=== PATIENT | female | born 1935 | race Caucasian/White ===

== ENCOUNTER 2016-06-29 21:27 | Inpatient (IN) | payer OTHER ==
[2016-06-29 22:00] VITALS: BMI 24.0
[2016-06-29 23:18] LABS: BASOPHIL 0.2 % (0-2.0); EOSINOPHIL 0.1 % (0-4.5); MCH 30.5 pg (25.7-33.7); MCHC 31.8 g/dl (32.0-36.0); MEAN CELL VOLUME 95.8 fl (80-96); MEAN PLT VOLUME 8.1 fl (7.5-11.1); NEUTROPHILS 76.8 % (42.8-82.8); PLATELET COUNT 431 K/MM3 (134-434); RDW 16.5 % (11.6-15.6); WHITE BLOOD COUNT 16.3 K/mm3 (4.0-10.0)
[2016-06-29 23:50] LABS: BILIRUBIN,TOTAL 0.3 mg/dL (0.2-1.0); CALCIUM 8.6 mg/dL (8.5-10.1); CREATININE 2.2 mg/dL (0.55-1.02); TOT PROT 7.7 g/dl (6.4-8.2)
[2016-06-29 23:56] LABS: C-REACTIVE PROTEIN 22.4 MG/DL (0.00-0.3)
[2016-06-30 00:54] LABS: ARTERIAL BLD GAS O2 SATURATION 97.9 % (90-98.9); ARTERIAL BLOOD GAS BASE EXCESS 2.4 meq/l (-2-2); ARTERIAL BLOOD GAS HCO3 26.3 meq/L (22-26); ARTERIAL BLOOD GAS PO2 93.3 mmHg (70-100); ARTERIAL BLOOD GAS pH 7.43 (7.35-7.45)
[2016-06-30 00:55] LABS: METHEMOGLOBIN 0.2 % (0.4-1.5)
[2016-06-30 00:56] LABS: ALLENS TEST POSITIVE; ART PUNCT SITE LEFT RADIAL; LPM/O2% 100%; PT. ON O2? YES; TYPE OF O2 NONREBREATHER
[2016-06-30 01:00] LABS: URINE APPEARANCE TURBID; URINE BILIRUBIN NEGATIVE (NEGATIVE); URINE BLOOD NEGATIVE (NEGATIVE); URINE COLOR YELLOW; URINE GLUCOSE (UA) 3+ (NEGATIVE); URINE KETONE NEGATIVE (NEGATIVE); URINE NITRITE NEGATIVE (NEGATIVE); URINE UROBILINOGEN NEGATIVE E.U./dl (0.2-1.0)
[2016-06-30 01:22] LABS: URINE LEUK ESTERASE 3+ (NEGATIVE); URINE PROTEIN 2+ (NEGATIVE)
[2016-06-30] MEDS ORDERED: LEVOFLOXACIN 750 MG IVPB 150 ML IVPB ONE ×2 (01:27→02:51)
[2016-06-30 02:07] LABS: URINE BACTERIA MANY /hpf (NONE SEEN); URINE RBC 61 /hpf (0-3); URINE WBC 2656 /hpf (3-5); YEAST FEW
--- NOTE | 2016-06-30 02:31 | PDOC ---
History of Present Illness - General Chief Complaint: SIRS, Suspected/Possible Stated Complaint: FEVER Time Seen by Provider: 06/29/16 21:56 History Source: EMS Exam Limitations: Clinical Condition - History of Present Illness Initial Comments: 06/30/16 02:27 80yo Female patient with extensive medical history which includes HTN, DM, HLD, GERD presents to ED via EMS from [facility]. Staff c/o fever 102.0 and hypoxia. Patient allegedly desaturated at nursing facility from high 90's to low 80s. Patient was put on O2 at 8Lpm, given Tylenol 650mg po and sent to ED for evaluation. Past History - Travel Traveled outside of the country in the last 30 days: No Close contact w/someone who was outside of country & ill: No - Past Medical History Allergies/Adverse Reactions: Allergies Allergy/AdvReac Type Severity Reaction Status Date / Time No Known Drug Allergies Allergy Verified 06/29/16 21:53 Home Medications: Ambulatory Orders Ascorbate Calcium [Vitamin C] 500 mg PO TID 03/24/16 Escitalopram Oxalate [Lexapro -] 10 mg PO DAILY 03/24/16 Metoprolol Succinate [Toprol XL -] 25 mg PO DAILY 03/24/16 Mirtazapine [Remeron -] 30 mg PO DAILY 03/24/16 Olanzapine [Zyprexa] 5 mg PO BID 03/24/16 Omeprazole 20 mg PO DAILY 03/24/16 Sennosides [Senna] 17.2 mg PO HS 03/24/16 Simvastatin 20 mg PO DAILY 03/24/16 Tamsulosin HCl [Flomax -] 0.4 mg PO DAILY 03/24/16 Vit B Cmplx 3/FA/Vit C/Biotin [Nephro-Rafael Rx Tablet] 1 each PO DAILY 03/24/16 Albuterol 2.5/Ipratropium 0.5 [Duoneb -] 1 amp NEB Q6H PRN #0 amp 04/20/16 Amino Acids/Protein Hydrolys [Prostat Sugar-Free Packet -] 30 ml PO BID@0800, 1730 packet 04/20/16 FENTANYL 12mcg PATCH [DURAGESIC 12mcg PATCH -] 1 patch TD Q72H patch.td72 MDD 1 04/20/16 Heparin - 5,000 unit SQ BID vial 04/20/16 Insulin Sliding Scale [Novolog Vial Sliding Scale -] 1 vial SQ ACHS units 04/20 Levofloxacin [Levaquin -] 250 mg PO DAILY tablet 04/20/16 Naph,Mb-Db/K pH,Mbdb [PHOS-NaK PACKET -] 1 packet PO BID pow 04/20/16 Oxycodone HCl [Roxicodone -] 5 mg PO BID PRN #0 tablet MDD 2 04/20/16 Sodium Bicarbonate - 650 mg PO BID tablet 04/20/16 Zinc Sulfate [Orazinc -] 220 mg PO DAILY capsule 04/20/16 Anemia: Yes Asthma: No Cancer: No Cardiac Disorders: No CVA: Yes COPD: No CHF: Yes Dementia: Yes Diabetes: Yes (iddm) GI Disorders: Yes HTN: Yes Hypercholesterolemia: Yes Kidney Stones: No (acute kidney failure) Psychiatric Problems: Yes (anxeity,agitation,depression) Seizures: No Thyroid Disease: Yes - Reproductive History Ectopic : No Polycystic Ovaries: No - Psycho/Social/Smoking Cessation Hx Anxiety: No Suicidal Ideation: No Smoking Status: No Smoking History: Never smoked Have you smoked in the past 12 months: No Number of Cigarettes Smoked Daily: 0 Information on smoking cessation initiated: No Hx Alcohol Use: No Drug/Substance Use Hx: No Substance Use Type: None Hx Substance Use Treatment: No Respiratory Specific PMHX - Complaint Specific PMHX Angina: No Bronchitis: No Pneumonia: Yes Pulmonary Embolus: No TB (Tuberculosis): No Review of Systems - Review of Systems Able to Perform ROS?: Yes Is the patient limited Albanian proficient: No Constitutional: Yes: Chills, Fever Respiratory: Yes: Cough. No: Shortness of Breath, Wheezing, Productive cough Cardiac (ROS): No: Chest Pain, Edema, Lightheadedness, Palpitations, Syncope, Chest Tightness ABD/GI: No: Diarrhea, Nausea, Vomiting : No: Dysuria Integumentary: No: Bruising, Erythema Neurological: No: Headache, Seizure, Dizziness All Other Systems: Reviewed and Negative *Physical Exam - Vital Signs Last Vital Signs Temp Pulse Resp BP Pulse Ox 99.2 F 101 H 16 127/61 97 06/29/16 21:53 06/29/16 21:53 06/29/16 21:53 06/29/16 21:53 06/29/16 21:53 - Physical Exam General Appearance: Yes: Moderate Distress. No: Apparent Distress, Mild Distress, Severe Distress Respiratory/Chest: positive: Rhonchi. negative: Respiratory Distress, Accessory Muscle Use, Labored Respiration, Rapid RR Cardiovascular: positive: Regular Rhythm, Regular Rate. negative: Edema, JVD, Murmur Gastrointestinal/Abdominal: positive: Normal Bowel Sounds, Soft. negative: Distended, Guarding, Rebound, Tenderness Musculoskeletal: positive: Normal Inspection. negative: CVA Tenderness Extremity: positive: Other (Bilateral BKA) Integumentary: positive: Dry, Warm, Pale Neurologic: positive: Alert ED Treatment Course - LABORATORY CBC & Chemistry Diagram: 06/29/16 22:40 06/29/16 22:40 - ADDITIONAL ORDERS Additional order review: Laboratory Results 06/30/16 06/30/16 06/29/16 00:49 00:43 22:40 Puncture Site Left radial ABG pH 7.43 ABG pCO2 at Pt Temp 40.2 ABG pO2 at Pt Temp 93.3 ABG HCO3 26.3 H ABG O2 Sat (Measured) 97.9 ABG O2 Content 12.4 L ABG Base Excess 2.4 H Alessandro Test Positive Carboxyhemoglobin 1.7 Methemoglobin 0.2 L O2 Delivery Device Nonrebreather Oxygen Flow Rate 100% PEEP 0.0 Sodium 145 Potassium 5.5 H D Chloride 107 Carbon Dioxide 28 D Anion Gap 10 BUN 58 H D Creatinine 2.2 H D Creat Clearance w eGFR 21.53 Random Glucose 480 H* D Lactic Acid Calcium 8.6 Total Bilirubin 0.3 D AST 18 D ALT 17 D Alkaline Phosphatase 125 H D C-Reactive Protein 22.4 H D Total Protein 7.7 D Albumin 2.0 L D Urine Color Yellow Urine Appearance Turbid Urine pH 6.0 Ur Specific [place] 1.013 Urine Protein 2+ H Urine Glucose (UA) 3+ H Urine Ketones Negative Urine Blood Negative Urine Nitrite Negative Urine Bilirubin Negative Urine Urobilinogen Negative Ur Leukocyte Esterase 3+ H 06/29/16 22:31 Puncture Site ABG pH ABG pCO2 at Pt Temp ABG pO2 at Pt Temp ABG HCO3 ABG O2 Sat (Measured) ABG O2 Content ABG Base Excess Alessandro Test Carboxyhemoglobin Methemoglobin O2 Delivery Device Oxygen Flow Rate PEEP Sodium Potassium Chloride Carbon Dioxide Anion Gap BUN Creatinine Creat Clearance w eGFR Random Glucose Lactic Acid 1.126 Calcium Total Bilirubin AST ALT Alkaline Phosphatase C-Reactive Protein Total Protein Albumin Urine Color Urine Appearance Urine pH Ur Specific [place] Urine Protein Urine Glucose (UA) Urine Ketones Urine Blood Urine Nitrite Urine Bilirubin Urine Urobilinogen Ur Leukocyte Esterase 06/29/16 22:40 RBC 2.74 L MCV 95.8 MCHC 31.8 L RDW 16.5 H D MPV 8.1 Neutrophils % 76.8 Lymphocytes % 18.7 Monocytes % 4.2 Eosinophils % 0.1 D Basophils % 0.2 D - RADIOLOGY Radiology Studies Ordered: Category Date Time Status CHEST X-RAY PORTABLE* [RAD] Stat Radiology 06/29/16 22:14 Taken *DC/Admit/Observation/Transfer Diagnosis at time of Disposition: Pneumonia Qualifiers: Pneumonia type: due to unspecified organism Laterality: left Lung location: lower lobe of lung Qualified Code(s): J18.1 - Lobar pneumonia, unspecified organism UTI (urinary tract infection) Qualifiers: Urinary tract infection type: acute cystitis Hematuria presence: without hematuria Qualified Code(s): N30.00 - Acute cystitis without hematuria - Discharge Dispostion Condition at time of disposition: Fair Admit: Yes
--- NOTE | 2016-06-30 02:49 | PDOC ---
*Physical Exam - Vital Signs Last Vital Signs Temp Pulse Resp BP Pulse Ox 99.2 F 101 H 16 127/61 97 06/29/16 21:53 06/29/16 21:53 06/29/16 21:53 06/29/16 21:53 06/29/16 21:53 ED Treatment Course - LABORATORY CBC & Chemistry Diagram: 06/29/16 22:40 06/29/16 22:40 - ADDITIONAL ORDERS Additional order review: Laboratory Results 06/30/16 06/30/16 06/29/16 00:49 00:43 22:40 Puncture Site Left radial ABG pH 7.43 ABG pCO2 at Pt Temp 40.2 ABG pO2 at Pt Temp 93.3 ABG HCO3 26.3 H ABG O2 Sat (Measured) 97.9 ABG O2 Content 12.4 L ABG Base Excess 2.4 H Alessandro Test Positive Carboxyhemoglobin 1.7 Methemoglobin 0.2 L O2 Delivery Device Nonrebreather Oxygen Flow Rate 100% PEEP 0.0 Sodium 145 Potassium 5.5 H D Chloride 107 Carbon Dioxide 28 D Anion Gap 10 BUN 58 H D Creatinine 2.2 H D Creat Clearance w eGFR 21.53 Random Glucose 480 H* D Lactic Acid Calcium 8.6 Total Bilirubin 0.3 D AST 18 D ALT 17 D Alkaline Phosphatase 125 H D C-Reactive Protein 22.4 H D Total Protein 7.7 D Albumin 2.0 L D Urine Color Yellow Urine Appearance Turbid Urine pH 6.0 Ur Specific [place] 1.013 Urine Protein 2+ H Urine Glucose (UA) 3+ H Urine Ketones Negative Urine Blood Negative Urine Nitrite Negative Urine Bilirubin Negative Urine Urobilinogen Negative Ur Leukocyte Esterase 3+ H 06/29/16 22:31 Puncture Site ABG pH ABG pCO2 at Pt Temp ABG pO2 at Pt Temp ABG HCO3 ABG O2 Sat (Measured) ABG O2 Content ABG Base Excess Alessandro Test Carboxyhemoglobin Methemoglobin O2 Delivery Device Oxygen Flow Rate PEEP Sodium Potassium Chloride Carbon Dioxide Anion Gap BUN Creatinine Creat Clearance w eGFR Random Glucose Lactic Acid 1.126 Calcium Total Bilirubin AST ALT Alkaline Phosphatase C-Reactive Protein Total Protein Albumin Urine Color Urine Appearance Urine pH Ur Specific [place] Urine Protein Urine Glucose (UA) Urine Ketones Urine Blood Urine Nitrite Urine Bilirubin Urine Urobilinogen Ur Leukocyte Esterase 06/29/16 22:40 RBC 2.74 L MCV 95.8 MCHC 31.8 L RDW 16.5 H D MPV 8.1 Neutrophils % 76.8 Lymphocytes % 18.7 Monocytes % 4.2 Eosinophils % 0.1 D Basophils % 0.2 D Medical Decision Making - Medical Decision Making 06/30/16 02:49 agree with care from [facility] *DC/Admit/Observation/Transfer Diagnosis at time of Disposition: Pneumonia, UTI (urinary tract infection) - Discharge Dispostion Condition at time of disposition: Fair
[2016-06-30] MEDS ORDERED: CEFTRIAXONE 2 GM in DEXTROSE 5%-WATER - 100 ML IVPB ONE (02:53)
[2016-06-30] MEDS ORDERED: ACETAMINOPHEN 650 MG SUPP.RECT PR ONE (02:53)
[2016-06-30] MEDS ORDERED: CEFTRIAXONE 100 ML IVPB ONE (04:01)
[2016-06-30] MEDS ORDERED: ACETAMINOPHEN 650 MG SUPP.RECT ONE ×2 (04:02→14:46)
[2016-06-30] MEDS ORDERED: oxyCODONE HCL 5 MG TABLET PO PRN (08:22)
[2016-06-30] MEDS ORDERED: ALBUTEROL SO4 2.5/IPRATROPIUM 0.5 INH SOL 3 ML VIAL.NEB. NEB PRN (08:22)
[2016-06-30] MEDS ORDERED: ACETAMINOPHEN 325 MG TABLET (FP) PO PRN (08:25)
--- NOTE | 2016-06-30 08:39 | HP ---
Admitting History and Physical - Admission History of Present Illness: 80yo Female patient with extensive medical history which includes HTN, DM, HLD, GERD presents to ED via EMS from [facility]. Staff c/o fever 102.0 and hypoxia. Patient allegedly desaturated at nursing facility from high 90's to low 80s. Patient was put on O2 at 8Lpm, given Tylenol 650mg po and sent to ED for evaluation. 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 Cardiovascular: Yes: CHF, HTN, Hyperlipdemia Pulmonary: Yes: COPD Gastrointestinal: Yes: GERD Renal/: Yes: Renal Inusuff Heme/Onc: Yes: Anemia Endocrine: Yes: Diabetes Mellitus - Smoking History Smoking history: Never smoked Have you smoked in the past 12 months: No Aproximately how many cigarettes per day: 0 - Alcohol/Substance Use Hx Alcohol Use: No - Social History History of Recent Travel: No Home Medications - Allergies Allergies/Adverse Reactions: Allergies Allergy/AdvReac Type Severity Reaction Status Date / Time No Known Drug Allergies Allergy Verified 06/29/16 21:53 - Home Medications Home Medications: Ambulatory Orders Ascorbate Calcium [Vitamin C] 500 mg PO TID 03/24/16 Mirtazapine [Remeron -] 30 mg PO DAILY 03/24/16 Omeprazole 20 mg PO DAILY 03/24/16 Sennosides [Senna] 17.2 mg PO HS 03/24/16 Simvastatin 20 mg PO DAILY 03/24/16 Tamsulosin HCl [Flomax -] 0.8 mg PO DAILY 03/24/16 Amino Acids/Protein Hydrolys [Prostat Sugar-Free Packet -] 30 ml PO BID@0800, 1730 packet 04/20/16 Sodium Bicarbonate - 650 mg PO BID tablet 04/20/16 Zinc Sulfate [Orazinc -] 220 mg PO DAILY capsule 04/20/16 Acetaminophen [Tylenol] 650 mg PO Q4H PRN 06/30/16 Collagenase Clostridium Hist. [Santyl -] 1 applic TP DAILY 06/30/16 Darbepoetin Joseph in Polysorbat [Aranesp] 25 mcg SQ TH 06/30/16 Ferrous Sulfate [Feosol] 325 mg PO TID 06/30/16 Insulin Glargine,Hum.rec.anlog [Lantus Solostar PEN -] 12 units SQ 0900 Albuterol 0.083% Nebulizer Elena [Ventolin 0.083% Nebulizer Soln -] 1 amp NEB QIDR amp 07/19/16 Bacitracin - [Bacitracin Topical Ointment -] 1 applic TP DAILY tube 07/19/16 Enoxaparin [Lovenox -] 50 mg SQ BID #60 mg 07/19/16 Insulin (Levemir) [Levemir Vial] 8 units SQ HS ml 07/19/16 Insulin Sliding Scale [Novolog Vial Sliding Scale -] 1 vial SQ ACHS units 07/19 Ipratropium 0.02% Nebulizer [Atrovent 0.02% Nebulizer -] 1 amp NEB Q6HPO amp Metoclopramide Oral Soln [Reglan Oral Solution -] 5 mg GT TIDAC #0 tab 07/19/16 Metoprolol Tartrate [Lopressor -] 50 mg GT BID #0 tablet 07/19/16 Metronidazole [Flagyl -] 500 mg PEG TID #0 tablet 07/19/16 Olanzapine [Zyprexa -] 5 mg GT BID #60 tablet 07/19/16 Physical Examination Vital Signs: Vital Signs Temperature 98.9 F 06/30/16 07:30 Pulse Rate 104 H 06/30/16 07:30 Respiratory Rate 19 06/30/16 07:30 Blood Pressure 134/102 06/30/16 07:30 O2 Sat by Pulse Oximetry (%) 100 06/30/16 07:30 Cardiovascular: Yes: Tachycardia, S1, S2 Respiratory: Yes: Diminished, Rhonchi Gastrointestinal: Yes: Normal Bowel Sounds, Soft Extremities: Yes: Amputation Neurological: Yes: Alert, Confusion Imaging - Results Chest X-ray: Report Reviewed Problem List - Problems (1) Pneumonia Assessment/Plan: F/U CXR ABX Code(s): J18.9 - PNEUMONIA, UNSPECIFIED ORGANISM Qualifiers: Qualified Code(s): J18.1 - Lobar pneumonia, unspecified organism (2) Fever Assessment/Plan: CULTURES ABX Code(s): R50.9 - FEVER, UNSPECIFIED (3) UTI (urinary tract infection) Assessment/Plan: ABX CULTURES Code(s): N39.0 - URINARY TRACT INFECTION, SITE NOT SPECIFIED Qualifiers: Qualified Code(s): N30.00 - Acute cystitis without hematuria (4) CKD (chronic kidney disease) Assessment/Plan: MONITOR Code(s): N18.9 - CHRONIC KIDNEY DISEASE, UNSPECIFIED (5) S/P bilateral below knee amputation Assessment/Plan: MONITOR Code(s): Z89.512 - ACQUIRED ABSENCE OF LEFT LEG BELOW KNEE Z89.511 - ACQUIRED ABSENCE OF RIGHT LEG BELOW KNEE (6) Decubitus ulcer Assessment/Plan: SACRAL--STAGE IV wound care on abx Code(s): L89.90 - PRESSURE ULCER OF UNSPECIFIED SITE, UNSPECIFIED STAGE
[2016-06-30] MEDS ORDERED: SODIUM CHLORIDE 0.45% 1,000 ML IV SCH (08:45)
[2016-06-30] MEDS: fentaNYL 12mcg/hr PATCH.TD72 TD SCH (08:55)
[2016-06-30] MEDS ORDERED: VANCOMYCIN 1,000 MG in DEXTROSE 5%-WATER - 250 ML IVPB ONE (09:08)
[2016-06-30] MEDS: ACETAMINOPHEN 650 MG SUPP.RECT PR PRN ×2 (09:10→15:05)
[2016-06-30] MEDS ORDERED: MEROPENEM 500 MG VIAL (RESTRICTED TO ID) IVPB SCH (09:15)
[2016-06-30] MEDS ORDERED: FENTANYL PATCH WASTE TD PRN (09:29)
--- NOTE | 2016-06-30 09:29 | PN ---
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 (short form) - Note 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: ID consult dictated fever sepsis GIANNI secondary to UTI infected sacral ulcer based on prior cultures vancomycin doripenem cultures blood and urine surgical consult for infected sacral ulcer renal sonogram Problem List - Problems (1) Sepsis Code(s): A41.9 - SEPSIS, UNSPECIFIED ORGANISM Qualifiers: Sepsis type: Escherichia coli Qualified Code(s): A41.51 - Sepsis due to Escherichia coli [E. coli] (2) UTI (urinary tract infection) Code(s): N39.0 - URINARY TRACT INFECTION, SITE NOT SPECIFIED Qualifiers: Urinary tract infection type: acute cystitis Hematuria presence: without hematuria Qualified Code(s): N30.00 - Acute cystitis without hematuria (3) Infected decubitus ulcer Code(s): L89.90 - PRESSURE ULCER OF UNSPECIFIED SITE, UNSPECIFIED STAGE
[2016-06-30] MEDS: MEROPENEM 500 MG in DEXTROSE 5%-WATER - 100 ML IVPB SCH ×2 (09:40→22:34)
[2016-06-30] MEDS ORDERED: PIPERACILLIN/TAZOB 3.375 GM/50 ML PRE-DOCKED IVPB SCH (10:00)
[2016-06-30] MEDS: TAMSULOSIN HCL 0.4 MG CAP.ER.24H (FP) PO SCH (10:34)
[2016-06-30] MEDS: PANTOPRAZOLE 20 MG TABLET (FP) PO SCH (10:35)
[2016-06-30] MEDS: SODIUM BICARBONATE 650 MG TABLET PO SCH ×2 (10:35→22:35)
[2016-06-30] MEDS: ZINC SULFATE 220 MG CAPSULE (FP) PO SCH (10:35)
[2016-06-30] MEDS: METOPROLOL SUCCINATE 25 MG TAB.SR.24H (FP) PO SCH (10:35)
[2016-06-30] MEDS: OLANZapine 5 MG TABLET PO SCH ×2 (10:36→22:35)
[2016-06-30] MEDS: HEPARIN NA (PORCINE) 5,000 UNITS/ML 1ML VIAL SQ SCH ×2 (10:40→22:34)
[2016-06-30] MEDS: IPRATROPIUM BR 0.02% 0.5 MG/2.5 ML VIAL.NEB. NEB SCH ×2 (12:05→18:41)
[2016-06-30] MEDS: ALBUTEROL SO4 0.083% IH SOL 2.5 MG/3 ML VIAL.NEB. NEB SCH ×2 (12:05→18:41)
[2016-06-30] MEDS ORDERED: ALBUTEROL SO4 2.5/IPRATROPIUM 0.5 INH SOL 3 ML VIAL.NEB. NEB ONE (12:06)
[2016-06-30] MEDS: ASCORBIC ACID 500 MG TABLET (FP) PO SCH ×2 (14:17→22:35)
--- NOTE | 2016-06-30 16:30 | CON.PULM ---
Consult Consult Specialty:: PULMONARY Referred by:: SADE Reason for Consultation:: FEVER/HYPOXEMIA - History of Present Illness History of Present Illness: 80yo Female patient with extensive medical history which includes HTN, DM, HLD, GERD presents to ED via EMS from [facility]. Staff c/o fever 102.0 and hypoxia. Patient allegedly desaturated at nursing facility from high 90's to low 80s. Patient was put on O2 at 8Lpm, given Tylenol 650mg po and sent to ED for evaluation. 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 Cardio/Vascular: Yes: CHF, HTN, Hyperlipdemia Pulmonary: Yes: COPD Gastrointestinal: Yes: GERD Renal/: Yes: Renal Inusuff Heme/Onc: Yes: Anemia Endocrine: Yes: Diabetes Mellitus - Alcohol/Substance Use Hx Alcohol Use: No - Smoking History Smoking history: Never smoked Have you smoked in the past 12 months: No Aproximately how many cigarettes per day: 0 - Social History Usual Living Arrangement: Correction History of Recent Travel: No Home Medications - Allergies Allergies/Adverse Reactions: Allergies Allergy/AdvReac Type Severity Reaction Status Date / Time No Known Drug Allergies Allergy Verified 06/29/16 21:53 - Home Medications Home Medications: Ambulatory Orders Ascorbate Calcium [Vitamin C] 500 mg PO TID 03/24/16 Escitalopram Oxalate [Lexapro -] 10 mg PO DAILY 03/24/16 Metoprolol Succinate [Toprol XL -] 25 mg PO DAILY 03/24/16 Mirtazapine [Remeron -] 30 mg PO DAILY 03/24/16 Olanzapine [Zyprexa] 5 mg PO BID 03/24/16 Omeprazole 20 mg PO DAILY 03/24/16 Sennosides [Senna] 17.2 mg PO HS 03/24/16 Simvastatin 20 mg PO DAILY 03/24/16 Tamsulosin HCl [Flomax -] 0.4 mg PO DAILY 03/24/16 Vit B Cmplx 3/FA/Vit C/Biotin [Nephro-Rafael Rx Tablet] 1 each PO DAILY 03/24/16 Albuterol 2.5/Ipratropium 0.5 [Duoneb -] 1 amp NEB Q6H PRN #0 amp 01/24/17 Amino Acids/Protein Hydrolys [Prostat Sugar-Free Packet -] 30 ml PO BID@0800, 1730 packet 04/20/16 FENTANYL 12mcg PATCH [DURAGESIC 12mcg PATCH -] 1 patch TD Q72H patch.td72 MDD 1 04/20/16 Insulin Sliding Scale [Novolog Vial Sliding Scale -] 1 vial SQ ACHS units 04/20 Levofloxacin [Levaquin -] 250 mg PO DAILY tablet 04/20/16 Naph,Mb-Db/K pH,Mbdb [PHOS-NaK PACKET -] 1 packet PO BID pow 04/20/16 Oxycodone HCl [Roxicodone -] 5 mg PO BID PRN #0 tablet MDD 2 04/20/16 Sodium Bicarbonate - 650 mg PO BID tablet 04/20/16 Zinc Sulfate [Orazinc -] 220 mg PO DAILY capsule 04/20/16 Family Disease History - Family Disease History Family History: Unable to Obtain Review of Systems Unable to obtain ROS, reason: UNABLE Physical Exam Vital Sings: Vital Signs Temperature 102.7 F H 06/30/16 15:02 Pulse Rate 114 H 06/30/16 15:02 Respiratory Rate 23 06/30/16 15:02 Blood Pressure 122/55 06/30/16 15:02 O2 Sat by Pulse Oximetry (%) 99 06/30/16 15:02 Constitutional: Yes: Cachectic, Moderate Distress, Thin Eyes: Yes: EOM Intact HENT: Yes: Normocephalic Neck: Yes: Trachea Midline Cardiovascular: Yes: Tachycardia, Murmur (holosystolic murmur), S1, S2 Respiratory: Yes: Rhonchi (scattered bilaterally) Gastrointestinal: Yes: Soft Extremities: Yes: Amputation (bilateral bka with granulation tissue noted on left stump) Neurological: Yes: Other (poorly responsive) Labs: ABG Results ABG pH 7.43 (7.35-7.45) 06/30/16 00:43 ABG pCO2 at Pt Temp 40.2 mmHg (35-45) 06/30/16 00:43 ABG pO2 at Pt Temp 93.3 mmHg (70-100) 06/30/16 00:43 ABG HCO3 26.3 meq/L (22-26) H 06/30/16 00:43 ABG O2 Sat (Measured) 97.9 % (90-98.9) 06/30/16 00:43 ABG O2 Content 12.4 % vol (15-22) L 06/30/16 00:43 ABG Base Excess 2.4 meq/l (-2-2) H 06/30/16 00:43 rest reviewed Imaging - Results Chest X-ray: Image Reviewed EKG: Report Reviewed Problem List - Problems (1) Infected decubitus ulcer Code(s): L89.90 - PRESSURE ULCER OF UNSPECIFIED SITE, UNSPECIFIED STAGE (2) Pneumonia Code(s): J18.9 - PNEUMONIA, UNSPECIFIED ORGANISM Qualifiers: Pneumonia type: due to unspecified organism Laterality: left Lung location: lower lobe of lung Qualified Code(s): J18.1 - Lobar pneumonia, unspecified organism (3) UTI (urinary tract infection) Code(s): N39.0 - URINARY TRACT INFECTION, SITE NOT SPECIFIED Qualifiers: Urinary tract infection type: acute cystitis Hematuria presence: without hematuria Qualified Code(s): N30.00 - Acute cystitis without hematuria (4) ARF (acute renal failure) Code(s): N17.9 - ACUTE KIDNEY FAILURE, UNSPECIFIED Qualifiers: Acute renal failure type: unspecified Qualified Code(s): N17.9 - Acute kidney failure, unspecified (5) Altered mental status Code(s): R41.82 - ALTERED MENTAL STATUS, UNSPECIFIED (6) Anemia Code(s): D64.9 - ANEMIA, UNSPECIFIED Qualifiers: Anemia type: iron deficiency Assessment/Plan LIKELY DECUBITI/ SOURCE FOR SEPSIS LESS LIKELY FACILITY ACQUIRED PNEUMONIA MULTIPLE MEDICAL PROBLEMS OUTLINED AGREE WITH PANCULTURE ANTIBIOTICS O2 SUPPLEMENTATION/KEEP SAT GREATER THAN 90% WOUND CARE/BRONCHODILATORS REQUIRED WILL FOLLOW THANK YOU Racheal ULND MD
[2016-06-30] MEDS: AMINO ACIDS/PROTEIN HYDROLYS 30 ML LIQUID.PKT PO SCH (18:38)
[2016-06-30] MEDS: IBUPROFEN 800 MG/8 ML IJ IVPB PRN (18:43)
--- NOTE | 2016-06-30 19:09 | CONS ---
DATE OF CONSULTATION: DATE OF DICTATION: 06/30/2016 INFECTIOUS DISEASE CONSULTATION REQUESTING PHYSICIAN: Rashawn Garcia M.D. CONSULTING PHYSICIAN: Kaylee Peters M.D. HISTORY: The patient was seen in the emergency room. History was from the emergency room chart and from the senior care transfer records. 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 She was discharged to the senior care April 20. She has been there since that time per the senior care records that were sent. She was recently started on Levaquin on the at the senior care for possible pneumonia. She is now transferred with fever and hypoxia. Chest x-ray was done in the emergency room which was unremarkable. There was no left-sided atelectasis. Right lung was unchanged from March. She had a Gonzales catheter placed and was noted to have pyuria. This was all early this morning. She was given Rocephin and Levaquin in the emergency room. I am asked to see her for a fever. She is quite hot when I saw her. I asked them to repeat her temperature which was 103. She is hemodynamically stable. She is unable to give any history at this time. ALLERGIES: She has no known drug allergies. MEDICATION: Her medications from the senior care includes oral Levaquin as well as Orazinc, vitamin B complex, Nephro-Rafael, Flomax, sodium bicarbonate, simvastatin , senna, oxycodone, omeprazole, Zyprexa, Remeron, Toprol XL, insulin, fentanyl patch, lexapro, and albuterol nebulizer. PAST MEDICAL HISTORY: Notable for history of diabetes, dementia, congestive heart failure, hypertension, stroke, GERD, chronic renal insufficiency. She underwent debridement of necrotic ulcers March 30, 2016. On April 07, 2016, she had a left BKA done, and then April 14 she underwent washout of the left BKA and a right BKA. FAMILY HISTORY: Noncontributory. SOCIAL HISTORY: She is residing at the senior care. PHYSICAL EXAMINATION: Vital signs: Temperature 103.3 rectally, pulse is 90, blood pressure 135/72, respiratory rate 22. She is saturating 96% on a nonrebreather mask. HEENT: Normocephalic. Eyes are anicteric. She has dry mucosa. Neck: Supple. Lungs: Diminished breath sounds at the bases. Heart: Regular rate and rhythm. Abdomen: Soft. Gonzales is draining purulent material in the bag, there is tremendous sediment. The Gonzales was placed in the emergency room. Her extremities, both BKA sites, one of them on the right side is slightly open, but there is no drainage, there is no associated erythema. LABORATORY: White count 16, hemoglobin 8.3, platelets 431. Her BUN and creatinine are 58 and 2.2; they were 13 and 0.7 when she left. Lactic acid is 1.1 with a glucose of 480. Her urinalysis has 2656 white cells. Her last urine culture prior to being discharged grew an E. coli that was resistant to Levaquin and piperacillin tazobactam. As well the wound culture grew a Morganella. Chest x-ray reveals weak inspiration and bibasilar changes. IMPRESSION: In summary, this is a 80-year-old woman admitted with sepsis on the basis of urinary tract infection when Gonzales was placed she had purulent urine, which I suspect is a source. As well, addendum to the physical exam, she has a stage 3 to stage 4 sacral ulcer that has purulent discharge and appears infected. Blood cultures have been ordered. She received ceftriaxone and Levaquin. I would switch her at this time to doripenem and vancomycin. With the piperacillin tazobactam resistant E. coli, I do have concerns for antibiotic resistance. Would suggest we have surgery, evaluate her for her infected sacral ulcer as well. She also has acute kidney injury and is receiving intravenous fluid hydration. Further recommendations to follow based on her clinical course. KAYLEE PETERS M.D. [id number] DEJA
[2016-06-30] MEDS ORDERED: MIRTAZAPINE 15 MG TABLET (FP) ONE (21:15)
[2016-06-30] MEDS ORDERED: SODIUM CHLORIDE 1,000 ML IV SCH (22:00)
[2016-06-30] MEDS: ATORVASTATIN CA 10 MG TABLET (FP) PO SCH (22:34)
[2016-06-30] MEDS: SENNOSIDES 8.6MG TABLET (FP) PO SCH (22:35)
[2016-06-30] MEDS: MIRTAZAPINE 30 MG TABLET (FP) PO SCH (22:35)
[2016-06-30] MEDS: INSULIN DETEMIR 100 UNITS/ML MDV SQ SCH (23:05)
[2016-06-30] MEDS: INSULIN SLIDING SCALE (NOVOLOG) 1 VIAL SQ SCH (23:09)
--- NOTE | 2016-06-30 23:37 | CONSULT ---
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 EMS: Yes: CVA, Dementia Cardio/Vascular: Yes: CHF, HTN, Hyperlipdemia Pulmonary: Yes: COPD Gastrointestinal: Yes: GERD Renal/: Yes: Renal Inusuff Endocrine: Yes: Diabetes Mellitus - Alcohol/Substance Use Hx Alcohol Use: No - Smoking History Smoking history: Never smoked Have you smoked in the past 12 months: No Aproximately how many cigarettes per day: 0 - Social History Usual Living Arrangement: Senior Care History of Recent Travel: No Home Medications - Allergies Allergies/Adverse Reactions: Allergies Allergy/AdvReac Type Severity Reaction Status Date / Time No Known Drug Allergies Allergy Verified 06/29/16 21:53 - Home Medications Home Medications: Ambulatory Orders Ascorbate Calcium [Vitamin C] 500 mg PO TID 03/24/16 Escitalopram Oxalate [Lexapro -] 10 mg PO DAILY 03/24/16 Metoprolol Succinate [Toprol XL -] 25 mg PO DAILY 03/24/16 Mirtazapine [Remeron -] 30 mg PO DAILY 03/24/16 Olanzapine [Zyprexa] 7.5 mg PO DAILY 03/24/16 Omeprazole 20 mg PO DAILY 03/24/16 Sennosides [Senna] 17.2 mg PO HS 03/24/16 Simvastatin 20 mg PO DAILY 03/24/16 Tamsulosin HCl [Flomax -] 0.8 mg PO DAILY 03/24/16 Vit B Cmplx 3/FA/Vit C/Biotin [Nephro-Rafael Rx Tablet] 1 each PO DAILY 03/24/16 Albuterol 2.5/Ipratropium 0.5 [Duoneb -] 1 amp NEB Q6H PRN #0 amp 04/20/16 Amino Acids/Protein Hydrolys [Prostat Sugar-Free Packet -] 30 ml PO BID@0800, 1730 packet 04/20/16 FENTANYL 12mcg PATCH [DURAGESIC 12mcg PATCH -] 1 patch TD Q72H patch.td72 MDD 1 04/20/16 Insulin Sliding Scale [Novolog Vial Sliding Scale -] 1 vial SQ ACHS units 04/20 Levofloxacin [Levaquin -] 250 mg PO DAILY tablet 04/20/16 Oxycodone HCl [Roxicodone -] 5 mg PO BID PRN #0 tablet MDD 2 04/20/16 Sodium Bicarbonate - 650 mg PO BID tablet 04/20/16 Zinc Sulfate [Orazinc -] 220 mg PO DAILY capsule 04/20/16 Acetaminophen [Tylenol] 650 mg PO Q4H PRN 06/30/16 Collagenase Clostridium Hist. [Santyl -] 1 applic TP DAILY 06/30/16 Darbepoetin Joseph in Polysorbat [Aranesp] 25 mcg SQ TH 06/30/16 Ferrous Sulfate [Feosol] 325 mg PO TID 06/30/16 Insulin Glargine,Hum.rec.anlog [Lantus Solostar PEN (NF)] 7 units SQ HS Insulin Glargine,Hum.rec.anlog [Lantus Solostar PEN (NF)] 12 units SQ 0900 06/30 Menthol/Zinc Oxide [Calmoseptine Ointment] 0 gm TP QID 06/30/16 Potassium Phosphate,Monobasic [K-Phos Original] 500 mg PO DAILY 06/30/16 Prochlorperazine Maleate [Compazine] 5 mg PO BID 06/30/16 Physical Exam Vital Signs: Vital Signs Temperature 102.2 F H 06/30/16 21:44 Pulse Rate 100 H 06/30/16 22:13 Respiratory Rate 22 06/30/16 22:13 Blood Pressure 102/50 06/30/16 22:13 O2 Sat by Pulse Oximetry (%) 99 06/30/16 18:35 Constitutional: Yes: Calm Eyes: Yes: EOM Intact HENT: Yes: Normocephalic Neck: Yes: Trachea Midline Cardiovascular: Yes: Regular Rate and Rhythm Respiratory: Yes: CTA Bilaterally Gastrointestinal: Yes: Normal Bowel Sounds ...Rectal Exam: Yes: Deferred Renal/: Yes: WNL Breast(s): Yes: WNL Musculoskeletal: Yes: WNL, Muscle Weakness Extremities: Yes: WNL Edema: No Peripheral Pulses WNL: Yes Neurological: Yes: Alert, Confusion, Weakness Labs: CBC, BMP 06/30/16 21:49 Assessment/Plan Current Active Problems Infected decubitus ulcer (Acute) Pneumonia (Acute) UTI (urinary tract infection) (Acute) iddm ckd,dehydration hypovolemia insulin ressistant Abnormal Lab Results 06/29/16 06/29/16 06/30/16 22:40 22:40 00:43 WBC 16.3 H D RBC 2.74 L Hgb 8.3 L Hct 26.2 L MCHC 31.8 L RDW 16.5 H D ABG HCO3 26.3 H ABG O2 Content 12.4 L ABG Base Excess 2.4 H Methemoglobin 0.2 L Potassium 5.5 H D BUN 58 H D Creatinine 2.2 H D Random Glucose 480 H* D Alkaline Phosphatase 125 H D C-Reactive Protein 22.4 H D Albumin 2.0 L D Urine Protein Urine Glucose (UA) Ur Leukocyte Esterase 06/30/16 06/30/16 00:49 21:49 WBC RBC Hgb Hct MCHC RDW ABG HCO3 ABG O2 Content ABG Base Excess Methemoglobin Potassium BUN Creatinine Random Glucose 724 H* D Alkaline Phosphatase C-Reactive Protein Albumin Urine Protein 2+ H Urine Glucose (UA) 3+ H Ur Leukocyte Esterase 3+ H plan: bgm qid novolog coverage levemir 15 units bid id wound with iv antibiotics
[2016-07-01] MEDS: ALBUTEROL SO4 0.083% IH SOL 2.5 MG/3 ML VIAL.NEB. NEB SCH ×4 (00:27→18:27)
[2016-07-01] MEDS: IPRATROPIUM BR 0.02% 0.5 MG/2.5 ML VIAL.NEB. NEB SCH ×4 (00:27→18:27)
[2016-07-01] MEDS: ACETAMINOPHEN 1000 MG/100 ML VIAL (NON FORMULARY) IVPB PRN (00:42)
--- NOTE | 2016-07-01 01:32 | CONSULT ---
Consult Consult Specialty:: Pulm/CC - History of Present Illness History of Present Illness: Pt is a 80yr old woman with PMHx including HTN, HLD, DM dementia, GERD, recurrent MDR UTIs, wounds and bilateral BKA. She presents to the ER from [facility] with CC of fever to 102 and hypoxia to 80s/90s. Initial labs notable for WBC 16.3, BUN/Cr 58/2.2 (Cr was 0.7 on 04/20/16) serum glucose 480. Pt initially on the floor for management of urosepsis/sepsis from sacral wound. Request made ~0100 for transfer for hyperglycemia to [facility]. Upon assessment pt is nonverbal, manual BP 72/40, HR 90s (sinus on tele), temp 101.7 rectal s/p 1g IV Tylenol. 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 Cardio/Vascular: Yes: CHF, HTN, Hyperlipdemia Pulmonary: Yes: COPD Gastrointestinal: Yes: GERD Renal/: Yes: Renal Inusuff Endocrine: Yes: Diabetes Mellitus - Alcohol/Substance Use Hx Alcohol Use: No - Smoking History Smoking history: Never smoked Have you smoked in the past 12 months: No Aproximately how many cigarettes per day: 0 - Social History Usual Living Arrangement: Skilled Nursing History of Recent Travel: No Home Medications - Allergies Allergies/Adverse Reactions: Allergies Allergy/AdvReac Type Severity Reaction Status Date / Time No Known Drug Allergies Allergy Verified 06/29/16 21:53 - Home Medications Home Medications: Ambulatory Orders Ascorbate Calcium [Vitamin C] 500 mg PO TID 03/24/16 Escitalopram Oxalate [Lexapro -] 10 mg PO DAILY 03/24/16 Metoprolol Succinate [Toprol XL -] 25 mg PO DAILY 03/24/16 Mirtazapine [Remeron -] 30 mg PO DAILY 03/24/16 Olanzapine [Zyprexa] 7.5 mg PO DAILY 03/24/16 Omeprazole 20 mg PO DAILY 03/24/16 Sennosides [Senna] 17.2 mg PO HS 03/24/16 Simvastatin 20 mg PO DAILY 03/24/16 Tamsulosin HCl [Flomax -] 0.8 mg PO DAILY 03/24/16 Vit B Cmplx 3/FA/Vit C/Biotin [Nephro-Rafael Rx Tablet] 1 each PO DAILY 03/24/16 Albuterol 2.5/Ipratropium 0.5 [Duoneb -] 1 amp NEB Q6H PRN #0 amp 04/20/16 Amino Acids/Protein Hydrolys [Prostat Sugar-Free Packet -] 30 ml PO BID@0800, 1730 packet 04/20/16 FENTANYL 12mcg PATCH [DURAGESIC 12mcg PATCH -] 1 patch TD Q72H patch.td72 MDD 1 04/20/16 Insulin Sliding Scale [Novolog Vial Sliding Scale -] 1 vial SQ ACHS units 04/20 Levofloxacin [Levaquin -] 250 mg PO DAILY tablet 04/20/16 Oxycodone HCl [Roxicodone -] 5 mg PO BID PRN #0 tablet MDD 2 04/20/16 Sodium Bicarbonate - 650 mg PO BID tablet 04/20/16 Zinc Sulfate [Orazinc -] 220 mg PO DAILY capsule 04/20/16 Acetaminophen [Tylenol] 650 mg PO Q4H PRN 06/30/16 Collagenase Clostridium Hist. [Santyl -] 1 applic TP DAILY 06/30/16 Darbepoetin Joseph in Polysorbat [Aranesp] 25 mcg SQ TH 06/30/16 Ferrous Sulfate [Feosol] 325 mg PO TID 06/30/16 Insulin Glargine,Hum.rec.anlog [Lantus Solostar PEN (NF)] 7 units SQ HS Insulin Glargine,Hum.rec.anlog [Lantus Solostar PEN (NF)] 12 units SQ 0900 06/30 Menthol/Zinc Oxide [Calmoseptine Ointment] 0 gm TP QID 06/30/16 Potassium Phosphate,Monobasic [K-Phos Original] 500 mg PO DAILY 06/30/16 Prochlorperazine Maleate [Compazine] 5 mg PO BID 06/30/16 Family Disease History - Family Disease History Family History: Unable to Obtain Review of Systems Unable to obtain ROS, reason: ANGI Physical Exam Vital Signs: Vital Signs Period Temp Pulse Resp BP Sys/Chávez Pulse Ox Last 24 Hr 98.9 F-103.3 F 90-119 19-34 72-149/40-102 96-100 Intake & Output 06/28/16 06/29/16 06/30/16 07/01/16 23:59 23:59 23:59 23:59 Intake Total 800 Output Total 1050 Balance -250 Weight 140 lb 140 lb 0.002 oz Constitutional: Yes: Moderate Distress, Other (diffuse tremors) Eyes: Yes: Other (resistant to exam) HENT: Yes: Atraumatic Cardiovascular: Yes: Murmur (2/6 systolic), S1, S2, Other (pt with rt upper anterior chest firm and palpable mass, possibly metal?) Respiratory: Yes: On Nasal O2, Tachypnea. 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 Now in the ICU for management of septic shock secondary to UTI/sacral wound, GIANNI and hyperglycemia. Pulm: -o2 support for sat >94 -f/u stat abg -f/u repeat chest xray -nebulizers ID: -f/u cultures -ID following -Antibiotics per ID -Isolation precautions -f/u lactic acid -f/u vanc trough Renal: GIANNI, Cr was 0.7 on 04/20 now >2 -IVF as tolerated -Replete electrolytes prn -I/Os -f/u repeat UA Endo: -f/u repeat chemistry pt s/p levemir and novolog -BGM -Glycemic control, possible insulin drip -f/u A1c Cardiac -Pt might need pressors if not responsive to IVF -Hold antihypertensives for now in setting of hypotension -f/u enzymes -Monitor h/h, transfuse prn Neuro -Pain management, pt on 12mcg Fentanyl patch, consider 25mcg as pt appears in significant distress with multiple sources of chronic pain Int: -Wound care Prophylactic -DVT -PPI -Bowel regiment in setting of opioid use
[2016-07-01] MEDS ORDERED: SODIUM CHLORIDE 1,000 ML IV STA (01:46)
[2016-07-01 01:57] LABS: BASOPHIL 0.1 % (0-2.0); MCH 30.5 pg (25.7-33.7); MCHC 30.6 g/dl (32.0-36.0); MEAN CELL VOLUME 99.7 fl (80-96); MEAN PLT VOLUME 8.4 fl (7.5-11.1); NEUTROPHILS 85.4 % (42.8-82.8); PLATELET COUNT 378 K/MM3 (134-434); RDW 17.3 % (11.6-15.6); WHITE BLOOD COUNT 17.4 K/mm3 (4.0-10.0)
[2016-07-01 01:58] LABS: URINE APPEARANCE TURBID; URINE BILIRUBIN NEGATIVE (NEGATIVE); URINE COLOR YELLOW; URINE GLUCOSE (UA) 3+ (NEGATIVE); URINE KETONE TRACE (NEGATIVE); URINE NITRITE NEGATIVE (NEGATIVE); URINE UROBILINOGEN NEGATIVE E.U./dl (0.2-1.0)
[2016-07-01 02:12] LABS: URINE BLOOD 1+ (NEGATIVE); URINE LEUK ESTERASE 3+ (NEGATIVE); URINE PROTEIN 2+ (NEGATIVE)
[2016-07-01 02:14] LABS: URINE BACTERIA MODERATE /hpf (NONE SEEN); URINE RBC 110 /hpf (0-3); URINE WBC 2064 /hpf (3-5)
[2016-07-01 02:15] LABS: INR 1.08 (0.82-1.09); PROTHROMBIN TIME (PATIENT) 11.9 SEC (9.98-11.88)
[2016-07-01 02:23] LABS: ALBUMIN 1.8 g/dl (3.4-5.0); BILIRUBIN,TOTAL 0.2 mg/dL (0.2-1.0); CALCIUM 8.6 mg/dL (8.5-10.1); CREATININE 2.2 mg/dL (0.55-1.02); TOT PROT 7.4 g/dl (6.4-8.2)
[2016-07-01 02:27] LABS: MAGNESIUM 2.5 mg/dL (1.8-2.4); PHOSPHOROUS 3.6 mg/dL (2.5-4.9)
[2016-07-01 02:29] LABS: TROPONIN I 0.06 ng/ml (0.00-0.05)
[2016-07-01] MEDS ORDERED: INSULIN REGULAR 100 UNITS in SODIUM CHLORIDE 99 ML IVPB SCH (02:30)
[2016-07-01] MEDS ORDERED: SODIUM CHLORIDE 0.45% 1,000 ML IV SCH (02:45)
[2016-07-01] MEDS ORDERED: SODIUM CHLORIDE 0.45% 1,000 ML with POTASSIUM CHLORIDE 20 MEQ IVPB SCH (02:45)
[2016-07-01 02:49] LABS: ARTERIAL BLD GAS O2 SATURATION 96.1 % (90-98.9); ARTERIAL BLOOD GAS BASE EXCESS 0.8 meq/l (-2-2); ARTERIAL BLOOD GAS HCO3 25.6 meq/L (22-26); ARTERIAL BLOOD GAS PO2 83.4 mmHg (70-100); ARTERIAL BLOOD GAS pH 7.38 (7.35-7.45)
[2016-07-01 02:50] LABS: ALLENS TEST POSITIVE; ART PUNCT SITE RIGHT BRACHIAL; LPM/O2% 4L; PT. ON O2? YES; TYPE OF O2 NASAL
[2016-07-01] MEDS ORDERED: HEMOQUE TEST 1 EACH EACH ONE (02:58)
[2016-07-01] MEDS ORDERED: SODIUM CHLORIDE 500 ML IV STA (03:15)
--- NOTE | 2016-07-01 04:36 | PN ---
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 (short form) - Note 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: Pt continues to be hypotensive (89/45)despite ~2L IVF since 2199, febrile to 101.4 with lactic acid 1.126 -->4.289. Attempted to reach daughter (next of kin on file Sulma Tong [phone]) x3, no answer for consent for central line placement for pressors. Case discussed with Dr. Garcia who states that the last time he spoke with the pt's family they wanted all interventions and agrees with central line placement.
--- NOTE | 2016-07-01 05:48 | PROC ---
Central Line Insertion Indication: Sepsis, Vasopressor Risks and Benefits Explained: (Placed emergently) Consent on Chart: No Central Line: Triple Lumen Catheter Anesthesia: 1% Lidocaine Sterile Technique: Yes Ultrasound Guided Assistance: Yes Position: Right Internal Jugular Post Insertion: Yes: Bilateral Breath Sounds, Bilateral Chest Expansion, Chest X-Ray Ordered Sterile Dressing Applied: Yes Remarks: + blood flow and flush x3. Unable to reach pt's next of kin on file bowen Tong [phone] (call placed x3, no answer). Case discussed with pt' s admitting provider, Dr. Garcia who agreed with emergent placement.
[2016-07-01] MEDS ORDERED: NOREPINEPHRINE BITARTRATE 4 MG/4 ML ML IV ONE (05:59)
[2016-07-01] MEDS ORDERED: NOREPINEPHRINE BITARTRATE 8,000 MCG in SODIUM CHLORIDE 0.45% 992 ML IV SCH (06:00)
[2016-07-01 06:47] LABS: ALBUMIN 1.7 g/dl (3.4-5.0); CALCIUM 8.3 mg/dL (8.5-10.1)
[2016-07-01 06:52] LABS: BILIRUBIN,TOTAL 0.2 mg/dL (0.2-1.0); CREATININE 1.8 mg/dL (0.55-1.02); TOT PROT 6.6 g/dl (6.4-8.2)
[2016-07-01 06:57] LABS: BASOPHIL 0.2 % (0-2.0); MCH 30.2 pg (25.7-33.7); MCHC 31.6 g/dl (32.0-36.0); MEAN CELL VOLUME 95.6 fl (80-96); NEUTROPHILS 78.2 % (42.8-82.8); PLATELET COUNT 328 K/MM3 (134-434)
[2016-07-01 06:58] LABS: TROPONIN I 0.07 ng/ml (0.00-0.05)
[2016-07-01] MEDS: INSULIN SLIDING SCALE (NOVOLOG) 1 VIAL SQ SCH ×4 (07:00→22:45)
[2016-07-01] MEDS: ASCORBIC ACID 500 MG TABLET (FP) PO SCH ×3 (07:06→22:53)
--- NOTE | 2016-07-01 07:49 | PN ---
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, Physician History of Present Illness: PT REMAINED FEBRILE AND BECAME HYPOTENSIVE AND WITH HYPERGLYCEMIA - Current Medication List Current Medications: Active Medications Acetaminophen (Tylenol Suppository -) 650 mg GA Q6H PRN PRN Reason: FEVER OR PAIN Last Admin: 06/30/16 15:05 Dose: 650 mg Acetaminophen (Ofirmev Injection -) 1,000 mg IVPB Q6H PRN Last Admin: 07/01/16 00:42 Dose: 1,000 mg Albuterol Sulfate (Ventolin 0.083% Nebulizer Soln -) 1 amp NEB Q6HPO LARRY Last Admin: 07/01/16 06:00 Dose: 1 amp Albuterol/Ipratropium (Duoneb -) 1 amp NEB Q6H PRN PRN Reason: SHORTNESS OF BREATH Amino Acids (Prosource No Carb Liquid Pkt) 30 ml PO BID@0800,1730 [facility] Last Admin: 06/30/16 18:38 Dose: Not Given Ascorbic Acid (Vitamin C -) 500 mg PO TID [facility] Last Admin: 07/01/16 07:06 Dose: Not Given Atorvastatin Calcium (Lipitor -) 10 mg PO HS [facility] Last Admin: 06/30/16 22:34 Dose: Not Given Fentanyl (Duragesic 12mcg Patch -) 1 patch TD Q72H [facility] Last Admin: 06/30/16 08:55 Dose: Not Given Heparin Sodium (Porcine) (Heparin -) 5,000 unit SQ BID [facility] Last Admin: 06/30/16 22:34 Dose: 5,000 unit Meropenem 500 mg/ Dextrose 100 mls @ 200 mls/hr IVPB BID [facility] Last Admin: 06/30/16 22:34 Dose: 200 mls/hr Insulin Human Regular 100 (units/ Sodium Chloride) 100 mls @ 6.35 mls/hr IVPB TITR LARRY; 0.1 UNITS/KG/HR PRN Reason: Protocol Last Admin: 07/01/16 02:44 Dose: 7 mls/hr Potassium Chloride 20 meq/ (Sodium Chloride) 1,010 mls @ 150 mls/hr IVPB ASDIR [facility] Last Admin: 07/01/16 03:01 Dose: 150 mls/hr Norepinephrine Bitartrate 8, (000 mcg/ Sodium Chloride) 1,000 mls @ 37.5 mls/ hr IV TITR LARRY; 5 MCG/MIN PRN Reason: Protocol Last Admin: 07/01/16 05:55 Dose: 22.5 mls/hr Ibuprofen (Caldolor Injection -) 400 mg IVPB Q6H PRN PRN Reason: FEVER Last Admin: 06/30/16 18:43 Dose: 400 mg Insulin Aspart (Novolog Vial Sliding Scale -) 1 vial SQ ACHS LARRY PRN Reason: Protocol Last Admin: 06/30/16 23:09 Dose: 14 units Insulin Detemir (Levemir Vial) 15 units SQ BID [facility] Last Admin: 06/30/16 23:05 Dose: 15 units Ipratropium [place] (Atrovent 0.02% Nebulizer -) 1 amp NEB Q6HPO [facility] Last Admin: 07/01/16 06:00 Dose: 1 amp Metoprolol Succinate (Toprol Xl -) 25 mg PO DAILY [facility] Last Admin: 06/30/16 10:35 Dose: Not Given Mirtazapine (Remeron -) 30 mg PO HS [facility] Last Admin: 06/30/16 22:35 Dose: Not Given Miscellaneous (Duragesic Patch Waste) 1 each TD PRN PRN Olanzapine (Zyprexa -) 5 mg PO BID [facility] Last Admin: 06/30/16 22:35 Dose: Not Given Oxycodone HCl (Roxicodone -) 5 mg PO BID PRN PRN Reason: PAIN Pantoprazole Sodium (Protonix -) 20 mg PO DAILY [facility] Last Admin: 06/30/16 10:35 Dose: Not Given Potassium Phos/Sodium Phos (Phos-Nak Packet -) 1 packet PO BID [facility] Senna (Senna -) 1 tab PO HS [facility] Last Admin: 06/30/16 22:35 Dose: Not Given Sodium Bicarbonate (Sodium Bicarbonate -) 650 mg PO BID [facility] Last Admin: 06/30/16 22:35 Dose: Not Given Tamsulosin HCl (Flomax -) 0.4 mg PO DAILY@0830 [facility] Last Admin: 06/30/16 10:34 Dose: Not Given Zinc Sulfate (Orazinc -) 220 mg PO DAILY [facility] Last Admin: 06/30/16 10:35 Dose: Not Given - Objective Vital Signs: Vital Signs Temperature 100.9 F H 07/01/16 06:00 Pulse Rate 101 H 07/01/16 06:00 Respiratory Rate 24 07/01/16 06:00 Blood Pressure 132/53 07/01/16 06:00 O2 Sat by Pulse Oximetry (%) 98 07/01/16 02:03 Cardiovascular: Yes: S1, S2 Respiratory: Yes: Diminished. No: Rales, Wheezes Gastrointestinal: Yes: Normal Bowel Sounds, Soft Extremities: Yes: Amputation Edema: No Wound/Incision: Yes: Other (SACRAL) Labs: CBC, BMP 07/01/16 05:45 07/01/16 05:45 INR, PTT INR 1.08 (0.82-1.09) 07/01/16 01:45 Problem List - Problems (1) Septic shock Assessment/Plan: PROBABLY URINARY SOURCE IVF IV ABX PRESSERS ID ON BOARD Code(s): A41.9 - SEPSIS, UNSPECIFIED ORGANISM R65.21 - SEVERE SEPSIS WITH SEPTIC SHOCK (2) UTI (urinary tract infection) Assessment/Plan: ABX CULTURES ID ON BOARD Code(s): N39.0 - URINARY TRACT INFECTION, SITE NOT SPECIFIED Qualifiers: Urinary tract infection type: acute cystitis Hematuria presence: without hematuria Qualified Code(s): N30.00 - Acute cystitis without hematuria (3) Fever Code(s): R50.9 - FEVER, UNSPECIFIED (4) Pneumonia Assessment/Plan: F/U CXR NOTED--??? PNA ABX Code(s): J18.9 - PNEUMONIA, UNSPECIFIED ORGANISM Qualifiers: Pneumonia type: due to unspecified organism Laterality: left Lung location: lower lobe of lung Qualified Code(s): J18.1 - Lobar pneumonia, unspecified organism (5) CKD (chronic kidney disease) Assessment/Plan: MONITOR Code(s): N18.9 - CHRONIC KIDNEY DISEASE, UNSPECIFIED (6) S/P bilateral below knee amputation Assessment/Plan: MONITOR Code(s): Z89.512 - ACQUIRED ABSENCE OF LEFT LEG BELOW KNEE Z89.511 - ACQUIRED ABSENCE OF RIGHT LEG BELOW KNEE (7) Decubitus ulcer Assessment/Plan: wound care on abx Code(s): L89.90 - PRESSURE ULCER OF UNSPECIFIED SITE, UNSPECIFIED STAGE (8) Anemia Assessment/Plan: REPEAT TRANSFUSE Code(s): D64.9 - ANEMIA, UNSPECIFIED Qualifiers: Anemia type: iron deficiency (9) Diabetes Assessment/Plan: MONITOR B/S ENDO CONSULT Code(s): E11.9 - TYPE 2 DIABETES MELLITUS WITHOUT COMPLICATIONS Qualifiers: Diabetes mellitus type: type 2
--- NOTE | 2016-07-01 07:49 | PN ---
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, Physician Chief Complaint: ID Meropenem day 1 Levophed - Current Medication List Current Medications: Active Medications Acetaminophen (Tylenol Suppository -) 650 mg [place] Q6H PRN PRN Reason: FEVER OR PAIN Last Admin: 06/30/16 15:05 Dose: 650 mg Acetaminophen (Ofirmev Injection -) 1,000 mg IVPB Q6H PRN Last Admin: 07/01/16 00:42 Dose: 1,000 mg Albuterol Sulfate (Ventolin 0.083% Nebulizer Soln -) 1 amp NEB Q6HPO LARRY Last Admin: 07/01/16 06:00 Dose: 1 amp Albuterol/Ipratropium (Duoneb -) 1 amp NEB Q6H PRN PRN Reason: SHORTNESS OF BREATH Amino Acids (Prosource No Carb Liquid Pkt) 30 ml PO BID@0800,1730 [facility] Last Admin: 06/30/16 18:38 Dose: Not Given Ascorbic Acid (Vitamin C -) 500 mg PO TID [facility] Last Admin: 07/01/16 07:06 Dose: Not Given Atorvastatin Calcium (Lipitor -) 10 mg PO HS [facility] Last Admin: 06/30/16 22:34 Dose: Not Given Fentanyl (Duragesic 12mcg Patch -) 1 patch TD Q72H [facility] Last Admin: 06/30/16 08:55 Dose: Not Given Heparin Sodium (Porcine) (Heparin -) 5,000 unit SQ BID [facility] Last Admin: 06/30/16 22:34 Dose: 5,000 unit Meropenem 500 mg/ Dextrose 100 mls @ 200 mls/hr IVPB BID [facility] Last Admin: 06/30/16 22:34 Dose: 200 mls/hr Insulin Human Regular 100 (units/ Sodium Chloride) 100 mls @ 6.35 mls/hr IVPB TITR LARRY; 0.1 UNITS/KG/HR PRN Reason: Protocol Last Admin: 07/01/16 02:44 Dose: 7 mls/hr Potassium Chloride 20 meq/ (Sodium Chloride) 1,010 mls @ 150 mls/hr IVPB ASDIR [facility] Last Admin: 07/01/16 03:01 Dose: 150 mls/hr Norepinephrine Bitartrate 8, (000 mcg/ Sodium Chloride) 1,000 mls @ 37.5 mls/ hr IV TITR LARRY; 5 MCG/MIN PRN Reason: Protocol Last Admin: 07/01/16 05:55 Dose: 22.5 mls/hr Ibuprofen (Caldolor Injection -) 400 mg IVPB Q6H PRN PRN Reason: FEVER Last Admin: 06/30/16 18:43 Dose: 400 mg Insulin Aspart (Novolog Vial Sliding Scale -) 1 vial SQ ACHS LARRY PRN Reason: Protocol Last Admin: 06/30/16 23:09 Dose: 14 units Insulin Detemir (Levemir Vial) 15 units SQ BID [facility] Last Admin: 06/30/16 23:05 Dose: 15 units Ipratropium [place] (Atrovent 0.02% Nebulizer -) 1 amp NEB Q6HPO [facility] Last Admin: 07/01/16 06:00 Dose: 1 amp Metoprolol Succinate (Toprol Xl -) 25 mg PO DAILY [facility] Last Admin: 06/30/16 10:35 Dose: Not Given Mirtazapine (Remeron -) 30 mg PO HS [facility] Last Admin: 06/30/16 22:35 Dose: Not Given Miscellaneous (Duragesic Patch Waste) 1 each TD PRN PRN Olanzapine (Zyprexa -) 5 mg PO BID [facility] Last Admin: 06/30/16 22:35 Dose: Not Given Oxycodone HCl (Roxicodone -) 5 mg PO BID PRN PRN Reason: PAIN Pantoprazole Sodium (Protonix -) 20 mg PO DAILY [facility] Last Admin: 06/30/16 10:35 Dose: Not Given Potassium Phos/Sodium Phos (Phos-Nak Packet -) 1 packet PO BID [facility] Senna (Senna -) 1 tab PO [facility] Last Admin: 06/30/16 22:35 Dose: Not Given Sodium Bicarbonate (Sodium Bicarbonate -) 650 mg PO BID [facility] Last Admin: 06/30/16 22:35 Dose: Not Given Tamsulosin HCl (Flomax -) 0.4 mg PO DAILY@0830 [facility] Last Admin: 06/30/16 10:34 Dose: Not Given Zinc Sulfate (Orazinc -) 220 mg PO DAILY [facility] Last Admin: 06/30/16 10:35 Dose: Not Given - Objective Vital Signs: Vital Signs Temperature 100.9 F H 07/01/16 06:00 Pulse Rate 101 H 07/01/16 06:00 Respiratory Rate 24 07/01/16 06:00 Blood Pressure 132/53 07/01/16 06:00 O2 Sat by Pulse Oximetry (%) 98 07/01/16 02:03 Constitutional: Yes: Moderate Distress Cardiovascular: Yes: S1, S2 Respiratory: Yes: WNL, Regular, CTA Bilaterally Gastrointestinal: Yes: Soft. No: Tenderness Extremities: Yes: Other (BKA) Integumentary: Yes: Other (Decubitus) Labs: CBC, BMP 07/01/16 05:45 07/01/16 05:45 INR, PTT INR 1.08 (0.82-1.09) 07/01/16 01:45 Assessment/Plan Microbiology Laboratory Tests 07/01/16 07/01/16 07/01/16 01:45 01:45 01:45 WBC Hct Plt Count INR 1.08 Oxygen Flow Rate Creatinine Lactic Acid 4.289 H* Ur Leukocyte Esterase 3+ H Urine RBC 110 Urine WBC 2064 07/01/16 07/01/16 07/01/16 02:38 05:45 05:45 WBC 19.0 H Hct 22.2 L Plt Count 328 INR Oxygen Flow Rate 4l Creatinine 1.8 H Lactic Acid Ur Leukocyte Esterase Urine RBC Urine WBC 07/01/16 05:45 WBC Hct Plt Count INR Oxygen Flow Rate Creatinine Lactic Acid 2.527 H* Ur Leukocyte Esterase Urine RBC Urine WBC Assessment Sepsis syndrome urinary source Plan Continue antibiotic pending c/s Pressor support Discussed with Dr Radha Galaviz MD
[2016-07-01 07:59] LABS: ARTERIAL BLD GAS O2 SATURATION 99.7 % (90-98.9); ARTERIAL BLOOD GAS BASE EXCESS 1.9 meq/l (-2-2); ARTERIAL BLOOD GAS HCO3 26.4 meq/L (22-26)
[2016-07-01] MEDS: AMINO ACIDS/PROTEIN HYDROLYS 30 ML LIQUID.PKT PO SCH ×2 (08:00→22:17)
[2016-07-01 08:07] LABS: ALLENS TEST POSITIVE; ART PUNCT SITE RIGHT RADIAL; LPM/O2% 100%; PT. ON O2? YES; TYPE OF O2 NON-REBREATHER MASK
[2016-07-01 08:28] LABS: MCH 30.1 pg (25.7-33.7); MCHC 31.6 g/dl (32.0-36.0); MEAN CELL VOLUME 95.3 fl (80-96); MEAN PLT VOLUME 7.7 fl (7.5-11.1); PLATELET COUNT 341 K/MM3 (134-434); RDW 16.1 % (11.6-15.6)
[2016-07-01] MEDS ORDERED: POTASSIUM CHLORIDE 20 MEQ in DEXTROSE 5%-WATER - 1,000 ML IVPB SCH (08:30)
[2016-07-01] MEDS: TAMSULOSIN HCL 0.4 MG CAP.ER.24H (FP) PO SCH (09:00)
[2016-07-01] MEDS: OLANZapine 5 MG TABLET PO SCH ×2 (10:00→22:18)
[2016-07-01] MEDS: HEPARIN NA (PORCINE) 5,000 UNITS/ML 1ML VIAL SQ SCH (10:00)
[2016-07-01] MEDS: METOPROLOL SUCCINATE 25 MG TAB.SR.24H (FP) PO SCH (10:00)
[2016-07-01] MEDS: PANTOPRAZOLE 20 MG TABLET (FP) PO SCH (10:00)
[2016-07-01] MEDS: INSULIN DETEMIR 100 UNITS/ML MDV SQ SCH ×2 (10:00→22:45)
[2016-07-01] MEDS: SODIUM BICARBONATE 650 MG TABLET PO SCH ×2 (10:00→22:18)
[2016-07-01] MEDS: MEROPENEM 500 MG in DEXTROSE 5%-WATER - 100 ML IVPB SCH ×2 (10:30→22:26)
[2016-07-01] MEDS: ZINC SULFATE 220 MG CAPSULE (FP) PO SCH (11:08)
--- NOTE | 2016-07-01 12:14 | PN ---
Addendum entered and electronically signed by Alton Simpson PA 07/01/16 17:58: Vascular duplex: RLE DVT in the prox SFX --> popliteal vein LLE DVT in the common femoral vein Started on heparin drip Original Note: 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 (short form) - Note 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: WOUND CARE CONSULT - Felipe Rivers DO Seen and examined. Admitted with urosepsis and sacral ulcer. Currently on Levophed 3mcg for pressure support. Patient well know to surgery service. recently had b/l LE bka. Last Vital Signs Temp Pulse Resp BP Pulse Ox 99.8 F H 109 H 24 125/85 98 07/01/16 10:00 07/01/16 12:00 07/01/16 12:00 07/01/16 12:00 07/01/16 12:02 CBC, BMP 07/01/16 08:00 07/01/16 05:45 Microbiology 06/30/16 09:25 Blood - Peripheral Venous Blood Culture - Preliminary NO GROWTH OBTAINED AFTER 24 HOURS, INCUBATION TO CONTINUE FOR 4 DAYS. 06/30/16 09:25 Blood - Peripheral Venous Blood Culture - Preliminary NO GROWTH OBTAINED AFTER 24 HOURS, INCUBATION TO CONTINUE FOR 4 DAYS. 06/30/16 00:49 Urine - Urine Gonzales Urine Culture - Preliminary Non Lactose Fermenting Gnb PE General: nad Sacrum: Stage 4 ulcer with fibrous base. Circumfrential undermining most noteable laterally about 7.5 cm. Soft tissue maceration around sacral region. No foul odor ementaing from wound. LE: Rt bka unremarkable Lt bka with opening to incision along medial aspect. ~1.5 x 1.5 cm. clean. Problem List - Problems (1) Decubitus ulcer Assessment/Plan: Stage 4 sacral ulcer [place] application of santyl to base of wound. Phyoplex to tissue around sacral ulcer. Cover with 4x4 dressing daily. Offload all pressure sensitive areas Frequent repositioning Could benefit from VAC. MRI to r/o osteo Monitor WBC Above discussed with Dr. Rivers and agrees Code(s): L89.90 - PRESSURE ULCER OF UNSPECIFIED SITE, UNSPECIFIED STAGE (2) S/P bilateral below knee amputation Code(s): Z89.512 - ACQUIRED ABSENCE OF LEFT LEG BELOW KNEE Z89.511 - ACQUIRED ABSENCE OF RIGHT LEG BELOW KNEE (3) Sepsis Code(s): A41.9 - SEPSIS, UNSPECIFIED ORGANISM Qualifiers: Sepsis type: Escherichia coli Qualified Code(s): A41.51 - Sepsis due to Escherichia coli [E. coli]
[2016-07-01] MEDS ORDERED: D5-1/2NS+20 MEQ KCL - 1,000 ML IV SCH (12:30)
[2016-07-01] MEDS ORDERED: SODIUM CHLORIDE 0.45%/POT 1,000 ML IV SCH (12:30)
--- NOTE | 2016-07-01 12:34 | EKG ---
Test Reason : Blood Pressure : / mmHG Vent. Rate : 095 BPM Atrial Rate : 095 BPM P-R Int : 106 ms QRS Dur : 084 ms QT Int : 364 ms P-R-T Axes : 009 -13 137 degrees QTc Int : 457 ms SINUS RHYTHM WITH SHORT [place] WITH PREMATURE SUPRAVENTRICULAR COMPLEXES AND WITH OCCASIONAL PREMATURE VENTRICULAR COMPLEXES ABNORMAL ECG WHEN COMPARED WITH ECG OF 24-MAR-2016 19:08, PREMATURE SUPRAVENTRICULAR COMPLEXES ARE NOW PRESENT T WAVE INVERSION NOW EVIDENT IN ANTEROLATERAL LEADS Confirmed by NICOLA MAS MD ([id number]) on 07/01/2016 12:33:56 PM Referred By: DEVORA CORDON Confirmed By:NICOLA MAS MD
[2016-07-01 12:49] LABS: HYPOCHROMIA 1+
--- NOTE | 2016-07-01 12:49 | PN ---
Teaching Attending Note Name of Resident: Lorenzo Vang ATTENDING PHYSICIAN STATEMENT I saw and evaluated the patient. I reviewed the resident's note and discussed the case with the resident. I agree with the resident's findings and plan as documented. SUBJECTIVE: Pt seen and examined in the ICU. Remains on levophed gtt, now on BiPAP for worsening respiratory distress. Febrile overnight. OBJECTIVE: Last Vital Signs Temp Pulse Resp BP Pulse Ox 99.8 F H 109 H 24 125/85 98 07/01/16 10:00 07/01/16 12:00 07/01/16 12:00 07/01/16 12:00 07/01/16 12:02 Intake & Output 06/28/16 06/29/16 06/30/16 07/01/16 23:59 23:59 23:59 23:59 Intake Total 1310 2746 Output Total 1050 800 Balance 260 1946 Weight 140 lb 140 lb 0.002 oz 104 lb 11.513 oz Gen: tachypneic on BiPAP Heart: tachycardic, regular Lung: distant breath sounds Abd: soft, nontender Ext: bilateral BKA CBC, BMP 07/01/16 08:00 07/01/16 05:45 Active Medications Acetaminophen (Tylenol Suppository -) 650 mg CA Q6H PRN PRN Reason: FEVER OR PAIN Last Admin: 06/30/16 15:05 Dose: 650 mg Acetaminophen (Ofirmev Injection -) 1,000 mg IVPB Q6H PRN Last Admin: 07/01/16 00:42 Dose: 1,000 mg Albuterol Sulfate (Ventolin 0.083% Nebulizer Soln -) 1 amp NEB Q6HPO [facility] Last Admin: 07/01/16 11:15 Dose: 1 amp Albuterol/Ipratropium (Duoneb -) 1 amp NEB Q6H PRN PRN Reason: SHORTNESS OF BREATH Amino Acids (Prosource No Carb Liquid Pkt) 30 ml PO BID@0800,1730 [facility] Last Admin: 07/01/16 08:00 Dose: Not Given Ascorbic Acid (Vitamin C -) 500 mg PO TID [facility] Last Admin: 07/01/16 07:06 Dose: Not Given Atorvastatin Calcium (Lipitor -) 10 mg PO HS [facility] Last Admin: 06/30/16 22:34 Dose: Not Given Fentanyl (Duragesic 12mcg Patch -) 1 patch TD Q72H [facility] Last Admin: 06/30/16 08:55 Dose: Not Given Heparin Sodium (Porcine) (Heparin -) 5,000 unit SQ BID [facility] Last Admin: 07/01/16 10:00 Dose: 5,000 unit Meropenem 500 mg/ Dextrose 100 mls @ 200 mls/hr IVPB BID [facility] Last Admin: 07/01/16 10:30 Dose: 200 mls/hr Norepinephrine Bitartrate 8, (000 mcg/ Sodium Chloride) 1,000 mls @ 37.5 mls/ hr IV TITR LARRY; 5 MCG/MIN PRN Reason: Protocol Last Admin: 07/01/16 05:55 Dose: 22.5 mls/hr Potassium Chloride/Sodium Chloride (1/2ns+20meq Kcl) 1,000 mls @ 75 mls/hr IV ASDIR LARRY Potassium Chloride/Dextrose/Sod Cl (D5-1/2ns+20 Meq Kcl -) 1,000 mls @ 75 mls/ hr IV ASDIR LARRY Ibuprofen (Caldolor Injection -) 400 mg IVPB Q6H PRN PRN Reason: FEVER Last Admin: 06/30/16 18:43 Dose: 400 mg Insulin Aspart (Novolog Vial Sliding Scale -) 1 vial SQ ACHS [facility] PRN Reason: Protocol Last Admin: 07/01/16 07:00 Dose: Not Given Insulin Detemir (Levemir Vial) 15 units SQ BID [facility] Last Admin: 07/01/16 10:00 Dose: Not Given Ipratropium [place] (Atrovent 0.02% Nebulizer -) 1 amp NEB Q6HPO [facility] Last Admin: 07/01/16 11:15 Dose: 1 amp Metoprolol Succinate (Toprol Xl -) 25 mg PO DAILY [facility] Last Admin: 06/30/16 10:35 Dose: Not Given Mirtazapine (Remeron -) 30 mg PO HS [facility] Last Admin: 06/30/16 22:35 Dose: Not Given Miscellaneous (Duragesic Patch Waste) 1 each TD PRN PRN Olanzapine (Zyprexa -) 5 mg PO BID [facility] Last Admin: 07/01/16 10:00 Dose: Not Given Oxycodone HCl (Roxicodone -) 5 mg PO BID PRN PRN Reason: PAIN Pantoprazole Sodium (Protonix -) 20 mg PO DAILY [facility] Last Admin: 07/01/16 10:00 Dose: Not Given Senna (Senna -) 1 tab PO HS [facility] Last Admin: 06/30/16 22:35 Dose: Not Given Sodium Bicarbonate (Sodium Bicarbonate -) 650 mg PO BID [facility] Last Admin: 07/01/16 10:00 Dose: Not Given Tamsulosin HCl (Flomax -) 0.4 mg PO DAILY@0830 [facility] Last Admin: 07/01/16 09:00 Dose: Not Given Zinc Sulfate (Orazinc -) 220 mg PO DAILY [facility] Last Admin: 07/01/16 11:08 Dose: Not Given ASSESSMENT AND PLAN: Acute Hypoxic Respiratory Failure UTI Sacral Decubitus Ulcer Infection Septic Shock Lactic Acidosis Acute Kidney Injury HTN DM Dementia - continue antibiotics - f/u cultures - IVF - titrate levophed gtt to maintain MAP >65 - monitor urine output, creatinine - trend lactate - glucose control - BiPAP to assist in work of breathing - titrate FiO2 to keep SpO2 >90% - may need intubation if no improvement with BiPAP - discuss with family goals of care, advanced directives - NPO - DVT/GI prophylaxis - ICU monitoring critical care time spent in reviewing chart, evaluating patient and formulating plan 45 min
[2016-07-01 13:19] LABS: MCH 29.6 pg (25.7-33.7); MCHC 31.3 g/dl (32.0-36.0); MEAN CELL VOLUME 94.6 fl (80-96); MEAN PLT VOLUME 7.9 fl (7.5-11.1); PLATELET COUNT 335 K/MM3 (134-434); RDW 16.2 % (11.6-15.6); WHITE BLOOD COUNT 18.6 K/mm3 (4.0-10.0)
[2016-07-01 13:48] LABS: CALCIUM 8.4 mg/dL (8.5-10.1); COCKROFT - GAULT 19.55; CREATININE 1.7 mg/dL (0.55-1.02)
[2016-07-01] MEDS ORDERED: HEPARIN NA (PORCINE) 5,000 UNITS/ML 1ML VIAL IVPUSH PRN (14:36)
--- NOTE | 2016-07-01 14:40 | PN ---
Physical Exam: SUBJECTIVE: Patient seen and examined at bed side in ICU. patient in acute reparatory distress. per PCP patient is in normal base line mental status. in Rigors, fever, leukocytosis, hypotensive, Levophed 3mcg Bilateral DVT started on heparin drip. OBJECTIVE: Vital Signs Period Temp Pulse Resp BP Sys/Chávez Pulse Ox Last 24 Hr 99.8 F-103.1 F 88-119 20-34 72-160/40-95 92-100 GENERAL: The patient is awake, alert, and not oriented, in respratory distress acute distress, on bipap. rigors HEAD: Normal with no signs of trauma. EYES: PERRL, extraocular movements intact, sclera anicteric, conjunctiva clear. No ptosis. ENT: Ears normal, nares patent, oropharynx clear without exudates, moist mucous membranes. NECK: Trachea midline, full range of motion, supple. LUNGS: distent heart sounds, decreases air intake at bases, no wheezes, no crackles, no accessory muscle use. HEART: tachy rate and regular rhythm, S1, S2 without murmur, rub or gallop. ABDOMEN: Soft, nontender, nondistended, hypoactive bowel sounds, no guarding, no rebound, no hepatosplenomegaly, no masses. Gonzales intact white/yellow urine EXTREMITIES: Bilateral BKA, NEUROLOGICAL: no facial asymmetry, nonverbal, alert, responds to stimuli, gait not observed. PSYCH: Normal mood, normal affect. 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, Laboratory Results - last 24 hr 06/30/16 06/30/16 06/30/16 21:49 21:52 23:44 WBC RBC Hgb Hct MCV MCHC RDW Plt Count MPV Neutrophils % Lymphocytes % Monocytes % Eosinophils % Basophils % Band Neutrophils Differential Comment Reactive Lymphocytes Hypochromic-Microcytic Basophilic Stippling Morphology Comment INR PTT (Actin FS) Puncture Site ABG pH ABG pCO2 at Pt Temp ABG pO2 at Pt Temp ABG HCO3 ABG O2 Sat (Measured) ABG O2 Content ABG Base Excess Alessandro Test O2 Delivery Device Oxygen Flow Rate PEEP Sodium Potassium Chloride Carbon Dioxide Anion Gap BUN Creatinine Creat Clearance w eGFR POC Glucometer > 600 Random Glucose 724 H* D Hemoglobin A1c % 9.5 H D Lactic Acid Calcium Phosphorus Magnesium Total Bilirubin AST ALT Alkaline Phosphatase Creatine Kinase Troponin I B-Natriuretic Peptide Total Protein Albumin Urine Color Urine Appearance Urine pH Ur Specific [place] Urine Protein Urine Glucose (UA) Urine Ketones Urine Blood Urine Nitrite Urine Bilirubin Urine Urobilinogen Ur Leukocyte Esterase Urine RBC Urine WBC Urine Bacteria Random Vancomycin Blood Type Antibody Screen Antibody Identification Crossmatch 07/01/16 07/01/16 07/01/16 00:29 01:45 01:45 WBC 17.4 H RBC 2.48 L Hgb 7.6 L Hct 24.7 L MCV 99.7 H MCHC 30.6 L RDW 17.3 H Plt Count 378 MPV 8.4 Neutrophils % 85.4 H Lymphocytes % 11.0 D Monocytes % 3.5 L Eosinophils % 0.0 D Basophils % 0.1 Band Neutrophils Differential Comment Reactive Lymphocytes Hypochromic-Microcytic Basophilic Stippling Morphology Comment INR 1.08 PTT (Actin FS) 31.0 D Puncture Site ABG pH ABG pCO2 at Pt Temp ABG pO2 at Pt Temp ABG HCO3 ABG O2 Sat (Measured) ABG O2 Content ABG Base Excess Alessandro Test O2 Delivery Device Oxygen Flow Rate PEEP Sodium Potassium Chloride Carbon Dioxide Anion Gap BUN Creatinine Creat Clearance w eGFR POC Glucometer > 600 Random Glucose Hemoglobin A1c % Lactic Acid Calcium Phosphorus Magnesium Total Bilirubin AST ALT Alkaline Phosphatase Creatine Kinase Troponin I B-Natriuretic Peptide Total Protein Albumin Urine Color Urine Appearance Urine pH Ur Specific [place] Urine Protein Urine Glucose (UA) Urine Ketones Urine Blood Urine Nitrite Urine Bilirubin Urine Urobilinogen Ur Leukocyte Esterase Urine RBC Urine WBC Urine Bacteria Random Vancomycin Blood Type Antibody Screen Antibody Identification Crossmatch 07/01/16 07/01/16 07/01/16 01:45 01:45 01:45 WBC RBC Hgb Hct MCV MCHC RDW Plt Count MPV Neutrophils % Lymphocytes % Monocytes % Eosinophils % Basophils % Band Neutrophils Differential Comment Reactive Lymphocytes Hypochromic-Microcytic Basophilic Stippling Morphology Comment INR PTT (Actin FS) Puncture Site ABG pH ABG pCO2 at Pt Temp ABG pO2 at Pt Temp ABG HCO3 ABG O2 Sat (Measured) ABG O2 Content ABG Base Excess Alessandro Test O2 Delivery Device Oxygen Flow Rate PEEP Sodium 151 H Potassium 3.8 D Chloride 111 H Carbon Dioxide 28 Anion Gap 12 BUN 65 H Creatinine 2.2 H Creat Clearance w eGFR 21.53 POC Glucometer Random Glucose 572 H* D Hemoglobin A1c % Lactic Acid 4.289 H* Calcium 8.6 Phosphorus 3.6 D Magnesium 2.5 H D Total Bilirubin 0.2 D AST 13 L D ALT 14 Alkaline Phosphatase 91 D Creatine Kinase 95 Troponin I 0.06 H B-Natriuretic Peptide Total Protein 7.4 Albumin 1.8 L Urine Color Urine Appearance Urine pH Ur Specific [place] Urine Protein Urine Glucose (UA) Urine Ketones Urine Blood Urine Nitrite Urine Bilirubin Urine Urobilinogen Ur Leukocyte Esterase Urine RBC Urine WBC Urine Bacteria Random Vancomycin Blood Type Antibody Screen Antibody Identification Crossmatch 07/01/16 07/01/16 07/01/16 01:45 01:45 01:45 WBC RBC Hgb Hct MCV MCHC RDW Plt Count MPV Neutrophils % Lymphocytes % Monocytes % Eosinophils % Basophils % Band Neutrophils Differential Comment Reactive Lymphocytes Hypochromic-Microcytic Basophilic Stippling Morphology Comment INR PTT (Actin FS) Puncture Site ABG pH ABG pCO2 at Pt Temp ABG pO2 at Pt Temp ABG HCO3 ABG O2 Sat (Measured) ABG O2 Content ABG Base Excess Alessandro Test O2 Delivery Device Oxygen Flow Rate PEEP Sodium Potassium Chloride Carbon Dioxide Anion Gap BUN Creatinine Creat Clearance w eGFR POC Glucometer Random Glucose Hemoglobin A1c % Lactic Acid Calcium Phosphorus Magnesium Total Bilirubin AST ALT Alkaline Phosphatase Creatine Kinase Troponin I B-Natriuretic Peptide 6743.82 H Total Protein Albumin Urine Color Yellow Urine Appearance Turbid Urine pH 5.0 Ur Specific [place] 1.022 Urine Protein 2+ H Urine Glucose (UA) 3+ H Urine Ketones Trace H Urine Blood 1+ H Urine Nitrite Negative Urine Bilirubin Negative Urine Urobilinogen Negative Ur Leukocyte Esterase 3+ H Urine RBC 110 Urine WBC 2064 Urine Bacteria Moderate Random Vancomycin Blood Type O POSITIVE Antibody Screen Positive H Antibody Identification WARM [employer]IMM[employer] HEMO ANEMIA Crossmatch See Detail 07/01/16 07/01/16 07/01/16 02:38 03:26 04:45 WBC RBC Hgb Hct MCV MCHC RDW Plt Count MPV Neutrophils % Lymphocytes % Monocytes % Eosinophils % Basophils % Band Neutrophils Differential Comment Reactive Lymphocytes Hypochromic-Microcytic Basophilic Stippling Morphology Comment INR PTT (Actin FS) Puncture Site Right brachial ABG pH 7.38 ABG pCO2 at Pt Temp 44.8 ABG pO2 at Pt Temp 83.4 ABG HCO3 25.6 ABG O2 Sat (Measured) 96.1 ABG O2 Content 11.4 L ABG Base Excess 0.8 Alessandro Test Positive O2 Delivery Device Nasal Oxygen Flow Rate 4l PEEP 0.0 Sodium Potassium Chloride Carbon Dioxide Anion Gap BUN Creatinine Creat Clearance w eGFR POC Glucometer > [phone] Random Glucose Hemoglobin A1c % Lactic Acid Calcium Phosphorus Magnesium Total Bilirubin AST ALT Alkaline Phosphatase Creatine Kinase Troponin I B-Natriuretic Peptide Total Protein Albumin Urine Color Urine Appearance Urine pH Ur Specific [place] Urine Protein Urine Glucose (UA) Urine Ketones Urine Blood Urine Nitrite Urine Bilirubin Urine Urobilinogen Ur Leukocyte Esterase Urine RBC Urine WBC Urine Bacteria Random Vancomycin Blood Type Antibody Screen Antibody Identification Crossmatch 07/01/16 07/01/16 07/01/16 05:45 05:45 05:45 WBC 19.0 H RBC 2.33 L Hgb 7.0 L Hct 22.2 L MCV 95.6 MCHC 31.6 L RDW 16.0 H Plt Count 328 MPV 8.0 Neutrophils % 78.2 Lymphocytes % 19.3 D Monocytes % 2.3 L Eosinophils % 0.0 Basophils % 0.2 Band Neutrophils Differential Comment Reactive Lymphocytes Hypochromic-Microcytic Basophilic Stippling Morphology Comment INR PTT (Actin FS) Puncture Site ABG pH ABG pCO2 at Pt Temp ABG pO2 at Pt Temp ABG HCO3 ABG O2 Sat (Measured) ABG O2 Content ABG Base Excess Alessandro Test O2 Delivery Device Oxygen Flow Rate PEEP Sodium 155 H Potassium 3.3 L Chloride 117 H Carbon Dioxide 28 Anion Gap 10 BUN 63 H Creatinine 1.8 H Creat Clearance w eGFR 27.14 POC Glucometer Random Glucose 151 H D Hemoglobin A1c % Lactic Acid 2.527 H* Calcium 8.3 L Phosphorus Magnesium Total Bilirubin 0.2 AST 15 ALT 13 Alkaline Phosphatase 83 Creatine Kinase Troponin I B-Natriuretic Peptide Total Protein 6.6 Albumin 1.7 L Urine Color Urine Appearance Urine pH Ur Specific [place] Urine Protein Urine Glucose (UA) Urine Ketones Urine Blood Urine Nitrite Urine Bilirubin Urine Urobilinogen Ur Leukocyte Esterase Urine RBC Urine WBC Urine Bacteria Random Vancomycin Blood Type Antibody Screen Antibody Identification Crossmatch 07/01/16 07/01/16 07/01/16 05:45 05:54 06:00 WBC RBC Hgb Hct MCV MCHC RDW Plt Count MPV Neutrophils % Lymphocytes % Monocytes % Eosinophils % Basophils % Band Neutrophils Differential Comment Reactive Lymphocytes Hypochromic-Microcytic Basophilic Stippling Morphology Comment INR PTT (Actin FS) Puncture Site ABG pH ABG pCO2 at Pt Temp ABG pO2 at Pt Temp ABG HCO3 ABG O2 Sat (Measured) ABG O2 Content ABG Base Excess Alessandro Test O2 Delivery Device Oxygen Flow Rate PEEP Sodium Potassium Chloride Carbon Dioxide Anion Gap BUN Creatinine Creat Clearance w eGFR POC Glucometer [phone] Random Glucose Hemoglobin A1c % Lactic Acid Calcium Phosphorus Magnesium Total Bilirubin AST ALT Alkaline Phosphatase Creatine Kinase 88 Troponin I 0.07 H B-Natriuretic Peptide Total Protein Albumin Urine Color Urine Appearance Urine pH Ur Specific [place] Urine Protein Urine Glucose (UA) Urine Ketones Urine Blood Urine Nitrite Urine Bilirubin Urine Urobilinogen Ur Leukocyte Esterase Urine RBC Urine WBC Urine Bacteria Random Vancomycin 14.927 Blood Type Antibody Screen Antibody Identification Crossmatch 07/01/16 07/01/16 07/01/16 07:05 07:25 07:53 WBC RBC Hgb Hct MCV MCHC RDW Plt Count MPV Neutrophils % Lymphocytes % Monocytes % Eosinophils % Basophils % Band Neutrophils Differential Comment Reactive Lymphocytes Hypochromic-Microcytic Basophilic Stippling Morphology Comment INR PTT (Actin FS) Puncture Site Right radial ABG pH 7.40 ABG pCO2 at Pt Temp 43.5 ABG pO2 at Pt Temp 173.0 H* D ABG HCO3 26.4 H ABG O2 Sat (Measured) 99.7 H* ABG O2 Content 10.9 L ABG Base Excess 1.9 Alessandro Test Positive O2 Delivery Device Non-rebreather mask Oxygen Flow Rate 100% PEEP 0.0 Sodium Potassium Chloride Carbon Dioxide Anion Gap BUN Creatinine Creat Clearance w eGFR POC Glucometer 122.55395 128.99615 Random Glucose Hemoglobin A1c % Lactic Acid Calcium Phosphorus Magnesium Total Bilirubin AST ALT Alkaline Phosphatase Creatine Kinase Troponin I B-Natriuretic Peptide Total Protein Albumin Urine Color Urine Appearance Urine pH Ur Specific [place] Urine Protein Urine Glucose (UA) Urine Ketones Urine Blood Urine Nitrite Urine Bilirubin Urine Urobilinogen Ur Leukocyte Esterase Urine RBC Urine WBC Urine Bacteria Random Vancomycin Blood Type Antibody Screen Antibody Identification Crossmatch 07/01/16 07/01/16 07/01/16 08:00 08:00 13:00 WBC 21.0 H 18.6 H RBC 2.62 L 2.61 L Hgb 7.9 L D 7.7 L Hct 24.9 L 24.7 L MCV 95.3 94.6 MCHC 31.6 L 31.3 L RDW 16.1 H 16.2 H Plt Count 341 335 MPV 7.7 7.9 Neutrophils % 83.0 H Lymphocytes % 12.0 D Monocytes % 2.0 L Eosinophils % Basophils % Band Neutrophils 2.0 D Differential Comment Manual diff done Reactive Lymphocytes 1 D Hypochromic-Microcytic 1+ Basophilic Stippling 1+ Morphology Comment Slide scanned INR PTT (Actin FS) Puncture Site ABG pH ABG pCO2 at Pt Temp ABG pO2 at Pt Temp ABG HCO3 ABG O2 Sat (Measured) ABG O2 Content ABG Base Excess Alessandro Test O2 Delivery Device Oxygen Flow Rate PEEP Sodium Potassium Chloride Carbon Dioxide Anion Gap BUN Creatinine Creat Clearance w eGFR POC Glucometer Random Glucose Hemoglobin A1c % Lactic Acid 1.312 Calcium Phosphorus Magnesium Total Bilirubin AST ALT Alkaline Phosphatase Creatine Kinase Troponin I B-Natriuretic Peptide Total Protein Albumin Urine Color Urine Appearance Urine pH Ur Specific [place] Urine Protein Urine Glucose (UA) Urine Ketones Urine Blood Urine Nitrite Urine Bilirubin Urine Urobilinogen Ur Leukocyte Esterase Urine RBC Urine WBC Urine Bacteria Random Vancomycin Blood Type Antibody Screen Antibody Identification Crossmatch 07/01/16 13:00 WBC RBC Hgb Hct MCV MCHC RDW Plt Count MPV Neutrophils % Lymphocytes % Monocytes % Eosinophils % Basophils % Band Neutrophils Differential Comment Reactive Lymphocytes Hypochromic-Microcytic Basophilic Stippling Morphology Comment INR PTT (Actin FS) Puncture Site ABG pH ABG pCO2 at Pt Temp ABG pO2 at Pt Temp ABG HCO3 ABG O2 Sat (Measured) ABG O2 Content ABG Base Excess Alessandro Test O2 Delivery Device Oxygen Flow Rate PEEP Sodium 151 H Potassium 3.8 Chloride 114 H Carbon Dioxide 28 Anion Gap 9 BUN 62 H Creatinine 1.7 H Creat Clearance w eGFR POC Glucometer Random Glucose 234 H D Hemoglobin A1c % Lactic Acid Calcium 8.4 L Phosphorus Magnesium Total Bilirubin AST ALT Alkaline Phosphatase Creatine Kinase Troponin I B-Natriuretic Peptide Total Protein Albumin Urine Color Urine Appearance Urine pH Ur Specific [place] Urine Protein Urine Glucose (UA) Urine Ketones Urine Blood Urine Nitrite Urine Bilirubin Urine Urobilinogen Ur Leukocyte Esterase Urine RBC Urine WBC Urine Bacteria Random Vancomycin Blood Type Antibody Screen Antibody Identification Crossmatch Active Medications Generic Name Dose Route Start Last Admin Trade Name Freq PRN Reason Stop Dose Admin Acetaminophen 650 mg 06/30/16 09:05 06/30/16 15:05 Tylenol Suppository - [place] 650 mg Q6H PRN Administration FEVER OR PAIN Acetaminophen 1,000 mg 06/30/16 23:28 07/01/16 00:42 Ofirmev Injection - IVPB 1,000 mg Q6H PRN Administration Albuterol Sulfate 1 amp 06/30/16 12:00 07/01/16 11:15 Ventolin 0.083% Nebulizer Soln - NEB 1 amp Q6HPO LARRY Administration Albuterol/Ipratropium 1 amp 06/30/16 08:22 Duoneb - NEB Q6H PRN SHORTNESS OF BREATH Amino Acids 30 ml 06/30/16 17:30 07/01/16 08:00 Prosource No Carb Liquid Pkt PO Not Given BID@0800,1730 LARRY Ascorbic Acid 500 mg 06/30/16 14:00 07/01/16 07:06 Vitamin C - PO Not Given TID LARRY Atorvastatin Calcium 10 mg 06/30/16 22:00 06/30/16 22:34 Lipitor - PO Not Given HS LARRY Fentanyl 1 patch 06/30/16 08:30 06/30/16 08:55 Duragesic 12mcg Patch - TD Not Given Q72H LARRY Heparin Sodium (Porcine) 1,000 unit 07/01/16 14:36 Heparin - IVPUSH PRN PRN Heparin Heparin Sodium (Porcine) 5,000 unit 07/01/16 14:36 Heparin - IVPUSH PRN PRN Heparin Meropenem 500 mg/ Dextrose 100 mls @ 200 mls/hr 06/30/16 10:00 07/01/16 10:30 IVPB 200 mls/hr BID LARRY Administration Norepinephrine Bitartrate 8, 1,000 mls @ 37.5 mls/hr 07/01/16 06:00 07/01/16 05 :55 000 mcg/ Sodium Chloride IV 22.5 mls/hr TITR LARRY Administration Protocol 5 MCG/MIN Potassium Chloride/Sodium Chloride 1,000 mls @ 75 mls/hr 07/01/16 12:30 1/2ns+20meq Kcl IV ASDIR LARRY Potassium Chloride/Dextrose/Sod Cl 1,000 mls @ 75 mls/hr 07/01/16 12:30 D5-1/2ns+20 Meq Kcl - IV ASDIR LARRY Heparin Sodium (Porcine) 25, 500 mls @ 16 mls/hr 07/01/16 14:45 000 unit/ Sodium Chloride IV TITR LARRY Protocol 800 UNIT/HR Ibuprofen 400 mg 06/30/16 18:18 06/30/16 18:43 Caldolor Injection - IVPB 400 mg Q6H PRN Administration FEVER Insulin Aspart 1 vial 07/01/16 07:00 07/01/16 11:30 Novolog Vial Sliding Scale - SQ Not Given ACHS [facility] Protocol Insulin Detemir 15 units 06/30/16 23:45 07/01/16 10:00 Levemir Vial SQ Not Given BID LARRY Ipratropium [place] 1 amp 06/30/16 12:00 07/01/16 11:15 Atrovent 0.02% Nebulizer - NEB 1 amp Q6HPO LARRY Administration Metoprolol Succinate 25 mg 06/30/16 10:00 07/01/16 10:00 Toprol Xl - PO Not Given DAILY [facility] Mirtazapine 30 mg 06/30/16 22:00 06/30/16 22:35 Remeron - PO Not Given HS [facility] Miscellaneous 1 each 06/30/16 09:29 Duragesic Patch Waste TD PRN PRN Olanzapine 5 mg 06/30/16 10:00 07/01/16 10:00 Zyprexa - PO Not Given BID LARRY Oxycodone HCl 5 mg 06/30/16 08:22 Roxicodone - PO BID PRN PAIN Pantoprazole Sodium 20 mg 06/30/16 10:00 07/01/16 10:00 Protonix - PO Not Given DAILY [facility]ARR[facility] Senna 1 tab 06/30/16 22:00 06/30/16 22:35 Senna - PO Not Given HS [facility] Sodium Bicarbonate 650 mg 06/30/16 10:00 07/01/16 10:00 Sodium Bicarbonate - PO Not Given BID LARRY Tamsulosin HCl 0.4 mg 06/30/16 10:00 07/01/16 09:00 Flomax - PO Not Given DAILY@0830 [facility] Zinc Sulfate 220 mg 06/30/16 10:00 07/01/16 11:08 Orazinc - PO Not Given DAILY [facility] ASSESSMENT/PLAN: Pt is a 80yr old woman with PMHx including HTN, HLD, DM dementia, GERD, recurrent MDR UTIs, wounds and bilateral BKA. Now in the ICU for management of septic shock secondary to UTI/sacral wound, GIANNI and hyperglycemia. Pulm:LE dopplers performed due to high A-a gradient, showing bilateral DVTs, likely has pulmonary emboli as well. -start heparin gtt -f/u echocardiogram -o2 support for sat >90 -f/u stat abg -f/u repeat chest xray -nebulizers -BiPAP to assist in work of breathing -may need intubation if no improvement with BiPAP ID: Septic Shock possibly possible UTI v osteo (Sacral Decubitus Ulcer Infectionon sacr or LLE ulcer and bone exposed)) , shock could be multifactorial in setting of probable DVT. -f/u cultures -ID following -Meropenem 500 mg/ Dextrose per ID -Isolation precautions -f/u lactic acid -f/u vanco level AM, consider redosing in am. Renal: GIANNI, Cr was 0.7 on 04/20 now >2 -IVF as tolerated -Replete electrolytes prn -I/Os -f/u repeat UA -monitor urine output, creatinine Endo:DM - glucose control keep glucose >160 -f/u repeat chemistry pt s/p -d/c isnsulin gtt -levemir and ISS -BGM -f/u A1c Cardiac: hypotension BP 90/50 on levophed -titrate levophed gtt to maintain MAP >65 -Hold antihypertensives for now in setting of hypotension -f/u enzymes -Monitor h/h, transfuse prn Neuro Dementia- at base line per PCP -Pain management, pt on 12mcg Fentanyl patch, consider 25mcg as pt appears in significant distress with multiple sources of chronic pain Int: -Wound care FEN replet elctrolytes as needed Prophylactic D51/2 NS 75cc/hr NPO -DVT-heparin dripp -PPI- protonix -Bowel regiment in setting of opioid use Dispo: continue ICU monitoring. Visit type - Emergency Visit Emergency Visit: Yes ED Registration Date: 06/30/16 Care time: The patient presented to the Emergency Department on the above date and was hospitalized for further evaluation of their emergent condition. - New Patient This patient is new to me today: Yes Date on this admission: 06/30/16 - Critical Care Critical Care patient: Yes Total Critical Care Time (in minutes): 56 Critical Care Statement: The care of this patient involved high complexity decision making to prevent further life threatening deterioration of the patient 's condition and/or to evalute & treat vital organ system(s) failure or risk of failure.
[2016-07-01] MEDS ORDERED: HEPARIN INFUSION - 500 ML IVPB ONE (14:53)
--- NOTE | 2016-07-01 18:45 | PN ---
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, Physician Chief Complaint: on bipap icu,restless,moaning family at bedside family aware serious illness History of Present Illness: iddm,sepsis,hypotension,wound infection,hypoxia,dementia - Current Medication List Current Medications: Active Medications Acetaminophen (Tylenol Suppository -) 650 mg AR Q6H PRN PRN Reason: FEVER OR PAIN Last Admin: 06/30/16 15:05 Dose: 650 mg Acetaminophen (Ofirmev Injection -) 1,000 mg IVPB Q6H PRN Last Admin: 07/01/16 00:42 Dose: 1,000 mg Albuterol Sulfate (Ventolin 0.083% Nebulizer Soln -) 1 amp NEB Q6HPO LARRY Last Admin: 07/01/16 18:27 Dose: 1 amp Albuterol/Ipratropium (Duoneb -) 1 amp NEB Q6H PRN PRN Reason: SHORTNESS OF BREATH Amino Acids (Prosource No Carb Liquid Pkt) 30 ml PO BID@0800,1730 [facility] Last Admin: 07/01/16 08:00 Dose: Not Given Ascorbic Acid (Vitamin C -) 500 mg PO TID [facility] Last Admin: 07/01/16 07:06 Dose: Not Given Atorvastatin Calcium (Lipitor -) 10 mg PO HS [facility] Last Admin: 06/30/16 22:34 Dose: Not Given Fentanyl (Duragesic 12mcg Patch -) 1 patch TD Q72H [facility] Last Admin: 06/30/16 08:55 Dose: Not Given Heparin Sodium (Porcine) (Heparin -) 1,000 unit IVPUSH PRN PRN PRN Reason: Heparin Heparin Sodium (Porcine) (Heparin -) 5,000 unit IVPUSH PRN PRN PRN Reason: Heparin Meropenem 500 mg/ Dextrose 100 mls @ 200 mls/hr IVPB BID [facility] Last Admin: 07/01/16 10:30 Dose: 200 mls/hr Norepinephrine Bitartrate 8, (000 mcg/ Sodium Chloride) 1,000 mls @ 37.5 mls/ hr IV TITR LARRY; 5 MCG/MIN PRN Reason: Protocol Last Admin: 07/01/16 05:55 Dose: 22.5 mls/hr Potassium Chloride/Sodium Chloride (1/2ns+20meq Kcl) 1,000 mls @ 75 mls/hr IV ASDIR LARRY Potassium Chloride/Dextrose/Sod Cl (D5-1/2ns+20 Meq Kcl -) 1,000 mls @ 75 mls/ hr IV ASDIR LARRY Heparin Sodium (Porcine) 25, (000 unit/ Sodium Chloride) 500 mls @ 16 mls/hr IV TITR LARRY; 800 UNIT/HR PRN Reason: Protocol Ibuprofen (Caldolor Injection -) 400 mg IVPB Q6H PRN PRN Reason: FEVER Last Admin: 06/30/16 18:43 Dose: 400 mg Insulin Aspart (Novolog Vial Sliding Scale -) 1 vial SQ ACHS [facility] PRN Reason: Protocol Insulin Detemir (Levemir Vial) 15 units SQ BID LARRY Ipratropium [place] (Atrovent 0.02% Nebulizer -) 1 amp NEB Q6HPO [facility] Last Admin: 07/01/16 18:27 Dose: 1 amp Metoprolol Succinate (Toprol Xl -) 25 mg PO DAILY [facility] Last Admin: 07/01/16 10:00 Dose: Not Given Mirtazapine (Remeron -) 30 mg PO [facility] Last Admin: 06/30/16 22:35 Dose: Not Given Miscellaneous (Duragesic Patch Waste) 1 each TD PRN PRN Olanzapine (Zyprexa -) 5 mg PO BID [facility] Last Admin: 07/01/16 10:00 Dose: Not Given Oxycodone HCl (Roxicodone -) 5 mg PO BID PRN PRN Reason: PAIN Pantoprazole Sodium (Protonix -) 20 mg PO DAILY [facility] Last Admin: 07/01/16 10:00 Dose: Not Given Senna (Senna -) 1 tab PO [facility] Last Admin: 06/30/16 22:35 Dose: Not Given Sodium Bicarbonate (Sodium Bicarbonate -) 650 mg PO BID [facility] Last Admin: 07/01/16 10:00 Dose: Not Given Tamsulosin HCl (Flomax -) 0.4 mg PO DAILY@0830 [facility] Last Admin: 07/01/16 09:00 Dose: Not Given Zinc Sulfate (Orazinc -) 220 mg PO DAILY [facility] Last Admin: 07/01/16 11:08 Dose: Not Given - Objective Vital Signs: Vital Signs Temperature 102.6 F H 07/01/16 13:20 Pulse Rate 114 H 07/01/16 13:20 Respiratory Rate 24 07/01/16 13:20 Blood Pressure 122/95 04/06/17 13:20 O2 Sat by Pulse Oximetry (%) 99 07/01/16 16:21 Constitutional: Yes: Anxious Eyes: Yes: EOM Intact HENT: Yes: Normocephalic Neck: Yes: Trachea Midline Cardiovascular: Yes: Regular Rate and Rhythm Respiratory: Yes: On BiPap Gastrointestinal: Yes: Normal Bowel Sounds ...Rectal Exam: Yes: Deferred Genitourinary: Yes: WNL Musculoskeletal: Yes: Joint Swelling, Muscle Pain, Muscle Weakness Extremities: Yes: Amputation Edema: No Neurological: Yes: Alert, Confusion Labs: CBC, BMP 07/01/16 13:00 07/01/16 13:00 INR, PTT INR 1.08 (0.82-1.09) 07/01/16 01:45 Problem List - Problems (1) Decubitus ulcer Code(s): L89.90 - PRESSURE ULCER OF UNSPECIFIED SITE, UNSPECIFIED STAGE (2) Infected decubitus ulcer Code(s): L89.90 - PRESSURE ULCER OF UNSPECIFIED SITE, UNSPECIFIED STAGE (3) Pneumonia Code(s): J18.9 - PNEUMONIA, UNSPECIFIED ORGANISM Qualifiers: Pneumonia type: due to unspecified organism Laterality: left Lung location: lower lobe of lung Qualified Code(s): J18.1 - Lobar pneumonia, unspecified organism (4) Septic shock Code(s): A41.9 - SEPSIS, UNSPECIFIED ORGANISM R65.21 - SEVERE SEPSIS WITH SEPTIC SHOCK (5) Type 2 diabetes mellitus with hyperosmolarity without nonketotic hyperglycemic-hyperosmolar coma ([facility]) Code(s): E11.00 - TYPE 2 DIAB W HYPROSM W/O NONKET HYPRGLY-HYPROS COMA ([facility]) Assessment/Plan Current Active Problems Decubitus ulcer (Acute) Infected decubitus ulcer (Acute) Pneumonia (Acute) Septic shock (Acute) UTI (urinary tract infection) (Acute) iddm uncontrolled hyperglycemia Abnormal Lab Results 06/30/16 06/30/16 07/01/16 21:49 23:44 01:45 WBC 17.4 H RBC 2.48 L Hgb 7.6 L Hct 24.7 L MCV 99.7 H MCHC 30.6 L RDW 17.3 H Neutrophils % 85.4 H Monocytes % 3.5 L ABG pO2 at Pt Temp ABG HCO3 ABG O2 Sat (Measured) ABG O2 Content Sodium Potassium Chloride BUN Creatinine Random Glucose 724 H* D Hemoglobin A1c % 9.5 H D Lactic Acid Calcium Magnesium AST Troponin I B-Natriuretic Peptide Albumin Urine Protein Urine Glucose (UA) Urine Ketones Urine Blood Ur Leukocyte Esterase Antibody Screen Crossmatch 07/01/16 07/01/16 07/01/16 01:45 01:45 01:45 WBC RBC Hgb Hct MCV MCHC RDW Neutrophils % Monocytes % ABG pO2 at Pt Temp ABG HCO3 ABG O2 Sat (Measured) ABG O2 Content Sodium 151 H Potassium Chloride 111 H BUN 65 H Creatinine 2.2 H Random Glucose 572 H* D Hemoglobin A1c % Lactic Acid 4.289 H* Calcium Magnesium 2.5 H D AST 13 L D Troponin I 0.06 H B-Natriuretic Peptide Albumin 1.8 L Urine Protein Urine Glucose (UA) Urine Ketones Urine Blood Ur Leukocyte Esterase Antibody Screen Crossmatch 07/01/16 07/01/16 07/01/16 01:45 01:45 01:45 WBC RBC Hgb Hct MCV MCHC RDW Neutrophils % Monocytes % ABG pO2 at Pt Temp ABG HCO3 ABG O2 Sat (Measured) ABG O2 Content Sodium Potassium Chloride BUN Creatinine Random Glucose Hemoglobin A1c % Lactic Acid Calcium Magnesium AST Troponin I B-Natriuretic Peptide 6743.82 H Albumin Urine Protein 2+ H Urine Glucose (UA) 3+ H Urine Ketones Trace H Urine Blood 1+ H Ur Leukocyte Esterase 3+ H Antibody Screen Positive H Crossmatch See Detail 07/01/16 07/01/16 07/01/16 02:38 05:45 05:45 WBC 19.0 H RBC 2.33 L Hgb 7.0 L Hct 22.2 L MCV MCHC 31.6 L RDW 16.0 H Neutrophils % Monocytes % 2.3 L ABG pO2 at Pt Temp ABG HCO3 ABG O2 Sat (Measured) ABG O2 Content 11.4 L Sodium 155 H Potassium 3.3 L Chloride 117 H BUN 63 H Creatinine 1.8 H Random Glucose 151 H D Hemoglobin A1c % Lactic Acid Calcium 8.3 L Magnesium AST Troponin I B-Natriuretic Peptide Albumin 1.7 L Urine Protein Urine Glucose (UA) Urine Ketones Urine Blood Ur Leukocyte Esterase Antibody Screen Crossmatch 07/01/16 07/01/1617 05:45 05:45 07:25 WBC RBC Hgb Hct MCV MCHC RDW Neutrophils % Monocytes % ABG pO2 at Pt Temp 173.0 H* D ABG HCO3 26.4 H ABG O2 Sat (Measured) 99.7 H* ABG O2 Content 10.9 L Sodium Potassium Chloride BUN Creatinine Random Glucose Hemoglobin A1c % Lactic Acid 2.527 H* Calcium Magnesium AST Troponin I 0.07 H B-Natriuretic Peptide Albumin Urine Protein Urine Glucose (UA) Urine Ketones Urine Blood Ur Leukocyte Esterase Antibody Screen Crossmatch 07/01/16 07/01/16 07/01/16 08:00 13:00 13:00 WBC 21.0 H 18.6 H RBC 2.62 L 2.61 L Hgb 7.9 L D 7.7 L Hct 24.9 L 24.7 L MCV MCHC 31.6 L 31.3 L RDW 16.1 H 16.2 H Neutrophils % 83.0 H Monocytes % 2.0 L ABG pO2 at Pt Temp ABG HCO3 ABG O2 Sat (Measured) ABG O2 Content Sodium 151 H Potassium Chloride 114 H BUN 62 H Creatinine 1.7 H Random Glucose 234 H D Hemoglobin A1c % Lactic Acid Calcium 8.4 L Magnesium AST Troponin I B-Natriuretic Peptide Albumin Urine Protein Urine Glucose (UA) Urine Ketones Urine Blood Ur Leukocyte Esterase Antibody Screen Crossmatch plan: levemir 15 units bid novolog bgm achs coverage scale wound debridement and iv antibiotics o2 bipap
[2016-07-01] MEDS ORDERED: DEXTROSE 5%-0.45% SALINE 1,000 ML with POTASSIUM CHLORIDE 20 MEQ IV SCH (20:15)
[2016-07-01] MEDS ORDERED: SODIUM CHLORIDE 0.45% 1,000 ML with POTASSIUM CHLORIDE 20 MEQ IV SCH (20:30)
[2016-07-01] MEDS: ATORVASTATIN CA 10 MG TABLET (FP) PO SCH (22:17)
[2016-07-01] MEDS: SENNOSIDES 8.6MG TABLET (FP) PO SCH (22:17)
[2016-07-01] MEDS: MIRTAZAPINE 30 MG TABLET (FP) PO SCH (22:17)
[2016-07-01] MEDS: HEPARIN - 25,000 UNIT in SODIUM CHLORIDE 495 ML IV SCH (22:18)
[2016-07-01] MEDS ORDERED: PT OWN MED DRAWER 7, Y5N ONE (22:25)
[2016-07-01] MEDS: HEPARIN NA (PORCINE) 5,000 UNITS/ML 1ML VIAL IVPUSH PRN (22:26)
[2016-07-02] MEDS: ALBUTEROL SO4 0.083% IH SOL 2.5 MG/3 ML VIAL.NEB. NEB SCH ×4 (00:04→17:25)
[2016-07-02] MEDS: IPRATROPIUM BR 0.02% 0.5 MG/2.5 ML VIAL.NEB. NEB SCH ×4 (00:04→17:25)
[2016-07-02] MEDS: IBUPROFEN 800 MG/8 ML IJ IVPB PRN (00:05)
[2016-07-02] MEDS: NOREPINEPHRINE BITARTRATE 8,000 MCG in DEXTROSE 5%-WATER - 492 ML IV SCH (02:55)
--- NOTE | 2016-07-02 05:53 | PN ---
Physical Exam: SUBJECTIVE: Patient seen and examined OBJECTIVE: Vital Signs Period Temp Pulse Resp BP Sys/Chávez Pulse Ox Last 24 Hr 99.8 F-102.6 F 89-114 24-36 96-160/47-95 94-100 GENERAL: The patient is awake, alert, and fully oriented, in no acute distress. HEAD: Normal with no signs of trauma. EYES: PERRL, extraocular movements intact, sclera anicteric, conjunctiva clear. No ptosis. ENT: Ears normal, nares patent, oropharynx clear without exudates, moist mucous membranes. NECK: Trachea midline, full range of motion, supple. LUNGS: Breath sounds equal, clear to auscultation bilaterally, no wheezes, no crackles, no accessory muscle use. HEART: Regular rate and rhythm, S1, S2 without murmur, rub or gallop. ABDOMEN: Soft, nontender, nondistended, normoactive bowel sounds, no guarding, no rebound, no hepatosplenomegaly, no masses. EXTREMITIES: 2+ pulses, warm, well-perfused, no edema. NEUROLOGICAL: Cranial nerves II through XII grossly intact. Normal speech, gait not observed. PSYCH: Normal mood, normal affect. SKIN: Warm, dry, normal turgor, no rashes or lesions noted Laboratory Results - last 24 hr 06/30/16 06/30/16 07/01/16 21:52 23:44 00:29 WBC RBC Hgb Hct MCV MCHC RDW Plt Count MPV Neutrophils % Lymphocytes % Monocytes % Eosinophils % Basophils % Band Neutrophils Differential Comment Reactive Lymphocytes Hypochromic-Microcytic Basophilic Stippling Morphology Comment PTT (Actin FS) Puncture Site ABG pH ABG pCO2 at Pt Temp ABG pO2 at Pt Temp ABG HCO3 ABG O2 Sat (Measured) ABG O2 Content ABG Base Excess Alessandro Test O2 Delivery Device Oxygen Flow Rate PEEP Sodium Potassium Chloride Carbon Dioxide Anion Gap BUN Creatinine Creat Clearance w eGFR POC Glucometer > 600 > 600 Random Glucose Hemoglobin A1c % 9.5 H D Lactic Acid Calcium Total Bilirubin AST ALT Alkaline Phosphatase Creatine Kinase Troponin I Total Protein Albumin Random Vancomycin Blood Type Antibody Screen Antibody Identification Crossmatch 07/01/16 07/01/16 07/01/16 01:45 03:26 04:45 WBC RBC Hgb Hct MCV MCHC RDW Plt Count MPV Neutrophils % Lymphocytes % Monocytes % Eosinophils % Basophils % Band Neutrophils Differential Comment Reactive Lymphocytes Hypochromic-Microcytic Basophilic Stippling Morphology Comment PTT (Actin FS) Puncture Site ABG pH ABG pCO2 at Pt Temp ABG pO2 at Pt Temp ABG HCO3 ABG O2 Sat (Measured) ABG O2 Content ABG Base Excess Alessandro Test O2 Delivery Device Oxygen Flow Rate PEEP Sodium Potassium Chloride Carbon Dioxide Anion Gap BUN Creatinine Creat Clearance w eGFR POC Glucometer > [phone] Random Glucose Hemoglobin A1c % Lactic Acid Calcium Total Bilirubin AST ALT Alkaline Phosphatase Creatine Kinase Troponin I Total Protein Albumin Random Vancomycin Blood Type O POSITIVE Antibody Screen Positive H Antibody Identification WARM AUTOIMMUNE HEMO ANEMIA Crossmatch See Detail 07/01/16 07/01/16 07/01/16 05:45 05:45 05:45 WBC 19.0 H RBC 2.33 L Hgb 7.0 L Hct 22.2 L MCV 95.6 MCHC 31.6 L RDW 16.0 H Plt Count 328 MPV 8.0 Neutrophils % 78.2 Lymphocytes % 19.3 D Monocytes % 2.3 L Eosinophils % 0.0 Basophils % 0.2 Band Neutrophils Differential Comment Reactive Lymphocytes Hypochromic-Microcytic Basophilic Stippling Morphology Comment PTT (Actin FS) Puncture Site ABG pH ABG pCO2 at Pt Temp ABG pO2 at Pt Temp ABG HCO3 ABG O2 Sat (Measured) ABG O2 Content ABG Base Excess Alessandro Test O2 Delivery Device Oxygen Flow Rate PEEP Sodium 155 H Potassium 3.3 L Chloride 117 H Carbon Dioxide 28 Anion Gap 10 BUN 63 H Creatinine 1.8 H Creat Clearance w eGFR 27.14 POC Glucometer Random Glucose 151 H D Hemoglobin A1c % Lactic Acid 2.527 H* Calcium 8.3 L Total Bilirubin 0.2 AST 15 ALT 13 Alkaline Phosphatase 83 Creatine Kinase Troponin I Total Protein 6.6 Albumin 1.7 L Random Vancomycin Blood Type Antibody Screen Antibody Identification Crossmatch 07/01/16 07/01/16 07/01/16 05:45 05:54 06:00 WBC RBC Hgb Hct MCV MCHC RDW Plt Count MPV Neutrophils % Lymphocytes % Monocytes % Eosinophils % Basophils % Band Neutrophils Differential Comment Reactive Lymphocytes Hypochromic-Microcytic Basophilic Stippling Morphology Comment PTT (Actin FS) Puncture Site ABG pH ABG pCO2 at Pt Temp ABG pO2 at Pt Temp ABG HCO3 ABG O2 Sat (Measured) ABG O2 Content ABG Base Excess Alessandro Test O2 Delivery Device Oxygen Flow Rate PEEP Sodium Potassium Chloride Carbon Dioxide Anion Gap BUN Creatinine Creat Clearance w eGFR POC Glucometer [phone] Random Glucose Hemoglobin A1c % Lactic Acid Calcium Total Bilirubin AST ALT Alkaline Phosphatase Creatine Kinase 88 Troponin I 0.07 H Total Protein Albumin Random Vancomycin 14.927 Blood Type Antibody Screen Antibody Identification Crossmatch 07/01/16 07/01/16 07/01/16 07:05 07:25 07:53 WBC RBC Hgb Hct MCV MCHC RDW Plt Count MPV Neutrophils % Lymphocytes % Monocytes % Eosinophils % Basophils % Band Neutrophils Differential Comment Reactive Lymphocytes Hypochromic-Microcytic Basophilic Stippling Morphology Comment PTT (Actin FS) Puncture Site Right radial ABG pH 7.40 ABG pCO2 at Pt Temp 43.5 ABG pO2 at Pt Temp 173.0 H* D ABG HCO3 26.4 H ABG O2 Sat (Measured) 99.7 H* ABG O2 Content 10.9 L ABG Base Excess 1.9 Alessandro Test Positive O2 Delivery Device Non-rebreather mask Oxygen Flow Rate 100% PEEP 0.0 Sodium Potassium Chloride Carbon Dioxide Anion Gap BUN Creatinine Creat Clearance w eGFR POC Glucometer [phone] Random Glucose Hemoglobin A1c % Lactic Acid Calcium Total Bilirubin AST ALT Alkaline Phosphatase Creatine Kinase Troponin I Total Protein Albumin Random Vancomycin Blood Type Antibody Screen Antibody Identification Crossmatch 07/01/16 07/01/16 07/01/16 08:00 08:00 12:13 WBC 21.0 H RBC 2.62 L Hgb 7.9 L D Hct 24.9 L MCV 95.3 MCHC 31.6 L RDW 16.1 H Plt Count 341 MPV 7.7 Neutrophils % 83.0 H Lymphocytes % 12.0 D Monocytes % 2.0 L Eosinophils % Basophils % Band Neutrophils 2.0 D Differential Comment Manual diff done Reactive Lymphocytes 1 D Hypochromic-Microcytic 1+ Basophilic Stippling 1+ Morphology Comment Slide scanned PTT (Actin FS) Puncture Site ABG pH ABG pCO2 at Pt Temp ABG pO2 at Pt Temp ABG HCO3 ABG O2 Sat (Measured) ABG O2 Content ABG Base Excess Alessandro Test O2 Delivery Device Oxygen Flow Rate PEEP Sodium Potassium Chloride Carbon Dioxide Anion Gap BUN Creatinine Creat Clearance w eGFR POC Glucometer [phone] Random Glucose Hemoglobin A1c % Lactic Acid 1.312 Calcium Total Bilirubin AST ALT Alkaline Phosphatase Creatine Kinase Troponin I Total Protein Albumin Random Vancomycin Blood Type Antibody Screen Antibody Identification Crossmatch 07/01/16 07/01/16 07/01/16 13:00 13:00 17:45 WBC 18.6 H RBC 2.61 L Hgb 7.7 L Hct 24.7 L MCV 94.6 MCHC 31.3 L RDW 16.2 H Plt Count 335 MPV 7.9 Neutrophils % Lymphocytes % Monocytes % Eosinophils % Basophils % Band Neutrophils Differential Comment Reactive Lymphocytes Hypochromic-Microcytic Basophilic Stippling Morphology Comment PTT (Actin FS) Puncture Site ABG pH ABG pCO2 at Pt Temp ABG pO2 at Pt Temp ABG HCO3 ABG O2 Sat (Measured) ABG O2 Content ABG Base Excess Alessandro Test O2 Delivery Device Oxygen Flow Rate PEEP Sodium 151 H Potassium 3.8 Chloride 114 H Carbon Dioxide 28 Anion Gap 9 BUN 62 H Creatinine 1.7 H Creat Clearance w eGFR POC Glucometer [phone] Random Glucose 234 H D Hemoglobin A1c % Lactic Acid Calcium 8.4 L Total Bilirubin AST ALT Alkaline Phosphatase Creatine Kinase Troponin I Total Protein Albumin Random Vancomycin Blood Type Antibody Screen Antibody Identification Crossmatch 07/01/16 07/02/16 21:30 03:00 WBC RBC Hgb Hct MCV MCHC RDW Plt Count MPV Neutrophils % Lymphocytes % Monocytes % Eosinophils % Basophils % Band Neutrophils Differential Comment Reactive Lymphocytes Hypochromic-Microcytic Basophilic Stippling Morphology Comment PTT (Actin FS) 37.5 H 65.5 H D Puncture Site ABG pH ABG pCO2 at Pt Temp ABG pO2 at Pt Temp ABG HCO3 ABG O2 Sat (Measured) ABG O2 Content ABG Base Excess Alessandro Test O2 Delivery Device Oxygen Flow Rate PEEP Sodium Potassium Chloride Carbon Dioxide Anion Gap BUN Creatinine Creat Clearance w eGFR POC Glucometer Random Glucose Hemoglobin A1c % Lactic Acid Calcium Total Bilirubin AST ALT Alkaline Phosphatase Creatine Kinase Troponin I Total Protein Albumin Random Vancomycin Blood Type Antibody Screen Antibody Identification Crossmatch Active Medications Generic Name Dose Route Start Last Admin Trade Name Freq PRN Reason Stop Dose Admin Acetaminophen 650 mg 06/30/16 09:05 06/30/16 15:05 Tylenol Suppository - [place] 650 mg Q6H PRN Administration FEVER OR PAIN Acetaminophen 1,000 mg 06/30/16 23:28 07/01/16 00:42 Ofirmev Injection - IVPB 1,000 mg Q6H PRN Administration Albuterol Sulfate 1 amp 06/30/16 12:00 07/01/16 18:27 Ventolin 0.083% Nebulizer Soln - NEB 1 amp Q6HPO LARRY Administration Albuterol/Ipratropium 1 amp 06/30/16 08:22 Duoneb - NEB Q6H PRN SHORTNESS OF BREATH Amino Acids 30 ml 06/30/16 17:30 07/01/16 22:17 Prosource No Carb Liquid Pkt PO Not Given BID@0800,1730 LARRY Ascorbic Acid 500 mg 06/30/16 14:00 07/01/16 22:53 Vitamin C - PO Not Given TID LARRY Atorvastatin Calcium 10 mg 06/30/16 22:00 07/01/16 22:17 Lipitor - PO Not Given HS LARRY Fentanyl 1 patch 06/30/16 08:30 06/30/16 08:55 Duragesic 12mcg Patch - TD Not Given Q72H LARRY Heparin Sodium (Porcine) 1,000 unit 07/01/16 14:36 Heparin - IVPUSH PRN PRN Heparin Heparin Sodium (Porcine) 5,000 unit 07/01/16 14:36 07/01/16 22:26 Heparin - IVPUSH 5,000 unit PRN PRN Administration Heparin Meropenem 500 mg/ Dextrose 100 mls @ 200 mls/hr 06/30/16 10:00 07/01/16 22:26 IVPB 200 mls/hr BID LARRY Administration Heparin Sodium (Porcine) 25, 500 mls @ 16 mls/hr 07/01/16 14:45 07/01/16 22:36 000 unit/ Sodium Chloride IV 950 unit/hr TITR LARRY Titration Protocol 800 UNIT/HR Potassium Chloride 20 meq/ 1,010 mls @ 75 mls/hr 07/01/16 20:30 07/01/16 22:20 Sodium Chloride IV 75 mls/hr Q13H LARRY Administration Norepinephrine Bitartrate 8, 500 mls @ 11.25 mls/hr 07/02/16 00:15 07/02/16 02: 55 000 mcg/ Dextrose IV 7.5 mls/hr TITR LARRY Administration Protocol 3 MCG/MIN Ibuprofen 400 mg 06/30/16 18:18 07/02/16 00:05 Caldolor Injection - IVPB 400 mg Q6H PRN Administration FEVER Insulin Aspart 1 vial 07/01/16 14:53 07/01/16 22:45 Novolog Vial Sliding Scale - SQ 2 units ACHS LARRY Administration Protocol Insulin Detemir 15 units 07/01/16 22:00 07/01/16 22:45 Levemir Vial SQ 15 units BID LARRY Administration Ipratropium [place] 1 amp 06/30/16 12:00 07/01/16 18:27 Atrovent 0.02% Nebulizer - NEB 1 amp Q6HPO LARRY Administration Metoprolol Succinate 25 mg 06/30/16 10:00 07/01/16 10:00 Toprol Xl - PO Not Given DAILY LARRY Mirtazapine 30 mg 06/30/16 22:00 07/01/16 22:17 Remeron - PO Not Given HS [facility] Miscellaneous 1 each 06/30/16 09:29 Duragesic Patch Waste TD PRN PRN Olanzapine 5 mg 06/30/16 10:00 07/01/16 22:18 Zyprexa - PO Not Given BID LARRY Oxycodone HCl 5 mg 06/30/16 08:22 Roxicodone - PO BID PRN PAIN Pantoprazole Sodium 20 mg 06/30/16 10:00 07/01/16 10:00 Protonix - PO Not Given DAILY LARRY Senna 1 tab 06/30/16 22:00 07/01/16 22:17 Senna - PO Not Given HS [facility] Sodium Bicarbonate 650 mg 06/30/16 10:00 07/01/16 22:18 Sodium Bicarbonate - PO Not Given BID LARRY Tamsulosin HCl 0.4 mg 06/30/16 10:00 07/01/16 09:00 Flomax - PO Not Given DAILY@0830 LARRY Zinc Sulfate 220 mg 06/30/16 10:00 07/01/16 11:08 Orazinc - PO Not Given DAILY LARRY ASSESSMENT/PLAN: Current Medications
[2016-07-02] MEDS: ASCORBIC ACID 500 MG TABLET (FP) PO SCH ×3 (06:30→21:48)
[2016-07-02] MEDS: INSULIN SLIDING SCALE (NOVOLOG) 1 VIAL SQ SCH ×4 (06:33→22:43)
--- NOTE | 2016-07-02 07:45 | PN ---
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, Physician History of Present Illness: IN ICU ON BIPAP - Current Medication List Current Medications: Active Medications Acetaminophen (Tylenol Suppository -) 650 mg ND Q6H PRN PRN Reason: FEVER OR PAIN Last Admin: 06/30/16 15:05 Dose: 650 mg Acetaminophen (Ofirmev Injection -) 1,000 mg IVPB Q6H PRN Last Admin: 07/01/16 00:42 Dose: 1,000 mg Albuterol Sulfate (Ventolin 0.083% Nebulizer Soln -) 1 amp NEB Q6HPO LARRY Last Admin: 07/02/16 07:05 Dose: 1 amp Albuterol/Ipratropium (Duoneb -) 1 amp NEB Q6H PRN PRN Reason: SHORTNESS OF BREATH Amino Acids (Prosource No Carb Liquid Pkt) 30 ml PO BID@0800,1730 [facility] Last Admin: 07/01/16 22:17 Dose: Not Given Ascorbic Acid (Vitamin C -) 500 mg PO TID [facility] Last Admin: 07/02/16 06:30 Dose: Not Given Atorvastatin Calcium (Lipitor -) 10 mg PO HS [facility] Last Admin: 07/01/16 22:17 Dose: Not Given Fentanyl (Duragesic 12mcg Patch -) 1 patch TD Q72H [facility] Last Admin: 06/30/16 08:55 Dose: Not Given Heparin Sodium (Porcine) (Heparin -) 1,000 unit IVPUSH PRN PRN PRN Reason: Heparin Heparin Sodium (Porcine) (Heparin -) 5,000 unit IVPUSH PRN PRN PRN Reason: Heparin Last Admin: 07/01/16 22:26 Dose: 5,000 unit Meropenem 500 mg/ Dextrose 100 mls @ 200 mls/hr IVPB BID [facility] Last Admin: 07/01/16 22:26 Dose: 200 mls/hr Heparin Sodium (Porcine) 25, (000 unit/ Sodium Chloride) 500 mls @ 16 mls/hr IV TITR LARRY; 800 UNIT/HR PRN Reason: Protocol Last Titration: 07/01/16 22:36 Dose: 950 unit/hr Potassium Chloride 20 meq/ (Sodium Chloride) 1,010 mls @ 75 mls/hr IV Q13H [facility] Last Admin: 07/01/16 22:20 Dose: 75 mls/hr Norepinephrine Bitartrate 8, (000 mcg/ Dextrose) 500 mls @ 11.25 mls/hr IV TITR LARRY; 3 MCG/MIN PRN Reason: Protocol Last Admin: 07/02/16 02:55 Dose: 7.5 mls/hr Ibuprofen (Caldolor Injection -) 400 mg IVPB Q6H PRN PRN Reason: FEVER Last Admin: 07/02/16 00:05 Dose: 400 mg Insulin Aspart (Novolog Vial Sliding Scale -) 1 vial SQ ACHS LARRY PRN Reason: Protocol Last Admin: 07/02/16 06:33 Dose: Not Given Insulin Detemir (Levemir Vial) 15 units SQ BID [facility] Last Admin: 07/01/16 22:45 Dose: 15 units Ipratropium [place] (Atrovent 0.02% Nebulizer -) 1 amp NEB Q6HPO [facility] Last Admin: 07/02/16 07:04 Dose: 1 amp Metoprolol Succinate (Toprol Xl -) 25 mg PO DAILY [facility] Last Admin: 07/01/16 10:00 Dose: Not Given Mirtazapine (Remeron -) 30 mg PO HS [facility] Last Admin: 07/01/16 22:17 Dose: Not Given Miscellaneous (Duragesic Patch Waste) 1 each TD PRN PRN Olanzapine (Zyprexa -) 5 mg PO BID [facility] Last Admin: 07/01/16 22:18 Dose: Not Given Oxycodone HCl (Roxicodone -) 5 mg PO BID PRN PRN Reason: PAIN Pantoprazole Sodium (Protonix -) 20 mg PO DAILY [facility] Last Admin: 07/01/16 10:00 Dose: Not Given Senna (Senna -) 1 tab PO [facility] Last Admin: 07/01/16 22:17 Dose: Not Given Sodium Bicarbonate (Sodium Bicarbonate -) 650 mg PO BID [facility] Last Admin: 07/01/16 22:18 Dose: Not Given Tamsulosin HCl (Flomax -) 0.4 mg PO DAILY@0830 [facility] Last Admin: 07/01/16 09:00 Dose: Not Given Zinc Sulfate (Orazinc -) 220 mg PO DAILY [facility] Last Admin: 07/01/16 11:08 Dose: Not Given - Objective Vital Signs: Vital Signs Temperature 99.7 F H 07/02/16 06:00 Pulse Rate 92 H 07/02/16 06:00 Respiratory Rate 20 07/02/16 06:00 Blood Pressure 107/49 07/02/16 06:00 O2 Sat by Pulse Oximetry (%) 97 07/02/16 02:11 Cardiovascular: Yes: S1, S2 Respiratory: Yes: Diminished, On BiPap Gastrointestinal: Yes: Normal Bowel Sounds, Soft Neurological: Yes: Alert, Confusion Labs: CBC, BMP 07/01/16 13:00 07/01/16 13:00 INR, PTT INR 1.08 (0.82-1.09) 07/01/16 01:45 Problem List - Problems (1) Septic shock Assessment/Plan: PROBABLY URINARY SOURCE IVF IV ABX PRESSERS ID ON BOARD Microbiology 06/30/16 09:25 Blood Culture - Preliminary Blood - Peripheral Venous NO GROWTH OBTAINED AFTER 24 HOURS, INCUBATION TO CONTINUE FOR 4 DAYS. 06/30/16 09:25 Blood Culture - Preliminary Blood - Peripheral Venous NO GROWTH OBTAINED AFTER 24 HOURS, INCUBATION TO CONTINUE FOR 4 DAYS. 06/30/16 00:49 Urine Culture - Preliminary Urine - Urine [place] Non Lactose Fermenting Gnb Code(s): A41.9 - SEPSIS, UNSPECIFIED ORGANISM R65.21 - SEVERE SEPSIS WITH SEPTIC SHOCK (2) UTI (urinary tract infection) Assessment/Plan: ABX CULTURES ID ON BOARD Microbiology 06/30/16 09:25 Blood Culture - Preliminary Blood - Peripheral Venous NO GROWTH OBTAINED AFTER 24 HOURS, INCUBATION TO CONTINUE FOR 4 DAYS. 06/30/16 09:25 Blood Culture - Preliminary Blood - Peripheral Venous NO GROWTH OBTAINED AFTER 24 HOURS, INCUBATION TO CONTINUE FOR 4 DAYS. 06/30/16 00:49 Urine Culture - Preliminary Urine - Urine [place] Non Lactose Fermenting Gnb Code(s): N39.0 - URINARY TRACT INFECTION, SITE NOT SPECIFIED Qualifiers: Urinary tract infection type: acute cystitis Hematuria presence: without hematuria Qualified Code(s): N30.00 - Acute cystitis without hematuria (3) Fever Code(s): R50.9 - FEVER, UNSPECIFIED (4) Pneumonia Assessment/Plan: F/U CXR NOTED--??? PNA ABX BIPAP Code(s): J18.9 - PNEUMONIA, UNSPECIFIED ORGANISM Qualifiers: Pneumonia type: due to unspecified organism Laterality: left Lung location: lower lobe of lung Qualified Code(s): J18.1 - Lobar pneumonia, unspecified organism (5) CKD (chronic kidney disease) Code(s): N18.9 - CHRONIC KIDNEY DISEASE, UNSPECIFIED (6) S/P bilateral below knee amputation Assessment/Plan: MONITOR Code(s): Z89.512 - ACQUIRED ABSENCE OF LEFT LEG BELOW KNEE Z89.511 - ACQUIRED ABSENCE OF RIGHT LEG BELOW KNEE (7) Decubitus ulcer Assessment/Plan: wound care on abx Code(s): L89.90 - PRESSURE ULCER OF UNSPECIFIED SITE, UNSPECIFIED STAGE (8) Anemia Assessment/Plan: REPEAT TRANSFUSE Code(s): D64.9 - ANEMIA, UNSPECIFIED Qualifiers: Anemia type: iron deficiency (9) Diabetes Assessment/Plan: MONITOR B/S ENDO CONSULT SS/LEVEMIR Code(s): E11.9 - TYPE 2 DIABETES MELLITUS WITHOUT COMPLICATIONS Qualifiers: Diabetes mellitus type: type 2 (10) DVT, bilateral lower limbs Assessment/Plan: ON HEPARIN DRIP Code(s): I82.403 - ACUTE EMBOLISM AND THOMBOS UNSP DEEP VEINS OF LOW EXTRM, BI
[2016-07-02] MEDS: AMINO ACIDS/PROTEIN HYDROLYS 30 ML LIQUID.PKT PO SCH ×2 (08:00→17:45)
[2016-07-02] MEDS: TAMSULOSIN HCL 0.4 MG CAP.ER.24H (FP) PO SCH (08:30)
[2016-07-02] MEDS: DEXTROSE 5%-0.45% SALINE 1,000 ML IV SCH (09:00)
[2016-07-02] MEDS: INSULIN DETEMIR 100 UNITS/ML MDV SQ SCH ×2 (10:00→22:05)
[2016-07-02 10:08] LABS: MCH 29.3 pg (25.7-33.7); MCHC 30.7 g/dl (32.0-36.0); MEAN CELL VOLUME 95.4 fl (80-96); MEAN PLT VOLUME 8.2 fl (7.5-11.1); PLATELET COUNT 312 K/MM3 (134-434); RDW 16.2 % (11.6-15.6); WHITE BLOOD COUNT 21.5 K/mm3 (4.0-10.0)
[2016-07-02 10:13] LABS: ARTERIAL BLD GAS O2 SATURATION 98.3 % (90-98.9); ARTERIAL BLOOD GAS BASE EXCESS 0.7 meq/l (-2-2); ARTERIAL BLOOD GAS HCO3 24.8 meq/L (22-26); ARTERIAL BLOOD GAS pH 7.41 (7.35-7.45)
[2016-07-02 10:15] LABS: ALLENS TEST POSITIVE; ART PUNCT SITE RIGHT RADIAL; LPM/O2% 60; PT. ON O2? YES
[2016-07-02 10:16] LABS: TYPE OF O2 BIPAP; VENT RATE 14; VT/PRESS EPAP 6
[2016-07-02 10:28] LABS: CALCIUM 8.6 mg/dL (8.5-10.1)
[2016-07-02] MEDS: MEROPENEM 500 MG in DEXTROSE 5%-WATER - 100 ML IVPB SCH (10:30)
[2016-07-02] MEDS: SODIUM BICARBONATE 650 MG TABLET PO SCH ×2 (10:30→21:48)
[2016-07-02] MEDS: ZINC SULFATE 220 MG CAPSULE (FP) PO SCH (10:30)
[2016-07-02] MEDS: PANTOPRAZOLE 20 MG TABLET (FP) PO SCH (10:30)
[2016-07-02 10:32] LABS: COCKROFT - GAULT 32.1895; CREATININE 1.1 mg/dL (0.55-1.02); PHOSPHOROUS 2.3 mg/dL (2.5-4.9)
[2016-07-02] MEDS: COLLAGENASE CLOSTRIDIUM HIST. 30 GRAMS TUBE TP SCH (11:00)
[2016-07-02] MEDS: METOPROLOL SUCCINATE 25 MG TAB.SR.24H (FP) PO SCH (11:00)
[2016-07-02] MEDS: OLANZapine 5 MG TABLET PO SCH ×2 (11:00→21:48)
[2016-07-02] MEDS ORDERED: HEMOQUE TEST 1 EACH EACH ONE (11:28)
[2016-07-02 11:38] LABS: PLATELET ESTIMATE ADEQUATE (NORMAL)
[2016-07-02] MEDS: ACETAMINOPHEN 1000 MG/100 ML VIAL (NON FORMULARY) IVPB PRN (12:30)
--- NOTE | 2016-07-02 12:38 | PN ---
Teaching Attending Note Name of Resident: Lorenzo Vang ATTENDING PHYSICIAN STATEMENT I saw and evaluated the patient. I reviewed the resident's note and discussed the case with the resident. I agree with the resident's findings and plan as documented. SUBJECTIVE: Pt seen and examined in the ICU. Remains on low dose levophed drip. Remains on NIPPV. Intake & Output 06/29/16 06/30/16 07/01/16 07/02/16 23:59 23:59 23:59 23:59 Intake Total 1310 2846 1319.2 Output Total 1050 1500 150 Balance 260 1346 1169.2 Weight 140 lb 140 lb 0.002 oz 104 lb 11.513 oz 108 lb 6.4 oz Last Vital Signs Temp Pulse Resp BP Pulse Ox 99.7 F H 94 H 20 107/49 97 07/02/16 06:00 07/02/16 11:29 07/02/16 06:00 07/02/16 06:00 07/02/16 12:03 Active Medications Acetaminophen (Tylenol Suppository -) 650 mg MA Q6H PRN PRN Reason: FEVER OR PAIN Last Admin: 06/30/16 15:05 Dose: 650 mg Acetaminophen (Ofirmev Injection -) 1,000 mg IVPB Q6H PRN Last Admin: 07/01/16 00:42 Dose: 1,000 mg Albuterol Sulfate (Ventolin 0.083% Nebulizer Soln -) 1 amp NEB Q6HPO [facility] Last Admin: 07/02/16 11:13 Dose: 1 amp Albuterol/Ipratropium (Duoneb -) 1 amp NEB Q6H PRN PRN Reason: SHORTNESS OF BREATH Amino Acids (Prosource No Carb Liquid Pkt) 30 ml PO BID@0800,1730 [facility] Last Admin: 07/01/16 22:17 Dose: Not Given Ascorbic Acid (Vitamin C -) 500 mg PO TID [facility] Last Admin: 07/02/16 06:30 Dose: Not Given Atorvastatin Calcium (Lipitor -) 10 mg PO HS [facility] Last Admin: 07/01/16 22:17 Dose: Not Given Collagenase (Santyl -) 1 applic TP DAILY [facility] Fentanyl (Duragesic 12mcg Patch -) 1 patch TD Q72H [facility] Last Admin: 06/30/16 08:55 Dose: Not Given Heparin Sodium (Porcine) (Heparin -) 1,000 unit IVPUSH PRN PRN PRN Reason: Heparin Heparin Sodium (Porcine) (Heparin -) 5,000 unit IVPUSH PRN PRN PRN Reason: Heparin Last Admin: 07/01/16 22:26 Dose: 5,000 unit Meropenem 500 mg/ Dextrose 100 mls @ 200 mls/hr IVPB BID [facility]ARR[facility] Last Admin: 07/01/16 22:26 Dose: 200 mls/hr Heparin Sodium (Porcine) 25, (000 unit/ Sodium Chloride) 500 mls @ 16 mls/hr IV TITR LARRY; 800 UNIT/HR PRN Reason: Protocol Last Titration: 07/01/16 22:36 Dose: 950 unit/hr Norepinephrine Bitartrate 8, (000 mcg/ Dextrose) 500 mls @ 11.25 mls/hr IV TITR LARRY; 3 MCG/MIN PRN Reason: Protocol Last Admin: 07/02/16 02:55 Dose: 7.5 mls/hr Dextrose/Sodium Chloride (D5-1/2ns -) 1,000 mls @ 75 mls/hr IV ASDIR [facility] Ibuprofen (Caldolor Injection -) 400 mg IVPB Q6H PRN PRN Reason: FEVER Last Admin: 07/02/16 00:05 Dose: 400 mg Insulin Aspart (Novolog Vial Sliding Scale -) 1 vial SQ ACHS LARRY PRN Reason: Protocol Last Admin: 07/02/16 06:33 Dose: Not Given Insulin Detemir (Levemir Vial) 15 units SQ BID [facility] Last Admin: 07/01/16 22:45 Dose: 15 units Ipratropium [place] (Atrovent 0.02% Nebulizer -) 1 amp NEB Q6HPO [facility] Last Admin: 07/02/16 11:13 Dose: 1 amp Metoprolol Succinate (Toprol Xl -) 25 mg PO DAILY [facility] Last Admin: 07/01/16 10:00 Dose: Not Given Mirtazapine (Remeron -) 30 mg PO HS [facility] Last Admin: 07/01/16 22:17 Dose: Not Given Miscellaneous (Duragesic Patch Waste) 1 each TD PRN PRN Olanzapine (Zyprexa -) 5 mg PO BID [facility] Last Admin: 07/01/16 22:18 Dose: Not Given Oxycodone HCl (Roxicodone -) 5 mg PO BID PRN PRN Reason: PAIN Pantoprazole Sodium (Protonix -) 20 mg PO DAILY [facility] Last Admin: 07/01/16 10:00 Dose: Not Given Senna (Senna -) 1 tab PO HS [facility] Last Admin: 07/01/16 22:17 Dose: Not Given Sodium Bicarbonate (Sodium Bicarbonate -) 650 mg PO BID [facility] Last Admin: 07/01/16 22:18 Dose: Not Given Tamsulosin HCl (Flomax -) 0.4 mg PO DAILY@0830 [facility] Last Admin: 07/01/16 09:00 Dose: Not Given Zinc Sulfate (Orazinc -) 220 mg PO DAILY [facility] Last Admin: 07/01/16 11:08 Dose: Not Given Gen: tachypneic on BiPAP Heart: tachycardic, regular Lung: distant breath sounds Abd: soft, nontender Ext: bilateral BKA Laboratory Results - last 24 hr 06/30/16 07/01/16 07/01/16 23:44 01:45 08:00 WBC RBC Hgb Hct MCV MCHC RDW Plt Count MPV Neutrophils % 83.0 H Lymphocytes % 12.0 D Monocytes % 2.0 L Band Neutrophils 2.0 D Differential Comment Manual diff done Reactive Lymphocytes 1 D Platelet Estimate Hypochromic-Microcytic 1+ Basophilic Stippling 1+ Morphology Comment Slide scanned PTT (Actin FS) Puncture Site ABG pH ABG pCO2 at Pt Temp ABG pO2 at Pt Temp ABG HCO3 ABG O2 Sat (Measured) ABG O2 Content ABG Base Excess Alessandro Test O2 Delivery Device Oxygen Flow Rate Vent Mode Vent Rate Pressure Support Vent Sodium Potassium Chloride Carbon Dioxide Anion Gap BUN Creatinine POC Glucometer Random Glucose Hemoglobin A1c % 9.5 H D Calcium Phosphorus Random Vancomycin Crossmatch See Detail 07/01/16 07/01/16 07/01/16 12:13 13:00 13:00 WBC 18.6 H RBC 2.61 L Hgb 7.7 L Hct 24.7 L MCV 94.6 MCHC 31.3 L RDW 16.2 H Plt Count 335 MPV 7.9 Neutrophils % Lymphocytes % Monocytes % Band Neutrophils Differential Comment Reactive Lymphocytes Platelet Estimate Hypochromic-Microcytic Basophilic Stippling Morphology Comment PTT (Actin FS) Puncture Site ABG pH ABG pCO2 at Pt Temp ABG pO2 at Pt Temp ABG HCO3 ABG O2 Sat (Measured) ABG O2 Content ABG Base Excess Alessandro Test O2 Delivery Device Oxygen Flow Rate Vent Mode Vent Rate Pressure Support Vent Sodium 151 H Potassium 3.8 Chloride 114 H Carbon Dioxide 28 Anion Gap 9 BUN 62 H Creatinine 1.7 H POC Glucometer 261.75204 Random Glucose 234 H D Hemoglobin A1c % Calcium 8.4 L Phosphorus Random Vancomycin Crossmatch 07/01/16 07/01/16 07/02/16 17:45 21:30 03:00 WBC RBC Hgb Hct MCV MCHC RDW Plt Count MPV Neutrophils % Lymphocytes % Monocytes % Band Neutrophils Differential Comment Reactive Lymphocytes Platelet Estimate Hypochromic-Microcytic Basophilic Stippling Morphology Comment PTT (Actin FS) 37.5 H 65.5 H D Puncture Site ABG pH ABG pCO2 at Pt Temp ABG pO2 at Pt Temp ABG HCO3 ABG O2 Sat (Measured) ABG O2 Content ABG Base Excess Alessandro Test O2 Delivery Device Oxygen Flow Rate Vent Mode Vent Rate Pressure Support Vent Sodium Potassium Chloride Carbon Dioxide Anion Gap BUN Creatinine POC Glucometer 365.10537 Random Glucose Hemoglobin A1c % Calcium Phosphorus Random Vancomycin Crossmatch 07/02/16 07/02/16 07/02/16 05:30 09:53 09:53 WBC 21.5 H RBC 2.79 L Hgb 8.2 L Hct 26.6 L MCV 95.4 MCHC 30.7 L RDW 16.2 H Plt Count 312 MPV 8.2 Neutrophils % 91.0 H Lymphocytes % 9.0 D Monocytes % Band Neutrophils Differential Comment Manual diff done Reactive Lymphocytes Platelet Estimate Adequate Hypochromic-Microcytic Basophilic Stippling Morphology Comment PTT (Actin FS) Puncture Site ABG pH ABG pCO2 at Pt Temp ABG pO2 at Pt Temp ABG HCO3 ABG O2 Sat (Measured) ABG O2 Content ABG Base Excess Alessandro Test O2 Delivery Device Oxygen Flow Rate Vent Mode Vent Rate Pressure Support Vent Sodium 155 H Potassium 4.1 Chloride 121 H Carbon Dioxide 24 Anion Gap 10 BUN 47 H D Creatinine 1.1 H D POC Glucometer Random Glucose 51 L D Hemoglobin A1c % Calcium 8.6 Phosphorus 2.3 L D Random Vancomycin 9.268 Crossmatch 07/02/16 10:00 WBC RBC Hgb Hct MCV MCHC RDW Plt Count MPV Neutrophils % Lymphocytes % Monocytes % Band Neutrophils Differential Comment Reactive Lymphocytes Platelet Estimate Hypochromic-Microcytic Basophilic Stippling Morphology Comment PTT (Actin FS) Puncture Site Right radial ABG pH 7.41 ABG pCO2 at Pt Temp 40.1 ABG pO2 at Pt Temp 100.0 D ABG HCO3 24.8 ABG O2 Sat (Measured) 98.3 ABG O2 Content 10.5 L ABG Base Excess 0.7 Alessandro Test Positive O2 Delivery Device Bipap Oxygen Flow Rate 60 Vent Mode Ipap 12 Vent Rate 14 Pressure Support Vent Epap 6 Sodium Potassium Chloride Carbon Dioxide Anion Gap BUN Creatinine POC Glucometer Random Glucose Hemoglobin A1c % Calcium Phosphorus Random Vancomycin Crossmatch ASSESSMENT AND PLAN: Acute Hypoxic Respiratory Failure UTI Sacral Decubitus Ulcer Infection Septic Shock Lactic Acidosis Acute Kidney Injury HTN DM Dementia - continue antibiotics - IVF - titrate levophed gtt to maintain MAP >65 - monitor urine output, creatinine - trend lactate - NIPPV to assist in work of breathing - titrate FiO2 to keep SpO2 >90% - discuss with family goals of care, advanced directives - NPO - DVT/GI prophylaxis - ICU monitoring critical care time spent in reviewing chart, evaluating patient and formulating plan [address] Galeana
--- NOTE | 2016-07-02 12:58 | PN ---
Physical Exam: SUBJECTIVE: Patient seen and examined bipap to 40 % on venti saturating 100%. nurse alerts me patient, AMS not responded to verbal and vocal stimuli, pinpoint pupils reactive to light, vitals stable, patient put back on BIpap, 1/ 2 hour after patient awake and alert, understands and speak Nauruan and Serbian, spoke polish that she is not feeling good. patient looks lethargic started vanco and 2 blood cultures sent. EKG no changes, troponins negative, abg no significant change. OBJECTIVE: Vital Signs Period Temp Pulse Resp BP Sys/Chávez Pulse Ox Last 24 Hr 99.6 F-102.6 F 80-114 19-36 96-133/47-95 96-100 HEAD: Normal with no signs of trauma. EYES: PERRL, extraocular movements intact, sclera anicteric, conjunctiva clear. No ptosis. ENT: Ears normal, nares patent, oropharynx clear without exudates, moist mucous membranes. NECK: Trachea midline, full range of motion, supple. LUNGS: decreases air intake at bases, scattered rhonchi, no wheezes, no accessory muscle use. HEART: distant heart sounds, tachy rate and regular rhythm, S1, S2 without murmur, rub or gallop. ABDOMEN: Soft, nontender, nondistended, hypoactive bowel sounds, no guarding, no rebound, no hepatosplenomegaly, no masses. Gonzales intact white/yellow urine EXTREMITIES: Bilateral BKA, NEUROLOGICAL: no facial asymmetry, nonverbal, alert, responds to stimuli, gait not observed. PSYCH: Normal mood, normal affect. 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, Laboratory Results - last 24 hr 06/30/16 07/01/16 07/01/16 23:44 01:45 12:13 WBC RBC Hgb Hct MCV MCHC RDW Plt Count MPV Neutrophils % Lymphocytes % Differential Comment Platelet Estimate PTT (Actin FS) Puncture Site ABG pH ABG pCO2 at Pt Temp ABG pO2 at Pt Temp ABG HCO3 ABG O2 Sat (Measured) ABG O2 Content ABG Base Excess Alessandro Test O2 Delivery Device Oxygen Flow Rate Vent Mode Vent Rate Pressure Support Vent Sodium Potassium Chloride Carbon Dioxide Anion Gap BUN Creatinine POC Glucometer [phone] Random Glucose Hemoglobin A1c % 9.5 H D Calcium Phosphorus Random Vancomycin Crossmatch See Detail 07/01/16 07/01/16 07/01/16 13:00 13:00 17:45 WBC 18.6 H RBC 2.61 L Hgb 7.7 L Hct 24.7 L MCV 94.6 MCHC 31.3 L RDW 16.2 H Plt Count 335 MPV 7.9 Neutrophils % Lymphocytes % Differential Comment Platelet Estimate PTT (Actin FS) Puncture Site ABG pH ABG pCO2 at Pt Temp ABG pO2 at Pt Temp ABG HCO3 ABG O2 Sat (Measured) ABG O2 Content ABG Base Excess Alessandro Test O2 Delivery Device Oxygen Flow Rate Vent Mode Vent Rate Pressure Support Vent Sodium 151 H Potassium 3.8 Chloride 114 H Carbon Dioxide 28 Anion Gap 9 BUN 62 H Creatinine 1.7 H POC Glucometer [phone] Random Glucose 234 H D Hemoglobin A1c % Calcium 8.4 L Phosphorus Random Vancomycin Crossmatch 07/01/16 07/02/16 07/02/16 21:30 03:00 05:30 WBC RBC Hgb Hct MCV MCHC RDW Plt Count MPV Neutrophils % Lymphocytes % Differential Comment Platelet Estimate PTT (Actin FS) 37.5 H 65.5 H D Puncture Site ABG pH ABG pCO2 at Pt Temp ABG pO2 at Pt Temp ABG HCO3 ABG O2 Sat (Measured) ABG O2 Content ABG Base Excess Alessandro Test O2 Delivery Device Oxygen Flow Rate Vent Mode Vent Rate Pressure Support Vent Sodium Potassium Chloride Carbon Dioxide Anion Gap BUN Creatinine POC Glucometer Random Glucose Hemoglobin A1c % Calcium Phosphorus Random Vancomycin 9.268 Crossmatch 07/02/16 07/02/16 07/02/16 09:53 09:53 10:00 WBC 21.5 H RBC 2.79 L Hgb 8.2 L Hct 26.6 L MCV 95.4 MCHC 30.7 L RDW 16.2 H Plt Count 312 MPV 8.2 Neutrophils % 91.0 H Lymphocytes % 9.0 D Differential Comment Manual diff done Platelet Estimate Adequate PTT (Actin FS) Puncture Site Right radial ABG pH 7.41 ABG pCO2 at Pt Temp 40.1 ABG pO2 at Pt Temp 100.0 D ABG HCO3 24.8 ABG O2 Sat (Measured) 98.3 ABG O2 Content 10.5 L ABG Base Excess 0.7 Alessandro Test Positive O2 Delivery Device Bipap Oxygen Flow Rate 60 Vent Mode Ipap 12 Vent Rate 14 Pressure Support Vent Epap 6 Sodium 155 H Potassium 4.1 Chloride 121 H Carbon Dioxide 24 Anion Gap 10 BUN 47 H D Creatinine 1.1 H D POC Glucometer Random Glucose 51 L D Hemoglobin A1c % Calcium 8.6 Phosphorus 2.3 L D Random Vancomycin Crossmatch Active Medications Generic Name Dose Route Start Last Admin Trade Name Freq PRN Reason Stop Dose Admin Acetaminophen 650 mg 06/30/16 09:05 06/30/16 15:05 Tylenol Suppository - [place] 650 mg Q6H PRN Administration FEVER OR PAIN Acetaminophen 1,000 mg 06/30/16 23:28 07/01/16 00:42 Ofirmev Injection - IVPB 1,000 mg Q6H PRN Administration Albuterol Sulfate 1 amp 06/30/16 12:00 07/02/16 11:13 Ventolin 0.083% Nebulizer Soln - NEB 1 amp Q6HPO LARRY Administration Albuterol/Ipratropium 1 amp 06/30/16 08:22 Duoneb - NEB Q6H PRN SHORTNESS OF BREATH Amino Acids 30 ml 06/30/16 17:30 07/01/16 22:17 Prosource No Carb Liquid Pkt PO Not Given BID@0800,1730 [facility] Ascorbic Acid 500 mg 06/30/16 14:00 07/02/16 06:30 Vitamin C - PO Not Given TID [facility] Atorvastatin Calcium 10 mg 06/30/16 22:00 07/01/16 22:17 Lipitor - PO Not Given HS [facility] Collagenase 1 applic 07/02/16 10:00 Santyl - TP DAILY [facility] Fentanyl 1 patch 06/30/16 08:30 06/30/16 08:55 Duragesic 12mcg Patch - TD Not Given Q72H [facility] Heparin Sodium (Porcine) 1,000 unit 07/01/16 14:36 Heparin - IVPUSH PRN PRN Heparin Heparin Sodium (Porcine) 5,000 unit 07/01/16 14:36 07/01/16 22:26 Heparin - IVPUSH 5,000 unit PRN PRN Administration Heparin Meropenem 500 mg/ Dextrose 100 mls @ 200 mls/hr 06/30/16 10:00 07/01/16 22:26 IVPB 200 mls/hr BID LARRY Administration Heparin Sodium (Porcine) 25, 500 mls @ 16 mls/hr 07/01/16 14:45 07/01/16 22:36 000 unit/ Sodium Chloride IV 950 unit/hr TITR LARRY Titration Protocol 800 UNIT/HR Norepinephrine Bitartrate 8, 500 mls @ 11.25 mls/hr 07/02/16 00:15 07/02/16 02: 55 000 mcg/ Dextrose IV 7.5 mls/hr TITR LARRY Administration Protocol 3 MCG/MIN Dextrose/Sodium Chloride 1,000 mls @ 75 mls/hr 07/02/16 08:00 D5-1/2ns - IV ASDIR LARRY Ibuprofen 400 mg 06/30/16 18:18 07/02/16 00:05 Caldolor Injection - IVPB 400 mg Q6H PRN Administration FEVER Insulin Aspart 1 vial 07/01/16 14:53 07/02/16 06:33 Novolog Vial Sliding Scale - SQ Not Given ACHS [facility] Protocol Insulin Detemir 15 units 07/01/16 22:00 07/01/16 22:45 Levemir Vial SQ 15 units BID LARRY Administration Ipratropium [place] 1 amp 06/30/16 12:00 07/02/16 11:13 Atrovent 0.02% Nebulizer - NEB 1 amp Q6HPO [facility] Administration Metoprolol Succinate 25 mg 06/30/16 10:00 07/01/16 10:00 Toprol Xl - PO Not Given DAILY LARRY Mirtazapine 30 mg 06/30/16 22:00 07/01/16 22:17 Remeron - PO Not Given HS [facility] Miscellaneous 1 each 06/30/16 09:29 Duragesic Patch Waste TD PRN PRN Olanzapine 5 mg 06/30/16 10:00 07/01/16 22:18 Zyprexa - PO Not Given BID LARRY Oxycodone HCl 5 mg 06/30/16 08:22 Roxicodone - PO BID PRN PAIN Pantoprazole Sodium 20 mg 06/30/16 10:00 07/01/16 10:00 Protonix - PO Not Given DAILY [facility] Senna 1 tab 06/30/16 22:00 07/01/16 22:17 Senna - PO Not Given HS LARRY Sodium Bicarbonate 650 mg 06/30/16 10:00 07/01/16 22:18 Sodium Bicarbonate - PO Not Given BID LARRY Tamsulosin HCl 0.4 mg 06/30/16 10:00 07/01/16 09:00 Flomax - PO Not Given DAILY@0830 [facility] Zinc Sulfate 220 mg 06/30/16 10:00 07/01/16 11:08 Orazinc - PO Not Given DAILY [facility] ASSESSMENT/PLAN: Pt is a 80yr old woman with PMHx including HTN, HLD, DM dementia, GERD, recurrent MDR UTIs, wounds and bilateral BKA. Now in the ICU for management of septic shock secondary to UTI/sacral wound, GIANNI and hyperglycemia. Pulm:LE dopplers performed due to high A-a gradient, showing bilateral DVTs, likely has pulmonary emboli as well. -start heparin gtt -f/u echocardiogram -o2 support for sat >90 -f/u stat abg -f/u repeat chest xray -nebulizers -BiPAP to assist in work of breathing -may need intubation if no improvement with BiPAP ID: Septic Shock possibly possible UTI v osteo (Sacral Decubitus Ulcer Infectionon sacr or LLE ulcer and bone exposed)) , shock could be multifactorial in setting of probable DVT. -f/u cultures -ID following ertapenem/vancomycin per ID -Isolation precautions -f/u lactic acid -f/u vanco level AM, consider redosing in am. -vascular surgery _ will need debridement once stable Renal: GIANNI, Cr was 0.7 on 04/20 now >2 -IVF as tolerated -Replete electrolytes prn -I/Os -f/u repeat UA -monitor urine output, creatinine Endo:DM - glucose control keep glucose >160 -f/u repeat chemistry pt s/p -d/c isnsulin gtt -levemir and ISS -BGM -f/u A1c Cardiac: hypotension BP on levophed low dose -titrate levophed gtt to maintain MAP >65 -Hold antihypertensives for now in setting of hypotension -f/u enzymes -Monitor h/h, transfuse prn Neuro Dementia- at base line per PCP -Pain management, pt on 12mcg Fentanyl patch, consider 25mcg as pt appears in significant distress with multiple sources of chronic pain Int: -Wound care FEN replet elctrolytes as needed Prophylactic D51/2 NS 75cc/hr NPO -DVT-heparin dripp -PPI- protonix -Bowel regiment in setting of opioid use Dispo: continue ICU monitoring. Visit type - Emergency Visit Emergency Visit: Yes ED Registration Date: 06/30/16 Care time: The patient presented to the Emergency Department on the above date and was hospitalized for further evaluation of their emergent condition. - New Patient This patient is new to me today: No - Critical Care Critical Care patient: Yes Total Critical Care Time (in minutes): 48 Critical Care Statement: The care of this patient involved high complexity decision making to prevent further life threatening deterioration of the patient 's condition and/or to evalute & treat vital organ system(s) failure or risk of failure.
[2016-07-02 13:54] LABS: ALLENS TEST POSITIVE; ART PUNCT SITE LEFT RADIAL; ARTERIAL BLD GAS O2 SATURATION 98.2 % (90-98.9); ARTERIAL BLOOD GAS BASE EXCESS -0.2 meq/l (-2-2); ARTERIAL BLOOD GAS HCO3 24.2 meq/L (22-26); ARTERIAL BLOOD GAS pH 7.39 (7.35-7.45); LPM/O2% 40; PT. ON O2? YES
[2016-07-02 13:55] LABS: TYPE OF O2 BIPAP; VENT RATE 14; VT/PRESS EPAP 6
[2016-07-02 14:12] LABS: MCH 29.7 pg (25.7-33.7); MCHC 31.3 g/dl (32.0-36.0); MEAN PLT VOLUME 8.1 fl (7.5-11.1); PLATELET COUNT 292 K/MM3 (134-434); RDW 16.2 % (11.6-15.6); WHITE BLOOD COUNT 21.3 K/mm3 (4.0-10.0)
[2016-07-02 14:40] LABS: CALCIUM 8.2 mg/dL (8.5-10.1); MAGNESIUM 2.3 mg/dL (1.8-2.4); PHOSPHOROUS 2.5 mg/dL (2.5-4.9)
[2016-07-02 14:46] LABS: COCKROFT - GAULT 32.1895; CREATININE 1.1 mg/dL (0.55-1.02); TROPONIN I 0.03 ng/ml (0.00-0.05)
[2016-07-02] MEDS ORDERED: VANCOMYCIN 1 GRAM (PRE-DOCKED) 250 ML IVPB STA (15:07)
[2016-07-02] MEDS: HEPARIN - 25,000 UNIT in SODIUM CHLORIDE 495 ML IV SCH (15:48)
--- NOTE | 2016-07-02 16:14 | PN ---
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 (short form) - Note 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: remains on pressors and bipap Vital Signs Period Temp Pulse Resp BP Sys/Chávez Pulse Ox Last 24 Hr 98.5 F-101.9 F 80-113 19-36 96-137/47-94 96-100 cor-rrr lungs decreased bs at bases abd soft,nt conley with purulent drainage ext bilateral BKA CBC, BMP 07/02/16 13:50 07/02/16 13:50 Microbiology 07/01/16 01:45 Back Gram Stain - Final 07/01/16 01:45 Back Wound Culture - Preliminary Yeast Like Organism Group D Strep Or Entero Coccus Staphylococcus Species Streptococcus Species 06/30/16 00:49 Urine - Urine Conley Urine Culture - Final Escherichia Coli Esbl Marketing Content Specialist 06/30/16 09:25 Blood - Peripheral Venous Blood Culture - Preliminary NO GROWTH OBTAINED AFTER 48 HOURS, INCUBATION TO CONTINUE FOR 3 DAYS. 06/30/16 09:25 Blood - Peripheral Venous Blood Culture - Preliminary NO GROWTH OBTAINED AFTER 48 HOURS, INCUBATION TO CONTINUE FOR 3 DAYS. a/p sepsis ecoli esbl UTI infected sacral ulcer GIANNI improved ertapenem/vancomycin Problem List - Problems (1) Sepsis Code(s): A41.9 - SEPSIS, UNSPECIFIED ORGANISM Qualifiers: Sepsis type: Escherichia coli Qualified Code(s): A41.51 - Sepsis due to Escherichia coli [E. coli] (2) UTI (urinary tract infection) Code(s): N39.0 - URINARY TRACT INFECTION, SITE NOT SPECIFIED Qualifiers: Urinary tract infection type: acute cystitis Hematuria presence: without hematuria Qualified Code(s): N30.00 - Acute cystitis without hematuria (3) Infected decubitus ulcer Code(s): L89.90 - PRESSURE ULCER OF UNSPECIFIED SITE, UNSPECIFIED STAGE
--- NOTE | 2016-07-02 17:34 | PN ---
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 (short form) - Note 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: Vascular Surgery Pt seen and examined. Sacral ulcer infected. Needs debridement when stable from medical standpoint. For left BKA -- please place vac dressing to stump. Once stable, will do debridement. Spoke to daughter at bedside. Felipe Rivers DO
[2016-07-02] MEDS: ERTAPENEM SODIUM 1 GM in SODIUM CHLORIDE 50 ML IVPB SCH (18:18)
[2016-07-02] MEDS: NAPH,MB-DB/K PH,MBDB POWDER PACKET PO SCH (21:37)
[2016-07-02] MEDS: MIRTAZAPINE 30 MG TABLET (FP) PO SCH (21:48)
[2016-07-02] MEDS: ATORVASTATIN CA 10 MG TABLET (FP) PO SCH (21:48)
[2016-07-02] MEDS: SENNOSIDES 8.6MG TABLET (FP) PO SCH (21:48)
[2016-07-03] MEDS: IPRATROPIUM BR 0.02% 0.5 MG/2.5 ML VIAL.NEB. NEB SCH ×4 (00:24→17:42)
[2016-07-03] MEDS ORDERED: PT OWN MED DRAWER 7, Y5N ONE ×2 (00:25→09:20)
[2016-07-03] MEDS: ALBUTEROL SO4 0.083% IH SOL 2.5 MG/3 ML VIAL.NEB. NEB SCH ×4 (00:25→17:42)
[2016-07-03] MEDS: NOREPINEPHRINE BITARTRATE 8,000 MCG in DEXTROSE 5%-WATER - 492 ML IV SCH (00:43)
[2016-07-03] MEDS: HEPARIN - 25,000 UNIT in SODIUM CHLORIDE 495 ML IV SCH ×2 (01:46→15:04)
[2016-07-03] MEDS: DEXTROSE 5%-0.45% SALINE 1,000 ML IV SCH ×2 (05:05→08:47)
[2016-07-03] MEDS: IBUPROFEN 800 MG/8 ML IJ IVPB PRN (05:15)
[2016-07-03 06:33] LABS: MCH 29.6 pg (25.7-33.7); MCHC 31.2 g/dl (32.0-36.0); MEAN CELL VOLUME 94.9 fl (80-96); MEAN PLT VOLUME 8.8 fl (7.5-11.1); PLATELET COUNT 281 K/MM3 (134-434); RDW 16.4 % (11.6-15.6); WHITE BLOOD COUNT 18.4 K/mm3 (4.0-10.0)
[2016-07-03] MEDS: ASCORBIC ACID 500 MG TABLET (FP) PO SCH ×3 (06:46→21:22)
[2016-07-03] MEDS: INSULIN SLIDING SCALE (NOVOLOG) 1 VIAL SQ SCH ×4 (06:55→21:27)
[2016-07-03 07:00] LABS: CALCIUM 7.7 mg/dL (8.5-10.1); COCKROFT - GAULT 44.2595; CREATININE 0.8 mg/dL (0.55-1.02); PHOSPHOROUS 1.7 mg/dL (2.5-4.9)
[2016-07-03] MEDS: HEPARIN NA (PORCINE) 5,000 UNITS/ML 1ML VIAL IVPUSH PRN (07:38)
--- NOTE | 2016-07-03 08:18 | PN ---
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 (short form) - Note 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: PULM / CRITICAL CARE MEDICINE PROGRESS NOTE: Pt seen and examined in the ICU 24 HOUR EVENTS: Off pressors. Hgb 6.9, CVP 2 - getting 1 PRBC Current Medications Acetaminophen (Tylenol Suppository -) 650 mg GA Q6H PRN PRN Reason: FEVER OR PAIN Last Admin: 06/30/16 15:05 Dose: 650 mg Acetaminophen (Ofirmev Injection -) 1,000 mg IVPB Q6H PRN Last Admin: 07/02/16 12:30 Dose: 1,000 mg Albuterol Sulfate (Ventolin 0.083% Nebulizer Soln -) 1 amp NEB Q6HPO LARRY Last Admin: 07/03/16 06:29 Dose: 1 amp Albuterol/Ipratropium (Duoneb -) 1 amp NEB Q6H PRN PRN Reason: SHORTNESS OF BREATH Amino Acids (Prosource No Carb Liquid Pkt) 30 ml PO BID@0800,1730 LARRY Last Admin: 07/02/16 17:45 Dose: Not Given Ascorbic Acid (Vitamin C -) 500 mg PO TID LARRY Last Admin: 07/03/16 06:46 Dose: Not Given Atorvastatin Calcium (Lipitor -) 10 mg PO HS LARRY Last Admin: 07/02/16 21:48 Dose: Not Given Collagenase (Santyl -) 1 applic TP DAILY LARRY Last Admin: 07/02/16 11:00 Dose: 1 applic Fentanyl (Duragesic 12mcg Patch -) 1 patch TD Q72H LARRY Last Admin: 06/30/16 08:55 Dose: Not Given Heparin Sodium (Porcine) (Heparin -) 1,000 unit IVPUSH PRN PRN PRN Reason: Heparin Heparin Sodium (Porcine) (Heparin -) 5,000 unit IVPUSH PRN PRN PRN Reason: Heparin Last Admin: 07/03/16 07:38 Dose: 5,000 unit Heparin Sodium (Porcine) 25, (000 unit/ Sodium Chloride) 500 mls @ 16 mls/hr IV TITR LARRY; 800 UNIT/HR PRN Reason: Protocol Last Titration: 07/03/16 07:37 Dose: 1,100 unit/hr Dextrose/Sodium Chloride (D5-1/2ns -) 1,000 mls @ 75 mls/hr IV ASDIR LARRY Last Admin: 07/03/16 05:05 Dose: 75 mls/hr Ertapenem 1 gm/ Sodium (Chloride) 50 mls @ 50 mls/hr IVPB DAILY [facility] PRN Reason: Protocol Last Admin: 07/02/16 18:18 Dose: 50 mls/hr Ibuprofen (Caldolor Injection -) 400 mg IVPB Q6H PRN PRN Reason: FEVER Last Admin: 07/03/16 05:15 Dose: 400 mg Insulin Aspart (Novolog Vial Sliding Scale -) 1 vial SQ ACHS LARRY PRN Reason: Protocol Last Admin: 07/03/16 06:55 Dose: Not Given Insulin Detemir (Levemir Vial) 15 units SQ BID [facility] Last Admin: 07/02/16 22:05 Dose: 15 units Ipratropium [place] (Atrovent 0.02% Nebulizer -) 1 amp NEB Q6HPO [facility] Last Admin: 07/03/16 06:28 Dose: 1 amp Metoprolol Succinate (Toprol Xl -) 25 mg PO DAILY [facility] Last Admin: 07/02/16 11:00 Dose: Not Given Mirtazapine (Remeron -) 30 mg PO HS [facility] Last Admin: 07/02/16 21:48 Dose: Not Given Miscellaneous (Duragesic Patch Waste) 1 each TD PRN PRN Olanzapine (Zyprexa -) 5 mg PO BID [facility] Last Admin: 07/02/16 21:48 Dose: Not Given Oxycodone HCl (Roxicodone -) 5 mg PO BID PRN PRN Reason: PAIN Pantoprazole Sodium (Protonix -) 20 mg PO DAILY [facility] Last Admin: 07/02/16 10:30 Dose: Not Given Senna (Senna -) 1 tab PO [facility] Last Admin: 07/02/16 21:48 Dose: Not Given Sodium Bicarbonate (Sodium Bicarbonate -) 650 mg PO BID [facility] Last Admin: 07/02/16 21:48 Dose: Not Given Tamsulosin HCl (Flomax -) 0.4 mg PO DAILY@0830 [facility] Last Admin: 07/02/16 08:30 Dose: Not Given Vancomycin HCl (Vancomycin (Pre-Docked)) 1,000 mg IVPB DAILY [facility] PRN Reason: Protocol Zinc Sulfate (Orazinc -) 220 mg PO DAILY [facility] Last Admin: 07/02/16 10:30 Dose: Not Given Vital Signs Temp 98.7 F 07/03/16 06:00 Pulse 80 07/03/16 06:00 Resp 20 07/03/16 06:00 BP 94/47 07/03/16 06:00 Pulse Ox 99 07/03/16 03:05 Intake & Output 07/02/16 07/03/16 07/03/16 18:59 06:59 18:59 Intake Total 1621.2 1800 Output Total 1150 Balance 471.2 1800 Weight 51.71 kg Intake: IV 1171.2 1800 D5-1/2Ns+20 Meq KCl - 1, 900 900 000 ml @ 75 mls/hr IV ASDIR LARRY Rx#:[id number] Heparin - 25,000 Unit In 228 Normal Saline - 495 ml @ 800 UNIT/HR 16 mls/hr IV TITR LARRY Rx#:[id number] Levophed - 8,000 Mcg In 43.2 D5w - 492 ml @ 3 MCG/MIN 11.25 mls/hr IV TITR LARRY Rx#:[id number] D5-1/2Ns - 1,000 ml @ 75 900 mls/hr IV ASDIR LARRY Rx#: [id number] IVPB 450 Output: Urine 1150 Gonzales 1150 Other: Voiding Method Indwelling Catheter Indwelling Catheter Weight Measurement Method Built in [facility] Gen: awakens slowly, follows commands Heart: regular Lung: clear lungs Abd: soft, nontender Ext: bilateral BKA CBC, BMP 07/03/16 05:00 07/03/16 05:00 CXR: R side infiltrate ASSESSMENT AND PLAN: Acute Hypoxic Respiratory Failure UTI Sacral Decubitus Ulcer Infection Septic Shock Lactic Acidosis Acute Kidney Injury HTN DM Dementia - continue antibiotics - PRBC today - monitor urine output, creatinine - trend lactate - NIPPV to assist in work of breathing - trial on venti mask today - titrate FiO2 to keep SpO2 >90% - discuss with family goals of care, advanced directives - NPO - DVT/GI prophylaxis - ICU monitoring Transfer to floor tomorrow if remains off pressors and BiPAP 35 min Florentin Moreno Pulm/Critical Care TIMERS INSPECTOR
[2016-07-03] MEDS: AMINO ACIDS/PROTEIN HYDROLYS 30 ML LIQUID.PKT PO SCH ×2 (08:37→16:55)
[2016-07-03] MEDS: TAMSULOSIN HCL 0.4 MG CAP.ER.24H (FP) PO SCH (08:38)
[2016-07-03] MEDS: fentaNYL 12mcg/hr PATCH.TD72 TD SCH (08:41)
[2016-07-03] MEDS: ZINC SULFATE 220 MG CAPSULE (FP) PO SCH (09:10)
[2016-07-03] MEDS: PANTOPRAZOLE 20 MG TABLET (FP) PO SCH (09:10)
[2016-07-03] MEDS: METOPROLOL SUCCINATE 25 MG TAB.SR.24H (FP) PO SCH (09:11)
[2016-07-03] MEDS: SODIUM BICARBONATE 650 MG TABLET PO SCH ×2 (09:11→21:22)
[2016-07-03] MEDS: OLANZapine 5 MG TABLET PO SCH ×2 (09:11→21:22)
[2016-07-03] MEDS: VANCOMYCIN 1 GRAM (PRE-DOCKED) 1,000 MG/250 ML BAG IVPB SCH (09:42)
[2016-07-03] MEDS: ERTAPENEM SODIUM 1 GM in SODIUM CHLORIDE 50 ML IVPB SCH (09:42)
[2016-07-03] MEDS: COLLAGENASE CLOSTRIDIUM HIST. 30 GRAMS TUBE TP SCH (09:43)
[2016-07-03] MEDS: INSULIN DETEMIR 100 UNITS/ML MDV SQ SCH ×2 (10:19→21:27)
[2016-07-03 14:29] LABS: MCH 29.8 pg (25.7-33.7); MCHC 31.7 g/dl (32.0-36.0); MEAN CELL VOLUME 94.3 fl (80-96); MEAN PLT VOLUME 8.6 fl (7.5-11.1); PLATELET COUNT 254 K/MM3 (134-434); RDW 15.9 % (11.6-15.6); WHITE BLOOD COUNT 16.8 K/mm3 (4.0-10.0)
--- NOTE | 2016-07-03 14:36 | PN ---
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, Physician - Current Medication List Current Medications: Active Medications Acetaminophen (Tylenol Suppository -) 650 mg MD Q6H PRN PRN Reason: FEVER OR PAIN Last Admin: 06/30/16 15:05 Dose: 650 mg Acetaminophen (Ofirmev Injection -) 1,000 mg IVPB Q6H PRN Last Admin: 07/02/16 12:30 Dose: 1,000 mg Albuterol Sulfate (Ventolin 0.083% Nebulizer Soln -) 1 amp NEB Q6HPO LARRY Last Admin: 07/03/16 12:38 Dose: 1 amp Albuterol/Ipratropium (Duoneb -) 1 amp NEB Q6H PRN PRN Reason: SHORTNESS OF BREATH Amino Acids (Prosource No Carb Liquid Pkt) 30 ml PO BID@0800,1730 [facility] Last Admin: 07/03/16 08:37 Dose: Not Given Ascorbic Acid (Vitamin C -) 500 mg PO TID LARRY Last Admin: 07/03/16 14:25 Dose: Not Given Atorvastatin Calcium (Lipitor -) 10 mg PO HS LARRY Last Admin: 07/02/16 21:48 Dose: Not Given Collagenase (Santyl -) 1 applic TP DAILY [facility] Last Admin: 07/03/16 09:43 Dose: 1 applic Fentanyl (Duragesic 12mcg Patch -) 1 patch TD Q72H [facility] Last Admin: 07/03/16 08:41 Dose: Not Given Heparin Sodium (Porcine) (Heparin -) 1,000 unit IVPUSH PRN PRN PRN Reason: Heparin Heparin Sodium (Porcine) (Heparin -) 5,000 unit IVPUSH PRN PRN PRN Reason: Heparin Last Admin: 07/03/16 07:38 Dose: 5,000 unit Heparin Sodium (Porcine) 25, (000 unit/ Sodium Chloride) 500 mls @ 16 mls/hr IV TITR LARRY; 800 UNIT/HR PRN Reason: Protocol Last Titration: 07/03/16 07:37 Dose: 1,100 unit/hr Dextrose/Sodium Chloride (D5-1/2ns -) 1,000 mls @ 75 mls/hr IV ASDIR LARRY Last Admin: 07/03/16 08:47 Dose: 75 mls/hr Ertapenem 1 gm/ Sodium (Chloride) 50 mls @ 50 mls/hr IVPB DAILY [facility]ARRY PRN Reason: Protocol Last Admin: 07/03/16 09:42 Dose: 50 mls/hr Ibuprofen (Caldolor Injection -) 400 mg IVPB Q6H PRN PRN Reason: FEVER Last Admin: 07/03/16 05:15 Dose: 400 mg Insulin Aspart (Novolog Vial Sliding Scale -) 1 vial SQ ACHS LARRY PRN Reason: Protocol Last Admin: 07/03/16 10:19 Dose: Not Given Insulin Detemir (Levemir Vial) 15 units SQ BID [facility] Last Admin: 07/03/16 10:19 Dose: Not Given Ipratropium [place] (Atrovent 0.02% Nebulizer -) 1 amp NEB Q6HPO [facility] Last Admin: 07/03/16 12:38 Dose: 1 amp Metoprolol Succinate (Toprol Xl -) 25 mg PO DAILY [facility] Last Admin: 07/03/16 09:11 Dose: Not Given Mirtazapine (Remeron -) 30 mg PO HS [facility] Last Admin: 07/02/16 21:48 Dose: Not Given Miscellaneous (Duragesic Patch Waste) 1 each TD PRN PRN Olanzapine (Zyprexa -) 5 mg PO BID [facility] Last Admin: 07/03/16 09:11 Dose: Not Given Pantoprazole Sodium (Protonix -) 20 mg PO DAILY [facility] Last Admin: 07/03/16 09:10 Dose: Not Given Senna (Senna -) 1 tab PO HS [facility] Last Admin: 07/02/16 21:48 Dose: Not Given Sodium Bicarbonate (Sodium Bicarbonate -) 650 mg PO BID [facility] Last Admin: 07/03/16 09:11 Dose: Not Given Tamsulosin HCl (Flomax -) 0.4 mg PO DAILY@0830 [facility] Last Admin: 07/03/16 08:38 Dose: Not Given Vancomycin HCl (Vancomycin (Pre-Docked)) 1,000 mg IVPB DAILY [facility] PRN Reason: Protocol Last Admin: 07/03/16 09:42 Dose: 1,000 mg Zinc Sulfate (Orazinc -) 220 mg PO DAILY [facility] Last Admin: 07/03/16 09:10 Dose: Not Given - Objective Vital Signs: Vital Signs Temperature 97.9 F 07/03/16 14:24 Pulse Rate 75 07/03/16 14:24 Respiratory Rate 19 07/03/16 14:24 Blood Pressure 131/62 07/03/16 14:24 O2 Sat by Pulse Oximetry (%) 99 07/03/16 12:37 Constitutional: Yes: Calm HENT: Yes: Other (INTUBATED) Neck: Yes: WNL Cardiovascular: Yes: WNL Respiratory: Yes: WNL Gastrointestinal: Yes: WNL Edema: No (B/L BKA) Labs: CBC, BMP 07/03/16 14:22 07/03/16 05:00 INR, PTT INR 1.08 (0.82-1.09) 07/01/16 01:45 Problem List - Problems (1) Pneumonia Code(s): J18.9 - PNEUMONIA, UNSPECIFIED ORGANISM Qualifiers: Pneumonia type: due to unspecified organism Laterality: left Lung location: lower lobe of lung Qualified Code(s): J18.1 - Lobar pneumonia, unspecified organism (2) Type 2 diabetes mellitus with hyperosmolarity without nonketotic hyperglycemic-hyperosmolar coma ([facility]) Code(s): E11.00 - TYPE 2 DIAB W HYPROSM W/O NONKET HYPRGLY-HYPROS COMA ([facility]) (3) UTI (urinary tract infection) Code(s): N39.0 - URINARY TRACT INFECTION, SITE NOT SPECIFIED Qualifiers: Urinary tract infection type: acute cystitis Hematuria presence: without hematuria Qualified Code(s): N30.00 - Acute cystitis without hematuria (4) Anemia Code(s): D64.9 - ANEMIA, UNSPECIFIED Qualifiers: Anemia type: iron deficiency (5) CHF (congestive heart failure) Code(s): I50.9 - HEART FAILURE, UNSPECIFIED Qualifiers: Congestive heart failure type: diastolic Congestive heart failure chronicity: chronic Qualified Code(s): I50.32 - Chronic diastolic ( congestive) heart failure (6) CKD (chronic kidney disease) Code(s): N18.9 - CHRONIC KIDNEY DISEASE, UNSPECIFIED (7) HTN (hypertension) Code(s): I10 - ESSENTIAL (PRIMARY) HYPERTENSION Qualifiers: Hypertension type: essential hypertension Qualified Code(s): I10 - Essential (primary) hypertension Assessment/Plan (1) Septic shock Assessment/Plan: IV ABX PRESSERS ID ON BOARD Code(s): A41.9 - SEPSIS, UNSPECIFIED ORGANISM R65.21 - SEVERE SEPSIS WITH SEPTIC SHOCK (2) UTI (urinary tract infection) Assessment/Plan: IV ABX ESBL ID ON BOARD Code(s): N39.0 - URINARY TRACT INFECTION, SITE NOT SPECIFIED Qualifiers: Urinary tract infection type: acute cystitis Hematuria presence: without hematuria Qualified Code(s): N30.00 - Acute cystitis without hematuria (3) Fever Code(s): R50.9 - FEVER, UNSPECIFIED (4) Pneumonia Assessment/Plan: F/U CXR NOTED ABX BIPAP Code(s): J18.9 - PNEUMONIA, UNSPECIFIED ORGANISM Qualifiers: Pneumonia type: due to unspecified organism Laterality: left Lung location: lower lobe of lung Qualified Code(s): J18.1 - Lobar pneumonia, unspecified organism (5) CKD (chronic kidney disease) Code(s): N18.9 - CHRONIC KIDNEY DISEASE, UNSPECIFIED (6) S/P bilateral below knee amputation Assessment/Plan: MONITOR Code(s): Z89.512 - ACQUIRED ABSENCE OF LEFT LEG BELOW KNEE Z89.511 - ACQUIRED ABSENCE OF RIGHT LEG BELOW KNEE (7) Decubitus ulcer Assessment/Plan: wound care on abx Code(s): L89.90 - PRESSURE ULCER OF UNSPECIFIED SITE, UNSPECIFIED STAGE (8) Anemia Assessment/Plan: REPEAT TRANSFUSE Code(s): D64.9 - ANEMIA, UNSPECIFIED Qualifiers: Anemia type: iron deficiency (9) Diabetes Assessment/Plan: MONITOR B/S ENDO CONSULT SS/LEVEMIR Code(s): E11.9 - TYPE 2 DIABETES MELLITUS WITHOUT COMPLICATIONS Qualifiers: Diabetes mellitus type: type 2 (10) DVT, bilateral lower limbs Assessment/Plan: ON HEPARIN DRIP Code(s): I82.403 - ACUTE EMBOLISM AND THOMBOS UNSP DEEP VEINS OF LOW EXTRM, 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
--- NOTE | 2016-07-03 16:27 | EKG ---
Test Reason : Blood Pressure : / mmHG Vent. Rate : 091 BPM Atrial Rate : 091 BPM P-R Int : 104 ms QRS Dur : 084 ms QT Int : 362 ms P-R-T Axes : 013 -23 095 degrees QTc Int : 445 ms SINUS RHYTHM WITH SHORT SD WITH PREMATURE ATRIAL COMPLEXES NONSPECIFIC ST AND T WAVE ABNORMALITY ABNORMAL ECG WHEN COMPARED WITH ECG OF 02-JUL-2016 08:44, PREMATURE VENTRICULAR COMPLEXES ARE NO LONGER PRESENT PREMATURE ATRIAL COMPLEXES ARE NOW PRESENT NONSPECIFIC T WAVE ABNORMALITY, IMPROVED IN LATERAL LEADS Confirmed by XI YOUSSEF MD ([id number]) on 07/03/2016 4:26:52 PM Referred By: BREANNA SANFORD Confirmed By:XI YOUSSEF MD
--- NOTE | 2016-07-03 16:29 | EKG ---
Test Reason : Blood Pressure : / mmHG Vent. Rate : 116 BPM Atrial Rate : 116 BPM P-R Int : 124 ms QRS Dur : 084 ms QT Int : 324 ms P-R-T Axes : 030 -07 121 degrees QTc Int : 450 ms SINUS TACHYCARDIA WITH OCCASIONAL PREMATURE VENTRICULAR COMPLEXES NONSPECIFIC ST AND T WAVE ABNORMALITY ABNORMAL ECG WHEN COMPARED WITH ECG OF 01-JUL-2016 09:11, PREMATURE SUPRAVENTRICULAR COMPLEXES ARE NO LONGER PRESENT Confirmed by DOMONIQUE VERMA, XI ([id number]) on 07/03/2016 4:28:32 PM Referred By: ANDREA SANFORD Confirmed By:XI YOUSSEF MD
[2016-07-03] MEDS: ATORVASTATIN CA 10 MG TABLET (FP) PO SCH (21:21)
[2016-07-03] MEDS: SENNOSIDES 8.6MG TABLET (FP) PO SCH (21:22)
[2016-07-03] MEDS: MIRTAZAPINE 30 MG TABLET (FP) PO SCH (21:22)
[2016-07-03] MEDS: DEXTROSE 5%-WATER - 1,000 ML IV SCH (21:23)
[2016-07-04] MEDS: ALBUTEROL SO4 0.083% IH SOL 2.5 MG/3 ML VIAL.NEB. NEB SCH ×4 (00:17→18:41)
[2016-07-04] MEDS: IPRATROPIUM BR 0.02% 0.5 MG/2.5 ML VIAL.NEB. NEB SCH ×4 (00:17→18:41)
[2016-07-04] MEDS: ASCORBIC ACID 500 MG TABLET (FP) PO SCH ×3 (05:50→22:57)
[2016-07-04 06:13] LABS: MCH 30.4 pg (25.7-33.7); MCHC 32.5 g/dl (32.0-36.0); MEAN CELL VOLUME 93.4 fl (80-96); MEAN PLT VOLUME 8.7 fl (7.5-11.1); PLATELET COUNT 292 K/MM3 (134-434); RDW 16.1 % (11.6-15.6); WHITE BLOOD COUNT 11.4 K/mm3 (4.0-10.0)
[2016-07-04 06:37] LABS: CALCIUM 7.7 mg/dL (8.5-10.1); COCKROFT - GAULT 53.125; CREATININE 0.7 mg/dL (0.55-1.02); MAGNESIUM 1.9 mg/dL (1.8-2.4); PHOSPHOROUS 2.4 mg/dL (2.5-4.9)
[2016-07-04] MEDS: INSULIN SLIDING SCALE (NOVOLOG) 1 VIAL SQ SCH ×4 (06:40→22:56)
[2016-07-04] MEDS: AMINO ACIDS/PROTEIN HYDROLYS 30 ML LIQUID.PKT PO SCH ×2 (08:53→19:04)
[2016-07-04] MEDS: TAMSULOSIN HCL 0.4 MG CAP.ER.24H (FP) PO SCH (08:54)
[2016-07-04] MEDS: VANCOMYCIN 1 GRAM (PRE-DOCKED) 1,000 MG/250 ML BAG IVPB SCH (09:00)
[2016-07-04] MEDS: SODIUM BICARBONATE 650 MG TABLET PO SCH ×2 (09:01→22:57)
[2016-07-04] MEDS: PANTOPRAZOLE 20 MG TABLET (FP) PO SCH (09:01)
[2016-07-04] MEDS: OLANZapine 5 MG TABLET PO SCH ×2 (09:01→22:57)
[2016-07-04] MEDS: ZINC SULFATE 220 MG CAPSULE (FP) PO SCH (09:01)
[2016-07-04] MEDS: METOPROLOL SUCCINATE 25 MG TAB.SR.24H (FP) PO SCH (09:01)
[2016-07-04] MEDS: INSULIN DETEMIR 100 UNITS/ML MDV SQ SCH ×2 (09:06→22:55)
--- NOTE | 2016-07-04 10:05 | CONSULT ---
Consult - text type - Consultation Consultation Note: Renal consult for Hypernatremia This is a 80 year old woman with PMhx of Multiple GIANNI's, Hypernatremia, Hypertension, DM, HLD, GERD who presented from OR with hypoxia and found to have Septic shock from UTI/Infected Sacral Decubitis Ulcers with GIANNI with Cr of 2.2 and worsening hypernatremia. Pt currently in the ICU on BIPAP. Required pressers, but currently is off. Conley in place. On D5W. Pt is groggy and does not respond to verbal commands. PMhx: as above allergies: NKDA Family Hx: NC Social Hx: No T/A/D ROS: unable to obtain because of clincial status Home Medications Medication Instructions Recorded Ascorbate Calcium [Vitamin C] 500 mg PO TID 03/24/16 Escitalopram Oxalate [Lexapro -] 10 mg PO DAILY 03/24/16 Metoprolol Succinate [Toprol XL -] 25 mg PO DAILY 03/24/16 Mirtazapine [Remeron -] 30 mg PO DAILY 03/24/16 Olanzapine [Zyprexa] 7.5 mg PO DAILY 03/24/16 Omeprazole 20 mg PO DAILY 03/24/16 Sennosides [Senna] 17.2 mg PO HS 03/24/16 Simvastatin 20 mg PO DAILY 03/24/16 Tamsulosin HCl [Flomax -] 0.8 mg PO DAILY 03/24/16 Vit B Cmplx 3/FA/Vit C/Biotin 1 each PO DAILY 03/24/16 [Nephro-Rafael Rx Tablet] Albuterol 2.5/Ipratropium 0.5 1 amp NEB Q6H PRN #0 amp 04/20/16 [Duoneb -] Amino Acids/Protein Hydrolys 30 ml PO BID@0800,1730 packet 04/20/16 [Prostat Sugar-Free Packet -] FENTANYL 12mcg PATCH [DURAGESIC 1 patch TD Q72H patch.td72 MDD 1 04/20/16 12mcg PATCH -] Insulin Sliding Scale [Novolog 1 vial SQ ACHS units 04/20/16 Vial Sliding Scale -] Levofloxacin [Levaquin -] 250 mg PO DAILY tablet 04/20/16 Oxycodone HCl [Roxicodone -] 5 mg PO BID PRN #0 tablet MDD 2 04/20/16 Sodium Bicarbonate - 650 mg PO BID tablet 04/20/16 Zinc Sulfate [Orazinc -] 220 mg PO DAILY capsule 04/20/16 Acetaminophen [Tylenol] 650 mg PO Q4H PRN 06/30/16 Collagenase Clostridium Hist. 1 applic TP DAILY 06/30/16 [Santyl -] Darbepoetin Joseph in Polysorbat 25 mcg SQ TH 06/30/16 [Aranesp] Ferrous Sulfate [Feosol] 325 mg PO TID 06/30/16 Insulin Glargine,Hum.rec.anlog 7 units SQ HS 06/30/16 [Lantus Solostar PEN (NF)] Insulin Glargine,Hum.rec.anlog 12 units SQ 0900 06/30/16 [Lantus Solostar PEN (NF)] Menthol/Zinc Oxide [Calmoseptine 0 gm TP QID 06/30/16 Ointment] Potassium Phosphate,Monobasic 500 mg PO DAILY 06/30/16 [K-Phos Original] Prochlorperazine Maleate 5 mg PO BID 06/30/16 [Compazine] Vital Signs Temperature 99.4 F 07/04/16 06:00 Pulse Rate 75 07/04/16 08:00 Respiratory Rate 24 07/04/16 08:00 Blood Pressure 107/51 07/04/16 08:00 O2 Sat by Pulse Oximetry (%) 100 07/04/16 08:00 Intake & Output 07/01/16 07/02/16 07/03/16 07/04/16 23:59 23:59 23:59 23:59 Intake Total 2846 2940.4 3300 1144 Output Total 4907 540 8247 Balance 1346 2790.4 1900 1144 Weight 104 lb 11.513 oz 108 lb 6.4 oz 114 lb 114 lb 4 oz Gen: Lethagic on BIPAP HEENT: NC/AT, BIPAP, No JVD CVS: RRR, No M/R Lungs: Dec BS, no rales Abd: soft NT/ND Ext: s/p B/L BKA, trace sacral edema : conley in place with yellow urine CBC, BMP 07/04/16 05:20 07/04/16 05:20 Laboratory Tests 04/16/16 04/17/16 07/04/16 06:25 07:30 05:20 Hct 25.3 L Calcium 7.1 L 6.9 L* Phosphorus 1.6 L D 3.0 D Magnesium 1.7 L 1.8 07/04/16 05:20 Hct Calcium 7.7 L Phosphorus 2.4 L D Magnesium 1.9 Current Medications Acetaminophen (Tylenol Suppository -) 650 mg [place] Q6H PRN PRN Reason: FEVER OR PAIN Last Admin: 06/30/16 15:05 Dose: 650 mg Acetaminophen (Ofirmev Injection -) 1,000 mg IVPB Q6H PRN Last Admin: 07/02/16 12:30 Dose: 1,000 mg Albuterol Sulfate (Ventolin 0.083% Nebulizer Soln -) 1 amp NEB Q6HPO [facility] Last Admin: 07/04/16 06:50 Dose: 1 amp Albuterol/Ipratropium (Duoneb -) 1 amp NEB Q6H PRN PRN Reason: SHORTNESS OF BREATH Amino Acids (Prosource No Carb Liquid Pkt) 30 ml PO BID@0800,1730 [facility] Last Admin: 07/04/16 08:53 Dose: Not Given Ascorbic Acid (Vitamin C -) 500 mg PO TID [facility] Last Admin: 07/04/16 05:50 Dose: Not Given Atorvastatin Calcium (Lipitor -) 10 mg PO HS [facility] Last Admin: 07/03/16 21:21 Dose: Not Given Collagenase (Santyl -) 1 applic TP DAILY [facility] Last Admin: 07/03/16 09:43 Dose: 1 applic Fentanyl (Duragesic 12mcg Patch -) 1 patch TD Q72H [facility] Last Admin: 07/03/16 08:41 Dose: Not Given Heparin Sodium (Porcine) (Heparin -) 1,000 unit IVPUSH PRN PRN PRN Reason: Heparin Heparin Sodium (Porcine) (Heparin -) 5,000 unit IVPUSH PRN PRN PRN Reason: Heparin Last Admin: 07/03/16 07:38 Dose: 5,000 unit Heparin Sodium (Porcine) 25, (000 unit/ Sodium Chloride) 500 mls @ 16 mls/hr IV TITR LARRY; 800 UNIT/HR PRN Reason: Protocol Last Admin: 07/03/16 15:04 Dose: 24 mls/hr Ertapenem 1 gm/ Sodium (Chloride) 50 mls @ 50 mls/hr IVPB DAILY [facility] PRN Reason: Protocol Last Admin: 07/03/16 09:42 Dose: 50 mls/hr Dextrose (D5w -) 1,000 mls @ 75 mls/hr IV ASDIR [facility] Last Admin: 07/03/16 21:23 Dose: 75 mls/hr Ibuprofen (Caldolor Injection -) 400 mg IVPB Q6H PRN PRN Reason: FEVER Last Admin: 07/03/16 05:15 Dose: 400 mg Insulin Aspart (Novolog Vial Sliding Scale -) 1 vial SQ ACHS [facility] PRN Reason: Protocol Last Admin: 07/04/16 06:40 Dose: 7 units Insulin Detemir (Levemir Vial) 15 units SQ BID [facility] Last Admin: 07/04/16 09:06 Dose: 15 units Ipratropium [place] (Atrovent 0.02% Nebulizer -) 1 amp NEB Q6HPO [facility] Last Admin: 07/04/16 06:50 Dose: 1 amp Metoprolol Succinate (Toprol Xl -) 25 mg PO DAILY [facility] Last Admin: 07/04/16 09:01 Dose: Not Given Mirtazapine (Remeron -) 30 mg PO HS [facility] Last Admin: 07/03/16 21:22 Dose: Not Given Miscellaneous (Duragesic Patch Waste) 1 each TD PRN PRN Olanzapine (Zyprexa -) 5 mg PO BID [facility] Last Admin: 07/04/16 09:01 Dose: Not Given Pantoprazole Sodium (Protonix -) 20 mg PO DAILY [facility] Last Admin: 07/04/16 09:01 Dose: Not Given Senna (Senna -) 1 tab PO [facility] Last Admin: 07/03/16 21:22 Dose: Not Given Sodium Bicarbonate (Sodium Bicarbonate -) 650 mg PO BID [facility] Last Admin: 07/04/16 09:01 Dose: Not Given Tamsulosin HCl (Flomax -) 0.4 mg PO DAILY@0830 [facility] Last Admin: 07/04/16 08:54 Dose: Not Given Vancomycin HCl (Vancomycin (Pre-Docked)) 1,000 mg IVPB DAILY [facility] PRN Reason: Protocol Last Admin: 07/04/16 09:00 Dose: 1,000 mg Zinc Sulfate (Orazinc -) 220 mg PO DAILY [facility] Last Admin: 07/04/16 09:01 Dose: Not Given A/P 80 year old woman with PMhx of Multiple GIANNI's, Hypernatremia, Hypertension, DM, HLD, GERD who presented from OR with hypoxia and found to have Septic shock from UTI/Infected Sacral Decubitis Ulcers with GIANNI with Cr of 2.2 and worsening hypernatremia. #Hypernatremia Free water deficit is 1.85 L continue D5W at 75 cc per hour Trend Na Daily unlikey that hypernatremia is main contrbuter to AMS #Septic Shock/UTI/Infected Sacral Decubitis Ulcers Continue Abx as per ID Check Vanco levels Supportive Care Keep MAP> 65 CVP goal of 8-10 (currently 5), PRN isotonic saline bolous as needed #Hypoxic Respiratory Failure Continue BIPAP as per pulmonary #Anemia Requring Transfusion Trend CBC Transfuse as per ICU protocol #Hypophosphatemia Give K-Phos IV 30 mmol x 1 Trend Phos Thank you Vahid Manzano DO
[2016-07-04] MEDS ORDERED: POTASSIUM PHOSPHATE 30 MM in DEXTROSE 5%-WATER - 250 ML IVPB ONE (10:16)
--- NOTE | 2016-07-04 10:19 | PN ---
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, Physician History of Present Illness: Transferred back to ICU after labored breathing Low grade fever Very lethargic on bipap CXR shows possible new RLL infiltrate - Current Medication List Current Medications: Active Medications Acetaminophen (Tylenol Suppository -) 650 mg [place] Q6H PRN PRN Reason: FEVER OR PAIN Last Admin: 06/30/16 15:05 Dose: 650 mg Acetaminophen (Ofirmev Injection -) 1,000 mg IVPB Q6H PRN Last Admin: 07/02/16 12:30 Dose: 1,000 mg Albuterol Sulfate (Ventolin 0.083% Nebulizer Soln -) 1 amp NEB Q6HPO [facility] Last Admin: 07/04/16 06:50 Dose: 1 amp Albuterol/Ipratropium (Duoneb -) 1 amp NEB Q6H PRN PRN Reason: SHORTNESS OF BREATH Amino Acids (Prosource No Carb Liquid Pkt) 30 ml PO BID@0800,1730 [facility] Last Admin: 07/04/16 08:53 Dose: Not Given Ascorbic Acid (Vitamin C -) 500 mg PO TID [facility] Last Admin: 07/04/16 05:50 Dose: Not Given Atorvastatin Calcium (Lipitor -) 10 mg PO HS [facility] Last Admin: 07/03/16 21:21 Dose: Not Given Collagenase (Santyl -) 1 applic TP DAILY [facility] Last Admin: 07/03/16 09:43 Dose: 1 applic Fentanyl (Duragesic 12mcg Patch -) 1 patch TD Q72H [facility] Last Admin: 07/03/16 08:41 Dose: Not Given Heparin Sodium (Porcine) (Heparin -) 1,000 unit IVPUSH PRN PRN PRN Reason: Heparin Heparin Sodium (Porcine) (Heparin -) 5,000 unit IVPUSH PRN PRN PRN Reason: Heparin Last Admin: 07/03/16 07:38 Dose: 5,000 unit Heparin Sodium (Porcine) 25, (000 unit/ Sodium Chloride) 500 mls @ 16 mls/hr IV TITR LARRY; 800 UNIT/HR PRN Reason: Protocol Last Admin: 07/03/16 15:04 Dose: 24 mls/hr Ertapenem 1 gm/ Sodium (Chloride) 50 mls @ 50 mls/hr IVPB DAILY [facility] PRN Reason: Protocol Last Admin: 07/03/16 09:42 Dose: 50 mls/hr Dextrose (D5w -) 1,000 mls @ 75 mls/hr IV ASDIR [facility] Last Admin: 07/03/16 21:23 Dose: 75 mls/hr Potassium Phosphate 30 mm/ (Dextrose) 260 mls @ 62.5 mls/hr IVPB ONCE ONE Stop: 07/04/16 14:25 Ibuprofen (Caldolor Injection -) 400 mg IVPB Q6H PRN PRN Reason: FEVER Last Admin: 07/03/16 05:15 Dose: 400 mg Insulin Aspart (Novolog Vial Sliding Scale -) 1 vial SQ ACHS [facility] PRN Reason: Protocol Last Admin: 07/04/16 06:40 Dose: 7 units Insulin Detemir (Levemir Vial) 15 units SQ BID [facility] Last Admin: 07/04/16 09:06 Dose: 15 units Ipratropium [place] (Atrovent 0.02% Nebulizer -) 1 amp NEB Q6HPO [facility] Last Admin: 07/04/16 06:50 Dose: 1 amp Metoprolol Succinate (Toprol Xl -) 25 mg PO DAILY [facility] Last Admin: 07/04/16 09:01 Dose: Not Given Mirtazapine (Remeron -) 30 mg PO HS [facility] Last Admin: 07/03/16 21:22 Dose: Not Given Miscellaneous (Duragesic Patch Waste) 1 each TD PRN PRN Olanzapine (Zyprexa -) 5 mg PO BID [facility] Last Admin: 07/04/16 09:01 Dose: Not Given Pantoprazole Sodium (Protonix -) 20 mg PO DAILY [facility] Last Admin: 07/04/16 09:01 Dose: Not Given Senna (Senna -) 1 tab PO HS [facility] Last Admin: 07/03/16 21:22 Dose: Not Given Sodium Bicarbonate (Sodium Bicarbonate -) 650 mg PO BID [facility] Last Admin: 07/04/16 09:01 Dose: Not Given Tamsulosin HCl (Flomax -) 0.4 mg PO DAILY@0830 [facility] Last Admin: 07/04/16 08:54 Dose: Not Given Vancomycin HCl (Vancomycin (Pre-Docked)) 1,000 mg IVPB DAILY [facility] PRN Reason: Protocol Last Admin: 07/04/16 09:00 Dose: 1,000 mg Zinc Sulfate (Orazinc -) 220 mg PO DAILY [facility] Last Admin: 07/04/16 09:01 Dose: Not Given - Objective Vital Signs: Vital Signs Temperature 99.4 F 07/04/16 06:00 Pulse Rate 73 07/04/16 10:07 Respiratory Rate 24 07/04/16 08:00 Blood Pressure 107/51 07/04/16 08:00 O2 Sat by Pulse Oximetry (%) 99 07/04/16 10:07 Constitutional: Yes: No Distress Cardiovascular: Yes: Regular Rate and Rhythm, S1, S2 Respiratory: Yes: Diminished Gastrointestinal: Yes: Normal Bowel Sounds, Soft. No: Tenderness Extremities: Yes: Other (s/p bilat BKA) Labs: CBC, BMP 07/04/16 05:20 07/04/16 05:20 INR, PTT INR 1.08 (0.82-1.09) 07/01/16 01:45 Assessment/Plan UTI/ Sepsis secomdary to UTI Possible new RLL pneumonia Decubitus ulcer LE DVT Azotemia- improved Continue ertapenem/ vancomycin Repeat c/s
--- NOTE | 2016-07-04 10:46 | PN ---
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 (short form) - Note 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: Seen and examined in the ICU Cont on NIPPV Remains altered, not responsive to verbal BP stable cont on heparin Na improving w/ free water Current Medications Acetaminophen (Tylenol Suppository -) 650 mg [place] Q6H PRN PRN Reason: FEVER OR PAIN Last Admin: 06/30/16 15:05 Dose: 650 mg Acetaminophen (Ofirmev Injection -) 1,000 mg IVPB Q6H PRN Last Admin: 07/02/16 12:30 Dose: 1,000 mg Albuterol Sulfate (Ventolin 0.083% Nebulizer Soln -) 1 amp NEB Q6HPO [facility] Last Admin: 07/04/16 06:50 Dose: 1 amp Albuterol/Ipratropium (Duoneb -) 1 amp NEB Q6H PRN PRN Reason: SHORTNESS OF BREATH Amino Acids (Prosource No Carb Liquid Pkt) 30 ml PO BID@0800,1730 [facility] Last Admin: 07/04/16 08:53 Dose: Not Given Ascorbic Acid (Vitamin C -) 500 mg PO TID [facility] Last Admin: 07/04/16 05:50 Dose: Not Given Atorvastatin Calcium (Lipitor -) 10 mg PO HS [facility] Last Admin: 07/03/16 21:21 Dose: Not Given Collagenase (Santyl -) 1 applic TP DAILY [facility] Last Admin: 07/03/16 09:43 Dose: 1 applic Fentanyl (Duragesic 12mcg Patch -) 1 patch TD Q72H [facility] Last Admin: 07/03/16 08:41 Dose: Not Given Heparin Sodium (Porcine) (Heparin -) 1,000 unit IVPUSH PRN PRN PRN Reason: Heparin Heparin Sodium (Porcine) (Heparin -) 5,000 unit IVPUSH PRN PRN PRN Reason: Heparin Last Admin: 07/03/16 07:38 Dose: 5,000 unit Heparin Sodium (Porcine) 25, (000 unit/ Sodium Chloride) 500 mls @ 16 mls/hr IV TITR LARRY; 800 UNIT/HR PRN Reason: Protocol Last Admin: 07/03/16 15:04 Dose: 24 mls/hr Ertapenem 1 gm/ Sodium (Chloride) 50 mls @ 50 mls/hr IVPB DAILY [facility] PRN Reason: Protocol Last Admin: 07/03/16 09:42 Dose: 50 mls/hr Dextrose (D5w -) 1,000 mls @ 75 mls/hr IV ASDIR [facility] Last Admin: 07/03/16 21:23 Dose: 75 mls/hr Potassium Phosphate 30 mm/ (Dextrose) 260 mls @ 62.5 mls/hr IVPB ONCE ONE Stop: 07/04/16 14:25 Ibuprofen (Caldolor Injection -) 400 mg IVPB Q6H PRN PRN Reason: FEVER Last Admin: 07/03/16 05:15 Dose: 400 mg Insulin Aspart (Novolog Vial Sliding Scale -) 1 vial SQ ACHS [facility] PRN Reason: Protocol Last Admin: 07/04/16 06:40 Dose: 7 units Insulin Detemir (Levemir Vial) 15 units SQ BID [facility] Last Admin: 07/04/16 09:06 Dose: 15 units Ipratropium [place] (Atrovent 0.02% Nebulizer -) 1 amp NEB Q6HPO [facility] Last Admin: 07/04/16 06:50 Dose: 1 amp Metoprolol Succinate (Toprol Xl -) 25 mg PO DAILY [facility] Last Admin: 07/04/16 09:01 Dose: Not Given Mirtazapine (Remeron -) 30 mg PO HS [facility] Last Admin: 07/03/16 21:22 Dose: Not Given Miscellaneous (Duragesic Patch Waste) 1 each TD PRN PRN Olanzapine (Zyprexa -) 5 mg PO BID [facility] Last Admin: 07/04/16 09:01 Dose: Not Given Pantoprazole Sodium (Protonix -) 20 mg PO DAILY [facility] Last Admin: 07/04/16 09:01 Dose: Not Given Senna (Senna -) 1 tab PO HS [facility] Last Admin: 07/03/16 21:22 Dose: Not Given Sodium Bicarbonate (Sodium Bicarbonate -) 650 mg PO BID [facility] Last Admin: 07/04/16 09:01 Dose: Not Given Tamsulosin HCl (Flomax -) 0.4 mg PO DAILY@0830 [facility] Last Admin: 07/04/16 08:54 Dose: Not Given Vancomycin HCl (Vancomycin (Pre-Docked)) 1,000 mg IVPB DAILY [facility] PRN Reason: Protocol Last Admin: 07/04/16 09:00 Dose: 1,000 mg Zinc Sulfate (Orazinc -) 220 mg PO DAILY [facility] Last Admin: 07/04/16 09:01 Dose: Not Given Vital Signs Period Temp Pulse Resp BP Sys/Chávez Pulse Ox Last 24 Hr 97.9 F-100.4 F 72-88 16-28 107-148/51-68 99-100 Intake & Output 07/01/16 07/02/16 07/03/16 07/04/16 23:59 23:59 23:59 23:59 Intake Total 2846 2940.4 3300 1144 Output Total 7740 531 2997 Balance 1346 2790.4 1900 1144 Weight 47.5 kg 49.169 kg 51.71 kg 51.823 kg Exam: Neuro: localized to noxiuos stim, non verbal Pulm: RLL crackles CV: RRR Abd: SNTND Ext: stumps c/d/i CBCD WBC 11.4 K/mm3 (4.0-10.0) H D 07/04/16 05:20 RBC 2.71 M/mm3 (3.60-5.2) L 07/04/16 05:20 Hgb 8.2 GM/dL (10.7-15.3) L 07/04/16 05:20 Hct 25.3 % (32.4-45.2) L 07/04/16 05:20 MCV 93.4 fl (80-96) 07/04/16 05:20 MCHC 32.5 g/dl (32.0-36.0) 07/04/16 05:20 RDW 16.1 % (11.6-15.6) H 07/04/16 05:20 Plt Count 292 K/MM3 (134-434) 07/04/16 05:20 MPV 8.7 fl (7.5-11.1) 07/04/16 05:20 CMP Sodium 150 mmol/L (136-145) H 07/04/16 05:20 Potassium 3.8 mmol/L (3.5-5.1) 07/04/16 05:20 Chloride 117 mmol/L (98-107) H 07/04/16 05:20 Carbon Dioxide 24 mmol/L (21-32) 07/04/16 05:20 Anion Gap 9 (8-16) 07/04/16 05:20 BUN 24 mg/dL (7-18) H D 07/04/16 05:20 Creatinine 0.7 mg/dL (0.55-1.02) 07/04/16 05:20 Creat Clearance w eGFR 27.14 (>60) 07/01/16 05:45 Random Glucose 272 mg/dL (74-106) H D 07/04/16 05:20 Calcium 7.7 mg/dL (8.5-10.1) L 07/04/16 05:20 Total Bilirubin 0.2 mg/dL (0.2-1.0) 07/01/16 05:45 AST 15 U/L (15-37) 07/01/16 05:45 ALT 13 U/L (12-78) 07/01/16 05:45 Alkaline Phosphatase 83 U/L (45-117) 07/01/16 05:45 Total Protein 6.6 g/dl (6.4-8.2) 07/01/16 05:45 Albumin 1.7 g/dl (3.4-5.0) L 07/01/16 05:45 CARDIAC ENZYMES Creatine Kinase 36 IU/L (26-192) 07/02/16 13:50 Troponin I 0.03 ng/ml (0.00-0.05) 07/02/16 13:50 CXR: progressive RML/RLL infiltrate Microbiology 06/30/16 09:25 Blood - Peripheral Venous Blood Culture - Preliminary NO GROWTH OBTAINED AFTER 96 HOURS, INCUBATION TO CONTINUE FOR 1 DAYS. 06/30/16 09:25 Blood - Peripheral Venous Blood Culture - Preliminary NO GROWTH OBTAINED AFTER 96 HOURS, INCUBATION TO CONTINUE FOR 1 DAYS. 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 07/02/16 16:00 Blood - Peripheral Venous Blood Culture - Preliminary NO GROWTH OBTAINED AFTER 24 HOURS, INCUBATION TO CONTINUE FOR 4 DAYS. 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
[2016-07-04] MEDS: ERTAPENEM SODIUM 1 GM in SODIUM CHLORIDE 50 ML IVPB SCH (10:49)
[2016-07-04] MEDS: COLLAGENASE CLOSTRIDIUM HIST. 30 GRAMS TUBE TP SCH (10:49)
[2016-07-04] MEDS: DEXTROSE 5%-WATER - 1,000 ML IV SCH (12:44)
[2016-07-04] MEDS ORDERED: PT OWN MED DRAWER 7, Y5N ONE (18:12)
[2016-07-04] MEDS: HEPARIN - 25,000 UNIT in SODIUM CHLORIDE 495 ML IV SCH (19:06)
[2016-07-04] MEDS: MIRTAZAPINE 30 MG TABLET (FP) PO SCH (22:56)
[2016-07-04] MEDS: ATORVASTATIN CA 10 MG TABLET (FP) PO SCH (22:56)
[2016-07-04] MEDS: SENNOSIDES 8.6MG TABLET (FP) PO SCH (22:57)
[2016-07-05] MEDS: DEXTROSE 5%-WATER - 1,000 ML IV SCH ×2 (01:42→01:52)
[2016-07-05] MEDS: IPRATROPIUM BR 0.02% 0.5 MG/2.5 ML VIAL.NEB. NEB SCH ×4 (06:15→18:12)
[2016-07-05] MEDS: ALBUTEROL SO4 0.083% IH SOL 2.5 MG/3 ML VIAL.NEB. NEB SCH ×4 (06:15→18:12)
[2016-07-05 06:24] LABS: MCH 30.2 pg (25.7-33.7); MCHC 32.7 g/dl (32.0-36.0); MEAN CELL VOLUME 92.2 fl (80-96); MEAN PLT VOLUME 8.4 fl (7.5-11.1); PLATELET COUNT 287 K/MM3 (134-434); RDW 15.9 % (11.6-15.6); WHITE BLOOD COUNT 9.8 K/mm3 (4.0-10.0)
[2016-07-05] MEDS: ASCORBIC ACID 500 MG TABLET (FP) PO SCH (06:47)
[2016-07-05] MEDS: INSULIN SLIDING SCALE (NOVOLOG) 1 VIAL SQ SCH ×4 (06:47→22:49)
[2016-07-05 06:59] LABS: ALBUMIN 1.3 g/dl (3.4-5.0); ALK PHOS 95 U/L (45-117); ANION GAP 10 (8-16); BILIRUBIN,TOTAL 0.3 mg/dL (0.2-1.0); CALCIUM 7.6 mg/dL (8.5-10.1); CO2 23 mmol/L (21-32); COCKROFT - GAULT 74.1455; CREATININE 0.5 mg/dL (0.55-1.02); GLUCOSE,RANDOM 128 mg/dL (74-106); SGOT/AST 20 U/L (15-37); SGPT/ALT 14 U/L (12-78); TOT PROT 5.6 g/dl (6.4-8.2)
--- NOTE | 2016-07-05 08:15 | PN ---
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
--- NOTE | 2016-07-05 08:34 | PN ---
Physical Exam: SUBJECTIVE: Patient seen and examined at bed side in , in no acute distress. afebrile overnight, on 6L 40% Venti mask, saturating 100%. no meds by mouth, will consider NG tube and for feeds. produced 450cc urine/8hrs patient NPO, decreased lavamir to 13units bid. inserted NG tube for nutrition as patient has poor mentation. OBJECTIVE: Vital Signs Period Temp Pulse Resp BP Sys/Chávez Pulse Ox Last 24 Hr 98.2 F-99.5 F 67-96 18-28 96-152/45-98 91-100 GENERAL: The patient is lethargic, arousable, and not oriented, NAD, in no respiratory distress, on venti mask, HEAD: Normal with no signs of trauma. EYES: PERRL, extraocular movements intact, sclera anicteric, conjunctiva clear. No ptosis. ENT: Ears normal, nares patent, oropharynx clear without exudates, moist mucous membranes. NECK: Trachea midline, full range of motion, supple. LUNGS: decreases air intake at bases, scattered rhonchi, no wheezes, no accessory muscle use. HEART: distant heart sounds, tachy rate and regular rhythm, S1, S2 without murmur, rub or gallop. ABDOMEN: Soft, nontender, nondistended, hypoactive bowel sounds, no guarding, no rebound, no hepatosplenomegaly, no masses. Gonzales intact white/yellow urine EXTREMITIES: Bilateral BKA, NEUROLOGICAL: no facial asymmetry, nonverbal, alert, responds to stimuli, gait not observed. PSYCH: Normal mood, normal affect. 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, Laboratory Results - last 24 hr 07/01/16 07/05/16 07/05/16 01:45 05:25 05:25 WBC 9.8 RBC 3.02 L Hgb 9.1 L D Hct 27.8 L MCV 92.2 MCHC 32.7 RDW 15.9 H Plt Count 287 MPV 8.4 PTT (Actin FS) 60.3 H Sodium Potassium Chloride Carbon Dioxide Anion Gap BUN Creatinine Creat Clearance w eGFR Random Glucose Calcium Total Bilirubin AST ALT Alkaline Phosphatase Total Protein Albumin Crossmatch See Detail 07/05/16 05:25 WBC RBC Hgb Hct MCV MCHC RDW Plt Count MPV PTT (Actin FS) Sodium 148 H Potassium 3.7 Chloride 115 H Carbon Dioxide 23 Anion Gap 10 BUN 15 D Creatinine 0.5 L D Creat Clearance w eGFR > 60 Random Glucose 128 H D Calcium 7.6 L Total Bilirubin 0.3 D AST 20 D ALT 14 Alkaline Phosphatase 95 Total Protein 5.6 L Albumin 1.3 L D Crossmatch Active Medications Generic Name Dose Route Start Last Admin Trade Name Freq PRN Reason Stop Dose Admin Acetaminophen 650 mg 06/30/16 09:05 06/30/16 15:05 Tylenol Suppository - AR 650 mg Q6H PRN Administration FEVER OR PAIN Acetaminophen 1,000 mg 06/30/16 23:28 07/02/16 12:30 Ofirmev Injection - IVPB 1,000 mg Q6H PRN Administration Albuterol Sulfate 1 amp 06/30/16 12:00 07/05/16 06:15 Ventolin 0.083% Nebulizer Soln - NEB 1 amp Q6HPO LARRY Administration Amino Acids 30 ml 06/30/16 17:30 07/04/16 19:04 Prosource No Carb Liquid Pkt PO Not Given BID@0800,1730 [facility] Ascorbic Acid 500 mg 06/30/16 14:00 07/05/16 06:47 Vitamin C - PO Not Given TID [facility] Atorvastatin Calcium 10 mg 06/30/16 22:00 07/04/16 22:56 Lipitor - PO Not Given HS LARRY Collagenase 1 applic 07/02/16 10:00 07/04/16 10:49 Santyl - TP 1 applic DAILY LARRY Administration Fentanyl 1 patch 06/30/16 08:30 07/03/16 08:41 Duragesic 12mcg Patch - TD Not Given Q72H [facility] Heparin Sodium (Porcine) 1,000 unit 07/01/16 14:36 Heparin - IVPUSH PRN PRN Heparin Heparin Sodium (Porcine) 5,000 unit 07/01/16 14:36 07/03/16 07:38 Heparin - IVPUSH 5,000 unit PRN PRN Administration Heparin Heparin Sodium (Porcine) 25, 500 mls @ 16 mls/hr 07/01/16 14:45 07/04/16 19:06 000 unit/ Sodium Chloride IV 26 mls/hr TITR LARRY Administration Protocol 800 UNIT/HR Ertapenem 1 gm/ Sodium 50 mls @ 50 mls/hr 07/02/16 17:30 07/04/16 10:49 Chloride IVPB 07/06/16 10:30 50 mls/hr DAILY LARRY Administration Protocol Dextrose 1,000 mls @ 75 mls/hr 07/03/16 21:00 07/05/16 01:52 D5w - IV 75 mls/hr ASDIR LARRY Administration Ibuprofen 400 mg 06/30/16 18:18 07/03/16 05:15 Caldolor Injection - IVPB 400 mg Q6H PRN Administration FEVER Insulin Aspart 1 vial 07/01/16 14:53 07/05/16 06:47 Novolog Vial Sliding Scale - SQ Not Given ACHS [facility] Protocol Insulin Detemir 12 units 07/05/16 07:24 Levemir Vial SQ BIDAC LARRY Ipratropium [place] 1 amp 06/30/16 12:00 07/05/16 06:15 Atrovent 0.02% Nebulizer - NEB 1 amp Q6HPO LARRY Administration Metoprolol Succinate 25 mg 06/30/16 10:00 07/04/16 09:01 Toprol Xl - PO Not Given DAILY [facility] Mirtazapine 30 mg 06/30/16 22:00 07/04/16 22:56 Remeron - PO Not Given HS [facility] Miscellaneous 1 each 06/30/16 09:29 Duragesic Patch Waste TD PRN PRN Olanzapine 5 mg 06/30/16 10:00 07/04/16 22:57 Zyprexa - PO Not Given BID LARRY Pantoprazole Sodium 20 mg 06/30/16 10:00 07/04/16 09:01 Protonix - PO Not Given DAILY [facility] Senna 1 tab 06/30/16 22:00 07/04/16 22:57 Senna - PO Not Given HS [facility] Sodium Bicarbonate 650 mg 06/30/16 10:00 07/04/16 22:57 Sodium Bicarbonate - PO Not Given BID [facility] Tamsulosin HCl 0.4 mg 06/30/16 10:00 07/04/16 08:54 Flomax - PO Not Given DAILY@0830 [facility] Zinc Sulfate 220 mg 06/30/16 10:00 07/04/16 09:01 Orazinc - PO Not Given DAILY LARRY Microbiology 07/02/16 16:00 Blood - Peripheral Venous Blood Culture - Preliminary NO GROWTH OBTAINED AFTER 72 HOURS, INCUBATION TO CONTINUE FOR 2 DAYS. 07/02/16 16:00 Blood - Peripheral Venous Blood Culture - Preliminary NO GROWTH OBTAINED AFTER 72 HOURS, INCUBATION TO CONTINUE FOR 2 DAYS. 07/04/16 10:45 Blood - Peripheral Venous Blood Culture - Preliminary NO GROWTH OBTAINED AFTER 24 HOURS, INCUBATION TO CONTINUE FOR 4 DAYS. 07/04/16 10:45 Blood - Peripheral Venous Blood Culture - Preliminary NO GROWTH OBTAINED AFTER 24 HOURS, INCUBATION TO CONTINUE FOR 4 DAYS. 06/30/16 09:25 Blood - Peripheral Venous Blood Culture - Final NO GROWTH AFTER 5 DAYS INCUBATION 06/30/16 09:25 Blood - Peripheral Venous Blood Culture - Final NO GROWTH AFTER 5 DAYS INCUBATION 07/04/16 16:00 Urine For Antigen Detection Legionella Antigen - Final 07/04/16 16:00 Urine For Antigen Detection Streptococcus pneumoniae Antigen (M - Final 07/01/16 01:45 Back Gram Stain - Final 07/01/16 01:45 Back Wound Culture - Final Yeast Like Organism Enterococcus Faecalis Staphylococcus Aureus Vr Ec Faecium Escherichia Coli Esbl Grizzlyman 07/02/16 19:00 Stool Clostridium difficile Antigen (JAKY) - Final 07/02/16 19:00 Stool Clostridium difficile Toxin Assay - Final 06/30/16 00:49 Urine - Urine Gonzales Urine Culture - Final Escherichia Coli Esbl Grizzlyman ASSESSMENT/PLAN: Pt is a 80yr old woman with PMHx including HTN, HLD, DM dementia, GERD, recurrent MDR UTIs, wounds and bilateral BKA. Now in the ICU for management of septic shock secondary to UTI/sacral wound, GIANNI and hyperglycemia. Pulm:LE dopplers performed due to high A-a gradient, showing bilateral DVTs, likely has pulmonary emboli as well. -start heparin gtt -o2 support for sat >90 -f/u stat abg -f/u repeat chest xray -nebulizers -BiPAP to assist in work of breathing -may need intubation if no improvement with BiPAP ID: Septic Shock possibly possible UTI v osteo (Sacral Decubitus Ulcer Infectionon sacr or LLE ulcer and bone exposed)) , shock could be multifactorial in setting of probable DVT. -f/u cultures back: Yeast Like Organism Enterococcus Faecalis Staphylococcus Aureus vr Ec Faecium Escherichia Coli Esbl Grizzlyman Urine: Escherichia Coli Esbl Grizzlyman -ID following -Meropenem 500 mg/ Dextrose per ID -Stop Vancomycin -Ertepenem for 2 more doses -Isolation precautions -f/u lactic acid -f/u vanco level AM, consider redosing in am. Renal: GIANNI, Cr was 0.7 on 04/20 now >2 Hypernatremia-Serum Na improving slowly continue D5W IV Trend Na Q24hr -Replete electrolytes prn -I/Os -f/u repeat UA -monitor urine output, creatinine Endo:DM - glucose control keep glucose >160 -f/u repeat chemistry pt s/p -d/c isnsulin gtt -levemir and ISS -BGM -f/u A1c Cardiac: hypotension BP resolved-off pressures -f/u enzymes Anemia s/p Transfusion Trend CBC Transfuse as per ICU protocol Neuro Dementia- at base line per PCP -Pain management, pt on 12mcg Fentanyl patch, consider 25mcg as pt appears in significant distress with multiple sources of chronic pain Int: -Wound care Hypophosphatemia: replete IV as needed FEN replet elctrolytes as needed Prophylactic D51/2 NS 75cc/hr NPO -DVT-heparin dripp -PPI- protonix -Bowel regiment in setting of opioid use Dispo: can transfer to tele. Visit type - Emergency Visit Emergency Visit: Yes ED Registration Date: 06/30/16 Care time: The patient presented to the Emergency Department on the above date and was hospitalized for further evaluation of their emergent condition. - New Patient This patient is new to me today: No - Critical Care Critical Care patient: Yes Total Critical Care Time (in minutes): 46 Critical Care Statement: The care of this patient involved high complexity decision making to prevent further life threatening deterioration of the patient 's condition and/or to evalute & treat vital organ system(s) failure or risk of failure.
--- NOTE | 2016-07-05 08:34 | PN ---
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, Physician History of Present Illness: IN ICU OFF PRESSERS - Current Medication List Current Medications: Active Medications Acetaminophen (Tylenol Suppository -) 650 mg GA Q6H PRN PRN Reason: FEVER OR PAIN Last Admin: 06/30/16 15:05 Dose: 650 mg Acetaminophen (Ofirmev Injection -) 1,000 mg IVPB Q6H PRN Last Admin: 07/02/16 12:30 Dose: 1,000 mg Albuterol Sulfate (Ventolin 0.083% Nebulizer Soln -) 1 amp NEB Q6HPO LARRY Last Admin: 07/05/16 06:15 Dose: 1 amp Amino Acids (Prosource No Carb Liquid Pkt) 30 ml PO BID@0800,1730 [facility] Last Admin: 07/04/16 19:04 Dose: Not Given Ascorbic Acid (Vitamin C -) 500 mg PO TID LARRY Last Admin: 07/05/16 06:47 Dose: Not Given Atorvastatin Calcium (Lipitor -) 10 mg PO HS LARRY Last Admin: 07/04/16 22:56 Dose: Not Given Collagenase (Santyl -) 1 applic TP DAILY [facility] Last Admin: 07/04/16 10:49 Dose: 1 applic Fentanyl (Duragesic 12mcg Patch -) 1 patch TD Q72H [facility] Last Admin: 07/03/16 08:41 Dose: Not Given Heparin Sodium (Porcine) (Heparin -) 1,000 unit IVPUSH PRN PRN PRN Reason: Heparin Heparin Sodium (Porcine) (Heparin -) 5,000 unit IVPUSH PRN PRN PRN Reason: Heparin Last Admin: 07/03/16 07:38 Dose: 5,000 unit Heparin Sodium (Porcine) 25, (000 unit/ Sodium Chloride) 500 mls @ 16 mls/hr IV TITR LARRY; 800 UNIT/HR PRN Reason: Protocol Last Admin: 07/04/16 19:06 Dose: 26 mls/hr Ertapenem 1 gm/ Sodium (Chloride) 50 mls @ 50 mls/hr IVPB DAILY LARRY PRN Reason: Protocol Stop: 07/06/16 10:30 Last Admin: 07/04/16 10:49 Dose: 50 mls/hr Dextrose (D5w -) 1,000 mls @ 75 mls/hr IV ASDIR LARRY Last Admin: 07/05/16 01:52 Dose: 75 mls/hr Ibuprofen (Caldolor Injection -) 400 mg IVPB Q6H PRN PRN Reason: FEVER Last Admin: 07/03/16 05:15 Dose: 400 mg Insulin Aspart (Novolog Vial Sliding Scale -) 1 vial SQ ACHS [facility] PRN Reason: Protocol Last Admin: 07/05/16 06:47 Dose: Not Given Insulin Detemir (Levemir Vial) 12 units SQ BIDAC [facility] Ipratropium [place] (Atrovent 0.02% Nebulizer -) 1 amp NEB Q6HPO [facility] Last Admin: 07/05/16 06:15 Dose: 1 amp Metoprolol Succinate (Toprol Xl -) 25 mg PO DAILY [facility] Last Admin: 07/04/16 09:01 Dose: Not Given Mirtazapine (Remeron -) 30 mg PO HS [facility] Last Admin: 07/04/16 22:56 Dose: Not Given Miscellaneous (Duragesic Patch Waste) 1 each TD PRN PRN Olanzapine (Zyprexa -) 5 mg PO BID [facility] Last Admin: 07/04/16 22:57 Dose: Not Given Pantoprazole Sodium (Protonix -) 20 mg PO DAILY [facility] Last Admin: 07/04/16 09:01 Dose: Not Given Senna (Senna -) 1 tab PO HS [facility] Last Admin: 07/04/16 22:57 Dose: Not Given Sodium Bicarbonate (Sodium Bicarbonate -) 650 mg PO BID [facility] Last Admin: 07/04/16 22:57 Dose: Not Given Tamsulosin HCl (Flomax -) 0.4 mg PO DAILY@0830 [facility] Last Admin: 07/04/16 08:54 Dose: Not Given Zinc Sulfate (Orazinc -) 220 mg PO DAILY [facility] Last Admin: 07/04/16 09:01 Dose: Not Given - Objective Vital Signs: Vital Signs Temperature 98.4 F 07/05/16 06:00 Pulse Rate 94 H 07/05/16 06:00 Respiratory Rate 20 07/05/16 06:00 Blood Pressure 112/89 07/05/16 06:00 O2 Sat by Pulse Oximetry (%) 97 07/04/16 22:00 Cardiovascular: Yes: S1, S2 Respiratory: Yes: Diminished, On Venti-Mask Gastrointestinal: Yes: Normal Bowel Sounds, Soft Extremities: Yes: Amputation Neurological: Yes: Other (RESPONDS TO PAIN) Labs: CBC, BMP 07/05/16 05:25 07/05/16 05:25 INR, PTT INR 1.08 (0.82-1.09) 07/01/16 01:45 Problem List - Problems (1) Septic shock Assessment/Plan: PROBABLY URINARY SOURCE IVF IV ABX PER ID Stop Vancomycin Ertepenem for 2 more doses Microbiology 07/02/16 16:00 Blood - Peripheral Venous Blood Culture - Preliminary NO GROWTH OBTAINED AFTER 48 HOURS, INCUBATION TO CONTINUE FOR 3 DAYS. 07/02/16 16:00 Blood - Peripheral Venous Blood Culture - Preliminary NO GROWTH OBTAINED AFTER 48 HOURS, INCUBATION TO CONTINUE FOR 3 DAYS. 07/01/16 01:45 Back Gram Stain - Final 07/01/16 01:45 Back Wound Culture - Final Yeast Like Organism Enterococcus Faecalis Staphylococcus Aureus Vr Ec Faecium Escherichia Coli Esbl [employer] 06/30/16 09:25 Blood - Peripheral Venous Blood Culture - Preliminary NO GROWTH OBTAINED AFTER 96 HOURS, INCUBATION TO CONTINUE FOR 1 DAYS. 06/30/16 09:25 Blood - Peripheral Venous Blood Culture - Preliminary NO GROWTH OBTAINED AFTER 96 HOURS, INCUBATION TO CONTINUE FOR 1 DAYS. 07/02/16 19:00 Stool Clostridium difficile Antigen (JAKY) - Final 07/02/16 19:00 Stool Clostridium difficile Toxin Assay - Final 06/30/16 00:49 Urine - Urine Gonzales Urine Culture - Final Escherichia Coli Esbl [employer] Consult[employer] Code(s): A41.9 - SEPSIS, UNSPECIFIED ORGANISM R65.21 - SEVERE SEPSIS WITH SEPTIC SHOCK (2) UTI (urinary tract infection) Assessment/Plan: ABX CULTURES ID ON BOARD Code(s): N39.0 - URINARY TRACT INFECTION, SITE NOT SPECIFIED Qualifiers: Urinary tract infection type: acute cystitis Hematuria presence: without hematuria Qualified Code(s): N30.00 - Acute cystitis without hematuria (3) Fever Code(s): R50.9 - FEVER, UNSPECIFIED (4) Pneumonia Code(s): J18.9 - PNEUMONIA, UNSPECIFIED ORGANISM Qualifiers: Pneumonia type: due to unspecified organism Laterality: left Lung location: lower lobe of lung Qualified Code(s): J18.1 - Lobar pneumonia, unspecified organism (5) CKD (chronic kidney disease) Assessment/Plan: MONITOR IMPROVING Laboratory Tests 07/01/16 07/05/16 01:45 05:25 Creatinine 2.2 H 0.5 L D Code(s): N18.9 - CHRONIC KIDNEY DISEASE, UNSPECIFIED (6) S/P bilateral below knee amputation Assessment/Plan: MONITOR Code(s): Z89.512 - ACQUIRED ABSENCE OF LEFT LEG BELOW KNEE Z89.511 - ACQUIRED ABSENCE OF RIGHT LEG BELOW KNEE (7) Decubitus ulcer Assessment/Plan: wound care on abx Code(s): L89.90 - PRESSURE ULCER OF UNSPECIFIED SITE, UNSPECIFIED STAGE (8) Anemia Assessment/Plan: REPEAT S/P TRANSFUSION Code(s): D64.9 - ANEMIA, UNSPECIFIED Qualifiers: Anemia type: iron deficiency (9) Diabetes Assessment/Plan: MONITOR B/S ENDO CONSULT SS/LEVEMIR Code(s): E11.9 - TYPE 2 DIABETES MELLITUS WITHOUT COMPLICATIONS Qualifiers: Diabetes mellitus type: type 2 (10) DVT, bilateral lower limbs Assessment/Plan: ON HEPARIN DRIP Code(s): I82.403 - ACUTE EMBOLISM AND THOMBOS UNSP DEEP VEINS OF LOW EXTRM, BI
[2016-07-05] MEDS ORDERED: PT OWN MED DRAWER 7, Y5N ONE ×3 (08:59→22:38)
[2016-07-05] MEDS: TAMSULOSIN HCL 0.4 MG CAP.ER.24H (FP) PO SCH (09:00)
[2016-07-05] MEDS: AMINO ACIDS/PROTEIN HYDROLYS 30 ML LIQUID.PKT PO SCH (09:01)
[2016-07-05] MEDS: ZINC SULFATE 220 MG CAPSULE (FP) PO SCH (09:01)
[2016-07-05] MEDS: PANTOPRAZOLE 20 MG TABLET (FP) PO SCH (09:01)
[2016-07-05] MEDS: SODIUM BICARBONATE 650 MG TABLET PO SCH ×2 (09:02→22:38)
[2016-07-05] MEDS: OLANZapine 5 MG TABLET PO SCH ×2 (09:02→22:39)
[2016-07-05] MEDS: METOPROLOL SUCCINATE 25 MG TAB.SR.24H (FP) PO SCH (09:02)
--- NOTE | 2016-07-05 09:51 | PN ---
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 (short form) - Note 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: Renal Follow up for Hypernatremia Pt seen and examined at the bedside no overnight events on Venti Mask on D5W on Heparin gtt very lethargic, not responsive to questions or commands Vital Signs Temperature 98.6 F 07/05/16 08:00 Pulse Rate 100 H 07/05/16 08:00 Respiratory Rate 18 07/05/16 08:00 Blood Pressure 94/40 07/05/16 08:00 O2 Sat by Pulse Oximetry (%) 97 07/04/16 22:00 Intake & Output 07/02/16 07/03/16 07/04/16 07/05/16 23:59 23:59 23:59 23:59 Intake Total 2940.4 3300 2486 1212 Output Total 150 1400 675 450 Balance 2790.4 1900 1811 762 Weight 108 lb 6.4 oz 114 lb 114 lb 4 oz 113 lb 8 oz Gen: Lethagic on BIPAP HEENT: NC/AT, BIPAP, No JVD CVS: RRR, No M/R Lungs: Dec BS, no rales Abd: soft NT/ND Ext: s/p B/L BKA, trace sacral edema : conley in place with yellow urine CBC, BMP 07/05/16 05:25 07/05/16 05:25 Laboratory Tests 07/05/16 07/05/16 05:25 05:25 MCV 92.2 Calcium 7.6 L Phosphorus Pending Magnesium Pending Albumin 1.3 L D Current Medications Acetaminophen (Tylenol Suppository -) [address] Q6H PRN PRN Reason: FEVER OR PAIN Last Admin: 06/30/16 15:05 Dose: 650 mg Acetaminophen (Ofirmev Injection -) 1,000 mg IVPB Q6H PRN Last Admin: 07/02/16 12:30 Dose: 1,000 mg Albuterol Sulfate (Ventolin 0.083% Nebulizer Soln -) 1 amp NEB Q6HPO [facility] Last Admin: 07/05/16 06:15 Dose: 1 amp Amino Acids (Prosource No Carb Liquid Pkt) 30 ml PO BID@0800,1730 [facility] Last Admin: 07/05/16 09:01 Dose: Not Given Ascorbic Acid (Vitamin C -) 500 mg PO TID [facility] Last Admin: 07/05/16 06:47 Dose: Not Given Atorvastatin Calcium (Lipitor -) 10 mg PO HS LARRY Last Admin: 07/04/16 22:56 Dose: Not Given Collagenase (Santyl -) 1 applic TP DAILY LARRY Last Admin: 07/04/16 10:49 Dose: 1 applic Heparin Sodium (Porcine) (Heparin -) 1,000 unit IVPUSH PRN PRN PRN Reason: Heparin Heparin Sodium (Porcine) (Heparin -) 5,000 unit IVPUSH PRN PRN PRN Reason: Heparin Last Admin: 07/03/16 07:38 Dose: 5,000 unit Heparin Sodium (Porcine) 25, (000 unit/ Sodium Chloride) 500 mls @ 16 mls/hr IV TITR LARRY; 800 UNIT/HR PRN Reason: Protocol Last Admin: 07/04/16 19:06 Dose: 26 mls/hr Ertapenem 1 gm/ Sodium (Chloride) 50 mls @ 50 mls/hr IVPB DAILY LARRY PRN Reason: Protocol Stop: 07/06/16 10:30 Last Admin: 07/04/16 10:49 Dose: 50 mls/hr Dextrose (D5w -) 1,000 mls @ 75 mls/hr IV ASDIR LARRY Last Admin: 07/05/16 01:52 Dose: 75 mls/hr Ibuprofen (Caldolor Injection -) 400 mg IVPB Q6H PRN PRN Reason: FEVER Last Admin: 07/03/16 05:15 Dose: 400 mg Insulin Aspart (Novolog Vial Sliding Scale -) 1 vial SQ ACHS LARRY PRN Reason: Protocol Last Admin: 07/05/16 06:47 Dose: Not Given Insulin Detemir (Levemir Vial) 12 units SQ BIDAC LARRY Ipratropium [place] (Atrovent 0.02% Nebulizer -) 1 amp NEB Q6HPO LARRY Last Admin: 07/05/16 06:15 Dose: 1 amp Metoprolol Succinate (Toprol Xl -) 25 mg PO DAILY [facility] Last Admin: 07/05/16 09:02 Dose: Not Given Mirtazapine (Remeron -) 30 mg PO HS LARRY Last Admin: 07/04/16 22:56 Dose: Not Given Miscellaneous (Duragesic Patch Waste) 1 each TD PRN PRN Olanzapine (Zyprexa -) 5 mg PO BID [facility] Last Admin: 07/05/16 09:02 Dose: Not Given Pantoprazole Sodium (Protonix -) 20 mg PO DAILY [facility] Last Admin: 07/05/16 09:01 Dose: Not Given Senna (Senna -) 1 tab PO HS [facility] Last Admin: 07/04/16 22:57 Dose: Not Given Sodium Bicarbonate (Sodium Bicarbonate -) 650 mg PO BID [facility] Last Admin: 07/05/16 09:02 Dose: Not Given Tamsulosin HCl (Flomax -) 0.4 mg PO DAILY@0830 [facility] Last Admin: 07/05/16 09:00 Dose: Not Given Zinc Sulfate (Orazinc -) 220 mg PO DAILY [facility] Last Admin: 07/05/16 09:01 Dose: Not Given A/P 80 year old woman with PMhx of Multiple GIANNI's, Hypernatremia, Hypertension, DM, HLD, GERD who [place] with hypoxia and found to have Septic shock from UTI/Infected Sacral Decubitis Ulcers with GIANNI with Cr of 2.2 and worsening hypernatremia. #Hypernatremia Serum Na improving slowly continue D5W IV Trend Na Q24hr #Septic Shock/UTI/Infected Sacral Decubitis Ulcers Continue Care as per ICU team Pt off pressers Continue supplemental O2 #Hypoxic Respiratory Failure on Venti mask titrate as per ICU #Anemia Requring Transfusion Trend CBC Transfuse as per ICU protocol #Hypophosphatemia Todays phos levels pending supplement via IV as needed Thank you Vahid Manzano DO
[2016-07-05] MEDS: COLLAGENASE CLOSTRIDIUM HIST. 30 GRAMS TUBE TP SCH (10:00)
--- NOTE | 2016-07-05 10:10 | CONSULT ---
Admitting History and Physical - Primary Care Physician PCP: Rashawn Garcia - Admission History of Present Illness: Per EMR: "80 year old woman with PMhx of Multiple GIANNI's, Hypernatremia, Hypertension, DM , HLD, GERD who presented from [place] with hypoxia and found to have Septic shock from UTI/Infected Sacral Decubitis Ulcers with GIANNI with Cr of 2.2 and worsening hypernatremia. " Was on BIPAP last week. Now on VM. On purre/nectar at [place]. NPO. Per ID 07/04- "UTI/ Sepsis secomdary to UTI Possible new RLL pneumonia Decubitus ulcer LE DVT Azotemia- improved" MBS 03/2016 (-) Sp path note 04/08/16- "Accepted pureed diet fairly well today, but limited PO intake today. Only soup. Pt c/o leg pain. Case reviewed with PMD. Pt is a full code. Determine pt's wishes regarding TF,code status, etc REC: Dys puree, magic cup tid. PEG vs comfort care?" History Source: Medical Record Limitations to Obtaining History: Clinical Condition, Dementia (Opens eyes, non communicative) - Past Medical History [employer]: Yes: CVA, Dementia Cardiovascular: Yes: CHF, HTN, Hyperlipdemia Pulmonary: Yes: COPD Gastrointestinal: Yes: GERD Renal/: Yes: Renal Inusuff Heme/Onc: Yes: Anemia Endocrine: Yes: Diabetes Mellitus - Smoking History Smoking history: Never smoked Have you smoked in the past 12 months: No Aproximately how many cigarettes per day: 0 - Alcohol/Substance Use Hx Alcohol Use: No - Social History History of Recent Travel: No History - Admission Reason For Visit: PNEUMONIA, UTI - Diagnostics X-ray: Report Reviewed - General Mental Status: Confused, Lethargic (opens eyes) Attention: Distractible Ability to Follow Directions: Poor Head/Neck Control: Needs Assist - Hearing Hearing: Normal Speech Evaluation - Communication Primary Language: SENEGALESE Communication: Yes: Non-Communicable Oral Expression Ability: Yes: Non-Verbal (low volume, unintelligible.) - Speech Production Apraxia: Yes Able to Make Needs Known: Yes: Severely Impaired Intelligibility: Yes: Severely Impaired - Speech Characteristics Voice Loudness: Severely Soft/Quiet Speech Pattern: Impaired Speech Clarity: < 25% Nasal Resonance: Normal - Language/Auditory Comprehension Observation: Comprehends Conversational Speech: Yes - Language/Verbal Expression Able to Respond to Simple Queries: Yes: Severely Impaired Able to Communicate Wants and Needs: Yes: Severely Impaired Functional Communication Status: Yes: Severely Impaired - Swallow Evaluation/Bedside Assessment Current Nutritional Intake: NPO Oral Secretions: Yes: WFL Dentition: Yes: Missing Teeth Facial Symmetry at Rest: Symmetrical Bite Reflex: Present (inteermitterntly, chewing on straw) Laryngeal Movement: Able to Palpate Rate of Intake: Slow/Holding (accepts tiny amount from tip of spoon. Hardly opens mouth.) A-P Transit: WFL Timing of Swallow: Delayed (slight) Coughing/Throat Clear: No (But eye opening and increased RR with thin liquids) Change in Voice: No Recommendations - Speech Evaluation, Impression/Plan Impression: Accepts tiny amount from tip of spoon. Hardly opens mouth.Eye opening and increased RR with thin liquids -Silent aspiration/risk of aspiration suspected on thin liquid. Fairly brisk swallow with puree/thick liquid. Non communicative. Pt is a full code. - Dysphagia Impressions/Plan Dysphagia Impressions: Mild Impairment, Risk of Aspiration *Silent aspiration: cannot be R/O at bedside Dysphagia Treatment Plan: Small Bites, Chin Tuck/Down, Elevate HOB during feed, Other (May accept food/liquid better from cup. Mix puree with ensure or soup. Single sips possibly from medicine cup to control bolus size.) Recommendations: Palliative Care (Pt's wishes?) - Recommendations Diet Consistency: Dysphagia Pureed, Other (May accept food/liquid better from cup. Mix puree with ensure or soup. Single sips possibly from medicine cup to control bolus size.) Medication Administration: Crushed with applesauce (mix with liquid to drink.) Liquids: [place] Thick Supplement: Other (Ensure compact)
--- NOTE | 2016-07-05 11:57 | PN ---
Teaching Attending Note Name of Resident: Lorenzo Vang ATTENDING PHYSICIAN STATEMENT I saw and evaluated the patient. I reviewed the resident's note and discussed the case with the resident. I agree with the resident's findings and plan as documented. SUBJECTIVE: Pt seen and examined in the ICU. Remains lethargic but arousable to noxious stimuli. On ventimask 40% FiO2. No fevers recorded. OBJECTIVE: Last Vital Signs Temp Pulse Resp BP Pulse Ox 98.6 F 95 H 18 94/40 100 07/05/16 08:00 07/05/16 09:57 07/05/16 08:00 07/05/16 08:00 07/05/16 09:57 Intake & Output 07/02/16 07/03/16 07/04/16 07/05/16 23:59 23:59 23:59 23:59 Intake Total 2940.4 3300 2486 1212 Output Total 150 1400 675 450 Balance 2790.4 1900 1811 762 Weight 108 lb 6.4 oz 114 lb 114 lb 4 oz 113 lb 8 oz Gen: mildly tachypneic at rest, lethargic but arousable Heart: RRR Lung: scattered rhonchi Abd: soft, nontender Ext: bilateral BKA CBC, BMP 07/05/16 05:25 07/05/16 05:25 Active Medications Acetaminophen (Tylenol Suppository -) 650 mg FL Q6H PRN PRN Reason: FEVER OR PAIN Last Admin: 06/30/16 15:05 Dose: 650 mg Acetaminophen (Ofirmev Injection -) 1,000 mg IVPB Q6H PRN Last Admin: 07/02/16 12:30 Dose: 1,000 mg Albuterol Sulfate (Ventolin 0.083% Nebulizer Soln -) 1 amp NEB Q6HPO LARRY Last Admin: 07/05/16 11:08 Dose: 1 amp Amino Acids (Prosource No Carb Liquid Pkt) 30 ml PO BID@0800,1730 [facility] Last Admin: 07/05/16 09:01 Dose: Not Given Ascorbic Acid (Vitamin C -) 500 mg PO TID [facility] Last Admin: 07/05/16 06:47 Dose: Not Given Atorvastatin Calcium (Lipitor -) 10 mg PO HS [facility] Last Admin: 07/04/16 22:56 Dose: Not Given Collagenase (Santyl -) 1 applic TP DAILY [facility] Last Admin: 07/04/16 10:49 Dose: 1 applic Heparin Sodium (Porcine) (Heparin -) 1,000 unit IVPUSH PRN PRN PRN Reason: Heparin Heparin Sodium (Porcine) (Heparin -) 5,000 unit IVPUSH PRN PRN PRN Reason: Heparin Last Admin: 07/03/16 07:38 Dose: 5,000 unit Heparin Sodium (Porcine) 25, (000 unit/ Sodium Chloride) 500 mls @ 16 mls/hr IV TITR LARRY; 800 UNIT/HR PRN Reason: Protocol Last Admin: 07/04/16 19:06 Dose: 26 mls/hr Ertapenem 1 gm/ Sodium (Chloride) 50 mls @ 50 mls/hr IVPB DAILY LARRY PRN Reason: Protocol Stop: 07/06/16 10:30 Last Admin: 07/04/16 10:49 Dose: 50 mls/hr Dextrose (D5w -) 1,000 mls @ 75 mls/hr IV ASDIR [facility] Last Admin: 07/05/16 01:52 Dose: 75 mls/hr Ibuprofen (Caldolor Injection -) 400 mg IVPB Q6H PRN PRN Reason: FEVER Last Admin: 07/03/16 05:15 Dose: 400 mg Insulin Aspart (Novolog Vial Sliding Scale -) 1 vial SQ ACHS LARRY PRN Reason: Protocol Last Admin: 07/05/16 06:47 Dose: Not Given Insulin Detemir (Levemir Vial) 12 units SQ BIDAC LARRY Ipratropium [place] (Atrovent 0.02% Nebulizer -) 1 amp NEB Q6HPO [facility] Last Admin: 07/05/16 11:07 Dose: 1 amp Metoprolol Succinate (Toprol Xl -) 25 mg PO DAILY [facility] Last Admin: 07/05/16 09:02 Dose: Not Given Mirtazapine (Remeron -) 30 mg PO HS [facility] Last Admin: 07/04/16 22:56 Dose: Not Given Miscellaneous (Duragesic Patch Waste) 1 each TD PRN PRN Olanzapine (Zyprexa -) 5 mg PO BID [facility] Last Admin: 07/05/16 09:02 Dose: Not Given Pantoprazole Sodium (Protonix -) 20 mg PO DAILY [facility] Last Admin: 07/05/16 09:01 Dose: Not Given Senna (Senna -) 1 tab PO HS [facility] Last Admin: 07/04/16 22:57 Dose: Not Given Sodium Bicarbonate (Sodium Bicarbonate -) 650 mg PO BID [facility] Last Admin: 07/05/16 09:02 Dose: Not Given Tamsulosin HCl (Flomax -) 0.4 mg PO DAILY@0830 [facility] Last Admin: 07/05/16 09:00 Dose: Not Given Zinc Sulfate (Orazinc -) 220 mg PO DAILY [facility] Last Admin: 07/05/16 09:01 Dose: Not Given ASSESSMENT AND PLAN: Acute Hypoxic Respiratory Failure UTI Sacral Decubitus Ulcer Infection Septic Shock resolving Lactic Acidosis improved Acute Kidney Injury resolving Bilateral DVTs HTN DM Dementia - continue antibiotics - continue free water replacement - monitor urine output, creatinine - glucose control - BiPAP to assist in work of breathing - titrate FiO2 to keep SpO2 >90% - aspiration precautions - DVT/GI prophylaxis - ICU monitoring critical care time spent in reviewing chart, evaluating patient and formulating plan 36 min
[2016-07-05 12:35] LABS: PHOSPHOROUS 3.5 mg/dL (2.5-4.9)
[2016-07-05] MEDS: INSULIN DETEMIR 100 UNITS/ML MDV SQ SCH ×2 (12:37→18:43)
[2016-07-05] MEDS: ERTAPENEM SODIUM 1 GM in SODIUM CHLORIDE 50 ML IVPB SCH (14:54)
[2016-07-05] MEDS: HEPARIN - 25,000 UNIT in SODIUM CHLORIDE 495 ML IV SCH (14:59)
[2016-07-05] MEDS: AMINO ACIDS/PROTEIN HYDROLYS 30 ML LIQUID.PKT NGT SCH (18:42)
[2016-07-05] MEDS ORDERED: DEXTROSE 5%-WATER - 1,000 ML IV SCH (20:01)
[2016-07-05] MEDS ORDERED: HEPARIN - 25,000 UNIT in SODIUM CHLORIDE 495 ML IV SCH (20:21)
[2016-07-05] MEDS ORDERED: ACETAMINOPHEN 1000 MG/100 ML VIAL (NON FORMULARY) IVPB PRN (20:21)
[2016-07-05] MEDS ORDERED: IBUPROFEN 800 MG/8 ML IJ IVPB PRN (20:21)
[2016-07-05] MEDS ORDERED: HEPARIN NA (PORCINE) 5,000 UNITS/ML 1ML VIAL IVPUSH PRN ×4 (20:21)
[2016-07-05] MEDS: MIRTAZAPINE 30 MG TABLET (FP) PO SCH (22:11)
[2016-07-05] MEDS: SENNOSIDES 8.6MG TABLET (FP) PO SCH (22:38)
[2016-07-05] MEDS: ATORVASTATIN CA 10 MG TABLET (FP) NGT SCH (22:38)
[2016-07-05] MEDS: ASCORBIC ACID 500 MG/5 ML UNIT DOSE CUP NGT SCH (23:10)
[2016-07-06] MEDS: IPRATROPIUM BR 0.02% 0.5 MG/2.5 ML VIAL.NEB. NEB SCH ×4 (00:05→19:49)
[2016-07-06] MEDS: ALBUTEROL SO4 0.083% IH SOL 2.5 MG/3 ML VIAL.NEB. NEB SCH ×4 (00:05→19:49)
[2016-07-06] MEDS: ASCORBIC ACID 500 MG/5 ML UNIT DOSE CUP NGT SCH ×3 (06:39→22:24)
[2016-07-06] MEDS: INSULIN SLIDING SCALE (NOVOLOG) 1 VIAL SQ SCH ×4 (06:39→22:23)
[2016-07-06] MEDS: INSULIN DETEMIR 100 UNITS/ML MDV SQ SCH ×2 (06:41→19:37)
[2016-07-06 06:42] LABS: MCHC 32.4 g/dl (32.0-36.0); MEAN CELL VOLUME 92.5 fl (80-96); MEAN PLT VOLUME 8.4 fl (7.5-11.1); PLATELET COUNT 274 K/MM3 (134-434); RDW 15.4 % (11.6-15.6); WHITE BLOOD COUNT 7.2 K/mm3 (4.0-10.0)
[2016-07-06 07:03] LABS: ALBUMIN 1.4 g/dl (3.4-5.0); ANION GAP 7 (8-16); BILIRUBIN,TOTAL 0.2 mg/dL (0.2-1.0); CALCIUM 7.8 mg/dL (8.5-10.1); CO2 26 mmol/L (21-32); CREATININE 0.4 mg/dL (0.55-1.02); GLUCOSE,RANDOM 142 mg/dL (74-106); MAGNESIUM 1.8 mg/dL (1.8-2.4); SGOT/AST 18 U/L (15-37); SGPT/ALT 15 U/L (12-78)
[2016-07-06 07:04] LABS: ALK PHOS 89 U/L (45-117); TOT PROT 5.7 g/dl (6.4-8.2)
--- NOTE | 2016-07-06 07:50 | PN ---
Physical Exam: SUBJECTIVE:Patient seen and examined at bed side in , in no acute distress. afebrile now, was febrile overnight, on 6L 40% Venti mask, saturating 100%. discussed with surgery and possible debridement of sacral sound. patient is medicably optimized for a low risk procedure. started on tube feeds yesterday but had emesis last night, currenty tube feeds resumed, more alert today, less confusion, less lethargy, back to her base line mental status. will d/c NG tube and try oral feeds. on D5W cxr: right side infiltrate switched to lovenox one dose of Lasix. OBJECTIVE: Vital Signs Period Temp Pulse Resp BP Sys/Chávez Pulse Ox Last 24 Hr 98.6 F-100.5 F 80-114 16-34 94-157/37-79 98-100 GENERAL: The patient is less lethargic, arousable, wake, and not oriented, NAD , in no respiratory distress, on venti mask, HEAD: Normal with no signs of trauma. EYES: PERRL, extraocular movements intact, sclera anicteric, conjunctiva clear. No ptosis. ENT: Ears normal, nares patent, oropharynx clear without exudates, moist mucous membranes. NECK: Trachea midline, full range of motion, supple. LUNGS: decreases air intake at bases, scattered rhonchi, no wheezes, no accessory muscle use. HEART: distant heart sounds, tachy rate and regular rhythm, S1, S2 without murmur, rub or gallop. ABDOMEN: Soft, nontender, nondistended, hypoactive bowel sounds, no guarding, no rebound, no hepatosplenomegaly, no masses. [place] intact white/yellow urine EXTREMITIES: Bilateral BKA, NEUROLOGICAL: no facial asymmetry, nonverbal, alert, responds to stimuli, gait not observed. PSYCH: Normal mood, normal affect. 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, Laboratory Results - last 24 hr 07/02/16 07/02/16 07/03/16 13:28 13:36 06:53 WBC RBC Hgb Hct MCV MCHC RDW Plt Count MPV PTT (Actin FS) Sodium Potassium Chloride Carbon Dioxide Anion Gap BUN Creatinine Creat Clearance w eGFR POC Glucometer 140.09853 140.00742 112.44945 Random Glucose Calcium Phosphorus Magnesium Total Bilirubin AST ALT Alkaline Phosphatase Total Protein Albumin Stool Occult Blood 07/03/16 07/04/16 07/04/16 21:25 05:38 12:42 WBC RBC Hgb Hct MCV MCHC RDW Plt Count MPV PTT (Actin FS) Sodium Potassium Chloride Carbon Dioxide Anion Gap BUN Creatinine Creat Clearance w eGFR POC Glucometer 186.47621 332.91876 185.77334 Random Glucose Calcium Phosphorus Magnesium Total Bilirubin AST ALT Alkaline Phosphatase Total Protein Albumin Stool Occult Blood 07/04/16 07/04/16 07/05/16 17:21 21:18 05:25 WBC RBC Hgb Hct MCV MCHC RDW Plt Count MPV PTT (Actin FS) Sodium Potassium Chloride Carbon Dioxide Anion Gap BUN Creatinine Creat Clearance w eGFR POC Glucometer 121.45384 113.89867 Random Glucose Calcium Phosphorus 3.5 D Magnesium 2.0 Total Bilirubin AST ALT Alkaline Phosphatase Total Protein Albumin Stool Occult Blood 07/05/16 07/05/16 07/05/16 05:25 06:05 11:50 WBC RBC Hgb Hct MCV MCHC RDW Plt Count MPV PTT (Actin FS) Sodium Potassium Chloride Carbon Dioxide Anion Gap BUN Creatinine Creat Clearance w eGFR POC Glucometer 149.48494 [phone] Random Glucose Calcium Phosphorus Cancelled Magnesium Cancelled Total Bilirubin AST ALT Alkaline Phosphatase Total Protein Albumin Stool Occult Blood 07/05/16 07/05/16 07/06/16 18:17 22:47 00:05 WBC RBC Hgb Hct MCV MCHC RDW Plt Count MPV PTT (Actin FS) Sodium Potassium Chloride Carbon Dioxide Anion Gap BUN Creatinine Creat Clearance w eGFR POC Glucometer 112.97062 226.41446 Random Glucose Calcium Phosphorus Magnesium Total Bilirubin AST ALT Alkaline Phosphatase Total Protein Albumin Stool Occult Blood Negative 07/06/16 07/06/16 07/06/16 05:20 05:20 05:20 WBC 7.2 RBC 3.01 L Hgb 9.0 L Hct 27.9 L MCV 92.5 MCHC 32.4 RDW 15.4 Plt Count 274 MPV 8.4 PTT (Actin FS) 60.6 H Sodium 147 H Potassium 3.4 L Chloride 114 H Carbon Dioxide 26 Anion Gap 7 L BUN 10 D Creatinine 0.4 L Creat Clearance w eGFR > 60 POC Glucometer Random Glucose 142 H Calcium 7.8 L Phosphorus Magnesium 1.8 Total Bilirubin 0.2 D AST 18 ALT 15 Alkaline Phosphatase 89 Total Protein 5.7 L Albumin 1.4 L Stool Occult Blood 07/06/16 05:20 WBC RBC Hgb Hct MCV MCHC RDW Plt Count MPV PTT (Actin FS) Sodium Potassium Chloride Carbon Dioxide Anion Gap BUN Creatinine Creat Clearance w eGFR POC Glucometer Random Glucose Calcium Phosphorus 2.2 L D Magnesium Total Bilirubin AST ALT Alkaline Phosphatase Total Protein Albumin Stool Occult Blood Active Medications Generic Name Dose Route Start Last Admin Trade Name Freq PRN Reason Stop Dose Admin Acetaminophen 1,000 mg 07/05/16 20:21 Ofirmev Injection - IVPB Q6H PRN Acetaminophen 650 mg 07/05/16 20:21 Tylenol Suppository - CT Q6H PRN FEVER OR PAIN Albuterol Sulfate 1 amp 07/06/16 00:00 07/06/16 06:23 Ventolin 0.083% Nebulizer Soln - NEB 1 amp QIDR LARRY Administration Amino Acids 30 ml 07/05/16 17:30 07/05/16 18:42 Prosource No Carb Liquid Pkt NGT 30 ml BID@0800,1730 LARRY Administration Ascorbic Acid 500 mg 07/05/16 22:00 07/06/16 06:39 Vitamin C Oral Solution - NGT 500 mg TID LARRY Administration Atorvastatin Calcium 10 mg 07/05/16 22:00 07/05/16 22:38 Lipitor - NGT 10 mg HS LARRY Administration Collagenase 1 applic 07/06/16 10:00 Santyl - TP DAILY LARRY Heparin Sodium (Porcine) 1,000 unit 07/05/16 20:21 Heparin - IVPUSH PRN PRN Heparin Heparin Sodium (Porcine) 5,000 unit 07/05/16 20:21 Heparin - IVPUSH PRN PRN Heparin Heparin Sodium (Porcine) 1,000 unit 07/05/16 20:21 Heparin - IVPUSH PRN PRN Heparin Heparin Sodium (Porcine) 5,000 unit 07/05/16 20:21 Heparin - IVPUSH PRN PRN Heparin Dextrose 1,000 mls @ 42 mls/hr 07/05/16 20:01 07/05/16 22:16 D5w - IV 42 mls/hr ASDIR LARRY Administration Ertapenem 1 gm/ Sodium 50 mls @ 50 mls/hr 07/06/16 10:00 Chloride IVPB 07/06/16 10:30 DAILY LARRY Protocol Heparin Sodium (Porcine) 25, 500 mls @ 16 mls/hr 07/05/16 20:21 07/05/16 22:18 000 unit/ Sodium Chloride IV 26 mls/hr TITR LARRY Administration Protocol 800 UNIT/HR Ibuprofen 400 mg 07/05/16 20:21 Caldolor Injection - IVPB Q6H PRN FEVER Insulin Aspart 1 vial 07/05/16 22:00 07/06/16 06:39 Novolog Vial Sliding Scale - SQ Not Given ACHS [facility] Protocol Insulin Detemir 12 units 07/06/16 07:00 07/06/16 06:41 Levemir Vial SQ 12 units BIDAC LARRY Administration Ipratropium [place] 1 amp 07/06/16 00:00 07/06/16 06:23 Atrovent 0.02% Nebulizer - NEB 1 amp Q6HPO LARRY Administration Metoprolol Succinate 25 mg 07/06/16 10:00 Toprol Xl - PO DAILY LARRY Mirtazapine 30 mg 07/05/16 22:00 07/05/16 22:11 Remeron - PO Not Given HS LARRY Olanzapine 5 mg 07/05/16 22:00 07/05/16 22:39 Zyprexa - PO 5 mg BID LARRY Administration Pantoprazole Sodium 20 mg 07/06/16 10:00 Protonix - PO DAILY LARRY Senna 1 tab 07/05/16 22:00 07/05/16 22:38 Senna - PO 1 tab HS LARRY Administration Sodium Bicarbonate 650 mg 07/05/16 22:00 07/05/16 22:38 Sodium Bicarbonate - PO 650 mg BID LARRY Administration Tamsulosin HCl 0.4 mg 07/06/16 08:30 Flomax - PO DAILY@0830 LARRY Zinc Sulfate 220 mg 07/05/16 14:59 Orazinc - NGT DAILY [facility] . cxr: right side infiltrate ASSESSMENT/PLAN: Pt is a 80yr old woman with PMHx including HTN, HLD, DM dementia, GERD, recurrent MDR UTIs, wounds and bilateral BKA. Now in the ICU for management of septic shock secondary to UTI/sacral wound, GIANNI and hyperglycemia. Pulm:LE dopplers performed due to high A-a gradient, showing bilateral DVTs, likely has pulmonary emboli as well. -start heparin gtt -o2 support for sat >90 -f/u stat abg -f/u repeat chest xray -nebulizers -BiPAP to assist in work of breathing -may need intubation if no improvement with BiPAP ID: Septic Shock possibly possible UTI v osteo (Sacral Decubitus Ulcer Infectionon sacr or LLE ulcer and bone exposed)) , shock could be multifactorial in setting of probable DVT. -f/u cultures back: Yeast Like Organism Enterococcus Faecalis Staphylococcus Aureus vr Ec Faecium Escherichia Coli Esbl Hoe Runner Urine: Escherichia Coli Esbl Hoe Runner -ID following -Meropenem 500 mg/ Dextrose per ID -Stop Vancomycin -Ertepenem for 2 more doses -Isolation precautions -f/u vanco level AM, consider redosing in am. Patient with infected sacral ulcer -discussed with surgery and possible debridement of sacral sound. patient is medicably optimized for a low risk procedure -Plan for OR debridement 07/08 Renal: GIANNI, Cr was 0.7 on 04/20 now >2 Hypernatremia-Serum Na improving slowly continue D5W IV Trend Na Q24hr -Replete electrolytes prn -I/Os -f/u repeat UA -monitor urine output, creatinine Endo:DM - glucose control keep glucose >160 -f/u repeat chemistry pt s/p -d/c isnsulin gtt -levemir and ISS -BGM -f/u A1c Cardiac: hypotension BP resolved-off pressures -f/u enzymes Anemia s/p Transfusion Trend CBC Transfuse as per ICU protocol one dose of Lasix in light of chest cxr. -switched to lovenox Neuro Dementia- at base line per PCP -Pain management, pt on 12mcg Fentanyl patch, consider 25mcg as pt appears in significant distress with multiple sources of chronic pain Int: -Wound care Hypophosphatemia Give IV K-phos 30 mmol x 1 Trend Phos Hypernatremia Na improved to 147 on D5W now Trend Na daily continue free water replacement FEN replet elctrolytes as needed Prophylactic D51/2 NS 75cc/hr NPO -[id number] -PPI- protonix -Bowel regiment in setting of opioid use Dispo: can transfer to tele. Visit type - Emergency Visit Emergency Visit: Yes ED Registration Date: 06/30/16 Care time: The patient presented to the Emergency Department on the above date and was hospitalized for further evaluation of their emergent condition. - New Patient This patient is new to me today: No - Critical Care Critical Care patient: Yes Total Critical Care Time (in minutes): 41 Critical Care Statement: The care of this patient involved high complexity decision making to prevent further life threatening deterioration of the patient 's condition and/or to evalute & treat vital organ system(s) failure or risk of failure.
[2016-07-06] MEDS ORDERED: PT OWN MED DRAWER 7, Y5N ONE ×2 (07:58→12:03)
[2016-07-06] MEDS: AMINO ACIDS/PROTEIN HYDROLYS 30 ML LIQUID.PKT NGT SCH ×2 (08:43→18:29)
[2016-07-06] MEDS: TAMSULOSIN HCL 0.4 MG CAP.ER.24H (FP) PO SCH (08:43)
--- NOTE | 2016-07-06 08:55 | PN ---
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, Physician History of Present Illness: IN ICU OFF PRESSERS VOMITED LAST NIGHT - Current Medication List Current Medications: Active Medications Acetaminophen (Ofirmev Injection -) 1,000 mg IVPB Q6H PRN Acetaminophen (Tylenol Suppository -) 650 mg [place] Q6H PRN PRN Reason: FEVER OR PAIN Albuterol Sulfate (Ventolin 0.083% Nebulizer Soln -) 1 amp NEB QIDR [facility] Last Admin: 07/06/16 06:23 Dose: 1 amp Amino Acids (Prosource No Carb Liquid Pkt) 30 ml NGT BID@0800,1730 [facility] Last Admin: 07/06/16 08:43 Dose: 30 ml Ascorbic Acid (Vitamin C Oral Solution -) 500 mg NGT TID [facility] Last Admin: 07/06/16 06:39 Dose: 500 mg Atorvastatin Calcium (Lipitor -) 10 mg NGT HS [facility] Last Admin: 07/05/16 22:38 Dose: 10 mg Collagenase (Santyl -) 1 applic TP DAILY [facility] Enoxaparin Sodium (Lovenox -) 50 mg SQ BID [facility] Furosemide (Lasix Injection -) 40 mg IVPB ONCE ONE Stop: 07/06/16 08:51 Dextrose (D5w -) 1,000 mls @ 42 mls/hr IV ASDIR [facility] Last Admin: 07/05/16 22:16 Dose: 42 mls/hr Ertapenem 1 gm/ Sodium (Chloride) 50 mls @ 50 mls/hr IVPB DAILY [facility] PRN Reason: Protocol Stop: 07/06/16 10:30 Ibuprofen (Caldolor Injection -) 400 mg IVPB Q6H PRN PRN Reason: FEVER Insulin Aspart (Novolog Vial Sliding Scale -) 1 vial SQ ACHS [facility] PRN Reason: Protocol Last Admin: 07/06/16 06:39 Dose: Not Given Insulin Detemir (Levemir Vial) 12 units SQ BIDAC [facility] Last Admin: 07/06/16 06:41 Dose: 12 units Ipratropium [place] (Atrovent 0.02% Nebulizer -) 1 amp NEB Q6HPO [facility] Last Admin: 07/06/16 06:23 Dose: 1 amp Metoprolol Succinate (Toprol Xl -) 25 mg PO DAILY [facility] Mirtazapine (Remeron -) 30 mg PO HS [facility] Last Admin: 07/05/16 22:11 Dose: Not Given Olanzapine (Zyprexa -) 5 mg PO BID [facility] Last Admin: 07/05/16 22:39 Dose: 5 mg Pantoprazole Sodium (Protonix -) 20 mg PO DAILY [facility] Senna (Senna -) 1 tab PO HS [facility] Last Admin: 07/05/16 22:38 Dose: 1 tab Sodium Bicarbonate (Sodium Bicarbonate -) 650 mg PO BID [facility] Last Admin: 07/05/16 22:38 Dose: 650 mg Tamsulosin HCl (Flomax -) 0.4 mg PO DAILY@0830 [facility] Last Admin: 07/06/16 08:43 Dose: 0.4 mg Zinc Sulfate (Orazinc -) 220 mg NGT DAILY [facility] - Objective Vital Signs: Vital Signs Temperature 99.5 F 07/06/16 06:00 Pulse Rate 110 H 07/06/16 06:00 Respiratory Rate 20 07/06/16 06:00 Blood Pressure 156/75 07/06/16 06:00 O2 Sat by Pulse Oximetry (%) 100 07/05/16 22:00 Cardiovascular: Yes: S1, S2 Respiratory: Yes: Rales Gastrointestinal: Yes: Normal Bowel Sounds, Soft Extremities: Yes: Amputation Labs: CBC, BMP 07/06/16 05:20 07/06/16 05:20 INR, PTT INR 1.08 (0.82-1.09) 07/01/16 01:45 Problem List - Problems (1) Septic shock Assessment/Plan: PROBABLY URINARY SOURCE IVF IV ABX PER ID--TODAY LAST DOSE Stop Vancomycin Ertepenem for 2 more doses Microbiology 07/02/16 16:00 Blood - Peripheral Venous Blood Culture - Preliminary NO GROWTH OBTAINED AFTER 48 HOURS, INCUBATION TO CONTINUE FOR 3 DAYS. 07/02/16 16:00 Blood - Peripheral Venous Blood Culture - Preliminary NO GROWTH OBTAINED AFTER 48 HOURS, INCUBATION TO CONTINUE FOR 3 DAYS. 07/01/16 01:45 Back Gram Stain - Final 07/01/16 01:45 Back Wound Culture - Final Yeast Like Organism Enterococcus Faecalis Staphylococcus Aureus Vr Ec Faecium Escherichia Coli Esbl Territory Development Manager 06/30/16 09:25 Blood - Peripheral Venous Blood Culture - Preliminary NO GROWTH OBTAINED AFTER 96 HOURS, INCUBATION TO CONTINUE FOR 1 DAYS. 06/30/16 09:25 Blood - Peripheral Venous Blood Culture - Preliminary NO GROWTH OBTAINED AFTER 96 HOURS, INCUBATION TO CONTINUE FOR 1 DAYS. 07/02/16 19:00 Stool Clostridium difficile Antigen (JAKY) - Final 07/02/16 19:00 Stool Clostridium difficile Toxin Assay - Final 06/30/16 00:49 Urine - Urine [place] Urine Culture - Final Escherichia Coli Esbl Territory Development Manager Code(s): A41.9 - SEPSIS, UNSPECIFIED ORGANISM R65.21 - SEVERE SEPSIS WITH SEPTIC SHOCK (2) UTI (urinary tract infection) Assessment/Plan: ABX CULTURES ID ON BOARD Code(s): N39.0 - URINARY TRACT INFECTION, SITE NOT SPECIFIED Qualifiers: Urinary tract infection type: acute cystitis Hematuria presence: without hematuria Qualified Code(s): N30.00 - Acute cystitis without hematuria (3) Fever Code(s): R50.9 - FEVER, UNSPECIFIED (4) Pneumonia Assessment/Plan: F/U CXR NOTED--??? PNA ABX RPT CXR Code(s): J18.9 - PNEUMONIA, UNSPECIFIED ORGANISM Qualifiers: Pneumonia type: due to unspecified organism Laterality: left Lung location: lower lobe of lung Qualified Code(s): J18.1 - Lobar pneumonia, unspecified organism (5) CKD (chronic kidney disease) Assessment/Plan: MONITOR IMPROVING Laboratory Tests 07/01/16 07/05/16 01:45 05:25 Creatinine 2.2 H 0.5 L D Code(s): N18.9 - CHRONIC KIDNEY DISEASE, UNSPECIFIED (6) S/P bilateral below knee amputation Assessment/Plan: MONITOR Code(s): Z89.512 - ACQUIRED ABSENCE OF LEFT LEG BELOW KNEE Z89.511 - ACQUIRED ABSENCE OF RIGHT LEG BELOW KNEE (7) Decubitus ulcer Assessment/Plan: wound care FOR DEBRIDEMENT Code(s): L89.90 - PRESSURE ULCER OF UNSPECIFIED SITE, UNSPECIFIED STAGE (8) Anemia Assessment/Plan: MONITOR S/P TRANSFUSION Code(s): D64.9 - ANEMIA, UNSPECIFIED Qualifiers: Anemia type: iron deficiency (9) Diabetes Assessment/Plan: MONITOR B/S ENDO CONSULT SS/LEVEMIR Code(s): E11.9 - TYPE 2 DIABETES MELLITUS WITHOUT COMPLICATIONS Qualifiers: Diabetes mellitus type: type 2 (10) DVT, bilateral lower limbs Assessment/Plan: ON HEPARIN DRIP--CHANGE TO LOVENOX Code(s): I82.403 - ACUTE EMBOLISM AND THOMBOS UNSP DEEP VEINS OF LOW EXTRM, BI (11) CHF (congestive heart failure) Assessment/Plan: IV LASIX X 1 F/U CXR Code(s): I50.9 - HEART FAILURE, UNSPECIFIED Qualifiers: Congestive heart failure type: diastolic Congestive heart failure chronicity: chronic Qualified Code(s): I50.32 - Chronic diastolic ( congestive) heart failure
[2016-07-06] MEDS ORDERED: MAGNESIUM SULF 50% (8.12 MEQ/2 ML-1 GM VIAL) IVPB ONE (09:00)
[2016-07-06] MEDS: OLANZapine 5 MG TABLET PO SCH ×2 (09:03→22:24)
[2016-07-06] MEDS: SODIUM BICARBONATE 650 MG TABLET PO SCH ×2 (09:03→22:22)
[2016-07-06] MEDS: PANTOPRAZOLE 20 MG TABLET (FP) PO SCH (09:04)
[2016-07-06] MEDS: ZINC SULFATE 220 MG CAPSULE (FP) NGT SCH (09:04)
[2016-07-06] MEDS: ERTAPENEM SODIUM 1 GM in SODIUM CHLORIDE 50 ML IVPB SCH (09:05)
[2016-07-06] MEDS ORDERED: FUROSEMIDE 40 MG/4 ML INJECTABLE VIAL IVPB ONE (09:15)
[2016-07-06] MEDS ORDERED: METOPROLOL SUCCINATE 25 MG TAB.SR.24H (FP) PO SCH (10:00)
[2016-07-06] MEDS ORDERED: ERTAPENEM SODIUM 1 GM in SODIUM CHLORIDE 50 ML IVPB SCH (10:00)
[2016-07-06] MEDS ORDERED: POTASSIUM PHOSPHATE 20 MM in SODIUM CHLORIDE 250 ML IVPB ONE (10:00)
--- NOTE | 2016-07-06 10:29 | PN ---
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 (short form) - Note 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: Renal Follow up for Hypernatremia Pt seen and examined in the ICU more awake today started on tube feeds yesterday but had emesis last night, currenty tube feeds resumed on D5W good urine output BP stable Vital Signs Temperature 99.2 F 07/06/16 08:00 Pulse Rate 92 H 07/06/16 08:00 Respiratory Rate 18 07/06/16 08:00 Blood Pressure 111/57 07/06/16 08:00 O2 Sat by Pulse Oximetry (%) 96 07/06/16 08:00 Intake & Output 07/03/16 07/04/16 07/05/16 07/06/16 23:59 23:59 23:59 23:59 Intake Total 3300 2486 2309 1026 Output Total 5198 675 0950 1000 Balance 1900 1811 1059 26 Weight 114 lb 114 lb 4 oz 113 lb 8 oz 114 lb 10.246 oz Gen: on NC O2, more awake CVS: RRR, No M/R Lungs: Dec BS, no rales Abd: soft NT/ND Ext: s/p B/L BKA, trace sacral edema : conley in place with yellow urine CBC, BMP 07/06/16 05:20 07/06/16 05:20 Laboratory Tests 07/06/16 07/06/16 05:20 05:20 Calcium 7.8 L Phosphorus 2.2 L D Albumin 1.4 L Current Medications Acetaminophen (Ofirmev Injection -) 1,000 mg IVPB Q6H PRN Acetaminophen (Tylenol Suppository -) 650 mg [place] Q6H PRN PRN Reason: FEVER OR PAIN Albuterol Sulfate (Ventolin 0.083% Nebulizer Soln -) 1 amp NEB QIDR [facility] Last Admin: 07/06/16 06:23 Dose: 1 amp Amino Acids (Prosource No Carb Liquid Pkt) 30 ml NGT BID@0800,1730 [facility] Last Admin: 07/06/16 08:43 Dose: 30 ml Ascorbic Acid (Vitamin C Oral Solution -) 500 mg NGT TID [facility] Last Admin: 07/06/16 06:39 Dose: 500 mg Atorvastatin Calcium (Lipitor -) 10 mg NGT HS [facility] Last Admin: 07/05/16 22:38 Dose: 10 mg Collagenase (Santyl -) 1 applic TP DAILY [facility] Enoxaparin Sodium (Lovenox -) 50 mg SQ BID [facility] Ertapenem 1 gm/ Sodium (Chloride) 50 mls @ 50 mls/hr IVPB DAILY [facility] PRN Reason: Protocol Stop: 07/06/16 10:30 Potassium Phosphate 20 mm/ (Sodium Chloride) 256.6667 mls @ 62.5 mls/hr IVPB ONCE ONE Stop: 07/06/16 14:06 Ibuprofen (Caldolor Injection -) 400 mg IVPB Q6H PRN PRN Reason: FEVER Insulin Aspart (Novolog Vial Sliding Scale -) 1 vial SQ ACHS [facility] PRN Reason: Protocol Last Admin: 07/06/16 06:39 Dose: Not Given Insulin Detemir (Levemir Vial) 12 units SQ BIDAC [facility] Last Admin: 07/06/16 06:41 Dose: 12 units Ipratropium [place] (Atrovent 0.02% Nebulizer -) 1 amp NEB Q6HPO [facility] Last Admin: 07/06/16 06:23 Dose: 1 amp Metoprolol Tartrate (Lopressor -) 25 mg PO BID [facility] Mirtazapine (Remeron -) 30 mg PO HS [facility] Last Admin: 07/05/16 22:11 Dose: Not Given Olanzapine (Zyprexa -) 5 mg PO BID [facility] Last Admin: 07/06/16 09:03 Dose: 5 mg Pantoprazole Sodium (Protonix -) 20 mg PO DAILY [facility] Last Admin: 07/06/16 09:04 Dose: Not Given Senna (Senna -) 1 tab PO HS [facility] Last Admin: 07/05/16 22:38 Dose: 1 tab Sodium Bicarbonate (Sodium Bicarbonate -) 650 mg PO BID [facility] Last Admin: 07/06/16 09:03 Dose: 650 mg Tamsulosin HCl (Flomax -) 0.4 mg PO DAILY@0830 [facility] Last Admin: 07/06/16 08:43 Dose: 0.4 mg Zinc Sulfate (Orazinc -) 220 mg NGT DAILY [facility] Last Admin: 07/06/16 09:04 Dose: 220 mg A/P 80 year old woman with PMhx of Multiple GIANNI's, Hypernatremia, Hypertension, DM, HLD, GERD who presented [place] with hypoxia and found to have Septic shock from UTI/Infected Sacral Decubitis Ulcers with GIANNI with Cr of 2.2 and worsening hypernatremia. #Hypernatremia Na improved to 147 on D5W now if pt tolerated tube feeds with free water can d/c D5W Trend Na daily #Septic Shock/UTI/Infected Sacral Decubitis Ulcers Continue Care as per ICU team Pt off pressers Continue supplemental O2 #Anemia Requiring Transfusion Trend CBC Transfuse as per ICU protocol #Hypophosphatemia Give IV K-phos 30 mmol x 1 Trend Phos should improve with tube feeds Thank you Vahid Manzano DO
--- NOTE | 2016-07-06 10:44 | PN ---
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 (short form) - Note 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: Vascular Surgery- Dr. Rivers Patient with infected sacral ulcer Last Vital Signs Temp Pulse Resp BP Pulse Ox 99.2 F 92 H 18 111/57 96 07/06/16 08:00 07/06/16 08:00 07/06/16 08:00 07/06/16 08:00 07/06/16 08:00 CBC, BMP 07/06/16 05:20 07/06/16 05:20 Sacral ulcer needing debridement Patient discussed with Dr. Rivers Plan for OR debridement 07/08
--- NOTE | 2016-07-06 10:52 | PN ---
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 (short form) - Note 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: remains on venti mask Vital Signs Period Temp Pulse Resp BP Sys/Chávez Pulse Ox Last 24 Hr 98.7 F-100.5 F 80-114 16-34 96-157/37-79 96-100 cor-rrr lungs bilateral rhonchi abd soft,nt ext bilateral BKA cxray unchanged CBC, BMP 07/06/16 05:20 07/06/16 05:20 Microbiology 07/02/16 16:00 Blood Culture - Preliminary Blood - Peripheral Venous NO GROWTH OBTAINED AFTER 72 HOURS, INCUBATION TO CONTINUE FOR 2 DAYS. 07/02/16 16:00 Blood Culture - Preliminary Blood - Peripheral Venous NO GROWTH OBTAINED AFTER 72 HOURS, INCUBATION TO CONTINUE FOR 2 DAYS. 07/04/16 10:45 Blood Culture - Preliminary Blood - Peripheral Venous NO GROWTH OBTAINED AFTER 24 HOURS, INCUBATION TO CONTINUE FOR 4 DAYS. 07/04/16 10:45 Blood Culture - Preliminary Blood - Peripheral Venous NO GROWTH OBTAINED AFTER 24 HOURS, INCUBATION TO CONTINUE FOR 4 DAYS. 06/30/16 09:25 Blood Culture - Final Blood - Peripheral Venous NO GROWTH AFTER 5 DAYS INCUBATION 06/30/16 09:25 Blood Culture - Final Blood - Peripheral Venous NO GROWTH AFTER 5 DAYS INCUBATION 07/04/16 16:00 Legionella Antigen - Final Urine For Antigen Detection Streptococcus pneumoniae Antigen (M - Final a/p day #6 ertapenem ecoli esbl uti infected sacral ulcer pneumonia continue ertapenem for debridement of sacral ulcer when stable Problem List - Problems (1) Sepsis Code(s): A41.9 - SEPSIS, UNSPECIFIED ORGANISM Qualifiers: Qualified Code(s): A41.51 - Sepsis due to Escherichia coli [E. coli] (2) UTI (urinary tract infection) Code(s): N39.0 - URINARY TRACT INFECTION, SITE NOT SPECIFIED Qualifiers: Qualified Code(s): N30.00 - Acute cystitis without hematuria (3) Infected decubitus ulcer Code(s): L89.90 - PRESSURE ULCER OF UNSPECIFIED SITE, UNSPECIFIED STAGE
--- NOTE | 2016-07-06 11:17 | PN ---
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, NAILHEAD OPERATOR - Note 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: Pt with NGT feeding. Medical notes reviewed. Vomited last night. Appears comfortable, without SOB at this time. Selected Entries 07/05/16 07/05/16 07/05/16 01:06 02:00 04:00 Temperature 98.8 F 99.4 F 98.6 F 07/05/16 07/05/16 07/05/16 06:00 08:00 10:00 Temperature 98.4 F 98.6 F 98.8 F 07/05/16 07/05/16 07/05/16 12:00 14:00 16:00 Temperature 98.7 F 99.4 F 99.5 F 07/05/16 07/05/16 07/06/16 18:00 20:00 00:00 Temperature 99.6 F 99.8 F H 100.5 F H 07/06/16 07/06/16 07/06/16 02:00 06:00 08:00 Temperature 99.6 F 99.5 F 99.2 F 07/06/16 10:53 Temperature 99.6 F Laboratory Tests 07/05/16 07/06/16 05:25 05:20 WBC 9.8 7.2 Seen by palliative care yesterday. Pt is a full code. h/o limited po acceptance. Family wishes regarding PEG insertion?
[2016-07-06] MEDS ORDERED: MAGNESIUM SULF 50% (8.12 MEQ/2 ML-1 GM VIAL) ONE (12:03)
[2016-07-06] MEDS: ENOXAPARIN NA (PORCINE) 60 MG/0.6 ML DISP.SYRIN SQ SCH ×2 (12:06→22:23)
[2016-07-06] MEDS: METOPROLOL TARTRATE 25 MG TABLET (FP) PO SCH ×2 (12:06→22:22)
--- NOTE | 2016-07-06 12:53 | PN ---
Teaching Attending Note Name of Resident: Lorenzo Vang ATTENDING PHYSICIAN STATEMENT I saw and evaluated the patient. I reviewed the resident's note and discussed the case with the resident. I agree with the resident's findings and plan as documented. SUBJECTIVE: Pt seen and examined in the ICU. More alert, awake today. Low grade temp overnight. OBJECTIVE: Last Vital Signs Temp Pulse Resp BP Pulse Ox 99.6 F 103 H 18 119/59 100 07/06/16 10:53 07/06/16 11:30 07/06/16 10:53 07/06/16 10:53 07/06/16 11:30 Intake & Output 07/03/16 07/04/16 07/05/16 07/06/16 23:59 23:59 23:59 23:59 Intake Total 3300 2486 2309 1026 Output Total 3419 387 1798 1000 Balance 1900 1811 1059 26 Weight 114 lb 114 lb 4 oz 113 lb 8 oz 114 lb 10.246 oz Gen: more alert, awake Heart: tachycardic, regular Lung: scattered rhonchi Abd: soft, nontender Ext: bilateral rhonchi CBC, BMP 07/06/16 05:20 07/06/16 05:20 Active Medications Acetaminophen (Ofirmev Injection -) 1,000 mg IVPB Q6H PRN Acetaminophen (Tylenol Suppository -) 650 mg [place] Q6H PRN PRN Reason: FEVER OR PAIN Albuterol Sulfate (Ventolin 0.083% Nebulizer Soln -) 1 amp NEB QIDR [facility] Last Admin: 07/06/16 11:30 Dose: 1 amp Amino Acids (Prosource No Carb Liquid Pkt) 30 ml NGT BID@0800,1730 [facility] Last Admin: 07/06/16 08:43 Dose: 30 ml Ascorbic Acid (Vitamin C Oral Solution -) 500 mg NGT TID [facility] Last Admin: 07/06/16 06:39 Dose: 500 mg Atorvastatin Calcium (Lipitor -) 10 mg NGT HS [facility] Last Admin: 07/05/16 22:38 Dose: 10 mg Collagenase (Santyl -) 1 applic TP DAILY [facility] Enoxaparin Sodium (Lovenox -) 50 mg SQ BID [facility] Last Admin: 07/06/16 12:06 Dose: 50 mg Potassium Phosphate 20 mm/ (Sodium Chloride) 256.6667 mls @ 62.5 mls/hr IVPB ONCE ONE Stop: 07/06/16 14:06 Last Admin: 07/06/16 12:07 Dose: 62.5 mls/hr Ertapenem 1 gm/ Sodium (Chloride) 50 mls @ 50 mls/hr IVPB DAILY [facility] PRN Reason: Protocol Ibuprofen (Caldolor Injection -) 400 mg IVPB Q6H PRN PRN Reason: FEVER Insulin Aspart (Novolog Vial Sliding Scale -) 1 vial SQ ACHS [facility] PRN Reason: Protocol Last Admin: 07/06/16 06:39 Dose: Not Given Insulin Detemir (Levemir Vial) 12 units SQ BIDAC [facility] Last Admin: 07/06/16 06:41 Dose: 12 units Ipratropium [place] (Atrovent 0.02% Nebulizer -) 1 amp NEB Q6HPO [facility] Last Admin: 07/06/16 11:30 Dose: 1 amp Metoprolol Tartrate (Lopressor -) 25 mg PO BID [facility] Last Admin: 07/06/16 12:06 Dose: 25 mg Mirtazapine (Remeron -) 30 mg PO HS [facility] Last Admin: 07/05/16 22:11 Dose: Not Given Olanzapine (Zyprexa -) 5 mg PO BID [facility] Last Admin: 07/06/16 09:03 Dose: 5 mg Pantoprazole Sodium (Protonix -) 20 mg PO DAILY [facility] Last Admin: 07/06/16 09:04 Dose: Not Given Senna (Senna -) 1 tab PO [facility] Last Admin: 07/05/16 22:38 Dose: 1 tab Sodium Bicarbonate (Sodium Bicarbonate -) 650 mg PO BID [facility] Last Admin: 07/06/16 09:03 Dose: 650 mg Tamsulosin HCl (Flomax -) 0.4 mg PO DAILY@0830 [facility] Last Admin: 07/06/16 08:43 Dose: 0.4 mg Zinc Sulfate (Orazinc -) 220 mg NGT DAILY [facility] Last Admin: 07/06/16 09:04 Dose: 220 mg ASSESSMENT AND PLAN: Acute Hypoxic Respiratory Failure UTI Sacral Decubitus Ulcer Infection Septic Shock resolving Lactic Acidosis improved Acute Kidney Injury resolving Bilateral DVTs HTN DM Dementia - continue antibiotics - for sacral ulcer debridement - continue free water replacement - monitor urine output, creatinine - glucose control - BiPAP as needed to assist in work of breathing - titrate FiO2 to keep SpO2 >90% - aspiration precautions - DVT/GI prophylaxis - can monitor on telemetry critical care time spent in reviewing chart, evaluating patient and formulating plan 35 min
[2016-07-06] MEDS: COLLAGENASE CLOSTRIDIUM HIST. 30 GRAMS TUBE TP SCH (16:07)
[2016-07-06] MEDS ORDERED: CALCIUM GLUCONATE 10% - 1,000 MG/10 ML VIAL IVPUSH ONE (18:43)
[2016-07-06] MEDS ORDERED: HEMOQUE TEST 1 EACH EACH ONE (21:36)
[2016-07-06] MEDS ORDERED: MIRTAZAPINE 15 MG TABLET (FP) ONE (21:37)
[2016-07-06] MEDS: ATORVASTATIN CA 10 MG TABLET (FP) NGT SCH (22:22)
[2016-07-06] MEDS: SENNOSIDES 8.6MG TABLET (FP) PO SCH (22:24)
[2016-07-06] MEDS: MIRTAZAPINE 30 MG TABLET (FP) PO SCH (22:25)
[2016-07-07] MEDS: IPRATROPIUM BR 0.02% 0.5 MG/2.5 ML VIAL.NEB. NEB SCH ×4 (00:13→19:00)
[2016-07-07] MEDS: ALBUTEROL SO4 0.083% IH SOL 2.5 MG/3 ML VIAL.NEB. NEB SCH ×4 (00:14→19:00)
[2016-07-07] MEDS ORDERED: INSULIN DETEMIR 100 UNITS/ML MDV SQ SCH (06:40)
[2016-07-07] MEDS: INSULIN SLIDING SCALE (NOVOLOG) 1 VIAL SQ SCH ×4 (06:41→22:32)
[2016-07-07] MEDS: ASCORBIC ACID 500 MG/5 ML UNIT DOSE CUP NGT SCH ×3 (06:41→22:19)
[2016-07-07 06:44] LABS: MCH 30.5 pg (25.7-33.7); MEAN CELL VOLUME 92.3 fl (80-96); MEAN PLT VOLUME 8.3 fl (7.5-11.1); PLATELET COUNT 332 K/MM3 (134-434); RDW 15.6 % (11.6-15.6); WHITE BLOOD COUNT 6.5 K/mm3 (4.0-10.0)
--- NOTE | 2016-07-07 06:44 | PN ---
Physical Exam: SUBJECTIVE: Patient seen and examined at bed side in icu. NAD, mentl status at base line. NG tube out yesterday, patient not taking sufficient PO intake, hypoglycemic, will dc levamir insulin. central line removed last night. no other overnight events. afebrile overnight, tachycardic, good urine output Scheduled for OR debridement tomorrow at 1:30pm, will stop lovenox afetr morning dose today. SVT inc dose metorpolol, and 5mg IVpush of lopresor per cardiology"She has no cardiac contraindications to further debridement surgery. Medically optimized. She is at low to intermediate risk of periop events but the benefits of infection treatment outweigh the risks. " OBJECTIVE: Vital Signs Period Temp Pulse Resp BP Sys/Chávez Pulse Ox Last 24 Hr 98.1 F-100.2 F 85-108 14-28 98-143/47-75 96-100 GENERAL: The patient is less lethargic, arousable, wake, and not oriented, NAD , in no respiratory distress, NC HEAD: Normal with no signs of trauma. EYES: PERRL, extraocular movements intact, sclera anicteric, conjunctiva clear. No ptosis. ENT: Ears normal, nares patent, oropharynx clear without exudates, moist mucous membranes. NECK: Trachea midline, full range of motion, supple. LUNGS: decreases air intake at bases, scattered rhonchi, no wheezes, no accessory muscle use. HEART: distant heart sounds, tachy rate and regular rhythm, S1, S2 without murmur, rub or gallop. ABDOMEN: Soft, nontender, nondistended, hypoactive bowel sounds, no guarding, no rebound, no hepatosplenomegaly, no masses. Gonzales intact yellow urine EXTREMITIES: Bilateral BKA, NEUROLOGICAL: no facial asymmetry, nonverbal, alert, responds to stimuli, gait not observed. PSYCH: Normal mood, normal affect. 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, Laboratory Results - last 24 hr 07/01/16 07/02/16 07/06/16 01:45 13:50 05:20 WBC 7.2 RBC 3.01 L Hgb 9.0 L Hct 27.9 L MCV 92.5 MCHC 32.4 RDW 15.4 Plt Count 274 MPV 8.4 PTT (Actin FS) Sodium Potassium Chloride Carbon Dioxide Anion Gap BUN Creatinine Creat Clearance w eGFR POC Glucometer Random Glucose Calcium Phosphorus Magnesium Total Bilirubin AST ALT Alkaline Phosphatase Ammonia 43.32 H Total Protein Albumin Stool Occult Blood Blood Type O POSITIVE Antibody Screen Positive H Antibody Identification WARM AUTOIMMUNE HEMO ANEMIA Crossmatch See Detail 07/06/16 07/06/16 07/06/16 05:20 05:20 05:20 WBC RBC Hgb Hct MCV MCHC RDW Plt Count MPV PTT (Actin FS) 60.6 H Sodium 147 H Potassium 3.4 L Chloride 114 H Carbon Dioxide 26 Anion Gap 7 L BUN 10 D Creatinine 0.4 L Creat Clearance w eGFR > 60 POC Glucometer Random Glucose 142 H Calcium 7.8 L Phosphorus 2.2 L D Magnesium 1.8 Total Bilirubin 0.2 D AST 18 ALT 15 Alkaline Phosphatase 89 Ammonia Total Protein 5.7 L Albumin 1.4 L Stool Occult Blood Blood Type Antibody Screen Antibody Identification Crossmatch 07/06/16 07/06/16 07/06/16 06:33 12:59 16:33 WBC RBC Hgb Hct MCV MCHC RDW Plt Count MPV PTT (Actin FS) Sodium Potassium Chloride Carbon Dioxide Anion Gap BUN Creatinine Creat Clearance w eGFR POC Glucometer [phone] Random Glucose Calcium Phosphorus Magnesium Total Bilirubin AST ALT Alkaline Phosphatase Ammonia Total Protein Albumin Stool Occult Blood Negative Blood Type Antibody Screen Antibody Identification Crossmatch 07/06/16 07/06/16 18:23 21:40 WBC RBC Hgb Hct MCV MCHC RDW Plt Count MPV PTT (Actin FS) Sodium Potassium Chloride Carbon Dioxide Anion Gap BUN Creatinine Creat Clearance w eGFR POC Glucometer [phone] Random Glucose Calcium Phosphorus Magnesium Total Bilirubin AST ALT Alkaline Phosphatase Ammonia Total Protein Albumin Stool Occult Blood Blood Type Antibody Screen Antibody Identification Crossmatch Active Medications Generic Name Dose Route Start Last Admin Trade Name Freq PRN Reason Stop Dose Admin Acetaminophen 1,000 mg 07/05/16 20:21 Ofirmev Injection - IVPB Q6H PRN Acetaminophen 650 mg 07/05/16 20:21 Tylenol Suppository - MS Q6H PRN FEVER OR PAIN Albuterol Sulfate 1 amp 07/06/16 00:00 07/07/16 00:14 Ventolin 0.083% Nebulizer Soln - NEB 1 amp QIDR LARRY Administration Amino Acids 30 ml 07/05/16 17:30 07/06/16 18:29 Prosource No Carb Liquid Pkt NGT Not Given BID@0800,1730 [facility] Ascorbic Acid 500 mg 07/05/16 22:00 07/06/16 22:24 Vitamin C Oral Solution - NGT 500 mg TID LARRY Administration Atorvastatin Calcium 10 mg 07/05/16 22:00 07/06/16 22:22 Lipitor - NGT 10 mg HS LARRY Administration Collagenase 1 applic 07/06/16 10:00 07/06/16 16:07 Santyl - TP 1 applic DAILY LARRY Administration Enoxaparin Sodium 50 mg 07/06/16 10:00 07/06/16 22:23 Lovenox - SQ 50 mg BID LARRY Administration Ertapenem 1 gm/ Sodium 50 mls @ 50 mls/hr 07/07/16 10:00 Chloride IVPB DAILY [facility] Protocol Ibuprofen 400 mg 07/05/16 20:21 Caldolor Injection - IVPB Q6H PRN FEVER Insulin Aspart 1 vial 07/05/16 22:00 07/06/16 22:23 Novolog Vial Sliding Scale - SQ Not Given ACHS [facility] Protocol Insulin Detemir 6 units 07/07/16 06:40 Levemir Vial SQ BIDAC LARRY Ipratropium [place] 1 amp 07/06/16 00:00 07/07/16 00:13 Atrovent 0.02% Nebulizer - NEB 1 amp Q6HPO LARRY Administration Metoprolol Tartrate 25 mg 07/06/16 10:00 07/06/16 22:22 Lopressor - PO 25 mg BID LARRY Administration Mirtazapine 30 mg 07/05/16 22:00 07/06/16 22:25 Remeron - PO 30 mg HS LARRY Administration Olanzapine 5 mg 07/05/16 22:00 07/06/16 22:24 Zyprexa - PO 5 mg BID LARRY Administration Pantoprazole Sodium 20 mg 07/06/16 10:00 07/06/16 09:04 Protonix - PO Not Given DAILY LARRY Senna 1 tab 07/05/16 22:00 07/06/16 22:24 Senna - PO 1 tab HS LARRY Administration Sodium Bicarbonate 650 mg 07/05/16 22:00 07/06/16 22:22 Sodium Bicarbonate - PO 650 mg BID LARRY Administration Tamsulosin HCl 0.4 mg 07/06/16 08:30 07/06/16 08:43 Flomax - PO 0.4 mg DAILY@0830 LARRY Administration Zinc Sulfate 220 mg 07/05/16 14:59 07/06/16 09:04 Orazinc - NGT 220 mg DAILY LARRY Administration ASSESSMENT/PLAN: ASSESSMENT/PLAN: Pt is a 80yr old woman with PMHx including HTN, HLD, DM dementia, GERD, recurrent MDR UTIs, wounds and bilateral BKA. Now in the ICU for management of septic shock secondary to UTI/sacral wound, GIANNI and hyperglycemia. Pulm:LE Doppler performed due to high A-a gradient, showing bilateral DVTs, likely has pulmonary emboli as well. -start heparin gtt -o2 support for sat >90 -f/u stat abg -f/u repeat chest xray -nebulizers -BiPAP to assist in work of breathing ID: Septic Shock possibly possible UTI v osteo (Sacral Decubitus Ulcer Infectionon sacr or LLE ulcer and bone exposed)) , shock could be multifactorial in setting of probable DVT. -f/u cultures UTI resistant organismand Sacral decubuus back: Yeast Like Organism, Enterococcus Faecalis, Staphylococcus Aureus, vr Ec Faecium, Escherichia Coli Esbl [facility] Urine: Escherichia Coli Esbl [facility] -ID following -Meropenem 500 mg/ Dextrose per ID -Ertepenem Plan Continue antibiotic through debridment -Isolation precautions -f/u vanco level AM, consider redosing in am. Patient with infected sacral ulcer -discussed with surgery and possible debridement of sacral sound. patient is medicably optimized for a low risk procedure -Plan for OR debridement 07/08, -Wound care Renal: GIANNI, resolved Hypernatremia-Serum increasing continue D5W IV Trend Na Q24hr -Replete electrolytes prn -I/Os -f/u repeat UA -monitor urine output, creatinine Endo:DM - glucose control keep glucose >160 -f/u repeat chemistry pt s/p -d/c Levemir 2/2 poor oral intake and hypoglycemia -ISS -BGM Cardiac: hypotension BP resolved-off pressures SVT inc dose metorpolol, and 5mg IVpush of lopresor -f/u enzymes Anemia s/p Transfusion Trend CBC Transfuse as per ICU protocol one dose of Lasix in light of chest cxr -hold lovenox day prior to surgery Neuro Dementia- at base line per PCP -Pain management, pt on 12mcg Fentanyl patch, consider 25mcg as pt appears in significant distress with multiple sources of chronic pain Hypophosphatemia Give IV K-phos 30 mmol x 1 Trend Phos Hypernatremia Na improved to 147 on D5W now Trend Na daily continue free water replacement FEN replet elctrolytes as needed Prophylactic D51/2 NS 75cc/hr NPO after midnight -DVT-lovenox stopped for tomorrow -PPI- protonix -Bowel regiment in setting of opioid use Dispo: can transfer to tele. Visit type - Emergency Visit Emergency Visit: Yes ED Registration Date: 06/30/16 Care time: The patient presented to the Emergency Department on the above date and was hospitalized for further evaluation of their emergent condition. - New Patient This patient is new to me today: No - Critical Care Critical Care patient: Yes Total Critical Care Time (in minutes): 46 Critical Care Statement: The care of this patient involved high complexity decision making to prevent further life threatening deterioration of the patient 's condition and/or to evalute & treat vital organ system(s) failure or risk of failure.
[2016-07-07 07:10] LABS: CALCIUM 8.4 mg/dL (8.5-10.1); COCKROFT - GAULT 71.4; CREATININE 0.5 mg/dL (0.55-1.02)
--- NOTE | 2016-07-07 07:39 | SPA.PREOP ---
- PRE-OP NOTE Dx: Sacral ulcer Planned Procedure: Sacral ulcer debridement Surgeon: Dr. Rivers Consent: To be obtained after surgeon explained all risks, benefits and alternatives. Last Vital Signs Temp Pulse Resp BP Pulse Ox 98.7 F 96 H 15 99/55 99 07/07/16 06:00 07/07/16 06:00 07/07/16 06:00 07/07/16 06:00 07/06/16 19:43 Lab Results WBC 6.5 K/mm3 (4.0-10.0) 07/07/16 05:25 RBC 2.74 M/mm3 (3.60-5.2) L 07/07/16 05:25 Hgb 8.4 GM/dL (10.7-15.3) L 07/07/16 05:25 Hct 25.3 % (32.4-45.2) L 07/07/16 05:25 MCV 92.3 fl (80-96) 07/07/16 05:25 MCHC 33.0 g/dl (32.0-36.0) 07/07/16 05:25 RDW 15.6 % (11.6-15.6) 07/07/16 05:25 Plt Count 332 K/MM3 (134-434) D 07/07/16 05:25 Sodium 150 mmol/L (136-145) H 07/07/16 05:25 Potassium 3.6 mmol/L (3.5-5.1) 07/07/16 05:25 Chloride 112 mmol/L (98-107) H 07/07/16 05:25 Carbon Dioxide 32 mmol/L (21-32) D 07/07/16 05:25 Anion Gap 6 (8-16) L 07/07/16 05:25 BUN 11 mg/dL (7-18) 07/07/16 05:25 Creatinine 0.5 mg/dL (0.55-1.02) L D 07/07/16 05:25 Random Glucose 70 mg/dL (74-106) L D 07/07/16 05:25 Calcium 8.4 mg/dL (8.5-10.1) L 07/07/16 05:25 Blood Type O POSITIVE 07/01/16 01:45 Antibody Screen Positive H 07/01/16 01:45 INR 1.08 (0.82-1.09) 07/01/16 01:45 - ASSESSMENT/PLAN 1. Make NPO after midnight except po meds 2. GI/DVT PPX 3. Medical optimization / clearance 4. Please stop heparin gtt 2 hours prior to OR, case scheduled for 13:30 Visit type - Case Type Case Type: ED Admission
--- NOTE | 2016-07-07 08:33 | PN ---
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 (short form) - Note 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: ID day 7 antibiotic Carbepenem Ertepenem Selected Entries 07/06/16 22:00 Temperature 99 F Respiratory 26 H Rate Blood Pressure 140/75 Large sacral decubitus ulcer Microbiology 07/04/16 16:00 Urine For Antigen Detection Legionella Antigen - Final 07/04/16 16:00 Urine For Antigen Detection Streptococcus pneumoniae Antigen (M - Final 06/30/16 00:49 Urine - Urine Gonzales Urine Culture - Final Escherichia Coli Esbl Nba Player 07/04/16 10:45 Blood - Peripheral Venous Blood Culture - Preliminary NO GROWTH OBTAINED AFTER 48 HOURS, INCUBATION TO CONTINUE FOR 3 DAYS. 07/04/16 10:45 Blood - Peripheral Venous Blood Culture - Preliminary NO GROWTH OBTAINED AFTER 48 HOURS, INCUBATION TO CONTINUE FOR 3 DAYS. 07/02/16 16:00 Blood - Peripheral Venous Blood Culture - Preliminary NO GROWTH OBTAINED AFTER 96 HOURS, INCUBATION TO CONTINUE FOR 1 DAYS. 07/02/16 16:00 Blood - Peripheral Venous Blood Culture - Preliminary NO GROWTH OBTAINED AFTER 96 HOURS, INCUBATION TO CONTINUE FOR 1 DAYS. Laboratory Tests 07/07/16 07/07/16 05:25 05:25 WBC 6.5 Hgb 8.4 L Hct 25.3 L Plt Count 332 D BUN 11 Creatinine 0.5 L D Assessment Respiratory failure UTI resistant organism Sacral decubitus Plan Continue antibiotic through debridment Anastacia VERMA
[2016-07-07] MEDS: TAMSULOSIN HCL 0.4 MG CAP.ER.24H (FP) PO SCH (08:57)
[2016-07-07] MEDS: AMINO ACIDS/PROTEIN HYDROLYS 30 ML LIQUID.PKT NGT SCH ×2 (08:57→16:35)
--- NOTE | 2016-07-07 08:59 | PN ---
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, Physician History of Present Illness: IN ICU OFF PRESSERS - Current Medication List Current Medications: Active Medications Acetaminophen (Ofirmev Injection -) 1,000 mg IVPB Q6H PRN Acetaminophen (Tylenol Suppository -) 650 mg MO Q6H PRN PRN Reason: FEVER OR PAIN Albuterol Sulfate (Ventolin 0.083% Nebulizer Soln -) 1 amp NEB QIDR [facility] Last Admin: 07/07/16 07:31 Dose: 1 amp Amino Acids (Prosource No Carb Liquid Pkt) 30 ml NGT BID@0800,1730 [facility] Last Admin: 07/06/16 18:29 Dose: Not Given Ascorbic Acid (Vitamin C Oral Solution -) 500 mg NGT TID [facility] Last Admin: 07/07/16 06:41 Dose: 500 mg Atorvastatin Calcium (Lipitor -) 10 mg NGT HS [facility] Last Admin: 07/06/16 22:22 Dose: 10 mg Collagenase (Santyl -) 1 applic TP DAILY [facility] Last Admin: 07/06/16 16:07 Dose: 1 applic Enoxaparin Sodium (Lovenox -) 50 mg SQ BID [facility] Last Admin: 07/06/16 22:23 Dose: 50 mg Ertapenem 1 gm/ Sodium (Chloride) 50 mls @ 50 mls/hr IVPB DAILY [facility] PRN Reason: Protocol Ibuprofen (Caldolor Injection -) 400 mg IVPB Q6H PRN PRN Reason: FEVER Insulin Aspart (Novolog Vial Sliding Scale -) 1 vial SQ ACHS LARRY PRN Reason: Protocol Last Admin: 07/07/16 06:41 Dose: Not Given Insulin Detemir (Levemir Vial) 6 units SQ BIDAC [facility] Last Admin: 07/07/16 06:42 Dose: 6 units Ipratropium [place] (Atrovent 0.02% Nebulizer -) 1 amp NEB Q6HPO [facility] Last Admin: 07/07/16 07:31 Dose: 1 amp Metoprolol Tartrate (Lopressor -) 50 mg PO BID [facility] Metoprolol Tartrate (Lopressor Injection -) 5 mg IVPUSH ONCE ONE Stop: 07/07/16 09:01 Mirtazapine (Remeron -) 30 mg PO HS [facility] Last Admin: 07/06/16 22:25 Dose: 30 mg Olanzapine (Zyprexa -) 5 mg PO BID [facility] Last Admin: 07/06/16 22:24 Dose: 5 mg Pantoprazole Sodium (Protonix -) 20 mg PO DAILY [facility] Last Admin: 07/06/16 09:04 Dose: Not Given Senna (Senna -) 1 tab PO HS [facility] Last Admin: 07/06/16 22:24 Dose: 1 tab Sodium Bicarbonate (Sodium Bicarbonate -) 650 mg PO BID [facility] Last Admin: 07/06/16 22:22 Dose: 650 mg Tamsulosin HCl (Flomax -) 0.4 mg PO DAILY@0830 [facility] Last Admin: 07/06/16 08:43 Dose: 0.4 mg Zinc Sulfate (Orazinc -) 220 mg NGT DAILY [facility] Last Admin: 07/06/16 09:04 Dose: 220 mg - Objective Vital Signs: Vital Signs Temperature 98.7 F 07/07/16 06:00 Pulse Rate 96 H 07/07/16 06:00 Respiratory Rate 15 07/07/16 06:00 Blood Pressure 99/55 07/07/16 06:00 O2 Sat by Pulse Oximetry (%) 99 07/06/16 19:43 Cardiovascular: Yes: Tachycardia, S1, S2 Respiratory: Yes: Diminished, Rales Gastrointestinal: Yes: Normal Bowel Sounds, Soft Extremities: Yes: Amputation Labs: CBC, BMP 07/07/16 05:25 07/07/16 05:25 INR, PTT INR 1.08 (0.82-1.09) 07/01/16 01:45 Problem List - Problems (1) Septic shock Assessment/Plan: PROBABLY URINARY SOURCE/PU IVF IV ABX PER ID--TODAY LAST DOSE Stop Vancomycin Ertepenem for 2 more doses Microbiology 07/02/16 16:00 Blood - Peripheral Venous Blood Culture - Preliminary NO GROWTH OBTAINED AFTER 48 HOURS, INCUBATION TO CONTINUE FOR 3 DAYS. 07/02/16 16:00 Blood - Peripheral Venous Blood Culture - Preliminary NO GROWTH OBTAINED AFTER 48 HOURS, INCUBATION TO CONTINUE FOR 3 DAYS. 07/01/16 01:45 Back Gram Stain - Final 07/01/16 01:45 Back Wound Culture - Final Yeast Like Organism Enterococcus Faecalis Staphylococcus Aureus Vr Ec Faecium Escherichia Coli Esbl Batt Packer 06/30/16 09:25 Blood - Peripheral Venous Blood Culture - Preliminary NO GROWTH OBTAINED AFTER 96 HOURS, INCUBATION TO CONTINUE FOR 1 DAYS. 06/30/16 09:25 Blood - Peripheral Venous Blood Culture - Preliminary NO GROWTH OBTAINED AFTER 96 HOURS, INCUBATION TO CONTINUE FOR 1 DAYS. 07/02/16 19:00 Stool Clostridium difficile Antigen (JAKY) - Final 07/02/16 19:00 Stool Clostridium difficile Toxin Assay - Final 06/30/16 00:49 Urine - Urine Gonzales Urine Culture - Final Escherichia Coli Esbl Batt Packer Code(s): A41.9 - SEPSIS, UNSPECIFIED ORGANISM R65.21 - SEVERE SEPSIS WITH SEPTIC SHOCK (2) UTI (urinary tract infection) Code(s): N39.0 - URINARY TRACT INFECTION, SITE NOT SPECIFIED Qualifiers: Qualified Code(s): N30.00 - Acute cystitis without hematuria (3) Fever Code(s): R50.9 - FEVER, UNSPECIFIED (4) Pneumonia Assessment/Plan: F/U CXR NOTED-- PNA ABX RPT CXR NOTED--IMPROVED Code(s): J18.9 - PNEUMONIA, UNSPECIFIED ORGANISM Qualifiers: Qualified Code(s): J18.1 - Lobar pneumonia, unspecified organism (5) CKD (chronic kidney disease) Assessment/Plan: MONITOR IMPROVING Laboratory Tests 07/01/16 07/05/16 01:45 05:25 Creatinine 2.2 H 0.5 L D Code(s): N18.9 - CHRONIC KIDNEY DISEASE, UNSPECIFIED (6) S/P bilateral below knee amputation Assessment/Plan: MONITOR Code(s): Z89.512 - ACQUIRED ABSENCE OF LEFT LEG BELOW KNEE Z89.511 - ACQUIRED ABSENCE OF RIGHT LEG BELOW KNEE (7) Decubitus ulcer Assessment/Plan: FOR DEBRIDEMENT IN AM Code(s): L89.90 - PRESSURE ULCER OF UNSPECIFIED SITE, UNSPECIFIED STAGE (8) Anemia Assessment/Plan: MONITOR S/P TRANSFUSION Code(s): D64.9 - ANEMIA, UNSPECIFIED (9) Diabetes Assessment/Plan: MONITOR B/S ENDO CONSULT SS/ LEVEMIR ON HOLD Code(s): E11.9 - TYPE 2 DIABETES MELLITUS WITHOUT COMPLICATIONS (10) DVT, bilateral lower limbs Assessment/Plan: ON HEPARIN DRIP--CHANGE TO LOVENOX Code(s): I82.403 - ACUTE EMBOLISM AND THOMBOS UNSP DEEP VEINS OF LOW EXTRM, BI Assessment/Plan TACHYCARDIA IVF INCREASE LOPRESSOR 50 BID TFT CARDIO
[2016-07-07] MEDS ORDERED: METOPROLOL TARTRATE 5 MG/5 ML VIAL IVPUSH ONE (09:00)
[2016-07-07] MEDS ORDERED: METOPROLOL TARTRATE 5 MG/5 ML VIAL ONE (09:55)
[2016-07-07] MEDS ORDERED: PT OWN MED DRAWER 7, Y5N ONE ×4 (09:55→22:11)
[2016-07-07] MEDS: D5-1/2NS+20 MEQ KCL - 1,000 ML IV SCH (09:59)
[2016-07-07] MEDS: METOPROLOL TARTRATE 50 MG TABLET (FP) PO SCH ×2 (10:00→22:15)
[2016-07-07] MEDS: ZINC SULFATE 220 MG CAPSULE (FP) NGT SCH (10:00)
[2016-07-07] MEDS: ENOXAPARIN NA (PORCINE) 60 MG/0.6 ML DISP.SYRIN SQ SCH (10:00)
[2016-07-07] MEDS: OLANZapine 5 MG TABLET PO SCH ×2 (10:01→22:16)
[2016-07-07] MEDS: SODIUM BICARBONATE 650 MG TABLET PO SCH ×2 (10:01→22:13)
[2016-07-07] MEDS: COLLAGENASE CLOSTRIDIUM HIST. 30 GRAMS TUBE TP SCH (10:04)
[2016-07-07 10:23] LABS: FREE T4 1.14 ng/dl (0.76-1.46); THYROID STIMULATING HORMONE 1.57 uIU/ml (0.358-3.74); TROPONIN I 0.02 ng/ml (0.00-0.05)
--- NOTE | 2016-07-07 11:17 | CON.CARD ---
Consult Consult Specialty:: Cardiology Referred by:: Dr Garcia Reason for Consultation:: tachycardia - History of Present Illness Chief Complaint: tachycardia. unable to give hx. History of Present Illness: 80F OMS, NHR, HTN, DM, CKD, GIANNI, GERD, CVA bilateral BKA, COPD admitted 06/30/16 fever sepsis with shock due to UTI and infected sacral decubitus ulcer. Was on pressors but now tapered off. Getting broad spectrum abx. Underwent debridement. Also found with bilateral DVT. On lovenox. Now held pending further debridement. 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, Dementia Cardio/Vascular: Yes: CHF, HTN, Hyperlipdemia Pulmonary: Yes: COPD Gastrointestinal: Yes: GERD Renal/: Yes: Renal Inusuff Endocrine: Yes: Diabetes Mellitus - Alcohol/Substance Use Hx Alcohol Use: No - Smoking History Smoking history: Never smoked Have you smoked in the past 12 months: No Aproximately how many cigarettes per day: 0 - Social History Usual Living Arrangement: [facility] History of Recent Travel: No Home Medications - Allergies Allergies/Adverse Reactions: Allergies Allergy/AdvReac Type Severity Reaction Status Date / Time No Known Drug Allergies Allergy Verified 06/29/16 21:53 - Home Medications Home Medications: Ambulatory Orders Ascorbate Calcium [Vitamin C] 500 mg PO TID 03/24/16 Escitalopram Oxalate [Lexapro -] 10 mg PO DAILY 03/24/16 Metoprolol Succinate [Toprol XL -] 25 mg PO DAILY 03/24/16 Mirtazapine [Remeron -] 30 mg PO DAILY 03/24/16 Olanzapine [Zyprexa] 7.5 mg PO DAILY 03/24/16 Omeprazole 20 mg PO DAILY 03/24/16 Sennosides [Senna] 17.2 mg PO HS 03/24/16 Simvastatin 20 mg PO DAILY 03/24/16 Tamsulosin HCl [Flomax -] 0.8 mg PO DAILY 03/24/16 Vit B Cmplx 3/FA/Vit C/Biotin [Nephro-Rafael Rx Tablet] 1 each PO DAILY 03/24/16 Albuterol 2.5/Ipratropium 0.5 [Duoneb -] 1 amp NEB Q6H PRN #0 amp 04/20/16 Amino Acids/Protein Hydrolys [Prostat Sugar-Free Packet -] 30 ml PO BID@0800, 1730 packet 04/20/16 FENTANYL 12mcg PATCH [DURAGESIC 12mcg PATCH -] 1 patch TD Q72H patch.td72 MDD 1 04/20/16 Insulin Sliding Scale [Novolog Vial Sliding Scale -] 1 vial SQ ACHS units 04/20 Levofloxacin [Levaquin -] 250 mg PO DAILY tablet 04/20/16 Oxycodone HCl [Roxicodone -] 5 mg PO BID PRN #0 tablet MDD 2 04/20/16 Sodium Bicarbonate - 650 mg PO BID tablet 04/20/16 Zinc Sulfate [Orazinc -] 220 mg PO DAILY capsule 04/20/16 Acetaminophen [Tylenol] 650 mg PO Q4H PRN 06/30/16 Collagenase Clostridium Hist. [Santyl -] 1 applic TP DAILY 06/30/16 Darbepoetin Joseph in Polysorbat [Aranesp] 25 mcg SQ TH 06/30/16 Ferrous Sulfate [Feosol] 325 mg PO TID 06/30/16 Insulin Glargine,Hum.rec.anlog [Lantus Solostar PEN (NF)] 7 units SQ HS Insulin Glargine,Hum.rec.anlog [Lantus Solostar PEN (NF)] 12 units SQ 0900 06/30 Menthol/Zinc Oxide [Calmoseptine Ointment] 0 gm TP QID 06/30/16 Potassium Phosphate,Monobasic [K-Phos Original] 500 mg PO DAILY 06/30/16 Prochlorperazine Maleate [Compazine] 5 mg PO BID 06/30/16 Review of Systems Unable to obtain ROS, reason: dementia Vital Signs: Vital Signs Temperature 99.6 F 07/07/16 10:00 Pulse Rate 90 07/07/16 10:00 Respiratory Rate 18 07/07/16 10:00 Blood Pressure 155/69 07/07/16 10:00 O2 Sat by Pulse Oximetry (%) 99 07/06/16 19:43 Constitutional: Yes: No Distress Eyes: Yes: WNL, Conjunctiva Clear, EOM Intact HENT: Yes: WNL, Atraumatic, Normocephalic Neck: Yes: WNL, Supple, Trachea Midline Respiratory: Yes: CTA Bilaterally Gastrointestinal: Yes: WNL, Normal Bowel Sounds Renal/: Yes: WNL Cardiovascular: Yes: Tachycardia JVD: No Carotid Bruit: No PMI: Non-Displaced Murmur: Yes: Systolic Murmur, Grade 2 Musculoskeletal: Yes: WNL Extremities: Yes: Amputation Neurological: Yes: Confusion - Other Data Labs, Other Data: CBC, BMP 07/07/16 05:25 07/07/16 05:25 INR, PTT INR 1.08 (0.82-1.09) 07/01/16 01:45 Troponin, BNP 07/07/16 07/07/16 05:25 05:25 Troponin I 0.02 Cancelled Troponin, BNP 07/07/16 07/07/16 05:25 05:25 Troponin I 0.02 Cancelled stachy, nssttw changes Echo: Report Reviewed Ejection Fraction %: LVEF > or = 40 % Imaging - Results Chest X-ray: Report Reviewed (RLL infiltrate, left atalectasis), Other EKG: Report Reviewed (nsr nssttw changes) Assessment/Plan Tachycardia on telemetry is all severe sinus tachycardia, due to DVT possible PE , sepsis, and metabolic stress of infection. This is a "noncardiac arrhythmia" the treatment of which is to control the noncardiac causes. Not in CHF. continue low dose beta leticia, avoid stimulants, continue abx. continue lovenox for dvt. will be appropriate candidate for novel anticoagulant when stable for dc and no further procedures needed. She has no cardiac contraindications to further debridement surgery. Medically optimized. She is at low to intermediate risk of periop events but the benefits of infection treatment outweigh the risks. Goals of care should be addressed as well for more involved issues. Will follow with you.
[2016-07-07] MEDS: ERTAPENEM SODIUM 1 GM in SODIUM CHLORIDE 50 ML IVPB SCH (11:43)
[2016-07-07] MEDS: PANTOPRAZOLE 20 MG TABLET (FP) PO SCH (11:44)
--- NOTE | 2016-07-07 12:10 | PN ---
Teaching Attending Note Name of Resident: Lorenzo Vang ATTENDING PHYSICIAN STATEMENT I saw and evaluated the patient. I reviewed the resident's note and discussed the case with the resident. I agree with the resident's findings and plan as documented. SUBJECTIVE: Pt seen and examined in the ICU. Remains somnolent but arousable. Low grade temps overnight. OBJECTIVE: Last Vital Signs Temp Pulse Resp BP Pulse Ox 99.6 F 90 18 155/69 99 07/07/16 10:00 07/07/16 10:00 07/07/16 10:00 07/07/16 10:00 07/06/16 19:43 Intake & Output 07/04/16 07/05/16 07/06/16 07/07/16 23:59 23:59 23:59 23:59 Intake Total 2486 2309 2474 Output Total 675 1250 2900 300 Balance 1811 1059 -426 -300 Weight 114 lb 4 oz 113 lb 8 oz 114 lb 10.246 oz 109 lb 5.588 oz Gen: somnolent but arousable Heart: RRR Lung: decreased breath sounds at the bases Abd: soft, nontender Ext: bilateral BKA CBC, BMP 07/07/16 05:25 07/07/16 05:25 Active Medications Acetaminophen (Ofirmev Injection -) 1,000 mg IVPB Q6H PRN Acetaminophen (Tylenol Suppository -) 650 mg [place] Q6H PRN PRN Reason: FEVER OR PAIN Albuterol Sulfate (Ventolin 0.083% Nebulizer Soln -) 1 amp NEB QIDR [facility] Last Admin: 07/07/16 07:31 Dose: 1 amp Amino Acids (Prosource No Carb Liquid Pkt) 30 ml NGT BID@0800,1730 [facility] Last Admin: 07/07/16 08:57 Dose: 30 ml Ascorbic Acid (Vitamin C Oral Solution -) 500 mg NGT TID [facility] Last Admin: 07/07/16 06:41 Dose: 500 mg Atorvastatin Calcium (Lipitor -) 10 mg NGT HS [facility] Last Admin: 07/06/16 22:22 Dose: 10 mg Collagenase (Santyl -) 1 applic TP DAILY [facility] Last Admin: 07/07/16 10:04 Dose: 1 applic Enoxaparin Sodium (Lovenox -) 50 mg SQ BID [facility] Last Admin: 07/07/16 10:00 Dose: 50 mg Ertapenem 1 gm/ Sodium (Chloride) 50 mls @ 50 mls/hr IVPB DAILY [facility] PRN Reason: Protocol Last Admin: 07/07/16 11:43 Dose: 50 mls/hr Potassium Chloride/Dextrose/Sod Cl (D5-1/2ns+20 Meq Kcl -) 1,000 mls @ 75 mls/ hr IV ASDIR [facility] Last Admin: 07/07/16 09:59 Dose: 75 mls/hr Ibuprofen (Caldolor Injection -) 400 mg IVPB Q6H PRN PRN Reason: FEVER Insulin Aspart (Novolog Vial Sliding Scale -) 1 vial SQ ACHS [facility] PRN Reason: Protocol Last Admin: 07/07/16 11:44 Dose: Not Given Ipratropium [place] (Atrovent 0.02% Nebulizer -) 1 amp NEB Q6HPO [facility] Last Admin: 07/07/16 07:31 Dose: 1 amp Metoprolol Tartrate (Lopressor -) 50 mg PO BID [facility] Last Admin: 07/07/16 10:00 Dose: 50 mg Mirtazapine (Remeron -) 30 mg PO HS [facility] Last Admin: 07/06/16 22:25 Dose: 30 mg Olanzapine (Zyprexa -) 5 mg PO BID [facility] Last Admin: 07/07/16 10:01 Dose: 5 mg Pantoprazole Sodium (Protonix -) 20 mg PO DAILY [facility] Last Admin: 07/07/16 11:44 Dose: 20 mg Senna (Senna -) 1 tab PO [facility] Last Admin: 07/06/16 22:24 Dose: 1 tab Sodium Bicarbonate (Sodium Bicarbonate -) 650 mg PO BID [facility] Last Admin: 07/07/16 10:01 Dose: 650 mg Tamsulosin HCl (Flomax -) 0.4 mg PO DAILY@0830 [facility] Last Admin: 07/07/16 08:57 Dose: 0.4 mg Zinc Sulfate (Orazinc -) 220 mg NGT DAILY [facility] Last Admin: 07/07/16 10:00 Dose: 220 mg ASSESSMENT AND PLAN: Acute Hypoxic Respiratory Failure UTI Sacral Decubitus Ulcer Infection Septic Shock resolving Lactic Acidosis improved Acute Kidney Injury resolving Bilateral DVTs HTN DM Dementia - continue antibiotics - for sacral ulcer debridement tomorrow - continue free water replacement - monitor urine output, creatinine - glucose control - BiPAP as needed to assist in work of breathing - titrate FiO2 to keep SpO2 >90% - aspiration precautions - DVT/GI prophylaxis - can monitor on telemetry critical care time spent in reviewing chart, evaluating patient and formulating plan 35 min
--- NOTE | 2016-07-07 12:51 | PN ---
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 Not accepting a lot (baseline) with limited mouth opening for tsp feeding. Selected Entries 07/07/16 10:33 Breakfast 25% Reviewed with staff to mix puree with liquid (ensure or milk/soup), to sip food via cup, for increased PO acceptance. Encourage ensure compact
--- NOTE | 2016-07-07 13:25 | PN ---
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 (short form) - Note 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: Renal Follow up for Hypernatremia Pt seen and examined in the ICU on NC O2 BP stable good urine output NGT discontinued yesterday on 03/29 NS Vital Signs Temperature 99.6 F 07/07/16 10:00 Pulse Rate 90 07/07/16 10:00 Respiratory Rate 18 07/07/16 10:00 Blood Pressure 155/69 07/07/16 10:00 O2 Sat by Pulse Oximetry (%) 99 07/07/16 09:00 Intake & Output 07/04/16 07/05/16 07/06/16 07/07/16 23:59 23:59 23:59 23:59 Intake Total 2486 2309 2474 Output Total 675 1250 2900 300 Balance 1811 1059 -426 -300 Weight 114 lb 4 oz 113 lb 8 oz 114 lb 10.246 oz 109 lb 5.588 oz Gen: on NC O2 CVS: RRR, No M/R Lungs: Dec BS, no rales Abd: soft NT/ND Ext: s/p B/L BKA, trace sacral edema : conley in place with yellow urine CBC, BMP 07/07/16 05:25 07/07/16 05:25 Current Medications Acetaminophen (Ofirmev Injection -) 1,000 mg IVPB Q6H PRN Acetaminophen (Tylenol Suppository -) 650 mg [place] Q6H PRN PRN Reason: FEVER OR PAIN Albuterol Sulfate (Ventolin 0.083% Nebulizer Soln -) 1 amp NEB QIDR [facility] Last Admin: 07/07/16 12:51 Dose: 1 amp Amino Acids (Prosource No Carb Liquid Pkt) 30 ml NGT BID@0800,1730 [facility] Last Admin: 07/07/16 08:57 Dose: 30 ml Ascorbic Acid (Vitamin C Oral Solution -) 500 mg NGT TID [facility] Last Admin: 07/07/16 06:41 Dose: 500 mg Atorvastatin Calcium (Lipitor -) 10 mg NGT HS [facility] Last Admin: 07/06/16 22:22 Dose: 10 mg Collagenase (Santyl -) 1 applic TP DAILY [facility] Last Admin: 07/07/16 10:04 Dose: 1 applic Enoxaparin Sodium (Lovenox -) 50 mg SQ BID [facility] Last Admin: 07/07/16 10:00 Dose: 50 mg Ertapenem 1 gm/ Sodium (Chloride) 50 mls @ 50 mls/hr IVPB DAILY [facility] PRN Reason: Protocol Last Admin: 07/07/16 11:43 Dose: 50 mls/hr Potassium Chloride/Dextrose/Sod Cl (D5-1/2ns+20 Meq Kcl -) 1,000 mls @ 75 mls/ hr IV ASDIR [facility] Last Admin: 07/07/16 09:59 Dose: 75 mls/hr Ibuprofen (Caldolor Injection -) 400 mg IVPB Q6H PRN PRN Reason: FEVER Insulin Aspart (Novolog Vial Sliding Scale -) 1 vial SQ ACHS [facility] PRN Reason: Protocol Last Admin: 07/07/16 11:44 Dose: Not Given Ipratropium [place] (Atrovent 0.02% Nebulizer -) 1 amp NEB Q6HPO [facility] Last Admin: 07/07/16 12:51 Dose: 1 amp Metoprolol Tartrate (Lopressor -) 50 mg PO BID [facility] Last Admin: 07/07/16 10:00 Dose: 50 mg Mirtazapine (Remeron -) 30 mg PO [facility] Last Admin: 07/06/16 22:25 Dose: 30 mg Olanzapine (Zyprexa -) 5 mg PO BID [facility] Last Admin: 07/07/16 10:01 Dose: 5 mg Pantoprazole Sodium (Protonix -) 20 mg PO DAILY [facility] Last Admin: 07/07/16 11:44 Dose: 20 mg Senna (Senna -) 1 tab PO [facility] Last Admin: 07/06/16 22:24 Dose: 1 tab Sodium Bicarbonate (Sodium Bicarbonate -) 650 mg PO BID [facility] Last Admin: 07/07/16 10:01 Dose: 650 mg Tamsulosin HCl (Flomax -) 0.4 mg PO DAILY@0830 [facility] Last Admin: 07/07/16 08:57 Dose: 0.4 mg Zinc Sulfate (Orazinc -) 220 mg NGT DAILY [facility] Last Admin: 07/07/16 10:00 Dose: 220 mg A/P 80 year old woman with PMhx of Multiple GIANNI's, Hypernatremia, Hypertension, DM, HLD, GERD who presented from [place] with hypoxia and found to have Septic shock from UTI/Infected Sacral Decubitis Ulcers with GIANNI with Cr of 2.2 and worsening hypernatremia. #Hypernatremia Na uptrended to 150 (off Free water after discontinuation of NGT) on 03/29 Ns now oral fluid intake as tolerated #Septic Shock/UTI/Infected Sacral Decubitis Ulcers Continue Care as per ICU team Pt off pressers Continue supplemental O2 #Anemia Requiring Transfusion Trend CBC Transfuse as per ICU protocol #Hypophosphatemia no phos level recorded today will add to am labs supplement as needed Thank you Vahid Manzano DO
[2016-07-07 14:11] LABS: PHOSPHOROUS 3.2 mg/dL (2.5-4.9)
--- NOTE | 2016-07-07 14:15 | EKG ---
Test Reason : Blood Pressure : / mmHG Vent. Rate : 118 BPM Atrial Rate : 118 BPM P-R Int : 118 ms QRS Dur : 088 ms QT Int : 342 ms P-R-T Axes : 043 -18 090 degrees QTc Int : 479 ms SINUS TACHYCARDIA OTHERWISE NORMAL ECG WHEN COMPARED WITH ECG OF 02-JUL-2016 13:49, PREMATURE ATRIAL COMPLEXES ARE NO LONGER PRESENT Confirmed by CHA DEL RIO MD ([id number]) on 07/07/2016 2:14:53 PM Referred By: EDIS FISHER Confirmed By:CHA DEL RIO MD
[2016-07-07] MEDS ORDERED: MIRTAZAPINE 15 MG TABLET (FP) ONE (22:10)
[2016-07-07] MEDS: SENNOSIDES 8.6MG TABLET (FP) PO SCH (22:13)
[2016-07-07] MEDS: ATORVASTATIN CA 10 MG TABLET (FP) NGT SCH (22:15)
[2016-07-07] MEDS: MIRTAZAPINE 30 MG TABLET (FP) PO SCH (22:17)
[2016-07-08] MEDS: IPRATROPIUM BR 0.02% 0.5 MG/2.5 ML VIAL.NEB. NEB SCH ×5 (00:06→23:38)
[2016-07-08] MEDS: ALBUTEROL SO4 0.083% IH SOL 2.5 MG/3 ML VIAL.NEB. NEB SCH ×5 (00:06→23:39)
[2016-07-08] MEDS: ACETAMINOPHEN 650 MG SUPP.RECT PR PRN ×2 (02:42→11:15)
[2016-07-08] MEDS: ASCORBIC ACID 500 MG/5 ML UNIT DOSE CUP NGT SCH ×3 (06:07→23:04)
[2016-07-08] MEDS: INSULIN SLIDING SCALE (NOVOLOG) 1 VIAL SQ SCH ×5 (06:18→23:03)
[2016-07-08 07:57] LABS: MCHC 32.8 g/dl (32.0-36.0); MEAN CELL VOLUME 94.6 fl (80-96); MEAN PLT VOLUME 8.9 fl (7.5-11.1); RDW 15.8 % (11.6-15.6)
--- NOTE | 2016-07-08 08:18 | PN ---
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, Physician History of Present Illness: FOR DEBRIDEMENT - Current Medication List Current Medications: Active Medications Acetaminophen (Ofirmev Injection -) 1,000 mg IVPB Q6H PRN Acetaminophen (Tylenol Suppository -) 650 mg [place] Q6H PRN PRN Reason: FEVER OR PAIN Last Admin: 07/08/16 02:42 Dose: 650 mg Albuterol Sulfate (Ventolin 0.083% Nebulizer Soln -) 1 amp NEB QIDR [facility] Last Admin: 07/08/16 07:07 Dose: 1 amp Amino Acids (Prosource No Carb Liquid Pkt) 30 ml NGT BID@0800,1730 [facility] Last Admin: 07/07/16 16:35 Dose: 30 ml Ascorbic Acid (Vitamin C Oral Solution -) 500 mg NGT TID [facility] Last Admin: 07/08/16 06:07 Dose: Not Given Atorvastatin Calcium (Lipitor -) 10 mg NGT HS [facility] Last Admin: 07/07/16 22:15 Dose: 10 mg Collagenase (Santyl -) 1 applic TP DAILY [facility] Last Admin: 07/07/16 10:04 Dose: 1 applic Ertapenem 1 gm/ Sodium (Chloride) 50 mls @ 50 mls/hr IVPB DAILY [facility] PRN Reason: Protocol Last Admin: 07/07/16 11:43 Dose: 50 mls/hr Potassium Chloride/Dextrose/Sod Cl (D5-1/2ns+20 Meq Kcl -) 1,000 mls @ 75 mls/ hr IV ASDIR [facility] Last Admin: 07/07/16 09:59 Dose: 75 mls/hr Ibuprofen (Caldolor Injection -) 400 mg IVPB Q6H PRN PRN Reason: FEVER Insulin Aspart (Novolog Vial Sliding Scale -) 1 vial SQ ACHS [facility] PRN Reason: Protocol Last Admin: 07/08/16 06:18 Dose: Not Given Ipratropium [place] (Atrovent 0.02% Nebulizer -) 1 amp NEB Q6HPO [facility] Last Admin: 07/08/16 07:07 Dose: 1 amp Metoprolol Tartrate (Lopressor -) 50 mg PO BID [facility] Last Admin: 07/07/16 22:15 Dose: 50 mg Mirtazapine (Remeron -) 30 mg PO HS [facility] Last Admin: 07/07/16 22:17 Dose: 30 mg Olanzapine (Zyprexa -) 5 mg PO BID [facility] Last Admin: 07/07/16 22:16 Dose: 5 mg Pantoprazole Sodium (Protonix -) 20 mg PO DAILY [facility] Last Admin: 07/07/16 11:44 Dose: 20 mg Senna (Senna -) 1 tab PO HS [facility] Last Admin: 07/07/16 22:13 Dose: 1 tab Sodium Bicarbonate (Sodium Bicarbonate -) 650 mg PO BID [facility] Last Admin: 07/07/16 22:13 Dose: 650 mg Tamsulosin HCl (Flomax -) 0.4 mg PO DAILY@0830 [facility] Last Admin: 07/07/16 08:57 Dose: 0.4 mg Zinc Sulfate (Orazinc -) 220 mg NGT DAILY [facility] Last Admin: 07/07/16 10:00 Dose: 220 mg - Objective Vital Signs: Vital Signs Temperature 98.8 F 07/08/16 05:00 Pulse Rate 88 07/08/16 05:00 Respiratory Rate 19 07/08/16 05:00 Blood Pressure 152/78 07/08/16 05:00 O2 Sat by Pulse Oximetry (%) 96 07/08/16 06:00 Cardiovascular: Yes: Murmur, S1, S2 Respiratory: Yes: Regular, CTA Bilaterally Gastrointestinal: Yes: Normal Bowel Sounds, Soft Extremities: Yes: Amputation Labs: INR, PTT INR 1.08 (0.82-1.09) 07/01/16 01:45 Problem List - Problems (1) Septic shock Code(s): A41.9 - SEPSIS, UNSPECIFIED ORGANISM R65.21 - SEVERE SEPSIS WITH SEPTIC SHOCK (2) UTI (urinary tract infection) Code(s): N39.0 - URINARY TRACT INFECTION, SITE NOT SPECIFIED Qualifiers: Qualified Code(s): N30.00 - Acute cystitis without hematuria (3) Fever Code(s): R50.9 - FEVER, UNSPECIFIED (4) Pneumonia Code(s): J18.9 - PNEUMONIA, UNSPECIFIED ORGANISM Qualifiers: Qualified Code(s): J18.1 - Lobar pneumonia, unspecified organism (5) CKD (chronic kidney disease) Code(s): N18.9 - CHRONIC KIDNEY DISEASE, UNSPECIFIED (6) S/P bilateral below knee amputation Assessment/Plan: MONITOR Code(s): Z89.512 - ACQUIRED ABSENCE OF LEFT LEG BELOW KNEE Z89.511 - ACQUIRED ABSENCE OF RIGHT LEG BELOW KNEE (7) Decubitus ulcer Assessment/Plan: FOR DEBRIDEMENT TODAY ON ABX Code(s): L89.90 - PRESSURE ULCER OF UNSPECIFIED SITE, UNSPECIFIED STAGE (8) Anemia Assessment/Plan: MONITOR S/P TRANSFUSION Code(s): D64.9 - ANEMIA, UNSPECIFIED (9) Diabetes Assessment/Plan: MONITOR B/S ENDO CONSULT SS/ LEVEMIR ON HOLD Code(s): E11.9 - TYPE 2 DIABETES MELLITUS WITHOUT COMPLICATIONS (10) DVT, bilateral lower limbs Assessment/Plan: ON HEPARIN DRIP--CHANGE TO LOVENOX Code(s): I82.403 - ACUTE EMBOLISM AND THOMBOS UNSP DEEP VEINS OF LOW EXTRM, BI
[2016-07-08 08:29] LABS: CALCIUM 7.8 mg/dL (8.5-10.1); CREATININE 0.7 mg/dL (0.55-1.02)
[2016-07-08] MEDS: TAMSULOSIN HCL 0.4 MG CAP.ER.24H (FP) PO SCH ×2 (08:36→09:19)
[2016-07-08] MEDS: AMINO ACIDS/PROTEIN HYDROLYS 30 ML LIQUID.PKT NGT SCH ×3 (08:36→18:10)
[2016-07-08 09:06] LABS: MAGNESIUM 2.1 mg/dL (1.8-2.4)
[2016-07-08] MEDS: ZINC SULFATE 220 MG CAPSULE (FP) NGT SCH (09:20)
[2016-07-08] MEDS: SODIUM BICARBONATE 650 MG TABLET PO SCH ×2 (09:20→23:04)
[2016-07-08] MEDS: PANTOPRAZOLE 20 MG TABLET (FP) PO SCH (09:21)
[2016-07-08] MEDS: METOPROLOL TARTRATE 50 MG TABLET (FP) PO SCH ×2 (09:21→23:03)
[2016-07-08] MEDS: OLANZapine 5 MG TABLET PO SCH ×2 (09:21→23:05)
[2016-07-08] MEDS: D5-1/2NS+20 MEQ KCL - 1,000 ML IV SCH (10:29)
[2016-07-08] MEDS: ERTAPENEM SODIUM 1 GM in SODIUM CHLORIDE 50 ML IVPB SCH (10:29)
--- NOTE | 2016-07-08 10:32 | PN ---
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, Physician Chief Complaint: comfortable History of Present Illness: 80F OMS, NHR, HTN, DM, CKD, GIANNI, GERD, CVA bilateral BKA, COPD admitted 06/30/16 fever sepsis with shock due to UTI and infected sacral decubitus ulcer. Was on pressors but now tapered off. Getting broad spectrum abx. Underwent debridement. Also found with bilateral DVT. On lovenox. Now held pending further debridement. Echocardiogram 07/01/16 normal Ef moderate aortic sclerosis. Telemetry 07/07/16 brief NSVT. - Current Medication List Current Medications: Active Medications Acetaminophen (Ofirmev Injection -) 1,000 mg IVPB Q6H PRN Acetaminophen (Tylenol Suppository -) 650 mg [place] Q6H PRN PRN Reason: FEVER OR PAIN Last Admin: 07/08/16 02:42 Dose: 650 mg Albuterol Sulfate (Ventolin 0.083% Nebulizer Soln -) [address] [facility] Last Admin: 07/08/16 07:07 Dose: 1 amp Amino Acids (Prosource No Carb Liquid Pkt) 30 ml NGT BID@0800,1730 [facility] Last Admin: 07/08/16 09:25 Dose: 30 ml Ascorbic Acid (Vitamin C Oral Solution -) [address] [facility] Last Admin: 07/08/16 06:07 Dose: Not Given Atorvastatin Calcium (Lipitor -) [address] [facility] Last Admin: 07/07/16 22:15 Dose: 10 mg Collagenase (Santyl -) [address] [facility] Last Admin: 07/07/16 10:04 Dose: 1 applic Ertapenem 1 gm/ Sodium (Chloride) 50 mls @ 50 mls/hr IVPB DAILY [facility] PRN Reason: Protocol Last Admin: 07/07/16 11:43 Dose: 50 mls/hr Potassium Chloride/Dextrose/Sod Cl (D5-1/2ns+20 Meq Kcl -) 1,000 mls @ 75 mls/ hr IV ASDIR [facility] Last Admin: 07/07/16 09:59 Dose: 75 mls/hr Ibuprofen (Caldolor Injection -) 400 mg IVPB Q6H PRN PRN Reason: FEVER Insulin Aspart (Novolog Vial Sliding Scale -) [address] [facility] PRN Reason: Protocol Last Admin: 07/08/16 06:18 Dose: Not Given Ipratropium [place] (Atrovent 0.02% Nebulizer -) [address] [facility] Last Admin: 07/08/16 07:07 Dose: 1 amp Metoprolol Tartrate (Lopressor -) [address] [facility] Last Admin: 07/08/16 09:21 Dose: 50 mg Mirtazapine (Remeron -) [address] [facility] Last Admin: 07/07/16 22:17 Dose: 30 mg Olanzapine (Zyprexa -) [address] [facility] Last Admin: 07/08/16 09:21 Dose: 5 mg Pantoprazole Sodium (Protonix -) [address] [facility] Last Admin: 07/08/16 09:21 Dose: 20 mg Potassium Phos/Sodium Phos (Phos-Nak Packet -) [address] [facility] Stop: 07/10/16 06:01 Senna (Senna -) [address] [facility] Last Admin: 07/07/16 22:13 Dose: 1 tab Sodium Bicarbonate (Sodium Bicarbonate -) [address] [facility] Last Admin: 07/08/16 09:20 Dose: 650 mg Tamsulosin HCl (Flomax -) 0.4 mg PO DAILY@0830 [facility] Last Admin: 07/08/16 09:19 Dose: 0.4 mg Zinc Sulfate (Orazinc -) [address] [facility] Last Admin: 07/08/16 09:20 Dose: 220 mg - Objective Vital Signs: Vital Signs Temperature 98.8 F 07/08/16 05:00 Pulse Rate 88 07/08/16 05:00 Respiratory Rate 19 07/08/16 05:00 Blood Pressure 152/78 07/08/16 05:00 O2 Sat by Pulse Oximetry (%) 96 07/08/16 06:00 Constitutional: Yes: No Distress Eyes: Yes: WNL HENT: Yes: WNL Neck: Yes: WNL Cardiovascular: Yes: WNL Respiratory: Yes: WNL Gastrointestinal: Yes: WNL Extremities: Yes: Amputation Edema: No Labs: CBC, BMP 07/08/16 05:35 07/08/16 05:35 INR, PTT INR 1.08 (0.82-1.09) 07/01/16 01:45 Assessment/Plan Tachycardia on telemetry is severe sinus tachycardia, due to DVT possible PE, sepsis, and metabolic stress of infection. This is a "noncardiac arrhythmia" the treatment of which is to control the noncardiac causes. Not in CHF. continue low dose beta leticia, avoid stimulants, continue abx. continue lovenox for dvt. will be appropriate candidate for novel anticoagulant when stable for dc and no further procedures needed. She has no cardiac contraindications to further debridement surgery. Medically optimized. She is at low to intermediate risk of periop events but the benefits of infection treatment outweigh the risks. No treatment is needed for NSVT in the setting of sepsis and normal EF on echocardiogram. Goals of care should be addressed as well for more involved issues. Will follow with you.
[2016-07-08] MEDS: COLLAGENASE CLOSTRIDIUM HIST. 30 GRAMS TUBE TP SCH (11:00)
--- NOTE | 2016-07-08 11:27 | PN ---
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 Tolerating PO intake. Limited nutritional intake, which is pt's baseline, secondary to dementia. Palliative care nurse on case. Reviewed with staff to mix puree with liquid (ensure or milk/soup), to sip food via cup, for increased PO acceptance. Encourage ensure compact
--- NOTE | 2016-07-08 12:38 | PN ---
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 (short form) - Note 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: Renal Follow up for Hypernatremia Pt seen and examined at the bedside awake and alert no overnight events as per nurse pt with cough Vital Signs Temperature 101.6 F H 07/08/16 11:15 Pulse Rate 74 07/08/16 11:19 Respiratory Rate 20 07/08/16 09:00 Blood Pressure 150/75 07/08/16 09:00 O2 Sat by Pulse Oximetry (%) 92 L 07/08/16 11:19 Intake & Output 07/05/16 07/06/16 07/07/16 07/08/16 23:59 23:59 23:59 23:59 Intake Total 2309 2474 975 500 Output Total 1250 2900 750 100 Balance 1059 -426 225 400 Weight 113 lb 8 oz 114 lb 10.246 oz 109 lb 5.588 oz Gen: on NC O2 CVS: RRR, No M/R Lungs: Dec BS, no rales Abd: soft NT/ND Ext: s/p B/L BKA, trace sacral edema : conley in place with yellow urine CBC, BMP 07/08/16 05:35 07/08/16 05:35 Current Medications Acetaminophen (Ofirmev Injection -) 1,000 mg IVPB Q6H PRN Acetaminophen (Tylenol Suppository -) 650 mg [place] Q6H PRN PRN Reason: FEVER OR PAIN Last Admin: 07/08/16 11:15 Dose: 650 mg Albuterol Sulfate (Ventolin 0.083% Nebulizer Soln -) 1 amp NEB QIDR [facility] Last Admin: 07/08/16 11:20 Dose: 1 amp Amino Acids (Prosource No Carb Liquid Pkt) 30 ml NGT BID@0800,1730 [facility] Last Admin: 07/08/16 09:25 Dose: 30 ml Ascorbic Acid (Vitamin C Oral Solution -) 500 mg NGT TID [facility] Last Admin: 07/08/16 06:07 Dose: Not Given Atorvastatin Calcium (Lipitor -) 10 mg NGT HS [facility] Last Admin: 07/07/16 22:15 Dose: 10 mg Collagenase (Santyl -) 1 applic TP DAILY [facility] Last Admin: 07/07/16 10:04 Dose: 1 applic Ertapenem 1 gm/ Sodium (Chloride) 50 mls @ 50 mls/hr IVPB DAILY [facility] PRN Reason: Protocol Last Admin: 07/08/16 10:29 Dose: 50 mls/hr Potassium Chloride/Dextrose/Sod Cl (D5-1/2ns+20 Meq Kcl -) 1,000 mls @ 75 mls/ hr IV ASDIR [facility] Last Admin: 07/08/16 10:29 Dose: 75 mls/hr Ibuprofen (Caldolor Injection -) 400 mg IVPB Q6H PRN PRN Reason: FEVER Insulin Aspart (Novolog Vial Sliding Scale -) 1 vial SQ ACHS [facility] PRN Reason: Protocol Last Admin: 07/08/16 11:28 Dose: 5 units Ipratropium [place] (Atrovent 0.02% Nebulizer -) 1 amp NEB Q6HPO [facility] Last Admin: 07/08/16 11:19 Dose: 1 amp Metoprolol Tartrate (Lopressor -) 50 mg PO BID [facility] Last Admin: 07/08/16 09:21 Dose: 50 mg Mirtazapine (Remeron -) 30 mg PO HS [facility] Last Admin: 07/07/16 22:17 Dose: 30 mg Olanzapine (Zyprexa -) 5 mg PO BID [facility] Last Admin: 07/08/16 09:21 Dose: 5 mg Pantoprazole Sodium (Protonix -) 20 mg PO DAILY [facility] Last Admin: 07/08/16 09:21 Dose: 20 mg Potassium Phos/Sodium Phos (Phos-Nak Packet -) 1 packet PO TID [facility] Stop: 07/10/16 06:01 Senna (Senna -) 1 tab PO HS [facility] Last Admin: 07/07/16 22:13 Dose: 1 tab Sodium Bicarbonate (Sodium Bicarbonate -) 650 mg PO BID [facility] Last Admin: 07/08/16 09:20 Dose: 650 mg Tamsulosin HCl (Flomax -) 0.4 mg PO DAILY@0830 [facility] Last Admin: 07/08/16 09:19 Dose: 0.4 mg Zinc Sulfate (Orazinc -) 220 mg NGT DAILY [facility] Last Admin: 07/08/16 09:20 Dose: 220 mg A/P 80 year old woman with PMhx of Multiple GIANNI's, Hypernatremia, Hypertension, DM, HLD, GERD who presented from [place] with hypoxia and found to have Septic shock from UTI/Infected Sacral Decubitis Ulcers with GIANNI with Cr of 2.2 and worsening hypernatremia. #Hypernatremia serum na improved on 03/29 NS if any signs of volume overload (i.e hypovixa, edmea) may need to down titrate fluids oral fluid intake as tolerated #Septic Shock/UTI/Infected Sacral Decubitis Ulcers continue Ertapenum as per ID for debridement of decubitis ulcer today #Anemia Requiring Transfusion trend CBC transfuse as needed #Hypophosphatemia PO Neutra phos x 6 trend daily phos Thank you Vahid Manzano DO
[2016-07-08 13:23] LABS: PLATELET COUNT 314 K/MM3 (134-434); PLATELET ESTIMATE ADEQUATE (NORMAL)
[2016-07-08] MEDS ORDERED: NAPH,MB-DB/K PH,MBDB POWDER PACKET PO SCH (14:00)
--- NOTE | 2016-07-08 14:30 | PN ---
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 (short form) - Note 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: PULMONARY Somnolent but arousable. Febrile. Last Vital Signs Temp Pulse Resp BP Pulse Ox 98.6 F 81 20 139/68 92 L 07/08/16 14:10 07/08/16 14:10 07/08/16 14:10 07/08/16 14:10 07/08/16 11:19 Gen: somnolent Heart: RRR Lung: scattered rhonchi Abd: soft, nontender Ext: bilateral BKA CBC, BMP 07/08/16 05:35 07/08/16 05:35 Active Medications Acetaminophen (Ofirmev Injection -) 1,000 mg IVPB Q6H PRN Acetaminophen (Tylenol Suppository -) 650 mg [place] Q6H PRN PRN Reason: FEVER OR PAIN Last Admin: 07/08/16 11:15 Dose: 650 mg Albuterol Sulfate (Ventolin 0.083% Nebulizer Soln -) 1 amp NEB QIDR [facility] Last Admin: 07/08/16 11:20 Dose: 1 amp Amino Acids (Prosource No Carb Liquid Pkt) 30 ml NGT BID@0800,1730 [facility] Last Admin: 07/08/16 09:25 Dose: 30 ml Ascorbic Acid (Vitamin C Oral Solution -) 500 mg NGT TID [facility] Last Admin: 07/08/16 06:07 Dose: Not Given Atorvastatin Calcium (Lipitor -) 10 mg NGT HS [facility] Last Admin: 07/07/16 22:15 Dose: 10 mg Collagenase (Santyl -) 1 applic TP DAILY [facility] Last Admin: 07/07/16 10:04 Dose: 1 applic Ertapenem 1 gm/ Sodium (Chloride) 50 mls @ 50 mls/hr IVPB DAILY [facility] PRN Reason: Protocol Last Admin: 07/08/16 10:29 Dose: 50 mls/hr Potassium Chloride/Dextrose/Sod Cl (D5-1/2ns+20 Meq Kcl -) 1,000 mls @ 75 mls/ hr IV ASDIR [facility] Last Admin: 07/08/16 10:29 Dose: 75 mls/hr Ibuprofen (Caldolor Injection -) 400 mg IVPB Q6H PRN PRN Reason: FEVER Insulin Aspart (Novolog Vial Sliding Scale -) 1 vial SQ ACHS [facility] PRN Reason: Protocol Last Admin: 07/08/16 11:28 Dose: 5 units Ipratropium [place] (Atrovent 0.02% Nebulizer -) 1 amp NEB Q6HPO [facility] Last Admin: 07/08/16 11:19 Dose: 1 amp Metoprolol Tartrate (Lopressor -) 50 mg PO BID [facility] Last Admin: 07/08/16 09:21 Dose: 50 mg Mirtazapine (Remeron -) 30 mg PO HS [facility] Last Admin: 07/07/16 22:17 Dose: 30 mg Olanzapine (Zyprexa -) 5 mg PO BID [facility] Last Admin: 07/08/16 09:21 Dose: 5 mg Pantoprazole Sodium (Protonix -) 20 mg PO DAILY [facility] Last Admin: 07/08/16 09:21 Dose: 20 mg Potassium Phos/Sodium Phos (Phos-Nak Packet -) 1 packet PO TID [facility] Stop: 07/10/16 06:01 Senna (Senna -) 1 tab PO [facility] Last Admin: 07/07/16 22:13 Dose: 1 tab Sodium Bicarbonate (Sodium Bicarbonate -) 650 mg PO BID [facility] Last Admin: 07/08/16 09:20 Dose: 650 mg Tamsulosin HCl (Flomax -) 0.4 mg PO DAILY@0830 [facility] Last Admin: 07/08/16 09:19 Dose: 0.4 mg Zinc Sulfate (Orazinc -) 220 mg NGT DAILY [facility] Last Admin: 07/08/16 09:20 Dose: 220 mg A/P Acute Hypoxic Respiratory Failure UTI Sacral Decubitus Ulcer Infection Septic Shock resolving Lactic Acidosis improved Acute Kidney Injury resolving Bilateral DVTs HTN DM Dementia - continue antibiotics - for sacral ulcer debridement - continue free water replacement - monitor urine output, creatinine - glucose control - BiPAP as needed to assist in work of breathing - titrate FiO2 to keep SpO2 >90% - aspiration precautions - DVT/GI prophylaxis
--- NOTE | 2016-07-08 14:54 | PN ---
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 (short form) - Note 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: intermittent fevers Vital Signs Period Temp Pulse Resp BP Sys/Chávez Pulse Ox Last 24 Hr 98.3 F-101.6 F 74-110 18-30 99-152/51-78 92-98 cor-rrr lungs-decreased bs at bases abd soft,nt ext bilateral BKA +ulcer of sacrum with drainage +conley cxray RLL infiltrate with effusion CBC, BMP 07/06/16 05:20 07/06/16 05:20 Microbiology 07/02/16 16:00 Blood Culture - Preliminary Blood - Peripheral Venous NO GROWTH OBTAINED AFTER 72 HOURS, INCUBATION TO CONTINUE FOR 2 DAYS. 07/02/16 16:00 Blood Culture - Preliminary Blood - Peripheral Venous NO GROWTH OBTAINED AFTER 72 HOURS, INCUBATION TO CONTINUE FOR 2 DAYS. 07/04/16 10:45 Blood Culture - Preliminary Blood - Peripheral Venous NO GROWTH OBTAINED AFTER 24 HOURS, INCUBATION TO CONTINUE FOR 4 DAYS. 07/04/16 10:45 Blood Culture - Preliminary Blood - Peripheral Venous NO GROWTH OBTAINED AFTER 24 HOURS, INCUBATION TO CONTINUE FOR 4 DAYS. 06/30/16 09:25 Blood Culture - Final Blood - Peripheral Venous NO GROWTH AFTER 5 DAYS INCUBATION 06/30/16 09:25 Blood Culture - Final Blood - Peripheral Venous NO GROWTH AFTER 5 DAYS INCUBATION 07/04/16 16:00 Legionella Antigen - Final Urine For Antigen Detection Streptococcus pneumoniae Antigen (M - Final a/p day #8 ertapenem ecoli esbl uti infected sacral ulcer pneumonia continue ertapenem for debridement of sacral ulcer if fevers persist post debridement would repeat blood cultures consider thoracentesis if fever and effusion persist Problem List - Problems (1) Sepsis Code(s): A41.9 - SEPSIS, UNSPECIFIED ORGANISM Qualifiers: Qualified Code(s): A41.51 - Sepsis due to Escherichia coli [E. coli] (2) UTI (urinary tract infection) Code(s): N39.0 - URINARY TRACT INFECTION, SITE NOT SPECIFIED Qualifiers: Qualified Code(s): N30.00 - Acute cystitis without hematuria (3) Infected decubitus ulcer Code(s): L89.90 - PRESSURE ULCER OF UNSPECIFIED SITE, UNSPECIFIED STAGE
[2016-07-08] MEDS ORDERED: MIDAZOLAM HCL 2 MG/2 ML SINGLE DOSE VIAL ONE (16:04)
[2016-07-08] MEDS ORDERED: LIDOCAINE HCL 1%, 10 MG/ML (20ML VIAL) IJ ONE (16:09)
--- NOTE | 2016-07-08 16:43 | OP ---
Operative Note - Note: Operative Date: 07/08/16 Pre-Operative Diagnosis: Sacral ulcer - necrotic Operation: Excisional debridment sacrum - skin, subucutaneous tissue, muscel Post-Operative Diagnosis: Same as Pre-op Surgeon: Felipe Rivers Anesthesia: Fractional Estimated Blood Loss (mls): 20
[2016-07-08] MEDS ORDERED: D5-1/2NS+20 MEQ KCL - 1,000 ML IV SCH (17:05)
[2016-07-08] MEDS ORDERED: ACETAMINOPHEN 1000 MG/100 ML VIAL (NON FORMULARY) IVPB PRN (17:05)
--- NOTE | 2016-07-08 17:52 | OP ---
DATE OF OPERATION: 07/08/2016 PREOPERATIVE DIAGNOSIS: Necrotic sacral ulcer. POSTOPERATIVE DIAGNOSIS: Necrotic sacral ulcer. PROCEDURE: Excisional debridement of sacrum skin, subcutaneous tissue, muscle. SURGEON: Felipe Luis DO ANESTHESIA: Fractional. BLOOD LOSS: 20 mL. The patient is a 80-year-old female with a sacral ulcer. She recently had bilateral BKAs performed and now came in due to sepsis. The patient's family consented for the procedure, understanding all risks, benefits, alternatives. She was then taken to the operating room. Once in the operating room, she was laid on the operating table in supine manner and was then turned to the left side down. We then prepped and draped the sacrum in sterile surgical manner. We then injected 20 mL lidocaine 1% into the sacral ulcer. We then used Metzenbaum scissors and excised all of the necrotic tissue, the skin and the subcutaneous tissue, getting all the way down to muscle. Bovie electrocautery used to control all hemostasis. The wound was then copiously irrigated and a saline moist dressing was placed, with dry 4 x 4's and tape. The patient tolerated the procedure, no complication. Patient transferred to PACU in stable condition. Total blood loss 20 mL. FELIPE LUIS DO [employer]/[id number]
[2016-07-08] MEDS: ATORVASTATIN CA 10 MG TABLET (FP) NGT SCH (23:00)
[2016-07-08] MEDS: NAPH,MB-DB/K PH,MBDB POWDER PACKET PO SCH (23:00)
[2016-07-08] MEDS: MIRTAZAPINE 30 MG TABLET (FP) PO SCH (23:04)
[2016-07-08] MEDS: SENNOSIDES 8.6MG TABLET (FP) PO SCH (23:04)
[2016-07-09] MEDS ORDERED: PT OWN MED DRAWER 7, Y5N ONE (06:04)
[2016-07-09] MEDS: INSULIN SLIDING SCALE (NOVOLOG) 1 VIAL SQ SCH ×4 (06:12→23:00)
[2016-07-09] MEDS: NAPH,MB-DB/K PH,MBDB POWDER PACKET PO SCH ×3 (06:13→22:59)
[2016-07-09] MEDS: ASCORBIC ACID 500 MG/5 ML UNIT DOSE CUP NGT SCH ×3 (06:13→22:59)
[2016-07-09] MEDS: ALBUTEROL SO4 0.083% IH SOL 2.5 MG/3 ML VIAL.NEB. NEB SCH ×3 (06:27→18:00)
[2016-07-09] MEDS: IPRATROPIUM BR 0.02% 0.5 MG/2.5 ML VIAL.NEB. NEB SCH ×3 (06:27→18:00)
[2016-07-09 07:51] LABS: MCH 31.1 pg (25.7-33.7); MCHC 33.1 g/dl (32.0-36.0); MEAN CELL VOLUME 93.9 fl (80-96); MEAN PLT VOLUME 7.9 fl (7.5-11.1); PLATELET COUNT 321 K/MM3 (134-434); RDW 15.9 % (11.6-15.6); WHITE BLOOD COUNT 8.6 K/mm3 (4.0-10.0)
--- NOTE | 2016-07-09 08:17 | PN ---
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, Physician - Current Medication List Current Medications: Active Medications Acetaminophen (Ofirmev Injection -) 1,000 mg IVPB Q6H PRN Acetaminophen (Tylenol Suppository -) 650 mg [place] Q6H PRN PRN Reason: FEVER OR PAIN Albuterol Sulfate (Ventolin 0.083% Nebulizer Soln -) 1 amp NEB QIDR [facility] Last Admin: 07/09/16 06:27 Dose: 1 amp Amino Acids (Prosource No Carb Liquid Pkt) 30 ml NGT BID@0800,1730 [facility] Last Admin: 07/08/16 18:10 Dose: Not Given Ascorbic Acid (Vitamin C Oral Solution -) 500 mg NGT TID [facility] Last Admin: 07/09/16 06:13 Dose: 500 mg Atorvastatin Calcium (Lipitor -) 10 mg NGT HS [facility] Last Admin: 07/08/16 23:00 Dose: Not Given Collagenase (Santyl -) 1 applic TP DAILY [facility] Potassium Chloride/Dextrose/Sod Cl (D5-1/2ns+20 Meq Kcl -) 1,000 mls @ 75 mls/ hr IV ASDIR [facility] Last Admin: 07/08/16 17:42 Dose: 75 mls/hr Ertapenem 1 gm/ Sodium (Chloride) 50 mls @ 50 mls/hr IVPB DAILY [facility] PRN Reason: Protocol Ibuprofen (Caldolor Injection -) 400 mg IVPB Q6H PRN PRN Reason: FEVER Insulin Aspart (Novolog Vial Sliding Scale -) 1 vial SQ ACHS [facility] PRN Reason: Protocol Last Admin: 07/09/16 06:12 Dose: 2 units Ipratropium [place] (Atrovent 0.02% Nebulizer -) 1 amp NEB Q6HPO [facility] Last Admin: 07/09/16 06:27 Dose: 1 amp Metoprolol Tartrate (Lopressor -) 50 mg PO BID [facility] Last Admin: 07/08/16 23:03 Dose: Not Given Mirtazapine (Remeron -) 30 mg PO HS [facility] Last Admin: 07/08/16 23:04 Dose: Not Given Olanzapine (Zyprexa -) 5 mg PO BID [facility] Last Admin: 07/08/16 23:05 Dose: Not Given Pantoprazole Sodium (Protonix -) 20 mg PO DAILY [facility] Potassium Phos/Sodium Phos (Phos-Nak Packet -) 1 packet PO TID [facility] Stop: 07/10/16 06:01 Last Admin: 07/09/16 06:13 Dose: 1 packet Senna (Senna -) 1 tab PO HS [facility] Last Admin: 07/08/16 23:04 Dose: Not Given Sodium Bicarbonate (Sodium Bicarbonate -) 650 mg PO BID [facility] Last Admin: 07/08/16 23:04 Dose: Not Given Tamsulosin HCl (Flomax -) 0.4 mg PO DAILY@0830 [facility] Zinc Sulfate (Orazinc -) 220 mg NGT DAILY [facility] - Objective Vital Signs: Vital Signs Temperature 98.8 F 07/09/16 05:00 Pulse Rate 86 07/09/16 05:00 Respiratory Rate 19 07/09/16 05:00 Blood Pressure 153/71 07/09/16 05:00 O2 Sat by Pulse Oximetry (%) 99 07/09/16 05:00 Labs: CBC, BMP 07/08/16 05:35 INR, PTT INR 1.08 (0.82-1.09) 07/01/16 01:45 Problem List - Problems (1) Decubitus ulcer Assessment/Plan: Operative Date: 07/08/16 Pre-Operative Diagnosis: Sacral ulcer - necrotic Operation: Excisional debridment sacrum - skin, subucutaneous tissue, muscel Post-Operative Diagnosis: Same as Pre-op Surgeon: Felipe Rivers PER ID Code(s): L89.90 - PRESSURE ULCER OF UNSPECIFIED SITE, UNSPECIFIED STAGE (2) Anemia Assessment/Plan: MONITOR S/P TRANSFUSION Laboratory Tests 07/07/16 07/08/16 05:25 05:35 Hgb 8.4 L 8.8 L Code(s): D64.9 - ANEMIA, UNSPECIFIED (3) Diabetes Assessment/Plan: MONITOR B/S ENDO CONSULT SS/ Laboratory Tests 07/08/16 07/08/16 07/08/16 11:26 17:55 23:01 POC Glucometer 292 173 194 07/09/16 05:41 POC Glucometer 241 Code(s): E11.9 - TYPE 2 DIABETES MELLITUS WITHOUT COMPLICATIONS (4) S/P bilateral below knee amputation Assessment/Plan: MONITOR Code(s): Z89.512 - ACQUIRED ABSENCE OF LEFT LEG BELOW KNEE Z89.511 - ACQUIRED ABSENCE OF RIGHT LEG BELOW KNEE (5) DVT, bilateral lower limbs Assessment/Plan: ON HEPARIN DRIP--CHANGE TO LOVENOX Code(s): I82.403 - ACUTE EMBOLISM AND THOMBOS UNSP DEEP VEINS OF LOW EXTRM, BI (6) Septic shock Code(s): A41.9 - SEPSIS, UNSPECIFIED ORGANISM R65.21 - SEVERE SEPSIS WITH SEPTIC SHOCK (7) UTI (urinary tract infection) Code(s): N39.0 - URINARY TRACT INFECTION, SITE NOT SPECIFIED Qualifiers: Qualified Code(s): N30.00 - Acute cystitis without hematuria (8) Fever Code(s): R50.9 - FEVER, UNSPECIFIED (9) Pneumonia Code(s): J18.9 - PNEUMONIA, UNSPECIFIED ORGANISM Qualifiers: Qualified Code(s): J18.1 - Lobar pneumonia, unspecified organism (10) CKD (chronic kidney disease) Code(s): N18.9 - CHRONIC KIDNEY DISEASE, UNSPECIFIED
[2016-07-09] MEDS: AMINO ACIDS/PROTEIN HYDROLYS 30 ML LIQUID.PKT NGT SCH ×2 (08:36→18:06)
--- NOTE | 2016-07-09 08:51 | PN ---
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 (short form) - Note 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: Vascular Surgery- Dr. Rivers Patient seen and examined. Appears comfortable. Last Vital Signs Temp Pulse Resp BP Pulse Ox 98.8 F 86 19 153/71 99 07/09/16 05:00 07/09/16 05:00 07/09/16 05:00 07/09/16 05:00 07/09/16 05:00 CBC, BMP 07/09/16 05:48 07/08/16 05:35 Exam: Gen: NAD, baseline dementia Sacrum: s/p debridement, 2-3 cm circumferential undermining, surroudning soft tissue excoriation, dressing changed on rounds, wet to dry A/P POD#1 s/p sacral excisional debridment (skin, subucutaneous tissue, muscle) Continue daily dressings, wet to dry saline and Kerlex, recommend Exoderm dressing for soft tissue skin excoriation surrounding sacral ulcer, dressing instructions ordered Abx per ID Continue care per medical team
[2016-07-09] MEDS: TAMSULOSIN HCL 0.4 MG CAP.ER.24H (FP) PO SCH (09:35)
[2016-07-09] MEDS: SODIUM BICARBONATE 650 MG TABLET PO SCH ×2 (09:36→22:58)
[2016-07-09] MEDS: ZINC SULFATE 220 MG CAPSULE (FP) NGT SCH (09:36)
[2016-07-09] MEDS: METOPROLOL TARTRATE 50 MG TABLET (FP) PO SCH ×2 (09:36→22:58)
[2016-07-09] MEDS: PANTOPRAZOLE 20 MG TABLET (FP) PO SCH (09:36)
[2016-07-09] MEDS: OLANZapine 5 MG TABLET PO SCH ×2 (09:36→22:58)
[2016-07-09] MEDS: COLLAGENASE CLOSTRIDIUM HIST. 30 GRAMS TUBE TP SCH (09:37)
[2016-07-09] MEDS ORDERED: ERTAPENEM SODIUM 1 GM in SODIUM CHLORIDE 50 ML IVPB SCH (10:00)
--- NOTE | 2016-07-09 11:22 | PN ---
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6 F 07/08/16 07/08/16 07/08/16 11:15 14:10 16:37 Breakfast Supper Temperature 101.6 F H 98.6 F 98.6 F 07/08/16 07/08/16 07/08/16 17:20 17:45 19:00 Breakfast Supper Temperature 98.2 F 99.2 F 98.3 F 07/08/16 07/08/16 07/09/16 19:52 21:00 01:00 Breakfast Supper 0 Temperature 98.4 F 98.1 F 07/09/16 07/09/16 07/09/16 05:00 09:00 09:53 Breakfast 75% Supper Temperature 98.8 F 100.2 F H Laboratory Tests 07/09/16 05:48 WBC 8.6 Reviewed with staff to mix puree with liquid (ensure or milk/soup), to sip food via cup, for increased PO acceptance. Encourage ensure compact. Monitor PO tolerance.
--- NOTE | 2016-07-09 12:10 | PN ---
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, Physician History of Present Illness: pulmonary awake,comfortable,nad,-tachypnea - Current Medication List Current Medications: Active Medications Acetaminophen (Ofirmev Injection -) 1,000 mg IVPB Q6H PRN Acetaminophen (Tylenol Suppository -) 650 mg [place] Q6H PRN PRN Reason: FEVER OR PAIN Albuterol Sulfate (Ventolin 0.083% Nebulizer Soln -) 1 amp NEB QIDR [facility] Last Admin: 07/09/16 06:27 Dose: 1 amp Amino Acids (Prosource No Carb Liquid Pkt) 30 ml NGT BID@0800,1730 [facility] Last Admin: 07/09/16 08:36 Dose: 30 ml Ascorbic Acid (Vitamin C Oral Solution -) 500 mg NGT TID [facility] Last Admin: 07/09/16 06:13 Dose: 500 mg Atorvastatin Calcium (Lipitor -) 10 mg NGT HS [facility] Last Admin: 07/08/16 23:00 Dose: Not Given Collagenase (Santyl -) 1 applic TP DAILY [facility] Last Admin: 07/09/16 09:37 Dose: Not Given Ertapenem 1 gm/ Sodium (Chloride) 50 mls @ 50 mls/hr IVPB DAILY [facility] PRN Reason: Protocol Last Admin: 07/09/16 09:35 Dose: 50 mls/hr Ibuprofen (Caldolor Injection -) 400 mg IVPB Q6H PRN PRN Reason: FEVER Insulin Aspart (Novolog Vial Sliding Scale -) 1 vial SQ ACHS [facility] PRN Reason: Protocol Last Admin: 07/09/16 06:12 Dose: 2 units Ipratropium [place] (Atrovent 0.02% Nebulizer -) 1 amp NEB Q6HPO [facility] Last Admin: 07/09/16 06:27 Dose: 1 amp Metoprolol Tartrate (Lopressor -) 50 mg PO BID [facility] Last Admin: 07/09/16 09:36 Dose: 50 mg Mirtazapine (Remeron -) 30 mg PO HS [facility] Last Admin: 07/08/16 23:04 Dose: Not Given Olanzapine (Zyprexa -) 5 mg PO BID [facility] Last Admin: 07/09/16 09:36 Dose: 5 mg Pantoprazole Sodium (Protonix -) 20 mg PO DAILY [facility] Last Admin: 07/09/16 09:36 Dose: 20 mg Potassium Phos/Sodium Phos (Phos-Nak Packet -) 1 packet PO TID [facility] Stop: 07/10/16 06:01 Last Admin: 07/09/16 06:13 Dose: 1 packet Senna (Senna -) 1 tab PO HS [facility] Last Admin: 07/08/16 23:04 Dose: Not Given Sodium Bicarbonate (Sodium Bicarbonate -) 650 mg PO BID [facility] Last Admin: 07/09/16 09:36 Dose: 650 mg Tamsulosin HCl (Flomax -) 0.4 mg PO DAILY@0830 [facility] Last Admin: 07/09/16 09:35 Dose: 0.4 mg Zinc Sulfate (Orazinc -) 220 mg NGT DAILY [facility] Last Admin: 07/09/16 09:36 Dose: 220 mg - Objective Vital Signs: Vital Signs Temperature 100.2 F H 07/09/16 09:00 Pulse Rate 84 07/09/16 09:00 Respiratory Rate 18 07/09/16 09:00 Blood Pressure 118/54 07/09/16 09:00 O2 Sat by Pulse Oximetry (%) 99 07/09/16 05:00 Constitutional: Yes: Calm, Thin Eyes: Yes: WNL HENT: Yes: WNL Neck: Yes: WNL Cardiovascular: Yes: Regular Rate and Rhythm, S1, S2 Respiratory: Yes: Diminished (poor inspiratory effort) Gastrointestinal: Yes: Normal Bowel Sounds, Soft Extremities: Yes: Amputation (bilateral bka) Labs: CBC, BMP 07/09/16 05:48 07/08/16 05:35 INR, PTT INR 1.08 (0.82-1.09) 07/01/16 01:45 Assessment/Plan A/P Acute Hypoxic Respiratory Failure improved UTI Sacral Decubitus Ulcer Infection s/p sacral debridement Septic Shock resolving Lactic Acidosis improved Acute Kidney Injury resolving Bilateral DVTs HTN DM Dementia - continue antibiotics - continue free water replacement - monitor urine output, creatinine - glucose control - BiPAP as needed to assist in work of breathing - titrate FiO2 to keep SpO2 >90% - aspiration precautions - DVT/GI prophylaxis DR CONNER
--- NOTE | 2016-07-09 13:54 | PN ---
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, Physician Chief Complaint: comfortable History of Present Illness: 80F OMS, NHR, HTN, DM, CKD, GIANNI, GERD, CVA bilateral BKA, COPD admitted 06/30/16 fever sepsis with shock due to UTI and infected sacral decubitus ulcer. Was on pressors but now tapered off. Getting broad spectrum abx. Underwent debridement. Also found with bilateral DVT. On lovenox. Now held pending further debridement. Echocardiogram 07/01/16 normal Ef moderate aortic sclerosis. Telemetry 07/07/16 brief NSVT. None further. - Current Medication List Current Medications: Active Medications Acetaminophen (Ofirmev Injection -) 1,000 mg IVPB Q6H PRN Acetaminophen (Tylenol Suppository -) 650 mg [place] Q6H PRN PRN Reason: FEVER OR PAIN Albuterol Sulfate (Ventolin 0.083% Nebulizer Soln -) [address] [facility] Last Admin: 07/09/16 12:20 Dose: 1 amp Amino Acids (Prosource No Carb Liquid Pkt) 30 ml NGT BID@0800,1730 [facility] Last Admin: 07/09/16 08:36 Dose: 30 ml Ascorbic Acid (Vitamin C Oral Solution -) [address] [facility] Last Admin: 07/09/16 13:21 Dose: 500 mg Atorvastatin Calcium (Lipitor -) [address] [facility] Last Admin: 07/08/16 23:00 Dose: Not Given Collagenase (Santyl -) [address] [facility] Last Admin: 07/09/16 09:37 Dose: Not Given Ertapenem 1 gm/ Sodium (Chloride) 50 mls @ 50 mls/hr IVPB DAILY [facility] PRN Reason: Protocol Last Admin: 07/09/16 09:35 Dose: 50 mls/hr Ibuprofen (Caldolor Injection -) 400 mg IVPB Q6H PRN PRN Reason: FEVER Insulin Aspart (Novolog Vial Sliding Scale -) [address] [facility] PRN Reason: Protocol Last Admin: 07/09/16 12:27 Dose: 2 units Ipratropium [place] (Atrovent 0.02% Nebulizer -) [address] [facility] Last Admin: 07/09/16 12:20 Dose: 1 amp Metoprolol Tartrate (Lopressor -) [address] [facility] Last Admin: 07/09/16 09:36 Dose: 50 mg Mirtazapine (Remeron -) [address] [facility] Last Admin: 07/08/16 23:04 Dose: Not Given Olanzapine (Zyprexa -) [address] [facility] Last Admin: 07/09/16 09:36 Dose: 5 mg Pantoprazole Sodium (Protonix -) [address] [facility] Last Admin: 07/09/16 09:36 Dose: 20 mg Potassium Phos/Sodium Phos (Phos-Nak Packet -) [address] [facility] Stop: 07/10/16 06:01 Last Admin: 07/09/16 13:21 Dose: 1 packet Senna (Senna -) 1 tab PO [facility] Last Admin: 07/08/16 23:04 Dose: Not Given Sodium Bicarbonate (Sodium Bicarbonate -) [address] [facility] Last Admin: 07/09/16 09:36 Dose: 650 mg Tamsulosin HCl (Flomax -) 0.4 mg PO DAILY@0830 [facility] Last Admin: 07/09/16 09:35 Dose: 0.4 mg Zinc Sulfate (Orazinc -) [address] [facility] Last Admin: 07/09/16 09:36 Dose: 220 mg - Objective Vital Signs: Vital Signs Temperature 100.2 F H 07/09/16 09:00 Pulse Rate 83 07/09/16 12:20 Respiratory Rate 18 07/09/16 09:00 Blood Pressure 118/54 07/09/16 09:00 O2 Sat by Pulse Oximetry (%) 93 L 07/09/16 12:20 Constitutional: Yes: No Distress Eyes: Yes: WNL, Conjunctiva Clear HENT: Yes: WNL, Atraumatic, Normocephalic Neck: Yes: WNL, Supple, Trachea Midline Cardiovascular: Yes: WNL, Regular Rate and Rhythm Respiratory: Yes: WNL, Regular, CTA Bilaterally Gastrointestinal: Yes: WNL, Normal Bowel Sounds Musculoskeletal: Yes: WNL Extremities: Yes: WNL Edema: No Integumentary: Yes: WNL Neurological: Yes: WNL, Alert, Oriented ...Motor Strength: WNL Psychiatric: Yes: WNL Labs: CBC, BMP 07/09/16 05:48 07/08/16 05:35 INR, PTT INR 1.08 (0.82-1.09) 07/01/16 01:45 Assessment/Plan Tachycardia on telemetry is severe sinus tachycardia, due to DVT possible PE, sepsis, and metabolic stress of infection. This is a "noncardiac arrhythmia" the treatment of which is to control the noncardiac causes. Not in CHF. continue low dose beta leticia, avoid stimulants, continue abx. continue lovenox for dvt. will be appropriate candidate for novel anticoagulant when stable for dc and no further procedures needed. She has no cardiac contraindications to further debridement surgery. Medically optimized. She is at low to intermediate risk of periop events but the benefits of infection treatment outweigh the risks. No treatment is needed for NSVT in the setting of sepsis and normal EF on echocardiogram. Goals of care should be addressed as well for more involved issues. Will follow with you.
[2016-07-09] MEDS: ACETAMINOPHEN 650 MG SUPP.RECT PR PRN ×2 (15:00→23:42)
--- NOTE | 2016-07-09 15:22 | PN ---
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 (short form) - Note 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: Anesthesia Post op Pt seen and examined S;awake,lethargic O: Vital Signs Temperature 102.5 F H 07/09/16 14:00 Pulse Rate 85 07/09/16 14:00 Respiratory Rate 18 07/09/16 14:00 Blood Pressure 127/59 07/09/16 14:00 O2 Sat by Pulse Oximetry (%) 93 L 07/09/16 12:20 CBC, BMP 07/09/16 05:48 07/08/16 05:35 :/PCurrent Active Problems DVT, bilateral lower limbs (Acute) Decubitus ulcer (Acute) Infected decubitus ulcer (Acute) Pneumonia (Acute) Septic shock (Acute) Type 2 diabetes mellitus with hyperosmolarity without nonketotic hyperglycemic- hyperosmolar coma ([facility]) (Acute) UTI (urinary tract infection) (Acute) s/p debridement. Still febrile No apparent anesthesia related complications Continue current care Daljit He MD
--- NOTE | 2016-07-09 15:31 | PN ---
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 (short form) - Note 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: intermittent fevers s/p sacral debridement yesterday lethargic no diarrhea Vital Signs Period Temp Pulse Resp BP Sys/Chávez Pulse Ox Last 24 Hr 98.1 F-102.5 F 66-97 16-22 109-153/47-71 93-100 cor-rrr lungs decreased bs at bases abd soft,nt +conley with cloudy urine ext bilateral BKA CBC, BMP 07/09/16 05:48 07/08/16 05:35 cxray RLL infiltrate with effusion Microbiology 07/02/16 16:00 Blood Culture - Preliminary Blood - Peripheral Venous NO GROWTH OBTAINED AFTER 72 HOURS, INCUBATION TO CONTINUE FOR 2 DAYS. 07/02/16 16:00 Blood Culture - Preliminary Blood - Peripheral Venous NO GROWTH OBTAINED AFTER 72 HOURS, INCUBATION TO CONTINUE FOR 2 DAYS. 07/04/16 10:45 Blood Culture - Preliminary Blood - Peripheral Venous NO GROWTH OBTAINED AFTER 24 HOURS, INCUBATION TO CONTINUE FOR 4 DAYS. 07/04/16 10:45 Blood Culture - Preliminary Blood - Peripheral Venous NO GROWTH OBTAINED AFTER 24 HOURS, INCUBATION TO CONTINUE FOR 4 DAYS. 06/30/16 09:25 Blood Culture - Final Blood - Peripheral Venous NO GROWTH AFTER 5 DAYS INCUBATION 06/30/16 09:25 Blood Culture - Final Blood - Peripheral Venous NO GROWTH AFTER 5 DAYS INCUBATION 07/04/16 16:00 Legionella Antigen - Final Urine For Antigen Detection Streptococcus pneumoniae Antigen (M - Final a/p day #9 ertapenem ecoli esbl uti infected sacral ulcer pneumonia repeat cultures repeat cxray empiric vanc/zosyn/diflucan resume ivf Problem List - Problems (1) Sepsis Code(s): A41.9 - SEPSIS, UNSPECIFIED ORGANISM Qualifiers: Qualified Code(s): A41.51 - Sepsis due to Escherichia coli [E. coli] (2) UTI (urinary tract infection) Code(s): N39.0 - URINARY TRACT INFECTION, SITE NOT SPECIFIED Qualifiers: Qualified Code(s): N30.00 - Acute cystitis without hematuria (3) Infected decubitus ulcer Code(s): L89.90 - PRESSURE ULCER OF UNSPECIFIED SITE, UNSPECIFIED STAGE
[2016-07-09] MEDS ORDERED: VANCOMYCIN 1 GRAM (PRE-DOCKED) 1,000 MG/250 ML BAG IVPB ONE (15:33)
[2016-07-09] MEDS: IBUPROFEN 800 MG/8 ML IJ IVPB PRN (16:37)
[2016-07-09] MEDS: FLUCONAZOLE 200 MG/NS 100 ML IVPB SCH (16:40)
[2016-07-09] MEDS: PIPERACILLIN/TAZOB 3.375 GM/50 ML PRE-DOCKED IVPB SCH ×2 (16:40→19:19)
[2016-07-09] MEDS: POTASSIUM CHLORIDE 10 MEQ in DEXTROSE 5%-0.45% SALINE 1,000 ML IVPB SCH (17:05)
[2016-07-09 18:22] LABS: URINE APPEARANCE CLOUDY; URINE BILIRUBIN NEGATIVE (NEGATIVE); URINE COLOR YELLOW; URINE GLUCOSE (UA) 3+ (NEGATIVE); URINE KETONE NEGATIVE (NEGATIVE); URINE NITRITE NEGATIVE (NEGATIVE); URINE UROBILINOGEN NEGATIVE E.U./dl (0.2-1.0)
[2016-07-09 18:59] LABS: URINE BLOOD 1+ (NEGATIVE); URINE LEUK ESTERASE 2+ (NEGATIVE); URINE PROTEIN 2+ (NEGATIVE)
[2016-07-09 19:10] LABS: URINE BACTERIA MODERATE /hpf (NONE SEEN); URINE MUCUS RARE; URINE RBC 46 /hpf (0-3); URINE WBC 86 /hpf (3-5)
[2016-07-09] MEDS ORDERED: MIRTAZAPINE 15 MG TABLET (FP) ONE (22:55)
[2016-07-09] MEDS: MIRTAZAPINE 30 MG TABLET (FP) PO SCH (22:58)
[2016-07-09] MEDS: SENNOSIDES 8.6MG TABLET (FP) PO SCH (22:58)
[2016-07-09] MEDS: ATORVASTATIN CA 10 MG TABLET (FP) NGT SCH (22:58)
[2016-07-10] MEDS: PIPERACILLIN/TAZOB 3.375 GM/50 ML PRE-DOCKED IVPB SCH ×3 (02:53→17:02)
[2016-07-10] MEDS: IBUPROFEN 800 MG/8 ML IJ IVPB PRN ×2 (03:36→17:15)
[2016-07-10] MEDS: IPRATROPIUM BR 0.02% 0.5 MG/2.5 ML VIAL.NEB. NEB SCH ×5 (05:49→23:58)
[2016-07-10] MEDS: ALBUTEROL SO4 0.083% IH SOL 2.5 MG/3 ML VIAL.NEB. NEB SCH ×5 (05:49→23:58)
[2016-07-10] MEDS ORDERED: PT OWN MED DRAWER 7, Y5N ONE (06:01)
[2016-07-10] MEDS: ASCORBIC ACID 500 MG/5 ML UNIT DOSE CUP NGT SCH ×3 (06:02→22:04)
[2016-07-10] MEDS: POTASSIUM CHLORIDE 10 MEQ in DEXTROSE 5%-0.45% SALINE 1,000 ML IVPB SCH (06:02)
[2016-07-10] MEDS: NAPH,MB-DB/K PH,MBDB POWDER PACKET PO SCH (06:02)
[2016-07-10] MEDS: INSULIN SLIDING SCALE (NOVOLOG) 1 VIAL SQ SCH ×4 (06:02→22:05)
[2016-07-10 08:08] LABS: BASOPHIL 0.2 % (0-2.0); EOSINOPHIL 0.5 % (0-4.5); MCH 30.7 pg (25.7-33.7); MCHC 32.4 g/dl (32.0-36.0); MEAN CELL VOLUME 94.6 fl (80-96); MEAN PLT VOLUME 8.1 fl (7.5-11.1); NEUTROPHILS 74.4 % (42.8-82.8); PLATELET COUNT 326 K/MM3 (134-434); RDW 16.2 % (11.6-15.6); WHITE BLOOD COUNT 14.3 K/mm3 (4.0-10.0)
[2016-07-10 08:38] LABS: ALBUMIN 1.4 g/dl (3.4-5.0); ALK PHOS 84 U/L (45-117); ANION GAP 7 (8-16); BILIRUBIN,TOTAL 0.5 mg/dL (0.2-1.0); CALCIUM 7.6 mg/dL (8.5-10.1); CO2 29 mmol/L (21-32); CREATININE 0.8 mg/dL (0.55-1.02); GLUCOSE,RANDOM 242 mg/dL (74-106); SGOT/AST 10 U/L (15-37); SGPT/ALT 10 U/L (12-78); TOT PROT 5.5 g/dl (6.4-8.2)
--- NOTE | 2016-07-10 08:48 | PN ---
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, Physician History of Present Illness: MORE LETHARGIC AND FEBRILE - Current Medication List Current Medications: Active Medications Acetaminophen (Ofirmev Injection -) 1,000 mg IVPB Q6H PRN Acetaminophen (Tylenol Suppository -) 650 mg [place] Q6H PRN PRN Reason: FEVER OR PAIN Last Admin: 07/09/16 23:42 Dose: 650 mg Albuterol Sulfate (Ventolin 0.083% Nebulizer Soln -) 1 amp NEB QIDR [facility] Last Admin: 07/10/16 05:49 Dose: 1 amp Amino Acids (Prosource No Carb Liquid Pkt) 30 ml NGT BID@0800,1730 [facility] Last Admin: 07/09/16 18:06 Dose: 30 ml Ascorbic Acid (Vitamin C Oral Solution -) 500 mg NGT TID [facility] Last Admin: 07/10/16 06:02 Dose: 500 mg Atorvastatin Calcium (Lipitor -) 10 mg NGT HS [facility] Last Admin: 07/09/16 22:58 Dose: 10 mg Collagenase (Santyl -) 1 applic TP DAILY [facility] Last Admin: 07/09/16 09:37 Dose: Not Given Potassium Chloride 10 meq/ (Dextrose/Sodium Chloride) 1,005 mls @ 75 mls/hr IVPB Q13H [facility] Last Admin: 07/10/16 06:02 Dose: 75 mls/hr Fluconazole (Diflucan 200 Mg/Ns Premixed Ivpb -) 100 mls @ 100 mls/hr IVPB DAILY [facility] Last Admin: 07/09/16 16:40 Dose: 100 mls/hr Potassium Chloride/Sodium Chloride (1/2ns+20meq Kcl) 1,000 mls @ 83 mls/hr IV ASDIR LARRY Ibuprofen (Caldolor Injection -) 400 mg IVPB Q6H PRN PRN Reason: FEVER Last Admin: 07/10/16 03:36 Dose: 400 mg Insulin Aspart (Novolog Vial Sliding Scale -) 1 vial SQ ACHS LARRY PRN Reason: Protocol Last Admin: 07/10/16 06:02 Dose: 2 units Ipratropium [place] (Atrovent 0.02% Nebulizer -) 1 amp NEB Q6HPO [facility] Last Admin: 07/10/16 05:49 Dose: 1 amp Metoprolol Tartrate (Lopressor -) 50 mg PO BID [facility] Last Admin: 07/09/16 22:58 Dose: 50 mg Mirtazapine (Remeron -) 30 mg PO HS [facility] Last Admin: 07/09/16 22:58 Dose: 30 mg Olanzapine (Zyprexa -) 5 mg PO BID [facility] Last Admin: 07/09/16 22:58 Dose: 5 mg Pantoprazole Sodium (Protonix -) 20 mg PO DAILY [facility] Last Admin: 07/09/16 09:36 Dose: 20 mg Piperacillin Sod/Tazobactam Sod (Zosyn 3.375gm Ivpb (Pre-Docked)) 3.375 gm IVPB Q8H-IV [facility] PRN Reason: Protocol Last Admin: 07/10/16 02:53 Dose: 3.375 gm Senna (Senna -) 1 tab PO HS [facility] Last Admin: 07/09/16 22:58 Dose: 1 tab Sodium Bicarbonate (Sodium Bicarbonate -) 650 mg PO BID [facility] Last Admin: 07/09/16 22:58 Dose: 650 mg Tamsulosin HCl (Flomax -) 0.4 mg PO DAILY@0830 [facility] Last Admin: 07/09/16 09:35 Dose: 0.4 mg Zinc Sulfate (Orazinc -) 220 mg NGT DAILY [facility] Last Admin: 07/09/16 09:36 Dose: 220 mg - Objective Vital Signs: Vital Signs Temperature 99.9 F H 07/10/16 08:00 Pulse Rate 102 H 07/10/16 08:00 Respiratory Rate 20 07/10/16 08:00 Blood Pressure 132/66 07/10/16 08:00 O2 Sat by Pulse Oximetry (%) 90 L 07/10/16 06:00 Cardiovascular: Yes: S1, S2 Respiratory: Yes: Regular, CTA Bilaterally Gastrointestinal: Yes: Normal Bowel Sounds, Soft Extremities: Yes: Amputation Labs: CBC, BMP 07/10/16 06:05 07/10/16 06:05 INR, PTT INR 1.08 (0.82-1.09) 07/01/16 01:45 Problem List - Problems (1) Decubitus ulcer Assessment/Plan: Operative Date: 07/08/16 Pre-Operative Diagnosis: Sacral ulcer - necrotic Operation: Excisional debridment sacrum - skin, subucutaneous tissue, muscel Post-Operative Diagnosis: Same as Pre-op Surgeon: Felipe Rivers PER ID Code(s): L89.90 - PRESSURE ULCER OF UNSPECIFIED SITE, UNSPECIFIED STAGE (2) Anemia Assessment/Plan: MONITOR S/P TRANSFUSION Laboratory Tests 07/07/16 07/08/16 05:25 05:35 Hgb 8.4 L 8.8 L Code(s): D64.9 - ANEMIA, UNSPECIFIED (3) Diabetes Assessment/Plan: MONITOR B/S ENDO CONSULT SS/ Laboratory Tests 07/08/16 07/08/16 07/08/16 11:26 17:55 23:01 POC Glucometer 292 173 194 07/09/16 05:41 POC Glucometer 241 Code(s): E11.9 - TYPE 2 DIABETES MELLITUS WITHOUT COMPLICATIONS (4) S/P bilateral below knee amputation Assessment/Plan: MONITOR Code(s): Z89.512 - ACQUIRED ABSENCE OF LEFT LEG BELOW KNEE Z89.511 - ACQUIRED ABSENCE OF RIGHT LEG BELOW KNEE (5) DVT, bilateral lower limbs Code(s): I82.403 - ACUTE EMBOLISM AND THOMBOS UNSP DEEP VEINS OF LOW EXTRM, BI (6) UTI (urinary tract infection) Code(s): N39.0 - URINARY TRACT INFECTION, SITE NOT SPECIFIED Qualifiers: Qualified Code(s): N30.00 - Acute cystitis without hematuria (7) Pneumonia Assessment/Plan: F/U CXR NOTED-- PNA ABX CT Code(s): J18.9 - PNEUMONIA, UNSPECIFIED ORGANISM Qualifiers: Qualified Code(s): J18.1 - Lobar pneumonia, unspecified organism (8) CKD (chronic kidney disease) Assessment/Plan: MONITOR IMPROVING Laboratory Tests 07/01/16 07/05/16 01:45 05:25 Creatinine 2.2 H 0.5 L D Code(s): N18.9 - CHRONIC KIDNEY DISEASE, UNSPECIFIED Assessment/Plan 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
[2016-07-10 09:02] LABS: ALLENS TEST POSITIVE; ART PUNCT SITE RIGHT RADIAL; ARTERIAL BLD GAS O2 SATURATION 95.2 % (90-98.9); ARTERIAL BLOOD GAS BASE EXCESS 4.9 meq/l (-2-2); ARTERIAL BLOOD GAS HCO3 28.4 meq/L (22-26); ARTERIAL BLOOD GAS pH 7.48 (7.35-7.45); LPM/O2% 5L; PT. ON O2? YES
[2016-07-10 09:03] LABS: ARTERIAL BLOOD GAS PO2 69.8 mmHg (70-100); TYPE OF O2 NASAL O2
[2016-07-10] MEDS: FLUCONAZOLE 200 MG/NS 100 ML IVPB SCH (10:23)
[2016-07-10] MEDS: AMINO ACIDS/PROTEIN HYDROLYS 30 ML LIQUID.PKT NGT SCH ×2 (10:24→18:48)
[2016-07-10] MEDS: COLLAGENASE CLOSTRIDIUM HIST. 30 GRAMS TUBE TP SCH (10:24)
[2016-07-10] MEDS: PANTOPRAZOLE 20 MG TABLET (FP) PO SCH (10:40)
[2016-07-10] MEDS: SODIUM CHLORIDE 0.45%/POT 1,000 ML IV SCH (10:40)
[2016-07-10] MEDS: OLANZapine 5 MG TABLET PO SCH ×2 (10:40→22:05)
[2016-07-10] MEDS: METOPROLOL TARTRATE 50 MG TABLET (FP) PO SCH ×2 (10:40→22:04)
[2016-07-10] MEDS: SODIUM BICARBONATE 650 MG TABLET PO SCH ×2 (10:40→22:04)
[2016-07-10] MEDS: TAMSULOSIN HCL 0.4 MG CAP.ER.24H (FP) PO SCH (10:40)
[2016-07-10] MEDS: ZINC SULFATE 220 MG CAPSULE (FP) NGT SCH (10:40)
--- NOTE | 2016-07-10 11:21 | PN ---
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, Physician Chief Complaint: ID Given Vancomycin and Zosyn Fluconazole Febrile cource continues - Current Medication List Current Medications: Active Medications Acetaminophen (Ofirmev Injection -) 1,000 mg IVPB Q6H PRN Acetaminophen (Tylenol Suppository -) 650 mg [place] Q6H PRN PRN Reason: FEVER OR PAIN Last Admin: 07/09/16 23:42 Dose: 650 mg Albuterol Sulfate (Ventolin 0.083% Nebulizer Soln -) 1 amp NEB QIDR [facility] Last Admin: 07/10/16 05:49 Dose: 1 amp Amino Acids (Prosource No Carb Liquid Pkt) 30 ml NGT BID@0800,1730 [facility] Last Admin: 07/10/16 10:24 Dose: Not Given Ascorbic Acid (Vitamin C Oral Solution -) 500 mg NGT TID [facility] Last Admin: 07/10/16 06:02 Dose: 500 mg Atorvastatin Calcium (Lipitor -) 10 mg NGT HS [facility] Last Admin: 07/09/16 22:58 Dose: 10 mg Collagenase (Santyl -) 1 applic TP DAILY [facility] Last Admin: 07/10/16 10:24 Dose: Not Given Fluconazole (Diflucan 200 Mg/Ns Premixed Ivpb -) 100 mls @ 100 mls/hr IVPB DAILY [facility] Last Admin: 07/10/16 10:23 Dose: 100 mls/hr Potassium Chloride/Sodium Chloride (1/2ns+20meq Kcl) 1,000 mls @ 83 mls/hr IV ASDIR [facility] Last Admin: 07/10/16 10:40 Dose: 83 mls/hr Ibuprofen (Caldolor Injection -) 400 mg IVPB Q6H PRN PRN Reason: FEVER Last Admin: 07/10/16 03:36 Dose: 400 mg Insulin Aspart (Novolog Vial Sliding Scale -) 1 vial SQ ACHS [facility]ARRY PRN Reason: Protocol Last Admin: 07/10/16 06:02 Dose: 2 units Ipratropium [place] (Atrovent 0.02% Nebulizer -) 1 amp NEB Q6HPO [facility] Last Admin: 07/10/16 05:49 Dose: 1 amp Metoprolol Tartrate (Lopressor -) 50 mg PO BID [facility] Last Admin: 07/10/16 10:40 Dose: 50 mg Mirtazapine (Remeron -) 30 mg PO HS [facility] Last Admin: 07/09/16 22:58 Dose: 30 mg Olanzapine (Zyprexa -) 5 mg PO BID [facility] Last Admin: 07/10/16 10:40 Dose: 5 mg Pantoprazole Sodium (Protonix -) 20 mg PO DAILY [facility] Last Admin: 07/10/16 10:40 Dose: 20 mg Piperacillin Sod/Tazobactam Sod (Zosyn 3.375gm Ivpb (Pre-Docked)) 3.375 gm IVPB Q8H-IV [facility] PRN Reason: Protocol Last Admin: 07/10/16 10:23 Dose: 3.375 gm Senna (Senna -) 1 tab PO HS [facility] Last Admin: 07/09/16 22:58 Dose: 1 tab Sodium Bicarbonate (Sodium Bicarbonate -) 650 mg PO BID [facility] Last Admin: 07/10/16 10:40 Dose: 650 mg Tamsulosin HCl (Flomax -) 0.4 mg PO DAILY@0830 [facility] Last Admin: 07/10/16 10:40 Dose: 0.4 mg Zinc Sulfate (Orazinc -) 220 mg NGT DAILY [facility] Last Admin: 07/10/16 10:40 Dose: 220 mg - Objective Vital Signs: Vital Signs Temperature 99.9 F H 07/10/16 08:00 Pulse Rate 102 H 07/10/16 08:00 Respiratory Rate 20 07/10/16 08:00 Blood Pressure 132/66 07/10/16 08:00 O2 Sat by Pulse Oximetry (%) 90 L 07/10/16 06:00 Constitutional: Yes: No Distress Neck: Yes: WNL, Supple Cardiovascular: Yes: S1, S2 Respiratory: Yes: Diminished Gastrointestinal: Yes: Soft. No: Tenderness Extremities: Yes: Other (Amputations) Labs: CBC, BMP 07/10/16 06:05 07/10/16 06:05 INR, PTT INR 1.08 (0.82-1.09) 07/01/16 01:45 Assessment/Plan Microbiology Laboratory Tests 07/10/16 07/10/16 07/10/16 06:05 06:05 08:55 WBC 14.3 H D Hgb 7.9 L Plt Count 326 ABG pH 7.48 H ABG pCO2 at Pt Temp 38.9 ABG pO2 at Pt Temp 69.8 L D O2 Delivery Device Nasal o2 BUN 16 D Creatinine 0.8 Assessment FUO Plan Empiric antibiotics for now ESR CRP Consider CT imaging of chest kaycee Galaviz MD
--- NOTE | 2016-07-10 11:26 | PN ---
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 (short form) - Note 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: Renal Follow up for Hypernatremia Pt seen and examined at the bedside lethargic on IVF started this am Vital Signs Temperature 99.9 F H 07/10/16 08:00 Pulse Rate 102 H 07/10/16 08:00 Respiratory Rate 20 07/10/16 08:00 Blood Pressure 132/66 07/10/16 08:00 O2 Sat by Pulse Oximetry (%) 90 L 07/10/16 06:00 Intake & Output 07/07/16 07/08/16 07/09/16 07/10/16 23:59 23:59 23:59 23:59 Intake Total 896 234 6660 Output Total 750 555 850 300 Balance 046 397 5960 -300 Weight 109 lb 5.588 oz Gen: on NC O2 CVS: RRR, No M/R Lungs: Dec BS, no rales Abd: soft NT/ND Ext: s/p B/L BKA, trace sacral edema, 1+ Ue edema : conley in place with yellow urine CBC, BMP 07/10/16 06:05 07/10/16 06:05 Current Medications Acetaminophen (Ofirmev Injection -) 1,000 mg IVPB Q6H PRN Acetaminophen (Tylenol Suppository -) 650 mg [place] Q6H PRN PRN Reason: FEVER OR PAIN Last Admin: 07/09/16 23:42 Dose: 650 mg Albuterol Sulfate (Ventolin 0.083% Nebulizer Soln -) 1 amp NEB QIDR [facility] Last Admin: 07/10/16 05:49 Dose: 1 amp Amino Acids (Prosource No Carb Liquid Pkt) 30 ml NGT BID@0800,1730 [facility] Last Admin: 07/10/16 10:24 Dose: Not Given Ascorbic Acid (Vitamin C Oral Solution -) 500 mg NGT TID [facility] Last Admin: 07/10/16 06:02 Dose: 500 mg Atorvastatin Calcium (Lipitor -) 10 mg NGT HS [facility] Last Admin: 07/09/16 22:58 Dose: 10 mg Collagenase (Santyl -) 1 applic TP DAILY [facility] Last Admin: 07/10/16 10:24 Dose: Not Given Fluconazole (Diflucan 200 Mg/Ns Premixed Ivpb -) 100 mls @ 100 mls/hr IVPB DAILY [facility] Last Admin: 07/10/16 10:23 Dose: 100 mls/hr Potassium Chloride/Sodium Chloride (1/2ns+20meq Kcl) 1,000 mls @ 83 mls/hr IV ASDIR [facility] Last Admin: 07/10/16 10:40 Dose: 83 mls/hr Ibuprofen (Caldolor Injection -) 400 mg IVPB Q6H PRN PRN Reason: FEVER Last Admin: 07/10/16 03:36 Dose: 400 mg Insulin Aspart (Novolog Vial Sliding Scale -) 1 vial SQ ACHS [facility]ARRY PRN Reason: Protocol Last Admin: 07/10/16 06:02 Dose: 2 units Ipratropium [place] (Atrovent 0.02% Nebulizer -) 1 amp NEB Q6HPO [facility] Last Admin: 07/10/16 05:49 Dose: 1 amp Metoprolol Tartrate (Lopressor -) 50 mg PO BID [facility] Last Admin: 07/10/16 10:40 Dose: 50 mg Mirtazapine (Remeron -) 30 mg PO HS [facility] Last Admin: 07/09/16 22:58 Dose: 30 mg Olanzapine (Zyprexa -) 5 mg PO BID [facility] Last Admin: 07/10/16 10:40 Dose: 5 mg Pantoprazole Sodium (Protonix -) 20 mg PO DAILY [facility] Last Admin: 07/10/16 10:40 Dose: 20 mg Piperacillin Sod/Tazobactam Sod (Zosyn 3.375gm Ivpb (Pre-Docked)) 3.375 gm IVPB Q8H-IV [facility] PRN Reason: Protocol Last Admin: 07/10/16 10:23 Dose: 3.375 gm Senna (Senna -) 1 tab PO HS [facility] Last Admin: 07/09/16 22:58 Dose: 1 tab Sodium Bicarbonate (Sodium Bicarbonate -) 650 mg PO BID [facility] Last Admin: 07/10/16 10:40 Dose: 650 mg Tamsulosin HCl (Flomax -) 0.4 mg PO DAILY@0830 [facility] Last Admin: 07/10/16 10:40 Dose: 0.4 mg Zinc Sulfate (Orazinc -) 220 mg NGT DAILY [facility] Last Admin: 07/10/16 10:40 Dose: 220 mg A/P 80 year old woman with PMhx of Multiple GIANNI's, Hypernatremia, Hypertension, DM, HLD, GERD who presented from [place] with hypoxia and found to have Septic shock from UTI/Infected Sacral Decubitis Ulcers with GIANNI with Cr of 2.2 and worsening hypernatremia. #Hypernatremia serum Na uptrending started on hypotonic saline pt with increased insensable losses in setting of fever/infection trend na daily if pt shows signs of congestion can d/c 1/2NS and start D5W at lower rate #Septic Shock/UTI/Infected Sacral Decubitis Ulcers Abx as per ID Bp stable at htis time #Anemia Requiring Transfusion trend CBC transfuse as needed #Hypophosphatemia PO Neutra phos x 6 trend daily phos Thank you Vahid Manzano DO
--- NOTE | 2016-07-10 12:57 | PN ---
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, Physician Chief Complaint: lethargic History of Present Illness: 80F OMS, NHR, HTN, DM, CKD, GIANNI, GERD, CVA bilateral BKA, COPD admitted 06/30/16 fever sepsis with shock due to UTI and infected sacral decubitus ulcer. Was on pressors but now tapered off. Getting broad spectrum abx. Underwent debridement. Also found with bilateral DVT. On lovenox. Now held pending further debridement. lethargic, still febrile. Echocardiogram 07/01/16 normal Ef moderate aortic sclerosis. Telemetry 07/07/16 brief NSVT. None further. - Current Medication List Current Medications: Active Medications Acetaminophen (Ofirmev Injection -) 1,000 mg IVPB Q6H PRN Acetaminophen (Tylenol Suppository -) 650 mg [place] Q6H PRN PRN Reason: FEVER OR PAIN Last Admin: 07/09/16 23:42 Dose: 650 mg Albuterol Sulfate (Ventolin 0.083% Nebulizer Soln -) 1 amp NEB QIDR [facility] Last Admin: 07/10/16 11:45 Dose: 1 amp Amino Acids (Prosource No Carb Liquid Pkt) 30 ml NGT BID@0800,1730 [facility] Last Admin: 07/10/16 10:24 Dose: Not Given Ascorbic Acid (Vitamin C Oral Solution -) 500 mg NGT TID [facility] Last Admin: 07/10/16 06:02 Dose: 500 mg Atorvastatin Calcium (Lipitor -) 10 mg NGT HS [facility] Last Admin: 07/09/16 22:58 Dose: 10 mg Collagenase (Santyl -) 1 applic TP DAILY [facility] Last Admin: 07/10/16 10:24 Dose: Not Given Fluconazole (Diflucan 200 Mg/Ns Premixed Ivpb -) 100 mls @ 100 mls/hr IVPB DAILY [facility] Last Admin: 07/10/16 10:23 Dose: 100 mls/hr Potassium Chloride/Sodium Chloride (1/2ns+20meq Kcl) 1,000 mls @ 83 mls/hr IV ASDIR [facility] Last Admin: 07/10/16 10:40 Dose: 83 mls/hr Ibuprofen (Caldolor Injection -) 400 mg IVPB Q6H PRN PRN Reason: FEVER Last Admin: 07/10/16 03:36 Dose: 400 mg Insulin Aspart (Novolog Vial Sliding Scale -) 1 vial SQ ACHS [facility]ARRY PRN Reason: Protocol Last Admin: 07/10/16 12:17 Dose: 2 units Ipratropium [place] (Atrovent 0.02% Nebulizer -) 1 amp NEB Q6HPO [facility] Last Admin: 07/10/16 11:44 Dose: 1 amp Metoprolol Tartrate (Lopressor -) 50 mg PO BID [facility] Last Admin: 07/10/16 10:40 Dose: 50 mg Mirtazapine (Remeron -) 30 mg PO HS [facility] Last Admin: 07/09/16 22:58 Dose: 30 mg Olanzapine (Zyprexa -) 5 mg PO BID [facility] Last Admin: 07/10/16 10:40 Dose: 5 mg Pantoprazole Sodium (Protonix -) 20 mg PO DAILY [facility] Last Admin: 07/10/16 10:40 Dose: 20 mg Piperacillin Sod/Tazobactam Sod (Zosyn 3.375gm Ivpb (Pre-Docked)) 3.375 gm IVPB Q8H-IV [facility] PRN Reason: Protocol Last Admin: 07/10/16 10:23 Dose: 3.375 gm Senna (Senna -) 1 tab PO HS [facility] Last Admin: 07/09/16 22:58 Dose: 1 tab Sodium Bicarbonate (Sodium Bicarbonate -) 650 mg PO BID [facility] Last Admin: 07/10/16 10:40 Dose: 650 mg Tamsulosin HCl (Flomax -) 0.4 mg PO DAILY@0830 [facility] Last Admin: 07/10/16 10:40 Dose: 0.4 mg Zinc Sulfate (Orazinc -) 220 mg NGT DAILY [facility] Last Admin: 07/10/16 10:40 Dose: 220 mg - Objective Vital Signs: Vital Signs Temperature 99.9 F H 07/10/16 08:00 Pulse Rate 102 H 07/10/16 08:00 Respiratory Rate 20 07/10/16 08:00 Blood Pressure 132/66 07/10/16 08:00 O2 Sat by Pulse Oximetry (%) 90 L 07/10/16 06:00 Eyes: Yes: WNL, Conjunctiva Clear HENT: Yes: WNL, Atraumatic, Normocephalic Neck: Yes: WNL, Supple, Trachea Midline Cardiovascular: Yes: WNL, Regular Rate and Rhythm Respiratory: Yes: WNL, Regular, CTA Bilaterally, Poor Air Entry, Wheezes Gastrointestinal: Yes: WNL, Normal Bowel Sounds Musculoskeletal: Yes: WNL Extremities: Yes: WNL Edema: No Integumentary: Yes: WNL Neurological: Yes: WNL, Alert, Oriented ...Motor Strength: WNL Psychiatric: Yes: WNL Labs: CBC, BMP 07/10/16 06:05 07/10/16 06:05 INR, PTT INR 1.08 (0.82-1.09) 07/01/16 01:45 Assessment/Plan Tachycardia on telemetry is severe sinus tachycardia, now improved, due to DVT possible PE, sepsis, and metabolic stress of infection. This is a "noncardiac arrhythmia" the treatment of which is to control the noncardiac causes. Not in CHF. continue low dose beta leticia, avoid stimulants, continue abx. continue lovenox for dvt. will be appropriate candidate for novel anticoagulant when stable for dc and no further procedures needed. She has no cardiac contraindications to further debridement surgery. Medically optimized. She is at low to intermediate risk of periop events but the benefits of infection treatment outweigh the risks. No treatment is needed for NSVT in the setting of sepsis and normal EF on echocardiogram. Goals of care should be addressed as well for more involved issues. Will follow with you.
--- NOTE | 2016-07-10 13:17 | PN ---
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 (short form) - Note 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: PULMONARY Somnolent but arousable. Remains febrile. Last Vital Signs Temp Pulse Resp BP Pulse Ox 99.9 F H 102 H 20 132/66 90 L 07/10/16 08:00 07/10/16 08:00 07/10/16 08:00 07/10/16 08:00 07/10/16 06:00 Gen: somnolent Heart: RRR Lung: scattered rhonchi Abd: soft, nontender Ext: bilateral BKA CBC, BMP 07/10/16 06:05 07/10/16 06:05 Active Medications Acetaminophen (Ofirmev Injection -) 1,000 mg IVPB Q6H PRN Acetaminophen (Tylenol Suppository -) 650 mg [place] Q6H PRN PRN Reason: FEVER OR PAIN Last Admin: 07/09/16 23:42 Dose: 650 mg Albuterol Sulfate (Ventolin 0.083% Nebulizer Soln -) 1 amp NEB QIDR [facility] Last Admin: 07/10/16 11:45 Dose: 1 amp Amino Acids (Prosource No Carb Liquid Pkt) 30 ml NGT BID@0800,1730 [facility] Last Admin: 07/10/16 10:24 Dose: Not Given Ascorbic Acid (Vitamin C Oral Solution -) 500 mg NGT TID [facility] Last Admin: 07/10/16 06:02 Dose: 500 mg Atorvastatin Calcium (Lipitor -) 10 mg NGT HS [facility] Last Admin: 07/09/16 22:58 Dose: 10 mg Collagenase (Santyl -) 1 applic TP DAILY [facility] Last Admin: 07/10/16 10:24 Dose: Not Given Fluconazole (Diflucan 200 Mg/Ns Premixed Ivpb -) 100 mls @ 100 mls/hr IVPB DAILY [facility] Last Admin: 07/10/16 10:23 Dose: 100 mls/hr Potassium Chloride/Sodium Chloride (1/2ns+20meq Kcl) 1,000 mls @ 83 mls/hr IV ASDIR [facility] Last Admin: 07/10/16 10:40 Dose: 83 mls/hr Ibuprofen (Caldolor Injection -) 400 mg IVPB Q6H PRN PRN Reason: FEVER Last Admin: 07/10/16 03:36 Dose: 400 mg Insulin Aspart (Novolog Vial Sliding Scale -) 1 vial SQ ACHS [facility] PRN Reason: Protocol Last Admin: 07/10/16 12:17 Dose: 2 units Ipratropium [place] (Atrovent 0.02% Nebulizer -) 1 amp NEB Q6HPO [facility] Last Admin: 07/10/16 11:44 Dose: 1 amp Metoprolol Tartrate (Lopressor -) 50 mg PO BID [facility] Last Admin: 07/10/16 10:40 Dose: 50 mg Mirtazapine (Remeron -) 30 mg PO HS [facility] Last Admin: 07/09/16 22:58 Dose: 30 mg Olanzapine (Zyprexa -) 5 mg PO BID [facility] Last Admin: 07/10/16 10:40 Dose: 5 mg Pantoprazole Sodium (Protonix -) 20 mg PO DAILY [facility] Last Admin: 07/10/16 10:40 Dose: 20 mg Piperacillin Sod/Tazobactam Sod (Zosyn 3.375gm Ivpb (Pre-Docked)) 3.375 gm IVPB Q8H-IV [facility] PRN Reason: Protocol Last Admin: 07/10/16 10:23 Dose: 3.375 gm Senna (Senna -) 1 tab PO HS [facility] Last Admin: 07/09/16 22:58 Dose: 1 tab Sodium Bicarbonate (Sodium Bicarbonate -) 650 mg PO BID [facility] Last Admin: 07/10/16 10:40 Dose: 650 mg Tamsulosin HCl (Flomax -) 0.4 mg PO DAILY@0830 [facility] Last Admin: 07/10/16 10:40 Dose: 0.4 mg Zinc Sulfate (Orazinc -) 220 mg NGT DAILY [facility] Last Admin: 07/10/16 10:40 Dose: 220 mg A/P Acute Hypoxic Respiratory Failure improving UTI Sacral Decubitus Ulcer Infection Septic Shock resolving Lactic Acidosis improved Acute Kidney Injury resolving Bilateral DVTs HTN DM Dementia - continue antibiotics - wound care - continue free water replacement - monitor urine output, creatinine - glucose control - BiPAP as needed to assist in work of breathing - titrate FiO2 to keep SpO2 >90% - aspiration precautions - DVT/GI prophylaxis
[2016-07-10] MEDS: ACETAMINOPHEN 650 MG SUPP.RECT PR PRN (14:00)
[2016-07-10] MEDS: MIRTAZAPINE 30 MG TABLET (FP) PO SCH (22:04)
[2016-07-10] MEDS: ATORVASTATIN CA 10 MG TABLET (FP) NGT SCH (22:04)
[2016-07-10] MEDS: SENNOSIDES 8.6MG TABLET (FP) PO SCH (22:04)
[2016-07-11] MEDS ORDERED: ACETAMINOPHEN 325 MG TABLET (FP) PO PRN (01:03)
[2016-07-11] MEDS: PIPERACILLIN/TAZOB 3.375 GM/50 ML PRE-DOCKED IVPB SCH ×3 (01:27→18:18)
[2016-07-11] MEDS: ASCORBIC ACID 500 MG/5 ML UNIT DOSE CUP NGT SCH ×3 (05:53→22:20)
[2016-07-11] MEDS ORDERED: INSULIN SLIDING SCALE (NOVOLOG) 1 VIAL SQ SCH (07:00)
[2016-07-11] MEDS: IPRATROPIUM BR 0.02% 0.5 MG/2.5 ML VIAL.NEB. NEB SCH ×3 (07:05→18:07)
[2016-07-11] MEDS: ALBUTEROL SO4 0.083% IH SOL 2.5 MG/3 ML VIAL.NEB. NEB SCH ×3 (07:05→18:04)
[2016-07-11] MEDS: INSULIN SLIDING SCALE (NOVOLOG) 1 VIAL SQ SCH ×4 (07:33→22:20)
[2016-07-11] MEDS: FERROUS SO4 325 MG TABLET (FP) PO SCH ×3 (08:41→16:58)
[2016-07-11] MEDS: TAMSULOSIN HCL 0.4 MG CAP.ER.24H (FP) PO SCH (08:41)
[2016-07-11 08:43] LABS: BASOPHIL 0.2 % (0-2.0); EOSINOPHIL 2.1 % (0-4.5); MCH 30.4 pg (25.7-33.7); MEAN PLT VOLUME 8.1 fl (7.5-11.1); NEUTROPHILS 75.2 % (42.8-82.8); PLATELET COUNT 330 K/MM3 (134-434); RDW 16.4 % (11.6-15.6); WHITE BLOOD COUNT 8.6 K/mm3 (4.0-10.0)
[2016-07-11] MEDS: PROCHLORPERAZINE MALEATE 5 MG TABLET PO SCH ×2 (09:03→22:20)
[2016-07-11] MEDS: OLANZapine 5 MG TABLET PO SCH ×2 (09:03→22:20)
[2016-07-11] MEDS: ESCITALOPRAM OXALATE 10 MG TABLET (FP) PO SCH (09:03)
[2016-07-11] MEDS: SODIUM BICARBONATE 650 MG TABLET PO SCH ×2 (09:03→22:20)
[2016-07-11] MEDS: METOPROLOL TARTRATE 50 MG TABLET (FP) PO SCH ×2 (09:03→22:20)
[2016-07-11] MEDS: PANTOPRAZOLE 20 MG TABLET (FP) PO SCH (09:03)
[2016-07-11] MEDS: SODIUM CHLORIDE 0.45%/POT 1,000 ML IV SCH ×2 (09:12→22:19)
[2016-07-11 09:34] LABS: ALBUMIN 1.4 g/dl (3.4-5.0); ALK PHOS 90 U/L (45-117); ANION GAP 7 (8-16); BILIRUBIN,TOTAL 0.4 mg/dL (0.2-1.0); CALCIUM 7.9 mg/dL (8.5-10.1); CO2 28 mmol/L (21-32); CREATININE 0.6 mg/dL (0.55-1.02); GLUCOSE,RANDOM 156 mg/dL (74-106); LDH 147 U/L (84-246); MAGNESIUM 2.1 mg/dL (1.8-2.4); PHOSPHOROUS 2.6 mg/dL (2.5-4.9); SGOT/AST 10 U/L (15-37); SGPT/ALT 9 U/L (12-78); TOT PROT 5.7 g/dl (6.4-8.2)
[2016-07-11] MEDS: AMINO ACIDS/PROTEIN HYDROLYS 30 ML LIQUID.PKT NGT SCH ×2 (09:52→16:59)
[2016-07-11] MEDS: INSULIN DETEMIR 100 UNITS/ML MDV SQ SCH (09:53)
[2016-07-11] MEDS ORDERED: PT OWN MED DRAWER 7, Y5N ONE (09:57)
[2016-07-11] MEDS: FLUCONAZOLE 200 MG/NS 100 ML IVPB SCH (09:59)
[2016-07-11] MEDS: ZINC SULFATE 220 MG CAPSULE (FP) NGT SCH (09:59)
[2016-07-11] MEDS: COLLAGENASE CLOSTRIDIUM HIST. 30 GRAMS TUBE TP SCH (09:59)
[2016-07-11 10:49] LABS: C-REACTIVE PROTEIN 13.2 MG/DL (0.00-0.3)
--- NOTE | 2016-07-11 11:27 | PN ---
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, Physician - Current Medication List Current Medications: Active Medications Acetaminophen (Ofirmev Injection -) 1,000 mg IVPB Q6H PRN Acetaminophen (Tylenol Suppository -) 650 mg [place] Q6H PRN PRN Reason: FEVER OR PAIN Last Admin: 07/10/16 14:00 Dose: 650 mg Acetaminophen (Tylenol -) 650 mg PO Q4H PRN PRN Reason: PAIN Albuterol Sulfate (Ventolin 0.083% Nebulizer Soln -) 1 amp NEB QIDR [facility] Last Admin: 07/11/16 07:05 Dose: 1 amp Amino Acids (Prosource No Carb Liquid Pkt) 30 ml NGT BID@0800,1730 [facility] Last Admin: 07/11/16 09:52 Dose: Not Given Ascorbic Acid (Vitamin C Oral Solution -) 500 mg NGT TID [facility] Last Admin: 07/11/16 05:53 Dose: Not Given Atorvastatin Calcium (Lipitor -) 10 mg NGT HS [facility] Last Admin: 07/10/16 22:04 Dose: Not Given Collagenase (Santyl -) 1 applic TP DAILY [facility] Last Admin: 07/11/16 09:59 Dose: 1 applic Escitalopram Oxalate (Lexapro -) 10 mg PO DAILY [facility] Last Admin: 07/11/16 09:03 Dose: Not Given Ferrous Sulfate (Feosol -) 325 mg PO TIDCM [facility] Last Admin: 07/11/16 08:41 Dose: Not Given Fluconazole (Diflucan 200 Mg/Ns Premixed Ivpb -) 100 mls @ 100 mls/hr IVPB DAILY [facility] Last Admin: 07/11/16 09:59 Dose: 100 mls/hr Potassium Chloride/Sodium Chloride (1/2ns+20meq Kcl) 1,000 mls @ 83 mls/hr IV ASDIR [facility] Last Admin: 07/11/16 09:12 Dose: 83 mls/hr Ibuprofen (Caldolor Injection -) 400 mg IVPB Q6H PRN PRN Reason: FEVER Last Admin: 07/10/16 17:15 Dose: 400 mg Insulin Aspart (Novolog Vial Sliding Scale -) 1 vial SQ ACHS [facility] PRN Reason: Protocol Last Admin: 07/11/16 07:33 Dose: Not Given Insulin Aspart (Novolog Vial Sliding Scale -) 1 vial SQ ACHS [facility] PRN Reason: Protocol Insulin Detemir (Levemir Vial) 12 units SQ 0900 [facility] Last Admin: 07/11/16 09:53 Dose: Not Given Ipratropium [place] (Atrovent 0.02% Nebulizer -) 1 amp NEB Q6HPO [facility] Last Admin: 07/11/16 07:05 Dose: 1 amp Metoprolol Tartrate (Lopressor -) 50 mg PO BID [facility] Last Admin: 07/11/16 09:03 Dose: Not Given Mirtazapine (Remeron -) 30 mg PO [facility] Last Admin: 07/10/16 22:04 Dose: Not Given Non-Formulary Medication (Darbepoetin Joseph In Polysorbat [Aranesp]) 25 mcg SQ TH [facility] Olanzapine (Zyprexa -) 5 mg PO BID [facility] Last Admin: 07/11/16 09:03 Dose: Not Given Pantoprazole Sodium (Protonix -) 20 mg PO DAILY [facility] Last Admin: 07/11/16 09:03 Dose: Not Given Piperacillin Sod/Tazobactam Sod (Zosyn 3.375gm Ivpb (Pre-Docked)) 3.375 gm IVPB Q8H-IV [facility] PRN Reason: Protocol Last Admin: 07/11/16 09:51 Dose: 3.375 gm Prochlorperazine Maleate (Compazine -) 5 mg PO BID [facility] Last Admin: 07/11/16 09:03 Dose: Not Given Senna (Senna -) 1 tab PO [facility] Last Admin: 07/10/16 22:04 Dose: Not Given Sodium Bicarbonate (Sodium Bicarbonate -) 650 mg PO BID [facility] Last Admin: 07/11/16 09:03 Dose: Not Given Tamsulosin HCl (Flomax -) 0.4 mg PO DAILY@0830 [facility] Last Admin: 07/11/16 08:41 Dose: Not Given Zinc Sulfate (Orazinc -) 220 mg NGT DAILY [facility] Last Admin: 07/11/16 09:59 Dose: Not Given - Objective Vital Signs: Vital Signs Temperature 99.3 F 07/11/16 08:22 Pulse Rate 79 07/11/16 08:22 Respiratory Rate 18 07/11/16 08:39 Blood Pressure 153/69 07/11/16 08:22 O2 Sat by Pulse Oximetry (%) 99 07/11/16 06:26 Cardiovascular: Yes: S1, S2 Respiratory: Yes: Regular, CTA Bilaterally Gastrointestinal: Yes: Normal Bowel Sounds, Soft Extremities: Yes: Amputation Labs: CBC, BMP 07/11/16 06:20 07/11/16 06:20 INR, PTT INR 1.08 (0.82-1.09) 07/01/16 01:45 Problem List - Problems (1) Decubitus ulcer Assessment/Plan: Operative Date: 07/08/16 Pre-Operative Diagnosis: Sacral ulcer - necrotic Operation: Excisional debridment sacrum - skin, subucutaneous tissue, muscel Post-Operative Diagnosis: Same as Pre-op Surgeon: Felipe Rivers ABX PER ID Code(s): L89.90 - PRESSURE ULCER OF UNSPECIFIED SITE, UNSPECIFIED STAGE (2) Anemia Assessment/Plan: MONITOR S/P TRANSFUSION HEM CONSULT Code(s): D64.9 - ANEMIA, UNSPECIFIED (3) Diabetes Assessment/Plan: MONITOR B/S ENDO CONSULT SS/ Laboratory Tests 07/08/16 07/08/16 07/08/16 11:26 17:55 23:01 POC Glucometer 292 173 194 07/09/16 05:41 POC Glucometer 241 Code(s): E11.9 - TYPE 2 DIABETES MELLITUS WITHOUT COMPLICATIONS (4) S/P bilateral below knee amputation Assessment/Plan: MONITOR Code(s): Z89.512 - ACQUIRED ABSENCE OF LEFT LEG BELOW KNEE Z89.511 - ACQUIRED ABSENCE OF RIGHT LEG BELOW KNEE (5) DVT, bilateral lower limbs Assessment/Plan: ON HEPARIN DRIP--CHANGE TO LOVENOX Code(s): I82.403 - ACUTE EMBOLISM AND THOMBOS UNSP DEEP VEINS OF LOW EXTRM, BI (6) UTI (urinary tract infection) Assessment/Plan: ABX CULTURES ID ON BOARD Code(s): N39.0 - URINARY TRACT INFECTION, SITE NOT SPECIFIED Qualifiers: Qualified Code(s): N30.00 - Acute cystitis without hematuria (7) Pneumonia Assessment/Plan: F/U CXR NOTED-- PNA ABX CT Code(s): J18.9 - PNEUMONIA, UNSPECIFIED ORGANISM Qualifiers: Qualified Code(s): J18.1 - Lobar pneumonia, unspecified organism (8) CKD (chronic kidney disease) Assessment/Plan: MONITOR IMPROVING Laboratory Tests 07/01/16 07/05/16 01:45 05:25 Creatinine 2.2 H 0.5 L D Code(s): N18.9 - CHRONIC KIDNEY DISEASE, UNSPECIFIED
--- NOTE | 2016-07-11 11:57 | PN ---
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, Physician Chief Complaint: lethargic Telemetry PVC's, sinus tachycardia, brief self terminating runs of atrial tachycardia. History of Present Illness: 80F OMS, NHR, HTN, DM, CKD, GIANNI, GERD, CVA bilateral BKA, COPD admitted 06/30/16 fever sepsis with shock due to UTI and infected sacral decubitus ulcer. Was on pressors but now tapered off. Getting broad spectrum abx. Underwent debridement. Also found with bilateral DVT. On lovenox. Now held pending further debridement. lethargic, still febrile. Echocardiogram 07/01/16 normal Ef moderate aortic sclerosis. Telemetry 07/07/16 brief NSVT. None further. - Current Medication List Current Medications: Active Medications Acetaminophen (Ofirmev Injection -) 1,000 mg IVPB Q6H PRN Acetaminophen (Tylenol Suppository -) 650 mg [place] Q6H PRN PRN Reason: FEVER OR PAIN Last Admin: 07/10/16 14:00 Dose: 650 mg Acetaminophen (Tylenol -) 650 mg PO Q4H PRN PRN Reason: PAIN Albuterol Sulfate (Ventolin 0.083% Nebulizer Soln -) 1 amp NEB QIDR [facility] Last Admin: 07/11/16 07:05 Dose: 1 amp Amino Acids (Prosource No Carb Liquid Pkt) 30 ml NGT BID@0800,1730 [facility] Last Admin: 07/11/16 09:52 Dose: Not Given Ascorbic Acid (Vitamin C Oral Solution -) 500 mg NGT TID [facility] Last Admin: 07/11/16 05:53 Dose: Not Given Atorvastatin Calcium (Lipitor -) 10 mg NGT HS [facility] Last Admin: 07/10/16 22:04 Dose: Not Given Collagenase (Santyl -) 1 applic TP DAILY [facility] Last Admin: 07/11/16 09:59 Dose: 1 applic Escitalopram Oxalate (Lexapro -) 10 mg PO DAILY [facility] Last Admin: 07/11/16 09:03 Dose: Not Given Ferrous Sulfate (Feosol -) 325 mg PO TIDCM [facility] Last Admin: 07/11/16 08:41 Dose: Not Given Fluconazole (Diflucan 200 Mg/Ns Premixed Ivpb -) 100 mls @ 100 mls/hr IVPB DAILY [facility] Last Admin: 07/11/16 09:59 Dose: 100 mls/hr Potassium Chloride/Sodium Chloride (1/2ns+20meq Kcl) 1,000 mls @ 83 mls/hr IV ASDIR [facility] Last Admin: 07/11/16 09:12 Dose: 83 mls/hr Ibuprofen (Caldolor Injection -) 400 mg IVPB Q6H PRN PRN Reason: FEVER Last Admin: 07/10/16 17:15 Dose: 400 mg Insulin Aspart (Novolog Vial Sliding Scale -) 1 vial SQ ACHS [facility] PRN Reason: Protocol Last Admin: 07/11/16 07:33 Dose: Not Given Insulin Aspart (Novolog Vial Sliding Scale -) 1 vial SQ ACHS [facility] PRN Reason: Protocol Insulin Detemir (Levemir Vial) 12 units SQ 0900 [facility] Last Admin: 07/11/16 09:53 Dose: Not Given Ipratropium [place] (Atrovent 0.02% Nebulizer -) 1 amp NEB Q6HPO [facility] Last Admin: 07/11/16 07:05 Dose: 1 amp Metoprolol Tartrate (Lopressor -) 50 mg PO BID [facility] Last Admin: 07/11/16 09:03 Dose: Not Given Mirtazapine (Remeron -) 30 mg PO HS [facility] Last Admin: 07/10/16 22:04 Dose: Not Given Non-Formulary Medication (Darbepoetin Joseph In Polysorbat [Aranesp]) 25 mcg SQ TH [facility] Olanzapine (Zyprexa -) 5 mg PO BID [facility] Last Admin: 07/11/16 09:03 Dose: Not Given Pantoprazole Sodium (Protonix -) 20 mg PO DAILY [facility] Last Admin: 07/11/16 09:03 Dose: Not Given Piperacillin Sod/Tazobactam Sod (Zosyn 3.375gm Ivpb (Pre-Docked)) 3.375 gm IVPB Q8H-IV [facility] PRN Reason: Protocol Last Admin: 07/11/16 09:51 Dose: 3.375 gm Prochlorperazine Maleate (Compazine -) 5 mg PO BID [facility] Last Admin: 07/11/16 09:03 Dose: Not Given Senna (Senna -) 1 tab PO HS [facility] Last Admin: 07/10/16 22:04 Dose: Not Given Sodium Bicarbonate (Sodium Bicarbonate -) 650 mg PO BID [facility] Last Admin: 07/11/16 09:03 Dose: Not Given Tamsulosin HCl (Flomax -) 0.4 mg PO DAILY@0830 [facility] Last Admin: 07/11/16 08:41 Dose: Not Given Zinc Sulfate (Orazinc -) 220 mg NGT DAILY [facility] Last Admin: 07/11/16 09:59 Dose: Not Given - Objective Vital Signs: Vital Signs Temperature 99.3 F 07/11/16 08:22 Pulse Rate 79 07/11/16 08:22 Respiratory Rate 18 07/11/16 08:39 Blood Pressure 153/69 07/11/16 08:22 O2 Sat by Pulse Oximetry (%) 99 07/11/16 06:26 Constitutional: Yes: No Distress Eyes: Yes: WNL HENT: Yes: WNL Neck: Yes: WNL Cardiovascular: Yes: Tachycardia Respiratory: Yes: WNL Gastrointestinal: Yes: WNL Extremities: Yes: Amputation Edema: No Labs: CBC, BMP 07/11/16 06:20 07/11/16 06:20 INR, PTT INR 1.08 (0.82-1.09) 07/01/16 01:45 Assessment/Plan Tachycardia on telemetry is severe sinus tachycardia, now improved, due to DVT possible PE, sepsis, and metabolic stress of infection. This is a "noncardiac arrhythmia" the treatment of which is to control the noncardiac causes. Not in CHF. continue low dose beta leticia, avoid stimulants, continue abx. continue lovenox for dvt. will be appropriate candidate for novel anticoagulant when stable for dc and no further procedures needed. She has no cardiac contraindications to further debridement surgery. Medically optimized. She is at low to intermediate risk of periop events but the benefits of infection treatment outweigh the risks. No treatment is needed for NSVT or brief atrial tachycardia in the setting of sepsis and normal EF on echocardiogram. Will follow with you.
--- NOTE | 2016-07-11 13:06 | CONSULT ---
Consult - text type - Consultation Consultation Note: Hematology Consult Consult Specialty:: Hematology Referred by:: Dr Garcia Reason for Consultation:: Jerry positive anemia - History of Present Illness Chief Complaint: Anemia. unable to give hx. History of Present Illness: 80F OMS, NHR, HTN, DM, CKD, GIANNI, GERD, CVA bilateral BKA, COPD admitted 06/30/16 fever sepsis with shock due to UTI and infected sacral decubitus ulcer. She had septic shock on pressors , broad spectrum antibiocs and s/p debridment. She also had bilateral DVT and cureently on Lovenox. 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 Cardio/Vascular: Yes: CHF, HTN, Hyperlipdemia Pulmonary: Yes: COPD Gastrointestinal: Yes: GERD Renal/: Yes: Renal Inusuff Endocrine: Yes: Diabetes Mellitus - Alcohol/Substance Use Hx Alcohol Use: No - Smoking History Smoking history: Never smoked Have you smoked in the past 12 months: No Aproximately how many cigarettes per day: 0 - Social History Usual Living Arrangement: Custodial History of Recent Travel: No Home Medications - Allergies Allergies/Adverse Reactions: Allergies Allergy/AdvReac Type Severity Reaction Status Date / Time No Known Drug Allergies Allergy Verified 06/29/16 21:53 - Home Medications Home Medications: Ambulatory Orders Ascorbate Calcium [Vitamin C] 500 mg PO TID 03/24/16 Escitalopram Oxalate [Lexapro -] 10 mg PO DAILY 03/24/16 Metoprolol Succinate [Toprol XL -] 25 mg PO DAILY 03/24/16 Mirtazapine [Remeron -] 30 mg PO DAILY 03/24/16 Olanzapine [Zyprexa] 7.5 mg PO DAILY 03/24/16 Omeprazole 20 mg PO DAILY 03/24/16 Sennosides [Senna] 17.2 mg PO HS 03/24/16 Simvastatin 20 mg PO DAILY 03/24/16 Tamsulosin HCl [Flomax -] 0.8 mg PO DAILY 03/24/16 Vit B Cmplx 3/FA/Vit C/Biotin [Nephro-Rafael Rx Tablet] 1 each PO DAILY 03/24/16 Albuterol 2.5/Ipratropium 0.5 [Duoneb -] 1 amp NEB Q6H PRN #0 amp 04/20/16 Amino Acids/Protein Hydrolys [Prostat Sugar-Free Packet -] 30 ml PO BID@0800, 1730 packet 04/20/16 FENTANYL 12mcg PATCH [DURAGESIC 12mcg PATCH -] 1 patch TD Q72H patch.td72 MDD 1 04/20/16 Insulin Sliding Scale [Novolog Vial Sliding Scale -] 1 vial SQ ACHS units 04/20 Levofloxacin [Levaquin -] 250 mg PO DAILY tablet 04/20/16 Oxycodone HCl [Roxicodone -] 5 mg PO BID PRN #0 tablet MDD 2 04/20/16 Sodium Bicarbonate - 650 mg PO BID tablet 04/20/16 Zinc Sulfate [Orazinc -] 220 mg PO DAILY capsule 04/20/16 Acetaminophen [Tylenol] 650 mg PO Q4H PRN 06/30/16 Collagenase Clostridium Hist. [Santyl -] 1 applic TP DAILY 06/30/16 Darbepoetin Joseph in Polysorbat [Aranesp] 25 mcg SQ TH 06/30/16 Ferrous Sulfate [Feosol] 325 mg PO TID 06/30/16 Insulin Glargine,Hum.rec.anlog [Lantus Solostar PEN (NF)] 7 units SQ HS Insulin Glargine,Hum.rec.anlog [Lantus Solostar PEN (NF)] 12 units SQ 0900 06/30 Menthol/Zinc Oxide [Calmoseptine Ointment] 0 gm TP QID 06/30/16 Potassium Phosphate,Monobasic [K-Phos Original] 500 mg PO DAILY 06/30/16 Prochlorperazine Maleate [Compazine] 5 mg PO BID 06/30/16 Review of Systems Unable to obtain ROS, reason: dementia Vital Signs: Vital Signs Period Temp Pulse Resp BP Sys/Chávez Pulse Ox Last 24 Hr 98.7 F-99.8 F 79-100 18-18 110-153/55-73 95-99 Constitutional: Yes: No Distress, Non verbal, alert, Eyes: Yes: WNL, Conjunctiva Clear, EOM Intact HENT: Yes: WNL, Atraumatic, Normocephalic Neck: Yes: WNL, Supple, Trachea Midline Respiratory: Yes: Decreased breath sounds bilaterally Gastrointestinal: Yes: winces in pain on deep palapation Renal/: Yes: WNL Cardiovascular: Yes: Tachycardia Extremities: Yes: BKA Neurological: Yes: Confusion - Other Data Labs, Other Data: CBC, BMP 07/11/16 06:20 07/11/16 06:20 Imaging Assessment/Plan 80 yr old female with multiple comorbidities here with Jerry positive anemia. -I dont think hemolysis is the cause of anemia at this time. Her haptoglobin is pending but her LDH , indirect bilirubin is normal. The mild reticulocytosis can also be an appropriate response to her current degree of anemia rather than reflecting true hemolysis -If the haptoglobin is low or absent then some degree of hemolytic anemia is possible but to what extent it is contributing to her current anemia vs anemi of chronic disease would be unclear. -will continue to follow
--- NOTE | 2016-07-11 13:11 | PN ---
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 (short form) - Note 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: PULMONARY Somnolent but arousable. No fevers recorded. Last Vital Signs Temp Pulse Resp BP Pulse Ox 99.3 F 79 18 153/69 99 07/11/16 08:22 07/11/16 08:22 07/11/16 08:39 07/11/16 08:22 07/11/16 06:26 Gen: somnolent Heart: RRR Lung: scattered rhonchi Abd: soft, nontender Ext: bilateral BKA CBC, BMP 07/11/16 06:20 07/11/16 06:20 Active Medications Acetaminophen (Ofirmev Injection -) 1,000 mg IVPB Q6H PRN Acetaminophen (Tylenol Suppository -) 650 mg [place] Q6H PRN PRN Reason: FEVER OR PAIN Last Admin: 07/10/16 14:00 Dose: 650 mg Acetaminophen (Tylenol -) 650 mg PO Q4H PRN PRN Reason: PAIN Albuterol Sulfate (Ventolin 0.083% Nebulizer Soln -) 1 amp NEB QIDR [facility] Last Admin: 07/11/16 07:05 Dose: 1 amp Amino Acids (Prosource No Carb Liquid Pkt) 30 ml NGT BID@0800,1730 [facility] Last Admin: 07/11/16 09:52 Dose: Not Given Ascorbic Acid (Vitamin C Oral Solution -) 500 mg NGT TID [facility] Last Admin: 07/11/16 05:53 Dose: Not Given Atorvastatin Calcium (Lipitor -) 10 mg NGT HS [facility] Last Admin: 07/10/16 22:04 Dose: Not Given Collagenase (Santyl -) 1 applic TP DAILY [facility] Last Admin: 07/11/16 09:59 Dose: 1 applic Escitalopram Oxalate (Lexapro -) 10 mg PO DAILY [facility] Last Admin: 07/11/16 09:03 Dose: Not Given Ferrous Sulfate (Feosol -) 325 mg PO TIDCM [facility] Last Admin: 07/11/16 08:41 Dose: Not Given Fluconazole (Diflucan 200 Mg/Ns Premixed Ivpb -) 100 mls @ 100 mls/hr IVPB DAILY [facility] Last Admin: 07/11/16 09:59 Dose: 100 mls/hr Potassium Chloride/Sodium Chloride (1/2ns+20meq Kcl) 1,000 mls @ 83 mls/hr IV ASDIR [facility] Last Admin: 07/11/16 09:12 Dose: 83 mls/hr Ibuprofen (Caldolor Injection -) 400 mg IVPB Q6H PRN PRN Reason: FEVER Last Admin: 07/10/16 17:15 Dose: 400 mg Insulin Aspart (Novolog Vial Sliding Scale -) 1 vial SQ ACHS [facility] PRN Reason: Protocol Last Admin: 07/11/16 07:33 Dose: Not Given Insulin Aspart (Novolog Vial Sliding Scale -) 1 vial SQ ACHS [facility] PRN Reason: Protocol Insulin Detemir (Levemir Vial) 12 units SQ 0900 [facility] Last Admin: 07/11/16 09:53 Dose: Not Given Ipratropium [place] (Atrovent 0.02% Nebulizer -) 1 amp NEB Q6HPO [facility] Last Admin: 07/11/16 07:05 Dose: 1 amp Metoprolol Tartrate (Lopressor -) 50 mg PO BID [facility] Last Admin: 07/11/16 09:03 Dose: Not Given Mirtazapine (Remeron -) 30 mg PO HS [facility] Last Admin: 07/10/16 22:04 Dose: Not Given Non-Formulary Medication (Darbepoetin Joseph In Polysorbat [Aranesp]) 25 mcg SQ TH [facility] Olanzapine (Zyprexa -) 5 mg PO BID [facility] Last Admin: 07/11/16 09:03 Dose: Not Given Pantoprazole Sodium (Protonix -) 20 mg PO DAILY [facility] Last Admin: 07/11/16 09:03 Dose: Not Given Piperacillin Sod/Tazobactam Sod (Zosyn 3.375gm Ivpb (Pre-Docked)) 3.375 gm IVPB Q8H-IV [facility] PRN Reason: Protocol Last Admin: 07/11/16 09:51 Dose: 3.375 gm Prochlorperazine Maleate (Compazine -) 5 mg PO BID [facility] Last Admin: 07/11/16 09:03 Dose: Not Given Senna (Senna -) 1 tab PO HS [facility] Last Admin: 07/10/16 22:04 Dose: Not Given Sodium Bicarbonate (Sodium Bicarbonate -) 650 mg PO BID [facility] Last Admin: 07/11/16 09:03 Dose: Not Given Tamsulosin HCl (Flomax -) 0.4 mg PO DAILY@0830 [facility] Last Admin: 07/11/16 08:41 Dose: Not Given Zinc Sulfate (Orazinc -) 220 mg NGT DAILY [facility] Last Admin: 07/11/16 09:59 Dose: Not Given A/P Acute Hypoxic Respiratory Failure improving UTI Sacral Decubitus Ulcer Infection Septic Shock resolving Lactic Acidosis improved Acute Kidney Injury resolving Bilateral DVTs HTN DM Dementia - continue antibiotics - wound care - continue free water replacement - monitor urine output, creatinine - glucose control - BiPAP as needed to assist in work of breathing - titrate FiO2 to keep SpO2 >90% - aspiration precautions - DVT/GI prophylaxis
[2016-07-11] MEDS: IBUPROFEN 800 MG/8 ML IJ IVPB PRN (13:59)
[2016-07-11] MEDS: SENNOSIDES 8.6MG TABLET (FP) PO SCH (22:20)
[2016-07-11] MEDS: MIRTAZAPINE 30 MG TABLET (FP) PO SCH (22:20)
[2016-07-11] MEDS: ATORVASTATIN CA 10 MG TABLET (FP) NGT SCH (22:20)
[2016-07-12] MEDS: PIPERACILLIN/TAZOB 3.375 GM/50 ML PRE-DOCKED IVPB SCH ×2 (03:48→11:13)
[2016-07-12] MEDS: IPRATROPIUM BR 0.02% 0.5 MG/2.5 ML VIAL.NEB. NEB SCH ×4 (06:00→18:04)
[2016-07-12] MEDS: ALBUTEROL SO4 0.083% IH SOL 2.5 MG/3 ML VIAL.NEB. NEB SCH ×4 (06:00→18:04)
[2016-07-12] MEDS: ASCORBIC ACID 500 MG/5 ML UNIT DOSE CUP NGT SCH ×3 (06:42→22:32)
[2016-07-12] MEDS: INSULIN SLIDING SCALE (NOVOLOG) 1 VIAL SQ SCH ×4 (06:42→22:33)
[2016-07-12 07:12] LABS: BASOPHIL 0.6 % (0-2.0); EOSINOPHIL 2.8 % (0-4.5); MCH 30.2 pg (25.7-33.7); MCHC 33.3 g/dl (32.0-36.0); MEAN CELL VOLUME 90.6 fl (80-96); MEAN PLT VOLUME 8.1 fl (7.5-11.1); PLATELET COUNT 381 K/MM3 (134-434); RDW 16.9 % (11.6-15.6); WHITE BLOOD COUNT 8.8 K/mm3 (4.0-10.0)
[2016-07-12 07:46] LABS: ALBUMIN 1.6 g/dl (3.4-5.0); ALK PHOS 92 U/L (45-117); ANION GAP 8 (8-16); BILIRUBIN,TOTAL 0.7 mg/dL (0.2-1.0); CALCIUM 8.2 mg/dL (8.5-10.1); CO2 31 mmol/L (21-32); CREATININE 0.6 mg/dL (0.55-1.02); GLUCOSE,RANDOM 128 mg/dL (74-106); LDH 151 U/L (84-246); MAGNESIUM 1.9 mg/dL (1.8-2.4); PHOSPHOROUS 2.7 mg/dL (2.5-4.9); SGOT/AST 11 U/L (15-37); SGPT/ALT 7 U/L (12-78); TOT PROT 6.3 g/dl (6.4-8.2)
[2016-07-12] MEDS: FERROUS SO4 325 MG TABLET (FP) PO SCH ×2 (08:29→12:12)
[2016-07-12] MEDS: TAMSULOSIN HCL 0.4 MG CAP.ER.24H (FP) PO SCH (08:30)
[2016-07-12] MEDS: AMINO ACIDS/PROTEIN HYDROLYS 30 ML LIQUID.PKT NGT SCH (08:30)
--- NOTE | 2016-07-12 08:32 | PN ---
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, Physician History of Present Illness: poor oral intake - Current Medication List Current Medications: Active Medications Acetaminophen (Ofirmev Injection -) 1,000 mg IVPB Q6H PRN Acetaminophen (Tylenol Suppository -) 650 mg [place] Q6H PRN PRN Reason: FEVER OR PAIN Last Admin: 07/10/16 14:00 Dose: 650 mg Acetaminophen (Tylenol -) 650 mg PO Q4H PRN PRN Reason: PAIN Albuterol Sulfate (Ventolin 0.083% Nebulizer Soln -) 1 amp NEB QIDR [facility] Last Admin: 07/12/16 06:00 Dose: 1 amp Amino Acids (Prosource No Carb Liquid Pkt) 30 ml NGT BID@0800,1730 [facility] Last Admin: 07/11/16 16:59 Dose: Not Given Ascorbic Acid (Vitamin C Oral Solution -) 500 mg NGT TID [facility] Last Admin: 07/12/16 06:42 Dose: Not Given Atorvastatin Calcium (Lipitor -) 10 mg NGT HS [facility] Last Admin: 07/11/16 22:20 Dose: Not Given Collagenase (Santyl -) 1 applic TP DAILY [facility] Last Admin: 07/11/16 09:59 Dose: 1 applic Escitalopram Oxalate (Lexapro -) 10 mg PO DAILY [facility] Last Admin: 07/11/16 09:03 Dose: Not Given Ferrous Sulfate (Feosol -) 325 mg PO TIDCM [facility] Last Admin: 07/11/16 16:58 Dose: Not Given Fluconazole (Diflucan 200 Mg/Ns Premixed Ivpb -) 100 mls @ 100 mls/hr IVPB DAILY [facility] Last Admin: 07/11/16 09:59 Dose: 100 mls/hr Potassium Chloride/Sodium Chloride (1/2ns+20meq Kcl) 1,000 mls @ 83 mls/hr IV ASDIR [facility] Last Admin: 07/11/16 22:19 Dose: 83 mls/hr Ibuprofen (Caldolor Injection -) 400 mg IVPB Q6H PRN PRN Reason: FEVER Last Admin: 07/11/16 13:59 Dose: 400 mg Insulin Aspart (Novolog Vial Sliding Scale -) 1 vial SQ ACHS [facility] PRN Reason: Protocol Last Admin: 07/12/16 06:42 Dose: Not Given Insulin Detemir (Levemir Vial) 12 units SQ 0900 [facility] Last Admin: 07/11/16 09:53 Dose: Not Given Ipratropium [place] (Atrovent 0.02% Nebulizer -) 1 amp NEB Q6HPO [facility] Last Admin: 07/12/16 06:00 Dose: 1 amp Metoprolol Tartrate (Lopressor -) 50 mg PO BID [facility] Last Admin: 07/11/16 22:20 Dose: Not Given Mirtazapine (Remeron -) 30 mg PO HS [facility] Last Admin: 07/11/16 22:20 Dose: Not Given Non-Formulary Medication (Darbepoetin Joseph In Polysorbat [Aranesp]) 25 mcg SQ TH [facility] Olanzapine (Zyprexa -) 5 mg PO BID [facility] Last Admin: 07/11/16 22:20 Dose: Not Given Pantoprazole Sodium (Protonix -) 20 mg PO DAILY [facility] Last Admin: 07/11/16 09:03 Dose: Not Given Piperacillin Sod/Tazobactam Sod (Zosyn 3.375gm Ivpb (Pre-Docked)) 3.375 gm IVPB Q8H-IV [facility] PRN Reason: Protocol Last Admin: 07/12/16 03:48 Dose: 3.375 gm Prochlorperazine Maleate (Compazine -) 5 mg PO BID [facility] Last Admin: 07/11/16 22:20 Dose: Not Given Senna (Senna -) 1 tab PO [facility] Last Admin: 07/11/16 22:20 Dose: Not Given Sodium Bicarbonate (Sodium Bicarbonate -) 650 mg PO BID [facility] Last Admin: 07/11/16 22:20 Dose: Not Given Tamsulosin HCl (Flomax -) 0.4 mg PO DAILY@0830 [facility] Last Admin: 07/11/16 08:41 Dose: Not Given Zinc Sulfate (Orazinc -) 220 mg NGT DAILY [facility] Last Admin: 07/11/16 09:59 Dose: Not Given - Objective Vital Signs: Vital Signs Temperature 98.4 F 07/12/16 06:00 Pulse Rate 84 07/12/16 06:00 Respiratory Rate 18 07/12/16 06:00 Blood Pressure 152/86 07/12/16 06:00 O2 Sat by Pulse Oximetry (%) 99 07/11/16 06:26 Cardiovascular: Yes: Murmur, S1, S2 Respiratory: Yes: Regular, CTA Bilaterally Gastrointestinal: Yes: Normal Bowel Sounds, Soft Extremities: Yes: Amputation Labs: CBC, BMP 07/12/16 05:35 07/12/16 05:35 INR, PTT INR 1.08 (0.82-1.09) 07/01/16 01:45 Problem List - Problems (1) Decubitus ulcer Assessment/Plan: Operative Date: 07/08/16 Pre-Operative Diagnosis: Sacral ulcer - necrotic Operation: Excisional debridment sacrum - skin, subucutaneous tissue, muscel Post-Operative Diagnosis: Same as Pre-op Surgeon: Felipe Rivers ABX PER ID Code(s): L89.90 - PRESSURE ULCER OF UNSPECIFIED SITE, UNSPECIFIED STAGE (2) Anemia Assessment/Plan: MONITOR S/P TRANSFUSION HEM CONSULT Code(s): D64.9 - ANEMIA, UNSPECIFIED (3) Diabetes Assessment/Plan: MONITOR B/S ENDO CONSULT SS/ Laboratory Tests 07/08/16 07/08/16 07/08/16 11:26 17:55 23:01 POC Glucometer 292 173 194 07/09/16 05:41 POC Glucometer 241 Code(s): E11.9 - TYPE 2 DIABETES MELLITUS WITHOUT COMPLICATIONS (4) S/P bilateral below knee amputation Assessment/Plan: MONITOR Code(s): Z89.512 - ACQUIRED ABSENCE OF LEFT LEG BELOW KNEE Z89.511 - ACQUIRED ABSENCE OF RIGHT LEG BELOW KNEE (5) DVT, bilateral lower limbs Assessment/Plan: ON HEPARIN DRIP--CHANGE TO LOVENOX Code(s): I82.403 - ACUTE EMBOLISM AND THOMBOS UNSP DEEP VEINS OF LOW EXTRM, BI (6) UTI (urinary tract infection) Assessment/Plan: ABX CULTURES ID ON BOARD Code(s): N39.0 - URINARY TRACT INFECTION, SITE NOT SPECIFIED Qualifiers: Qualified Code(s): N30.00 - Acute cystitis without hematuria (7) Pneumonia Code(s): J18.9 - PNEUMONIA, UNSPECIFIED ORGANISM Qualifiers: Qualified Code(s): J18.1 - Lobar pneumonia, unspecified organism (8) CKD (chronic kidney disease) Assessment/Plan: MONITOR IMPROVING Laboratory Tests 07/01/16 07/05/16 01:45 05:25 Creatinine 2.2 H 0.5 L D Code(s): N18.9 - CHRONIC KIDNEY DISEASE, UNSPECIFIED Assessment/Plan 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
--- NOTE | 2016-07-12 09:17 | PN ---
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 (short form) - Note 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: more awake, afebrile since 07/10 NPO since 07/10- NGT could not be repositioned and was removed she pulled out the conley Vital Signs Period Temp Pulse Resp BP Sys/Chávez Pulse Ox Last 24 Hr 98.3 F-99.8 F 80-89 18-18 140-160/65-86 cor-rrr lungs decreased bs at bases abd soft,nt ext bilat BKA sacral ulcer still with slough and drainage CBC, BMP 07/12/16 05:35 07/12/16 05:35 Microbiology 07/09/16 16:00 Blood - Arterial Blood Culture - Preliminary NO GROWTH OBTAINED AFTER 48 HOURS, INCUBATION TO CONTINUE FOR 3 DAYS. 07/09/16 16:00 Blood - Arterial Blood Culture - Preliminary NO GROWTH OBTAINED AFTER 48 HOURS, INCUBATION TO CONTINUE FOR 3 DAYS. 07/09/16 16:00 Urine - Urine Conley Urine Culture - Final Yeast Like Organism ct scans unrevealing a/p afebrile now NPO- was she aspirating s/p debridement of sacral ulcer 07/08 s/p 9 days ertapenem for ecoli esbl UTI continue zosyn/diflucan day #3 wound care ?GT Problem List - Problems (1) Sepsis Code(s): A41.9 - SEPSIS, UNSPECIFIED ORGANISM Qualifiers: Qualified Code(s): A41.51 - Sepsis due to Escherichia coli [E. coli] (2) UTI (urinary tract infection) Code(s): N39.0 - URINARY TRACT INFECTION, SITE NOT SPECIFIED Qualifiers: Qualified Code(s): N30.00 - Acute cystitis without hematuria (3) Infected decubitus ulcer Code(s): L89.90 - PRESSURE ULCER OF UNSPECIFIED SITE, UNSPECIFIED STAGE
[2016-07-12 10:15] LABS: FERRITIN 635.476 ng/ml (6.9-282.5)
--- NOTE | 2016-07-12 10:22 | PN ---
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 (short form) - Note 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: Renal Follow up for Hypernatremia Pt seen and examined at the bedside more awake today not taking in any oral diet per nursing afebrile good urine output recorded yesterday Vital Signs Temperature 98.4 F 07/12/16 06:00 Pulse Rate 84 07/12/16 06:00 Respiratory Rate 18 07/12/16 06:00 Blood Pressure 152/86 07/12/16 06:00 O2 Sat by Pulse Oximetry (%) 99 07/11/16 06:26 Intake & Output 07/09/16 07/10/16 07/11/16 07/12/16 23:59 23:59 23:59 23:59 Intake Total 2150 0 2663 950 Output Total 262 081 8485 Balance 1300 -800 713 950 Gen: on NC O2 CVS: RRR, No M/R Lungs: Dec BS, no rales Abd: soft NT/ND Ext: s/p B/L BKA, trace sacral edema, 1+ Ue edema : conley in place with yellow urine CBC, BMP 07/12/16 05:35 07/12/16 05:35 Laboratory Tests 07/12/16 05:35 Calcium 8.2 L Phosphorus 2.7 Magnesium 1.9 Albumin 1.6 L Current Medications Acetaminophen (Ofirmev Injection -) 1,000 mg IVPB Q6H PRN Acetaminophen (Tylenol Suppository -) 650 mg [place] Q6H PRN PRN Reason: FEVER OR PAIN Last Admin: 07/10/16 14:00 Dose: 650 mg Acetaminophen (Tylenol -) 650 mg PO Q4H PRN PRN Reason: PAIN Albuterol Sulfate (Ventolin 0.083% Nebulizer Soln -) 1 amp NEB QIDR [facility] Last Admin: 07/12/16 06:00 Dose: 1 amp Amino Acids (Prosource No Carb Liquid Pkt) 30 ml NGT BID@0800,1730 [facility] Last Admin: 07/12/16 08:30 Dose: Not Given Ascorbic Acid (Vitamin C Oral Solution -) 500 mg NGT TID [facility] Last Admin: 07/12/16 06:42 Dose: Not Given Atorvastatin Calcium (Lipitor -) 10 mg NGT HS [facility] Last Admin: 07/11/16 22:20 Dose: Not Given Collagenase (Santyl -) 1 applic TP DAILY [facility] Last Admin: 07/11/16 09:59 Dose: 1 applic Escitalopram Oxalate (Lexapro -) 10 mg PO DAILY [facility] Last Admin: 07/11/16 09:03 Dose: Not Given Ferrous Sulfate (Feosol -) 325 mg PO TIDCM [facility] Last Admin: 07/12/16 08:29 Dose: Not Given Fluconazole (Diflucan 200 Mg/Ns Premixed Ivpb -) 100 mls @ 100 mls/hr IVPB DAILY [facility] Last Admin: 07/11/16 09:59 Dose: 100 mls/hr Potassium Chloride/Sodium Chloride (1/2ns+20meq Kcl) 1,000 mls @ 83 mls/hr IV ASDIR [facility] Last Admin: 07/11/16 22:19 Dose: 83 mls/hr Ibuprofen (Caldolor Injection -) 400 mg IVPB Q6H PRN PRN Reason: FEVER Last Admin: 07/11/16 13:59 Dose: 400 mg Insulin Aspart (Novolog Vial Sliding Scale -) 1 vial SQ ACHS [facility] PRN Reason: Protocol Last Admin: 07/12/16 06:42 Dose: Not Given Insulin Detemir (Levemir Vial) 12 units SQ 0900 [facility] Last Admin: 07/11/16 09:53 Dose: Not Given Ipratropium [place] (Atrovent 0.02% Nebulizer -) 1 amp NEB Q6HPO [facility] Last Admin: 07/12/16 06:00 Dose: 1 amp Metoprolol Tartrate (Lopressor -) 50 mg PO BID [facility] Last Admin: 07/11/16 22:20 Dose: Not Given Mirtazapine (Remeron -) 30 mg PO HS [facility] Last Admin: 07/11/16 22:20 Dose: Not Given Non-Formulary Medication (Darbepoetin Joseph In Polysorbat [Aranesp]) 25 mcg SQ TH [facility] Olanzapine (Zyprexa -) 5 mg PO BID [facility] Last Admin: 07/11/16 22:20 Dose: Not Given Pantoprazole Sodium (Protonix -) 20 mg PO DAILY [facility] Last Admin: 07/11/16 09:03 Dose: Not Given Piperacillin Sod/Tazobactam Sod (Zosyn 3.375gm Ivpb (Pre-Docked)) 3.375 gm IVPB Q8H-IV [facility] PRN Reason: Protocol Last Admin: 07/12/16 03:48 Dose: 3.375 gm Prochlorperazine Maleate (Compazine -) 5 mg PO BID [facility] Last Admin: 07/11/16 22:20 Dose: Not Given Senna (Senna -) 1 tab PO HS [facility] Last Admin: 07/11/16 22:20 Dose: Not Given Sodium Bicarbonate (Sodium Bicarbonate -) 650 mg PO BID [facility] Last Admin: 07/11/16 22:20 Dose: Not Given Tamsulosin HCl (Flomax -) 0.4 mg PO DAILY@0830 [facility] Last Admin: 07/12/16 08:30 Dose: Not Given Zinc Sulfate (Orazinc -) 220 mg NGT DAILY [facility] Last Admin: 07/11/16 09:59 Dose: Not Given A/P 80 year old woman with PMhx of Multiple GIANNI's, Hypernatremia, Hypertension, DM, HLD, GERD who presented [place] with hypoxia and found to have Septic shock from UTI/Infected Sacral Decubitis Ulcers with GIANNI with Cr of 2.2 and worsening hypernatremia. #Hypernatremia Serum Na now improved to normal limits change 1/2 NS to Clinimix as pt with poor oral intake Trend Na daily #Septic Shock/UTI/Infected Sacral Decubitis Ulcers Afebrile now continue Abx as per ID #Anemia Requiring Transfusion trend CBC transfuse as needed #Hypophosphatemia PO Neutra phos x 6 trend daily phos Thank you Vahid Manzano DO
[2016-07-12] MEDS: PROCHLORPERAZINE MALEATE 5 MG TABLET PO SCH ×2 (10:51→22:30)
[2016-07-12] MEDS: ESCITALOPRAM OXALATE 10 MG TABLET (FP) PO SCH (10:51)
[2016-07-12] MEDS: ZINC SULFATE 220 MG CAPSULE (FP) NGT SCH (10:52)
[2016-07-12] MEDS: PANTOPRAZOLE 20 MG TABLET (FP) PO SCH (10:52)
[2016-07-12] MEDS: METOPROLOL TARTRATE 50 MG TABLET (FP) PO SCH ×2 (10:52→22:30)
[2016-07-12] MEDS: SODIUM BICARBONATE 650 MG TABLET PO SCH ×2 (10:53→22:32)
[2016-07-12] MEDS: OLANZapine 5 MG TABLET PO SCH ×2 (10:53→22:32)
[2016-07-12] MEDS: INSULIN DETEMIR 100 UNITS/ML MDV SQ SCH (10:54)
[2016-07-12] MEDS ORDERED: PT OWN MED DRAWER 7, Y5N ONE ×2 (11:10→18:22)
[2016-07-12] MEDS: FLUCONAZOLE 200 MG/NS 100 ML IVPB SCH (11:13)
[2016-07-12] MEDS: COLLAGENASE CLOSTRIDIUM HIST. 30 GRAMS TUBE TP SCH (11:13)
--- NOTE | 2016-07-12 11:37 | PN ---
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, Physician Chief Complaint: lethargic Telemetry PVC's, sinus tachycardia, brief self terminating runs of atrial tachycardia. History of Present Illness: 80F OMS, NHR, HTN, DM, CKD, GIANNI, GERD, CVA bilateral BKA, COPD admitted 06/30/16 fever sepsis with shock due to UTI and infected sacral decubitus ulcer. Was on pressors but now tapered off. Getting broad spectrum abx. Underwent debridement. Also found with bilateral DVT. On lovenox. Now held pending further debridement. lethargic, still febrile. Echocardiogram 07/01/16 normal Ef moderate aortic sclerosis. Telemetry 07/07/16 brief NSVT. None further, only occasional VPC's. - Current Medication List Current Medications: Active Medications Acetaminophen (Ofirmev Injection -) 1,000 mg IVPB Q6H PRN Acetaminophen (Tylenol Suppository -) 650 mg ID Q6H PRN PRN Reason: FEVER OR PAIN Last Admin: 07/10/16 14:00 Dose: 650 mg Acetaminophen (Tylenol -) 650 mg PO Q4H PRN PRN Reason: PAIN Albuterol Sulfate (Ventolin 0.083% Nebulizer Soln -) 1 amp NEB QIDR [facility] Last Admin: 07/12/16 06:00 Dose: 1 amp Amino Acids (Prosource No Carb Liquid Pkt) 30 ml NGT BID@0800,1730 [facility] Last Admin: 07/12/16 08:30 Dose: Not Given Ascorbic Acid (Vitamin C Oral Solution -) 500 mg NGT TID [facility] Last Admin: 07/12/16 06:42 Dose: Not Given Atorvastatin Calcium (Lipitor -) 10 mg NGT HS [facility] Last Admin: 07/11/16 22:20 Dose: Not Given Collagenase (Santyl -) 1 applic TP DAILY [facility] Last Admin: 07/12/16 11:13 Dose: 1 applic Escitalopram Oxalate (Lexapro -) 10 mg PO DAILY [facility] Last Admin: 07/12/16 10:51 Dose: Not Given Ferrous Sulfate (Feosol -) 325 mg PO TIDCM [facility] Last Admin: 07/12/16 08:29 Dose: Not Given Fluconazole (Diflucan 200 Mg/Ns Premixed Ivpb -) 100 mls @ 100 mls/hr IVPB DAILY [facility] Last Admin: 07/12/16 11:13 Dose: 100 mls/hr Amino Acids (Clinimix -) 1,000 mls @ 75 mls/hr IV Q13H [facility] Ibuprofen (Caldolor Injection -) 400 mg IVPB Q6H PRN PRN Reason: FEVER Last Admin: 07/11/16 13:59 Dose: 400 mg Insulin Aspart (Novolog Vial Sliding Scale -) 1 vial SQ ACHS [facility] PRN Reason: Protocol Last Admin: 07/12/16 06:42 Dose: Not Given Insulin Detemir (Levemir Vial) 12 units SQ 0900 [facility] Last Admin: 07/12/16 10:54 Dose: Not Given Ipratropium [place] (Atrovent 0.02% Nebulizer -) 1 amp NEB Q6HPO [facility] Last Admin: 07/12/16 06:00 Dose: 1 amp Metoprolol Tartrate (Lopressor -) 50 mg PO BID [facility] Last Admin: 07/12/16 10:52 Dose: Not Given Mirtazapine (Remeron -) 30 mg PO HS [facility] Last Admin: 07/11/16 22:20 Dose: Not Given Non-Formulary Medication (Darbepoetin Joseph In Polysorbat [Aranesp]) 25 mcg SQ TH [facility] Olanzapine (Zyprexa -) 5 mg PO BID [facility] Last Admin: 07/12/16 10:53 Dose: Not Given Pantoprazole Sodium (Protonix -) 20 mg PO DAILY [facility] Last Admin: 07/12/16 10:52 Dose: Not Given Piperacillin Sod/Tazobactam Sod (Zosyn 3.375gm Ivpb (Pre-Docked)) 3.375 gm IVPB Q8H-IV [facility] PRN Reason: Protocol Last Admin: 07/12/16 11:13 Dose: 3.375 gm Prochlorperazine Maleate (Compazine -) 5 mg PO BID [facility] Last Admin: 07/12/16 10:51 Dose: Not Given Senna (Senna -) 1 tab PO [facility] Last Admin: 07/11/16 22:20 Dose: Not Given Sodium Bicarbonate (Sodium Bicarbonate -) 650 mg PO BID [facility] Last Admin: 07/12/16 10:53 Dose: Not Given Tamsulosin HCl (Flomax -) 0.4 mg PO DAILY@0830 [facility] Last Admin: 07/12/16 08:30 Dose: Not Given Zinc Sulfate (Orazinc -) 220 mg NGT DAILY [facility] Last Admin: 07/12/16 10:52 Dose: Not Given - Objective Vital Signs: Vital Signs Temperature 98.4 F 07/12/16 06:00 Pulse Rate 84 07/12/16 06:00 Respiratory Rate 18 07/12/16 06:00 Blood Pressure 152/86 07/12/16 06:00 O2 Sat by Pulse Oximetry (%) 99 07/11/16 06:26 Constitutional: Yes: No Distress Eyes: Yes: WNL HENT: Yes: WNL Neck: Yes: WNL Cardiovascular: Yes: Tachycardia Respiratory: Yes: Dullness Gastrointestinal: Yes: WNL Extremities: Yes: Amputation Edema: Yes Labs: CBC, BMP 07/12/16 05:35 07/12/16 05:35 INR, PTT INR 1.08 (0.82-1.09) 07/01/16 01:45 Assessment/Plan Tachycardia on telemetry is severe sinus tachycardia, now improved, due to DVT possible PE, sepsis, and metabolic stress of infection. This is a "noncardiac arrhythmia" the treatment of which is to control the noncardiac causes. Not in CHF. continue low dose beta leticia, avoid stimulants, continue abx. continue lovenox for dvt. will be appropriate candidate for novel anticoagulant when stable for dc and no further procedures needed. She has no cardiac contraindications to further debridement surgery. Medically optimized. She is at low to intermediate risk of periop events but the benefits of infection treatment outweigh the risks. No treatment is needed for NSVT or brief atrial tachycardia in the setting of sepsis and normal EF on echocardiogram. Will follow as needed.
--- NOTE | 2016-07-12 11:39 | PN ---
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, Physician History of Present Illness: pulmonary drowsy,nad,-tachypnea - Current Medication List Current Medications: Active Medications Acetaminophen (Ofirmev Injection -) 1,000 mg IVPB Q6H PRN Acetaminophen (Tylenol Suppository -) 650 mg [place] Q6H PRN PRN Reason: FEVER OR PAIN Last Admin: 07/10/16 14:00 Dose: 650 mg Acetaminophen (Tylenol -) 650 mg PO Q4H PRN PRN Reason: PAIN Albuterol Sulfate (Ventolin 0.083% Nebulizer Soln -) 1 amp NEB QIDR [facility] Last Admin: 07/12/16 06:00 Dose: 1 amp Amino Acids (Prosource No Carb Liquid Pkt) 30 ml NGT BID@0800,1730 [facility] Last Admin: 07/12/16 08:30 Dose: Not Given Ascorbic Acid (Vitamin C Oral Solution -) 500 mg NGT TID [facility] Last Admin: 07/12/16 06:42 Dose: Not Given Atorvastatin Calcium (Lipitor -) 10 mg NGT HS [facility] Last Admin: 07/11/16 22:20 Dose: Not Given Collagenase (Santyl -) 1 applic TP DAILY [facility] Last Admin: 07/12/16 11:13 Dose: 1 applic Escitalopram Oxalate (Lexapro -) 10 mg PO DAILY [facility] Last Admin: 07/12/16 10:51 Dose: Not Given Ferrous Sulfate (Feosol -) 325 mg PO TIDCM [facility] Last Admin: 07/12/16 08:29 Dose: Not Given Fluconazole (Diflucan 200 Mg/Ns Premixed Ivpb -) 100 mls @ 100 mls/hr IVPB DAILY [facility] Last Admin: 07/12/16 11:13 Dose: 100 mls/hr Amino Acids (Clinimix -) 1,000 mls @ 75 mls/hr IV Q13H [facility] Ibuprofen (Caldolor Injection -) 400 mg IVPB Q6H PRN PRN Reason: FEVER Last Admin: 07/11/16 13:59 Dose: 400 mg Insulin Aspart (Novolog Vial Sliding Scale -) 1 vial SQ ACHS [facility] PRN Reason: Protocol Last Admin: 07/12/16 06:42 Dose: Not Given Insulin Detemir (Levemir Vial) 12 units SQ 0900 [facility] Last Admin: 07/12/16 10:54 Dose: Not Given Ipratropium [place] (Atrovent 0.02% Nebulizer -) 1 amp NEB Q6HPO [facility] Last Admin: 07/12/16 06:00 Dose: 1 amp Metoprolol Tartrate (Lopressor -) 50 mg PO BID [facility] Last Admin: 07/12/16 10:52 Dose: Not Given Mirtazapine (Remeron -) 30 mg PO HS [facility] Last Admin: 07/11/16 22:20 Dose: Not Given Non-Formulary Medication (Darbepoetin Joseph In Polysorbat [Aranesp]) 25 mcg SQ TH [facility] Olanzapine (Zyprexa -) 5 mg PO BID [facility] Last Admin: 07/12/16 10:53 Dose: Not Given Pantoprazole Sodium (Protonix -) 20 mg PO DAILY [facility] Last Admin: 07/12/16 10:52 Dose: Not Given Piperacillin Sod/Tazobactam Sod (Zosyn 3.375gm Ivpb (Pre-Docked)) 3.375 gm IVPB Q8H-IV [facility] PRN Reason: Protocol Last Admin: 07/12/16 11:13 Dose: 3.375 gm Prochlorperazine Maleate (Compazine -) 5 mg PO BID [facility] Last Admin: 07/12/16 10:51 Dose: Not Given Senna (Senna -) 1 tab PO [facility] Last Admin: 07/11/16 22:20 Dose: Not Given Sodium Bicarbonate (Sodium Bicarbonate -) 650 mg PO BID [facility] Last Admin: 07/12/16 10:53 Dose: Not Given Tamsulosin HCl (Flomax -) 0.4 mg PO DAILY@0830 [facility] Last Admin: 07/12/16 08:30 Dose: Not Given Zinc Sulfate (Orazinc -) 220 mg NGT DAILY [facility] Last Admin: 07/12/16 10:52 Dose: Not Given - Objective Vital Signs: Vital Signs Temperature 98.4 F 07/12/16 06:00 Pulse Rate 84 07/12/16 06:00 Respiratory Rate 18 07/12/16 06:00 Blood Pressure 152/86 07/12/16 06:00 O2 Sat by Pulse Oximetry (%) 99 07/11/16 06:26 Constitutional: Yes: Well Nourished, Other (drowsy) Eyes: Yes: WNL HENT: Yes: WNL Neck: Yes: WNL Cardiovascular: Yes: Regular Rate and Rhythm, S1, S2 Respiratory: Yes: Diminished, Rhonchi (poor inspiratory effort,feww scattered jonh rhonchi) Gastrointestinal: Yes: Normal Bowel Sounds, Soft Extremities: Yes: Amputation (bilateral bka) Edema: No Labs: CBC, BMP 07/12/16 05:35 07/12/16 05:35 INR, PTT INR 1.08 (0.82-1.09) 07/01/16 01:45 Assessment/Plan A/P Acute Hypoxic Respiratory Failure improved UTI Sacral Decubitus Ulcer Infection s/p sacral debridement Septic Shock resolving Lactic Acidosis improved Acute Kidney Injury resolving Bilateral DVTs HTN DM Dementia - continue antibiotics - continue free water replacement - monitor urine output, creatinine - glucose control - BiPAP as needed to assist in work of breathing - titrate FiO2 to keep SpO2 >90% - aspiration precautions - DVT/GI prophylaxis DR CONNER
[2016-07-12] MEDS: AMINO ACIDS 4.25%/D5W 1,000 ML IV SCH (12:31)
--- NOTE | 2016-07-12 13:07 | PATH ---
Surgical Pathology Report Patient Name: MALU JOHNSTON Med. Rec. #: [id number] /Age/Gender: 1935 (Age: 80) / F Account: [id number] Location: 4 W TELEMETRY U Taken: 07/08/2016 Received: 07/09/2016 Reported: 07/12/2016 Physicians: Felipe Rivers Specimen(s) Received DEBRIDEMENT TISSUE SACRAL ULCER Clinical History Sacral ulcer Final Diagnosis SOFT TISSUE, SACRAL ULCER, DEBRIDEMENT: GANGRENOUS NECROSIS. Electronically Signed Milton Reyez M.D. Gross Description Received in formalin labeled "debrided sacral ulcer tissue" is a 5.5 x 3.4 x 1.0 cm aggregate of [place], necrotic soft tissue fragments. Pot Pusher sections are submitted in one cassette. /07/09/201607/09/2016
--- NOTE | 2016-07-12 14:42 | PN ---
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, [employer] - Note 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: Selected Entries 07/10/16 07/11/16 07/11/16 12:57 02:00 06:26 Breakfast Lunch NPO Temperature 98.9 F 99 F 07/11/16 07/11/16 07/11/16 08:22 12:54 14:53 Breakfast NPO Lunch Temperature 99.3 F 99.8 F H 07/11/16 07/11/16 07/11/16 17:00 18:56 22:00 Breakfast Lunch Temperature 99.2 F 98.3 F 99 F 07/12/16 07/12/16 07/12/16 02:16 06:00 10:00 Breakfast NPO Lunch Temperature 98.6 F 98.4 F 99.7 F H Made NPO 07/09- was more lethargic and febrile. NGT could not be placed. Consider po trial again- puree best, mixed with with liquid, to drink from a cup and nectar thick Consider GT to supplement PO intake.
--- NOTE | 2016-07-12 17:40 | PN ---
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 (short form) - Note 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: Patient seen and examined confused, nonverbal Last Vital Signs Temp Pulse Resp BP Pulse Ox 99.7 F H 101 H 16 110/78 95 07/12/16 10:00 07/12/16 13:15 07/12/16 10:00 07/12/16 10:00 07/12/16 13:15 Cor: RSR, No murmurs, No gallops Lungs: Clear to P&A Abd: Soft, Normal bowel sounds, No organomegaly Ext: b/l BKA Abnormal Lab Results 07/12/16 07/12/16 05:35 05:35 RBC 3.24 L D Hgb 9.8 L D Hct 29.4 L D RDW 16.9 H Monocytes % 3.1 L Random Glucose 128 H Calcium 8.2 L Ferritin 635.476 H AST 11 L ALT 7 L D Total Protein 6.3 L Albumin 1.6 L Active Medications Generic Name Dose Route Start Last Admin Trade Name Freq PRN Reason Stop Dose Admin Acetaminophen 1,000 mg 07/08/16 17:05 Ofirmev Injection - IVPB Q6H PRN Acetaminophen 650 mg 07/08/16 17:05 07/10/16 14:00 Tylenol Suppository - [place] 650 mg Q6H PRN Administration FEVER OR PAIN Acetaminophen 650 mg 07/11/16 01:03 Tylenol - PO Q4H PRN PAIN Albuterol Sulfate 1 amp 07/08/16 18:00 07/12/16 11:16 Ventolin 0.083% Nebulizer Soln - NEB 1 amp QIDR LARRY Administration Amino Acids 30 ml 07/08/16 17:30 07/12/16 08:30 Prosource No Carb Liquid Pkt NGT Not Given BID@0800,1730 LARRY Ascorbic Acid 500 mg 07/08/16 22:00 07/12/16 13:39 Vitamin C Oral Solution - NGT Not Given TID LARRY Atorvastatin Calcium 10 mg 07/08/16 22:00 07/11/16 22:20 Lipitor - NGT Not Given HS LARRY Collagenase 1 applic 07/11/16 10:00 07/12/16 11:13 Santyl - TP 1 applic DAILY LARRY Administration Escitalopram Oxalate 10 mg 07/11/16 10:00 07/12/16 10:51 Lexapro - PO Not Given DAILY LARRY Ferrous Sulfate 325 mg 04/16/17 08:00 07/12/16 12:12 Feosol - PO Not Given TIDCM [facility] Fluconazole 100 mls @ 100 mls/hr 07/09/16 15:45 07/12/16 11:13 Diflucan 200 Mg/Ns Premixed Ivpb - IVPB 100 mls/hr DAILY LARRY Administration Amino Acids 1,000 mls @ 75 mls/hr 07/12/16 11:00 07/12/16 12:31 Clinimix - IV 75 mls/hr Q13H LARRY Administration Ibuprofen 400 mg 07/08/16 17:05 07/11/16 13:59 Caldolor Injection - IVPB 400 mg Q6H PRN Administration FEVER Insulin Aspart 1 vial 07/08/16 22:00 07/12/16 12:04 Novolog Vial Sliding Scale - SQ Not Given ACHS [facility] Protocol Insulin Detemir 12 units 07/11/16 09:00 07/12/16 10:54 Levemir Vial SQ Not Given 0900 [facility] Ipratropium Valentine 1 amp 07/08/16 18:00 07/12/16 11:15 Atrovent 0.02% Nebulizer - NEB 1 amp Q6HPO [facility] Administration Metoprolol Tartrate 50 mg 07/08/16 22:00 07/12/16 10:52 Lopressor - PO Not Given BID [facility] Mirtazapine 30 mg 07/08/16 22:00 07/11/16 22:20 Remeron - PO Not Given HS [facility] Non-Formulary Medication 25 mcg 07/15/16 01:03 Darbepoetin Joseph In Polysorbat [Aranesp] SQ TH [facility] Olanzapine 5 mg 07/08/16 22:00 07/12/16 10:53 Zyprexa - PO Not Given BID LARRY Pantoprazole Sodium 20 mg 07/09/16 10:00 07/12/16 10:52 Protonix - PO Not Given DAILY [facility] Prochlorperazine Maleate 5 mg 07/11/16 10:00 07/12/16 10:51 Compazine - PO Not Given BID LARRY Senna 1 tab 07/08/16 22:00 07/11/16 22:20 Senna - PO Not Given HS [facility] Sodium Bicarbonate 650 mg 07/08/16 22:00 07/12/16 10:53 Sodium Bicarbonate - PO Not Given BID LARRY Tamsulosin HCl 0.4 mg 07/09/16 08:30 07/12/16 08:30 Flomax - PO Not Given DAILY@0830 [facility] Zinc Sulfate 220 mg 07/09/16 10:00 07/12/16 10:52 Orazinc - NGT Not Given DAILY LARRY A/P 80 y/o patient with multiple coorbisdities, dementia severe, anemia anemia--normocytic iron studies s/o anemia of chronic disease, on ferrous sulfate with elevated ferritin, low tibc. iron sat nl stool ocssul neg. B12/TSH/fT4/LDH nl Jerry + but LDH nl ESR elevated, RF elevated , MYAH + h/o purpura over both ext. in past?? vasculitis will get rheumatology consult fever/sweats? C Scans discussed with daughter at bedside, who wants work up done , she understands that her mothers functional status is poor
[2016-07-12] MEDS: ATORVASTATIN CA 10 MG TABLET (FP) NGT SCH (22:30)
[2016-07-12] MEDS: SENNOSIDES 8.6MG TABLET (FP) PO SCH (22:32)
[2016-07-12] MEDS: MIRTAZAPINE 30 MG TABLET (FP) PO SCH (22:32)
[2016-07-13] MEDS: AMINO ACIDS 4.25%/D5W 1,000 ML IV SCH ×2 (02:37→16:40)
[2016-07-13] MEDS: IPRATROPIUM BR 0.02% 0.5 MG/2.5 ML VIAL.NEB. NEB SCH ×5 (06:07→23:20)
[2016-07-13] MEDS: ALBUTEROL SO4 0.083% IH SOL 2.5 MG/3 ML VIAL.NEB. NEB SCH ×4 (06:07→23:20)
[2016-07-13] MEDS: INSULIN SLIDING SCALE (NOVOLOG) 1 VIAL SQ SCH ×4 (06:35→22:02)
[2016-07-13] MEDS: ASCORBIC ACID 500 MG/5 ML UNIT DOSE CUP NGT SCH ×3 (06:36→22:02)
[2016-07-13 07:42] LABS: BASOPHIL 0.7 % (0-2.0); CALCIUM 8.3 mg/dL (8.5-10.1); COCKROFT - GAULT 59.5; CREATININE 0.6 mg/dL (0.55-1.02); MAGNESIUM 1.7 mg/dL (1.8-2.4); MCH 30.5 pg (25.7-33.7); MCHC 33.4 g/dl (32.0-36.0); MEAN CELL VOLUME 91.1 fl (80-96); MEAN PLT VOLUME 8.3 fl (7.5-11.1); NEUTROPHILS 52.8 % (42.8-82.8); PHOSPHOROUS 2.1 mg/dL (2.5-4.9); PLATELET COUNT 364 K/MM3 (134-434); RDW 16.3 % (11.6-15.6); WHITE BLOOD COUNT 7.7 K/mm3 (4.0-10.0)
[2016-07-13] MEDS ORDERED: INSULIN (NOVOLOG) ASPART 100 UNITS/ML 10ML VIAL ONE ×2 (07:59→10:46)
[2016-07-13] MEDS: FERROUS SO4 325 MG TABLET (FP) PO SCH ×3 (08:29→16:43)
[2016-07-13] MEDS: AMINO ACIDS/PROTEIN HYDROLYS 30 ML LIQUID.PKT NGT SCH ×2 (08:29→16:43)
[2016-07-13] MEDS: TAMSULOSIN HCL 0.4 MG CAP.ER.24H (FP) PO SCH (08:29)
--- NOTE | 2016-07-13 08:36 | PN ---
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, Physician - Current Medication List Current Medications: Active Medications Acetaminophen (Ofirmev Injection -) 1,000 mg IVPB Q6H PRN Acetaminophen (Tylenol Suppository -) 650 mg DE Q6H PRN PRN Reason: FEVER OR PAIN Last Admin: 07/10/16 14:00 Dose: 650 mg Acetaminophen (Tylenol -) 650 mg PO Q4H PRN PRN Reason: PAIN Albuterol Sulfate (Ventolin 0.083% Nebulizer Soln -) 1 amp NEB QIDR [facility] Last Admin: 07/13/16 06:07 Dose: 1 amp Amino Acids (Prosource No Carb Liquid Pkt) 30 ml NGT BID@0800,1730 [facility] Last Admin: 07/12/16 08:30 Dose: Not Given Ascorbic Acid (Vitamin C Oral Solution -) 500 mg NGT TID [facility] Last Admin: 07/13/16 06:36 Dose: Not Given Atorvastatin Calcium (Lipitor -) 10 mg NGT HS [facility] Last Admin: 07/12/16 22:30 Dose: Not Given Collagenase (Santyl -) 1 applic TP DAILY [facility] Last Admin: 07/12/16 11:13 Dose: 1 applic Escitalopram Oxalate (Lexapro -) 10 mg PO DAILY [facility] Last Admin: 07/12/16 10:51 Dose: Not Given Ferrous Sulfate (Feosol -) 325 mg PO TIDCM [facility] Last Admin: 07/12/16 12:12 Dose: Not Given Fluconazole (Diflucan 200 Mg/Ns Premixed Ivpb -) 100 mls @ 100 mls/hr IVPB DAILY [facility] Last Admin: 07/12/16 11:13 Dose: 100 mls/hr Amino Acids (Clinimix -) 1,000 mls @ 75 mls/hr IV Q13H [facility] Last Admin: 07/13/16 02:37 Dose: 75 mls/hr Ibuprofen (Caldolor Injection -) 400 mg IVPB Q6H PRN PRN Reason: FEVER Last Admin: 07/11/16 13:59 Dose: 400 mg Insulin Aspart (Novolog Vial Sliding Scale -) 1 vial SQ ACHS LARRY PRN Reason: Protocol Last Admin: 07/13/16 06:35 Dose: 5 units Insulin Detemir (Levemir Vial) 12 units SQ 0900 [facility] Last Admin: 07/12/16 10:54 Dose: Not Given Ipratropium [place] (Atrovent 0.02% Nebulizer -) 1 amp NEB Q6HPO [facility] Last Admin: 07/13/16 06:07 Dose: 1 amp Metoprolol Tartrate (Lopressor -) 50 mg PO BID [facility] Last Admin: 07/12/16 22:30 Dose: Not Given Mirtazapine (Remeron -) 30 mg PO [facility] Last Admin: 07/12/16 22:32 Dose: Not Given Non-Formulary Medication (Darbepoetin Joseph In Polysorbat [Aranesp]) 25 mcg SQ TH [facility] Olanzapine (Zyprexa -) 5 mg PO BID [facility] Last Admin: 07/12/16 22:32 Dose: Not Given Pantoprazole Sodium (Protonix -) 20 mg PO DAILY [facility] Last Admin: 07/12/16 10:52 Dose: Not Given Prochlorperazine Maleate (Compazine -) 5 mg PO BID [facility] Last Admin: 07/12/16 22:30 Dose: Not Given Senna (Senna -) 1 tab PO [facility] Last Admin: 07/12/16 22:32 Dose: Not Given Sodium Bicarbonate (Sodium Bicarbonate -) 650 mg PO BID [facility] Last Admin: 07/12/16 22:32 Dose: Not Given Tamsulosin HCl (Flomax -) 0.4 mg PO DAILY@0830 [facility] Last Admin: 07/12/16 08:30 Dose: Not Given Zinc Sulfate (Orazinc -) 220 mg NGT DAILY [facility] Last Admin: 07/12/16 10:52 Dose: Not Given - Objective Vital Signs: Vital Signs Temperature 98.6 F 07/13/16 06:00 Pulse Rate 82 07/13/16 06:00 Respiratory Rate 16 07/13/16 06:00 Blood Pressure 139/68 07/13/16 06:00 O2 Sat by Pulse Oximetry (%) 95 07/12/16 21:00 Labs: CBC, BMP 07/13/16 06:00 07/13/16 06:00 INR, PTT INR 1.08 (0.82-1.09) 07/01/16 01:45 Problem List - Problems (1) Decubitus ulcer Code(s): L89.90 - PRESSURE ULCER OF UNSPECIFIED SITE, UNSPECIFIED STAGE (2) Anemia Code(s): D64.9 - ANEMIA, UNSPECIFIED (3) Diabetes Code(s): E11.9 - TYPE 2 DIABETES MELLITUS WITHOUT COMPLICATIONS (4) S/P bilateral below knee amputation Code(s): Z89.512 - ACQUIRED ABSENCE OF LEFT LEG BELOW KNEE Z89.511 - ACQUIRED ABSENCE OF RIGHT LEG BELOW KNEE (5) DVT, bilateral lower limbs Code(s): I82.403 - ACUTE EMBOLISM AND THOMBOS UNSP DEEP VEINS OF LOW EXTRM, BI (6) UTI (urinary tract infection) Code(s): N39.0 - URINARY TRACT INFECTION, SITE NOT SPECIFIED Qualifiers: Qualified Code(s): N30.00 - Acute cystitis without hematuria (7) Pneumonia Code(s): J18.9 - PNEUMONIA, UNSPECIFIED ORGANISM Qualifiers: Qualified Code(s): J18.1 - Lobar pneumonia, unspecified organism (8) CKD (chronic kidney disease) Code(s): N18.9 - CHRONIC KIDNEY DISEASE, UNSPECIFIED
--- NOTE | 2016-07-13 08:42 | PN ---
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, Physician History of Present Illness: poor oral intake - Current Medication List Current Medications: Active Medications Acetaminophen (Ofirmev Injection -) 1,000 mg IVPB Q6H PRN Acetaminophen (Tylenol Suppository -) 650 mg CO Q6H PRN PRN Reason: FEVER OR PAIN Last Admin: 07/10/16 14:00 Dose: 650 mg Acetaminophen (Tylenol -) 650 mg PO Q4H PRN PRN Reason: PAIN Albuterol Sulfate (Ventolin 0.083% Nebulizer Soln -) 1 amp NEB QIDR [facility] Last Admin: 07/13/16 06:07 Dose: 1 amp Amino Acids (Prosource No Carb Liquid Pkt) 30 ml NGT BID@0800,1730 [facility] Last Admin: 07/13/16 08:29 Dose: Not Given Ascorbic Acid (Vitamin C Oral Solution -) 500 mg NGT TID [facility] Last Admin: 07/13/16 06:36 Dose: Not Given Atorvastatin Calcium (Lipitor -) 10 mg NGT HS [facility] Last Admin: 07/12/16 22:30 Dose: Not Given Collagenase (Santyl -) 1 applic TP DAILY [facility] Last Admin: 07/12/16 11:13 Dose: 1 applic Escitalopram Oxalate (Lexapro -) 10 mg PO DAILY [facility] Last Admin: 07/12/16 10:51 Dose: Not Given Ferrous Sulfate (Feosol -) 325 mg PO TIDCM [facility] Last Admin: 07/13/16 08:29 Dose: Not Given Fluconazole (Diflucan 200 Mg/Ns Premixed Ivpb -) 100 mls @ 100 mls/hr IVPB DAILY [facility] Last Admin: 07/12/16 11:13 Dose: 100 mls/hr Amino Acids (Clinimix -) 1,000 mls @ 75 mls/hr IV Q13H [facility] Last Admin: 07/13/16 02:37 Dose: 75 mls/hr Ibuprofen (Caldolor Injection -) 400 mg IVPB Q6H PRN PRN Reason: FEVER Last Admin: 07/11/16 13:59 Dose: 400 mg Insulin Aspart (Novolog Vial Sliding Scale -) 1 vial SQ ACHS [facility]ARRY PRN Reason: Protocol Last Admin: 07/13/16 06:35 Dose: 5 units Insulin Detemir (Levemir Vial) 12 units SQ 0900 [facility] Last Admin: 07/12/16 10:54 Dose: Not Given Ipratropium [place] (Atrovent 0.02% Nebulizer -) 1 amp NEB Q6HPO [facility] Last Admin: 07/13/16 06:07 Dose: 1 amp Metoprolol Tartrate (Lopressor -) 50 mg PO BID [facility] Last Admin: 07/12/16 22:30 Dose: Not Given Mirtazapine (Remeron -) 30 mg PO HS [facility] Last Admin: 07/12/16 22:32 Dose: Not Given Non-Formulary Medication (Darbepoetin Joseph In Polysorbat [Aranesp]) 25 mcg SQ TH [facility] Olanzapine (Zyprexa -) 5 mg PO BID [facility] Last Admin: 07/12/16 22:32 Dose: Not Given Pantoprazole Sodium (Protonix -) 20 mg PO DAILY [facility] Last Admin: 07/12/16 10:52 Dose: Not Given Prochlorperazine Maleate (Compazine -) 5 mg PO BID [facility] Last Admin: 07/12/16 22:30 Dose: Not Given Senna (Senna -) 1 tab PO [facility] Last Admin: 07/12/16 22:32 Dose: Not Given Sodium Bicarbonate (Sodium Bicarbonate -) 650 mg PO BID [facility] Last Admin: 07/12/16 22:32 Dose: Not Given Tamsulosin HCl (Flomax -) 0.4 mg PO DAILY@0830 [facility] Last Admin: 07/13/16 08:29 Dose: Not Given Zinc Sulfate (Orazinc -) 220 mg NGT DAILY [facility] Last Admin: 07/12/16 10:52 Dose: Not Given - Objective Vital Signs: Vital Signs Temperature 98.6 F 07/13/16 06:00 Pulse Rate 82 07/13/16 06:00 Respiratory Rate 16 07/13/16 06:00 Blood Pressure 139/68 07/13/16 06:00 O2 Sat by Pulse Oximetry (%) 95 07/12/16 21:00 Cardiovascular: Yes: S1, S2 Respiratory: Yes: Diminished Gastrointestinal: Yes: Normal Bowel Sounds, Soft Labs: CBC, BMP 07/13/16 06:00 07/13/16 06:00 INR, PTT INR 1.08 (0.82-1.09) 07/01/16 01:45 Problem List - Problems (1) Decubitus ulcer Assessment/Plan: Operative Date: 07/08/16 Pre-Operative Diagnosis: Sacral ulcer - necrotic Operation: Excisional debridment sacrum - skin, subucutaneous tissue, muscel Post-Operative Diagnosis: Same as Pre-op Surgeon: Felipe Rivers ABX PER ID Code(s): L89.90 - PRESSURE ULCER OF UNSPECIFIED SITE, UNSPECIFIED STAGE (2) Anemia Assessment/Plan: MONITOR S/P TRANSFUSION HEM CONSULT Code(s): D64.9 - ANEMIA, UNSPECIFIED (3) Diabetes Assessment/Plan: MONITOR B/S ENDO CONSULT SS/ Laboratory Tests 07/08/16 07/08/16 07/08/16 11:26 17:55 23:01 POC Glucometer 292 173 194 07/09/16 05:41 POC Glucometer 241 Code(s): E11.9 - TYPE 2 DIABETES MELLITUS WITHOUT COMPLICATIONS (4) S/P bilateral below knee amputation Assessment/Plan: MONITOR Code(s): Z89.512 - ACQUIRED ABSENCE OF LEFT LEG BELOW KNEE Z89.511 - ACQUIRED ABSENCE OF RIGHT LEG BELOW KNEE (5) DVT, bilateral lower limbs Assessment/Plan: ON HEPARIN DRIP--CHANGE TO LOVENOX Code(s): I82.403 - ACUTE EMBOLISM AND THOMBOS UNSP DEEP VEINS OF LOW EXTRM, BI (6) UTI (urinary tract infection) Assessment/Plan: ABX CULTURES ID ON BOARD Code(s): N39.0 - URINARY TRACT INFECTION, SITE NOT SPECIFIED Qualifiers: Qualified Code(s): N30.00 - Acute cystitis without hematuria (7) Pneumonia Code(s): J18.9 - PNEUMONIA, UNSPECIFIED ORGANISM Qualifiers: Qualified Code(s): J18.1 - Lobar pneumonia, unspecified organism (8) CKD (chronic kidney disease) Assessment/Plan: MONITOR IMPROVING Laboratory Tests 07/01/16 07/05/16 01:45 05:25 Creatinine 2.2 H 0.5 L D Code(s): N18.9 - CHRONIC KIDNEY DISEASE, UNSPECIFIED Assessment/Plan TACHYCARDIA IVF INCREASE LOPRESSOR 50 BID TFT CARDIO POOR ORAL INTAKE GI----PEG
[2016-07-13] MEDS ORDERED: MAGNESIUM SULF 50% (8.12 MEQ/2 ML-1 GM VIAL) IVPB ONE (09:17)
[2016-07-13] MEDS: ESCITALOPRAM OXALATE 10 MG TABLET (FP) PO SCH (09:28)
[2016-07-13] MEDS: ZINC SULFATE 220 MG CAPSULE (FP) NGT SCH (09:28)
[2016-07-13] MEDS: METOPROLOL TARTRATE 50 MG TABLET (FP) PO SCH ×2 (09:28→22:01)
[2016-07-13] MEDS: PANTOPRAZOLE 20 MG TABLET (FP) PO SCH (09:28)
[2016-07-13] MEDS: OLANZapine 5 MG TABLET PO SCH ×2 (09:28→22:02)
[2016-07-13] MEDS: SODIUM BICARBONATE 650 MG TABLET PO SCH ×2 (09:28→22:02)
[2016-07-13] MEDS: PROCHLORPERAZINE MALEATE 5 MG TABLET PO SCH ×2 (09:28→22:01)
[2016-07-13] MEDS ORDERED: PT OWN MED DRAWER 7, Y5N ONE ×2 (09:29→10:20)
--- NOTE | 2016-07-13 09:29 | PN ---
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, MANAGER METROLOGY - Note 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: Made NPO 07/09- was more lethargic and febrile. NGT could not be placed. Pt is presently NPO, pending consult regarding PEG insertion. Suggest GT to supplement PO intake. Diet recommendation- puree best, mixed with with liquid, to drink from a cup and nectar thick, Ensure compact.
[2016-07-13] MEDS ORDERED: POTASSIUM PHOSPHATE 15 MM in DEXTROSE 5%-WATER - 250 ML IVPB ONE (09:45)
--- NOTE | 2016-07-13 09:51 | PN ---
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 (short form) - Note 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: Renal Follow up for Hypernatremia Pt seen and examined at the bedside awake but not talking or following commands on IV Clinimix no fevers currently NPO Vital Signs Temperature 98.6 F 07/13/16 06:00 Pulse Rate 82 07/13/16 06:00 Respiratory Rate 16 07/13/16 06:00 Blood Pressure 139/68 07/13/16 06:00 O2 Sat by Pulse Oximetry (%) 95 07/12/16 21:00 Intake & Output 07/10/16 07/11/16 07/12/16 07/13/16 23:59 23:59 23:59 23:59 Intake Total 0 2663 950 900 Output Total 800 1950 Balance -800 713 950 900 Gen: NAD, awake CVS: RRR, No M/R Lungs: Dec BS, no rales Abd: soft NT/ND Ext: s/p B/L BKA, No LE edema CBC, BMP 07/13/16 06:00 07/13/16 06:00 Laboratory Tests 07/13/16 06:00 Calcium 8.3 L Phosphorus 2.1 L D Magnesium 1.7 L Current Medications Acetaminophen (Ofirmev Injection -) 1,000 mg IVPB Q6H PRN Acetaminophen (Tylenol Suppository -) 650 mg MD Q6H PRN PRN Reason: FEVER OR PAIN Last Admin: 07/10/16 14:00 Dose: 650 mg Acetaminophen (Tylenol -) 650 mg PO Q4H PRN PRN Reason: PAIN Albuterol Sulfate (Ventolin 0.083% Nebulizer Soln -) 1 amp NEB QIDR [facility] Last Admin: 07/13/16 06:07 Dose: 1 amp Amino Acids (Prosource No Carb Liquid Pkt) 30 ml NGT BID@0800,1730 [facility] Last Admin: 07/13/16 08:29 Dose: Not Given Ascorbic Acid (Vitamin C Oral Solution -) 500 mg NGT TID [facility] Last Admin: 07/13/16 06:36 Dose: Not Given Atorvastatin Calcium (Lipitor -) 10 mg NGT HS [facility] Last Admin: 07/12/16 22:30 Dose: Not Given Collagenase (Santyl -) 1 applic TP DAILY [facility] Last Admin: 07/12/16 11:13 Dose: 1 applic Escitalopram Oxalate (Lexapro -) 10 mg PO DAILY [facility] Last Admin: 07/13/16 09:28 Dose: Not Given Ferrous Sulfate (Feosol -) 325 mg PO TIDCM [facility] Last Admin: 07/13/16 08:29 Dose: Not Given Fluconazole (Diflucan 200 Mg/Ns Premixed Ivpb -) 100 mls @ 100 mls/hr IVPB DAILY [facility] Last Admin: 07/12/16 11:13 Dose: 100 mls/hr Amino Acids (Clinimix -) 1,000 mls @ 75 mls/hr IV Q13H [facility] Last Admin: 07/13/16 02:37 Dose: 75 mls/hr Potassium Phosphate 15 mm/ (Dextrose) 255 mls @ 63.75 mls/hr IVPB ONCE ONE PRN Reason: 15 MM/4 HR Stop: 07/13/16 13:44 Ibuprofen (Caldolor Injection -) 400 mg IVPB Q6H PRN PRN Reason: FEVER Last Admin: 07/11/16 13:59 Dose: 400 mg Insulin Aspart (Novolog Vial Sliding Scale -) 1 vial SQ ACHS [facility] PRN Reason: Protocol Last Admin: 07/13/16 06:35 Dose: 5 units Insulin Detemir (Levemir Vial) 12 units SQ 0900 [facility] Last Admin: 07/12/16 10:54 Dose: Not Given Ipratropium [place] (Atrovent 0.02% Nebulizer -) 1 amp NEB Q6HPO [facility] Last Admin: 07/13/16 06:07 Dose: 1 amp Metoprolol Tartrate (Lopressor -) 50 mg PO BID [facility] Last Admin: 07/13/16 09:28 Dose: Not Given Mirtazapine (Remeron -) 30 mg PO HS [facility] Last Admin: 07/12/16 22:32 Dose: Not Given Non-Formulary Medication (Darbepoetin Joseph In Polysorbat [Aranesp]) 25 mcg SQ TH [facility] Olanzapine (Zyprexa -) 5 mg PO BID [facility] Last Admin: 07/13/16 09:28 Dose: Not Given Pantoprazole Sodium (Protonix -) 20 mg PO DAILY [facility] Last Admin: 07/13/16 09:28 Dose: Not Given Prochlorperazine Maleate (Compazine -) 5 mg PO BID [facility] Last Admin: 07/13/16 09:28 Dose: Not Given Senna (Senna -) 1 tab PO HS [facility] Last Admin: 07/12/16 22:32 Dose: Not Given Sodium Bicarbonate (Sodium Bicarbonate -) 650 mg PO BID [facility] Last Admin: 07/13/16 09:28 Dose: Not Given Tamsulosin HCl (Flomax -) 0.4 mg PO DAILY@0830 [facility] Last Admin: 07/13/16 08:29 Dose: Not Given Zinc Sulfate (Orazinc -) 220 mg NGT DAILY [facility] Last Admin: 07/13/16 09:28 Dose: Not Given A/P 80 year old woman with PMhx of Multiple GIANNI's, Hypernatremia, Hypertension, DM, HLD, GERD who presented from [place] with hypoxia and found to have Septic shock from UTI/Infected Sacral Decubitis Ulcers with GIANNI with Cr of 2.2 and worsening hypernatremia. #Poor oral intake Continue Clinimix at present rate Monitor electrolytes daily awaiting consent for peg as per PMD #Hypernatremia Serum Na stable continue present IVF #Septic Shock/UTI/Infected Sacral Decubitis Ulcers Afebrile now s/p Course of Abx s/p debridement of sacral decubitis #Hypophosphatemia Give IV K-phos today #Hypomagnesemia Give Mg Sulfate IV #Hypocalcemia Corrected CA is WNL Thank you Vahid Manzano DO
[2016-07-13] MEDS: INSULIN DETEMIR 100 UNITS/ML MDV SQ SCH (10:55)
[2016-07-13] MEDS: COLLAGENASE CLOSTRIDIUM HIST. 30 GRAMS TUBE TP SCH (10:58)
--- NOTE | 2016-07-13 11:16 | PN ---
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 (short form) - Note 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: more awake, afebrile since 07/10 NPO since 07/10- NGT could not be repositioned and was removed she pulled out the conley no diarrhea Vital Signs Period Temp Pulse Resp BP Sys/Chávez Pulse Ox Last 24 Hr 98.0 F-99.0 F 79-101 16-16 122-153/59-88 95-95 cor-rrr lungs decreased bs at bases abd soft, nt bilateral BKA sacral ulcer clean CBC, BMP 07/13/16 06:00 07/13/16 06:00 Microbiology 07/09/16 16:00 Blood Culture - Preliminary Blood - Arterial NO GROWTH OBTAINED AFTER 72 HOURS, INCUBATION TO CONTINUE FOR 2 DAYS. 07/09/16 16:00 Blood Culture - Preliminary Blood - Arterial NO GROWTH OBTAINED AFTER 72 HOURS, INCUBATION TO CONTINUE FOR 2 DAYS. 07/10/16 18:34 Clostridium difficile Antigen (JAKY) - Final Stool Clostridium difficile Toxin Assay - Final a/p afebrile now NPO- was she aspirating s/p debridement of sacral ulcer 07/08 s/p 9 days ertapenem for ecoli esbl UTI continue zosyn/diflucan day #4- possible pneumonia on chest ct wound care ?GT Problem List - Problems (1) Sepsis Code(s): A41.9 - SEPSIS, UNSPECIFIED ORGANISM Qualifiers: Qualified Code(s): A41.51 - Sepsis due to Escherichia coli [E. coli] (2) UTI (urinary tract infection) Code(s): N39.0 - URINARY TRACT INFECTION, SITE NOT SPECIFIED Qualifiers: Qualified Code(s): N30.00 - Acute cystitis without hematuria (3) Infected decubitus ulcer Code(s): L89.90 - PRESSURE ULCER OF UNSPECIFIED SITE, UNSPECIFIED STAGE
[2016-07-13] MEDS: FLUCONAZOLE 200 MG/NS 100 ML IVPB SCH (11:43)
[2016-07-13 14:13] LABS: HAPTOGLOBIN 353 mg/dL (34-200)
--- NOTE | 2016-07-13 21:08 | CON.GI ---
Consult Consult Specialty:: gastroenterology Referred by:: Dr Garcia - History of Present Illness History of Present Illness: 80 y/o female witih multiple medical problems including urosepsis, sacral decubiti, gram negative bacteremia was asked to be seen for PEG insertion. She was noted to have poor po intake. NGT was inserted but patient pulled the tube out.Possibly patient is aspirating. 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: Yes: CVA, Dementia Cardio/Vascular: Yes: CHF, HTN, Hyperlipdemia Pulmonary: Yes: COPD Gastrointestinal: Yes: GERD Renal/: Yes: Renal Inusuff Endocrine: Yes: Diabetes Mellitus - Alcohol/Substance Use Hx Alcohol Use: No - Smoking History Smoking history: Never smoked Have you smoked in the past 12 months: No Aproximately how many cigarettes per day: 0 - Social History Usual Living Arrangement: Care Home History of Recent Travel: No Home Medications - Allergies Allergies/Adverse Reactions: Allergies Allergy/AdvReac Type Severity Reaction Status Date / Time No Known Drug Allergies Allergy Verified 06/29/16 21:53 - Home Medications Home Medications: Ambulatory Orders Ascorbate Calcium [Vitamin C] 500 mg PO TID 03/24/16 Escitalopram Oxalate [Lexapro -] 10 mg PO DAILY 03/24/16 Metoprolol Succinate [Toprol XL -] 25 mg PO DAILY 03/24/16 Mirtazapine [Remeron -] 30 mg PO DAILY 03/24/16 Olanzapine [Zyprexa] 7.5 mg PO DAILY 03/24/16 Omeprazole 20 mg PO DAILY 03/24/16 Sennosides [Senna] 17.2 mg PO HS 03/24/16 Simvastatin 20 mg PO DAILY 03/24/16 Tamsulosin HCl [Flomax -] 0.8 mg PO DAILY 03/24/16 Vit B Cmplx 3/FA/Vit C/Biotin [Nephro-Rafael Rx Tablet] 1 each PO DAILY 03/24/16 Albuterol 2.5/Ipratropium 0.5 [Duoneb -] 1 amp NEB Q6H PRN #0 amp 04/20/16 Amino Acids/Protein Hydrolys [Prostat Sugar-Free Packet -] 30 ml PO BID@0800, 1730 packet 04/20/16 FENTANYL 12mcg PATCH [DURAGESIC 12mcg PATCH -] 1 patch TD Q72H patch.td72 MDD 1 04/20/16 Insulin Sliding Scale [Novolog Vial Sliding Scale -] 1 vial SQ ACHS units 04/20 Levofloxacin [Levaquin -] 250 mg PO DAILY tablet 04/20/16 Oxycodone HCl [Roxicodone -] 5 mg PO BID PRN #0 tablet MDD 2 04/20/16 Sodium Bicarbonate - 650 mg PO BID tablet 04/20/16 Zinc Sulfate [Orazinc -] 220 mg PO DAILY capsule 04/20/16 Acetaminophen [Tylenol] 650 mg PO Q4H PRN 06/30/16 Collagenase Clostridium Hist. [Santyl -] 1 applic TP DAILY 06/30/16 Darbepoetin Joseph in Polysorbat [Aranesp] 25 mcg SQ TH 06/30/16 Ferrous Sulfate [Feosol] 325 mg PO TID 06/30/16 Insulin Glargine,Hum.rec.anlog [Lantus Solostar PEN (NF)] 7 units SQ HS Insulin Glargine,Hum.rec.anlog [Lantus Solostar PEN (NF)] 12 units SQ 0900 06/30 Menthol/Zinc Oxide [Calmoseptine Ointment] 0 gm TP QID 06/30/16 Potassium Phosphate,Monobasic [K-Phos Original] 500 mg PO DAILY 06/30/16 Prochlorperazine Maleate [Compazine] 5 mg PO BID 06/30/16 Review of Systems Unable to obtain ROS, reason: underlying clinical condi Physical Exam-GI Vital Signs: Vital Signs Temperature 97.8 F 07/13/16 18:00 Pulse Rate 81 07/13/16 18:00 Respiratory Rate 18 07/13/16 18:00 Blood Pressure 115/57 07/13/16 18:00 O2 Sat by Pulse Oximetry (%) 97 07/13/16 10:00 Constitutional: Yes: No Distress Eyes: No: Sclera Icterus HENT: No: Atraumatic Neck: No: Trachea Midline Cardiovascular: No: Regular Rate and Rhythm Respiratory: Yes: Diminished (at the bases) ...Palpate: Yes: Soft. No: Hepatomegaly, Pulsatile Mass, Splenomegaly, Tenderness, Tenderness, Epigastium Labs: CBC, BMP 07/13/16 06:00 07/13/16 06:00 INR, PTT INR 1.08 (0.82-1.09) 07/01/16 01:45 Home Medications Medication Instructions Recorded Ascorbate Calcium [Vitamin C] 500 mg PO TID 03/24/16 Escitalopram Oxalate [Lexapro -] 10 mg PO DAILY 03/24/16 Metoprolol Succinate [Toprol XL -] 25 mg PO DAILY 03/24/16 Mirtazapine [Remeron -] 30 mg PO DAILY 03/24/16 Olanzapine [Zyprexa] 7.5 mg PO DAILY 03/24/16 Omeprazole 20 mg PO DAILY 03/24/16 Sennosides [Senna] 17.2 mg PO HS 03/24/16 Simvastatin 20 mg PO DAILY 03/24/16 Tamsulosin HCl [Flomax -] 0.8 mg PO DAILY 03/24/16 Vit B Cmplx 3/FA/Vit C/Biotin 1 each PO DAILY 03/24/16 [Nephro-Rafael Rx Tablet] Albuterol 2.5/Ipratropium 0.5 1 amp NEB Q6H PRN #0 amp 04/20/16 [Duoneb -] Amino Acids/Protein Hydrolys 30 ml PO BID@0800,1730 packet 04/20/16 [Prostat Sugar-Free Packet -] FENTANYL 12mcg PATCH [DURAGESIC 1 patch TD Q72H patch.td72 MDD 1 04/20/16 12mcg PATCH -] Insulin Sliding Scale [Novolog 1 vial SQ ACHS units 04/20/16 Vial Sliding Scale -] Levofloxacin [Levaquin -] 250 mg PO DAILY tablet 04/20/16 Oxycodone HCl [Roxicodone -] 5 mg PO BID PRN #0 tablet MDD 2 04/20/16 Sodium Bicarbonate - 650 mg PO BID tablet 04/20/16 Zinc Sulfate [Orazinc -] 220 mg PO DAILY capsule 04/20/16 Acetaminophen [Tylenol] 650 mg PO Q4H PRN 06/30/16 Collagenase Clostridium Hist. 1 applic TP DAILY 06/30/16 [Santyl -] Darbepoetin Joseph in Polysorbat 25 mcg SQ TH 06/30/16 [Aranesp] Ferrous Sulfate [Feosol] 325 mg PO TID 06/30/16 Insulin Glargine,Hum.rec.anlog 7 units SQ HS 06/30/16 [Lantus Solostar PEN (NF)] Insulin Glargine,Hum.rec.anlog 12 units SQ 0900 06/30/16 [Lantus Solostar PEN (NF)] Menthol/Zinc Oxide [Calmoseptine 0 gm TP QID 06/30/16 Ointment] Potassium Phosphate,Monobasic 500 mg PO DAILY 06/30/16 [K-Phos Original] Prochlorperazine Maleate 5 mg PO BID 06/30/16 [Compazine] INR, PTT INR 1.08 (0.82-1.09) 07/01/16 01:45 Assessment/Plan Failure to thrive, dysphagia R>left message with the family, of concern is the ability of the patient to pull out gastrostomy tube patient is scheduled tomorrow, will reach out to the family in am
[2016-07-13] MEDS: ATORVASTATIN CA 10 MG TABLET (FP) NGT SCH (22:01)
[2016-07-13] MEDS: MIRTAZAPINE 30 MG TABLET (FP) PO SCH (22:02)
[2016-07-13] MEDS: SENNOSIDES 8.6MG TABLET (FP) PO SCH (22:02)
[2016-07-14] MEDS: AMINO ACIDS 4.25%/D5W 1,000 ML IV SCH ×2 (05:48→20:34)
[2016-07-14 06:07] LABS: HEMATOCRIT 30.2 % (34.0-46.6)
[2016-07-14] MEDS: ALBUTEROL SO4 0.083% IH SOL 2.5 MG/3 ML VIAL.NEB. NEB SCH ×3 (06:15→18:57)
[2016-07-14] MEDS: IPRATROPIUM BR 0.02% 0.5 MG/2.5 ML VIAL.NEB. NEB SCH ×3 (06:15→18:57)
[2016-07-14] MEDS: ASCORBIC ACID 500 MG/5 ML UNIT DOSE CUP NGT SCH ×3 (06:41→21:45)
[2016-07-14] MEDS: INSULIN SLIDING SCALE (NOVOLOG) 1 VIAL SQ SCH ×4 (06:43→23:48)
[2016-07-14] MEDS: FERROUS SO4 325 MG TABLET (FP) PO SCH ×3 (07:46→18:01)
[2016-07-14] MEDS: TAMSULOSIN HCL 0.4 MG CAP.ER.24H (FP) PO SCH (07:46)
[2016-07-14] MEDS: AMINO ACIDS/PROTEIN HYDROLYS 30 ML LIQUID.PKT NGT SCH ×2 (07:46→18:01)
[2016-07-14 08:20] LABS: CALCIUM 7.8 mg/dL (8.5-10.1); COCKROFT - GAULT 59.5; CREATININE 0.6 mg/dL (0.55-1.02); MAGNESIUM 2.1 mg/dL (1.8-2.4); PHOSPHOROUS 2.3 mg/dL (2.5-4.9)
--- NOTE | 2016-07-14 09:13 | PN ---
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 (short form) - Note 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: more awake, afebrile since 07/10 NPO since 07/10- NGT could not be repositioned and was removed alert no diarrhea Vital Signs Period Temp Pulse Resp BP Sys/Chávez Pulse Ox Last 24 Hr 97.3 F-98.5 F 70-98 16-18 114-143/57-72 97-97 cor-rrr llungs decreased bs at bases abd soft,nt bilateral BKA CBC, BMP 07/13/16 06:00 07/14/16 07:00 a/p afebrile now NPO- afebrile since NPO- aspiration? s/p debridement of sacral ulcer 07/08 s/p 9 days ertapenem for ecoli esbl UTI continue zosyn/diflucan day #5- possible pneumonia on chest ct wound care ?GT Problem List - Problems (1) Sepsis Code(s): A41.9 - SEPSIS, UNSPECIFIED ORGANISM Qualifiers: Qualified Code(s): A41.51 - Sepsis due to Escherichia coli [E. coli] (2) UTI (urinary tract infection) Code(s): N39.0 - URINARY TRACT INFECTION, SITE NOT SPECIFIED Qualifiers: Qualified Code(s): N30.00 - Acute cystitis without hematuria (3) Infected decubitus ulcer Code(s): L89.90 - PRESSURE ULCER OF UNSPECIFIED SITE, UNSPECIFIED STAGE
[2016-07-14] MEDS: SODIUM BICARBONATE 650 MG TABLET PO SCH ×2 (09:36→21:42)
[2016-07-14] MEDS: ZINC SULFATE 220 MG CAPSULE (FP) NGT SCH (09:36)
[2016-07-14] MEDS: METOPROLOL TARTRATE 50 MG TABLET (FP) PO SCH ×2 (09:36→21:45)
[2016-07-14] MEDS: PANTOPRAZOLE 20 MG TABLET (FP) PO SCH (09:36)
[2016-07-14] MEDS: PROCHLORPERAZINE MALEATE 5 MG TABLET PO SCH (09:36)
[2016-07-14] MEDS: ESCITALOPRAM OXALATE 10 MG TABLET (FP) PO SCH (09:36)
[2016-07-14] MEDS: OLANZapine 5 MG TABLET PO SCH ×2 (09:36→21:42)
[2016-07-14] MEDS: COLLAGENASE CLOSTRIDIUM HIST. 30 GRAMS TUBE TP SCH (09:45)
[2016-07-14] MEDS: INSULIN DETEMIR 100 UNITS/ML MDV SQ SCH (09:50)
[2016-07-14] MEDS ORDERED: PT OWN MED DRAWER 7, Y5N ONE ×4 (09:52→17:15)
--- NOTE | 2016-07-14 10:08 | PN ---
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, Physician History of Present Illness: poor oral intake - Current Medication List Current Medications: Active Medications Acetaminophen (Ofirmev Injection -) 1,000 mg IVPB Q6H PRN Last Admin: 07/14/16 09:34 Dose: 1,000 mg Acetaminophen (Tylenol Suppository -) 650 mg [place] Q6H PRN PRN Reason: FEVER OR PAIN Last Admin: 07/10/16 14:00 Dose: 650 mg Acetaminophen (Tylenol -) 650 mg PO Q4H PRN PRN Reason: PAIN Albuterol Sulfate (Ventolin 0.083% Nebulizer Soln -) 1 amp NEB QIDR [facility] Last Admin: 07/14/16 06:15 Dose: 1 amp Amino Acids (Prosource No Carb Liquid Pkt) 30 ml NGT BID@0800,1730 [facility] Last Admin: 07/14/16 07:46 Dose: Not Given Ascorbic Acid (Vitamin C Oral Solution -) 500 mg NGT TID [facility] Last Admin: 07/14/16 06:41 Dose: Not Given Atorvastatin Calcium (Lipitor -) 10 mg NGT HS [facility] Last Admin: 07/13/16 22:01 Dose: Not Given Collagenase (Santyl -) 1 applic TP DAILY [facility] Last Admin: 07/14/16 09:45 Dose: 1 applic Escitalopram Oxalate (Lexapro -) 10 mg PO DAILY [facility] Last Admin: 07/14/16 09:36 Dose: Not Given Ferrous Sulfate (Feosol -) 325 mg PO TIDCM [facility] Last Admin: 07/14/16 07:46 Dose: Not Given Fluconazole (Diflucan 200 Mg/Ns Premixed Ivpb -) 100 mls @ 100 mls/hr IVPB DAILY [facility] Last Admin: 07/13/16 11:43 Dose: 100 mls/hr Amino Acids (Clinimix -) 1,000 mls @ 75 mls/hr IV Q13H [facility] Last Admin: 07/14/16 05:48 Dose: 75 mls/hr Ibuprofen (Caldolor Injection -) 400 mg IVPB Q6H PRN PRN Reason: FEVER Last Admin: 07/11/16 13:59 Dose: 400 mg Insulin Aspart (Novolog Vial Sliding Scale -) 1 vial SQ ACHS LARRY PRN Reason: Protocol Last Admin: 07/14/16 06:43 Dose: 5 units Insulin Detemir (Levemir Vial) 12 units SQ 0900 [facility] Last Admin: 07/14/16 09:50 Dose: Not Given Ipratropium [place] (Atrovent 0.02% Nebulizer -) 1 amp NEB Q6HPO [facility] Last Admin: 07/14/16 06:15 Dose: 1 amp Metoprolol Tartrate (Lopressor -) 50 mg PO BID [facility] Last Admin: 07/14/16 09:36 Dose: Not Given Mirtazapine (Remeron -) 30 mg PO HS [facility] Last Admin: 07/13/16 22:02 Dose: Not Given Non-Formulary Medication (Darbepoetin Joseph In Polysorbat [Aranesp]) 25 mcg SQ TH [facility] Olanzapine (Zyprexa -) 5 mg PO BID [facility] Last Admin: 07/14/16 09:36 Dose: Not Given Pantoprazole Sodium (Protonix -) 20 mg PO DAILY [facility] Last Admin: 07/14/16 09:36 Dose: Not Given Prochlorperazine Maleate (Compazine -) 5 mg PO BID [facility] Last Admin: 07/14/16 09:36 Dose: Not Given Senna (Senna -) 1 tab PO [facility] Last Admin: 07/13/16 22:02 Dose: Not Given Sodium Bicarbonate (Sodium Bicarbonate -) 650 mg PO BID [facility] Last Admin: 07/14/16 09:36 Dose: Not Given Tamsulosin HCl (Flomax -) 0.4 mg PO DAILY@0830 [facility] Last Admin: 07/14/16 07:46 Dose: Not Given Zinc Sulfate (Orazinc -) 220 mg NGT DAILY [facility] Last Admin: 07/14/16 09:36 Dose: Not Given - Objective Vital Signs: Vital Signs Temperature 97.3 F L 07/14/16 07:07 Pulse Rate 84 07/14/16 07:07 Respiratory Rate 18 07/14/16 07:07 Blood Pressure 143/66 07/14/16 07:07 O2 Sat by Pulse Oximetry (%) 97 07/13/16 21:00 Cardiovascular: Yes: S1, S2 Respiratory: Yes: Regular, CTA Bilaterally Gastrointestinal: Yes: Normal Bowel Sounds, Soft Extremities: Yes: Amputation Labs: CBC, BMP 07/13/16 06:00 07/14/16 07:00 INR, PTT INR 1.08 (0.82-1.09) 07/01/16 01:45 Problem List - Problems (1) Decubitus ulcer Assessment/Plan: Operative Date: 07/08/16 Pre-Operative Diagnosis: Sacral ulcer - necrotic Operation: Excisional debridment sacrum - skin, subucutaneous tissue, muscel Post-Operative Diagnosis: Same as Pre-op Surgeon: Felipe Rivers PER ID Code(s): L89.90 - PRESSURE ULCER OF UNSPECIFIED SITE, UNSPECIFIED STAGE (2) Anemia Assessment/Plan: MONITOR S/P TRANSFUSION HEM CONSULT Code(s): D64.9 - ANEMIA, UNSPECIFIED (3) Diabetes Assessment/Plan: MONITOR B/S ENDO CONSULT SS/ Laboratory Tests 07/08/16 07/08/16 07/08/16 11:26 17:55 23:01 POC Glucometer 292 173 194 07/09/16 05:41 POC Glucometer 241 Code(s): E11.9 - TYPE 2 DIABETES MELLITUS WITHOUT COMPLICATIONS (4) S/P bilateral below knee amputation Assessment/Plan: MONITOR Code(s): Z89.512 - ACQUIRED ABSENCE OF LEFT LEG BELOW KNEE Z89.511 - ACQUIRED ABSENCE OF RIGHT LEG BELOW KNEE (5) DVT, bilateral lower limbs Assessment/Plan: ON HEPARIN DRIP--CHANGE TO LOVENOX Code(s): I82.403 - ACUTE EMBOLISM AND THOMBOS UNSP DEEP VEINS OF LOW EXTRM, BI (6) UTI (urinary tract infection) Assessment/Plan: ABX CULTURES ID ON BOARD Code(s): N39.0 - URINARY TRACT INFECTION, SITE NOT SPECIFIED Qualifiers: Qualified Code(s): N30.00 - Acute cystitis without hematuria (7) Pneumonia Assessment/Plan: F/U CXR NOTED-- PNA--AFEBRILE ABX CT Code(s): J18.9 - PNEUMONIA, UNSPECIFIED ORGANISM Qualifiers: Qualified Code(s): J18.1 - Lobar pneumonia, unspecified organism (8) CKD (chronic kidney disease) Assessment/Plan: MONITOR IMPROVING Laboratory Tests 07/01/16 07/05/16 01:45 05:25 Creatinine 2.2 H 0.5 L D Code(s): N18.9 - CHRONIC KIDNEY DISEASE, UNSPECIFIED Assessment/Plan TACHYCARDIA IVF INCREASE LOPRESSOR 50 BID TFT CARDIO POOR ORAL INTAKE GI----PEG--D/W FAMILY THEY AGREE
[2016-07-14] MEDS: FLUCONAZOLE 200 MG/NS 100 ML IVPB SCH (10:14)
--- NOTE | 2016-07-14 10:52 | PN ---
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 Family in agreement per EMR Suggest use of GT to supplement PO intake. Diet recommendation for continued swallowing function and psychosocial benefit, as tolerated.- puree best, mixed with with liquid, to drink from a cup and nectar thick, Ensure compact.
[2016-07-14] MEDS ORDERED: POTASSIUM PHOSPHATE 30 MM in DEXTROSE 5%-WATER - 250 ML IVPB ONE (11:09)
--- NOTE | 2016-07-14 11:41 | PN ---
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 (short form) - Note 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: Renal Follow up for Hypernatremia Pt seen and examined at the bedside lethargic no overnight events for possible feeding tube placement today Vital Signs Temperature 97.3 F L 07/14/16 07:07 Pulse Rate 84 07/14/16 07:07 Respiratory Rate 18 07/14/16 09:00 Blood Pressure 143/66 07/14/16 07:07 O2 Sat by Pulse Oximetry (%) 96 07/14/16 09:00 Intake & Output 07/11/16 07/12/16 07/13/16 07/14/16 23:59 23:59 23:59 23:59 Intake Total 2663 950 1200 600 Output Total 1950 Balance 797 805 7165 600 Gen: NAD, awake CVS: RRR, No M/R Lungs: Dec BS, no rales Abd: soft NT/ND Ext: s/p B/L BKA, No LE edema CBC, BMP 07/13/16 06:00 07/14/16 07:00 Laboratory Tests 07/14/16 07:00 Calcium 7.8 L Phosphorus 2.3 L Magnesium 2.1 D Current Medications Acetaminophen (Ofirmev Injection -) 1,000 mg IVPB Q6H PRN Last Admin: 07/14/16 09:34 Dose: 1,000 mg Acetaminophen (Tylenol Suppository -) 650 mg ID Q6H PRN PRN Reason: FEVER OR PAIN Last Admin: 07/10/16 14:00 Dose: 650 mg Acetaminophen (Tylenol -) 650 mg PO Q4H PRN PRN Reason: PAIN Albuterol Sulfate (Ventolin 0.083% Nebulizer Soln -) 1 amp NEB QIDR [facility] Last Admin: 07/14/16 06:15 Dose: 1 amp Amino Acids (Prosource No Carb Liquid Pkt) 30 ml NGT BID@0800,1730 [facility] Last Admin: 07/14/16 07:46 Dose: Not Given Ascorbic Acid (Vitamin C Oral Solution -) 500 mg NGT TID [facility] Last Admin: 07/14/16 06:41 Dose: Not Given Atorvastatin Calcium (Lipitor -) 10 mg NGT HS [facility] Last Admin: 07/13/16 22:01 Dose: Not Given Collagenase (Santyl -) 1 applic TP DAILY [facility] Last Admin: 07/14/16 09:45 Dose: 1 applic Escitalopram Oxalate (Lexapro -) 10 mg PO DAILY [facility] Last Admin: 07/14/16 09:36 Dose: Not Given Ferrous Sulfate (Feosol -) 325 mg PO TIDCM [facility] Last Admin: 07/14/16 07:46 Dose: Not Given Fluconazole (Diflucan 200 Mg/Ns Premixed Ivpb -) 100 mls @ 100 mls/hr IVPB DAILY [facility] Last Admin: 07/14/16 10:14 Dose: 100 mls/hr Amino Acids (Clinimix -) 1,000 mls @ 75 mls/hr IV Q13H [facility] Last Admin: 07/14/16 05:48 Dose: 75 mls/hr Potassium Phosphate 30 mm/ (Dextrose) 260 mls @ 62.5 mls/hr IVPB ONCE ONE Stop: 07/14/16 15:18 Ibuprofen (Caldolor Injection -) 400 mg IVPB Q6H PRN PRN Reason: FEVER Last Admin: 07/11/16 13:59 Dose: 400 mg Insulin Aspart (Novolog Vial Sliding Scale -) 1 vial SQ ACHS [facility] PRN Reason: Protocol Last Admin: 07/14/16 06:43 Dose: 5 units Insulin Detemir (Levemir Vial) 12 units SQ 0900 [facility] Last Admin: 07/14/16 09:50 Dose: Not Given Ipratropium [place] (Atrovent 0.02% Nebulizer -) 1 amp NEB Q6HPO [facility] Last Admin: 07/14/16 06:15 Dose: 1 amp Metoprolol Tartrate (Lopressor -) 50 mg PO BID [facility] Last Admin: 07/14/16 09:36 Dose: Not Given Mirtazapine (Remeron -) 30 mg PO HS [facility] Last Admin: 07/13/16 22:02 Dose: Not Given Non-Formulary Medication (Darbepoetin Joseph In Polysorbat [Aranesp]) 25 mcg SQ TH [facility] Olanzapine (Zyprexa -) 5 mg PO BID [facility] Last Admin: 07/14/16 09:36 Dose: Not Given Pantoprazole Sodium (Protonix -) 20 mg PO DAILY [facility] Last Admin: 07/14/16 09:36 Dose: Not Given Prochlorperazine Maleate (Compazine -) 5 mg PO BID [facility] Last Admin: 07/14/16 09:36 Dose: Not Given Senna (Senna -) 1 tab PO HS [facility] Last Admin: 07/13/16 22:02 Dose: Not Given Sodium Bicarbonate (Sodium Bicarbonate -) 650 mg PO BID [facility] Last Admin: 07/14/16 09:36 Dose: Not Given Tamsulosin HCl (Flomax -) 0.4 mg PO DAILY@0830 [facility] Last Admin: 07/14/16 07:46 Dose: Not Given Zinc Sulfate (Orazinc -) 220 mg NGT DAILY [facility] Last Admin: 07/14/16 09:36 Dose: Not Given A/P 80 year old woman with PMhx of Multiple GIANNI's, Hypernatremia, Hypertension, DM, HLD, GERD who presented from [place] with hypoxia and found to have Septic shock from UTI/Infected Sacral Decubitis Ulcers with GIANNI with Cr of 2.2 and worsening hypernatremia. #Poor oral intake Continue Clinimix at present rate feeding tube placement today #Septic Shock/UTI/Infected Sacral Decubitis Ulcers Afebrile now s/p Course of Abx s/p debridement of sacral decubitis #Hypophosphatemia give additional K-phos IVPB today #Hypocalcemia Corrected CA is WNL Thank you Vahid Manzano DO
--- NOTE | 2016-07-14 13:15 | PN ---
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, Physician Chief Complaint: lethargic Telemetry PVC's, sinus tachycardia, brief self terminating runs of atrial tachycardia. History of Present Illness: 80F OMS, NHR, HTN, DM, CKD, GIANNI, GERD, CVA bilateral BKA, COPD admitted 06/30/16 fever sepsis with shock due to UTI and infected sacral decubitus ulcer. Was on pressors but now tapered off. Getting broad spectrum abx. Underwent debridement. Also found with bilateral DVT. On lovenox. Now held pending PEG. lethargic, still febrile. Echocardiogram 07/01/16 normal Ef moderate aortic sclerosis. Telemetry brief NSVT, occasional VPC's. Awaiting PEG due to poor oral intake. - Current Medication List Current Medications: Active Medications Acetaminophen (Ofirmev Injection -) 1,000 mg IVPB Q6H PRN Last Admin: 07/14/16 09:34 Dose: 1,000 mg Acetaminophen (Tylenol Suppository -) 650 mg [place] Q6H PRN PRN Reason: FEVER OR PAIN Last Admin: 07/10/16 14:00 Dose: 650 mg Acetaminophen (Tylenol -) 650 mg PO Q4H PRN PRN Reason: PAIN Albuterol Sulfate (Ventolin 0.083% Nebulizer Soln -) 1 amp NEB QIDR [facility] Last Admin: 07/14/16 12:04 Dose: 1 amp Amino Acids (Prosource No Carb Liquid Pkt) 30 ml NGT BID@0800,1730 [facility] Last Admin: 07/14/16 07:46 Dose: Not Given Ascorbic Acid (Vitamin C Oral Solution -) 500 mg NGT TID [facility] Last Admin: 07/14/16 06:41 Dose: Not Given Atorvastatin Calcium (Lipitor -) 10 mg NGT HS [facility] Last Admin: 07/13/16 22:01 Dose: Not Given Collagenase (Santyl -) 1 applic TP DAILY [facility] Last Admin: 07/14/16 09:45 Dose: 1 applic Escitalopram Oxalate (Lexapro -) 10 mg PO DAILY [facility] Last Admin: 07/14/16 09:36 Dose: Not Given Ferrous Sulfate (Feosol -) 325 mg PO TIDCM [facility] Last Admin: 07/14/16 12:36 Dose: Not Given Fluconazole (Diflucan 200 Mg/Ns Premixed Ivpb -) 100 mls @ 100 mls/hr IVPB DAILY [facility] Last Admin: 07/14/16 10:14 Dose: 100 mls/hr Amino Acids (Clinimix -) 1,000 mls @ 75 mls/hr IV Q13H [facility] Last Admin: 07/14/16 05:48 Dose: 75 mls/hr Potassium Phosphate 30 mm/ (Dextrose) 260 mls @ 43.33 mls/hr IVPB ONCE ONE PRN Reason: 30 MM/6 HR Stop: 07/14/16 17:09 Ibuprofen (Caldolor Injection -) 400 mg IVPB Q6H PRN PRN Reason: FEVER Last Admin: 07/11/16 13:59 Dose: 400 mg Insulin Aspart (Novolog Vial Sliding Scale -) 1 vial SQ ACHS [facility] PRN Reason: Protocol Last Admin: 07/14/16 12:37 Dose: Not Given Insulin Detemir (Levemir Vial) 12 units SQ 0900 [facility] Last Admin: 07/14/16 09:50 Dose: Not Given Ipratropium [place] (Atrovent 0.02% Nebulizer -) 1 amp NEB Q6HPO [facility] Last Admin: 07/14/16 12:04 Dose: 1 amp Metoprolol Tartrate (Lopressor -) 50 mg PO BID [facility] Last Admin: 07/14/16 09:36 Dose: Not Given Mirtazapine (Remeron -) 30 mg PO HS [facility] Last Admin: 07/13/16 22:02 Dose: Not Given Non-Formulary Medication (Darbepoetin Joseph In Polysorbat [Aranesp]) 25 mcg SQ TH [facility] Olanzapine (Zyprexa -) 5 mg PO BID [facility] Last Admin: 07/14/16 09:36 Dose: Not Given Pantoprazole Sodium (Protonix -) 20 mg PO DAILY [facility] Last Admin: 07/14/16 09:36 Dose: Not Given Prochlorperazine Maleate (Compazine -) 5 mg PO BID [facility] Last Admin: 07/14/16 09:36 Dose: Not Given Senna (Senna -) 1 tab PO HS [facility] Last Admin: 07/13/16 22:02 Dose: Not Given Sodium Bicarbonate (Sodium Bicarbonate -) 650 mg PO BID [facility] Last Admin: 07/14/16 09:36 Dose: Not Given Tamsulosin HCl (Flomax -) 0.4 mg PO DAILY@0830 [facility] Last Admin: 07/14/16 07:46 Dose: Not Given Zinc Sulfate (Orazinc -) 220 mg NGT DAILY [facility] Last Admin: 07/14/16 09:36 Dose: Not Given - Objective Vital Signs: Vital Signs Temperature 97.5 F L 07/14/16 10:00 Pulse Rate 87 07/14/16 12:03 Respiratory Rate 18 07/14/16 10:00 Blood Pressure 133/71 07/14/16 10:00 O2 Sat by Pulse Oximetry (%) 97 07/14/16 12:03 Constitutional: Yes: No Distress Eyes: Yes: WNL HENT: Yes: WNL Neck: Yes: WNL Cardiovascular: Yes: Regular Rate and Rhythm, S1, S2 Respiratory: Yes: WNL Gastrointestinal: Yes: Soft Extremities: Yes: Amputation Labs: CBC, BMP 07/13/16 06:00 07/14/16 07:00 INR, PTT INR 1.08 (0.82-1.09) 07/01/16 01:45 Assessment/Plan Tachycardia on telemetry is severe sinus tachycardia, now improved, due to DVT possible PE, sepsis, and metabolic stress of infection. This is a "noncardiac arrhythmia" the treatment of which is to control the noncardiac causes. Not in CHF. continue low dose beta leticia, avoid stimulants, continue abx. continue lovenox for dvt. will be appropriate candidate for novel anticoagulant when stable for dc and no further procedures needed. She has no cardiac contraindications to further PEG placement. Medically optimized. She is at low to intermediate risk of periop events but the benefits of infection treatment outweigh the risks. No treatment is needed for NSVT or brief atrial tachycardia in the setting of sepsis and normal EF on echocardiogram. Will follow as needed. Stable to DC telemetry.
--- NOTE | 2016-07-14 14:42 | PN ---
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, Physician History of Present Illness: pulmonary drowsy,nad,-congestion,-tachypnea - Current Medication List Current Medications: Active Medications Acetaminophen (Ofirmev Injection -) 1,000 mg IVPB Q6H PRN Last Admin: 07/14/16 09:34 Dose: 1,000 mg Acetaminophen (Tylenol Suppository -) 650 mg PA Q6H PRN PRN Reason: FEVER OR PAIN Last Admin: 07/10/16 14:00 Dose: 650 mg Acetaminophen (Tylenol -) 650 mg PO Q4H PRN PRN Reason: PAIN Albuterol Sulfate (Ventolin 0.083% Nebulizer Soln -) 1 amp NEB QIDR [facility] Last Admin: 07/14/16 12:04 Dose: 1 amp Amino Acids (Prosource No Carb Liquid Pkt) 30 ml NGT BID@0800,1730 [facility] Last Admin: 07/14/16 07:46 Dose: Not Given Ascorbic Acid (Vitamin C Oral Solution -) 500 mg NGT TID [facility] Last Admin: 07/14/16 13:16 Dose: Not Given Atorvastatin Calcium (Lipitor -) 10 mg NGT HS [facility] Last Admin: 07/13/16 22:01 Dose: Not Given Collagenase (Santyl -) 1 applic TP DAILY [facility] Last Admin: 07/14/16 09:45 Dose: 1 applic Escitalopram Oxalate (Lexapro -) 10 mg PO DAILY [facility] Last Admin: 07/14/16 09:36 Dose: Not Given Ferrous Sulfate (Feosol -) 325 mg PO TIDCM [facility] Last Admin: 07/14/16 12:36 Dose: Not Given Fluconazole (Diflucan 200 Mg/Ns Premixed Ivpb -) 100 mls @ 100 mls/hr IVPB DAILY [facility] Last Admin: 07/14/16 10:14 Dose: 100 mls/hr Amino Acids (Clinimix -) 1,000 mls @ 75 mls/hr IV Q13H [facility] Last Admin: 07/14/16 05:48 Dose: 75 mls/hr Potassium Phosphate 30 mm/ (Dextrose) 260 mls @ 43.33 mls/hr IVPB ONCE ONE PRN Reason: 30 MM/6 HR Stop: 07/14/16 17:09 Last Admin: 07/14/16 13:15 Dose: 43.33 mls/hr Ibuprofen (Caldolor Injection -) 400 mg IVPB Q6H PRN PRN Reason: FEVER Last Admin: 07/11/16 13:59 Dose: 400 mg Insulin Aspart (Novolog Vial Sliding Scale -) 1 vial SQ ACHS [facility] PRN Reason: Protocol Last Admin: 07/14/16 12:37 Dose: Not Given Insulin Detemir (Levemir Vial) 12 units SQ 0900 [facility] Last Admin: 07/14/16 09:50 Dose: Not Given Ipratropium [place] (Atrovent 0.02% Nebulizer -) 1 amp NEB Q6HPO [facility] Last Admin: 07/14/16 12:04 Dose: 1 amp Metoprolol Tartrate (Lopressor -) 50 mg PO BID [facility] Last Admin: 07/14/16 09:36 Dose: Not Given Mirtazapine (Remeron -) 30 mg PO HS [facility] Last Admin: 07/13/16 22:02 Dose: Not Given Non-Formulary Medication (Darbepoetin Joseph In Polysorbat [Aranesp]) 25 mcg SQ [facility] Olanzapine (Zyprexa -) 5 mg PO BID [facility] Last Admin: 07/14/16 09:36 Dose: Not Given Pantoprazole Sodium (Protonix -) 20 mg PO DAILY [facility] Last Admin: 07/14/16 09:36 Dose: Not Given Prochlorperazine Maleate (Compazine -) 5 mg PO BID [facility] Last Admin: 07/14/16 09:36 Dose: Not Given Senna (Senna -) 1 tab PO [facility] Last Admin: 07/13/16 22:02 Dose: Not Given Sodium Bicarbonate (Sodium Bicarbonate -) 650 mg PO BID [facility] Last Admin: 07/14/16 09:36 Dose: Not Given Tamsulosin HCl (Flomax -) 0.4 mg PO DAILY@0830 [facility] Last Admin: 07/14/16 07:46 Dose: Not Given Zinc Sulfate (Orazinc -) 220 mg NGT DAILY [facility] Last Admin: 07/14/16 09:36 Dose: Not Given - Objective Vital Signs: Vital Signs Temperature 97.5 F L 07/14/16 10:00 Pulse Rate 87 07/14/16 12:03 Respiratory Rate 18 07/14/16 10:00 Blood Pressure 133/71 07/14/16 10:00 O2 Sat by Pulse Oximetry (%) 97 07/14/16 12:03 Constitutional: Yes: Well Nourished, Other (drowsy) Eyes: Yes: WNL HENT: Yes: WNL Neck: Yes: WNL Cardiovascular: Yes: Regular Rate and Rhythm, S1, S2 Respiratory: Yes: Diminished (poor inspiratory effort) Gastrointestinal: Yes: Normal Bowel Sounds, Soft Extremities: Yes: WNL Edema: No Labs: CBC, BMP 07/13/16 06:00 07/14/16 07:00 INR, PTT INR 1.08 (0.82-1.09) 07/01/16 01:45 Assessment/Plan A/P Acute Hypoxic Respiratory Failure improved UTI Sacral Decubitus Ulcer Infection s/p sacral debridement Septic Shock resolving Lactic Acidosis improved Acute Kidney Injury resolving Bilateral DVTs HTN DM Dementia - monitor urine output, creatinine - glucose control - BiPAP as needed to assist in work of breathing - titrate FiO2 to keep SpO2 >90% - aspiration precautions - DVT/GI prophylaxis - chest x-ray - peg DR CONNER
[2016-07-14] MEDS ORDERED: ceFAZolin SODIUM 1 GM VIAL ONE (15:37)
[2016-07-14] MEDS ORDERED: CEFAZOLIN (PRE-DOCKED) 50 ML IVPB ONE ×2 (15:43→17:08)
[2016-07-14] MEDS ORDERED: METOCLOPRAMIDE HCL 10 MG TABLET (FP) PO SCH (16:45)
[2016-07-14] MEDS ORDERED: ACETAMINOPHEN 650 MG SUPP.RECT PR PRN (17:08)
[2016-07-14] MEDS ORDERED: IBUPROFEN 800 MG/8 ML IJ IVPB PRN (17:08)
[2016-07-14] MEDS ORDERED: ACETAMINOPHEN 325 MG TABLET (FP) PO PRN (17:08)
--- NOTE | 2016-07-14 18:57 | CONSULT ---
Consult Consult Specialty:: Rheumatology - History of Present Illness History of Present Illness: 80 year old female with history of dementia, NHR, HTN, DM, CKD, GERD, CVA, S/P bilateral BKA, COPD admitted on 06/30/16 with septic shock related to UTI and infected sacral decubitus ulcer. In hospital was found to have bilateral DVT, on lovenox and s/p PEG. The patient was found to have MYAH and rheumatoid factor positive - rule out connective tissue disease. The patient's daughter denied history of arthritis, skin rash, oral ulcers or fever not related to sepsis. 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: CVA, Dementia Cardio/Vascular: Yes: CHF, HTN, Hyperlipdemia Pulmonary: Yes: COPD Gastrointestinal: Yes: GERD Renal/: Yes: Renal Inusuff Endocrine: Yes: Diabetes Mellitus - Alcohol/Substance Use Hx Alcohol Use: No - Smoking History Smoking history: Never smoked Have you smoked in the past 12 months: No Aproximately how many cigarettes per day: 0 - Social History Usual Living Arrangement: Skilled Nursing History of Recent Travel: No Home Medications - Allergies Allergies/Adverse Reactions: Allergies Allergy/AdvReac Type Severity Reaction Status Date / Time No Known Drug Allergies Allergy Verified 06/29/16 21:53 - Home Medications Home Medications: Ambulatory Orders Ascorbate Calcium [Vitamin C] 500 mg PO TID 03/24/16 Escitalopram Oxalate [Lexapro -] 10 mg PO DAILY 03/24/16 Metoprolol Succinate [Toprol XL -] 25 mg PO DAILY 03/24/16 Mirtazapine [Remeron -] 30 mg PO DAILY 03/24/16 Olanzapine [Zyprexa] 7.5 mg PO DAILY 03/24/16 Omeprazole 20 mg PO DAILY 03/24/16 Sennosides [Senna] 17.2 mg PO HS 03/24/16 Simvastatin 20 mg PO DAILY 03/24/16 Tamsulosin HCl [Flomax -] 0.8 mg PO DAILY 03/24/16 Vit B Cmplx 3/FA/Vit C/Biotin [Nephro-Rafael Rx Tablet] 1 each PO DAILY 03/24/16 Albuterol 2.5/Ipratropium 0.5 [Duoneb -] 1 amp NEB Q6H PRN #0 amp 04/20/16 Amino Acids/Protein Hydrolys [Prostat Sugar-Free Packet -] 30 ml PO BID@0800, 1730 packet 04/20/16 FENTANYL 12mcg PATCH [DURAGESIC 12mcg PATCH -] 1 patch TD Q72H patch.td72 MDD 1 04/20/16 Insulin Sliding Scale [Novolog Vial Sliding Scale -] 1 vial SQ ACHS units 04/20 Levofloxacin [Levaquin -] 250 mg PO DAILY tablet 04/20/16 Oxycodone HCl [Roxicodone -] 5 mg PO BID PRN #0 tablet MDD 2 04/20/16 Sodium Bicarbonate - 650 mg PO BID tablet 04/20/16 Zinc Sulfate [Orazinc -] 220 mg PO DAILY capsule 04/20/16 Acetaminophen [Tylenol] 650 mg PO Q4H PRN 06/30/16 Collagenase Clostridium Hist. [Santyl -] 1 applic TP DAILY 06/30/16 Darbepoetin Joseph in Polysorbat [Aranesp] 25 mcg SQ TH 06/30/16 Ferrous Sulfate [Feosol] 325 mg PO TID 06/30/16 Insulin Glargine,Hum.rec.anlog [Lantus Solostar PEN (NF)] 7 units SQ HS Insulin Glargine,Hum.rec.anlog [Lantus Solostar PEN (NF)] 12 units SQ 0900 06/30 Menthol/Zinc Oxide [Calmoseptine Ointment] 0 gm TP QID 06/30/16 Potassium Phosphate,Monobasic [K-Phos Original] 500 mg PO DAILY 06/30/16 Prochlorperazine Maleate [Compazine] 5 mg PO BID 06/30/16 Review of Systems - Review of Systems Eyes: reports: No Symptoms HENT: reports: No Symptoms Neck: reports: No Symptoms Musculoskeletal: reports: No Symptoms Integumentary: reports: Other (Decubitus ulcers) Psychiatric: reports: Other (Dementia) Physical Exam Vital Signs: Vital Signs Temperature 97.5 F L 07/14/16 17:42 Pulse Rate 79 07/14/16 17:42 Respiratory Rate 20 07/14/16 17:42 Blood Pressure 123/60 07/14/16 17:42 O2 Sat by Pulse Oximetry (%) 97 07/14/16 16:55 Constitutional: Yes: Mild Distress Eyes: Yes: WNL HENT: Yes: WNL Neck: Yes: WNL Cardiovascular: Yes: WNL Gastrointestinal: Yes: WNL Extremities: Yes: Other (No active joints) Labs: CBC, BMP 07/13/16 06:00 07/14/16 07:00 Laboratory Tests 07/09/16 07/11/16 07/11/16 16:00 06:20 06:20 ESR 95 H Haptoglobin 353 H Urine Color Yellow Urine Appearance Cloudy Ur Specific Hana 1.021 Urine Protein 2+ H Urine Glucose (UA) 3+ H Urine Ketones Negative Urine Blood 1+ H Urine Nitrite Negative Urine Bilirubin Negative Urine Urobilinogen Negative Ur Leukocyte Esterase 2+ H Urine RBC 46 Urine WBC 86 Rheumatoid Factor MYAH Screen Positive H MYAH Speckled Pattern 1:80 07/11/16 06:20 ESR Haptoglobin Urine Color Urine Appearance Ur Specific Hana Urine Protein Urine Glucose (UA) Urine Ketones Urine Blood Urine Nitrite Urine Bilirubin Urine Urobilinogen Ur Leukocyte Esterase Urine RBC Urine WBC Rheumatoid Factor 91.0 H MYAH Screen MYAH Speckled Pattern Assessment/Plan Rheumatoid factor and MYAH positive with no inflammatory arthritis or stigmata of chronic arthritis. Probable false positive tests related to age and possibly chronic infection. Rule out paraproteinemia. It is unlikely that she has a connective tissue disease. Plan: protein electrophoresis (for M spike), CH50. I did not prescribe medications
[2016-07-14] MEDS: ATORVASTATIN CA 10 MG TABLET (FP) NGT SCH (21:43)
[2016-07-14] MEDS ORDERED: MIRTAZAPINE 15 MG TABLET (FP) PO SCH (22:00)
[2016-07-14] MEDS ORDERED: SENNOSIDES 8.6MG TABLET (FP) PO SCH (22:00)
[2016-07-14] MEDS ORDERED: PROCHLORPERAZINE MALEATE 5 MG TABLET PO SCH (22:00)
[2016-07-15] MEDS: IPRATROPIUM BR 0.02% 0.5 MG/2.5 ML VIAL.NEB. NEB SCH ×5 (00:15→23:29)
[2016-07-15] MEDS: ALBUTEROL SO4 0.083% IH SOL 2.5 MG/3 ML VIAL.NEB. NEB SCH ×5 (00:15→23:30)
[2016-07-15] MEDS ORDERED: DARBEPOETIN ALFA IN POLYSORBAT 25 MCG SQ SCH (01:03)
[2016-07-15] MEDS ORDERED: AMINO ACIDS 4.25%/D5W 1,000 ML IV SCH (04:00)
[2016-07-15] MEDS ORDERED: PT OWN MED DRAWER 7, Y5N ONE ×6 (05:43→20:51)
[2016-07-15] MEDS: ASCORBIC ACID 500 MG/5 ML UNIT DOSE CUP NGT SCH ×3 (06:04→21:54)
[2016-07-15] MEDS: METOCLOPRAMIDE HCL 10 MG TABLET (FP) PO SCH ×2 (06:05→10:54)
[2016-07-15] MEDS: INSULIN SLIDING SCALE (NOVOLOG) 1 VIAL SQ SCH ×4 (06:11→22:00)
[2016-07-15] MEDS ORDERED: INSULIN (NOVOLOG) ASPART 100 UNITS/ML 10ML VIAL ONE ×2 (06:11→06:22)
--- NOTE | 2016-07-15 07:54 | PN ---
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, Physician History of Present Illness: S/P PEG - Current Medication List Current Medications: Active Medications Acetaminophen (Tylenol -) 650 mg PO Q4H PRN PRN Reason: PAIN Last Admin: 07/14/16 21:43 Dose: 650 mg Acetaminophen (Ofirmev Injection -) 1,000 mg IVPB Q6H PRN PRN Reason: PAIN Acetaminophen (Tylenol Suppository -) [address] Q6H PRN PRN Reason: FEVER OR PAIN Albuterol Sulfate (Ventolin 0.083% Nebulizer Soln -) 1 amp NEB QIDR [facility] Last Admin: 07/15/16 06:40 Dose: 1 amp Amino Acids (Prosource No Carb Liquid Pkt) 30 ml NGT BID@0800,1730 [facility] Last Admin: 07/14/16 18:01 Dose: 30 ml Ascorbic Acid (Vitamin C Oral Solution -) 500 mg NGT TID [facility] Last Admin: 07/15/16 06:04 Dose: 500 mg Atorvastatin Calcium (Lipitor -) 10 mg NGT HS [facility] Last Admin: 07/14/16 21:43 Dose: 10 mg Collagenase (Santyl -) 1 applic TP DAILY [facility] Escitalopram Oxalate (Lexapro -) 10 mg PO DAILY [facility] Ferrous Sulfate (Feosol -) 325 mg PO TIDCM [facility] Last Admin: 07/14/16 18:01 Dose: 325 mg Fluconazole (Diflucan 200 Mg/Ns Premixed Ivpb -) 100 mls @ 100 mls/hr IVPB DAILY [facility] Insulin Aspart (Novolog Vial Sliding Scale -) 1 vial SQ ACHS [facility] PRN Reason: Protocol Last Admin: 07/15/16 06:11 Dose: 5 units Insulin Detemir (Levemir Vial) 12 units SQ 0900 [facility] Ipratropium [place] (Atrovent 0.02% Nebulizer -) 1 amp NEB Q6HPO [facility] Last Admin: 07/15/16 06:40 Dose: 1 amp Metoclopramide HCl (Reglan -) 5 mg PO TIDAC [facility] Last Admin: 07/15/16 06:05 Dose: 5 mg Metoprolol Tartrate (Lopressor -) 50 mg PO BID [facility] Last Admin: 07/14/16 21:45 Dose: 50 mg Mirtazapine (Remeron -) 30 mg PO HS [facility] Last Admin: 04/19/17 21:42 Dose: 30 mg Non-Formulary Medication (Darbepoetin Joseph In Polysorbat [Aranesp]) 25 mcg SQ TH [facility] Olanzapine (Zyprexa -) 5 mg PO BID [facility] Last Admin: 07/14/16 21:42 Dose: 5 mg Pantoprazole Sodium (Protonix -) 20 mg PO DAILY [facility] Senna (Senna -) 1 tab PO HS [facility] Last Admin: 07/14/16 21:45 Dose: 1 tab Sodium Bicarbonate (Sodium Bicarbonate -) 650 mg PO BID [facility] Last Admin: 07/14/16 21:42 Dose: 650 mg Tamsulosin HCl (Flomax -) 0.4 mg PO DAILY@0830 [facility] Zinc Sulfate (Orazinc -) 220 mg NGT DAILY [facility] - Objective Vital Signs: Vital Signs Temperature 97.7 F 07/15/16 06:00 Pulse Rate 82 07/15/16 06:00 Respiratory Rate 18 07/15/16 06:00 Blood Pressure 128/62 07/15/16 06:00 O2 Sat by Pulse Oximetry (%) 94 L 07/14/16 22:00 Cardiovascular: Yes: Regular Rate and Rhythm Respiratory: Yes: Regular, CTA Bilaterally Gastrointestinal: Yes: Normal Bowel Sounds, Soft Labs: CBC, BMP 07/13/16 06:00 07/14/16 07:00 INR, PTT INR 1.08 (0.82-1.09) 07/01/16 01:45 Problem List - Problems (1) Decubitus ulcer Assessment/Plan: Operative Date: 07/08/16 Pre-Operative Diagnosis: Sacral ulcer - necrotic Operation: Excisional debridment sacrum - skin, subucutaneous tissue, muscel Post-Operative Diagnosis: Same as Pre-op Surgeon: Felipe Rivers PER ID Code(s): L89.90 - PRESSURE ULCER OF UNSPECIFIED SITE, UNSPECIFIED STAGE (2) Anemia Assessment/Plan: MONITOR S/P TRANSFUSION HEM CONSULT Code(s): D64.9 - ANEMIA, UNSPECIFIED (3) Diabetes Assessment/Plan: MONITOR B/S ENDO CONSULT SS/ Laboratory Tests 07/08/16 07/08/16 07/08/16 11:26 17:55 23:01 POC Glucometer 292 173 194 07/09/16 05:41 POC Glucometer 241 Code(s): E11.9 - TYPE 2 DIABETES MELLITUS WITHOUT COMPLICATIONS (4) S/P bilateral below knee amputation Assessment/Plan: MONITOR Code(s): Z89.512 - ACQUIRED ABSENCE OF LEFT LEG BELOW KNEE Z89.511 - ACQUIRED ABSENCE OF RIGHT LEG BELOW KNEE (5) DVT, bilateral lower limbs Assessment/Plan: ON HEPARIN DRIP--CHANGE TO LOVENOX Code(s): I82.403 - ACUTE EMBOLISM AND THOMBOS UNSP DEEP VEINS OF LOW EXTRM, BI (6) UTI (urinary tract infection) Assessment/Plan: ABX CULTURES ID ON BOARD Code(s): N39.0 - URINARY TRACT INFECTION, SITE NOT SPECIFIED Qualifiers: Qualified Code(s): N30.00 - Acute cystitis without hematuria (7) Pneumonia Assessment/Plan: F/U CXR NOTED-- PNA--AFEBRILE ABX NPO---S/P PEG Code(s): J18.9 - PNEUMONIA, UNSPECIFIED ORGANISM Qualifiers: Qualified Code(s): J18.1 - Lobar pneumonia, unspecified organism (8) CKD (chronic kidney disease) Assessment/Plan: MONITOR IMPROVING Laboratory Tests 07/01/16 07/05/16 01:45 05:25 Creatinine 2.2 H 0.5 L D Code(s): N18.9 - CHRONIC KIDNEY DISEASE, UNSPECIFIED Assessment/Plan POOR ORAL INTAKE GI----PEG--D/W FAMILY THEY AGREE PEG PLACED
--- NOTE | 2016-07-15 08:45 | PN ---
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 (short form) - Note 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: Lethargic but in NAD on NC O2. Afebrile. No documented acute events overnight. Intake & Output 07/12/16 07/13/16 07/14/16 07/15/16 23:59 23:59 23:59 23:59 Intake Total 950 1200 1000 945 Output Total 0 Balance 950 1200 1000 945 Last Vital Signs Temp Pulse Resp BP Pulse Ox 97.7 F 82 18 128/62 94 L 07/15/16 06:00 07/15/16 06:00 07/15/16 06:00 07/15/16 06:00 07/14/16 22:00 Active Medications Acetaminophen (Tylenol -) 650 mg PO Q4H PRN PRN Reason: PAIN Last Admin: 07/14/16 21:43 Dose: 650 mg Acetaminophen (Ofirmev Injection -) 1,000 mg IVPB Q6H PRN PRN Reason: PAIN Acetaminophen (Tylenol Suppository -) 650 mg MS Q6H PRN PRN Reason: FEVER OR PAIN Albuterol Sulfate (Ventolin 0.083% Nebulizer Soln -) 1 amp NEB QIDR [facility] Last Admin: 07/15/16 06:40 Dose: 1 amp Amino Acids (Prosource No Carb Liquid Pkt) 30 ml NGT BID@0800,1730 [facility] Last Admin: 07/14/16 18:01 Dose: 30 ml Ascorbic Acid (Vitamin C Oral Solution -) 500 mg NGT TID [facility] Last Admin: 07/15/16 06:04 Dose: 500 mg Atorvastatin Calcium (Lipitor -) 10 mg NGT HS [facility] Last Admin: 07/14/16 21:43 Dose: 10 mg Collagenase (Santyl -) 1 applic TP DAILY [facility] Escitalopram Oxalate (Lexapro -) 10 mg PO DAILY [facility] Ferrous Sulfate (Feosol -) 325 mg PO TIDCM [facility] Last Admin: 07/14/16 18:01 Dose: 325 mg Fluconazole (Diflucan 200 Mg/Ns Premixed Ivpb -) 100 mls @ 100 mls/hr IVPB DAILY [facility] Insulin Aspart (Novolog Vial Sliding Scale -) 1 vial SQ ACHS [facility] PRN Reason: Protocol Last Admin: 07/15/16 06:11 Dose: 5 units Insulin Detemir (Levemir Vial) 12 units SQ 0900 [facility] Ipratropium [place] (Atrovent 0.02% Nebulizer -) 1 amp NEB Q6HPO [facility] Last Admin: 07/15/16 06:40 Dose: 1 amp Metoclopramide HCl (Reglan -) 5 mg PO TIDAC [facility] Last Admin: 07/15/16 06:05 Dose: 5 mg Metoprolol Tartrate (Lopressor -) 50 mg PO BID [facility] Last Admin: 07/14/16 21:45 Dose: 50 mg Mirtazapine (Remeron -) 30 mg PO HS [facility] Last Admin: 07/14/16 21:42 Dose: 30 mg Non-Formulary Medication (Darbepoetin Joseph In Polysorbat [Aranesp]) 25 mcg SQ TH [facility] Olanzapine (Zyprexa -) 5 mg PO BID [facility] Last Admin: 07/14/16 21:42 Dose: 5 mg Pantoprazole Sodium (Protonix -) 20 mg PO DAILY [facility] Senna (Senna -) 1 tab PO HS [facility] Last Admin: 07/14/16 21:45 Dose: 1 tab Sodium Bicarbonate (Sodium Bicarbonate -) 650 mg PO BID [facility] Last Admin: 07/14/16 21:42 Dose: 650 mg Tamsulosin HCl (Flomax -) 0.4 mg PO DAILY@0830 [facility] Zinc Sulfate (Orazinc -) 220 mg NGT DAILY [facility] Constitutional: Yes: Lethargy Eyes: Yes: WNL HENT: Yes: WNL Neck: Yes: WNL Cardiovascular: Yes: Regular Rate and Rhythm, S1, S2 Respiratory: Yes: few scattered rhonchi Gastrointestinal: Yes: Normal Bowel Sounds, Soft Extremities: Yes: WNL Edema: No Labs: Laboratory Results - last 24 hr 07/10/16 07/14/16 07/14/16 10:45 09:49 23:10 POC Glucometer 225 126 Blood Type O POSITIVE Antibody Screen Positive H Antibody Identification WARM AUTOIMMUNE HEMO ANEMIA Direct Antiglob 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
[2016-07-15] MEDS: AMINO ACIDS/PROTEIN HYDROLYS 30 ML LIQUID.PKT NGT SCH ×2 (08:52→16:51)
[2016-07-15] MEDS ORDERED: INSULIN DETEMIR 100 UNITS/ML MDV SQ SCH (09:00)
[2016-07-15 09:04] LABS: BASOPHIL 0.4 % (0-2.0); MCH 30.2 pg (25.7-33.7); MCHC 33.2 g/dl (32.0-36.0); NEUTROPHILS 70.9 % (42.8-82.8); PLATELET COUNT 327 K/MM3 (134-434); RDW 16.3 % (11.6-15.6)
[2016-07-15] MEDS: TAMSULOSIN HCL 0.4 MG CAP.ER.24H (FP) PO SCH (09:05)
[2016-07-15] MEDS: FERROUS SO4 325 MG TABLET (FP) PO SCH ×2 (09:05→13:16)
[2016-07-15 09:22] LABS: ALBUMIN 1.5 g/dl (3.4-5.0); ANION GAP 8 (8-16); CALCIUM 8.1 mg/dL (8.5-10.1); CO2 27 mmol/L (21-32); GLUCOSE,RANDOM 257 mg/dL (74-106); SGOT/AST 16 U/L (15-37)
[2016-07-15 09:24] LABS: ALK PHOS 85 U/L (45-117); BILIRUBIN,TOTAL 0.2 mg/dL (0.2-1.0); CREATININE 0.6 mg/dL (0.55-1.02); SGPT/ALT 9 U/L (12-78)
[2016-07-15] MEDS ORDERED: FLUCONAZOLE 200 MG/NS 100 ML IVPB SCH (10:00)
[2016-07-15] MEDS ORDERED: PANTOPRAZOLE 20 MG TABLET (FP) PO SCH (10:00)
[2016-07-15] MEDS ORDERED: ESCITALOPRAM OXALATE 10 MG TABLET (FP) PO SCH (10:00)
[2016-07-15] MEDS: SODIUM BICARBONATE 650 MG TABLET PO SCH (10:55)
[2016-07-15] MEDS: METOPROLOL TARTRATE 50 MG TABLET (FP) PO SCH (10:56)
[2016-07-15] MEDS: COLLAGENASE CLOSTRIDIUM HIST. 30 GRAMS TUBE TP SCH (10:56)
[2016-07-15] MEDS: ZINC SULFATE 220 MG CAPSULE (FP) NGT SCH (10:56)
[2016-07-15] MEDS: OLANZapine 5 MG TABLET PO SCH (10:57)
--- NOTE | 2016-07-15 14:42 | PN ---
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 (short form) - Note 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: more awake, afebrile since 07/10 s/p GT yesterday no diarrhea Vital Signs Period Temp Pulse Resp BP Sys/Chávez Pulse Ox Last 24 Hr 97.5 F-99 F 66-103 15-20 85-128/45-69 94-97 cor-rrr llungs clear, decreased bs at bases abd soft,nt +binder ext bilateral bka Microbiology 07/09/16 16:00 Blood - Arterial Blood Culture - Final NO GROWTH AFTER 5 DAYS INCUBATION 07/09/16 16:00 Blood - Arterial Blood Culture - Final NO GROWTH AFTER 5 DAYS INCUBATION a/p agree with d/c iv antibiotics can switch to po diflucan for another 48hours local wound care for decubitus ulcer please call back if needed Problem List - Problems (1) Sepsis Code(s): A41.9 - SEPSIS, UNSPECIFIED ORGANISM Qualifiers: Qualified Code(s): A41.51 - Sepsis due to Escherichia coli [E. coli] (2) UTI (urinary tract infection) Code(s): N39.0 - URINARY TRACT INFECTION, SITE NOT SPECIFIED Qualifiers: Qualified Code(s): N30.00 - Acute cystitis without hematuria (3) Infected decubitus ulcer Code(s): L89.90 - PRESSURE ULCER OF UNSPECIFIED SITE, UNSPECIFIED STAGE
[2016-07-15] MEDS: ACETAMINOPHEN 650 MG/20.3 ML ORAL SOLUTION (CUPS) GT PRN (16:51)
[2016-07-15] MEDS: FERROUS SO4 300 MG/5 ML ORAL SOLN UNIT DOSE CUPS GT SCH (16:51)
[2016-07-15] MEDS: METOCLOPRAMIDE HCL 5 MG/5 ML UNIT DOSE CUP GT SCH (16:52)
[2016-07-15] MEDS: BACITRACIN 30 GM TUBE TOPICAL OINTMENT TP SCH (18:44)
[2016-07-15] MEDS: SODIUM BICARBONATE 650 MG TABLET GT SCH (21:53)
[2016-07-15] MEDS: MIRTAZAPINE 15 MG TABLET (FP) GT SCH (21:53)
[2016-07-15] MEDS: OLANZapine 5 MG TABLET GT SCH (21:54)
[2016-07-15] MEDS: METOPROLOL TARTRATE 50 MG TABLET (FP) GT SCH (21:54)
[2016-07-15] MEDS: ATORVASTATIN CA 10 MG TABLET (FP) NGT SCH (21:54)
[2016-07-15] MEDS: SENNOSIDES 8.8 MG/5 ML BULK BOTTLE GT SCH ×2 (22:40→23:10)
[2016-07-16] MEDS ORDERED: PT OWN MED DRAWER 7, Y5N ONE ×6 (00:31→21:08)
[2016-07-16] MEDS: ASCORBIC ACID 500 MG/5 ML UNIT DOSE CUP NGT SCH ×3 (06:01→21:26)
[2016-07-16] MEDS: METOCLOPRAMIDE HCL 5 MG/5 ML UNIT DOSE CUP GT SCH ×3 (06:02→17:23)
[2016-07-16] MEDS: INSULIN SLIDING SCALE (NOVOLOG) 1 VIAL SQ SCH ×4 (06:02→21:33)
[2016-07-16] MEDS: IPRATROPIUM BR 0.02% 0.5 MG/2.5 ML VIAL.NEB. NEB SCH ×3 (07:09→23:46)
[2016-07-16] MEDS: ALBUTEROL SO4 0.083% IH SOL 2.5 MG/3 ML VIAL.NEB. NEB SCH ×4 (07:09→23:46)
--- NOTE | 2016-07-16 07:44 | PN ---
[id number] (Ofirmev Injection -) 1,000 mg IVPB Q6H PRN PRN Reason: PAIN Acetaminophen (Tylenol Suppository -) 650 mg [place] Q6H PRN PRN Reason: FEVER OR PAIN Acetaminophen (Tylenol Oral Solution -) 650 mg [place] Q4H PRN PRN Reason: PAIN Last Admin: 07/15/16 16:51 Dose: 650 mg Albuterol Sulfate (Ventolin 0.083% Nebulizer Soln -) 1 amp NEB QIDR [facility] Last Admin: 07/16/16 07:09 Dose: 1 amp Amino Acids (Prosource No Carb Liquid Pkt) 30 ml NGT BID@0800,1730 [facility] Last Admin: 07/15/16 16:51 Dose: 30 ml Ascorbic Acid (Vitamin C Oral Solution -) 500 mg NGT TID [facility] Last Admin: 07/16/16 06:01 Dose: 500 mg Atorvastatin Calcium (Lipitor -) 10 mg NGT HS [facility] Last Admin: 07/15/16 21:54 Dose: 10 mg Bacitracin (Bacitracin -) 1 applic TP DAILY [facility] Last Admin: 07/15/16 18:44 Dose: 1 applic Collagenase (Santyl -) 1 applic TP DAILY [facility] Last Admin: 07/15/16 10:56 Dose: 1 applic Escitalopram Oxalate (Lexapro -) 10 mg GT DAILY [facility] Ferrous Sulfate (Feosol) 300 mg GT TIDCM [facility] Last Admin: 07/15/16 16:51 Dose: 300 mg Fluconazole (Diflucan -) 100 mg GT DAILY [facility] Stop: 07/17/16 10:01 Insulin Aspart (Novolog Vial Sliding Scale -) 1 vial SQ ACHS [facility] PRN Reason: Protocol Last Admin: 07/16/16 06:02 Dose: 7 units Insulin Detemir (Levemir Vial) 12 units SQ 0900 [facility] Last Admin: 07/15/16 10:57 Dose: 12 units Ipratropium [place] (Atrovent 0.02% Nebulizer -) 1 amp NEB Q6HPO [facility] Last Admin: 07/16/16 07:09 Dose: 1 amp Metoclopramide HCl (Reglan Oral Solution -) 5 mg GT TIDAC [facility] Last Admin: 07/16/16 06:02 Dose: 5 mg Metoprolol Tartrate (Lopressor -) 50 mg GT BID [facility] Last Admin: 07/15/16 21:54 Dose: 50 mg Mirtazapine (Remeron -) 30 mg GT HS [facility] Last Admin: 07/15/16 21:53 Dose: 30 mg Non-Formulary Medication (Darbepoetin Joseph In Polysorbat [Aranesp]) 25 mcg SQ TH [facility] Olanzapine (Zyprexa -) 5 mg GT BID [facility] Last Admin: 07/15/16 21:54 Dose: 5 mg Ranitidine HCl (Zantac Oral Solution -) 150 mg GT DAILY [facility] Senna (Senna Oral Solution -) 8.8 mg GT HS [facility] Last Admin: 07/15/16 23:10 Dose: Not Given Sodium Bicarbonate (Sodium Bicarbonate -) 650 mg GT BID [facility] Last Admin: 07/15/16 21:53 Dose: 650 mg Tamsulosin HCl (Flomax -) 0.4 mg PO DAILY@0830 [facility] Last Admin: 07/15/16 09:05 Dose: 0.4 mg Zinc Sulfate (Orazinc -) 220 mg NGT DAILY [facility] Last Admin: 07/15/16 10:56 Dose: 220 mg - Objective Vital Signs: Vital Signs Temperature 100.2 F H 07/16/16 06:00 Pulse Rate 89 07/16/16 06:00 Respiratory Rate 20 07/16/16 06:00 Blood Pressure 132/53 07/16/16 06:00 O2 Sat by Pulse Oximetry (%) 97 07/15/16 21:00 Constitutional: Yes: Calm Neck: Yes: WNL Cardiovascular: Yes: WNL Respiratory: Yes: WNL Gastrointestinal: Yes: WNL Edema: No Labs: CBC, BMP 07/15/16 08:23 07/15/16 08:23 INR, PTT INR 1.08 (0.82-1.09) 07/01/16 01:45 Problem List - Problems (1) Pneumonia Code(s): J18.9 - PNEUMONIA, UNSPECIFIED ORGANISM Qualifiers: Qualified Code(s): J18.1 - Lobar pneumonia, unspecified organism (2) Type 2 diabetes mellitus with hyperosmolarity without nonketotic hyperglycemic-hyperosmolar coma ([facility]) Code(s): E11.00 - TYPE 2 DIAB W HYPROSM W/O NONKET HYPRGLY-HYPROS COMA ([facility]) (3) UTI (urinary tract infection) Code(s): N39.0 - URINARY TRACT INFECTION, SITE NOT SPECIFIED Qualifiers: Qualified Code(s): N30.00 - Acute cystitis without hematuria (4) Anemia Code(s): D64.9 - ANEMIA, UNSPECIFIED (5) CHF (congestive heart failure) Code(s): I50.9 - HEART FAILURE, UNSPECIFIED Qualifiers: Qualified Code(s): I50.32 - Chronic diastolic (congestive) heart failure (6) CKD (chronic kidney disease) Code(s): N18.9 - CHRONIC KIDNEY DISEASE, UNSPECIFIED (7) HTN (hypertension) Code(s): I10 - ESSENTIAL (PRIMARY) HYPERTENSION Qualifiers: Qualified Code(s): I10 - Essential (primary) hypertension Assessment/Plan (1) Decubitus ulcer Assessment/Plan: Operative Date: 07/08/16 Pre-Operative Diagnosis: Sacral ulcer - necrotic Operation: Excisional debridment sacrum - skin, subucutaneous tissue, muscel Post-Operative Diagnosis: Same as Pre-op Surgeon: Felipe Rivers ABX PER ID Code(s): L89.90 - PRESSURE ULCER OF UNSPECIFIED SITE, UNSPECIFIED STAGE (2) Anemia Assessment/Plan: MONITOR S/P TRANSFUSION HEM CONSULT Code(s): D64.9 - ANEMIA, UNSPECIFIED (3) Diabetes Assessment/Plan: MONITOR B/S ENDO CONSULT SS/ Laboratory Tests 07/08/16 07/08/16 07/08/16 11:26 17:55 23:01 POC Glucometer 292 173 194 07/09/16 05:41 POC Glucometer 241 Code(s): E11.9 - TYPE 2 DIABETES MELLITUS WITHOUT COMPLICATIONS (4) S/P bilateral below knee amputation Assessment/Plan: MONITOR Code(s): Z89.512 - ACQUIRED ABSENCE OF LEFT LEG BELOW KNEE Z89.511 - ACQUIRED ABSENCE OF RIGHT LEG BELOW KNEE (5) DVT, bilateral lower limbs Assessment/Plan: ON HEPARIN DRIP--CHANGE TO LOVENOX Code(s): I82.403 - ACUTE EMBOLISM AND THOMBOS UNSP DEEP VEINS OF LOW EXTRM, BI (6) UTI (urinary tract infection) Assessment/Plan: ABX CULTURES ID ON BOARD Code(s): N39.0 - URINARY TRACT INFECTION, SITE NOT SPECIFIED Qualifiers: Qualified Code(s): N30.00 - Acute cystitis without hematuria (7) Pneumonia Assessment/Plan: F/U CXR NOTED-- PNA--AFEBRILE ABX NPO---S/P PEG Code(s): J18.9 - PNEUMONIA, UNSPECIFIED ORGANISM Qualifiers: Qualified Code(s): J18.1 - Lobar pneumonia, unspecified organism (8) CKD (chronic kidney disease) Assessment/Plan: MONITOR IMPROVING Laboratory Tests 07/01/16 07/05/16 01:45 05:25 Creatinine 2.2 H 0.5 L D Code(s): N18.9 - CHRONIC KIDNEY DISEASE, UNSPECIFIED Assessment/Plan POOR ORAL INTAKE GI----PEG--D/W FAMILY THEY AGREE PEG PLACED
[2016-07-16] MEDS: TAMSULOSIN HCL 0.4 MG CAP.ER.24H (FP) PO SCH (08:05)
[2016-07-16] MEDS: FERROUS SO4 300 MG/5 ML ORAL SOLN UNIT DOSE CUPS GT SCH ×3 (08:05→17:23)
[2016-07-16] MEDS: AMINO ACIDS/PROTEIN HYDROLYS 30 ML LIQUID.PKT NGT SCH ×2 (08:06→17:23)
[2016-07-16] MEDS: RANITIDINE HCL 150 MG/10 ML UNIT-DOSE CUP GT SCH (09:52)
[2016-07-16] MEDS: FLUCONAZOLE 100 MG TABLET (UD) GT SCH (09:52)
[2016-07-16] MEDS: METOPROLOL TARTRATE 50 MG TABLET (FP) GT SCH ×2 (09:53→21:30)
[2016-07-16] MEDS: SODIUM BICARBONATE 650 MG TABLET GT SCH ×2 (09:53→21:24)
[2016-07-16] MEDS: ZINC SULFATE 220 MG CAPSULE (FP) NGT SCH (09:53)
[2016-07-16] MEDS: INSULIN DETEMIR 100 UNITS/ML MDV SQ SCH ×2 (09:54→23:00)
[2016-07-16] MEDS: ACETAMINOPHEN 650 MG/20.3 ML ORAL SOLUTION (CUPS) GT PRN (09:55)
--- NOTE | 2016-07-16 10:05 | PN ---
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, Physician History of Present Illness: Recurrent high grade fever noted More lethargic No acute distress/breathing non-labored + loose BMs - Current Medication List Current Medications: Active Medications Acetaminophen (Ofirmev Injection -) 1,000 mg IVPB Q6H PRN PRN Reason: PAIN Acetaminophen (Tylenol Suppository -) 650 mg [place] Q6H PRN PRN Reason: FEVER OR PAIN Acetaminophen (Tylenol Oral Solution -) 650 mg [place] Q4H PRN PRN Reason: PAIN Last Admin: 07/16/16 09:55 Dose: 650 mg Albuterol Sulfate (Ventolin 0.083% Nebulizer Soln -) 1 amp NEB QIDR [facility] Last Admin: 07/16/16 07:09 Dose: 1 amp Amino Acids (Prosource No Carb Liquid Pkt) 30 ml NGT BID@0800,1730 [facility] Last Admin: 07/16/16 08:06 Dose: 30 ml Ascorbic Acid (Vitamin C Oral Solution -) 500 mg NGT TID [facility] Last Admin: 07/16/16 06:01 Dose: 500 mg Atorvastatin Calcium (Lipitor -) 10 mg NGT HS [facility] Last Admin: 07/15/16 21:54 Dose: 10 mg Bacitracin (Bacitracin -) 1 applic TP DAILY [facility] Last Admin: 07/15/16 18:44 Dose: 1 applic Collagenase (Santyl -) 1 applic TP DAILY [facility] Last Admin: 07/15/16 10:56 Dose: 1 applic Escitalopram Oxalate (Lexapro -) 10 mg GT DAILY [facility] Ferrous Sulfate (Feosol) 300 mg GT TIDCM [facility] Last Admin: 07/16/16 08:05 Dose: 300 mg Fluconazole (Diflucan -) 100 mg GT DAILY [facility] Stop: 07/17/16 10:01 Last Admin: 07/16/16 09:52 Dose: 100 mg Insulin Aspart (Novolog Vial Sliding Scale -) 1 vial SQ ACHS [facility] PRN Reason: Protocol Last Admin: 07/16/16 06:02 Dose: 7 units Insulin Detemir (Levemir Vial) 17 units SQ 0900 [facility] Last Admin: 07/16/16 09:54 Dose: 17 units Insulin Detemir (Levemir Vial) 8 units SQ HS [facility] Ipratropium [place] (Atrovent 0.02% Nebulizer -) 1 amp NEB Q6HPO [facility] Last Admin: 07/16/16 07:09 Dose: 1 amp Metoclopramide HCl (Reglan Oral Solution -) 5 mg GT TIDAC [facility] Last Admin: 07/16/16 06:02 Dose: 5 mg Metoprolol Tartrate (Lopressor -) 50 mg GT BID [facility] Last Admin: 07/16/16 09:53 Dose: 50 mg Mirtazapine (Remeron -) 30 mg GT HS [facility] Last Admin: 07/15/16 21:53 Dose: 30 mg Non-Formulary Medication (Darbepoetin Joseph In Polysorbat [Aranesp]) 25 mcg SQ TH [facility] Olanzapine (Zyprexa -) 5 mg GT BID [facility] Last Admin: 07/15/16 21:54 Dose: 5 mg Ranitidine HCl (Zantac Oral Solution -) 150 mg GT DAILY [facility] Last Admin: 07/16/16 09:52 Dose: 150 mg Senna (Senna Oral Solution -) 8.8 mg GT HS [facility] Last Admin: 07/15/16 23:10 Dose: Not Given Sodium Bicarbonate (Sodium Bicarbonate -) 650 mg GT BID [facility] Last Admin: 07/16/16 09:53 Dose: 650 mg Tamsulosin HCl (Flomax -) 0.4 mg PO DAILY@0830 [facility] Last Admin: 07/16/16 08:05 Dose: 0.4 mg Zinc Sulfate (Orazinc -) 220 mg NGT DAILY [facility] Last Admin: 07/16/16 09:53 Dose: 220 mg - Objective Vital Signs: Vital Signs Temperature 101 F H 07/16/16 09:33 Pulse Rate 81 07/16/16 09:33 Respiratory Rate 20 07/16/16 09:33 Blood Pressure 89/73 07/16/16 09:33 O2 Sat by Pulse Oximetry (%) 97 07/15/16 21:00 Constitutional: Yes: No Distress, Thin Eyes: Yes: Conjunctiva Clear Cardiovascular: Yes: Regular Rate and Rhythm, Murmur, S1, S2 Respiratory: Yes: Diminished Gastrointestinal: Yes: Normal Bowel Sounds, Soft, Other (+ GT site no erythema ). No: Tenderness Extremities: Yes: Other (S/P bilat BKA Stump sites no erythema/ drainage) Integumentary: Yes: Other (+sacral decubitus ulcer) Labs: CBC, BMP 07/15/16 08:23 07/15/16 08:23 INR, PTT INR 1.08 (0.82-1.09) 07/01/16 01:45 Assessment/Plan Recurrent fever ? source Decubitus ulcer s/p debridement C difficile + S/P bilateral BKA S/P ESBL UTI Reculture Repeat CXR Tx C difficile Ertapenem + vancomycin x 1 dose
[2016-07-16] MEDS: ESCITALOPRAM OXALATE 10 MG TABLET (FP) GT SCH (10:09)
[2016-07-16] MEDS: OLANZapine 5 MG TABLET GT SCH ×2 (10:21→21:26)
[2016-07-16] MEDS ORDERED: VANCOMYCIN 1 GRAM (PRE-DOCKED) 250 ML IVPB ONE ×2 (11:00→12:45)
[2016-07-16] MEDS: ERTAPENEM SODIUM 1 GM in SODIUM CHLORIDE 50 ML IVPB SCH (11:51)
--- NOTE | 2016-07-16 11:53 | PN ---
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, SYSTEMS ADMINISTRATOR - Note 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: PEG inserted. TF initiated. NPO.Lethargic and febrile. Selected Entries 07/15/16 07/15/16 07/15/16 06:00 08:00 12:03 Lunch NPO Temperature 97.7 F 99 F 07/15/16 07/15/16 07/15/16 15:30 17:04 22:00 Lunch NPO Temperature 97.3 F L 101.9 F H 07/15/16 07/16/16 07/16/16 22:16 02:00 06:00 Lunch Temperature 100.3 F H 100 F H 100.2 F H 07/16/16 07/16/16 09:33 10:50 Lunch Temperature 101 F H 101 F H Continue to maintain HOB, mouth care. In future, once medically stable possibly at [place], consider use of GT to supplement PO intake. Diet recommendation for continued swallowing function and psychosocial benefit, as tolerated.-puree best, mixed with with liquid, to drink from a cup and nectar thick, Ensure compact.
[2016-07-16 12:24] LABS: URINE APPEARANCE CLEAR; URINE BILIRUBIN NEGATIVE (NEGATIVE); URINE BLOOD NEGATIVE (NEGATIVE); URINE COLOR LTYELLOW; URINE GLUCOSE (UA) 3+ (NEGATIVE); URINE KETONE NEGATIVE (NEGATIVE); URINE LEUK ESTERASE NEGATIVE (NEGATIVE); URINE NITRITE NEGATIVE (NEGATIVE); URINE PROTEIN NEGATIVE (NEGATIVE); URINE UROBILINOGEN NEGATIVE E.U./dl (0.2-1.0)
[2016-07-16] MEDS: BACITRACIN 30 GM TUBE TOPICAL OINTMENT TP SCH (12:31)
[2016-07-16] MEDS: COLLAGENASE CLOSTRIDIUM HIST. 30 GRAMS TUBE TP SCH (12:32)
[2016-07-16] MEDS: metroNIDAZOLE 250 MG TABLET PEG SCH ×2 (14:32→21:23)
--- NOTE | 2016-07-16 14:59 | PN ---
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 (short form) - Note 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: PULMONARY AWAKE/NONVERBAL CHRONICALLT ILL ANICTERIC DISTANT B/L ANTERIOR BS S1S2 BS+ SOFT B/L BKA LABS/MEDS/NOTES/IMAGING/MICRO REVIEWED A/P Acute Hypoxic Respiratory Failure improved UTI Sacral Decubitus Ulcer Infection s/p sacral debridement Septic Shock resolved Lactic Acidosis improved Acute Kidney Injury resolving Bilateral DVTs HTN DM Dementia - O2 to keep SpO2 > 88% to 92% - aspiration precautions - DVT/GI prophylaxis - Local wound care - Aspiration precautions Racheal LUND MD Problem List - Problems (1) Infected decubitus ulcer Code(s): L89.90 - PRESSURE ULCER OF UNSPECIFIED SITE, UNSPECIFIED STAGE (2) Pneumonia Code(s): J18.9 - PNEUMONIA, UNSPECIFIED ORGANISM Qualifiers: Qualified Code(s): J18.1 - Lobar pneumonia, unspecified organism (3) UTI (urinary tract infection) Code(s): N39.0 - URINARY TRACT INFECTION, SITE NOT SPECIFIED Qualifiers: Qualified Code(s): N30.00 - Acute cystitis without hematuria (4) ARF (acute renal failure) Code(s): N17.9 - ACUTE KIDNEY FAILURE, UNSPECIFIED Qualifiers: Qualified Code(s): N17.9 - Acute kidney failure, unspecified (5) Altered mental status Code(s): R41.82 - ALTERED MENTAL STATUS, UNSPECIFIED (6) Anemia Code(s): D64.9 - ANEMIA, UNSPECIFIED
--- NOTE | 2016-07-16 16:27 | PN ---
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 (short form) - Note 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: Renal Follow up for Hypernatremia Pt seen and examined at the bedside + fever restarted on Abx on tube feeds no labs today Vital Signs Temperature 100.2 F H 07/16/16 15:39 Pulse Rate 83 07/16/16 15:39 Respiratory Rate 18 07/16/16 15:39 Blood Pressure 128/52 07/16/16 15:39 O2 Sat by Pulse Oximetry (%) 97 07/16/16 11:40 Gen: NAD, awake CVS: RRR, No M/R Lungs: Dec BS, no rales Abd: soft NT/ND Ext: s/p B/L BKA, No LE edema CBC, BMP 07/15/16 08:23 07/15/16 08:23 Current Medications Acetaminophen (Ofirmev Injection -) 1,000 mg IVPB Q6H PRN PRN Reason: PAIN Acetaminophen (Tylenol Suppository -) 650 mg [place] Q6H PRN PRN Reason: FEVER OR PAIN Acetaminophen (Tylenol Oral Solution -) 650 mg GT Q4H PRN PRN Reason: PAIN Last Admin: 07/16/16 09:55 Dose: 650 mg Albuterol Sulfate (Ventolin 0.083% Nebulizer Soln -) 1 amp NEB QIDR [facility] Last Admin: 07/16/16 11:20 Dose: 1 amp Amino Acids (Prosource No Carb Liquid Pkt) 30 ml NGT BID@0800,1730 [facility] Last Admin: 07/16/16 08:06 Dose: 30 ml Ascorbic Acid (Vitamin C Oral Solution -) 500 mg NGT TID [facility] Last Admin: 07/16/16 14:32 Dose: 500 mg Atorvastatin Calcium (Lipitor -) 10 mg NGT HS [facility] Last Admin: 07/15/16 21:54 Dose: 10 mg Bacitracin (Bacitracin -) 1 applic TP DAILY [facility] Last Admin: 07/16/16 12:31 Dose: 1 applic Collagenase (Santyl -) 1 applic TP DAILY [facility] Last Admin: 07/16/16 12:32 Dose: 1 applic Darbepoetin [place] (Aranesp -) 25 mcg SQ Th@1000 [facility] Escitalopram Oxalate (Lexapro -) 10 mg GT DAILY [facility] Last Admin: 07/16/16 10:09 Dose: 10 mg Ferrous Sulfate (Feosol) 300 mg GT TIDCM [facility] Last Admin: 07/16/16 11:51 Dose: 300 mg Fluconazole (Diflucan -) 100 mg GT DAILY [facility] Stop: 07/17/16 10:01 Last Admin: 07/16/16 09:52 Dose: 100 mg Ertapenem 1 gm/ Sodium (Chloride) 50 mls @ 50 mls/hr IVPB DAILY [facility] PRN Reason: Protocol Last Admin: 07/16/16 11:51 Dose: 50 mls/hr Insulin Aspart (Novolog Vial Sliding Scale -) 1 vial SQ ACHS [facility] PRN Reason: Protocol Last Admin: 07/16/16 11:52 Dose: 7 units Insulin Detemir (Levemir Vial) 17 units SQ 0900 [facility] Last Admin: 07/16/16 09:54 Dose: 17 units Insulin Detemir (Levemir Vial) 8 units SQ HS [facility] Ipratropium [place] (Atrovent 0.02% Nebulizer -) 1 amp NEB Q6HPO [facility] Last Admin: 07/16/16 11:20 Dose: 1 amp Metoclopramide HCl (Reglan Oral Solution -) 5 mg GT TIDAC [facility] Last Admin: 07/16/16 11:52 Dose: 5 mg Metoprolol Tartrate (Lopressor -) 50 mg GT BID [facility] Last Admin: 07/16/16 09:53 Dose: 50 mg Metronidazole (Flagyl -) 500 mg PEG TID [facility] Last Admin: 07/16/16 14:32 Dose: 500 mg Mirtazapine (Remeron -) 30 mg GT [facility] Last Admin: 07/15/16 21:53 Dose: 30 mg Olanzapine (Zyprexa -) 5 mg GT BID [facility] Last Admin: 07/16/16 10:21 Dose: 5 mg Ranitidine HCl (Zantac Oral Solution -) 150 mg GT DAILY [facility] Last Admin: 07/16/16 09:52 Dose: 150 mg Senna (Senna Oral Solution -) 8.8 mg GT [facility] Last Admin: 07/15/16 23:10 Dose: Not Given Sodium Bicarbonate (Sodium Bicarbonate -) 650 mg GT BID [facility] Last Admin: 07/16/16 09:53 Dose: 650 mg Tamsulosin HCl (Flomax -) 0.4 mg PO DAILY@0830 [facility] Last Admin: 07/16/16 08:05 Dose: 0.4 mg Zinc Sulfate (Orazinc -) 220 mg NGT DAILY [facility] Last Admin: 07/16/16 09:53 Dose: 220 mg A/P 80 year old woman with PMhx of Multiple GIANNI's, Hypernatremia, Hypertension, DM, HLD, GERD who presented from [place] with hypoxia and found to have Septic shock from UTI/Infected Sacral Decubitis Ulcers with GIANIN with Cr of 2.2 and worsening hypernatremia. #Poor oral intake continue tube feeds trend electrolytes nutriton follow up #Septic Shock/UTI/Infected Sacral Decubitis Ulcers restarted on Abx f/u cultures ID following #Hypophosphatemia Trend phos daily #Hypocalcemia Corrected CA is WNL Thank you Vahid Manzano DO
[2016-07-16] MEDS: SENNOSIDES 8.8 MG/5 ML BULK BOTTLE GT SCH (21:25)
[2016-07-16] MEDS: MIRTAZAPINE 15 MG TABLET (FP) GT SCH (21:25)
[2016-07-16] MEDS: ATORVASTATIN CA 10 MG TABLET (FP) NGT SCH (21:29)
[2016-07-16] MEDS: ACETAMINOPHEN 1000 MG/100 ML VIAL (NON FORMULARY) IVPB PRN (22:30)
[2016-07-17 00:06] LABS: A/G RATIO 0.5 (0.7-1.7); ALBUMIN 1.9 g/dL (2.9-4.4); ALPHA-1-GLOBULIN 0.4 g/dL (0.0-0.4); BETA GLOBULIN 0.9 g/dL (0.7-1.3); GAMMA GLOBULIN 1.9 g/dL (0.4-1.8); GLOBULIN, TOTAL 4.1 g/dL (2.2-3.9); M-SPIKE Not Observed g/dL (Not Observed)
[2016-07-17] MEDS: metroNIDAZOLE 250 MG TABLET PEG SCH ×3 (06:03→21:55)
[2016-07-17] MEDS: METOCLOPRAMIDE HCL 5 MG/5 ML UNIT DOSE CUP GT SCH ×3 (06:04→17:51)
[2016-07-17] MEDS: INSULIN SLIDING SCALE (NOVOLOG) 1 VIAL SQ SCH ×4 (06:04→22:10)
[2016-07-17] MEDS: ASCORBIC ACID 500 MG/5 ML UNIT DOSE CUP NGT SCH ×3 (06:04→21:56)
[2016-07-17] MEDS: IPRATROPIUM BR 0.02% 0.5 MG/2.5 ML VIAL.NEB. NEB SCH ×5 (07:10→22:59)
[2016-07-17] MEDS: ALBUTEROL SO4 0.083% IH SOL 2.5 MG/3 ML VIAL.NEB. NEB SCH ×4 (07:10→22:59)
[2016-07-17 09:31] LABS: BASOPHIL 0.2 % (0-2.0); EOSINOPHIL 1.7 % (0-4.5); MCHC 32.4 g/dl (32.0-36.0); MEAN CELL VOLUME 92.5 fl (80-96); MEAN PLT VOLUME 8.2 fl (7.5-11.1); NEUTROPHILS 68.7 % (42.8-82.8); PLATELET COUNT 263 K/MM3 (134-434); RDW 16.7 % (11.6-15.6); WHITE BLOOD COUNT 8.6 K/mm3 (4.0-10.0)
[2016-07-17 09:58] LABS: ALBUMIN 1.6 g/dl (3.4-5.0); ANION GAP 6 (8-16); CALCIUM 8.4 mg/dL (8.5-10.1); CO2 30 mmol/L (21-32); GLUCOSE,RANDOM 118 mg/dL (74-106); MAGNESIUM 2.1 mg/dL (1.8-2.4)
[2016-07-17 10:01] LABS: ALK PHOS 133 U/L (45-117); BILIRUBIN,TOTAL 0.2 mg/dL (0.2-1.0); CREATININE 0.6 mg/dL (0.55-1.02); PHOSPHOROUS 2.6 mg/dL (2.5-4.9); SGOT/AST 29 U/L (15-37); SGPT/ALT 15 U/L (12-78); TOT PROT 6.4 g/dl (6.4-8.2)
[2016-07-17] MEDS ORDERED: PT OWN MED DRAWER 7, Y5N ONE ×2 (10:45→21:19)
[2016-07-17] MEDS: ERTAPENEM SODIUM 1 GM in SODIUM CHLORIDE 50 ML IVPB SCH (10:49)
[2016-07-17] MEDS: ACETAMINOPHEN 650 MG/20.3 ML ORAL SOLUTION (CUPS) GT PRN (10:49)
[2016-07-17] MEDS: ESCITALOPRAM OXALATE 10 MG TABLET (FP) GT SCH (10:50)
[2016-07-17] MEDS: RANITIDINE HCL 150 MG/10 ML UNIT-DOSE CUP GT SCH (10:50)
[2016-07-17] MEDS: ZINC SULFATE 220 MG CAPSULE (FP) NGT SCH (10:50)
[2016-07-17] MEDS: AMINO ACIDS/PROTEIN HYDROLYS 30 ML LIQUID.PKT NGT SCH ×2 (10:50→17:53)
[2016-07-17] MEDS: METOPROLOL TARTRATE 50 MG TABLET (FP) GT SCH ×2 (10:50→21:56)
[2016-07-17] MEDS: FERROUS SO4 300 MG/5 ML ORAL SOLN UNIT DOSE CUPS GT SCH ×3 (10:50→17:53)
[2016-07-17] MEDS: TAMSULOSIN HCL 0.4 MG CAP.ER.24H (FP) PO SCH (10:51)
[2016-07-17] MEDS: INSULIN DETEMIR 100 UNITS/ML MDV SQ SCH ×2 (10:52→22:11)
[2016-07-17] MEDS: BACITRACIN 30 GM TUBE TOPICAL OINTMENT TP SCH (10:52)
[2016-07-17] MEDS: OLANZapine 5 MG TABLET GT SCH ×2 (10:53→21:56)
[2016-07-17] MEDS: SODIUM BICARBONATE 650 MG TABLET GT SCH ×2 (10:53→21:56)
[2016-07-17] MEDS: COLLAGENASE CLOSTRIDIUM HIST. 30 GRAMS TUBE TP SCH (10:53)
[2016-07-17] MEDS: FLUCONAZOLE 100 MG TABLET (UD) GT SCH (10:53)
--- NOTE | 2016-07-17 11:01 | PN ---
[id number] (Ofirmev Injection -) 1,000 mg IVPB Q6H PRN PRN Reason: PAIN Last Admin: 07/16/16 22:30 Dose: 1,000 mg Acetaminophen (Tylenol Suppository -) 650 mg [place] Q6H PRN PRN Reason: FEVER OR PAIN Acetaminophen (Tylenol Oral Solution -) 650 mg [place] Q4H PRN PRN Reason: PAIN Last Admin: 07/17/16 10:49 Dose: 650 mg Albuterol Sulfate (Ventolin 0.083% Nebulizer Soln -) 1 amp NEB QIDR [facility] Last Admin: 07/17/16 07:10 Dose: 1 amp Amino Acids (Prosource No Carb Liquid Pkt) 30 ml NGT BID@0800,1730 [facility] Last Admin: 07/17/16 10:50 Dose: 30 ml Ascorbic Acid (Vitamin C Oral Solution -) 500 mg NGT TID [facility] Last Admin: 07/17/16 06:04 Dose: 500 mg Atorvastatin Calcium (Lipitor -) 10 mg NGT HS [facility] Last Admin: 07/16/16 21:29 Dose: 10 mg Bacitracin (Bacitracin -) 1 applic TP DAILY [facility] Last Admin: 07/17/16 10:52 Dose: 1 applic Collagenase (Santyl -) 1 applic TP DAILY [facility] Last Admin: 07/17/16 10:53 Dose: 1 applic Darbepoetin [place] (Aranesp -) 25 mcg SQ Th@1000 [facility] Escitalopram Oxalate (Lexapro -) 10 mg GT DAILY [facility] Last Admin: 07/17/16 10:50 Dose: 10 mg Ferrous Sulfate (Feosol) 300 mg GT TIDCM [facility] Last Admin: 07/17/16 10:50 Dose: 300 mg Ertapenem 1 gm/ Sodium (Chloride) 50 mls @ 50 mls/hr IVPB DAILY [facility] PRN Reason: Protocol Last Admin: 07/17/16 10:49 Dose: 50 mls/hr Insulin Aspart (Novolog Vial Sliding Scale -) 1 vial SQ ACHS [facility] PRN Reason: Protocol Last Admin: 07/17/16 06:04 Dose: Not Given Insulin Detemir (Levemir Vial) 17 units SQ 0900 [facility] Last Admin: 07/17/16 10:52 Dose: 17 units Insulin Detemir (Levemir Vial) 8 units SQ HS [facility] Last Admin: 07/16/16 23:00 Dose: 8 units Ipratropium [place] (Atrovent 0.02% Nebulizer -) 1 amp NEB Q6HPO [facility] Last Admin: 07/17/16 07:10 Dose: 1 amp Metoclopramide HCl (Reglan Oral Solution -) 5 mg GT TIDAC [facility] Last Admin: 07/17/16 06:04 Dose: 5 mg Metoprolol Tartrate (Lopressor -) 50 mg GT BID [facility] Last Admin: 07/17/16 10:50 Dose: 50 mg Metronidazole (Flagyl -) 500 mg PEG TID [facility] Last Admin: 07/17/16 06:03 Dose: 500 mg Mirtazapine (Remeron -) 30 mg GT [facility] Last Admin: 07/16/16 21:25 Dose: 30 mg Olanzapine (Zyprexa -) 5 mg GT BID [facility] Last Admin: 07/17/16 10:53 Dose: 5 mg Ranitidine HCl (Zantac Oral Solution -) 150 mg GT DAILY [facility] Last Admin: 07/17/16 10:50 Dose: 150 mg Senna (Senna Oral Solution -) 8.8 mg GT [facility] Last Admin: 07/16/16 21:25 Dose: Not Given Sodium Bicarbonate (Sodium Bicarbonate -) 650 mg GT BID [facility] Last Admin: 07/17/16 10:53 Dose: 650 mg Tamsulosin HCl (Flomax -) 0.4 mg PO DAILY@0830 [facility] Last Admin: 07/17/16 10:51 Dose: 0.4 mg Zinc Sulfate (Orazinc -) 220 mg NGT DAILY [facility] Last Admin: 07/17/16 10:50 Dose: 220 mg - Objective Vital Signs: Vital Signs Temperature 99.4 F 07/17/16 06:37 Pulse Rate 93 H 07/17/16 09:35 Respiratory Rate 18 07/17/16 06:00 Blood Pressure 101/50 07/17/16 06:00 O2 Sat by Pulse Oximetry (%) 99 07/17/16 09:35 Constitutional: Yes: Calm Neck: Yes: WNL Cardiovascular: Yes: WNL Respiratory: Yes: WNL Gastrointestinal: Yes: WNL Edema: No Labs: CBC, BMP 07/17/16 08:25 07/17/16 08:25 INR, PTT INR 1.08 (0.82-1.09) 07/01/16 01:45 Problem List - Problems (1) Pneumonia Code(s): J18.9 - PNEUMONIA, UNSPECIFIED ORGANISM Qualifiers: Qualified Code(s): J18.1 - Lobar pneumonia, unspecified organism (2) Type 2 diabetes mellitus with hyperosmolarity without nonketotic hyperglycemic-hyperosmolar coma ([facility]) Code(s): E11.00 - TYPE 2 DIAB W HYPROSM W/O NONKET HYPRGLY-HYPROS COMA ([facility]) (3) UTI (urinary tract infection) Code(s): N39.0 - URINARY TRACT INFECTION, SITE NOT SPECIFIED Qualifiers: Qualified Code(s): N30.00 - Acute cystitis without hematuria (4) Anemia Code(s): D64.9 - ANEMIA, UNSPECIFIED (5) CHF (congestive heart failure) Code(s): I50.9 - HEART FAILURE, UNSPECIFIED Qualifiers: Qualified Code(s): I50.32 - Chronic diastolic (congestive) heart failure (6) CKD (chronic kidney disease) Code(s): N18.9 - CHRONIC KIDNEY DISEASE, UNSPECIFIED (7) HTN (hypertension) Code(s): I10 - ESSENTIAL (PRIMARY) HYPERTENSION Qualifiers: Qualified Code(s): I10 - Essential (primary) hypertension Assessment/Plan (1) Decubitus ulcer Assessment/Plan: Operative Date: 07/08/16 Pre-Operative Diagnosis: Sacral ulcer - necrotic Operation: Excisional debridment sacrum - skin, subucutaneous tissue, muscel Post-Operative Diagnosis: Same as Pre-op Surgeon: Felipe Rivers PER ID Code(s): L89.90 - PRESSURE ULCER OF UNSPECIFIED SITE, UNSPECIFIED STAGE (2) Anemia Assessment/Plan: MONITOR S/P TRANSFUSION HEM CONSULT Code(s): D64.9 - ANEMIA, UNSPECIFIED (3) Diabetes Assessment/Plan: MONITOR B/S ENDO CONSULT SS/ Laboratory Tests 07/08/16 07/08/16 07/08/16 11:26 17:55 23:01 POC Glucometer 292 173 194 07/09/16 05:41 POC Glucometer 241 Code(s): E11.9 - TYPE 2 DIABETES MELLITUS WITHOUT COMPLICATIONS (4) S/P bilateral below knee amputation Assessment/Plan: MONITOR Code(s): Z89.512 - ACQUIRED ABSENCE OF LEFT LEG BELOW KNEE Z89.511 - ACQUIRED ABSENCE OF RIGHT LEG BELOW KNEE (5) DVT, bilateral lower limbs Assessment/Plan: ON HEPARIN DRIP--CHANGE TO LOVENOX Code(s): I82.403 - ACUTE EMBOLISM AND THOMBOS UNSP DEEP VEINS OF LOW EXTRM, BI (6) UTI (urinary tract infection) Assessment/Plan: ABX CULTURES ID ON BOARD Code(s): N39.0 - URINARY TRACT INFECTION, SITE NOT SPECIFIED Qualifiers: Qualified Code(s): N30.00 - Acute cystitis without hematuria (7) Pneumonia Assessment/Plan: F/U CXR NOTED-- PNA--AFEBRILE ABX NPO---S/P PEG Code(s): J18.9 - PNEUMONIA, UNSPECIFIED ORGANISM Qualifiers: Qualified Code(s): J18.1 - Lobar pneumonia, unspecified organism (8) CKD (chronic kidney disease) Assessment/Plan: MONITOR IMPROVING Laboratory Tests 07/01/16 07/05/16 01:45 05:25 Creatinine 2.2 H 0.5 L D Code(s): N18.9 - CHRONIC KIDNEY DISEASE, UNSPECIFIED Assessment/Plan POOR ORAL INTAKE GI----PEG--D/W FAMILY THEY AGREE PEG PLACED
--- NOTE | 2016-07-17 12:55 | PN ---
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, Physician History of Present Illness: pulmonary awake,non-verbal,-resp distress,-congestion - Current Medication List Current Medications: Active Medications Acetaminophen (Ofirmev Injection -) 1,000 mg IVPB Q6H PRN PRN Reason: PAIN Last Admin: 07/16/16 22:30 Dose: 1,000 mg Acetaminophen (Tylenol Suppository -) 650 mg [place] Q6H PRN PRN Reason: FEVER OR PAIN Acetaminophen (Tylenol Oral Solution -) 650 mg GT Q4H PRN PRN Reason: PAIN Last Admin: 07/17/16 10:49 Dose: 650 mg Albuterol Sulfate (Ventolin 0.083% Nebulizer Soln -) 1 amp NEB QIDR [facility] Last Admin: 07/17/16 11:46 Dose: Not Given Amino Acids (Prosource No Carb Liquid Pkt) 30 ml NGT BID@0800,1730 [facility] Last Admin: 07/17/16 10:50 Dose: 30 ml Ascorbic Acid (Vitamin C Oral Solution -) 500 mg NGT TID [facility] Last Admin: 07/17/16 06:04 Dose: 500 mg Atorvastatin Calcium (Lipitor -) 10 mg NGT HS [facility] Last Admin: 07/16/16 21:29 Dose: 10 mg Bacitracin (Bacitracin -) 1 applic TP DAILY [facility] Last Admin: 07/17/16 10:52 Dose: 1 applic Collagenase (Santyl -) 1 applic TP DAILY [facility] Last Admin: 07/17/16 10:53 Dose: 1 applic Darbepoetin Joseph (Aranesp -) 25 mcg SQ Th@1000 [place] Escitalopram Oxalate (Lexapro -) 10 mg GT DAILY [facility] Last Admin: 07/17/16 10:50 Dose: 10 mg Ferrous Sulfate (Feosol) 300 mg GT TIDCM [facility] Last Admin: 07/17/16 11:24 Dose: Not Given Ertapenem 1 gm/ Sodium (Chloride) 50 mls @ 50 mls/hr IVPB DAILY [facility] PRN Reason: Protocol Last Admin: 07/17/16 10:49 Dose: 50 mls/hr Insulin Aspart (Novolog Vial Sliding Scale -) 1 vial SQ ACHS [facility] PRN Reason: Protocol Last Admin: 07/17/16 11:06 Dose: Not Given Insulin Detemir (Levemir Vial) 17 units SQ 0900 [facility] Last Admin: 07/17/16 10:52 Dose: 17 units Insulin Detemir (Levemir Vial) 8 units SQ [facility] Last Admin: 07/16/16 23:00 Dose: 8 units Ipratropium [place] (Atrovent 0.02% Nebulizer -) 1 amp NEB Q6HPO [facility] Last Admin: 07/17/16 11:46 Dose: Not Given Metoclopramide HCl (Reglan Oral Solution -) 5 mg GT TIDAC [facility] Last Admin: 07/17/16 10:59 Dose: 5 mg Metoprolol Tartrate (Lopressor -) 50 mg GT BID [facility] Last Admin: 07/17/16 10:50 Dose: 50 mg Metronidazole (Flagyl -) 500 mg PEG TID [facility] Last Admin: 07/17/16 06:03 Dose: 500 mg Mirtazapine (Remeron -) 30 mg GT HS [facility] Last Admin: 07/16/16 21:25 Dose: 30 mg Olanzapine (Zyprexa -) 5 mg GT BID [facility] Last Admin: 07/17/16 10:53 Dose: 5 mg Ranitidine HCl (Zantac Oral Solution -) 150 mg GT DAILY [facility] Last Admin: 07/17/16 10:50 Dose: 150 mg Senna (Senna Oral Solution -) 8.8 mg GT [facility] Last Admin: 07/16/16 21:25 Dose: Not Given Sodium Bicarbonate (Sodium Bicarbonate -) 650 mg GT BID [facility] Last Admin: 07/17/16 10:53 Dose: 650 mg Tamsulosin HCl (Flomax -) 0.4 mg PO DAILY@0830 [facility] Last Admin: 07/17/16 10:51 Dose: 0.4 mg Zinc Sulfate (Orazinc -) 220 mg NGT DAILY [facility] Last Admin: 07/17/16 10:50 Dose: 220 mg - Objective Vital Signs: Vital Signs Temperature 99.4 F 07/17/16 06:37 Pulse Rate 93 H 07/17/16 09:35 Respiratory Rate 18 07/17/16 06:00 Blood Pressure 101/50 07/17/16 06:00 O2 Sat by Pulse Oximetry (%) 99 07/17/16 09:35 Constitutional: Yes: Calm, Thin Eyes: Yes: WNL HENT: Yes: WNL Neck: Yes: WNL Cardiovascular: Yes: Regular Rate and Rhythm, S1, S2 Respiratory: Yes: Diminished (poor inspiratory effort) Gastrointestinal: Yes: Normal Bowel Sounds, Soft Extremities: Yes: Amputation (jonh bka) Labs: CBC, BMP 07/17/16 08:25 07/17/16 08:25 INR, PTT INR 1.08 (0.82-1.09) 07/01/16 01:45 Assessment/Plan A/P Acute Hypoxic Respiratory Failure improved UTI Sacral Decubitus Ulcer Infection s/p sacral debridement Septic Shock resolving Lactic Acidosis improved Acute Kidney Injury resolving Bilateral DVTs HTN DM Dementia - monitor urine output, creatinine - glucose control - titrate FiO2 to keep SpO2 >90% - aspiration precautions - DVT/GI prophylaxis DR CONNER
--- NOTE | 2016-07-17 14:11 | PN ---
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, Physician Chief Complaint: Patient lying in bed. Confused and disoriented. Tube feeding in progress. Good urine output - Current Medication List Current Medications: Active Medications Acetaminophen (Ofirmev Injection -) 1,000 mg IVPB Q6H PRN PRN Reason: PAIN Last Admin: 07/16/16 22:30 Dose: 1,000 mg Acetaminophen (Tylenol Suppository -) 650 mg [place] Q6H PRN PRN Reason: FEVER OR PAIN Acetaminophen (Tylenol Oral Solution -) 650 mg GT Q4H PRN PRN Reason: PAIN Last Admin: 07/17/16 10:49 Dose: 650 mg Albuterol Sulfate (Ventolin 0.083% Nebulizer Soln -) 1 amp NEB QIDR [facility] Last Admin: 07/17/16 11:46 Dose: Not Given Amino Acids (Prosource No Carb Liquid Pkt) 30 ml NGT BID@0800,1730 [facility] Last Admin: 07/17/16 10:50 Dose: 30 ml Ascorbic Acid (Vitamin C Oral Solution -) 500 mg NGT TID [facility] Last Admin: 07/17/16 06:04 Dose: 500 mg Atorvastatin Calcium (Lipitor -) 10 mg NGT HS [facility] Last Admin: 07/16/16 21:29 Dose: 10 mg Bacitracin (Bacitracin -) 1 applic TP DAILY [facility] Last Admin: 07/17/16 10:52 Dose: 1 applic Collagenase (Santyl -) 1 applic TP DAILY [facility] Last Admin: 07/17/16 10:53 Dose: 1 applic Darbepoetin Joseph (Aranesp -) 25 mcg SQ Th@1000 [place] Escitalopram Oxalate (Lexapro -) 10 mg GT DAILY [facility] Last Admin: 07/17/16 10:50 Dose: 10 mg Ferrous Sulfate (Feosol) 300 mg GT TIDCM [facility] Last Admin: 07/17/16 11:24 Dose: Not Given Ertapenem 1 gm/ Sodium (Chloride) 50 mls @ 50 mls/hr IVPB DAILY [facility] PRN Reason: Protocol Last Admin: 07/17/16 10:49 Dose: 50 mls/hr Insulin Aspart (Novolog Vial Sliding Scale -) 1 vial SQ ACHS [facility] PRN Reason: Protocol Last Admin: 07/17/16 11:06 Dose: Not Given Insulin Detemir (Levemir Vial) 17 units SQ 0900 [facility] Last Admin: 07/17/16 10:52 Dose: 17 units Insulin Detemir (Levemir Vial) 8 units SQ HS [facility] Last Admin: 07/16/16 23:00 Dose: 8 units Ipratropium [place] (Atrovent 0.02% Nebulizer -) 1 amp NEB Q6HPO [facility] Last Admin: 07/17/16 11:46 Dose: Not Given Metoclopramide HCl (Reglan Oral Solution -) 5 mg GT TIDAC [facility] Last Admin: 07/17/16 10:59 Dose: 5 mg Metoprolol Tartrate (Lopressor -) 50 mg GT BID [facility] Last Admin: 07/17/16 10:50 Dose: 50 mg Metronidazole (Flagyl -) 500 mg PEG TID [facility] Last Admin: 07/17/16 06:03 Dose: 500 mg Mirtazapine (Remeron -) 30 mg GT [facility] Last Admin: 07/16/16 21:25 Dose: 30 mg Olanzapine (Zyprexa -) 5 mg GT BID [facility] Last Admin: 07/17/16 10:53 Dose: 5 mg Ranitidine HCl (Zantac Oral Solution -) 150 mg GT DAILY [facility] Last Admin: 07/17/16 10:50 Dose: 150 mg Senna (Senna Oral Solution -) 8.8 mg GT [facility] Last Admin: 07/16/16 21:25 Dose: Not Given Sodium Bicarbonate (Sodium Bicarbonate -) 650 mg GT BID [facility] Last Admin: 07/17/16 10:53 Dose: 650 mg Tamsulosin HCl (Flomax -) 0.4 mg PO DAILY@0830 [facility] Last Admin: 07/17/16 10:51 Dose: 0.4 mg Zinc Sulfate (Orazinc -) 220 mg NGT DAILY [facility] Last Admin: 07/17/16 10:50 Dose: 220 mg - Objective Vital Signs: Vital Signs Temperature 99.4 F 07/17/16 06:37 Pulse Rate 93 H 07/17/16 09:35 Respiratory Rate 18 07/17/16 06:00 Blood Pressure 101/50 07/17/16 06:00 O2 Sat by Pulse Oximetry (%) 99 07/17/16 09:35 Constitutional: Yes: Calm Eyes: Yes: WNL, Conjunctiva Clear HENT: Yes: WNL, Atraumatic, Normocephalic Neck: Yes: WNL, Supple, Trachea Midline Cardiovascular: Yes: WNL, Regular Rate and Rhythm Respiratory: Yes: WNL, Regular, CTA Bilaterally Gastrointestinal: Yes: WNL, Normal Bowel Sounds Musculoskeletal: Yes: WNL Extremities: Yes: WNL Edema: No Integumentary: Yes: WNL Neurological: Yes: WNL, Alert, Oriented ...Motor Strength: WNL Psychiatric: Yes: WNL Labs: CBC, BMP 07/17/16 08:25 07/17/16 08:25 INR, PTT INR 1.08 (0.82-1.09) 07/01/16 01:45 Assessment/Plan 80 y/o female with h/o multiple electrolyte disorders. S/p Bilateral amputation for PVD. Renal and electrolyte profile in acceptable range now Tolerates the tube feedings. Thanks again. Will follow with you. Aysha Reese MD
[2016-07-17] MEDS: MIRTAZAPINE 15 MG TABLET (FP) GT SCH (21:55)
[2016-07-17] MEDS: SENNOSIDES 8.8 MG/5 ML BULK BOTTLE GT SCH (21:56)
[2016-07-17] MEDS: ACETAMINOPHEN 1000 MG/100 ML VIAL (NON FORMULARY) IVPB PRN (21:58)
[2016-07-17] MEDS: ATORVASTATIN CA 10 MG TABLET (FP) NGT SCH (22:11)
[2016-07-18] MEDS: IPRATROPIUM BR 0.02% 0.5 MG/2.5 ML VIAL.NEB. NEB SCH ×4 (05:16→23:39)
[2016-07-18] MEDS: ALBUTEROL SO4 0.083% IH SOL 2.5 MG/3 ML VIAL.NEB. NEB SCH ×4 (05:17→23:39)
[2016-07-18] MEDS ORDERED: PT OWN MED DRAWER 7, Y5N ONE ×3 (05:26→18:08)
[2016-07-18] MEDS: METOCLOPRAMIDE HCL 5 MG/5 ML UNIT DOSE CUP GT SCH ×3 (06:06→18:09)
[2016-07-18] MEDS: ASCORBIC ACID 500 MG/5 ML UNIT DOSE CUP NGT SCH ×3 (06:06→22:33)
[2016-07-18] MEDS: metroNIDAZOLE 250 MG TABLET PEG SCH ×3 (06:06→22:31)
[2016-07-18] MEDS: INSULIN SLIDING SCALE (NOVOLOG) 1 VIAL SQ SCH ×4 (06:08→22:30)
[2016-07-18] MEDS: AMINO ACIDS/PROTEIN HYDROLYS 30 ML LIQUID.PKT NGT SCH ×2 (07:57→18:06)
[2016-07-18] MEDS: TAMSULOSIN HCL 0.4 MG CAP.ER.24H (FP) PO SCH (07:57)
[2016-07-18] MEDS: FERROUS SO4 300 MG/5 ML ORAL SOLN UNIT DOSE CUPS GT SCH ×3 (07:57→18:06)
[2016-07-18] MEDS: INSULIN DETEMIR 100 UNITS/ML MDV SQ SCH ×2 (09:00→22:31)
[2016-07-18] MEDS: RANITIDINE HCL 150 MG/10 ML UNIT-DOSE CUP GT SCH (09:40)
[2016-07-18] MEDS: ESCITALOPRAM OXALATE 10 MG TABLET (FP) GT SCH (09:40)
[2016-07-18] MEDS: SODIUM BICARBONATE 650 MG TABLET GT SCH ×2 (09:40→22:33)
[2016-07-18] MEDS: ZINC SULFATE 220 MG CAPSULE (FP) NGT SCH (09:40)
[2016-07-18] MEDS: ERTAPENEM SODIUM 1 GM in SODIUM CHLORIDE 50 ML IVPB SCH (09:40)
[2016-07-18] MEDS: METOPROLOL TARTRATE 50 MG TABLET (FP) GT SCH ×2 (09:40→22:32)
[2016-07-18] MEDS: OLANZapine 5 MG TABLET GT SCH ×2 (09:40→22:33)
[2016-07-18] MEDS: BACITRACIN 30 GM TUBE TOPICAL OINTMENT TP SCH (09:42)
[2016-07-18] MEDS: COLLAGENASE CLOSTRIDIUM HIST. 30 GRAMS TUBE TP SCH (09:43)
[2016-07-18] MEDS ORDERED: INSULIN (NOVOLOG) ASPART 100 UNITS/ML 10ML VIAL ONE ×2 (12:23→18:39)
--- NOTE | 2016-07-18 14:35 | PN ---
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, Physician History of Present Illness: pulmonary no distress,awake non-verbal - Current Medication List Current Medications: Active Medications Acetaminophen (Ofirmev Injection -) 1,000 mg IVPB Q6H PRN PRN Reason: PAIN Last Admin: 07/17/16 21:58 Dose: 1,000 mg Acetaminophen (Tylenol Suppository -) 650 mg [place] Q6H PRN PRN Reason: FEVER OR PAIN Acetaminophen (Tylenol Oral Solution -) 650 mg GT Q4H PRN PRN Reason: PAIN Last Admin: 07/17/16 10:49 Dose: 650 mg Albuterol Sulfate (Ventolin 0.083% Nebulizer Soln -) 1 amp NEB QIDR [facility] Last Admin: 07/18/16 11:14 Dose: Not Given Amino Acids (Prosource No Carb Liquid Pkt) 30 ml NGT BID@0800,1730 [facility] Last Admin: 07/18/16 07:57 Dose: 30 ml Ascorbic Acid (Vitamin C Oral Solution -) 500 mg NGT TID [facility] Last Admin: 07/18/16 14:01 Dose: 500 mg Atorvastatin Calcium (Lipitor -) 10 mg NGT HS [facility] Last Admin: 07/17/16 22:11 Dose: 10 mg Bacitracin (Bacitracin -) 1 applic TP DAILY [facility] Last Admin: 07/18/16 09:42 Dose: 1 applic Collagenase (Santyl -) 1 applic TP DAILY [facility] Last Admin: 07/18/16 09:43 Dose: 1 applic Darbepoetin Joseph (Aranesp -) 25 mcg SQ Th@1000 [facility] Escitalopram Oxalate (Lexapro -) 10 mg GT DAILY [facility] Last Admin: 07/18/16 09:40 Dose: 10 mg Ferrous Sulfate (Feosol) 300 mg GT TIDCM [facility] Last Admin: 07/18/16 12:26 Dose: 300 mg Ertapenem 1 gm/ Sodium (Chloride) 50 mls @ 50 mls/hr IVPB DAILY [facility] PRN Reason: Protocol Last Admin: 07/18/16 09:40 Dose: 50 mls/hr Insulin Aspart (Novolog Vial Sliding Scale -) 1 vial SQ ACHS [facility] PRN Reason: Protocol Last Admin: 07/18/16 12:26 Dose: 5 units Insulin Detemir (Levemir Vial) 17 units SQ 0900 [facility] Last Admin: 07/18/16 09:00 Dose: 17 units Insulin Detemir (Levemir Vial) 8 units SQ [facility] Last Admin: 07/17/16 22:11 Dose: Not Given Ipratropium [place] (Atrovent 0.02% Nebulizer -) 1 amp NEB Q6HPO [facility] Last Admin: 07/18/16 11:14 Dose: Not Given Metoclopramide HCl (Reglan Oral Solution -) 5 mg GT TIDAC [facility] Last Admin: 07/18/16 12:20 Dose: 5 mg Metoprolol Tartrate (Lopressor -) 50 mg GT BID [facility] Last Admin: 07/18/16 09:40 Dose: 50 mg Metronidazole (Flagyl -) 500 mg PEG TID [facility] Last Admin: 07/18/16 14:01 Dose: 500 mg Mirtazapine (Remeron -) 30 mg GT [facility] Last Admin: 07/17/16 21:55 Dose: 30 mg Olanzapine (Zyprexa -) 5 mg GT BID [facility] Last Admin: 07/18/16 09:40 Dose: 5 mg Ranitidine HCl (Zantac Oral Solution -) 150 mg GT DAILY [facility] Last Admin: 07/18/16 09:40 Dose: 150 mg Senna (Senna Oral Solution -) 8.8 mg GT [facility] Last Admin: 07/17/16 21:56 Dose: 8.8 mg Sodium Bicarbonate (Sodium Bicarbonate -) 650 mg GT BID [facility] Last Admin: 07/18/16 09:40 Dose: 650 mg Tamsulosin HCl (Flomax -) 0.4 mg PO DAILY@0830 [facility] Last Admin: 07/18/16 07:57 Dose: 0.4 mg Zinc Sulfate (Orazinc -) 220 mg NGT DAILY [facility] Last Admin: 07/18/16 09:40 Dose: 220 mg - Objective Vital Signs: Vital Signs Temperature 99 F 07/18/16 10:00 Pulse Rate 78 07/18/16 11:13 Respiratory Rate 18 07/18/16 10:00 Blood Pressure 129/68 07/18/16 10:00 O2 Sat by Pulse Oximetry (%) 93 L 07/18/16 11:13 Constitutional: Yes: Calm, Thin Eyes: Yes: WNL HENT: Yes: WNL Neck: Yes: WNL Cardiovascular: Yes: Regular Rate and Rhythm, S1, S2 Respiratory: Yes: Diminished (por inspiratory effort) Gastrointestinal: Yes: Normal Bowel Sounds, Soft Extremities: Yes: Amputation (bilateral bka) Labs: CBC, BMP 07/17/16 08:25 07/17/16 08:25 INR, PTT INR 1.08 (0.82-1.09) 07/01/16 01:45 Assessment/Plan A/P Acute Hypoxic Respiratory Failure improved UTI Sacral Decubitus Ulcer Infection s/p sacral debridement Septic Shock resolving Lactic Acidosis improved Acute Kidney Injury resolving Bilateral DVTs HTN DM Dementia - monitor urine output, creatinine - glucose control - titrate FiO2 to keep SpO2 >90% - aspiration precautions - DVT/GI prophylaxis DR CONNER
--- NOTE | 2016-07-18 16:41 | PN ---
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, Physician - Current Medication List Current Medications: Active Medications Acetaminophen (Ofirmev Injection -) 1,000 mg IVPB Q6H PRN PRN Reason: PAIN Last Admin: 07/17/16 21:58 Dose: 1,000 mg Acetaminophen (Tylenol Suppository -) 650 mg [place] Q6H PRN PRN Reason: FEVER OR PAIN Acetaminophen (Tylenol Oral Solution -) 650 mg GT Q4H PRN PRN Reason: PAIN Last Admin: 07/17/16 10:49 Dose: 650 mg Albuterol Sulfate (Ventolin 0.083% Nebulizer Soln -) 1 amp NEB QIDR [facility] Last Admin: 07/18/16 11:14 Dose: Not Given Amino Acids (Prosource No Carb Liquid Pkt) 30 ml NGT BID@0800,1730 [facility] Last Admin: 07/18/16 07:57 Dose: 30 ml Ascorbic Acid (Vitamin C Oral Solution -) 500 mg NGT TID [facility] Last Admin: 07/18/16 14:01 Dose: 500 mg Atorvastatin Calcium (Lipitor -) 10 mg NGT HS [facility] Last Admin: 07/17/16 22:11 Dose: 10 mg Bacitracin (Bacitracin -) 1 applic TP DAILY [facility] Last Admin: 07/18/16 09:42 Dose: 1 applic Collagenase (Santyl -) 1 applic TP DAILY [facility] Last Admin: 07/18/16 09:43 Dose: 1 applic Darbepoetin Joseph (Aranesp -) 25 mcg SQ Th@1000 [facility] Escitalopram Oxalate (Lexapro -) 10 mg GT DAILY [facility] Last Admin: 07/18/16 09:40 Dose: 10 mg Ferrous Sulfate (Feosol) 300 mg GT TIDCM [facility] Last Admin: 07/18/16 12:26 Dose: 300 mg Ertapenem 1 gm/ Sodium (Chloride) 50 mls @ 50 mls/hr IVPB DAILY [facility] PRN Reason: Protocol Last Admin: 07/18/16 09:40 Dose: 50 mls/hr Insulin Aspart (Novolog Vial Sliding Scale -) 1 vial SQ ACHS [facility] PRN Reason: Protocol Last Admin: 07/18/16 12:26 Dose: 5 units Insulin Detemir (Levemir Vial) 8 units SQ HS [facility] Last Admin: 07/17/16 22:11 Dose: Not Given Insulin Detemir (Levemir Vial) 12 units SQ 0900 [facility] Ipratropium [place] (Atrovent 0.02% Nebulizer -) 1 amp NEB Q6HPO [facility] Last Admin: 07/18/16 11:14 Dose: Not Given Metoclopramide HCl (Reglan Oral Solution -) 5 mg GT TIDAC [facility] Last Admin: 07/18/16 12:20 Dose: 5 mg Metoprolol Tartrate (Lopressor -) 50 mg GT BID [facility] Last Admin: 07/18/16 09:40 Dose: 50 mg Metronidazole (Flagyl -) 500 mg PEG TID [facility] Last Admin: 07/18/16 14:01 Dose: 500 mg Mirtazapine (Remeron -) 30 mg GT [facility] Last Admin: 07/17/16 21:55 Dose: 30 mg Olanzapine (Zyprexa -) 5 mg GT BID [facility] Last Admin: 07/18/16 09:40 Dose: 5 mg Ranitidine HCl (Zantac Oral Solution -) 150 mg GT DAILY [facility] Last Admin: 07/18/16 09:40 Dose: 150 mg Senna (Senna Oral Solution -) 8.8 mg [address] [facility] Last Admin: 07/17/16 21:56 Dose: 8.8 mg Sodium Bicarbonate (Sodium Bicarbonate -) 650 mg GT BID [facility] Last Admin: 07/18/16 09:40 Dose: 650 mg Tamsulosin HCl (Flomax -) 0.4 mg PO DAILY@0830 [facility] Last Admin: 07/18/16 07:57 Dose: 0.4 mg Zinc Sulfate (Orazinc -) 220 mg NGT DAILY [facility] Last Admin: 07/18/16 09:40 Dose: 220 mg - Objective Vital Signs: Vital Signs Temperature 97.9 F 07/18/16 15:07 Pulse Rate 73 07/18/16 15:07 Respiratory Rate 18 07/18/16 15:07 Blood Pressure 108/54 07/18/16 15:07 O2 Sat by Pulse Oximetry (%) 93 L 07/18/16 11:13 Constitutional: Yes: Calm HENT: Yes: WNL Neck: Yes: WNL Cardiovascular: Yes: WNL Respiratory: Yes: WNL Gastrointestinal: Yes: WNL Edema: No Integumentary: Yes: Pressure Ulcer Labs: CBC, BMP 07/17/16 08:25 07/17/16 08:25 INR, PTT INR 1.08 (0.82-1.09) 07/01/16 01:45 Problem List - Problems (1) Pneumonia Code(s): J18.9 - PNEUMONIA, UNSPECIFIED ORGANISM Qualifiers: Qualified Code(s): J18.1 - Lobar pneumonia, unspecified organism (2) Type 2 diabetes mellitus with hyperosmolarity without nonketotic hyperglycemic-hyperosmolar coma ([facility]) Code(s): E11.00 - TYPE 2 DIAB W HYPROSM W/O NONKET HYPRGLY-HYPROS COMA ([facility]) (3) UTI (urinary tract infection) Code(s): N39.0 - URINARY TRACT INFECTION, SITE NOT SPECIFIED Qualifiers: Qualified Code(s): N30.00 - Acute cystitis without hematuria (4) Anemia Code(s): D64.9 - ANEMIA, UNSPECIFIED (5) CHF (congestive heart failure) Code(s): I50.9 - HEART FAILURE, UNSPECIFIED Qualifiers: Qualified Code(s): I50.32 - Chronic diastolic (congestive) heart failure (6) CKD (chronic kidney disease) Code(s): N18.9 - CHRONIC KIDNEY DISEASE, UNSPECIFIED (7) HTN (hypertension) Code(s): I10 - ESSENTIAL (PRIMARY) HYPERTENSION Qualifiers: Qualified Code(s): I10 - Essential (primary) hypertension Assessment/Plan (1) Decubitus ulcer Assessment/Plan: Operative Date: 07/08/16 Pre-Operative Diagnosis: Sacral ulcer - necrotic Operation: Excisional debridment sacrum - skin, subucutaneous tissue, muscel Post-Operative Diagnosis: Same as Pre-op Surgeon: Felipe Rivers PER ID Code(s): L89.90 - PRESSURE ULCER OF UNSPECIFIED SITE, UNSPECIFIED STAGE (2) Anemia Assessment/Plan: MONITOR S/P TRANSFUSION HEM CONSULT Code(s): D64.9 - ANEMIA, UNSPECIFIED (3) Diabetes Assessment/Plan: MONITOR B/S ENDO CONSULT ISS BGM Code(s): E11.9 - TYPE 2 DIABETES MELLITUS WITHOUT COMPLICATIONS (4) S/P bilateral below knee amputation Assessment/Plan: MONITOR Code(s): Z89.512 - ACQUIRED ABSENCE OF LEFT LEG BELOW KNEE Z89.511 - ACQUIRED ABSENCE OF RIGHT LEG BELOW KNEE (5) DVT, bilateral lower limbs Assessment/Plan: LOVENOX Code(s): I82.403 - ACUTE EMBOLISM AND THOMBOS UNSP DEEP VEINS OF LOW EXTRM, BI (6) UTI (urinary tract infection) Assessment/Plan: ABX CULTURES ID ON BOARD Code(s): N39.0 - URINARY TRACT INFECTION, SITE NOT SPECIFIED Qualifiers: Qualified Code(s): N30.00 - Acute cystitis without hematuria (7) Pneumonia Assessment/Plan: F/U CXR NOTED-- PNA--AFEBRILE ABX NPO---S/P PEG Code(s): J18.9 - PNEUMONIA, UNSPECIFIED ORGANISM Qualifiers: Qualified Code(s): J18.1 - Lobar pneumonia, unspecified organism (8) CKD (chronic kidney disease) Assessment/Plan: Cr WNL Code(s): N18.9 - CHRONIC KIDNEY DISEASE, UNSPECIFIED Assessment/Plan POOR ORAL INTAKE GI----PEG--D/W FAMILY THEY AGREE PEG PLACED CHEMICALS DISTILLER FM
[2016-07-18] MEDS: MIRTAZAPINE 15 MG TABLET (FP) GT SCH (22:32)
[2016-07-18] MEDS: ATORVASTATIN CA 10 MG TABLET (FP) NGT SCH (22:32)
[2016-07-18] MEDS: SENNOSIDES 8.8 MG/5 ML BULK BOTTLE GT SCH (22:32)
[2016-07-18] MEDS: ENOXAPARIN NA (PORCINE) 60 MG/0.6 ML DISP.SYRIN SQ SCH (22:32)
[2016-07-19] MEDS: metroNIDAZOLE 250 MG TABLET PEG SCH ×2 (06:14→14:24)
[2016-07-19] MEDS: ASCORBIC ACID 500 MG/5 ML UNIT DOSE CUP NGT SCH ×2 (06:15→14:24)
[2016-07-19] MEDS: INSULIN SLIDING SCALE (NOVOLOG) 1 VIAL SQ SCH ×2 (06:15→12:06)
[2016-07-19] MEDS: METOCLOPRAMIDE HCL 5 MG/5 ML UNIT DOSE CUP GT SCH ×2 (06:16→12:09)
[2016-07-19] MEDS: ALBUTEROL SO4 0.083% IH SOL 2.5 MG/3 ML VIAL.NEB. NEB SCH ×2 (07:03→12:00)
[2016-07-19] MEDS: IPRATROPIUM BR 0.02% 0.5 MG/2.5 ML VIAL.NEB. NEB SCH ×2 (07:03→12:00)
--- NOTE | 2016-07-19 08:22 | DS ---
Physical Examination Vital Signs: Vital Signs Temperature 99.8 F H 07/19/16 07:46 Pulse Rate 77 07/19/16 07:46 Respiratory Rate 20 07/19/16 07:46 Blood Pressure 130/54 07/19/16 07:46 O2 Sat by Pulse Oximetry (%) 93 L 07/18/16 21:00 Discharge Summary Reason For Visit: PNEUMONIA, UTI Current Active Problems DVT, bilateral lower limbs (Acute) Decubitus ulcer (Acute) Infected decubitus ulcer (Acute) Pneumonia (Acute) Septic shock (Acute) Type 2 diabetes mellitus with hyperosmolarity without nonketotic hyperglycemic- hyperosmolar coma ([facility]) (Acute) UTI (urinary tract infection) (Acute) Hospital Course: 80yo Female patient with extensive medical history which includes HTN, DM, HLD, GERD presents to ED via EMS from [facility]. Staff c/o fever 102.0 and hypoxia. Patient allegedly desaturated at nursing facility from high 90's to low 80s. Patient was put on O2 at 8Lpm, given Tylenol 650mg po and sent to ED for evaluation. 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: Yes: CVA, Dementia Cardiovascular: Yes: CHF, HTN, Hyperlipdemia Pulmonary: Yes: COPD Gastrointestinal: Yes: GERD Renal/: Yes: Renal Inusuff Heme/Onc: Yes: Anemia Endocrine: Yes: Diabetes Mellitus (1) Decubitus ulcer Assessment/Plan: PRESENTED WITH STAGE IV SACRAL PU S/P OR Operative Date: 07/08/16 Pre-Operative Diagnosis: Sacral ulcer - necrotic Operation: Excisional debridment sacrum - skin, subucutaneous tissue, muscel Post-Operative Diagnosis: Same as Pre-op Surgeon: Felipe Rivers PER ID Code(s): L89.90 - PRESSURE ULCER OF UNSPECIFIED SITE, UNSPECIFIED STAGE (2) Anemia Assessment/Plan: MONITOR HGB 8.9 S/P TRANSFUSION HEM CONSULT Code(s): D64.9 - ANEMIA, UNSPECIFIED (3) Diabetes Assessment/Plan: MONITOR B/S ENDO CONSULT ISS BGM Code(s): E11.9 - TYPE 2 DIABETES MELLITUS WITHOUT COMPLICATIONS (4) S/P bilateral below knee amputation Assessment/Plan: MONITOR Code(s): Z89.512 - ACQUIRED ABSENCE OF LEFT LEG BELOW KNEE Z89.511 - ACQUIRED ABSENCE OF RIGHT LEG BELOW KNEE (5) DVT, bilateral lower limbs Assessment/Plan: LOVENOX Code(s): I82.403 - ACUTE EMBOLISM AND THOMBOS UNSP DEEP VEINS OF LOW EXTRM, BI (6) UTI (urinary tract infection) Assessment/Plan: ABX PER ID--FOLLOW UP CULTURES ID ON BOARD Code(s): N39.0 - URINARY TRACT INFECTION, SITE NOT SPECIFIED Qualifiers: Qualified Code(s): N30.00 - Acute cystitis without hematuria (7) Pneumonia Assessment/Plan: F/U CXR NOTED-- PNA--MAYBE ASPIRATION--NOW WITH PEG ABX NPO---S/P PEG Code(s): J18.9 - PNEUMONIA, UNSPECIFIED ORGANISM Qualifiers: Qualified Code(s): J18.1 - Lobar pneumonia, unspecified organism (8) CKD (chronic kidney disease) Assessment/Plan: Cr WNL Code(s): N18.9 - CHRONIC KIDNEY DISEASE, UNSPECIFIED (9) Nutrtion Assessment/Plan: POOR ORAL INTAKE PEG FEEDINGS DC PLANNING---ID FOLLOW UP REGARDING ABX --THEN SNF Condition: Improved - Instructions Referrals: Rashawn Garcia MD [Primary Care Provider] - Disposition: INTERMEDIATE FACILITY - Home Medications Comprehensive Discharge Medication List: Ambulatory Orders Ascorbate Calcium [Vitamin C] 500 mg PO TID 03/24/16 Mirtazapine [Remeron -] 30 mg PO DAILY 03/24/16 Omeprazole 20 mg PO DAILY 03/24/16 Sennosides [Senna] 17.2 mg PO HS 03/24/16 Simvastatin 20 mg PO DAILY 03/24/16 Tamsulosin HCl [Flomax -] 0.8 mg PO DAILY 03/24/16 Amino Acids/Protein Hydrolys [Prostat Sugar-Free Packet -] 30 ml PO BID@0800, 1730 packet 04/20/16 Sodium Bicarbonate - 650 mg PO BID tablet 04/20/16 Zinc Sulfate [Orazinc -] 220 mg PO DAILY capsule 04/20/16 Acetaminophen [Tylenol] 650 mg PO Q4H PRN 06/30/16 Collagenase Clostridium Hist. [Santyl -] 1 applic TP DAILY 06/30/16 Darbepoetin Joseph in Polysorbat [Aranesp] 25 mcg SQ TH 06/30/16 Ferrous Sulfate [Feosol] 325 mg PO TID 06/30/16 Insulin Glargine,Hum.rec.anlog [Lantus Solostar PEN -] 12 units SQ 0900 Albuterol 0.083% Nebulizer Elena [Ventolin 0.083% Nebulizer Soln -] 1 amp NEB QIDR amp 07/19/16 Bacitracin - [Bacitracin Topical Ointment -] 1 applic TP DAILY tube 07/19/16 Enoxaparin [Lovenox -] 50 mg SQ BID #60 mg 07/19/16 Insulin (Levemir) [Levemir Vial] 8 units SQ HS ml 07/19/16 Insulin Sliding Scale [Novolog Vial Sliding Scale -] 1 vial SQ ACHS units 07/19 Ipratropium 0.02% Nebulizer [Atrovent 0.02% Nebulizer -] 1 amp NEB Q6HPO amp Metoclopramide Oral Soln [Reglan Oral Solution -] 5 mg GT TIDAC #0 tab 07/19/16 Metoprolol Tartrate [Lopressor -] 50 mg GT BID #0 tablet 07/19/16 Metronidazole [Flagyl -] 500 mg PEG TID #0 tablet 07/19/16 Olanzapine [Zyprexa -] 5 mg GT BID #60 tablet 07/19/16
[2016-07-19 08:32] LABS: MCH 30.8 pg (25.7-33.7); MCHC 33.1 g/dl (32.0-36.0); MEAN CELL VOLUME 92.8 fl (80-96); MEAN PLT VOLUME 8.4 fl (7.5-11.1); PLATELET COUNT 296 K/MM3 (134-434); RDW 16.3 % (11.6-15.6); WHITE BLOOD COUNT 6.9 K/mm3 (4.0-10.0)
[2016-07-19] MEDS: FERROUS SO4 300 MG/5 ML ORAL SOLN UNIT DOSE CUPS GT SCH ×2 (08:55→12:14)
[2016-07-19] MEDS: TAMSULOSIN HCL 0.4 MG CAP.ER.24H (FP) PO SCH (08:55)
[2016-07-19] MEDS: AMINO ACIDS/PROTEIN HYDROLYS 30 ML LIQUID.PKT NGT SCH (08:55)
[2016-07-19 08:58] LABS: ALBUMIN 1.7 g/dl (3.4-5.0); ALK PHOS 160 U/L (45-117); ANION GAP 7 (8-16); BILIRUBIN,TOTAL 0.2 mg/dL (0.2-1.0); CALCIUM 8.8 mg/dL (8.5-10.1); CO2 31 mmol/L (21-32); CREATININE 0.7 mg/dL (0.55-1.02); GLUCOSE,RANDOM 221 mg/dL (74-106); SGOT/AST 20 U/L (15-37); SGPT/ALT 15 U/L (12-78); TOT PROT 6.7 g/dl (6.4-8.2)
[2016-07-19] MEDS ORDERED: INSULIN DETEMIR 100 UNITS/ML MDV SQ SCH (09:00)
[2016-07-19] MEDS ORDERED: PT OWN MED DRAWER 7, Y5N ONE (09:02)
[2016-07-19] MEDS: SODIUM BICARBONATE 650 MG TABLET GT SCH (09:05)
[2016-07-19] MEDS: ESCITALOPRAM OXALATE 10 MG TABLET (FP) GT SCH (09:05)
[2016-07-19] MEDS: ZINC SULFATE 220 MG CAPSULE (FP) NGT SCH (09:05)
[2016-07-19] MEDS: ENOXAPARIN NA (PORCINE) 60 MG/0.6 ML DISP.SYRIN SQ SCH (09:05)
[2016-07-19] MEDS: RANITIDINE HCL 150 MG/10 ML UNIT-DOSE CUP GT SCH (09:05)
[2016-07-19] MEDS: METOPROLOL TARTRATE 50 MG TABLET (FP) GT SCH (09:05)
[2016-07-19] MEDS: BACITRACIN 30 GM TUBE TOPICAL OINTMENT TP SCH (09:07)
[2016-07-19] MEDS: ERTAPENEM SODIUM 1 GM in SODIUM CHLORIDE 50 ML IVPB SCH (09:24)
--- NOTE | 2016-07-19 10:33 | PN ---
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 (short form) - Note 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: PULMONARY Confused but appears comfortable. No fevers recorded. Last Vital Signs Temp Pulse Resp BP Pulse Ox 99.8 F H 77 20 130/54 93 L 07/19/16 07:46 07/19/16 07:46 07/19/16 07:46 07/19/16 07:46 07/18/16 21:00 Gen: breathing nonlabored Heart: RRR Lung: decreased breath sounds at the bases Abd: soft, nontender Ext: bilateral BKA CBC, BMP 07/19/16 06:15 07/19/16 06:15 Active Medications Acetaminophen (Ofirmev Injection -) 1,000 mg IVPB Q6H PRN PRN Reason: PAIN Last Admin: 07/17/16 21:58 Dose: 1,000 mg Acetaminophen (Tylenol Suppository -) [address] Q6H PRN PRN Reason: FEVER OR PAIN Acetaminophen (Tylenol Oral Solution -) 650 mg GT Q4H PRN PRN Reason: PAIN Last Admin: 07/17/16 10:49 Dose: 650 mg Albuterol Sulfate (Ventolin 0.083% Nebulizer Soln -) 1 amp NEB QIDR [facility] Last Admin: 07/19/16 07:03 Dose: Not Given Amino Acids (Prosource No Carb Liquid Pkt) 30 ml NGT BID@0800,1730 [facility] Last Admin: 07/19/16 08:55 Dose: 30 ml Ascorbic Acid (Vitamin C Oral Solution -) 500 mg NGT TID [facility] Last Admin: 07/19/16 06:15 Dose: 500 mg Atorvastatin Calcium (Lipitor -) 10 mg NGT HS [facility] Last Admin: 07/18/16 22:32 Dose: 10 mg Bacitracin (Bacitracin -) 1 applic TP DAILY [facility] Last Admin: 07/19/16 09:07 Dose: 1 applic Collagenase (Santyl -) 1 applic TP DAILY [facility] Last Admin: 07/18/16 09:43 Dose: 1 applic Darbepoetin Joseph (Aranesp -) 25 mcg SQ Th@1000 LARRY Enoxaparin Sodium (Lovenox -) 50 mg SQ BID [facility] Last Admin: 07/19/16 09:05 Dose: 50 mg Escitalopram Oxalate (Lexapro -) 10 mg GT DAILY [facility] Last Admin: 07/19/16 09:05 Dose: 10 mg Ferrous Sulfate (Feosol) 300 mg GT TIDCM [facility] Last Admin: 07/19/16 08:55 Dose: 300 mg Ertapenem 1 gm/ Sodium (Chloride) 50 mls @ 50 mls/hr IVPB DAILY [facility] PRN Reason: Protocol Last Admin: 07/19/16 09:24 Dose: 50 mls/hr Insulin Aspart (Novolog Vial Sliding Scale -) 1 vial SQ ACHS [facility] PRN Reason: Protocol Last Admin: 07/19/16 06:15 Dose: 2 units Insulin Detemir (Levemir Vial) 8 units SQ HS [facility] Last Admin: 07/18/16 22:31 Dose: 8 units Insulin Detemir (Levemir Vial) 12 units SQ 0900 [facility] Last Admin: 07/19/16 09:06 Dose: 12 units Ipratropium [place] (Atrovent 0.02% Nebulizer -) 1 amp NEB Q6HPO [facility] Last Admin: 07/19/16 07:03 Dose: Not Given Metoclopramide HCl (Reglan Oral Solution -) 5 mg GT TIDAC [facility] Last Admin: 07/19/16 06:16 Dose: 5 mg Metoprolol Tartrate (Lopressor -) 50 mg GT BID [facility] Last Admin: 07/19/16 09:05 Dose: 50 mg Metronidazole (Flagyl -) 500 mg PEG TID [facility] Last Admin: 07/19/16 06:14 Dose: 500 mg Mirtazapine (Remeron -) 30 mg GT [facility] Last Admin: 07/18/16 22:32 Dose: 30 mg Olanzapine (Zyprexa -) 5 mg GT BID [facility] Last Admin: 07/18/16 22:33 Dose: 5 mg Ranitidine HCl (Zantac Oral Solution -) 150 mg GT DAILY [facility] Last Admin: 07/19/16 09:05 Dose: 150 mg Senna (Senna Oral Solution -) 8.8 mg GT [facility] Last Admin: 07/18/16 22:32 Dose: 8.8 mg Sodium Bicarbonate (Sodium Bicarbonate -) 650 mg GT BID [facility] Last Admin: 07/19/16 09:05 Dose: 650 mg Tamsulosin HCl (Flomax -) 0.4 mg PO DAILY@0830 [facility] Last Admin: 07/19/16 08:55 Dose: 0.4 mg Zinc Sulfate (Orazinc -) 220 mg NGT DAILY [facility] Last Admin: 07/19/16 09:05 Dose: 220 mg A/P Acute Hypoxic Respiratory Failure improving UTI Sacral Decubitus Ulcer Infection Septic Shock resolving Acute Kidney Injury resolving Bilateral DVTs HTN DM Dementia - complete antibiotics - wound care - monitor urine output, creatinine - BiPAP as needed to assist in work of breathing - titrate FiO2 to keep SpO2 >90% - continue anticoagulation - aspiration precautions - DVT/GI prophylaxis
[2016-07-19 11:13] VITALS: BP 96/49; PULSE 72; TEMP 97.9
[2016-07-19 11:22] LABS: PLATELET ESTIMATE ADEQUATE (NORMAL)
--- NOTE | 2016-07-19 12:05 | PN ---
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, Physician History of Present Illness: Awake, not conversant Afebrile WBC WNL Cultures negative - Current Medication List Current Medications: Active Medications Acetaminophen (Ofirmev Injection -) 1,000 mg IVPB Q6H PRN PRN Reason: PAIN Last Admin: 07/17/16 21:58 Dose: 1,000 mg Acetaminophen (Tylenol Suppository -) 650 mg IA Q6H PRN PRN Reason: FEVER OR PAIN Acetaminophen (Tylenol Oral Solution -) 650 mg GT Q4H PRN PRN Reason: PAIN Last Admin: 07/17/16 10:49 Dose: 650 mg Albuterol Sulfate (Ventolin 0.083% Nebulizer Soln -) 1 amp NEB QIDR [facility] Last Admin: 07/19/16 12:00 Dose: 1 amp Amino Acids (Prosource No Carb Liquid Pkt) 30 ml NGT BID@0800,1730 [facility] Last Admin: 07/19/16 08:55 Dose: 30 ml Ascorbic Acid (Vitamin C Oral Solution -) 500 mg NGT TID [facility] Last Admin: 07/19/16 06:15 Dose: 500 mg Atorvastatin Calcium (Lipitor -) 10 mg NGT HS [facility] Last Admin: 07/18/16 22:32 Dose: 10 mg Bacitracin (Bacitracin -) 1 applic TP DAILY [facility] Last Admin: 07/19/16 09:07 Dose: 1 applic Collagenase (Santyl -) 1 applic TP DAILY [facility] Last Admin: 07/18/16 09:43 Dose: 1 applic Darbepoetin Joseph (Aranesp -) 25 mcg SQ Th@1000 [facility] Enoxaparin Sodium (Lovenox -) 50 mg SQ BID [facility] Last Admin: 07/19/16 09:05 Dose: 50 mg Escitalopram Oxalate (Lexapro -) 10 mg GT DAILY [facility] Last Admin: 07/19/16 09:05 Dose: 10 mg Ferrous Sulfate (Feosol) 300 mg GT TIDCM [facility] Last Admin: 07/19/16 08:55 Dose: 300 mg Ertapenem 1 gm/ Sodium (Chloride) 50 mls @ 50 mls/hr IVPB DAILY [facility] PRN Reason: Protocol Last Admin: 07/19/16 09:24 Dose: 50 mls/hr Insulin Aspart (Novolog Vial Sliding Scale -) 1 vial SQ ACHS [facility] PRN Reason: Protocol Last Admin: 07/19/16 06:15 Dose: 2 units Insulin Detemir (Levemir Vial) 8 units SQ HS [facility] Last Admin: 07/18/16 22:31 Dose: 8 units Insulin Detemir (Levemir Vial) 12 units SQ 0900 [facility] Last Admin: 07/19/16 09:06 Dose: 12 units Ipratropium [place] (Atrovent 0.02% Nebulizer -) 1 amp NEB Q6HPO [facility] Last Admin: 07/19/16 12:00 Dose: 1 amp Metoclopramide HCl (Reglan Oral Solution -) 5 mg GT TIDAC [facility] Last Admin: 07/19/16 06:16 Dose: 5 mg Metoprolol Tartrate (Lopressor -) 50 mg GT BID [facility] Last Admin: 07/19/16 09:05 Dose: 50 mg Metronidazole (Flagyl -) 500 mg PEG TID [facility] Last Admin: 07/19/16 06:14 Dose: 500 mg Mirtazapine (Remeron -) 30 mg GT [facility] Last Admin: 07/18/16 22:32 Dose: 30 mg Olanzapine (Zyprexa -) 5 mg GT BID [facility] Last Admin: 07/18/16 22:33 Dose: 5 mg Ranitidine HCl (Zantac Oral Solution -) 150 mg GT DAILY [facility] Last Admin: 07/19/16 09:05 Dose: 150 mg Senna (Senna Oral Solution -) 8.8 mg GT [facility] Last Admin: 07/18/16 22:32 Dose: 8.8 mg Sodium Bicarbonate (Sodium Bicarbonate -) 650 mg GT BID [facility] Last Admin: 07/19/16 09:05 Dose: 650 mg Tamsulosin HCl (Flomax -) 0.4 mg PO DAILY@0830 [facility] Last Admin: 07/19/16 08:55 Dose: 0.4 mg Zinc Sulfate (Orazinc -) 220 mg NGT DAILY [facility] Last Admin: 07/19/16 09:05 Dose: 220 mg - Objective Vital Signs: Vital Signs Temperature 97.9 F 07/19/16 10:00 Pulse Rate 72 07/19/16 10:00 Respiratory Rate 20 07/19/16 10:00 Blood Pressure 96/49 07/19/16 10:00 O2 Sat by Pulse Oximetry (%) 93 L 07/18/16 21:00 Constitutional: Yes: No Distress Eyes: Yes: Conjunctiva Clear Cardiovascular: Yes: Regular Rate and Rhythm, Murmur, S1, S2 Respiratory: Yes: CTA Bilaterally Gastrointestinal: Yes: Normal Bowel Sounds, Soft. No: Tenderness Extremities: Yes: Other (S/P bilateral BKA) Integumentary: Yes: Other (+sacral decubitus ulcer) Labs: CBC, BMP 07/19/16 06:15 07/19/16 06:15 INR, PTT INR 1.08 (0.82-1.09) 07/01/16 01:45 Assessment/Plan Recurrent fever -resolved Decubitus ulcer s/p debridement C difficile + S/P bilateral BKA S/P ESBL UTI D/C ertapenem Continue flagyl 500mg GT q8h x 10days Local wound care OK for discharge
[2016-07-19] MEDS: COLLAGENASE CLOSTRIDIUM HIST. 30 GRAMS TUBE TP SCH (12:08)
[2016-07-19] MEDS: OLANZapine 5 MG TABLET GT SCH (12:09)
--- NOTE | 2016-07-19 13:24 | PN ---
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, Physician Chief Complaint: Patient lying in bed. Poorly responsive Tube feeding in progress. Good urine output Looks pale - Current Medication List Current Medications: Active Medications Acetaminophen (Ofirmev Injection -) 1,000 mg IVPB Q6H PRN PRN Reason: PAIN Last Admin: 07/17/16 21:58 Dose: 1,000 mg Acetaminophen (Tylenol Suppository -) 650 mg DC Q6H PRN PRN Reason: FEVER OR PAIN Acetaminophen (Tylenol Oral Solution -) 650 mg GT Q4H PRN PRN Reason: PAIN Last Admin: 07/17/16 10:49 Dose: 650 mg Albuterol Sulfate (Ventolin 0.083% Nebulizer Soln -) 1 amp NEB QIDR [facility] Last Admin: 07/19/16 12:00 Dose: 1 amp Amino Acids (Prosource No Carb Liquid Pkt) 30 ml NGT BID@0800,1730 [facility] Last Admin: 07/19/16 08:55 Dose: 30 ml Ascorbic Acid (Vitamin C Oral Solution -) 500 mg NGT TID [facility] Last Admin: 07/19/16 06:15 Dose: 500 mg Atorvastatin Calcium (Lipitor -) 10 mg NGT HS [facility] Last Admin: 07/18/16 22:32 Dose: 10 mg Bacitracin (Bacitracin -) 1 applic TP DAILY [facility] Last Admin: 07/19/16 09:07 Dose: 1 applic Collagenase (Santyl -) 1 applic TP DAILY [facility] Last Admin: 07/19/16 12:08 Dose: 1 applic Darbepoetin Joseph (Aranesp -) 25 mcg SQ Th@1000 [facility] Enoxaparin Sodium (Lovenox -) 50 mg SQ BID [facility] Last Admin: 07/19/16 09:05 Dose: 50 mg Escitalopram Oxalate (Lexapro -) 10 mg GT DAILY [facility] Last Admin: 07/19/16 09:05 Dose: 10 mg Ferrous Sulfate (Feosol) 300 mg GT TIDCM [facility] Last Admin: 07/19/16 12:14 Dose: 300 mg Insulin Aspart (Novolog Vial Sliding Scale -) 1 vial SQ ACHS [facility] PRN Reason: Protocol Last Admin: 07/19/16 12:06 Dose: 2 units Insulin Detemir (Levemir Vial) 8 units SQ [facility] Last Admin: 07/18/16 22:31 Dose: 8 units Insulin Detemir (Levemir Vial) 12 units SQ 0900 [facility] Last Admin: 07/19/16 09:06 Dose: 12 units Ipratropium [place] (Atrovent 0.02% Nebulizer -) 1 amp NEB Q6HPO [facility] Last Admin: 07/19/16 12:00 Dose: 1 amp Metoclopramide HCl (Reglan Oral Solution -) 5 mg GT TIDAC [facility] Last Admin: 07/19/16 12:09 Dose: 5 mg Metoprolol Tartrate (Lopressor -) 50 mg GT BID [facility] Last Admin: 07/19/16 09:05 Dose: 50 mg Metronidazole (Flagyl -) 500 mg PEG TID [facility] Last Admin: 07/19/16 06:14 Dose: 500 mg Mirtazapine (Remeron -) 30 mg GT [facility] Last Admin: 07/18/16 22:32 Dose: 30 mg Olanzapine (Zyprexa -) 5 mg GT BID [facility] Last Admin: 07/19/16 12:09 Dose: 5 mg Ranitidine HCl (Zantac Oral Solution -) 150 mg GT DAILY [facility] Last Admin: 07/19/16 09:05 Dose: 150 mg Senna (Senna Oral Solution -) 8.8 mg GT [facility] Last Admin: 07/18/16 22:32 Dose: 8.8 mg Sodium Bicarbonate (Sodium Bicarbonate -) 650 mg GT BID [facility] Last Admin: 07/19/16 09:05 Dose: 650 mg Tamsulosin HCl (Flomax -) 0.4 mg PO DAILY@0830 [facility] Last Admin: 07/19/16 08:55 Dose: 0.4 mg Zinc Sulfate (Orazinc -) 220 mg NGT DAILY [facility] Last Admin: 07/19/16 09:05 Dose: 220 mg - Objective Vital Signs: Vital Signs Temperature 97.9 F 07/19/16 10:00 Pulse Rate 72 07/19/16 10:00 Respiratory Rate 20 07/19/16 10:00 Blood Pressure 96/49 07/19/16 10:00 O2 Sat by Pulse Oximetry (%) 93 L 07/18/16 21:00 Constitutional: Yes: [place], Cachectic Cardiovascular: Yes: WNL, S1, S2 Respiratory: Yes: Regular Gastrointestinal: Yes: Soft, Other (G-tube in place) Integumentary: Yes: Other (Presacral decubitus) Neurological: Yes: Weakness Labs: CBC, BMP 07/19/16 06:15 07/19/16 06:15 INR, PTT INR 1.08 (0.82-1.09) 07/01/16 01:45 Assessment/Plan 80 y/o female with h/o multiple electrolyte disorders. S/p Bilateral amputation for PVD. Tendency for Hypernatremia. please note low grade fever...also can cause insensible water loss. Should be careful to avoid Dehydration, and thereby Hypernatremia. Tolerates the tube feedings. Thanks again. Will follow with you. Aysha Reese MD
[2016-07-22] MEDS ORDERED: Darbepoetin Alfa in Polysorbat 25 MCG/0.4 ML DISP.SYRIN SQ SCH (10:00)
== END 2016-07-19 15:06 | DRG 853 ==
LOC: JER 21:27 → JERBED 06-30 02:52 → J5S 06-30 15:47 → JICU 07-01 01:35 → J4W 07-07 23:53 → J4S 07-12 14:28 → J8W 07-14 17:20
PROVIDERS: ADMIT Family Medicine; ATTEND Family Medicine
PROC: 02HV33Z Insertion of Infusion Device into Superior Vena Cava, Percutaneous Approach (ICD-10-PCS; 2016-07-08)
PROC: B548ZZA Ultrasonography of Superior Vena Cava, Guidance (ICD-10-PCS; 2016-07-08)
PROC: 3E043XZ Introduction of Vasopressor into Central Vein, Percutaneous Approach (ICD-10-PCS; 2016-07-08)
PROC: 0DH67UZ Insertion of Feeding Device into Stomach, Via Natural or Artificial Opening (ICD-10-PCS; 2016-07-08)
PROC: 3E0G76Z Introduction of Nutritional Substance into Upper GI, Via Natural or Artificial Opening (ICD-10-PCS; 2016-07-08)
PROC: 0DH63UZ Insertion of Feeding Device into Stomach, Percutaneous Approach (ICD-10-PCS; 2016-07-08)
PROC: 30233N1 Transfusion of Nonautologous Red Blood Cells into Peripheral Vein, Percutaneous Approach (ICD-10-PCS; 2016-07-08)
PROC: 0KBP0ZZ Excision of Left Hip Muscle, Open Approach (ICD-10-PCS; principal; 2016-07-08 14:00)
DX: A41.9 Sepsis, unspecified organism (principal); J18.9 Pneumonia, unspecified organism; R65.21 Severe sepsis with septic shock; J96.01 Acute respiratory failure with hypoxia; L89.154 Pressure ulcer of sacral region, stage 4; E11.00 Type 2 diabetes mellitus with hyperosmolarity without nonketotic hyperglycemic-hyperosmolar coma (NKHHC); I26.99 Other pulmonary embolism without acute cor pulmonale; N39.0 Urinary tract infection, site not specified; N17.9 Acute kidney failure, unspecified; I13.0 Hypertensive heart and chronic kidney disease with heart failure and stage 1 through stage 4 chronic kidney disease, or unspecified chronic kidney disease; R64 Cachexia; E87.2 Acidosis; I82.412 Acute embolism and thrombosis of left femoral vein; I82.431 Acute embolism and thrombosis of right popliteal vein; I50.32 Chronic diastolic (congestive) heart failure; E87.0 Hyperosmolality and hypernatremia; K21.9 Gastro-esophageal reflux disease without esophagitis; E78.5 Hyperlipidemia, unspecified; Z79.4 Long term (current) use of insulin; E11.22 Type 2 diabetes mellitus with diabetic chronic kidney disease; N18.9 Chronic kidney disease, unspecified; Z89.512 Acquired absence of left leg below knee; Z89.511 Acquired absence of right leg below knee; F03.90 Unspecified dementia, unspecified severity, without behavioral disturbance, psychotic disturbance, mood disturbance, and anxiety; Z86.73 Personal history of transient ischemic attack (TIA), and cerebral infarction without residual deficits; D64.9 Anemia, unspecified; E86.1 Hypovolemia; E86.0 Dehydration; E11.65 Type 2 diabetes mellitus with hyperglycemia; B96.20 Unspecified Escherichia coli [E. coli] as the cause of diseases classified elsewhere; E83.39 Other disorders of phosphorus metabolism; E83.42 Hypomagnesemia; E83.51 Hypocalcemia; R62.7 Adult failure to thrive; R13.10 Dysphagia, unspecified; E87.8 Other disorders of electrolyte and fluid balance, not elsewhere classified
CPT/HCPCS: 36415; 36430; 36511; 36600; 71010-TC; 71250-TC; 74176-TC; 76775-TC; 80048; 80053; 81003; 81015; 82140; 82272; 82308; 82375; 82550; 82607; 82728; 82747; 82784; 82803; 82947; 83010; 83036; 83050; 83540; 83550; 83605; 83615; 83735; 83880; 84100; 84155; 84165; 84439; 84443; 84484; 85014; 85025; 85027; 85044; 85610; 85651; 85730; 86038; 86140; 86162; 86334; 86431; 86850; 86870; 86880; 86900; 86901; 86902; 86922; 87040; 87070; 87086; 87186; 87205; 87252; 87324; 87449; 87899; 88304-TC; 93005; 93010; 93306-TC; 93970-TC; 94640; 94660; 94760; 99285-25; G0480; J1644; J3480; P9038; P9058

== ENCOUNTER 2016-08-02 09:24 | Inpatient (IN) | payer OTHER ==
[2016-08-02] MEDS ORDERED: SODIUM CHLORIDE 0.9% 1000 ML INFUS.BAG IV PRN (09:29)
[2016-08-02] MEDS ORDERED: SODIUM CHLORIDE 1,000 ML IV STA (09:29)
[2016-08-02 09:49] VITALS: BMI 17.8
[2016-08-02] MEDS ORDERED: ACETAMINOPHEN 1000 MG/100 ML VIAL (NON FORMULARY) IVPB ONE (09:53)
[2016-08-02] MEDS ORDERED: VANCOMYCIN 1,000 MG in DEXTROSE 5%-WATER - 250 ML IVPB ONE (09:53)
[2016-08-02] MEDS ORDERED: PIPERACILLIN/TAZOB 4.5 GM/100 ML PRE-DOCKED IVPB ONE (09:54)
--- NOTE | 2016-08-02 10:11 | PDOC ---
History of Present Illness - General Chief Complaint: SIRS, Suspected/Possible Stated Complaint: HIGH TEMP Time Seen by Provider: 08/02/16 09:29 - History of Present Illness Initial Comments: 80 y/o F w/PMH of HTN, DM, HLD, GERD, Renal insufficiency, Dementia presents from [facility] with temperature of 100.5. Pt is non-verbal and history was unable to be obtained. 08/02/16 10:59 Past History - Past Medical History Allergies/Adverse Reactions: Allergies Allergy/AdvReac Type Severity Reaction Status Date / Time No Known Drug Allergies Allergy Verified 08/02/16 09:32 Home Medications: Ambulatory Orders Aa/[place] Ivone,[place]/Arg/C/Zn/Cu [Lps Critical Care Liquid] 960 ml GT BID Acetaminophen [Tylenol] 325 mg GT Q6H PRN 08/02/16 Albuterol 0.083% Nebulizer Elena [Ventolin 0.083%] 1 neb NEB QID 08/02/16 Ascorbate Calcium [Vitamin C] 500 mg GT TID 08/02/16 Darbepoetin Joseph in Polysorbat [Aranesp] 25 mcg SCJ WEEKLY 08/02/16 Enoxaparin Sodium [Lovenox] 60 mg SQ Q12H 08/02/16 Fentanyl 1 each TD Q72H 08/02/16 Ferrous Sulfate 325 mg GT TID 08/02/16 Insulin Glargine,Hum.rec.anlog [Lantus Solostar PEN (NF)] 12 units SQ DAILY 11/11 Insulin Lispro [Humalog] 16 unit SQ DAILY 08/02/16 Insulin Lispro [Humalog] 100 unit SQ TID 08/02/16 Ipratropium 0.02% Nebulizer [Atrovent] 1 neb NEB Q6H 08/02/16 Metoprolol Tartrate 50 mg GT BID 08/02/16 Mirtazapine [Remeron -] 30 mg PO DAILY 08/02/16 Olanzapine [Zyprexa] 5 mg GT BID 08/02/16 Omeprazole Magnesium [Prilosec] 20 mg GT DAILY 08/02/16 Sennosides [Senna Concentrate] 8.6 mg GT DAILY 08/02/16 Simvastatin 20 mg GT DAILY 08/02/16 Sodium Bicarbonate 650 mg GT BID 08/02/16 Tamsulosin HCl 0.8 mg GT DAILY 08/02/16 Vitamin B Comp W-C [Nephro-Rafael] 1 ea GT DAILY 08/02/16 Zinc Sulfate 220 mg GT DAILY 08/02/16 Anemia: Yes Asthma: No Cancer: No Cardiac Disorders: No CVA: Yes COPD: No CHF: Yes Dementia: Yes Diabetes: Yes (iddm) GI Disorders: Yes HTN: Yes Hypercholesterolemia: Yes Kidney Stones: No (acute kidney failure) Psychiatric Problems: Yes (anxeity,agitation,depression) Seizures: No Thyroid Disease: Yes - Surgical History Abdominal Surgery: Yes (GT PLACEMENT.) - Reproductive History Ectopic : No Polycystic Ovaries: No - Psycho/Social/Smoking Cessation Hx Anxiety: No Suicidal Ideation: No Smoking Status: No Smoking History: Unknown if ever smoked Have you smoked in the past 12 months: No Number of Cigarettes Smoked Daily: 0 Hx Alcohol Use: No Drug/Substance Use Hx: No Substance Use Type: None Hx Substance Use Treatment: No Review of Systems - Review of Systems Able to Perform ROS?: No (pt non-verbal) *Physical Exam - Vital Signs Last Vital Signs Temp Pulse Resp BP Pulse Ox 102 F H 100 H 16 117/59 100 08/02/16 09:29 08/02/16 09:29 08/02/16 09:29 08/02/16 09:29 08/02/16 09:29 - Physical Exam Comments: GENERAL: Dementia, non-verbal, in no acute distress. HEENT: Normocephalic, atraumatic. PERRLA. No conjunctival pallor. Sclera are non -icteric. CARDIOVASCULAR: Tachycardic. no rubs, or gallops. PULMONARY: On venti-mask. Auscultated anteriorly. Lungs clear to auscultation bilaterally. No wheezing, rales or rhonchi. ABDOMINAL: G-tube in place with no signs of infection around insertion site. Soft. Non-tender. Non-distended. No rebound or guarding. No organomegaly. Normoactive bowel sounds. EXTREMITIES: +B/L BKA. No cyanosis. No edema. No calf tenderness. SKIN: stage 4 sacral decubitis ulcer with wound vac dressing in place. NEUROLOGICAL: Dementia, non-verbal. PSYCHIATRIC: Dementia ED Treatment Course - LABORATORY CBC & Chemistry Diagram: 08/02/16 10:01 08/02/16 10:01 Medical Decision Making - Medical Decision Making 08/02/16 10:00 Pt has fever of 102, tachycardic, stage 4 sacral decub ulcer with wound vac dressing. 2/4 SIRS+ with possible sources of infection. Ordered for sepsis work up: CBC, CMP, lactic acid, CXR, UCx, BCx, WCx, cardiac profile, EKG. ofirmev, vanco, zosyn, fluids ordered 08/02/16 11:15 Trop back at 1.02 - ordered asa 325 via G-tube 08/02/16 11:29 WBC elevated @ 12.3, now presenting with SIRS 3/4 08/02/16 14:00 Lactic acid 1.083 Latest temp now at 99.[address] Eid covering for Dr. Garcia who accepts admission. Pt to be admitted to med/surg and ID to be consulted as per Dr. Eid. *DC/Admit/Observation/Transfer Diagnosis at time of Disposition: Severe sepsis UTI (urinary tract infection) Qualifiers: Urinary tract infection type: site unspecified Hematuria presence: without hematuria Qualified Code(s): N39.0 - Urinary tract infection, site not specified - Discharge Dispostion Admit: Yes - Referrals Referrals: Rashawn Garcia MD [Primary Care Provider] -
[2016-08-02] MEDS ORDERED: PIPERACILLIN/TAZOB 4.5 GM 100 ML IVPB ONE (10:13)
[2016-08-02] MEDS ORDERED: ACETAMINOPHEN INJECTION 100 ML IVPB ONE (10:13)
[2016-08-02] MEDS ORDERED: VANCOMYCIN 1 GRAM (PRE-DOCKED) 250 ML IVPB ONE ×2 (10:14)
[2016-08-02 10:17] LABS: BASOPHIL 0.3 % (0-2.0); EOSINOPHIL 0.1 % (0-4.5); MCH 29.8 pg (25.7-33.7); MCHC 31.7 g/dl (32.0-36.0); MEAN PLT VOLUME 8.8 fl (7.5-11.1); NEUTROPHILS 58.4 % (42.8-82.8); PLATELET COUNT 444 K/MM3 (134-434); RDW 18.5 % (11.6-15.6); WHITE BLOOD COUNT 12.3 K/mm3 (4.0-10.0)
--- NOTE | 2016-08-02 10:31 | PDOC ---
Attending Attestation - Resident Resident Name: Mark Anthony Rivers - ED Attending Attestation I have performed the following: I have examined & evaluated the patient, The case was reviewed & discussed with the resident, I agree w/resident's findings & plan, Exceptions are as noted - HPI HPI: 08/02/16 10:23 80-year-old female from [facility] with fever and tachycardia - Physicial Exam PE: 08/02/16 10:24 Febrile, tachycardic, nonverbal at baseline G-tube in place, abdomen soft vac dressing in place, stage III/4 ulceration with some surrounding cellulitis - Medical Decision Making 08/02/16 10:24 Patient seen and evaluated with the resident. I agree with the overall evaluation, assessment, and management with the following summary of visit: 80y/o F from [facility] with sepsis. sepsis protocol initiated tylenol for fever vanco/zosyn for broad spectrum abx admit 08/02/16 11:17 acute renal insufficiency, high Na, elevated troponin.
[2016-08-02 10:39] LABS: ALBUMIN 1.9 g/dl (3.4-5.0); CALCIUM 8.1 mg/dL (8.5-10.1)
[2016-08-02 10:44] LABS: BILIRUBIN,TOTAL 0.3 mg/dL (0.2-1.0); COCKROFT - GAULT 19.805; CREATININE 1.6 mg/dL (0.55-1.02); TOT PROT 6.9 g/dl (6.4-8.2)
[2016-08-02 11:00] LABS: TROPONIN I 1.02 ng/ml (0.00-0.05)
[2016-08-02] MEDS ORDERED: ASPIRIN 325 MG TABLET GT ONE (11:08)
[2016-08-02 11:16] LABS: INR 0.99 (0.82-1.09); PROTHROMBIN TIME (PATIENT) 10.9 SEC (9.98-11.88)
[2016-08-02 11:19] LABS: ACTIVATED PTT 28.5 SECONDS (26.9-34.4)
[2016-08-02 12:27] LABS: VENOUS PH 7.38 (7.32-7.42)
[2016-08-02 12:28] LABS: VENOUS BLOOD GAS HCO3 28.6 meq/L (19-25)
[2016-08-02] MEDS ORDERED: ASPIRIN 325 MG TABLET ONE (13:06)
--- NOTE | 2016-08-02 13:28 | EKG ---
Test Reason : Blood Pressure : / mmHG Vent. Rate : 094 BPM Atrial Rate : 094 BPM P-R Int : 108 ms QRS Dur : 080 ms QT Int : 418 ms P-R-T Axes : -14 -03 147 degrees QTc Int : 522 ms SINUS RHYTHM WITH SHORT NC PROLONGED QT ABNORMAL ECG WHEN COMPARED WITH ECG OF 07-JUL-2016 09:59, Confirmed by PATTI PARSONS MD ([id number]) on 08/02/2016 1:27:38 PM Referred By: Confirmed By:PATTI PARSONS MD
[2016-08-02 13:33] LABS: URINE APPEARANCE TURBID; URINE BILIRUBIN NEGATIVE (NEGATIVE); URINE BLOOD NEGATIVE (NEGATIVE); URINE COLOR DKYELLOW; URINE GLUCOSE (UA) 3+ (NEGATIVE); URINE KETONE TRACE (NEGATIVE); URINE NITRITE NEGATIVE (NEGATIVE); URINE UROBILINOGEN NEGATIVE E.U./dl (0.2-1.0)
[2016-08-02 13:35] LABS: URINE LEUK ESTERASE 3+ (NEGATIVE); URINE PROTEIN 1+ (NEGATIVE)
[2016-08-02 13:52] LABS: URINE BACTERIA MANY /hpf (NONE SEEN); URINE MUCUS FEW; URINE RBC 22 /hpf (0-3); URINE WBC 2002 /hpf (3-5)
[2016-08-02] MEDS ORDERED: SODIUM CHLORIDE 1,000 ML IV SCH (14:30)
--- NOTE | 2016-08-02 15:13 | HP ---
Admitting History and Physical - Primary Care Physician PCP: Rashawn Garcia - Admission History of Present Illness: 80yo Female patient with extensive medical history which includes HTN, DM, HLD, GERD bilateral BKApresents to ED via EMS from [facility]. had temp 100.5 over there at ER temp 102. wbc 12.3 na 151 elevated bun/cr postive UA gpt zosyn and vanco History Source: Medical Record Limitations to Obtaining History: Dementia - Past Medical History PHARMACY BUYER: Yes: CVA, Dementia Cardiovascular: Yes: CHF, HTN, Hyperlipdemia Pulmonary: Yes: COPD Gastrointestinal: Yes: GERD Renal/: Yes: Renal Inusuff Heme/Onc: Yes: Anemia Endocrine: Yes: Diabetes Mellitus - Smoking History Smoking history: Unknown if ever smoked Have you smoked in the past 12 months: No Aproximately how many cigarettes per day: 0 - Alcohol/Substance Use Hx Alcohol Use: No - Social History History of Recent Travel: No Home Medications - Allergies Allergies/Adverse Reactions: Allergies Allergy/AdvReac Type Severity Reaction Status Date / Time No Known Drug Allergies Allergy Verified 08/02/16 09:32 - Home Medications Home Medications: Ambulatory Orders Aa/Delta Ivone,Whey/Arg/C/Zn/Cu [Lps Critical Care Liquid] 960 ml GT BID Acetaminophen [Tylenol] 325 mg GT Q6H PRN 08/02/16 Albuterol 0.083% Nebulizer Elena [Ventolin 0.083%] 1 neb NEB QID 08/02/16 Ascorbate Calcium [Vitamin C] 500 mg GT TID 08/02/16 Darbepoetin Joseph in Polysorbat [Aranesp] 25 mcg SCJ WEEKLY 08/02/16 Enoxaparin Sodium [Lovenox] 60 mg SQ Q12H 08/02/16 Fentanyl 1 each TD Q72H 08/02/16 Ferrous Sulfate 325 mg GT TID 08/02/16 Insulin Glargine,Hum.rec.anlog [Lantus Solostar PEN (NF)] 12 units SQ DAILY 11/11 Insulin Lispro [Humalog] 16 unit SQ DAILY 08/02/16 Insulin Lispro [Humalog] 100 unit SQ TID 08/02/16 Ipratropium 0.02% Nebulizer [Atrovent] 1 neb NEB Q6H 08/02/16 Metoprolol Tartrate 50 mg GT BID 08/02/16 Mirtazapine [Remeron -] 30 mg PO DAILY 08/02/16 Olanzapine [Zyprexa] 5 mg GT BID 08/02/16 Omeprazole Magnesium [Prilosec] 20 mg GT DAILY 08/02/16 Sennosides [Senna Concentrate] 8.6 mg GT DAILY 08/02/16 Simvastatin 20 mg GT DAILY 08/02/16 Sodium Bicarbonate 650 mg GT BID 08/02/16 Tamsulosin HCl 0.8 mg GT DAILY 08/02/16 Vitamin B Comp W-C [Nephro-Rafael] 1 ea GT DAILY 08/02/16 Zinc Sulfate 220 mg GT DAILY 08/02/16 Review of Systems Unable to obtain ROS, reason: dementia Physical Examination Vital Signs: Vital Signs Temperature 98.6 F 08/02/16 14:21 Pulse Rate 88 08/02/16 14:21 Respiratory Rate 16 08/02/16 14:21 Blood Pressure 92/53 08/02/16 14:36 O2 Sat by Pulse Oximetry (%) 98 08/02/16 14:21 Constitutional: Yes: Calm, Thin Cardiovascular: Yes: Regular Rate and Rhythm, S1, S2 Respiratory: Yes: CTA Bilaterally, Diminished (at bases) Gastrointestinal: Yes: Normal Bowel Sounds, Soft Musculoskeletal: Yes: Other (BKA) Wound/Incision: Yes: Other (wound vac) Problem List - Problems (1) UTI (urinary tract infection) Assessment/Plan: ID eval awaitng cultures Code(s): N39.0 - URINARY TRACT INFECTION, SITE NOT SPECIFIED Qualifiers: Urinary tract infection type: site unspecified Hematuria presence: without hematuria Qualified Code(s): N39.0 - Urinary tract infection, site not specified (2) ARF (acute renal failure) Assessment/Plan: ivf renal eval monitor lytes Code(s): N17.9 - ACUTE KIDNEY FAILURE, UNSPECIFIED (3) Decubitus ulcer Assessment/Plan: wound care Code(s): L89.90 - PRESSURE ULCER OF UNSPECIFIED SITE, UNSPECIFIED STAGE Qualifiers: Pressure ulcer location: buttock (4) Dementia Assessment/Plan: zyprexa nameda remeron Code(s): F03.90 - UNSPECIFIED DEMENTIA WITHOUT BEHAVIORAL DISTURBANCE (5) Hypernatremia Assessment/Plan: ivf Code(s): E87.0 - HYPEROSMOLALITY AND HYPERNATREMIA
[2016-08-02] MEDS ORDERED: DEXTROSE 5%-WATER - 1,000 ML IV SCH ×2 (15:15→15:30)
[2016-08-02] MEDS ORDERED: IPRATROPIUM BR 0.02% 0.5 MG/2.5 ML VIAL.NEB. NEB SCH (15:30)
[2016-08-02] MEDS ORDERED: ALBUTEROL SO4 0.083% IH SOL 2.5 MG/3 ML VIAL.NEB. NEB ONE (16:12)
[2016-08-02] MEDS: INSULIN SLIDING SCALE (NOVOLOG) 1 VIAL SQ SCH ×2 (16:34→23:42)
[2016-08-02] MEDS ORDERED: INSULIN (NOVOLOG) ASPART 100 UNITS/ML 10ML VIAL ONE (16:39)
[2016-08-02] MEDS ORDERED: ENOXAPARIN NA (PORCINE) 40 MG/0.4 ML DISP.SYRIN SQ SCH (17:30)
[2016-08-02] MEDS: IPRATROPIUM BR 0.02% 0.5 MG/2.5 ML VIAL.NEB. NEB SCH (18:08)
[2016-08-02] MEDS ORDERED: ACETAMINOPHEN 325 MG TABLET (FP) ONE (21:16)
[2016-08-02] MEDS: ACETAMINOPHEN 650 MG/20.3 ML ORAL SOLUTION (CUPS) GT PRN (21:25)
[2016-08-02] MEDS ORDERED: HEPARIN NA (PORCINE) 5,000 UNITS/ML 1ML VIAL SQ SCH (22:00)
[2016-08-02] MEDS ORDERED: ENOXAPARIN NA (PORCINE) 60 MG/0.6 ML DISP.SYRIN SQ SCH (22:00)
[2016-08-02 22:21] LABS: CALCIUM 7.6 mg/dL (8.5-10.1); COCKROFT - GAULT 26.435; CREATININE 1.2 mg/dL (0.55-1.02)
[2016-08-02 22:22] LABS: TROPONIN I 0.48 ng/ml (0.00-0.05)
[2016-08-02] MEDS: MIRTAZAPINE 30 MG TABLET (FP) PO SCH (23:38)
[2016-08-02] MEDS: INSULIN DETEMIR 100 UNITS/ML MDV SQ SCH (23:43)
[2016-08-02] MEDS: OLANZapine 5 MG TABLET GT SCH (23:57)
[2016-08-03] MEDS: INSULIN SLIDING SCALE (NOVOLOG) 1 VIAL SQ SCH ×4 (06:27→22:19)
[2016-08-03 08:02] LABS: BASOPHIL 0.4 % (0-2.0); EOSINOPHIL 0.9 % (0-4.5); MCH 29.9 pg (25.7-33.7); MCHC 31.4 g/dl (32.0-36.0); MEAN PLT VOLUME 8.9 fl (7.5-11.1); NEUTROPHILS 72.1 % (42.8-82.8); PLATELET COUNT 386 K/MM3 (134-434); RDW 19.1 % (11.6-15.6); WHITE BLOOD COUNT 9.7 K/mm3 (4.0-10.0)
--- NOTE | 2016-08-03 08:11 | PN ---
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, Physician History of Present Illness: 80yo Female patient with extensive medical history which includes HTN, DM, HLD, GERD bilateral BKA presents to ED via EMS from [facility] for evaluation of fever - Current Medication List Current Medications: Active Medications Acetaminophen (Tylenol Oral Solution -) 650 mg GT Q6H PRN PRN Reason: FEVER OR PAIN Last Admin: 08/02/16 21:25 Dose: 650 mg Enoxaparin Sodium (Lovenox -) 40 mg SQ DAILY [facility] Last Admin: 08/02/16 17:42 Dose: 40 mg Escitalopram Oxalate (Lexapro Oral Solution -) 10 mg GT DAILY [facility] Dextrose (D5w -) 1,000 mls @ 42 mls/hr IV ASDIR [facility] Last Admin: 08/02/16 17:41 Dose: 42 mls/hr Insulin Aspart (Novolog Vial Sliding Scale -) 1 vial SQ ACHS [facility] PRN Reason: Protocol Last Admin: 08/03/16 06:27 Dose: 2 units Insulin Detemir (Levemir Vial) 16 units SQ [facility] Last Admin: 08/02/16 23:43 Dose: 16 units Ipratropium [place] (Atrovent 0.02% Nebulizer -) 1 amp NEB QIDR [facility] Last Admin: 08/02/16 18:08 Dose: 1 amp Mirtazapine (Remeron -) 30 mg PO HS [facility] Last Admin: 08/02/16 23:38 Dose: Not Given Olanzapine (Zyprexa -) 5 mg GT HS [facility] Last Admin: 08/02/16 23:57 Dose: 5 mg Ranitidine HCl (Zantac Oral Solution -) 150 mg GT DAILY [facility] Tamsulosin HCl (Flomax -) 0.8 mg PO DAILY@0830 [facility] - Objective Vital Signs: Vital Signs Temperature 98.4 F 08/03/16 02:00 Pulse Rate 81 08/03/16 02:00 Respiratory Rate 20 08/03/16 02:00 Blood Pressure 96/51 08/03/16 02:00 O2 Sat by Pulse Oximetry (%) 100 08/03/16 01:27 Cardiovascular: Yes: Murmur, S1, S2 Respiratory: Yes: Regular, CTA Bilaterally Gastrointestinal: Yes: Normal Bowel Sounds, Soft Edema: No Labs: INR, PTT INR 0.99 (0.82-1.09) 08/02/16 10:01 Problem List - Problems (1) UTI (urinary tract infection) Assessment/Plan: IV ABX CULTURES ID CONSULT Code(s): N39.0 - URINARY TRACT INFECTION, SITE NOT SPECIFIED Qualifiers: Urinary tract infection type: site unspecified Hematuria presence: without hematuria Qualified Code(s): N39.0 - Urinary tract infection, site not specified (2) ARF (acute renal failure) Assessment/Plan: MONITOR ON CURRENT FLUIDS DC IVF FLUIDS VIA PEG Code(s): N17.9 - ACUTE KIDNEY FAILURE, UNSPECIFIED (3) Acute bilateral deep vein thrombosis (DVT) of femoral veins Assessment/Plan: LOVENOX Code(s): I82.413 - ACUTE EMBOLISM AND THROMBOSIS OF FEMORAL VEIN, BILATERAL (4) Aortic stenosis Assessment/Plan: CARDIO Code(s): I35.0 - NONRHEUMATIC AORTIC (VALVE) STENOSIS Qualifiers: Cardiac valve disease etiology: nonrheumatic Qualified Code(s): I35.0 - Nonrheumatic aortic (valve) stenosis (5) Decubitus ulcer Assessment/Plan: SURGICAL EVAL Code(s): L89.90 - PRESSURE ULCER OF UNSPECIFIED SITE, UNSPECIFIED STAGE Qualifiers: Pressure ulcer location: buttock (6) Fever Assessment/Plan: CULTURES ID Code(s): R50.9 - FEVER, UNSPECIFIED (7) Type 2 diabetes mellitus with other diabetic kidney complication Assessment/Plan: BGM SS Code(s): E11.29 - TYPE 2 DIABETES MELLITUS W OTH DIABETIC KIDNEY COMPLICATION
[2016-08-03 09:17] LABS: ALBUMIN 1.7 g/dl (3.4-5.0); BILIRUBIN,TOTAL 0.3 mg/dL (0.2-1.0); CALCIUM 7.8 mg/dL (8.5-10.1); COCKROFT - GAULT 32.6655; CREATININE 1.1 mg/dL (0.55-1.02); MAGNESIUM 2.8 mg/dL (1.8-2.4); TOT PROT 6.4 g/dl (6.4-8.2)
--- NOTE | 2016-08-03 09:22 | PN ---
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 (short form) - Note 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: WOUND CARE - Felipe Rivers DO Called to eval 80 yo female well known to Wound Care Service, examine her sacral ulcer. Chronic stage 3 with signs of progression to stage 4. Dimensions ~ 7 x 7 cm. Minimal undermining. Mixed fibrogranular base superiorly. No foul odor. Surrounding erythema. No bogginess or fluctuance. Last Vital Signs Temp Pulse Resp BP Pulse Ox 98.4 F 81 20 96/51 100 08/03/16 02:00 08/03/16 02:00 08/03/16 02:00 08/03/16 02:00 08/03/16 01:27 CBC, BMP 08/03/16 06:00 08/03/16 06:00 A/P Sacral pressure Ulcer 1. Frequent repositioning 2. Offload remaining pressure sensitive areas 3. Santyl to areas with fribrinous tissue until clean 4.Wet to dry daily dressing changes 5. No surgical debridement needed 6. Cont medical management 7. re-consult surgery PRN On behalf of the Surgical Team, thank you for the opportunity to participate in your patient's care.
[2016-08-03 09:48] LABS: TROPONIN I 0.56 ng/ml (0.00-0.05)
[2016-08-03] MEDS ORDERED: PT OWN MED DRAWER 7, Y5N ONE (10:02)
[2016-08-03] MEDS: ACETAMINOPHEN 650 MG/20.3 ML ORAL SOLUTION (CUPS) GT PRN ×2 (10:24→18:40)
[2016-08-03] MEDS: RANITIDINE HCL 150 MG/10 ML UNIT-DOSE CUP GT SCH (10:24)
[2016-08-03] MEDS: ESCITALOPRAM OXALATE 5 MG/5 ML GT SCH (10:24)
[2016-08-03] MEDS: TAMSULOSIN HCL 0.4 MG CAP.ER.24H (FP) PO SCH (10:25)
[2016-08-03] MEDS: ENOXAPARIN NA (PORCINE) 40 MG/0.4 ML DISP.SYRIN SQ SCH ×2 (11:18→22:19)
[2016-08-03] MEDS: COLLAGENASE CLOSTRIDIUM HIST. 30 GRAMS TUBE TP SCH (12:00)
--- NOTE | 2016-08-03 12:26 | PN ---
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 (short form) - Note 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: Vascular Surgery Pt seen and examined. Sacral wound is stage 4 It is clean VAC ordered to area. Felipe Rivers DO
--- NOTE | 2016-08-03 13:11 | CONSULT ---
Consult - text type - Consultation Consultation Note: Renal Consult for CKD/Hypernatremia This is a 80 year old woman with PMhx of Multiple GIANNI's, Hypernatremia, Hypertension, DM, HLD, GERD, PVD s/p b/l BKA who presented from [place] with Fever and found to have Na of 150 and Cr of 1.1. Pt is s/p recent admission for infected sacral wound during which a feeding tube was placed as pt was not able to meed her oral intake requirements. Pt is awake and alert but is not Lib[place] speaking. Pt curretly on tube feeds. No overnight events. Seen by vascular Sx for for sacral wound and is to have Vac placed. No fevers currently. PMhx: as above Allergies: NKDA Family Hx: NC Social Hx: No T/A/D ROS: unable to obtain because of language barrier and clinical status Home Meds: Home Medications Medication Instructions Recorded Aa/[place] Ivone,Whey/Arg/C/Zn/Cu 960 ml GT BID 08/02/16 [Lps Critical Care Liquid] Acetaminophen [Tylenol] 325 mg GT Q6H PRN 08/02/16 Albuterol 0.083% Nebulizer Elena 1 neb NEB QID 08/02/16 [Ventolin 0.083%] Ascorbate Calcium [Vitamin C] 500 mg GT TID 08/02/16 Darbepoetin Joseph in Polysorbat 25 mcg SCJ WEEKLY 08/02/16 [Aranesp] Enoxaparin Sodium [Lovenox] 60 mg SQ Q12H 08/02/16 Fentanyl 1 each TD Q72H 08/02/16 Ferrous Sulfate 325 mg GT TID 08/02/16 Insulin Glargine,Hum.rec.anlog 12 units SQ DAILY 08/02/16 [Lantus Solostar PEN (NF)] Insulin Lispro [Humalog] 16 unit SQ DAILY 08/02/16 Insulin Lispro [Humalog] 100 unit SQ TID 08/02/16 Ipratropium 0.02% Nebulizer 1 neb NEB Q6H 08/02/16 [Atrovent] Metoprolol Tartrate 50 mg GT BID 08/02/16 Mirtazapine [Remeron -] 30 mg PO DAILY 08/02/16 Olanzapine [Zyprexa] 5 mg GT BID 08/02/16 Omeprazole Magnesium [Prilosec] 20 mg GT DAILY 08/02/16 Sennosides [Senna Concentrate] 8.6 mg GT DAILY 08/02/16 Simvastatin 20 mg GT DAILY 08/02/16 Sodium Bicarbonate 650 mg GT BID 08/02/16 Tamsulosin HCl 0.8 mg GT DAILY 08/02/16 Tamsulosin HCl [Flomax] 0.8 mg GT DAILY #20 cap.er.24h 08/02/16 Vitamin B Comp W-C [Nephro-Rafael] 1 ea GT DAILY 08/02/16 Zinc Sulfate 220 mg GT DAILY 08/02/16 Vital Signs Temperature 98.2 F 08/03/16 08:10 Pulse Rate 82 08/03/16 08:10 Respiratory Rate 16 08/03/16 08:10 Blood Pressure 110/60 08/03/16 08:10 O2 Sat by Pulse Oximetry (%) 96 08/03/16 09:00 Intake & Output 07/31/16 08/01/16 08/02/16 08/03/16 23:59 23:59 23:59 23:59 Intake Total 920 Balance 920 Weight 97 lb 6.4 oz 110 lb 0.4 oz Gen: NAD, awake and alert HEENT: NC/AT, MMM, No JVD CVS: RRR, No M/R Lungs: CTA Abd: Soft NT/ND. Feeding tube in place Ext: No edema, b/l BKA Neuro:awake and alert CBC, BMP 08/03/16 06:00 08/03/16 06:00 Laboratory Tests 08/03/16 08/03/16 08/03/16 06:00 06:00 06:00 MCV 95.0 Calcium 7.8 L Magnesium 2.8 H D Iron Pending TIBC Pending Iron Saturation Pending Ferritin Albumin 1.7 L 08/03/16 06:00 MCV Calcium Magnesium Iron TIBC Iron Saturation Ferritin 895.871 H Albumin Current Medications Acetaminophen (Tylenol Oral Solution -) 650 mg GT Q6H PRN PRN Reason: FEVER OR PAIN Last Admin: 08/03/16 10:24 Dose: 650 mg Collagenase (Santyl -) 1 applic TP DAILY [facility] Enoxaparin Sodium (Lovenox -) 40 mg SQ BID [facility] Last Admin: 08/03/16 11:18 Dose: 40 mg Escitalopram Oxalate (Lexapro Oral Solution -) 10 mg GT DAILY [facility] Last Admin: 08/03/16 10:24 Dose: 10 mg Insulin Aspart (Novolog Vial Sliding Scale -) 1 vial SQ ACHS [facility] PRN Reason: Protocol Last Admin: 08/03/16 12:19 Dose: Not Given Insulin Detemir (Levemir Vial) 16 units SQ [facility] Last Admin: 08/02/16 23:43 Dose: 16 units Ipratropium [place] (Atrovent 0.02% Nebulizer -) 1 amp NEB QIDR [facility] Last Admin: 08/02/16 18:08 Dose: 1 amp Mirtazapine (Remeron -) 30 mg PO HS [facility] Last Admin: 08/02/16 23:38 Dose: Not Given Olanzapine (Zyprexa -) 5 mg GT HS [facility] Last Admin: 08/02/16 23:57 Dose: 5 mg Ranitidine HCl (Zantac Oral Solution -) 150 mg GT DAILY [facility] Last Admin: 08/03/16 10:24 Dose: 150 mg Tamsulosin HCl (Flomax -) 0.8 mg PO DAILY@0830 [facility] Last Admin: 08/03/16 10:25 Dose: 0.8 mg A/P 80 year old woman with PMhx of Multiple GIANNI's, Hypernatremia, Hypertension, DM, HLD, GERD, PVD s/p b/l BKA who presented [place] with Fever and found to have Na of 150 and Cr of 1.1. #Hypernatremia Water deficit is 1.8L Start 1/2NS at 75cc in addition to free water via feeding tube Trend Na daily #GIANNI on CKD Likely from volume depletion + sepsis/renal hypoperfusion trend BUN/Cr with hypotonic saline give isotonic saline if hypotensive #Fever/Sacral Decubitis/Suspected UTI f/u cultures Abx as per primary/ID #Anemia iron studies pending no acute indication for transfusion at this time #Pseudohypocalcemia Corrected Ca is WNL #Hypermagnesemia will start IVF Trend Mg daily Thank you Vahid Manzano DO
[2016-08-03] MEDS ORDERED: SODIUM CHLORIDE 0.45% 1,000 ML IV SCH (13:30)
--- NOTE | 2016-08-03 14:14 | PN ---
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 (short form) - Note 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: ID Consult dictated UTI/ Sepsis secondary to UTI Hx ESBL OBS Await c/s Empiric ertapenem
--- NOTE | 2016-08-03 14:44 | CONS ---
DATE OF CONSULTATION: HISTORY: The patient is a 80-year-old female who is evaluated for fever. History was obtained from the chart as she cannot give a history secondary to dementia. Her normal baseline status is that she is nonverbal. [facility]. The patient in the emergency room was noted to have a fever of 102. She was empirically treated with vancomycin and Zosyn. The patient has had multiple recent hospital admissions. She recently underwent bilateral [id number] amputations. Her clinical course has been complicated by sacral decubitus ulcer and positive wound culture and urine culture for ESBL. Urine culture is now growing a lactose coordinator hotels. She is unable to offer any additional history. PAST MEDICAL HISTORY: Positive for dementia, hypertension, diabetes, hyperlipidemia, gastroesophageal reflux, chronic kidney disease, sacral decubitus ulcer. PAST SURGICAL HISTORY: Status post bilateral wlpyh-krx-[id number] amputations and feeding gastrostomy. ALLERGIES: No known allergies. MEDICATIONS: Include Flomax, Lovenox, Lexapro, Remeron, Zyprexa, Zantac, Levemir. SOCIAL HISTORY: shelter resident. Dependent in activities of daily living. No active tobacco or alcohol use. LABORATORY DATA: White count on admission 12.3, presently 9.7, hematocrit 27, platelet count 386, BUN 51, creatinine 1.1. Urinalysis 2002 white cells. Blood cultures preliminarily negative. Urine culture growing a lactose coordinator hotels. Chest x-ray negative for acute infiltrate. PHYSICAL EXAMINATION: General: She is awake but she is not verbally responsive. Vital Signs: Temperature 98.2, T-max 102, blood pressure 110/80, pulse 82 and regular, respirations 20 per minute. HEENT: Sclerae anicteric. Heart: Sounds S1, S2 with a 2/6 pansystolic murmur. Lungs: Diminished breath sounds bilaterally. Abdomen: Soft. No tenderness elicited. No mass, rebound, or rigidity. Feeding gastrostomy tube, no erythema or tenderness. Extremities: Status post bilateral rywjk-xwd-htlr amputations. IMPRESSION: 1. Urinary tract infection/sepsis secondary to urinary tract infection. 2. History of extended-spectrum beta-lactamase. 3. Dementia. 4. Status post bilateral lohxl-fcj-glho amputations. 5. Sacral decubitus ulcer. PLAN: Await sepsis workup. Would empirically cover for ESBL in light of high-grade fever and prior history. We will give ertapenem 1 g IV piggyback every 24 hours. Continue local wound care. Aspiration precautions. Contact precautions. We will follow. Thank you for the kind referral. ARVIND HENLEY M.D. FARHAD/[id number]
--- NOTE | 2016-08-03 15:42 | CON.CARD ---
Consult Consult Specialty:: Cardiology Reason for Consultation:: Arrhythmia - History of Present Illness Chief Complaint: Presently appears comfortable and in no acute distress History of Present Illness: This is a 80 year old female with a PMH of HTN, DM, HLD, GERD, CVA's, PVD with bilateral BKA's, COPD, history of DVT's, past episodes of sepsis secondary to UTI's, and h/o infected sacral decubs status post debridement. has feeding tube. An echocardiogram performed on 07/01/16 showed normal LV function with moderate aortic stenosis. She presents now from the residential with fever and found to have hypernatremia. Noted to have runs of nonsustained Ventricular tachycardia. 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 Cardio/Vascular: Yes: CHF, HTN, Hyperlipdemia Pulmonary: Yes: COPD Gastrointestinal: Yes: GERD Renal/: Yes: Renal Inusuff Endocrine: Yes: Diabetes Mellitus - Past Surgical History Additional Surgical History: S/P sacral decub debridement - Alcohol/Substance Use Hx Alcohol Use: No - Smoking History Smoking history: Unknown if ever smoked Have you smoked in the past 12 months: No Aproximately how many cigarettes per day: 0 - Social History Usual Living Arrangement: Long Term History of Recent Travel: No Home Medications - Allergies Allergies/Adverse Reactions: Allergies Allergy/AdvReac Type Severity Reaction Status Date / Time No Known Drug Allergies Allergy Verified 08/02/16 09:32 - Home Medications Home Medications: Ambulatory Orders Aa/[place] Ivone,Whey/Arg/C/Zn/Cu [Lps Critical Care Liquid] 960 ml GT BID Acetaminophen [Tylenol] 325 mg GT Q6H PRN 08/02/16 Albuterol 0.083% Nebulizer Elena [Ventolin 0.083%] 1 neb NEB QID 08/02/16 Ascorbate Calcium [Vitamin C] 500 mg GT TID 08/02/16 Darbepoetin Joseph in Polysorbat [Aranesp] 25 mcg SCJ WEEKLY 08/02/16 Enoxaparin Sodium [Lovenox] 60 mg SQ Q12H 08/02/16 Fentanyl 1 each TD Q72H 08/02/16 Ferrous Sulfate 325 mg GT TID 08/02/16 Insulin Glargine,Hum.rec.anlog [Lantus Solostar PEN (NF)] 12 units SQ DAILY 11/11 Insulin Lispro [Humalog] 16 unit SQ DAILY 08/02/16 Insulin Lispro [Humalog] 100 unit SQ TID 08/02/16 Ipratropium 0.02% Nebulizer [Atrovent] 1 neb NEB Q6H 08/02/16 Metoprolol Tartrate 50 mg GT BID 08/02/16 Mirtazapine [Remeron -] 30 mg PO DAILY 08/02/16 Olanzapine [Zyprexa] 5 mg GT BID 08/02/16 Omeprazole Magnesium [Prilosec] 20 mg GT DAILY 08/02/16 Sennosides [Senna Concentrate] 8.6 mg GT DAILY 08/02/16 Simvastatin 20 mg GT DAILY 08/02/16 Sodium Bicarbonate 650 mg GT BID 08/02/16 Tamsulosin HCl 0.8 mg GT DAILY 08/02/16 Tamsulosin HCl [Flomax] 0.8 mg GT DAILY #20 cap.er.24h 08/02/16 Vitamin B Comp W-C [Nephro-Rafael] 1 ea GT DAILY 08/02/16 Zinc Sulfate 220 mg GT DAILY 08/02/16 Review of Systems Unable to obtain ROS, reason: As per HPI Vital Signs: Vital Signs Temperature 98 F 08/03/16 14:10 Pulse Rate 82 08/03/16 14:10 Respiratory Rate 18 08/03/16 14:10 Blood Pressure 114/79 08/03/16 14:10 O2 Sat by Pulse Oximetry (%) 96 08/03/16 09:00 Constitutional: Yes: Other (Sleepy but arousable No acute distress) Gastrointestinal: Yes: Soft Cardiovascular: Yes: Regular Rate and Rhythm Heart Sounds: Yes: S1, S2 Murmur: Yes: Systolic Murmur, Grade 2 (RUSB radiating to the carotids) Extremities: Yes: Other (Bilateral BKA's) - Other Data Labs, Other Data: CBC, BMP 08/03/16 06:00 08/03/16 06:00 INR, PTT INR 0.99 (0.82-1.09) 08/02/16 10:01 Troponin, BNP 08/02/16 08/03/16 21:30 06:00 Troponin I 0.48 H 0.56 H Troponin, BNP 08/02/16 08/03/16 21:30 06:00 Troponin I 0.48 H 0.56 H Assessment/Plan Non sustained ventricular tachycardia Continue to monitor Follow electrolytes, especially K+ and Mg++ while hydrating Given overall clinical status, would not be a candidate for invasive testing or advance therapies such as an AICD Would treat conservatively with low dose beta blockers such as metoprolol succinate 12.5 mg via GT q12 hours Will follow with you
[2016-08-03] MEDS: ERTAPENEM SODIUM 1 GM in SODIUM CHLORIDE 50 ML IVPB SCH (17:58)
[2016-08-03] MEDS: IPRATROPIUM BR 0.02% 0.5 MG/2.5 ML VIAL.NEB. NEB SCH ×2 (18:00→23:35)
[2016-08-03] MEDS ORDERED: MIRTAZAPINE 15 MG TABLET (FP) ONE (22:03)
[2016-08-03] MEDS: INSULIN DETEMIR 100 UNITS/ML MDV SQ SCH (22:19)
[2016-08-03] MEDS: MIRTAZAPINE 30 MG TABLET (FP) PO SCH (22:20)
[2016-08-03] MEDS: OLANZapine 5 MG TABLET GT SCH (22:20)
[2016-08-04] MEDS: ACETAMINOPHEN 650 MG/20.3 ML ORAL SOLUTION (CUPS) GT PRN ×4 (02:50→22:48)
[2016-08-04] MEDS: IPRATROPIUM BR 0.02% 0.5 MG/2.5 ML VIAL.NEB. NEB SCH ×3 (06:35→17:20)
[2016-08-04] MEDS: INSULIN SLIDING SCALE (NOVOLOG) 1 VIAL SQ SCH ×4 (06:40→22:49)
[2016-08-04 07:04] LABS: BASOPHIL 0.3 % (0-2.0); EOSINOPHIL 2.6 % (0-4.5); MCH 30.2 pg (25.7-33.7); MEAN CELL VOLUME 94.2 fl (80-96); MEAN PLT VOLUME 9.1 fl (7.5-11.1); NEUTROPHILS 64.5 % (42.8-82.8); PLATELET COUNT 357 K/MM3 (134-434); RDW 18.7 % (11.6-15.6); WHITE BLOOD COUNT 8.1 K/mm3 (4.0-10.0)
[2016-08-04 08:08] LABS: SERUM IRON 28 ug/dL (27-139); TOTAL IRON BINDING CAPACITY 114 ug/dL (250-450); UIBC 86 ug/dL (118-369)
--- NOTE | 2016-08-04 09:21 | PN ---
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, Physician History of Present Illness: 80yo Female patient with extensive medical history which includes HTN, DM, HLD, GERD bilateral BKA presents to ED via EMS from [facility] for evaluation of fever - Current Medication List Current Medications: Active Medications Acetaminophen (Tylenol Oral Solution -) 650 mg GT Q6H PRN PRN Reason: FEVER OR PAIN Last Admin: 08/04/16 02:52 Dose: 650 mg Collagenase (Santyl -) 1 applic TP DAILY [facility] Last Admin: 08/03/16 12:00 Dose: 1 applic Enoxaparin Sodium (Lovenox -) 40 mg SQ BID [facility] Last Admin: 08/03/16 22:19 Dose: 40 mg Escitalopram Oxalate (Lexapro Oral Solution -) 10 mg GT DAILY [facility] Last Admin: 08/03/16 10:24 Dose: 10 mg Sodium Chloride (1/2 Normal Saline) 1,000 mls @ 75 mls/hr IV ASDIR [facility] Last Admin: 08/03/16 14:30 Dose: 75 mls/hr Ertapenem 1 gm/ Sodium (Chloride) 50 mls @ 100 mls/hr IVPB DAILY [facility] PRN Reason: Protocol Last Admin: 08/03/16 17:58 Dose: 100 mls/hr Insulin Aspart (Novolog Vial Sliding Scale -) 1 vial SQ ACHS [facility] PRN Reason: Protocol Last Admin: 08/04/16 06:40 Dose: Not Given Insulin Detemir (Levemir Vial) 16 units SQ HS [facility] Last Admin: 08/03/16 22:19 Dose: 16 units Ipratropium [place] (Atrovent 0.02% Nebulizer -) 1 amp NEB QIDR [facility] Last Admin: 08/04/16 06:35 Dose: 1 amp Mirtazapine (Remeron -) 30 mg PO HS [facility] Last Admin: 08/03/16 22:20 Dose: 30 mg Olanzapine (Zyprexa -) 5 mg GT HS [facility] Last Admin: 08/03/16 22:20 Dose: 5 mg Ranitidine HCl (Zantac Oral Solution -) 150 mg GT DAILY [facility] Last Admin: 08/03/16 10:24 Dose: 150 mg Tamsulosin HCl (Flomax -) 0.8 mg PO DAILY@0830 [facility] Last Admin: 08/03/16 10:25 Dose: 0.8 mg - Objective Vital Signs: Vital Signs Temperature 99.0 F 08/04/16 06:00 Pulse Rate 90 08/04/16 08:27 Respiratory Rate 20 08/04/16 08:27 Blood Pressure 98/50 08/04/16 08:27 O2 Sat by Pulse Oximetry (%) 100 08/03/16 21:00 Cardiovascular: Yes: Murmur, S1, S2 Respiratory: Yes: Regular, CTA Bilaterally Gastrointestinal: Yes: Normal Bowel Sounds, Soft Extremities: Yes: Amputation Labs: CBC, BMP 08/04/16 05:35 INR, PTT INR 0.99 (0.82-1.09) 08/02/16 10:01 Problem List - Problems (1) UTI (urinary tract infection) Assessment/Plan: IV ABX CULTURES ID CONSULT Code(s): N39.0 - URINARY TRACT INFECTION, SITE NOT SPECIFIED Qualifiers: Urinary tract infection type: site unspecified Hematuria presence: without hematuria Qualified Code(s): N39.0 - Urinary tract infection, site not specified (2) ARF (acute renal failure) Assessment/Plan: MONITOR ON CURRENT FLUIDS DC IVF FLUIDS VIA PEG Code(s): N17.9 - ACUTE KIDNEY FAILURE, UNSPECIFIED (3) Acute bilateral deep vein thrombosis (DVT) of femoral veins Assessment/Plan: LOVENOX Code(s): I82.413 - ACUTE EMBOLISM AND THROMBOSIS OF FEMORAL VEIN, BILATERAL (4) Aortic stenosis Assessment/Plan: CARDIO Code(s): I35.0 - NONRHEUMATIC AORTIC (VALVE) STENOSIS Qualifiers: Cardiac valve disease etiology: nonrheumatic Qualified Code(s): I35.0 - Nonrheumatic aortic (valve) stenosis (5) Decubitus ulcer Assessment/Plan: SURGICAL EVAL FOR VAC ABX PER ID Code(s): L89.90 - PRESSURE ULCER OF UNSPECIFIED SITE, UNSPECIFIED STAGE Qualifiers: Pressure ulcer location: buttock (6) Fever Assessment/Plan: CULTURES ID Code(s): R50.9 - FEVER, UNSPECIFIED (7) Type 2 diabetes mellitus with other diabetic kidney complication Assessment/Plan: BGM SS Code(s): E11.29 - TYPE 2 DIABETES MELLITUS W OTH DIABETIC KIDNEY COMPLICATION
[2016-08-04] MEDS: ERTAPENEM SODIUM 1 GM in SODIUM CHLORIDE 50 ML IVPB SCH (10:42)
[2016-08-04] MEDS: TAMSULOSIN HCL 0.4 MG CAP.ER.24H (FP) PO SCH (10:42)
[2016-08-04] MEDS: RANITIDINE HCL 150 MG/10 ML UNIT-DOSE CUP GT SCH (10:42)
[2016-08-04] MEDS: ENOXAPARIN NA (PORCINE) 40 MG/0.4 ML DISP.SYRIN SQ SCH ×2 (10:43→22:47)
[2016-08-04] MEDS: COLLAGENASE CLOSTRIDIUM HIST. 30 GRAMS TUBE TP SCH (10:44)
[2016-08-04 11:15] LABS: ALBUMIN 1.6 g/dl (3.4-5.0); ANION GAP 10 (8-16); BILIRUBIN,TOTAL 0.2 mg/dL (0.2-1.0); CALCIUM 7.5 mg/dL (8.5-10.1); CO2 28 mmol/L (21-32); CREATININE 0.7 mg/dL (0.55-1.02); GLUCOSE,RANDOM 136 mg/dL (74-106); MAGNESIUM 2.8 mg/dL (1.8-2.4); PHOSPHOROUS 2.5 mg/dL (2.5-4.9); SGOT/AST 20 U/L (15-37); SGPT/ALT 18 U/L (12-78); TOT PROT 5.9 g/dl (6.4-8.2)
[2016-08-04 11:16] LABS: ALK PHOS 101 U/L (45-117)
--- NOTE | 2016-08-04 11:49 | PN ---
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, Physician History of Present Illness: Awake, non verbal No acute distress Temps, WBC improved BC (-) Urine c/s LF - Current Medication List Current Medications: Active Medications Acetaminophen (Tylenol Oral Solution -) 650 mg GT Q6H PRN PRN Reason: FEVER OR PAIN Last Admin: 08/04/16 02:52 Dose: 650 mg Collagenase (Santyl -) 1 applic TP DAILY [facility] Last Admin: 08/04/16 10:44 Dose: 1 applic Enoxaparin Sodium (Lovenox -) 40 mg SQ BID [facility] Last Admin: 08/04/16 10:43 Dose: 40 mg Escitalopram Oxalate (Lexapro Oral Solution -) 10 mg GT DAILY [facility] Last Admin: 08/03/16 10:24 Dose: 10 mg Sodium Chloride (1/2 Normal Saline) 1,000 mls @ 75 mls/hr IV ASDIR [facility] Last Admin: 08/03/16 14:30 Dose: 75 mls/hr Ertapenem 1 gm/ Sodium (Chloride) 50 mls @ 100 mls/hr IVPB DAILY [facility] PRN Reason: Protocol Last Admin: 08/04/16 10:42 Dose: 100 mls/hr Insulin Aspart (Novolog Vial Sliding Scale -) 1 vial SQ ACHS [facility] PRN Reason: Protocol Last Admin: 08/04/16 06:40 Dose: Not Given Insulin Detemir (Levemir Vial) 16 units SQ HS [facility] Last Admin: 08/03/16 22:19 Dose: 16 units Ipratropium [place] (Atrovent 0.02% Nebulizer -) 1 amp NEB QIDR [facility] Last Admin: 08/04/16 06:35 Dose: 1 amp Mirtazapine (Remeron -) 30 mg PO HS [facility] Last Admin: 08/03/16 22:20 Dose: 30 mg Olanzapine (Zyprexa -) 5 mg GT HS [facility] Last Admin: 08/03/16 22:20 Dose: 5 mg Ranitidine HCl (Zantac Oral Solution -) 150 mg GT DAILY [facility] Last Admin: 08/04/16 10:42 Dose: 150 mg Tamsulosin HCl (Flomax -) 0.8 mg PO DAILY@0830 [facility] Last Admin: 08/04/16 10:42 Dose: 0.8 mg - Objective Vital Signs: Vital Signs Temperature 99.0 F 08/04/16 06:00 Pulse Rate 90 08/04/16 08:27 Respiratory Rate 20 08/04/16 08:27 Blood Pressure 98/50 08/04/16 08:27 O2 Sat by Pulse Oximetry (%) 100 08/03/16 21:00 Constitutional: Yes: No Distress Eyes: Yes: Conjunctiva Clear Cardiovascular: Yes: Regular Rate and Rhythm, S1, S2 Respiratory: Yes: CTA Bilaterally Gastrointestinal: Yes: Normal Bowel Sounds, Soft. No: Tenderness Extremities: Yes: Other (s/p bilateral BKA) Integumentary: Yes: Other (Stage IV sacral decubitus Deep but clean. No drainge or foul odor) Labs: CBC, BMP 08/04/16 05:35 08/04/16 05:35 INR, PTT INR 0.99 (0.82-1.09) 08/02/16 10:01 Assessment/Plan UTI/ Sepsis secondary to UTI Fever/ leukocytosis improved Stage IV sacral decubitus Hx ESBL OBS Continue ertapenem Await cultures Contact precautions
[2016-08-04] MEDS ORDERED: SODIUM CHLORIDE 0.45% 1,000 ML IV SCH (13:48)
--- NOTE | 2016-08-04 13:50 | PN ---
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 (short form) - Note 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: Renal Follow up for hypernatermia and CKD Pt seen and examined at the bedside awake no overnight events no fever on IVF Vital Signs Temperature 98.8 F 08/04/16 08:27 Pulse Rate 90 08/04/16 08:27 Respiratory Rate 20 08/04/16 08:27 Blood Pressure 98/50 08/04/16 08:27 O2 Sat by Pulse Oximetry (%) 98 08/04/16 09:00 Intake & Output 08/01/16 08/02/16 08/03/16 08/04/16 23:59 23:59 23:59 23:59 Intake Total 1270 1920 Output Total 100 Balance 1170 1920 Weight 97 lb 6.4 oz 110 lb 0.4 oz Gen: NAD, awake and alert CVS: RRR, No M/R Lungs: CTA Abd: Soft NT/ND. Feeding tube in place Ext: No edema, b/l BKA CBC, BMP 08/04/16 05:35 08/04/16 05:35 Current Medications Acetaminophen (Tylenol Oral Solution -) 650 mg GT Q6H PRN PRN Reason: FEVER OR PAIN Last Admin: 08/04/16 02:52 Dose: 650 mg Collagenase (Santyl -) 1 applic TP DAILY [facility] Last Admin: 08/04/16 10:44 Dose: 1 applic Enoxaparin Sodium (Lovenox -) 40 mg SQ BID [facility] Last Admin: 08/04/16 10:43 Dose: 40 mg Escitalopram Oxalate (Lexapro Oral Solution -) 10 mg GT DAILY [facility] Last Admin: 08/03/16 10:24 Dose: 10 mg Ertapenem 1 gm/ Sodium (Chloride) 50 mls @ 100 mls/hr IVPB DAILY [facility] PRN Reason: Protocol Last Admin: 08/04/16 10:42 Dose: 100 mls/hr Sodium Chloride (1/2 Normal Saline) 1,000 mls @ 50 mls/hr IV ASDIR [facility] Insulin Aspart (Novolog Vial Sliding Scale -) 1 vial SQ ACHS [facility] PRN Reason: Protocol Last Admin: 08/04/16 13:22 Dose: Not Given Insulin Detemir (Levemir Vial) 16 units SQ HS [facility] Last Admin: 08/03/16 22:19 Dose: 16 units Ipratropium [place] (Atrovent 0.02% Nebulizer -) 1 amp NEB QIDR [facility] Last Admin: 08/04/16 11:45 Dose: 1 amp Mirtazapine (Remeron -) 30 mg PO HS [facility] Last Admin: 08/03/16 22:20 Dose: 30 mg Olanzapine (Zyprexa -) 5 mg GT HS [facility] Last Admin: 08/03/16 22:20 Dose: 5 mg Ranitidine HCl (Zantac Oral Solution -) 150 mg GT DAILY [facility] Last Admin: 08/04/16 10:42 Dose: 150 mg Tamsulosin HCl (Flomax -) 0.8 mg PO DAILY@0830 [facility] Last Admin: 08/04/16 10:42 Dose: 0.8 mg A/P 80 year old woman with PMhx of Multiple GIANNI's, Hypernatremia, Hypertension, DM, HLD, GERD, PVD s/p b/l BKA who presented from [place] with Fever and found to have Na of 150 and Cr of 1.1. #Hypernatremia Na improved decrease IVF rate to 50cc continue free water with GT feeds #GIANNI on CKD Likely from volume depletion + sepsis/renal hypoperfusion BUN improving with fluid hydration #Fever/Sacral Decubitis/Suspected UTI f/u cultures Abx as per primary/ID Thank you Vahid Manzano DO
[2016-08-04] MEDS: ESCITALOPRAM OXALATE 5 MG/5 ML GT SCH (14:25)
--- NOTE | 2016-08-04 16:08 | PN ---
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, Physician Chief Complaint: No acute distress NSVT History of Present Illness: This is a 80 year old female with a PMH of HTN, DM, HLD, GERD, CVA's, PVD with bilateral BKA's, COPD, history of DVT's, past episodes of sepsis secondary to UTI's, and h/o infected sacral decubs status post debridement. has feeding tube. An echocardiogram performed on 07/01/16 showed normal LV function with moderate aortic stenosis. [facility] and found to have hypernatremia. Noted to have runs of nonsustained Ventricular tachycardia. 08/03/16 A 10 best runs was noted at 2:13 pm 08/04/16 BP 100/50 mmHg, would hold off on adding Beta Blockers at this time. - Current Medication List Current Medications: Active Medications Acetaminophen (Tylenol Oral Solution -) 650 mg GT Q6H PRN PRN Reason: FEVER OR PAIN Last Admin: 08/04/16 14:24 Dose: 650 mg Collagenase (Santyl -) 1 applic TP DAILY [facility] Last Admin: 08/04/16 10:44 Dose: 1 applic Enoxaparin Sodium (Lovenox -) 40 mg SQ BID [facility] Last Admin: 08/04/16 10:43 Dose: 40 mg Escitalopram Oxalate (Lexapro Oral Solution -) 10 mg GT DAILY [facility] Last Admin: 08/04/16 14:25 Dose: 10 mg Ertapenem 1 gm/ Sodium (Chloride) 50 mls @ 100 mls/hr IVPB DAILY [facility] PRN Reason: Protocol Last Admin: 08/04/16 10:42 Dose: 100 mls/hr Sodium Chloride (1/2 Normal Saline) 1,000 mls @ 50 mls/hr IV ASDIR [facility] Last Admin: 08/04/16 14:25 Dose: 50 mls/hr Insulin Aspart (Novolog Vial Sliding Scale -) 1 vial SQ ACHS [facility] PRN Reason: Protocol Last Admin: 08/04/16 13:22 Dose: Not Given Insulin Detemir (Levemir Vial) 16 units SQ HS [facility] Last Admin: 08/03/16 22:19 Dose: 16 units Ipratropium [place] (Atrovent 0.02% Nebulizer -) 1 amp NEB QIDR [facility] Last Admin: 08/04/16 11:45 Dose: 1 amp Mirtazapine (Remeron -) 30 mg PO HS [facility] Last Admin: 08/03/16 22:20 Dose: 30 mg Olanzapine (Zyprexa -) 5 mg GT HS [facility] Last Admin: 08/03/16 22:20 Dose: 5 mg Ranitidine HCl (Zantac Oral Solution -) 150 mg GT DAILY [facility] Last Admin: 08/04/16 10:42 Dose: 150 mg Tamsulosin HCl (Flomax -) 0.8 mg PO DAILY@0830 [facility] Last Admin: 08/04/16 10:42 Dose: 0.8 mg - Objective Vital Signs: Vital Signs Temperature 98.8 F 08/04/16 14:00 Pulse Rate 91 H 08/04/16 14:00 Respiratory Rate 20 08/04/16 14:00 Blood Pressure 100/50 08/04/16 14:00 O2 Sat by Pulse Oximetry (%) 98 08/04/16 09:00 Constitutional: Yes: Other (Sleepy but arousable) Cardiovascular: Yes: Regular Rate and Rhythm, S1, S2 (2/6 HALLEY RUSB radiating to the carotids) Gastrointestinal: Yes: Soft Extremities: Yes: Other (Bilateral BKA's) Labs: CBC, BMP 08/04/16 05:35 08/04/16 05:35 INR, PTT INR 0.99 (0.82-1.09) 08/02/16 10:01 Assessment/Plan Non sustained ventricular tachycardia Treating conservatively Following electrolytes, especially K+ and Mg++ Given overall clinical status, would not be a candidate for invasive testing or advance therapies such as an AICD Given low BP, would not start Beta Blockers at this time. Will follow with you
[2016-08-04] MEDS ORDERED: MIRTAZAPINE 15 MG TABLET (FP) ONE (22:38)
[2016-08-04] MEDS: INSULIN DETEMIR 100 UNITS/ML MDV SQ SCH (22:47)
[2016-08-04] MEDS: OLANZapine 5 MG TABLET GT SCH (22:48)
[2016-08-04] MEDS: MIRTAZAPINE 30 MG TABLET (FP) PO SCH (22:48)
--- NOTE | 2016-08-04 23:45 | CONSULT ---
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 Cardio/Vascular: Yes: CHF, HTN, Hyperlipdemia Pulmonary: Yes: COPD Gastrointestinal: Yes: GERD Renal/: Yes: Renal Inusuff Endocrine: Yes: Diabetes Mellitus - Past Surgical History Additional Surgical History: S/P sacral decub debridement - Alcohol/Substance Use Hx Alcohol Use: No - Smoking History Smoking history: Unknown if ever smoked Have you smoked in the past 12 months: No Aproximately how many cigarettes per day: 0 - Social History Usual Living Arrangement: Retirement History of Recent Travel: No Home Medications - Allergies Allergies/Adverse Reactions: Allergies Allergy/AdvReac Type Severity Reaction Status Date / Time No Known Drug Allergies Allergy Verified 08/02/16 09:32 - Home Medications Home Medications: Ambulatory Orders Aa/[place] Ivone,[place]/Arg/C/Zn/Cu [Lps Critical Care Liquid] 960 ml GT BID Acetaminophen [Tylenol] 325 mg GT Q6H PRN 08/02/16 Albuterol 0.083% Nebulizer Elena [Ventolin 0.083%] 1 neb NEB QID 08/02/16 Ascorbate Calcium [Vitamin C] 500 mg GT TID 08/02/16 Darbepoetin Joseph in [place]ysorbat [Aranesp] 25 mcg SCJ WEEKLY 08/02/16 Enoxaparin Sodium [Lovenox] 60 mg SQ Q12H 08/02/16 Insulin Glargine,Hum.rec.anlog [Lantus Solostar PEN (NF)] 12 units SQ DAILY 11/11 Insulin Lispro [Humalog] 16 unit SQ DAILY 08/02/16 Insulin Lispro [Humalog] 100 unit SQ TID 08/02/16 Ipratropium 0.02% Nebulizer [Atrovent] 1 neb NEB Q6H 08/02/16 Mirtazapine [Remeron -] 30 mg PO DAILY 08/02/16 Olanzapine [Zyprexa] 5 mg GT BID 08/02/16 Omeprazole Magnesium [Prilosec] 20 mg GT DAILY 08/02/16 RX: Fentanyl 1 each TD Q72H 08/02/16 RX: Ferrous Sulfate 325 mg GT TID 08/02/16 RX: Metoprolol Tartrate 50 mg GT BID 08/02/16 RX: Simvastatin 20 mg GT DAILY 08/02/16 RX: Sodium Bicarbonate 650 mg GT BID 08/02/16 RX: Tamsulosin HCl 0.8 mg GT DAILY 08/02/16 RX: Zinc Sulfate 220 mg GT DAILY 08/02/16 Sennosides [Senna Concentrate] 8.6 mg GT DAILY 08/02/16 Tamsulosin HCl [Flomax] 0.8 mg GT DAILY #20 cap.er.24h 08/02/16 Vitamin B Comp W-C [Nephro-Rafael] 1 ea GT DAILY 08/02/16 Review of Systems Unable to obtain ROS, reason: dementia Physical Exam Vital Signs: Vital Signs Temperature 98.1 F 08/04/16 17:00 Pulse Rate 88 08/04/16 17:00 Respiratory Rate 18 08/04/16 17:00 Blood Pressure 115/67 08/04/16 17:00 O2 Sat by Pulse Oximetry (%) 98 08/04/16 09:00 Constitutional: Yes: Anxious Eyes: Yes: EOM Intact HENT: Yes: Normocephalic Neck: Yes: Trachea Midline Cardiovascular: Yes: Regular Rate and Rhythm Respiratory: Yes: CTA Bilaterally Gastrointestinal: Yes: Soft ...Rectal Exam: Yes: Deferred Renal/: Yes: WNL Musculoskeletal: Yes: Muscle Pain, Muscle Weakness Extremities: Yes: WNL Edema: No Neurological: Yes: Alert, Confusion, Weakness Psychiatric: Yes: Agitated Labs: CBC, BMP 08/04/16 05:35 08/04/16 05:35 Assessment/Plan Current Active Problems Severe sepsis (Acute) UTI (urinary tract infection) (Acute) iddm uncontrolled hyperglycemia Abnormal Lab Results 08/03/16 08/04/16 08/04/16 06:00 05:35 05:35 RBC 2.81 L Hgb 8.5 L Hct 26.5 L RDW 18.7 H Sodium 147 H Chloride 109 H BUN 39 H D Random Glucose 136 H D Calcium 7.5 L Magnesium 2.8 H TIBC 114 L Total Protein 5.9 L Albumin 1.6 L Laboratory Results - last 24 hr 08/03/16 08/04/16 08/04/16 06:00 05:35 05:35 WBC 8.1 RBC 2.81 L Hgb 8.5 L Hct 26.5 L MCV 94.2 MCHC 32.0 RDW 18.7 H Plt Count 357 MPV 9.1 Neutrophils % 64.5 Lymphocytes % 26.8 D Monocytes % 5.8 Eosinophils % 2.6 D Basophils % 0.3 Sodium 147 H Potassium 4.2 Chloride 109 H Carbon Dioxide 28 Anion Gap 10 BUN 39 H D Creatinine 0.7 D Creat Clearance w eGFR > 60 POC Glucometer Random Glucose 136 H D Calcium 7.5 L Phosphorus 2.5 Magnesium 2.8 H Iron 28 TIBC 114 L Iron Saturation 25 Total Bilirubin 0.2 D AST 20 D ALT 18 Alkaline Phosphatase 101 D Total Protein 5.9 L Albumin 1.6 L 08/04/16 08/04/16 08/04/16 06:30 11:11 15:47 WBC RBC Hgb Hct MCV MCHC RDW Plt Count MPV Neutrophils % Lymphocytes % Monocytes % Eosinophils % Basophils % Sodium Potassium Chloride Carbon Dioxide Anion Gap BUN Creatinine Creat Clearance w eGFR POC Glucometer 148 127 158 Random Glucose Calcium Phosphorus Magnesium Iron TIBC Iron Saturation Total Bilirubin AST ALT Alkaline Phosphatase Total Protein Albumin 08/04/16 22:19 WBC RBC Hgb Hct MCV MCHC RDW Plt Count MPV Neutrophils % Lymphocytes % Monocytes % Eosinophils % Basophils % Sodium Potassium Chloride Carbon Dioxide Anion Gap BUN Creatinine Creat Clearance w eGFR POC Glucometer 251 Random Glucose Calcium Phosphorus Magnesium Iron TIBC Iron Saturation Total Bilirubin AST ALT Alkaline Phosphatase Total Protein Albumin Laboratory Tests 08/04/16 08/04/16 08/04/16 05:35 06:30 11:11 Sodium 147 H Potassium 4.2 Chloride 109 H Carbon Dioxide 28 Anion Gap 10 Creatinine 0.7 D Creat Clearance w eGFR > 60 POC Glucometer 148 127 08/04/16 08/04/16 15:47 22:19 Sodium Potassium Chloride Carbon Dioxide Anion Gap Creatinine Creat Clearance w eGFR POC Glucometer 158 251 plan: bgm qid novolog insulin dose continue levemir 16 units hs Current Medications Generic Name Dose Route Start Last Admin Trade Name Freq PRN Reason Stop Dose Admin Acetaminophen 650 mg 08/02/16 15:24 08/04/16 22:48 Tylenol Oral Solution - GT 650 mg Q6H PRN Administration FEVER OR PAIN Collagenase 1 applic 08/03/16 11:00 08/04/16 10:44 Santyl - TP 1 applic DAILY [facility] Administration Enoxaparin Sodium 40 mg 08/03/16 10:00 08/04/16 22:47 Lovenox - SQ 40 mg BID [facility] Administration Escitalopram Oxalate 10 mg 08/03/16 10:00 08/04/16 14:25 Lexapro Oral Solution - GT 10 mg DAILY [facility] Administration Ertapenem 1 gm/ Sodium 50 mls @ 100 mls/hr 08/03/16 14:30 08/04/16 10:42 Chloride IVPB 100 mls/hr DAILY [facility] Administration Protocol Sodium Chloride 1,000 mls @ 50 mls/hr 08/04/16 13:48 08/04/16 14:25 1/2 Normal Saline IV 50 mls/hr ASDIR [facility] Administration Insulin Aspart 1 vial 08/02/16 16:30 08/04/16 22:49 Novolog Vial Sliding Scale - SQ 2 units ACHS [facility]Y Administration Protocol Insulin Detemir 16 units 08/02/16 22:00 08/04/16 22:47 Levemir Vial SQ 16 units HS [facility] Administration Ipratropium [place] 1 amp 08/02/16 16:50 08/04/16 17:20 Atrovent 0.02% Nebulizer - NEB 1 amp QIDR [facility] Administration Mirtazapine 30 mg 08/02/16 22:00 08/04/16 22:48 Remeron - PO 30 mg HS [facility] Administration Olanzapine 5 mg 08/02/16 22:00 08/04/16 22:48 Zyprexa - GT 5 mg HS [facility] Administration Ranitidine HCl 150 mg 08/03/16 10:00 08/04/16 10:42 Zantac Oral Solution - GT 150 mg DAILY [facility] Administration Tamsulosin HCl 0.8 mg 08/03/16 08:30 08/04/16 10:42 Flomax - PO 0.8 mg DAILY@0830 [facility] Administration
[2016-08-05] MEDS: IPRATROPIUM BR 0.02% 0.5 MG/2.5 ML VIAL.NEB. NEB SCH ×5 (00:41→23:33)
[2016-08-05] MEDS: INSULIN SLIDING SCALE (NOVOLOG) 1 VIAL SQ SCH ×4 (06:26→21:54)
[2016-08-05 06:47] LABS: BASOPHIL 0.3 % (0-2.0); EOSINOPHIL 1.5 % (0-4.5); MCH 30.1 pg (25.7-33.7); MCHC 32.4 g/dl (32.0-36.0); MEAN CELL VOLUME 92.6 fl (80-96); MEAN PLT VOLUME 8.9 fl (7.5-11.1); NEUTROPHILS 65.1 % (42.8-82.8); PLATELET COUNT 377 K/MM3 (134-434); RDW 18.6 % (11.6-15.6); WHITE BLOOD COUNT 7.8 K/mm3 (4.0-10.0)
[2016-08-05 07:28] LABS: CALCIUM 7.7 mg/dL (8.5-10.1)
[2016-08-05 07:31] LABS: COCKROFT - GAULT 71.876; CREATININE 0.5 mg/dL (0.55-1.02); MAGNESIUM 2.6 mg/dL (1.8-2.4); PHOSPHOROUS 2.4 mg/dL (2.5-4.9)
--- NOTE | 2016-08-05 08:00 | PN ---
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, Physician History of Present Illness: 80yo Female patient with extensive medical history which includes HTN, DM, HLD, GERD bilateral BKA presents to ED via EMS from [facility] for evaluation of fever - Current Medication List Current Medications: Active Medications Acetaminophen (Tylenol Oral Solution -) 650 mg GT Q6H PRN PRN Reason: FEVER OR PAIN Last Admin: 08/04/16 22:48 Dose: 650 mg Collagenase (Santyl -) 1 applic TP DAILY [facility] Last Admin: 08/04/16 10:44 Dose: 1 applic Enoxaparin Sodium (Lovenox -) 40 mg SQ BID [facility] Last Admin: 08/04/16 22:47 Dose: 40 mg Escitalopram Oxalate (Lexapro Oral Solution -) 10 mg GT DAILY [facility] Last Admin: 08/04/16 14:25 Dose: 10 mg Ertapenem 1 gm/ Sodium (Chloride) 50 mls @ 100 mls/hr IVPB DAILY [facility] PRN Reason: Protocol Last Admin: 08/04/16 10:42 Dose: 100 mls/hr Sodium Chloride (1/2 Normal Saline) 1,000 mls @ 50 mls/hr IV ASDIR [facility] Last Admin: 08/04/16 14:25 Dose: 50 mls/hr Insulin Aspart (Novolog Vial Sliding Scale -) 1 vial SQ ACHS [facility] PRN Reason: Protocol Last Admin: 08/05/16 06:26 Dose: Not Given Insulin Detemir (Levemir Vial) 16 units SQ HS [facility] Last Admin: 08/04/16 22:47 Dose: 16 units Ipratropium [place] (Atrovent 0.02% Nebulizer -) 1 amp NEB QIDR [facility] Last Admin: 08/05/16 06:58 Dose: 1 amp Mirtazapine (Remeron -) 30 mg PO HS [facility] Last Admin: 08/04/16 22:48 Dose: 30 mg Olanzapine (Zyprexa -) 5 mg GT HS [facility] Last Admin: 08/04/16 22:48 Dose: 5 mg Ranitidine HCl (Zantac Oral Solution -) 150 mg GT DAILY [facility] Last Admin: 08/04/16 10:42 Dose: 150 mg Tamsulosin HCl (Flomax -) 0.8 mg PO DAILY@0830 [facility] Last Admin: 08/04/16 10:42 Dose: 0.8 mg - Objective Vital Signs: Vital Signs Temperature 98.8 F 08/05/16 05:47 Pulse Rate 93 H 08/05/16 05:47 Respiratory Rate 20 08/05/16 05:47 Blood Pressure 109/57 08/05/16 05:47 O2 Sat by Pulse Oximetry (%) 98 08/04/16 21:00 Cardiovascular: Yes: S1, S2 Respiratory: Yes: Regular, CTA Bilaterally Gastrointestinal: Yes: Normal Bowel Sounds, Soft Extremities: Yes: Amputation Labs: CBC, BMP 08/05/16 05:35 08/05/16 05:35 INR, PTT INR 0.99 (0.82-1.09) 08/02/16 10:01 Problem List - Problems (1) UTI (urinary tract infection) Assessment/Plan: IV ABX CULTURES ID CONSULT Code(s): N39.0 - URINARY TRACT INFECTION, SITE NOT SPECIFIED Qualifiers: Qualified Code(s): N39.0 - Urinary tract infection, site not specified (2) ARF (acute renal failure) Assessment/Plan: MONITOR ON CURRENT FLUIDS DC IVF FLUIDS VIA PEG Laboratory Tests 08/02/16 08/05/16 21:30 05:35 BUN 56 H 27 H D Creatinine 1.2 H D 0.5 L D Code(s): N17.9 - ACUTE KIDNEY FAILURE, UNSPECIFIED (3) Acute bilateral deep vein thrombosis (DVT) of femoral veins Assessment/Plan: LOVENOX Code(s): I82.413 - ACUTE EMBOLISM AND THROMBOSIS OF FEMORAL VEIN, BILATERAL (4) Aortic stenosis Assessment/Plan: CARDIO Code(s): I35.0 - NONRHEUMATIC AORTIC (VALVE) STENOSIS Qualifiers: Qualified Code(s): I35.0 - Nonrheumatic aortic (valve) stenosis (5) Decubitus ulcer Assessment/Plan: SURGICAL EVAL FOR VAC ABX PER ID Code(s): L89.90 - PRESSURE ULCER OF UNSPECIFIED SITE, UNSPECIFIED STAGE (6) Fever Assessment/Plan: RESOLVED ID ON CASE ABX PER ID Code(s): R50.9 - FEVER, UNSPECIFIED (7) Type 2 diabetes mellitus with other diabetic kidney complication Code(s): E11.29 - TYPE 2 DIABETES MELLITUS W OTH DIABETIC KIDNEY COMPLICATION
[2016-08-05] MEDS ORDERED: FUROSEMIDE 40 MG/4 ML INJECTABLE VIAL IVPUSH ONE (08:01)
[2016-08-05] MEDS: RANITIDINE HCL 150 MG/10 ML UNIT-DOSE CUP GT SCH (10:21)
[2016-08-05] MEDS: ERTAPENEM SODIUM 1 GM in SODIUM CHLORIDE 50 ML IVPB SCH (10:21)
[2016-08-05] MEDS: ENOXAPARIN NA (PORCINE) 40 MG/0.4 ML DISP.SYRIN SQ SCH ×2 (10:21→21:57)
[2016-08-05] MEDS: ESCITALOPRAM OXALATE 5 MG/5 ML GT SCH (10:21)
[2016-08-05] MEDS: TAMSULOSIN HCL 0.4 MG CAP.ER.24H (FP) PO SCH (10:21)
[2016-08-05] MEDS: ACETAMINOPHEN 650 MG/20.3 ML ORAL SOLUTION (CUPS) GT PRN (10:22)
[2016-08-05] MEDS ORDERED: IBUPROFEN 800 MG/8 ML IJ IVPB ONE ×2 (11:47→12:00)
[2016-08-05] MEDS: COLLAGENASE CLOSTRIDIUM HIST. 30 GRAMS TUBE TP SCH (12:00)
[2016-08-05] MEDS ORDERED: VANCOMYCIN 1 GRAM (PRE-DOCKED) 250 ML IVPB ONE (13:30)
[2016-08-05] MEDS ORDERED: SODIUM CHLORIDE 0.45% 1,000 ML IV SCH (14:30)
--- NOTE | 2016-08-05 14:34 | PN ---
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 (short form) - Note 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: Renal Follow up for hypernatermia and CKD Pt seen and examined at the bedside awake getting prbc transfusion BP is marginal this am no overnight events Vital Signs Temperature 99 F 08/05/16 14:00 Pulse Rate 94 H 08/05/16 14:00 Respiratory Rate 16 08/05/16 14:00 Blood Pressure 84/48 08/05/16 14:00 O2 Sat by Pulse Oximetry (%) 98 08/04/16 21:00 Intake & Output 08/02/16 08/03/16 08/04/16 08/05/16 23:59 23:59 23:59 23:59 Intake Total 1270 3470 1620 Output Total 100 Balance 1170 3470 1620 Weight 97 lb 6.4 oz 110 lb 0.4 oz 113 lb 9.6 oz Gen: NAD, awake and alert CVS: RRR, No M/R Lungs: CTA Abd: Soft NT/ND. Feeding tube in place Ext: No edema, b/l BKA CBC, BMP 08/05/16 05:35 08/05/16 05:35 Laboratory Tests 08/05/16 05:35 Calcium 7.7 L Phosphorus 2.4 L Magnesium 2.6 H Current Medications Acetaminophen (Tylenol Oral Solution -) 650 mg GT Q6H PRN PRN Reason: FEVER OR PAIN Last Admin: 08/05/16 10:22 Dose: 650 mg Collagenase (Santyl -) 1 applic TP DAILY [facility] Last Admin: 08/04/16 10:44 Dose: 1 applic Enoxaparin Sodium (Lovenox -) 40 mg SQ BID [facility] Last Admin: 08/05/16 10:21 Dose: 40 mg Escitalopram Oxalate (Lexapro Oral Solution -) 10 mg GT DAILY [facility] Last Admin: 08/05/16 10:21 Dose: 10 mg Ertapenem 1 gm/ Sodium (Chloride) 50 mls @ 100 mls/hr IVPB DAILY [facility] PRN Reason: Protocol Last Admin: 08/05/16 10:21 Dose: 100 mls/hr Vancomycin HCl (Vancomycin (Pre-Docked)) 250 mls @ 166.667 mls/hr IVPB ONCE ONE Stop: 08/05/16 14:59 Sodium Chloride (1/2 Normal Saline) 1,000 mls @ 100 mls/hr IV ASDIR LARRY Insulin Aspart (Novolog Vial Sliding Scale -) 1 vial SQ ACHS [facility] PRN Reason: Protocol Last Admin: 08/05/16 12:06 Dose: Not Given Insulin Detemir (Levemir Vial) 16 units SQ HS [facility] Last Admin: 08/04/16 22:47 Dose: 16 units Ipratropium [place] (Atrovent 0.02% Nebulizer -) 1 amp NEB QIDR [facility] Last Admin: 08/05/16 11:55 Dose: 1 amp Mirtazapine (Remeron -) 30 mg PO HS [facility] Last Admin: 08/04/16 22:48 Dose: 30 mg Olanzapine (Zyprexa -) 5 mg GT HS [facility] Last Admin: 08/04/16 22:48 Dose: 5 mg Ranitidine HCl (Zantac Oral Solution -) 150 mg GT DAILY [facility] Last Admin: 08/05/16 10:21 Dose: 150 mg Tamsulosin HCl (Flomax -) 0.8 mg PO DAILY@0830 [facility] Last Admin: 08/05/16 10:21 Dose: 0.8 mg A/P 80 year old woman with PMhx of Multiple GIANNI's, Hypernatremia, Hypertension, DM, HLD, GERD, PVD s/p b/l BKA who presented from [place] with Fever and found to have Na of 150 and Cr of 1.1. #Hypernatremia Serum Na worsened this am and pt with relative hypotension Increase IVF rate to 100cc per hour #GIANNI on CKD Likely from volume depletion + sepsis/renal hypoperfusion renal function improving #Fever/Sacral Decubitis/Suspected UTI f/u cultures Abx as per primary/ID #Hypophosphatemia given Neutra phos via GT trend phos daily Thank you Vahid Manzano DO
--- NOTE | 2016-08-05 15:21 | PN ---
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, Physician Chief Complaint: No acute distress NSVT History of Present Illness: This is a 80 year old female with a PMH of HTN, DM, HLD, GERD, CVA's, PVD with bilateral BKA's, COPD, history of DVT's, past episodes of sepsis secondary to UTI's, and h/o infected sacral decubs status post debridement. has feeding tube. An echocardiogram performed on 07/01/16 showed normal LV function with moderate aortic stenosis. [facility] with fever and found to have hypernatremia. Noted to have runs of nonsustained Ventricular tachycardia. 08/05/16 BP still low, cannot start beta blockers at this time. Continues to have NSSVT. - Current Medication List Current Medications: Active Medications Acetaminophen (Tylenol Oral Solution -) 650 mg GT Q6H PRN PRN Reason: FEVER OR PAIN Last Admin: 08/05/16 10:22 Dose: 650 mg Collagenase (Santyl -) 1 applic TP DAILY [facility] Last Admin: 08/04/16 10:44 Dose: 1 applic Enoxaparin Sodium (Lovenox -) 40 mg SQ BID [facility] Last Admin: 08/05/16 10:21 Dose: 40 mg Escitalopram Oxalate (Lexapro Oral Solution -) 10 mg GT DAILY [facility] Last Admin: 08/05/16 10:21 Dose: 10 mg Ertapenem 1 gm/ Sodium (Chloride) 50 mls @ 100 mls/hr IVPB DAILY [facility] PRN Reason: Protocol Last Admin: 08/05/16 10:21 Dose: 100 mls/hr Sodium Chloride (1/2 Normal Saline) 1,000 mls @ 100 mls/hr IV ASDIR [facility] Insulin Aspart (Novolog Vial Sliding Scale -) 1 vial SQ ACHS [facility] PRN Reason: Protocol Last Admin: 08/05/16 12:06 Dose: Not Given Insulin Detemir (Levemir Vial) 16 units SQ HS [facility] Last Admin: 08/04/16 22:47 Dose: 16 units Ipratropium [place] (Atrovent 0.02% Nebulizer -) 1 amp NEB QIDR [facility] Last Admin: 08/05/16 11:55 Dose: 1 amp Mirtazapine (Remeron -) 30 mg PO HS [facility] Last Admin: 08/04/16 22:48 Dose: 30 mg Olanzapine (Zyprexa -) 5 mg GT HS [facility] Last Admin: 08/04/16 22:48 Dose: 5 mg Potassium Phos/Sodium Phos (Phos-Nak Packet -) 1 packet GT TID [facility] Stop: 08/07/16 06:01 Ranitidine HCl (Zantac Oral Solution -) 150 mg GT DAILY [facility] Last Admin: 08/05/16 10:21 Dose: 150 mg Tamsulosin HCl (Flomax -) 0.8 mg PO DAILY@0830 [facility] Last Admin: 08/05/16 10:21 Dose: 0.8 mg - Objective Vital Signs: Vital Signs Temperature 99.1 F 08/05/16 15:00 Pulse Rate 92 H 08/05/16 15:00 Respiratory Rate 16 08/05/16 15:00 Blood Pressure 86/42 08/05/16 15:00 O2 Sat by Pulse Oximetry (%) 98 08/04/16 21:00 Constitutional: Yes: Other (Non verbal, no acute distress) Cardiovascular: Yes: Regular Rate and Rhythm, S1, S2 Respiratory: Yes: CTA Bilaterally Extremities: Yes: Other (Bilateral BKA's) Labs: CBC, BMP 08/05/16 05:35 08/05/16 05:35 INR, PTT INR 0.99 (0.82-1.09) 08/02/16 10:01 Assessment/Plan Non sustained ventricular tachycardia Treating conservatively Following electrolytes, especially K+ and Mg++ Given overall clinical status, would not be a candidate for invasive testing or advance therapies such as an AICD Given low BP, would not start Beta Blockers at this time. Will follow with you
--- NOTE | 2016-08-05 17:47 | PN ---
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, Physician History of Present Illness: Awake,confused Jorge temp and dropped BP earlier today Improved after IVF and blood transfusion Repeat BC sent - Current Medication List Current Medications: Active Medications Acetaminophen (Tylenol Oral Solution -) 650 mg GT Q6H PRN PRN Reason: FEVER OR PAIN Last Admin: 08/05/16 10:22 Dose: 650 mg Collagenase (Santyl -) 1 applic TP DAILY [facility] Last Admin: 08/05/16 12:00 Dose: Not Given Enoxaparin Sodium (Lovenox -) 40 mg SQ BID [facility] Last Admin: 08/05/16 10:21 Dose: 40 mg Escitalopram Oxalate (Lexapro Oral Solution -) 10 mg GT DAILY [facility] Last Admin: 08/05/16 10:21 Dose: 10 mg Ertapenem 1 gm/ Sodium (Chloride) 50 mls @ 100 mls/hr IVPB DAILY [facility] PRN Reason: Protocol Last Admin: 08/05/16 10:21 Dose: 100 mls/hr Sodium Chloride (1/2 Normal Saline) 1,000 mls @ 100 mls/hr IV ASDIR [facility] Last Admin: 08/05/16 14:30 Dose: Not Given Insulin Aspart (Novolog Vial Sliding Scale -) 1 vial SQ ACHS [facility] PRN Reason: Protocol Last Admin: 08/05/16 12:06 Dose: Not Given Insulin Detemir (Levemir Vial) 16 units SQ HS [facility] Last Admin: 08/04/16 22:47 Dose: 16 units Ipratropium [place] (Atrovent 0.02% Nebulizer -) 1 amp NEB QIDR [facility] Last Admin: 08/05/16 11:55 Dose: 1 amp Mirtazapine (Remeron -) 30 mg PO HS [facility] Last Admin: 08/04/16 22:48 Dose: 30 mg Olanzapine (Zyprexa -) 5 mg GT HS [facility] Last Admin: 08/04/16 22:48 Dose: 5 mg Potassium Phos/Sodium Phos (Phos-Nak Packet -) 1 packet GT TID [facility] Stop: 08/07/16 06:01 Ranitidine HCl (Zantac Oral Solution -) 150 mg GT DAILY [facility] Last Admin: 08/05/16 10:21 Dose: 150 mg Tamsulosin HCl (Flomax -) 0.8 mg PO DAILY@0830 [facility] Last Admin: 05/11/17 10:21 Dose: 0.8 mg - Objective Vital Signs: Vital Signs Temperature 99.1 F 08/05/16 15:00 Pulse Rate 92 H 08/05/16 15:00 Respiratory Rate 16 08/05/16 15:00 Blood Pressure 86/42 08/05/16 15:00 O2 Sat by Pulse Oximetry (%) 96 08/05/16 09:00 Constitutional: Yes: No Distress Eyes: Yes: Conjunctiva Clear Cardiovascular: Yes: Regular Rate and Rhythm, S1, S2 Respiratory: Yes: CTA Bilaterally Gastrointestinal: Yes: Normal Bowel Sounds, Soft. No: Tenderness Extremities: Yes: Other (S/P BKA bilaterally) Labs: CBC, BMP 08/05/16 05:35 08/05/16 05:35 INR, PTT INR 0.99 (0.82-1.09) 08/02/16 10:01 Assessment/Plan UTI/ Sepsis secondary to UTI Fever/ leukocytosis Stage IV sacral decubitus Hx ESBL OBS Continue ertapenem Repeat blood cultures Stat dose vancomycin Contact precautions
[2016-08-05] MEDS: NAPH,MB-DB/K PH,MBDB POWDER PACKET GT SCH ×2 (18:15→21:56)
[2016-08-05] MEDS ORDERED: MIRTAZAPINE 15 MG TABLET (FP) ONE (21:37)
[2016-08-05] MEDS: INSULIN DETEMIR 100 UNITS/ML MDV SQ SCH (21:53)
[2016-08-05] MEDS: OLANZapine 5 MG TABLET GT SCH (21:56)
[2016-08-05] MEDS: MIRTAZAPINE 30 MG TABLET (FP) PO SCH (21:56)
[2016-08-06] MEDS ORDERED: DEXTROSE 50%-WATER 50 ML VIAL IVPUSH ONE (05:23)
[2016-08-06] MEDS: NAPH,MB-DB/K PH,MBDB POWDER PACKET GT SCH ×3 (06:04→22:16)
[2016-08-06] MEDS: INSULIN SLIDING SCALE (NOVOLOG) 1 VIAL SQ SCH ×4 (06:04→22:16)
[2016-08-06] MEDS: IPRATROPIUM BR 0.02% 0.5 MG/2.5 ML VIAL.NEB. NEB SCH ×4 (06:38→23:39)
[2016-08-06 09:25] LABS: BASOPHIL 0.3 % (0-2.0); EOSINOPHIL 1.1 % (0-4.5); MCHC 32.9 g/dl (32.0-36.0); MEAN CELL VOLUME 91.2 fl (80-96); MEAN PLT VOLUME 8.5 fl (7.5-11.1); NEUTROPHILS 70.2 % (42.8-82.8); PLATELET COUNT 375 K/MM3 (134-434); RDW 17.4 % (11.6-15.6); WHITE BLOOD COUNT 8.1 K/mm3 (4.0-10.0)
[2016-08-06 09:51] LABS: ALBUMIN 1.8 g/dl (3.4-5.0); ANION GAP 5 (8-16); CALCIUM 8.1 mg/dL (8.5-10.1); CO2 30 mmol/L (21-32); COCKROFT - GAULT 62.6025; CREATININE 0.6 mg/dL (0.55-1.02); GLUCOSE,RANDOM 111 mg/dL (74-106); MAGNESIUM 2.7 mg/dL (1.8-2.4); SGOT/AST 13 U/L (15-37); SGPT/ALT 13 U/L (12-78)
[2016-08-06 09:53] LABS: ALK PHOS 95 U/L (45-117); BILIRUBIN,TOTAL 0.5 mg/dL (0.2-1.0); TOT PROT 6.8 g/dl (6.4-8.2)
[2016-08-06] MEDS: RANITIDINE HCL 150 MG/10 ML UNIT-DOSE CUP GT SCH (10:24)
[2016-08-06] MEDS: ESCITALOPRAM OXALATE 5 MG/5 ML GT SCH (10:25)
[2016-08-06] MEDS: TAMSULOSIN HCL 0.4 MG CAP.ER.24H (FP) PO SCH (10:25)
[2016-08-06] MEDS: ENOXAPARIN NA (PORCINE) 40 MG/0.4 ML DISP.SYRIN SQ SCH ×2 (10:25→22:16)
[2016-08-06] MEDS: COLLAGENASE CLOSTRIDIUM HIST. 30 GRAMS TUBE TP SCH (10:25)
--- NOTE | 2016-08-06 12:12 | PN ---
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, Physician Chief Complaint: s/p 2 units PRBC History of Present Illness: in bed awake says she is ok responds to her name temp spike yesterday - Current Medication List Current Medications: Active Medications Acetaminophen (Tylenol Oral Solution -) 650 mg GT Q6H PRN PRN Reason: FEVER OR PAIN Last Admin: 08/05/16 10:22 Dose: 650 mg Collagenase (Santyl -) 1 applic TP DAILY [facility] Last Admin: 08/06/16 10:25 Dose: Not Given Enoxaparin Sodium (Lovenox -) 40 mg SQ BID [facility] Last Admin: 08/06/16 10:25 Dose: 40 mg Escitalopram Oxalate (Lexapro Oral Solution -) 10 mg GT DAILY [facility] Last Admin: 08/06/16 10:25 Dose: 10 mg Ertapenem 1 gm/ Sodium (Chloride) 50 mls @ 100 mls/hr IVPB DAILY [facility] PRN Reason: Protocol Last Admin: 08/05/16 10:21 Dose: 100 mls/hr Sodium Chloride (1/2 Normal Saline) 1,000 mls @ 100 mls/hr IV ASDIR [facility] Last Admin: 08/05/16 14:30 Dose: Not Given Insulin Aspart (Novolog Vial Sliding Scale -) 1 vial SQ ACHS [facility] PRN Reason: Protocol Last Admin: 08/06/16 06:04 Dose: Not Given Insulin Detemir (Levemir Vial) 16 units SQ HS [facility] Last Admin: 08/05/16 21:53 Dose: 16 units Ipratropium [place] (Atrovent 0.02% Nebulizer -) 1 amp NEB QIDR [facility] Last Admin: 08/06/16 06:38 Dose: 1 amp Mirtazapine (Remeron -) 30 mg PO HS [facility] Last Admin: 08/05/16 21:56 Dose: 30 mg Olanzapine (Zyprexa -) 5 mg GT HS [facility] Last Admin: 08/05/16 21:56 Dose: 5 mg Potassium Phos/Sodium Phos (Phos-Nak Packet -) 1 packet GT TID [facility] Stop: 08/07/16 06:01 Last Admin: 08/06/16 06:04 Dose: 1 packet Ranitidine HCl (Zantac Oral Solution -) 150 mg GT DAILY [facility] Last Admin: 08/06/16 10:24 Dose: 150 mg Tamsulosin HCl (Flomax -) 0.8 mg PO DAILY@0830 [facility] Last Admin: 08/06/16 10:25 Dose: 0.8 mg - Objective Vital Signs: Vital Signs Temperature 98.4 F 08/06/16 08:30 Pulse Rate 94 H 08/06/16 08:30 Respiratory Rate 16 08/06/16 08:30 Blood Pressure 122/58 08/06/16 08:30 O2 Sat by Pulse Oximetry (%) 100 08/05/16 21:00 Constitutional: Yes: Calm, Thin Cardiovascular: Yes: Regular Rate and Rhythm, S1, S2 Respiratory: Yes: CTA Bilaterally Gastrointestinal: Yes: Normal Bowel Sounds, Soft, Other (g tube) Extremities: Yes: Other (b/l BKA) Wound/Incision: Yes: Other (wound vac) Labs: CBC, BMP 08/06/16 09:05 08/06/16 09:05 INR, PTT INR 0.99 (0.82-1.09) 08/02/16 10:01 Problem List - Problems (1) UTI (urinary tract infection) Assessment/Plan: ertrapenem ESBL contact isolation Code(s): N39.0 - URINARY TRACT INFECTION, SITE NOT SPECIFIED Qualifiers: Qualified Code(s): N39.0 - Urinary tract infection, site not specified (2) ARF (acute renal failure) Assessment/Plan: improved Code(s): N17.9 - ACUTE KIDNEY FAILURE, UNSPECIFIED (3) Decubitus ulcer Assessment/Plan: wound care team on board wound vac Code(s): L89.90 - PRESSURE ULCER OF UNSPECIFIED SITE, UNSPECIFIED STAGE (4) Dementia Assessment/Plan: zyprexa nameda remeron Code(s): F03.90 - UNSPECIFIED DEMENTIA WITHOUT BEHAVIORAL DISTURBANCE (5) Hypernatremia Assessment/Plan: ivf monitopr na Code(s): E87.0 - HYPEROSMOLALITY AND HYPERNATREMIA Assessment/Plan lovenox for DVT DM bgm noted dec the insulin dose
[2016-08-06] MEDS: ERTAPENEM SODIUM 1 GM in SODIUM CHLORIDE 50 ML IVPB SCH (12:23)
--- NOTE | 2016-08-06 12:40 | PN ---
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, Physician History of Present Illness: Awake, confused Temps improved- low grade BP improved Urine c/s CRE Blood c/s no growth - Current Medication List Current Medications: Active Medications Acetaminophen (Tylenol Oral Solution -) 650 mg GT Q6H PRN PRN Reason: FEVER OR PAIN Last Admin: 08/05/16 10:22 Dose: 650 mg Collagenase (Santyl -) 1 applic TP DAILY [facility] Last Admin: 08/06/16 10:25 Dose: Not Given Enoxaparin Sodium (Lovenox -) 40 mg SQ BID [facility] Last Admin: 08/06/16 10:25 Dose: 40 mg Escitalopram Oxalate (Lexapro Oral Solution -) 10 mg GT DAILY [facility] Last Admin: 08/06/16 10:25 Dose: 10 mg Ertapenem 1 gm/ Sodium (Chloride) 50 mls @ 100 mls/hr IVPB DAILY [facility] PRN Reason: Protocol Last Admin: 08/05/16 10:21 Dose: 100 mls/hr Sodium Chloride (1/2 Normal Saline) 1,000 mls @ 100 mls/hr IV ASDIR [facility] Last Admin: 08/05/16 14:30 Dose: Not Given Insulin Aspart (Novolog Vial Sliding Scale -) 1 vial SQ ACHS [facility] PRN Reason: Protocol Last Admin: 08/06/16 06:04 Dose: Not Given Insulin Detemir (Levemir Vial) 12 units SQ HS [facility] Ipratropium [place] (Atrovent 0.02% Nebulizer -) 1 amp NEB QIDR [facility] Last Admin: 08/06/16 11:45 Dose: 1 amp Mirtazapine (Remeron -) 30 mg PO HS [facility] Last Admin: 08/05/16 21:56 Dose: 30 mg Olanzapine (Zyprexa -) 5 mg GT HS [facility] Last Admin: 08/05/16 21:56 Dose: 5 mg Potassium Phos/Sodium Phos (Phos-Nak Packet -) 1 packet GT TID [facility] Stop: 08/07/16 06:01 Last Admin: 08/06/16 06:04 Dose: 1 packet Ranitidine HCl (Zantac Oral Solution -) 150 mg GT DAILY [facility] Last Admin: 08/06/16 10:24 Dose: 150 mg Tamsulosin HCl (Flomax -) 0.8 mg PO DAILY@0830 [facility] Last Admin: 08/06/16 10:25 Dose: 0.8 mg - Objective Vital Signs: Vital Signs Temperature 98.4 F 08/06/16 08:30 Pulse Rate 94 H 08/06/16 08:30 Respiratory Rate 16 08/06/16 08:30 Blood Pressure 122/58 08/06/16 08:30 O2 Sat by Pulse Oximetry (%) 100 08/05/16 21:00 Constitutional: Yes: No Distress Eyes: Yes: Conjunctiva Clear Cardiovascular: Yes: Regular Rate and Rhythm, S1, S2 Respiratory: Yes: Diminished Gastrointestinal: Yes: Normal Bowel Sounds, Soft. No: Tenderness Extremities: Yes: Other (S/P bilateral BKA) Integumentary: Yes: Other (+ stage IV sacral decubitus ulcer) Labs: CBC, BMP 08/06/16 09:05 08/06/16 09:05 INR, PTT INR 0.99 (0.82-1.09) 08/02/16 10:01 Assessment/Plan UTI/ Sepsis secondary to UTI CRE Fever/ leukocytosis Stage IV sacral decubitus Hx ESBL OBS Continue ertapenem Clinically improved Repeat U/A, c/s Check repeat blood cultures Contact precautions
--- NOTE | 2016-08-06 13:46 | PN ---
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 (short form) - Note 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: Renal Follow up for hypernatermia and CKD Pt seen and examined at the bedside no overnight events wound vac in place Vital Signs Temperature 98.4 F 08/06/16 08:30 Pulse Rate 94 H 08/06/16 08:30 Respiratory Rate 16 08/06/16 08:30 Blood Pressure 122/58 08/06/16 08:30 O2 Sat by Pulse Oximetry (%) 100 08/05/16 21:00 Intake & Output 08/03/16 08/04/16 08/05/16 08/06/16 23:59 23:59 23:59 23:59 Intake Total 1270 3470 2720 1100 Output Total 100 Balance 1170 3470 2720 1100 Weight 110 lb 0.4 oz 113 lb 9.6 oz 115 lb Gen: NAD, awake and alert CVS: RRR, No M/R Lungs: CTA Abd: Soft NT/ND. Feeding tube in place Ext: No edema, b/l BKA CBC, BMP 08/06/16 09:05 08/06/16 09:05 Laboratory Tests 08/06/16 09:05 Calcium 8.1 L Phosphorus 4.0 D Magnesium 2.7 H Albumin 1.8 L Current Medications Acetaminophen (Tylenol Oral Solution -) 650 mg GT Q6H PRN PRN Reason: FEVER OR PAIN Last Admin: 08/05/16 10:22 Dose: 650 mg Collagenase (Santyl -) 1 applic TP DAILY [facility] Last Admin: 08/06/16 10:25 Dose: Not Given Enoxaparin Sodium (Lovenox -) 40 mg SQ BID [facility] Last Admin: 08/06/16 10:25 Dose: 40 mg Escitalopram Oxalate (Lexapro Oral Solution -) 10 mg GT DAILY [facility] Last Admin: 08/06/16 10:25 Dose: 10 mg Ertapenem 1 gm/ Sodium (Chloride) 50 mls @ 100 mls/hr IVPB DAILY [facility] PRN Reason: Protocol Last Admin: 08/06/16 12:23 Dose: 100 mls/hr Sodium Chloride (1/2 Normal Saline) 1,000 mls @ 100 mls/hr IV ASDIR [facility] Last Admin: 08/05/16 14:30 Dose: Not Given Insulin Aspart (Novolog Vial Sliding Scale -) 1 vial SQ ACHS [facility] PRN Reason: Protocol Last Admin: 08/06/16 12:38 Dose: Not Given Insulin Detemir (Levemir Vial) 12 units SQ HS [facility] Ipratropium [place] (Atrovent 0.02% Nebulizer -) 1 amp NEB QIDR [facility] Last Admin: 08/06/16 11:45 Dose: 1 amp Mirtazapine (Remeron -) 30 mg PO HS [facility] Last Admin: 08/05/16 21:56 Dose: 30 mg Olanzapine (Zyprexa -) 5 mg GT HS [facility] Last Admin: 08/05/16 21:56 Dose: 5 mg Potassium Phos/Sodium Phos (Phos-Nak Packet -) 1 packet GT TID [facility] Stop: 08/07/16 06:01 Last Admin: 08/06/16 06:04 Dose: 1 packet Ranitidine HCl (Zantac Oral Solution -) 150 mg GT DAILY [facility] Last Admin: 08/06/16 10:24 Dose: 150 mg Tamsulosin HCl (Flomax -) 0.8 mg PO DAILY@0830 [facility] Last Admin: 08/06/16 10:25 Dose: 0.8 mg A/P 80 year old woman with PMhx of Multiple GIANNI's, Hypernatremia, Hypertension, DM, HLD, GERD, PVD s/p b/l BKA who presented from [place] with Fever and found to have Na of 150 and Cr of 1.1. #Hypernatremia Serum Na improved BP also improved change IVF to 1/3 NS at 75 cc per hour #GIANNI on CKD Likely from volume depletion + sepsis/renal hypoperfusion renal function improving continue IVF #Fever/Sacral Decubitis/Suspected UTI f/u cultures Abx as per primary/ID wound vac in place #Hypophosphatemia given Neutra phos via GT trend phos daily Thank you Vahid Manzano DO
[2016-08-06] MEDS: DEXTROSE 5%-1/3 NS - 500 ML IV SCH (15:15)
--- NOTE | 2016-08-06 15:38 | PN ---
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, Physician Chief Complaint: No acute distress NSVT History of Present Illness: This is a 80 year old female with a PMH of HTN, DM, HLD, GERD, CVA's, PVD with bilateral BKA's, COPD, history of DVT's, past episodes of sepsis secondary to UTI's, and h/o infected sacral decubs status post debridement. has feeding tube. An echocardiogram performed on 07/01/16 showed normal LV function with moderate aortic stenosis. She [facility] now from the [facility] with fever and found to have hypernatremia. Noted to have runs of nonsustained Ventricular tachycardia. 08/06/16 BP now improved, can start low dose a beta leticia at this time. Continues to have runs of NSSVT. - Current Medication List Current Medications: Active Medications Acetaminophen (Tylenol Oral Solution -) 650 mg GT Q6H PRN PRN Reason: FEVER OR PAIN Last Admin: 08/05/16 10:22 Dose: 650 mg Collagenase (Santyl -) 1 applic TP DAILY [facility] Last Admin: 08/06/16 10:25 Dose: Not Given Enoxaparin Sodium (Lovenox -) 40 mg SQ BID [facility] Last Admin: 08/06/16 10:25 Dose: 40 mg Escitalopram Oxalate (Lexapro Oral Solution -) 10 mg GT DAILY [facility] Last Admin: 08/06/16 10:25 Dose: 10 mg Ertapenem 1 gm/ Sodium (Chloride) 50 mls @ 100 mls/hr IVPB DAILY [facility] PRN Reason: Protocol Last Admin: 08/06/16 12:23 Dose: 100 mls/hr Dextrose/Sodium Chloride (D5-1/3ns -) 500 mls @ 75 mls/hr IV ASDIR [facility] Insulin Aspart (Novolog Vial Sliding Scale -) 1 vial SQ ACHS [facility] PRN Reason: Protocol Last Admin: 08/06/16 12:38 Dose: Not Given Insulin Detemir (Levemir Vial) 12 units SQ HS [facility] Ipratropium [place] (Atrovent 0.02% Nebulizer -) 1 amp NEB QIDR [facility] Last Admin: 08/06/16 11:45 Dose: 1 amp Mirtazapine (Remeron -) 30 mg PO HS [facility] Last Admin: 08/05/16 21:56 Dose: 30 mg Olanzapine (Zyprexa -) 5 mg GT HS [facility] Last Admin: 08/05/16 21:56 Dose: 5 mg Potassium Phos/Sodium Phos (Phos-Nak Packet -) 1 packet GT TID [facility] Stop: 08/07/16 06:01 Last Admin: 08/06/16 06:04 Dose: 1 packet Ranitidine HCl (Zantac Oral Solution -) 150 mg GT DAILY [facility] Last Admin: 08/06/16 10:24 Dose: 150 mg Tamsulosin HCl (Flomax -) 0.8 mg PO DAILY@0830 [facility] Last Admin: 08/06/16 10:25 Dose: 0.8 mg - Objective Vital Signs: Vital Signs Temperature 98.8 F 08/06/16 14:42 Pulse Rate 99 H 08/06/16 14:42 Respiratory Rate 18 08/06/16 14:42 Blood Pressure 129/65 08/06/16 14:42 O2 Sat by Pulse Oximetry (%) 100 08/05/16 21:00 Constitutional: Yes: Other (Non verbal. Ill appearing, No distress.) Cardiovascular: Yes: Regular Rate and Rhythm, S1, S2 (1/6 HALLEY RUSB radiating to the carotids) Respiratory: Yes: CTA Bilaterally Gastrointestinal: Yes: Soft Extremities: Yes: Other (Bilateral BKA's) Neurological: Yes: Other (Arousable but lethargic) Labs: CBC, BMP 08/06/16 09:05 08/06/16 09:05 INR, PTT INR 0.99 (0.82-1.09) 08/02/16 10:01 Assessment/Plan Non sustained ventricular tachycardia Treating conservatively Following electrolytes, especially K+ and Mg++ Given overall clinical status, would not be a candidate for invasive testing or advance therapies such as an AICD BP now improved, can start low dose a beta leticia at this time such as metoprolol succinate 12.5 mg via GT Q 12 hours. The beta leticia can potentially reduce the episodes of NSSVT. Will follow with you
--- NOTE | 2016-08-06 16:06 | PN ---
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, Physician Chief Complaint: dementia limited ros,awake responding to verbal stim History of Present Illness: 80 year old female with a PMH of HTN, DM, HLD, GERD, CVA's, PVD with bilateral BKA's, COPD, history of DVT's, past episodes of sepsis secondary to UTI's, and h /o infected sacral decubs status post debridement. has feeding tube. sp hypoglycemia now rebounding hyperglycemia - Current Medication List Current Medications: Active Medications Acetaminophen (Tylenol Oral Solution -) 650 mg GT Q6H PRN PRN Reason: FEVER OR PAIN Last Admin: 08/05/16 10:22 Dose: 650 mg Collagenase (Santyl -) 1 applic TP DAILY [facility] Last Admin: 08/06/16 10:25 Dose: Not Given Enoxaparin Sodium (Lovenox -) 40 mg SQ BID [facility] Last Admin: 08/06/16 10:25 Dose: 40 mg Escitalopram Oxalate (Lexapro Oral Solution -) 10 mg GT DAILY [facility] Last Admin: 08/06/16 10:25 Dose: 10 mg Ertapenem 1 gm/ Sodium (Chloride) 50 mls @ 100 mls/hr IVPB DAILY [facility] PRN Reason: Protocol Last Admin: 08/06/16 12:23 Dose: 100 mls/hr Dextrose/Sodium Chloride (D5-1/3ns -) 500 mls @ 75 mls/hr IV ASDIR [facility] Insulin Aspart (Novolog Vial Sliding Scale -) 1 vial SQ ACHS [facility] PRN Reason: Protocol Last Admin: 08/06/16 12:38 Dose: Not Given Insulin Detemir (Levemir Vial) 10 units SQ HS [facility] Ipratropium [place] (Atrovent 0.02% Nebulizer -) 1 amp NEB QIDR [facility] Last Admin: 08/06/16 11:45 Dose: 1 amp Mirtazapine (Remeron -) 30 mg PO HS [facility] Last Admin: 08/05/16 21:56 Dose: 30 mg Olanzapine (Zyprexa -) 5 mg GT HS [facility] Last Admin: 08/05/16 21:56 Dose: 5 mg Potassium Phos/Sodium Phos (Phos-Nak Packet -) 1 packet GT TID [facility] Stop: 08/07/16 06:01 Last Admin: 08/06/16 06:04 Dose: 1 packet Ranitidine HCl (Zantac Oral Solution -) 150 mg GT DAILY [facility] Last Admin: 08/06/16 10:24 Dose: 150 mg Tamsulosin HCl (Flomax -) 0.8 mg PO DAILY@0830 [facility] Last Admin: 08/06/16 10:25 Dose: 0.8 mg - Objective Vital Signs: Vital Signs Temperature 98.8 F 08/06/16 14:42 Pulse Rate 99 H 08/06/16 14:42 Respiratory Rate 18 08/06/16 14:42 Blood Pressure 129/65 08/06/16 14:42 O2 Sat by Pulse Oximetry (%) 100 08/05/16 21:00 Constitutional: Yes: Calm Eyes: Yes: WNL HENT: Yes: WNL Neck: Yes: WNL Cardiovascular: Yes: Regular Rate and Rhythm Respiratory: Yes: CTA Bilaterally Gastrointestinal: Yes: Normal Bowel Sounds ...Rectal Exam: Yes: Deferred Genitourinary: Yes: WNL Breast(s): Yes: WNL Musculoskeletal: Yes: Joint Swelling, Muscle Weakness Extremities: Yes: WNL Integumentary: Yes: Pressure Ulcer Wound/Incision: Yes: Clean/Dry Neurological: Yes: Alert Labs: CBC, BMP 08/06/16 09:05 08/06/16 09:05 INR, PTT INR 0.99 (0.82-1.09) 08/02/16 10:01 Assessment/Plan Current Active Problems Severe sepsis (Acute) UTI (urinary tract infection) (Acute) iddm brittle likely nutrition related hypoglycemia Abnormal Lab Results 08/02/16 08/05/16 08/06/16 09:29 23:30 09:05 RDW 17.4 H Sodium Chloride Anion Gap BUN Random Glucose Calcium Magnesium AST Albumin Antibody Screen Positive H Crossmatch See Detail See Detail 08/06/16 09:05 RDW Sodium 147 H Chloride 112 H Anion Gap 5 L BUN 25 H Random Glucose 111 H Calcium 8.1 L Magnesium 2.7 H AST 13 L D Albumin 1.8 L Antibody Screen Crossmatch Laboratory Results - last 24 hr 08/02/16 08/05/16 08/05/16 09:29 18:12 21:51 WBC RBC Hgb Hct MCV MCHC RDW Plt Count MPV Neutrophils % Lymphocytes % Monocytes % Eosinophils % Basophils % Sodium Potassium Chloride Carbon Dioxide Anion Gap BUN Creatinine Creat Clearance w eGFR POC Glucometer 189 204 Random Glucose Calcium Phosphorus Magnesium Total Bilirubin AST ALT Alkaline Phosphatase Total Protein Albumin Blood Type Antibody Screen Antigen Identification Crossmatch See Detail 08/05/16 08/06/16 08/06/16 23:30 05:17 05:27 WBC RBC Hgb Hct MCV MCHC RDW Plt Count MPV Neutrophils % Lymphocytes % Monocytes % Eosinophils % Basophils % Sodium Potassium Chloride Carbon Dioxide Anion Gap BUN Creatinine Creat Clearance w eGFR POC Glucometer 42 44 Random Glucose Calcium Phosphorus Magnesium Total Bilirubin AST ALT Alkaline Phosphatase Total Protein Albumin Blood Type O POSITIVE Antibody Screen Positive H Antigen Identification E Antigen - NEGATIVE Crossmatch See Detail 08/06/16 08/06/16 08/06/16 05:39 09:05 09:05 WBC 8.1 RBC 3.81 D Hgb 11.4 D Hct 34.7 D MCV 91.2 MCHC 32.9 RDW 17.4 H Plt Count 375 MPV 8.5 Neutrophils % 70.2 Lymphocytes % 22.8 Monocytes % 5.6 Eosinophils % 1.1 Basophils % 0.3 Sodium 147 H Potassium 4.8 Chloride 112 H Carbon Dioxide 30 Anion Gap 5 L BUN 25 H Creatinine 0.6 Creat Clearance w eGFR > 60 POC Glucometer 185 Random Glucose 111 H Calcium 8.1 L Phosphorus 4.0 D Magnesium 2.7 H Total Bilirubin 0.5 D AST 13 L D ALT 13 D Alkaline Phosphatase 95 Total Protein 6.8 Albumin 1.8 L Blood Type Antibody Screen Antigen Identification Crossmatch 08/06/16 12:29 WBC RBC Hgb Hct MCV MCHC RDW Plt Count MPV Neutrophils % Lymphocytes % Monocytes % Eosinophils % Basophils % Sodium Potassium Chloride Carbon Dioxide Anion Gap BUN Creatinine Creat Clearance w eGFR POC Glucometer 160 Random Glucose Calcium Phosphorus Magnesium Total Bilirubin AST ALT Alkaline Phosphatase Total Protein Albumin Blood Type Antibody Screen Antigen Identification Crossmatch plan: conitnue bgm coverage as ordered levemir 10 units hs with cutoff ordered
[2016-08-06] MEDS: ACETAMINOPHEN 650 MG/20.3 ML ORAL SOLUTION (CUPS) GT PRN (16:31)
[2016-08-06 17:02] LABS: URINE APPEARANCE CLEAR; URINE BILIRUBIN NEGATIVE (NEGATIVE); URINE BLOOD NEGATIVE (NEGATIVE); URINE COLOR STRAW; URINE GLUCOSE (UA) NEGATIVE (NEGATIVE); URINE KETONE NEGATIVE (NEGATIVE); URINE NITRITE NEGATIVE (NEGATIVE); URINE PROTEIN NEGATIVE (NEGATIVE); URINE UROBILINOGEN NEGATIVE E.U./dl (0.2-1.0)
[2016-08-06 17:06] LABS: URINE LEUK ESTERASE 3+ (NEGATIVE)
[2016-08-06 17:36] LABS: URINE BACTERIA RARE /hpf (NONE SEEN); URINE MUCUS RARE; URINE RBC 1 /hpf (0-3); URINE WBC 101 /hpf (3-5)
[2016-08-06] MEDS ORDERED: INSULIN DETEMIR 100 UNITS/ML MDV SQ SCH (22:00)
[2016-08-06] MEDS ORDERED: INSULIN (NOVOLOG) ASPART 100 UNITS/ML 10ML VIAL ONE (22:05)
[2016-08-06] MEDS ORDERED: MIRTAZAPINE 15 MG TABLET (FP) ONE (22:05)
[2016-08-06] MEDS: INSULIN DETEMIR 100 UNITS/ML MDV SQ SCH (22:16)
[2016-08-06] MEDS: MIRTAZAPINE 30 MG TABLET (FP) PO SCH (22:16)
[2016-08-06] MEDS: OLANZapine 5 MG TABLET GT SCH (22:16)
[2016-08-07] MEDS: NAPH,MB-DB/K PH,MBDB POWDER PACKET GT SCH (06:11)
[2016-08-07] MEDS: INSULIN SLIDING SCALE (NOVOLOG) 1 VIAL SQ SCH ×4 (06:12→21:24)
[2016-08-07] MEDS: IPRATROPIUM BR 0.02% 0.5 MG/2.5 ML VIAL.NEB. NEB SCH ×4 (06:37→23:13)
[2016-08-07 08:30] LABS: MEAN CELL VOLUME 91.1 fl (80-96); MEAN PLT VOLUME 8.5 fl (7.5-11.1); PLATELET COUNT 370 K/MM3 (134-434); RDW 17.4 % (11.6-15.6); WHITE BLOOD COUNT 8.9 K/mm3 (4.0-10.0)
--- NOTE | 2016-08-07 08:51 | PN ---
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, Physician Chief Complaint: No events. Overnight. Poorly responsive Telem No further NSVT - Current Medication List Current Medications: Active Medications Acetaminophen (Tylenol Oral Solution -) 650 mg GT Q6H PRN PRN Reason: FEVER OR PAIN Last Admin: 08/06/16 16:31 Dose: 650 mg Collagenase (Santyl -) 1 applic TP DAILY [facility] Last Admin: 08/06/16 10:25 Dose: Not Given Enoxaparin Sodium (Lovenox -) 40 mg SQ BID [facility] Last Admin: 08/06/16 22:16 Dose: 40 mg Escitalopram Oxalate (Lexapro Oral Solution -) 10 mg GT DAILY [facility] Last Admin: 08/06/16 10:25 Dose: 10 mg Ertapenem 1 gm/ Sodium (Chloride) 50 mls @ 100 mls/hr IVPB DAILY [facility] PRN Reason: Protocol Last Admin: 08/06/16 12:23 Dose: 100 mls/hr Dextrose/Sodium Chloride (D5-1/3ns -) 500 mls @ 75 mls/hr IV ASDIR [facility] Last Admin: 08/06/16 15:15 Dose: 75 mls/hr Insulin Aspart (Novolog Vial Sliding Scale -) 1 vial SQ ACHS [facility] PRN Reason: Protocol Last Admin: 08/07/16 06:12 Dose: Not Given Insulin Detemir (Levemir Vial) 10 units SQ HS [facility] Last Admin: 08/06/16 22:16 Dose: 10 units Ipratropium [place] (Atrovent 0.02% Nebulizer -) 1 amp NEB QIDR [facility] Last Admin: 08/07/16 06:37 Dose: 1 amp Mirtazapine (Remeron -) 30 mg PO HS [facility] Last Admin: 08/06/16 22:16 Dose: 30 mg Olanzapine (Zyprexa -) 5 mg GT HS [facility] Last Admin: 08/06/16 22:16 Dose: 5 mg Ranitidine HCl (Zantac Oral Solution -) 150 mg GT DAILY [facility] Last Admin: 08/06/16 10:24 Dose: 150 mg Tamsulosin HCl (Flomax -) 0.8 mg PO DAILY@0830 [facility] Last Admin: 08/06/16 10:25 Dose: 0.8 mg - Objective Vital Signs: Vital Signs Temperature 99.9 F H 08/07/16 03:07 Pulse Rate 95 H 08/07/16 03:07 Respiratory Rate 18 08/07/16 03:07 Blood Pressure 107/60 08/07/16 03:07 O2 Sat by Pulse Oximetry (%) 96 08/06/16 21:00 Constitutional: Yes: Cachectic HENT: Yes: WNL Cardiovascular: Yes: Regular Rate and Rhythm, Murmur Respiratory: Yes: CTA Bilaterally Gastrointestinal: Yes: Normal Bowel Sounds Edema: No Labs: CBC, BMP 08/07/16 05:40 Assessment/Plan 80 F OMS with Moderate . Her heart murmur and prior echo suggested more significant stenosis. She is admitted with dehydration and NSVT. Her significant dementia precludes invasive cardiac testing. Low dose beta leticia therapy is advised. Telemetry can be stopped. Will see as needed
[2016-08-07 09:08] LABS: ALBUMIN 1.7 g/dl (3.4-5.0); ALK PHOS 106 U/L (45-117); ANION GAP 9 (8-16); BILIRUBIN,TOTAL 0.5 mg/dL (0.2-1.0); CALCIUM 8.2 mg/dL (8.5-10.1); CO2 27 mmol/L (21-32); CREATININE 0.5 mg/dL (0.55-1.02); GLUCOSE,RANDOM 108 mg/dL (74-106); MAGNESIUM 2.4 mg/dL (1.8-2.4); PHOSPHOROUS 3.3 mg/dL (2.5-4.9); SGOT/AST 13 U/L (15-37); SGPT/ALT 13 U/L (12-78); TOT PROT 6.6 g/dl (6.4-8.2)
[2016-08-07 09:54] LABS: URINE APPEARANCE SLCLOUDY; URINE BILIRUBIN NEGATIVE (NEGATIVE); URINE BLOOD NEGATIVE (NEGATIVE); URINE COLOR LTYELLOW; URINE GLUCOSE (UA) 1+ (NEGATIVE); URINE KETONE NEGATIVE (NEGATIVE); URINE NITRITE NEGATIVE (NEGATIVE); URINE PROTEIN NEGATIVE (NEGATIVE); URINE UROBILINOGEN NEGATIVE E.U./dl (0.2-1.0)
[2016-08-07] MEDS ORDERED: PT OWN MED DRAWER 7, Y5N ONE (10:27)
[2016-08-07] MEDS: ERTAPENEM SODIUM 1 GM in SODIUM CHLORIDE 50 ML IVPB SCH (10:31)
[2016-08-07] MEDS: DEXTROSE 5%-1/3 NS - 500 ML IV SCH ×2 (10:31→13:12)
[2016-08-07] MEDS: ENOXAPARIN NA (PORCINE) 40 MG/0.4 ML DISP.SYRIN SQ SCH ×2 (10:34→21:24)
[2016-08-07] MEDS: ESCITALOPRAM OXALATE 5 MG/5 ML GT SCH (10:34)
[2016-08-07] MEDS: TAMSULOSIN HCL 0.4 MG CAP.ER.24H (FP) PO SCH (10:34)
[2016-08-07] MEDS: RANITIDINE HCL 150 MG/10 ML UNIT-DOSE CUP GT SCH (10:35)
[2016-08-07 10:39] LABS: URINE LEUK ESTERASE TRACE (NEGATIVE)
[2016-08-07 10:43] LABS: URINE RBC 1 /hpf (0-3); URINE WBC 27 /hpf (3-5)
--- NOTE | 2016-08-07 11:52 | PN ---
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 (short form) - Note 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: Renal Follow up for hypernatermia and CKD Pt seen and examined at the bedside no overnight events on GT tube feeds and IVF Vital Signs Temperature 99.9 F H 08/07/16 03:07 Pulse Rate 95 H 08/07/16 03:07 Respiratory Rate 18 08/07/16 03:07 Blood Pressure 107/60 08/07/16 03:07 O2 Sat by Pulse Oximetry (%) 96 08/06/16 21:00 Intake & Output 08/04/16 08/05/16 08/06/16 08/07/16 23:59 23:59 23:59 23:59 Intake Total 3470 2720 2060 1940 Output Total 750 900 Balance 3470 2720 1310 1040 Weight 113 lb 9.6 oz 115 lb 112 lb 6.4 oz Gen: NAD, awake and alert CVS: RRR, No M/R Lungs: CTA Abd: Soft NT/ND. Feeding tube in place Ext: No edema, b/l BKA CBC, BMP 08/07/16 05:40 08/07/16 05:40 Laboratory Tests 08/07/16 05:40 Calcium 8.2 L Phosphorus 3.3 Magnesium 2.4 Albumin 1.7 L Current Medications Acetaminophen (Tylenol Oral Solution -) 650 mg GT Q6H PRN PRN Reason: FEVER OR PAIN Last Admin: 08/06/16 16:31 Dose: 650 mg Collagenase (Santyl -) 1 applic TP DAILY [facility] Last Admin: 08/06/16 10:25 Dose: Not Given Enoxaparin Sodium (Lovenox -) 40 mg SQ BID [facility] Last Admin: 08/07/16 10:34 Dose: 40 mg Escitalopram Oxalate (Lexapro Oral Solution -) 10 mg GT DAILY [facility] Last Admin: 08/07/16 10:34 Dose: 10 mg Ertapenem 1 gm/ Sodium (Chloride) 50 mls @ 100 mls/hr IVPB DAILY [facility] PRN Reason: Protocol Last Admin: 08/07/16 10:31 Dose: 100 mls/hr Dextrose/Sodium Chloride (D5-1/3ns -) 500 mls @ 75 mls/hr IV ASDIR [facility] Last Admin: 08/07/16 10:31 Dose: 75 mls/hr Insulin Aspart (Novolog Vial Sliding Scale -) 1 vial SQ ACHS [facility] PRN Reason: Protocol Last Admin: 08/07/16 11:11 Dose: Not Given Insulin Detemir (Levemir Vial) 10 units SQ HS [facility] Last Admin: 08/06/16 22:16 Dose: 10 units Ipratropium [place] (Atrovent 0.02% Nebulizer -) 1 amp NEB QIDR [facility] Last Admin: 08/07/16 06:37 Dose: 1 amp Mirtazapine (Remeron -) 30 mg PO HS [facility] Last Admin: 08/06/16 22:16 Dose: 30 mg Olanzapine (Zyprexa -) 5 mg GT HS [facility] Last Admin: 08/06/16 22:16 Dose: 5 mg Ranitidine HCl (Zantac Oral Solution -) 150 mg GT DAILY [facility] Last Admin: 08/07/16 10:35 Dose: 150 mg Tamsulosin HCl (Flomax -) 0.8 mg PO DAILY@0830 [facility] Last Admin: 08/07/16 10:34 Dose: 0.8 mg A/P 80 year old woman with PMhx of Multiple GIANNI's, Hypernatremia, Hypertension, DM, HLD, GERD, PVD s/p b/l BKA who presented from ID with Fever and found to have Na of 150 and Cr of 1.1. #Hypernatremia Serum Na now improved to normal limits increase free water flushes with G-tube feeds to 60cc Qhour decrease D51/3 NS to 50cc per hour Trend Na daily #Mild Hyperkalemia Related to K-phos? no medications on board that will increase k now pt with normal renal function no acute intervention warrented check K in the AM #GIANNI on CKD Likely from volume depletion + sepsis/renal hypoperfusion renal function now improved to baseline #Fever/Sacral Decubitis/Suspected UTI f/u cultures Abx as per primary/ID wound vac in place #Hypophosphatemia phos now improved trend daily Thank you Vahid Manzano DO
--- NOTE | 2016-08-07 13:43 | PN ---
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, Physician History of Present Illness: awake but confused no acute distress low grade temp BP improved - Current Medication List Current Medications: Active Medications Acetaminophen (Tylenol Oral Solution -) 650 mg GT Q6H PRN PRN Reason: FEVER OR PAIN Last Admin: 08/06/16 16:31 Dose: 650 mg Collagenase (Santyl -) 1 applic TP DAILY [facility] Last Admin: 08/06/16 10:25 Dose: Not Given Enoxaparin Sodium (Lovenox -) 40 mg SQ BID [facility] Last Admin: 08/07/16 10:34 Dose: 40 mg Escitalopram Oxalate (Lexapro Oral Solution -) 10 mg GT DAILY [facility] Last Admin: 08/07/16 10:34 Dose: 10 mg Ertapenem 1 gm/ Sodium (Chloride) 50 mls @ 100 mls/hr IVPB DAILY [facility] PRN Reason: Protocol Last Admin: 08/07/16 10:31 Dose: 100 mls/hr Dextrose/Sodium Chloride (D5-1/3ns -) 500 mls @ 50 mls/hr IV ASDIR [facility] Last Admin: 08/07/16 13:12 Dose: 50 mls/hr Insulin Aspart (Novolog Vial Sliding Scale -) 1 vial SQ ACHS [facility] PRN Reason: Protocol Last Admin: 08/07/16 11:11 Dose: Not Given Insulin Detemir (Levemir Vial) 10 units SQ HS [facility] Last Admin: 08/06/16 22:16 Dose: 10 units Ipratropium [place] (Atrovent 0.02% Nebulizer -) 1 amp NEB QIDR [facility] Last Admin: 08/07/16 11:54 Dose: 1 amp Mirtazapine (Remeron -) 30 mg PO HS [facility] Last Admin: 08/06/16 22:16 Dose: 30 mg Olanzapine (Zyprexa -) 5 mg GT HS [facility] Last Admin: 08/06/16 22:16 Dose: 5 mg Ranitidine HCl (Zantac Oral Solution -) 150 mg GT DAILY [facility] Last Admin: 08/07/16 10:35 Dose: 150 mg Tamsulosin HCl (Flomax -) 0.8 mg PO DAILY@0830 [facility] Last Admin: 08/07/16 10:34 Dose: 0.8 mg - Objective Vital Signs: Vital Signs Temperature 98.5 F 08/07/16 09:00 Pulse Rate 96 H 08/07/16 11:53 Respiratory Rate 20 08/07/16 09:00 Blood Pressure 147/74 08/07/16 09:00 O2 Sat by Pulse Oximetry (%) 96 08/07/16 11:53 Constitutional: Yes: No Distress Eyes: Yes: Conjunctiva Clear Cardiovascular: Yes: Regular Rate and Rhythm, S1, S2 Respiratory: Yes: Diminished Gastrointestinal: Yes: Normal Bowel Sounds, Soft Extremities: Yes: Other (S/P bilateral BKA) Labs: CBC, BMP 08/07/16 05:40 INR, PTT INR 0.99 (0.82-1.09) 08/02/16 10:01 Assessment/Plan UTI/ Sepsis secondary to UTI 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
[2016-08-07 13:51] LABS: CALCIUM 8.3 mg/dL (8.5-10.1); COCKROFT - GAULT 61.1915; CREATININE 0.6 mg/dL (0.55-1.02)
--- NOTE | 2016-08-07 14:50 | PN ---
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, Physician Chief Complaint: AWAKE NON-VERBAL APHASIA NO DISTRESS - Current Medication List Current Medications: Active Medications Acetaminophen (Tylenol Oral Solution -) 650 mg GT Q6H PRN PRN Reason: FEVER OR PAIN Last Admin: 08/06/16 16:31 Dose: 650 mg Collagenase (Santyl -) 1 applic TP DAILY [facility] Last Admin: 08/06/16 10:25 Dose: Not Given Enoxaparin Sodium (Lovenox -) 40 mg SQ BID [facility] Last Admin: 08/07/16 10:34 Dose: 40 mg Escitalopram Oxalate (Lexapro Oral Solution -) 10 mg GT DAILY [facility] Last Admin: 08/07/16 10:34 Dose: 10 mg Ertapenem 1 gm/ Sodium (Chloride) 50 mls @ 100 mls/hr IVPB DAILY [facility] PRN Reason: Protocol Last Admin: 08/07/16 10:31 Dose: 100 mls/hr Dextrose/Sodium Chloride (D5-1/3ns -) 500 mls @ 50 mls/hr IV ASDIR [facility] Last Admin: 08/07/16 13:12 Dose: 50 mls/hr Insulin Aspart (Novolog Vial Sliding Scale -) 1 vial SQ ACHS [facility] PRN Reason: Protocol Last Admin: 08/07/16 11:11 Dose: Not Given Insulin Detemir (Levemir Vial) 10 units SQ [facility] Last Admin: 08/06/16 22:16 Dose: 10 units Ipratropium [place] (Atrovent 0.02% Nebulizer -) 1 amp NEB QIDR [facility] Last Admin: 08/07/16 11:54 Dose: 1 amp Mirtazapine (Remeron -) 30 mg PO HS [facility] Last Admin: 08/06/16 22:16 Dose: 30 mg Olanzapine (Zyprexa -) 5 mg GT HS [facility] Last Admin: 08/06/16 22:16 Dose: 5 mg Ranitidine HCl (Zantac Oral Solution -) 150 mg GT DAILY [facility] Last Admin: 08/07/16 10:35 Dose: 150 mg Tamsulosin HCl (Flomax -) 0.8 mg PO DAILY@0830 [facility] Last Admin: 08/07/16 10:34 Dose: 0.8 mg - Objective Vital Signs: Vital Signs Temperature 98.8 F 08/07/16 14:23 Pulse Rate 98 H 08/07/16 14:23 Respiratory Rate 20 08/07/16 14:23 Blood Pressure 134/67 08/07/16 14:23 O2 Sat by Pulse Oximetry (%) 96 08/07/16 11:53 Constitutional: Yes: No Distress Eyes: Yes: WNL HENT: Yes: WNL Neck: Yes: WNL Cardiovascular: Yes: WNL Respiratory: Yes: WNL Gastrointestinal: Yes: WNL Genitourinary: Yes: Other Musculoskeletal: Yes: Muscle Weakness Extremities: Yes: Amputation, Deformity Edema: No Wound/Incision: Yes: Clean/Dry Neurological: Yes: Pre-Existing Deficit Psychiatric: Yes: Other Labs: CBC, BMP 08/07/16 05:40 08/07/16 13:02 INR, PTT INR 0.99 (0.82-1.09) 08/02/16 10:01 Assessment/Plan [facility] REMOVED CAN STRAIGHT CATHETER NEEDED IV ABX ERTAPENEM CONTINUE MONITOR ON TELEMETRY ISOLATION ROOM
[2016-08-07] MEDS: COLLAGENASE CLOSTRIDIUM HIST. 30 GRAMS TUBE TP SCH (15:09)
[2016-08-07 15:12] LABS: PLATELET COMMENT2 NO CLOTTING DETECTED; PLATELET ESTIMATE ADEQUATE (NORMAL)
[2016-08-07 15:13] LABS: ANISOCYTOSIS 1+; HYPOCHROMIA 1+
[2016-08-07] MEDS ORDERED: INSULIN REGULAR HUMAN 100 UNITS/ML *VIAL IVPUSH ONE (15:15)
[2016-08-07] MEDS ORDERED: DEXTROSE 50%-WATER 50 ML VIAL IVPUSH ONE (15:15)
[2016-08-07] MEDS: ACETAMINOPHEN 650 MG/20.3 ML ORAL SOLUTION (CUPS) GT PRN (15:54)
[2016-08-07] MEDS ORDERED: MIRTAZAPINE 15 MG TABLET (FP) ONE (21:07)
[2016-08-07] MEDS: INSULIN DETEMIR 100 UNITS/ML MDV SQ SCH (21:23)
[2016-08-07] MEDS: MIRTAZAPINE 30 MG TABLET (FP) PO SCH (21:24)
[2016-08-07] MEDS: OLANZapine 5 MG TABLET GT SCH (21:24)
[2016-08-08] MEDS: ACETAMINOPHEN 650 MG/20.3 ML ORAL SOLUTION (CUPS) GT PRN ×2 (02:30→09:05)
[2016-08-08] MEDS: INSULIN SLIDING SCALE (NOVOLOG) 1 VIAL SQ SCH ×4 (06:04→22:29)
[2016-08-08 08:33] LABS: BASOPHIL 0.3 % (0-2.0); MCH 30.4 pg (25.7-33.7); MCHC 33.2 g/dl (32.0-36.0); MEAN CELL VOLUME 91.6 fl (80-96); MEAN PLT VOLUME 8.4 fl (7.5-11.1); NEUTROPHILS 55.9 % (42.8-82.8); PLATELET COUNT 326 K/MM3 (134-434); RDW 17.7 % (11.6-15.6); WHITE BLOOD COUNT 11.7 K/mm3 (4.0-10.0)
[2016-08-08] MEDS ORDERED: PT OWN MED DRAWER 7, Y5N ONE (08:52)
[2016-08-08 08:59] LABS: CALCIUM 8.2 mg/dL (8.5-10.1); COCKROFT - GAULT 61.1915; CREATININE 0.6 mg/dL (0.55-1.02); MAGNESIUM 2.2 mg/dL (1.8-2.4); PHOSPHOROUS 3.3 mg/dL (2.5-4.9)
[2016-08-08] MEDS: TAMSULOSIN HCL 0.4 MG CAP.ER.24H (FP) PO SCH (09:04)
[2016-08-08] MEDS: RANITIDINE HCL 150 MG/10 ML UNIT-DOSE CUP GT SCH (09:05)
[2016-08-08] MEDS: ENOXAPARIN NA (PORCINE) 40 MG/0.4 ML DISP.SYRIN SQ SCH ×2 (09:05→22:29)
[2016-08-08] MEDS: ESCITALOPRAM OXALATE 5 MG/5 ML GT SCH (09:06)
[2016-08-08] MEDS: COLLAGENASE CLOSTRIDIUM HIST. 30 GRAMS TUBE TP SCH (09:06)
--- NOTE | 2016-08-08 09:53 | PN ---
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, Physician History of Present Illness: Awake but confused. No acute distress Temp 101 noted WBC elevated BC (-) Wound c/s mixed organisms incl ESBL Urine c/s CRE - Current Medication List Current Medications: Active Medications Acetaminophen (Tylenol Oral Solution -) 650 mg GT Q6H PRN PRN Reason: FEVER OR PAIN Last Admin: 08/08/16 09:05 Dose: 650 mg Collagenase (Santyl -) 1 applic TP DAILY [facility] Last Admin: 08/08/16 09:06 Dose: Not Given Enoxaparin Sodium (Lovenox -) 40 mg SQ BID [facility] Last Admin: 08/08/16 09:05 Dose: 40 mg Escitalopram Oxalate (Lexapro Oral Solution -) 10 mg GT DAILY [facility] Last Admin: 08/08/16 09:06 Dose: 10 mg Ertapenem 1 gm/ Sodium (Chloride) 50 mls @ 100 mls/hr IVPB DAILY [facility] PRN Reason: Protocol Last Admin: 08/07/16 10:31 Dose: 100 mls/hr Dextrose/Sodium Chloride (D5-1/3ns -) 500 mls @ 50 mls/hr IV ASDIR [facility] Last Admin: 08/07/16 13:12 Dose: 50 mls/hr Insulin Aspart (Novolog Vial Sliding Scale -) 1 vial SQ ACHS [facility] PRN Reason: Protocol Last Admin: 08/08/16 06:04 Dose: Not Given Insulin Detemir (Levemir Vial) 10 units SQ HS [facility] Last Admin: 08/07/16 21:23 Dose: 10 units Ipratropium [place] (Atrovent 0.02% Nebulizer -) 1 amp NEB QIDR [facility] Last Admin: 08/07/16 23:13 Dose: 1 amp Mirtazapine (Remeron -) 30 mg PO HS [facility] Last Admin: 08/07/16 21:24 Dose: 30 mg Olanzapine (Zyprexa -) 5 mg GT HS [facility] Last Admin: 08/07/16 21:24 Dose: 5 mg Ranitidine HCl (Zantac Oral Solution -) 150 mg GT DAILY [facility] Last Admin: 08/08/16 09:05 Dose: 150 mg Tamsulosin HCl (Flomax -) 0.8 mg PO DAILY@0830 [facility] Last Admin: 08/08/16 09:04 Dose: 0.8 mg - Objective Vital Signs: Vital Signs Temperature 98.8 F 08/08/16 05:31 Pulse Rate 78 08/08/16 05:31 Respiratory Rate 20 08/08/16 05:31 Blood Pressure 145/68 08/08/16 05:31 O2 Sat by Pulse Oximetry (%) 96 08/07/16 21:00 Constitutional: Yes: No Distress Eyes: Yes: Conjunctiva Clear Cardiovascular: Yes: Regular Rate and Rhythm, Murmur, S1, S2 Respiratory: Yes: Diminished Gastrointestinal: Yes: Normal Bowel Sounds, Soft. No: Tenderness Extremities: Yes: Other (S/P bilateral BKA) Integumentary: Yes: Other (Stage IV sacral decubitus) Labs: CBC, BMP 08/08/16 05:55 08/08/16 05:55 INR, PTT INR 0.99 (0.82-1.09) 08/02/16 10:01 Assessment/Plan UTI/ Sepsis secondary to UTI v. 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
[2016-08-08] MEDS: ERTAPENEM SODIUM 1 GM in SODIUM CHLORIDE 50 ML IVPB SCH (10:57)
[2016-08-08] MEDS: IPRATROPIUM BR 0.02% 0.5 MG/2.5 ML VIAL.NEB. NEB SCH ×2 (11:26→17:33)
[2016-08-08] MEDS: VANCOMYCIN 1 GRAM (PRE-DOCKED) 250 ML IVPB SCH (12:32)
[2016-08-08] MEDS: DEXTROSE 5%-1/3 NS - 500 ML IV SCH (12:32)
--- NOTE | 2016-08-08 21:10 | PN ---
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, Physician Chief Complaint: AWAKE NON-VERBAL APHASIA NO DISTRESS - Current Medication List Current Medications: Active Medications Acetaminophen (Tylenol Oral Solution -) 650 mg GT Q6H PRN PRN Reason: FEVER OR PAIN Last Admin: 08/08/16 09:05 Dose: 650 mg Collagenase (Santyl -) 1 applic TP DAILY [facility] Last Admin: 08/08/16 09:06 Dose: Not Given Enoxaparin Sodium (Lovenox -) 40 mg SQ BID [facility] Last Admin: 08/08/16 09:05 Dose: 40 mg Escitalopram Oxalate (Lexapro Oral Solution -) 10 mg GT DAILY [facility] Last Admin: 08/08/16 09:06 Dose: 10 mg Ertapenem 1 gm/ Sodium (Chloride) 50 mls @ 100 mls/hr IVPB DAILY [facility] PRN Reason: Protocol Last Admin: 08/08/16 10:57 Dose: 100 mls/hr Dextrose/Sodium Chloride (D5-1/3ns -) 500 mls @ 50 mls/hr IV ASDIR [facility] Last Admin: 08/08/16 12:32 Dose: 50 mls/hr Vancomycin HCl (Vancomycin (Pre-Docked)) 250 mls @ 200 mls/hr IVPB DAILY@1000 [facility] Last Admin: 08/08/16 12:32 Dose: 200 mls/hr Insulin Aspart (Novolog Vial Sliding Scale -) 1 vial SQ ACHS [facility] PRN Reason: Protocol Last Admin: 08/08/16 18:38 Dose: 2 units Insulin Detemir (Levemir Vial) 10 units SQ [facility] Last Admin: 08/07/16 21:23 Dose: 10 units Ipratropium [place] (Atrovent 0.02% Nebulizer -) 1 amp NEB QIDR [facility] Last Admin: 08/08/16 17:33 Dose: 1 amp Mirtazapine (Remeron -) 30 mg PO [facility] Last Admin: 08/07/16 21:24 Dose: 30 mg Olanzapine (Zyprexa -) 5 mg GT HS [facility] Last Admin: 08/07/16 21:24 Dose: 5 mg Ranitidine HCl (Zantac Oral Solution -) 150 mg GT DAILY [facility] Last Admin: 08/08/16 09:05 Dose: 150 mg Tamsulosin HCl (Flomax -) 0.8 mg PO DAILY@0830 [facility] Last Admin: 08/08/16 09:04 Dose: 0.8 mg - Objective Vital Signs: Vital Signs Temperature 98.3 F 08/08/16 17:20 Pulse Rate 80 08/08/16 17:20 Respiratory Rate 18 08/08/16 17:20 Blood Pressure 149/80 08/08/16 17:20 O2 Sat by Pulse Oximetry (%) 98 08/08/16 11:26 Constitutional: Yes: No Distress Eyes: Yes: WNL HENT: Yes: WNL Neck: Yes: WNL Cardiovascular: Yes: WNL Respiratory: Yes: WNL Gastrointestinal: Yes: WNL Genitourinary: Yes: Incontinence Musculoskeletal: Yes: Muscle Weakness Extremities: Yes: Amputation, Deformity Peripheral Pulses WNL: Yes Integumentary: Yes: WNL Wound/Incision: Yes: Clean/Dry Neurological: Yes: Pre-Existing Deficit ...Motor Strength: LLE, RLE Psychiatric: Yes: WNL Labs: CBC, BMP 08/08/16 05:55 08/08/16 05:55 INR, PTT INR 0.99 (0.82-1.09) 08/02/16 10:01 Assessment/Plan [facility]WKINS REMOVED CAN STRAIGHT CATHETER NEEDED IV ABX ERTAPENEM CONTINUE MONITOR ON TELEMETRY ISOLATION ROOM
[2016-08-08] MEDS ORDERED: MIRTAZAPINE 15 MG TABLET (FP) ONE (21:58)
[2016-08-08] MEDS: INSULIN DETEMIR 100 UNITS/ML MDV SQ SCH (22:28)
[2016-08-08] MEDS: MIRTAZAPINE 30 MG TABLET (FP) PO SCH (22:30)
[2016-08-08] MEDS: OLANZapine 5 MG TABLET GT SCH (22:30)
[2016-08-09] MEDS: INSULIN SLIDING SCALE (NOVOLOG) 1 VIAL SQ SCH ×4 (06:37→22:08)
[2016-08-09] MEDS: IPRATROPIUM BR 0.02% 0.5 MG/2.5 ML VIAL.NEB. NEB SCH ×4 (06:47→18:30)
[2016-08-09 07:25] LABS: CALCIUM 8.7 mg/dL (8.5-10.1); COCKROFT - GAULT 61.1915; CREATININE 0.6 mg/dL (0.55-1.02); MAGNESIUM 2.3 mg/dL (1.8-2.4); PHOSPHOROUS 3.6 mg/dL (2.5-4.9)
--- NOTE | 2016-08-09 08:29 | PN ---
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, Physician History of Present Illness: 80yo Female patient with extensive medical history which includes HTN, DM, HLD, GERD bilateral BKA presents to ED via EMS from [facility] for evaluation of fever - Current Medication List Current Medications: Active Medications Acetaminophen (Tylenol Oral Solution -) 650 mg GT Q6H PRN PRN Reason: FEVER OR PAIN Last Admin: 08/08/16 09:05 Dose: 650 mg Collagenase (Santyl -) 1 applic TP DAILY [facility] Last Admin: 08/08/16 09:06 Dose: Not Given Enoxaparin Sodium (Lovenox -) 40 mg SQ BID [facility] Last Admin: 08/08/16 22:29 Dose: 40 mg Escitalopram Oxalate (Lexapro Oral Solution -) 10 mg GT DAILY [facility] Last Admin: 08/08/16 09:06 Dose: 10 mg Ertapenem 1 gm/ Sodium (Chloride) 50 mls @ 100 mls/hr IVPB DAILY [facility] PRN Reason: Protocol Last Admin: 08/08/16 10:57 Dose: 100 mls/hr Dextrose/Sodium Chloride (D5-1/3ns -) 500 mls @ 50 mls/hr IV ASDIR [facility] Last Admin: 08/08/16 12:32 Dose: 50 mls/hr Vancomycin HCl (Vancomycin (Pre-Docked)) 250 mls @ 200 mls/hr IVPB DAILY@1000 [facility] Last Admin: 08/08/16 12:32 Dose: 200 mls/hr Insulin Aspart (Novolog Vial Sliding Scale -) 1 vial SQ ACHS [facility] PRN Reason: Protocol Last Admin: 08/09/16 06:37 Dose: Not Given Insulin Detemir (Levemir Vial) 10 units SQ HS [facility] Last Admin: 08/08/16 22:28 Dose: 10 units Ipratropium [place] (Atrovent 0.02% Nebulizer -) 1 amp NEB QIDR [facility] Last Admin: 08/09/16 06:47 Dose: 1 amp Mirtazapine (Remeron -) 30 mg PO HS [facility] Last Admin: 08/08/16 22:30 Dose: 30 mg Olanzapine (Zyprexa -) 5 mg GT HS [facility] Last Admin: 08/08/16 22:30 Dose: 5 mg Ranitidine HCl (Zantac Oral Solution -) 150 mg GT DAILY [facility] Last Admin: 08/08/16 09:05 Dose: 150 mg Tamsulosin HCl (Flomax -) 0.8 mg PO DAILY@0830 [facility] Last Admin: 08/08/16 09:04 Dose: 0.8 mg - Objective Vital Signs: Vital Signs Temperature 99.0 F 08/09/16 06:35 Pulse Rate 90 08/09/16 06:35 Respiratory Rate 20 08/09/16 06:35 Blood Pressure 126/60 08/09/16 06:35 O2 Sat by Pulse Oximetry (%) 95 08/08/16 21:00 Cardiovascular: Yes: S1, S2 Respiratory: Yes: Regular, CTA Bilaterally Gastrointestinal: Yes: Normal Bowel Sounds, Soft, Other (PEG) Extremities: Yes: Amputation Labs: CBC, BMP 08/08/16 05:55 08/09/16 05:35 INR, PTT INR 0.99 (0.82-1.09) 08/02/16 10:01 Problem List - Problems (1) UTI (urinary tract infection) Code(s): N39.0 - URINARY TRACT INFECTION, SITE NOT SPECIFIED Qualifiers: Qualified Code(s): N39.0 - Urinary tract infection, site not specified (2) ARF (acute renal failure) Code(s): N17.9 - ACUTE KIDNEY FAILURE, UNSPECIFIED (3) Acute bilateral deep vein thrombosis (DVT) of femoral veins Code(s): I82.413 - ACUTE EMBOLISM AND THROMBOSIS OF FEMORAL VEIN, BILATERAL (4) Aortic stenosis Code(s): I35.0 - NONRHEUMATIC AORTIC (VALVE) STENOSIS Qualifiers: Qualified Code(s): I35.0 - Nonrheumatic aortic (valve) stenosis (5) Decubitus ulcer Code(s): L89.90 - PRESSURE ULCER OF UNSPECIFIED SITE, UNSPECIFIED STAGE (6) Fever Code(s): R50.9 - FEVER, UNSPECIFIED (7) Type 2 diabetes mellitus with other diabetic kidney complication Code(s): E11.29 - TYPE 2 DIABETES MELLITUS W [facility] DIABETIC KIDNEY COMPLICATION Assessment/Plan Problems (1) UTI (urinary tract infection) Assessment/Plan: ertrapenem ESBL contact isolation Code(s): N39.0 - URINARY TRACT INFECTION, SITE NOT SPECIFIED Qualifiers: Qualified Code(s): N39.0 - Urinary tract infection, site not specified (2) ARF (acute renal failure) Assessment/Plan: improved Code(s): N17.9 - ACUTE KIDNEY FAILURE, UNSPECIFIED (3) Decubitus ulcer Assessment/Plan: wound care team on board wound vac Code(s): L89.90 - PRESSURE ULCER OF UNSPECIFIED SITE, UNSPECIFIED STAGE (4) Dementia Assessment/Plan: zyprexa nameda remeron Code(s): F03.90 - UNSPECIFIED DEMENTIA WITHOUT BEHAVIORAL DISTURBANCE (5) Hypernatremia Assessment/Plan: ivf monitopr na Code(s): E87.0 - HYPEROSMOLALITY AND HYPERNATREMIA Assessment/Plan lovenox for DVT DM bgm noted dec the insulin dose
[2016-08-09] MEDS: TAMSULOSIN HCL 0.4 MG CAP.ER.24H (FP) PO SCH (08:40)
[2016-08-09] MEDS ORDERED: PT OWN MED DRAWER 7, Y5N ONE (09:25)
[2016-08-09] MEDS: ERTAPENEM SODIUM 1 GM in SODIUM CHLORIDE 50 ML IVPB SCH (09:27)
[2016-08-09] MEDS: COLLAGENASE CLOSTRIDIUM HIST. 30 GRAMS TUBE TP SCH (09:43)
[2016-08-09] MEDS: VANCOMYCIN 1 GRAM (PRE-DOCKED) 250 ML IVPB SCH (09:43)
[2016-08-09] MEDS: ENOXAPARIN NA (PORCINE) 40 MG/0.4 ML DISP.SYRIN SQ SCH ×2 (09:44→22:08)
[2016-08-09] MEDS: ESCITALOPRAM OXALATE 5 MG/5 ML GT SCH (09:44)
[2016-08-09] MEDS: RANITIDINE HCL 150 MG/10 ML UNIT-DOSE CUP GT SCH (09:45)
--- NOTE | 2016-08-09 10:42 | PN ---
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, Physician History of Present Illness: Recurrent temp noted Repeat blood c/s sent No acute distress Confused - Current Medication List Current Medications: Active Medications Acetaminophen (Tylenol Oral Solution -) 650 mg GT Q6H PRN PRN Reason: FEVER OR PAIN Last Admin: 08/08/16 09:05 Dose: 650 mg Collagenase (Santyl -) 1 applic TP DAILY [facility] Last Admin: 08/09/16 09:43 Dose: Not Given Enoxaparin Sodium (Lovenox -) 40 mg SQ BID [facility] Last Admin: 08/09/16 09:44 Dose: 40 mg Escitalopram Oxalate (Lexapro Oral Solution -) 10 mg GT DAILY [facility] Last Admin: 08/09/16 09:44 Dose: 10 mg Ertapenem 1 gm/ Sodium (Chloride) 50 mls @ 100 mls/hr IVPB DAILY [facility]S [facility] PRN Reason: Protocol Last Admin: 08/09/16 09:27 Dose: 100 mls/hr Dextrose/Sodium Chloride (D5-1/3ns -) 500 mls @ 50 mls/hr IV ASDIR [facility]S [facility] Last Admin: 08/08/16 12:32 Dose: 50 mls/hr Vancomycin HCl (Vancomycin (Pre-Docked)) 250 mls @ 200 mls/hr IVPB DAILY@1000 [facility] Last Admin: 08/09/16 09:43 Dose: 200 mls/hr Insulin Aspart (Novolog Vial Sliding Scale -) 1 vial SQ ACHS [facility] PRN Reason: Protocol Last Admin: 08/09/16 06:37 Dose: Not Given Insulin Detemir (Levemir Vial) 10 units SQ HS [facility] Last Admin: 08/08/16 22:28 Dose: 10 units Ipratropium [place] (Atrovent 0.02% Nebulizer -) 1 amp NEB QIDR [facility] Last Admin: 08/09/16 06:47 Dose: 1 amp Mirtazapine (Remeron -) 30 mg PO HS [facility] Last Admin: 08/08/16 22:30 Dose: 30 mg Olanzapine (Zyprexa -) 5 mg GT HS [facility] AT THE [facility] Last Admin: 08/08/16 22:30 Dose: 5 mg Ranitidine HCl (Zantac Oral Solution -) 150 mg GT DAILY COUNTS INCLUDE 234 BEDS AT THE [facility] Last Admin: 08/09/16 09:45 Dose: 150 mg Tamsulosin HCl (Flomax -) 0.8 mg PO DAILY@0830 COUNTS INCLUDE 234 BEDS AT THE [facility] Last Admin: 08/09/16 08:40 Dose: 0.8 mg - Objective Vital Signs: Vital Signs Temperature 99.0 F 08/09/16 06:35 Pulse Rate 90 08/09/16 06:35 Respiratory Rate 20 08/09/16 06:35 Blood Pressure 126/60 08/09/16 06:35 O2 Sat by Pulse Oximetry (%) 95 08/08/16 21:00 Constitutional: Yes: No Distress Eyes: Yes: Conjunctiva Clear Cardiovascular: Yes: Regular Rate and Rhythm, S1, S2 Respiratory: Yes: Diminished Gastrointestinal: Yes: Normal Bowel Sounds, Soft. No: Tenderness Extremities: Yes: Other (S/P BKA bilaterally) Integumentary: Yes: Other (+ sacral decubitus) Labs: CBC, BMP 08/08/16 05:55 08/09/16 05:35 INR, PTT INR 0.99 (0.82-1.09) 08/02/16 10:01 Assessment/Plan UTI/ Sepsis secondary to UTI v. 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
--- NOTE | 2016-08-09 11:53 | PN ---
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 (short form) - Note 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: Renal Follow up for hypernatermia and CKD Pt seen and examined at the bedside no overnight events on tube feeds and IVF + Fever this AM Vital Signs Temperature 99.0 F 08/09/16 06:35 Pulse Rate 90 08/09/16 06:35 Respiratory Rate 20 08/09/16 06:35 Blood Pressure 126/60 08/09/16 06:35 O2 Sat by Pulse Oximetry (%) 95 08/08/16 21:00 Intake & Output 08/06/16 08/07/16 08/08/16 08/09/16 23:59 23:59 23:59 23:59 Intake Total 0 3565 3640 2009 Output Total 750 2725 800 100 Balance 6230 995 0635 1910 Weight 115 lb 112 lb 6.4 oz Gen: NAD, awake and alert CVS: RRR, No M/R Lungs: CTA Abd: Soft NT/ND. Feeding tube in place Ext: No edema, b/l BKA CBC, BMP 08/08/16 05:55 08/09/16 05:35 Laboratory Tests 08/09/16 05:35 Calcium 8.7 Phosphorus 3.6 Magnesium 2.3 Current Medications Acetaminophen (Tylenol Oral Solution -) 650 mg GT Q6H PRN PRN Reason: FEVER OR PAIN Last Admin: 08/08/16 09:05 Dose: 650 mg Collagenase (Santyl -) 1 applic TP DAILY [facility] Last Admin: 08/09/16 09:43 Dose: Not Given Enoxaparin Sodium (Lovenox -) 40 mg SQ BID [facility] Last Admin: 08/09/16 09:44 Dose: 40 mg Escitalopram Oxalate (Lexapro Oral Solution -) 10 mg GT DAILY [facility] Last Admin: 08/09/16 09:44 Dose: 10 mg Ertapenem 1 gm/ Sodium (Chloride) 50 mls @ 100 mls/hr IVPB DAILY [facility] PRN Reason: Protocol Last Admin: 08/09/16 09:27 Dose: 100 mls/hr Vancomycin HCl (Vancomycin (Pre-Docked)) 250 mls @ 200 mls/hr IVPB DAILY@1000 [facility] Last Admin: 08/09/16 09:43 Dose: 200 mls/hr Insulin Aspart (Novolog Vial Sliding Scale -) 1 vial SQ ACHS [facility] PRN Reason: Protocol Last Admin: 08/09/16 06:37 Dose: Not Given Insulin Detemir (Levemir Vial) 10 units SQ HS [facility] Last Admin: 08/08/16 22:28 Dose: 10 units Ipratropium [place] (Atrovent 0.02% Nebulizer -) 1 amp NEB QIDR [facility] Last Admin: 08/09/16 06:47 Dose: 1 amp Mirtazapine (Remeron -) 30 mg PO HS [facility] Last Admin: 08/08/16 22:30 Dose: 30 mg Olanzapine (Zyprexa -) 5 mg GT HS [facility] Last Admin: 08/08/16 22:30 Dose: 5 mg Ranitidine HCl (Zantac Oral Solution -) 150 mg GT DAILY [facility] Last Admin: 08/09/16 09:45 Dose: 150 mg Tamsulosin HCl (Flomax -) 0.8 mg PO DAILY@0830 [facility] Last Admin: 08/09/16 08:40 Dose: 0.8 mg A/P 80 year old woman with PMhx of Multiple GIANNI's, Hypernatremia, Hypertension, DM, HLD, GERD, PVD s/p b/l BKA who [place] with Fever and found to have Na of 150 and Cr of 1.1. #Hypernatremia Serum Na now improved to normal will D/C IVF Increase free water with tube feeds for 24 hours #Mild Hyperkalemia will ask Nutrition to see pt to adjust for Low K tube feeds #GIANNI on CKD Likely from volume depletion + sepsis/renal hypoperfusion renal function now improved to baseline #Fever/Sacral Decubitis/Suspected UTI f/u cultures Abx as per primary/ID wound vac in place #Hypophosphatemia phos now improved trend daily Thank you Vahid Manzano DO
[2016-08-09] MEDS ORDERED: MIRTAZAPINE 15 MG TABLET (FP) ONE (21:40)
[2016-08-09] MEDS: INSULIN DETEMIR 100 UNITS/ML MDV SQ SCH (22:08)
[2016-08-09] MEDS: OLANZapine 5 MG TABLET GT SCH (22:08)
[2016-08-09] MEDS: MIRTAZAPINE 30 MG TABLET (FP) PO SCH (22:08)
[2016-08-10] MEDS: IPRATROPIUM BR 0.02% 0.5 MG/2.5 ML VIAL.NEB. NEB SCH ×5 (00:05→23:20)
[2016-08-10] MEDS: INSULIN SLIDING SCALE (NOVOLOG) 1 VIAL SQ SCH ×4 (05:59→22:12)
[2016-08-10 07:07] LABS: BASOPHIL 0.5 % (0-2.0); EOSINOPHIL 2.5 % (0-4.5); MCH 30.2 pg (25.7-33.7); MCHC 32.6 g/dl (32.0-36.0); MEAN CELL VOLUME 92.5 fl (80-96); MEAN PLT VOLUME 8.2 fl (7.5-11.1); NEUTROPHILS 57.4 % (42.8-82.8); PLATELET COUNT 347 K/MM3 (134-434); RDW 17.9 % (11.6-15.6); WHITE BLOOD COUNT 8.3 K/mm3 (4.0-10.0)
[2016-08-10 07:33] LABS: ALBUMIN 1.8 g/dl (3.4-5.0); ANION GAP 8 (8-16); CALCIUM 8.5 mg/dL (8.5-10.1); CO2 30 mmol/L (21-32); CREATININE 0.7 mg/dL (0.55-1.02); GLUCOSE,RANDOM 226 mg/dL (74-106); MAGNESIUM 2.3 mg/dL (1.8-2.4); PHOSPHOROUS 3.4 mg/dL (2.5-4.9); SGOT/AST 12 U/L (15-37); SGPT/ALT 12 U/L (12-78)
[2016-08-10 07:35] LABS: ALK PHOS 114 U/L (45-117); BILIRUBIN,TOTAL 0.6 mg/dL (0.2-1.0); TOT PROT 6.9 g/dl (6.4-8.2)
[2016-08-10] MEDS: TAMSULOSIN HCL 0.4 MG CAP.ER.24H (FP) PO SCH (07:42)
--- NOTE | 2016-08-10 08:11 | PN ---
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, Physician History of Present Illness: 80yo Female patient with extensive medical history which includes HTN, DM, HLD, GERD bilateral BKA presents to ED via EMS from [facility] for evaluation of fever - Current Medication List Current Medications: Active Medications Acetaminophen (Tylenol Oral Solution -) 650 mg GT Q6H PRN PRN Reason: FEVER OR PAIN Last Admin: 08/08/16 09:05 Dose: 650 mg Collagenase (Santyl -) 1 applic TP DAILY [facility] Last Admin: 08/09/16 09:43 Dose: Not Given Enoxaparin Sodium (Lovenox -) 40 mg SQ BID [facility] Last Admin: 08/09/16 22:08 Dose: 40 mg Escitalopram Oxalate (Lexapro Oral Solution -) 10 mg GT DAILY [facility] Last Admin: 08/09/16 09:44 Dose: 10 mg Ertapenem 1 gm/ Sodium (Chloride) 50 mls @ 100 mls/hr IVPB DAILY [facility] PRN Reason: Protocol Last Admin: 08/09/16 09:27 Dose: 100 mls/hr Vancomycin HCl (Vancomycin (Pre-Docked)) 250 mls @ 200 mls/hr IVPB DAILY@1000 [facility] Last Admin: 08/09/16 09:43 Dose: 200 mls/hr Insulin Aspart (Novolog Vial Sliding Scale -) 1 vial SQ ACHS [facility] PRN Reason: Protocol Last Admin: 08/10/16 05:59 Dose: 4 units Insulin Detemir (Levemir Vial) 10 units SQ HS [facility] Last Admin: 08/09/16 22:08 Dose: 10 units Ipratropium [place] (Atrovent 0.02% Nebulizer -) 1 amp NEB QIDR [facility] Last Admin: 08/10/16 06:24 Dose: 1 amp Mirtazapine (Remeron -) 30 mg PO HS [facility] Last Admin: 08/09/16 22:08 Dose: 30 mg Olanzapine (Zyprexa -) 5 mg GT HS [facility] Last Admin: 08/09/16 22:08 Dose: 5 mg Ranitidine HCl (Zantac Oral Solution -) 150 mg GT DAILY [facility] Last Admin: 08/09/16 09:45 Dose: 150 mg Tamsulosin HCl (Flomax -) 0.8 mg PO DAILY@0830 [facility] Last Admin: 08/10/16 07:42 Dose: 0.8 mg - Objective Vital Signs: Vital Signs Temperature 98.6 F 08/10/16 06:00 Pulse Rate 85 08/10/16 06:00 Respiratory Rate 22 08/10/16 06:00 Blood Pressure 112/56 08/10/16 06:00 O2 Sat by Pulse Oximetry (%) 98 08/09/16 21:00 Cardiovascular: Yes: S1, S2 Respiratory: Yes: Regular, CTA Bilaterally Gastrointestinal: Yes: Normal Bowel Sounds, Soft Extremities: Yes: Amputation Labs: CBC, BMP 08/10/16 05:35 08/10/16 05:35 INR, PTT INR 0.99 (0.82-1.09) 08/02/16 10:01 Problem List - Problems (1) UTI (urinary tract infection) Code(s): N39.0 - URINARY TRACT INFECTION, SITE NOT SPECIFIED Qualifiers: Qualified Code(s): N39.0 - Urinary tract infection, site not specified (2) ARF (acute renal failure) Code(s): N17.9 - ACUTE KIDNEY FAILURE, UNSPECIFIED (3) Acute bilateral deep vein thrombosis (DVT) of femoral veins Code(s): I82.413 - ACUTE EMBOLISM AND THROMBOSIS OF FEMORAL VEIN, BILATERAL (4) Aortic stenosis Code(s): I35.0 - NONRHEUMATIC AORTIC (VALVE) STENOSIS Qualifiers: Qualified Code(s): I35.0 - Nonrheumatic aortic (valve) stenosis (5) Decubitus ulcer Code(s): L89.90 - PRESSURE ULCER OF UNSPECIFIED SITE, UNSPECIFIED STAGE (6) Fever Code(s): R50.9 - FEVER, UNSPECIFIED (7) Type 2 diabetes mellitus with other diabetic kidney complication Code(s): E11.29 - TYPE 2 DIABETES MELLITUS W [facility] DIABETIC KIDNEY COMPLICATION Assessment/Plan Problems (1) UTI (urinary tract infection) Assessment/Plan: ertrapenem per id ESBL contact isolation Code(s): N39.0 - URINARY TRACT INFECTION, SITE NOT SPECIFIED Qualifiers: Qualified Code(s): N39.0 - Urinary tract infection, site not specified (2) ARF (acute renal failure) Assessment/Plan: improved Code(s): N17.9 - ACUTE KIDNEY FAILURE, UNSPECIFIED (3) Decubitus ulcer Assessment/Plan: wound care team on board wound vac Code(s): L89.90 - PRESSURE ULCER OF UNSPECIFIED SITE, UNSPECIFIED STAGE (4) Dementia Assessment/Plan: zyprexa nameda remeron Code(s): F03.90 - UNSPECIFIED DEMENTIA WITHOUT BEHAVIORAL DISTURBANCE (5) Hypernatremia Assessment/Plan: ivf monitopr na Code(s): E87.0 - HYPEROSMOLALITY AND HYPERNATREMIA Assessment/Plan lovenox for DVT DM bgm noted dec the insulin dose
[2016-08-10] MEDS ORDERED: PT OWN MED DRAWER 7, Y5N ONE (10:35)
[2016-08-10] MEDS: RANITIDINE HCL 150 MG/10 ML UNIT-DOSE CUP GT SCH (10:37)
[2016-08-10] MEDS: VANCOMYCIN 1 GRAM (PRE-DOCKED) 250 ML IVPB SCH (10:37)
[2016-08-10] MEDS: ERTAPENEM SODIUM 1 GM in SODIUM CHLORIDE 50 ML IVPB SCH (10:39)
[2016-08-10] MEDS: ESCITALOPRAM OXALATE 5 MG/5 ML GT SCH (12:13)
[2016-08-10] MEDS: ENOXAPARIN NA (PORCINE) 40 MG/0.4 ML DISP.SYRIN SQ SCH (12:13)
[2016-08-10] MEDS: COLLAGENASE CLOSTRIDIUM HIST. 30 GRAMS TUBE TP SCH (12:45)
[2016-08-10] MEDS ORDERED: INSULIN (NOVOLOG) ASPART 100 UNITS/ML 10ML VIAL ONE (13:46)
--- NOTE | 2016-08-10 14:28 | PN ---
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 (short form) - Note 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: Renal Follow up for hypernatermia and CKD Pt seen and examined at the bedside awake but confused on tube feeds no fevers in the last 24 hours Vital Signs Temperature 98.6 F 08/10/16 06:00 Pulse Rate 85 08/10/16 12:04 Respiratory Rate 22 08/10/16 06:00 Blood Pressure 112/56 08/10/16 06:00 O2 Sat by Pulse Oximetry (%) 98 08/10/16 12:04 Intake & Output 08/07/16 08/08/16 08/09/16 08/10/16 23:59 23:59 23:59 23:59 Intake Total 3565 3640 2009 1140 Output Total 2725 800 100 Balance 840 2840 1910 1140 Weight 112 lb 6.4 oz 112 lb 3.2 oz Gen: NAD, awake and alert CVS: RRR, No M/R Lungs: CTA Abd: Soft NT/ND. Feeding tube in place Ext: No edema, b/l BKA CBC, BMP 08/10/16 05:35 08/10/16 05:35 Laboratory Tests 08/10/16 05:35 Calcium 8.5 Phosphorus 3.4 Magnesium 2.3 Albumin 1.8 L Current Medications Acetaminophen (Tylenol Oral Solution -) 650 mg GT Q6H PRN PRN Reason: FEVER OR PAIN Last Admin: 08/08/16 09:05 Dose: 650 mg Collagenase (Santyl -) 1 applic TP DAILY [facility] Last Admin: 08/10/16 12:45 Dose: Not Given Escitalopram Oxalate (Lexapro Oral Solution -) 10 mg GT DAILY [facility] Last Admin: 08/10/16 12:13 Dose: 10 mg Ertapenem 1 gm/ Sodium (Chloride) 50 mls @ 100 mls/hr IVPB DAILY [facility] PRN Reason: Protocol Last Admin: 08/10/16 10:39 Dose: 100 mls/hr Vancomycin HCl (Vancomycin (Pre-Docked)) 250 mls @ 200 mls/hr IVPB DAILY@1000 [facility] Last Admin: 08/10/16 10:37 Dose: 200 mls/hr Insulin Aspart (Novolog Vial Sliding Scale -) 1 vial SQ ACHS [facility] PRN Reason: Protocol Last Admin: 08/10/16 13:51 Dose: 2 units Insulin Detemir (Levemir Vial) 10 units SQ HS [facility] Last Admin: 08/09/16 22:08 Dose: 10 units Ipratropium [place] (Atrovent 0.02% Nebulizer -) 1 amp NEB QIDR [facility] Last Admin: 08/10/16 12:00 Dose: 1 amp Mirtazapine (Remeron -) 30 mg PO HS [facility] Last Admin: 08/09/16 22:08 Dose: 30 mg Multivitamins/Minerals/Vitamin C (Tab-A-Vit -) 1 tab PO DAILY [facility] Olanzapine (Zyprexa -) 5 mg GT [facility] Last Admin: 08/09/16 22:08 Dose: 5 mg Ranitidine HCl (Zantac Oral Solution -) 150 mg GT DAILY [facility] Last Admin: 08/10/16 10:37 Dose: 150 mg Tamsulosin HCl (Flomax -) 0.8 mg PO DAILY@0830 [facility] Last Admin: 08/10/16 07:42 Dose: 0.8 mg A/P 80 year old woman with PMhx of Multiple GIANNI's, Hypernatremia, Hypertension, DM, HLD, GERD, PVD s/p b/l BKA who presented from [place] with Fever and found to have Na of 150 and Cr of 1.1. #Hypernatremia Serum Na now improved to normal d/c IVF Will change tube feeds and free water as per nutrition recs #Mild Hyperkalemia Tube feeds changed to Nephro #GIANNI on CKD Likely from volume depletion + sepsis/renal hypoperfusion renal function now improved to baseline #Fever/Sacral Decubitis/Suspected UTI f/u cultures Abx as per primary/ID wound vac in place #Hypophosphatemia phos now improved trend daily Thank you Vahid Manzano DO
--- NOTE | 2016-08-10 16:01 | PN ---
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, Physician History of Present Illness: Awake, non- conversant Afebrile No acute distress - Current Medication List Current Medications: Active Medications Acetaminophen (Tylenol Oral Solution -) 650 mg GT Q6H PRN PRN Reason: FEVER OR PAIN Last Admin: 08/08/16 09:05 Dose: 650 mg Collagenase (Santyl -) 1 applic TP DAILY [facility] Last Admin: 08/10/16 12:45 Dose: Not Given Escitalopram Oxalate (Lexapro Oral Solution -) 10 mg GT DAILY [facility] Last Admin: 08/10/16 12:13 Dose: 10 mg Ertapenem 1 gm/ Sodium (Chloride) 50 mls @ 100 mls/hr IVPB DAILY [facility] PRN Reason: Protocol Last Admin: 08/10/16 10:39 Dose: 100 mls/hr Vancomycin HCl (Vancomycin (Pre-Docked)) 250 mls @ 200 mls/hr IVPB DAILY@1000 [facility] Last Admin: 08/10/16 10:37 Dose: 200 mls/hr Insulin Aspart (Novolog Vial Sliding Scale -) 1 vial SQ [facility] PRN Reason: Protocol Last Admin: 08/10/16 13:51 Dose: 2 units Insulin Detemir (Levemir Vial) 10 units SQ [facility] Last Admin: 08/09/16 22:08 Dose: 10 units Ipratropium [place] (Atrovent 0.02% Nebulizer -) 1 amp NEB QIDR [facility] Last Admin: 08/10/16 12:00 Dose: 1 amp Mirtazapine (Remeron -) 30 mg PO [facility] Last Admin: 08/09/16 22:08 Dose: 30 mg Olanzapine (Zyprexa -) 5 mg GT HS [facility] Last Admin: 08/09/16 22:08 Dose: 5 mg Ranitidine HCl (Zantac Oral Solution -) 150 mg GT DAILY [facility] Last Admin: 08/10/16 10:37 Dose: 150 mg Tamsulosin HCl (Flomax -) 0.8 mg PO DAILY@0830 [facility] Last Admin: 08/10/16 07:42 Dose: 0.8 mg - Objective Vital Signs: Vital Signs Temperature 98.7 F 08/10/16 15:36 Pulse Rate 66 08/10/16 15:36 Respiratory Rate 22 08/10/16 15:36 Blood Pressure 102/47 08/10/16 15:36 O2 Sat by Pulse Oximetry (%) 98 08/10/16 12:04 Constitutional: Yes: No Distress Eyes: Yes: Conjunctiva Clear Cardiovascular: Yes: Regular Rate and Rhythm, S1, S2 Respiratory: Yes: CTA Bilaterally Gastrointestinal: Yes: Normal Bowel Sounds, Soft. No: Tenderness Extremities: Yes: Other (S/P BKA bilaterally) Labs: CBC, BMP 08/10/16 05:35 08/10/16 05:35 INR, PTT INR 0.99 (0.82-1.09) 08/02/16 10:01 Assessment/Plan UTI/ Sepsis secondary to UTI v. 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
[2016-08-10] MEDS: ACETAMINOPHEN 650 MG/20.3 ML ORAL SOLUTION (CUPS) GT PRN (19:03)
[2016-08-10] MEDS ORDERED: MIRTAZAPINE 15 MG TABLET (FP) ONE (22:00)
[2016-08-10] MEDS: OLANZapine 5 MG TABLET GT SCH (22:06)
[2016-08-10] MEDS: MIRTAZAPINE 30 MG TABLET (FP) PO SCH (22:06)
[2016-08-10] MEDS: INSULIN DETEMIR 100 UNITS/ML MDV SQ SCH (22:06)
[2016-08-11] MEDS: IPRATROPIUM BR 0.02% 0.5 MG/2.5 ML VIAL.NEB. NEB SCH ×3 (06:23→18:00)
[2016-08-11] MEDS: INSULIN SLIDING SCALE (NOVOLOG) 1 VIAL SQ SCH ×4 (06:31→22:28)
[2016-08-11 08:38] LABS: ANION GAP 6 (8-16); CALCIUM 9.1 mg/dL (8.5-10.1); CO2 32 mmol/L (21-32); CREATININE 0.6 mg/dL (0.55-1.02); GLUCOSE,RANDOM 228 mg/dL (74-106); MAGNESIUM 2.3 mg/dL (1.8-2.4)
--- NOTE | 2016-08-11 08:47 | PN ---
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, Physician History of Present Illness: 80yo Female patient with extensive medical history which includes HTN, DM, HLD, GERD bilateral BKA presents to ED via EMS from [facility] for evaluation of fever - Current Medication List Current Medications: Active Medications Acetaminophen (Tylenol Oral Solution -) 650 mg GT Q6H PRN PRN Reason: FEVER OR PAIN Last Admin: 08/10/16 19:03 Dose: 650 mg Collagenase (Santyl -) 1 applic TP DAILY [facility] Last Admin: 08/10/16 12:45 Dose: Not Given Escitalopram Oxalate (Lexapro Oral Solution -) 10 mg GT DAILY [facility] Last Admin: 08/10/16 12:13 Dose: 10 mg Insulin Aspart (Novolog Vial Sliding Scale -) 1 vial SQ ACHS [facility] PRN Reason: Protocol Last Admin: 08/11/16 06:31 Dose: 2 units Insulin Detemir (Levemir Vial) 10 units SQ HS [facility] Last Admin: 08/10/16 22:06 Dose: 10 units Ipratropium [place] (Atrovent 0.02% Nebulizer -) 1 amp NEB QIDR [facility] Last Admin: 08/11/16 06:23 Dose: 1 amp Mirtazapine (Remeron -) 30 mg PO HS [facility] Last Admin: 08/10/16 22:06 Dose: 30 mg Multivitamins (Thera-Plus -) 5 ml GT DAILY [facility] Olanzapine (Zyprexa -) 5 mg GT HS [facility] Last Admin: 08/10/16 22:06 Dose: 5 mg Ranitidine HCl (Zantac Oral Solution -) 150 mg GT DAILY [facility] Last Admin: 08/10/16 10:37 Dose: 150 mg Tamsulosin HCl (Flomax -) 0.8 mg PO DAILY@0830 [facility] Last Admin: 08/10/16 07:42 Dose: 0.8 mg - Objective Vital Signs: Vital Signs Temperature 97.8 F 08/11/16 06:00 Pulse Rate 94 H 08/11/16 06:00 Respiratory Rate 20 08/11/16 06:00 Blood Pressure 129/51 08/11/16 06:00 O2 Sat by Pulse Oximetry (%) 96 08/10/16 21:00 Cardiovascular: Yes: S1, S2 Respiratory: Yes: Regular, CTA Bilaterally Gastrointestinal: Yes: Normal Bowel Sounds, Soft Extremities: Yes: Amputation Wound/Incision: Yes: Other (SACRAL WOUND PER WOUND CARE TEAM) Labs: CBC, BMP 08/10/16 05:35 08/11/16 06:20 INR, PTT INR 0.99 (0.82-1.09) 08/02/16 10:01 Problem List - Problems (1) UTI (urinary tract infection) Assessment/Plan: OFF ABX REPEAT CULTURES ID ON CASE Code(s): N39.0 - URINARY TRACT INFECTION, SITE NOT SPECIFIED Qualifiers: Qualified Code(s): N39.0 - Urinary tract infection, site not specified (2) ARF (acute renal failure) Assessment/Plan: MONITOR ON CURRENT FLUIDS DC IVF FLUIDS VIA PEG Code(s): N17.9 - ACUTE KIDNEY FAILURE, UNSPECIFIED (3) Acute bilateral deep vein thrombosis (DVT) of femoral veins Assessment/Plan: LOVENOX Code(s): I82.413 - ACUTE EMBOLISM AND THROMBOSIS OF FEMORAL VEIN, BILATERAL (4) Aortic stenosis Assessment/Plan: CARDIO Code(s): I35.0 - NONRHEUMATIC AORTIC (VALVE) STENOSIS Qualifiers: Qualified Code(s): I35.0 - Nonrheumatic aortic (valve) stenosis (5) Decubitus ulcer Assessment/Plan: SURGICAL F/U VAC PER SURGERY OFF ABX PER ID Code(s): L89.90 - PRESSURE ULCER OF UNSPECIFIED SITE, UNSPECIFIED STAGE (6) Fever Assessment/Plan: LOW GRADE--RECULTURE ID ON CASE OFF ABX PER ID Code(s): R50.9 - FEVER, UNSPECIFIED (7) Type 2 diabetes mellitus with other diabetic kidney complication Assessment/Plan: BGM SS Code(s): E11.29 - TYPE 2 DIABETES MELLITUS W [facility] DIABETIC KIDNEY COMPLICATION
[2016-08-11] MEDS ORDERED: PT OWN MED DRAWER 7, Y5N ONE ×2 (09:16→11:58)
[2016-08-11 09:21] LABS: ALK PHOS 118 U/L (45-117); BILIRUBIN,TOTAL 0.2 mg/dL (0.2-1.0); SGOT/AST 13 U/L (15-37); SGPT/ALT 11 U/L (12-78); TOT PROT 7.1 g/dl (6.4-8.2)
[2016-08-11 09:23] LABS: BASOPHIL 0.4 % (0-2.0); EOSINOPHIL 1.9 % (0-4.5); MCH 30.1 pg (25.7-33.7); MCHC 32.5 g/dl (32.0-36.0); MEAN CELL VOLUME 92.4 fl (80-96); MEAN PLT VOLUME 8.4 fl (7.5-11.1); NEUTROPHILS 52.3 % (42.8-82.8); PLATELET COUNT 324 K/MM3 (134-434); RDW 18.5 % (11.6-15.6); WHITE BLOOD COUNT 7.8 K/mm3 (4.0-10.0)
[2016-08-11 09:49] LABS: ALBUMIN 1.9 g/dl (3.4-5.0)
--- NOTE | 2016-08-11 10:46 | PN ---
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 (short form) - Note 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: Renal Follow up for hypernatermia and CKD Pt seen and examined at the bedside febrile overnight on Nephro tube feeds now Vital Signs Temperature 97.8 F 08/11/16 06:00 Pulse Rate 94 H 08/11/16 06:00 Respiratory Rate 20 08/11/16 06:00 Blood Pressure 129/51 08/11/16 06:00 O2 Sat by Pulse Oximetry (%) 96 08/10/16 21:00 Intake & Output 08/08/16 08/09/16 08/10/16 08/11/16 23:59 23:59 23:59 23:59 Intake Total 3640 2009 1989 780 Output Total 800 100 140 75 Balance 2840 1910 1850 705 Weight 112 lb 3.2 oz Gen: NAD, confused CVS: RRR, No M/R Lungs: CTA Abd: Soft NT/ND. Feeding tube in place Ext: No edema, b/l BKA CBC, BMP 08/11/16 06:20 08/11/16 06:20 Laboratory Tests 08/11/16 06:20 Calcium 9.1 Phosphorus 4.0 Magnesium 2.3 Albumin 1.9 L Current Medications Acetaminophen (Tylenol Oral Solution -) 650 mg GT Q6H PRN PRN Reason: FEVER OR PAIN Last Admin: 08/10/16 19:03 Dose: 650 mg Collagenase (Santyl -) 1 applic TP DAILY [facility] Last Admin: 08/10/16 12:45 Dose: Not Given Enoxaparin Sodium (Lovenox -) 40 mg SQ BID [facility] Escitalopram Oxalate (Lexapro Oral Solution -) 10 mg GT DAILY [facility] Last Admin: 08/10/16 12:13 Dose: 10 mg Insulin Aspart (Novolog Vial Sliding Scale -) 1 vial SQ [facility] PRN Reason: Protocol Last Admin: 08/11/16 06:31 Dose: 2 units Insulin Detemir (Levemir Vial) 10 units SQ HS [facility] Last Admin: 08/10/16 22:06 Dose: 10 units Ipratropium [place] (Atrovent 0.02% Nebulizer -) 1 amp NEB QIDR [facility] Last Admin: 08/11/16 06:23 Dose: 1 amp Mirtazapine (Remeron -) 30 mg PO HS [facility] Last Admin: 08/10/16 22:06 Dose: 30 mg Multivitamins (Thera-Plus -) 5 ml GT DAILY [facility] Olanzapine (Zyprexa -) 5 mg GT HS [facility] Last Admin: 08/10/16 22:06 Dose: 5 mg Ranitidine HCl (Zantac Oral Solution -) 150 mg GT DAILY [facility] Last Admin: 08/10/16 10:37 Dose: 150 mg Tamsulosin HCl (Flomax -) 0.8 mg PO DAILY@0830 [facility] Last Admin: 08/10/16 07:42 Dose: 0.8 mg A/P 80 year old woman with PMhx of Multiple GIANNI's, Hypernatremia, Hypertension, DM, HLD, GERD, PVD s/p b/l BKA who presented from [place] with Fever and found to have Na of 150 and Cr of 1.1. #Hypernatremia serum Na WNL continue tube feeds and free water off IVF #Mild Hyperkalemia Tube feeds changed to Nephro K is now WNL #GIANNI on CKD Likely from volume depletion + sepsis/renal hypoperfusion renal function now improved to baseline #Fever/Sacral Decubitis/Suspected UTI archer cutlures to be drawn today Abx as per ID #Hypophosphatemia phos now improved trend daily Thank you Vahid Manzano DO
[2016-08-11] MEDS: TAMSULOSIN HCL 0.4 MG CAP.ER.24H (FP) PO SCH (12:08)
[2016-08-11] MEDS: RANITIDINE HCL 150 MG/10 ML UNIT-DOSE CUP GT SCH (12:08)
[2016-08-11] MEDS: MULTIVITAMINS LIQUID THERAPEUTIC 118 ML BOT GT SCH (12:08)
[2016-08-11] MEDS: ACETAMINOPHEN 650 MG/20.3 ML ORAL SOLUTION (CUPS) GT PRN ×2 (12:08→19:00)
[2016-08-11] MEDS: ESCITALOPRAM OXALATE 5 MG/5 ML GT SCH (12:09)
[2016-08-11] MEDS: ENOXAPARIN NA (PORCINE) 40 MG/0.4 ML DISP.SYRIN SQ SCH ×2 (12:09→22:28)
[2016-08-11] MEDS: COLLAGENASE CLOSTRIDIUM HIST. 30 GRAMS TUBE TP SCH (12:09)
[2016-08-11 12:50] LABS: URINE APPEARANCE CLEAR; URINE BILIRUBIN NEGATIVE (NEGATIVE); URINE BLOOD NEGATIVE (NEGATIVE); URINE COLOR LTYELLOW; URINE GLUCOSE (UA) NEGATIVE (NEGATIVE); URINE KETONE NEGATIVE (NEGATIVE); URINE NITRITE NEGATIVE (NEGATIVE); URINE PROTEIN NEGATIVE (NEGATIVE); URINE UROBILINOGEN NEGATIVE E.U./dl (0.2-1.0)
[2016-08-11 12:54] LABS: URINE LEUK ESTERASE 3+ (NEGATIVE)
[2016-08-11 12:58] LABS: URINE BACTERIA RARE /hpf (NONE SEEN); URINE MUCUS RARE; URINE RBC 1 /hpf (0-3); URINE WBC 41 /hpf (3-5)
--- NOTE | 2016-08-11 13:24 | PN ---
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 (short form) - Note 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: Asked by nursing staff to reeval the sacra wound of pt raul. She has a vac in place and the dressing is to be changed tomorrow. Just replaced yesterday twice. The patient was febrile to 100.9 with an improved leukocytosis(now within normal limits) urine cultures/blood cultures pending. I spoke with the nursing staff and will plan to evaluate the wound tomorrow with the dressing change. An physician instruction order to call surgery for dressing change was placed. If the dressing should need to be removed earlier may replace with wet to dry until seen by surgery.
--- NOTE | 2016-08-11 14:53 | PN ---
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 (short form) - Note 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: Surgery- Dr. Rivers Asked by nursing to see patient for sacral ulcer evaluation. Per nursing patient had an elevated wbc and became febrile. WBC was 11.7 on 08/08, has been WNL since. Temp 100.9 yesterday, currently afebrile. Last Vital Signs Temp Pulse Resp BP Pulse Ox 97.8 F 94 H 20 129/51 96 08/11/16 06:00 08/11/16 06:00 08/11/16 06:00 08/11/16 06:00 08/10/16 21:00 CBC, BMP 08/11/16 06:20 08/11/16 06:20 Exam: Gen: NAD Sacrum: sacral ulcer measuring 6x6 cm, with 3cm undermining superiorly and 4cm undermining bilaterally, no inferior undermining, tissue is pink, clean, granulating, with minimal fibrinous tissue, no drainage or odor A/P Sacral ulcer Continue current treatment and wound vac therapy, wound vac taken down and replaced with nursing Frequent repositioning Offload remaining pressure sensitive areas
[2016-08-11 18:48] LABS: ARTERIAL BLD GAS O2 SATURATION 95.6 % (90-98.9); ARTERIAL BLOOD GAS BASE EXCESS 5.7 meq/l (-2-2); ARTERIAL BLOOD GAS HCO3 30.1 meq/L (22-26); ARTERIAL BLOOD GAS PO2 76.3 mmHg (70-100); ARTERIAL BLOOD GAS pH 7.44 (7.35-7.45)
[2016-08-11 18:49] LABS: ALLENS TEST POSITIVE; ART PUNCT SITE LEFT RADIAL; PT. ON O2? YES
[2016-08-11 18:50] LABS: LPM/O2% 2LPM; TYPE OF O2 NASAL CANNULA
[2016-08-11] MEDS ORDERED: MIRTAZAPINE 15 MG TABLET (FP) ONE (22:00)
[2016-08-11] MEDS: INSULIN DETEMIR 100 UNITS/ML MDV SQ SCH (22:28)
[2016-08-11] MEDS: MIRTAZAPINE 30 MG TABLET (FP) PO SCH (22:29)
[2016-08-11] MEDS: OLANZapine 5 MG TABLET GT SCH (22:29)
[2016-08-11] MEDS ORDERED: IPRATROPIUM BR 0.02% 0.5 MG/2.5 ML VIAL.NEB. NEB ONE (22:37)
[2016-08-12] MEDS: INSULIN SLIDING SCALE (NOVOLOG) 1 VIAL SQ SCH ×4 (06:17→21:41)
[2016-08-12 08:18] LABS: COCKROFT - GAULT 52.3515; CREATININE 0.7 mg/dL (0.55-1.02); MAGNESIUM 2.3 mg/dL (1.8-2.4); PHOSPHOROUS 3.1 mg/dL (2.5-4.9)
--- NOTE | 2016-08-12 08:26 | PN ---
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, Physician History of Present Illness: 80yo Female patient with extensive medical history which includes HTN, DM, HLD, GERD bilateral BKA presents to ED via EMS from [facility] for evaluation of fever - Current Medication List Current Medications: Active Medications Acetaminophen (Tylenol Oral Solution -) 650 mg GT Q6H PRN PRN Reason: FEVER OR PAIN Last Admin: 08/11/16 19:00 Dose: 650 mg Collagenase (Santyl -) 1 applic TP DAILY [facility] Last Admin: 08/11/16 12:09 Dose: Not Given Enoxaparin Sodium (Lovenox -) 40 mg SQ BID [facility] Last Admin: 08/11/16 22:28 Dose: 40 mg Escitalopram Oxalate (Lexapro Oral Solution -) 10 mg GT DAILY [facility] Last Admin: 08/11/16 12:09 Dose: Not Given Insulin Aspart (Novolog Vial Sliding Scale -) 1 vial SQ ACHS [facility] PRN Reason: Protocol Last Admin: 08/12/16 06:17 Dose: 4 units Insulin Detemir (Levemir Vial) 10 units SQ HS [facility] Last Admin: 08/11/16 22:28 Dose: 10 units Mirtazapine (Remeron -) 30 mg PO HS [facility] Last Admin: 08/11/16 22:29 Dose: 30 mg Multivitamins (Thera-Plus -) 5 ml GT DAILY [facility] Last Admin: 08/11/16 12:08 Dose: 5 ml Olanzapine (Zyprexa -) 5 mg GT HS [facility] Last Admin: 08/11/16 22:29 Dose: 5 mg Ranitidine HCl (Zantac Oral Solution -) 150 mg GT DAILY [facility] Last Admin: 08/11/16 12:08 Dose: 150 mg Tamsulosin HCl (Flomax -) 0.8 mg PO DAILY@0830 [facility] Last Admin: 08/11/16 12:08 Dose: 0.8 mg - Objective Vital Signs: Vital Signs Temperature 98.1 F 08/12/16 07:44 Pulse Rate 85 08/12/16 07:44 Respiratory Rate 18 08/12/16 07:44 Blood Pressure 106/45 08/12/16 07:44 O2 Sat by Pulse Oximetry (%) 94 L 08/11/16 21:00 Cardiovascular: Yes: S1, S2 Respiratory: Yes: Regular, CTA Bilaterally Gastrointestinal: Yes: Normal Bowel Sounds, Soft Labs: INR, PTT INR 0.99 (0.82-1.09) 08/02/16 10:01 Problem List - Problems (1) UTI (urinary tract infection) Code(s): N39.0 - URINARY TRACT INFECTION, SITE NOT SPECIFIED Qualifiers: Qualified Code(s): N39.0 - Urinary tract infection, site not specified (2) ARF (acute renal failure) Code(s): N17.9 - ACUTE KIDNEY FAILURE, UNSPECIFIED (3) Acute bilateral deep vein thrombosis (DVT) of femoral veins Code(s): I82.413 - ACUTE EMBOLISM AND THROMBOSIS OF FEMORAL VEIN, BILATERAL (4) Aortic stenosis Code(s): I35.0 - NONRHEUMATIC AORTIC (VALVE) STENOSIS Qualifiers: Qualified Code(s): I35.0 - Nonrheumatic aortic (valve) stenosis (5) Decubitus ulcer Code(s): L89.90 - PRESSURE ULCER OF UNSPECIFIED SITE, UNSPECIFIED STAGE (6) Fever Code(s): R50.9 - FEVER, UNSPECIFIED (7) Type 2 diabetes mellitus with other diabetic kidney complication Code(s): E11.29 - TYPE 2 DIABETES [facility]LLIT[facility] DIABETIC KIDNEY COMPLICATION Assessment/Plan Problems (1) UTI (urinary tract infection) Assessment/Plan: ertrapenem per id ESBL contact isolation Code(s): N39.0 - URINARY TRACT INFECTION, SITE NOT SPECIFIED Qualifiers: Qualified Code(s): N39.0 - Urinary tract infection, site not specified (2) ARF (acute renal failure) Assessment/Plan: improved Code(s): N17.9 - ACUTE KIDNEY FAILURE, UNSPECIFIED (3) Decubitus ulcer Assessment/Plan: wound care team on board wound vac Code(s): L89.90 - PRESSURE ULCER OF UNSPECIFIED SITE, UNSPECIFIED STAGE (4) Dementia Assessment/Plan: zyprexa nameda remeron Code(s): F03.90 - UNSPECIFIED DEMENTIA WITHOUT BEHAVIORAL DISTURBANCE (5) Hypernatremia Assessment/Plan: ivf monitopr na Code(s): E87.0 - HYPEROSMOLALITY AND HYPERNATREMIA Assessment/Plan lovenox for DVT DM bgm noted dec the insulin dose
[2016-08-12 08:37] LABS: BASOPHIL 0.3 % (0-2.0); MCHC 32.7 g/dl (32.0-36.0); MEAN CELL VOLUME 91.7 fl (80-96); MEAN PLT VOLUME 8.4 fl (7.5-11.1); NEUTROPHILS 54.7 % (42.8-82.8); PLATELET COUNT 336 K/MM3 (134-434); RDW 18.3 % (11.6-15.6); WHITE BLOOD COUNT 7.6 K/mm3 (4.0-10.0)
--- NOTE | 2016-08-12 08:37 | PN ---
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, Physician History of Present Illness: 80yo Female patient with extensive medical history which includes HTN, DM, HLD, GERD bilateral BKA presents to ED via EMS from [facility] for evaluation of fever - Current Medication List Current Medications: Active Medications Acetaminophen (Tylenol Oral Solution -) 650 mg GT Q6H PRN PRN Reason: FEVER OR PAIN Last Admin: 08/11/16 19:00 Dose: 650 mg Collagenase (Santyl -) 1 applic TP DAILY [facility] Last Admin: 08/11/16 12:09 Dose: Not Given Enoxaparin Sodium (Lovenox -) 40 mg SQ BID [facility] Last Admin: 08/11/16 22:28 Dose: 40 mg Escitalopram Oxalate (Lexapro Oral Solution -) 10 mg GT DAILY [facility] Last Admin: 08/11/16 12:09 Dose: Not Given Insulin Aspart (Novolog Vial Sliding Scale -) 1 vial SQ ACHS [facility] PRN Reason: Protocol Last Admin: 08/12/16 06:17 Dose: 4 units Insulin Detemir (Levemir Vial) 10 units SQ HS [facility] Last Admin: 08/11/16 22:28 Dose: 10 units Mirtazapine (Remeron -) 30 mg PO HS [facility] Last Admin: 08/11/16 22:29 Dose: 30 mg Multivitamins (Thera-Plus -) 5 ml GT DAILY [facility] Last Admin: 08/11/16 12:08 Dose: 5 ml Olanzapine (Zyprexa -) 5 mg GT HS [facility] Last Admin: 08/11/16 22:29 Dose: 5 mg Ranitidine HCl (Zantac Oral Solution -) 150 mg GT DAILY [facility] Last Admin: 08/11/16 12:08 Dose: 150 mg Tamsulosin HCl (Flomax -) 0.8 mg PO DAILY@0830 [facility] Last Admin: 08/11/16 12:08 Dose: 0.8 mg - Objective Vital Signs: Vital Signs Temperature 98.1 F 08/12/16 07:44 Pulse Rate 85 08/12/16 07:44 Respiratory Rate 18 08/12/16 07:44 Blood Pressure 106/45 08/12/16 07:44 O2 Sat by Pulse Oximetry (%) 94 L 08/11/16 21:00 Cardiovascular: Yes: S1, S2 Respiratory: Yes: Regular, CTA Bilaterally Gastrointestinal: Yes: Normal Bowel Sounds, Soft Labs: CBC, BMP 08/12/16 06:11 INR, PTT INR 0.99 (0.82-1.09) 08/02/16 10:01 Problem List - Problems (1) UTI (urinary tract infection) Code(s): N39.0 - URINARY TRACT INFECTION, SITE NOT SPECIFIED Qualifiers: Qualified Code(s): N39.0 - Urinary tract infection, site not specified (2) ARF (acute renal failure) Code(s): N17.9 - ACUTE KIDNEY FAILURE, UNSPECIFIED (3) Acute bilateral deep vein thrombosis (DVT) of femoral veins Code(s): I82.413 - ACUTE EMBOLISM AND THROMBOSIS OF FEMORAL VEIN, BILATERAL (4) Aortic stenosis Code(s): I35.0 - NONRHEUMATIC AORTIC (VALVE) STENOSIS Qualifiers: Qualified Code(s): I35.0 - Nonrheumatic aortic (valve) stenosis (5) Decubitus ulcer Code(s): L89.90 - PRESSURE ULCER OF UNSPECIFIED SITE, UNSPECIFIED STAGE (6) Fever Code(s): R50.9 - FEVER, UNSPECIFIED (7) Type 2 diabetes mellitus with other diabetic kidney complication Code(s): E11.29 - TYPE 2 DIABETES [facility] DIABETIC KIDNEY COMPLICATION Assessment/Plan Problems (1) UTI (urinary tract infection) Assessment/Plan: off ertrapenem per id ESBL contact isolation Code(s): N39.0 - URINARY TRACT INFECTION, SITE NOT SPECIFIED Qualifiers: Qualified Code(s): N39.0 - Urinary tract infection, site not specified (2) ARF (acute renal failure) Assessment/Plan: improved Code(s): N17.9 - ACUTE KIDNEY FAILURE, UNSPECIFIED (3) Decubitus ulcer Assessment/Plan: wound care team on board wound vac Code(s): L89.90 - PRESSURE ULCER OF UNSPECIFIED SITE, UNSPECIFIED STAGE (4) Dementia Assessment/Plan: zyprexa nameda remeron Code(s): F03.90 - UNSPECIFIED DEMENTIA WITHOUT BEHAVIORAL DISTURBANCE (5) Fever Assessment/Plan: low grade off abx cultures done wound evaluated by surgery cxr nad id --follow up Assessment/Plan lovenox for DVT DM bgm noted dec the insulin dose
[2016-08-12] MEDS: ENOXAPARIN NA (PORCINE) 40 MG/0.4 ML DISP.SYRIN SQ SCH ×2 (09:27→21:33)
[2016-08-12] MEDS: TAMSULOSIN HCL 0.4 MG CAP.ER.24H (FP) PO SCH (09:27)
[2016-08-12] MEDS: RANITIDINE HCL 150 MG/10 ML UNIT-DOSE CUP GT SCH (09:27)
[2016-08-12] MEDS: MULTIVITAMINS LIQUID THERAPEUTIC 118 ML BOT GT SCH (09:28)
[2016-08-12] MEDS: COLLAGENASE CLOSTRIDIUM HIST. 30 GRAMS TUBE TP SCH (09:57)
[2016-08-12] MEDS: ESCITALOPRAM OXALATE 5 MG/5 ML GT SCH ×2 (11:44→12:45)
--- NOTE | 2016-08-12 15:10 | PN ---
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, Physician Chief Complaint: Awake, confused No complaints offered Low grade temps Off antibiotics - Current Medication List Current Medications: Active Medications Acetaminophen (Tylenol Oral Solution -) 650 mg GT Q6H PRN PRN Reason: FEVER OR PAIN Last Admin: 08/11/16 19:00 Dose: 650 mg Collagenase (Santyl -) 1 applic TP DAILY [facility] Last Admin: 08/12/16 09:57 Dose: Not Given Enoxaparin Sodium (Lovenox -) 40 mg SQ BID [facility] Last Admin: 08/12/16 09:27 Dose: 40 mg Escitalopram Oxalate (Lexapro Oral Solution -) 10 mg GT DAILY [facility] Last Admin: 08/12/16 12:45 Dose: 10 mg Insulin Aspart (Novolog Vial Sliding Scale -) 1 vial SQ ACHS [facility] PRN Reason: Protocol Last Admin: 08/12/16 11:44 Dose: 4 units Insulin Detemir (Levemir Vial) 10 units SQ HS [facility] Last Admin: 08/11/16 22:28 Dose: 10 units Mirtazapine (Remeron -) 30 mg PO HS [facility] Last Admin: 08/11/16 22:29 Dose: 30 mg Multivitamins (Thera-Plus -) 5 ml GT DAILY [facility] Last Admin: 08/12/16 09:28 Dose: 5 ml Olanzapine (Zyprexa -) 5 mg GT HS [facility] Last Admin: 08/11/16 22:29 Dose: 5 mg Ranitidine HCl (Zantac Oral Solution -) 150 mg GT DAILY [facility] Last Admin: 08/12/16 09:27 Dose: 150 mg Tamsulosin HCl (Flomax -) 0.8 mg PO DAILY@0830 [facility] Last Admin: 08/12/16 09:27 Dose: 0.8 mg - Objective Vital Signs: Vital Signs Temperature 98.1 F 08/12/16 07:44 Pulse Rate 85 08/12/16 07:44 Respiratory Rate 18 08/12/16 08:00 Blood Pressure 106/45 08/12/16 07:44 O2 Sat by Pulse Oximetry (%) 95 08/12/16 08:00 Constitutional: Yes: No Distress Eyes: Yes: Conjunctiva Clear Cardiovascular: Yes: Regular Rate and Rhythm, Murmur, S1, S2 Respiratory: Yes: CTA Bilaterally Gastrointestinal: Yes: Normal Bowel Sounds, Soft. No: Tenderness Extremities: Yes: Other (S/P bilateral BKA) Integumentary: Yes: Other (+ stage IV sacral decubitus VAC in place) Labs: CBC, BMP 08/12/16 06:11 08/12/16 06:11 INR, PTT INR 0.99 (0.82-1.09) 08/02/16 10:01 Assessment/Plan UTI/ Sepsis secondary to UTI v. 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
--- NOTE | 2016-08-12 16:09 | PN ---
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 (short form) - Note 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: Renal Follow up for hypernatermia and CKD Pt seen and examined at the bedside febrile yesterday evening no overnight events on tube feeds and free water Vital Signs Temperature 98.1 F 08/12/16 07:44 Pulse Rate 85 08/12/16 07:44 Respiratory Rate 18 08/12/16 08:00 Blood Pressure 106/45 08/12/16 07:44 O2 Sat by Pulse Oximetry (%) 95 08/12/16 08:00 Intake & Output 08/09/16 08/10/16 08/11/16 08/12/16 23:59 23:59 23:59 23:59 Intake Total 2009 1989 790 800 Output Total 100 140 175 250 Balance 1909 1850 615 550 Weight 112 lb 3.2 oz 112 lb 3.2 oz Gen: NAD, confused CVS: RRR, No M/R Lungs: CTA Abd: Soft NT/ND. Feeding tube in place Ext: No edema, b/l BKA CBC, BMP 08/12/16 06:11 08/12/16 06:11 Laboratory Tests 08/12/16 06:11 Calcium 9.0 Phosphorus 3.1 D Magnesium 2.3 Current Medications Acetaminophen (Tylenol Oral Solution -) 650 mg GT Q6H PRN PRN Reason: FEVER OR PAIN Last Admin: 08/11/16 19:00 Dose: 650 mg Collagenase (Santyl -) 1 applic TP DAILY [facility] Last Admin: 08/12/16 09:57 Dose: Not Given Enoxaparin Sodium (Lovenox -) 40 mg SQ BID [facility] Last Admin: 08/12/16 09:27 Dose: 40 mg Escitalopram Oxalate (Lexapro Oral Solution -) 10 mg GT DAILY [facility] Last Admin: 08/12/16 12:45 Dose: 10 mg Insulin Aspart (Novolog Vial Sliding Scale -) 1 vial SQ ACHS [facility] PRN Reason: Protocol Last Admin: 08/12/16 11:44 Dose: 4 units Insulin Detemir (Levemir Vial) 10 units SQ HS [facility] Last Admin: 08/11/16 22:28 Dose: 10 units Mirtazapine (Remeron -) 30 mg PO HS [facility] Last Admin: 08/11/16 22:29 Dose: 30 mg Multivitamins (Thera-Plus -) 5 ml GT DAILY [facility] Last Admin: 08/12/16 09:28 Dose: 5 ml Olanzapine (Zyprexa -) 5 mg GT HS [facility] Last Admin: 08/11/16 22:29 Dose: 5 mg Ranitidine HCl (Zantac Oral Solution -) 150 mg GT DAILY [facility] Last Admin: 08/12/16 09:27 Dose: 150 mg Tamsulosin HCl (Flomax -) 0.8 mg PO DAILY@0830 [facility] Last Admin: 08/12/16 09:27 Dose: 0.8 mg A/P 80 year old woman with PMhx of Multiple GIANNI's, Hypernatremia, Hypertension, DM, HLD, GERD, PVD s/p b/l BKA who presented from [place] with Fever and found to have Na of 150 and Cr of 1.1. #Hypernatremia serum na is now improved and stable on current tube feeds with free water #Mild Hyperkalemia Tube feeds changed to Nephro K is now WNL #GIANNI on CKD Likely from volume depletion + sepsis/renal hypoperfusion renal function now improved to baseline #Fever/Sacral Decubitis/Suspected UTI off antibiotics monitor for fever and trend WBC #Hypophosphatemia phos now improved trend daily Thank you Vahid Manzano DO
[2016-08-12] MEDS ORDERED: INSULIN (NOVOLOG) ASPART 100 UNITS/ML 10ML VIAL ONE (16:29)
[2016-08-12] MEDS: ACETAMINOPHEN 650 MG/20.3 ML ORAL SOLUTION (CUPS) GT PRN (20:03)
[2016-08-12] MEDS: MIRTAZAPINE 30 MG TABLET (FP) PO SCH (21:32)
[2016-08-12] MEDS: OLANZapine 5 MG TABLET GT SCH (21:33)
[2016-08-12] MEDS: INSULIN DETEMIR 100 UNITS/ML MDV SQ SCH (21:33)
[2016-08-13] MEDS: INSULIN SLIDING SCALE (NOVOLOG) 1 VIAL SQ SCH ×4 (06:14→22:15)
[2016-08-13] MEDS ORDERED: INSULIN (NOVOLOG) ASPART 100 UNITS/ML 10ML VIAL ONE ×3 (06:39→17:28)
[2016-08-13 09:05] LABS: CALCIUM 10.2 mg/dL (8.5-10.1); COCKROFT - GAULT 45.5005; CREATININE 0.8 mg/dL (0.55-1.02); MAGNESIUM 2.4 mg/dL (1.8-2.4); PHOSPHOROUS 3.6 mg/dL (2.5-4.9)
--- NOTE | 2016-08-13 10:13 | PN ---
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, Physician Chief Complaint: STILL WITH FEVERS, OFF ABX WOUND VAC - Current Medication List Current Medications: Active Medications Acetaminophen (Tylenol Oral Solution -) 650 mg GT Q6H PRN PRN Reason: FEVER OR PAIN Last Admin: 08/12/16 20:03 Dose: 650 mg Collagenase (Santyl -) 1 applic TP DAILY [facility] Last Admin: 08/12/16 09:57 Dose: Not Given Enoxaparin Sodium (Lovenox -) 40 mg SQ BID [facility] Last Admin: 08/12/16 21:33 Dose: 40 mg Escitalopram Oxalate (Lexapro Oral Solution -) 10 mg GT DAILY [facility] Last Admin: 08/12/16 12:45 Dose: 10 mg Insulin Aspart (Novolog Vial Sliding Scale -) 1 vial SQ ACHS [facility] PRN Reason: Protocol Last Admin: 08/13/16 06:14 Dose: 4 units Insulin Detemir (Levemir Vial) 10 units SQ HS [facility] Last Admin: 08/12/16 21:33 Dose: 10 units Mirtazapine (Remeron -) 30 mg PO HS [facility] Last Admin: 08/12/16 21:32 Dose: 30 mg Multivitamins (Thera-Plus -) 5 ml GT DAILY [facility] Last Admin: 08/12/16 09:28 Dose: 5 ml Olanzapine (Zyprexa -) 5 mg GT HS [facility] Last Admin: 08/12/16 21:33 Dose: 5 mg Ranitidine HCl (Zantac Oral Solution -) 150 mg GT DAILY [facility] Last Admin: 08/12/16 09:27 Dose: 150 mg Tamsulosin HCl (Flomax -) 0.8 mg PO DAILY@0830 [facility] Last Admin: 08/12/16 09:27 Dose: 0.8 mg - Objective Vital Signs: Vital Signs Temperature 98.6 F 08/13/16 06:55 Pulse Rate 95 H 08/13/16 06:55 Respiratory Rate 20 08/13/16 06:55 Blood Pressure 111/55 08/13/16 06:55 O2 Sat by Pulse Oximetry (%) 98 08/12/16 21:00 Constitutional: Yes: Mild Distress Eyes: Yes: WNL HENT: Yes: WNL Neck: Yes: WNL Cardiovascular: Yes: WNL Respiratory: Yes: WNL Gastrointestinal: Yes: WNL Genitourinary: Yes: Incontinence Musculoskeletal: Yes: Muscle Weakness Extremities: Yes: Amputation, Deformity Peripheral Pulses WNL: Yes Integumentary: Yes: Pressure Ulcer Wound/Incision: Yes: Dressing Dry and Intact, Unapproximated Neurological: Yes: Pre-Existing Deficit ...Motor Strength: LLE, RLE Labs: CBC, BMP 08/12/16 06:11 08/13/16 07:35 INR, PTT INR 0.99 (0.82-1.09) 08/02/16 10:01 Assessment/Plan SACRAL ULCER STAGE 3-[address] OFF ABX STILL WITH FEVERS WILL NEED DEBRIDEMENT LIKELY WITH ABX FPC DISCUSS WITH ID
[2016-08-13] MEDS ORDERED: PT OWN MED DRAWER 7, Y5N ONE (10:22)
[2016-08-13] MEDS: ESCITALOPRAM OXALATE 5 MG/5 ML GT SCH (10:36)
[2016-08-13] MEDS: ENOXAPARIN NA (PORCINE) 40 MG/0.4 ML DISP.SYRIN SQ SCH ×2 (10:37→22:15)
[2016-08-13] MEDS: TAMSULOSIN HCL 0.4 MG CAP.ER.24H (FP) PO SCH (10:37)
[2016-08-13] MEDS: MULTIVITAMINS LIQUID THERAPEUTIC 118 ML BOT GT SCH (10:38)
[2016-08-13] MEDS: RANITIDINE HCL 150 MG/10 ML UNIT-DOSE CUP GT SCH (10:38)
[2016-08-13] MEDS: COLLAGENASE CLOSTRIDIUM HIST. 30 GRAMS TUBE TP SCH (11:30)
--- NOTE | 2016-08-13 14:01 | PN ---
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 (short form) - Note 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: Renal Follow up for hypernatermia and CKD Pt seen and examined at the bedside no overnight events on tube feeds pt lethargic Vital Signs Temperature 98.6 F 08/13/16 06:55 Pulse Rate 95 H 08/13/16 06:55 Respiratory Rate 20 08/13/16 06:55 Blood Pressure 111/55 08/13/16 06:55 O2 Sat by Pulse Oximetry (%) 98 08/12/16 21:00 Intake & Output 08/10/16 08/11/16 08/12/16 08/13/16 23:59 23:59 23:59 23:59 Intake Total 1989 790 800 780 Output Total 140 175 250 Balance 1850 615 550 780 Weight 112 lb 3.2 oz 112 lb 3.2 oz 111 lb 7 oz Gen: NAD, confused CVS: RRR, No M/R Lungs: CTA Abd: Soft NT/ND. Feeding tube in place Ext: No edema, b/l BKA CBC, BMP 08/12/16 06:11 08/13/16 07:35 Laboratory Tests 08/13/16 07:35 Calcium 10.2 H Phosphorus 3.6 Magnesium 2.4 Current Medications Acetaminophen (Tylenol Oral Solution -) 650 mg GT Q6H PRN PRN Reason: FEVER OR PAIN Last Admin: 08/12/16 20:03 Dose: 650 mg Collagenase (Santyl -) 1 applic TP DAILY [facility] Last Admin: 08/13/16 11:30 Dose: Not Given Enoxaparin Sodium (Lovenox -) 40 mg SQ BID [facility] Last Admin: 08/13/16 10:37 Dose: 40 mg Escitalopram Oxalate (Lexapro Oral Solution -) 10 mg GT DAILY [facility] Last Admin: 08/13/16 10:36 Dose: 10 mg Insulin Aspart (Novolog Vial Sliding Scale -) 1 vial SQ ACHS [facility] PRN Reason: Protocol Last Admin: 08/13/16 11:32 Dose: 4 units Insulin Detemir (Levemir Vial) 10 units SQ HS [facility] Last Admin: 08/12/16 21:33 Dose: 10 units Mirtazapine (Remeron -) 30 mg PO HS [facility] Last Admin: 08/12/16 21:32 Dose: 30 mg Multivitamins (Thera-Plus -) 5 ml GT DAILY [facility] Last Admin: 08/13/16 10:38 Dose: 5 ml Olanzapine (Zyprexa -) 5 mg GT HS [facility] Last Admin: 08/12/16 21:33 Dose: 5 mg Ranitidine HCl (Zantac Oral Solution -) 150 mg GT DAILY [facility] Last Admin: 08/13/16 10:38 Dose: 150 mg Tamsulosin HCl (Flomax -) 0.8 mg PO DAILY@0830 [facility] Last Admin: 08/13/16 10:37 Dose: 0.8 mg A/P 80 year old woman with PMhx of Multiple GIANNI's, Hypernatremia, Hypertension, DM, HLD, GERD, PVD s/p b/l BKA who presented from [place] with Fever and found to have Na of 150 and Cr of 1.1. #Hypernatremia and Hyperkalemia now resolved on current tube feeds and free water #Hypercalcemia Corrected Ca is 11.88 will check PTH not currently on Ca supplements or Vit D Check PHos #GIANNI on CKD Likely from volume depletion + sepsis/renal hypoperfusion renal function now improved to baseline #Fever/Sacral Decubitis/Suspected UTI off antibiotics monitor for fever and trend WBC Thank you Vahid Manzano DO
[2016-08-13] MEDS: MIRTAZAPINE 30 MG TABLET (FP) PO SCH (22:14)
[2016-08-13] MEDS: OLANZapine 5 MG TABLET GT SCH (22:14)
[2016-08-13] MEDS: INSULIN DETEMIR 100 UNITS/ML MDV SQ SCH (22:15)
[2016-08-14] MEDS ORDERED: INSULIN (NOVOLOG) ASPART 100 UNITS/ML 10ML VIAL ONE ×2 (06:50→10:36)
[2016-08-14] MEDS: INSULIN SLIDING SCALE (NOVOLOG) 1 VIAL SQ SCH ×4 (06:54→22:15)
[2016-08-14 08:59] LABS: ALBUMIN 2.1 g/dl (3.4-5.0); ANION GAP 7 (8-16); CALCIUM 9.9 mg/dL (8.5-10.1); CO2 33 mmol/L (21-32); GLUCOSE,RANDOM 214 mg/dL (74-106); MAGNESIUM 2.3 mg/dL (1.8-2.4); PHOSPHOROUS 3.5 mg/dL (2.5-4.9); SGOT/AST 12 U/L (15-37)
[2016-08-14 09:02] LABS: ALK PHOS 125 U/L (45-117); BILIRUBIN,TOTAL 0.2 mg/dL (0.2-1.0); CREATININE 0.8 mg/dL (0.55-1.02); SGPT/ALT 11 U/L (12-78); TOT PROT 7.9 g/dl (6.4-8.2)
[2016-08-14] MEDS ORDERED: PT OWN MED DRAWER 7, Y5N ONE (10:36)
[2016-08-14] MEDS: ESCITALOPRAM OXALATE 5 MG/5 ML GT SCH (10:47)
[2016-08-14] MEDS: TAMSULOSIN HCL 0.4 MG CAP.ER.24H (FP) PO SCH (10:47)
[2016-08-14] MEDS: MULTIVITAMINS LIQUID THERAPEUTIC 118 ML BOT GT SCH (10:48)
[2016-08-14] MEDS: ENOXAPARIN NA (PORCINE) 40 MG/0.4 ML DISP.SYRIN SQ SCH ×2 (10:48→22:15)
[2016-08-14] MEDS: RANITIDINE HCL 150 MG/10 ML UNIT-DOSE CUP GT SCH (10:48)
[2016-08-14] MEDS: COLLAGENASE CLOSTRIDIUM HIST. 30 GRAMS TUBE TP SCH (10:48)
--- NOTE | 2016-08-14 12:56 | PN ---
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, Physician Chief Complaint: The patient seen in the bed. Unresponsive. G Tube feeding well tolerated. Good urine output. - Current Medication List Current Medications: Active Medications Acetaminophen (Tylenol Oral Solution -) 650 mg GT Q6H PRN PRN Reason: FEVER OR PAIN Last Admin: 08/12/16 20:03 Dose: 650 mg Collagenase (Santyl -) 1 applic TP DAILY [facility] Last Admin: 08/14/16 10:48 Dose: Not Given Enoxaparin Sodium (Lovenox -) 40 mg SQ BID [facility] Last Admin: 08/14/16 10:48 Dose: 40 mg Escitalopram Oxalate (Lexapro Oral Solution -) 10 mg GT DAILY [facility] Last Admin: 08/14/16 10:47 Dose: 10 mg Insulin Aspart (Novolog Vial Sliding Scale -) 1 vial SQ ACHS [facility] PRN Reason: Protocol Last Admin: 08/14/16 10:49 Dose: 2 units Insulin Detemir (Levemir Vial) 10 units SQ HS [facility] Last Admin: 08/13/16 22:15 Dose: 10 units Mirtazapine (Remeron -) 30 mg PO HS [facility] Last Admin: 08/13/16 22:14 Dose: 30 mg Multivitamins (Thera-Plus -) 5 ml GT DAILY [facility] Last Admin: 08/14/16 10:48 Dose: 5 ml Olanzapine (Zyprexa -) 5 mg GT HS [facility] Last Admin: 08/13/16 22:14 Dose: 5 mg Ranitidine HCl (Zantac Oral Solution -) 150 mg GT DAILY [facility] Last Admin: 08/14/16 10:48 Dose: 150 mg - Objective Vital Signs: Vital Signs Temperature 99.2 F 08/14/16 10:40 Pulse Rate 103 H 08/14/16 10:40 Respiratory Rate 20 08/14/16 10:40 Blood Pressure 128/62 08/14/16 10:40 O2 Sat by Pulse Oximetry (%) 98 08/14/16 10:05 Constitutional: Yes: Calm HENT: Yes: Atraumatic Neck: Yes: Trachea Midline Cardiovascular: Yes: S1, S2 Respiratory: Yes: Diminished Labs: CBC, BMP 08/12/16 06:11 08/14/16 07:00 INR, PTT INR 0.99 (0.82-1.09) 08/02/16 10:01 Assessment/Plan 80 y/o female, with stable CKD3, multiple epidoses of GIANNI's , DM2, Hypertension , jonh AKA, Hypernatremia. The Hypernatremia seems improving. Gtube feeding well tolerated. No specific changes in therapy made at this time. Aysha Reese MD
[2016-08-14] MEDS: ACETAMINOPHEN 650 MG/20.3 ML ORAL SOLUTION (CUPS) GT PRN (15:06)
--- NOTE | 2016-08-14 16:40 | PN ---
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, Physician Chief Complaint: ASLEEP, NAD MEDICATIONS REVIEWED AND ADJUSTED - Current Medication List Current Medications: Active Medications Acetaminophen (Tylenol Oral Solution -) 650 mg GT Q6H PRN PRN Reason: FEVER OR PAIN Last Admin: 08/14/16 15:06 Dose: 650 mg Collagenase (Santyl -) 1 applic TP DAILY [facility] Last Admin: 08/14/16 10:48 Dose: Not Given Doxazosin Mesylate (Cardura -) 2 mg GT HS [facility] Enoxaparin Sodium (Lovenox -) 40 mg SQ BID [facility] Last Admin: 08/14/16 10:48 Dose: 40 mg Escitalopram Oxalate (Lexapro Oral Solution -) 10 mg GT DAILY [facility] Last Admin: 08/14/16 10:47 Dose: 10 mg Insulin Aspart (Novolog Vial Sliding Scale -) 1 vial SQ ACHS [facility] PRN Reason: Protocol Last Admin: 08/14/16 10:49 Dose: 2 units Insulin Detemir (Levemir Vial) 10 units SQ HS [facility] Last Admin: 08/13/16 22:15 Dose: 10 units Mirtazapine (Remeron -) 30 mg PO HS [facility] Last Admin: 08/13/16 22:14 Dose: 30 mg Multivitamins (Thera-Plus -) 5 ml GT DAILY [facility] Last Admin: 08/14/16 10:48 Dose: 5 ml Olanzapine (Zyprexa -) 5 mg GT HS [facility] Last Admin: 08/13/16 22:14 Dose: 5 mg Ranitidine HCl (Zantac Oral Solution -) 150 mg GT DAILY [facility] Last Admin: 08/14/16 10:48 Dose: 150 mg - Objective Vital Signs: Vital Signs Temperature 99.2 F 08/14/16 10:40 Pulse Rate 103 H 08/14/16 10:40 Respiratory Rate 20 08/14/16 10:40 Blood Pressure 128/62 08/14/16 10:40 O2 Sat by Pulse Oximetry (%) 99 08/14/16 10:45 Constitutional: Yes: Mild Distress Eyes: Yes: WNL HENT: Yes: WNL Neck: Yes: WNL Cardiovascular: Yes: WNL Respiratory: Yes: WNL Gastrointestinal: Yes: WNL Genitourinary: Yes: Incontinence Musculoskeletal: Yes: Muscle Weakness Extremities: Yes: Amputation Edema: No Wound/Incision: Yes: Clean/Dry Neurological: Yes: Pre-Existing Deficit ...Motor Strength: LLE, RLE (AMPUTATION) Psychiatric: Yes: Other Labs: CBC, BMP 08/12/16 06:11 08/14/16 07:00 INR, PTT INR 0.99 (0.82-1.09) 08/02/16 10:01 Assessment/Plan SACRAL ULCER STAGE 3-[address] OFF ABX STILL WITH FEVERS WILL NEED DEBRIDEMENT LIKELY WITH ABX PLAY THERAPIST DISCUSS WITH ID
[2016-08-14] MEDS: INSULIN DETEMIR 100 UNITS/ML MDV SQ SCH (22:15)
[2016-08-14] MEDS: OLANZapine 5 MG TABLET GT SCH (22:16)
[2016-08-14] MEDS: MIRTAZAPINE 30 MG TABLET (FP) PO SCH (22:16)
[2016-08-15] MEDS: ACETAMINOPHEN 650 MG/20.3 ML ORAL SOLUTION (CUPS) GT PRN (05:07)
[2016-08-15] MEDS: SODIUM CHLORIDE 250 ML IV SCH ×2 (06:30→08:38)
[2016-08-15] MEDS: INSULIN SLIDING SCALE (NOVOLOG) 1 VIAL SQ SCH ×4 (06:56→21:43)
[2016-08-15] MEDS ORDERED: PIPERACILLIN/TAZOB 2.25 GM 2.25 GM in DEXTROSE 5%-WATER - 50 ML IVPB SCH (07:00)
[2016-08-15] MEDS ORDERED: PIPERACILLIN/TAZOB 2.25 GM/50 ML PRE-DOCKED BAG IVPB ONE (07:15)
[2016-08-15 09:29] LABS: MCH 30.5 pg (25.7-33.7); MEAN CELL VOLUME 92.2 fl (80-96); MEAN PLT VOLUME 7.7 fl (7.5-11.1); PLATELET COUNT 304 K/MM3 (134-434); RDW 17.5 % (11.6-15.6); WHITE BLOOD COUNT 9.4 K/mm3 (4.0-10.0)
[2016-08-15 09:57] LABS: ANION GAP 7 (8-16); BILIRUBIN,TOTAL 0.3 mg/dL (0.2-1.0); CALCIUM 9.6 mg/dL (8.5-10.1); CO2 33 mmol/L (21-32); COCKROFT - GAULT 34.6545; CREATININE 0.9 mg/dL (0.55-1.02); GLUCOSE,RANDOM 257 mg/dL (74-106); SGOT/AST 15 U/L (15-37); SGPT/ALT 15 U/L (12-78); TOT PROT 7.7 g/dl (6.4-8.2)
[2016-08-15 09:58] LABS: ALK PHOS 131 U/L (45-117)
[2016-08-15] MEDS ORDERED: PT OWN MED DRAWER 7, Y5N ONE (10:26)
[2016-08-15] MEDS: ENOXAPARIN NA (PORCINE) 40 MG/0.4 ML DISP.SYRIN SQ SCH ×2 (10:28→21:42)
[2016-08-15] MEDS: ESCITALOPRAM OXALATE 5 MG/5 ML GT SCH (10:29)
[2016-08-15] MEDS: MULTIVITAMINS LIQUID THERAPEUTIC 118 ML BOT GT SCH (10:29)
[2016-08-15] MEDS: RANITIDINE HCL 150 MG/10 ML UNIT-DOSE CUP GT SCH (10:30)
[2016-08-15] MEDS: COLLAGENASE CLOSTRIDIUM HIST. 30 GRAMS TUBE TP SCH (11:52)
[2016-08-15] MEDS ORDERED: INSULIN (NOVOLOG) ASPART 100 UNITS/ML 10ML VIAL ONE ×2 (16:56→21:41)
--- NOTE | 2016-08-15 18:36 | PN ---
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, Physician Chief Complaint: ASLEEP NO CHANGE - Current Medication List Current Medications: Active Medications Acetaminophen (Tylenol Oral Solution -) 650 mg GT Q6H PRN PRN Reason: FEVER OR PAIN Last Admin: 08/15/16 05:07 Dose: 650 mg Collagenase (Santyl -) 1 applic TP DAILY [facility] Last Admin: 08/15/16 11:52 Dose: Not Given Doxazosin Mesylate (Cardura -) 2 mg GT HS [facility] Enoxaparin Sodium (Lovenox -) 40 mg SQ BID [facility] Last Admin: 08/15/16 10:28 Dose: 40 mg Escitalopram Oxalate (Lexapro Oral Solution -) 10 mg GT DAILY [facility] Last Admin: 08/15/16 10:29 Dose: 10 mg Piperacillin Sod/Tazobactam (Sod 2.25 gm/ Dextrose) 50 mls @ 100 mls/hr IVPB Q8H-IV [facility] PRN Reason: Protocol Insulin Aspart (Novolog Vial Sliding Scale -) 1 vial SQ ACHS [facility] PRN Reason: Protocol Last Admin: 08/15/16 16:52 Dose: 4 units Insulin Detemir (Levemir Vial) 10 units SQ HS [facility] Last Admin: 08/14/16 22:15 Dose: 10 units Mirtazapine (Remeron -) 30 mg PO HS [facility] Last Admin: 08/14/16 22:16 Dose: 30 mg Multivitamins (Thera-Plus -) 5 ml GT DAILY [facility] Last Admin: 08/15/16 10:29 Dose: 5 ml Olanzapine (Zyprexa -) 5 mg GT HS [facility] Last Admin: 08/14/16 22:16 Dose: 5 mg Ranitidine HCl (Zantac Oral Solution -) 150 mg GT DAILY [facility] Last Admin: 08/15/16 10:30 Dose: 150 mg - Objective Vital Signs: Vital Signs Temperature 98.2 F 08/15/16 16:11 Pulse Rate 90 08/15/16 16:11 Respiratory Rate 20 08/15/16 14:38 Blood Pressure 120/60 08/15/16 16:11 O2 Sat by Pulse Oximetry (%) 99 08/14/16 21:00 Constitutional: Yes: No Distress Eyes: Yes: WNL HENT: Yes: WNL Neck: Yes: WNL Cardiovascular: Yes: WNL Respiratory: Yes: WNL Gastrointestinal: Yes: WNL Genitourinary: Yes: Incontinence Musculoskeletal: Yes: Muscle Weakness Extremities: Yes: Deformity Edema: No Peripheral Pulses WNL: Yes Integumentary: Yes: WNL Wound/Incision: Yes: Clean/Dry Neurological: Yes: Pre-Existing Deficit ...Motor Strength: LLE, RLE Labs: CBC, BMP 08/15/16 09:15 08/15/16 09:15 INR, PTT INR 0.99 (0.82-1.09) 08/02/16 10:01 Assessment/Plan SACRAL ULCER STAGE 3-[address] OFF ABX STILL WITH FEVERS ID F/U WILL NEED DEBRIDEMENT LIKELY WITH ABX [facility] DISCUSS WITH ID
[2016-08-15] MEDS: INSULIN DETEMIR 100 UNITS/ML MDV SQ SCH (21:40)
[2016-08-15] MEDS: DOXAZOSIN MESYLATE 2 MG TABLET (FP) GT SCH (21:41)
[2016-08-15] MEDS: MIRTAZAPINE 30 MG TABLET (FP) PO SCH (21:42)
[2016-08-15] MEDS: OLANZapine 5 MG TABLET GT SCH (21:42)
[2016-08-16] MEDS: ACETAMINOPHEN 650 MG/20.3 ML ORAL SOLUTION (CUPS) GT PRN ×3 (01:51→23:50)
[2016-08-16] MEDS ORDERED: INSULIN (NOVOLOG) ASPART 100 UNITS/ML 10ML VIAL ONE ×3 (06:26→17:32)
[2016-08-16] MEDS: INSULIN SLIDING SCALE (NOVOLOG) 1 VIAL SQ SCH ×4 (06:26→21:13)
--- NOTE | 2016-08-16 09:48 | PN ---
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, Physician History of Present Illness: 80yo Female patient with extensive medical history which includes HTN, DM, HLD, GERD bilateral BKA presents to ED via EMS from [facility] for evaluation of fever - Current Medication List Current Medications: Active Medications Acetaminophen (Tylenol Oral Solution -) 650 mg GT Q6H PRN PRN Reason: FEVER OR PAIN Last Admin: 08/16/16 01:51 Dose: 650 mg Collagenase (Santyl -) 1 applic TP DAILY [facility] Last Admin: 08/15/16 11:52 Dose: Not Given Doxazosin Mesylate (Cardura -) 2 mg GT HS [facility] Last Admin: 08/15/16 21:41 Dose: 2 mg Enoxaparin Sodium (Lovenox -) 40 mg SQ BID [facility] Last Admin: 08/15/16 21:42 Dose: 40 mg Escitalopram Oxalate (Lexapro Oral Solution -) 10 mg GT DAILY [facility] Last Admin: 08/15/16 10:29 Dose: 10 mg Piperacillin Sod/Tazobactam (Sod 2.25 gm/ Dextrose) 50 mls @ 100 mls/hr IVPB Q8H-IV [facility] PRN Reason: Protocol Insulin Aspart (Novolog Vial Sliding Scale -) 1 vial SQ ACHS [facility] PRN Reason: Protocol Last Admin: 08/16/16 06:26 Dose: 6 units Insulin Detemir (Levemir Vial) 10 units SQ HS [facility] Last Admin: 08/15/16 21:40 Dose: 10 units Mirtazapine (Remeron -) 30 mg PO HS [facility] Last Admin: 08/15/16 21:42 Dose: 30 mg Multivitamins (Thera-Plus -) 5 ml GT DAILY [facility] Last Admin: 08/15/16 10:29 Dose: 5 ml Olanzapine (Zyprexa -) 5 mg GT HS [facility] Last Admin: 08/15/16 21:42 Dose: 5 mg Ranitidine HCl (Zantac Oral Solution -) 150 mg GT DAILY [facility] Last Admin: 08/15/16 10:30 Dose: 150 mg - Objective Vital Signs: Vital Signs Temperature 99.0 F 08/16/16 09:03 Pulse Rate 99 H 08/16/16 09:03 Respiratory Rate 18 08/16/16 09:03 Blood Pressure 98/54 08/16/16 09:03 O2 Sat by Pulse Oximetry (%) 99 08/14/16 21:00 Cardiovascular: Yes: S1, S2 Respiratory: Yes: Diminished Gastrointestinal: Yes: Normal Bowel Sounds, Soft. No: Tenderness Extremities: Yes: Amputation Labs: CBC, BMP 08/15/16 09:15 08/15/16 09:15 INR, PTT INR 0.99 (0.82-1.09) 08/02/16 10:01 Problem List - Problems (1) UTI (urinary tract infection) Assessment/Plan: ABX PER ID REPEAT CULTURES ID ON CASE Code(s): N39.0 - URINARY TRACT INFECTION, SITE NOT SPECIFIED Qualifiers: Qualified Code(s): N39.0 - Urinary tract infection, site not specified (2) ARF (acute renal failure) Assessment/Plan: MONITOR ON CURRENT FLUIDS DC IVF FLUIDS VIA PEG Code(s): N17.9 - ACUTE KIDNEY FAILURE, UNSPECIFIED (3) Acute bilateral deep vein thrombosis (DVT) of femoral veins Assessment/Plan: LOVENOX Code(s): I82.413 - ACUTE EMBOLISM AND THROMBOSIS OF FEMORAL VEIN, BILATERAL (4) Aortic stenosis Assessment/Plan: CARDIO Code(s): I35.0 - NONRHEUMATIC AORTIC (VALVE) STENOSIS Qualifiers: Qualified Code(s): I35.0 - Nonrheumatic aortic (valve) stenosis (5) Decubitus ulcer Assessment/Plan: SURGICAL F/U VAC PER SURGERY ABX PER ID Code(s): L89.90 - PRESSURE ULCER OF UNSPECIFIED SITE, UNSPECIFIED STAGE (6) Fever Assessment/Plan: LOW GRADE--RECULTURE ID FOLLOW UP Code(s): R50.9 - FEVER, UNSPECIFIED (7) Type 2 diabetes mellitus with other diabetic kidney complication Assessment/Plan: BGM Code(s): E11.29 - TYPE 2 DIABETES MELLITUS W OTH DIABETIC KIDNEY COMPLICATION
[2016-08-16 10:00] LABS: BASOPHIL 0.3 % (0-2.0); EOSINOPHIL 1.4 % (0-4.5); MCH 30.5 pg (25.7-33.7); MCHC 33.2 g/dl (32.0-36.0); MEAN CELL VOLUME 91.7 fl (80-96); MEAN PLT VOLUME 8.3 fl (7.5-11.1); NEUTROPHILS 57.3 % (42.8-82.8); PLATELET COUNT 285 K/MM3 (134-434); RDW 17.5 % (11.6-15.6); WHITE BLOOD COUNT 8.6 K/mm3 (4.0-10.0)
[2016-08-16 10:23] LABS: ANION GAP 7 (8-16); BILIRUBIN,TOTAL 0.3 mg/dL (0.2-1.0); CALCIUM 9.9 mg/dL (8.5-10.1); CO2 34 mmol/L (21-32); COCKROFT - GAULT 34.5695; CREATININE 0.9 mg/dL (0.55-1.02); GLUCOSE,RANDOM 258 mg/dL (74-106); SGOT/AST 17 U/L (15-37); SGPT/ALT 19 U/L (12-78); TOT PROT 7.9 g/dl (6.4-8.2)
[2016-08-16 10:24] LABS: ALK PHOS 132 U/L (45-117)
[2016-08-16] MEDS ORDERED: PT OWN MED DRAWER 7, Y5N ONE ×2 (10:30→20:54)
[2016-08-16] MEDS: ESCITALOPRAM OXALATE 5 MG/5 ML GT SCH (10:39)
[2016-08-16] MEDS: ENOXAPARIN NA (PORCINE) 40 MG/0.4 ML DISP.SYRIN SQ SCH ×2 (10:39→21:19)
[2016-08-16] MEDS: MULTIVITAMINS LIQUID THERAPEUTIC 118 ML BOT GT SCH (10:40)
[2016-08-16] MEDS: RANITIDINE HCL 150 MG/10 ML UNIT-DOSE CUP GT SCH (10:40)
[2016-08-16] MEDS: COLLAGENASE CLOSTRIDIUM HIST. 30 GRAMS TUBE TP SCH (10:40)
--- NOTE | 2016-08-16 14:43 | PN ---
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, Physician Chief Complaint: The patient seen in the bed. Poorly responsive. G Tube feeding well tolerated. Good urine output. - Current Medication List Current Medications: Active Medications Acetaminophen (Tylenol Oral Solution -) 650 mg GT Q6H PRN PRN Reason: FEVER OR PAIN Last Admin: 08/16/16 11:00 Dose: 650 mg Collagenase (Santyl -) 1 applic TP DAILY [facility] Last Admin: 08/16/16 10:40 Dose: Not Given Doxazosin Mesylate (Cardura -) 2 mg GT HS [facility] Last Admin: 08/15/16 21:41 Dose: 2 mg Enoxaparin Sodium (Lovenox -) 40 mg SQ BID [facility] Last Admin: 08/16/16 10:39 Dose: 40 mg Escitalopram Oxalate (Lexapro Oral Solution -) 10 mg GT DAILY [facility] Last Admin: 08/16/16 10:39 Dose: 10 mg Piperacillin Sod/Tazobactam (Sod 2.25 gm/ Dextrose) 50 mls @ 100 mls/hr IVPB Q8H-IV [facility] PRN Reason: Protocol Insulin Aspart (Novolog Vial Sliding Scale -) 1 vial SQ ACHS [facility] PRN Reason: Protocol Last Admin: 08/16/16 12:10 Dose: 4 units Insulin Detemir (Levemir Vial) 10 units SQ HS [facility] Last Admin: 08/15/16 21:40 Dose: 10 units Mirtazapine (Remeron -) 30 mg PO HS [facility] Last Admin: 08/15/16 21:42 Dose: 30 mg Multivitamins (Thera-Plus -) 5 ml GT DAILY [facility] Last Admin: 08/16/16 10:40 Dose: 5 ml Olanzapine (Zyprexa -) 5 mg GT HS [facility] Last Admin: 08/15/16 21:42 Dose: 5 mg Ranitidine HCl (Zantac Oral Solution -) 150 mg GT DAILY [facility] Last Admin: 08/16/16 10:40 Dose: 150 mg - Objective Vital Signs: Vital Signs Temperature 97.5 F L 08/16/16 12:14 Pulse Rate 99 H 08/16/16 09:03 Respiratory Rate 18 08/16/16 09:03 Blood Pressure 98/54 08/16/16 09:03 O2 Sat by Pulse Oximetry (%) 99 08/14/16 21:00 Constitutional: Yes: No Distress HENT: No: Nasal Congestion Cardiovascular: Yes: S1, S2 Respiratory: Yes: CTA Bilaterally Gastrointestinal: Yes: Other (G tube feeding in progress.) Genitourinary: No: Bladder Distention Labs: CBC, BMP 08/16/16 09:30 08/16/16 09:30 INR, PTT INR 0.99 (0.82-1.09) 08/02/16 10:01 Assessment/Plan 80 y/o female, with stable CKD3, multiple epidoses of GIANNI's , DM2, Hypertension , jonh AKA, The serum Electrolytes in fairly acceptable range. minimal tendency for Hypernatremia. Gtube feeding well tolerated. Will continue the same. No specific changes in therapy made at this time. Aysha Reese MD
--- NOTE | 2016-08-16 15:05 | CON.CARD ---
Consult Consult Specialty:: Cardiology Referred by:: Dr Garcia Reason for Consultation:: - History of Present Illness Chief Complaint: fever History of Present Illness: 80 year old female with a PMH of HTN, DM, HLD, GERD, CVA's, PVD with bilateral BKA's, COPD, history of DVT's, past episodes of sepsis secondary to UTI's, and h /o infected sacral decubs status post debridement. has feeding tube. An echocardiogram performed on 07/01/16 showed normal LV function with moderate aortic stenosis. She presents now from the [facility] with fever. Not able to give history. - History Source History Provided By: Medical Record Limitations to Obtaining History: Dementia - Past Medical History [employer]: Yes: CVA, Dementia Cardio/Vascular: Yes: Aortic Stenosis, CHF, HTN, Hyperlipdemia Pulmonary: Yes: COPD Gastrointestinal: Yes: GERD Renal/: Yes: Renal Inusuff Endocrine: Yes: Diabetes Mellitus - Past Surgical History Additional Surgical History: S/P sacral decub debridement - Alcohol/Substance Use Hx Alcohol Use: No - Smoking History Smoking history: Unknown if ever smoked Have you smoked in the past 12 months: No Aproximately how many cigarettes per day: 0 - Social History Usual Living Arrangement: Longterm History of Recent Travel: No Home Medications - Allergies Allergies/Adverse Reactions: Allergies Allergy/AdvReac Type Severity Reaction Status Date / Time No Known Drug Allergies Allergy Verified 08/02/16 09:32 - Home Medications Home Medications: Ambulatory Orders Aa/Waddell Ivone,Whey/Arg/C/Zn/Cu [Lps Critical Care Liquid] 960 ml GT BID Acetaminophen [Tylenol] 325 mg GT Q6H PRN 08/02/16 Albuterol 0.083% Nebulizer Elena [Ventolin 0.083%] 1 neb NEB QID 08/02/16 Ascorbate Calcium [Vitamin C] 500 mg GT TID 08/02/16 Darbepoetin Joseph in Polysorbat [Aranesp] 25 mcg SCJ WEEKLY 08/02/16 Enoxaparin Sodium [Lovenox] 60 mg SQ Q12H 08/02/16 Fentanyl 1 each TD Q72H 08/02/16 Ferrous Sulfate 325 mg GT TID 08/02/16 Insulin Glargine,Hum.rec.anlog [Lantus Solostar PEN (NF)] 12 units SQ DAILY 11/11 Insulin Lispro [Humalog] 16 unit SQ DAILY 08/02/16 Insulin Lispro [Humalog] 100 unit SQ TID 08/02/16 Ipratropium 0.02% Nebulizer [Atrovent] 1 neb NEB Q6H 08/02/16 Metoprolol Tartrate 50 mg GT BID 08/02/16 Mirtazapine [Remeron -] 30 mg PO DAILY 08/02/16 Olanzapine [Zyprexa] 5 mg GT BID 08/02/16 Omeprazole Magnesium [Prilosec] 20 mg GT DAILY 08/02/16 Sennosides [Senna Concentrate] 8.6 mg GT DAILY 08/02/16 Simvastatin 20 mg GT DAILY 08/02/16 Sodium Bicarbonate 650 mg GT BID 08/02/16 Tamsulosin HCl 0.8 mg GT DAILY 08/02/16 Tamsulosin HCl [Flomax] 0.8 mg GT DAILY #20 cap.er.24h 08/02/16 Vitamin B Comp W-C [Nephro-Rafael] 1 ea GT DAILY 08/02/16 Zinc Sulfate 220 mg GT DAILY 08/02/16 Review of Systems Unable to obtain ROS, reason: dementia Vital Signs: Vital Signs Temperature 97.5 F L 08/16/16 12:14 Pulse Rate 97 H 08/16/16 14:49 Respiratory Rate 18 08/16/16 09:03 Blood Pressure 114/59 08/16/16 14:49 O2 Sat by Pulse Oximetry (%) 99 08/14/16 21:00 Constitutional: Yes: No Distress Eyes: Yes: WNL HENT: Yes: Atraumatic, Normocephalic Neck: Yes: Supple, Trachea Midline Respiratory: Yes: CTA Bilaterally Gastrointestinal: Yes: Normal Bowel Sounds Cardiovascular: Yes: Regular Rate and Rhythm JVD: No Carotid Bruit: No PMI: Non-Displaced Heart Sounds: Yes: S1, S2 Murmur: Yes: Systolic Murmur, Grade 2 Edema: No Peripheral Pulses WNL: No - Other Data Labs, Other Data: CBC, BMP 08/16/16 09:30 08/16/16 09:30 INR, PTT INR 0.99 (0.82-1.09) 08/02/16 10:01 Assessment/Plan Aortic stenosis is moderate at worst. Her poor mental status precludes further workup. No symptoms. Will see prn.
[2016-08-16] MEDS: INSULIN DETEMIR 100 UNITS/ML MDV SQ SCH (21:14)
[2016-08-16] MEDS: OLANZapine 5 MG TABLET GT SCH (21:19)
[2016-08-16] MEDS: MIRTAZAPINE 30 MG TABLET (FP) PO SCH (21:19)
[2016-08-16] MEDS: DOXAZOSIN MESYLATE 2 MG TABLET (FP) GT SCH (21:19)
[2016-08-17] MEDS ORDERED: INSULIN (NOVOLOG) ASPART 100 UNITS/ML 10ML VIAL ONE ×3 (06:26→21:11)
[2016-08-17] MEDS: INSULIN SLIDING SCALE (NOVOLOG) 1 VIAL SQ SCH ×4 (06:37→21:14)
--- NOTE | 2016-08-17 09:32 | PN ---
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, Physician History of Present Illness: 80yo Female patient with extensive medical history which includes HTN, DM, HLD, GERD bilateral BKA presents to ED via EMS from [facility] for evaluation of fever - Current Medication List Current Medications: Active Medications Acetaminophen (Tylenol Oral Solution -) 650 mg GT Q6H PRN PRN Reason: FEVER OR PAIN Last Admin: 08/16/16 23:50 Dose: 650 mg Collagenase (Santyl -) 1 applic TP DAILY [facility] Last Admin: 08/16/16 10:40 Dose: Not Given Doxazosin Mesylate (Cardura -) 2 mg GT HS [facility] Last Admin: 08/16/16 21:19 Dose: 2 mg Enoxaparin Sodium (Lovenox -) 40 mg SQ BID [facility] Last Admin: 08/16/16 21:19 Dose: 40 mg Escitalopram Oxalate (Lexapro Oral Solution -) 10 mg GT DAILY [facility] Last Admin: 08/16/16 10:39 Dose: 10 mg Piperacillin Sod/Tazobactam (Sod 2.25 gm/ Dextrose) 50 mls @ 100 mls/hr IVPB Q8H-IV [facility] PRN Reason: Protocol Insulin Aspart (Novolog Vial Sliding Scale -) 1 vial SQ ACHS [facility] PRN Reason: Protocol Last Admin: 08/17/16 06:37 Dose: 4 units Insulin Detemir (Levemir Vial) 10 units SQ HS [facility] Last Admin: 08/16/16 21:14 Dose: 10 units Mirtazapine (Remeron -) 30 mg PO HS [facility] Last Admin: 08/16/16 21:19 Dose: 30 mg Multivitamins (Thera-Plus -) 5 ml GT DAILY [facility] Last Admin: 08/16/16 10:40 Dose: 5 ml Olanzapine (Zyprexa -) 5 mg GT HS [facility] Last Admin: 08/16/16 21:19 Dose: 5 mg Ranitidine HCl (Zantac Oral Solution -) 150 mg GT DAILY [facility] Last Admin: 08/16/16 10:40 Dose: 150 mg - Objective Vital Signs: Vital Signs Temperature 100.4 F H 08/17/16 06:00 Pulse Rate 97 H 08/17/16 06:00 Respiratory Rate 18 08/17/16 06:00 Blood Pressure 134/65 08/17/16 06:00 O2 Sat by Pulse Oximetry (%) 100 08/16/16 20:23 Cardiovascular: Yes: S1, S2 Respiratory: Yes: Diminished Gastrointestinal: Yes: Normal Bowel Sounds, Soft Labs: CBC, BMP 08/16/16 09:30 08/16/16 09:30 INR, PTT INR 0.99 (0.82-1.09) 08/02/16 10:01 Problem List - Problems (1) UTI (urinary tract infection) Code(s): N39.0 - URINARY TRACT INFECTION, SITE NOT SPECIFIED Qualifiers: Qualified Code(s): N39.0 - Urinary tract infection, site not specified (2) ARF (acute renal failure) Code(s): N17.9 - ACUTE KIDNEY FAILURE, UNSPECIFIED (3) Acute bilateral deep vein thrombosis (DVT) of femoral veins Code(s): I82.413 - ACUTE EMBOLISM AND THROMBOSIS OF FEMORAL VEIN, BILATERAL (4) Aortic stenosis Code(s): I35.0 - NONRHEUMATIC AORTIC (VALVE) STENOSIS Qualifiers: Qualified Code(s): I35.0 - Nonrheumatic aortic (valve) stenosis (5) Decubitus ulcer Code(s): L89.90 - PRESSURE ULCER OF UNSPECIFIED SITE, UNSPECIFIED STAGE (6) Fever Code(s): R50.9 - FEVER, UNSPECIFIED (7) Type 2 diabetes mellitus with other diabetic kidney complication Code(s): E11.29 - TYPE 2 DIABETES MELLITUS W H DIABETIC KIDNEY COMPLICATION Assessment/Plan Problems (1) UTI (urinary tract infection) Assessment/Plan: off ertrapenem per id ESBL contact isolation Code(s): N39.0 - URINARY TRACT INFECTION, SITE NOT SPECIFIED Qualifiers: Qualified Code(s): N39.0 - Urinary tract infection, site not specified (2) ARF (acute renal failure) Assessment/Plan: improved Code(s): N17.9 - ACUTE KIDNEY FAILURE, UNSPECIFIED (3) Decubitus ulcer Assessment/Plan: wound care team on board wound vac Code(s): L89.90 - PRESSURE ULCER OF UNSPECIFIED SITE, UNSPECIFIED STAGE (4) Dementia Assessment/Plan: zyprexa nameda remeron Code(s): F03.90 - UNSPECIFIED DEMENTIA WITHOUT BEHAVIORAL DISTURBANCE (5) Fever Assessment/Plan: low grade on abx cultures done wound evaluated by surgery cxr nad id --follow up Assessment/Plan lovenox for DVT DM bgm noted dec the insulin dose
[2016-08-17] MEDS ORDERED: PT OWN MED DRAWER 7, Y5N ONE (09:40)
[2016-08-17] MEDS: ACETAMINOPHEN 650 MG/20.3 ML ORAL SOLUTION (CUPS) GT PRN ×2 (09:45→17:47)
[2016-08-17] MEDS: ENOXAPARIN NA (PORCINE) 40 MG/0.4 ML DISP.SYRIN SQ SCH ×2 (09:45→21:15)
[2016-08-17] MEDS: MULTIVITAMINS LIQUID THERAPEUTIC 118 ML BOT GT SCH (09:46)
[2016-08-17] MEDS: ESCITALOPRAM OXALATE 5 MG/5 ML GT SCH (09:46)
[2016-08-17] MEDS: RANITIDINE HCL 150 MG/10 ML UNIT-DOSE CUP GT SCH (09:46)
[2016-08-17] MEDS: COLLAGENASE CLOSTRIDIUM HIST. 30 GRAMS TUBE TP SCH (09:55)
--- NOTE | 2016-08-17 12:48 | PN ---
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, Physician History of Present Illness: Persistant temp elevation noted Pt noted to be diaphoretic by staff No rigors Breathing non-labored WBC WNL CXR no acute infiltrate - Current Medication List Current Medications: Active Medications Acetaminophen (Tylenol Oral Solution -) 650 mg GT Q6H PRN PRN Reason: FEVER OR PAIN Last Admin: 08/17/16 09:45 Dose: 650 mg Collagenase (Santyl -) 1 applic TP DAILY [facility] Last Admin: 08/17/16 09:55 Dose: Not Given Doxazosin Mesylate (Cardura -) 2 mg GT HS [facility] Last Admin: 08/16/16 21:19 Dose: 2 mg Enoxaparin Sodium (Lovenox -) 40 mg SQ BID [facility] Last Admin: 08/17/16 09:45 Dose: 40 mg Escitalopram Oxalate (Lexapro Oral Solution -) 10 mg GT DAILY [facility] Last Admin: 08/17/16 09:46 Dose: 10 mg Piperacillin Sod/Tazobactam (Sod 2.25 gm/ Dextrose) 50 mls @ 100 mls/hr IVPB Q8H-IV [facility] PRN Reason: Protocol Insulin Aspart (Novolog Vial Sliding Scale -) 1 vial SQ ACHS [facility] PRN Reason: Protocol Last Admin: 08/17/16 11:52 Dose: 6 units Insulin Detemir (Levemir Vial) 10 units SQ HS [facility] Last Admin: 08/16/16 21:14 Dose: 10 units Mirtazapine (Remeron -) 30 mg PO HS [facility] Last Admin: 08/16/16 21:19 Dose: 30 mg Multivitamins (Thera-Plus -) 5 ml GT DAILY [facility] Last Admin: 08/17/16 09:46 Dose: 5 ml Olanzapine (Zyprexa -) 5 mg GT HS [facility] Last Admin: 08/16/16 21:19 Dose: 5 mg Ranitidine HCl (Zantac Oral Solution -) 150 mg GT DAILY [facility] Last Admin: 08/17/16 09:46 Dose: 150 mg - Objective Vital Signs: Vital Signs Temperature 100.7 F H 08/17/16 09:00 Pulse Rate 97 H 08/17/16 09:00 Respiratory Rate 18 08/17/16 09:00 Blood Pressure 103/49 08/17/16 09:00 O2 Sat by Pulse Oximetry (%) 100 08/16/16 20:23 Constitutional: Yes: No Distress Eyes: Yes: Conjunctiva Clear Cardiovascular: Yes: Regular Rate and Rhythm, S1, S2 Respiratory: Yes: Diminished Gastrointestinal: Yes: Normal Bowel Sounds, Soft, Other (+GT). No: Tenderness Extremities: Yes: Other (S/P bilateral BKA) Integumentary: Yes: Other (Stage IV sacral decubitus No drainage or foul odor) Labs: CBC, BMP 08/16/16 09:30 08/16/16 09:30 INR, PTT INR 0.99 (0.82-1.09) 08/02/16 10:01 Assessment/Plan S/P UTI/ Sepsis secondary to UTI v. 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 source Stage IV sacral decubitus Hx ESBL OBS Reculture Continue empiric zosyn
[2016-08-17] MEDS: PIPERACILLIN/TAZOB 3.375 GM 50 ML IVPB SCH ×2 (14:12→21:17)
[2016-08-17 15:44] LABS: URINE APPEARANCE TURBID; URINE BILIRUBIN NEGATIVE (NEGATIVE); URINE COLOR AMBER; URINE GLUCOSE (UA) NEGATIVE (NEGATIVE); URINE KETONE NEGATIVE (NEGATIVE); URINE NITRITE NEGATIVE (NEGATIVE); URINE PROTEIN NEGATIVE (NEGATIVE); URINE UROBILINOGEN NEGATIVE E.U./dl (0.2-1.0)
[2016-08-17 15:46] LABS: URINE BLOOD 1+ (NEGATIVE); URINE LEUK ESTERASE 3+ (NEGATIVE)
--- NOTE | 2016-08-17 16:51 | PN ---
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 (short form) - Note 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: Renal Follow up for hypernatermia and CKD Pt seen and examined at the bedside Febrile awake but not verbal diaphoretic as per nursing staff no distress Vital Signs Temperature 100.9 F H 08/17/16 14:00 Pulse Rate 101 H 08/17/16 14:00 Respiratory Rate 22 08/17/16 14:00 Blood Pressure 96/56 08/17/16 14:00 O2 Sat by Pulse Oximetry (%) 100 08/17/16 09:00 Intake & Output 08/14/16 08/15/16 08/16/16 08/17/16 23:59 23:59 23:59 23:59 Intake Total 890 2209 1317 880 Output Total 500 200 Balance 390 2209 1317 680 Weight 98 lb 95 lb 8 oz 95 lb 4 oz 97 lb 2 oz Gen: NAD CVS: RRR, No M/R Lungs: CTA Abd: Soft NT/ND. Feeding tube in place Ext: No edema, b/l BKA CBC, BMP 08/16/16 09:30 08/16/16 09:30 Laboratory Tests 08/16/16 09:30 Calcium 9.9 Albumin 2.0 L Current Medications Acetaminophen (Tylenol Oral Solution -) 650 mg GT Q6H PRN PRN Reason: FEVER OR PAIN Last Admin: 08/17/16 09:45 Dose: 650 mg Collagenase (Santyl -) 1 applic TP DAILY [facility] Last Admin: 08/17/16 09:55 Dose: Not Given Doxazosin Mesylate (Cardura -) 2 mg GT HS [facility] Last Admin: 08/16/16 21:19 Dose: 2 mg Enoxaparin Sodium (Lovenox -) 40 mg SQ BID [facility] Last Admin: 08/17/16 09:45 Dose: 40 mg Escitalopram Oxalate (Lexapro Oral Solution -) 10 mg GT DAILY [facility] Last Admin: 08/17/16 09:46 Dose: 10 mg Piperacillin Sod/Tazobactam Sod (Zosyn 3.375gm Ivpb (Pre-Docked)) 50 mls @ 100 mls/hr IVPB Q8H-IV [facility] PRN Reason: Protocol Last Admin: 08/17/16 14:12 Dose: 100 mls/hr Insulin Aspart (Novolog Vial Sliding Scale -) 1 vial SQ ACHS [facility] PRN Reason: Protocol Last Admin: 08/17/16 11:52 Dose: 6 units Insulin Detemir (Levemir Vial) 10 units SQ HS [facility] Last Admin: 08/16/16 21:14 Dose: 10 units Mirtazapine (Remeron -) 30 mg PO HS [facility] Last Admin: 08/16/16 21:19 Dose: 30 mg Multivitamins (Thera-Plus -) 5 ml GT DAILY [facility] Last Admin: 08/17/16 09:46 Dose: 5 ml Olanzapine (Zyprexa -) 5 mg GT HS [facility] Last Admin: 08/16/16 21:19 Dose: 5 mg Ranitidine HCl (Zantac Oral Solution -) 150 mg GT DAILY [facility] Last Admin: 08/17/16 09:46 Dose: 150 mg A/P 80 year old woman with PMhx of Multiple GIANNI's, Hypernatremia, Hypertension, DM, HLD, GERD, PVD s/p b/l BKA who presented from CT with Fever and found to have Na of 150 and Cr of 1.1. #Hypernatremia and Hyperkalemia electrolytes now WNL on tube feeds and free water will increase water flush to 30ml per hour as per Nutrition Recs #Hypercalcemia PTH is appropriately low no acute intervention warrented Trend Ca ? Bone disease #GIANNI on CKD Renal function stable #Fever/Sacral Decubitis/Suspected UTI restarted on emperic Abx as per ID Thank you Vahid Manzano DO
[2016-08-17 17:06] LABS: URINE HYALINE CAST 13 /lpf; URINE MUCUS RARE; URINE RBC 103 /hpf (0-3); URINE WBC 750 /hpf (3-5)
[2016-08-17] MEDS: DOXAZOSIN MESYLATE 2 MG TABLET (FP) GT SCH (21:14)
[2016-08-17] MEDS: OLANZapine 5 MG TABLET GT SCH (21:14)
[2016-08-17] MEDS: MIRTAZAPINE 30 MG TABLET (FP) PO SCH (21:14)
[2016-08-17] MEDS: INSULIN DETEMIR 100 UNITS/ML MDV SQ SCH (21:15)
[2016-08-18] MEDS: PIPERACILLIN/TAZOB 3.375 GM 50 ML IVPB SCH ×3 (02:37→17:10)
[2016-08-18] MEDS: ACETAMINOPHEN 650 MG/20.3 ML ORAL SOLUTION (CUPS) GT PRN (05:57)
[2016-08-18] MEDS: INSULIN SLIDING SCALE (NOVOLOG) 1 VIAL SQ SCH ×4 (06:17→21:08)
[2016-08-18 06:59] LABS: BASOPHIL 0.3 % (0-2.0); EOSINOPHIL 2.3 % (0-4.5); MCH 30.8 pg (25.7-33.7); MCHC 33.5 g/dl (32.0-36.0); MEAN CELL VOLUME 92.1 fl (80-96); MEAN PLT VOLUME 8.6 fl (7.5-11.1); NEUTROPHILS 52.6 % (42.8-82.8); PLATELET COUNT 275 K/MM3 (134-434); RDW 17.4 % (11.6-15.6); WHITE BLOOD COUNT 9.2 K/mm3 (4.0-10.0)
[2016-08-18 07:15] LABS: CALCIUM 9.9 mg/dL (8.5-10.1); COCKROFT - GAULT 28.8405; CREATININE 1.1 mg/dL (0.55-1.02); MAGNESIUM 2.7 mg/dL (1.8-2.4); PHOSPHOROUS 3.1 mg/dL (2.5-4.9)
--- NOTE | 2016-08-18 08:59 | PN ---
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, Physician - Current Medication List Current Medications: Active Medications Acetaminophen (Tylenol Oral Solution -) 650 mg GT Q6H PRN PRN Reason: FEVER OR PAIN Last Admin: 08/18/16 05:57 Dose: 650 mg Collagenase (Santyl -) 1 applic TP DAILY [facility] Last Admin: 08/17/16 09:55 Dose: Not Given Doxazosin Mesylate (Cardura -) 2 mg GT HS [facility] Last Admin: 08/17/16 21:14 Dose: 2 mg Enoxaparin Sodium (Lovenox -) 40 mg SQ BID [facility] Last Admin: 08/17/16 21:15 Dose: 40 mg Escitalopram Oxalate (Lexapro Oral Solution -) 10 mg GT DAILY [facility] Last Admin: 08/17/16 09:46 Dose: 10 mg Piperacillin Sod/Tazobactam Sod (Zosyn 3.375gm Ivpb (Pre-Docked)) 50 mls @ 100 mls/hr IVPB Q8H-IV [facility] PRN Reason: Protocol Last Admin: 08/18/16 02:37 Dose: 100 mls/hr Insulin Aspart (Novolog Vial Sliding Scale -) 1 vial SQ ACHS [facility] PRN Reason: Protocol Last Admin: 08/18/16 06:17 Dose: 4 units Insulin Detemir (Levemir Vial) 10 units SQ HS [facility] Last Admin: 08/17/16 21:15 Dose: 10 units Mirtazapine (Remeron -) 30 mg PO HS [facility] Last Admin: 08/17/16 21:14 Dose: 30 mg Multivitamins (Thera-Plus -) 5 ml GT DAILY [facility] Last Admin: 08/17/16 09:46 Dose: 5 ml Olanzapine (Zyprexa -) 5 mg GT HS [facility] Last Admin: 08/17/16 21:14 Dose: 5 mg Ranitidine HCl (Zantac Oral Solution -) 150 mg GT DAILY [facility] Last Admin: 08/17/16 09:46 Dose: 150 mg - Objective Vital Signs: Vital Signs Temperature 101.2 F H 08/18/16 05:56 Pulse Rate 96 H 08/18/16 05:56 Respiratory Rate 18 08/18/16 05:56 Blood Pressure 119/63 08/18/16 05:56 O2 Sat by Pulse Oximetry (%) 100 08/17/16 21:00 Labs: CBC, BMP 08/18/16 05:55 08/18/16 05:55 INR, PTT INR 0.99 (0.82-1.09) 08/02/16 10:01 Problem List - Problems (1) UTI (urinary tract infection) Code(s): N39.0 - URINARY TRACT INFECTION, SITE NOT SPECIFIED Qualifiers: Qualified Code(s): N39.0 - Urinary tract infection, site not specified (2) ARF (acute renal failure) Code(s): N17.9 - ACUTE KIDNEY FAILURE, UNSPECIFIED (3) Acute bilateral deep vein thrombosis (DVT) of femoral veins Code(s): I82.413 - ACUTE EMBOLISM AND THROMBOSIS OF FEMORAL VEIN, BILATERAL (4) Aortic stenosis Code(s): I35.0 - NONRHEUMATIC AORTIC (VALVE) STENOSIS Qualifiers: Qualified Code(s): I35.0 - Nonrheumatic aortic (valve) stenosis (5) Decubitus ulcer Code(s): L89.90 - PRESSURE ULCER OF UNSPECIFIED SITE, UNSPECIFIED STAGE (6) Fever Code(s): R50.9 - FEVER, UNSPECIFIED (7) Type 2 diabetes mellitus with other diabetic kidney complication Code(s): E11.29 - TYPE 2 DIABETES MELLITUS W OTH DIABETIC KIDNEY COMPLICATION
[2016-08-18] MEDS ORDERED: PT OWN MED DRAWER 7, Y5N ONE (10:31)
[2016-08-18] MEDS ORDERED: INSULIN (NOVOLOG) ASPART 100 UNITS/ML 10ML VIAL ONE ×3 (10:32→20:55)
[2016-08-18] MEDS: SODIUM CHLORIDE 0.45%/POT 1,000 ML IV SCH (10:46)
[2016-08-18] MEDS: RANITIDINE HCL 150 MG/10 ML UNIT-DOSE CUP GT SCH (10:47)
[2016-08-18] MEDS: ESCITALOPRAM OXALATE 5 MG/5 ML GT SCH (10:47)
[2016-08-18] MEDS: COLLAGENASE CLOSTRIDIUM HIST. 30 GRAMS TUBE TP SCH (10:47)
[2016-08-18] MEDS: MULTIVITAMINS LIQUID THERAPEUTIC 118 ML BOT GT SCH (10:47)
[2016-08-18] MEDS: ENOXAPARIN NA (PORCINE) 40 MG/0.4 ML DISP.SYRIN SQ SCH (12:33)
--- NOTE | 2016-08-18 12:37 | PN ---
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, Physician History of Present Illness: Remains febrile Not conversant Breathing non-labored Cultures pending - Current Medication List Current Medications: Active Medications Acetaminophen (Tylenol Oral Solution -) 650 mg GT Q6H PRN PRN Reason: FEVER OR PAIN Last Admin: 08/18/16 05:57 Dose: 650 mg Ascorbic Acid (Vitamin C Oral Solution -) 250 mg GT DAILY [facility] Collagenase (Santyl -) 1 applic TP DAILY [facility] Last Admin: 08/18/16 10:47 Dose: Not Given Doxazosin Mesylate (Cardura -) 2 mg GT HS [facility] Last Admin: 08/17/16 21:14 Dose: 2 mg Escitalopram Oxalate (Lexapro Oral Solution -) 10 mg GT DAILY [facility] Last Admin: 08/18/16 10:47 Dose: 10 mg Piperacillin Sod/Tazobactam Sod (Zosyn 3.375gm Ivpb (Pre-Docked)) 50 mls @ 100 mls/hr IVPB Q8H-IV [facility] PRN Reason: Protocol Last Admin: 08/18/16 10:48 Dose: 100 mls/hr Potassium Chloride/Sodium Chloride (1/2ns+20meq Kcl) 1,000 mls @ 75 mls/hr IV ASDIR [facility] Last Admin: 08/18/16 10:46 Dose: 75 mls/hr Insulin Aspart (Novolog Vial Sliding Scale -) 1 vial SQ ACHS [facility] PRN Reason: Protocol Last Admin: 08/18/16 11:12 Dose: 4 units Insulin Detemir (Levemir Vial) 10 units SQ HS [facility] Last Admin: 08/17/16 21:15 Dose: 10 units Lactobacillus Acidophilus (Bacid -) 1 tab GT BID [facility] Mirtazapine (Remeron -) 30 mg PO HS [facility] Last Admin: 08/17/16 21:14 Dose: 30 mg Multivitamins (Thera-Plus -) 5 ml GT DAILY [facility] Last Admin: 08/18/16 10:47 Dose: 5 ml Olanzapine (Zyprexa -) 5 mg GT HS [facility] Last Admin: 08/17/16 21:14 Dose: 5 mg Ranitidine HCl (Zantac Oral Solution -) 150 mg GT DAILY [facility] Last Admin: 08/18/16 10:47 Dose: 150 mg - Objective Vital Signs: Vital Signs Temperature 99.7 F H 08/18/16 08:00 Pulse Rate 95 H 08/18/16 08:00 Respiratory Rate 20 08/18/16 08:00 Blood Pressure 116/53 08/18/16 08:00 O2 Sat by Pulse Oximetry (%) 100 08/18/16 08:00 Constitutional: Yes: No Distress Eyes: Yes: Conjunctiva Clear Cardiovascular: Yes: Regular Rate and Rhythm, S1, S2 Respiratory: Yes: Diminished Gastrointestinal: Yes: Normal Bowel Sounds, Soft. No: Tenderness Extremities: Yes: Other (s/p bilateral BKA) Wound/Incision: Yes: Other (sacral decubitus) Labs: CBC, BMP 08/18/16 05:55 08/18/16 05:55 INR, PTT INR 0.99 (0.82-1.09) 08/02/16 10:01 Assessment/Plan S/P UTI/ Sepsis secondary to UTI v. 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 source Stage IV sacral decubitus Hx ESBL OBS Cultures pending Continue empiric zosyn
--- NOTE | 2016-08-18 14:12 | PN ---
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 (short form) - Note 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: Renal Follow up for hypernatermia and CKD Pt seen and examined at the bedside remains febrile NAD but groggy Vital Signs Temperature 98.3 F 08/18/16 13:50 Pulse Rate 104 H 08/18/16 13:50 Respiratory Rate 18 08/18/16 13:50 Blood Pressure 149/72 08/18/16 13:50 O2 Sat by Pulse Oximetry (%) 100 08/18/16 08:00 Intake & Output 08/15/16 08/16/16 08/17/16 08/18/16 23:59 23:59 23:59 23:59 Intake Total 2209 1317 1610 780 Output Total 200 Balance 2209 1317 1410 780 Weight 95 lb 8 oz 95 lb 4 oz 97 lb 2 oz 98 lb 4 oz Gen: NAD CVS: RRR, No M/R Lungs: CTA Abd: Soft NT/ND. Feeding tube in place Ext: No edema, b/l BKA CBC, BMP 08/18/16 05:55 08/18/16 05:55 Laboratory Tests 08/18/16 05:55 Calcium 9.9 Phosphorus 3.1 Magnesium 2.7 H Current Medications Acetaminophen (Tylenol Oral Solution -) 650 mg GT Q6H PRN PRN Reason: FEVER OR PAIN Last Admin: 08/18/16 05:57 Dose: 650 mg Ascorbic Acid (Vitamin C Oral Solution -) 250 mg GT DAILY [facility] Collagenase (Santyl -) 1 applic TP DAILY [facility] Last Admin: 08/18/16 10:47 Dose: Not Given Doxazosin Mesylate (Cardura -) 2 mg GT HS [facility] Last Admin: 08/17/16 21:14 Dose: 2 mg Escitalopram Oxalate (Lexapro Oral Solution -) 10 mg GT DAILY [facility] Last Admin: 08/18/16 10:47 Dose: 10 mg Piperacillin Sod/Tazobactam Sod (Zosyn 3.375gm Ivpb (Pre-Docked)) 50 mls @ 100 mls/hr IVPB Q8H-IV [facility] PRN Reason: Protocol Last Admin: 08/18/16 10:48 Dose: 100 mls/hr Potassium Chloride/Sodium Chloride (1/2ns+20meq Kcl) 1,000 mls @ 75 mls/hr IV ASDIR [facility] Last Admin: 08/18/16 10:46 Dose: 75 mls/hr Insulin Aspart (Novolog Vial Sliding Scale -) 1 vial SQ ACHS [facility] PRN Reason: Protocol Last Admin: 08/18/16 11:12 Dose: 4 units Insulin Detemir (Levemir Vial) 10 units SQ HS [facility] Last Admin: 08/17/16 21:15 Dose: 10 units Lactobacillus Acidophilus (Bacid -) 1 tab GT BID [facility] Mirtazapine (Remeron -) 30 mg PO HS [facility] Last Admin: 08/17/16 21:14 Dose: 30 mg Multivitamins (Thera-Plus -) 5 ml GT DAILY [facility] Last Admin: 08/18/16 10:47 Dose: 5 ml Olanzapine (Zyprexa -) 5 mg GT HS [facility] Last Admin: 08/17/16 21:14 Dose: 5 mg Ranitidine HCl (Zantac Oral Solution -) 150 mg GT DAILY [facility] Last Admin: 08/18/16 10:47 Dose: 150 mg A/P 80 year old woman with PMhx of Multiple GIANNI's, Hypernatremia, Hypertension, DM, HLD, GERD, PVD s/p b/l BKA who presented from [place] with Fever and found to have Na of 150 and Cr of 1.1. #Hypernatremia and Hyperkalemia electrolytes now WNL on tube feeds and free water continue tube feeds with free water #GIANNI on CKD with azotemia BUN becoming more elevated in setting of fever/suspected infection agree with starting supplamental IVF in addition to tube feeds Trend BUN/Cr keep MAP > 65 #Hypercalcemia PTH is appropriately low secondary to immobilization ? will discuss ca content in tube feeds with nutrition no acute intervention warrented Trend Ca #Fever/Sacral Decubitis/Suspected UTI restarted on empiric Abx as per ID Thank you Vahid Manzano DO
[2016-08-18] MEDS: MIRTAZAPINE 30 MG TABLET (FP) PO SCH (21:07)
[2016-08-18] MEDS: LACTOBACILLUS ACIDOPHILUS 1 EACH TAB (FP) GT SCH (21:07)
[2016-08-18] MEDS: OLANZapine 5 MG TABLET GT SCH (21:07)
[2016-08-18] MEDS: INSULIN DETEMIR 100 UNITS/ML MDV SQ SCH (21:07)
[2016-08-18] MEDS: DOXAZOSIN MESYLATE 2 MG TABLET (FP) GT SCH (21:07)
[2016-08-19] MEDS: PIPERACILLIN/TAZOB 3.375 GM 50 ML IVPB SCH ×3 (02:37→18:25)
[2016-08-19] MEDS: SODIUM CHLORIDE 0.45%/POT 1,000 ML IV SCH ×2 (02:37→18:29)
[2016-08-19] MEDS: INSULIN SLIDING SCALE (NOVOLOG) 1 VIAL SQ SCH ×4 (06:26→22:06)
[2016-08-19 07:24] LABS: BASOPHIL 0.3 % (0-2.0); MCH 30.5 pg (25.7-33.7); MCHC 33.1 g/dl (32.0-36.0); MEAN PLT VOLUME 8.6 fl (7.5-11.1); NEUTROPHILS 51.5 % (42.8-82.8); PLATELET COUNT 260 K/MM3 (134-434); RDW 17.1 % (11.6-15.6); WHITE BLOOD COUNT 9.1 K/mm3 (4.0-10.0)
[2016-08-19 08:12] LABS: BILIRUBIN,TOTAL 0.3 mg/dL (0.2-1.0); CALCIUM 9.7 mg/dL (8.5-10.1); MAGNESIUM 2.6 mg/dL (1.8-2.4); PHOSPHOROUS 2.8 mg/dL (2.5-4.9); TOT PROT 7.6 g/dl (6.4-8.2)
--- NOTE | 2016-08-19 09:56 | PN ---
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, Physician Chief Complaint: Fever History of Present Illness: Patient has been in the hospital for sepsis, treated with IV abx. Has Stage IV decubitus ulcer treated with wound vac. Patient is being seen by ID, Nephrology and Cardiology. Patient started to have fever again 2 days ago. Abx was restarted. Her H/H is gradually dropping. Will check stool occult and Iron studies. Trop I gradually increasing, likely secondary to sepsis and renal insufficiency. IVF restarted for hydration. - Current Medication List Current Medications: Active Medications Acetaminophen (Tylenol Oral Solution -) 650 mg GT Q6H PRN PRN Reason: FEVER OR PAIN Last Admin: 08/18/16 05:57 Dose: 650 mg Ascorbic Acid (Vitamin C Oral Solution -) 250 mg GT DAILY [facility] Collagenase (Santyl -) 1 applic TP DAILY [facility] Last Admin: 08/18/16 10:47 Dose: Not Given Doxazosin Mesylate (Cardura -) 2 mg GT HS [facility] Last Admin: 08/18/16 21:07 Dose: 2 mg Escitalopram Oxalate (Lexapro Oral Solution -) 10 mg GT DAILY [facility] Last Admin: 08/18/16 10:47 Dose: 10 mg Piperacillin Sod/Tazobactam Sod (Zosyn 3.375gm Ivpb (Pre-Docked)) 50 mls @ 100 mls/hr IVPB Q8H-IV [facility] PRN Reason: Protocol Last Admin: 08/19/16 02:37 Dose: 100 mls/hr Potassium Chloride/Sodium Chloride (1/2ns+20meq Kcl) 1,000 mls @ 75 mls/hr IV ASDIR [facility] Last Admin: 08/19/16 02:37 Dose: 75 mls/hr Insulin Aspart (Novolog Vial Sliding Scale -) 1 vial SQ ACHS [facility] PRN Reason: Protocol Last Admin: 08/19/16 06:26 Dose: 6 units Insulin Detemir (Levemir Vial) 10 units SQ HS [facility] Last Admin: 08/18/16 21:07 Dose: 10 units Lactobacillus Acidophilus (Bacid -) 1 tab GT BID [facility] Last Admin: 08/18/16 21:07 Dose: 1 tab Mirtazapine (Remeron -) 30 mg PO HS [facility] Last Admin: 08/18/16 21:07 Dose: 30 mg Multivitamins (Thera-Plus -) 5 ml GT DAILY [facility] Last Admin: 08/18/16 10:47 Dose: 5 ml Olanzapine (Zyprexa -) 5 mg GT HS [facility] Last Admin: 08/18/16 21:07 Dose: 5 mg Ranitidine HCl (Zantac Oral Solution -) 150 mg GT DAILY [facility] Last Admin: 08/18/16 10:47 Dose: 150 mg - Objective Vital Signs: Vital Signs Temperature 99.4 F 08/19/16 09:23 Pulse Rate 88 08/19/16 09:23 Respiratory Rate 20 08/19/16 09:23 Blood Pressure 122/66 08/19/16 09:23 O2 Sat by Pulse Oximetry (%) 100 08/19/16 09:00 Constitutional: Yes: No Distress, Calm Cardiovascular: Yes: WNL, Regular Rate and Rhythm Respiratory: Yes: WNL, Regular Gastrointestinal: Yes: Normal Bowel Sounds Extremities: Yes: Amputation Edema: No Wound/Incision: Yes: Dressing Dry and Intact Psychiatric: Yes: Alert (Responds to her name) Labs: CBC, BMP 08/19/16 06:10 08/19/16 06:10 INR, PTT INR 0.99 (0.82-1.09) 08/02/16 10:01 Problem List - Problems (1) Severe sepsis Assessment/Plan: On IV abx, responding gradually Code(s): A41.9 - SEPSIS, UNSPECIFIED ORGANISM R65.20 - SEVERE SEPSIS WITHOUT SEPTIC SHOCK (2) UTI (urinary tract infection) Assessment/Plan: Pending urine C&S Code(s): N39.0 - URINARY TRACT INFECTION, SITE NOT SPECIFIED Qualifiers: Qualified Code(s): N39.0 - Urinary tract infection, site not specified (3) Anemia Assessment/Plan: Pending labs Code(s): D64.9 - ANEMIA, UNSPECIFIED (4) Decubitus ulcer Assessment/Plan: Stage 4, treated with Wound vac, was debrid in the past, evaluated by ID. Code(s): L89.90 - PRESSURE ULCER OF UNSPECIFIED SITE, UNSPECIFIED STAGE Assessment/Plan Sepsis Blood and repeat urine cultures are pending IVF hydration Repeat labs in AM Contiue IV abx
--- NOTE | 2016-08-19 11:14 | PN ---
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, Physician History of Present Illness: Awake, non verbal Temps down BC (-) Urine c/s no growth - Current Medication List Current Medications: Active Medications Acetaminophen (Tylenol Oral Solution -) 650 mg GT Q6H PRN PRN Reason: FEVER OR PAIN Last Admin: 08/18/16 05:57 Dose: 650 mg Ascorbic Acid (Vitamin C Oral Solution -) 250 mg GT DAILY [facility] Collagenase (Santyl -) 1 applic TP DAILY [facility] Last Admin: 08/18/16 10:47 Dose: Not Given Doxazosin Mesylate (Cardura -) 2 mg GT HS [facility] Last Admin: 08/18/16 21:07 Dose: 2 mg Escitalopram Oxalate (Lexapro Oral Solution -) 10 mg GT DAILY [facility] Last Admin: 08/18/16 10:47 Dose: 10 mg Piperacillin Sod/Tazobactam Sod (Zosyn 3.375gm Ivpb (Pre-Docked)) 50 mls @ 100 mls/hr IVPB Q8H-IV [facility] PRN Reason: Protocol Last Admin: 08/19/16 02:37 Dose: 100 mls/hr Potassium Chloride/Sodium Chloride (1/2ns+20meq Kcl) 1,000 mls @ 75 mls/hr IV ASDIR [facility] Last Admin: 08/19/16 02:37 Dose: 75 mls/hr Insulin Aspart (Novolog Vial Sliding Scale -) 1 vial SQ ACHS [facility] PRN Reason: Protocol Last Admin: 08/19/16 06:26 Dose: 6 units Insulin Detemir (Levemir Vial) 10 units SQ HS [facility] Last Admin: 08/18/16 21:07 Dose: 10 units Lactobacillus Acidophilus (Bacid -) 1 tab GT BID [facility] Last Admin: 08/18/16 21:07 Dose: 1 tab Mirtazapine (Remeron -) 30 mg PO HS [facility] Last Admin: 08/18/16 21:07 Dose: 30 mg Multivitamins (Thera-Plus -) 5 ml GT DAILY [facility] Last Admin: 08/18/16 10:47 Dose: 5 ml Olanzapine (Zyprexa -) 5 mg GT HS [facility] Last Admin: 08/18/16 21:07 Dose: 5 mg Ranitidine HCl (Zantac Oral Solution -) 150 mg GT DAILY [facility] Last Admin: 08/18/16 10:47 Dose: 150 mg - Objective Vital Signs: Vital Signs Temperature 99.4 F 08/19/16 09:23 Pulse Rate 88 08/19/16 09:23 Respiratory Rate 20 08/19/16 09:23 Blood Pressure 122/66 08/19/16 09:23 O2 Sat by Pulse Oximetry (%) 100 08/19/16 09:00 Constitutional: Yes: No Distress Eyes: Yes: Conjunctiva Clear Cardiovascular: Yes: Regular Rate and Rhythm, S1, S2 Respiratory: Yes: Diminished Gastrointestinal: Yes: Normal Bowel Sounds, Soft. No: Tenderness Extremities: Yes: Other (S/P BKA) Integumentary: Yes: Other (+ sacral decubitus) Labs: CBC, BMP 08/19/16 06:10 08/19/16 06:10 INR, PTT INR 0.99 (0.82-1.09) 08/02/16 10:01 Assessment/Plan S/P UTI/ Sepsis secondary to UTI v. 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 source Stage IV sacral decubitus Hx ESBL OBS Urine culture pending Continue empiric zosyn
[2016-08-19] MEDS ORDERED: PT OWN MED DRAWER 7, Y5N ONE (11:19)
[2016-08-19] MEDS ORDERED: INSULIN (NOVOLOG) ASPART 100 UNITS/ML 10ML VIAL ONE ×2 (11:20→22:06)
[2016-08-19] MEDS: ESCITALOPRAM OXALATE 5 MG/5 ML GT SCH (11:26)
[2016-08-19] MEDS: ASCORBIC ACID 500 MG/5 ML UNIT DOSE CUP GT SCH (11:27)
[2016-08-19] MEDS: COLLAGENASE CLOSTRIDIUM HIST. 30 GRAMS TUBE TP SCH (11:27)
[2016-08-19] MEDS: MULTIVITAMINS LIQUID THERAPEUTIC 118 ML BOT GT SCH (11:28)
[2016-08-19] MEDS: RANITIDINE HCL 150 MG/10 ML UNIT-DOSE CUP GT SCH (11:28)
[2016-08-19] MEDS: LACTOBACILLUS ACIDOPHILUS 1 EACH TAB (FP) GT SCH ×2 (12:59→22:03)
--- NOTE | 2016-08-19 13:09 | PN ---
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 (short form) - Note 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: Renal Follow up for hypernatermia and CKD Pt seen and examined at the bedside no documented fevers overnight non-verbal on tube feeds and free water Vital Signs Temperature 99.4 F 08/19/16 09:23 Pulse Rate 88 08/19/16 09:23 Respiratory Rate 20 08/19/16 09:23 Blood Pressure 122/66 08/19/16 09:23 O2 Sat by Pulse Oximetry (%) 100 08/19/16 09:00 Intake & Output 08/16/16 08/17/16 08/18/16 08/19/16 23:59 23:59 23:59 23:59 Intake Total 1317 1610 1530 1690 Output Total 200 Balance 1317 1410 1530 1690 Weight 95 lb 4 oz 97 lb 2 oz 98 lb 4 oz 98 lb Gen: NAD CVS: RRR, No M/R Lungs: CTA Abd: Soft NT/ND. Feeding tube in place Ext: No edema, b/l BKA CBC, BMP 08/19/16 06:10 08/19/16 06:10 Laboratory Tests 08/19/16 06:10 Calcium 9.7 Phosphorus 2.8 Magnesium 2.6 H Albumin 2.0 L Current Medications Acetaminophen (Tylenol Oral Solution -) 650 mg GT Q6H PRN PRN Reason: FEVER OR PAIN Last Admin: 08/18/16 05:57 Dose: 650 mg Ascorbic Acid (Vitamin C Oral Solution -) 250 mg GT DAILY [facility] Last Admin: 08/19/16 11:27 Dose: 250 mg Collagenase (Santyl -) 1 applic TP DAILY [facility] Last Admin: 08/19/16 11:27 Dose: Not Given Doxazosin Mesylate (Cardura -) 2 mg GT HS [facility] Last Admin: 08/18/16 21:07 Dose: 2 mg Escitalopram Oxalate (Lexapro Oral Solution -) 10 mg GT DAILY [facility] Last Admin: 08/19/16 11:26 Dose: 10 mg Piperacillin Sod/Tazobactam Sod (Zosyn 3.375gm Ivpb (Pre-Docked)) 50 mls @ 100 mls/hr IVPB Q8H-IV [facility] PRN Reason: Protocol Last Admin: 08/19/16 11:24 Dose: 100 mls/hr Potassium Chloride/Sodium Chloride (1/2ns+20meq Kcl) 1,000 mls @ 75 mls/hr IV ASDIR [facility] Last Admin: 08/19/16 02:37 Dose: 75 mls/hr Insulin Aspart (Novolog Vial Sliding Scale -) 1 vial SQ ACHS [facility] PRN Reason: Protocol Last Admin: 08/19/16 11:25 Dose: 4 units Insulin Detemir (Levemir Vial) 10 units SQ HS [facility] Last Admin: 08/18/16 21:07 Dose: 10 units Lactobacillus Acidophilus (Bacid -) 1 tab GT BID [facility] Last Admin: 08/19/16 12:59 Dose: 1 tab Mirtazapine (Remeron -) 30 mg PO HS [facility] Last Admin: 08/18/16 21:07 Dose: 30 mg Multivitamins (Thera-Plus -) 5 ml GT DAILY [facility] Last Admin: 08/19/16 11:28 Dose: 5 ml Olanzapine (Zyprexa -) 5 mg GT HS [facility] Last Admin: 08/18/16 21:07 Dose: 5 mg Ranitidine HCl (Zantac Oral Solution -) 150 mg GT DAILY [facility] Last Admin: 08/19/16 11:28 Dose: 150 mg A/P 80 year old woman with PMhx of Multiple GIANNI's, Hypernatremia, Hypertension, DM, HLD, GERD, PVD s/p b/l BKA who [place] with Fever and found to have Na of 150 and Cr of 1.1. #Hypernatremia and Hyperkalemia electrolytes now WNL on tube feeds and free water continue tube feeds with free water #GIANNI on CKD with azotemia BUN improved but remains elevated continue hypotonic saline in addition to tube feeds monitor resp status trend BUN/Cr #Hypercalcemia PTH is appropriately low secondary to immobilization ? will discuss ca content in tube feeds with nutrition no acute intervention warranted Trend Ca #Fever/Sacral Decubitis/Suspected UTI restarted on empiric Abx as per ID Thank you Vahid Manzano DO
--- NOTE | 2016-08-19 15:11 | PN ---
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, Physician History of Present Illness: 80 year old female with a PMH of HTN, DM, HLD, GERD, CVA's, PVD with bilateral BKA's, COPD, history of DVT's, past episodes of sepsis secondary to UTI's, and h /o infected sacral decubs status post debridement. has feeding tube. An echocardiogram performed on 07/01/16 showed normal LV function with moderate aortic stenosis. She presented now from the group home with fever. Not able to give history. asked to evaluate due to elevated troponin. - Current Medication List Current Medications: Active Medications Acetaminophen (Tylenol Oral Solution -) 650 mg GT Q6H PRN PRN Reason: FEVER OR PAIN Last Admin: 08/18/16 05:57 Dose: 650 mg Ascorbic Acid (Vitamin C Oral Solution -) 250 mg GT DAILY [facility] Last Admin: 08/19/16 11:27 Dose: 250 mg Collagenase (Santyl -) 1 applic TP DAILY [facility] Last Admin: 08/19/16 11:27 Dose: Not Given Doxazosin Mesylate (Cardura -) 2 mg GT HS [facility] Last Admin: 08/18/16 21:07 Dose: 2 mg Escitalopram Oxalate (Lexapro Oral Solution -) 10 mg GT DAILY [facility] Last Admin: 08/19/16 11:26 Dose: 10 mg Piperacillin Sod/Tazobactam Sod (Zosyn 3.375gm Ivpb (Pre-Docked)) 50 mls @ 100 mls/hr IVPB Q8H-IV [facility] PRN Reason: Protocol Last Admin: 08/19/16 11:24 Dose: 100 mls/hr Potassium Chloride/Sodium Chloride (1/2ns+20meq Kcl) 1,000 mls @ 75 mls/hr IV ASDIR [facility] Last Admin: 08/19/16 02:37 Dose: 75 mls/hr Insulin Aspart (Novolog Vial Sliding Scale -) 1 vial SQ ACHS [facility] PRN Reason: Protocol Last Admin: 08/19/16 11:25 Dose: 4 units Insulin Detemir (Levemir Vial) 10 units SQ HS [facility] Last Admin: 08/18/16 21:07 Dose: 10 units Lactobacillus Acidophilus (Bacid -) 1 tab GT BID [facility] Last Admin: 08/19/16 12:59 Dose: 1 tab Mirtazapine (Remeron -) 30 mg PO HS [facility] Last Admin: 08/18/16 21:07 Dose: 30 mg Multivitamins (Thera-Plus -) 5 ml GT DAILY [facility] Last Admin: 08/19/16 11:28 Dose: 5 ml Olanzapine (Zyprexa -) 5 mg GT HS [facility] Last Admin: 08/18/16 21:07 Dose: 5 mg Ranitidine HCl (Zantac Oral Solution -) 150 mg GT DAILY [facility] Last Admin: 08/19/16 11:28 Dose: 150 mg - Objective Vital Signs: Vital Signs Temperature 99.2 F 08/19/16 14:00 Pulse Rate 96 H 08/19/16 14:00 Respiratory Rate 20 08/19/16 14:00 Blood Pressure 152/78 08/19/16 14:00 O2 Sat by Pulse Oximetry (%) 100 08/19/16 09:00 Constitutional: Yes: No Distress Eyes: Yes: WNL HENT: Yes: Atraumatic, Normocephalic Neck: Yes: Supple, Trachea Midline Cardiovascular: Yes: Regular Rate and Rhythm Respiratory: Yes: CTA Bilaterally Gastrointestinal: Yes: Normal Bowel Sounds, Soft Edema: Yes Edema: LLE: 1+, RLE: 1+ Labs: CBC, BMP 08/19/16 06:10 08/19/16 06:10 INR, PTT INR 0.99 (0.82-1.09) 08/02/16 10:01 Assessment/Plan Aortic stenosis is moderate at worst. Her shara is due to sepsis. No need for further cardiac testing. Her poor mental status precludes further workup. No symptoms. Will see prn.
[2016-08-19] MEDS: MIRTAZAPINE 30 MG TABLET (FP) PO SCH (22:02)
[2016-08-19] MEDS: DOXAZOSIN MESYLATE 2 MG TABLET (FP) GT SCH (22:03)
[2016-08-19] MEDS: OLANZapine 5 MG TABLET GT SCH (22:03)
[2016-08-19] MEDS: INSULIN DETEMIR 100 UNITS/ML MDV SQ SCH (22:05)
[2016-08-19] MEDS: ACETAMINOPHEN 650 MG/20.3 ML ORAL SOLUTION (CUPS) GT PRN (22:22)
[2016-08-20] MEDS: PIPERACILLIN/TAZOB 3.375 GM 50 ML IVPB SCH ×3 (01:48→17:01)
[2016-08-20] MEDS: INSULIN SLIDING SCALE (NOVOLOG) 1 VIAL SQ SCH ×3 (06:09→16:29)
[2016-08-20] MEDS ORDERED: INSULIN (NOVOLOG) ASPART 100 UNITS/ML 10ML VIAL ONE ×3 (06:10→16:21)
[2016-08-20 09:20] LABS: COCKROFT - GAULT 35.292; CREATININE 0.9 mg/dL (0.55-1.02); MAGNESIUM 2.5 mg/dL (1.8-2.4)
--- NOTE | 2016-08-20 09:47 | PN ---
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, Physician Chief Complaint: Fever History of Present Illness: Patient has been in the hospital for sepsis, treated with IV abx. Has Stage IV decubitus ulcer treated with wound vac. Patient is being seen by ID, Nephrology and Cardiology. Patient started to have fever again 2 days ago. Abx was restarted. Her H/H is gradually dropping. Will check stool occult and Iron studies. Trop I gradually increasing, likely secondary to sepsis and renal insufficiency. IVF restarted for hydration. - Current Medication List Current Medications: Active Medications Acetaminophen (Tylenol Oral Solution -) 650 mg GT Q6H PRN PRN Reason: FEVER OR PAIN Last Admin: 08/19/16 22:22 Dose: 650 mg Ascorbic Acid (Vitamin C Oral Solution -) 250 mg GT DAILY [facility] Last Admin: 08/19/16 11:27 Dose: 250 mg Collagenase (Santyl -) 1 applic TP DAILY [facility] Last Admin: 08/19/16 11:27 Dose: Not Given Doxazosin Mesylate (Cardura -) 2 mg GT HS [facility] Last Admin: 08/19/16 22:03 Dose: 2 mg Escitalopram Oxalate (Lexapro Oral Solution -) 10 mg GT DAILY [facility] Last Admin: 08/19/16 11:26 Dose: 10 mg Piperacillin Sod/Tazobactam Sod (Zosyn 3.375gm Ivpb (Pre-Docked)) 50 mls @ 100 mls/hr IVPB Q8H-IV [facility] PRN Reason: Protocol Last Admin: 08/20/16 01:48 Dose: 100 mls/hr Potassium Chloride/Sodium Chloride (1/2ns+20meq Kcl) 1,000 mls @ 75 mls/hr IV ASDIR [facility] Last Admin: 08/19/16 18:29 Dose: 75 mls/hr Insulin Aspart (Novolog Vial Sliding Scale -) 1 vial SQ ACHS [facility] PRN Reason: Protocol Last Admin: 08/20/16 06:09 Dose: 6 units Insulin Detemir (Levemir Vial) 10 units SQ HS [facility] Last Admin: 08/19/16 22:05 Dose: 10 units Lactobacillus Acidophilus (Bacid -) 1 tab GT BID [facility] Last Admin: 08/19/16 22:03 Dose: 1 tab Mirtazapine (Remeron -) 30 mg PO HS [facility] Last Admin: 08/19/16 22:02 Dose: 30 mg Multivitamins (Thera-Plus -) 5 ml GT DAILY [facility] Last Admin: 08/19/16 11:28 Dose: 5 ml Olanzapine (Zyprexa -) 5 mg GT HS [facility] Last Admin: 08/19/16 22:03 Dose: 5 mg Ranitidine HCl (Zantac Oral Solution -) 150 mg GT DAILY [facility] Last Admin: 08/19/16 11:28 Dose: 150 mg - Objective Vital Signs: Vital Signs Temperature 99.2 F 08/20/16 06:00 Pulse Rate 88 08/20/16 06:00 Respiratory Rate 18 08/20/16 06:00 Blood Pressure 118/64 08/20/16 06:00 O2 Sat by Pulse Oximetry (%) 100 08/19/16 22:00 Constitutional: Yes: No Distress, Calm Cardiovascular: Yes: Regular Rate and Rhythm, Murmur (Grade III, LSB) Respiratory: Yes: WNL, Regular Gastrointestinal: Yes: Normal Bowel Sounds, Soft Genitourinary: Yes: Incontinence Extremities: Yes: Amputation (BLLE) Edema: No Integumentary: Yes: Pressure Ulcer (Stage 4 decubitus ulcer) Wound/Incision: Yes: Other (Wound Vac in place) Neurological: Yes: Unresponsive Psychiatric: Yes: Other (opens eyes to touch) Labs: CBC, BMP 08/19/16 06:10 INR, PTT INR 0.99 (0.82-1.09) 08/02/16 10:01 Problem List - Problems (1) Severe sepsis Assessment/Plan: On IV abx, responding gradually Code(s): A41.9 - SEPSIS, UNSPECIFIED ORGANISM R65.20 - SEVERE SEPSIS WITHOUT SEPTIC SHOCK (2) UTI (urinary tract infection) Assessment/Plan: Pending urine C&S Code(s): N39.0 - URINARY TRACT INFECTION, SITE NOT SPECIFIED Qualifiers: Qualified Code(s): N39.0 - Urinary tract infection, site not specified (3) Anemia Assessment/Plan: Awaiting repeat Iron studies. Iron Sucrose 200 mg IVPB once ordered Code(s): D64.9 - ANEMIA, UNSPECIFIED (4) Decubitus ulcer Assessment/Plan: Stage 4, treated with Wound vac, was debrid in the past, evaluated by ID. Code(s): L89.90 - PRESSURE ULCER OF UNSPECIFIED SITE, UNSPECIFIED STAGE Assessment/Plan Sepsis? secondary to Stage 4 decubitus ulcer? Blood and repeat urine cultures are negative so far Pending Iron studies IVF hydration, BUN/Cr gradually improving Contiue IV abx
[2016-08-20 10:19] LABS: FERRITIN 639.79 ng/ml (6.9-282.5)
[2016-08-20] MEDS: SODIUM CHLORIDE 0.45%/POT 1,000 ML IV SCH (11:04)
[2016-08-20] MEDS: LACTOBACILLUS ACIDOPHILUS 1 EACH TAB (FP) GT SCH ×2 (11:04→23:55)
[2016-08-20] MEDS: COLLAGENASE CLOSTRIDIUM HIST. 30 GRAMS TUBE TP SCH (11:04)
[2016-08-20] MEDS: RANITIDINE HCL 150 MG/10 ML UNIT-DOSE CUP GT SCH (11:05)
[2016-08-20] MEDS: MULTIVITAMINS LIQUID THERAPEUTIC 118 ML BOT GT SCH (11:05)
[2016-08-20] MEDS: ESCITALOPRAM OXALATE 5 MG/5 ML GT SCH (11:06)
[2016-08-20] MEDS: ASCORBIC ACID 500 MG/5 ML UNIT DOSE CUP GT SCH (11:06)
[2016-08-20] MEDS ORDERED: SODIUM CHLORIDE 0.45%/POT 1,000 ML IV SCH (16:03)
--- NOTE | 2016-08-20 16:03 | PN ---
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 (short form) - Note 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: Renal Follow up for hypernatermia and CKD Pt seen and examined at the bedside no overnight events on IVF Vital Signs Temperature 98.7 F 08/20/16 14:00 Pulse Rate 86 08/20/16 14:00 Respiratory Rate 20 08/20/16 14:00 Blood Pressure 124/73 08/20/16 14:00 O2 Sat by Pulse Oximetry (%) 99 08/20/16 08:00 Intake & Output 08/17/16 08/18/16 08/19/16 08/20/16 23:59 23:59 23:59 23:59 Intake Total 1610 1530 3290 1715 Output Total 200 Balance 1410 1530 3290 1715 Weight 97 lb 2 oz 98 lb 4 oz 98 lb 97 lb 4 oz Gen: NAD CVS: RRR, No M/R Lungs: CTA Abd: Soft NT/ND. Feeding tube in place Ext: No edema, b/l BKA CBC, BMP 08/19/16 06:10 08/20/16 07:10 Current Medications Acetaminophen (Tylenol Oral Solution -) 650 mg GT Q6H PRN PRN Reason: FEVER OR PAIN Last Admin: 08/19/16 22:22 Dose: 650 mg Ascorbic Acid (Vitamin C Oral Solution -) 250 mg GT DAILY [facility] Last Admin: 08/20/16 11:06 Dose: 250 mg Collagenase (Santyl -) 1 applic TP DAILY [facility] Last Admin: 08/20/16 11:04 Dose: Not Given Doxazosin Mesylate (Cardura -) 2 mg GT HS [facility] Last Admin: 08/19/16 22:03 Dose: 2 mg Escitalopram Oxalate (Lexapro Oral Solution -) 10 mg GT DAILY [facility] Last Admin: 08/20/16 11:06 Dose: 10 mg Piperacillin Sod/Tazobactam Sod (Zosyn 3.375gm Ivpb (Pre-Docked)) 50 mls @ 100 mls/hr IVPB Q8H-IV [facility] PRN Reason: Protocol Last Admin: 08/20/16 11:04 Dose: 100 mls/hr Potassium Chloride/Sodium Chloride (1/2ns+20meq Kcl) 1,000 mls @ 75 mls/hr IV ASDIR [facility] Last Admin: 08/20/16 11:04 Dose: 75 mls/hr Insulin Aspart (Novolog Vial Sliding Scale -) 1 vial SQ ACHS [facility] PRN Reason: Protocol Last Admin: 08/20/16 11:09 Dose: 2 units Insulin Detemir (Levemir Vial) 10 units SQ HS [facility] Last Admin: 08/19/16 22:05 Dose: 10 units Lactobacillus Acidophilus (Bacid -) 1 tab GT BID [facility] Last Admin: 08/20/16 11:04 Dose: 1 tab Mirtazapine (Remeron -) 30 mg PO HS [facility] Last Admin: 08/19/16 22:02 Dose: 30 mg Multivitamins (Thera-Plus -) 5 ml GT DAILY [facility] Last Admin: 08/20/16 11:05 Dose: 5 ml Olanzapine (Zyprexa -) 5 mg GT HS [facility] Last Admin: 08/19/16 22:03 Dose: 5 mg Ranitidine HCl (Zantac Oral Solution -) 150 mg GT DAILY [facility] Last Admin: 08/20/16 11:05 Dose: 150 mg A/P 80 year old woman with PMhx of Multiple GIANNI's, Hypernatremia, Hypertension, DM, HLD, GERD, PVD s/p b/l BKA who presented [place] with Fever and found to have Na of 150 and Cr of 1.1. #Hypernatremia and Hyperkalemia electrolytes now WNL on tube feeds and free water continue tube feeds with free water #GIANNI on CKD with azotemia BUN improving with isotonic IVF continue for now at rate of 42cc per hour trend BUN/Cr #Hypercalcemia PTH is appropriately low secondary to immobilization ? will discuss ca content in tube feeds with nutrition no acute intervention warranted Trend Ca #Fever/Sacral Decubitis/Suspected UTI restarted on empiric Abx as per ID Thank you Vahid Manzano DO
--- NOTE | 2016-08-20 16:15 | PN ---
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, Physician History of Present Illness: Confused Temps improved today - Current Medication List Current Medications: Active Medications Acetaminophen (Tylenol Oral Solution -) 650 mg GT Q6H PRN PRN Reason: FEVER OR PAIN Last Admin: 08/19/16 22:22 Dose: 650 mg Ascorbic Acid (Vitamin C Oral Solution -) 250 mg GT DAILY [facility] Last Admin: 08/20/16 11:06 Dose: 250 mg Collagenase (Santyl -) 1 applic TP DAILY [facility] Last Admin: 08/20/16 11:04 Dose: Not Given Doxazosin Mesylate (Cardura -) 2 mg GT HS [facility] Last Admin: 08/19/16 22:03 Dose: 2 mg Escitalopram Oxalate (Lexapro Oral Solution -) 10 mg GT DAILY [facility] Last Admin: 08/20/16 11:06 Dose: 10 mg Piperacillin Sod/Tazobactam Sod (Zosyn 3.375gm Ivpb (Pre-Docked)) 50 mls @ 100 mls/hr IVPB Q8H-IV [facility] PRN Reason: Protocol Last Admin: 08/20/16 11:04 Dose: 100 mls/hr Potassium Chloride/Sodium Chloride (1/2ns+20meq Kcl) 1,000 mls @ 42 mls/hr IV ASDIR [facility] Insulin Aspart (Novolog Vial Sliding Scale -) 1 vial SQ ACHS [facility] PRN Reason: Protocol Last Admin: 08/20/16 11:09 Dose: 2 units Insulin Detemir (Levemir Vial) 10 units SQ HS [facility] Last Admin: 08/19/16 22:05 Dose: 10 units Lactobacillus Acidophilus (Bacid -) 1 tab GT BID [facility] Last Admin: 08/20/16 11:04 Dose: 1 tab Mirtazapine (Remeron -) 30 mg PO HS [facility] Last Admin: 08/19/16 22:02 Dose: 30 mg Multivitamins (Thera-Plus -) 5 ml GT DAILY [facility] Last Admin: 08/20/16 11:05 Dose: 5 ml Olanzapine (Zyprexa -) 5 mg GT HS [facility] Last Admin: 08/19/16 22:03 Dose: 5 mg Ranitidine HCl (Zantac Oral Solution -) 150 mg GT DAILY [facility] Last Admin: 08/20/16 11:05 Dose: 150 mg - Objective Vital Signs: Vital Signs Temperature 98.7 F 08/20/16 14:00 Pulse Rate 86 08/20/16 14:00 Respiratory Rate 20 08/20/16 14:00 Blood Pressure 124/73 08/20/16 14:00 O2 Sat by Pulse Oximetry (%) 99 08/20/16 08:00 Constitutional: Yes: No Distress Eyes: Yes: Conjunctiva Clear Cardiovascular: Yes: Regular Rate and Rhythm, S1, S2 Respiratory: Yes: Diminished Gastrointestinal: Yes: Normal Bowel Sounds, Soft. No: Tenderness Extremities: Yes: Other (s/p BKA bilaterally) Integumentary: Yes: Other (sacral decubitus) Labs: CBC, BMP 08/19/16 06:10 08/20/16 07:10 INR, PTT INR 0.99 (0.82-1.09) 08/02/16 10:01 Assessment/Plan S/P UTI/ Sepsis secondary to UTI v. 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 source Stage IV sacral decubitus Hx ESBL OBS Continue empiric zosyn
[2016-08-20] MEDS ORDERED: IRON SUCROSE INJECTION 200 MG in SODIUM CHLORIDE 100 ML IVPB ONE (18:30)
[2016-08-20] MEDS: DOXAZOSIN MESYLATE 2 MG TABLET (FP) GT SCH (23:55)
[2016-08-20] MEDS: MIRTAZAPINE 30 MG TABLET (FP) PO SCH (23:55)
[2016-08-20] MEDS: OLANZapine 5 MG TABLET GT SCH (23:55)
[2016-08-21] MEDS: INSULIN SLIDING SCALE (NOVOLOG) 1 VIAL SQ SCH ×5 (00:05→21:58)
[2016-08-21] MEDS: INSULIN DETEMIR 100 UNITS/ML MDV SQ SCH ×2 (00:06→22:03)
[2016-08-21] MEDS: PIPERACILLIN/TAZOB 3.375 GM 50 ML IVPB SCH ×3 (01:58→17:32)
[2016-08-21 08:10] LABS: SERUM IRON 49 ug/dL (27-139); TOTAL IRON BINDING CAPACITY 178 ug/dL (250-450); UIBC 129 ug/dL (118-369)
[2016-08-21] MEDS: MULTIVITAMINS LIQUID THERAPEUTIC 118 ML BOT GT SCH (10:01)
[2016-08-21] MEDS: ESCITALOPRAM OXALATE 5 MG/5 ML GT SCH (10:02)
[2016-08-21] MEDS: LACTOBACILLUS ACIDOPHILUS 1 EACH TAB (FP) GT SCH ×2 (10:02→22:02)
[2016-08-21] MEDS: COLLAGENASE CLOSTRIDIUM HIST. 30 GRAMS TUBE TP SCH (10:02)
[2016-08-21] MEDS: ASCORBIC ACID 500 MG/5 ML UNIT DOSE CUP GT SCH (10:02)
[2016-08-21] MEDS: RANITIDINE HCL 150 MG/10 ML UNIT-DOSE CUP GT SCH (10:03)
[2016-08-21 11:24] LABS: CALCIUM 9.1 mg/dL (8.5-10.1); COCKROFT - GAULT 45.373; CREATININE 0.7 mg/dL (0.55-1.02); MAGNESIUM 2.3 mg/dL (1.8-2.4); PHOSPHOROUS 2.4 mg/dL (2.5-4.9)
--- NOTE | 2016-08-21 12:02 | PN ---
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, Physician History of Present Illness: MORE AWAKE - Current Medication List Current Medications: Active Medications Acetaminophen (Tylenol Oral Solution -) 650 mg GT Q6H PRN PRN Reason: FEVER OR PAIN Last Admin: 08/19/16 22:22 Dose: 650 mg Ascorbic Acid (Vitamin C Oral Solution -) 250 mg GT DAILY [facility] Last Admin: 08/21/16 10:02 Dose: 250 mg Collagenase (Santyl -) 1 applic TP DAILY [facility] Last Admin: 08/21/16 10:02 Dose: Not Given Doxazosin Mesylate (Cardura -) 2 mg GT HS [facility] Last Admin: 08/20/16 23:55 Dose: 2 mg Escitalopram Oxalate (Lexapro Oral Solution -) 10 mg GT DAILY [facility] Last Admin: 08/21/16 10:02 Dose: 10 mg Piperacillin Sod/Tazobactam Sod (Zosyn 3.375gm Ivpb (Pre-Docked)) 50 mls @ 100 mls/hr IVPB Q8H-IV [facility] PRN Reason: Protocol Last Admin: 08/21/16 10:00 Dose: 100 mls/hr Potassium Chloride/Sodium Chloride (1/2ns+20meq Kcl) 1,000 mls @ 42 mls/hr IV ASDIR [facility] Last Admin: 08/20/16 16:27 Dose: 42 mls/hr Insulin Aspart (Novolog Vial Sliding Scale -) 1 vial SQ ACHS [facility] PRN Reason: Protocol Last Admin: 08/21/16 11:56 Dose: 4 units Insulin Detemir (Levemir Vial) 10 units SQ HS [facility] Last Admin: 08/21/16 00:06 Dose: 10 units Lactobacillus Acidophilus (Bacid -) 1 tab GT BID [facility] Last Admin: 08/21/16 10:02 Dose: 1 tab Mirtazapine (Remeron -) 30 mg PO HS [facility] Last Admin: 08/20/16 23:55 Dose: 30 mg Multivitamins (Thera-Plus -) 5 ml GT DAILY [facility] Last Admin: 08/21/16 10:01 Dose: 5 ml Olanzapine (Zyprexa -) 5 mg GT HS [facility] Last Admin: 08/20/16 23:55 Dose: 5 mg Ranitidine HCl (Zantac Oral Solution -) 150 mg GT DAILY [facility] Last Admin: 08/21/16 10:03 Dose: 150 mg - Objective Vital Signs: Vital Signs Temperature 97.6 F 08/21/16 02:00 Pulse Rate 86 08/21/16 02:00 Respiratory Rate 18 08/21/16 02:00 Blood Pressure 125/6 08/21/16 02:00 O2 Sat by Pulse Oximetry (%) 99 08/20/16 22:00 Cardiovascular: Yes: S1, S2 Respiratory: Yes: Regular, CTA Bilaterally Gastrointestinal: Yes: Normal Bowel Sounds, Soft Extremities: Yes: Amputation Labs: CBC, BMP 08/19/16 06:10 08/21/16 10:35 INR, PTT INR 0.99 (0.82-1.09) 08/02/16 10:01 Problem List - Problems (1) UTI (urinary tract infection) Code(s): N39.0 - URINARY TRACT INFECTION, SITE NOT SPECIFIED Qualifiers: Qualified Code(s): N39.0 - Urinary tract infection, site not specified (2) ARF (acute renal failure) Code(s): N17.9 - ACUTE KIDNEY FAILURE, UNSPECIFIED (3) Acute bilateral deep vein thrombosis (DVT) of femoral veins Code(s): I82.413 - ACUTE EMBOLISM AND THROMBOSIS OF FEMORAL VEIN, BILATERAL (4) Aortic stenosis Code(s): I35.0 - NONRHEUMATIC AORTIC (VALVE) STENOSIS Qualifiers: Qualified Code(s): I35.0 - Nonrheumatic aortic (valve) stenosis (5) Decubitus ulcer Code(s): L89.90 - PRESSURE ULCER OF UNSPECIFIED SITE, UNSPECIFIED STAGE (6) Fever Code(s): R50.9 - FEVER, UNSPECIFIED (7) Type 2 diabetes mellitus with other diabetic kidney complication Code(s): E11.29 - TYPE 2 DIABETES MELLITUS [facility] DIABETIC KIDNEY COMPLICATION Assessment/Plan Problems (1) UTI (urinary tract infection) Assessment/Plan: ABX PER ID CULTURES ESBL contact isolation Code(s): N39.0 - URINARY TRACT INFECTION, SITE NOT SPECIFIED Qualifiers: Qualified Code(s): N39.0 - Urinary tract infection, site not specified (2) ARF (acute renal failure) Assessment/Plan: improved Code(s): N17.9 - ACUTE KIDNEY FAILURE, UNSPECIFIED (3) Decubitus ulcer Assessment/Plan: wound care team on board wound vac Code(s): L89.90 - PRESSURE ULCER OF UNSPECIFIED SITE, UNSPECIFIED STAGE (4) Dementia Assessment/Plan: zyprexa nameda remeron Code(s): F03.90 - UNSPECIFIED DEMENTIA WITHOUT BEHAVIORAL DISTURBANCE (5) Fever Assessment/Plan: low grade IMPROVED on abx cultures done wound evaluated by surgery cxr nad id --follow up Assessment/Plan lovenox for DVT DM bgm noted dec the insulin dose
--- NOTE | 2016-08-21 12:51 | PN ---
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 (short form) - Note 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: Renal Follow up for hypernatermia and CKD Pt seen and examined at the bedside appears more awake and alert no fevers Vital Signs Temperature 97.6 F 08/21/16 02:00 Pulse Rate 86 08/21/16 02:00 Respiratory Rate 18 08/21/16 02:00 Blood Pressure 125/6 08/21/16 02:00 O2 Sat by Pulse Oximetry (%) 99 08/20/16 22:00 Intake & Output 08/18/16 08/19/16 08/20/16 08/21/16 23:59 23:59 23:59 23:59 Intake Total 1530 3290 2416 1310 Balance 1530 3290 2416 1310 Weight 98 lb 4 oz 98 lb 97 lb 4 oz 97 lb 4 oz Gen: NAD CVS: RRR, No M/R Lungs: CTA Abd: Soft NT/ND. Feeding tube in place Ext: No edema, b/l BKA CBC, BMP 08/19/16 06:10 08/21/16 10:35 Current Medications Acetaminophen (Tylenol Oral Solution -) 650 mg GT Q6H PRN PRN Reason: FEVER OR PAIN Last Admin: 08/19/16 22:22 Dose: 650 mg Ascorbic Acid (Vitamin C Oral Solution -) 250 mg GT DAILY [facility] Last Admin: 08/21/16 10:02 Dose: 250 mg Collagenase (Santyl -) 1 applic TP DAILY [facility] Last Admin: 08/21/16 10:02 Dose: Not Given Doxazosin Mesylate (Cardura -) 2 mg GT HS [facility] Last Admin: 08/20/16 23:55 Dose: 2 mg Escitalopram Oxalate (Lexapro Oral Solution -) 10 mg GT DAILY [facility] Last Admin: 08/21/16 10:02 Dose: 10 mg Piperacillin Sod/Tazobactam Sod (Zosyn 3.375gm Ivpb (Pre-Docked)) 50 mls @ 100 mls/hr IVPB Q8H-IV [facility] PRN Reason: Protocol Last Admin: 08/21/16 10:00 Dose: 100 mls/hr Insulin Aspart (Novolog Vial Sliding Scale -) 1 vial SQ ACHS [facility] PRN Reason: Protocol Last Admin: 08/21/16 11:56 Dose: 4 units Insulin Detemir (Levemir Vial) 10 units SQ HS [facility] Last Admin: 08/21/16 00:06 Dose: 10 units Lactobacillus Acidophilus (Bacid -) 1 tab GT BID [facility] Last Admin: 08/21/16 10:02 Dose: 1 tab Mirtazapine (Remeron -) 30 mg PO HS [facility] Last Admin: 08/20/16 23:55 Dose: 30 mg Multivitamins (Thera-Plus -) 5 ml GT DAILY [facility] Last Admin: 08/21/16 10:01 Dose: 5 ml Olanzapine (Zyprexa -) 5 mg GT HS [facility] Last Admin: 08/20/16 23:55 Dose: 5 mg Ranitidine HCl (Zantac Oral Solution -) 150 mg GT DAILY [facility] Last Admin: 08/21/16 10:03 Dose: 150 mg A/P 80 year old woman with PMhx of Multiple GIANNI's, Hypernatremia, Hypertension, DM, HLD, GERD, PVD s/p b/l BKA who presented from [place] with Fever and found to have Na of 150 and Cr of 1.1. #Hypernatremia and Hyperkalemia now WNL Trend Daily #GIANNI on CKD with azotemia BUN improved on IVF can d/c IVF Trend BUN/cr #Hypercalcemia PTH is appropriately low secondary to immobilization ? low ca content in tube feeds no acute intervention warranted Trend Ca #Fever/Sacral Decubitis/Suspected UTI continue management as per primary/ID Thank you Vahid Manzano DO
[2016-08-21] MEDS: DOXAZOSIN MESYLATE 2 MG TABLET (FP) GT SCH (22:03)
[2016-08-21] MEDS: MIRTAZAPINE 30 MG TABLET (FP) PO SCH (22:03)
[2016-08-21] MEDS: OLANZapine 5 MG TABLET GT SCH (22:03)
[2016-08-21] MEDS ORDERED: INSULIN (NOVOLOG) ASPART 100 UNITS/ML 10ML VIAL ONE (22:10)
[2016-08-22] MEDS: PIPERACILLIN/TAZOB 3.375 GM 50 ML IVPB SCH ×3 (02:39→17:51)
[2016-08-22] MEDS ORDERED: INSULIN (NOVOLOG) ASPART 100 UNITS/ML 10ML VIAL ONE ×3 (05:53→23:05)
[2016-08-22] MEDS: INSULIN SLIDING SCALE (NOVOLOG) 1 VIAL SQ SCH ×4 (05:59→22:44)
[2016-08-22 07:50] LABS: CALCIUM 9.2 mg/dL (8.5-10.1); MAGNESIUM 2.3 mg/dL (1.8-2.4)
[2016-08-22 07:51] LABS: COCKROFT - GAULT 46.7755; CREATININE 0.7 mg/dL (0.55-1.02); PHOSPHOROUS 2.8 mg/dL (2.5-4.9)
[2016-08-22] MEDS ORDERED: PT OWN MED DRAWER 7, Y5N ONE (10:15)
[2016-08-22] MEDS: LACTOBACILLUS ACIDOPHILUS 1 EACH TAB (FP) GT SCH ×2 (10:52→22:43)
[2016-08-22] MEDS: ESCITALOPRAM OXALATE 5 MG/5 ML GT SCH (10:52)
[2016-08-22] MEDS: ASCORBIC ACID 500 MG/5 ML UNIT DOSE CUP GT SCH (10:54)
[2016-08-22] MEDS: MULTIVITAMINS LIQUID THERAPEUTIC 118 ML BOT GT SCH (10:54)
[2016-08-22] MEDS: COLLAGENASE CLOSTRIDIUM HIST. 30 GRAMS TUBE TP SCH (10:54)
[2016-08-22] MEDS: RANITIDINE HCL 150 MG/10 ML UNIT-DOSE CUP GT SCH (10:55)
[2016-08-22] MEDS: ACETAMINOPHEN 650 MG/20.3 ML ORAL SOLUTION (CUPS) GT PRN ×2 (11:36→22:43)
--- NOTE | 2016-08-22 15:52 | PN ---
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, Physician History of Present Illness: MORE AWAKE - Current Medication List Current Medications: Active Medications Acetaminophen (Tylenol Oral Solution -) 650 mg GT Q6H PRN PRN Reason: FEVER OR PAIN Last Admin: 08/22/16 11:36 Dose: 650 mg Ascorbic Acid (Vitamin C Oral Solution -) 250 mg GT DAILY [facility] Last Admin: 08/22/16 10:54 Dose: 250 mg Collagenase (Santyl -) 1 applic TP DAILY [facility] Last Admin: 08/22/16 10:54 Dose: 1 applic Doxazosin Mesylate (Cardura -) 2 mg GT HS [facility] Last Admin: 08/21/16 22:03 Dose: 2 mg Escitalopram Oxalate (Lexapro Oral Solution -) 10 mg GT DAILY [facility] Last Admin: 08/22/16 10:52 Dose: 10 mg Piperacillin Sod/Tazobactam Sod (Zosyn 3.375gm Ivpb (Pre-Docked)) 50 mls @ 100 mls/hr IVPB Q8H-IV [facility] PRN Reason: Protocol Last Admin: 08/22/16 10:55 Dose: 100 mls/hr Insulin Aspart (Novolog Vial Sliding Scale -) 1 vial SQ ACHS [facility] PRN Reason: Protocol Last Admin: 08/22/16 11:42 Dose: 4 units Insulin Detemir (Levemir Vial) 10 units SQ HS [facility] Last Admin: 08/21/16 22:03 Dose: 10 units Lactobacillus Acidophilus (Bacid -) 1 tab GT BID [facility] Last Admin: 08/22/16 10:52 Dose: 1 tab Mirtazapine (Remeron -) 30 mg PO HS [facility] Last Admin: 08/21/16 22:03 Dose: 30 mg Multivitamins (Thera-Plus -) 5 ml GT DAILY [facility] Last Admin: 08/22/16 10:54 Dose: 5 ml Olanzapine (Zyprexa -) 5 mg GT HS [facility] Last Admin: 08/21/16 22:03 Dose: 5 mg Ranitidine HCl (Zantac Oral Solution -) 150 mg GT DAILY [facility] Last Admin: 08/22/16 10:55 Dose: 150 mg - Objective Vital Signs: Vital Signs Temperature 98.7 F 08/22/16 14:00 Pulse Rate 80 08/22/16 14:00 Respiratory Rate 20 08/22/16 06:00 Blood Pressure 93/59 08/22/16 14:00 O2 Sat by Pulse Oximetry (%) 95 08/21/16 21:00 Cardiovascular: Yes: S1, S2 Respiratory: Yes: Regular, CTA Bilaterally Gastrointestinal: Yes: Normal Bowel Sounds, Soft Edema: No Labs: CBC, BMP 08/19/16 06:10 08/22/16 06:15 INR, PTT INR 0.99 (0.82-1.09) 08/02/16 10:01 Problem List - Problems (1) UTI (urinary tract infection) Assessment/Plan: ABX PER ID REPEAT CULTURES ID ON CASE Code(s): N39.0 - URINARY TRACT INFECTION, SITE NOT SPECIFIED Qualifiers: Qualified Code(s): N39.0 - Urinary tract infection, site not specified (2) ARF (acute renal failure) Assessment/Plan: MONITOR ON CURRENT FLUIDS DC IVF FLUIDS VIA PEG Code(s): N17.9 - ACUTE KIDNEY FAILURE, UNSPECIFIED (3) Acute bilateral deep vein thrombosis (DVT) of femoral veins Assessment/Plan: LOVENOX Code(s): I82.413 - ACUTE EMBOLISM AND THROMBOSIS OF FEMORAL VEIN, BILATERAL (4) Aortic stenosis Assessment/Plan: CARDIO Code(s): I35.0 - NONRHEUMATIC AORTIC (VALVE) STENOSIS Qualifiers: Qualified Code(s): I35.0 - Nonrheumatic aortic (valve) stenosis (5) Decubitus ulcer Assessment/Plan: SURGICAL F/U VAC PER SURGERY ABX PER ID Code(s): L89.90 - PRESSURE ULCER OF UNSPECIFIED SITE, UNSPECIFIED STAGE (6) Fever Assessment/Plan: LOW GRADE--RECULTURE ID FOLLOW UP Code(s): R50.9 - FEVER, UNSPECIFIED (7) Type 2 diabetes mellitus with other diabetic kidney complication Assessment/Plan: BGM SS Code(s): E11.29 - TYPE 2 DIABETES MELLITUS W [facility] DIABETIC KIDNEY COMPLICATION
[2016-08-22] MEDS: INSULIN DETEMIR 100 UNITS/ML MDV SQ SCH (22:43)
[2016-08-22] MEDS: OLANZapine 5 MG TABLET GT SCH (22:43)
[2016-08-22] MEDS: DOXAZOSIN MESYLATE 2 MG TABLET (FP) GT SCH (22:43)
[2016-08-22] MEDS: MIRTAZAPINE 30 MG TABLET (FP) PO SCH (22:43)
[2016-08-23] MEDS: PIPERACILLIN/TAZOB 3.375 GM 50 ML IVPB SCH ×3 (01:22→17:06)
[2016-08-23] MEDS ORDERED: INSULIN (NOVOLOG) ASPART 100 UNITS/ML 10ML VIAL ONE ×2 (06:08→21:40)
[2016-08-23] MEDS: INSULIN SLIDING SCALE (NOVOLOG) 1 VIAL SQ SCH ×4 (06:09→21:41)
[2016-08-23 07:21] LABS: CALCIUM 9.3 mg/dL (8.5-10.1); COCKROFT - GAULT 39.5165; CREATININE 0.8 mg/dL (0.55-1.02); MAGNESIUM 2.3 mg/dL (1.8-2.4); PHOSPHOROUS 3.1 mg/dL (2.5-4.9)
[2016-08-23] MEDS: COLLAGENASE CLOSTRIDIUM HIST. 30 GRAMS TUBE TP SCH (10:00)
--- NOTE | 2016-08-23 10:19 | PN ---
Progress Note (short form) - Note Progress Note: Renal Follow up for hypernatermia and CKD Pt seen and examined at the bedside no overnight events no fevers Vital Signs Temperature 97.6 F 08/23/16 06:00 Pulse Rate 79 08/23/16 06:00 Respiratory Rate 24 08/23/16 06:00 Blood Pressure 97/51 08/23/16 06:00 O2 Sat by Pulse Oximetry (%) 96 08/22/16 21:00 Intake & Output 08/20/16 08/21/16 08/22/16 08/23/16 23:59 23:59 23:59 23:59 Intake Total 2416 2550 1130 1030 Balance 2416 2550 1130 1030 Weight 97 lb 4 oz 97 lb 4 oz 100 lb 4 oz 98 lb 6.4 oz Gen: NAD CVS: RRR, No M/R Lungs: CTA Abd: Soft NT/ND. Feeding tube in place Ext: No edema, b/l BKA CBC, BMP 08/19/16 06:10 08/23/16 06:15 Laboratory Tests 08/23/16 06:15 Calcium 9.3 Phosphorus 3.1 Magnesium 2.3 Current Medications Acetaminophen (Tylenol Oral Solution -) 650 mg GT Q6H PRN PRN Reason: FEVER OR PAIN Last Admin: 08/22/16 22:43 Dose: 650 mg Ascorbic Acid (Vitamin C Oral Solution -) 250 mg GT DAILY [facility] Last Admin: 08/22/16 10:54 Dose: 250 mg Collagenase (Santyl -) 1 applic TP DAILY [facility] Last Admin: 08/22/16 10:54 Dose: 1 applic Doxazosin Mesylate (Cardura -) 2 mg GT HS [facility] Last Admin: 08/22/16 22:43 Dose: 2 mg Escitalopram Oxalate (Lexapro Oral Solution -) 10 mg GT DAILY [facility] Last Admin: 08/22/16 10:52 Dose: 10 mg Piperacillin Sod/Tazobactam Sod (Zosyn 3.375gm Ivpb (Pre-Docked)) 50 mls @ 100 mls/hr IVPB Q8H-IV [facility] PRN Reason: Protocol Last Admin: 08/23/16 01:22 Dose: 100 mls/hr Insulin Aspart (Novolog Vial Sliding Scale -) 1 vial SQ ACHS [facility] PRN Reason: Protocol Last Admin: 08/23/16 06:09 Dose: 2 units Insulin Detemir (Levemir Vial) 10 units SQ HS [facility] Last Admin: 08/22/16 22:43 Dose: 10 units Lactobacillus Acidophilus (Bacid -) 1 tab GT BID [facility] Last Admin: 08/22/16 22:43 Dose: 1 tab Mirtazapine (Remeron -) 30 mg PO HS [facility] Last Admin: 08/22/16 22:43 Dose: 30 mg Multivitamins (Thera-Plus -) 5 ml GT DAILY [facility] Last Admin: 08/22/16 10:54 Dose: 5 ml Olanzapine (Zyprexa -) 5 mg GT HS [facility] Last Admin: 08/22/16 22:43 Dose: 5 mg Ranitidine HCl (Zantac Oral Solution -) 150 mg GT DAILY [facility] Last Admin: 08/22/16 10:55 Dose: 150 mg A/P 80 year old woman with PMhx of Multiple GIANNI's, Hypernatremia, Hypertension, DM, HLD, GERD, PVD s/p b/l BKA who presented from [place] with Fever and found to have Na of 150 and Cr of 1.1. #Hypernatremia and Hyperkalemia stable on G-tube feeds #GIANNI on CKD with azotemia off IVF trend BUN/Cr #Hypercalcemia PTH is appropriately low secondary to immobilization ? Trend Corrected Ca #Fever/Sacral Decubitis/Suspected UTI continue management as per primary/ID on Zosyn Thank you Vahid Manzano DO
[2016-08-23] MEDS ORDERED: PT OWN MED DRAWER 7, Y5N ONE (10:43)
[2016-08-23] MEDS: LACTOBACILLUS ACIDOPHILUS 1 EACH TAB (FP) GT SCH ×2 (10:45→21:37)
[2016-08-23] MEDS: ESCITALOPRAM OXALATE 5 MG/5 ML GT SCH (10:46)
[2016-08-23] MEDS: MULTIVITAMINS LIQUID THERAPEUTIC 118 ML BOT GT SCH (10:46)
[2016-08-23] MEDS: ASCORBIC ACID 500 MG/5 ML UNIT DOSE CUP GT SCH (10:47)
[2016-08-23] MEDS: RANITIDINE HCL 150 MG/10 ML UNIT-DOSE CUP GT SCH (10:47)
--- NOTE | 2016-08-23 13:16 | PN ---
Progress Note, Physician History of Present Illness: MORE AWAKE - Current Medication List Current Medications: Active Medications Acetaminophen (Tylenol Oral Solution -) 650 mg GT Q6H PRN PRN Reason: FEVER OR PAIN Last Admin: 08/22/16 22:43 Dose: 650 mg Ascorbic Acid (Vitamin C Oral Solution -) 250 mg GT DAILY [facility] Last Admin: 08/23/16 10:47 Dose: 250 mg Collagenase (Santyl -) 1 applic TP DAILY [facility] Last Admin: 08/22/16 10:54 Dose: 1 applic Doxazosin Mesylate (Cardura -) 2 mg GT HS [facility] Last Admin: 08/22/16 22:43 Dose: 2 mg Escitalopram Oxalate (Lexapro Oral Solution -) 10 mg GT DAILY [facility] Last Admin: 08/23/16 10:46 Dose: 10 mg Piperacillin Sod/Tazobactam Sod (Zosyn 3.375gm Ivpb (Pre-Docked)) 50 mls @ 100 mls/hr IVPB Q8H-IV [facility] PRN Reason: Protocol Last Admin: 08/23/16 10:45 Dose: 100 mls/hr Insulin Aspart (Novolog Vial Sliding Scale -) 1 vial SQ ACHS [facility] PRN Reason: Protocol Last Admin: 08/23/16 12:12 Dose: 4 units Insulin Detemir (Levemir Vial) 10 units SQ HS [facility] Last Admin: 08/22/16 22:43 Dose: 10 units Lactobacillus Acidophilus (Bacid -) 1 tab GT BID [facility] Last Admin: 08/23/16 10:45 Dose: 1 tab Mirtazapine (Remeron -) 30 mg PO HS [facility] Last Admin: 08/22/16 22:43 Dose: 30 mg Multivitamins (Thera-Plus -) 5 ml GT DAILY [facility] Last Admin: 08/23/16 10:46 Dose: 5 ml Olanzapine (Zyprexa -) 5 mg GT HS [facility] Last Admin: 08/22/16 22:43 Dose: 5 mg Ranitidine HCl (Zantac Oral Solution -) 150 mg GT DAILY [facility] Last Admin: 08/23/16 10:47 Dose: 150 mg - Objective Vital Signs: Vital Signs Temperature 97.6 F 08/23/16 06:00 Pulse Rate 79 08/23/16 06:00 Respiratory Rate 24 08/23/16 06:00 Blood Pressure 97/51 08/23/16 06:00 O2 Sat by Pulse Oximetry (%) 96 08/22/16 21:00 Cardiovascular: Yes: S1, S2 Respiratory: Yes: Regular, CTA Bilaterally Gastrointestinal: Yes: Normal Bowel Sounds, Soft Labs: CBC, BMP 08/19/16 06:10 08/23/16 06:15 INR, PTT INR 0.99 (0.82-1.09) 08/02/16 10:01 Problem List - Problems (1) UTI (urinary tract infection) Assessment/Plan: ABX PER ID REPEAT CULTURES ID ON CASE Code(s): N39.0 - URINARY TRACT INFECTION, SITE NOT SPECIFIED Qualifiers: Qualified Code(s): N39.0 - Urinary tract infection, site not specified (2) Aortic stenosis Assessment/Plan: CARDIO Code(s): I35.0 - NONRHEUMATIC AORTIC (VALVE) STENOSIS Qualifiers: Qualified Code(s): I35.0 - Nonrheumatic aortic (valve) stenosis (3) Decubitus ulcer Assessment/Plan: VAC PER SURGERY ABX PER ID Code(s): L89.90 - PRESSURE ULCER OF UNSPECIFIED SITE, UNSPECIFIED STAGE (4) Fever Assessment/Plan: LOW GRADE--RECULTURE DONE Microbiology 08/17/16 13:13 Blood Culture - Final Blood - Peripheral Venous NO GROWTH AFTER 5 DAYS INCUBATION 08/17/16 13:20 Blood Culture - Final Blood - Peripheral Venous NO GROWTH AFTER 5 DAYS INCUBATION ID ON CASE Code(s): R50.9 - FEVER, UNSPECIFIED (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
[2016-08-23] MEDS: DOXAZOSIN MESYLATE 2 MG TABLET (FP) GT SCH (21:37)
[2016-08-23] MEDS: OLANZapine 5 MG TABLET GT SCH (21:37)
[2016-08-23] MEDS: HEPARIN NA (PORCINE) 5,000 UNITS/ML 1ML VIAL SQ SCH (21:37)
[2016-08-23] MEDS: MIRTAZAPINE 30 MG TABLET (FP) PO SCH (21:37)
[2016-08-23] MEDS: INSULIN DETEMIR 100 UNITS/ML MDV SQ SCH (21:39)
[2016-08-24] MEDS: PIPERACILLIN/TAZOB 3.375 GM 50 ML IVPB SCH ×3 (01:19→17:10)
[2016-08-24] MEDS ORDERED: INSULIN (NOVOLOG) ASPART 100 UNITS/ML 10ML VIAL ONE ×3 (06:26→16:28)
[2016-08-24] MEDS: INSULIN SLIDING SCALE (NOVOLOG) 1 VIAL SQ SCH ×4 (06:29→22:18)
[2016-08-24 08:24] LABS: CALCIUM 9.2 mg/dL (8.5-10.1); COCKROFT - GAULT 46.41; CREATININE 0.7 mg/dL (0.55-1.02); MAGNESIUM 2.3 mg/dL (1.8-2.4)
[2016-08-24 08:32] LABS: MCH 30.6 pg (25.7-33.7); MCHC 33.8 g/dl (32.0-36.0); MEAN CELL VOLUME 90.7 fl (80-96); MEAN PLT VOLUME 8.5 fl (7.5-11.1); PLATELET COUNT 362 K/MM3 (134-434); RDW 17.3 % (11.6-15.6); WHITE BLOOD COUNT 7.3 K/mm3 (4.0-10.0)
--- NOTE | 2016-08-24 09:44 | PN ---
Progress Note, Physician History of Present Illness: MORE AWAKE - Current Medication List Current Medications: Active Medications Acetaminophen (Tylenol Oral Solution -) 650 mg GT Q6H PRN PRN Reason: FEVER OR PAIN Last Admin: 08/22/16 22:43 Dose: 650 mg Ascorbic Acid (Vitamin C Oral Solution -) 250 mg GT DAILY [facility] Last Admin: 08/23/16 10:47 Dose: 250 mg Collagenase (Santyl -) 1 applic TP DAILY [facility] Last Admin: 08/23/16 10:00 Dose: Not Given Doxazosin Mesylate (Cardura -) 2 mg GT HS [facility] Last Admin: 08/23/16 21:37 Dose: 2 mg Escitalopram Oxalate (Lexapro Oral Solution -) 10 mg GT DAILY [facility] Last Admin: 08/23/16 10:46 Dose: 10 mg Heparin Sodium (Porcine) (Heparin -) 5,000 unit SQ BID [facility] Last Admin: 08/23/16 21:37 Dose: 5,000 unit Piperacillin Sod/Tazobactam Sod (Zosyn 3.375gm Ivpb (Pre-Docked)) 50 mls @ 100 mls/hr IVPB Q8H-IV [facility] PRN Reason: Protocol Last Admin: 08/24/16 01:19 Dose: 100 mls/hr Insulin Aspart (Novolog Vial Sliding Scale -) 1 vial SQ ACHS [facility] PRN Reason: Protocol Last Admin: 08/24/16 06:29 Dose: 4 units Insulin Detemir (Levemir Vial) 10 units SQ HS [facility] Last Admin: 08/23/16 21:39 Dose: 10 units Lactobacillus Acidophilus (Bacid -) 1 tab GT BID [facility] Last Admin: 08/23/16 21:37 Dose: 1 tab Mirtazapine (Remeron -) 30 mg PO HS [facility] Last Admin: 08/23/16 21:37 Dose: 30 mg Multivitamins (Thera-Plus -) 5 ml GT DAILY [facility] Last Admin: 08/23/16 10:46 Dose: 5 ml Olanzapine (Zyprexa -) 5 mg GT HS [facility] Last Admin: 08/23/16 21:37 Dose: 5 mg Ranitidine HCl (Zantac Oral Solution -) 150 mg GT DAILY [facility] Last Admin: 08/23/16 10:47 Dose: 150 mg - Objective Vital Signs: Vital Signs Temperature 97.6 F 08/24/16 05:56 Pulse Rate 76 05/30/17 05:56 Respiratory Rate 20 08/24/16 05:56 Blood Pressure 113/61 08/24/16 05:56 O2 Sat by Pulse Oximetry (%) 97 08/23/16 21:00 Cardiovascular: Yes: S1, S2 Respiratory: Yes: Regular, CTA Bilaterally Gastrointestinal: Yes: Normal Bowel Sounds, Soft Labs: CBC, BMP 08/24/16 06:20 08/24/16 06:20 INR, PTT INR 0.99 (0.82-1.09) 08/02/16 10:01 Problem List - Problems (1) UTI (urinary tract infection) Assessment/Plan: ABX PER ID--ON ZOSYN--ID F/U REPEAT CULTURES ID ON CASE Code(s): N39.0 - URINARY TRACT INFECTION, SITE NOT SPECIFIED Qualifiers: Qualified Code(s): N39.0 - Urinary tract infection, site not specified (2) Aortic stenosis Assessment/Plan: C[facility]IO Code(s): I35.0 - NONRHEUMATIC AORTIC (VALVE) STENOSIS Qualifiers: Qualified Code(s): I35.0 - Nonrheumatic aortic (valve) stenosis (3) Decubitus ulcer Assessment/Plan: VAC PER SURGERY ABX PER ID Code(s): L89.90 - PRESSURE ULCER OF UNSPECIFIED SITE, UNSPECIFIED STAGE (4) Fever Assessment/Plan: Vital Signs Temp 97.6 F 08/24/16 05:56 Pulse 76 08/24/16 05:56 Resp 20 08/24/16 05:56 BP 113/61 08/24/16 05:56 Pulse Ox 97 08/23/16 21:00 Microbiology 08/22/16 16:30 Gram Stain - Final Coccyx Code(s): R50.9 - FEVER, UNSPECIFIED (5) Type 2 diabetes mellitus with other diabetic kidney complication Assessment/Plan: [facility] Code(s): E11.29 - TYPE 2 DIABETES MELLITUS W OTH DIABETIC KIDNEY COMPLICATION Assessment/Plan [facility]
[2016-08-24 10:29] LABS: PLATELET ESTIMATE ADEQUATE (NORMAL)
--- NOTE | 2016-08-24 10:35 | PN ---
Progress Note, Physician History of Present Illness: Awake, responsive Afebrile WbC WNL - Current Medication List Current Medications: Active Medications Acetaminophen (Tylenol Oral Solution -) 650 mg GT Q6H PRN PRN Reason: FEVER OR PAIN Last Admin: 08/22/16 22:43 Dose: 650 mg Ascorbic Acid (Vitamin C Oral Solution -) 250 mg GT DAILY [facility] Last Admin: 08/23/16 10:47 Dose: 250 mg Collagenase (Santyl -) 1 applic TP DAILY [facility] Last Admin: 08/23/16 10:00 Dose: Not Given Doxazosin Mesylate (Cardura -) 2 mg GT HS [facility] Last Admin: 08/23/16 21:37 Dose: 2 mg Escitalopram Oxalate (Lexapro Oral Solution -) 10 mg GT DAILY [facility] Last Admin: 08/23/16 10:46 Dose: 10 mg Heparin Sodium (Porcine) (Heparin -) 5,000 unit SQ BID [facility] Last Admin: 08/23/16 21:37 Dose: 5,000 unit Piperacillin Sod/Tazobactam Sod (Zosyn 3.375gm Ivpb (Pre-Docked)) 50 mls @ 100 mls/hr IVPB Q8H-IV [facility] PRN Reason: Protocol Last Admin: 08/24/16 01:19 Dose: 100 mls/hr Insulin Aspart (Novolog Vial Sliding Scale -) 1 vial SQ ACHS [facility] PRN Reason: Protocol Last Admin: 08/24/16 06:29 Dose: 4 units Insulin Detemir (Levemir Vial) 10 units SQ HS [facility] Last Admin: 08/23/16 21:39 Dose: 10 units Lactobacillus Acidophilus (Bacid -) 1 tab GT BID [facility] Last Admin: 08/23/16 21:37 Dose: 1 tab Mirtazapine (Remeron -) 30 mg PO HS [facility] Last Admin: 08/23/16 21:37 Dose: 30 mg Multivitamins (Thera-Plus -) 5 ml GT DAILY [facility] Last Admin: 08/23/16 10:46 Dose: 5 ml Olanzapine (Zyprexa -) 5 mg GT HS [facility] Last Admin: 08/23/16 21:37 Dose: 5 mg Ranitidine HCl (Zantac Oral Solution -) 150 mg GT DAILY [facility] Last Admin: 08/23/16 10:47 Dose: 150 mg - Objective Vital Signs: Vital Signs Temperature 97.6 F 08/24/16 05:56 Pulse Rate 76 08/24/16 05:56 Respiratory Rate 20 08/24/16 05:56 Blood Pressure 113/61 08/24/16 05:56 O2 Sat by Pulse Oximetry (%) 97 08/23/16 21:00 Constitutional: Yes: No Distress Eyes: Yes: Conjunctiva Clear Cardiovascular: Yes: Regular Rate and Rhythm, S1, S2 Respiratory: Yes: CTA Bilaterally Gastrointestinal: Yes: Normal Bowel Sounds, Soft. No: Tenderness Extremities: Yes: Other (S/P B/L BKA) Integumentary: Yes: Other (VAC in place) Labs: CBC, BMP 08/24/16 06:20 08/24/16 06:20 INR, PTT INR 0.99 (0.82-1.09) 08/02/16 10:01 Assessment/Plan S/P UTI/ Sepsis secondary to UTI v. 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 source- resolved Stage IV sacral decubitus Hx ESBL OBS D/C antibiotics, observe off Local wound care
[2016-08-24] MEDS ORDERED: PT OWN MED DRAWER 7, Y5N ONE (10:38)
[2016-08-24] MEDS: HEPARIN NA (PORCINE) 5,000 UNITS/ML 1ML VIAL SQ SCH ×2 (10:41→22:22)
[2016-08-24] MEDS: RANITIDINE HCL 150 MG/10 ML UNIT-DOSE CUP GT SCH (10:42)
[2016-08-24] MEDS: LACTOBACILLUS ACIDOPHILUS 1 EACH TAB (FP) GT SCH ×2 (10:42→22:23)
[2016-08-24] MEDS: ESCITALOPRAM OXALATE 5 MG/5 ML GT SCH (10:42)
[2016-08-24] MEDS: ASCORBIC ACID 500 MG/5 ML UNIT DOSE CUP GT SCH (10:43)
[2016-08-24] MEDS: ACETAMINOPHEN 650 MG/20.3 ML ORAL SOLUTION (CUPS) GT PRN ×2 (10:43→17:10)
[2016-08-24] MEDS: COLLAGENASE CLOSTRIDIUM HIST. 30 GRAMS TUBE TP SCH (10:43)
--- NOTE | 2016-08-24 11:36 | PN ---
Progress Note (short form) - Note Progress Note: Renal Follow up for hypernatermia and CKD Pt seen and examined at the bedside awake and alert, appears to be in discomfort no fevers no overnight events Vital Signs Temperature 97.6 F 08/24/16 05:56 Pulse Rate 76 08/24/16 05:56 Respiratory Rate 20 08/24/16 05:56 Blood Pressure 113/61 08/24/16 05:56 O2 Sat by Pulse Oximetry (%) 97 08/23/16 21:00 Intake & Output 08/21/16 08/22/16 08/23/16 08/24/16 23:59 23:59 23:59 23:59 Intake Total 2550 2110 2160 980 Balance 2550 2110 2160 980 Weight 97 lb 4 oz 100 lb 4 oz 98 lb 6.4 oz 101 lb 2 oz Gen: NAD CVS: RRR, No M/R Lungs: CTA Abd: Soft NT/ND. Feeding tube in place Ext: No edema, b/l BKA CBC, BMP 08/24/16 06:20 08/24/16 06:20 Laboratory Tests 08/24/16 06:20 Calcium 9.2 Phosphorus 3.0 Magnesium 2.3 Current Medications Acetaminophen (Tylenol Oral Solution -) 650 mg GT Q6H PRN PRN Reason: FEVER OR PAIN Last Admin: 08/24/16 10:43 Dose: 650 mg Ascorbic Acid (Vitamin C Oral Solution -) 250 mg GT DAILY [facility] Last Admin: 08/24/16 10:43 Dose: 250 mg Collagenase (Santyl -) 1 applic TP DAILY [facility] Last Admin: 08/24/16 10:43 Dose: Not Given Doxazosin Mesylate (Cardura -) 2 mg GT HS [facility] Last Admin: 08/23/16 21:37 Dose: 2 mg Escitalopram Oxalate (Lexapro Oral Solution -) 10 mg GT DAILY [facility] Last Admin: 08/24/16 10:42 Dose: 10 mg Heparin Sodium (Porcine) (Heparin -) 5,000 unit SQ BID [facility] Last Admin: 08/24/16 10:41 Dose: 5,000 unit Piperacillin Sod/Tazobactam Sod (Zosyn 3.375gm Ivpb (Pre-Docked)) 50 mls @ 100 mls/hr IVPB Q8H-IV [facility] PRN Reason: Protocol Last Admin: 08/24/16 10:41 Dose: 100 mls/hr Insulin Aspart (Novolog Vial Sliding Scale -) 1 vial SQ ACHS [facility] PRN Reason: Protocol Last Admin: 08/24/16 06:29 Dose: 4 units Insulin Detemir (Levemir Vial) 10 units SQ HS [facility] Last Admin: 08/23/16 21:39 Dose: 10 units Lactobacillus Acidophilus (Bacid -) 1 tab GT BID [facility] Last Admin: 08/24/16 10:42 Dose: 1 tab Mirtazapine (Remeron -) 30 mg PO HS [facility] Last Admin: 08/23/16 21:37 Dose: 30 mg Multivitamins (Thera-Plus -) 5 ml GT DAILY [facility] Last Admin: 08/23/16 10:46 Dose: 5 ml Olanzapine (Zyprexa -) 5 mg GT HS [facility] Last Admin: 08/23/16 21:37 Dose: 5 mg Ranitidine HCl (Zantac Oral Solution -) 150 mg GT DAILY [facility] Last Admin: 08/24/16 10:42 Dose: 150 mg A/P 80 year old woman with PMhx of Multiple GIANNI's, Hypernatremia, Hypertension, DM, HLD, GERD, PVD s/p b/l BKA who [place] Fever and found to have Na of 150 and Cr of 1.1. #Hypernatremia and Hyperkalemia stable on G-tube feeds #GIANNI on CKD with azotemia BUN/Cr stable #Hypercalcemia PTH is appropriately low secondary to immobilization ? Trend Corrected Ca #Fever/Sacral Decubitis/Suspected UTI continue management as per primary/ID no recent fevers wound care Thank you Vahid Manzano DO
[2016-08-24] MEDS: MULTIVITAMINS LIQUID THERAPEUTIC 118 ML BOT GT SCH (14:29)
[2016-08-24 15:09] LABS: MCH 30.2 pg (25.7-33.7); MCHC 33.4 g/dl (32.0-36.0); MEAN CELL VOLUME 90.6 fl (80-96); MEAN PLT VOLUME 8.5 fl (7.5-11.1); PLATELET COUNT 374 K/MM3 (134-434); RDW 17.1 % (11.6-15.6); WHITE BLOOD COUNT 8.4 K/mm3 (4.0-10.0)
[2016-08-24] MEDS: MIRTAZAPINE 30 MG TABLET (FP) PO SCH (22:22)
[2016-08-24] MEDS: DOXAZOSIN MESYLATE 2 MG TABLET (FP) GT SCH (22:22)
[2016-08-24] MEDS: INSULIN DETEMIR 100 UNITS/ML MDV SQ SCH (22:23)
[2016-08-24] MEDS: OLANZapine 5 MG TABLET GT SCH (22:23)
[2016-08-25] MEDS: PIPERACILLIN/TAZOB 3.375 GM 50 ML IVPB SCH ×3 (02:11→18:12)
[2016-08-25] MEDS: INSULIN SLIDING SCALE (NOVOLOG) 1 VIAL SQ SCH ×3 (06:05→16:31)
--- NOTE | 2016-08-25 08:46 | DS ---
Physical Examination Vital Signs: Vital Signs Temperature 98.0 F 08/25/16 06:26 Pulse Rate 84 08/25/16 06:26 Respiratory Rate 20 08/25/16 06:26 Blood Pressure 118/64 08/25/16 06:26 O2 Sat by Pulse Oximetry (%) 100 08/24/16 21:00 Cardiovascular: Yes: S1, S2 Respiratory: Yes: Regular, CTA Bilaterally Gastrointestinal: Yes: Normal Bowel Sounds, Soft Extremities: Yes: Amputation Wound/Incision: Yes: Other (VAC) Labs: CBC, BMP 08/24/16 15:00 08/24/16 06:20 Discharge Summary Reason For Visit: SEPSIS Current Active Problems Severe sepsis (Acute) UTI (urinary tract infection) (Acute) Hospital Course: - Problems (1) UTI (urinary tract infection) Assessment/Plan: ABX PER ID--OFF ZOSYN--ID F/U NOTED REPEAT CULTURES NOTED Microbiology 08/17/16 13:30 Urine - Urine - Catheterized Urine Culture - Final NO GROWTH OBTAINED Code(s): N39.0 - URINARY TRACT INFECTION, SITE NOT SPECIFIED Qualifiers: Qualified Code(s): N39.0 - Urinary tract infection, site not specified (2) Aortic stenosis Assessment/Plan: CARDIO--MONITOR Code(s): I35.0 - NONRHEUMATIC AORTIC (VALVE) STENOSIS Qualifiers: Qualified Code(s): I35.0 - Nonrheumatic aortic (valve) stenosis (3) Decubitus ulcer Assessment/Plan: RX WITH VAC PER SURGERY OFF ABX PER ID Code(s): L89.90 - PRESSURE ULCER OF UNSPECIFIED SITE, UNSPECIFIED STAGE (4) Anemia S/P PRBC HGB 11 (5) Type 2 diabetes mellitus with other diabetic kidney complication Assessment/Plan: BGM Code(s): E11.29 - TYPE 2 DIABETES MELLITUS W OTH DIABETIC KIDNEY COMPLICATION Condition: Stable - Instructions Diet, Activity, Other Instructions: follow labs Referrals: Rashawn Garcia MD [Primary Care Provider] - Disposition: INTERMEDIATE FACILITY - Home Medications Comprehensive Discharge Medication List: Ambulatory Orders Collagenase Clostridium Hist. [Santyl -] 1 applic TP DAILY tube 08/25/16 Doxazosin Mesylate [Cardura -] 2 mg GT HS tablet 08/25/16 Escitalopram Oxalate [Lexapro 5mg/5mL Oral Solution -] 10 mg GT DAILY ml Heparin - 5,000 unit SQ BID vial 08/25/16 Insulin (Levemir) [Levemir Vial] 10 units SQ HS ml 08/25/16 Insulin Sliding Scale [Novolog Vial Sliding Scale -] 1 vial SQ ACHS units 08/25 Lactobacillus Acidophilus [Bacid -] 1 tab GT BID tab 08/25/16 Mirtazapine [Remeron -] 30 mg PO HS tablet 08/25/16 Olanzapine [Zyprexa -] 5 mg GT HS tablet 08/25/16 Ranitidine Oral Solution [Zantac Oral Solution -] 150 mg GT DAILY ml 08/25/16
[2016-08-25] MEDS ORDERED: FUROSEMIDE 40 MG/4 ML INJECTABLE VIAL IVPB ONE (09:15)
[2016-08-25 09:22] LABS: MCH 29.8 pg (25.7-33.7); MCHC 33.5 g/dl (32.0-36.0); MEAN CELL VOLUME 88.9 fl (80-96); MEAN PLT VOLUME 7.9 fl (7.5-11.1); PLATELET COUNT 390 K/MM3 (134-434); RDW 17.2 % (11.6-15.6); WHITE BLOOD COUNT 9.6 K/mm3 (4.0-10.0)
[2016-08-25 09:48] LABS: CALCIUM 9.2 mg/dL (8.5-10.1); COCKROFT - GAULT 55.182; CREATININE 0.6 mg/dL (0.55-1.02); MAGNESIUM 2.2 mg/dL (1.8-2.4); PHOSPHOROUS 2.8 mg/dL (2.5-4.9)
[2016-08-25] MEDS ORDERED: PT OWN MED DRAWER 7, Y5N ONE (10:22)
[2016-08-25] MEDS: LACTOBACILLUS ACIDOPHILUS 1 EACH TAB (FP) GT SCH (10:24)
[2016-08-25] MEDS: RANITIDINE HCL 150 MG/10 ML UNIT-DOSE CUP GT SCH (10:24)
[2016-08-25] MEDS: HEPARIN NA (PORCINE) 5,000 UNITS/ML 1ML VIAL SQ SCH (10:24)
[2016-08-25] MEDS: ESCITALOPRAM OXALATE 5 MG/5 ML GT SCH (10:25)
[2016-08-25] MEDS: MULTIVITAMINS LIQUID THERAPEUTIC 118 ML BOT GT SCH (10:25)
[2016-08-25 10:40] LABS: METAMYELOCYTE 1 % (0-2)
[2016-08-25 10:41] LABS: PLATELET ESTIMATE ADEQUATE (NORMAL)
[2016-08-25] MEDS: ASCORBIC ACID 500 MG/5 ML UNIT DOSE CUP GT SCH (12:00)
[2016-08-25] MEDS ORDERED: INSULIN (NOVOLOG) ASPART 100 UNITS/ML 10ML VIAL ONE ×2 (12:56→16:30)
--- NOTE | 2016-08-25 13:51 | PN ---
Progress Note (short form) - Note Progress Note: Renal Follow up for hypernatermia and CKD Pt seen and examined at the bedside awake and alert no overnight vents no fevers for discharge today Vital Signs Temperature 98.0 F 08/25/16 06:26 Pulse Rate 84 08/25/16 06:26 Respiratory Rate 20 08/25/16 06:26 Blood Pressure 118/64 08/25/16 06:26 O2 Sat by Pulse Oximetry (%) 100 08/24/16 21:00 Intake & Output 08/22/16 08/23/16 08/24/16 08/25/16 23:59 23:59 23:59 23:59 Intake Total 2109 2160 980 550 Output Total 700 Balance 2109 2160 280 550 Weight 100 lb 4 oz 98 lb 6.4 oz 101 lb 2 oz 103 lb 1 oz Gen: NAD CVS: RRR, No M/R Lungs: CTA Abd: Soft NT/ND. Feeding tube in place Ext: No edema, b/l BKA CBC, BMP 08/25/16 09:00 08/25/16 09:00 Current Medications Acetaminophen (Tylenol Oral Solution -) 650 mg GT Q6H PRN PRN Reason: FEVER OR PAIN Last Admin: 08/24/16 17:10 Dose: 650 mg Ascorbic Acid (Vitamin C Oral Solution -) 250 mg GT DAILY [facility] Last Admin: 08/25/16 12:00 Dose: 250 mg Collagenase (Santyl -) 1 applic TP DAILY [facility] Last Admin: 08/24/16 10:43 Dose: Not Given Doxazosin Mesylate (Cardura -) 2 mg GT HS [facility] Last Admin: 08/24/16 22:22 Dose: 2 mg Escitalopram Oxalate (Lexapro Oral Solution -) 10 mg GT DAILY [facility] Last Admin: 08/25/16 10:25 Dose: 10 mg Heparin Sodium (Porcine) (Heparin -) 5,000 unit SQ BID [facility] Last Admin: 08/25/16 10:24 Dose: 5,000 unit Piperacillin Sod/Tazobactam Sod (Zosyn 3.375gm Ivpb (Pre-Docked)) 50 mls @ 100 mls/hr IVPB Q8H-IV [facility] PRN Reason: Protocol Last Admin: 08/25/16 10:20 Dose: 100 mls/hr Insulin Aspart (Novolog Vial Sliding Scale -) 1 vial SQ ACHS [facility] PRN Reason: Protocol Last Admin: 08/25/16 06:05 Dose: 2 units Insulin Detemir (Levemir Vial) 10 units SQ HS [facility] Last Admin: 08/24/16 22:23 Dose: 10 units Lactobacillus Acidophilus (Bacid -) 1 tab GT BID [facility] Last Admin: 08/25/16 10:24 Dose: 1 tab Mirtazapine (Remeron -) 30 mg PO HS [facility] Last Admin: 08/24/16 22:22 Dose: 30 mg Multivitamins (Thera-Plus -) 5 ml GT DAILY [facility] Last Admin: 08/25/16 10:25 Dose: 5 ml Olanzapine (Zyprexa -) 5 mg GT HS [facility] Last Admin: 08/24/16 22:23 Dose: 5 mg Ranitidine HCl (Zantac Oral Solution -) 150 mg GT DAILY [facility] Last Admin: 08/25/16 10:24 Dose: 150 mg A/P 80 year old woman with PMhx of Multiple GIANNI's, Hypernatremia, Hypertension, DM, HLD, GERD, PVD s/p b/l BKA who presented from [place] with Fever and found to have Na of 150 and Cr of 1.1. #Hypernatremia and Hyperkalemia continue current feeds as free water as an outpatient #GIANNI on CKD with azotemia BUN/Cr stable #Hypercalcemia PTH is appropriately low secondary to immobilization ? Trend Corrected Ca #Fever/Sacral Decubitis/Suspected UTI wound care off Abx Thank you for allowing us to take part in the care of this patient Thank you Vahid Manzano DO
[2016-08-25 14:54] VITALS: BP 130/65; PULSE 75; TEMP 97.9
--- NOTE | 2016-08-25 16:21 | PN ---
Progress Note, Physician Chief Complaint: Awake, confused No acute distress Afebrile WBC WNL Wound c/s polymicrobial - Current Medication List Current Medications: Active Medications Acetaminophen (Tylenol Oral Solution -) 650 mg GT Q6H PRN PRN Reason: FEVER OR PAIN Last Admin: 08/24/16 17:10 Dose: 650 mg Ascorbic Acid (Vitamin C Oral Solution -) 250 mg GT DAILY [facility] Last Admin: 08/25/16 12:00 Dose: 250 mg Collagenase (Santyl -) 1 applic TP DAILY [facility] Last Admin: 08/24/16 10:43 Dose: Not Given Doxazosin Mesylate (Cardura -) 2 mg GT HS [facility] Last Admin: 08/24/16 22:22 Dose: 2 mg Escitalopram Oxalate (Lexapro Oral Solution -) 10 mg GT DAILY [facility] Last Admin: 08/25/16 10:25 Dose: 10 mg Heparin Sodium (Porcine) (Heparin -) 5,000 unit SQ BID [facility] Last Admin: 08/25/16 10:24 Dose: 5,000 unit Piperacillin Sod/Tazobactam Sod (Zosyn 3.375gm Ivpb (Pre-Docked)) 50 mls @ 100 mls/hr IVPB Q8H-IV [facility] PRN Reason: Protocol Last Admin: 08/25/16 10:20 Dose: 100 mls/hr Insulin Aspart (Novolog Vial Sliding Scale -) 1 vial SQ ACHS [facility] PRN Reason: Protocol Last Admin: 08/25/16 14:40 Dose: 4 units Insulin Detemir (Levemir Vial) 10 units SQ HS [facility] Last Admin: 08/24/16 22:23 Dose: 10 units Lactobacillus Acidophilus (Bacid -) 1 tab GT BID [facility] Last Admin: 08/25/16 10:24 Dose: 1 tab Mirtazapine (Remeron -) 30 mg PO HS [facility] Last Admin: 08/24/16 22:22 Dose: 30 mg Multivitamins (Thera-Plus -) 5 ml GT DAILY [facility] Last Admin: 08/25/16 10:25 Dose: 5 ml Olanzapine (Zyprexa -) 5 mg GT HS [facility] Last Admin: 08/24/16 22:23 Dose: 5 mg Ranitidine HCl (Zantac Oral Solution -) 150 mg GT DAILY [facility] Last Admin: 08/25/16 10:24 Dose: 150 mg - Objective Vital Signs: Vital Signs Temperature 97.9 F 08/25/16 14:52 Pulse Rate 75 08/25/16 14:52 Respiratory Rate 20 08/25/16 06:26 Blood Pressure 130/65 08/25/16 14:52 O2 Sat by Pulse Oximetry (%) 97 08/25/16 14:35 Constitutional: Yes: No Distress Eyes: Yes: Conjunctiva Clear Cardiovascular: Yes: Regular Rate and Rhythm, S1, S2 Respiratory: Yes: CTA Bilaterally Gastrointestinal: Yes: Normal Bowel Sounds, Soft. No: Tenderness Extremities: Yes: Other (s/p bilateral BKA) Integumentary: Yes: Other (Stage 4 sacral decubitus Wound deep but clean No purulence or foul odor) Labs: CBC, BMP 08/25/16 09:00 08/25/16 09:00 INR, PTT INR 0.99 (0.82-1.09) 08/02/16 10:01 Assessment/Plan S/P UTI/ Sepsis secondary to UTI v. 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
== END 2016-08-25 19:35 | DRG 871 ==
LOC: JER 09:24 → JERBED 14:04 → UNDOADMIN 14:04 → JERBED 21:45 → J4W 22:20 → J6S 08-12 11:08
PROVIDERS: ADMIT Family Medicine; ATTEND Family Medicine
PROC: 3E0H76Z Introduction of Nutritional Substance into Lower GI, Via Natural or Artificial Opening (ICD-10-PCS; 2016-08-02)
PROC: 30233N1 Transfusion of Nonautologous Red Blood Cells into Peripheral Vein, Percutaneous Approach (ICD-10-PCS; principal; 2016-08-05)
DX: A41.9 Sepsis, unspecified organism (principal); L89.154 Pressure ulcer of sacral region, stage 4; N39.0 Urinary tract infection, site not specified; E87.0 Hyperosmolality and hypernatremia; N17.9 Acute kidney failure, unspecified; I13.0 Hypertensive heart and chronic kidney disease with heart failure and stage 1 through stage 4 chronic kidney disease, or unspecified chronic kidney disease; I47.2 Ventricular tachycardia; R64 Cachexia; Z68.1 Body mass index [BMI] 19.9 or less, adult; R47.01 Aphasia; I35.0 Nonrheumatic aortic (valve) stenosis; Z89.512 Acquired absence of left leg below knee; Z89.511 Acquired absence of right leg below knee; E11.51 Type 2 diabetes mellitus with diabetic peripheral angiopathy without gangrene; Z79.4 Long term (current) use of insulin; K21.9 Gastro-esophageal reflux disease without esophagitis; F03.90 Unspecified dementia, unspecified severity, without behavioral disturbance, psychotic disturbance, mood disturbance, and anxiety; Z93.1 Gastrostomy status; E83.41 Hypermagnesemia; Z86.73 Personal history of transient ischemic attack (TIA), and cerebral infarction without residual deficits; Z86.718 Personal history of other venous thrombosis and embolism; Z79.01 Long term (current) use of anticoagulants; E11.22 Type 2 diabetes mellitus with diabetic chronic kidney disease; E11.65 Type 2 diabetes mellitus with hyperglycemia; I50.9 Heart failure, unspecified; E83.39 Other disorders of phosphorus metabolism; E86.0 Dehydration; B96.1 Klebsiella pneumoniae [K. pneumoniae] as the cause of diseases classified elsewhere; N18.3 Chronic kidney disease, stage 3 (moderate); R65.20 Severe sepsis without septic shock; D64.9 Anemia, unspecified
CPT/HCPCS: 36415; 36430; 36511; 36600; 71010-TC; 80048; 80053; 81003; 81015; 82272; 82550; 82570; 82728; 82803; 83540; 83550; 83605; 83735; 83970; 84100; 84156; 84300; 84484; 84540; 85025; 85027; 85610; 85730; 86850; 86870; 86880; 86900; 86901; 86902; 86922; 87040; 87070; 87077; 87086; 87186; 87205; 93005; 93010; 94640; 99285-25; J1644; J1756; J3480; P9038; P9058

== ENCOUNTER 2016-09-06 08:53 | Inpatient (IN) | payer OTHER ==
--- NOTE | 2016-09-06 09:25 | PDOC ---
History of Present Illness - General History Source: Patient, Old Records Exam Limitations: No Limitations <Candice Chowdary - Last Filed: 09/06/16 11:56> - History of Present Illness Initial Comments: 09/06/16 10:32 Patient is an 81 year old female with significant medical hx of anemia, acute kidney failure, IDDM, dementia, HTN, HLD, CHF, GERD, and CVA who has been sent to the ED for uncontrolled blood glucose and fever. Patient is non-verbal at baseline and history was provided by long-term papers. Patient had a temp of 100.4 and a blood glucose measurement of 600 in the long-term. She was last given tylenol via PEG tube at 7:45 AM. Patients history is limited. PCP: Rashawn Garcia <Chloe Hairston - Last Filed: 09/06/16 13:08> - General Chief Complaint: Blood Sugar Problem Stated Complaint: BLOOD SUGAR PROBLEM Time Seen by Provider: 09/06/16 09:24 Past History - Past Medical History Anemia: Yes Asthma: No Cancer: No Cardiac Disorders: No CVA: Yes COPD: No CHF: Yes Dementia: Yes Diabetes: Yes (iddm) GI Disorders: Yes HTN: Yes Hypercholesterolemia: Yes Kidney Stones: No (acute kidney failure) Psychiatric Problems: Yes (anxeity,agitation,depression) Seizures: No Thyroid Disease: Yes - Surgical History Abdominal Surgery: Yes (GT PLACEMENT.) - Reproductive History Ectopic : No Polycystic Ovaries: No - Psycho/Social/Smoking Cessation Hx Anxiety: No Suicidal Ideation: No Smoking Status: No Smoking History: Unknown if ever smoked Have you smoked in the past 12 months: No Number of Cigarettes Smoked Daily: 0 Hx Alcohol Use: No Drug/Substance Use Hx: No Substance Use Type: None Hx Substance Use Treatment: No <Candice Chowdary - Last Filed: 09/06/16 11:56> <Chloe Hairston - Last Filed: 09/06/16 13:08> - Past Medical History Allergies/Adverse Reactions: Allergies Allergy/AdvReac Type Severity Reaction Status Date / Time No Known Drug Allergies Allergy Verified 09/06/16 09:20 Home Medications: Ambulatory Orders Doxazosin Mesylate [Cardura -] 2 mg GT HS tablet 08/25/16 Escitalopram Oxalate [Lexapro 5mg/5mL Oral Solution -] 10 mg GT DAILY ml Heparin - 5,000 unit SQ BID vial 08/25/16 Insulin Sliding Scale [Novolog Vial Sliding Scale -] 1 vial SQ ACHS units 08/25 Lactobacillus Acidophilus [Bacid -] 1 tab GT BID tab 08/25/16 Olanzapine [Zyprexa -] 5 mg GT HS tablet 08/25/16 Ranitidine Oral Solution [Zantac Oral Solution -] 150 mg GT DAILY ml 08/25/16 Aa/Hydrolyzed Collagen, Whey [Lps Neutral Flavor Liquid] 30 ml PO BID 09/06/16 Ascorbic Acid [Vitamin C] 500 mg GT BID 09/06/16 Ceftriaxone Na/Dextrose,Iso [Ceftriaxone 1 gm-D5w Bag] 1 gm IV DAILY 09/06/16 Fentanyl 1 each TD Q72H 09/06/16 Insulin (Levemir) [Levemir Vial] 12 units SQ HS 09/06/16 Insulin Detemir [Levemir Flextouch] 8 unit SQ AM 09/06/16 Mirtazapine [Remeron -] 30 mg GT HS 09/06/16 Nystatin Powder [Nystop Topical Powder -] 60 gm TP TID 09/06/16 Vitamin B Comp W-C [Nephro-Rafael -] 1 tablet GT DAILY 09/06/16 Zinc Sulfate 220 mg GT DAILY 09/06/16 Review of Systems - Review of Systems Comments:: 09/06/16 10:32 Unable to perform ROS. <Chloe Hairston - Last Filed: 09/06/16 13:08> *Physical Exam - Vital Signs Last Vital Signs Temp Pulse Resp BP Pulse Ox 100.7 F H 98 H 18 115/70 92 L 09/06/16 09:30 09/06/16 09:30 09/06/16 09:30 09/06/16 09:30 09/06/16 09:30 - Physical Exam Comments: 09/06/16 10:33 GENERAL: Awake, alert, nonverbal, in no acute distress HEAD: No signs of trauma EYES: PERRLA, EOMI, sclera anicteric, conjunctiva clear ENT: Auricles normal inspection, hearing grossly normal, nares patent, oropharynx clear without exudates. Moist mucosa NECK: Normal ROM, supple, no lymphadenopathy, JVD, or masses LUNGS: Lung exam limited by patient effort. Breath sounds equal but poor inspiratory effort. HEART: Regular rate and rhythm, normal S1 and S2, asystolic ejection murmur. No rubs or gallops ABDOMEN: G-tube clean, dry, and intact. Soft, nontender, normoactive bowel sounds. No guarding, no rebound. No masses EXTREMITIES: Normal range of motion, no edema. No clubbing or cyanosis. No cords, erythema, or tenderness NEUROLOGICAL: Awake, nonverbal. Limited exam. SKIN: Stage III sacral decubitus ulcer with a VAC dressing with surrounding erythema. Warm, Dry, normal turgor, no rashes or lesions noted. HEMATOLOGIC/LYMPHATIC: No anemia, easy bleeding, or history of blood clots. ALLERGIC/IMMUNOLOGIC: No hives or skin allergy. <Chloe Hairston - Last Filed: 09/06/16 13:08> Heart Score/ECG Review #1 09/06/16 10:35 Normal sinus rhythm at [address] bpm [place] normal [address] depression in 1 and aVL <Chloe Hairston - Last Filed: 09/06/16 13:08> ED Treatment Course - LABORATORY CBC & Chemistry Diagram: 09/06/16 10:00 09/06/16 10:00 <Candice Chowdary - Last Filed: 09/06/16 11:56> - LABORATORY CBC & Chemistry Diagram: 09/06/16 10:00 09/06/16 10:00 - Medications Given in the ED: ED Medications Discontinued Medications Generic Name Dose Route Start Last Admin Trade Name Freq PRN Reason Stop Dose Admin Sodium Chloride 1,000 mls @ 2,000 mls/hr 09/06/16 09:44 09/06/16 10:22 Normal Saline - IV 09/06/16 10:13 2,000 mls/hr ASDIR STA Administration - Consult/PCP Time Called: 12:30 (Dr. Huertas paged twice. During the second page, Dr. Galaviz was paged as well. Still no call back.) Case discussed with personal care physician: Bjorn Huertas - Additional Consults Time Called: 13:00 Consult/PCP: Bjorn Galaviz Reason/Comments: Dr. Galaviz was reached on his cell phone. <Chloe Hairston - Last Filed: 09/06/16 13:08> Medical Decision Making - Medical Decision Making 09/06/16 10:19 81-year-old female with history of diabetes, bilateral BKA, A. fib, CHF, stage III sacral decubitus with wound VAC (last wound culture was positive for e Coli and Klebsiella with multiple abx resistance) and multiple admissions for sepsis presents the emergency department with fever at the long-term and elevated blood glucose level. She received Tylenol at the DE and her rectal temp in the ED is 100.7F and her oxygen saturation is 92% on room air. Differential diagnosis includes but is not limited to: Sepsis, DKA, PNA, HNKC, dehydration, electrolyte abnormality, toxic/metabolic derangement. Plan: 1.Spicer culture 2. IV antibiotics 3. IVF for resuscitation 4. Anti-pyretics 5. Observe and re-evaluate 6. Inpatient admission <Candice Chowdary - Last Filed: 09/06/16 11:56> *DC/Admit/Observation/Transfer - Discharge Dispostion Admit: Yes - Attestations Physician Attestion: 09/06/16 10:25 I, Dr. Candice Chowdary, attest that the scribes documentation that appears above has been prepared under my direction and personally reviewed by me in its entirety. I confirmed that the note above accurately reflects all work, treatment, procedures, and medical decision-making performed by me. <Candice Chowdary - Last Filed: 09/06/16 11:56> - Attestations Scribe Attestion: 09/06/16 10:36 Documentation prepared by Chloe Hairston, acting as center medical specialist for Candice Chowdary MD. <Chloe Hairston - Last Filed: 09/06/16 13:08> Diagnosis at time of Disposition: Sepsis, UTI (urinary tract infection) - Discharge Dispostion Condition at time of disposition: Stable - Referrals
[2016-09-06] MEDS ORDERED: SODIUM CHLORIDE 1,000 ML IV STA (09:44)
[2016-09-06 10:16] LABS: MCH 30.7 pg (25.7-33.7); MEAN PLT VOLUME 8.4 fl (7.5-11.1); PLATELET COUNT 306 K/MM3 (134-434); RDW 18.5 % (11.6-15.6); WHITE BLOOD COUNT 10.6 K/mm3 (4.0-10.0)
[2016-09-06 10:41] LABS: VENOUS BLOOD GAS HCO3 32.2 meq/L (19-25); VENOUS PH 7.44 (7.32-7.42)
[2016-09-06 10:41] LABS: ALBUMIN 2.5 g/dl (3.4-5.0); BILIRUBIN,TOTAL 0.3 mg/dL (0.2-1.0); CALCIUM 9.8 mg/dL (8.5-10.1); COCKROFT - GAULT 26.7665; CREATININE 1.2 mg/dL (0.55-1.02); TOT PROT 8.7 g/dl (6.4-8.2)
[2016-09-06 10:43] LABS: TROPONIN I 0.02 ng/ml (0.00-0.05)
[2016-09-06 10:51] LABS: INR 0.98 (0.82-1.09); PROTHROMBIN TIME (PATIENT) 10.8 SEC (9.98-11.88)
[2016-09-06] MEDS ORDERED: INSULIN REGULAR HUMAN 100 UNITS/ML *VIAL SQ ONE (10:52)
[2016-09-06 10:54] LABS: ACTIVATED PTT 29.3 SECONDS (26.9-34.4)
[2016-09-06] MEDS ORDERED: SODIUM CHLORIDE IVPB ONE (10:54)
[2016-09-06] MEDS ORDERED: DAPTOMYCIN IVPB ONE (10:54)
[2016-09-06 10:57] LABS: URINE APPEARANCE CLOUDY; URINE BILIRUBIN NEGATIVE (NEGATIVE); URINE COLOR YELLOW; URINE GLUCOSE (UA) 3+ (NEGATIVE); URINE KETONE NEGATIVE (NEGATIVE); URINE NITRITE NEGATIVE (NEGATIVE); URINE UROBILINOGEN NEGATIVE E.U./dl (0.2-1.0)
[2016-09-06 10:59] LABS: URINE BLOOD 1+ (NEGATIVE); URINE LEUK ESTERASE 3+ (NEGATIVE); URINE PROTEIN 2+ (NEGATIVE)
[2016-09-06 11:07] LABS: URINE MUCUS RARE; URINE RBC 6 /hpf (0-3); URINE WBC 388 /hpf (3-5)
[2016-09-06 13:12] LABS: PLATELET ESTIMATE ADEQUATE (NORMAL)
--- NOTE | 2016-09-06 13:44 | PN ---
Progress Note, Physician Chief Complaint: ID Multiple admissions for fever ( blood sugar elevation) - Current Medication List Current Medications: Active Medications Doxazosin Mesylate (Cardura -) 2 mg GT HS LARRY Heparin Sodium (Porcine) (Heparin -) 5,000 unit SQ BID LARRY Sodium Chloride (Normal Saline -) 1,000 mls @ 83 mls/hr IV ASDIR LARRY Insulin Aspart (Novolog Vial Sliding Scale -) 1 vial SQ ACHS LARRY PRN Reason: Protocol Insulin Detemir (Levemir Vial) 12 units SQ HS LARRY Insulin Detemir (Levemir Vial) 8 units SQ AM LARRY Lactobacillus Acidophilus (Bacid -) 1 tab GT BID LARRY Mirtazapine (Remeron -) 30 mg PO HS LARRY Olanzapine (Zyprexa -) 5 mg GT HS LARRY Ranitidine HCl (Zantac Oral Solution -) 150 mg GT DAILY LARRY Zinc Sulfate (Orazinc -) 220 mg GT DAILY LARRY - Objective Vital Signs: Vital Signs Temperature 100.0 F H 09/06/16 11:42 Pulse Rate 94 H 09/06/16 11:41 Respiratory Rate 20 09/06/16 11:41 Blood Pressure 124/74 09/06/16 11:41 O2 Sat by Pulse Oximetry (%) 96 09/06/16 11:42 Labs: INR, PTT INR 0.98 (0.82-1.09) 09/06/16 10:00 Problem List - Problems (1) UTI (urinary tract infection) Code(s): N39.0 - URINARY TRACT INFECTION, SITE NOT SPECIFIED Qualifiers: (2) Sacral decubitus ulcer, stage III Code(s): L89.153 - PRESSURE ULCER OF SACRAL REGION, STAGE 3 (3) Fever and chills Code(s): R50.9 - FEVER, UNSPECIFIED Assessment/Plan Microbiology 08/22/16 16:30 Coccyx Gram Stain - Final 08/22/16 16:30 Coccyx Wound Culture - Final Klebsiella Pneumoniae - Esbl Escherichia Coli Esbl Steam Cleaner Vr Ec Faecium Staphylococcus Coagulase Neg Diphtheroid/Corynebacterium Laboratory Tests 09/06/16 09/06/16 09/06/16 10:00 10:00 10:18 Plt Count 306 D BUN 79 H D Creatinine 1.2 H D Creat Clearance w eGFR 43.23 Ur Leukocyte Esterase 3+ H Urine WBC 388 Assessment Fevers once again multiple possible sources Does not seem reasonable to treat multiple MDRO from decubitus ulcer culture Could be UTI source of infection poor functional status dementia Plan Culture blood and urine Dose of Vancomycin and Meropenem pending c/s Anastacia VERMA
[2016-09-06] MEDS: VANCOMYCIN 1 GRAM (PRE-DOCKED) 250 ML IVPB ONE ×2 (13:49→14:24)
[2016-09-06] MEDS ORDERED: VANCOMYCIN 1 GRAM (PRE-DOCKED) 250 ML IVPB ONE (13:50)
--- NOTE | 2016-09-06 14:01 | EKG ---
Test Reason : Blood Pressure : / mmHG Vent. Rate : 092 BPM Atrial Rate : 092 BPM P-R Int : 104 ms QRS Dur : 096 ms QT Int : 408 ms P-R-T Axes : -10 -09 104 degrees QTc Int : 504 ms SINUS RHYTHM WITH SHORT NC LEFT VENTRICULAR HYPERTROPHY WITH REPOLARIZATION ABNORMALITY PROLONGED QT ABNORMAL ECG WHEN COMPARED WITH ECG OF 02-AUG-2016 09:46, T WAVE VARIATION Confirmed by PATTI PARSONS MD ([id number]) on 09/06/2016 2:01:16 PM Referred By: Confirmed By:PATTI PARSONS MD
[2016-09-06] MEDS: SODIUM CHLORIDE 1,000 ML IV SCH (14:05)
[2016-09-06] MEDS ORDERED: INSULIN (NOVOLOG) ASPART 100 UNITS/ML 10ML VIAL ONE (17:16)
[2016-09-06] MEDS: INSULIN SLIDING SCALE (NOVOLOG) 1 VIAL SQ SCH ×2 (17:59→22:29)
--- NOTE | 2016-09-06 18:15 | CONS ---
DATE OF CONSULTATION: 09/06/2016 HISTORY: This is an 81-year-old female with a history of multiple medical problems, readmitted as one of multiple admissions, once again for evaluation of fever and a blood sugar in the 600 range from the usp. She has a history of lower extremity amputations with a stage 3 sacral decubitus ulcer for which she has been managed with a vacuum dressing. I was notified that she had low grade temperature here in the emergency room to 100.4 and based on this, was requested that I treat her with daptomycin and meropenem as well as other agents in response to a August 22, decubitus culture with multiple multidrug-resistant organisms. Her blood cultures have consistently always been no growth during these recent admissions. The patient can offer no history due to severe dementia. PAST MEDICAL HISTORY: Includes chronic kidney disease, insulin dependent diabetes, CVA, congestive heart failure, hypertension. MEDICATIONS: Insulin, dose of ceftriaxone apparently given prior to admission now, Zyprexa. ALLERGIES: None known. SOCIAL HISTORY: Never smoked. No history of alcohol use. FAMILY HISTORY: Unknown. REVIEW OF SYSTEMS: Respiratory: No cough, shortness of breath. Cardiac: No chest pain, palpitations, syncope. Gastrointestinal: PEG feeding tube. No abdominal pain. Genitourinary: Incontinent of urine. No gross hematuria. PHYSICAL EXAMINATION: Vital signs: Temperature was 100.7, pulse 98, respirations 18, blood pressure 115/70. General: Nonverbal. Neck: Full range of motion. Supple. Lungs: Limited examination. Diminished breath sounds bilaterally. Heart: S1, S2, regular rhythm. No murmurs, rubs, or gallops. Abdomen: Gastrostomy feeding tube. Soft, nontender. Normoactive. No guarding or rebound. Extremities: No peripheral edema, clubbing, or cyanosis. Skin: Stage 3 sacral decubitus with back dressing noted. Dry. LABORATORY: White count is 10.6, hemoglobin 11.8, platelets 306. BUN 79, creatinine 1.2, blood sugar 524. UA shows 3+ leukocyte esterase, 388 WBCs, chest x-ray with no acute infiltrate. ASSESSMENT: An 81-year-old female with poor functional status with dementia who presents with low grade fever and hyperglycemia, underlying diabetes by history. Cause of infection may be related to urinary tract. Sacral decubitus appears clean. She has repeatedly had negative blood cultures over multiple admissions. Multidrug-resistant organisms are noted requiring contact isolation. Does not seem reasonable to attempt to treat her for 5 different organisms cultured from her August 22, decubitus culture. We will give her 1 g of vancomycin along with meropenem to cover ESBL organisms, which she has had cultured previously. Overall functional status once again poor. ANTON ALVARADO M.D. [id number]
[2016-09-06] MEDS ORDERED: ACETAMINOPHEN 650 MG/20.3 ML ORAL SOLUTION (CUPS) GT PRN (20:40)
[2016-09-06] MEDS ORDERED: PT OWN MED DRAWER 7, Y5N ONE (21:48)
[2016-09-06] MEDS ORDERED: MEROPENEM 500 MG VIAL (RESTRICTED TO ID) IVPB SCH (22:00)
[2016-09-06] MEDS: INSULIN DETEMIR 100 UNITS/ML MDV SQ SCH (22:30)
[2016-09-06] MEDS: OLANZapine 5 MG TABLET GT SCH (22:33)
[2016-09-06] MEDS: HEPARIN NA (PORCINE) 5,000 UNITS/ML 1ML VIAL SQ SCH (22:33)
[2016-09-06] MEDS: LACTOBACILLUS ACIDOPHILUS 1 EACH TAB (FP) GT SCH (22:33)
[2016-09-06] MEDS: MIRTAZAPINE 30 MG TABLET (FP) PO SCH (22:33)
[2016-09-06] MEDS: DOXAZOSIN MESYLATE 2 MG TABLET (FP) GT SCH (22:43)
[2016-09-06] MEDS: MEROPENEM 500 MG in DEXTROSE 5%-WATER - 100 ML IVPB SCH (22:54)
[2016-09-06 23:43] VITALS: BMI 24.0
[2016-09-07] MEDS ORDERED: INSULIN (NOVOLOG) ASPART 100 UNITS/ML 10ML VIAL ONE (06:07)
[2016-09-07] MEDS: INSULIN DETEMIR 100 UNITS/ML MDV SQ SCH ×2 (06:11→21:00)
[2016-09-07] MEDS: INSULIN SLIDING SCALE (NOVOLOG) 1 VIAL SQ SCH ×4 (06:11→21:32)
[2016-09-07 06:52] LABS: BASOPHIL 0.4 % (0-2.0); EOSINOPHIL 2.2 % (0-4.5); MCH 31.1 pg (25.7-33.7); MCHC 33.4 g/dl (32.0-36.0); MEAN CELL VOLUME 93.3 fl (80-96); MEAN PLT VOLUME 8.3 fl (7.5-11.1); NEUTROPHILS 48.3 % (42.8-82.8); PLATELET COUNT 284 K/MM3 (134-434); RDW 18.5 % (11.6-15.6); WHITE BLOOD COUNT 9.1 K/mm3 (4.0-10.0)
[2016-09-07 07:15] LABS: ALBUMIN 2.1 g/dl (3.4-5.0); ANION GAP 8 (8-16); CALCIUM 9.1 mg/dL (8.5-10.1); CO2 29 mmol/L (21-32); GLUCOSE,RANDOM 283 mg/dL (74-106)
[2016-09-07 07:25] LABS: ALK PHOS 94 U/L (45-117); BILIRUBIN,TOTAL 0.5 mg/dL (0.2-1.0); CREATININE 0.8 mg/dL (0.55-1.02); SGOT/AST 16 U/L (15-37); SGPT/ALT 13 U/L (12-78); TOT PROT 7.5 g/dl (6.4-8.2)
--- NOTE | 2016-09-07 09:06 | HP ---
Admitting History and Physical - Admission History of Present Illness: 81 year old female with significant medical hx of anemia, acute kidney failure, IDDM, dementia, HTN, HLD, CHF, GERD, and CVA who has been sent to the ED for uncontrolled blood glucose and fever. Patient is confused at baseline and history was provided by detention papers. Patient had a temp of 100.4 and a blood glucose measurement of 600 in the detention. She was last given tylenol via PEG tube at 7:45 AM. Patients history is limited. - Past Medical History APPRAISER: Yes: CVA, Dementia Cardiovascular: Yes: Aortic Stenosis, CHF, HTN, Hyperlipdemia Pulmonary: Yes: COPD Gastrointestinal: Yes: GERD Renal/: Yes: Renal Inusuff Heme/Onc: Yes: Anemia Endocrine: Yes: Diabetes Mellitus Dermatology: Yes: Other (PU) - Advance Directives Advance Directives: Yes: Health Care Proxy - Smoking History Smoking history: Never smoked Have you smoked in the past 12 months: No Aproximately how many cigarettes per day: 0 - Alcohol/Substance Use Hx Alcohol Use: No - Social History History of Recent Travel: No Home Medications - Allergies Allergies/Adverse Reactions: Allergies Allergy/AdvReac Type Severity Reaction Status Date / Time No Known Drug Allergies Allergy Verified 09/06/16 09:20 - Home Medications Home Medications: Ambulatory Orders Doxazosin Mesylate [Cardura -] 2 mg GT HS tablet 08/25/16 Escitalopram Oxalate [Lexapro 5mg/5mL Oral Solution -] 10 mg GT DAILY ml Heparin - 5,000 unit SQ BID vial 08/25/16 Insulin Sliding Scale [Novolog Vial Sliding Scale -] 1 vial SQ ACHS units 08/25 Lactobacillus Acidophilus [Bacid -] 1 tab GT BID tab 08/25/16 Olanzapine [Zyprexa -] 5 mg GT HS tablet 08/25/16 Ranitidine Oral Solution [Zantac Oral Solution -] 150 mg GT DAILY ml 08/25/16 Aa/Hydrolyzed Collagen, Whey [Lps Neutral Flavor Liquid] 30 ml PO BID 09/06/16 Ascorbic Acid [Vitamin C] 500 mg GT BID 09/06/16 Ceftriaxone Na/Dextrose,Iso [Ceftriaxone 1 gm-D5w Bag] 1 gm IV DAILY 09/06/16 Fentanyl 1 each TD Q72H 09/06/16 Insulin (Levemir) [Levemir Vial] 12 units SQ HS 09/06/16 Insulin Detemir [Levemir Flextouch] 8 unit SQ AM 09/06/16 Mirtazapine [Remeron -] 30 mg GT HS 09/06/16 Nystatin Powder [Nystop Topical Powder -] 60 gm TP TID 09/06/16 Vitamin B Comp W-C [Nephro-Rafael -] 1 tablet GT DAILY 09/06/16 Vitamin B Comp W-C [Nephro-Rafael -] 1 tablet GT DAILY 09/06/16 Zinc Sulfate 220 mg GT DAILY 09/06/16 Review of Systems - Review of Systems Constitutional: reports: Fever Endocrine: reports: Other (ELEVATED BLOOD SUGARS) Physical Examination Vital Signs: Vital Signs Temperature 97.8 F 09/07/16 06:00 Pulse Rate 83 09/07/16 06:00 Respiratory Rate 18 09/07/16 06:00 Blood Pressure 108/64 09/07/16 06:00 O2 Sat by Pulse Oximetry (%) 99 09/06/16 19:10 Cardiovascular: Yes: S1, S2 Respiratory: Yes: Regular, CTA Bilaterally Gastrointestinal: Yes: Normal Bowel Sounds, Soft Extremities: Yes: Amputation Wound/Incision: Yes: Other (SACRAL PU) Neurological: Yes: Confusion Labs: CBC, BMP 09/07/16 05:35 09/07/16 05:35 Imaging - Results Chest X-ray: Report Reviewed (NAD) Problem List - Problems (1) Fever Assessment/Plan: R/O UTI UA,UC,BC IV ABX PER ID Code(s): R50.9 - FEVER, UNSPECIFIED (2) UTI (urinary tract infection) Assessment/Plan: ABOVE Code(s): N39.0 - URINARY TRACT INFECTION, SITE NOT SPECIFIED Qualifiers: (3) Anemia Assessment/Plan: MONITOR LABS Code(s): D64.9 - ANEMIA, UNSPECIFIED Qualifiers: Anemia type: iron deficiency (4) Dementia with aggressive behavior Code(s): F03.91 - UNSPECIFIED DEMENTIA WITH BEHAVIORAL DISTURBANCE (5) Diabetes Assessment/Plan: HIGH--TO 600 PROBABLY DUE TO INFECTION INSULIN--SS ENDO MONITOR BLOOD SUGARS Code(s): E11.9 - TYPE 2 DIABETES MELLITUS WITHOUT COMPLICATIONS Qualifiers: Diabetes mellitus type: type 2
[2016-09-07] MEDS: MEROPENEM 500 MG in DEXTROSE 5%-WATER - 100 ML IVPB SCH ×2 (10:05→21:58)
[2016-09-07] MEDS: RANITIDINE HCL 150 MG/10 ML UNIT-DOSE CUP GT SCH (10:06)
[2016-09-07] MEDS: ZINC SULFATE 220 MG CAPSULE (FP) GT SCH (10:06)
[2016-09-07] MEDS: LACTOBACILLUS ACIDOPHILUS 1 EACH TAB (FP) GT SCH ×2 (10:18→22:39)
[2016-09-07] MEDS: HEPARIN NA (PORCINE) 5,000 UNITS/ML 1ML VIAL SQ SCH ×2 (10:18→22:39)
--- NOTE | 2016-09-07 10:47 | EKG ---
Test Reason : Blood Pressure : / mmHG Vent. Rate : 083 BPM Atrial Rate : 083 BPM P-R Int : 102 ms QRS Dur : 090 ms QT Int : 422 ms P-R-T Axes : -14 -18 115 degrees QTc Int : 495 ms SINUS RHYTHM WITH SHORT [place] MINIMAL VOLTAGE CRITERIA FOR LVH, MAY BE NORMAL VARIANT PROLONGED QT ABNORMAL ECG WHEN COMPARED WITH ECG OF 06-SEP-2016 09:47, NO SIGNIFICANT CHANGE WAS FOUND Confirmed by JAQUELINE VERMA, PATTI ([id number]) on 09/07/2016 10:47:30 AM Referred By: EDIS FISHER Confirmed By:PATTI PARSONS MD
--- NOTE | 2016-09-07 11:01 | PN ---
Progress Note, Physician History of Present Illness: Awake, confused No acute distress Temps, WBC down Blood c/s GPCCL x1 - Current Medication List Current Medications: Active Medications Acetaminophen (Tylenol Oral Solution -) 650 mg GT Q6H PRN PRN Reason: FEVER OR PAIN Last Admin: 09/06/16 22:03 Dose: 650 mg Doxazosin Mesylate (Cardura -) 2 mg GT HS LARRY Last Admin: 09/06/16 22:43 Dose: Not Given Heparin Sodium (Porcine) (Heparin -) 5,000 unit SQ BID LARRY Last Admin: 09/07/16 10:18 Dose: 5,000 unit Sodium Chloride (Normal Saline -) 1,000 mls @ 83 mls/hr IV ASDIR LARRY Last Admin: 09/06/16 14:05 Dose: 83 mls/hr Meropenem 500 mg/ Dextrose 100 mls @ 200 mls/hr IVPB BID LARRY Last Admin: 09/07/16 10:05 Dose: 200 mls/hr Insulin Aspart (Novolog Vial Sliding Scale -) 1 vial SQ ACHS LARRY PRN Reason: Protocol Last Admin: 09/07/16 06:11 Dose: 5 units Insulin Detemir (Levemir Vial) 12 units SQ HS LARRY Last Admin: 09/06/16 22:30 Dose: Not Given Insulin Detemir (Levemir Vial) 8 units SQ AM LARRY Last Admin: 09/07/16 06:11 Dose: 8 units Lactobacillus Acidophilus (Bacid -) 1 tab GT BID LARRY Last Admin: 09/07/16 10:18 Dose: 1 tab Mirtazapine (Remeron -) 30 mg PO HS LARRY Last Admin: 09/06/16 22:33 Dose: 30 mg Olanzapine (Zyprexa -) 5 mg GT HS LARRY Last Admin: 09/06/16 22:33 Dose: 5 mg Ranitidine HCl (Zantac Oral Solution -) 150 mg GT DAILY LARRY Last Admin: 09/07/16 10:06 Dose: 150 mg Zinc Sulfate (Orazinc -) 220 mg GT DAILY LARRY Last Admin: 09/07/16 10:06 Dose: 220 mg - Objective Vital Signs: Vital Signs Temperature 98.4 F 09/07/16 10:02 Pulse Rate 84 09/07/16 10:02 Respiratory Rate 22 09/07/16 10:02 Blood Pressure 114/61 09/07/16 10:02 O2 Sat by Pulse Oximetry (%) 99 09/06/16 19:10 Constitutional: Yes: No Distress Eyes: Yes: Conjunctiva Clear Cardiovascular: Yes: Regular Rate and Rhythm, S1, S2 Respiratory: Yes: CTA Bilaterally Gastrointestinal: Yes: Normal Bowel Sounds, Soft. No: Tenderness Extremities: Yes: Other (bilateral BKA) Integumentary: Yes: Other (stage IV sacral decubitus ulcer) Labs: CBC, BMP 09/07/16 05:35 09/07/16 05:35 INR, PTT INR 0.98 (0.82-1.09) 09/06/16 10:00 Assessment/Plan Sepsis, possible urinary tract v. decubitus source + Blood c/s R/O staph bacteremia Fever/ leukocytosis- improved Hx ESBL Sacral decubitus ulcer OBS Repeat BC x 2 Redose vancomycin Continue meropenem
[2016-09-07] MEDS ORDERED: VANCOMYCIN 1 GRAM (PRE-DOCKED) 250 ML IVPB ONE (11:06)
[2016-09-07] MEDS: SODIUM CHLORIDE 1,000 ML IV SCH ×2 (17:55→23:29)
[2016-09-07] MEDS ORDERED: MIRTAZAPINE 15 MG TABLET (FP) ONE (21:49)
[2016-09-07] MEDS: OLANZapine 5 MG TABLET GT SCH (22:39)
[2016-09-07] MEDS: MIRTAZAPINE 30 MG TABLET (FP) PO SCH (22:39)
[2016-09-07] MEDS: DOXAZOSIN MESYLATE 2 MG TABLET (FP) GT SCH (22:39)
--- NOTE | 2016-09-07 23:51 | CONSULT ---
Consult Consult Specialty:: endocrine Referred by:: dr.iyad acevedo Reason for Consultation:: diabetes mellitus - History of Present Illness Chief Complaint: confused/lethargic History of Present Illness: 81 year old female with significant medical hx of anemia, acute kidney failure, IDDM, dementia, HTN, HLD, CHF, GERD, and CVA who has been sent to the ED for uncontrolled blood glucose and fever. Patient is confused at baseline and history was provided by longterm papers. 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: CVA, Dementia Cardio/Vascular: Yes: Aortic Stenosis, CHF, HTN, Hyperlipdemia Pulmonary: Yes: COPD Gastrointestinal: Yes: GERD Renal/: Yes: Renal Inusuff Endocrine: Yes: Diabetes Mellitus Dermatology: Yes: Other (PU) - Alcohol/Substance Use Hx Alcohol Use: No - Smoking History Smoking history: Never smoked Have you smoked in the past 12 months: No Aproximately how many cigarettes per day: 0 - Social History Usual Living Arrangement: [facility] History of Recent Travel: No Home Medications - Allergies Allergies/Adverse Reactions: Allergies Allergy/AdvReac Type Severity Reaction Status Date / Time No Known Drug Allergies Allergy Verified 09/06/16 09:20 - Home Medications Home Medications: Ambulatory Orders Doxazosin Mesylate [Cardura -] 2 mg GT HS tablet 08/25/16 Escitalopram Oxalate [Lexapro 5mg/5mL Oral Solution -] 10 mg GT DAILY ml Heparin - 5,000 unit SQ BID vial 08/25/16 Insulin Sliding Scale [Novolog Vial Sliding Scale -] 1 vial SQ ACHS units 08/25 Lactobacillus Acidophilus [Bacid -] 1 tab GT BID tab 08/25/16 Olanzapine [Zyprexa -] 5 mg GT HS tablet 08/25/16 Ranitidine Oral Solution [Zantac Oral Solution -] 150 mg GT DAILY ml 08/25/16 Aa/Hydrolyzed Collagen, Whey [Lps Neutral Flavor Liquid] 30 ml PO BID 09/06/16 Ascorbic Acid [Vitamin C] 500 mg GT BID 09/06/16 Ceftriaxone Na/Dextrose,Iso [Ceftriaxone 1 gm-D5w Bag] 1 gm IV DAILY 09/06/16 Fentanyl 1 each TD Q72H 09/06/16 Insulin (Levemir) [Levemir Vial] 12 units SQ HS 09/06/16 Insulin Detemir [Levemir Flextouch] 8 unit SQ AM 09/06/16 Mirtazapine [Remeron -] 30 mg GT HS 09/06/16 Nystatin Powder [Nystop Topical Powder -] 60 gm TP TID 09/06/16 Vitamin B Comp W-C [Nephro-Rafael -] 1 tablet GT DAILY 09/06/16 Vitamin B Comp W-C [Nephro-Rafael -] 1 tablet GT DAILY 09/06/16 Zinc Sulfate 220 mg GT DAILY 09/06/16 Physical Exam Vital Signs: Vital Signs Temperature 98.6 F 09/07/16 18:42 Pulse Rate 85 09/07/16 18:42 Respiratory Rate 19 09/07/16 20:44 Blood Pressure 123/59 09/07/16 18:42 O2 Sat by Pulse Oximetry (%) 95 09/07/16 20:44 Constitutional: Yes: Anxious Eyes: Yes: EOM Intact HENT: Yes: Normocephalic Neck: Yes: Trachea Midline Cardiovascular: Yes: Regular Rate and Rhythm Respiratory: Yes: CTA Bilaterally Gastrointestinal: Yes: Normal Bowel Sounds ...Rectal Exam: Yes: Deferred Renal/: Yes: WNL Breast(s): Yes: WNL Musculoskeletal: Yes: WNL Extremities: Yes: WNL Edema: No Wound/Incision: Yes: Dressing Dry and Intact Neurological: Yes: Confusion, Weakness Labs: CBC, BMP 09/07/16 05:35 09/07/16 05:35 Problem List - Problems (1) Fever and chills Code(s): R50.9 - FEVER, UNSPECIFIED (2) Sacral decubitus ulcer, stage III Code(s): L89.153 - PRESSURE ULCER OF SACRAL REGION, STAGE 3 (3) Sepsis Code(s): A41.9 - SEPSIS, UNSPECIFIED ORGANISM Qualifiers: (4) (HFpEF) heart failure with preserved ejection fraction Code(s): I50.9 - HEART FAILURE, UNSPECIFIED Assessment/Plan Current Active Problems Fever and chills (Acute) Sacral decubitus ulcer, stage III (Acute) Sepsis (Acute) UTI (urinary tract infection) (Acute) diabetes mellitus unconcontrolled Abnormal Lab Results 09/07/16 09/07/16 05:35 05:35 RBC 3.59 L RDW 18.5 H Lymphocytes % 43.7 H D Chloride 108 H D BUN 58 H D Random Glucose 283 H D Albumin 2.1 L Laboratory Results - last 24 hr 09/07/16 09/07/16 09/07/16 05:02 05:35 05:35 WBC 9.1 RBC 3.59 L Hgb 11.2 Hct 33.5 MCV 93.3 MCHC 33.4 RDW 18.5 H Plt Count 284 MPV 8.3 Neutrophils % 48.3 Lymphocytes % 43.7 H D Monocytes % 5.4 Eosinophils % 2.2 D Basophils % 0.4 D Sodium 145 Potassium 4.9 Chloride 108 H D Carbon Dioxide 29 Anion Gap 8 BUN 58 H D Creatinine 0.8 D Creat Clearance w eGFR > 60 POC Glucometer 260 Random Glucose 283 H D Calcium 9.1 Total Bilirubin 0.5 D AST 16 D ALT 13 Alkaline Phosphatase 94 D Total Protein 7.5 Albumin 2.1 L 09/07/16 09/07/16 09/07/16 12:44 16:46 21:06 WBC RBC Hgb Hct MCV MCHC RDW Plt Count MPV Neutrophils % Lymphocytes % Monocytes % Eosinophils % Basophils % Sodium Potassium Chloride Carbon Dioxide Anion Gap BUN Creatinine Creat Clearance w eGFR POC Glucometer [phone] Random Glucose Calcium Total Bilirubin AST ALT Alkaline Phosphatase Total Protein Albumin plan bgm qid novolog scale levemir 8 units am levemir 12 @hs iv fluid Current Medications Generic Name Dose Route Start Last Admin Trade Name Freq PRN Reason Stop Dose Admin Acetaminophen 650 mg 09/06/16 20:40 09/06/16 22:03 Tylenol Oral Solution - GT 650 mg Q6H PRN Administration FEVER OR PAIN Doxazosin Mesylate 2 mg 09/06/16 22:00 09/07/16 22:39 Cardura - GT 2 mg HS ALRRY Administration Heparin Sodium (Porcine) 5,000 unit 09/06/16 22:00 09/07/16 22:39 Heparin - SQ 5,000 unit BID LARRY Administration Sodium Chloride 1,000 mls @ 83 mls/hr 09/06/16 13:15 09/07/16 23:29 Normal Saline - IV 83 mls/hr ASDIR LARRY Administration Meropenem 500 mg/ Dextrose 100 mls @ 200 mls/hr 09/06/16 22:00 09/07/16 21:58 IVPB 200 mls/hr BID LARRY Administration Insulin Aspart 1 vial 09/06/16 16:30 09/07/16 21:32 Novolog Vial Sliding Scale - SQ Not Given ACHS LARRY Protocol Insulin Detemir 12 units 09/06/16 22:00 09/07/16 21:00 Levemir Vial SQ Not Given HS LARRY Insulin Detemir 8 units 09/07/16 07:00 09/07/16 06:11 Levemir Vial SQ 8 units AM LARRY Administration Lactobacillus Acidophilus 1 tab 09/06/16 22:00 09/07/16 22:39 Bacid - GT 1 tab BID LARRY Administration Mirtazapine 30 mg 09/06/16 22:00 09/07/16 22:39 Remeron - PO 30 mg HS LARRY Administration Olanzapine 5 mg 09/06/16 22:00 09/07/16 22:39 Zyprexa - GT 5 mg HS LARRY Administration Ranitidine HCl 150 mg 09/07/16 10:00 09/07/16 10:06 Zantac Oral Solution - GT 150 mg DAILY LARRY Administration Zinc Sulfate 220 mg 09/07/16 10:00 09/07/16 10:06 Orazinc - GT 220 mg DAILY LARRY Administration
[2016-09-08] MEDS ORDERED: INSULIN (NOVOLOG) ASPART 100 UNITS/ML 10ML VIAL ONE (05:49)
[2016-09-08] MEDS: INSULIN DETEMIR 100 UNITS/ML MDV SQ SCH ×2 (06:00→22:26)
[2016-09-08] MEDS: INSULIN SLIDING SCALE (NOVOLOG) 1 VIAL SQ SCH ×4 (06:00→22:24)
[2016-09-08] MEDS ORDERED: INSULIN DETEMIR 100 UNITS/ML MDV SQ ONE (06:07)
--- NOTE | 2016-09-08 07:55 | PN ---
Progress Note, Physician History of Present Illness: MORE AWAKE - Current Medication List Current Medications: Active Medications Acetaminophen (Tylenol Oral Solution -) 650 mg GT Q6H PRN PRN Reason: FEVER OR PAIN Last Admin: 09/06/16 22:03 Dose: 650 mg Doxazosin Mesylate (Cardura -) 2 mg GT HS LARRY Last Admin: 09/07/16 22:39 Dose: 2 mg Heparin Sodium (Porcine) (Heparin -) 5,000 unit SQ BID LARRY Last Admin: 09/07/16 22:39 Dose: 5,000 unit Sodium Chloride (Normal Saline -) 1,000 mls @ 83 mls/hr IV ASDIR LARRY Last Admin: 09/07/16 23:29 Dose: 83 mls/hr Meropenem 500 mg/ Dextrose 100 mls @ 200 mls/hr IVPB BID LARRY Last Admin: 09/07/16 21:58 Dose: 200 mls/hr Insulin Aspart (Novolog Vial Sliding Scale -) 1 vial SQ ACHS LARRY PRN Reason: Protocol Last Admin: 09/08/16 06:00 Dose: 5 units Insulin Detemir (Levemir Vial) 12 units SQ HS LARRY Last Admin: 09/07/16 21:00 Dose: Not Given Insulin Detemir (Levemir Vial) 8 units SQ AM LARRY Last Admin: 09/08/16 06:00 Dose: 8 units Lactobacillus Acidophilus (Bacid -) 1 tab GT BID LARRY Last Admin: 09/07/16 22:39 Dose: 1 tab Mirtazapine (Remeron -) 30 mg PO HS LARRY Last Admin: 09/07/16 22:39 Dose: 30 mg Olanzapine (Zyprexa -) 5 mg GT HS LARRY Last Admin: 09/07/16 22:39 Dose: 5 mg Ranitidine HCl (Zantac Oral Solution -) 150 mg GT DAILY [facility] Last Admin: 09/07/16 10:06 Dose: 150 mg Zinc Sulfate (Orazinc -) 220 mg GT DAILY [facility] Last Admin: 09/07/16 10:06 Dose: 220 mg - Objective Vital Signs: Vital Signs Temperature 99.6 F 09/08/16 05:38 Pulse Rate 88 09/08/16 05:38 Respiratory Rate 20 09/08/16 05:38 Blood Pressure 115/54 09/08/16 05:38 O2 Sat by Pulse Oximetry (%) 95 09/07/16 20:44 Cardiovascular: Yes: S1, S2 Respiratory: Yes: Regular, CTA Bilaterally Gastrointestinal: Yes: Normal Bowel Sounds, Soft Labs: CBC, BMP 09/07/16 05:35 09/07/16 05:35 INR, PTT INR 0.98 (0.82-1.09) 09/06/16 10:00 Problem List - Problems (1) Fever Assessment/Plan: RESOLVED UTI Microbiology 09/06/16 10:00 Blood Culture - Preliminary Blood - Peripheral Venous NO GROWTH OBTAINED AFTER 48 HOURS, INCUBATION TO CONTINUE FOR 3 DAYS. 09/06/16 10:18 Urine Culture - Preliminary Urine - Urine - Catheterized Gram Negative Alexis 09/06/16 10:00 Blood Culture - Preliminary Blood - Peripheral Venous Pending Organism UA,UC,BC IV ABX PER ID Code(s): R50.9 - FEVER, UNSPECIFIED (2) UTI (urinary tract infection) Assessment/Plan: ABOVE Code(s): N39.0 - URINARY TRACT INFECTION, SITE NOT SPECIFIED Qualifiers: (3) Anemia Assessment/Plan: MONITOR LABS Code(s): D64.9 - ANEMIA, UNSPECIFIED Qualifiers: Anemia type: iron deficiency (4) Dementia with aggressive behavior Assessment/Plan: SAME MEDS Code(s): F03.91 - UNSPECIFIED DEMENTIA WITH BEHAVIORAL DISTURBANCE (5) Diabetes Assessment/Plan: HIGH--TO 600 PROBABLY DUE TO INFECTION INSULIN--SS ENDO MONITOR BLOOD SUGARS Code(s): E11.9 - TYPE 2 DIABETES MELLITUS WITHOUT COMPLICATIONS Qualifiers: Diabetes mellitus type: type 2
[2016-09-08] MEDS ORDERED: PT OWN MED DRAWER 7, Y5N ONE ×4 (08:31→23:48)
[2016-09-08] MEDS: LACTOBACILLUS ACIDOPHILUS 1 EACH TAB (FP) GT SCH ×2 (09:00→22:24)
[2016-09-08] MEDS: MEROPENEM 500 MG in DEXTROSE 5%-WATER - 100 ML IVPB SCH ×2 (09:00→22:44)
[2016-09-08] MEDS: RANITIDINE HCL 150 MG/10 ML UNIT-DOSE CUP GT SCH (09:00)
[2016-09-08] MEDS: ZINC SULFATE 220 MG CAPSULE (FP) GT SCH (09:00)
[2016-09-08] MEDS: HEPARIN NA (PORCINE) 5,000 UNITS/ML 1ML VIAL SQ SCH ×2 (09:01→22:25)
--- NOTE | 2016-09-08 11:22 | PN ---
Progress Note, Physician History of Present Illness: Awake, confused No acute distress Temps down- afebrile WBC improved Blooc c/s GPCCL x 1 bottle - Current Medication List Current Medications: Active Medications Acetaminophen (Tylenol Oral Solution -) 650 mg GT Q6H PRN PRN Reason: FEVER OR PAIN Last Admin: 09/06/16 22:03 Dose: 650 mg Doxazosin Mesylate (Cardura -) 2 mg GT HS LARRY Last Admin: 09/07/16 22:39 Dose: 2 mg Heparin Sodium (Porcine) (Heparin -) 5,000 unit SQ BID LARRY Last Admin: 09/08/16 09:01 Dose: 5,000 unit Sodium Chloride (Normal Saline -) 1,000 mls @ 83 mls/hr IV ASDIR LARRY Last Admin: 09/07/16 23:29 Dose: 83 mls/hr Meropenem 500 mg/ Dextrose 100 mls @ 200 mls/hr IVPB BID LARRY Last Admin: 09/08/16 09:00 Dose: 200 mls/hr Insulin Aspart (Novolog Vial Sliding Scale -) 1 vial SQ ACHS LARRY PRN Reason: Protocol Last Admin: 09/08/16 06:00 Dose: 5 units Insulin Detemir (Levemir Vial) 12 units SQ HS LARRY Last Admin: 09/07/16 21:00 Dose: Not Given Insulin Detemir (Levemir Vial) 8 units SQ AM LARRY Last Admin: 09/08/16 06:00 Dose: 8 units Lactobacillus Acidophilus (Bacid -) 1 tab GT BID LARRY Last Admin: 09/08/16 09:00 Dose: 1 tab Mirtazapine (Remeron -) 30 mg PO HS LARRY Last Admin: 09/07/16 22:39 Dose: 30 mg Olanzapine (Zyprexa -) 5 mg GT HS [facility] Last Admin: 09/07/16 22:39 Dose: 5 mg Ranitidine HCl (Zantac Oral Solution -) 150 mg GT DAILY [facility] Last Admin: 09/08/16 09:00 Dose: 150 mg Zinc Sulfate (Orazinc -) 220 mg GT DAILY [facility] Last Admin: 09/08/16 09:00 Dose: 220 mg - Objective Vital Signs: Vital Signs Temperature 99.6 F 09/08/16 05:38 Pulse Rate 86 09/08/16 08:00 Respiratory Rate 20 09/08/16 08:00 Blood Pressure 108/65 09/08/16 08:00 O2 Sat by Pulse Oximetry (%) 95 09/07/16 20:44 Constitutional: Yes: No Distress Eyes: Yes: Conjunctiva Clear Cardiovascular: Yes: Regular Rate and Rhythm, Murmur, S1, S2 Respiratory: Yes: Diminished Gastrointestinal: Yes: Normal Bowel Sounds, Soft. No: Tenderness Extremities: Yes: Other (S/P B/L BKA) Integumentary: Yes: Other (+ sacral decubitus) Labs: CBC, BMP 09/07/16 05:35 09/07/16 05:35 INR, PTT INR 0.98 (0.82-1.09) 09/06/16 10:00 Assessment/Plan Sepsis, possible urinary tract v. decubitus source + Blood c/s Staph coagulase negativ- probable contaminant Fever/ leukocytosis- improved Hx ESBL Sacral decubitus ulcer OBS Repeat BC x 2 pending Redosed vancomycin Continue meropenem
[2016-09-08] MEDS ORDERED: MIRTAZAPINE 15 MG TABLET (FP) ONE (20:58)
[2016-09-08] MEDS: DOXAZOSIN MESYLATE 2 MG TABLET (FP) GT SCH (22:23)
[2016-09-08] MEDS: OLANZapine 5 MG TABLET GT SCH (22:24)
[2016-09-08] MEDS: MIRTAZAPINE 30 MG TABLET (FP) PO SCH (22:24)
[2016-09-08] MEDS: SODIUM CHLORIDE 1,000 ML IV SCH (22:25)
[2016-09-09] MEDS: INSULIN SLIDING SCALE (NOVOLOG) 1 VIAL SQ SCH ×4 (06:49→21:57)
[2016-09-09] MEDS: INSULIN DETEMIR 100 UNITS/ML MDV SQ SCH ×2 (06:54→21:57)
--- NOTE | 2016-09-09 07:53 | DS ---
Physical Examination Vital Signs: Vital Signs Temperature 98.8 F 09/09/16 06:21 Pulse Rate 99 H 09/09/16 06:21 Respiratory Rate 22 09/09/16 06:21 Blood Pressure 131/75 09/09/16 06:21 O2 Sat by Pulse Oximetry (%) 97 09/08/16 21:00 Labs: CBC, BMP 09/07/16 05:35 09/07/16 05:35 Discharge Summary Reason For Visit: INFECTED DECUBITUS ULCER,UTI,SEPSIS Current Active Problems Fever and chills (Acute) Sacral decubitus ulcer, stage III (Acute) Sepsis (Acute) UTI (urinary tract infection) (Acute) Hospital Course: History of Present Illness: 81 year old female with significant medical hx of anemia, acute kidney failure, IDDM, dementia, HTN, HLD, CHF, GERD, and CVA who has been sent to the ED for uncontrolled blood glucose and fever. Patient is confused at baseline and history was provided by long term papers. Patient had a temp of 100.4 and a blood glucose measurement of 600 in the long term. She was last given tylenol via PEG tube at 7:45 AM. Patients history is limited. 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: CVA, Dementia Cardiovascular: Yes: Aortic Stenosis, CHF, HTN, Hyperlipdemia Pulmonary: Yes: COPD Gastrointestinal: Yes: GERD Renal/: Yes: Renal Inusuff Heme/Onc: Yes: Anemia Endocrine: Yes: Diabetes Mellitus Dermatology: Yes: Other (PU) - Advance Directives Advance Directives: Yes: Health Care Proxy Condition: Stable - Instructions Referrals: Rashawn Garcia MD [Primary Care Provider] - Disposition: [facility] FACILITY - Home Medications Comprehensive Discharge Medication List: Ambulatory Orders Doxazosin Mesylate [Cardura -] 2 mg GT HS tablet 08/25/16 Escitalopram Oxalate [Lexapro 5mg/5mL Oral Solution -] 10 mg GT DAILY ml Heparin - 5,000 unit SQ BID vial 08/25/16 Insulin Sliding Scale [Novolog Vial Sliding Scale -] 1 vial SQ ACHS units 08/25 Lactobacillus Acidophilus [Bacid -] 1 tab GT BID tab 08/25/16 Olanzapine [Zyprexa -] 5 mg GT HS tablet 08/25/16 Ranitidine Oral Solution [Zantac Oral Solution -] 150 mg GT DAILY ml 08/25/16 Aa/Hydrolyzed Collagen, Whey [Lps Neutral Flavor Liquid] 30 ml PO BID 09/06/16 Ascorbic Acid [Vitamin C] 500 mg GT BID 09/06/16 Insulin (Levemir) [Levemir Vial] 12 units SQ HS 09/06/16 Insulin Detemir [Levemir Flextouch] 8 unit SQ AM 09/06/16 Mirtazapine [Remeron -] 30 mg GT HS 09/06/16 Nystatin Powder [Nystop Powder -] 60 gm TP TID 09/06/16 Vitamin B Comp W-C [Nephro-Rafael -] 1 tablet GT DAILY 09/06/16 Vitamin B Comp W-C [Nephro-Rafael -] 1 tablet GT DAILY 09/06/16 Zinc Sulfate 220 mg GT DAILY 09/06/16 Nitrofurantoin Macrocrystal [Macrodantin -] 50 mg PO Q6HPO #28 tab 09/09/16
[2016-09-09] MEDS: ZINC SULFATE 220 MG CAPSULE (FP) GT SCH (10:26)
[2016-09-09] MEDS: RANITIDINE HCL 150 MG/10 ML UNIT-DOSE CUP GT SCH (10:26)
[2016-09-09] MEDS: HEPARIN NA (PORCINE) 5,000 UNITS/ML 1ML VIAL SQ SCH ×2 (10:26→21:56)
[2016-09-09] MEDS: LACTOBACILLUS ACIDOPHILUS 1 EACH TAB (FP) GT SCH ×2 (10:26→21:56)
[2016-09-09] MEDS: AMINO ACIDS/PROTEIN HYDROLYS 30 ML LIQUID.PKT GT SCH (10:27)
[2016-09-09 11:15] LABS: MCH 30.6 pg (25.7-33.7); MEAN CELL VOLUME 92.5 fl (80-96); MEAN PLT VOLUME 8.2 fl (7.5-11.1); PLATELET COUNT 268 K/MM3 (134-434); RDW 18.2 % (11.6-15.6); WHITE BLOOD COUNT 7.7 K/mm3 (4.0-10.0)
[2016-09-09 11:57] LABS: GLUCOSE,RANDOM 217 mg/dL (74-106)
[2016-09-09 11:58] LABS: ANION GAP 8 (8-16); CALCIUM 8.6 mg/dL (8.5-10.1); CO2 28 mmol/L (21-32); COCKROFT - GAULT 63.9965; CREATININE 0.5 mg/dL (0.55-1.02); TOT PROT 6.9 g/dl (6.4-8.2)
[2016-09-09 11:59] LABS: ALBUMIN 1.8 g/dl (3.4-5.0); ALK PHOS 114 U/L (45-117); BILIRUBIN,TOTAL 0.2 mg/dL (0.2-1.0); SGOT/AST 13 U/L (15-37); SGPT/ALT 12 U/L (12-78)
[2016-09-09 12:05] LABS: ANISOCYTOSIS 1+; METAMYELOCYTE 1 % (0-2); PLATELET ESTIMATE ADEQUATE (NORMAL)
[2016-09-09] MEDS: SODIUM CHLORIDE 1,000 ML IV SCH (14:29)
[2016-09-09] MEDS: NITROFURANTOIN MACROCRYSTAL 50 MG CAPSULE (FP) PO SCH ×2 (14:30→17:08)
[2016-09-09 16:00] LABS: MCH 30.6 pg (25.7-33.7); MCHC 33.1 g/dl (32.0-36.0); MEAN CELL VOLUME 92.5 fl (80-96); MEAN PLT VOLUME 8.4 fl (7.5-11.1); PLATELET COUNT 274 K/MM3 (134-434); RDW 18.1 % (11.6-15.6); WHITE BLOOD COUNT 7.7 K/mm3 (4.0-10.0)
--- NOTE | 2016-09-09 16:58 | PN ---
Progress Note, Physician History of Present Illness: Awake, confused Afebrile WBC WNL BC SCN ( contaminant ) Urine c/s CRE - Current Medication List Current Medications: Active Medications Acetaminophen (Tylenol Oral Solution -) 650 mg GT Q6H PRN PRN Reason: FEVER OR PAIN Last Admin: 09/06/16 22:03 Dose: 650 mg Amino Acids (Prosource No Carb Liquid Pkt) 30 ml GT DAILY [facility] Last Admin: 09/09/16 10:27 Dose: 30 ml Doxazosin Mesylate (Cardura -) 2 mg GT HS LARRY Last Admin: 09/08/16 22:23 Dose: 2 mg Heparin Sodium (Porcine) (Heparin -) 5,000 unit SQ BID LARRY Last Admin: 09/09/16 10:26 Dose: 5,000 unit Sodium Chloride (Normal Saline -) 1,000 mls @ 83 mls/hr IV ASDIR [facility] Last Admin: 09/09/16 14:29 Dose: 83 mls/hr Insulin Aspart (Novolog Vial Sliding Scale -) 1 vial SQ ACHS LARRY PRN Reason: Protocol Last Admin: 09/09/16 12:23 Dose: 5 units Insulin Detemir (Levemir Vial) 12 units SQ HS LARRY Last Admin: 09/08/16 22:26 Dose: 12 units Insulin Detemir (Levemir Vial) 8 units SQ AM LARRY Last Admin: 09/09/16 06:54 Dose: 8 units Lactobacillus Acidophilus (Bacid -) 1 tab GT BID LARRY Last Admin: 09/09/16 10:26 Dose: 1 tab Mirtazapine (Remeron -) 30 mg PO HS [facility] Last Admin: 09/08/16 22:24 Dose: 30 mg Nitrofurantoin Macrocrystals (Macrodantin -) 50 mg PO Q6HPO LARRY Last Admin: 09/09/16 14:30 Dose: 50 mg Olanzapine (Zyprexa -) 5 mg GT HS [facility] Last Admin: 09/08/16 22:24 Dose: 5 mg Ranitidine HCl (Zantac Oral Solution -) 150 mg GT DAILY [facility] Last Admin: 09/09/16 10:26 Dose: 150 mg Zinc Sulfate (Orazinc -) 220 mg GT DAILY [facility] Last Admin: 09/09/16 10:26 Dose: 220 mg - Objective Vital Signs: Vital Signs Temperature 98.6 F 09/09/16 13:05 Pulse Rate 86 09/09/16 13:05 Respiratory Rate 22 09/09/16 13:05 Blood Pressure 164/76 09/09/16 13:05 O2 Sat by Pulse Oximetry (%) 97 09/09/16 10:00 Constitutional: Yes: No Distress Eyes: Yes: Conjunctiva Clear Cardiovascular: Yes: Regular Rate and Rhythm, S1, S2 Respiratory: Yes: CTA Bilaterally Gastrointestinal: Yes: Normal Bowel Sounds, Soft. No: Tenderness Extremities: Yes: Other (s/p bilateral BKA) Labs: CBC, BMP 09/09/16 14:50 09/09/16 10:30 INR, PTT INR 0.98 (0.82-1.09) 09/06/16 10:00 Assessment/Plan Sepsis, possible urinary tract v. decubitus source CRE + Blood c/s Staph coagulase negative -contaminant Fever/ leukocytosis- resolved Hx ESBL Sacral decubitus ulcer OBS Discontinue meropenem Gentamicin 90mg IVPB daily 3d - ? SNF Contact precautions
[2016-09-09] MEDS ORDERED: PT OWN MED DRAWER 7, Y5N ONE ×2 (17:29→21:17)
[2016-09-09] MEDS ORDERED: MIRTAZAPINE 15 MG TABLET (FP) ONE (21:16)
[2016-09-09] MEDS: MIRTAZAPINE 30 MG TABLET (FP) PO SCH (21:56)
[2016-09-09] MEDS: OLANZapine 5 MG TABLET GT SCH (21:56)
[2016-09-09] MEDS: DOXAZOSIN MESYLATE 2 MG TABLET (FP) GT SCH (21:56)
[2016-09-10] MEDS: NITROFURANTOIN MACROCRYSTAL 50 MG CAPSULE (FP) PO SCH ×2 (00:17→06:34)
[2016-09-10] MEDS: SODIUM CHLORIDE 1,000 ML IV SCH (01:33)
[2016-09-10 05:13] VITALS: TEMP 98.1
[2016-09-10] MEDS: INSULIN DETEMIR 100 UNITS/ML MDV SQ SCH (06:34)
[2016-09-10] MEDS: INSULIN SLIDING SCALE (NOVOLOG) 1 VIAL SQ SCH (06:34)
[2016-09-10] MEDS ORDERED: PT OWN MED DRAWER 7, Y5N ONE (06:46)
--- NOTE | 2016-09-10 08:42 | DS ---
Physical Examination Vital Signs: Vital Signs Temperature 98.1 F 09/10/16 05:12 Pulse Rate 86 09/10/16 05:12 Respiratory Rate 18 09/10/16 05:12 Blood Pressure 115/63 09/10/16 05:12 O2 Sat by Pulse Oximetry (%) 97 09/09/16 21:00 Cardiovascular: Yes: Murmur, S1, S2 Respiratory: Yes: Regular, CTA Bilaterally Gastrointestinal: Yes: Normal Bowel Sounds, Soft Labs: CBC, BMP 09/09/16 14:50 09/09/16 10:30 Discharge Summary Reason For Visit: INFECTED DECUBITUS ULCER,UTI,SEPSIS Current Active Problems Fever and chills (Acute) Sacral decubitus ulcer, stage III (Acute) Sepsis (Acute) UTI (urinary tract infection) (Acute) Hospital Course: History of Present Illness: 81 year old female with significant medical hx of anemia, acute kidney failure, IDDM, dementia, HTN, HLD, CHF, GERD, and CVA who has been sent to the ED for uncontrolled blood glucose and fever. Patient is confused at baseline and history was provided by [facility] papers. Patient had a temp of 100.4 and a blood glucose measurement of 600 in the [facility]. She was last given tylenol via PEG tube at 7:45 AM. Patients history is limited. 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 09/07/16 11:59 Blood - Peripheral Venous Blood Culture - Preliminary NO GROWTH OBTAINED AFTER 48 HOURS, INCUBATION TO CONTINUE FOR 3 DAYS. 09/06/16 10:18 Urine - Urine - Catheterized Urine Culture - Final Escherichia Coli Esbl Pantograph Watcher 09/06/16 10:00 Blood - Peripheral Venous Blood Culture - Preliminary NO GROWTH OBTAINED AFTER 72 HOURS, INCUBATION TO CONTINUE FOR 2 DAYS. UA,UC,BC ABX PER ID--ON MACROBID Code(s): R50.9 - FEVER, UNSPECIFIED (2) UTI (urinary tract infection) Assessment/Plan: ABOVE Code(s): N39.0 - URINARY TRACT INFECTION, SITE NOT SPECIFIED Qualifiers: (3) Anemia-- Assessment/Plan: MONITOR LABS Code(s): D64.9 - ANEMIA, UNSPECIFIED Qualifiers: Anemia type: iron deficiency (4) Dementia with aggressive behavior Assessment/Plan: SAME MEDS Code(s): F03.91 - UNSPECIFIED DEMENTIA WITH BEHAVIORAL DISTURBANCE (5) Diabetes Assessment/Plan: HIGH--TO 600 PROBABLY DUE TO INFECTION INSULIN--SS ENDO MONITOR BLOOD SUGARS--BETTER CONTROL NOW Code(s): E11.9 - TYPE 2 DIABETES MELLITUS WITHOUT COMPLICATIONS Qualifiers: Diabetes mellitus type: type 2 (6) Presure ulcer --stage 4 Assessment/Plan: wound care Condition: Stable - Instructions Referrals: Rashawn Garcia MD [Primary Care Provider] - Disposition: [facility] FACILITY - Home Medications Comprehensive Discharge Medication List: Ambulatory Orders Doxazosin Mesylate [Cardura -] 2 mg GT HS tablet 08/25/16 Escitalopram Oxalate [Lexapro 5mg/5mL Oral Solution -] 10 mg GT DAILY ml Heparin - 5,000 unit SQ BID vial 08/25/16 Insulin Sliding Scale [Novolog Vial Sliding Scale -] 1 vial SQ ACHS units 08/25 Lactobacillus Acidophilus [Bacid -] 1 tab GT BID tab 08/25/16 Olanzapine [Zyprexa -] 5 mg GT HS tablet 08/25/16 Ranitidine Oral Solution [Zantac Oral Solution -] 150 mg GT DAILY ml 08/25/16 Aa/Hydrolyzed Collagen, Whey [Lps Neutral Flavor Liquid] 30 ml PO BID 09/06/16 Ascorbic Acid [Vitamin C] 500 mg GT BID 09/06/16 Insulin (Levemir) [Levemir Vial] 12 units SQ HS 09/06/16 Insulin Detemir [Levemir Flextouch] 8 unit SQ AM 09/06/16 Mirtazapine [Remeron -] 30 mg GT HS 09/06/16 Nystatin Powder [Nystop Powder -] 60 gm TP TID 09/06/16 Vitamin B Comp W-C [Nephro-Rafael -] 1 tablet GT DAILY 09/06/16 Vitamin B Comp W-C [Nephro-Rafael -] 1 tablet GT DAILY 09/06/16 Zinc Sulfate 220 mg GT DAILY 09/06/16 Nitrofurantoin Macrocrystal [Macrodantin -] 50 mg PO Q6HPO #28 tab 09/09/16
[2016-09-10] MEDS: RANITIDINE HCL 150 MG/10 ML UNIT-DOSE CUP GT SCH (09:06)
[2016-09-10] MEDS: LACTOBACILLUS ACIDOPHILUS 1 EACH TAB (FP) GT SCH (09:06)
[2016-09-10] MEDS: AMINO ACIDS/PROTEIN HYDROLYS 30 ML LIQUID.PKT GT SCH (09:06)
[2016-09-10] MEDS: HEPARIN NA (PORCINE) 5,000 UNITS/ML 1ML VIAL SQ SCH (09:07)
[2016-09-10] MEDS: ZINC SULFATE 220 MG CAPSULE (FP) GT SCH (09:07)
[2016-09-10 10:40] VITALS: BP 110/66; PULSE 94
== END 2016-09-10 10:46 | DRG 871 ==
LOC: JER 08:53 → JERBED 12:24 → J4S 18:00 → J2W 09-07 08:39
PROVIDERS: ADMIT Family Medicine; ATTEND Family Medicine
DX: A41.9 Sepsis, unspecified organism (principal); L89.153 Pressure ulcer of sacral region, stage 3; N17.9 Acute kidney failure, unspecified; F03.91 Unspecified dementia, unspecified severity, with behavioral disturbance; D64.9 Anemia, unspecified; E78.5 Hyperlipidemia, unspecified; K21.9 Gastro-esophageal reflux disease without esophagitis; E11.65 Type 2 diabetes mellitus with hyperglycemia; F41.8 Other specified anxiety disorders; F03.90 Unspecified dementia, unspecified severity, without behavioral disturbance, psychotic disturbance, mood disturbance, and anxiety; I35.0 Nonrheumatic aortic (valve) stenosis; J44.9 Chronic obstructive pulmonary disease, unspecified; I50.9 Heart failure, unspecified; I12.9 Hypertensive chronic kidney disease with stage 1 through stage 4 chronic kidney disease, or unspecified chronic kidney disease; E11.22 Type 2 diabetes mellitus with diabetic chronic kidney disease; N18.9 Chronic kidney disease, unspecified; I48.91 Unspecified atrial fibrillation; Z93.1 Gastrostomy status; Z79.4 Long term (current) use of insulin; Z86.73 Personal history of transient ischemic attack (TIA), and cerebral infarction without residual deficits; Z89.511 Acquired absence of right leg below knee; Z89.512 Acquired absence of left leg below knee
CPT/HCPCS: 36415; 71010-TC; 80053; 81003; 81015; 82009; 82550; 82803; 83605; 84484; 85025; 85027; 85610; 85730; 86850; 86870; 86900; 86901; 86902; 87040; 87086; 87186; 93005; 93010; 99285-25; J1644

== ENCOUNTER 2016-09-28 09:02 | Inpatient (IN) | payer OTHER ==
[2016-09-28] MEDS ORDERED: MEROPENEM 1 GM in DEXTROSE 5%-WATER - 100 ML IVPB ONE (09:30)
[2016-09-28] MEDS ORDERED: SODIUM CHLORIDE 500 ML IV STA ×2 (09:31→09:51)
[2016-09-28] MEDS ORDERED: VANCOMYCIN 1 GRAM (PRE-DOCKED) 250 ML IVPB ONE (09:38)
--- NOTE | 2016-09-28 09:39 | PDOC ---
History of Present Illness - General Chief Complaint: SIRS, Suspected/Possible Stated Complaint: FEVER Time Seen by Provider: 09/28/16 09:35 History Source: Care Provider, Alf Records, Old Records Exam Limitations: Dementia - History of Present Illness Initial Comments: Patient is a 81 year old female with a recent history of antibiotic resistance UTI and an active stage 4 decubitus ulcer presenting from the [facility] with multiple criteria positive for SIRS (T 100.8, HR 100, RR 21, and WBC per long term of 15.82). Patient is currently receiving antibiotics (nitrofurantoin) for a MDR UTI and was reported by the long term to have had intermittent fever for several days. Past History - Past Medical History Allergies/Adverse Reactions: Allergies Allergy/AdvReac Type Severity Reaction Status Date / Time No Known Drug Allergies Allergy Verified 09/28/16 09:35 Home Medications: Ambulatory Orders Aa/[place] Ivone,Whey/Arg/C/Zn/Cu [Lps Critical Care Liquid] 960 ml GT BID Acetaminophen Oral Solution [Tylenol Oral Solution -] 640 mg PO Q6H PRN Ascorbate Calcium [Vitamin C] 500 mg GT BID 09/28/16 Ascorbic Acid [Vitamin C] 500 mg GT DAILY 09/28/16 Cefepime HCl/Dextrose, Iso-Osm [Cefepime 1 gm Injection] 1 gm IV DAILY 09/28/16 Doxazosin Mesylate 2 mg GT HS 09/28/16 Escitalopram Oxalate [Lexapro Oral Solution -] 10 mg GT DAILY 09/28/16 Famotidine 20 mg GT DAILY 09/28/16 Fentanyl 1 each TD Q72H 09/28/16 Ferrous Sulfate *Liquid* [Feosol [ALCOHOL FREE]] 330 mg GT DAILY 09/28/16 Heparin - 5,000 unit SQ BID 09/28/16 Insulin Detemir [Levemir Flextouch] 10 unit SQ DAILY 09/28/16 Insulin Detemir [Levemir Flextouch] 12 unit SQ HS 09/28/16 Insulin Lispro [Humalog] 100 unit SQ TID 09/28/16 Lactobacillus Acidophilus [Acidophilus] 1 each GT BID 09/28/16 Mirtazapine [Remeron -] 30 mg GT HS 09/28/16 Olanzapine [Zyprexa] 5 mg GT HS 09/28/16 Silver Sulfadiaz/Foam Bandage [Allevyn Ag Gentle Dress 6"X6"] 1 each TP DAILY Sodium Chloride 0.45 % [Sodium Chloride] 75 ml IV DAILY 09/28/16 Vitamin B Comp W-C [Nephro-Rafael -] 1 tablet GT DAILY 09/28/16 Anemia: Yes Asthma: No Cancer: No Cardiac Disorders: No CVA: Yes COPD: No CHF: Yes Dementia: Yes Diabetes: Yes (iddm) GI Disorders: Yes HTN: Yes Hypercholesterolemia: Yes Kidney Stones: No (acute kidney failure) Psychiatric Problems: Yes (anxeity,agitation,depression) Seizures: No Thyroid Disease: Yes - Surgical History Abdominal Surgery: Yes (GT PLACEMENT.) - Reproductive History Ectopic : No Polycystic Ovaries: No - Psycho/Social/Smoking Cessation Hx Anxiety: No Suicidal Ideation: No Smoking Status: No Smoking History: Unknown if ever smoked Have you smoked in the past 12 months: No Number of Cigarettes Smoked Daily: 0 Information on smoking cessation initiated: No Hx Alcohol Use: No Drug/Substance Use Hx: No Substance Use Type: None Hx Substance Use Treatment: No Review of Systems - Review of Systems Able to Perform ROS?: No Comments:: 09/28/16 11:59 Unable to assess ROS because patient is demented at baseline. Some ROS information was provided by the long term documents and the nursing staff. Constitutional: Yes: Fever Psychiatric: Yes: Other (Dementia) *Physical Exam - Vital Signs Last Vital Signs Temp Pulse Resp BP Pulse Ox 100.8 F H 100 H 21 124/76 95 09/28/16 09:05 09/28/16 09:05 09/28/16 09:05 09/28/16 09:05 09/28/16 09:05 - Physical Exam General Appearance: Yes: Mild Distress, Other (Patient unresponsive to questions. Responds to pain. ) Respiratory/Chest: positive: Lungs Clear, Normal Breath Sounds. negative: Labored Respiration, Rapid RR, Crackles, Rales, Rhonchi, Stridor, Wheezing Cardiovascular: positive: Regular Rhythm, Regular Rate. negative: S1, S2 Gastrointestinal/Abdominal: negative: Tender, Distended, Guarding Musculoskeletal: positive: Other (B/L BKA; 8cm x 5cm stage 4 sacral decubitus ulcer, bright red with some slough but no eschar) Neurologic: positive: Respond to painful stimul, Confused, Disoriented ED Treatment Course - LABORATORY CBC & Chemistry Diagram: 10/01/16 10:10 10/01/16 10:10 - RADIOLOGY Radiograph Interpretation: 09/28/16 10:37 CXR: Preliminary read by Aristides Rinaldi MD: Slight increase in the density of the RLL lung base possibly from increased consolidation. 09/28/16 10:42 CXR: Reported By: Daljit Kent MD Impression : No significant change since prior study (on 09/06/2016). Mitral annulus calcification. Sclerotic knob. Increased density medial right base. Follow-up recommended. Medical Decision Making - Medical Decision Making 09/28/16 10:52 Patient presented with multiple criteria for SIRS, a history of recent multi- drug resistant UTI and a large sacral decubitus ulcer. Ddx: Sepsis, Severe sepsis, septic shock, UTI, PNA, bacteremia Possible sources of infection include UTI, PNA, other unknown source Initiate sepsis workup including IV fluid bolus, lactic acid, UA and CXR Consult ID for proper antibiotics 09/28/16 11:02 Abnormal lab results significant for an elevated WBC of 14.6 and an initial lactic acid of 2.6 meeting the criteria for severe sepsis. While patient has dementia at baseline there are with no reported mental status changes and patient has a stable BP and does not meet criteria for septic shock. 09/28/16 11:25 Patient responding to fluids: stable BP (124/62) and improvement in HR (96) and RR (18). Paitient seen in ED by ID (Dr. Hollis) Patient seen in ED by Dr. Rashawn Garcia Decision to admit patient. *DC/Admit/Observation/Transfer Diagnosis at time of Disposition: Systemic inflammatory response syndrome (SIRS), Severe sepsis UTI (urinary tract infection) Qualifiers: Urinary tract infection type: acute cystitis Hematuria presence: without hematuria Qualified Code(s): N30.00 - Acute cystitis without hematuria - Discharge Dispostion Condition at time of disposition: Fair Admit: Yes - Referrals - Attestations Physician Attestion: 10/01/16 12:49 I, Dr. Aristides Rinaldi, attest that this document has been prepared under my direction and personally reviewed by me in its entirety. I further attest, that it accurately reflects all work, treatment, procedures and medical decision -making performed by me.
[2016-09-28 09:43] LABS: VENOUS BLOOD GAS HCO3 31.8 meq/L (19-25); VENOUS PH 7.36 (7.32-7.42)
--- NOTE | 2016-09-28 09:44 | PDOC ---
Attending Attestation - Resident Resident Name: Aristides Rinaldi - ED Attending Attestation I have performed the following: I have examined & evaluated the patient, The case was reviewed & discussed with the resident, I agree w/resident's findings & plan, Exceptions are as noted - HPI HPI: 09/28/16 09:44 81 yo F s/p recent admission to the hospital for sepsis (either urinary source - ESBL vs. sacral decubitus) Pt s/p recent admission for sepsis discharged on Nitrofurantoin and gentamycin Pt apparently stable until noted to have fevers a few days ago Started on Cephalosporin temp today associated with alterations in mentation Given tylenol sent to the ER 09/28/16 09:46 - Physicial Exam PE: 09/28/16 09:48 Pt is mumbling RRR Tachypneic No abd distention Sacral decubitis (bone exposed) No wound break down at stumps Gonzales cathether placed with return of angela purulent fluid 09/28/16 09:49 - Critical Care Time Total Critical Care Time: 60 Critical Care Statement: The care of this patient involved high complexity decision making to prevent further life threatening deterioration of the patient 's condition and/or to evalute & treat vital organ system(s) failure or risk of failure. - Medical Decision Making 09/28/16 09:49 Sepsis order set placed Empiric abx ordered based on cultures Vancomycin (she is still sensitive to this) She is resistant to Meropenam Will change to Gent or Tobra (call placed to ID) NS bolus Admit to ICU 09/28/16 09:51 09/28/16 10:[address] Galaviz He will review this case and give recommendation re: abx 09/28/16 10:29 CXR: RLL increased density 09/28/16 10:30 Laboratory Tests 10/06/15 09/28/16 09/28/16 08:19 09:36 09:36 WBC 14.6 H D Hgb 9.4 L Hct 28.4 L Plt Count 434 D Neutrophils % 74.0 D Lymphocytes % 19.3 D Sodium 144 Potassium 4.5 Chloride 105 Carbon Dioxide 33 H BUN 60 H D Creatinine 1.0 D Random Glucose 264 H D Creatine Kinase 70 Troponin I 0.02 Urine Ketones Urine Blood Urine Nitrite Ur Leukocyte Esterase Urine RBC Urine WBC Acetone, Qual Negative L 09/28/16 09:49 WBC Hgb Hct Plt Count Neutrophils % Lymphocytes % Sodium Potassium Chloride Carbon Dioxide BUN Creatinine Random Glucose Creatine Kinase Troponin I Urine Ketones Trace H Urine Blood 3+ H Urine Nitrite Positive Ur Leukocyte Esterase 2+ H Urine RBC >100 Urine WBC >100 Acetone, Qual <JordonPatti - Last Filed: 09/30/16 16:58> Discharge Disposition <Ana Cano - Last Filed: 09/28/16 11:45> - Discharge Dispostion Last Admission D/C Date: 09/10/16 Admit: Yes <Patti Ruvalcaba - Last Filed: 09/30/16 16:58> - Diagnosis Systemic inflammatory response syndrome (SIRS), Severe sepsis UTI (urinary tract infection) Qualifiers: Urinary tract infection type: acute cystitis Hematuria presence: without hematuria Qualified Code(s): N30.00 - Acute cystitis without hematuria - Discharge Dispostion Condition at time of disposition: Fair Heart Score/ECG Review #1 ECG reviewed & interpreted by me at: 09:53 09/28/16 09:53 Twelve-lead EKG was performed and reviewed by me. There is normal sinus rhythm with a normal rate. The axis is normal. The intervals are normal. There are no ST or T wave abnormalities. Impression: Normal twelve-lead EKG <Patti Ruvalcaba - Last Filed: 09/30/16 16:58> Medical Decision Making - Medical Decision Making 09/28/16 11:00 Dr. Galaviz, Infectious Disease, was consulted via phone call at 10:18. Dr. Huertas, Infectious Disease, is at the patient's bedside at 11:14 Dr. Garcia was paged for admission of this patient to the hospital at 11:17. Dr. Garcia presents to patient's bedside at 11:19 Documentation prepared by Ana Cano, acting as medical review specialist for Patti Ruvalcaba MD <Ana Cano - Last Filed: 09/28/16 11:45>
[2016-09-28 09:47] LABS: BASOPHIL 0.5 % (0-2.0); EOSINOPHIL 0.4 % (0-4.5); MCH 30.9 pg (25.7-33.7); MCHC 33.2 g/dl (32.0-36.0); MEAN CELL VOLUME 93.1 fl (80-96); MEAN PLT VOLUME 8.2 fl (7.5-11.1); PLATELET COUNT 434 K/MM3 (134-434); RDW 16.9 % (11.6-15.6); WHITE BLOOD COUNT 14.6 K/mm3 (4.0-10.0)
[2016-09-28] MEDS ORDERED: VANCOMYCIN 1,000 MG in DEXTROSE 5%-WATER - 250 ML IVPB ONE (09:47)
[2016-09-28] MEDS ORDERED: VANCOMYCIN 1,000 MG in DEXTROSE 5%-WATER - 250 ML IVPB SCH (10:00)
[2016-09-28 10:07] LABS: URINE BILIRUBIN NEGATIVE (NEGATIVE); URINE GLUCOSE (UA) 2+ (NEGATIVE); URINE KETONE TRACE (NEGATIVE); URINE UROBILINOGEN 0.2 E.U/dl E.U./dl (0.2-1.0)
[2016-09-28 10:08] LABS: ALBUMIN 2.1 g/dl (3.4-5.0); ANION GAP 6 (8-16); BILIRUBIN,TOTAL 0.2 mg/dL (0.2-1.0); CALCIUM 9.2 mg/dL (8.5-10.1); CO2 33 mmol/L (21-32); GLUCOSE,RANDOM 264 mg/dL (74-106); SGOT/AST 20 U/L (15-37); SGPT/ALT 19 U/L (12-78); TOT PROT 8.2 g/dl (6.4-8.2)
[2016-09-28 10:10] LABS: URINE APPEARANCE TURBID; URINE BLOOD 3+ (NEGATIVE); URINE COLOR PINK; URINE LEUK ESTERASE 2+ (NEGATIVE); URINE NITRITE POSITIVE (NEGATIVE); URINE PROTEIN 1+ (NEGATIVE)
[2016-09-28 10:10] LABS: ALK PHOS 132 U/L (45-117); TROPONIN I 0.02 ng/ml (0.00-0.05)
[2016-09-28 10:11] LABS: URINE RBC >100 /hpf (0-3); URINE WBC >100 /hpf (3-5)
[2016-09-28 10:12] LABS: URINE BACTERIA MANY /hpf (NONE SEEN)
[2016-09-28 10:33] LABS: INR 1.04 (0.82-1.09); PROTHROMBIN TIME (PATIENT) 11.4 SEC (9.98-11.88)
[2016-09-28 10:36] LABS: ACTIVATED PTT 26.1 SECONDS (26.9-34.4)
--- NOTE | 2016-09-28 11:09 | PN ---
Progress Note (short form) - Note Progress Note: ID Consult dictated Sepsis UTI v. Lung v. decubitus source Hx CRE Await c/s Empiric Tygacil/ genta
[2016-09-28] MEDS ORDERED: GENTAMICIN SO4 80 MG/2 ML VIAL ONE (11:25)
--- NOTE | 2016-09-28 11:29 | HP ---
Admitting History and Physical - Admission History of Present Illness: 81 year old female with a recent history of antibiotic resistance UTI and an active stage 4 decubitus ulcer presenting from the [facility] for fever Patient is currently receiving antibiotics cefapime for the UTI and was reported to have had an intermittent fever for several days. 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 Cardiovascular: Yes: Aortic Stenosis, CHF, HTN, Hyperlipdemia Pulmonary: Yes: COPD Gastrointestinal: Yes: GERD Renal/: Yes: Renal Inusuff Heme/Onc: Yes: Anemia Endocrine: Yes: Diabetes Mellitus Dermatology: Yes: Other (PU) - Smoking History Smoking history: Unknown if ever smoked Have you smoked in the past 12 months: No Aproximately how many cigarettes per day: 0 - Alcohol/Substance Use Hx Alcohol Use: No - Social History History of Recent Travel: No Home Medications - Allergies Allergies/Adverse Reactions: Allergies Allergy/AdvReac Type Severity Reaction Status Date / Time No Known Drug Allergies Allergy Verified 09/28/16 09:35 - Home Medications Home Medications: Ambulatory Orders Aa/[place] Ivone,[place]hey/Arg/C/Zn/Cu [Lps Critical Care Liquid] 960 ml GT BID Acetaminophen Oral Solution [Tylenol Oral Solution -] 640 mg PO Q6H PRN Ascorbate Calcium [Vitamin C] 500 mg GT BID 09/28/16 Ascorbic Acid [Vitamin C] 500 mg GT DAILY 09/28/16 Cefepime HCl/Dextrose, Iso-Osm [Cefepime 1 gm Injection] 1 gm IV DAILY 09/28/16 Doxazosin Mesylate 2 mg GT HS 09/28/16 Escitalopram Oxalate [Lexapro Oral Solution -] 10 mg GT DAILY 09/28/16 Famotidine 20 mg GT DAILY 09/28/16 Fentanyl 1 each TD Q72H 09/28/16 Ferrous Sulfate *Liquid* [Feosol [ALCOHOL FREE]] 330 mg GT DAILY 09/28/16 Heparin - 5,000 unit SQ BID 09/28/16 Insulin Detemir [Levemir Flextouch] 10 unit SQ DAILY 09/28/16 Insulin Detemir [Levemir Flextouch] 12 unit SQ HS 09/28/16 Insulin Lispro [Humalog] 100 unit SQ TID 09/28/16 Lactobacillus Acidophilus [Acidophilus] 1 each GT BID 09/28/16 Mirtazapine [Remeron -] 30 mg GT HS 09/28/16 Olanzapine [Zyprexa] 5 mg GT HS 09/28/16 Silver Sulfadiaz/Foam Bandage [Allevyn Ag Gentle Dress 6"X6"] 1 each TP DAILY Sodium Chloride 0.45 % [Sodium Chloride] 75 ml IV DAILY 09/28/16 Vitamin B Comp W-C [Nephro-Rafael -] 1 tablet GT DAILY 09/28/16 Review of Systems - Review of Systems Constitutional: reports: Fever Physical Examination Vital Signs: Vital Signs Temperature 100.8 F H 09/28/16 09:05 Pulse Rate 88 09/28/16 11:19 Respiratory Rate 22 09/28/16 11:19 Blood Pressure 126/63 09/28/16 11:19 O2 Sat by Pulse Oximetry (%) 100 09/28/16 11:19 Neck: Yes: Supple Cardiovascular: Yes: Murmur, S1, S2 Respiratory: Yes: Regular, CTA Bilaterally Gastrointestinal: Yes: Normal Bowel Sounds, Soft. No: Tenderness Labs: CBC, BMP 09/28/16 09:36 09/28/16 09:36 Problem List - Problems (1) Systemic inflammatory response syndrome (SIRS) Assessment/Plan: IVF IV ABX MONITOR LABS ID CONSULT Code(s): R65.10 - SIRS OF NON-INFECTIOUS ORIGIN W/O ACUTE ORGAN DYSFUNCTION (2) UTI (urinary tract infection) Assessment/Plan: ABOVE Code(s): N39.0 - URINARY TRACT INFECTION, SITE NOT SPECIFIED Qualifiers: Urinary tract infection type: acute cystitis Hematuria presence: without hematuria Qualified Code(s): N30.00 - Acute cystitis without hematuria (3) Anemia Assessment/Plan: MONITOR Code(s): D64.9 - ANEMIA, UNSPECIFIED Qualifiers: Anemia type: iron deficiency (4) Aortic stenosis Code(s): I35.0 - NONRHEUMATIC AORTIC (VALVE) STENOSIS Qualifiers: Cardiac valve disease etiology: nonrheumatic Qualified Code(s): I35.0 - Nonrheumatic aortic (valve) stenosis (5) Diabetes Assessment/Plan: INSULIN BGM Code(s): E11.9 - TYPE 2 DIABETES MELLITUS WITHOUT COMPLICATIONS Qualifiers: Diabetes mellitus type: type 2
[2016-09-28] MEDS ORDERED: TIGECYCLINE 100 MG in DEXTROSE 5%-WATER - 100 ML IVPB ONE (11:30)
[2016-09-28] MEDS ORDERED: SODIUM CHLORIDE 1,000 ML IV SCH (11:45)
[2016-09-28] MEDS ORDERED: GENTAMICIN IVPB ONE (12:00)
[2016-09-28] MEDS ORDERED: SODIUM CHLORIDE IVPB ONE (12:00)
--- NOTE | 2016-09-28 12:48 | EKG ---
Test Reason : Blood Pressure : / mmHG Vent. Rate : 097 BPM Atrial Rate : 097 BPM P-R Int : 106 ms QRS Dur : 094 ms QT Int : 386 ms P-R-T Axes : -11 -09 084 degrees QTc Int : 490 ms SINUS RHYTHM WITH SHORT OK NONSPECIFIC ST AND T WAVE ABNORMALITY PROLONGED QT ABNORMAL ECG WHEN COMPARED WITH ECG OF 07-SEP-2016 09:24, ST SEGMENTS ARE NEAR ISOELECTRIC IN PRECORDIALS LEADS AND T WAVES ARE UPRIGHT IN V4 TO V6. PLEASE CORELATE CLINICALLY. Confirmed by RUBEN DURAN MD ([id number]) on 09/28/2016 12:47:45 PM Referred By: Confirmed By:RUBEN DURAN MD
[2016-09-28] MEDS: ACETAMINOPHEN 650 MG/20.3 ML ORAL SOLUTION (CUPS) GT PRN (16:56)
[2016-09-28] MEDS: INSULIN SLIDING SCALE (NOVOLOG) 1 VIAL SQ SCH ×2 (17:15→21:45)
[2016-09-28] MEDS ORDERED: PT OWN MED DRAWER 7, Y5N ONE (20:45)
[2016-09-28] MEDS: ASCORBIC ACID 500 MG/5 ML UNIT DOSE CUP GT SCH (21:40)
[2016-09-28] MEDS: OLANZapine 5 MG TABLET GT SCH (21:40)
[2016-09-28] MEDS: DOXAZOSIN MESYLATE 2 MG TABLET (FP) GT SCH (21:40)
[2016-09-28] MEDS: INSULIN DETEMIR 100 UNITS/ML MDV SQ SCH (21:46)
[2016-09-28] MEDS ORDERED: PATIENT'S OWN MEDICATION (NON-FORMULARY) (Aa/Hydro Coll,Whey/Arg/C/Zn/Cu [Lps Critical Car GT SCH (22:00)
[2016-09-28] MEDS: TIGECYCLINE 50 MG in DEXTROSE 5%-WATER - 100 ML IVPB SCH (22:35)
[2016-09-29] MEDS: ACETAMINOPHEN 650 MG/20.3 ML ORAL SOLUTION (CUPS) GT PRN ×3 (05:32→18:56)
[2016-09-29] MEDS: INSULIN SLIDING SCALE (NOVOLOG) 1 VIAL SQ SCH ×4 (06:08→22:23)
[2016-09-29 08:24] LABS: BASOPHIL 0.6 % (0-2.0); EOSINOPHIL 0.6 % (0-4.5); MCH 31.1 pg (25.7-33.7); MCHC 32.9 g/dl (32.0-36.0); MEAN CELL VOLUME 94.7 fl (80-96); MEAN PLT VOLUME 8.5 fl (7.5-11.1); NEUTROPHILS 75.8 % (42.8-82.8); PLATELET COUNT 363 K/MM3 (134-434); RDW 17.2 % (11.6-15.6); WHITE BLOOD COUNT 15.1 K/mm3 (4.0-10.0)
[2016-09-29 08:28] LABS: ALBUMIN 1.7 g/dl (3.4-5.0); ANION GAP 6 (8-16); CO2 30 mmol/L (21-32); GLUCOSE,RANDOM 239 mg/dL (74-106)
[2016-09-29 09:02] LABS: ALK PHOS 96 U/L (45-117); BILIRUBIN,TOTAL 0.2 mg/dL (0.2-1.0); CALCIUM 8.9 mg/dL (8.5-10.1); CREATININE 0.9 mg/dL (0.55-1.02); SGOT/AST 19 U/L (15-37); SGPT/ALT 16 U/L (12-78)
--- NOTE | 2016-09-29 09:05 | CONS ---
DATE OF CONSULTATION: DATE OF DICTATION: 09/29/2016 The patient is an 81-year-old female with multiple recent hospital admissions, now readmitted with fever. History was obtained from the chart as she cannot give a history secondary to dementia. The patient has had recurrent hospital admissions for urosepsis and sepsis secondary to a sacral decubitus ulcer. [facility] the shelter she was noted to be febrile. She was treated with nitrofurantoin for a urinary tract infection without improvement. Patient developed tachycardia and elevated white blood cell count. She was transferred to [facility] Emergency Room where her temperature was 100.8, white blood cell count 14.6. A Gonzales catheter was placed and urine was grossly purulent. She suffers from dementia and cannot give any history. She has had a history of recurrent urinary tract infections and urosepsis including CRE organisms. No reports of shaking chills, labored breathing, cough, sputum production, vomiting, or diarrhea. PAST MEDICAL HISTORY: Positive for dementia, history of recurrent urinary tract infections, stage IV sacral decubitus ulcer, hypertension, hyperlipidemia, gastroesophageal reflux. PAST SURGICAL HISTORY: Status post feeding gastrostomy, bilateral [id number] amputations, and debridement of sacral decubitus ulcer. ALLERGIES: No known allergies. MEDICATIONS: 1. Tylenol. 2. Cefepime. 3. Lexapro. 4. Pepcid. SOCIAL HISTORY: She is a shelter resident, suffers from dementia, is dependent in activities of daily living. REVIEW OF SYSTEMS: Neurologic: Positive for dementia. Cardiac: Negative for chest pain or palpitations. Respiratory: Negative cough or sputum production. Gastrointestinal: Status post feeding gastrostomy. Genitourinary: As per HPI. LABORATORY DATA: White count 14.6, hematocrit 28.4, platelet count 434, BUN 60, creatinine 1.0. Liver enzymes normal. Urinalysis greater than 100 white cells. Chest x-ray shows an increased density at the right base. PHYSICAL EXAMINATION: General: She is awake. She is confused. She is in no acute distress. Breathing is not labored. Vital Signs: Temperature 100.8. Blood pressure 107/43, pulse 89, regular. Respirations 22 per minute. HEENT: Sclerae are anicteric. Cardiovascular: Heart sounds S1, S2. Lungs: Diminished breath sounds bilaterally. Abdomen: Soft. No tenderness elicited. Feeding gastrostomy tube is in place. Skin: There is a stage IV sacral decubitus ulcer present. Extremities: Patient is status post bilateral [id number] amputations. The surgical sites appear to be well healed without evidence of infection. Genitourinary: Gonzales catheter is in place. Urine is grossly purulent. IMPRESSION: 1. Sepsis, likely urinary tract source. 2. Possible right lower lobe pneumonia. 3. Stage IV sacral decubitus ulcer. 4. History of carbapenem-resistant Enterobacteriaceae. PLAN: Await sepsis workup. Empiric antibiotic coverage with Tygacil pending cultures 100 mg IV piggyback stat plus 50 mg IV piggyback every 12 hours. Gentamicin 200 mg IV piggyback stat dose with gentamicin level in a.m. Continue supportive measures, contact precautions. Will follow. Thank you for the kind referral. ARVIND HENLEY M.D. [id number]
[2016-09-29] MEDS ORDERED: PT OWN MED DRAWER 7, Y5N ONE ×5 (09:15→23:05)
[2016-09-29] MEDS: TIGECYCLINE 50 MG in DEXTROSE 5%-WATER - 100 ML IVPB SCH ×2 (09:33→22:35)
[2016-09-29] MEDS: ASCORBIC ACID 500 MG/5 ML UNIT DOSE CUP GT SCH ×2 (09:33→22:24)
[2016-09-29] MEDS: FERROUS SO4 300 MG/5 ML ORAL SOLN UNIT DOSE CUPS GT SCH (09:33)
[2016-09-29] MEDS: RANITIDINE HCL 150 MG/10 ML UNIT-DOSE CUP GT SCH (09:33)
[2016-09-29] MEDS: ESCITALOPRAM OXALATE 5 MG/5 ML GT SCH (09:33)
--- NOTE | 2016-09-29 10:43 | EKG ---
Test Reason : Blood Pressure : / mmHG Vent. Rate : 088 BPM Atrial Rate : 088 BPM P-R Int : 100 ms QRS Dur : 088 ms QT Int : 388 ms P-R-T Axes : 007 -02 091 degrees QTc Int : 469 ms SINUS RHYTHM WITH SHORT CO ABNORMAL QRS-T ANGLE, CONSIDER PRIMARY T WAVE ABNORMALITY ABNORMAL ECG WHEN COMPARED WITH ECG OF 28-SEP-2016 09:27, NO SIGNIFICANT CHANGE WAS FOUND Confirmed by CHA DEL RIO MD ([id number]) on 09/29/2016 10:43:08 AM Referred By: George LIMA Confirmed By:CHA DEL RIO MD
[2016-09-29] MEDS ORDERED: INSULIN (NOVOLOG) ASPART 100 UNITS/ML 10ML VIAL ONE (11:15)
--- NOTE | 2016-09-29 11:43 | PN ---
Progress Note, Physician History of Present Illness: Lethargic, confused Remains febrile Cultures prelim no growth Urine in conley collection bag clearer - Current Medication List Current Medications: Active Medications Acetaminophen (Tylenol Oral Solution -) 650 mg GT Q6H PRN PRN Reason: pain/fever Last Admin: 09/29/16 05:32 Dose: 650 mg Ascorbic Acid (Vitamin C Oral Solution -) 500 mg GT BID [facility] Last Admin: 09/29/16 09:33 Dose: 500 mg Doxazosin Mesylate (Cardura -) 2 mg GT HS [facility] Last Admin: 09/28/16 21:40 Dose: 2 mg Escitalopram Oxalate (Lexapro Oral Solution -) 10 mg GT DAILY [facility] Last Admin: 09/29/16 09:33 Dose: 10 mg Ferrous Sulfate (Feosol) 300 mg GT DAILY [facility] Last Admin: 09/29/16 09:33 Dose: 300 mg Tigecycline 50 mg/ Dextrose 100 mls @ 100 mls/hr IVPB BID [facility] PRN Reason: Protocol Last Admin: 09/29/16 09:33 Dose: 100 mls/hr Insulin Aspart (Novolog Vial Sliding Scale -) 1 vial SQ ACHS [facility] PRN Reason: Protocol Last Admin: 09/29/16 11:17 Dose: 5 units Insulin Detemir (Levemir Vial) 12 units SQ HS [facility] Last Admin: 09/28/16 21:46 Dose: 12 units Olanzapine (Zyprexa -) 5 mg GT HS [facility] Last Admin: 09/28/16 21:40 Dose: 5 mg Ranitidine HCl (Zantac Oral Solution -) 150 mg GT DAILY [facility] Last Admin: 09/29/16 09:33 Dose: 150 mg - Objective Vital Signs: Vital Signs Temperature 98.9 F 09/29/16 08:40 Pulse Rate 87 09/29/16 08:40 Respiratory Rate 18 09/29/16 08:40 Blood Pressure 100/46 09/29/16 08:40 O2 Sat by Pulse Oximetry (%) 100 09/28/16 21:00 Constitutional: Yes: No Distress Eyes: Yes: Conjunctiva Clear Cardiovascular: Yes: Regular Rate and Rhythm, S1, S2 Respiratory: Yes: CTA Bilaterally Gastrointestinal: Yes: Normal Bowel Sounds, Soft. No: Tenderness Extremities: Yes: Other (S/P B/L BKA) Labs: CBC, BMP 09/29/16 06:10 09/29/16 06:10 INR, PTT INR 1.04 (0.82-1.09) 09/28/16 09:36 Assessment/Plan UTI/ Sepsis secondary to UTI Possible RLL pneumonia Hx CRE OBS Await c/s Continue Tygacil Gentamycin level theraputic
--- NOTE | 2016-09-29 15:02 | PN ---
Progress Note, Physician Chief Complaint: UTI, INFECTED DECUBITUS ULCER History of Present Illness: HAS CHRONIC DECUBITUS ULCER, CAME IN WITH UTI, NON VERBAL, LETHARGIC - Current Medication List Current Medications: Active Medications Acetaminophen (Tylenol Oral Solution -) 650 mg GT Q6H PRN PRN Reason: pain/fever Last Admin: 09/29/16 12:37 Dose: 650 mg Ascorbic Acid (Vitamin C Oral Solution -) 500 mg GT BID [facility] Last Admin: 09/29/16 09:33 Dose: 500 mg Doxazosin Mesylate (Cardura -) 2 mg GT HS [facility] Last Admin: 09/28/16 21:40 Dose: 2 mg Escitalopram Oxalate (Lexapro Oral Solution -) 10 mg GT DAILY [facility] Last Admin: 09/29/16 09:33 Dose: 10 mg Ferrous Sulfate (Feosol) 300 mg GT DAILY [facility] Last Admin: 09/29/16 09:33 Dose: 300 mg Tigecycline 50 mg/ Dextrose 100 mls @ 100 mls/hr IVPB BID [facility] PRN Reason: Protocol Last Admin: 09/29/16 09:33 Dose: 100 mls/hr Insulin Aspart (Novolog Vial Sliding Scale -) 1 vial SQ ACHS [facility] PRN Reason: Protocol Last Admin: 09/29/16 11:17 Dose: 5 units Insulin Detemir (Levemir Vial) 12 units SQ HS [facility] Last Admin: 09/28/16 21:46 Dose: 12 units Olanzapine (Zyprexa -) 5 mg GT HS [facility] Last Admin: 09/28/16 21:40 Dose: 5 mg Ranitidine HCl (Zantac Oral Solution -) 150 mg GT DAILY [facility] Last Admin: 09/29/16 09:33 Dose: 150 mg - Objective Vital Signs: Vital Signs Temperature 98.9 F 09/29/16 08:40 Pulse Rate 93 H 09/29/16 11:26 Respiratory Rate 18 09/29/16 08:40 Blood Pressure 100/46 09/29/16 08:40 O2 Sat by Pulse Oximetry (%) 95 09/29/16 11:26 Constitutional: Yes: Well Nourished, No Distress, Calm Cardiovascular: Yes: Regular Rate and Rhythm, Murmur (LSB GRADE III) Respiratory: Yes: Regular Gastrointestinal: Yes: Normal Bowel Sounds Genitourinary: Yes: Gonzales Present Musculoskeletal: Yes: WNL Extremities: Yes: Amputation (BLLE) Integumentary: Yes: Pressure Ulcer Wound/Incision: Yes: Dressing Dry and Intact Neurological: Yes: Aphasia, Lethargy Labs: CBC, BMP 09/29/16 06:10 09/29/16 06:10 INR, PTT INR 1.04 (0.82-1.09) 09/28/16 09:36 Problem List - Problems (1) Systemic inflammatory response syndrome (SIRS) Assessment/Plan: IV ABX UC- LACTOSE FERMENTING GRAM NEGATIVE BACILLI PENDING SENSITIVITY URINARY CATHETER AFEBRILE SINCE 6 AM TYLENOL FOR FEVER OVER 100.0F Code(s): R65.10 - SIRS OF NON-INFECTIOUS ORIGIN W/O ACUTE ORGAN DYSFUNCTION (2) UTI (urinary tract infection) Assessment/Plan: IV ABX UC- LACTOSE FERMENTING GRAM NEGATIVE BACILLI PENDING SENSITIVITY URINARY CATHETER AFEBRILE SINCE 6 AM TYLENOL FOR FEVER OVER 100.0F Code(s): N39.0 - URINARY TRACT INFECTION, SITE NOT SPECIFIED Qualifiers: Urinary tract infection type: acute cystitis Hematuria presence: without hematuria Qualified Code(s): N30.00 - Acute cystitis without hematuria (3) Decubitus ulcer Assessment/Plan: STAGE IV, CHRONIC, DRAINING Code(s): L89.90 - PRESSURE ULCER OF UNSPECIFIED SITE, UNSPECIFIED STAGE Qualifiers: Pressure ulcer location: buttock Assessment/Plan IV ABX UC- LACTOSE FERMENTING GRAM NEGATIVE BACILLI PENDING SENSITIVITY URINARY CATHETER CONTINUE TO MONITOR VITALS-AFEBRILE SINCE 6 AM TYLENOL FOR FEVER OVER 100.0F NUTRITION CONSULT
[2016-09-29] MEDS: OLANZapine 5 MG TABLET GT SCH (22:21)
[2016-09-29] MEDS: DOXAZOSIN MESYLATE 2 MG TABLET (FP) GT SCH (22:22)
[2016-09-29] MEDS: INSULIN DETEMIR 100 UNITS/ML MDV SQ SCH (22:22)
[2016-09-30] MEDS: ACETAMINOPHEN 650 MG/20.3 ML ORAL SOLUTION (CUPS) GT PRN ×3 (06:07→18:42)
[2016-09-30] MEDS: INSULIN SLIDING SCALE (NOVOLOG) 1 VIAL SQ SCH ×4 (06:16→21:12)
[2016-09-30 07:57] LABS: BASOPHIL 0.4 % (0-2.0); EOSINOPHIL 1.3 % (0-4.5); MCH 30.6 pg (25.7-33.7); MEAN CELL VOLUME 95.4 fl (80-96); MEAN PLT VOLUME 8.6 fl (7.5-11.1); NEUTROPHILS 72.4 % (42.8-82.8); PLATELET COUNT 389 K/MM3 (134-434); RDW 17.4 % (11.6-15.6); WHITE BLOOD COUNT 14.9 K/mm3 (4.0-10.0)
[2016-09-30 08:37] LABS: ALBUMIN 1.7 g/dl (3.4-5.0); ALK PHOS 131 U/L (45-117); ANION GAP 6 (8-16); BILIRUBIN,TOTAL 0.3 mg/dL (0.2-1.0); CALCIUM 8.6 mg/dL (8.5-10.1); CO2 31 mmol/L (21-32); CREATININE 0.8 mg/dL (0.55-1.02); GLUCOSE,RANDOM 256 mg/dL (74-106); SGOT/AST 16 U/L (15-37); SGPT/ALT 18 U/L (12-78); TOT PROT 7.1 g/dl (6.4-8.2)
[2016-09-30] MEDS ORDERED: PT OWN MED DRAWER 7, Y5N ONE ×4 (09:24→20:53)
[2016-09-30] MEDS: TIGECYCLINE 50 MG in DEXTROSE 5%-WATER - 100 ML IVPB SCH ×2 (09:30→21:10)
[2016-09-30] MEDS: FERROUS SO4 300 MG/5 ML ORAL SOLN UNIT DOSE CUPS GT SCH (09:30)
[2016-09-30] MEDS: RANITIDINE HCL 150 MG/10 ML UNIT-DOSE CUP GT SCH (09:31)
[2016-09-30] MEDS: ESCITALOPRAM OXALATE 5 MG/5 ML GT SCH (09:34)
[2016-09-30] MEDS: ASCORBIC ACID 500 MG/5 ML UNIT DOSE CUP GT SCH ×2 (09:34→21:10)
--- NOTE | 2016-09-30 10:16 | PN ---
Progress Note, Physician Chief Complaint: UTI, INFECTED DECUBITUS ULCER History of Present Illness: HAS CHRONIC DECUBITUS ULCER, CAME IN WITH UTI, NON VERBAL, LETHARGIC - Current Medication List Current Medications: Active Medications Acetaminophen (Tylenol Oral Solution -) 650 mg GT Q6H PRN PRN Reason: pain/fever Last Admin: 09/30/16 06:07 Dose: 650 mg Ascorbic Acid (Vitamin C Oral Solution -) 500 mg GT BID [facility] Last Admin: 09/30/16 09:34 Dose: 500 mg Doxazosin Mesylate (Cardura -) 2 mg GT HS [facility] Last Admin: 09/29/16 22:22 Dose: 2 mg Escitalopram Oxalate (Lexapro Oral Solution -) 10 mg GT DAILY [facility] Last Admin: 09/30/16 09:34 Dose: 10 mg Ferrous Sulfate (Feosol) 300 mg GT DAILY [facility] Last Admin: 09/30/16 09:30 Dose: 300 mg Tigecycline 50 mg/ Dextrose 100 mls @ 100 mls/hr IVPB BID [facility] PRN Reason: Protocol Last Admin: 09/30/16 09:30 Dose: 100 mls/hr Insulin Aspart (Novolog Vial Sliding Scale -) 1 vial SQ ACHS [facility] PRN Reason: Protocol Insulin Detemir (Levemir Vial) 12 units SQ HS [facility] Last Admin: 09/29/16 22:22 Dose: 12 units Olanzapine (Zyprexa -) 5 mg GT HS [facility] Last Admin: 09/29/16 22:21 Dose: 5 mg Ranitidine HCl (Zantac Oral Solution -) 150 mg GT DAILY [facility] Last Admin: 09/30/16 09:31 Dose: 150 mg - Objective Vital Signs: Vital Signs Temperature 101.7 F H 09/30/16 06:00 Pulse Rate 91 H 09/30/16 06:00 Respiratory Rate 18 09/30/16 06:00 Blood Pressure 120/66 09/30/16 06:00 O2 Sat by Pulse Oximetry (%) 95 09/29/16 21:00 Constitutional: Yes: Well Nourished, No Distress, Calm Cardiovascular: Yes: Regular Rate and Rhythm Respiratory: Yes: Regular Gastrointestinal: Yes: Normal Bowel Sounds Musculoskeletal: Yes: WNL Extremities: Yes: Amputation (BLLE) Edema: No Integumentary: Yes: Pressure Ulcer (STAGE 4 SACRAL ULCER) Wound/Incision: Yes: Dressing Dry and Intact Neurological: Yes: Aphasia Labs: CBC, BMP 09/30/16 06:00 09/30/16 06:00 INR, PTT INR 1.04 (0.82-1.09) 09/28/16 09:36 Problem List - Problems (1) Systemic inflammatory response syndrome (SIRS) Assessment/Plan: IV ABX UC- LACTOSE FERMENTING GRAM NEGATIVE BACILLI PENDING SENSITIVITY URINARY CATHETER AFEBRILE SINCE 6 AM TYLENOL FOR FEVER OVER 100.0F Code(s): R65.10 - SIRS OF NON-INFECTIOUS ORIGIN W/O ACUTE ORGAN DYSFUNCTION (2) UTI (urinary tract infection) Assessment/Plan: IV ABX UC- LACTOSE FERMENTING GRAM NEGATIVE BACILLI ON TIGECYCLINE SEEN BY ID PENDING SENSITIVITY URINARY CATHETER AFEBRILE SINCE 6 AM TYLENOL FOR FEVER OVER 100.0F Code(s): N39.0 - URINARY TRACT INFECTION, SITE NOT SPECIFIED Qualifiers: Urinary tract infection type: acute cystitis Hematuria presence: without hematuria Qualified Code(s): N30.00 - Acute cystitis without hematuria (3) Decubitus ulcer Assessment/Plan: STAGE IV, CHRONIC, DRAINING WOUND CULTURE-LACTOSE FERMENTING GRAM NEGATIVE BACILLI Qualifiers: Pressure ulcer location: buttock Assessment/Plan IV ABX UC AND WC- LACTOSE FERMENTING GRAM NEGATIVE BACILLI SEEN BY ID PENDING SENSITIVITY URINARY CATHETER CONTINUE TO MONITOR VITALS TYLENOL FOR FEVER OVER 100.0F NUTRITION CONSULT WOUND CONSULT CLEAN WOUND WITH DAIKIN'S SOLUTION, APPLY CLEAN TO DRY DRESSING
[2016-09-30] MEDS ORDERED: SODIUM HYPOCHLORITE 0.5% 473 ML- BULK BOTTLE TP SCH (10:30)
--- NOTE | 2016-09-30 13:49 | PN ---
Progress Note, Physician History of Present Illness: Lethargic today No acute distress Remains febrile BC (-) Urine c/s ESBL Wound c/s mixed organisms - Current Medication List Current Medications: Active Medications Acetaminophen (Tylenol Oral Solution -) 650 mg GT Q6H PRN PRN Reason: pain/fever Last Admin: 09/30/16 11:58 Dose: 650 mg Ascorbic Acid (Vitamin C Oral Solution -) 500 mg GT BID [facility] Last Admin: 09/30/16 09:34 Dose: 500 mg Doxazosin Mesylate (Cardura -) 2 mg GT HS [facility] Last Admin: 09/29/16 22:22 Dose: 2 mg Escitalopram Oxalate (Lexapro Oral Solution -) 10 mg GT DAILY [facility] Last Admin: 09/30/16 09:34 Dose: 10 mg Ferrous Sulfate (Feosol) 300 mg GT DAILY [facility] Last Admin: 09/30/16 09:30 Dose: 300 mg Tigecycline 50 mg/ Dextrose 100 mls @ 100 mls/hr IVPB BID [facility] PRN Reason: Protocol Last Admin: 09/30/16 09:30 Dose: 100 mls/hr Insulin Aspart (Novolog Vial Sliding Scale -) 1 vial SQ ACHS [facility] PRN Reason: Protocol Last Admin: 09/30/16 11:28 Dose: 6 units Insulin Detemir (Levemir Vial) 12 units SQ HS [facility] Last Admin: 09/29/16 22:22 Dose: 12 units Olanzapine (Zyprexa -) 5 mg GT HS [facility] Last Admin: 09/29/16 22:21 Dose: 5 mg Ranitidine HCl (Zantac Oral Solution -) 150 mg GT DAILY [facility] Last Admin: 09/30/16 09:31 Dose: 150 mg Sodium Hypochlorite (Dakin's Solution 0.5% (Full Strength) -) 1 applic TP DAILY [facility] - Objective Vital Signs: Vital Signs Temperature 102.3 F H 09/30/16 13:00 Pulse Rate 95 H 09/30/16 08:25 Respiratory Rate 18 09/30/16 08:25 Blood Pressure 108/56 09/30/16 08:25 O2 Sat by Pulse Oximetry (%) 95 09/29/16 21:00 Constitutional: Yes: No Distress, Other (lethargic) Eyes: Yes: Conjunctiva Clear Cardiovascular: Yes: Regular Rate and Rhythm, Murmur, S1, S2 Respiratory: Yes: CTA Bilaterally Gastrointestinal: Yes: Normal Bowel Sounds, Soft. No: Tenderness, Tenderness, Epigastrium Extremities: Yes: Other (S/P B/L BKA) Labs: CBC, BMP 09/30/16 06:00 09/30/16 06:00 INR, PTT INR 1.04 (0.82-1.09) 09/28/16 09:36 Assessment/Plan UTI/ Sepsis secondary to UTI Possible RLL pneumonia Hx CRE OBS Continue Tygacil Repeat BC for persistant fever Redose gentamicin Vancomycin 1gm IVPB x 1
--- NOTE | 2016-09-30 14:14 | PN ---
Progress Note (short form) - Note Progress Note: Vascular surgery: The patient is well known to the surgical service. 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 She has had this sacral ulcer since she was has been immobile. She was admitted to the hospital with sepsis currently having a fever to 102.3. The patient has a positive urine culture. I assisted the nursing staff in changing her dressing today. The patient has had 3 soft stools today, no liquid diarrhea. Vital Signs Period Temp Pulse Resp BP Sys/Chávez Pulse Ox Last 24 Hr 100.6 F-102.5 F 90-100 18-18 101-130/56-67 95 GEN: Awake, in NAD Sacum: stage 4 sacral ulcer 7x10cm with undermining edges 4cm(left side) and 6 cm(right side). Skin edges with necrotic tissue in several places approximately 1.5 to 2cm in length. At top of the wound the is small segment of palpable sacrum. 1x1cm. The tissue in the undermined areas has scant necrotic tissue. CBC, BMP 09/30/16 06:00 09/30/16 06:00 Microbiology 09/28/16 09:49 Urine - Urine Clean Catch Urine Culture - Final Klebsiella Pneumoniae - Esbl Escherichia Coli Esbl Mobile Ui Developer 09/28/16 08:47 Decubiti Wound Culture - Final Escherichia Coli Esbl Mobile Ui Developer Mr S Aureus Enterococcus Faecalis 09/28/16 09:36 Blood - Peripheral Venous Blood Culture - Preliminary NO GROWTH OBTAINED AFTER 48 HOURS, INCUBATION TO CONTINUE FOR 3 DAYS. 09/28/16 09:36 Blood - Peripheral Venous Blood Culture - Preliminary NO GROWTH OBTAINED AFTER 48 HOURS, INCUBATION TO CONTINUE FOR 3 DAYS. A/P: 81 yo female with h/o b/l BKA and sacral ulcer, admitted with sepsis recommend to continue with local wound care, change to santyl The base of the wound remains clean with a large opening. The edges are necrotic and undermined which could benefit from local debridment to help with daily care. D/w Dr. Rivers and he agrees. Her sacral wound is not the probable source of infection, the wound remains open with minimal underminng/nectroic edges.
[2016-09-30] MEDS ORDERED: GENTAMICIN INJECTION 200 MG in DEXTROSE 5%-WATER - 250 ML IVPB ONE (15:00)
[2016-09-30] MEDS ORDERED: VANCOMYCIN 1 GRAM (PRE-DOCKED) 250 ML IVPB ONE (15:00)
[2016-09-30] MEDS: OLANZapine 5 MG TABLET GT SCH (21:09)
[2016-09-30] MEDS: DOXAZOSIN MESYLATE 2 MG TABLET (FP) GT SCH (21:09)
[2016-09-30] MEDS: INSULIN DETEMIR 100 UNITS/ML MDV SQ SCH (21:12)
[2016-10-01] MEDS: ACETAMINOPHEN 650 MG/20.3 ML ORAL SOLUTION (CUPS) GT PRN ×2 (05:21→14:43)
[2016-10-01 06:06] LABS: SERUM IRON 18 ug/dL (27-139); TOTAL IRON BINDING CAPACITY 147 ug/dL (250-450); UIBC 129 ug/dL (118-369)
[2016-10-01] MEDS: INSULIN SLIDING SCALE (NOVOLOG) 1 VIAL SQ SCH ×4 (06:40→21:37)
--- NOTE | 2016-10-01 08:34 | PROC ---
Procedure Note Procedure: Consent for bedside debridement of stage 4 sacral ulcer in patient's paper chart Using scissors, necrotic tissue excised from the 12 o' clock and 3 o' clock positions. Minimal bleeding noted. Base of wound at superior aspect with dusky appearing muscle. Wound irrigated and repacked with santyl to borders, kerlix, abd pad. Patient tolerated procedure well.
[2016-10-01] MEDS ORDERED: PT OWN MED DRAWER 7, Y5N ONE ×2 (09:40→20:55)
--- NOTE | 2016-10-01 09:44 | PN ---
Progress Note, Physician Chief Complaint: UTI, INFECTED DECUBITUS ULCER History of Present Illness: Patient lethargic, non verbal -seen by ID, given vancomycin and gentamicin x 1, also on tigecycline -repeat BC -seen by Vascular, bedside debridement of Stage 4 ulcer done. -fever down with the cooling blanket and Tylenol - Current Medication List Current Medications: Active Medications Acetaminophen (Tylenol Oral Solution -) 650 mg GT Q6H PRN PRN Reason: pain/fever Last Admin: 10/01/16 05:21 Dose: 650 mg Ascorbic Acid (Vitamin C Oral Solution -) 500 mg GT BID [facility] Last Admin: 09/30/16 21:10 Dose: 500 mg Collagenase (Santyl -) 1 applic TP DAILY [facility] Doxazosin Mesylate (Cardura -) 2 mg GT HS [facility] Last Admin: 09/30/16 21:09 Dose: 2 mg Escitalopram Oxalate (Lexapro Oral Solution -) 10 mg GT DAILY [facility] Last Admin: 09/30/16 09:34 Dose: 10 mg Ferrous Sulfate (Feosol) 300 mg GT DAILY [facility] Last Admin: 09/30/16 09:30 Dose: 300 mg Tigecycline 50 mg/ Dextrose 100 mls @ 100 mls/hr IVPB BID [facility] PRN Reason: Protocol Last Admin: 09/30/16 21:10 Dose: 100 mls/hr Insulin Aspart (Novolog Vial Sliding Scale -) 1 vial SQ ACHS [facility] PRN Reason: Protocol Last Admin: 10/01/16 06:40 Dose: 6 units Insulin Detemir (Levemir Vial) 12 units SQ HS [facility] Last Admin: 09/30/16 21:12 Dose: 12 units Olanzapine (Zyprexa -) 5 mg GT HS [facility] Last Admin: 09/30/16 21:09 Dose: 5 mg Ranitidine HCl (Zantac Oral Solution -) 150 mg GT DAILY [facility] Last Admin: 09/30/16 09:31 Dose: 150 mg - Objective Vital Signs: Vital Signs Temperature 99.4 F 10/01/16 06:30 Pulse Rate 88 10/01/16 06:30 Respiratory Rate 22 10/01/16 06:30 Blood Pressure 96/53 10/01/16 06:30 O2 Sat by Pulse Oximetry (%) 100 09/30/16 21:00 Constitutional: Yes: Well Nourished, No Distress, Calm Cardiovascular: Yes: Regular Rate and Rhythm Respiratory: Yes: Regular Gastrointestinal: Yes: Normal Bowel Sounds Extremities: Yes: Amputation (BL BKA) Edema: No Integumentary: Yes: Pressure Ulcer (Stage 4 decubitus ulcer) Wound/Incision: Yes: Dressing Dry and Intact Neurological: Yes: Aphasia, Lethargy Labs: CBC, BMP 09/30/16 06:00 09/30/16 06:00 INR, PTT INR 1.04 (0.82-1.09) 09/28/16 09:36 Problem List - Problems (1) Systemic inflammatory response syndrome (SIRS) Code(s): R65.10 - SIRS OF NON-INFECTIOUS ORIGIN W/O ACUTE ORGAN DYSFUNCTION (2) UTI (urinary tract infection) Assessment/Plan: IV ABX-ON TIGECYCLINE SEEN BY ID COOLING BLANKET AND TYLENOL FOR FEVER OVER 100.0F Code(s): N39.0 - URINARY TRACT INFECTION, SITE NOT SPECIFIED Qualifiers: Urinary tract infection type: acute cystitis Hematuria presence: without hematuria Qualified Code(s): N30.00 - Acute cystitis without hematuria (3) Decubitus ulcer Assessment/Plan: STAGE IV, CHRONIC, Microbiology 09/28/16 09:36 Blood - Peripheral Venous Blood Culture - Preliminary NO GROWTH OBTAINED AFTER 72 HOURS, INCUBATION TO CONTINUE FOR 2 DAYS. 09/28/16 09:36 Blood - Peripheral Venous Blood Culture - Preliminary NO GROWTH OBTAINED AFTER 72 HOURS, INCUBATION TO CONTINUE FOR 2 DAYS. 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 -cooling blanket and Tylenol -repeat labs -d/c daikin's, use santyl as per vascular
[2016-10-01] MEDS: FERROUS SO4 300 MG/5 ML ORAL SOLN UNIT DOSE CUPS GT SCH (09:46)
[2016-10-01] MEDS: ASCORBIC ACID 500 MG/5 ML UNIT DOSE CUP GT SCH ×2 (09:46→21:37)
[2016-10-01] MEDS: RANITIDINE HCL 150 MG/10 ML UNIT-DOSE CUP GT SCH (09:46)
[2016-10-01] MEDS: ESCITALOPRAM OXALATE 5 MG/5 ML GT SCH (09:46)
[2016-10-01] MEDS: COLLAGENASE CLOSTRIDIUM HIST. 30 GRAMS TUBE TP SCH (09:47)
[2016-10-01 10:39] LABS: BASOPHIL 0.3 % (0-2.0); EOSINOPHIL 2.3 % (0-4.5); MCH 30.6 pg (25.7-33.7); MCHC 32.4 g/dl (32.0-36.0); MEAN CELL VOLUME 94.5 fl (80-96); MEAN PLT VOLUME 8.4 fl (7.5-11.1); NEUTROPHILS 69.3 % (42.8-82.8); PLATELET COUNT 373 K/MM3 (134-434); RDW 17.3 % (11.6-15.6)
[2016-10-01 11:04] LABS: ALBUMIN 1.7 g/dl (3.4-5.0); ANION GAP 5 (8-16); BILIRUBIN,TOTAL 0.5 mg/dL (0.2-1.0); CALCIUM 8.8 mg/dL (8.5-10.1); CO2 32 mmol/L (21-32); CREATININE 0.8 mg/dL (0.55-1.02); GLUCOSE,RANDOM 170 mg/dL (74-106); SGOT/AST 13 U/L (15-37); SGPT/ALT 16 U/L (12-78); TOT PROT 7.4 g/dl (6.4-8.2)
[2016-10-01 11:05] LABS: ALK PHOS 152 U/L (45-117)
[2016-10-01] MEDS: TIGECYCLINE 50 MG in DEXTROSE 5%-WATER - 100 ML IVPB SCH (11:22)
--- NOTE | 2016-10-01 12:43 | PN ---
Progress Note, Physician History of Present Illness: Awake, but not verbally responsive Temps down- afebrile - Current Medication List Current Medications: Active Medications Acetaminophen (Tylenol Oral Solution -) 650 mg GT Q6H PRN PRN Reason: pain/fever Last Admin: 10/01/16 05:21 Dose: 650 mg Ascorbic Acid (Vitamin C Oral Solution -) 500 mg GT BID [facility] Last Admin: 10/01/16 09:46 Dose: 500 mg Collagenase (Santyl -) 1 applic TP DAILY [facility] Last Admin: 10/01/16 09:47 Dose: 1 applic Doxazosin Mesylate (Cardura -) 2 mg GT HS [facility] Last Admin: 09/30/16 21:09 Dose: 2 mg Escitalopram Oxalate (Lexapro Oral Solution -) 10 mg GT DAILY [facility] Last Admin: 10/01/16 09:46 Dose: 10 mg Ferrous Sulfate (Feosol) 300 mg GT DAILY [facility] Last Admin: 10/01/16 09:46 Dose: 300 mg Insulin Aspart (Novolog Vial Sliding Scale -) 1 vial SQ ACHS [facility] PRN Reason: Protocol Last Admin: 10/01/16 11:22 Dose: 4 units Insulin Detemir (Levemir Vial) 12 units SQ HS [facility] Last Admin: 09/30/16 21:12 Dose: 12 units Olanzapine (Zyprexa -) 5 mg GT HS [facility] Last Admin: 09/30/16 21:09 Dose: 5 mg Ranitidine HCl (Zantac Oral Solution -) 150 mg GT DAILY [facility] Last Admin: 10/01/16 09:46 Dose: 150 mg - Objective Vital Signs: Vital Signs Temperature 98.9 F 10/01/16 10:00 Pulse Rate 92 H 10/01/16 10:00 Respiratory Rate 16 10/01/16 10:00 Blood Pressure 90/50 10/01/16 10:00 O2 Sat by Pulse Oximetry (%) 100 09/30/16 21:00 Constitutional: Yes: No Distress Eyes: Yes: Conjunctiva Clear Cardiovascular: Yes: Regular Rate and Rhythm, S1, S2 Respiratory: No: CTA Bilaterally Gastrointestinal: Yes: Normal Bowel Sounds, Soft. No: Tenderness Extremities: Yes: Other (S/P B/L BKA) Labs: CBC, BMP 10/01/16 10:10 10/01/16 10:10 INR, PTT INR 1.04 (0.82-1.09) 09/28/16 09:36 Assessment/Plan UTI/ Sepsis secondary to UTI ESBL Possible RLL pneumonia Hx CRE OBS Discontinue Tygacil Start Ertapenem Repeat BC for persistant fever Contact precautions
[2016-10-01] MEDS: ERTAPENEM SODIUM 1 GM in SODIUM CHLORIDE 50 ML IVPB SCH (14:43)
[2016-10-01] MEDS ORDERED: INSULIN (NOVOLOG) ASPART 100 UNITS/ML 10ML VIAL ONE (17:29)
[2016-10-01] MEDS: INSULIN DETEMIR 100 UNITS/ML MDV SQ SCH (21:36)
[2016-10-01] MEDS: OLANZapine 5 MG TABLET GT SCH (21:36)
[2016-10-01] MEDS: DOXAZOSIN MESYLATE 2 MG TABLET (FP) GT SCH (21:36)
[2016-10-02] MEDS: INSULIN SLIDING SCALE (NOVOLOG) 1 VIAL SQ SCH ×4 (06:03→21:30)
--- NOTE | 2016-10-02 10:16 | PN ---
Progress Note, Physician History of Present Illness: Lethargic Not verbally responsive Temp noted BC GPCCL - Current Medication List Current Medications: Active Medications Acetaminophen (Tylenol Oral Solution -) 650 mg GT Q6H PRN PRN Reason: pain/fever Last Admin: 10/01/16 14:43 Dose: 650 mg Ascorbic Acid (Vitamin C Oral Solution -) 500 mg GT BID [facility] Last Admin: 10/01/16 21:37 Dose: 500 mg Collagenase (Santyl -) 1 applic TP DAILY [facility] Last Admin: 10/01/16 09:47 Dose: 1 applic Doxazosin Mesylate (Cardura -) 2 mg GT HS [facility] Last Admin: 10/01/16 21:36 Dose: 2 mg Escitalopram Oxalate (Lexapro Oral Solution -) 10 mg GT DAILY [facility] Last Admin: 10/01/16 09:46 Dose: 10 mg Ferrous Sulfate (Feosol) 300 mg GT DAILY [facility] Last Admin: 10/01/16 09:46 Dose: 300 mg Ertapenem 1 gm/ Sodium (Chloride) 50 mls @ 50 mls/hr IVPB DAILY [facility] PRN Reason: Protocol Last Admin: 10/01/16 14:43 Dose: 50 mls/hr Insulin Aspart (Novolog Vial Sliding Scale -) 1 vial SQ ACHS [facility] PRN Reason: Protocol Last Admin: 10/02/16 06:03 Dose: Not Given Insulin Detemir (Levemir Vial) 12 units SQ HS [facility] Last Admin: 10/01/16 21:36 Dose: 12 units Olanzapine (Zyprexa -) 5 mg GT HS [facility] Last Admin: 10/01/16 21:36 Dose: 5 mg Ranitidine HCl (Zantac Oral Solution -) 150 mg GT DAILY [facility] Last Admin: 10/01/16 09:46 Dose: 150 mg - Objective Vital Signs: Vital Signs Temperature 98.6 F 10/02/16 06:00 Pulse Rate 86 10/02/16 06:00 Respiratory Rate 18 10/02/16 06:00 Blood Pressure 107/54 10/02/16 06:00 O2 Sat by Pulse Oximetry (%) 98 10/01/16 21:00 Constitutional: Yes: No Distress Eyes: Yes: Conjunctiva Clear Cardiovascular: Yes: Regular Rate and Rhythm, Murmur, S1, S2 Respiratory: Yes: CTA Bilaterally, Diminished Gastrointestinal: Yes: Normal Bowel Sounds, Soft. No: Tenderness Extremities: Yes: Other (S/P bilateral BKA) Integumentary: Yes: Other (+ sacral decubitus) Labs: CBC, BMP 10/01/16 10:10 10/01/16 10:10 INR, PTT INR 1.04 (0.82-1.09) 09/28/16 09:36 Assessment/Plan UTI/ Sepsis secondary to UTI ESBL + BC GPCCL ? significance Possible RLL pneumonia Hx CRE OBS Continue Ertapenem Await BC Vancomycin x 1 doser Contact precautions
[2016-10-02] MEDS ORDERED: VANCOMYCIN 1 GRAM (PRE-DOCKED) 250 ML IVPB ONE (10:30)
--- NOTE | 2016-10-02 10:41 | PN ---
Progress Note, Physician Chief Complaint: MY FIRST ENCOUNTER WITH THIS PATIENT FOR THIS ADMISSION EVENTS AND NOTES REVIEWED - Current Medication List Current Medications: Active Medications Acetaminophen (Tylenol Oral Solution -) 650 mg GT Q6H PRN PRN Reason: pain/fever Last Admin: 10/01/16 14:43 Dose: 650 mg Ascorbic Acid (Vitamin C Oral Solution -) [address] [facility] Last Admin: 10/01/16 21:37 Dose: 500 mg Collagenase (Santyl -) 1 applic TP DAILY [facility] Last Admin: 10/01/16 09:47 Dose: 1 applic Doxazosin Mesylate (Cardura -) [address] [facility] Last Admin: 10/01/16 21:36 Dose: 2 mg Escitalopram Oxalate (Lexapro Oral Solution -) [address] [facility] Last Admin: 10/01/16 09:46 Dose: 10 mg Ferrous Sulfate (Feosol) [address] [facility] Last Admin: 10/01/16 09:46 Dose: 300 mg Ertapenem 1 gm/ Sodium (Chloride) 50 mls @ 50 mls/hr IVPB DAILY [facility] PRN Reason: Protocol Last Admin: 10/01/16 14:43 Dose: 50 mls/hr Vancomycin HCl (Vancomycin (Pre-Docked)) 250 mls @ 250 mls/hr IVPB ONCE ONE Stop: 10/02/16 11:29 Insulin Aspart (Novolog Vial Sliding Scale -) [address] [facility] PRN Reason: Protocol Last Admin: 10/02/16 06:03 Dose: Not Given Insulin Detemir (Levemir Vial) [address] [facility] Last Admin: 10/01/16 21:36 Dose: 12 units Olanzapine (Zyprexa -) [address] [facility] Last Admin: 10/01/16 21:36 Dose: 5 mg Ranitidine HCl (Zantac Oral Solution -) [address] [facility] Last Admin: 10/01/16 09:46 Dose: 150 mg - Objective Vital Signs: Vital Signs Temperature 98.6 F 10/02/16 06:00 Pulse Rate 86 10/02/16 06:00 Respiratory Rate 18 10/02/16 06:00 Blood Pressure 107/54 10/02/16 06:00 O2 Sat by Pulse Oximetry (%) 98 10/01/16 21:00 Constitutional: Yes: Mild Distress Eyes: Yes: WNL HENT: Yes: WNL Neck: Yes: WNL Cardiovascular: Yes: Pulse Irregular Respiratory: Yes: WNL Gastrointestinal: Yes: WNL Genitourinary: Yes: Incontinence Musculoskeletal: Yes: Muscle Weakness Extremities: Yes: Amputation, Deformity Edema: No Peripheral Pulses WNL: No Integumentary: Yes: Pressure Ulcer, Venous Stasis Changes Wound/Incision: Yes: Dressing Dry and Intact, Unapproximated Neurological: Yes: Pre-Existing Deficit, Unresponsive, Unsteady Gait, Weakness ...Motor Strength: LLE, RLE Labs: CBC, BMP 10/01/16 10:10 10/01/16 10:10 INR, PTT INR 1.04 (0.82-1.09) 09/28/16 09:36 Problem List - Problems (1) Severe sepsis Code(s): A41.9 - SEPSIS, UNSPECIFIED ORGANISM R65.20 - SEVERE SEPSIS WITHOUT SEPTIC SHOCK (2) UTI (urinary tract infection) Code(s): N39.0 - URINARY TRACT INFECTION, SITE NOT SPECIFIED Qualifiers: Urinary tract infection type: acute cystitis Hematuria presence: without hematuria Qualified Code(s): N30.00 - Acute cystitis without hematuria (3) Anemia Code(s): D64.9 - ANEMIA, UNSPECIFIED Qualifiers: Anemia type: iron deficiency (4) Diabetes Code(s): E11.9 - TYPE 2 DIABETES MELLITUS WITHOUT COMPLICATIONS Qualifiers: Diabetes mellitus type: type 2 Diabetes mellitus complication detail: with other skin ulcer (5) Dysphagia Code(s): R13.10 - DYSPHAGIA, UNSPECIFIED (6) Fever and chills Code(s): R50.9 - FEVER, UNSPECIFIED (7) Pneumonia Code(s): J18.9 - PNEUMONIA, UNSPECIFIED ORGANISM Qualifiers: Pneumonia type: due to unspecified organism Laterality: left Lung location: lower lobe of lung Qualified Code(s): J18.1 - Lobar pneumonia, unspecified organism Assessment/Plan IV ABX CXR PULM EVAL ID CONSULT REVIEWE LABS CBC/CMP AM
[2016-10-02] MEDS: FERROUS SO4 300 MG/5 ML ORAL SOLN UNIT DOSE CUPS GT SCH (10:56)
[2016-10-02] MEDS: RANITIDINE HCL 150 MG/10 ML UNIT-DOSE CUP GT SCH (10:56)
[2016-10-02] MEDS: ASCORBIC ACID 500 MG/5 ML UNIT DOSE CUP GT SCH ×2 (10:57→21:28)
[2016-10-02] MEDS: ERTAPENEM SODIUM 1 GM in SODIUM CHLORIDE 50 ML IVPB SCH (10:57)
[2016-10-02] MEDS: ESCITALOPRAM OXALATE 5 MG/5 ML GT SCH (10:58)
[2016-10-02] MEDS ORDERED: INSULIN (NOVOLOG) ASPART 100 UNITS/ML 10ML VIAL ONE (11:38)
[2016-10-02] MEDS: COLLAGENASE CLOSTRIDIUM HIST. 30 GRAMS TUBE TP SCH (11:41)
[2016-10-02 14:00] LABS: ANION GAP 7 (8-16); CALCIUM 8.8 mg/dL (8.5-10.1); CO2 30 mmol/L (21-32); CREATININE 0.8 mg/dL (0.55-1.02); GLUCOSE,RANDOM 230 mg/dL (74-106)
[2016-10-02] MEDS ORDERED: PT OWN MED DRAWER 7, Y5N ONE (19:07)
[2016-10-02] MEDS: DOXAZOSIN MESYLATE 2 MG TABLET (FP) GT SCH (21:28)
[2016-10-02] MEDS: OLANZapine 5 MG TABLET GT SCH (21:28)
[2016-10-02] MEDS: INSULIN DETEMIR 100 UNITS/ML MDV SQ SCH (21:29)
[2016-10-03] MEDS: INSULIN SLIDING SCALE (NOVOLOG) 1 VIAL SQ SCH ×4 (06:31→21:31)
[2016-10-03 07:41] LABS: MCH 30.9 pg (25.7-33.7); MCHC 32.7 g/dl (32.0-36.0); MEAN CELL VOLUME 94.4 fl (80-96); MEAN PLT VOLUME 8.8 fl (7.5-11.1); PLATELET COUNT 397 K/MM3 (134-434); RDW 17.1 % (11.6-15.6); WHITE BLOOD COUNT 11.4 K/mm3 (4.0-10.0)
[2016-10-03 08:12] LABS: ALBUMIN 1.7 g/dl (3.4-5.0); ANION GAP 4 (8-16); BILIRUBIN,TOTAL 0.2 mg/dL (0.2-1.0); CALCIUM 8.7 mg/dL (8.5-10.1); CO2 32 mmol/L (21-32); CREATININE 0.8 mg/dL (0.55-1.02); GLUCOSE,RANDOM 159 mg/dL (74-106); SGOT/AST 14 U/L (15-37); SGPT/ALT 12 U/L (12-78); TOT PROT 7.4 g/dl (6.4-8.2)
[2016-10-03 08:14] LABS: ALK PHOS 148 U/L (45-117)
--- NOTE | 2016-10-03 08:30 | CON.NEP ---
Consult Consult Specialty:: Nephrology (Dr. Reese/Jose Juan) Referred by:: Dr. Varghese Reason for Consultation:: Hypernatremia, Azotemia - History of Present Illness Chief Complaint: Fever History of Present Illness: This is a 81 year old woman known to our service from prior admissions with PMhx of Hypernatremia, Hypertension, DM, HLD, GERD, PVD s/p b/l BKA who [place] and found to be hypernatremia with high BUN/Cr ratio. Pt is now afrbile s/p Abx. Pt also recived 1 unit prbc. - History Source History Provided By: Medical Record Limitations to Obtaining History: Language Barrier - Past Medical History PROCESS PUMPER: Yes: CVA, Dementia Cardio/Vascular: Yes: Aortic Stenosis, CHF, HTN, Hyperlipdemia Pulmonary: Yes: COPD Gastrointestinal: Yes: GERD Renal/: Yes: Renal Inusuff ...: No Endocrine: Yes: Diabetes Mellitus Dermatology: Yes: Other (PU) - Alcohol/Substance Use Hx Alcohol Use: No - Smoking History Smoking history: Unknown if ever smoked Have you smoked in the past 12 months: No Aproximately how many cigarettes per day: 0 - Social History Usual Living Arrangement: Snf History of Recent Travel: No Home Medications - Allergies Allergies/Adverse Reactions: Allergies Allergy/AdvReac Type Severity Reaction Status Date / Time No Known Drug Allergies Allergy Verified 09/28/16 09:35 - Home Medications Home Medications: Ambulatory Orders Aa/Weld Ivone,Whey/Arg/C/Zn/Cu [Lps Critical Care Liquid] 960 ml GT BID Acetaminophen Oral Solution [Tylenol Oral Solution -] 640 mg PO Q6H PRN Ascorbate Calcium [Vitamin C] 500 mg GT BID 09/28/16 Ascorbic Acid [Vitamin C] 500 mg GT DAILY 09/28/16 Cefepime HCl/Dextrose, Iso-Osm [Cefepime 1 gm Injection] 1 gm IV DAILY 09/28/16 Doxazosin Mesylate 2 mg GT HS 09/28/16 Escitalopram Oxalate [Lexapro Oral Solution -] 10 mg GT DAILY 09/28/16 Famotidine 20 mg GT DAILY 09/28/16 Fentanyl 1 each TD Q72H 09/28/16 Ferrous Sulfate *Liquid* [Feosol [ALCOHOL FREE]] 330 mg GT DAILY 09/28/16 Heparin - 5,000 unit SQ BID 09/28/16 Insulin Detemir [Levemir Flextouch] 10 unit SQ DAILY 09/28/16 Insulin Detemir [Levemir Flextouch] 12 unit SQ HS 09/28/16 Insulin Lispro [Humalog] 100 unit SQ TID 09/28/16 Lactobacillus Acidophilus [Acidophilus] 1 each GT BID 09/28/16 Mirtazapine [Remeron -] 30 mg GT HS 09/28/16 Olanzapine [Zyprexa] 5 mg GT HS 09/28/16 Silver Sulfadiaz/Foam Bandage [Allevyn Ag Gentle Dress 6"X6"] 1 each TP DAILY Sodium Chloride 0.45 % [Sodium Chloride] 75 ml IV DAILY 09/28/16 Vitamin B Comp W-C [Nephro-Rafael -] 1 tablet GT DAILY 09/28/16 Family Disease History - Family Disease History Family History: Unable to Obtain Review of Systems Unable to obtain ROS, reason: becausae of clinical stat Nephrology Consult - Height Height: 4 ft 6 in - Weight Weight: 100 lb 1.6 oz - BMI Body Mass Index (BMI): 24.1 - Lab Results CBC,BMP: CBC, BMP 10/03/16 06:05 10/03/16 06:05 Anion Gap: Anion Gap Anion Gap 4 (8-16) L 10/03/16 06:05 - Imaging Chest X-ray: Report Reviewed - Physical Examination Vital Signs: Vital Signs Temperature 99.8 F H 10/03/16 06:00 Pulse Rate 90 10/03/16 06:00 Respiratory Rate 18 10/03/16 06:00 Blood Pressure 115/64 10/03/16 06:00 O2 Sat by Pulse Oximetry (%) 99 10/02/16 21:00 Constitutional: Yes: No Distress, Other (awake but not verbal) Eyes: Yes: WNL HENT: Yes: Atraumatic, Normocephalic Cardiovascular: Yes: Regular Rate and Rhythm, Murmur (systolic), S1, S2. No: JVD Respiratory: Yes: Regular, CTA Bilaterally (anterior exam). No: Rales, Wheezes Gastrointestinal: Yes: Normal Bowel Sounds, Soft, Tenderness (mild) Renal/: No: Bladder Distention, Gonzales Present Extremities: Yes: Amputation (b/l aka). No: Cool, Cyanosis Edema: No Neurological: Yes: Alert, Other (non verbal) Problem List - Problems (1) Severe sepsis Code(s): A41.9 - SEPSIS, UNSPECIFIED ORGANISM R65.20 - SEVERE SEPSIS WITHOUT SEPTIC SHOCK (2) UTI (urinary tract infection) Code(s): N39.0 - URINARY TRACT INFECTION, SITE NOT SPECIFIED Qualifiers: Urinary tract infection type: acute cystitis Hematuria presence: without hematuria Qualified Code(s): N30.00 - Acute cystitis without hematuria (3) (HFpEF) heart failure with preserved ejection fraction Code(s): I50.9 - HEART FAILURE, UNSPECIFIED (4) ARF (acute renal failure) Code(s): N17.9 - ACUTE KIDNEY FAILURE, UNSPECIFIED (5) Altered mental status Code(s): R41.82 - ALTERED MENTAL STATUS, UNSPECIFIED (6) Anemia Code(s): D64.9 - ANEMIA, UNSPECIFIED Qualifiers: Anemia type: iron deficiency (7) Decubitus ulcer Code(s): L89.90 - PRESSURE ULCER OF UNSPECIFIED SITE, UNSPECIFIED STAGE Qualifiers: Pressure ulcer location: buttock (8) Dementia Code(s): F03.90 - UNSPECIFIED DEMENTIA WITHOUT BEHAVIORAL DISTURBANCE (9) Hypernatremia Code(s): E87.0 - HYPEROSMOLALITY AND HYPERNATREMIA (10) Sepsis Code(s): A41.9 - SEPSIS, UNSPECIFIED ORGANISM Qualifiers: (11) Azotemia Code(s): R79.89 - OTHER SPECIFIED ABNORMAL FINDINGS OF BLOOD CHEMISTRY (12) Proteinuria Code(s): R80.9 - PROTEINURIA, UNSPECIFIED (13) Leukocytosis Code(s): D72.829 - ELEVATED WHITE BLOOD CELL COUNT, UNSPECIFIED Assessment/Plan 81 year old woman known to our service from prior admissions with PMhx of Hypernatremia, Hypertension, DM, HLD, GERD, PVD s/p b/l BKA who [place] and found to be hypernatremia with high BUN/Cr ratio. #Hypernatremia secondary to increased water losses in setting of sepsis and inablity to increase water intake Water deficit is 1.62L Start D5 1/2 NS at 82cc per hour Trend Na daily #Azotemia in setting of sepsis trial of IVF x 24 hours FeNa was 1.46% - indeterminate avoid NSAIDs, IV Contrast if possible #Proteinuria in setting of UTI and GIANNI will need to repeat UPCR once UTI is treated #Sepsis/UTI/? PNA/Sacral Decubitis Ulcer continue Abx as per ID Wound care supportive care overall prognosis is guarded Thank you Will follow Vahid Manzano DO
[2016-10-03 08:31] VITALS: BMI 24.1
[2016-10-03] MEDS ORDERED: PT OWN MED DRAWER 7, Y5N ONE ×2 (09:59→20:43)
[2016-10-03] MEDS: FERROUS SO4 300 MG/5 ML ORAL SOLN UNIT DOSE CUPS GT SCH (10:11)
[2016-10-03] MEDS: ESCITALOPRAM OXALATE 5 MG/5 ML GT SCH (10:11)
[2016-10-03] MEDS: SODIUM CHLORIDE 0.45% 1,000 ML IV SCH ×2 (10:11→23:28)
[2016-10-03] MEDS: ERTAPENEM SODIUM 1 GM in SODIUM CHLORIDE 50 ML IVPB SCH (10:11)
--- NOTE | 2016-10-03 10:12 | PN ---
Progress Note, Physician Chief Complaint: AWAKE, APHASIA NO EVENTS OVERNIGHT - Current Medication List Current Medications: Active Medications Acetaminophen (Tylenol Oral Solution -) 650 mg GT Q6H PRN PRN Reason: pain/fever Last Admin: 10/01/16 14:43 Dose: 650 mg Ascorbic Acid (Vitamin C Oral Solution -) 500 mg GT BID [facility] Last Admin: 10/02/16 21:28 Dose: 500 mg Collagenase (Santyl -) 1 applic TP DAILY [facility] Last Admin: 10/02/16 11:41 Dose: 1 applic Doxazosin Mesylate (Cardura -) 2 mg GT HS [facility] Last Admin: 10/02/16 21:28 Dose: 2 mg Escitalopram Oxalate (Lexapro Oral Solution -) 10 mg GT DAILY [facility] Last Admin: 10/02/16 10:58 Dose: 10 mg Ferrous Sulfate (Feosol) 300 mg GT DAILY [facility] Last Admin: 10/02/16 10:56 Dose: 300 mg Ertapenem 1 gm/ Sodium (Chloride) 50 mls @ 50 mls/hr IVPB DAILY [facility] PRN Reason: Protocol Last Admin: 10/02/16 10:57 Dose: 50 mls/hr Sodium Chloride (1/2 Normal Saline) 1,000 mls @ 83 mls/hr IV ASDIR [facility] Insulin Aspart (Novolog Vial Sliding Scale -) 1 vial SQ ACHS [facility] PRN Reason: Protocol Last Admin: 10/03/16 06:31 Dose: Not Given Insulin Detemir (Levemir Vial) 12 units SQ HS [facility] Last Admin: 10/02/16 21:29 Dose: 12 units Olanzapine (Zyprexa -) 5 mg GT HS [facility] Last Admin: 10/02/16 21:28 Dose: 5 mg Ranitidine HCl (Zantac Oral Solution -) 150 mg GT DAILY [facility] Last Admin: 10/02/16 10:56 Dose: 150 mg - Objective Vital Signs: Vital Signs Temperature 99.8 F H 10/03/16 06:00 Pulse Rate 88 10/03/16 10:00 Respiratory Rate 20 10/03/16 10:00 Blood Pressure 120/70 10/03/16 10:00 O2 Sat by Pulse Oximetry (%) 99 10/02/16 21:00 Constitutional: Yes: Mild Distress Eyes: Yes: WNL HENT: Yes: WNL Neck: Yes: WNL Cardiovascular: Yes: WNL Respiratory: Yes: WNL Gastrointestinal: Yes: WNL Genitourinary: Yes: Hawkins Present Musculoskeletal: Yes: Muscle Weakness Extremities: Yes: Amputation, Other Edema: No Peripheral Pulses WNL: Yes Integumentary: Yes: Pressure Ulcer Wound/Incision: Yes: Dressing Dry and Intact Neurological: Yes: Pre-Existing Deficit ...Motor Strength: LLE, RLE Psychiatric: Yes: Other Labs: CBC, BMP 10/03/16 06:05 10/03/16 06:05 INR, PTT INR 1.04 (0.82-1.09) 09/28/16 09:36 Problem List - Problems (1) Severe sepsis Code(s): A41.9 - SEPSIS, UNSPECIFIED ORGANISM R65.20 - SEVERE SEPSIS WITHOUT SEPTIC SHOCK (2) UTI (urinary tract infection) Code(s): N39.0 - URINARY TRACT INFECTION, SITE NOT SPECIFIED Qualifiers: Urinary tract infection type: acute cystitis Hematuria presence: without hematuria Qualified Code(s): N30.00 - Acute cystitis without hematuria (3) Anemia Code(s): D64.9 - ANEMIA, UNSPECIFIED Qualifiers: Anemia type: iron deficiency (4) Diabetes Code(s): E11.9 - TYPE 2 DIABETES MELLITUS WITHOUT COMPLICATIONS Qualifiers: Diabetes mellitus type: type 2 Diabetes mellitus complication detail: with other skin ulcer (5) Dysphagia Code(s): R13.10 - DYSPHAGIA, UNSPECIFIED (6) Fever and chills Code(s): R50.9 - FEVER, UNSPECIFIED (7) Pneumonia Code(s): J18.9 - PNEUMONIA, UNSPECIFIED ORGANISM Qualifiers: Pneumonia type: due to unspecified organism Laterality: left Lung location: lower lobe of lung Qualified Code(s): J18.1 - Lobar pneumonia, unspecified organism Assessment/Plan IV ABX CXR PULM EVAL ID CONSULT [facility] LABS CBC/CMP AM [facility] MAINTAIN
[2016-10-03] MEDS: ASCORBIC ACID 500 MG/5 ML UNIT DOSE CUP GT SCH ×2 (10:13→21:11)
[2016-10-03] MEDS: RANITIDINE HCL 150 MG/10 ML UNIT-DOSE CUP GT SCH (10:13)
[2016-10-03] MEDS: COLLAGENASE CLOSTRIDIUM HIST. 30 GRAMS TUBE TP SCH (11:53)
[2016-10-03] MEDS: ACETAMINOPHEN 650 MG/20.3 ML ORAL SOLUTION (CUPS) GT PRN (11:54)
--- NOTE | 2016-10-03 12:10 | PN ---
Progress Note, Physician History of Present Illness: Awake, not verbally responsive Low grade fever BC no growth - Current Medication List Current Medications: Active Medications Acetaminophen (Tylenol Oral Solution -) 650 mg GT Q6H PRN PRN Reason: pain/fever Last Admin: 10/03/16 11:54 Dose: 650 mg Ascorbic Acid (Vitamin C Oral Solution -) 500 mg GT BID [facility] Last Admin: 10/03/16 10:13 Dose: 500 mg Collagenase (Santyl -) 1 applic TP DAILY [facility] Last Admin: 10/03/16 11:53 Dose: 1 applic Doxazosin Mesylate (Cardura -) 2 mg GT HS [facility] Last Admin: 10/02/16 21:28 Dose: 2 mg Escitalopram Oxalate (Lexapro Oral Solution -) 10 mg GT DAILY [facility] Last Admin: 10/03/16 10:11 Dose: 10 mg Ferrous Sulfate (Feosol) 300 mg GT DAILY [facility] Last Admin: 10/03/16 10:11 Dose: 300 mg Ertapenem 1 gm/ Sodium (Chloride) 50 mls @ 50 mls/hr IVPB DAILY [facility] PRN Reason: Protocol Last Admin: 10/03/16 10:11 Dose: 50 mls/hr Sodium Chloride (1/2 Normal Saline) 1,000 mls @ 83 mls/hr IV ASDIR [facility] Last Admin: 10/03/16 10:11 Dose: 83 mls/hr Insulin Aspart (Novolog Vial Sliding Scale -) 1 vial SQ ACHS [facility] PRN Reason: Protocol Last Admin: 10/03/16 11:53 Dose: 4 units Insulin Detemir (Levemir Vial) 12 units SQ HS [facility] Last Admin: 10/02/16 21:29 Dose: 12 units Olanzapine (Zyprexa -) 5 mg GT HS [facility] Last Admin: 10/02/16 21:28 Dose: 5 mg Ranitidine HCl (Zantac Oral Solution -) 150 mg GT DAILY [facility] Last Admin: 10/03/16 10:13 Dose: 150 mg - Objective Vital Signs: Vital Signs Temperature 100.8 F H 10/03/16 11:40 Pulse Rate 94 H 10/03/16 11:15 Respiratory Rate 20 10/03/16 10:00 Blood Pressure 120/70 10/03/16 10:00 O2 Sat by Pulse Oximetry (%) 98 10/03/16 11:15 Constitutional: Yes: No Distress Eyes: Yes: Conjunctiva Clear Cardiovascular: Yes: Regular Rate and Rhythm, S1, S2 Respiratory: Yes: Diminished Gastrointestinal: Yes: Normal Bowel Sounds, Soft. No: Tenderness Extremities: Yes: Other (bilateral BKA) Labs: CBC, BMP 10/03/16 06:05 10/03/16 06:05 INR, PTT INR 1.04 (0.82-1.09) 09/28/16 09:36 Assessment/Plan UTI/ Sepsis secondary to UTI ESBL + BC GPCCL ? significance probable contaminant Possible RLL pneumonia Hx CRE OBS Continue Ertapenem Contact precautions
[2016-10-03] MEDS: DOXAZOSIN MESYLATE 2 MG TABLET (FP) GT SCH (21:11)
[2016-10-03] MEDS: OLANZapine 5 MG TABLET GT SCH (21:11)
[2016-10-03] MEDS: INSULIN DETEMIR 100 UNITS/ML MDV SQ SCH (21:31)
[2016-10-04] MEDS: ACETAMINOPHEN 650 MG/20.3 ML ORAL SOLUTION (CUPS) GT PRN (02:25)
[2016-10-04] MEDS: INSULIN SLIDING SCALE (NOVOLOG) 1 VIAL SQ SCH ×4 (06:07→23:10)
[2016-10-04 08:29] LABS: ANION GAP 6 (8-16); CO2 31 mmol/L (21-32); CREATININE 0.7 mg/dL (0.55-1.02); GLUCOSE,RANDOM 172 mg/dL (74-106); MAGNESIUM 2.8 mg/dL (1.8-2.4)
[2016-10-04] MEDS ORDERED: PT OWN MED DRAWER 7, Y5N ONE ×2 (09:14→22:57)
--- NOTE | 2016-10-04 10:28 | PN ---
Progress Note, Physician History of Present Illness: Somewhat more awake Not verbally responsive Recurrent temp noted - Current Medication List Current Medications: Active Medications Acetaminophen (Tylenol Oral Solution -) 650 mg GT Q6H PRN PRN Reason: pain/fever Last Admin: 10/04/16 02:25 Dose: 650 mg Ascorbic Acid (Vitamin C Oral Solution -) 500 mg GT BID [facility] Last Admin: 10/03/16 21:11 Dose: 500 mg Collagenase (Santyl -) 1 applic TP DAILY [facility] Last Admin: 10/03/16 11:53 Dose: 1 applic Doxazosin Mesylate (Cardura -) 2 mg GT HS [facility] Last Admin: 10/03/16 21:11 Dose: 2 mg Escitalopram Oxalate (Lexapro Oral Solution -) 10 mg GT DAILY [facility] Last Admin: 10/03/16 10:11 Dose: 10 mg Ferrous Sulfate (Feosol) 300 mg GT DAILY [facility] Last Admin: 10/03/16 10:11 Dose: 300 mg Ertapenem 1 gm/ Sodium (Chloride) 50 mls @ 50 mls/hr IVPB DAILY [facility] PRN Reason: Protocol Last Admin: 10/03/16 10:11 Dose: 50 mls/hr Sodium Chloride (1/2 Normal Saline) 1,000 mls @ 83 mls/hr IV ASDIR [facility] Last Admin: 10/03/16 23:28 Dose: 83 mls/hr Insulin Aspart (Novolog Vial Sliding Scale -) 1 vial SQ ACHS [facility] PRN Reason: Protocol Last Admin: 10/04/16 06:07 Dose: Not Given Insulin Detemir (Levemir Vial) 12 units SQ HS [facility] Last Admin: 10/03/16 21:31 Dose: 12 units Olanzapine (Zyprexa -) 5 mg GT HS [facility] Last Admin: 10/03/16 21:11 Dose: 5 mg Ranitidine HCl (Zantac Oral Solution -) 150 mg GT DAILY [facility] Last Admin: 10/03/16 10:13 Dose: 150 mg - Objective Vital Signs: Vital Signs Temperature 99.4 F 10/04/16 06:30 Pulse Rate 89 10/04/16 06:30 Respiratory Rate 20 10/04/16 06:30 Blood Pressure 116/59 10/04/16 06:30 O2 Sat by Pulse Oximetry (%) 98 10/03/16 21:00 Constitutional: Yes: No Distress Eyes: Yes: Conjunctiva Clear Cardiovascular: Yes: Regular Rate and Rhythm, Murmur, S1, S2 Respiratory: Yes: Diminished Gastrointestinal: Yes: Normal Bowel Sounds, Soft. No: Tenderness Extremities: Yes: Other (S/P B/L BKA) Integumentary: Yes: Other (+ sacral decubitus ulcer, stage IV) Labs: CBC, BMP 10/03/16 06:05 10/04/16 06:10 INR, PTT INR 1.04 (0.82-1.09) 09/28/16 09:36 Assessment/Plan UTI/ Sepsis secondary to UTI ESBL + BC GPCCL - contaminant Possible RLL pneumonia Hx CRE OBS Continue Ertapenem Repeat BC, CXR for recurrent temp
[2016-10-04] MEDS: FERROUS SO4 300 MG/5 ML ORAL SOLN UNIT DOSE CUPS GT SCH (10:58)
[2016-10-04] MEDS: ERTAPENEM SODIUM 1 GM in SODIUM CHLORIDE 50 ML IVPB SCH (10:58)
[2016-10-04] MEDS: RANITIDINE HCL 150 MG/10 ML UNIT-DOSE CUP GT SCH (10:58)
[2016-10-04] MEDS: SODIUM CHLORIDE 0.45% 1,000 ML IV SCH ×2 (10:59→13:14)
[2016-10-04] MEDS: ESCITALOPRAM OXALATE 5 MG/5 ML GT SCH (10:59)
[2016-10-04] MEDS: COLLAGENASE CLOSTRIDIUM HIST. 30 GRAMS TUBE TP SCH (11:00)
[2016-10-04] MEDS: ASCORBIC ACID 500 MG/5 ML UNIT DOSE CUP GT SCH ×2 (11:01→23:10)
--- NOTE | 2016-10-04 11:27 | PN ---
Progress Note (short form) - Note Progress Note: Renal follow up for Azotemia, Hypernatremia Pt seen and examined at the bedside more awake today febrile overnight on IVF Vital Signs Temperature 99.4 F 10/04/16 06:30 Pulse Rate 89 10/04/16 06:30 Respiratory Rate 20 10/04/16 06:30 Blood Pressure 116/59 10/04/16 06:30 O2 Sat by Pulse Oximetry (%) 98 10/03/16 21:00 Intake & Output 10/01/16 10/02/16 10/03/16 10/04/16 23:59 23:59 23:59 23:59 Intake Total 770 1740 1450 1700 Output Total 400 1050 800 400 Balance 370 329 450 4023 Weight 113 lb 4.8 oz 114 lb 100 lb 1.6 oz 102 lb 12.8 oz Gen: NAD, awake CVS: RRR, No M/R Lungs: DEc BS at lung bases Abd: soft NT/ND Ext: b/l AKA CBC, BMP 10/03/16 06:05 10/04/16 06:10 Current Medications Acetaminophen (Tylenol Oral Solution -) 650 mg GT Q6H PRN PRN Reason: pain/fever Last Admin: 10/04/16 02:25 Dose: 650 mg Ascorbic Acid (Vitamin C Oral Solution -) 500 mg GT BID [facility] Last Admin: 10/04/16 11:01 Dose: 500 mg Collagenase (Santyl -) 1 applic TP DAILY [facility] Last Admin: 10/04/16 11:00 Dose: 1 applic Doxazosin Mesylate (Cardura -) 2 mg GT HS [facility] Last Admin: 10/03/16 21:11 Dose: 2 mg Escitalopram Oxalate (Lexapro Oral Solution -) 10 mg GT DAILY [facility] Last Admin: 10/04/16 10:59 Dose: 10 mg Ferrous Sulfate (Feosol) 300 mg GT DAILY [facility] Last Admin: 10/04/16 10:58 Dose: 300 mg Ertapenem 1 gm/ Sodium (Chloride) 50 mls @ 50 mls/hr IVPB DAILY [facility] PRN Reason: Protocol Last Admin: 10/04/16 10:58 Dose: 50 mls/hr Sodium Chloride (1/2 Normal Saline) 1,000 mls @ 83 mls/hr IV ASDIR [facility] Last Admin: 10/04/16 10:59 Dose: Not Given Insulin Aspart (Novolog Vial Sliding Scale -) 1 vial SQ ACHS [facility] PRN Reason: Protocol Last Admin: 10/04/16 06:07 Dose: Not Given Insulin Detemir (Levemir Vial) 12 units SQ HS [facility] Last Admin: 10/03/16 21:31 Dose: 12 units Olanzapine (Zyprexa -) 5 mg GT HS [facility] Last Admin: 10/03/16 21:11 Dose: 5 mg Ranitidine HCl (Zantac Oral Solution -) 150 mg GT DAILY [facility] Last Admin: 10/04/16 10:58 Dose: 150 mg 81 year old woman known to our service from prior admissions with PMhx of Hypernatremia, Hypertension, DM, HLD, GERD, PVD s/p b/l BKA who [place] with F[place] and found to be hypernatremia with high BUN/Cr ratio. #Hypernatremia secondary to increased water losses in setting of sepsis and inablity to increase water intake continue 1/2 NS (azotemia improved but persists) increase free water with tube feeds #Azotemia in setting of sepsis continue 1/2NS BUN improving #Proteinuria in setting of UTI and GIANNI will need to repeat UPCR once UTI is treated #Sepsis/UTI/? PNA/Sacral Decubitis Ulcer continue Abx as per ID Wound care supportive care overall prognosis is guarded Vahid Manzano DO Problem List - Problems (1) Severe sepsis Code(s): A41.9 - SEPSIS, UNSPECIFIED ORGANISM R65.20 - SEVERE SEPSIS WITHOUT SEPTIC SHOCK (2) UTI (urinary tract infection) Code(s): N39.0 - URINARY TRACT INFECTION, SITE NOT SPECIFIED Qualifiers: Urinary tract infection type: acute cystitis Hematuria presence: without hematuria Qualified Code(s): N30.00 - Acute cystitis without hematuria (3) (HFpEF) heart failure with preserved ejection fraction Code(s): I50.9 - HEART FAILURE, UNSPECIFIED (4) ARF (acute renal failure) Code(s): N17.9 - ACUTE KIDNEY FAILURE, UNSPECIFIED (5) Altered mental status Code(s): R41.82 - ALTERED MENTAL STATUS, UNSPECIFIED (6) Anemia Code(s): D64.9 - ANEMIA, UNSPECIFIED Qualifiers: Anemia type: iron deficiency (7) Decubitus ulcer Code(s): L89.90 - PRESSURE ULCER OF UNSPECIFIED SITE, UNSPECIFIED STAGE Qualifiers: Pressure ulcer location: buttock (8) Dementia Code(s): F03.90 - UNSPECIFIED DEMENTIA WITHOUT BEHAVIORAL DISTURBANCE (9) Hypernatremia Code(s): E87.0 - HYPEROSMOLALITY AND HYPERNATREMIA (10) Sepsis Code(s): A41.9 - SEPSIS, UNSPECIFIED ORGANISM Qualifiers: (11) Azotemia Code(s): R79.89 - OTHER SPECIFIED ABNORMAL FINDINGS OF BLOOD CHEMISTRY (12) Proteinuria Code(s): R80.9 - PROTEINURIA, UNSPECIFIED (13) Leukocytosis Code(s): D72.829 - ELEVATED WHITE BLOOD CELL COUNT, UNSPECIFIED
--- NOTE | 2016-10-04 13:05 | PN ---
Progress Note, Physician Chief Complaint: UTI, INFECTED DECUBITUS ULCER History of Present Illness: Patient lethargic, non verbal -seen by ID, on ertapenem -repeat BC -seen by Vascular -fever down with Tylenol - Current Medication List Current Medications: Active Medications Acetaminophen (Tylenol Oral Solution -) 650 mg GT Q6H PRN PRN Reason: pain/fever Last Admin: 10/04/16 02:25 Dose: 650 mg Ascorbic Acid (Vitamin C Oral Solution -) 500 mg GT BID [facility] Last Admin: 10/04/16 11:01 Dose: 500 mg Collagenase (Santyl -) 1 applic TP DAILY [facility] Last Admin: 10/04/16 11:00 Dose: 1 applic Doxazosin Mesylate (Cardura -) 2 mg GT HS [facility] Last Admin: 10/03/16 21:11 Dose: 2 mg Escitalopram Oxalate (Lexapro Oral Solution -) 10 mg GT DAILY [facility] Last Admin: 10/04/16 10:59 Dose: 10 mg Ferrous Sulfate (Feosol) 300 mg GT DAILY [facility] Last Admin: 10/04/16 10:58 Dose: 300 mg Ertapenem 1 gm/ Sodium (Chloride) 50 mls @ 50 mls/hr IVPB DAILY [facility] PRN Reason: Protocol Last Admin: 10/04/16 10:58 Dose: 50 mls/hr Sodium Chloride (1/2 Normal Saline) 1,000 mls @ 83 mls/hr IV ASDIR [facility] Last Admin: 10/04/16 10:59 Dose: Not Given Insulin Aspart (Novolog Vial Sliding Scale -) 1 vial SQ ACHS [facility] PRN Reason: Protocol Last Admin: 10/04/16 12:29 Dose: Not Given Insulin Detemir (Levemir Vial) 12 units SQ HS [facility] Last Admin: 10/03/16 21:31 Dose: 12 units Olanzapine (Zyprexa -) 5 mg GT HS [facility] Last Admin: 10/03/16 21:11 Dose: 5 mg Ranitidine HCl (Zantac Oral Solution -) 150 mg GT DAILY [facility] Last Admin: 10/04/16 10:58 Dose: 150 mg - Objective Vital Signs: Vital Signs Temperature 99.4 F 10/04/16 06:30 Pulse Rate 91 H 10/04/16 11:40 Respiratory Rate 20 10/04/16 06:30 Blood Pressure 116/59 10/04/16 06:30 O2 Sat by Pulse Oximetry (%) 95 10/04/16 11:40 Constitutional: Yes: Well Nourished, No Distress, Calm Cardiovascular: Yes: Regular Rate and Rhythm Respiratory: Yes: Regular Gastrointestinal: Yes: Normal Bowel Sounds Genitourinary: Yes: Gonzales Present Wound/Incision: Yes: Dressing Dry and Intact Neurological: Yes: Aphasia Labs: CBC, BMP 10/03/16 06:05 10/04/16 06:10 INR, PTT INR 1.04 (0.82-1.09) 09/28/16 09:36 Problem List - Problems (1) Systemic inflammatory response syndrome (SIRS) Assessment/Plan: -IV abx -repeat BC pending -on ertapenem -afebrile this AM Code(s): R65.10 - SIRS OF NON-INFECTIOUS ORIGIN W/O ACUTE ORGAN DYSFUNCTION (2) UTI (urinary tract infection) Assessment/Plan: Microbiology 09/30/16 15:00 Blood - Peripheral Venous Blood Culture - Preliminary NO GROWTH OBTAINED AFTER 72 HOURS, INCUBATION TO CONTINUE FOR 2 DAYS. 09/30/16 15:00 Blood - Peripheral Venous Blood Culture - Preliminary NO GROWTH OBTAINED AFTER 72 HOURS, INCUBATION TO CONTINUE FOR 2 DAYS. 09/28/16 09:36 Blood - Peripheral Venous Blood Culture - Final 09/28/16 09:36 Blood - Peripheral Venous Blood Culture - Final NO GROWTH AFTER 5 DAYS INCUBATION 09/28/16 08:47 Decubiti Gram Stain - Final 09/28/16 08:47 Decubiti Wound Culture - Final Escherichia Coli Esbl [employer] Mr S Aureus Enterococcus Faecalis 09/28/16 09:49 Urine - Urine Clean Catch Urine Culture - Final Klebsiella Pneumoniae - Esbl Escherichia Coli Esbl [employer] Code(s): N39.0 - URINARY TRACT INFECTION, SITE NOT SPECIFIED Qualifiers: Urinary tract infection type: acute cystitis Hematuria presence: without hematuria Qualified Code(s): N30.00 - Acute cystitis without hematuria (3) Decubitus ulcer Assessment/Plan: STAGE IV, CHRONIC, Qualifiers: Pressure ulcer location: buttock Assessment/Plan -IV abx -repeat BC pending -CXR pending -seen by Vascular, -cooling blanket and Tylenol -repeat labs
[2016-10-04] MEDS: INSULIN DETEMIR 100 UNITS/ML MDV SQ SCH (23:09)
[2016-10-04] MEDS: DOXAZOSIN MESYLATE 2 MG TABLET (FP) GT SCH (23:10)
[2016-10-04] MEDS: OLANZapine 5 MG TABLET GT SCH (23:10)
[2016-10-05] MEDS: INSULIN SLIDING SCALE (NOVOLOG) 1 VIAL SQ SCH ×4 (06:53→22:20)
[2016-10-05 07:58] LABS: MCH 30.8 pg (25.7-33.7); MCHC 32.6 g/dl (32.0-36.0); MEAN CELL VOLUME 94.5 fl (80-96); MEAN PLT VOLUME 8.7 fl (7.5-11.1); PLATELET COUNT 362 K/MM3 (134-434); RDW 16.4 % (11.6-15.6); WHITE BLOOD COUNT 9.4 K/mm3 (4.0-10.0)
[2016-10-05 08:11] LABS: ANION GAP 5 (8-16); CALCIUM 8.2 mg/dL (8.5-10.1); CO2 31 mmol/L (21-32); CREATININE 0.6 mg/dL (0.55-1.02); GLUCOSE,RANDOM 149 mg/dL (74-106); MAGNESIUM 2.5 mg/dL (1.8-2.4); PHOSPHOROUS 2.5 mg/dL (2.5-4.9)
[2016-10-05] MEDS: ERTAPENEM SODIUM 1 GM in SODIUM CHLORIDE 50 ML IVPB SCH (10:13)
[2016-10-05] MEDS: RANITIDINE HCL 150 MG/10 ML UNIT-DOSE CUP GT SCH (10:13)
[2016-10-05] MEDS: ESCITALOPRAM OXALATE 5 MG/5 ML GT SCH (10:13)
[2016-10-05] MEDS: FERROUS SO4 300 MG/5 ML ORAL SOLN UNIT DOSE CUPS GT SCH (10:13)
[2016-10-05] MEDS: ACETAMINOPHEN 650 MG/20.3 ML ORAL SOLUTION (CUPS) GT PRN (10:13)
[2016-10-05] MEDS: ASCORBIC ACID 500 MG/5 ML UNIT DOSE CUP GT SCH ×2 (10:14→22:20)
[2016-10-05] MEDS: COLLAGENASE CLOSTRIDIUM HIST. 30 GRAMS TUBE TP SCH (10:14)
--- NOTE | 2016-10-05 10:27 | PN ---
Progress Note, Physician Chief Complaint: UTI, INFECTED DECUBITUS ULCER History of Present Illness: Patient lethargic, non verbal -seen by ID, on ertapenem -repeat BC -seen by Vascular -fever down with Tylenol - Current Medication List Current Medications: Active Medications Acetaminophen (Tylenol Oral Solution -) 650 mg GT Q6H PRN PRN Reason: pain/fever Last Admin: 10/05/16 10:13 Dose: 650 mg Ascorbic Acid (Vitamin C Oral Solution -) 500 mg GT BID [facility] Last Admin: 10/05/16 10:14 Dose: 500 mg Collagenase (Santyl -) 1 applic TP DAILY [facility] Last Admin: 10/05/16 10:14 Dose: 1 applic Doxazosin Mesylate (Cardura -) 2 mg GT HS [facility] Last Admin: 10/04/16 23:10 Dose: 2 mg Escitalopram Oxalate (Lexapro Oral Solution -) 10 mg GT DAILY [facility] Last Admin: 10/05/16 10:13 Dose: 10 mg Ferrous Sulfate (Feosol) 300 mg GT DAILY [facility] Last Admin: 10/05/16 10:13 Dose: 300 mg Ertapenem 1 gm/ Sodium (Chloride) 50 mls @ 50 mls/hr IVPB DAILY [facility] PRN Reason: Protocol Last Admin: 10/05/16 10:13 Dose: 50 mls/hr Sodium Chloride (1/2 Normal Saline) 1,000 mls @ 83 mls/hr IV ASDIR [facility] Last Admin: 10/04/16 13:14 Dose: 83 mls/hr Insulin Aspart (Novolog Vial Sliding Scale -) 1 vial SQ ACHS [facility] PRN Reason: Protocol Last Admin: 10/05/16 06:53 Dose: Not Given Insulin Detemir (Levemir Vial) 12 units SQ HS [facility] Last Admin: 10/04/16 23:09 Dose: 12 units Olanzapine (Zyprexa -) 5 mg GT HS [facility] Last Admin: 10/04/16 23:10 Dose: 5 mg Ranitidine HCl (Zantac Oral Solution -) 150 mg GT DAILY [facility] Last Admin: 10/05/16 10:13 Dose: 150 mg - Objective Vital Signs: Vital Signs Temperature 98.5 F 10/05/16 09:23 Pulse Rate 92 H 10/05/16 09:23 Respiratory Rate 22 10/05/16 09:23 Blood Pressure 131/65 10/05/16 09:23 O2 Sat by Pulse Oximetry (%) 95 10/04/16 21:00 Constitutional: Yes: Well Nourished, No Distress, Calm Cardiovascular: Yes: Regular Rate and Rhythm Respiratory: Yes: Regular Gastrointestinal: Yes: Normal Bowel Sounds Labs: CBC, BMP 10/05/16 06:00 10/05/16 06:00 INR, PTT INR 1.04 (0.82-1.09) 09/28/16 09:36 Problem List - Problems (1) Systemic inflammatory response syndrome (SIRS) Assessment/Plan: -IV abx -repeat BC pending -on ertapenem -afebrile this AM -repeat CXR negative Code(s): R65.10 - SIRS OF NON-INFECTIOUS ORIGIN W/O ACUTE ORGAN DYSFUNCTION (2) UTI (urinary tract infection) Assessment/Plan: Microbiology 09/30/16 15:00 Blood - Peripheral Venous Blood Culture - Preliminary NO GROWTH OBTAINED AFTER 72 HOURS, INCUBATION TO CONTINUE FOR 2 DAYS. 09/30/16 15:00 Blood - Peripheral Venous Blood Culture - Preliminary NO GROWTH OBTAINED AFTER 72 HOURS, INCUBATION TO CONTINUE FOR 2 DAYS. 09/28/16 09:36 Blood - Peripheral Venous Blood Culture - Final 09/28/16 09:36 Blood - Peripheral Venous Blood Culture - Final NO GROWTH AFTER 5 DAYS INCUBATION 09/28/16 08:47 Decubiti Gram Stain - Final 09/28/16 08:47 Decubiti Wound Culture - Final Escherichia Coli Esbl [employer] Mounter Mr S Aureus Enterococcus Faecalis 09/28/16 09:49 Urine - Urine Clean Catch Urine Culture - Final Klebsiella Pneumoniae - Esbl Escherichia Coli Esbl [employer] Mounter Code(s): N39.0 - URINARY TRACT INFECTION, SITE NOT SPECIFIED Qualifiers: Urinary tract infection type: acute cystitis Hematuria presence: without hematuria Qualified Code(s): N30.00 - Acute cystitis without hematuria (3) Decubitus ulcer Assessment/Plan: STAGE IV, CHRONIC, Qualifiers: Pressure ulcer location: buttock Assessment/Plan -IV abx -repeat BC pending -CXR negative -seen by Vascular, -cooling blanket and Tylenol if fever over 100.0 F
[2016-10-05] MEDS: SODIUM CHLORIDE 0.45% 1,000 ML IV SCH (11:53)
[2016-10-05 13:08] LABS: PLATELET ESTIMATE ADEQUATE (NORMAL)
--- NOTE | 2016-10-05 13:53 | PN ---
Progress Note (short form) - Note Progress Note: Renal follow up for Azotemia, Hypernatremia Pt seen and examined at the bedside lethargic, non-verbal febrile yesterday afternoon on Tube feeds and IVF Vital Signs Temperature 98.5 F 10/05/16 09:23 Pulse Rate 92 H 10/05/16 09:23 Respiratory Rate 22 10/05/16 09:23 Blood Pressure 131/65 10/05/16 09:23 O2 Sat by Pulse Oximetry (%) 95 10/04/16 21:00 Intake & Output 10/02/16 10/03/16 10/04/16 10/05/16 23:59 23:59 23:59 23:59 Intake Total 1740 1450 3075 996 Output Total 1050 800 800 400 Balance 934 724 2083 596 Weight 114 lb 100 lb 1.6 oz 102 lb 12.8 oz 103 lb 2 oz Gen: NAD, awake CVS: RRR, No M/R Lungs: DEc BS at lung bases Abd: soft NT/ND Ext: b/l AKA CBC, BMP 10/05/16 06:00 10/05/16 06:00 Current Medications Acetaminophen (Tylenol Oral Solution -) 650 mg GT Q6H PRN PRN Reason: pain/fever Last Admin: 10/05/16 10:13 Dose: 650 mg Ascorbic Acid (Vitamin C Oral Solution -) 500 mg GT BID [facility] Last Admin: 10/05/16 10:14 Dose: 500 mg Collagenase (Santyl -) 1 applic TP DAILY [facility] Last Admin: 10/05/16 10:14 Dose: 1 applic Doxazosin Mesylate (Cardura -) 2 mg GT HS [facility] Last Admin: 10/04/16 23:10 Dose: 2 mg Escitalopram Oxalate (Lexapro Oral Solution -) 10 mg GT DAILY [facility] Last Admin: 10/05/16 10:13 Dose: 10 mg Ferrous Sulfate (Feosol) 300 mg GT DAILY [facility] Last Admin: 10/05/16 10:13 Dose: 300 mg Ertapenem 1 gm/ Sodium (Chloride) 50 mls @ 50 mls/hr IVPB DAILY [facility] PRN Reason: Protocol Last Admin: 10/05/16 10:13 Dose: 50 mls/hr Dextrose/Sodium Chloride (D5-1/3ns -) 500 mls @ 60 mls/hr IV ASDIR [facility] Insulin Aspart (Novolog Vial Sliding Scale -) 1 vial SQ ACHS [facility] PRN Reason: Protocol Last Admin: 10/05/16 12:11 Dose: 6 units Insulin Detemir (Levemir Vial) 12 units SQ HS [facility] Last Admin: 10/04/16 23:09 Dose: 12 units Olanzapine (Zyprexa -) 5 mg GT HS [facility] Last Admin: 10/04/16 23:10 Dose: 5 mg Ranitidine HCl (Zantac Oral Solution -) 150 mg GT DAILY [facility] Last Admin: 10/05/16 10:13 Dose: 150 mg 81 year old woman known to our service from prior admissions with PMhx of Hypernatremia, Hypertension, DM, HLD, GERD, PVD s/p b/l BKA who [place] with Fever and found to be hypernatremia with high BUN/Cr ratio. #Hypernatremia secondary to increased water losses in setting of sepsis and inability to increase water intake serum na is stable as pt was getting 1/2 NS will change IVF to 1/3 NS at 60cc per hour free water via GT increased as of this am trend Na daily #Azotemia in setting of sepsis improving, continue hypotonic IVF #Proteinuria in setting of UTI and GIANNI will need to repeat UPCR once UTI is treated #Sepsis/UTI/? PNA/Sacral Decubitis Ulcer continue Abx as per ID overall prognosis is guarded Vahid Manzano DO Problem List - Problems (1) Severe sepsis Code(s): A41.9 - SEPSIS, UNSPECIFIED ORGANISM R65.20 - SEVERE SEPSIS WITHOUT SEPTIC SHOCK (2) UTI (urinary tract infection) Code(s): N39.0 - URINARY TRACT INFECTION, SITE NOT SPECIFIED Qualifiers: Urinary tract infection type: acute cystitis Hematuria presence: without hematuria Qualified Code(s): N30.00 - Acute cystitis without hematuria (3) (HFpEF) heart failure with preserved ejection fraction Code(s): I50.9 - HEART FAILURE, UNSPECIFIED (4) ARF (acute renal failure) Code(s): N17.9 - ACUTE KIDNEY FAILURE, UNSPECIFIED (5) Altered mental status Code(s): R41.82 - ALTERED MENTAL STATUS, UNSPECIFIED (6) Anemia Code(s): D64.9 - ANEMIA, UNSPECIFIED Qualifiers: Anemia type: iron deficiency (7) Decubitus ulcer Code(s): L89.90 - PRESSURE ULCER OF UNSPECIFIED SITE, UNSPECIFIED STAGE Qualifiers: Pressure ulcer location: buttock (8) Dementia Code(s): F03.90 - UNSPECIFIED DEMENTIA WITHOUT BEHAVIORAL DISTURBANCE (9) Hypernatremia Code(s): E87.0 - HYPEROSMOLALITY AND HYPERNATREMIA (10) Sepsis Code(s): A41.9 - SEPSIS, UNSPECIFIED ORGANISM Qualifiers: (11) Azotemia Code(s): R79.89 - OTHER SPECIFIED ABNORMAL FINDINGS OF BLOOD CHEMISTRY (12) Proteinuria Code(s): R80.9 - PROTEINURIA, UNSPECIFIED (13) Leukocytosis Code(s): D72.829 - ELEVATED WHITE BLOOD CELL COUNT, UNSPECIFIED
[2016-10-05] MEDS: DEXTROSE 5%-1/3 NS - 500 ML IV SCH ×2 (14:08→22:19)
--- NOTE | 2016-10-05 15:57 | PN ---
Progress Note, Physician History of Present Illness: Awake, non verbal Temps down WBC WNL - Current Medication List Current Medications: Active Medications Acetaminophen (Tylenol Oral Solution -) 650 mg GT Q6H PRN PRN Reason: pain/fever Last Admin: 10/05/16 10:13 Dose: 650 mg Ascorbic Acid (Vitamin C Oral Solution -) 500 mg GT BID [facility] Last Admin: 10/05/16 10:14 Dose: 500 mg Collagenase (Santyl -) 1 applic TP DAILY [facility] Last Admin: 10/05/16 10:14 Dose: 1 applic Doxazosin Mesylate (Cardura -) 2 mg GT HS [facility] Last Admin: 10/04/16 23:10 Dose: 2 mg Escitalopram Oxalate (Lexapro Oral Solution -) 10 mg GT DAILY [facility] Last Admin: 10/05/16 10:13 Dose: 10 mg Ferrous Sulfate (Feosol) 300 mg GT DAILY [facility] Last Admin: 10/05/16 10:13 Dose: 300 mg Ertapenem 1 gm/ Sodium (Chloride) 50 mls @ 50 mls/hr IVPB DAILY [facility] PRN Reason: Protocol Last Admin: 10/05/16 10:13 Dose: 50 mls/hr Dextrose/Sodium Chloride (D5-1/3ns -) 500 mls @ 60 mls/hr IV ASDIR [facility] Last Admin: 10/05/16 14:08 Dose: 60 mls/hr Insulin Aspart (Novolog Vial Sliding Scale -) 1 vial SQ ACHS [facility] PRN Reason: Protocol Last Admin: 10/05/16 12:11 Dose: 6 units Insulin Detemir (Levemir Vial) 12 units SQ HS [facility] Last Admin: 10/04/16 23:09 Dose: 12 units Olanzapine (Zyprexa -) 5 mg GT HS [facility] Last Admin: 10/04/16 23:10 Dose: 5 mg Ranitidine HCl (Zantac Oral Solution -) 150 mg GT DAILY [facility] Last Admin: 10/05/16 10:13 Dose: 150 mg - Objective Vital Signs: Vital Signs Temperature 98.5 F 10/05/16 15:00 Pulse Rate 94 H 10/05/16 15:00 Respiratory Rate 17 10/05/16 15:00 Blood Pressure 128/63 10/05/16 15:00 O2 Sat by Pulse Oximetry (%) 95 10/05/16 09:00 Constitutional: Yes: No Distress, Pallor Eyes: Yes: Conjunctiva Clear Cardiovascular: Yes: Regular Rate and Rhythm, Murmur, S1, S2 Respiratory: Yes: CTA Bilaterally Gastrointestinal: Yes: Normal Bowel Sounds, Soft. No: Tenderness Extremities: Yes: Other (Bilateral BKA) Labs: CBC, BMP 10/05/16 06:00 10/05/16 06:00 INR, PTT INR 1.04 (0.82-1.09) 09/28/16 09:36 Assessment/Plan UTI/ Sepsis secondary to UTI ESBL + BC GPCCL - contaminant Possible RLL pneumonia Hx CRE OBS Continue Ertapenem Contact precautions
[2016-10-05] MEDS ORDERED: PT OWN MED DRAWER 7, Y5N ONE (21:57)
[2016-10-05] MEDS: OLANZapine 5 MG TABLET GT SCH (22:20)
[2016-10-05] MEDS: DOXAZOSIN MESYLATE 2 MG TABLET (FP) GT SCH (22:20)
[2016-10-05] MEDS: INSULIN DETEMIR 100 UNITS/ML MDV SQ SCH (22:20)
[2016-10-06] MEDS: INSULIN SLIDING SCALE (NOVOLOG) 1 VIAL SQ SCH ×4 (06:36→22:39)
[2016-10-06 08:49] LABS: CALCIUM 7.9 mg/dL (8.5-10.1)
[2016-10-06 08:53] LABS: ANION GAP 6 (8-16); CO2 30 mmol/L (21-32); CREATININE 0.5 mg/dL (0.55-1.02); GLUCOSE,RANDOM 132 mg/dL (74-106); MAGNESIUM 2.4 mg/dL (1.8-2.4); PHOSPHOROUS 2.4 mg/dL (2.5-4.9)
[2016-10-06] MEDS ORDERED: PT OWN MED DRAWER 7, Y5N ONE ×2 (10:11→21:02)
[2016-10-06] MEDS: ERTAPENEM SODIUM 1 GM in SODIUM CHLORIDE 50 ML IVPB SCH (10:41)
[2016-10-06] MEDS: FERROUS SO4 300 MG/5 ML ORAL SOLN UNIT DOSE CUPS GT SCH (10:41)
[2016-10-06] MEDS: RANITIDINE HCL 150 MG/10 ML UNIT-DOSE CUP GT SCH (10:42)
[2016-10-06] MEDS: ESCITALOPRAM OXALATE 5 MG/5 ML GT SCH (10:42)
[2016-10-06] MEDS: ASCORBIC ACID 500 MG/5 ML UNIT DOSE CUP GT SCH ×2 (10:42→22:42)
[2016-10-06] MEDS: COLLAGENASE CLOSTRIDIUM HIST. 30 GRAMS TUBE TP SCH (10:42)
[2016-10-06] MEDS: ACETAMINOPHEN 650 MG/20.3 ML ORAL SOLUTION (CUPS) GT PRN ×2 (10:43→22:48)
--- NOTE | 2016-10-06 11:04 | PN ---
Progress Note, Physician Chief Complaint: UTI, INFECTED DECUBITUS ULCER History of Present Illness: Patient lethargic, non verbal -seen by ID, on ertapenem -repeat BC -seen by Vascular -fever down with Tylenol - Current Medication List Current Medications: Active Medications Acetaminophen (Tylenol Oral Solution -) 650 mg GT Q6H PRN PRN Reason: pain/fever Last Admin: 10/06/16 10:43 Dose: 650 mg Ascorbic Acid (Vitamin C Oral Solution -) 500 mg GT BID [facility] Last Admin: 10/06/16 10:42 Dose: 500 mg Collagenase (Santyl -) 1 applic TP DAILY [facility] Last Admin: 10/06/16 10:42 Dose: 1 applic Doxazosin Mesylate (Cardura -) 2 mg GT HS [facility] Last Admin: 10/05/16 22:20 Dose: 2 mg Escitalopram Oxalate (Lexapro Oral Solution -) 10 mg GT DAILY [facility] Last Admin: 10/06/16 10:42 Dose: Not Given Ferrous Sulfate (Feosol) 300 mg GT DAILY [facility] Last Admin: 10/06/16 10:41 Dose: 300 mg Ertapenem 1 gm/ Sodium (Chloride) 50 mls @ 50 mls/hr IVPB DAILY [facility] PRN Reason: Protocol Last Admin: 10/06/16 10:41 Dose: 50 mls/hr Dextrose/Sodium Chloride (D5-1/3ns -) 500 mls @ 60 mls/hr IV ASDIR [facility] Last Admin: 10/05/16 22:19 Dose: 60 mls/hr Insulin Aspart (Novolog Vial Sliding Scale -) 1 vial SQ ACHS [facility] PRN Reason: Protocol Last Admin: 10/06/16 06:36 Dose: 4 units Insulin Detemir (Levemir Vial) 12 units SQ HS [facility] Last Admin: 10/05/16 22:20 Dose: 12 units Olanzapine (Zyprexa -) 5 mg GT HS [facility] Last Admin: 10/05/16 22:20 Dose: 5 mg Potassium Phos/Sodium Phos (Phos-Nak Packet -) 1 packet GT TID [facility] Stop: 10/08/16 06:01 Ranitidine HCl (Zantac Oral Solution -) 150 mg GT DAILY [facility] Last Admin: 10/06/16 10:42 Dose: 150 mg - Objective Vital Signs: Vital Signs Temperature 97.6 F 10/06/16 04:00 Pulse Rate 82 07/12/17 08:45 Respiratory Rate 18 10/06/16 08:46 Blood Pressure 98/60 10/06/16 08:45 O2 Sat by Pulse Oximetry (%) 95 10/05/16 20:32 Constitutional: Yes: Well Nourished, No Distress, Calm Cardiovascular: Yes: Regular Rate and Rhythm Respiratory: Yes: Regular Gastrointestinal: Yes: Normal Bowel Sounds Musculoskeletal: Yes: WNL Extremities: Yes: Amputation (BL BKA) Edema: No Wound/Incision: Yes: Dressing Dry and Intact Neurological: Yes: Aphasia Labs: CBC, BMP 10/05/16 06:00 10/06/16 07:00 INR, PTT INR 1.04 (0.82-1.09) 09/28/16 09:36 Problem List - Problems (1) Systemic inflammatory response syndrome (SIRS) Assessment/Plan: -IV abx as per ID -repeat BC preliminary negative -on ertapenem -afebrile this AM -repeat CXR negative -WBC normal Code(s): R65.10 - SIRS OF NON-INFECTIOUS ORIGIN W/O ACUTE ORGAN DYSFUNCTION (2) UTI (urinary tract infection) Assessment/Plan: Microbiology 09/30/16 15:00 Blood - Peripheral Venous Blood Culture - Final NO GROWTH AFTER 5 DAYS INCUBATION 09/30/16 15:00 Blood - Peripheral Venous Blood Culture - Final NO GROWTH AFTER 5 DAYS INCUBATION 10/04/16 10:50 Blood - Peripheral Venous Blood Culture - Preliminary NO GROWTH OBTAINED AFTER 24 HOURS, INCUBATION TO CONTINUE FOR 4 DAYS. 10/04/16 10:56 Blood - Peripheral Venous Blood Culture - Preliminary NO GROWTH OBTAINED AFTER 24 HOURS, INCUBATION TO CONTINUE FOR 4 DAYS. 09/28/16 09:36 Blood - Peripheral Venous Blood Culture - Final 09/28/16 09:36 Blood - Peripheral Venous Blood Culture - Final NO GROWTH AFTER 5 DAYS INCUBATION 09/28/16 08:47 Decubiti Gram Stain - Final 09/28/16 08:47 Decubiti Wound Culture - Final Escherichia Coli Esbl [employer] Mr S Aureus Enterococcus Faecalis 09/28/16 09:49 Urine - Urine Clean Catch Urine Culture - Final Klebsiella Pneumoniae - Esbl Escherichia Coli Esbl [employer] Code(s): N39.0 - URINARY TRACT INFECTION, SITE NOT SPECIFIED Qualifiers: Urinary tract infection type: acute cystitis Hematuria presence: without hematuria Qualified Code(s): N30.00 - Acute cystitis without hematuria (3) Decubitus ulcer Assessment/Plan: STAGE IV, CHRONIC, DEBRIDEMENT DONE THIS ADMISSION BY VASCULAR Qualifiers: Pressure ulcer location: buttock Assessment/Plan -IV abx as per ODID -repeat BC preliminary negative -CXR negative -seen by Vascular for debridement this admission -cooling blanket and Tylenol if fever over 100.0 F -GI prophylaxis
--- NOTE | 2016-10-06 11:40 | PN ---
Progress Note, Physician History of Present Illness: Not verbally responsive Temps down- afebrile WBC improved- WNL - Current Medication List Current Medications: Active Medications Acetaminophen (Tylenol Oral Solution -) 650 mg GT Q6H PRN PRN Reason: pain/fever Last Admin: 10/06/16 10:43 Dose: 650 mg Ascorbic Acid (Vitamin C Oral Solution -) 500 mg GT BID [facility] Last Admin: 10/06/16 10:42 Dose: 500 mg Collagenase (Santyl -) 1 applic TP DAILY [facility] Last Admin: 10/06/16 10:42 Dose: 1 applic Doxazosin Mesylate (Cardura -) 2 mg GT HS [facility] Last Admin: 10/05/16 22:20 Dose: 2 mg Escitalopram Oxalate (Lexapro Oral Solution -) 10 mg GT DAILY [facility] Last Admin: 10/06/16 10:42 Dose: Not Given Ferrous Sulfate (Feosol) 300 mg GT DAILY [facility] Last Admin: 10/06/16 10:41 Dose: 300 mg Ertapenem 1 gm/ Sodium (Chloride) 50 mls @ 50 mls/hr IVPB DAILY [facility] PRN Reason: Protocol Last Admin: 10/06/16 10:41 Dose: 50 mls/hr Dextrose/Sodium Chloride (D5-1/3ns -) 500 mls @ 60 mls/hr IV ASDIR [facility] Last Admin: 10/05/16 22:19 Dose: 60 mls/hr Insulin Aspart (Novolog Vial Sliding Scale -) 1 vial SQ ACHS [facility] PRN Reason: Protocol Last Admin: 10/06/16 06:36 Dose: 4 units Insulin Detemir (Levemir Vial) 12 units SQ HS [facility] Last Admin: 10/05/16 22:20 Dose: 12 units Olanzapine (Zyprexa -) 5 mg GT HS [facility] Last Admin: 10/05/16 22:20 Dose: 5 mg Potassium Phos/Sodium Phos (Phos-Nak Packet -) 1 packet GT TID [facility] Stop: 10/08/16 06:01 Ranitidine HCl (Zantac Oral Solution -) 150 mg GT DAILY [facility] Last Admin: 10/06/16 10:42 Dose: 150 mg - Objective Vital Signs: Vital Signs Temperature 97.6 F 10/06/16 04:00 Pulse Rate 82 10/06/16 08:45 Respiratory Rate 18 10/06/16 08:46 Blood Pressure 98/60 10/06/16 08:45 O2 Sat by Pulse Oximetry (%) 95 10/05/16 20:32 Constitutional: Yes: No Distress, Pallor Eyes: Yes: Conjunctiva Clear Cardiovascular: Yes: Regular Rate and Rhythm, S1, S2 Respiratory: Yes: Diminished Gastrointestinal: Yes: Normal Bowel Sounds, Soft. No: Tenderness Extremities: Yes: Other (s/p bilateral BKA) Labs: CBC, BMP 10/05/16 06:00 10/06/16 07:00 INR, PTT INR 1.04 (0.82-1.09) 09/28/16 09:36 Assessment/Plan UTI/ Sepsis secondary to UTI ESBL + BC GPCCL - contaminant Possible RLL pneumonia Hx CRE OBS Continue Ertapenem Day #6 Complete 7d course Contact precautions
[2016-10-06] MEDS: DEXTROSE 5%-1/3 NS - 500 ML IV SCH (18:40)
[2016-10-06] MEDS: NAPH,MB-DB/K PH,MBDB POWDER PACKET GT SCH ×2 (18:44→22:39)
[2016-10-06] MEDS: OLANZapine 5 MG TABLET GT SCH (22:37)
[2016-10-06] MEDS: INSULIN DETEMIR 100 UNITS/ML MDV SQ SCH (22:38)
[2016-10-06] MEDS: DOXAZOSIN MESYLATE 2 MG TABLET (FP) GT SCH (23:00)
[2016-10-07] MEDS: NAPH,MB-DB/K PH,MBDB POWDER PACKET GT SCH ×3 (06:12→21:01)
[2016-10-07] MEDS: INSULIN SLIDING SCALE (NOVOLOG) 1 VIAL SQ SCH ×4 (06:14→21:45)
[2016-10-07] MEDS ORDERED: PT OWN MED DRAWER 7, Y5N ONE ×2 (09:00→20:37)
--- NOTE | 2016-10-07 09:24 | PN ---
Progress Note, Physician Chief Complaint: UTI, INFECTED DECUBITUS ULCER History of Present Illness: Patient lethargic, non verbal -seen by ID, on ertapenem -repeat BC -seen by Vascular -fever down with Tylenol - Current Medication List Current Medications: Active Medications Acetaminophen (Tylenol Oral Solution -) 650 mg GT Q6H PRN PRN Reason: pain/fever Last Admin: 10/06/16 22:48 Dose: 650 mg Ascorbic Acid (Vitamin C Oral Solution -) 500 mg GT BID [facility] Last Admin: 10/06/16 22:42 Dose: 500 mg Collagenase (Santyl -) 1 applic TP DAILY [facility] Last Admin: 10/06/16 10:42 Dose: 1 applic Doxazosin Mesylate (Cardura -) 2 mg GT HS [facility] Last Admin: 10/06/16 23:00 Dose: 2 mg Escitalopram Oxalate (Lexapro Oral Solution -) 10 mg GT DAILY [facility] Last Admin: 10/06/16 10:42 Dose: Not Given Ferrous Sulfate (Feosol) 300 mg GT DAILY [facility] Last Admin: 10/06/16 10:41 Dose: 300 mg Ertapenem 1 gm/ Sodium (Chloride) 50 mls @ 50 mls/hr IVPB DAILY [facility] PRN Reason: Protocol Last Admin: 10/06/16 10:41 Dose: 50 mls/hr Dextrose/Sodium Chloride (D5-1/3ns -) 500 mls @ 60 mls/hr IV ASDIR [facility] Last Admin: 10/06/16 18:40 Dose: 60 mls/hr Insulin Aspart (Novolog Vial Sliding Scale -) 1 vial SQ ACHS [facility] PRN Reason: Protocol Last Admin: 10/07/16 06:14 Dose: Not Given Insulin Detemir (Levemir Vial) 12 units SQ HS [facility] Last Admin: 10/06/16 22:38 Dose: 12 units Olanzapine (Zyprexa -) 5 mg GT HS [facility] Last Admin: 10/06/16 22:37 Dose: 5 mg Potassium Phos/Sodium Phos (Phos-Nak Packet -) 1 packet GT TID [facility] Stop: 10/08/16 06:01 Last Admin: 10/07/16 06:12 Dose: 1 packet Ranitidine HCl (Zantac Oral Solution -) 150 mg GT DAILY [facility] Last Admin: 10/06/16 10:42 Dose: 150 mg - Objective Vital Signs: Vital Signs Temperature 97.2 F L 10/07/16 06:00 Pulse Rate 76 10/07/16 06:00 Respiratory Rate 20 10/07/16 06:00 Blood Pressure 115/61 10/07/16 06:00 O2 Sat by Pulse Oximetry (%) 95 10/05/16 20:32 Labs: CBC, BMP 10/05/16 06:00 10/06/16 07:00 INR, PTT INR 1.04 (0.82-1.09) 09/28/16 09:36 Problem List - Problems (1) Systemic inflammatory response syndrome (SIRS) Assessment/Plan: -IV abx as per ID -repeat BC preliminary negative -on ertapenem day# 7 -afebrile this AM -repeat CXR negative -WBC normal Code(s): R65.10 - SIRS OF NON-INFECTIOUS ORIGIN W/O ACUTE ORGAN DYSFUNCTION (2) UTI (urinary tract infection) Assessment/Plan: Microbiology 09/30/16 15:00 Blood - Peripheral Venous Blood Culture - Final NO GROWTH AFTER 5 DAYS INCUBATION 09/30/16 15:00 Blood - Peripheral Venous Blood Culture - Final NO GROWTH AFTER 5 DAYS INCUBATION 10/04/16 10:50 Blood - Peripheral Venous Blood Culture - Preliminary NO GROWTH OBTAINED AFTER 24 HOURS, INCUBATION TO CONTINUE FOR 4 DAYS. 10/04/16 10:56 Blood - Peripheral Venous Blood Culture - Preliminary NO GROWTH OBTAINED AFTER 24 HOURS, INCUBATION TO CONTINUE FOR 4 DAYS. 09/28/16 09:36 Blood - Peripheral Venous Blood Culture - Final 09/28/16 09:36 Blood - Peripheral Venous Blood Culture - Final NO GROWTH AFTER 5 DAYS INCUBATION 09/28/16 08:47 Decubiti Gram Stain - Final 09/28/16 08:47 Decubiti Wound Culture - Final Escherichia Coli Esbl [place] [employer] Mr S Aureus Enterococcus Faecalis 09/28/16 09:49 Urine - Urine Clean Catch Urine Culture - Final Klebsiella Pneumoniae - Esbl Escherichia Coli Esbl [place] Code(s): N39.0 - URINARY TRACT INFECTION, SITE NOT SPECIFIED Qualifiers: Urinary tract infection type: acute cystitis Hematuria presence: without hematuria Qualified Code(s): N30.00 - Acute cystitis without hematuria (3) Decubitus ulcer Assessment/Plan: STAGE IV, CHRONIC, DEBRIDEMENT DONE THIS ADMISSION BY VASCULAR Qualifiers: Pressure ulcer location: buttock Assessment/Plan -IV abx as per ID -repeat BC preliminary negative -CXR negative -seen by Vascular for debridement this admission -cooling blanket and Tylenol if fever over 100.0 F -GI prophylaxis
[2016-10-07] MEDS: ERTAPENEM SODIUM 1 GM in SODIUM CHLORIDE 50 ML IVPB SCH (10:43)
[2016-10-07] MEDS: FERROUS SO4 300 MG/5 ML ORAL SOLN UNIT DOSE CUPS GT SCH (10:44)
[2016-10-07] MEDS: RANITIDINE HCL 150 MG/10 ML UNIT-DOSE CUP GT SCH (10:44)
[2016-10-07] MEDS: ASCORBIC ACID 500 MG/5 ML UNIT DOSE CUP GT SCH ×2 (10:45→21:01)
[2016-10-07] MEDS: COLLAGENASE CLOSTRIDIUM HIST. 30 GRAMS TUBE TP SCH (10:45)
[2016-10-07] MEDS: ESCITALOPRAM OXALATE 5 MG/5 ML GT SCH (10:52)
[2016-10-07] MEDS: DEXTROSE 5%-1/3 NS - 500 ML IV SCH (15:13)
--- NOTE | 2016-10-07 15:33 | PN ---
Progress Note (short form) - Note Progress Note: Renal follow up for Azotemia, Hypernatremia Pt seen and examined at the bedside more awake no overnight events on tube feeds and IVF Vital Signs Temperature 98.8 F 10/07/16 15:27 Pulse Rate 89 10/07/16 15:27 Respiratory Rate 16 10/07/16 15:27 Blood Pressure 124/58 10/07/16 15:27 O2 Sat by Pulse Oximetry (%) 95 10/05/16 20:32 Intake & Output 10/04/16 10/05/16 10/06/16 10/07/16 23:59 23:59 23:59 23:59 Intake Total 3075 3236 3438 900 Output Total 830 793 6063 1000 Balance 2275 2436 2288 -100 Weight 102 lb 12.8 oz 103 lb 2 oz 107 lb 2 oz Gen: NAD, awake CVS: RRR, No M/R Lungs: DEc BS at lung bases Abd: soft NT/ND Ext: b/l AKA no new labs Current Medications Acetaminophen (Tylenol Oral Solution -) 650 mg GT Q6H PRN PRN Reason: pain/fever Last Admin: 10/06/16 22:48 Dose: 650 mg Ascorbic Acid (Vitamin C Oral Solution -) 500 mg GT BID [facility] Last Admin: 10/07/16 10:45 Dose: 500 mg Collagenase (Santyl -) 1 applic TP DAILY [facility] Last Admin: 10/07/16 10:45 Dose: 1 applic Doxazosin Mesylate (Cardura -) 2 mg GT HS [facility] Last Admin: 10/06/16 23:00 Dose: 2 mg Escitalopram Oxalate (Lexapro Oral Solution -) 10 mg GT DAILY [facility] Last Admin: 10/07/16 10:52 Dose: 10 mg Ferrous Sulfate (Feosol) 300 mg GT DAILY [facility] Last Admin: 10/07/16 10:44 Dose: 300 mg Insulin Aspart (Novolog Vial Sliding Scale -) 1 vial SQ ACHS [facility] PRN Reason: Protocol Last Admin: 10/07/16 12:48 Dose: Not Given Insulin Detemir (Levemir Vial) 12 units SQ HS [facility] Last Admin: 10/06/16 22:38 Dose: 12 units Olanzapine (Zyprexa -) 5 mg GT HS [facility] Last Admin: 10/06/16 22:37 Dose: 5 mg Potassium Phos/Sodium Phos (Phos-Nak Packet -) 1 packet GT TID [facility] Stop: 10/08/16 06:01 Last Admin: 10/07/16 15:14 Dose: 1 packet Ranitidine HCl (Zantac Oral Solution -) 150 mg GT DAILY [facility] Last Admin: 10/07/16 10:44 Dose: 150 mg 81 year old woman known to our service from prior admissions with PMhx of Hypernatremia, Hypertension, DM, HLD, GERD, PVD s/p b/l BKA who [place] with Fever and found to be hypernatremia with high BUN/Cr ratio. #Hypernatremia secondary to increased water losses in setting of sepsis and inability to increase water intake serum Na improved as of yesterday d/c IVF today continue free water with tube feeds at 50cc per hour trend Na daily #Azotemia in setting of sepsis improving no new labs today d/c ivf today trend BUN/Cr #Proteinuria in setting of UTI and GIANNI will need to repeat UPCR once UTI is treated #Sepsis/UTI/? PNA/Sacral Decubitis Ulcer management as per primary and ID Vahid Manzano DO Problem List - Problems (1) Severe sepsis Code(s): A41.9 - SEPSIS, UNSPECIFIED ORGANISM R65.20 - SEVERE SEPSIS WITHOUT SEPTIC SHOCK (2) UTI (urinary tract infection) Code(s): N39.0 - URINARY TRACT INFECTION, SITE NOT SPECIFIED Qualifiers: Urinary tract infection type: acute cystitis Hematuria presence: without hematuria Qualified Code(s): N30.00 - Acute cystitis without hematuria (3) (HFpEF) heart failure with preserved ejection fraction Code(s): I50.9 - HEART FAILURE, UNSPECIFIED (4) ARF (acute renal failure) Code(s): N17.9 - ACUTE KIDNEY FAILURE, UNSPECIFIED (5) Altered mental status Code(s): R41.82 - ALTERED MENTAL STATUS, UNSPECIFIED (6) Anemia Code(s): D64.9 - ANEMIA, UNSPECIFIED Qualifiers: Anemia type: iron deficiency (7) Decubitus ulcer Code(s): L89.90 - PRESSURE ULCER OF UNSPECIFIED SITE, UNSPECIFIED STAGE Qualifiers: Pressure ulcer location: buttock (8) Dementia Code(s): F03.90 - UNSPECIFIED DEMENTIA WITHOUT BEHAVIORAL DISTURBANCE (9) Hypernatremia Code(s): E87.0 - HYPEROSMOLALITY AND HYPERNATREMIA (10) Sepsis Code(s): A41.9 - SEPSIS, UNSPECIFIED ORGANISM Qualifiers: (11) Azotemia Code(s): R79.89 - OTHER SPECIFIED ABNORMAL FINDINGS OF BLOOD CHEMISTRY (12) Proteinuria Code(s): R80.9 - PROTEINURIA, UNSPECIFIED (13) Leukocytosis Code(s): D72.829 - ELEVATED WHITE BLOOD CELL COUNT, UNSPECIFIED
[2016-10-07] MEDS: ACETAMINOPHEN 650 MG/20.3 ML ORAL SOLUTION (CUPS) GT PRN (16:56)
[2016-10-07] MEDS: DOXAZOSIN MESYLATE 2 MG TABLET (FP) GT SCH (21:00)
[2016-10-07] MEDS: OLANZapine 5 MG TABLET GT SCH (21:00)
[2016-10-07] MEDS: INSULIN DETEMIR 100 UNITS/ML MDV SQ SCH (21:46)
[2016-10-08] MEDS: NAPH,MB-DB/K PH,MBDB POWDER PACKET GT SCH (06:05)
[2016-10-08] MEDS: INSULIN SLIDING SCALE (NOVOLOG) 1 VIAL SQ SCH ×3 (06:06→16:39)
[2016-10-08 07:55] LABS: ANION GAP 4 (8-16); CALCIUM 8.4 mg/dL (8.5-10.1); CO2 32 mmol/L (21-32); CREATININE 0.5 mg/dL (0.55-1.02); GLUCOSE,RANDOM 167 mg/dL (74-106); MAGNESIUM 2.2 mg/dL (1.8-2.4); PHOSPHOROUS 3.7 mg/dL (2.5-4.9)
[2016-10-08] MEDS ORDERED: IRON SUCROSE INJECTION 300 MG in SODIUM CHLORIDE 235 ML IVPB ONE (08:46)
--- NOTE | 2016-10-08 08:56 | PN ---
Progress Note, Physician Chief Complaint: UTI, INFECTED DECUBITUS ULCER History of Present Illness: Patient lethargic, non verbal -seen by ID, on ertapenem -repeat BC -seen by Vascular -fever down with Tylenol - Current Medication List Current Medications: Active Medications Acetaminophen (Tylenol Oral Solution -) 650 mg GT Q6H PRN PRN Reason: pain/fever Last Admin: 10/07/16 16:56 Dose: 650 mg Ascorbic Acid (Vitamin C Oral Solution -) 500 mg GT BID [facility] Last Admin: 10/07/16 21:01 Dose: 500 mg Collagenase (Santyl -) 1 applic TP DAILY [facility] Last Admin: 10/07/16 10:45 Dose: 1 applic Doxazosin Mesylate (Cardura -) 2 mg GT HS [facility] Last Admin: 10/07/16 21:00 Dose: 2 mg Escitalopram Oxalate (Lexapro Oral Solution -) 10 mg GT DAILY [facility] Last Admin: 10/07/16 10:52 Dose: 10 mg Ferrous Sulfate (Feosol) 300 mg GT DAILY [facility] Last Admin: 10/07/16 10:44 Dose: 300 mg Iron Sucrose 300 mg/ Sodium (Chloride) 250 mls @ 250 mls/hr IVPB ONCE ONE Stop: 10/08/16 09:45 Insulin Aspart (Novolog Vial Sliding Scale -) 1 vial SQ ACHS [facility] PRN Reason: Protocol Last Admin: 10/08/16 06:06 Dose: Not Given Insulin Detemir (Levemir Vial) 12 units SQ HS [facility] Last Admin: 10/07/16 21:46 Dose: 12 units Olanzapine (Zyprexa -) 5 mg GT HS [facility] Last Admin: 10/07/16 21:00 Dose: 5 mg Ranitidine HCl (Zantac Oral Solution -) 150 mg GT DAILY [facility] Last Admin: 10/07/16 10:44 Dose: 150 mg - Objective Vital Signs: Vital Signs Temperature 99.8 F H 10/08/16 05:00 Pulse Rate 92 H 10/08/16 05:00 Respiratory Rate 18 10/08/16 05:00 Blood Pressure 134/63 10/08/16 05:00 O2 Sat by Pulse Oximetry (%) 99 10/07/16 21:00 Labs: CBC, BMP 10/05/16 06:00 10/08/16 06:30 INR, PTT INR 1.04 (0.82-1.09) 09/28/16 09:36 Problem List - Problems (1) Systemic inflammatory response syndrome (SIRS) Assessment/Plan: -IV abx as per ID -repeat BC preliminary negative -on ertapenem day# 7 -afebrile this AM -repeat CXR negative -WBC normal Code(s): R65.10 - SIRS OF NON-INFECTIOUS ORIGIN W/O ACUTE ORGAN DYSFUNCTION (2) UTI (urinary tract infection) Assessment/Plan: Microbiology 09/30/16 15:00 Blood - Peripheral Venous Blood Culture - Final NO GROWTH AFTER 5 DAYS INCUBATION 09/30/16 15:00 Blood - Peripheral Venous Blood Culture - Final NO GROWTH AFTER 5 DAYS INCUBATION 10/04/16 10:50 Blood - Peripheral Venous Blood Culture - Preliminary NO GROWTH OBTAINED AFTER 24 HOURS, INCUBATION TO CONTINUE FOR 4 DAYS. 10/04/16 10:56 Blood - Peripheral Venous Blood Culture - Preliminary NO GROWTH OBTAINED AFTER 24 HOURS, INCUBATION TO CONTINUE FOR 4 DAYS. 09/28/16 09:36 Blood - Peripheral Venous Blood Culture - Final 09/28/16 09:36 Blood - Peripheral Venous Blood Culture - Final NO GROWTH AFTER 5 DAYS INCUBATION 09/28/16 08:47 Decubiti Gram Stain - Final 09/28/16 08:47 Decubiti Wound Culture - Final Escherichia Coli Esbl Gluten Settling Tender Mr S Aureus Enterococcus Faecalis 09/28/16 09:49 Urine - Urine Clean Catch Urine Culture - Final Klebsiella Pneumoniae - Esbl Escherichia Coli Esbl Gluten Settling Tender Code(s): N39.0 - URINARY TRACT INFECTION, SITE NOT SPECIFIED Qualifiers: Urinary tract infection type: acute cystitis Hematuria presence: without hematuria Qualified Code(s): N30.00 - Acute cystitis without hematuria (3) Decubitus ulcer Assessment/Plan: STAGE IV, CHRONIC, DEBRIDEMENT DONE THIS ADMISSION BY VASCULAR Qualifiers: Pressure ulcer location: buttock (4) Azotemia Assessment/Plan: -improved BUN -50 cc/hr free water through G tube Code(s): R79.89 - OTHER SPECIFIED ABNORMAL FINDINGS OF BLOOD CHEMISTRY (5) Proteinuria Code(s): R80.9 - PROTEINURIA, UNSPECIFIED Assessment/Plan -IVF discontinued -received day 7 of IV abx -no fever overnight -wbc improved -Urine protein/creatinine ratio -transfer to [facility] once stable and cleared by renal and ID
[2016-10-08] MEDS ORDERED: PT OWN MED DRAWER 7, Y5N ONE (08:57)
[2016-10-08] MEDS: FERROUS SO4 300 MG/5 ML ORAL SOLN UNIT DOSE CUPS GT SCH (09:03)
[2016-10-08] MEDS: ASCORBIC ACID 500 MG/5 ML UNIT DOSE CUP GT SCH (09:04)
[2016-10-08] MEDS: RANITIDINE HCL 150 MG/10 ML UNIT-DOSE CUP GT SCH (09:04)
[2016-10-08] MEDS: ESCITALOPRAM OXALATE 5 MG/5 ML GT SCH (09:05)
[2016-10-08] MEDS: ACETAMINOPHEN 650 MG/20.3 ML ORAL SOLUTION (CUPS) GT PRN (09:05)
[2016-10-08] MEDS: COLLAGENASE CLOSTRIDIUM HIST. 30 GRAMS TUBE TP SCH (10:23)
[2016-10-08 11:25] LABS: URINE CREATININE 20.8 mg/dL (20-320)
--- NOTE | 2016-10-08 14:59 | PN ---
Progress Note, Physician Chief Complaint: The patient seen in her bed Comfortable. Non Verbal. Maintains good urine output. - Current Medication List Current Medications: Active Medications Acetaminophen (Tylenol Oral Solution -) 650 mg GT Q6H PRN PRN Reason: pain/fever Last Admin: 10/08/16 09:05 Dose: 650 mg Ascorbic Acid (Vitamin C Oral Solution -) 500 mg GT BID [facility] Last Admin: 10/08/16 09:04 Dose: 500 mg Collagenase (Santyl -) 1 applic TP DAILY [facility] Last Admin: 10/08/16 10:23 Dose: 1 applic Doxazosin Mesylate (Cardura -) 2 mg GT HS [facility] Last Admin: 10/07/16 21:00 Dose: 2 mg Escitalopram Oxalate (Lexapro Oral Solution -) 10 mg GT DAILY [facility] Last Admin: 10/08/16 09:05 Dose: 10 mg Ferrous Sulfate (Feosol) 300 mg GT DAILY [facility] Last Admin: 10/08/16 09:03 Dose: 300 mg Insulin Aspart (Novolog Vial Sliding Scale -) 1 vial SQ ACHS [facility] PRN Reason: Protocol Last Admin: 10/08/16 11:30 Dose: Not Given Insulin Detemir (Levemir Vial) 12 units SQ HS [facility] Last Admin: 10/07/16 21:46 Dose: 12 units Olanzapine (Zyprexa -) 5 mg GT HS [facility] Last Admin: 10/07/16 21:00 Dose: 5 mg Ranitidine HCl (Zantac Oral Solution -) 150 mg GT DAILY [facility] Last Admin: 10/08/16 09:04 Dose: 150 mg - Objective Vital Signs: Vital Signs Temperature 98.7 F 10/08/16 10:00 Pulse Rate 89 10/08/16 11:34 Respiratory Rate 18 10/08/16 10:00 Blood Pressure 103/63 10/08/16 10:00 O2 Sat by Pulse Oximetry (%) 95 10/08/16 11:34 Constitutional: Yes: No Distress, Calm Eyes: Yes: Conjunctiva Clear HENT: Yes: Atraumatic Neck: Yes: Trachea Midline Cardiovascular: Yes: Regular Rate and Rhythm, S1, S2 Respiratory: Yes: Regular, Poor Air Entry. No: Rales, Rhonchi Gastrointestinal: Yes: Normal Bowel Sounds, Soft (Gtube in place. Feeding in progress.) Genitourinary: No: CVA Tenderness - Left, CVA Tenderness - Right Extremities: Yes: Amputation Edema: No Labs: CBC, BMP 10/05/16 06:00 10/08/16 06:30 INR, PTT INR 1.04 (0.82-1.09) 09/28/16 09:36 Assessment/Plan 9o y/o female well known to us, with h/o GIANNI, Hypernatremia, Aphasia, CVA, PVD and jonh. BKA. Maintains good urine output. Mild Hyperkalemia is noted, which in the presence of severe anemia should alert one to r/o GI blood loss. No indication for Kayexelate at this point. Will monitor the renal/ Electrolyte profile with you. Aysha Reese MD
--- NOTE | 2016-10-08 15:04 | DS ---
Physical Examination Vital Signs: Vital Signs Temperature 98.7 F 10/08/16 10:00 Pulse Rate 89 10/08/16 11:34 Respiratory Rate 18 10/08/16 10:00 Blood Pressure 103/63 10/08/16 10:00 O2 Sat by Pulse Oximetry (%) 95 10/08/16 11:34 Findings/Remarks: Patient is a 81 year old female with a recent history of antibiotic resistance UTI and an active stage 4 decubitus ulcer presented to [facility] ER from the [facility] with multiple criteria positive for SIRS (T 100.8, HR 100, RR 21, and WBC per alf of 15.82). Patient iwas receiving antibiotics (nitrofurantoin) for a MDR UTI and was reported by the alf to have had intermittent fever for several days. During the course of her hospitalization, her urine culture showed ESBL and she was treated with ertapenem. She completed 7 days of IV abx with improved WBC, afebrile. Microbiology 10/04/16 10:50 Blood - Peripheral Venous Blood Culture - Preliminary NO GROWTH OBTAINED AFTER 96 HOURS, INCUBATION TO CONTINUE FOR 1 DAYS. 10/04/16 10:56 Blood - Peripheral Venous Blood Culture - Preliminary NO GROWTH OBTAINED AFTER 96 HOURS, INCUBATION TO CONTINUE FOR 1 DAYS. 09/30/16 15:00 Blood - Peripheral Venous Blood Culture - Final NO GROWTH AFTER 5 DAYS INCUBATION 09/30/16 15:00 Blood - Peripheral Venous Blood Culture - Final NO GROWTH AFTER 5 DAYS INCUBATION 09/28/16 09:36 Blood - Peripheral Venous Blood Culture - Final 09/28/16 09:36 Blood - Peripheral Venous Blood Culture - Final NO GROWTH AFTER 5 DAYS INCUBATION 09/28/16 08:47 Decubiti Gram Stain - Final 09/28/16 08:47 Decubiti Wound Culture - Final Escherichia Coli Esbl Health Tech Mr S Aureus Enterococcus Faecalis 09/28/16 09:49 Urine - Urine Clean Catch Urine Culture - Final Klebsiella Pneumoniae - Esbl Escherichia Coli Esbl Health Tech Constitutional: Yes: Well Nourished, No Distress, Calm Cardiovascular: Yes: Regular Rate and Rhythm Respiratory: Yes: Regular Gastrointestinal: Yes: Normal Bowel Sounds Extremities: Yes: Amputation (BL BKA) Wound/Incision: Yes: Dressing Dry and Intact Neurological: Yes: Aphasia Labs: CBC, BMP 10/05/16 06:00 10/08/16 06:30 Discharge Summary Reason For Visit: UTI,SIRS,SEPSIS Current Active Problems Azotemia (Acute) Leukocytosis (Acute) Proteinuria (Acute) Severe sepsis (Acute) Systemic inflammatory response syndrome (SIRS) (Acute) UTI (urinary tract infection) (Acute) Condition: Fair - Instructions Referrals: Rashawn Garcia MD [Primary Care Provider] - Disposition: [facility] - Home Medications Comprehensive Discharge Medication List: Ambulatory Orders Aa/[place] Ivone,[place]/Arg/C/Zn/Cu [Lps Critical Care Liquid] 960 ml GT BID Acetaminophen Oral Solution [Tylenol 160mg/5mL Oral Solution -] 640 mg PO Q6H PRN 09/28/16 Ascorbate Calcium [Vitamin C] 500 mg GT BID 09/28/16 Ascorbic Acid [Vitamin C] 500 mg GT DAILY 09/28/16 Doxazosin Mesylate 2 mg GT HS 09/28/16 Escitalopram Oxalate [Lexapro 5mg/5mL Oral Solution -] 10 mg GT DAILY 09/28/16 Famotidine 20 mg GT DAILY 09/28/16 Fentanyl 1 each TD Q72H 09/28/16 Ferrous Sulfate *Liquid* [Feosol *Liquid*] 330 mg GT DAILY 09/28/16 Insulin Detemir [Levemir Flextouch] 12 unit SQ HS 09/28/16 Lactobacillus Acidophilus [Acidophilus] 1 each GT BID 09/28/16 Olanzapine [Zyprexa] 5 mg GT HS 09/28/16 Vitamin B Comp W-C [Nephro-Rafael -] 1 tablet GT DAILY 09/28/16 Collagenase Clostridium Hist. [Santyl -] 1 applic TP DAILY tube 10/08/16 Insulin Sliding Scale [Novolog Vial Sliding Scale -] 1 vial SQ ACHS units 10/08 Naph,Mb-Db/K pH,Mbdb [PHOS-NaK PACKET -] 1 packet GT TID packet 10/08/16
[2016-10-08 15:37] VITALS: BP 124/65; PULSE 87; TEMP 98.2
[2016-10-08] MEDS ORDERED: INSULIN (NOVOLOG) ASPART 100 UNITS/ML 10ML VIAL ONE (16:43)
== END 2016-10-08 18:45 | DRG 853 ==
LOC: JER 09:02 → JERBED 11:22 → J8W 14:07
PROVIDERS: ADMIT Family Medicine; ATTEND Family Medicine
PROC: 30233N1 Transfusion of Nonautologous Red Blood Cells into Peripheral Vein, Percutaneous Approach (ICD-10-PCS; 2016-09-30)
PROC: 0JB70ZZ Excision of Back Subcutaneous Tissue and Fascia, Open Approach (ICD-10-PCS; principal; 2016-10-01)
DX: A41.9 Sepsis, unspecified organism (principal); L89.154 Pressure ulcer of sacral region, stage 4; J18.1 Lobar pneumonia, unspecified organism; N39.0 Urinary tract infection, site not specified; E87.0 Hyperosmolality and hypernatremia; N17.9 Acute kidney failure, unspecified; I50.30 Unspecified diastolic (congestive) heart failure; F03.90 Unspecified dementia, unspecified severity, without behavioral disturbance, psychotic disturbance, mood disturbance, and anxiety; D64.9 Anemia, unspecified; E11.9 Type 2 diabetes mellitus without complications; Z79.4 Long term (current) use of insulin; F41.9 Anxiety disorder, unspecified; F32.9 Major depressive disorder, single episode, unspecified; E78.00 Pure hypercholesterolemia, unspecified; I35.0 Nonrheumatic aortic (valve) stenosis; B96.1 Klebsiella pneumoniae [K. pneumoniae] as the cause of diseases classified elsewhere; Z16.19 Resistance to other specified beta lactam antibiotics; Z16.11 Resistance to penicillins; Z89.512 Acquired absence of left leg below knee; Z89.511 Acquired absence of right leg below knee; R13.10 Dysphagia, unspecified; R65.20 Severe sepsis without septic shock; R80.9 Proteinuria, unspecified; I11.0 Hypertensive heart disease with heart failure; Z93.1 Gastrostomy status
CPT/HCPCS: 36415; 36430; 71010-TC; 80048; 80053; 81003; 81015; 82550; 82570; 82728; 82803; 82947; 83540; 83550; 83605; 83735; 83935; 84100; 84156; 84300; 84484; 85025; 85027; 85610; 85730; 86850; 86870; 86900; 86901; 86902; 86922; 87040; 87070; 87086; 87186; 87205; 93005; 93010; 99285-25; J1756; J3243; P9038; P9058

== ENCOUNTER 2016-10-25 05:11 | Emergency (ER) | payer OTHER ==
[2016-10-25 05:28] VITALS: TEMP 96.6; BMI 23.6
--- NOTE | 2016-10-25 05:33 | PDOC ---
History of Present Illness - General Chief Complaint: Injury Stated Complaint: HEAD INJURY Time Seen by Provider: 10/25/16 05:32 History Source: Care Provider Exam Limitations: Unresponsive - History of Present Illness Initial Comments: 10/25/16 05:33 Patient is an 81 female with significant PMH and multiple previous admissions [facility] from [facility] after reportedly falling from her bed and sticking her head on the bed railing. According to the floor RN at the rehab center patient struck her head behind the right ear and sustained a small abrasion. No other abnormalities or changes in behavior were noted. Patient is nonverbal at baseline. [facility]: [phone] Past History - Past Medical History Allergies/Adverse Reactions: Allergies Allergy/AdvReac Type Severity Reaction Status Date / Time No Known Drug Allergies Allergy Verified 10/25/16 05:28 Home Medications: Ambulatory Orders Aa/[place] Ivone,Whey/Arg/C/Zn/Cu [Lps Critical Care Liquid] 960 ml GT BID Acetaminophen Oral Solution [Tylenol 160mg/5mL Oral Solution -] 640 mg PO Q6H PRN 09/28/16 Ascorbate Calcium [Vitamin C] 500 mg GT BID 09/28/16 Ascorbic Acid [Vitamin C] 500 mg GT DAILY 09/28/16 Doxazosin Mesylate 2 mg GT HS 09/28/16 Escitalopram Oxalate [Lexapro 5mg/5mL Oral Solution -] 10 mg GT DAILY 09/28/16 Famotidine 20 mg GT DAILY 09/28/16 Fentanyl 1 each TD Q72H 09/28/16 Ferrous Sulfate *Liquid* [Feosol *Liquid*] 330 mg GT DAILY 09/28/16 Insulin Detemir [Levemir Flextouch] 12 unit SQ HS 09/28/16 Lactobacillus Acidophilus [Acidophilus] 1 each GT BID 09/28/16 Olanzapine [Zyprexa] 5 mg GT HS 09/28/16 Vitamin B Comp W-C [Nephro-Rafael -] 1 tablet GT DAILY 09/28/16 Collagenase Clostridium Hist. [Santyl -] 1 applic TP DAILY tube 10/08/16 Insulin Sliding Scale [Novolog Vial Sliding Scale -] 1 vial SQ ACHS units 10/08 Naph,Mb-Db/K pH,Mbdb [PHOS-NaK PACKET -] 1 packet GT TID packet 10/08/16 Anemia: Yes Asthma: No Cancer: No Cardiac Disorders: No CVA: Yes COPD: No CHF: Yes Dementia: Yes Diabetes: Yes (iddm) GI Disorders: Yes HTN: Yes Hypercholesterolemia: Yes Kidney Stones: No (acute kidney failure) Psychiatric Problems: Yes (anxeity,agitation,depression) Seizures: No Thyroid Disease: Yes - Surgical History Abdominal Surgery: Yes (GT PLACEMENT.) - Reproductive History Ectopic : No Polycystic Ovaries: No - Psycho/Social/Smoking Cessation Hx Anxiety: No Suicidal Ideation: No Smoking Status: No Smoking History: Never smoked Have you smoked in the past 12 months: No Number of Cigarettes Smoked Daily: 0 Information on smoking cessation initiated: No Hx Alcohol Use: No Drug/Substance Use Hx: No Substance Use Type: None Hx Substance Use Treatment: No Review of Systems - Review of Systems Able to Perform ROS?: No (Patient not verbal) Comments:: Patient reported to be at baseline by rehabilitation center personal. *Physical Exam - Vital Signs Last Vital Signs Temp Pulse Resp BP Pulse Ox 96.6 F L 92 H 16 110/79 97 10/25/16 05:22 10/25/16 05:22 10/25/16 05:22 10/25/16 05:22 10/25/16 05:22 - Physical Exam General Appearance: Yes: Nourished, Thin. No: Apparent Distress HEENT: positive: EOMI, GENIE, Normal ENT Inspection (no blood in auditory canals ), Normal Voice, TMs Normal, Other (NCAT, no bruising, small (5mm) round laceration to right occiput, no active bleeding). negative: Rhinorrhea Respiratory/Chest: positive: Lungs Clear, Normal Breath Sounds. negative: Respiratory Distress Cardiovascular: positive: Regular Rhythm, Regular Rate, Systolic Murmur (Grade IV). negative: JVD Vascular Pulses: Femoral (L): 3+, Carotid (R): 3+ Musculoskeletal: positive: Other (B/L BKA) Neurologic: positive: Respond to painful stimul, Other (Awake, Not following directions, able to follow movement with eyes, at reported baseline) ED Treatment Course - RADIOLOGY Radiograph Interpretation: 10/25/16 07:04 EXAM: CT brain without contrast IMAGES: 402 INDICATION: Trauma DATE OF SERVICE: 2016-10-25 06:21:51.0 COMPARISON: 10/03/13 FINDINGS: The ventricular system is midline and nondilated. Moderate involutional changes are noted, advanced since the prior exam. There is no bleed, mass, extra-axial fluid collection or mass effect. No skull fracture or skull lesion is identified. The visualized paranasal sinuses and mastoid air cells are clear. IMPRESSION: No evidence of acute pathology. Medical Decision Making - Medical Decision Making 10/25/16 05:33 81 year old with reported head trauma and a small abrasion that is not bleeding or needing of repair. Patient non-verbal at baseline. Ddx: ICH, laceration, concussion, neglect, abuse CT Head w/o contrast 10/25/16 07:05 IMPRESSION: No evidence of acute pathology. Patient good for discharge Rehabilitation center has requested evaluation for hip pathology Patient signed out to day resident (Dr. Jerman Coker) *DC/Admit/Observation/Transfer Diagnosis at time of Disposition: Head trauma Qualifiers: Encounter type: initial encounter Qualified Code(s): S09.90XA - Unspecified injury of head, initial encounter - Discharge Dispostion Disposition: CARE HOME FACILITY Condition at time of disposition: Stable Admit: No - Referrals Referrals: Rashawn Garcia MD [Primary Care Provider] - - Patient Instructions Additional Instructions: Thank you for trusting us with the care of Ms. Barnard. we hope you were happy with our care. We performed a CT of her head and did not find any acute pathology. There is a small laceration to the back of her head that did not require repair. It is important to keep this laceration clean as it heals and monitor for infection. If there are any signs of infection or you notice any abnormal neurological changes please send her back to the emergency department immediately. If she complaints of continuing hip pain, please return her to the ED for further evaluation. - Attestations Physician Attestion: 10/25/16 07:13 I, Dr. Aristides Rinaldi, attest that this document has been prepared under my direction and personally reviewed by me in its entirety. I further attest, that it accurately reflects all work, treatment, procedures and medical decision -making performed by me.
--- NOTE | 2016-10-25 05:42 | PDOC ---
Attending Attestation - Resident Resident Name: Aristides Rinaldi - HPI HPI: 10/25/16 07:03 Pt comes with fall at [place] and samll cut to back of head. Pt is at baseline mental status. - Physicial Exam PE: 10/25/16 07:04 Agree luisaoth resident - Medical Decision Making 10/25/16 07:04 CT head is normal: Patient Name: Bernie Barnard THIS IS A PRELIMINARYREPORT FROM IMAGING PC MAINTENANCE TECHNICIAN EXAM: CT brain without contrast IMAGES: 402 INDICATION: Trauma DATE OF SERVICE: 2016-10-25 06:21:51.0 COMPARISON: 10/03/13 FINDINGS: The ventricular system is midline and nondilated. Moderate involutional changes are noted, advanced since the prior exam. There is no bleed, mass, extra-axial fluid collection or mass effect. No skull fracture or skull lesion is identified. The visualized paranasal sinuses and mastoid air cells are clear. IMPRESSION: No evidence of acute pathology. THIS DOCUMENT HAS BEEN ELECTRONICALLY SIGNED Back to [place]. Small cut to back of head. Just apply bacitracin. Too small for a staple or suture.
[2016-10-25] MEDS ORDERED: BACITRACIN 15 GM TUBE TOPICAL OINTMENT TP ONE (07:06)
[2016-10-25] MEDS ORDERED: BACITRACIN 0.9 GM PACKET ONE (07:20)
--- NOTE | 2016-10-25 07:36 | PDOC ---
*Physical Exam - Vital Signs Last Vital Signs Temp Pulse Resp BP Pulse Ox 96.6 F L 92 H 16 110/79 97 10/25/16 05:22 10/25/16 05:22 10/25/16 05:22 10/25/16 05:22 10/25/16 05:22 Medical Decision Making - Medical Decision Making 10/25/16 07:35 Patient signed out by the night team (Dr. Rinaldi). half-way wanted XR of her hips so that has been ordered. Awaiting results. 10/25/16 08:47 XR of pelvis is read as no acute pathology. Patient has symmetric movement and no gross abnormalities in hip joint. *DC/Admit/Observation/Transfer Diagnosis at time of Disposition: Head trauma Qualifiers: Encounter type: initial encounter Qualified Code(s): S09.90XA - Unspecified injury of head, initial encounter - Discharge Dispostion Disposition: NURSING HOME FACILITY Condition at time of disposition: Stable Admit: No - Referrals Referrals: Rashawn Garcia MD [Primary Care Provider] - - Patient Instructions Additional Instructions: Thank you for trusting us with the care of Ms. Barnard. we hope you were happy with our care. We performed a CT of her head and did not find any acute pathology. There is a small laceration to the back of her head that did not require repair. It is important to keep this laceration clean as it heals and monitor for infection. If there are any signs of infection or you notice any abnormal neurological changes please send her back to the emergency department immediately. If she complaints of continuing hip pain, please return her to the ED for further evaluation. - Post Discharge Activity - Attestations Physician Attestion: 10/25/16 09:08 I, Dr. Jerman Coker, attest that this document has been prepared under my direction and personally reviewed by me in its entirety. I further attest, that it accurately reflects all work, treatment, procedures and medical decision -making performed by me.
[2016-10-25 10:36] VITALS: BP 144/52; PULSE 84
== END 2016-10-25 10:20 ==
LOC: JER 05:11
DX: S00.01XA Abrasion of scalp, initial encounter (principal); W06.XXXA Fall from bed, initial encounter; Y93.89 Activity, other specified; Y92.122 Bedroom in nursing home as the place of occurrence of the external cause; I10 Essential (primary) hypertension; E11.9 Type 2 diabetes mellitus without complications; Z79.4 Long term (current) use of insulin; E78.00 Pure hypercholesterolemia, unspecified; F41.8 Other specified anxiety disorders; F03.91 Unspecified dementia, unspecified severity, with behavioral disturbance; E07.9 Disorder of thyroid, unspecified; D64.9 Anemia, unspecified; N17.9 Acute kidney failure, unspecified; Z86.73 Personal history of transient ischemic attack (TIA), and cerebral infarction without residual deficits; Z93.1 Gastrostomy status
CPT/HCPCS: 70450-TC; 72170-TC; 99282-25

== ENCOUNTER 2016-10-28 01:52 | Inpatient (IN) | payer OTHER ==
--- NOTE | 2016-10-28 02:17 | PDOC ---
History of Present Illness - General Chief Complaint: Blood Transfusion Stated Complaint: ABNORMAL LABS Time Seen by Provider: 10/28/16 02:00 - History of Present Illness Initial Comments: 10/28/16 02:30 81-year-old female with history of acute kidney failure, hyperglycemia, diabetes , hypertension, COPD, MRSA, C. difficile, pressure ulcer, recent sepsis, bilateral BKA, G-tube, anemia sent to the emergency room for abnormal lab results. Past History - Past Medical History Allergies/Adverse Reactions: Allergies Allergy/AdvReac Type Severity Reaction Status Date / Time No Known Drug Allergies Allergy Verified 10/28/16 02:18 Home Medications: Ambulatory Orders Aa/[place] Ivone,Whey/Arg/C/Zn/Cu [Lps Critical Care Liquid] 960 ml GT BID Acetaminophen Oral Solution [Tylenol 160mg/5mL Oral Solution -] 640 mg PO Q6H PRN 09/28/16 Ascorbic Acid [Vitamin C] 500 mg GT TID 09/28/16 Doxazosin Mesylate 2 mg GT HS 09/28/16 Escitalopram Oxalate [Lexapro 5mg/5mL Oral Solution -] 10 mg GT DAILY 09/28/16 Famotidine 20 mg GT DAILY 09/28/16 Fentanyl 1 each TD Q72H 09/28/16 Ferrous Sulfate *Liquid* [Feosol *Liquid*] 330 mg GT TID 09/28/16 Insulin Detemir [Levemir Flextouch] 12 unit SQ HS 09/28/16 Lactobacillus Acidophilus [Acidophilus] 1 each GT BID 09/28/16 Olanzapine [Zyprexa] 5 mg GT HS 09/28/16 Vitamin B Comp W-C [Nephro-Rafael -] 1 tablet GT DAILY 09/28/16 Collagenase Clostridium Hist. [Santyl -] 1 applic TP DAILY tube 10/08/16 Insulin Sliding Scale [Novolog Vial Sliding Scale -] 1 vial SQ ACHS units 10/08 Naph,Mb-Db/K pH,Mbdb [PHOS-NaK PACKET -] 1 packet GT TID packet 10/08/16 Heparin - 5,000 units IJ BID 10/28/16 Anemia: Yes Asthma: No Cancer: No Cardiac Disorders: No CVA: Yes COPD: No CHF: Yes Dementia: Yes Diabetes: Yes (iddm) GI Disorders: Yes HTN: Yes Hypercholesterolemia: Yes Kidney Stones: No (acute kidney failure) Psychiatric Problems: Yes (anxeity,agitation,depression) Seizures: No Thyroid Disease: Yes - Surgical History Abdominal Surgery: Yes (GT PLACEMENT.) - Reproductive History Ectopic : No Polycystic Ovaries: No - Psycho/Social/Smoking Cessation Hx Anxiety: No Suicidal Ideation: No Smoking Status: No Smoking History: Never smoked Have you smoked in the past 12 months: No Number of Cigarettes Smoked Daily: 0 Hx Alcohol Use: No Drug/Substance Use Hx: No Substance Use Type: None Hx Substance Use Treatment: No Review of Systems - Review of Systems Able to Perform ROS?: Yes Is the patient limited Nepali proficient: No Constitutional: No: Symptoms Reported, See HPI, Chills, Diaphoresis, Fever, Loss of Appetite, Malaise, Night Sweats, Weakness, Weight Stable, Unintentional Wgt. Loss, Unexplained wgt Loss, Other *Physical Exam - Vital Signs 10/28/16 02:31 Last Vital Signs Temp Pulse Resp BP Pulse Ox 99.9 F H 80 18 109/57 97 10/28/16 02:07 10/28/16 02:07 10/28/16 02:07 10/28/16 02:07 10/28/16 02:07 - Physical Exam General Appearance: Yes: Appropriately Dressed Respiratory/Chest: positive: Lungs Clear, Normal Breath Sounds Cardiovascular: positive: Regular Rhythm, Regular Rate, Murmur Gastrointestinal/Abdominal: positive: Normal Bowel Sounds, Soft Rectal Exam: positive: other (dark tarry stool, pressure ulcer stage IV) Musculoskeletal: positive: Normal Inspection Extremity: positive: Normal Capillary Refill, Normal Inspection, Normal Range of Motion, Other (B/L bka) Integumentary: positive: Normal Color, Dry, Warm, Pale Neurologic: positive: Fully Oriented, Alert, Normal Mood/Affect Heart Score/ECG Review - ECG Intrepretation Rhythm: Regular Rhythm Comment:: 10/28/16 04:45 79: siNUS RHYTHM WITH SHORT HI. ED Treatment Course - LABORATORY CBC & Chemistry Diagram: 10/28/16 02:18 10/28/16 02:18 Medical Decision Making - Medical Decision Making 10/28/16 04:43 a: aNEMIA p: HGB: 7.1 10/28/16 05:53 patient signed out to Dr. mcmullen for obs admission *DC/Admit/Observation/Transfer Diagnosis at time of Disposition: Anemia Qualifiers: Anemia type: iron deficiency Iron deficiency anemia type: unspecified iron deficiency Qualified Code(s): D50.9 - Iron deficiency anemia, unspecified - Discharge Dispostion Admit: Yes - Referrals Referrals: Rashawn Garcia MD [Primary Care Provider] -
[2016-10-28 02:39] LABS: BASOPHIL 0.7 % (0-2.0); EOSINOPHIL 3.4 % (0-4.5); MCH 30.9 pg (25.7-33.7); MCHC 31.4 g/dl (32.0-36.0); MEAN CELL VOLUME 98.3 fl (80-96); MEAN PLT VOLUME 9.2 fl (7.5-11.1); NEUTROPHILS 53.4 % (42.8-82.8); PLATELET COUNT 368 K/MM3 (134-434); RDW 18.8 % (11.6-15.6); WHITE BLOOD COUNT 8.9 K/mm3 (4.0-10.0)
[2016-10-28 03:00] LABS: ALBUMIN 1.7 g/dl (3.4-5.0); ANION GAP 7 (8-16); BILIRUBIN,TOTAL 0.2 mg/dL (0.2-1.0); CALCIUM 8.2 mg/dL (8.5-10.1); CO2 28 mmol/L (21-32); CREATININE 0.9 mg/dL (0.55-1.02); GLUCOSE,RANDOM 270 mg/dL (74-106); SGOT/AST 17 U/L (15-37); SGPT/ALT 13 U/L (12-78); TOT PROT 6.8 g/dl (6.4-8.2)
[2016-10-28 03:03] LABS: ALK PHOS 85 U/L (45-117); CPK 25 IU/L (26-192); TROPONIN I < 0.02 ng/ml (0.00-0.05)
[2016-10-28 03:49] LABS: INR 1.04 (0.82-1.09); PROTHROMBIN TIME (PATIENT) 11.4 SEC (9.98-11.88)
--- NOTE | 2016-10-28 06:15 | PDOC ---
*Physical Exam - Vital Signs Last Vital Signs Temp Pulse Resp BP Pulse Ox 99.9 F H 80 18 109/57 97 10/28/16 02:07 10/28/16 02:07 10/28/16 02:07 10/28/16 02:07 10/28/16 02:07 ED Treatment Course - LABORATORY CBC & Chemistry Diagram: 10/28/16 02:18 10/28/16 02:18 - ADDITIONAL ORDERS Additional order review: Laboratory Results 10/28/16 10/28/16 10/28/16 03:27 02:18 02:18 INR 1.04 PTT (Actin FS) 26.0 L Sodium 149 H Potassium 4.6 Chloride 114 H Carbon Dioxide 28 Anion Gap 7 L BUN 45 H D Creatinine 0.9 D Creat Clearance w eGFR > 60 Random Glucose 270 H D Calcium 8.2 L Total Bilirubin 0.2 AST 17 D ALT 13 Alkaline Phosphatase 85 D Creatine Kinase 25 L Troponin I < 0.02 Total Protein 6.8 Albumin 1.7 L Stool Occult Blood Blood Type O POSITIVE Antibody Screen Positive H Crossmatch See Detail 10/28/16 02:10 INR PTT (Actin FS) Sodium Potassium Chloride Carbon Dioxide Anion Gap BUN Creatinine Creat Clearance w eGFR Random Glucose Calcium Total Bilirubin AST ALT Alkaline Phosphatase Creatine Kinase Troponin I Total Protein Albumin Stool Occult Blood Negative Blood Type Antibody Screen Crossmatch 10/28/16 02:18 RBC 2.31 L MCV 98.3 H MCHC 31.4 L RDW 18.8 H D MPV 9.2 Neutrophils % 53.4 D Lymphocytes % 38.1 D Monocytes % 4.4 Eosinophils % 3.4 D Basophils % 0.7 D Medical Decision Making - Medical Decision Making 10/28/16 06:15 agree with care from WILIAN Omalley *DC/Admit/Observation/Transfer Diagnosis at time of Disposition: Anemia Qualifiers: Anemia type: iron deficiency Iron deficiency anemia type: unspecified iron deficiency Qualified Code(s): D50.9 - Iron deficiency anemia, unspecified - Referrals Referrals: Rashawn Garcia MD [Primary Care Provider] - - Patient Instructions - Post Discharge Activity
--- NOTE | 2016-10-28 08:45 | HP ---
Admitting History and Physical - Admission History of Present Illness: 81-year-old female with history of acute kidney failure, hyperglycemia, diabetes , hypertension, COPD, MRSA, C. 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 Cardiovascular: Yes: Aortic Stenosis, CHF, HTN, Hyperlipdemia Pulmonary: Yes: COPD Gastrointestinal: Yes: GERD Renal/: Yes: Renal Inusuff Heme/Onc: Yes: Anemia Endocrine: Yes: Diabetes Mellitus Dermatology: Yes: Other (PU) - Smoking History Smoking history: Never smoked Have you smoked in the past 12 months: No Aproximately how many cigarettes per day: 0 - Alcohol/Substance Use Hx Alcohol Use: No - Social History History of Recent Travel: No Home Medications - Allergies Allergies/Adverse Reactions: Allergies Allergy/AdvReac Type Severity Reaction Status Date / Time No Known Drug Allergies Allergy Verified 10/28/16 02:18 - Home Medications Home Medications: Ambulatory Orders Aa/[place] Ivone,[place]hey/Arg/C/Zn/Cu [Lps Critical Care Liquid] 960 ml GT BID Acetaminophen Oral Solution [Tylenol 160mg/5mL Oral Solution -] 640 mg PO Q6H PRN 09/28/16 Ascorbic Acid [Vitamin C] 500 mg GT TID 09/28/16 Doxazosin Mesylate 2 mg GT HS 09/28/16 Escitalopram Oxalate [Lexapro 5mg/5mL Oral Solution -] 10 mg GT DAILY 09/28/16 Famotidine 20 mg GT DAILY 09/28/16 Fentanyl 1 each TD Q72H 09/28/16 Ferrous Sulfate *Liquid* [Feosol *Liquid*] 330 mg GT TID 09/28/16 Insulin Detemir [Levemir Flextouch] 12 unit SQ HS 09/28/16 Lactobacillus Acidophilus [Acidophilus] 1 each GT BID 09/28/16 Olanzapine [Zyprexa] 5 mg GT HS 09/28/16 Vitamin B Comp W-C [Nephro-Rafael -] 1 tablet GT DAILY 09/28/16 Collagenase Clostridium Hist. [Santyl -] 1 applic TP DAILY tube 10/08/16 Insulin Sliding Scale [Novolog Vial Sliding Scale -] 1 vial SQ ACHS units 10/08 Naph,Mb-Db/K pH,Mbdb [PHOS-NaK PACKET -] 1 packet GT TID packet 10/08/16 Heparin - 5,000 units IJ BID 10/28/16 Physical Examination Vital Signs: Vital Signs Temperature 97.5 F L 10/28/16 06:58 Pulse Rate 81 10/28/16 06:58 Respiratory Rate 23 10/28/16 06:58 Blood Pressure 106/68 10/28/16 06:58 O2 Sat by Pulse Oximetry (%) 100 10/28/16 06:58 Cardiovascular: Yes: Murmur, S1, S2 Respiratory: Yes: Regular, CTA Bilaterally Gastrointestinal: Yes: Normal Bowel Sounds, Soft Extremities: Yes: Amputation Problem List - Problems (1) Anemia Assessment/Plan: TRANSFUSE PRBC MONITOR CBC WILL D/W FAMILY POOR CANDIDATE FOR INVASIVE PROCEDURES Code(s): D64.9 - ANEMIA, UNSPECIFIED Qualifiers: Anemia type: iron deficiency Iron deficiency anemia type: unspecified iron deficiency Qualified Code(s): D50.9 - Iron deficiency anemia, unspecified (2) CHF (congestive heart failure) Assessment/Plan: MONITOR NO EVIDENCE OF FAILURE CXR Code(s): I50.9 - HEART FAILURE, UNSPECIFIED Qualifiers: Congestive heart failure type: diastolic Congestive heart failure chronicity: chronic Qualified Code(s): I50.32 - Chronic diastolic ( congestive) heart failure (3) Decubitus ulcer Code(s): L89.90 - PRESSURE ULCER OF UNSPECIFIED SITE, UNSPECIFIED STAGE Qualifiers: Pressure ulcer location: buttock (4) Diabetes Assessment/Plan: BGM MONITOR ON CURRENT MEDS Code(s): E11.9 - TYPE 2 DIABETES MELLITUS WITHOUT COMPLICATIONS Qualifiers: Diabetes mellitus type: type 2 Diabetes mellitus complication detail: with other skin ulcer (5) S/P bilateral below knee amputation Code(s): Z89.512 - ACQUIRED ABSENCE OF LEFT LEG BELOW KNEE Z89.511 - ACQUIRED ABSENCE OF RIGHT LEG BELOW KNEE
[2016-10-28] MEDS ORDERED: ACETAMINOPHEN 650 MG/20.3 ML ORAL SOLUTION (CUPS) ONE (09:47)
[2016-10-28] MEDS: ACETAMINOPHEN 650 MG/20.3 ML ORAL SOLUTION (CUPS) PO PRN (10:00)
[2016-10-28] MEDS ORDERED: DOXAZOSIN MESYLATE 1 MG TABLET PO SCH (10:00)
[2016-10-28] MEDS: FERROUS SO4 300 MG/5 ML ORAL SOLN UNIT DOSE CUPS GT SCH (10:06)
[2016-10-28] MEDS: AMINO ACIDS/PROTEIN HYDROLYS 30 ML LIQUID.PKT PO SCH ×2 (10:06→17:07)
[2016-10-28] MEDS: LACTOBACILLUS ACIDOPHILUS 1 EACH TAB (FP) GT SCH (10:06)
[2016-10-28] MEDS: DOXAZOSIN MESYLATE 2 MG TABLET (FP) GT SCH (10:06)
[2016-10-28] MEDS: HEPARIN NA (PORCINE) 5,000 UNITS/ML 1ML VIAL SQ SCH ×2 (10:07→22:40)
[2016-10-28] MEDS: ESCITALOPRAM OXALATE 5 MG/5 ML GT SCH (10:07)
[2016-10-28] MEDS: COLLAGENASE CLOSTRIDIUM HIST. 30 GRAMS TUBE TP SCH (10:07)
[2016-10-28] MEDS: RANITIDINE HCL 150 MG/10 ML UNIT-DOSE CUP GT SCH (10:07)
[2016-10-28] MEDS: ASCORBIC ACID 500 MG/5 ML UNIT DOSE CUP GT SCH ×2 (10:07→22:41)
--- NOTE | 2016-10-28 10:43 | EKG ---
Test Reason : Blood Pressure : / mmHG Vent. Rate : 078 BPM Atrial Rate : 078 BPM P-R Int : 104 ms QRS Dur : 078 ms QT Int : 446 ms P-R-T Axes : -05 -12 076 degrees QTc Int : 508 ms SINUS RHYTHM WITH SHORT MT NONSPECIFIC ST AND T WAVE ABNORMALITY PROLONGED QT ABNORMAL ECG WHEN COMPARED WITH ECG OF 29-SEP-2016 09:11, NO SIGNIFICANT CHANGE WAS FOUND Confirmed by TG VERMA, NICOLA ([id number]) on 10/28/2016 10:42:42 AM Referred By: Confirmed By:NICOLA MAS MD
[2016-10-28] MEDS: INSULIN SLIDING SCALE (NOVOLOG) 1 VIAL SQ SCH ×3 (11:30→22:41)
[2016-10-28] MEDS ORDERED: INSULIN REGULAR HUMAN 100 UNITS/ML *VIAL ONE (11:34)
--- NOTE | 2016-10-28 15:39 | PN ---
Progress Note (short form) - Note Progress Note: ID Consult dictated 81 y/o female admitted from [place] with anemia Now with low grade temp C difficile + Obtain c/s Will observe off antibiotics PO Flagyl for C difficile
[2016-10-28] MEDS: metroNIDAZOLE 250 MG TABLET PO SCH ×2 (16:07→22:40)
[2016-10-28] MEDS ORDERED: FUROSEMIDE 40 MG/4 ML INJECTABLE VIAL IVPUSH ONE (17:30)
--- NOTE | 2016-10-28 19:44 | CONSULT ---
Consult - Past Medical History EQUIPMENT MAN: Yes: CVA, Dementia Cardio/Vascular: Yes: Aortic Stenosis, CHF, HTN, Hyperlipdemia Pulmonary: Yes: COPD Gastrointestinal: Yes: GERD Renal/: Yes: Renal Inusuff ...: No Endocrine: Yes: Diabetes Mellitus Dermatology: Yes: Other (PU) - Alcohol/Substance Use Hx Alcohol Use: No - Smoking History Smoking history: Never smoked Have you smoked in the past 12 months: No Aproximately how many cigarettes per day: 0 - Social History Usual Living Arrangement: Residential History of Recent Travel: No Home Medications - Allergies Allergies/Adverse Reactions: Allergies Allergy/AdvReac Type Severity Reaction Status Date / Time No Known Drug Allergies Allergy Verified 10/28/16 02:18 - Home Medications Home Medications: Ambulatory Orders Aa/[place] Ivone,[place]/Arg/C/Zn/Cu [Lps Critical Care Liquid] 960 ml GT BID Acetaminophen Oral Solution [Tylenol 160mg/5mL Oral Solution -] 640 mg PO Q6H PRN 09/28/16 Ascorbic Acid [Vitamin C] 500 mg GT TID 09/28/16 Doxazosin Mesylate 2 mg GT HS 09/28/16 Escitalopram Oxalate [Lexapro 5mg/5mL Oral Solution -] 10 mg GT DAILY 09/28/16 Famotidine 20 mg GT DAILY 09/28/16 Fentanyl 1 each TD Q72H 09/28/16 Ferrous Sulfate *Liquid* [Feosol *Liquid*] 330 mg GT TID 09/28/16 Insulin Detemir [Levemir Flextouch] 12 unit SQ HS 09/28/16 Lactobacillus Acidophilus [Acidophilus] 1 each GT BID 09/28/16 Olanzapine [Zyprexa] 5 mg GT HS 09/28/16 Vitamin B Comp W-C [Nephro-Rafael -] 1 tablet GT DAILY 09/28/16 Collagenase Clostridium Hist. [Santyl -] 1 applic TP DAILY tube 10/08/16 Insulin Sliding Scale [Novolog Vial Sliding Scale -] 1 vial SQ ACHS units 10/08 Naph,Mb-Db/K pH,Mbdb [PHOS-NaK PACKET -] 1 packet GT TID packet 10/08/16 Heparin - 5,000 units IJ BID 10/28/16 Physical Exam Vital Signs: Vital Signs Temperature 98.3 F 10/28/16 16:25 Pulse Rate 84 10/28/16 16:25 Respiratory Rate 16 10/28/16 16:25 Blood Pressure 117/62 10/28/16 16:25 O2 Sat by Pulse Oximetry (%) 97 10/28/16 15:00 Assessment/Plan VAscular Surgery 81-year-old female with history of acute kidney failure, hyperglycemia, diabetes , hypertension, COPD, MRSA, C. difficile, pressure ulcer, recent sepsis, bilateral BKA, G-tube, anemia sent to the emergency room for abnormal lab results. Pt seen at bedside with daughter present. Past History - Past Medical History Allergies/Adverse Reactions: Allergies Allergy/AdvReac Type Severity Reaction Status Date / Time No Known Drug Allergies Allergy Verified 10/28/16 02:18 Home Medications: Ambulatory Orders Aa/[place] Ivone,[place]/Arg/C/Zn/Cu [Lps Critical Care Liquid] 960 ml GT BID Acetaminophen Oral Solution [Tylenol 160mg/5mL Oral Solution -] 640 mg PO Q6H PRN 09/28/16 Ascorbic Acid [Vitamin C] 500 mg GT TID 09/28/16 Doxazosin Mesylate 2 mg GT HS 09/28/16 Escitalopram Oxalate [Lexapro 5mg/5mL Oral Solution -] 10 mg GT DAILY 09/28/16 Famotidine 20 mg GT DAILY 09/28/16 Fentanyl 1 each TD Q72H 09/28/16 Ferrous Sulfate *Liquid* [Feosol *Liquid*] 330 mg GT TID 09/28/16 Insulin Detemir [Levemir Flextouch] 12 unit SQ HS 09/28/16 Lactobacillus Acidophilus [Acidophilus] 1 each GT BID 09/28/16 Olanzapine [Zyprexa] 5 mg GT HS 09/28/16 Vitamin B Comp W-C [Nephro-Rafael -] 1 tablet GT DAILY 09/28/16 Collagenase Clostridium Hist. [Santyl -] 1 applic TP DAILY tube 10/08/16 Insulin Sliding Scale [Novolog Vial Sliding Scale -] 1 vial SQ ACHS units 10/08 Naph,Mb-Db/K pH,Mbdb [PHOS-NaK PACKET -] 1 packet GT TID packet 10/08/16 Heparin - 5,000 units IJ BID 10/28/16 PE Head - NC/AT Lung - CTA heart - rRR abd - soft,nt,nd ext - warm, pink Sacral ulcer - clean, pink, good granulation. No signs of any infection A/P Sacral ulcer. clean , pink. Will start santyl. offload area Felipe Rivers DO
[2016-10-28] MEDS: INSULIN DETEMIR 100 UNITS/ML MDV SQ SCH (22:41)
[2016-10-28] MEDS ORDERED: PT OWN MED DRAWER 7, Y5N ONE (22:43)
[2016-10-28] MEDS: OLANZapine 5 MG TABLET GT SCH (22:52)
[2016-10-29] MEDS ORDERED: FUROSEMIDE 40 MG/4 ML INJECTABLE VIAL IVPUSH ONE
[2016-10-29] MEDS: ACETAMINOPHEN 650 MG/20.3 ML ORAL SOLUTION (CUPS) PO PRN ×2 (00:42→23:04)
[2016-10-29 02:57] LABS: URINE APPEARANCE TURBID; URINE BILIRUBIN NEGATIVE (NEGATIVE); URINE BLOOD 1+ (NEGATIVE); URINE COLOR YELLOW; URINE GLUCOSE (UA) 2+ (NEGATIVE); URINE KETONE NEGATIVE (NEGATIVE); URINE LEUK ESTERASE 2+ (NEGATIVE); URINE NITRITE NEGATIVE (NEGATIVE); URINE PROTEIN 2+ (NEGATIVE); URINE UROBILINOGEN NEGATIVE mg/dL (0.2-1.0)
[2016-10-29 03:02] LABS: URINE BACTERIA MODERATE /hpf (NONE SEEN); URINE MUCUS RARE; URINE RBC 25 /hpf (0-3); URINE WBC 3772 /hpf (3-5)
[2016-10-29] MEDS: metroNIDAZOLE 250 MG TABLET PO SCH ×3 (06:06→23:04)
[2016-10-29] MEDS: INSULIN SLIDING SCALE (NOVOLOG) 1 VIAL SQ SCH ×4 (06:25→23:11)
[2016-10-29 08:24] LABS: MCH 29.6 pg (25.7-33.7); MCHC 32.9 g/dl (32.0-36.0); MEAN PLT VOLUME 8.9 fl (7.5-11.1); PLATELET COUNT 400 K/MM3 (134-434); RDW 22.6 % (11.6-15.6); WHITE BLOOD COUNT 9.2 K/mm3 (4.0-10.0)
[2016-10-29 08:31] LABS: ALBUMIN 1.8 g/dl (3.4-5.0); ANION GAP 5 (8-16); BILIRUBIN,TOTAL 0.2 mg/dL (0.2-1.0); CALCIUM 8.5 mg/dL (8.5-10.1); CO2 30 mmol/L (21-32); CREATININE 0.9 mg/dL (0.55-1.02); GLUCOSE,RANDOM 122 mg/dL (74-106); SGOT/AST 11 U/L (15-37); SGPT/ALT 11 U/L (12-78); TOT PROT 7.4 g/dl (6.4-8.2)
[2016-10-29 08:32] LABS: ALK PHOS 81 U/L (45-117)
[2016-10-29] MEDS ORDERED: PT OWN MED DRAWER 7, Y5N ONE ×3 (08:39→21:29)
[2016-10-29] MEDS: FERROUS SO4 300 MG/5 ML ORAL SOLN UNIT DOSE CUPS GT SCH (09:33)
[2016-10-29] MEDS: AMINO ACIDS/PROTEIN HYDROLYS 30 ML LIQUID.PKT PO SCH ×2 (09:33→17:41)
[2016-10-29] MEDS: RANITIDINE HCL 150 MG/10 ML UNIT-DOSE CUP GT SCH (09:33)
[2016-10-29] MEDS: HEPARIN NA (PORCINE) 5,000 UNITS/ML 1ML VIAL SQ SCH ×2 (09:33→23:05)
[2016-10-29] MEDS: LACTOBACILLUS ACIDOPHILUS 1 EACH TAB (FP) GT SCH (09:34)
[2016-10-29] MEDS: DOXAZOSIN MESYLATE 2 MG TABLET (FP) GT SCH (09:34)
[2016-10-29] MEDS: ESCITALOPRAM OXALATE 5 MG/5 ML GT SCH (09:34)
[2016-10-29] MEDS: ASCORBIC ACID 500 MG/5 ML UNIT DOSE CUP GT SCH ×2 (09:36→23:03)
[2016-10-29] MEDS ORDERED: INSULIN (NOVOLOG) ASPART 100 UNITS/ML 10ML VIAL ONE (11:21)
[2016-10-29 12:37] LABS: ANISOCYTOSIS 2+
[2016-10-29] MEDS: COLLAGENASE CLOSTRIDIUM HIST. 30 GRAMS TUBE TP SCH (12:40)
--- NOTE | 2016-10-29 19:00 | PN ---
Progress Note, Physician Chief Complaint: Anemia History of Present Illness: NAD, comfortable in bed - Current Medication List Current Medications: Active Medications Acetaminophen (Tylenol Oral Solution -) 650 mg PO Q6H PRN PRN Reason: FEVER OR PAIN Last Admin: 10/29/16 00:42 Dose: 650 mg Amino Acids (Prosource No Carb Liquid Pkt) 30 ml PO BID@0800,1730 [facility] Last Admin: 10/29/16 17:41 Dose: 30 ml Ascorbic Acid (Vitamin C Oral Solution -) 500 mg GT BID [facility] Last Admin: 10/29/16 09:36 Dose: 500 mg Collagenase (Santyl -) 1 applic TP DAILY [facility] Last Admin: 10/29/16 12:40 Dose: 1 appful Doxazosin Mesylate (Cardura -) 2 mg GT DAILY [facility] Last Admin: 10/29/16 09:34 Dose: 2 mg Escitalopram Oxalate (Lexapro Oral Solution -) 5 mg GT DAILY [facility] Last Admin: 10/29/16 09:34 Dose: 5 mg Ferrous Sulfate (Feosol) 300 mg GT DAILY [facility] Last Admin: 10/29/16 09:33 Dose: 300 mg Heparin Sodium (Porcine) (Heparin -) 5,000 unit SQ BID [facility] Last Admin: 10/29/16 09:33 Dose: 5,000 unit Insulin Aspart (Novolog Vial Sliding Scale -) 1 vial SQ ACHS [facility] PRN Reason: Protocol Last Admin: 10/29/16 17:37 Dose: 6 units Insulin Detemir (Levemir Vial) 12 units SQ HS [facility] Last Admin: 10/28/16 22:41 Dose: 12 unit Lactobacillus Acidophilus (Bacid -) 1 tab GT DAILY [facility] Last Admin: 10/29/16 09:34 Dose: 1 tab Metronidazole (Flagyl -) 500 mg PO TID [facility] Last Admin: 10/29/16 15:09 Dose: 500 mg Miscellaneous (Duragesic Patch Waste) 1 each TD PRN PRN PRN Reason: PAIN Olanzapine (Zyprexa -) 5 mg GT HS [facility] Last Admin: 10/28/16 22:52 Dose: 5 mg Ranitidine HCl (Zantac Oral Solution -) 150 mg GT DAILY [facility] Last Admin: 10/29/16 09:33 Dose: 150 mg - Objective Vital Signs: Vital Signs Temperature 99.5 F 10/29/16 18:25 Pulse Rate 90 10/29/16 18:25 Respiratory Rate 20 10/29/16 18:25 Blood Pressure 105/58 10/29/16 18:25 O2 Sat by Pulse Oximetry (%) 98 10/29/16 17:56 Constitutional: Yes: Well Nourished, No Distress, Calm Cardiovascular: Yes: Regular Rate and Rhythm Respiratory: Yes: Regular Gastrointestinal: Yes: Normal Bowel Sounds Musculoskeletal: Yes: WNL Extremities: Yes: WNL Edema: No Peripheral Pulses WNL: Yes Wound/Incision: Yes: Clean/Dry Labs: CBC, BMP 10/29/16 06:10 10/29/16 06:10 INR, PTT INR 1.04 (0.82-1.09) 10/28/16 03:27 Problem List - Problems (1) Anemia Assessment/Plan: -received 2 units of PRBC, was febrile after blood transfusion, afebrile since yesterday -H/H improved today -check iron studies -labs in AM -stool OB negative Code(s): D64.9 - ANEMIA, UNSPECIFIED Qualifiers: Anemia type: iron deficiency Iron deficiency anemia type: unspecified iron deficiency Qualified Code(s): D50.9 - Iron deficiency anemia, unspecified (2) Decubitus ulcer Assessment/Plan: -not infected -seen by vascular -santyl -offloading from the area Code(s): L89.90 - PRESSURE ULCER OF UNSPECIFIED SITE, UNSPECIFIED STAGE Qualifiers: Pressure ulcer location: buttock (3) C. difficile diarrhea Assessment/Plan: -seen by ID -Flagyl po Code(s): A04.7 - ENTEROCOLITIS DUE TO CLOSTRIDIUM DIFFICILE Assessment/Plan -continue to monitor vitals -monitor labs in AM -Flagyl PO -check iron studies -d/c to NH once stable.
[2016-10-29] MEDS: OLANZapine 5 MG TABLET GT SCH (23:03)
[2016-10-29] MEDS: INSULIN DETEMIR 100 UNITS/ML MDV SQ SCH (23:10)
[2016-10-30] MEDS: INSULIN SLIDING SCALE (NOVOLOG) 1 VIAL SQ SCH ×4 (06:13→22:25)
[2016-10-30] MEDS: metroNIDAZOLE 250 MG TABLET PO SCH ×3 (06:14→22:15)
[2016-10-30 07:38] LABS: MCH 29.9 pg (25.7-33.7); MCHC 32.6 g/dl (32.0-36.0); MEAN CELL VOLUME 91.6 fl (80-96); MEAN PLT VOLUME 8.6 fl (7.5-11.1); PLATELET COUNT 417 K/MM3 (134-434); RDW 22.1 % (11.6-15.6); WHITE BLOOD COUNT 10.1 K/mm3 (4.0-10.0)
[2016-10-30 08:10] LABS: ALBUMIN 1.8 g/dl (3.4-5.0); ANION GAP 6 (8-16); CALCIUM 8.1 mg/dL (8.5-10.1); CO2 28 mmol/L (21-32); GLUCOSE,RANDOM 234 mg/dL (74-106); SGOT/AST 10 U/L (15-37); SGPT/ALT 11 U/L (12-78)
[2016-10-30 08:14] LABS: ALK PHOS 106 U/L (45-117); BILIRUBIN,TOTAL 0.5 mg/dL (0.2-1.0); FERRITIN 967.654 ng/ml (6.9-282.5); TOT PROT 7.6 g/dl (6.4-8.2)
[2016-10-30] MEDS: AMINO ACIDS/PROTEIN HYDROLYS 30 ML LIQUID.PKT PO SCH ×2 (09:20→17:14)
[2016-10-30 09:54] LABS: ANISOCYTOSIS 2+; HYPOCHROMIA 1+; PLATELET COMMENT2 NO CLOTTING DETECTED; PLATELET COMMENT3 FEW LARGE PLTS; PLATELET ESTIMATE SLT INCREASED (NORMAL); SMUDGE CELLS FEW
[2016-10-30] MEDS ORDERED: PT OWN MED DRAWER 7, Y5N ONE ×3 (12:35→21:19)
[2016-10-30] MEDS: LACTOBACILLUS ACIDOPHILUS 1 EACH TAB (FP) GT SCH (12:47)
[2016-10-30] MEDS: FERROUS SO4 300 MG/5 ML ORAL SOLN UNIT DOSE CUPS GT SCH (12:48)
[2016-10-30] MEDS: DOXAZOSIN MESYLATE 2 MG TABLET (FP) GT SCH (12:48)
[2016-10-30] MEDS: HEPARIN NA (PORCINE) 5,000 UNITS/ML 1ML VIAL SQ SCH ×2 (12:49→22:16)
[2016-10-30] MEDS: ESCITALOPRAM OXALATE 5 MG/5 ML GT SCH (12:49)
[2016-10-30] MEDS: RANITIDINE HCL 150 MG/10 ML UNIT-DOSE CUP GT SCH (12:50)
[2016-10-30] MEDS: COLLAGENASE CLOSTRIDIUM HIST. 30 GRAMS TUBE TP SCH (12:50)
[2016-10-30] MEDS: ASCORBIC ACID 500 MG/5 ML UNIT DOSE CUP GT SCH ×2 (12:50→22:16)
--- NOTE | 2016-10-30 14:02 | PN ---
Progress Note, Physician Chief Complaint: Anemia History of Present Illness: NAD, comfortable in bed - Current Medication List Current Medications: Active Medications Acetaminophen (Tylenol Oral Solution -) 650 mg PO Q6H PRN PRN Reason: FEVER OR PAIN Last Admin: 10/29/16 23:04 Dose: 650 mg Amino Acids (Prosource No Carb Liquid Pkt) 30 ml PO BID@0800,1730 [facility] Last Admin: 10/30/16 09:20 Dose: 30 ml Ascorbic Acid (Vitamin C Oral Solution -) 500 mg GT BID [facility] Last Admin: 10/30/16 12:50 Dose: 500 mg Collagenase (Santyl -) 1 applic TP DAILY [facility] Last Admin: 10/30/16 12:50 Dose: 1 appful Doxazosin Mesylate (Cardura -) 2 mg GT DAILY [facility] Last Admin: 10/30/16 12:48 Dose: 2 mg Escitalopram Oxalate (Lexapro Oral Solution -) 5 mg GT DAILY [facility] Last Admin: 10/30/16 12:49 Dose: 5 mg Ferrous Sulfate (Feosol) 300 mg GT DAILY [facility] Last Admin: 10/30/16 12:48 Dose: 300 mg Heparin Sodium (Porcine) (Heparin -) 5,000 unit SQ BID [facility] Last Admin: 10/30/16 12:49 Dose: 5,000 unit Insulin Aspart (Novolog Vial Sliding Scale -) 1 vial SQ ACHS [facility] PRN Reason: Protocol Last Admin: 10/30/16 12:53 Dose: 6 units Insulin Detemir (Levemir Vial) 12 units SQ HS [facility] Last Admin: 10/29/16 23:10 Dose: 12 unit Lactobacillus Acidophilus (Bacid -) 1 tab GT DAILY [facility] Last Admin: 10/30/16 12:47 Dose: 1 tab Metronidazole (Flagyl -) 500 mg PO TID [facility] Last Admin: 10/30/16 06:14 Dose: 500 mg Miscellaneous (Duragesic Patch Waste) 1 each TD PRN PRN PRN Reason: PAIN Olanzapine (Zyprexa -) 5 mg GT HS [facility] Last Admin: 10/29/16 23:03 Dose: 5 mg Ranitidine HCl (Zantac Oral Solution -) 150 mg GT DAILY [facility] Last Admin: 10/30/16 12:50 Dose: 150 mg - Objective Vital Signs: Vital Signs Temperature 97.7 F 10/30/16 06:00 Pulse Rate 73 10/30/16 06:00 Respiratory Rate 20 10/30/16 06:00 Blood Pressure 103/55 10/30/16 06:00 O2 Sat by Pulse Oximetry (%) 98 10/30/16 01:16 Constitutional: Yes: No Distress, Calm Cardiovascular: Yes: Regular Rate and Rhythm Respiratory: Yes: Regular Gastrointestinal: Yes: Normal Bowel Sounds, Soft Extremities: Yes: Amputation (Bilateral BKA) Edema: No (upper extremities) Peripheral Pulses WNL: Yes (upper extremities) Integumentary: Yes: Pressure Ulcer (stage IV sacrum, minimal discharge, erythematous boarder) Neurological: Yes: Alert Labs: CBC, BMP 10/30/16 06:00 10/30/16 06:00 INR, PTT INR 1.04 (0.82-1.09) 10/28/16 03:27 Problem List - Problems (1) Anemia Code(s): D64.9 - ANEMIA, UNSPECIFIED Qualifiers: Anemia type: iron deficiency Iron deficiency anemia type: unspecified iron deficiency Qualified Code(s): D50.9 - Iron deficiency anemia, unspecified (2) ARF (acute renal failure) Code(s): N17.9 - ACUTE KIDNEY FAILURE, UNSPECIFIED (3) Decubitus ulcer Code(s): L89.90 - PRESSURE ULCER OF UNSPECIFIED SITE, UNSPECIFIED STAGE Qualifiers: Pressure ulcer location: buttock (4) Dementia Code(s): F03.90 - UNSPECIFIED DEMENTIA WITHOUT BEHAVIORAL DISTURBANCE (5) Fever Code(s): R50.9 - FEVER, UNSPECIFIED Assessment/Plan -Febrile, Mpjc=690.3 Tylenol was given -Repeat urine culture (previous specimen was contaminated). -Repeat blood culture -Wound culture -repeat labs, include lactate -continue to monitor vitals -monitor labs in AM -Flagyl PO -d/c to NH once stable.
[2016-10-30] MEDS: ACETAMINOPHEN 650 MG/20.3 ML ORAL SOLUTION (CUPS) PO PRN (14:16)
[2016-10-30] MEDS: fentaNYL 12mcg/hr PATCH.TD72 TD SCH (22:16)
[2016-10-30] MEDS: OLANZapine 5 MG TABLET GT SCH (22:16)
[2016-10-30] MEDS: INSULIN DETEMIR 100 UNITS/ML MDV SQ SCH (22:25)
[2016-10-31] MEDS: ACETAMINOPHEN 650 MG/20.3 ML ORAL SOLUTION (CUPS) PO PRN ×3 (06:20→22:03)
[2016-10-31] MEDS: metroNIDAZOLE 250 MG TABLET PO SCH (06:20)
[2016-10-31] MEDS: INSULIN SLIDING SCALE (NOVOLOG) 1 VIAL SQ SCH ×4 (06:29→22:01)
[2016-10-31 06:41] LABS: SERUM IRON 30 ug/dL (27-139); TOTAL IRON BINDING CAPACITY 162 ug/dL (250-450); UIBC 132 ug/dL (118-369)
[2016-10-31] MEDS: FENTANYL PATCH WASTE TD PRN (07:01)
[2016-10-31 07:15] LABS: BASOPHIL 0.5 % (0-2.0); EOSINOPHIL 1.5 % (0-4.5); MCHC 32.6 g/dl (32.0-36.0); MEAN CELL VOLUME 92.1 fl (80-96); MEAN PLT VOLUME 8.8 fl (7.5-11.1); NEUTROPHILS 64.5 % (42.8-82.8); PLATELET COUNT 456 K/MM3 (134-434)
[2016-10-31 08:27] LABS: ALBUMIN 1.9 g/dl (3.4-5.0); ALK PHOS 120 U/L (45-117); ANION GAP 9 (8-16); BILIRUBIN,TOTAL 0.4 mg/dL (0.2-1.0); CALCIUM 8.8 mg/dL (8.5-10.1); CO2 27 mmol/L (21-32); GLUCOSE,RANDOM 267 mg/dL (74-106); SGOT/AST 16 U/L (15-37); SGPT/ALT 11 U/L (12-78); TOT PROT 7.8 g/dl (6.4-8.2)
[2016-10-31] MEDS ORDERED: VANCOMYCIN 1 GRAM (PRE-DOCKED) 250 ML IVPB ONE (09:45)
[2016-10-31] MEDS ORDERED: PIPERACILLIN/TAZOB 3.375 GM/50 ML PRE-DOCKED IVPB SCH (10:00)
[2016-10-31] MEDS ORDERED: PIPERACILLIN/TAZOB 3.375 GM 3.375 GM in DEXTROSE 5%-WATER - 50 ML IVPB ONE (10:00)
[2016-10-31] MEDS ORDERED: PT OWN MED DRAWER 7, Y5N ONE (10:35)
[2016-10-31] MEDS ORDERED: PIPERACILLIN/TAZOBACTAM 3.375 GM VIAL IVPB ONE (10:37)
[2016-10-31] MEDS ORDERED: DEXTROSE 5%-WATER - 50 ML IVPB ONE (10:37)
[2016-10-31] MEDS: LACTOBACILLUS ACIDOPHILUS 1 EACH TAB (FP) GT SCH (10:54)
[2016-10-31] MEDS: RANITIDINE HCL 150 MG/10 ML UNIT-DOSE CUP GT SCH (10:54)
[2016-10-31] MEDS: FERROUS SO4 300 MG/5 ML ORAL SOLN UNIT DOSE CUPS GT SCH (10:54)
[2016-10-31] MEDS: HEPARIN NA (PORCINE) 5,000 UNITS/ML 1ML VIAL SQ SCH ×2 (10:54→22:01)
[2016-10-31] MEDS: AMINO ACIDS/PROTEIN HYDROLYS 30 ML LIQUID.PKT PO SCH ×2 (10:54→17:32)
[2016-10-31] MEDS: DOXAZOSIN MESYLATE 2 MG TABLET (FP) GT SCH (10:55)
[2016-10-31] MEDS: ESCITALOPRAM OXALATE 5 MG/5 ML GT SCH (10:55)
[2016-10-31] MEDS: ASCORBIC ACID 500 MG/5 ML UNIT DOSE CUP GT SCH ×2 (10:56→22:02)
[2016-10-31] MEDS: COLLAGENASE CLOSTRIDIUM HIST. 30 GRAMS TUBE TP SCH (10:56)
--- NOTE | 2016-10-31 14:24 | PN ---
Progress Note, Physician Chief Complaint: Anemia Infected Pressure Ulcer History of Present Illness: NAD, comfortable in bed. Patient noted with leukocytosis and febrile episodes. Patient was given Vancomycin 1g X 1 dose and started on Zosyn 3.375g Q8. - Current Medication List Current Medications: Active Medications Acetaminophen (Tylenol Oral Solution -) 650 mg PO Q6H PRN PRN Reason: FEVER OR PAIN Last Admin: 10/31/16 13:19 Dose: 650 mg Amino Acids (Prosource No Carb Liquid Pkt) 30 ml PO BID@0800,1730 [facility] Last Admin: 10/31/16 10:54 Dose: 30 ml Ascorbic Acid (Vitamin C Oral Solution -) 500 mg GT BID [facility] Last Admin: 10/31/16 10:56 Dose: 500 mg Collagenase (Santyl -) 1 applic TP DAILY [facility] Last Admin: 10/31/16 10:56 Dose: 1 appful Doxazosin Mesylate (Cardura -) 2 mg GT DAILY [facility] Last Admin: 10/31/16 10:55 Dose: 2 mg Escitalopram Oxalate (Lexapro Oral Solution -) 5 mg GT DAILY [facility] Last Admin: 10/31/16 10:55 Dose: 5 mg Fentanyl (Duragesic 12mcg Patch -) 1 patch TD Q72H [facility] Last Admin: 10/30/16 22:16 Dose: 1 patch Ferrous Sulfate (Feosol) 300 mg GT DAILY [facility] Last Admin: 10/31/16 10:54 Dose: 300 mg Heparin Sodium (Porcine) (Heparin -) 5,000 unit SQ BID [facility] Last Admin: 10/31/16 10:54 Dose: 5,000 unit Insulin Aspart (Novolog Vial Sliding Scale -) 1 vial SQ ACHS [facility] PRN Reason: Protocol Last Admin: 10/31/16 12:20 Dose: 8 units Insulin Detemir (Levemir Vial) 12 units SQ HS [facility] Last Admin: 10/30/16 22:25 Dose: 12 unit Lactobacillus Acidophilus (Bacid -) 1 tab GT DAILY [facility] Last Admin: 10/31/16 10:54 Dose: 1 tab Miscellaneous (Duragesic Patch Waste) 1 each TD PRN PRN PRN Reason: PAIN Last Admin: 10/31/16 07:01 Dose: 1 each Olanzapine (Zyprexa -) 5 mg GT HS [facility] Last Admin: 10/30/16 22:16 Dose: 5 mg Piperacillin Sod/Tazobactam Sod (Zosyn 3.375gm Ivpb (Pre-Docked)) 3.375 gm IVPB Q8H-IV [facility] PRN Reason: Protocol Ranitidine HCl (Zantac Oral Solution -) 150 mg GT DAILY [facility] Last Admin: 10/31/16 10:54 Dose: 150 mg - Objective Vital Signs: Vital Signs Temperature 101.7 F H 10/31/16 06:00 Pulse Rate 100 H 10/31/16 06:00 Respiratory Rate 20 10/31/16 06:00 Blood Pressure 114/58 10/31/16 06:00 O2 Sat by Pulse Oximetry (%) 99 10/31/16 02:00 Constitutional: Yes: No Distress, Calm Cardiovascular: Yes: Regular Rate and Rhythm, S1, S2 Respiratory: Yes: Regular, CTA Bilaterally Gastrointestinal: Yes: Normal Bowel Sounds, Soft Extremities: Yes: Amputation (bilateral BKA) Edema: No (upper extremities) Peripheral Pulses WNL: Yes Integumentary: Yes: Pressure Ulcer (sacrum, stage IV, minimal discharge, erythematous boarder) Labs: CBC, BMP 10/31/16 06:00 10/31/16 06:00 INR, PTT INR 1.04 (0.82-1.09) 10/28/16 03:27 Problem List - Problems (1) Anemia Code(s): D64.9 - ANEMIA, UNSPECIFIED Qualifiers: Anemia type: iron deficiency Iron deficiency anemia type: unspecified iron deficiency Qualified Code(s): D50.9 - Iron deficiency anemia, unspecified (2) ARF (acute renal failure) Code(s): N17.9 - ACUTE KIDNEY FAILURE, UNSPECIFIED (3) Decubitus ulcer Code(s): L89.90 - PRESSURE ULCER OF UNSPECIFIED SITE, UNSPECIFIED STAGE Qualifiers: Pressure ulcer location: buttock (4) Dementia Code(s): F03.90 - UNSPECIFIED DEMENTIA WITHOUT BEHAVIORAL DISTURBANCE (5) Fever Code(s): R50.9 - FEVER, UNSPECIFIED Assessment/Plan Leukocytosis with febrile episodes likely 2/2 Infected sacral PU -Tylenol PRN fever -UC, BC pending result -Wound culture (+) -staph, group D, strep -Started on Vancomycin X 1 dose, Zosyn Q8 -repeat labs in am -requested vascular surgery to re-evaluate the wound -to be re-evaluated by ID
[2016-10-31] MEDS: INSULIN DETEMIR 100 UNITS/ML MDV SQ SCH (22:01)
[2016-10-31] MEDS: OLANZapine 5 MG TABLET GT SCH (22:02)
[2016-11-01] MEDS ORDERED: PIPERACILLIN/TAZOB 3.375 GM/50 ML PRE-DOCKED IVPB ONE (00:30)
[2016-11-01] MEDS ORDERED: PIPERACILLIN/TAZOBACTAM 3.375 GM VIAL IVPB ONE (00:44)
[2016-11-01] MEDS ORDERED: DEXTROSE 5%-WATER - 50 ML IVPB ONE (00:44)
[2016-11-01] MEDS ORDERED: PIPERACILLIN/TAZOB 3.375 GM 3.375 GM in DEXTROSE 5%-WATER - 50 ML IVPB ONE (02:00)
[2016-11-01] MEDS: ACETAMINOPHEN 650 MG/20.3 ML ORAL SOLUTION (CUPS) PO PRN ×4 (05:52→23:45)
[2016-11-01] MEDS: INSULIN SLIDING SCALE (NOVOLOG) 1 VIAL SQ SCH ×4 (06:01→21:19)
[2016-11-01 07:52] LABS: MCH 29.4 pg (25.7-33.7); MCHC 31.5 g/dl (32.0-36.0); MEAN CELL VOLUME 93.1 fl (80-96); MEAN PLT VOLUME 8.7 fl (7.5-11.1); PLATELET COUNT 412 K/MM3 (134-434); RDW 21.3 % (11.6-15.6); WHITE BLOOD COUNT 10.6 K/mm3 (4.0-10.0)
[2016-11-01 08:20] LABS: ALBUMIN 1.8 g/dl (3.4-5.0); ANION GAP 6 (8-16); CALCIUM 8.1 mg/dL (8.5-10.1); CO2 29 mmol/L (21-32)
[2016-11-01 08:24] LABS: ALK PHOS 128 U/L (45-117); BILIRUBIN,TOTAL 0.3 mg/dL (0.2-1.0); CREATININE 1.3 mg/dL (0.55-1.02); SGOT/AST 24 U/L (15-37); SGPT/ALT 17 U/L (12-78); TOT PROT 7.5 g/dl (6.4-8.2)
--- NOTE | 2016-11-01 09:04 | PN ---
Progress Note, Physician - Current Medication List Current Medications: Active Medications Acetaminophen (Tylenol Oral Solution -) 650 mg PO Q6H PRN PRN Reason: FEVER OR PAIN Last Admin: 11/01/16 05:52 Dose: 650 mg Amino Acids (Prosource No Carb Liquid Pkt) 30 ml PO BID@0800,1730 [facility] Last Admin: 10/31/16 17:32 Dose: 30 ml Ascorbic Acid (Vitamin C Oral Solution -) 500 mg GT BID [facility] Last Admin: 10/31/16 22:02 Dose: 500 mg Collagenase (Santyl -) 1 applic TP DAILY [facility] Last Admin: 10/31/16 10:56 Dose: 1 appful Doxazosin Mesylate (Cardura -) 2 mg GT DAILY [facility] Last Admin: 10/31/16 10:55 Dose: 2 mg Escitalopram Oxalate (Lexapro Oral Solution -) 5 mg GT DAILY [facility] Last Admin: 10/31/16 10:55 Dose: 5 mg Fentanyl (Duragesic 12mcg Patch -) 1 patch TD Q72H [facility] Last Admin: 10/30/16 22:16 Dose: 1 patch Ferrous Sulfate (Feosol) 300 mg GT DAILY [facility] Last Admin: 10/31/16 10:54 Dose: 300 mg Heparin Sodium (Porcine) (Heparin -) 5,000 unit SQ BID [facility] Last Admin: 10/31/16 22:01 Dose: 5,000 unit Insulin Aspart (Novolog Vial Sliding Scale -) 1 vial SQ ACHS [facility] PRN Reason: Protocol Last Admin: 11/01/16 06:01 Dose: 6 units Insulin Detemir (Levemir Vial) 12 units SQ HS [facility] Last Admin: 10/31/16 22:01 Dose: 12 unit Lactobacillus Acidophilus (Bacid -) 1 tab GT DAILY [facility] Last Admin: 10/31/16 10:54 Dose: 1 tab Miscellaneous (Duragesic Patch Waste) 1 each TD PRN PRN PRN Reason: PAIN Last Admin: 10/31/16 07:01 Dose: 1 each Olanzapine (Zyprexa -) 5 mg GT HS [facility] Last Admin: 10/31/16 22:02 Dose: 5 mg Piperacillin Sod/Tazobactam Sod (Zosyn 3.375gm Ivpb (Pre-Docked)) 3.375 gm IVPB Q8H-IV [facility] PRN Reason: Protocol Ranitidine HCl (Zantac Oral Solution -) 150 mg GT DAILY [facility] Last Admin: 10/31/16 10:54 Dose: 150 mg - Objective Vital Signs: Vital Signs Temperature 99.5 F 11/01/16 08:45 Pulse Rate 114 H 11/01/16 08:45 Respiratory Rate 20 11/01/16 08:45 Blood Pressure 110/63 11/01/16 08:45 O2 Sat by Pulse Oximetry (%) 99 11/01/16 01:37 Labs: CBC, BMP 11/01/16 06:00 11/01/16 06:00 INR, PTT INR 1.04 (0.82-1.09) 10/28/16 03:27 Problem List - Problems (1) Anemia Code(s): D64.9 - ANEMIA, UNSPECIFIED Qualifiers: Anemia type: iron deficiency Iron deficiency anemia type: unspecified iron deficiency Qualified Code(s): D50.9 - Iron deficiency anemia, unspecified (2) CHF (congestive heart failure) Code(s): I50.9 - HEART FAILURE, UNSPECIFIED Qualifiers: Congestive heart failure type: diastolic Congestive heart failure chronicity: chronic Qualified Code(s): I50.32 - Chronic diastolic ( congestive) heart failure (3) Decubitus ulcer Code(s): L89.90 - PRESSURE ULCER OF UNSPECIFIED SITE, UNSPECIFIED STAGE Qualifiers: Pressure ulcer location: buttock (4) Diabetes Code(s): E11.9 - TYPE 2 DIABETES MELLITUS WITHOUT COMPLICATIONS Qualifiers: Diabetes mellitus type: type 2 Diabetes mellitus complication detail: with other skin ulcer (5) S/P bilateral below knee amputation Code(s): Z89.512 - ACQUIRED ABSENCE OF LEFT LEG BELOW KNEE Z89.511 - ACQUIRED ABSENCE OF RIGHT LEG BELOW KNEE
[2016-11-01 09:22] LABS: PLATELET ESTIMATE ADEQUATE (NORMAL)
--- NOTE | 2016-11-01 09:43 | DS ---
Physical Examination Vital Signs: Vital Signs Temperature 99.5 F 11/01/16 08:45 Pulse Rate 114 H 11/01/16 08:45 Respiratory Rate 20 11/01/16 08:45 Blood Pressure 110/63 11/01/16 08:45 O2 Sat by Pulse Oximetry (%) 99 11/01/16 01:37 Labs: CBC, BMP 11/01/16 06:00 11/01/16 06:00 Discharge Summary Reason For Visit: ANEMIA Current Active Problems Anemia (Acute) C. difficile diarrhea (Acute) Hospital Course: 1-year-old female with history of acute kidney failure, hyperglycemia, diabetes , hypertension, COPD, MRSA, C. 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 History [employer]: Yes: CVA, Dementia Cardiovascular: Yes: Aortic Stenosis, CHF, HTN, Hyperlipdemia Pulmonary: Yes: COPD Gastrointestinal: Yes: GERD Renal/: Yes: Renal Inusuff Heme/Onc: Yes: Anemia Endocrine: Yes: Diabetes Mellitus Dermatology: Yes: Other (PU) Problems (1) Anemia Assessment/Plan: TRANSFUSED PRBC MONITOR CBC WILL D/W FAMILY POOR CANDIDATE FOR INVASIVE PROCEDURES Code(s): D64.9 - ANEMIA, UNSPECIFIED Qualifiers: Anemia type: iron deficiency Iron deficiency anemia type: unspecified iron deficiency Qualified Code(s): D50.9 - Iron deficiency anemia, unspecified (2) CHF (congestive heart failure) Assessment/Plan: MONITOR NO EVIDENCE OF FAILURE CXR Code(s): I50.9 - HEART FAILURE, UNSPECIFIED Qualifiers: Congestive heart failure type: diastolic Congestive heart failure chronicity: chronic Qualified Code(s): I50.32 - Chronic diastolic ( congestive) heart failure (3) Decubitus ulcer Code(s): L89.90 - PRESSURE ULCER OF UNSPECIFIED SITE, UNSPECIFIED STAGE Qualifiers: Pressure ulcer location: buttock (4) Diabetes Assessment/Plan: BGM MONITOR ON CURRENT MEDS Code(s): E11.9 - TYPE 2 DIABETES MELLITUS WITHOUT COMPLICATIONS Qualifiers: Diabetes mellitus type: type 2 Diabetes mellitus complication detail: with other skin ulcer (5) S/P bilateral below knee amputation Code(s): Z89.512 - ACQUIRED ABSENCE OF LEFT LEG BELOW KNEE Z89.511 - ACQUIRED ABSENCE OF RIGHT LEG BELOW KNEE Leukocytosis with febrile episodes likely 2/2 Infected sacral PU -Tylenol PRN fever -UC, BC pending result -Wound culture (+) -staph, group D, strep -Started on Vancomycin X 1 dose, --Zosyn Q8--DID NOR RECEIVE--ID FOLLW UP -repeat labs noted -requested vascular surgery evaluated the wound--done -to be re-evaluated by ID - Instructions Referrals: Rashawn Garcia MD [Staff Physician] - - Home Medications Comprehensive Discharge Medication List: Ambulatory Orders Aa/[facility],[place]/Arg/C/Zn/Cu [Lps Critical Care Liquid] 960 ml GT BID Acetaminophen Oral Solution [Tylenol 160mg/5mL Oral Solution -] 640 mg PO Q6H PRN 09/28/16 Ascorbic Acid [Vitamin C] 500 mg GT TID 09/28/16 Doxazosin Mesylate 2 mg GT HS 09/28/16 Escitalopram Oxalate [Lexapro 5mg/5mL Oral Solution -] 10 mg GT DAILY 09/28/16 Famotidine 20 mg GT DAILY 09/28/16 Fentanyl 1 each TD Q72H 09/28/16 Ferrous Sulfate *Liquid* [Feosol *Liquid*] 330 mg GT TID 09/28/16 Insulin Detemir [Levemir Flextouch] 12 unit SQ HS 09/28/16 Lactobacillus Acidophilus [Acidophilus] 1 each GT BID 09/28/16 Olanzapine [Zyprexa] 5 mg GT HS 09/28/16 Vitamin B Comp W-C [Nephro-Rafael -] 1 tablet GT DAILY 09/28/16 Collagenase Clostridium Hist. [Santyl -] 1 applic TP DAILY tube 10/08/16 Insulin Sliding Scale [Novolog Vial Sliding Scale -] 1 vial SQ ACHS units 10/08 Naph,Mb-Db/K pH,Mbdb [PHOS-NaK PACKET -] 1 packet GT TID packet 10/08/16 Heparin - 5,000 units IJ BID 10/28/16
[2016-11-01 10:25] LABS: GLUCOSE,RANDOM 318 mg/dL (74-106)
[2016-11-01] MEDS ORDERED: PT OWN MED DRAWER 7, Y5N ONE (10:53)
[2016-11-01] MEDS: ESCITALOPRAM OXALATE 5 MG/5 ML GT SCH (11:00)
[2016-11-01] MEDS: HEPARIN NA (PORCINE) 5,000 UNITS/ML 1ML VIAL SQ SCH ×2 (11:00→21:18)
[2016-11-01] MEDS: AMINO ACIDS/PROTEIN HYDROLYS 30 ML LIQUID.PKT PO SCH ×2 (11:00→17:18)
[2016-11-01] MEDS: FERROUS SO4 300 MG/5 ML ORAL SOLN UNIT DOSE CUPS GT SCH (11:00)
[2016-11-01] MEDS: LACTOBACILLUS ACIDOPHILUS 1 EACH TAB (FP) GT SCH (11:00)
[2016-11-01] MEDS: RANITIDINE HCL 150 MG/10 ML UNIT-DOSE CUP GT SCH (11:01)
[2016-11-01] MEDS: COLLAGENASE CLOSTRIDIUM HIST. 30 GRAMS TUBE TP SCH (11:01)
[2016-11-01] MEDS: ASCORBIC ACID 500 MG/5 ML UNIT DOSE CUP GT SCH ×2 (11:02→21:19)
[2016-11-01] MEDS ORDERED: INSULIN (NOVOLOG) ASPART 100 UNITS/ML 10ML VIAL ONE ×2 (12:10→20:29)
--- NOTE | 2016-11-01 14:20 | PN ---
Progress Note, Physician Chief Complaint: Febrile WBC slightly elevated Awake but non verbal breathing non labored no cough BC (-) Urine c/s GNR Wound c/s mixed - Current Medication List Current Medications: Active Medications Acetaminophen (Tylenol Oral Solution -) 650 mg PO Q6H PRN PRN Reason: FEVER OR PAIN Last Admin: 11/01/16 12:23 Dose: 650 mg Amino Acids (Prosource No Carb Liquid Pkt) 30 ml PO BID@0800,1730 [facility] Last Admin: 11/01/16 11:00 Dose: 30 ml Ascorbic Acid (Vitamin C Oral Solution -) 500 mg GT BID [facility] Last Admin: 11/01/16 11:02 Dose: 500 mg Collagenase (Santyl -) 1 applic TP DAILY [facility] Last Admin: 11/01/16 11:01 Dose: 1 appful Doxazosin Mesylate (Cardura -) 2 mg GT DAILY [facility] Last Admin: 10/31/16 10:55 Dose: 2 mg Escitalopram Oxalate (Lexapro Oral Solution -) 5 mg GT DAILY [facility] Last Admin: 11/01/16 11:00 Dose: 5 mg Fentanyl (Duragesic 12mcg Patch -) 1 patch TD Q72H [facility] Last Admin: 10/30/16 22:16 Dose: 1 patch Ferrous Sulfate (Feosol) 300 mg GT DAILY [facility] Last Admin: 11/01/16 11:00 Dose: 300 mg Heparin Sodium (Porcine) (Heparin -) 5,000 unit SQ BID [facility] Last Admin: 11/01/16 11:00 Dose: 5,000 unit Insulin Aspart (Novolog Vial Sliding Scale -) 1 vial SQ ACHS [facility] PRN Reason: Protocol Last Admin: 11/01/16 12:24 Dose: 6 units Insulin Detemir (Levemir Vial) 12 units SQ HS [facility] Last Admin: 10/31/16 22:01 Dose: 12 unit Lactobacillus Acidophilus (Bacid -) 1 tab GT DAILY [facility] Last Admin: 11/01/16 11:00 Dose: 1 tab Miscellaneous (Duragesic Patch Waste) 1 each TD PRN PRN PRN Reason: PAIN Last Admin: 10/31/16 07:01 Dose: 1 each Olanzapine (Zyprexa -) 5 mg GT HS [facility] Last Admin: 10/31/16 22:02 Dose: 5 mg Piperacillin Sod/Tazobactam Sod (Zosyn 3.375gm Ivpb (Pre-Docked)) 3.375 gm IVPB Q8H-IV [facility] PRN Reason: Protocol Ranitidine HCl (Zantac Oral Solution -) 150 mg GT DAILY [facility] Last Admin: 11/01/16 11:01 Dose: 150 mg - Objective Vital Signs: Vital Signs Temperature 99.5 F 11/01/16 08:45 Pulse Rate 114 H 11/01/16 08:45 Respiratory Rate 20 11/01/16 08:45 Blood Pressure 110/63 11/01/16 08:45 O2 Sat by Pulse Oximetry (%) 99 11/01/16 01:37 Constitutional: Yes: No Distress, Pallor Cardiovascular: Yes: Regular Rate and Rhythm, S1, S2 Respiratory: Yes: Diminished Gastrointestinal: Yes: Normal Bowel Sounds, Soft. No: Tenderness Extremities: Yes: Other (S/P BKA) Integumentary: Yes: Other (Large stage IV sacral decubitus) Labs: CBC, BMP 11/01/16 06:00 11/01/16 06:00 INR, PTT INR 1.04 (0.82-1.09) 10/28/16 03:27 Assessment/Plan Fever probable decubitus source Stage IV sacral decubitus + Wound c/s CRE, MRSA UTI Await c/s CXR Redose vanco Gentamicin x 1
[2016-11-01] MEDS ORDERED: GENTAMICIN IVPB ONE ×2 (14:33→14:59)
[2016-11-01] MEDS ORDERED: SODIUM CHLORIDE IVPB ONE ×2 (14:33→14:59)
[2016-11-01] MEDS: PIPERACILLIN/TAZOB 3.375 GM/50 ML PRE-DOCKED IVPB SCH (14:38)
[2016-11-01] MEDS ORDERED: VANCOMYCIN 1 GRAM (PRE-DOCKED) 250 ML IVPB ONE (14:45)
[2016-11-01] MEDS: DOXAZOSIN MESYLATE 2 MG TABLET (FP) GT SCH (15:01)
--- NOTE | 2016-11-01 20:05 | PN ---
Progress Note (short form) - Note Progress Note: Vascular Surgery Pt seen and examined. Sacral wound dressing changed. clean, pink, with good granulation. Cont to offload. Pt with positive urine cultures. could be source of fevers. Cont santyl. Felipe Rivers dO
[2016-11-01] MEDS: INSULIN DETEMIR 100 UNITS/ML MDV SQ SCH (21:18)
[2016-11-01] MEDS: OLANZapine 5 MG TABLET GT SCH (21:20)
[2016-11-02] MEDS: ACETAMINOPHEN 650 MG/20.3 ML ORAL SOLUTION (CUPS) PO PRN ×2 (05:50→17:12)
[2016-11-02] MEDS: INSULIN SLIDING SCALE (NOVOLOG) 1 VIAL SQ SCH ×4 (06:17→21:34)
[2016-11-02] MEDS: AMINO ACIDS/PROTEIN HYDROLYS 30 ML LIQUID.PKT PO SCH ×2 (08:19→17:12)
[2016-11-02] MEDS ORDERED: PT OWN MED DRAWER 7, Y5N ONE ×3 (11:50→20:48)
[2016-11-02] MEDS: HEPARIN NA (PORCINE) 5,000 UNITS/ML 1ML VIAL SQ SCH ×2 (11:51→21:30)
[2016-11-02] MEDS: LACTOBACILLUS ACIDOPHILUS 1 EACH TAB (FP) GT SCH (11:52)
[2016-11-02] MEDS: ESCITALOPRAM OXALATE 5 MG/5 ML GT SCH (11:52)
[2016-11-02] MEDS: FERROUS SO4 300 MG/5 ML ORAL SOLN UNIT DOSE CUPS GT SCH (11:52)
[2016-11-02] MEDS: RANITIDINE HCL 150 MG/10 ML UNIT-DOSE CUP GT SCH (11:52)
[2016-11-02] MEDS: ASCORBIC ACID 500 MG/5 ML UNIT DOSE CUP GT SCH ×2 (11:53→21:30)
[2016-11-02] MEDS: DOXAZOSIN MESYLATE 2 MG TABLET (FP) GT SCH (11:54)
[2016-11-02] MEDS ORDERED: INSULIN (NOVOLOG) ASPART 100 UNITS/ML 10ML VIAL ONE ×4 (12:18→20:47)
--- NOTE | 2016-11-02 14:01 | PN ---
Progress Note, Physician Chief Complaint: Anemia History of Present Illness: NAD, comfortable in bed - Current Medication List Current Medications: Active Medications Acetaminophen (Tylenol Oral Solution -) 650 mg PO Q6H PRN PRN Reason: FEVER OR PAIN Last Admin: 11/02/16 05:50 Dose: 650 mg Amino Acids (Prosource No Carb Liquid Pkt) 30 ml PO BID@0800,1730 [facility] Last Admin: 11/02/16 08:19 Dose: 30 ml Ascorbic Acid (Vitamin C Oral Solution -) 500 mg GT BID [facility] Last Admin: 11/02/16 11:53 Dose: 500 mg Collagenase (Santyl -) 1 applic TP DAILY [facility] Last Admin: 11/01/16 11:01 Dose: 1 appful Doxazosin Mesylate (Cardura -) 2 mg GT DAILY [facility] Last Admin: 11/02/16 11:54 Dose: 2 mg Escitalopram Oxalate (Lexapro Oral Solution -) 5 mg GT DAILY [facility] Last Admin: 11/02/16 11:52 Dose: 5 mg Fentanyl (Duragesic 12mcg Patch -) 1 patch TD Q72H [facility] Last Admin: 10/30/16 22:16 Dose: 1 patch Ferrous Sulfate (Feosol) 300 mg GT DAILY [facility] Last Admin: 11/02/16 11:52 Dose: 300 mg Heparin Sodium (Porcine) (Heparin -) 5,000 unit SQ BID [facility] Last Admin: 11/02/16 11:51 Dose: 5,000 unit Insulin Aspart (Novolog Vial Sliding Scale -) 1 vial SQ ACHS [facility] PRN Reason: Protocol Last Admin: 11/02/16 12:19 Dose: 8 units Insulin Detemir (Levemir Vial) 12 units SQ HS [facility] Last Admin: 11/01/16 21:18 Dose: 12 unit Lactobacillus Acidophilus (Bacid -) 1 tab GT DAILY [facility] Last Admin: 11/02/16 11:52 Dose: 1 tab Miscellaneous (Duragesic Patch Waste) 1 each TD PRN PRN PRN Reason: PAIN Last Admin: 10/31/16 07:01 Dose: 1 each Olanzapine (Zyprexa -) 5 mg GT HS [facility] Last Admin: 11/01/16 21:20 Dose: 5 mg Ranitidine HCl (Zantac Oral Solution -) 150 mg GT DAILY [facility] Last Admin: 11/02/16 11:52 Dose: 150 mg - Objective Vital Signs: Vital Signs Temperature 99.5 F 11/02/16 13:49 Pulse Rate 100 H 11/02/16 13:49 Respiratory Rate 20 11/02/16 13:49 Blood Pressure 123/66 11/02/16 13:49 O2 Sat by Pulse Oximetry (%) 99 11/01/16 21:00 Constitutional: Yes: Well Nourished, No Distress, Calm Cardiovascular: Yes: Regular Rate and Rhythm Respiratory: Yes: Regular Musculoskeletal: Yes: WNL Extremities: Yes: WNL Edema: No Wound/Incision: Yes: Dressing Dry and Intact Labs: CBC, BMP 11/01/16 06:00 11/01/16 06:00 INR, PTT INR 1.04 (0.82-1.09) 10/28/16 03:27 Problem List - Problems (1) Anemia Assessment/Plan: -received 2 units of PRBC this admission, was febrile after blood transfusion, febrile since yesterday -H/H stable -iron studies ok -labs in AM -stool OB negative Code(s): D64.9 - ANEMIA, UNSPECIFIED Qualifiers: Anemia type: iron deficiency Iron deficiency anemia type: unspecified iron deficiency Qualified Code(s): D50.9 - Iron deficiency anemia, unspecified (2) Decubitus ulcer Assessment/Plan: -WC- MRSA and Ecoli Microbiology 10/30/16 14:30 Gram Stain - Final Coccyx Wound Culture - Preliminary Escherichia Coli Esbl [employer] 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 10/28/16 16:30 Blood Culture - Preliminary Blood - Peripheral Venous NO GROWTH OBTAINED AFTER 96 HOURS, INCUBATION TO CONTINUE FOR 1 DAYS. 10/30/16 15:35 Blood Culture - Preliminary Blood - Peripheral Venous NO GROWTH OBTAINED AFTER 48 HOURS, INCUBATION TO CONTINUE FOR 3 DAYS. 10/30/16 15:35 Blood Culture - Preliminary Blood - Peripheral Venous NO GROWTH OBTAINED AFTER 48 HOURS, INCUBATION TO CONTINUE FOR 3 DAYS. -seen by vascular -santyl -offloading from the area Code(s): L89.90 - PRESSURE ULCER OF UNSPECIFIED SITE, UNSPECIFIED STAGE Qualifiers: Pressure ulcer location: buttock (3) C. difficile diarrhea Code(s): A04.7 - ENTEROCOLITIS DUE TO CLOSTRIDIUM DIFFICILE (4) UTI (urinary tract infection) Assessment/Plan: -positive for Kleb P. -received gentamicin and vanco -ID on board Code(s): N39.0 - URINARY TRACT INFECTION, SITE NOT SPECIFIED Qualifiers: Urinary tract infection type: acute cystitis Hematuria presence: without hematuria Qualified Code(s): N30.00 - Acute cystitis without hematuria (5) Hyperkalemia Assessment/Plan: -borderline -secondary to renal insufficiency? -renal on board Code(s): E87.5 - HYPERKALEMIA Assessment/Plan UC-Kleb P BC-negative WC-MRSA and E. coli ID, Wound and renal consult abx as per ID wound care santyl tylenol for fever over 100.0F labs in AM
[2016-11-02] MEDS: COLLAGENASE CLOSTRIDIUM HIST. 30 GRAMS TUBE TP SCH (17:42)
[2016-11-02] MEDS: OLANZapine 5 MG TABLET GT SCH (21:29)
[2016-11-02] MEDS: fentaNYL 12mcg/hr PATCH.TD72 TD SCH (21:30)
[2016-11-02] MEDS: INSULIN DETEMIR 100 UNITS/ML MDV SQ SCH (21:34)
[2016-11-03] MEDS: ACETAMINOPHEN 650 MG/20.3 ML ORAL SOLUTION (CUPS) PO PRN ×3 (03:29→18:06)
[2016-11-03] MEDS: INSULIN SLIDING SCALE (NOVOLOG) 1 VIAL SQ SCH ×4 (06:03→21:35)
[2016-11-03] MEDS: FENTANYL PATCH WASTE TD PRN (07:21)
[2016-11-03 07:45] LABS: MCH 29.5 pg (25.7-33.7); MCHC 31.7 g/dl (32.0-36.0); MEAN CELL VOLUME 93.2 fl (80-96); MEAN PLT VOLUME 9.1 fl (7.5-11.1); PLATELET COUNT 414 K/MM3 (134-434); RDW 21.1 % (11.6-15.6)
[2016-11-03 08:08] LABS: ALBUMIN 1.9 g/dl (3.4-5.0); ANION GAP 8 (8-16); CALCIUM 8.7 mg/dL (8.5-10.1); CO2 26 mmol/L (21-32)
[2016-11-03 08:12] LABS: ALK PHOS 170 U/L (45-117); BILIRUBIN,TOTAL 0.6 mg/dL (0.2-1.0); CREATININE 1.1 mg/dL (0.55-1.02); SGOT/AST 18 U/L (15-37); SGPT/ALT 21 U/L (12-78); TOT PROT 7.9 g/dl (6.4-8.2)
[2016-11-03 08:26] LABS: GLUCOSE,RANDOM 330 mg/dL (74-106)
[2016-11-03] MEDS: AMINO ACIDS/PROTEIN HYDROLYS 30 ML LIQUID.PKT PO SCH ×2 (08:40→18:06)
--- NOTE | 2016-11-03 09:09 | PN ---
Progress Note, Physician History of Present Illness: fever weakness lethargic - Current Medication List Current Medications: Active Medications Acetaminophen (Tylenol Oral Solution -) 650 mg PO Q6H PRN PRN Reason: FEVER OR PAIN Last Admin: 11/03/16 03:29 Dose: 650 mg Amino Acids (Prosource No Carb Liquid Pkt) 30 ml PO BID@0800,1730 [facility] Last Admin: 11/03/16 08:40 Dose: 30 ml Ascorbic Acid (Vitamin C Oral Solution -) 500 mg GT BID [facility] Last Admin: 11/02/16 21:30 Dose: 500 mg Collagenase (Santyl -) 1 applic TP DAILY [facility] Last Admin: 11/02/16 17:42 Dose: 1 appful Doxazosin Mesylate (Cardura -) 2 mg GT DAILY [facility] Last Admin: 11/02/16 11:54 Dose: 2 mg Escitalopram Oxalate (Lexapro Oral Solution -) 5 mg GT DAILY [facility] Last Admin: 11/02/16 11:52 Dose: 5 mg Fentanyl (Duragesic 12mcg Patch -) 1 patch TD Q72H [facility] Last Admin: 11/02/16 21:30 Dose: 1 patch Ferrous Sulfate (Feosol) 300 mg GT DAILY [facility] Last Admin: 11/02/16 11:52 Dose: 300 mg Heparin Sodium (Porcine) (Heparin -) 5,000 unit SQ BID [facility] Last Admin: 11/02/16 21:30 Dose: 5,000 unit Sodium Chloride (1/2 Normal Saline) 1,000 mls @ 75 mls/hr IV ASDIR [facility] Insulin Aspart (Novolog Vial Sliding Scale -) 1 vial SQ ACHS [facility] PRN Reason: Protocol Last Admin: 11/03/16 06:03 Dose: 8 units Insulin Detemir (Levemir Vial) 20 units SQ HS [facility] Lactobacillus Acidophilus (Bacid -) 1 tab GT DAILY [facility] Last Admin: 11/02/16 11:52 Dose: 1 tab Miscellaneous (Duragesic Patch Waste) 1 each TD PRN PRN PRN Reason: PAIN Last Admin: 11/03/16 07:21 Dose: 1 each Olanzapine (Zyprexa -) 5 mg GT HS [facility] Last Admin: 11/02/16 21:29 Dose: 5 mg Ranitidine HCl (Zantac Oral Solution -) 150 mg GT DAILY [facility] Last Admin: 11/02/16 11:52 Dose: 150 mg - Objective Vital Signs: Vital Signs Temperature 99.7 F H 11/03/16 08:25 Pulse Rate 97 H 11/03/16 08:25 Respiratory Rate 18 11/03/16 08:25 Blood Pressure 110/59 11/03/16 08:25 O2 Sat by Pulse Oximetry (%) 98 11/02/16 21:00 Cardiovascular: Yes: S1, S2 Respiratory: Yes: Diminished Gastrointestinal: Yes: Normal Bowel Sounds, Soft Edema: No Labs: CBC, BMP 11/03/16 05:35 11/03/16 05:35 INR, PTT INR 1.04 (0.82-1.09) 10/28/16 03:27 Problem List - Problems (1) Anemia Assessment/Plan: TRANSFUSE PRBC MONITOR CBC WILL D/W FAMILY POOR CANDIDATE FOR INVASIVE PROCEDURES Code(s): D64.9 - ANEMIA, UNSPECIFIED Qualifiers: Anemia type: iron deficiency Iron deficiency anemia type: unspecified iron deficiency Qualified Code(s): D50.9 - Iron deficiency anemia, unspecified (2) CHF (congestive heart failure) Assessment/Plan: MONITOR NO EVIDENCE OF FAILURE CXR Code(s): I50.9 - HEART FAILURE, UNSPECIFIED Qualifiers: Congestive heart failure type: diastolic Congestive heart failure chronicity: chronic Qualified Code(s): I50.32 - Chronic diastolic ( congestive) heart failure (3) Decubitus ulcer Assessment/Plan: surgery on case Code(s): L89.90 - PRESSURE ULCER OF UNSPECIFIED SITE, UNSPECIFIED STAGE Qualifiers: Pressure ulcer location: buttock (4) Diabetes Assessment/Plan: BGM INCREASE LEVEMIR ENDO Code(s): E11.9 - TYPE 2 DIABETES MELLITUS WITHOUT COMPLICATIONS Qualifiers: Diabetes mellitus type: type 2 Diabetes mellitus complication detail: with other skin ulcer (5) S/P bilateral below knee amputation Code(s): Z89.512 - ACQUIRED ABSENCE OF LEFT LEG BELOW KNEE Z89.511 - ACQUIRED ABSENCE OF RIGHT LEG BELOW KNEE (6) Hyperkalemia Assessment/Plan: KAYAXELATE IVF MONITOR Code(s): E87.5 - HYPERKALEMIA
[2016-11-03] MEDS ORDERED: SODIUM POLYSTYRENE SULFONATE 15 GM/60 ML BOTTLE PO ONE (09:30)
[2016-11-03] MEDS ORDERED: PT OWN MED DRAWER 7, Y5N ONE (10:43)
[2016-11-03] MEDS: HEPARIN NA (PORCINE) 5,000 UNITS/ML 1ML VIAL SQ SCH ×2 (10:46→21:31)
[2016-11-03] MEDS: FERROUS SO4 300 MG/5 ML ORAL SOLN UNIT DOSE CUPS GT SCH (10:46)
[2016-11-03] MEDS: LACTOBACILLUS ACIDOPHILUS 1 EACH TAB (FP) GT SCH (10:47)
[2016-11-03] MEDS: DOXAZOSIN MESYLATE 2 MG TABLET (FP) GT SCH (10:48)
[2016-11-03] MEDS: ESCITALOPRAM OXALATE 5 MG/5 ML GT SCH (10:49)
[2016-11-03] MEDS: RANITIDINE HCL 150 MG/10 ML UNIT-DOSE CUP GT SCH (10:49)
[2016-11-03] MEDS: ASCORBIC ACID 500 MG/5 ML UNIT DOSE CUP GT SCH ×2 (10:50→21:37)
[2016-11-03] MEDS: COLLAGENASE CLOSTRIDIUM HIST. 30 GRAMS TUBE TP SCH (10:51)
[2016-11-03] MEDS: SODIUM CHLORIDE 0.45% 1,000 ML IV SCH (10:54)
[2016-11-03] MEDS ORDERED: INSULIN (NOVOLOG) ASPART 100 UNITS/ML 10ML VIAL ONE ×4 (11:35→21:03)
[2016-11-03 12:23] LABS: PLATELET ESTIMATE ADEQUATE (NORMAL)
[2016-11-03] MEDS ORDERED: GENTAMICIN INJECTION 100 MG in SODIUM CHLORIDE 97.5 ML IVPB ONE (17:14)
--- NOTE | 2016-11-03 17:16 | PN ---
Progress Note (short form) - Note Progress Note: continues with intermittent fevers lethargic Vital Signs Period Temp Pulse Resp BP Sys/Chávez Pulse Ox Last 24 Hr 98.2 F-102.2 F 97-109 18-20 110-121/59-68 98 cor-rrr lungs clear abd soft,nt gt site clean, no erythema bilateral aka sacral ulcer clean (per surgery) CBC, BMP 11/03/16 05:35 Microbiology 10/30/16 15:35 Blood - Peripheral Venous Blood Culture - Preliminary NO GROWTH OBTAINED AFTER 96 HOURS, INCUBATION TO CONTINUE FOR 1 DAYS. 10/30/16 15:35 Blood - Peripheral Venous Blood Culture - Preliminary NO GROWTH OBTAINED AFTER 96 HOURS, INCUBATION TO CONTINUE FOR 1 DAYS. 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 S Aureus Enterococcus Faecalis Diphtheroid/Corynebacterium 10/30/16 16:50 Urine - Urine - Catheterized Urine Culture - Final Klebsiella Pneumoniae - Esbl 10/29/16 01:30 Urine - Urine - Catheterized Urine Culture - Final Contaminated: Please Repeat Klebsiella Pneumoniae - Esbl 10/28/16 11:20 Stool Clostridium difficile Antigen (JAKY) - Final 10/28/16 11:20 Stool Clostridium difficile Toxin Assay - Final Current Medications Acetaminophen (Tylenol Oral Solution -) 650 mg PO Q6H PRN PRN Reason: FEVER OR PAIN Last Admin: 11/03/16 11:14 Dose: 650 mg Amino Acids (Prosource No Carb Liquid Pkt) 30 ml PO BID@0800,1730 [facility] Last Admin: 11/03/16 08:40 Dose: 30 ml Ascorbic Acid (Vitamin C Oral Solution -) 500 mg GT BID [facility] Last Admin: 11/03/16 10:50 Dose: 500 mg Collagenase (Santyl -) 1 applic TP DAILY [facility] Last Admin: 11/03/16 10:51 Dose: 1 appful Doxazosin Mesylate (Cardura -) 2 mg GT DAILY [facility] Last Admin: 11/03/16 10:48 Dose: 2 mg Escitalopram Oxalate (Lexapro Oral Solution -) 5 mg GT DAILY [facility] Last Admin: 11/03/16 10:49 Dose: 5 mg Fentanyl (Duragesic 12mcg Patch -) 1 patch TD Q72H [facility] Last Admin: 11/02/16 21:30 Dose: 1 patch Ferrous Sulfate (Feosol) 300 mg GT DAILY [facility] Last Admin: 11/03/16 10:46 Dose: 300 mg Heparin Sodium (Porcine) (Heparin -) 5,000 unit SQ BID [facility] Last Admin: 11/03/16 10:46 Dose: 5,000 unit Sodium Chloride (1/2 Normal Saline) 1,000 mls @ 75 mls/hr IV ASDIR [facility] Last Admin: 11/03/16 10:54 Dose: 75 mls/hr Insulin Aspart (Novolog Vial Sliding Scale -) 1 vial SQ ACHS [facility] PRN Reason: Protocol Last Admin: 11/03/16 11:03 Dose: 8 units Insulin Detemir (Levemir Vial) 20 units SQ HS [facility] Lactobacillus Acidophilus (Bacid -) 1 tab GT DAILY [facility] Last Admin: 11/03/16 10:47 Dose: 1 tab Miscellaneous (Duragesic Patch Waste) 1 each TD PRN PRN PRN Reason: PAIN Last Admin: 11/03/16 07:21 Dose: 1 each Olanzapine (Zyprexa -) 5 mg GT HS [facility] Last Admin: 11/02/16 21:29 Dose: 5 mg Ranitidine HCl (Zantac Oral Solution -) 150 mg GT DAILY [facility] Last Admin: 11/03/16 10:49 Dose: 150 mg a/p cdiff colitis uti- CRE reculture resume flagyl via GT redose gentamicin for UTI overall prognosis is poor strict contact isolation
[2016-11-03] MEDS: metroNIDAZOLE 250 MG TABLET GT SCH ×2 (18:06→21:31)
[2016-11-03 18:07] LABS: ANION GAP 7 (8-16); CALCIUM 8.9 mg/dL (8.5-10.1); CO2 28 mmol/L (21-32); CREATININE 1.1 mg/dL (0.55-1.02)
[2016-11-03 18:29] LABS: GLUCOSE,RANDOM 394 mg/dL (74-106)
[2016-11-03] MEDS: OLANZapine 5 MG TABLET GT SCH (21:31)
[2016-11-03] MEDS ORDERED: INSULIN DETEMIR 100 UNITS/ML MDV SQ SCH (22:00)
--- NOTE | 2016-11-03 22:34 | CONSULT ---
Consult Consult Specialty:: endocrine Referred by:: dr.annabi velasquez Reason for Consultation:: diabetes mellitus - History of Present Illness Chief Complaint: high sugars History of Present Illness: 81-year-old female with history of acute kidney failure, hyperglycemia, diabetes , hypertension, COPD, MRSA, C. 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 Cardio/Vascular: Yes: Aortic Stenosis, CHF, HTN, Hyperlipdemia Pulmonary: Yes: COPD Gastrointestinal: Yes: GERD Renal/: Yes: Renal Inusuff ...: No Endocrine: Yes: Diabetes Mellitus Dermatology: Yes: Other (PU) - Alcohol/Substance Use Hx Alcohol Use: No - Smoking History Smoking history: Never smoked Have you smoked in the past 12 months: No Aproximately how many cigarettes per day: 0 - Social History Usual Living Arrangement: [facility] History of Recent Travel: No Home Medications - Allergies Allergies/Adverse Reactions: Allergies Allergy/AdvReac Type Severity Reaction Status Date / Time No Known Drug Allergies Allergy Verified 10/28/16 02:18 - Home Medications Home Medications: Ambulatory Orders Aa/[place] Ivone,Whey/Arg/C/Zn/Cu [Lps Critical Care Liquid] 960 ml GT BID Acetaminophen Oral Solution [Tylenol 160mg/5mL Oral Solution -] 640 mg PO Q6H PRN 09/28/16 Ascorbic Acid [Vitamin C] 500 mg GT TID 09/28/16 Doxazosin Mesylate 2 mg GT HS 09/28/16 Escitalopram Oxalate [Lexapro 5mg/5mL Oral Solution -] 10 mg GT DAILY 09/28/16 Famotidine 20 mg GT DAILY 09/28/16 Fentanyl 1 each TD Q72H 09/28/16 Ferrous Sulfate *Liquid* [Feosol *Liquid*] 330 mg GT TID 09/28/16 Insulin Detemir [Levemir Flextouch] 12 unit SQ HS 09/28/16 Lactobacillus Acidophilus [Acidophilus] 1 each GT BID 09/28/16 Olanzapine [Zyprexa] 5 mg GT HS 09/28/16 Vitamin B Comp W-C [Nephro-Rafael -] 1 tablet GT DAILY 09/28/16 Collagenase Clostridium Hist. [Santyl -] 1 applic TP DAILY tube 10/08/16 Insulin Sliding Scale [Novolog Vial Sliding Scale -] 1 vial SQ ACHS units 10/08 Naph,Mb-Db/K pH,Mbdb [PHOS-NaK PACKET -] 1 packet GT TID packet 10/08/16 Heparin - 5,000 units IJ BID 10/28/16 Review of Systems - Review of Systems Constitutional: reports: Lethargy, Unintentional Wgt. Loss, Weakness Physical Exam Vital Signs: Vital Signs Temperature 99.3 F 11/03/16 19:30 Pulse Rate 108 H 11/03/16 19:30 Respiratory Rate 18 11/03/16 19:30 Blood Pressure 110/63 11/03/16 19:30 O2 Sat by Pulse Oximetry (%) 99 11/03/16 09:00 Constitutional: Yes: Anxious Eyes: Yes: EOM Intact HENT: Yes: Normocephalic Neck: Yes: Trachea Midline Cardiovascular: Yes: Regular Rate and Rhythm Respiratory: Yes: CTA Bilaterally Gastrointestinal: Yes: Normal Bowel Sounds ...Rectal Exam: Yes: Deferred Renal/: Yes: WNL Breast(s): Yes: WNL Musculoskeletal: Yes: Muscle Pain, Muscle Weakness, Other (bl bka) Extremities: Yes: Delayed Capillary Refill, Pallor Neurological: Yes: Alert Labs: CBC, BMP 11/03/16 05:35 11/03/16 16:00 Problem List - Problems (1) (HFpEF) heart failure with preserved ejection fraction Code(s): I50.9 - HEART FAILURE, UNSPECIFIED (2) Acute bilateral deep vein thrombosis (DVT) of femoral veins Code(s): I82.413 - ACUTE EMBOLISM AND THROMBOSIS OF FEMORAL VEIN, BILATERAL (3) Altered mental status Code(s): R41.82 - ALTERED MENTAL STATUS, UNSPECIFIED (4) Anemia aplastic aregenerative Code(s): D61.9 - APLASTIC ANEMIA, UNSPECIFIED Assessment/Plan Current Active Problems Anemia (Acute) C. difficile diarrhea (Acute) Hyperkalemia (Acute) diabetes mellitus hyperglycemia bl bka sepsis Abnormal Lab Results 11/03/16 11/03/16 11/03/16 05:35 05:35 16:00 MCHC 31.7 L RDW 21.1 H Sodium 146 H Potassium 6.1 H* 5.3 H Chloride 111 H 111 H Anion Gap 7 L BUN 89 H 86 H Creatinine 1.1 H 1.1 H Random Glucose 330 H* 394 H* Alkaline Phosphatase 170 H D Albumin 1.9 L Laboratory Results - last 24 hr 11/03/16 11/03/16 11/03/16 05:35 05:35 05:35 WBC 9.0 RBC 3.68 Hgb 10.9 Hct 34.3 MCV 93.2 MCH 29.5 MCHC 31.7 L RDW 21.1 H Plt Count 414 MPV 9.1 Neutrophils % 59.0 Lymphocytes % 35.0 Monocytes % 4.0 Eosinophils % 2.0 Differential Comment Manual diff done Platelet Estimate Adequate Sodium 145 Potassium 6.1 H* Chloride 111 H Carbon Dioxide 26 Anion Gap 8 BUN 89 H Creatinine 1.1 H Creat Clearance w eGFR 47.79 POC Glucometer Random Glucose 330 H* Calcium 8.7 Total Bilirubin 0.6 D AST 18 D ALT 21 D Alkaline Phosphatase 170 H D Total Protein 7.9 Albumin 1.9 L Gentamicin Trough 1.6 D 11/03/16 11/03/16 11/03/16 06:02 11:01 16:00 WBC RBC Hgb Hct MCV MCH MCHC RDW Plt Count MPV Neutrophils % Lymphocytes % Monocytes % Eosinophils % Differential Comment Platelet Estimate Sodium 146 H Potassium 5.3 H Chloride 111 H Carbon Dioxide 28 Anion Gap 7 L BUN 86 H Creatinine 1.1 H Creat Clearance w eGFR POC Glucometer 349 312 Random Glucose 394 H* Calcium 8.9 Total Bilirubin AST ALT Alkaline Phosphatase Total Protein Albumin Gentamicin Trough 11/03/16 11/03/16 17:31 21:33 WBC RBC Hgb Hct MCV MCH MCHC RDW Plt Count MPV Neutrophils % Lymphocytes % Monocytes % Eosinophils % Differential Comment Platelet Estimate Sodium Potassium Chloride Carbon Dioxide Anion Gap BUN Creatinine Creat Clearance w eGFR POC Glucometer 376 342 Random Glucose Calcium Total Bilirubin AST ALT Alkaline Phosphatase Total Protein Albumin Gentamicin Trough plan: levemir 22 units am levemir 15 units hs bgm coverage novolog scale dosing
[2016-11-04] MEDS: ACETAMINOPHEN 650 MG/20.3 ML ORAL SOLUTION (CUPS) PO PRN ×3 (02:14→17:40)
[2016-11-04] MEDS: SODIUM CHLORIDE 0.45% 1,000 ML IV SCH ×3 (02:14→23:57)
[2016-11-04] MEDS: metroNIDAZOLE 250 MG TABLET GT SCH ×3 (06:18→22:18)
[2016-11-04] MEDS: INSULIN SLIDING SCALE (NOVOLOG) 1 VIAL SQ SCH ×4 (06:20→22:12)
[2016-11-04] MEDS: INSULIN DETEMIR 100 UNITS/ML MDV SQ SCH ×2 (06:20→22:12)
[2016-11-04 07:15] LABS: MCH 29.3 pg (25.7-33.7); MCHC 31.5 g/dl (32.0-36.0); MEAN CELL VOLUME 93.1 fl (80-96); MEAN PLT VOLUME 9.2 fl (7.5-11.1); PLATELET COUNT 364 K/MM3 (134-434); RDW 20.8 % (11.6-15.6); WHITE BLOOD COUNT 10.8 K/mm3 (4.0-10.0)
[2016-11-04 07:52] LABS: ALBUMIN 1.9 g/dl (3.4-5.0); ANION GAP 8 (8-16); CALCIUM 8.8 mg/dL (8.5-10.1); CO2 25 mmol/L (21-32); SGOT/AST 27 U/L (15-37); SGPT/ALT 22 U/L (12-78)
[2016-11-04 07:54] LABS: ALK PHOS 165 U/L (45-117); BILIRUBIN,TOTAL 0.3 mg/dL (0.2-1.0); TOT PROT 7.6 g/dl (6.4-8.2)
[2016-11-04] MEDS: AMINO ACIDS/PROTEIN HYDROLYS 30 ML LIQUID.PKT PO SCH ×2 (08:08→17:41)
[2016-11-04 08:11] LABS: GLUCOSE,RANDOM 315 mg/dL (74-106)
[2016-11-04 09:00] LABS: PLATELET ESTIMATE ADEQUATE (NORMAL)
--- NOTE | 2016-11-04 09:46 | PN ---
Progress Note (short form) - Note Progress Note: ID Metronidazole & Gentamicin Selected Entries 11/04/16 11/04/16 11/04/16 02:23 03:30 06:00 Temperature 100.1 F H 99.8 F H 100.1 F H Lung Clear Cor S1 S2 ABd Soft Skin decubitus ulcer Microbiology 10/30/16 16:50 Urine - Urine - Catheterized Urine Culture - Final Klebsiella Pneumoniae - Esbl Laboratory Tests 11/04/16 11/04/16 05:35 05:35 WBC 10.8 H Hgb 10.8 Plt Count 364 Creatinine 1.0 Creat Clearance w eGFR 53.35 Random Glucose 315 H* D Albumin 1.9 L Assessment Multidrug resistant organism/ UTI ? C diff infection Low grade temp Plan Continue current therapy Anastacia VERMA
[2016-11-04] MEDS ORDERED: PT OWN MED DRAWER 7, Y5N ONE ×2 (09:56→21:27)
[2016-11-04] MEDS: FERROUS SO4 300 MG/5 ML ORAL SOLN UNIT DOSE CUPS GT SCH (10:13)
[2016-11-04] MEDS: HEPARIN NA (PORCINE) 5,000 UNITS/ML 1ML VIAL SQ SCH (10:13)
[2016-11-04] MEDS: RANITIDINE HCL 150 MG/10 ML UNIT-DOSE CUP GT SCH (10:13)
[2016-11-04] MEDS: ASCORBIC ACID 500 MG/5 ML UNIT DOSE CUP GT SCH ×2 (10:13→22:19)
[2016-11-04] MEDS: COLLAGENASE CLOSTRIDIUM HIST. 30 GRAMS TUBE TP SCH (10:14)
[2016-11-04] MEDS: LACTOBACILLUS ACIDOPHILUS 1 EACH TAB (FP) GT SCH (10:14)
[2016-11-04] MEDS: DOXAZOSIN MESYLATE 2 MG TABLET (FP) GT SCH (10:14)
[2016-11-04] MEDS: ESCITALOPRAM OXALATE 5 MG/5 ML GT SCH (10:14)
--- NOTE | 2016-11-04 10:37 | PN ---
Progress Note, Physician Chief Complaint: Anemia History of Present Illness: NAD, comfortable in bed, still low grade temps - Current Medication List Current Medications: Active Medications Acetaminophen (Tylenol Oral Solution -) 650 mg PO Q6H PRN PRN Reason: FEVER OR PAIN Last Admin: 11/04/16 02:14 Dose: 650 mg Amino Acids (Prosource No Carb Liquid Pkt) 30 ml PO BID@0800,1730 [facility] Last Admin: 11/04/16 08:08 Dose: 30 ml Ascorbic Acid (Vitamin C Oral Solution -) 500 mg GT BID [facility] Last Admin: 11/03/16 21:37 Dose: 500 mg Collagenase (Santyl -) 1 applic TP DAILY [facility] Last Admin: 11/03/16 10:51 Dose: 1 appful Doxazosin Mesylate (Cardura -) 2 mg GT DAILY [facility] Last Admin: 11/03/16 10:48 Dose: 2 mg Escitalopram Oxalate (Lexapro Oral Solution -) 5 mg GT DAILY [facility] Last Admin: 11/03/16 10:49 Dose: 5 mg Fentanyl (Duragesic 12mcg Patch -) 1 patch TD Q72H [facility] Last Admin: 11/02/16 21:30 Dose: 1 patch Ferrous Sulfate (Feosol) 300 mg GT DAILY [facility] Last Admin: 11/03/16 10:46 Dose: 300 mg Sodium Chloride (1/2 Normal Saline) 1,000 mls @ 75 mls/hr IV ASDIR [facility] Last Admin: 11/04/16 02:14 Dose: 75 mls/hr Insulin Aspart (Novolog Vial Sliding Scale -) 1 vial SQ ACHS [facility] PRN Reason: Protocol Last Admin: 11/04/16 06:20 Dose: 8 units Insulin Detemir (Levemir Vial) 15 units SQ HS [facility] Insulin Detemir (Levemir Vial) 22 units SQ AM [facility] Last Admin: 11/04/16 06:20 Dose: 22 unit Lactobacillus Acidophilus (Bacid -) 1 tab GT DAILY [facility] Last Admin: 11/03/16 10:47 Dose: 1 tab Metronidazole (Flagyl -) 500 mg GT TID [facility] Last Admin: 11/04/16 06:18 Dose: 500 mg Miscellaneous (Duragesic Patch Waste) 1 each TD PRN PRN PRN Reason: PAIN Last Admin: 11/03/16 07:21 Dose: 1 each Olanzapine (Zyprexa -) 5 mg GT HS [facility] Last Admin: 11/03/16 21:31 Dose: 5 mg Ranitidine HCl (Zantac Oral Solution -) 150 mg GT DAILY [facility] Last Admin: 11/03/16 10:49 Dose: 150 mg - Objective Vital Signs: Vital Signs Temperature 100.1 F H 11/04/16 06:00 Pulse Rate 103 H 11/04/16 06:00 Respiratory Rate 20 11/04/16 06:00 Blood Pressure 105/56 11/04/16 06:00 O2 Sat by Pulse Oximetry (%) 97 11/03/16 21:00 Constitutional: Yes: Well Nourished, No Distress, Calm Cardiovascular: Yes: Regular Rate and Rhythm Respiratory: Yes: Regular Genitourinary: Yes: Incontinence Musculoskeletal: Yes: WNL Extremities: Yes: WNL Labs: CBC, BMP 11/04/16 05:35 11/04/16 05:35 INR, PTT INR 1.04 (0.82-1.09) 10/28/16 03:27 Problem List - Problems (1) Anemia Assessment/Plan: -received 2 units of PRBC this admission, was febrile after blood transfusion, febrile since yesterday -H/H stable -iron studies ok -labs in AM -stool OB negative Code(s): D64.9 - ANEMIA, UNSPECIFIED Qualifiers: Anemia type: iron deficiency Iron deficiency anemia type: unspecified iron deficiency Qualified Code(s): D50.9 - Iron deficiency anemia, unspecified (2) Decubitus ulcer Assessment/Plan: -- MRSA and Ecoli Microbiology 10/30/16 14:30 Gram Stain - Final Coccyx Wound Culture - Preliminary 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 10/28/16 16:30 Blood Culture - Preliminary Blood - Peripheral Venous NO GROWTH OBTAINED AFTER 96 HOURS, INCUBATION TO CONTINUE FOR 1 DAYS. 10/30/16 15:35 Blood Culture - Preliminary Blood - Peripheral Venous NO GROWTH OBTAINED AFTER 48 HOURS, INCUBATION TO CONTINUE FOR 3 DAYS. 10/30/16 15:35 Blood Culture - Preliminary Blood - Peripheral Venous NO GROWTH OBTAINED AFTER 48 HOURS, INCUBATION TO CONTINUE FOR 3 DAYS. -seen by vascular -terrieyl -offloading from the area Code(s): L89.90 - PRESSURE ULCER OF UNSPECIFIED SITE, UNSPECIFIED STAGE Qualifiers: Pressure ulcer location: buttock (3) C. difficile diarrhea Assessment/Plan: -seen by ID -yl po Code(s): A04.7 - ENTEROCOLITIS DUE TO CLOSTRIDIUM DIFFICILE (4) UTI (urinary tract infection) Assessment/Plan: -positive for Kleb P. -IV abx -ID on board Code(s): N39.0 - URINARY TRACT INFECTION, SITE NOT SPECIFIED Qualifiers: Urinary tract infection type: acute cystitis Hematuria presence: without hematuria Qualified Code(s): N30.00 - Acute cystitis without hematuria (5) Hyperkalemia Assessment/Plan: -borderline -secondary to renal insufficiency? -renal on board Code(s): E87.5 - HYPERKALEMIA Assessment/Plan UC-Kleb P BC-negative WC-MRSA and E. coli ID, Wound and renal consult abx as per ID wound care heriberto tylenol for fever over 100.0F labs in AM renal consult
[2016-11-04 11:27] VITALS: BMI 26.5
--- NOTE | 2016-11-04 11:27 | CON.NEP ---
Consult Consult Specialty:: Nephrology (Hugh/Jos eJuan) Referred by:: Rema Lanier Reason for Consultation:: Hypernatremia, Azotemia, Hyperkalemia - History of Present Illness Chief Complaint: Anemia on outpatient labs History of Present Illness: This is a 81 year old woman with is Portuguease speaking with PMhx of Multiple GIANNI's, Hypernatremia, Hypertension, PVD s/p b/l Amputations, DM who presented with abnormal outpatient labs and found to be anemia requiring PRBC transfusion and now with persistent hyperkalemia, hypernatremia and azotemia. Pt is currently on Tube feeds with Glucerna 1.5. Pt gettign 20cc of free water flushes per hour. Pt unable to provide any history because of clinical status. 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 Cardio/Vascular: Yes: Aortic Stenosis, CHF, HTN, Hyperlipdemia Pulmonary: Yes: COPD Gastrointestinal: Yes: GERD Renal/: Yes: Renal Inusuff ...: No Endocrine: Yes: Diabetes Mellitus Dermatology: Yes: Other (PU) - Alcohol/Substance Use Hx Alcohol Use: No - Smoking History Smoking history: Never smoked Have you smoked in the past 12 months: No Aproximately how many cigarettes per day: 0 - Social History Usual Living Arrangement: [facility] History of Recent Travel: No Home Medications - Allergies Allergies/Adverse Reactions: Allergies Allergy/AdvReac Type Severity Reaction Status Date / Time No Known Drug Allergies Allergy Verified 10/28/16 02:18 - Home Medications Home Medications: Ambulatory Orders Aa/[place] Ivone,Whey/Arg/C/Zn/Cu [Lps Critical Care Liquid] 960 ml GT BID Acetaminophen Oral Solution [Tylenol 160mg/5mL Oral Solution -] 640 mg PO Q6H PRN 09/28/16 Ascorbic Acid [Vitamin C] 500 mg GT TID 09/28/16 Doxazosin Mesylate 2 mg GT HS 09/28/16 Escitalopram Oxalate [Lexapro 5mg/5mL Oral Solution -] 10 mg GT DAILY 09/28/16 Famotidine 20 mg GT DAILY 09/28/16 Fentanyl 1 each TD Q72H 09/28/16 Ferrous Sulfate *Liquid* [Feosol *Liquid*] 330 mg GT TID 09/28/16 Insulin Detemir [Levemir Flextouch] 12 unit SQ HS 09/28/16 Lactobacillus Acidophilus [Acidophilus] 1 each GT BID 09/28/16 Olanzapine [Zyprexa] 5 mg GT HS 09/28/16 Vitamin B Comp W-C [Nephro-Rafael -] 1 tablet GT DAILY 09/28/16 Collagenase Clostridium Hist. [Santyl -] 1 applic TP DAILY tube 10/08/16 Insulin Sliding Scale [Novolog Vial Sliding Scale -] 1 vial SQ ACHS units 10/08 Naph,Mb-Db/K pH,Mbdb [PHOS-NaK PACKET -] 1 packet GT TID packet 10/08/16 Heparin - 5,000 units IJ BID 10/28/16 Review of Systems Unable to obtain ROS, reason: because of clincial statu Nephrology Consult - Height Height: 4 ft 6 in - Weight Weight: 110 lb - BMI Body Mass Index (BMI): 26.5 - Lab Results CBC,BMP: CBC, BMP 11/04/16 05:35 11/04/16 05:35 Anion Gap: Anion Gap Anion Gap 8 (8-16) 11/04/16 05:35 - Imaging Chest X-ray: Report Reviewed - Physical Examination Vital Signs: Vital Signs Temperature 100.1 F H 11/04/16 06:00 Pulse Rate 103 H 11/04/16 06:00 Respiratory Rate 20 11/04/16 06:00 Blood Pressure 105/56 11/04/16 06:00 O2 Sat by Pulse Oximetry (%) 97 11/03/16 21:00 Constitutional: Yes: No Distress, Cachectic (mildly) Eyes: Yes: Conjunctiva Clear HENT: Yes: Atraumatic Neck: Yes: Supple Cardiovascular: Yes: Regular Rate and Rhythm. No: Murmur, Rub Respiratory: Yes: Regular, CTA Bilaterally Gastrointestinal: Yes: Normal Bowel Sounds, Soft, Other (g-tube in place). No: Tenderness Renal/: No: Anuria, Bladder Distention, CVA Tenderness - Left, CVA Tenderness - Right, [place] Present Extremities: Yes: Amputation (b/L) Edema: No Neurological: Yes: Lethargy Problem List - Problems (1) Anemia Code(s): D64.9 - ANEMIA, UNSPECIFIED Qualifiers: Anemia type: iron deficiency Iron deficiency anemia type: unspecified iron deficiency Qualified Code(s): D50.9 - Iron deficiency anemia, unspecified (2) Hyperkalemia Code(s): E87.5 - HYPERKALEMIA (3) Azotemia Code(s): R79.89 - OTHER SPECIFIED ABNORMAL FINDINGS OF BLOOD CHEMISTRY (4) Hypernatremia Code(s): E87.0 - HYPEROSMOLALITY AND HYPERNATREMIA Assessment/Plan 81 year old woman with is Portuguease speaking with PMhx of Multiple GIANNI's, Hypernatremia, Hypertension, PVD s/p b/l Amputations, DM who presented with abnormal outpatient labs and found to be anemia requiring PRBC transfusion and now with persistent hyperkalemia, hypernatremia and azotemia. #Hypernatremia will need to increase free water intake continue 1/2 Ns at present rate (will not change to d5w at this time because of azotemia and likely salt deplted as well) increase free water with tube feeds to 30cc per hour and titate as tolerated #Hyperkalemia likely due to K content in tube feeds pt should be changed to low potassium tube feeds like Neprho or Osmolite will ask nutrition to follow up and make further recommendations no indication for kayexalate at this time #Azotemia from volume depletion continue hypotonic saline for now trend BUN/Cr and electrolytes #Acute on chronic anemia s/p PRBC trasnfusion Trend Hgb check iron stores thank you Will follow Vahid Manzano DO
[2016-11-04] MEDS ORDERED: GENTAMICIN 80 MG PREMIXED IVPB 100 ML IVPB ONE (16:30)
[2016-11-04] MEDS: OLANZapine 5 MG TABLET GT SCH (22:18)
[2016-11-05] MEDS: ACETAMINOPHEN 650 MG/20.3 ML ORAL SOLUTION (CUPS) PO PRN (01:02)
[2016-11-05] MEDS: SODIUM CHLORIDE 0.45% 1,000 ML IV SCH ×2 (02:34→12:23)
[2016-11-05] MEDS: INSULIN DETEMIR 100 UNITS/ML MDV SQ SCH ×2 (06:03→21:48)
[2016-11-05] MEDS: metroNIDAZOLE 250 MG TABLET GT SCH (06:04)
[2016-11-05] MEDS: INSULIN SLIDING SCALE (NOVOLOG) 1 VIAL SQ SCH ×4 (06:04→21:49)
[2016-11-05 07:40] LABS: MCH 29.9 pg (25.7-33.7); MCHC 32.4 g/dl (32.0-36.0); MEAN CELL VOLUME 92.4 fl (80-96); PLATELET COUNT 332 K/MM3 (134-434); RDW 20.4 % (11.6-15.6); WHITE BLOOD COUNT 10.3 K/mm3 (4.0-10.0)
[2016-11-05 07:58] LABS: ANION GAP 4 (8-16); CALCIUM 8.5 mg/dL (8.5-10.1); CO2 28 mmol/L (21-32); CREATININE 0.9 mg/dL (0.55-1.02); GLUCOSE,RANDOM 177 mg/dL (74-106); MAGNESIUM 2.5 mg/dL (1.8-2.4); PHOSPHOROUS 3.8 mg/dL (2.5-4.9)
--- NOTE | 2016-11-05 09:38 | PN ---
Progress Note (short form) - Note Progress Note: continues with intermittent fevers- trending down still with loose BMS 3-4 daily lethargic Vital Signs Period Temp Pulse Resp BP Sys/Chávez Pulse Ox Last 24 Hr 99.4 F-101.8 F 89-103 20-22 103-128/41-76 99 cor-rrr lungs clear abd soft,nt +GT bilateral AKA sacral ulcer CBC, BMP 11/05/16 06:00 11/05/16 06:00 Microbiology 11/03/16 19:50 Blood - Peripheral Venous Blood Culture - Preliminary NO GROWTH OBTAINED AFTER 24 HOURS, INCUBATION TO CONTINUE FOR 4 DAYS. 11/03/16 19:40 Blood - Peripheral Venous Blood Culture - Preliminary NO GROWTH OBTAINED AFTER 24 HOURS, INCUBATION TO CONTINUE FOR 4 DAYS. 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 S Aureus Enterococcus Faecalis Diphtheroid/Corynebacterium 10/30/16 16:50 Urine - Urine - Catheterized Urine Culture - Final Klebsiella Pneumoniae - Esbl 10/29/16 01:30 Urine - Urine - Catheterized Urine Culture - Final Contaminated: Please Repeat Klebsiella Pneumoniae - Esbl 10/28/16 11:20 Stool Clostridium difficile Antigen (JAKY) - Final 10/28/16 11:20 Stool Clostridium difficile Toxin Assay - Final a/p cdiff colitis uti- CRE repeat blood cultures negative continued loose stools and fevers switch to po vancomycin redose gentamicin for UTI 72 hours renal function is improved overall prognosis is poor strict contact isolation
[2016-11-05] MEDS ORDERED: GENTAMICIN INJECTION 100 MG in DEXTROSE 5%-WATER - 250 ML IVPB SCH (10:00)
--- NOTE | 2016-11-05 10:44 | PN ---
Progress Note, Physician Chief Complaint: Anemia History of Present Illness: NAD, comfortable in bed, still low grade temps - Current Medication List Current Medications: Active Medications Acetaminophen (Tylenol Oral Solution -) 650 mg PO Q6H PRN PRN Reason: FEVER OR PAIN Last Admin: 11/05/16 01:02 Dose: 650 mg Amino Acids (Prosource No Carb Liquid Pkt) 30 ml PO BID@0800,1730 [facility] Last Admin: 11/04/16 17:41 Dose: 30 ml Ascorbic Acid (Vitamin C Oral Solution -) 500 mg GT BID [facility] Last Admin: 11/04/16 22:19 Dose: 500 mg Collagenase (Santyl -) 1 applic TP DAILY [facility] Last Admin: 11/04/16 10:14 Dose: 1 appful Doxazosin Mesylate (Cardura -) 2 mg GT DAILY [facility] Last Admin: 11/04/16 10:14 Dose: 2 mg Escitalopram Oxalate (Lexapro Oral Solution -) 5 mg GT DAILY [facility] Last Admin: 11/04/16 10:14 Dose: 5 mg Fentanyl (Duragesic 12mcg Patch -) 1 patch TD Q72H [facility] Last Admin: 11/02/16 21:30 Dose: 1 patch Ferrous Sulfate (Feosol) 300 mg GT DAILY [facility] Last Admin: 11/04/16 10:13 Dose: 300 mg Sodium Chloride (1/2 Normal Saline) 1,000 mls @ 83 mls/hr IV ASDIR [facility] Last Admin: 11/05/16 02:34 Dose: 83 mls/hr Gentamicin Sulfate 100 mg/ (Sodium Chloride) 100 mls @ 100 mls/hr IVPB DAILY [facility] Insulin Aspart (Novolog Vial Sliding Scale -) 1 vial SQ ACHS [facility] PRN Reason: Protocol Last Admin: 11/05/16 06:04 Dose: 2 units Insulin Detemir (Levemir Vial) 15 units SQ HS [facility] Last Admin: 11/04/16 22:12 Dose: 15 unit Insulin Detemir (Levemir Vial) 22 units SQ AM [facility] Last Admin: 11/05/16 06:03 Dose: 22 unit Lactobacillus Acidophilus (Bacid -) 1 tab GT DAILY [facility] Last Admin: 11/04/16 10:14 Dose: 1 tab Miscellaneous (Duragesic Patch Waste) 1 each TD PRN PRN PRN Reason: PAIN Last Admin: 11/03/16 07:21 Dose: 1 each Olanzapine (Zyprexa -) 5 mg GT HS [facility] Last Admin: 11/04/16 22:18 Dose: 5 mg Ranitidine HCl (Zantac Oral Solution -) 150 mg GT DAILY [facility] Last Admin: 11/04/16 10:13 Dose: 150 mg Vancomycin HCl (Vancomycin Oral Solution) 125 mg PO Q6HPO [facility] - Objective Vital Signs: Vital Signs Temperature 99.5 F 11/05/16 05:57 Pulse Rate 89 11/05/16 05:57 Respiratory Rate 22 11/05/16 05:57 Blood Pressure 115/60 11/05/16 05:57 O2 Sat by Pulse Oximetry (%) 99 11/04/16 21:00 Constitutional: Yes: Well Nourished, No Distress, Calm Cardiovascular: Yes: Regular Rate and Rhythm Respiratory: Yes: Regular Gastrointestinal: Yes: Hyperactive Bowel Sounds Extremities: Yes: Amputation (BLLE) Edema: No Neurological: Yes: Pre-Existing Deficit Labs: CBC, BMP 11/05/16 06:00 11/05/16 06:00 INR, PTT INR 1.04 (0.82-1.09) 10/28/16 03:27 Problem List - Problems (1) Anemia Assessment/Plan: -received 2 units of PRBC this admission, was febrile after blood transfusion, febrile since yesterday -H/H stable -iron studies ok -labs in AM -stool OB negative Code(s): D64.9 - ANEMIA, UNSPECIFIED Qualifiers: Anemia type: iron deficiency Iron deficiency anemia type: unspecified iron deficiency Qualified Code(s): D50.9 - Iron deficiency anemia, unspecified (2) Decubitus ulcer Assessment/Plan: -WC- MRSA and Ecoli Microbiology 10/30/16 14:30 Gram Stain - Final Coccyx Wound Culture - Preliminary Escherichia Coli Esbl Manager Perioperative Mr S Aureus Enterococcus Faecalis Diphtheroid/Corynebacterium 10/30/16 16:50 Urine Culture - Final Urine - Urine - Catheterized Klebsiella Pneumoniae - Esbl 10/28/16 16:30 Blood Culture - Preliminary Blood - Peripheral Venous NO GROWTH OBTAINED AFTER 96 HOURS, INCUBATION TO CONTINUE FOR 1 DAYS. 10/28/16 16:30 Blood Culture - Preliminary Blood - Peripheral Venous NO GROWTH OBTAINED AFTER 96 HOURS, INCUBATION TO CONTINUE FOR 1 DAYS. 10/30/16 15:35 Blood Culture - Preliminary Blood - Peripheral Venous NO GROWTH OBTAINED AFTER 48 HOURS, INCUBATION TO CONTINUE FOR 3 DAYS. 10/30/16 15:35 Blood Culture - Preliminary Blood - Peripheral Venous NO GROWTH OBTAINED AFTER 48 HOURS, INCUBATION TO CONTINUE FOR 3 DAYS. -seen by vascular -terrieyl -offloading from the area Code(s): L89.90 - PRESSURE ULCER OF UNSPECIFIED SITE, UNSPECIFIED STAGE Qualifiers: Pressure ulcer location: buttock (3) C. difficile diarrhea Assessment/Plan: -seen by ID -yl po Code(s): A04.7 - ENTEROCOLITIS DUE TO CLOSTRIDIUM DIFFICILE (4) UTI (urinary tract infection) Assessment/Plan: -positive for Kleb P. -IV abx-gentamicin -ID on board Code(s): N39.0 - URINARY TRACT INFECTION, SITE NOT SPECIFIED Qualifiers: Urinary tract infection type: acute cystitis Hematuria presence: without hematuria Qualified Code(s): N30.00 - Acute cystitis without hematuria (5) Hyperkalemia Assessment/Plan: -borderline -secondary to renal insufficiency? -renal on board -Tube feeds changed to nepro Code(s): E87.5 - HYPERKALEMIA Assessment/Plan UC-Kleb P BC-negative WC-MRSA and E. coli still has diarrhea ID, Wound and renal consult abx as per ID- PO vanco and IV gentamicin wound care terrieyl tylenol for fever over 100.0F labs in AM renal on board tube feeding changed to Nepro
[2016-11-05] MEDS ORDERED: PT OWN MED DRAWER 7, Y5N ONE ×3 (10:48→21:32)
[2016-11-05] MEDS: DOXAZOSIN MESYLATE 2 MG TABLET (FP) GT SCH (10:59)
[2016-11-05] MEDS: AMINO ACIDS/PROTEIN HYDROLYS 30 ML LIQUID.PKT PO SCH ×2 (10:59→17:15)
[2016-11-05] MEDS: FERROUS SO4 300 MG/5 ML ORAL SOLN UNIT DOSE CUPS GT SCH (10:59)
[2016-11-05] MEDS: LACTOBACILLUS ACIDOPHILUS 1 EACH TAB (FP) GT SCH (10:59)
[2016-11-05] MEDS: ASCORBIC ACID 500 MG/5 ML UNIT DOSE CUP GT SCH ×2 (11:00→21:49)
[2016-11-05] MEDS: ESCITALOPRAM OXALATE 5 MG/5 ML GT SCH (11:00)
[2016-11-05] MEDS: COLLAGENASE CLOSTRIDIUM HIST. 30 GRAMS TUBE TP SCH (11:00)
[2016-11-05] MEDS: VANCOMYCIN 250 MG/5 ML ORAL SOLUTION PO SCH ×3 (12:07→23:00)
[2016-11-05 12:31] LABS: PLATELET ESTIMATE ADEQUATE (NORMAL)
--- NOTE | 2016-11-05 14:02 | PN ---
Progress Note (short form) - Note Progress Note: Renal Follow up for hyperkalemia, azotemia Pt seen and examined at the bedside continues to have loose stools pt febrile overnight Vital Signs Temperature 99.5 F 11/05/16 05:57 Pulse Rate 89 11/05/16 05:57 Respiratory Rate 22 11/05/16 05:57 Blood Pressure 115/60 11/05/16 05:57 O2 Sat by Pulse Oximetry (%) 99 11/04/16 21:00 Intake & Output 11/02/16 11/03/16 11/04/16 11/05/16 23:59 23:59 23:59 23:59 Intake Total 947 049 9804 1106 Balance 261 222 6170 1106 Weight 110 lb Gen: NAD cVS: RRR Lungs: CTA Abd: soft NT/ND, G-tube in place Ext: b/l amputations CBC, BMP 11/05/16 06:00 11/05/16 06:00 Current Medications Acetaminophen (Tylenol Oral Solution -) 650 mg PO Q6H PRN PRN Reason: FEVER OR PAIN Last Admin: 11/05/16 01:02 Dose: 650 mg Amino Acids (Prosource No Carb Liquid Pkt) 30 ml PO BID@0800,1730 [facility] Last Admin: 11/05/16 10:59 Dose: 30 ml Ascorbic Acid (Vitamin C Oral Solution -) 500 mg GT BID [facility] Last Admin: 11/05/16 11:00 Dose: 500 mg Collagenase (Santyl -) 1 applic TP DAILY [facility] Last Admin: 11/04/16 10:14 Dose: 1 appful Doxazosin Mesylate (Cardura -) 2 mg GT DAILY [facility] Last Admin: 11/05/16 10:59 Dose: 2 mg Escitalopram Oxalate (Lexapro Oral Solution -) 5 mg GT DAILY [facility] Last Admin: 11/05/16 11:00 Dose: 5 mg Fentanyl (Duragesic 12mcg Patch -) 1 patch TD Q72H [facility] Last Admin: 11/02/16 21:30 Dose: 1 patch Ferrous Sulfate (Feosol) 300 mg GT DAILY [facility] Last Admin: 11/05/16 10:59 Dose: 300 mg Gentamicin Sulfate 100 mg/ (Sodium Chloride) 100 mls @ 100 mls/hr IVPB DAILY@ 1800 [facility] Sodium Chloride (1/2 Normal Saline) 1,000 mls @ 60 mls/hr IV ASDIR [facility] Last Admin: 11/05/16 12:23 Dose: 60 mls/hr Insulin Aspart (Novolog Vial Sliding Scale -) 1 vial SQ ACHS [facility] PRN Reason: Protocol Last Admin: 11/05/16 12:10 Dose: 2 units Insulin Detemir (Levemir Vial) 15 units SQ HS [facility] Last Admin: 11/04/16 22:12 Dose: 15 unit Insulin Detemir (Levemir Vial) 22 units SQ AM [facility] Last Admin: 11/05/16 06:03 Dose: 22 unit Lactobacillus Acidophilus (Bacid -) 1 tab GT DAILY [facility] Last Admin: 11/05/16 10:59 Dose: 1 tab Miscellaneous (Duragesic Patch Waste) 1 each TD PRN PRN PRN Reason: PAIN Last Admin: 11/03/16 07:21 Dose: 1 each Olanzapine (Zyprexa -) 5 mg GT HS [facility] Last Admin: 11/04/16 22:18 Dose: 5 mg Ranitidine HCl (Zantac Oral Solution -) 150 mg GT DAILY [facility] Last Admin: 11/04/16 10:13 Dose: 150 mg Vancomycin HCl (Vancomycin Oral Solution) 125 mg PO Q6HPO [facility] Last Admin: 11/05/16 12:07 Dose: 125 mg 81 year old woman with is Portuguease speaking with PMhx of Multiple GIANNI's, Hypernatremia, Hypertension, PVD s/p b/l Amputations, DM who presented with abnormal outpatient labs and found to be anemia requiring PRBC transfusion and now with persistent hyperkalemia, hypernatremia and azotemia. #Hypernatremia increased free water via G-tube continue 1/2 NS as pt continues to have high BUN/Cr ratio and continued loose stools #Hyperkalemia tube feeds changed to Nephro appreciated Nutrition assistance #Azotemia from volume depletion continue hypotonic saline for now trend BUN/Cr and electrolytes #Acute on chronic anemia s/p PRBC transfusion Trend Hgb Vahid Manzano DO Problem List - Problems (1) Anemia Code(s): D64.9 - ANEMIA, UNSPECIFIED Qualifiers: Anemia type: iron deficiency Iron deficiency anemia type: unspecified iron deficiency Qualified Code(s): D50.9 - Iron deficiency anemia, unspecified (2) Hyperkalemia Code(s): E87.5 - HYPERKALEMIA (3) Azotemia Code(s): R79.89 - OTHER SPECIFIED ABNORMAL FINDINGS OF BLOOD CHEMISTRY (4) Hypernatremia Code(s): E87.0 - HYPEROSMOLALITY AND HYPERNATREMIA
[2016-11-05] MEDS ORDERED: GENTAMICIN INJECTION 100 MG in SODIUM CHLORIDE 97.5 ML IVPB SCH (16:00)
[2016-11-05] MEDS: RANITIDINE HCL 150 MG/10 ML UNIT-DOSE CUP GT SCH (17:15)
[2016-11-05] MEDS: GENTAMICIN INJECTION 100 MG in SODIUM CHLORIDE 97.5 ML IVPB SCH (17:15)
[2016-11-05] MEDS: OLANZapine 5 MG TABLET GT SCH (21:50)
[2016-11-05] MEDS: fentaNYL 12mcg/hr PATCH.TD72 TD SCH (22:56)
[2016-11-06] MEDS ORDERED: PT OWN MED DRAWER 7, Y5N ONE ×4 (05:50→21:39)
[2016-11-06] MEDS: VANCOMYCIN 250 MG/5 ML ORAL SOLUTION PO SCH ×3 (06:06→17:45)
[2016-11-06] MEDS: INSULIN DETEMIR 100 UNITS/ML MDV SQ SCH ×2 (06:06→21:35)
[2016-11-06] MEDS: INSULIN SLIDING SCALE (NOVOLOG) 1 VIAL SQ SCH ×4 (06:07→21:35)
[2016-11-06] MEDS: FENTANYL PATCH WASTE TD PRN (07:04)
[2016-11-06] MEDS: AMINO ACIDS/PROTEIN HYDROLYS 30 ML LIQUID.PKT PO SCH ×2 (07:58→17:44)
[2016-11-06 08:05] LABS: ANION GAP 9 (8-16); CALCIUM 8.6 mg/dL (8.5-10.1); CO2 24 mmol/L (21-32); GLUCOSE,RANDOM 225 mg/dL (74-106); MAGNESIUM 2.4 mg/dL (1.8-2.4)
[2016-11-06 08:08] LABS: CREATININE 0.7 mg/dL (0.55-1.02); PHOSPHOROUS 3.7 mg/dL (2.5-4.9)
[2016-11-06 08:19] LABS: MCH 29.5 pg (25.7-33.7); MCHC 32.1 g/dl (32.0-36.0); MEAN CELL VOLUME 92.1 fl (80-96); MEAN PLT VOLUME 9.4 fl (7.5-11.1); WHITE BLOOD COUNT 9.1 K/mm3 (4.0-10.0)
--- NOTE | 2016-11-06 09:19 | PN ---
Progress Note, Physician Chief Complaint: Anemia Infected Pressure Ulcer History of Present Illness: Patient comfortably lying in bed, NAD - Current Medication List Current Medications: Active Medications Acetaminophen (Tylenol Oral Solution -) 650 mg PO Q6H PRN PRN Reason: FEVER OR PAIN Last Admin: 11/05/16 01:02 Dose: 650 mg Amino Acids (Prosource No Carb Liquid Pkt) 30 ml PO BID@0800,1730 [facility] Last Admin: 11/06/16 07:58 Dose: 30 ml Ascorbic Acid (Vitamin C Oral Solution -) 500 mg GT BID [facility] Last Admin: 11/05/16 21:49 Dose: 500 mg Collagenase (Santyl -) 1 applic TP DAILY [facility] Last Admin: 11/05/16 11:00 Dose: 1 appful Doxazosin Mesylate (Cardura -) 2 mg GT DAILY [facility] Last Admin: 11/05/16 10:59 Dose: 2 mg Escitalopram Oxalate (Lexapro Oral Solution -) 5 mg GT DAILY [facility] Last Admin: 11/05/16 11:00 Dose: 5 mg Fentanyl (Duragesic 12mcg Patch -) 1 patch TD Q72H [facility] Last Admin: 11/05/16 22:56 Dose: 1 patch Ferrous Sulfate (Feosol) 300 mg GT DAILY [facility] Last Admin: 11/05/16 10:59 Dose: 300 mg Gentamicin Sulfate 100 mg/ (Sodium Chloride) 100 mls @ 100 mls/hr IVPB DAILY@ 1800 [facility] Last Admin: 11/05/16 17:15 Dose: 100 mls/hr Sodium Chloride (1/2 Normal Saline) 1,000 mls @ 60 mls/hr IV ASDIR [facility] Last Admin: 11/05/16 12:23 Dose: 60 mls/hr Insulin Aspart (Novolog Vial Sliding Scale -) 1 vial SQ ACHS [facility] PRN Reason: Protocol Last Admin: 11/06/16 06:07 Dose: 4 units Insulin Detemir (Levemir Vial) 15 units SQ HS [facility] Last Admin: 11/05/16 21:48 Dose: 15 unit Insulin Detemir (Levemir Vial) 22 units SQ AM [facility] Last Admin: 11/06/16 06:06 Dose: 22 unit Lactobacillus Acidophilus (Bacid -) 1 tab GT DAILY [facility] Last Admin: 11/05/16 10:59 Dose: 1 tab Miscellaneous (Duragesic Patch Waste) 1 each TD PRN PRN PRN Reason: PAIN Last Admin: 11/06/16 07:04 Dose: 1 each Olanzapine (Zyprexa -) 5 mg GT HS [facility] Last Admin: 11/05/16 21:50 Dose: 5 mg Ranitidine HCl (Zantac Oral Solution -) 150 mg GT DAILY [facility] Last Admin: 11/05/16 17:15 Dose: 150 mg Vancomycin HCl (Vancomycin Oral Solution) 125 mg PO Q6HPO [facility] Last Admin: 11/06/16 06:06 Dose: 125 mg - Objective Vital Signs: Vital Signs Temperature 98.3 F 11/06/16 05:00 Pulse Rate 95 H 11/06/16 05:00 Respiratory Rate 20 11/06/16 05:00 Blood Pressure 119/64 11/06/16 05:00 O2 Sat by Pulse Oximetry (%) 96 11/05/16 21:00 Constitutional: Yes: No Distress Cardiovascular: Yes: Regular Rate and Rhythm Respiratory: Yes: CTA Bilaterally Gastrointestinal: Yes: Normal Bowel Sounds, Soft Extremities: Yes: Amputation (bilateral) Edema: No Neurological: Yes: Alert, Pre-Existing Deficit Labs: CBC, BMP 11/06/16 06:00 11/06/16 06:00 INR, PTT INR 1.04 (0.82-1.09) 10/28/16 03:27 Problem List - Problems (1) Anemia Code(s): D64.9 - ANEMIA, UNSPECIFIED Qualifiers: Anemia type: iron deficiency Iron deficiency anemia type: unspecified iron deficiency Qualified Code(s): D50.9 - Iron deficiency anemia, unspecified (2) ARF (acute renal failure) Code(s): N17.9 - ACUTE KIDNEY FAILURE, UNSPECIFIED (3) Decubitus ulcer Code(s): L89.90 - PRESSURE ULCER OF UNSPECIFIED SITE, UNSPECIFIED STAGE Qualifiers: Pressure ulcer location: buttock (4) Dementia Code(s): F03.90 - UNSPECIFIED DEMENTIA WITHOUT BEHAVIORAL DISTURBANCE (5) Fever Code(s): R50.9 - FEVER, UNSPECIFIED Assessment/Plan Problem List - Problems (1) Anemia Assessment/Plan: -received 2 units of PRBC this admission -H/H trending down -iron studies ok -labs in AM Laboratory Tests 11/04/16 11/05/16 11/06/16 05:35 06:00 06:00 Hgb 10.8 10.0 L 9.8 L Laboratory Tests 10/30/16 06:00 Iron 30 TIBC 162 L Iron Saturation 19 -stool OB negative Code(s): D64.9 - ANEMIA, UNSPECIFIED Qualifiers: Anemia type: iron deficiency Iron deficiency anemia type: unspecified iron deficiency Qualified Code(s): D50.9 - Iron deficiency anemia, unspecified (2) Decubitus ulcer Assessment/Plan: -WC- MRSA and Ecoli Microbiology 11/03/16 19:50 Blood - Peripheral Venous Blood Culture - Preliminary NO GROWTH OBTAINED AFTER 48 HOURS, INCUBATION TO CONTINUE FOR 3 DAYS. 11/03/16 19:40 Blood - Peripheral Venous Blood Culture - Preliminary NO GROWTH OBTAINED AFTER 48 HOURS, INCUBATION TO CONTINUE FOR 3 DAYS. 10/30/16 15:35 Blood - Peripheral Venous Blood Culture - Final NO GROWTH AFTER 5 DAYS INCUBATION 10/30/16 15:35 Blood - Peripheral Venous Blood Culture - Final NO GROWTH AFTER 5 DAYS INCUBATION 10/28/16 16:30 Blood - Peripheral Venous Blood Culture - Final NO GROWTH AFTER 5 DAYS INCUBATION 10/28/16 16:30 Blood - Peripheral Venous Blood Culture - Final NO GROWTH AFTER 5 DAYS INCUBATION 10/30/16 14:30 Coccyx Gram Stain - Final 10/30/16 14:30 Coccyx Wound Culture - Final Escherichia Coli Esbl Cardiology Physician Mr S Aureus Enterococcus Faecalis Diphtheroid/Corynebacterium 10/30/16 16:50 Urine - Urine - Catheterized Urine Culture - Final Klebsiella Pneumoniae - Esbl 10/29/16 01:30 Urine - Urine - Catheterized Urine Culture - Final Contaminated: Please Repeat Klebsiella Pneumoniae - Esbl 10/28/16 11:20 Stool Clostridium difficile Antigen (JAKY) - Final 10/28/16 11:20 Stool Clostridium difficile Toxin Assay - Final -seen by vascular -santyl -offloading from the area Code(s): L89.90 - PRESSURE ULCER OF UNSPECIFIED SITE, UNSPECIFIED STAGE Qualifiers: Pressure ulcer location: buttock (3) C. difficile diarrhea Assessment/Plan: -seen by ID -Flagyl po Code(s): A04.7 - ENTEROCOLITIS DUE TO CLOSTRIDIUM DIFFICILE (4) UTI (urinary tract infection) Assessment/Plan: -positive for Kleb P. -IV abx-gentamicin -ID on board Code(s): N39.0 - URINARY TRACT INFECTION, SITE NOT SPECIFIED Qualifiers: Urinary tract infection type: acute cystitis Hematuria presence: without hematuria Qualified Code(s): N30.00 - Acute cystitis without hematuria (5) Hyperkalemia Assessment/Plan: -borderline -secondary to renal insufficiency? -renal on board -Tube feeds changed to nepro Code(s): E87.5 - HYPERKALEMIA Assessment/Plan UC-Kleb P BC-negative WC-MRSA and E. coli still has diarrhea ID, Wound and renal consult abx as per ID- PO vanco and IV gentamicin wound care santyl tylenol for fever over 100.0F labs in AM renal on board tube feeding changed to Nepro
[2016-11-06] MEDS: RANITIDINE HCL 150 MG/10 ML UNIT-DOSE CUP GT SCH (09:28)
[2016-11-06] MEDS: ASCORBIC ACID 500 MG/5 ML UNIT DOSE CUP GT SCH ×2 (09:29→21:41)
[2016-11-06] MEDS: ESCITALOPRAM OXALATE 5 MG/5 ML GT SCH (09:29)
[2016-11-06] MEDS: DOXAZOSIN MESYLATE 2 MG TABLET (FP) GT SCH (09:30)
[2016-11-06] MEDS: LACTOBACILLUS ACIDOPHILUS 1 EACH TAB (FP) GT SCH (09:31)
[2016-11-06] MEDS: COLLAGENASE CLOSTRIDIUM HIST. 30 GRAMS TUBE TP SCH (09:31)
[2016-11-06] MEDS: FERROUS SO4 300 MG/5 ML ORAL SOLN UNIT DOSE CUPS GT SCH (09:32)
[2016-11-06] MEDS: SODIUM CHLORIDE 0.45% 1,000 ML IV SCH (10:44)
[2016-11-06 11:05] LABS: PLATELET COUNT 327 K/MM3 (134-434); PLATELET ESTIMATE ADEQUATE (NORMAL)
[2016-11-06 11:06] LABS: PLATELET COMMENT2 NO CLOTTING DETECTED
--- NOTE | 2016-11-06 11:45 | PN ---
Progress Note, Physician Chief Complaint: This is a 81 year old woman with is Portuguease speaking with PMhx of Multiple GIANNI's, Hypernatremia, Hypertension, PVD s/p b/l Amputations, DM who presented with abnormal outpatient labs and found to be anemia requiring PRBC transfusion and now with persistent hyperkalemia, hypernatremia and azotemia. Pt is currently on Tube feeds with Glucerna . Still with loose BM. - Current Medication List Current Medications: Active Medications Acetaminophen (Tylenol Oral Solution -) 650 mg PO Q6H PRN PRN Reason: FEVER OR PAIN Last Admin: 11/05/16 01:02 Dose: 650 mg Amino Acids (Prosource No Carb Liquid Pkt) 30 ml PO BID@0800,1730 [facility] Last Admin: 11/06/16 07:58 Dose: 30 ml Ascorbic Acid (Vitamin C Oral Solution -) 500 mg GT BID [facility] Last Admin: 11/06/16 09:29 Dose: 500 mg Collagenase (Santyl -) 1 applic TP DAILY [facility] Last Admin: 11/06/16 09:31 Dose: 1 appful Doxazosin Mesylate (Cardura -) 2 mg GT DAILY [facility] Last Admin: 11/06/16 09:30 Dose: 2 mg Escitalopram Oxalate (Lexapro Oral Solution -) 5 mg GT DAILY [facility] Last Admin: 11/06/16 09:29 Dose: 5 mg Fentanyl (Duragesic 12mcg Patch -) 1 patch TD Q72H [facility] Last Admin: 11/05/16 22:56 Dose: 1 patch Ferrous Sulfate (Feosol) 300 mg GT DAILY [facility] Last Admin: 11/06/16 09:32 Dose: 300 mg Gentamicin Sulfate 100 mg/ (Sodium Chloride) 100 mls @ 100 mls/hr IVPB DAILY@ 1800 [facility] Last Admin: 11/05/16 17:15 Dose: 100 mls/hr Sodium Chloride (1/2 Normal Saline) 1,000 mls @ 60 mls/hr IV ASDIR [facility] Last Admin: 11/06/16 10:44 Dose: 60 mls/hr Insulin Aspart (Novolog Vial Sliding Scale -) 1 vial SQ ACHS [facility] PRN Reason: Protocol Last Admin: 11/06/16 11:16 Dose: 2 units Insulin Detemir (Levemir Vial) 15 units SQ HS [facility] Last Admin: 11/05/16 21:48 Dose: 15 unit Insulin Detemir (Levemir Vial) 22 units SQ AM [facility] Last Admin: 11/06/16 06:06 Dose: 22 unit Lactobacillus Acidophilus (Bacid -) 1 tab GT DAILY [facility] Last Admin: 11/06/16 09:31 Dose: 1 tab Miscellaneous (Duragesic Patch Waste) 1 each TD PRN PRN PRN Reason: PAIN Last Admin: 11/06/16 07:04 Dose: 1 each Olanzapine (Zyprexa -) 5 mg GT HS [facility] Last Admin: 11/05/16 21:50 Dose: 5 mg Ranitidine HCl (Zantac Oral Solution -) 150 mg GT DAILY [facility] Last Admin: 11/06/16 09:28 Dose: 150 mg Vancomycin HCl (Vancomycin Oral Solution) 125 mg PO Q6HPO [facility] Last Admin: 11/06/16 06:06 Dose: 125 mg - Objective Vital Signs: Vital Signs Temperature 98.3 F 11/06/16 05:00 Pulse Rate 95 H 11/06/16 05:00 Respiratory Rate 20 11/06/16 09:00 Blood Pressure 119/64 11/06/16 05:00 O2 Sat by Pulse Oximetry (%) 97 11/06/16 09:00 Constitutional: Yes: Anxious HENT: Yes: Normocephalic Neck: Yes: Trachea Midline Cardiovascular: Yes: S1, S2 Respiratory: Yes: Regular, CTA Bilaterally. No: Rales, Rhonchi Gastrointestinal: Yes: Normal Bowel Sounds, Soft, Other (G Tube in place, feeding in progress.) Extremities: Yes: Amputation (Bilateral) Labs: CBC, BMP 11/06/16 06:00 11/06/16 06:00 INR, PTT INR 1.04 (0.82-1.09) 10/28/16 03:27 Problem List - Problems (1) Anemia Code(s): D64.9 - ANEMIA, UNSPECIFIED Qualifiers: Anemia type: iron deficiency Iron deficiency anemia type: unspecified iron deficiency Qualified Code(s): D50.9 - Iron deficiency anemia, unspecified (2) C. difficile diarrhea Code(s): A04.7 - ENTEROCOLITIS DUE TO CLOSTRIDIUM DIFFICILE (3) Altered mental status Code(s): R41.82 - ALTERED MENTAL STATUS, UNSPECIFIED (4) Azotemia Code(s): R79.89 - OTHER SPECIFIED ABNORMAL FINDINGS OF BLOOD CHEMISTRY (5) HTN (hypertension) Code(s): I10 - ESSENTIAL (PRIMARY) HYPERTENSION Qualifiers: Hypertension type: essential hypertension Qualified Code(s): I10 - Essential (primary) hypertension Assessment/Plan This is a 81 year old woman with is Portuguease speaking with PMhx of Multiple GIANNI's, Hypernatremia, Hypertension, PVD s/p b/l Amputations, DM who presented with abnormal outpatient labs and found to be anemia requiring PRBC transfusion and now with persistent hyperkalemia, hypernatremia and azotemia. Pt is currently on Tube feeds with Glucerna 1.5. Pt gettign 20cc of free water flushes per hour. Patient receiving PO Vancomycin for C. diff enterocolitis. Renal functions slowly improving . Mostly Prerenal azotemia. IV fluids well tolerated. Will continue the IV fluids as ordered. Aysha Reese MD
[2016-11-06] MEDS: GENTAMICIN INJECTION 100 MG in SODIUM CHLORIDE 97.5 ML IVPB SCH (17:44)
[2016-11-06] MEDS: OLANZapine 5 MG TABLET GT SCH (21:41)
[2016-11-07] MEDS: VANCOMYCIN 250 MG/5 ML ORAL SOLUTION PO SCH ×5 (00:51→23:58)
[2016-11-07] MEDS: SODIUM CHLORIDE 0.45% 1,000 ML IV SCH (05:56)
[2016-11-07] MEDS: INSULIN DETEMIR 100 UNITS/ML MDV SQ SCH ×2 (06:01→22:10)
[2016-11-07] MEDS: INSULIN SLIDING SCALE (NOVOLOG) 1 VIAL SQ SCH ×4 (06:01→22:10)
[2016-11-07 07:49] LABS: MCH 29.9 pg (25.7-33.7); MCHC 32.6 g/dl (32.0-36.0); MEAN CELL VOLUME 91.5 fl (80-96); MEAN PLT VOLUME 9.1 fl (7.5-11.1); PLATELET COUNT 315 K/MM3 (134-434); RDW 20.2 % (11.6-15.6); WHITE BLOOD COUNT 7.6 K/mm3 (4.0-10.0)
[2016-11-07 08:13] LABS: ALBUMIN 1.7 g/dl (3.4-5.0); ANION GAP 8 (8-16); CALCIUM 8.6 mg/dL (8.5-10.1); CO2 25 mmol/L (21-32); GLUCOSE,RANDOM 222 mg/dL (74-106)
[2016-11-07 08:18] LABS: ALK PHOS 172 U/L (45-117); BILIRUBIN,TOTAL 0.3 mg/dL (0.2-1.0); CREATININE 0.6 mg/dL (0.55-1.02); SGOT/AST 27 U/L (15-37); SGPT/ALT 31 U/L (12-78); TOT PROT 6.6 g/dl (6.4-8.2)
[2016-11-07] MEDS: AMINO ACIDS/PROTEIN HYDROLYS 30 ML LIQUID.PKT PO SCH ×2 (08:27→16:34)
[2016-11-07] MEDS ORDERED: PT OWN MED DRAWER 7, Y5N ONE ×3 (09:36→21:52)
[2016-11-07] MEDS: ASCORBIC ACID 500 MG/5 ML UNIT DOSE CUP GT SCH ×2 (09:44→22:10)
[2016-11-07] MEDS: RANITIDINE HCL 150 MG/10 ML UNIT-DOSE CUP GT SCH (09:44)
[2016-11-07] MEDS: DOXAZOSIN MESYLATE 2 MG TABLET (FP) GT SCH (09:45)
[2016-11-07] MEDS: FERROUS SO4 300 MG/5 ML ORAL SOLN UNIT DOSE CUPS GT SCH (09:45)
[2016-11-07] MEDS: LACTOBACILLUS ACIDOPHILUS 1 EACH TAB (FP) GT SCH (09:45)
[2016-11-07] MEDS: ESCITALOPRAM OXALATE 5 MG/5 ML GT SCH (09:46)
[2016-11-07] MEDS: COLLAGENASE CLOSTRIDIUM HIST. 30 GRAMS TUBE TP SCH (09:47)
--- NOTE | 2016-11-07 10:41 | PN ---
Progress Note, Physician - Current Medication List Current Medications: Active Medications Acetaminophen (Tylenol Oral Solution -) 650 mg PO Q6H PRN PRN Reason: FEVER OR PAIN Last Admin: 11/05/16 01:02 Dose: 650 mg Amino Acids (Prosource No Carb Liquid Pkt) 30 ml PO BID@0800,1730 [facility] Last Admin: 11/07/16 08:27 Dose: 30 ml Ascorbic Acid (Vitamin C Oral Solution -) 500 mg GT BID [facility] Last Admin: 11/07/16 09:44 Dose: 500 mg Collagenase (Santyl -) 1 applic TP DAILY [facility] Last Admin: 11/07/16 09:47 Dose: 1 appful Doxazosin Mesylate (Cardura -) 2 mg GT DAILY [facility] Last Admin: 11/07/16 09:45 Dose: 2 mg Escitalopram Oxalate (Lexapro Oral Solution -) 5 mg GT DAILY [facility] Last Admin: 11/07/16 09:46 Dose: 5 mg Ferrous Sulfate (Feosol) 300 mg GT DAILY [facility] Last Admin: 11/07/16 09:45 Dose: 300 mg Gentamicin Sulfate 100 mg/ (Sodium Chloride) 100 mls @ 100 mls/hr IVPB DAILY@ 1800 [facility] Last Admin: 11/06/16 17:44 Dose: 100 mls/hr Sodium Chloride (1/2 Normal Saline) 1,000 mls @ 60 mls/hr IV ASDIR [facility] Last Admin: 11/07/16 05:56 Dose: 60 mls/hr Insulin Aspart (Novolog Vial Sliding Scale -) 1 vial SQ ACHS [facility] PRN Reason: Protocol Last Admin: 11/07/16 06:01 Dose: 4 units Insulin Detemir (Levemir Vial) 15 units SQ HS [facility] Last Admin: 11/06/16 21:35 Dose: 15 unit Insulin Detemir (Levemir Vial) 22 units SQ AM [facility] Last Admin: 11/07/16 06:01 Dose: 22 unit Lactobacillus Acidophilus (Bacid -) 1 tab GT DAILY [facility] Last Admin: 11/07/16 09:45 Dose: 1 tab Miscellaneous (Duragesic Patch Waste) 1 each TD PRN PRN PRN Reason: PAIN Last Admin: 11/06/16 07:04 Dose: 1 each Olanzapine (Zyprexa -) 5 mg GT HS [facility] Last Admin: 11/06/16 21:41 Dose: 5 mg Ranitidine HCl (Zantac Oral Solution -) 150 mg GT DAILY [facility] Last Admin: 11/07/16 09:44 Dose: 150 mg Vancomycin HCl (Vancomycin Oral Solution) 125 mg PO Q6HPO [facility] Last Admin: 11/07/16 05:49 Dose: 125 mg - Objective Vital Signs: Vital Signs Temperature 98.4 F 11/07/16 08:35 Pulse Rate 90 11/07/16 08:35 Respiratory Rate 18 11/07/16 08:35 Blood Pressure 142/75 11/07/16 08:35 O2 Sat by Pulse Oximetry (%) 98 11/07/16 08:34 Cardiovascular: Yes: Murmur, S1, S2 Respiratory: Yes: Diminished, On Nasal O2 Gastrointestinal: Yes: Normal Bowel Sounds, Soft Labs: CBC, BMP 11/07/16 06:00 11/07/16 06:00 INR, PTT INR 1.04 (0.82-1.09) 10/28/16 03:27 Problem List - Problems (1) Anemia Code(s): D64.9 - ANEMIA, UNSPECIFIED Qualifiers: Anemia type: iron deficiency Iron deficiency anemia type: unspecified iron deficiency Qualified Code(s): D50.9 - Iron deficiency anemia, unspecified (2) CHF (congestive heart failure) Code(s): I50.9 - HEART FAILURE, UNSPECIFIED Qualifiers: Congestive heart failure type: diastolic Congestive heart failure chronicity: chronic Qualified Code(s): I50.32 - Chronic diastolic ( congestive) heart failure (3) Decubitus ulcer Code(s): L89.90 - PRESSURE ULCER OF UNSPECIFIED SITE, UNSPECIFIED STAGE Qualifiers: Pressure ulcer location: buttock (4) Diabetes Code(s): E11.9 - TYPE 2 DIABETES MELLITUS WITHOUT COMPLICATIONS Qualifiers: Diabetes mellitus type: type 2 Diabetes mellitus complication detail: with other skin ulcer (5) S/P bilateral below knee amputation Code(s): Z89.512 - ACQUIRED ABSENCE OF LEFT LEG BELOW KNEE Z89.511 - ACQUIRED ABSENCE OF RIGHT LEG BELOW KNEE (6) Hyperkalemia Code(s): E87.5 - HYPERKALEMIA Assessment/Plan Problem List - Problems (1) Anemia Assessment/Plan: -received 2 units of PRBC this admission -H/H trending down -iron studies ok -labs in AM Laboratory Tests 11/04/16 11/05/16 11/06/16 05:35 06:00 06:00 Hgb 10.8 10.0 L 9.8 L Laboratory Tests 10/30/16 06:00 Iron 30 TIBC 162 L Iron Saturation 19 -stool OB negative Code(s): D64.9 - ANEMIA, UNSPECIFIED Qualifiers: Anemia type: iron deficiency Iron deficiency anemia type: unspecified iron deficiency Qualified Code(s): D50.9 - Iron deficiency anemia, unspecified (2) Decubitus ulcer Assessment/Plan: -WC- MRSA and Ecoli Microbiology 11/03/16 19:50 Blood - Peripheral Venous Blood Culture - Preliminary NO GROWTH OBTAINED AFTER 48 HOURS, INCUBATION TO CONTINUE FOR 3 DAYS. 11/03/16 19:40 Blood - Peripheral Venous Blood Culture - Preliminary NO GROWTH OBTAINED AFTER 48 HOURS, INCUBATION TO CONTINUE FOR 3 DAYS. 10/30/16 15:35 Blood - Peripheral Venous Blood Culture - Final NO GROWTH AFTER 5 DAYS INCUBATION 10/30/16 15:35 Blood - Peripheral Venous Blood Culture - Final NO GROWTH AFTER 5 DAYS INCUBATION 10/28/16 16:30 Blood - Peripheral Venous Blood Culture - Final NO GROWTH AFTER 5 DAYS INCUBATION 10/28/16 16:30 Blood - Peripheral Venous Blood Culture - Final NO GROWTH AFTER 5 DAYS INCUBATION 10/30/16 14:30 Coccyx Gram Stain - Final 10/30/16 14:30 Coccyx Wound Culture - Final Escherichia Coli Esbl Single Stroke Preformer Mr S Aureus Enterococcus Faecalis Diphtheroid/Corynebacterium 10/30/16 16:50 Urine - Urine - Catheterized Urine Culture - Final Klebsiella Pneumoniae - Esbl 10/29/16 01:30 Urine - Urine - Catheterized Urine Culture - Final Contaminated: Please Repeat Klebsiella Pneumoniae - Esbl 10/28/16 11:20 Stool Clostridium difficile Antigen (JAKY) - Final 10/28/16 11:20 Stool Clostridium difficile Toxin Assay - Final -seen by vascular -santyl -offloading from the area Code(s): L89.90 - PRESSURE ULCER OF UNSPECIFIED SITE, UNSPECIFIED STAGE Qualifiers: Pressure ulcer location: buttock (3) C. difficile diarrhea Assessment/Plan: -seen by ID -Flagyl po Code(s): A04.7 - ENTEROCOLITIS DUE TO CLOSTRIDIUM DIFFICILE (4) UTI (urinary tract infection) Assessment/Plan: -positive for Kleb P. -IV abx-gentamicin -ID on board Code(s): N39.0 - URINARY TRACT INFECTION, SITE NOT SPECIFIED Qualifiers: Urinary tract infection type: acute cystitis Hematuria presence: without hematuria Qualified Code(s): N30.00 - Acute cystitis without hematuria (5) Hyperkalemia Assessment/Plan: -borderline -secondary to renal insufficiency? -renal on board -Tube feeds changed to nepro Code(s): E87.5 - HYPERKALEMIA (6) Functional Qaudriplegia bed bound frequent bed positioning Assessment/Plan UC-Kleb P BC-negative WC-MRSA and E. coli still has diarrhea ID, Wound and renal consult abx as per ID- PO vanco and IV gentamicin wound care santyl tylenol for fever over 100.0F labs in AM renal on board tube feeding changed to Nepro
[2016-11-07 12:24] LABS: PLATELET ESTIMATE ADEQUATE (NORMAL)
--- NOTE | 2016-11-07 15:39 | PN ---
Progress Note, Physician Chief Complaint: This is a 81 year old woman with is Portuguease speaking with PMhx of Multiple GIANNI's, Hypernatremia, Hypertension, PVD s/p b/l Amputations, DM who presented with abnormal outpatient labs and found to be anemic requiring PRBC transfusion and now with persistent hyperkalemia, hypernatremia and azotemia. The tube feeding has been changed to Nepro. Still with loose BM. - Current Medication List Current Medications: Active Medications Acetaminophen (Tylenol Oral Solution -) 650 mg PO Q6H PRN PRN Reason: FEVER OR PAIN Last Admin: 11/05/16 01:02 Dose: 650 mg Amino Acids (Prosource No Carb Liquid Pkt) 30 ml PO BID@0800,1730 [facility] Last Admin: 11/07/16 08:27 Dose: 30 ml Ascorbic Acid (Vitamin C Oral Solution -) 500 mg GT BID [facility] Last Admin: 11/07/16 09:44 Dose: 500 mg Collagenase (Santyl -) 1 applic TP DAILY [facility] Last Admin: 11/07/16 09:47 Dose: 1 appful Doxazosin Mesylate (Cardura -) 2 mg GT DAILY [facility] Last Admin: 11/07/16 09:45 Dose: 2 mg Escitalopram Oxalate (Lexapro Oral Solution -) 5 mg GT DAILY [facility] Last Admin: 11/07/16 09:46 Dose: 5 mg Ferrous Sulfate (Feosol) 300 mg GT DAILY [facility] Last Admin: 11/07/16 09:45 Dose: 300 mg Gentamicin Sulfate 100 mg/ (Sodium Chloride) 100 mls @ 100 mls/hr IVPB DAILY@ 1800 [facility] Last Admin: 11/06/16 17:44 Dose: 100 mls/hr Sodium Chloride (1/2 Normal Saline) 1,000 mls @ 60 mls/hr IV ASDIR [facility] Last Admin: 11/07/16 05:56 Dose: 60 mls/hr Insulin Aspart (Novolog Vial Sliding Scale -) 1 vial SQ ACHS [facility] PRN Reason: Protocol Last Admin: 11/07/16 11:15 Dose: 4 units Insulin Detemir (Levemir Vial) 15 units SQ HS [facility] Last Admin: 11/06/16 21:35 Dose: 15 unit Insulin Detemir (Levemir Vial) 22 units SQ AM [facility] Last Admin: 11/07/16 06:01 Dose: 22 unit Lactobacillus Acidophilus (Bacid -) 1 tab GT DAILY [facility] Last Admin: 11/07/16 09:45 Dose: 1 tab Miscellaneous (Duragesic Patch Waste) 1 each TD PRN PRN PRN Reason: PAIN Last Admin: 11/06/16 07:04 Dose: 1 each Olanzapine (Zyprexa -) 5 mg GT HS [facility] Last Admin: 11/06/16 21:41 Dose: 5 mg Ranitidine HCl (Zantac Oral Solution -) 150 mg GT DAILY [facility] Last Admin: 11/07/16 09:44 Dose: 150 mg Vancomycin HCl (Vancomycin Oral Solution) 125 mg PO Q6HPO [facility] Last Admin: 11/07/16 11:12 Dose: 125 mg - Objective Vital Signs: Vital Signs Temperature 98.8 F 11/07/16 14:09 Pulse Rate 88 11/07/16 14:09 Respiratory Rate 20 11/07/16 14:09 Blood Pressure 112/61 11/07/16 14:09 O2 Sat by Pulse Oximetry (%) 98 11/07/16 08:34 Constitutional: Yes: Anxious, Pallor Eyes: Yes: Conjunctiva Clear Neck: Yes: Trachea Midline Cardiovascular: Yes: S1, S2 Respiratory: Yes: Regular, Diminished Gastrointestinal: Yes: Normal Bowel Sounds, Other (G tube in progress) Labs: CBC, BMP 11/07/16 06:00 11/07/16 06:00 INR, PTT INR 1.04 (0.82-1.09) 10/28/16 03:27 Problem List - Problems (1) Anemia Code(s): D64.9 - ANEMIA, UNSPECIFIED Qualifiers: Anemia type: iron deficiency Iron deficiency anemia type: unspecified iron deficiency Qualified Code(s): D50.9 - Iron deficiency anemia, unspecified (2) C. difficile diarrhea Code(s): A04.7 - ENTEROCOLITIS DUE TO CLOSTRIDIUM DIFFICILE (3) Altered mental status Code(s): R41.82 - ALTERED MENTAL STATUS, UNSPECIFIED (4) Azotemia Code(s): R79.89 - OTHER SPECIFIED ABNORMAL FINDINGS OF BLOOD CHEMISTRY (5) HTN (hypertension) Code(s): I10 - ESSENTIAL (PRIMARY) HYPERTENSION Qualifiers: Hypertension type: essential hypertension Qualified Code(s): I10 - Essential (primary) hypertension Assessment/Plan This is a 81 year old woman with is Portuguease speaking with PMhx of Multiple GIANNI's, Hypernatremia, Hypertension, PVD s/p b/l Amputations, DM who presented with abnormal outpatient labs and found to be anemia requiring PRBC transfusion and now with persistent hyperkalemia, hypernatremia and azotemia. Tube feding Glucerna 1.5. Pt gettign 20cc of free water flushes per hour. Patient receiving PO Vancomycin for C. diff enterocolitis. Renal functions fairly stable . Mostly Prerenal azotemia. IV fluids well tolerated. Will continue the IV fluids as ordered. Aysha Reese MD
[2016-11-07] MEDS: GENTAMICIN INJECTION 100 MG in SODIUM CHLORIDE 97.5 ML IVPB SCH (17:19)
[2016-11-07] MEDS: ACETAMINOPHEN 650 MG/20.3 ML ORAL SOLUTION (CUPS) PO PRN (18:54)
[2016-11-07] MEDS ORDERED: fentaNYL 12mcg/hr PATCH.TD72 TD SCH (20:00)
[2016-11-07] MEDS: OLANZapine 5 MG TABLET GT SCH (22:09)
[2016-11-08] MEDS: SODIUM CHLORIDE 0.45% 1,000 ML IV SCH ×3 (01:17→12:12)
[2016-11-08] MEDS: ACETAMINOPHEN 650 MG/20.3 ML ORAL SOLUTION (CUPS) PO PRN (01:18)
[2016-11-08] MEDS: INSULIN SLIDING SCALE (NOVOLOG) 1 VIAL SQ SCH ×2 (06:08→11:33)
[2016-11-08] MEDS: INSULIN DETEMIR 100 UNITS/ML MDV SQ SCH (06:08)
[2016-11-08] MEDS: VANCOMYCIN 250 MG/5 ML ORAL SOLUTION PO SCH ×2 (06:09→12:13)
[2016-11-08] MEDS: AMINO ACIDS/PROTEIN HYDROLYS 30 ML LIQUID.PKT PO SCH (08:00)
[2016-11-08 08:46] VITALS: BP 138/69; PULSE 93; TEMP 96.5
[2016-11-08] MEDS: DOXAZOSIN MESYLATE 2 MG TABLET (FP) GT SCH (11:15)
[2016-11-08] MEDS: ASCORBIC ACID 500 MG/5 ML UNIT DOSE CUP GT SCH (11:16)
[2016-11-08] MEDS: ESCITALOPRAM OXALATE 5 MG/5 ML GT SCH (11:16)
[2016-11-08] MEDS: RANITIDINE HCL 150 MG/10 ML UNIT-DOSE CUP GT SCH (11:34)
[2016-11-08] MEDS: FERROUS SO4 300 MG/5 ML ORAL SOLN UNIT DOSE CUPS GT SCH (11:34)
[2016-11-08] MEDS: LACTOBACILLUS ACIDOPHILUS 1 EACH TAB (FP) GT SCH (11:35)
[2016-11-08] MEDS: COLLAGENASE CLOSTRIDIUM HIST. 30 GRAMS TUBE TP SCH (11:35)
--- NOTE | 2016-11-08 12:00 | PN ---
Progress Note (short form) - Note Progress Note: afebrile for 48 hours, no diarrhea Vital Signs Period Temp Pulse Resp BP Sys/Chávez Pulse Ox Last 24 Hr 96.5 F-98.8 F 62-93 16-20 105-139/59-81 97 cor-rrr llungs clear abd soft, +GT bilateral BKA sacral ulcer CBC, BMP 11/07/16 06:00 11/07/16 06:00 a/p cdiff colitis UTI d/c gent another 7 days of oral vancomycin for cdiff contact isolation please call back if needed d/w primary service
== END 2016-11-08 14:02 | DRG 811 ==
LOC: JER 01:52 → JERBED 05:54 → J7W 12:31 → INTOOBSV 10-30 15:00 → OBSVTOIN 10-30 15:00
PROVIDERS: ADMIT Family Medicine; ATTEND Family Medicine
PROC: 30233N1 Transfusion of Nonautologous Red Blood Cells into Peripheral Vein, Percutaneous Approach (ICD-10-PCS; principal; 2016-10-28)
DX: D50.9 Iron deficiency anemia, unspecified (principal); L89.154 Pressure ulcer of sacral region, stage 4; R53.2 Functional quadriplegia; E87.0 Hyperosmolality and hypernatremia; N39.0 Urinary tract infection, site not specified; A04.7 Enterocolitis due to Clostridium difficile; I50.32 Chronic diastolic (congestive) heart failure; N17.9 Acute kidney failure, unspecified; E87.5 Hyperkalemia; Z89.512 Acquired absence of left leg below knee; Z89.511 Acquired absence of right leg below knee; K21.9 Gastro-esophageal reflux disease without esophagitis; E78.5 Hyperlipidemia, unspecified; D72.829 Elevated white blood cell count, unspecified; E11.65 Type 2 diabetes mellitus with hyperglycemia
CPT/HCPCS: 36415; 36430; 71010-TC; 80048; 80053; 81003; 81015; 82272; 82728; 83540; 83550; 83605; 83735; 84100; 84484; 85025; 85027; 85610; 85730; 86850; 86870; 86880; 86900; 86901; 86902; 86922; 87040; 87070; 87086; 87184; 87186; 87205; 87324; 87449; 93005; 93010; 99285-25; G0378; G0480; J1644; P9038; P9058

== ENCOUNTER 2016-11-16 21:00 | Inpatient (IN) | payer OTHER ==
--- NOTE | 2016-11-16 21:41 | PDOC ---
History of Present Illness - General History Source: Family, Senior Living Records <Rui Kathleen - Last Filed: 11/16/16 22:59> - General History Source: Family, Senior Living Records Exam Limitations: Clinical Condition, Dementia - History of Present Illness Initial Comments: 11/16/16 22:10 The patient is a 81 year old female with significant past medical history of dementia, acute kidney failure, hyperglycemia, diabetes, hypertension, COPD, MRSA, C. difficile, pressure ulcer, recent sepsis, bilateral BKA, G-tube, anemia who presents to the ED BIBA from [facility] for fever and abnormal labs. Neither family member, at bedside, nor it is documented what the abnormal lab value is. Patient is nonverbal, as per family member and does not follow commands. She is currently afebrile. As per previous records, patient was admitted here on 10/29, where she was transfused due to anemia and discharged on 11/07. She also has recent admissions for sepsis, UTI and pneumonia. Allergies: NKDA Social History: No alcohol, tobacco, or drug use reported. Past Surgical History: g-tube placement PCP: Dr. Rashawn Garcia <Liz Cifuentes - Last Filed: 11/17/16 00:00> - General Stated Complaint: ABNORMAL LABS Time Seen by Provider: 11/16/16 21:36 Past History - Past Medical History Anemia: Yes Asthma: No Cancer: No Cardiac Disorders: No CVA: Yes COPD: No CHF: Yes Dementia: Yes Diabetes: Yes (iddm) GI Disorders: Yes HTN: Yes Hypercholesterolemia: Yes Kidney Stones: No (acute kidney failure) Psychiatric Problems: Yes (anxeity,agitation,depression) Seizures: No Thyroid Disease: Yes - Surgical History Abdominal Surgery: Yes (GT PLACEMENT.) - Reproductive History Ectopic : No Polycystic Ovaries: No - Psycho/Social/Smoking Cessation Hx Anxiety: No Suicidal Ideation: No Smoking Status: No Smoking History: Never smoked Have you smoked in the past 12 months: No Number of Cigarettes Smoked Daily: 0 Hx Alcohol Use: No Drug/Substance Use Hx: No Substance Use Type: None Hx Substance Use Treatment: No <Rui Kathleen - Last Filed: 11/16/16 22:59> <Liz Cifuentes - Last Filed: 11/17/16 00:00> - Past Medical History Allergies/Adverse Reactions: Allergies Allergy/AdvReac Type Severity Reaction Status Date / Time No Known Drug Allergies Allergy Verified 11/16/16 21:48 Home Medications: Ambulatory Orders Aa/Miles Ivone,Whey/Arg/C/Zn/Cu [Lps Critical Care Liquid] 960 ml GT BID Acetaminophen Oral Solution [Tylenol 160mg/5mL Oral Solution -] 640 mg PO Q6H PRN 09/28/16 Ascorbic Acid [Vitamin C] 500 mg GT TID 09/28/16 Doxazosin Mesylate 2 mg GT HS 09/28/16 Escitalopram Oxalate [Lexapro 5mg/5mL Oral Solution -] 10 mg GT DAILY 09/28/16 Famotidine 20 mg GT DAILY 09/28/16 Fentanyl 1 each TD Q72H 09/28/16 Ferrous Sulfate *Liquid* [Feosol *Liquid*] 330 mg GT TID 09/28/16 Insulin Detemir [Levemir Flextouch] 12 unit SQ HS 09/28/16 Lactobacillus Acidophilus [Acidophilus] 1 each GT BID 09/28/16 Olanzapine [Zyprexa] 5 mg GT HS 09/28/16 Vitamin B Comp W-C [Nephro-Rafael -] 1 tablet GT DAILY 09/28/16 Collagenase Clostridium Hist. [Santyl -] 1 applic TP DAILY tube 10/08/16 Insulin Sliding Scale [Novolog Vial Sliding Scale -] 1 vial SQ ACHS units 10/08 Naph,Mb-Db/K pH,Mbdb [PHOS-NaK PACKET -] 1 packet GT TID packet 10/08/16 Heparin - 5,000 units IJ BID 10/28/16 Amino Acids/Protein Hydrolys [Prosource No Carb Liquid Pkt] 30 ml PO BID@0800, 1730 packet 11/08/16 Collagenase Clostridium Hist. [Santyl -] 1 applic TP DAILY tube 11/08/16 Doxazosin Mesylate [Cardura -] 2 mg GT DAILY tablet 11/08/16 FENTANYL 12mcg PATCH [DURAGESIC 12mcg PATCH -] 1 patch TD Q72H 7 Days MDD 1 Fentanyl Patch Waste [Duragesic Patch Waste] 1 each TD PRN PRN #0 each 11/08/16 Insulin (Levemir) [Levemir Vial] 15 units SQ HS ml 11/08/16 Insulin (Levemir) [Levemir Vial] 22 units SQ AM ml 11/08/16 Lactobacillus Acidophilus [Bacid -] 1 tab GT DAILY tab 11/08/16 Olanzapine [Zyprexa -] 5 mg GT HS tablet 11/08/16 Ranitidine Oral Solution [Zantac Oral Solution -] 150 mg GT DAILY #30 mg Vancomycin Oral Solution 125 mg PO Q6HPO ml 11/08/16 Review of Systems - Review of Systems Able to Perform ROS?: No Comments:: 11/16/16 22:10 Unable to obtain secondary to patients clinical condition. <Liz Cifuentes - Last Filed: 11/17/16 00:00> *Physical Exam - Vital Signs Last Vital Signs Temp Pulse Resp BP Pulse Ox 98.6 F 101 H 14 87/55 98 11/16/16 21:49 11/16/16 21:49 11/16/16 21:49 11/16/16 21:49 11/16/16 21:49 - Physical Exam Comments: 11/16/16 22:10 GENERAL: Afebrile. Well developed, thin, frail. Somnolent. No acute distress. HEENT: Normocephalic, atraumatic. PERRLA, EOMI. No conjunctival pallor. Sclera are non- icteric. Moist mucous membranes. Oropharynx is clear. NECK: Supple. Full ROM. No JVD. Carotid pulses 2+ and symmetric, without bruits. No thyromegaly. No lymphadenopathy. CARDIOVASCULAR: Tachycardia with 3/6 holosystolic murmur. Regular rhythm. No rubs or gallops. PULMONARY: No evidence of respiratory distress. Bilateral diffuse crackles and wheezing. ABDOMINAL: Soft. Non-tender. Non-distended. No rebound or guarding. Feeding tube in place. Normoactive bowel sounds. MUSCULOSKELETAL: Normal range of motion at all joints. No bony deformities or tenderness. No contractors. No CVA tenderness. EXTREMITIES: No cyanosis. No clubbing. No edema. No calf tenderness. SKIN: Warm and dry. Normal capillary refill. No rashes. No jaundice. Wound VAC in place to the sacral region. NEUROLOGICAL: Patient is nonverbal, as per family member. Does not follow commands <Liz Cifuentes - Last Filed: 11/17/16 00:00> Heart Score/ECG Review - ECG Impressions Comment:: 11/16/16 23:59 Sinus rhythm with short IA with premature atrial complexes @97bpm Nonspecific ST abnormality Abnormal QRS-T angle, consider primary T wave abnormality Prolonged QT Abnormal ECG <Liz Cifuentes - Last Filed: 11/17/16 00:00> ED Treatment Course - LABORATORY CBC & Chemistry Diagram: 11/16/16 22:10 11/16/16 22:10 <Rui Kathleen - Last Filed: 11/16/16 22:59> - LABORATORY CBC & Chemistry Diagram: 11/16/16 22:10 11/16/16 22:10 <Liz Cifuentes - Last Filed: 11/17/16 00:00> Medical Decision Making - Medical Decision Making 11/16/16 23:00 Dr. Kathelen: The scribe's documentation has been prepared under my direction and personally reviewed by me in its entirery. I confirm that the note above accurately reflects all work, treatment, procedures, and medical decision making performed by me. <Rui Kathleen - Last Filed: 11/16/16 22:59> - Medical Decision Making 11/16/16 22:[address] Rashawn Garcia (via answering service) Awaiting call back 11/16/16 22:39 Second call placed to Dr. Garcia (via answering service) Awaiting call back 11/16/16 22:55 Third call placed to Dr. Garcia (via answering service) and patient's case was discussed. <Liz Cifuentes - Last Filed: 11/17/16 00:00> *DC/Admit/Observation/Transfer - Discharge Dispostion Admit: Yes <Rui Kathleen - Last Filed: 11/16/16 22:59> - Attestations Scribe Attestion: 11/16/16 22:10 Documentation prepared by Liz Cifuentes, acting as medical instrument technician for Rui Kathleen DO. <Liz Cifuentes - Last Filed: 11/17/16 00:00> Diagnosis at time of Disposition: Fever, Electrolyte abnormality - Referrals Referrals: Rashawn Garcia MD [Primary Care Provider] -
[2016-11-16] MEDS ORDERED: SODIUM CHLORIDE 1,000 ML IV STA (21:44)
[2016-11-16] MEDS ORDERED: ACETAMINOPHEN 1000 MG/100 ML VIAL (NON FORMULARY) IVPB ONE (22:44)
[2016-11-16 22:53] LABS: BASOPHIL 0.3 % (0-2.0); EOSINOPHIL 0.1 % (0-4.5); MCHC 31.5 g/dl (32.0-36.0); MEAN CELL VOLUME 92.3 fl (80-96); MEAN PLT VOLUME 8.9 fl (7.5-11.1); NEUTROPHILS 62.8 % (42.8-82.8); PLATELET COUNT 288 K/MM3 (134-434); RDW 20.5 % (11.6-15.6); WHITE BLOOD COUNT 17.3 K/mm3 (4.0-10.0)
[2016-11-16] MEDS ORDERED: ACETAMINOPHEN INJECTION 100 ML IVPB ONE (22:53)
[2016-11-16 23:05] LABS: INR 1.02 (0.82-1.09); PROTHROMBIN TIME (PATIENT) 11.2 SEC (9.98-11.88)
[2016-11-16 23:11] LABS: URINE APPEARANCE TURBID; URINE BILIRUBIN NEGATIVE (NEGATIVE); URINE BLOOD 1+ (NEGATIVE); URINE COLOR YELLOW; URINE GLUCOSE (UA) NEGATIVE (NEGATIVE); URINE KETONE NEGATIVE (NEGATIVE); URINE NITRITE NEGATIVE (NEGATIVE); URINE UROBILINOGEN NEGATIVE mg/dL (0.2-1.0)
[2016-11-16 23:17] LABS: URINE LEUK ESTERASE 1+ (NEGATIVE); URINE PROTEIN 2+ (NEGATIVE)
[2016-11-16 23:38] LABS: ALBUMIN 2.1 g/dl (3.4-5.0); ALK PHOS 98 U/L (45-117); ANION GAP 10 (8-16); BILIRUBIN,TOTAL 0.3 mg/dL (0.2-1.0); CO2 32 mmol/L (21-32); CREATININE 2.2 mg/dL (0.55-1.02); GLUCOSE,RANDOM 180 mg/dL (74-106); SGOT/AST 29 U/L (15-37); SGPT/ALT 32 U/L (12-78); TOT PROT 8.7 g/dl (6.4-8.2)
[2016-11-17 00:07] LABS: URINE RBC 15 /hpf (0-3)
[2016-11-17 00:08] LABS: URINE BACTERIA MANY /hpf (NONE SEEN); URINE WBC >100 /hpf (3-5)
[2016-11-17] MEDS ORDERED: SODIUM CHLORIDE 0.45% 1,000 ML IV SCH (02:00)
[2016-11-17] MEDS ORDERED: FENTANYL PATCH WASTE TD PRN (08:12)
[2016-11-17] MEDS ORDERED: TIGECYCLINE 100 MG in DEXTROSE 5%-WATER - 100 ML IVPB ONE (10:00)
[2016-11-17] MEDS ORDERED: GENTAMICIN 100 ML IVPB ONE (10:00)
[2016-11-17] MEDS ORDERED: PT OWN MED DRAWER 7, Y5N ONE (10:14)
--- NOTE | 2016-11-17 10:21 | PN ---
Teaching Attending Note Name of Resident: Yoni Watson ATTENDING PHYSICIAN STATEMENT I saw and evaluated the patient. I reviewed the resident's note and discussed the case with the resident. I agree with the resident's findings and plan as documented. SUBJECTIVE: here with fever and dehydration nonverbal recently admitted with fever, UTI and cdiff no diarrhea now discharged on po vancomycin which she completed [place] spoke with [place] [facility] RN OBJECTIVE: Vital Signs Period Temp Pulse Resp BP Sys/Chávez Pulse Ox Last 24 Hr 98.6 F-101 F 100-101 14-20 87-100/54-55 98-100 cor-RRR lung clear abd soft, GT ext no edema sacral ulcer- clean, no purulence, no odor, no erythema bilateral bka- stumps clean and dry conley with cloudy urine CBC, BMP 11/16/16 22:10 11/16/16 22:10 cultures sent cxray no infiltrate ASSESSMENT AND PLAN: FUO recent cdiff UTI history of CRE/ESBL/MRSA repeat stool cdiff f/u cultures repeat bmp- got fluids in ED tygacil and gent, follow gent levels overall prognosis poor strict contact isolation/dedicated equipment
[2016-11-17] MEDS: ESCITALOPRAM OXALATE 5 MG/5 ML GT SCH (10:30)
[2016-11-17] MEDS: INSULIN DETEMIR 100 UNITS/ML MDV SQ SCH ×2 (10:30→22:44)
[2016-11-17] MEDS: LACTOBACILLUS ACIDOPHILUS 1 EACH TAB (FP) GT SCH (10:31)
[2016-11-17] MEDS: HEPARIN NA (PORCINE) 5,000 UNITS/ML 1ML VIAL SQ SCH ×2 (10:31→22:37)
[2016-11-17] MEDS: DOXAZOSIN MESYLATE 2 MG TABLET (FP) GT SCH (10:31)
[2016-11-17] MEDS: NAPH,MB-DB/K PH,MBDB POWDER PACKET GT SCH (10:31)
[2016-11-17] MEDS: RANITIDINE HCL 150 MG/10 ML UNIT-DOSE CUP GT SCH (10:31)
--- NOTE | 2016-11-17 10:38 | PN ---
Problem List - Problems (1) Fever Code(s): R50.9 - FEVER, UNSPECIFIED (2) UTI (urinary tract infection) Code(s): N39.0 - URINARY TRACT INFECTION, SITE NOT SPECIFIED Qualifiers: Urinary tract infection type: acute cystitis Hematuria presence: without hematuria Qualified Code(s): N30.00 - Acute cystitis without hematuria (3) C. difficile diarrhea Code(s): A04.7 - ENTEROCOLITIS DUE TO CLOSTRIDIUM DIFFICILE (4) Drug (multiple) resistant infection Code(s): 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
--- NOTE | 2016-11-17 11:01 | CONSULT ---
Consultation: REQUESTING PROVIDER: CONSULT REQUEST: ID HISTORY OF PRESENT ILLNESS: Patient is a 81 F with a significant PMH of dementia, multi-drug resistance, MRSA, c. diff, recent sepsis, B/L BKA, and G- tube, was BIBA from [facility] for fever, dehydration and abnormal labs. Patient is non-verbal and does not follow commands. She had a recent admission for Sepsis, UTI and Pneumonia. Her last admission was on 11/08 for anemia and discharged on 11/07. PMH: B/L BKA, Dementia, HTN, Acute kidney failure, HTN, COPD PSH: g-tube placement Home Meds: Aa/[place] Ivone,[place]hey/Arg/C/Zn/Cu [Lps Critical Care Liquid] 960 ml GT BID Acetaminophen Oral Solution [Tylenol 160mg/5mL Oral Solution -] 640 mg PO Q6H PRN 09/28/16 Ascorbic Acid [Vitamin C] 500 mg GT TID 09/28/16 Doxazosin Mesylate 2 mg GT HS 09/28/16 Escitalopram Oxalate [Lexapro 5mg/5mL Oral Solution -] 10 mg GT DAILY Famotidine 20 mg GT DAILY 09/28/16 Fentanyl 1 each TD Q72H 09/28/16 Ferrous Sulfate *Liquid* [Feosol *Liquid*] 330 mg GT TID 09/28/16 Insulin Detemir [Levemir Flextouch] 12 unit SQ HS 09/28/16 Lactobacillus Acidophilus [Acidophilus] 1 each GT BID 09/28/16 Olanzapine [Zyprexa] 5 mg GT HS 09/28/16 Vitamin B Comp W-C [Nephro-Rafael -] 1 tablet GT DAILY 09/28/16 Collagenase Clostridium Hist. [Santyl -] 1 applic TP DAILY tube 10/08/16 Insulin Sliding Scale [Novolog Vial Sliding Scale -] 1 vial SQ ACHS units Naph,Mb-Db/K pH,Mbdb [PHOS-NaK PACKET -] 1 packet GT TID packet 10/08/16 Heparin - 5,000 units IJ BID 10/28/16 Amino Acids/Protein Hydrolys [Prosource No Carb Liquid Pkt] 30 ml PO BID@0800, 1730 packet 11/08/16 Collagenase Clostridium Hist. [Santyl -] 1 applic TP DAILY tube 11/08/16 Doxazosin Mesylate [Cardura -] 2 mg GT DAILY tablet 11/08/16 FENTANYL 12mcg PATCH [DURAGESIC 12mcg PATCH -] 1 patch TD Q72H 7 Days MDD 1 Fentanyl Patch Waste [Duragesic Patch Waste] 1 each TD PRN PRN #0 each Insulin (Levemir) [Levemir Vial] 15 units SQ HS ml 11/08/16 Insulin (Levemir) [Levemir Vial] 22 units SQ AM ml 11/08/16 Lactobacillus Acidophilus [Bacid -] 1 tab GT DAILY tab 11/08/16 Olanzapine [Zyprexa -] 5 mg GT HS tablet 11/08/16 Ranitidine Oral Solution [Zantac Oral Solution -] 150 mg GT DAILY #30 mg 11/08 Vancomycin Oral Solution 125 mg PO Q6HPO ml 11/08/16 PHYSICAL EXAMINATION GENERAL: Non-verbal, NAD HEAD: Normal with no signs of trauma. EYES: Pupils equal, round and reactive to light, extraocular movements intact, sclera anicteric, conjunctiva clear. No lid lag. EARS, NOSE, THROAT: Ears normal, nares patent, oropharynx clear without exudates. Moist mucous membranes. NECK: supple without lymphadenopathy, JVD, or masses. LUNGS: Breath sounds equal, clear to auscultation bilaterally. No wheezes, and no crackles. No accessory muscle use. HEART: Regular rate and rhythm, normal S1 and S2 without murmur, rub or gallop. ABDOMEN: G-tube placement Soft, not distended, normoactive bowel sounds, no guarding, no rebound, no masses. No hepatomegaly or splenomegaly. MUSCULOSKELETAL: Normal range of motion at all joints. No bony deformities or tenderness. No CVA tenderness. UPPER EXTREMITIES: 2+ pulses, warm, well-perfused. No cyanosis. No clubbing. Cap refill <2 seconds. No peripheral edema. LOWER EXTREMITIES: B/L BKA PSYCHIATRIC: Cooperative. Good eye contact. Appropriate mood and affect. SKIN: Warm, dry, normal turgor, no rashes or lesions noted. Large sacral decubitus ulcer- clean, no purulence, no odor, no erythema Laboratory Results - last 24 hr 11/16/16 11/17/16 23:00 06:02 POC Glucometer 180 Urine Color Yellow Urine Appearance Turbid Urine pH 5.0 Urine Protein 2+ H Urine Glucose (UA) Negative Urine Ketones Negative Urine Blood 1+ H Urine Nitrite Negative Urine Bilirubin Negative Urine Urobilinogen Negative Ur Leukocyte Esterase 1+ H Urine RBC 15 Urine WBC >100 Ur Epithelial Cells Few Amorphous Urates Moderate Urine Bacteria Many Active Medications Generic Name Dose Route Start Last Admin Trade Name Freq PRN Reason Stop Dose Admin Acetaminophen 650 mg 11/17/16 08:04 Tylenol Oral Solution - GT Q6H PRN FEVER OR PAIN Ascorbic Acid 500 mg 11/17/16 14:00 Vitamin C - GT TID LARRY Doxazosin Mesylate 2 mg 11/17/16 10:00 11/17/16 10:31 Cardura - GT 2 mg DAILY LARRY Administration Escitalopram Oxalate 10 mg 11/17/16 10:00 11/17/16 10:30 Lexapro Oral Solution - GT 10 mg DAILY LARRY Administration Fentanyl 1 patch 11/17/16 10:00 Duragesic 12mcg Patch - TD Q72H [facility] Heparin Sodium (Porcine) 5,000 unit 11/17/16 10:00 11/17/16 10:31 Heparin - SQ 5,000 unit BID [facility] Administration Sodium Chloride 1,000 mls @ 100 mls/hr 11/17/16 02:00 1/2 Normal Saline IV ASDIR [facility] Tigecycline 100 mg/ Dextrose 100 mls @ 100 mls/hr 11/17/16 10:00 IVPB 11/17/16 10:59 ONCE ONE Protocol Tigecycline 50 mg/ Dextrose 100 mls @ 100 mls/hr 11/17/16 22:00 IVPB BID [facility] Protocol Insulin Aspart 1 vial 11/17/16 11:00 Novolog Vial Sliding Scale - SQ TIDAC [facility] Protocol Insulin Detemir 22 units 11/17/16 08:00 11/17/16 10:30 Levemir Vial SQ 22 units AM [facility] Administration Insulin Detemir 15 units 11/17/16 22:00 Levemir Vial SQ HS [facility] Lactobacillus Acidophilus 1 tab 11/17/16 10:00 11/17/16 10:31 Bacid - GT 1 tab DAILY ALRRY Administration Miscellaneous 1 each 11/17/16 08:12 Duragesic Patch Waste TD PRN PRN Olanzapine 2.5 mg 11/17/16 22:00 Zyprexa - GT HS LARRY Potassium Phos/Sodium Phos 1 packet 11/17/16 10:00 11/17/16 10:31 Phos-Nak Packet - GT 1 packet DAILY LARRY Administration Ranitidine HCl 150 mg 11/17/16 10:00 11/17/16 10:31 Zantac Oral Solution - GT 150 mg DAILY LARRY Administration ASSESSMENT/PLAN: 1) Urinary tract infection/Fever -Cultures pending -Hx of ESBL/MRSA/CRE -Start Tigecycline 100mg, 1 dose Gemtamycin 100mg (renal failure) -Follow Gentamycin levels in the morning. -Repeat labs in the morning (renal function) -repeat stool c. diff -repeat BMP- received fluids in ED -strict contact isolation Dispo: We will continue to follow the patient. Thank you for this consultative opportunity. Visit type - Emergency Visit Emergency Visit: Yes ED Registration Date: 11/16/16 Care time: The patient presented to the Emergency Department on the above date and was hospitalized for further evaluation of their emergent condition. - New Patient This patient is new to me today: Yes Date on this admission: 11/17/16 - Critical Care Critical Care patient: No
--- NOTE | 2016-11-17 11:17 | EKG ---
Test Reason : Blood Pressure : / mmHG Vent. Rate : 097 BPM Atrial Rate : 097 BPM P-R Int : 098 ms QRS Dur : 080 ms QT Int : 390 ms P-R-T Axes : -10 -11 094 degrees QTc Int : 495 ms SINUS RHYTHM WITH SHORT MA WITH PREMATURE ATRIAL COMPLEXES NONSPECIFIC ST ABNORMALITY ABNORMAL QRS-T ANGLE, CONSIDER PRIMARY T WAVE ABNORMALITY PROLONGED QT ABNORMAL ECG WHEN COMPARED WITH ECG OF 28-OCT-2016 02:36, PREMATURE ATRIAL COMPLEXES ARE NOW PRESENT Confirmed by QUANG VERMA, CHA ([id number]) on 11/17/2016 11:17:05 AM Referred By: Confirmed By:CHA DEL RIO MD
[2016-11-17 11:46] LABS: ANION GAP 6 (8-16); CALCIUM 8.4 mg/dL (8.5-10.1); CO2 30 mmol/L (21-32); CREATININE 1.9 mg/dL (0.55-1.02); GLUCOSE,RANDOM 231 mg/dL (74-106)
[2016-11-17 12:17] LABS: MCH 29.2 pg (25.7-33.7); MCHC 31.3 g/dl (32.0-36.0); MEAN CELL VOLUME 93.5 fl (80-96); MEAN PLT VOLUME 9.2 fl (7.5-11.1); PLATELET COUNT 263 K/MM3 (134-434); RDW 20.9 % (11.6-15.6); WHITE BLOOD COUNT 14.2 K/mm3 (4.0-10.0)
[2016-11-17 12:25] VITALS: BMI 27.0
[2016-11-17] MEDS: INSULIN SLIDING SCALE (NOVOLOG) 1 VIAL SQ SCH ×2 (12:50→18:12)
[2016-11-17] MEDS ORDERED: GENTAMICIN INJECTION 100 MG in SODIUM CHLORIDE 97.5 ML IVPB ONE (14:00)
--- NOTE | 2016-11-17 15:20 | HP ---
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 Cardiovascular: Yes: Aortic Stenosis, CHF, HTN, Hyperlipdemia Pulmonary: Yes: COPD Gastrointestinal: Yes: GERD Renal/: Yes: Renal Inusuff Heme/Onc: Yes: Anemia Endocrine: Yes: Diabetes Mellitus Dermatology: Yes: Other (PU) - Advance Directives Advance Directives: Yes: Health Care Proxy, DNR - Smoking History Smoking history: Never smoked Have you smoked in the past 12 months: No Aproximately how many cigarettes per day: 0 - Alcohol/Substance Use Hx Alcohol Use: No - Social History History of Recent Travel: No Home Medications - Allergies Allergies/Adverse Reactions: Allergies Allergy/AdvReac Type Severity Reaction Status Date / Time No Known Drug Allergies Allergy Verified 11/16/16 21:48 - Home Medications Home Medications: Ambulatory Orders Aa/[place] Ivone,[place]hey/Arg/C/Zn/Cu [Lps Critical Care Liquid] 30 ml GT BID 09/28/16 Acetaminophen Oral Solution [Tylenol 160mg/5mL Oral Solution -] 640 mg GT Q6H PRN 09/28/16 Ascorbic Acid [Vitamin C] 500 mg GT TID 09/28/16 Escitalopram Oxalate [Lexapro 5mg/5mL Oral Solution -] 10 mg GT DAILY 09/28/16 Famotidine 20 mg GT DAILY 09/28/16 Ferrous Sulfate *Liquid* [Feosol *Liquid*] 330 mg GT TID 09/28/16 Vitamin B Comp W-C [Nephro-Rafael -] 1 tablet GT DAILY 09/28/16 Insulin Sliding Scale [Novolog Vial Sliding Scale -] 1 vial SQ ACHS units 10/08 Heparin - 5,000 units SQ BID 10/28/16 Doxazosin Mesylate [Cardura -] 2 mg GT DAILY tablet 11/08/16 FENTANYL 12mcg PATCH [DURAGESIC 12mcg PATCH -] 1 patch TD Q72H 7 Days MDD 1 Fentanyl Patch Waste [Duragesic Patch Waste] 1 each TD PRN PRN #0 each 11/08/16 Insulin (Levemir) [Levemir Vial] 15 units SQ HS ml 11/08/16 Insulin (Levemir) [Levemir Vial] 22 units SQ AM ml 11/08/16 Lactobacillus Acidophilus [Bacid -] 1 tab GT DAILY tab 11/08/16 Amino Acids/Protein Hydrolys [Prosource No Carb Liquid Pkt] 30 ml GT BID@0800, 1730 11/17/16 Collagenase Clostridium Hist. [Santyl -] 1 applic TP .TIW 11/17/16 FENTANYL 12mcg PATCH [DURAGESIC 12mcg PATCH -] 12 mcg TD Q72H 11/17/16 Naph,Mb-Db/K pH,Mbdb [PHOS-NaK PACKET -] 1 packet GT DAILY 11/17/16 Olanzapine 2.5 mg GT HS 11/17/16 Ranitidine Oral Solution [Zantac Oral Solution -] 150 mg GT ACBK 11/17/16 Review of Systems Unable to obtain ROS, reason: due to dementia Physical Examination Vital Signs: Vital Signs Temperature 101.8 F H 11/17/16 14:54 Pulse Rate 84 11/17/16 14:54 Respiratory Rate 22 11/17/16 14:54 Blood Pressure 118/60 11/17/16 09:00 O2 Sat by Pulse Oximetry (%) 98 11/16/16 21:49 Constitutional: Yes: Well Nourished, No Distress, Calm Cardiovascular: Yes: Regular Rate and Rhythm Respiratory: Yes: Regular Extremities: Yes: Amputation (BLLE) Edema: No Neurological: Yes: Pre-Existing Deficit Labs: CBC, BMP 11/17/16 11:30 11/17/16 11:11 Problem List - Problems (1) C. difficile diarrhea Assessment/Plan: repeat Cdiff stool Code(s): A04.7 - ENTEROCOLITIS DUE TO CLOSTRIDIUM DIFFICILE (2) Drug (multiple) resistant infection Assessment/Plan: -hx of CRE/MRSA/ESBl -repeat BC/UC Code(s): 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 (3) Fever Assessment/Plan: -ID consult -BC, UC pending -repeat labs in AM -on IV abx -has a decubitus ulcer, to be seen by Vascular Sx, continue to use santyl and wound vac. Code(s): R50.9 - FEVER, UNSPECIFIED (4) Dehydration Assessment/Plan: -IVF -monitor labs for BUN/Cr trending down Code(s): E86.0 - DEHYDRATION (5) Leukocytosis Assessment/Plan: -responding to IV abx -ID consult -IVF -BC, UC pending Code(s): D72.829 - ELEVATED WHITE BLOOD CELL COUNT, UNSPECIFIED (6) Functional quadriplegia Code(s): R53.2 - FUNCTIONAL QUADRIPLEGIA Assessment/Plan see problem list
[2016-11-17] MEDS: ASCORBIC ACID 500 MG TABLET (FP) GT SCH ×2 (15:47→22:36)
[2016-11-17] MEDS: FERROUS SO4 300 MG/5 ML ORAL SOLN UNIT DOSE CUPS PEG SCH ×2 (15:47→22:38)
[2016-11-17] MEDS: ACETAMINOPHEN 650 MG/20.3 ML ORAL SOLUTION (CUPS) GT PRN (15:47)
--- NOTE | 2016-11-17 16:48 | CONSULT ---
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 Cardio/Vascular: Yes: Aortic Stenosis, CHF, HTN, Hyperlipdemia Pulmonary: Yes: COPD Gastrointestinal: Yes: GERD Renal/: Yes: Renal Inusuff Endocrine: Yes: Diabetes Mellitus Dermatology: Yes: Other (PU) - Alcohol/Substance Use Hx Alcohol Use: No - Smoking History Smoking history: Never smoked Have you smoked in the past 12 months: No Aproximately how many cigarettes per day: 0 - Social History Usual Living Arrangement: Long Term History of Recent Travel: No Home Medications - Allergies Allergies/Adverse Reactions: Allergies Allergy/AdvReac Type Severity Reaction Status Date / Time No Known Drug Allergies Allergy Verified 11/16/16 21:48 - Home Medications Home Medications: Ambulatory Orders Aa/[place] Ivone,Whey/Arg/C/Zn/Cu [Lps Critical Care Liquid] 30 ml GT BID 09/28/16 Acetaminophen Oral Solution [Tylenol 160mg/5mL Oral Solution -] 640 mg GT Q6H PRN 09/28/16 Ascorbic Acid [Vitamin C] 500 mg GT TID 09/28/16 Escitalopram Oxalate [Lexapro 5mg/5mL Oral Solution -] 10 mg GT DAILY 09/28/16 Famotidine 20 mg GT DAILY 09/28/16 Ferrous Sulfate *Liquid* [Feosol *Liquid*] 330 mg GT TID 09/28/16 Vitamin B Comp W-C [Nephro-Rafael -] 1 tablet GT DAILY 09/28/16 Insulin Sliding Scale [Novolog Vial Sliding Scale -] 1 vial SQ ACHS units 10/08 Heparin - 5,000 units SQ BID 10/28/16 Doxazosin Mesylate [Cardura -] 2 mg GT DAILY tablet 11/08/16 FENTANYL 12mcg PATCH [DURAGESIC 12mcg PATCH -] 1 patch TD Q72H 7 Days MDD 1 Fentanyl Patch Waste [Duragesic Patch Waste] 1 each TD PRN PRN #0 each 11/08/16 Insulin (Levemir) [Levemir Vial] 15 units SQ HS ml 11/08/16 Insulin (Levemir) [Levemir Vial] 22 units SQ AM ml 11/08/16 Lactobacillus Acidophilus [Bacid -] 1 tab GT DAILY tab 11/08/16 Amino Acids/Protein Hydrolys [Prosource No Carb Liquid Pkt] 30 ml GT BID@0800, 1730 11/17/16 Collagenase Clostridium Hist. [Santyl -] 1 applic TP .TIW 11/17/16 FENTANYL 12mcg PATCH [DURAGESIC 12mcg PATCH -] 12 mcg TD Q72H 11/17/16 Naph,Mb-Db/K pH,Mbdb [PHOS-NaK PACKET -] 1 packet GT DAILY 11/17/16 Olanzapine 2.5 mg GT HS 11/17/16 Ranitidine Oral Solution [Zantac Oral Solution -] 150 mg GT ACBK 11/17/16 Physical Exam Vital Signs: Vital Signs Temperature 101.8 F H 11/17/16 14:54 Pulse Rate 84 11/17/16 14:54 Respiratory Rate 22 11/17/16 14:54 Blood Pressure 110/90 11/17/16 14:54 O2 Sat by Pulse Oximetry (%) 98 11/16/16 21:49 Constitutional: Yes: Calm Eyes: Yes: Conjunctiva Clear HENT: Yes: Atraumatic Cardiovascular: Yes: S1, S2 Respiratory: Yes: CTA Bilaterally Gastrointestinal: Yes: Other (peg) Renal/: Yes: Incontinence Musculoskeletal: Yes: Muscle Weakness Edema: No Neurological: Yes: Lethargy Labs: CBC, BMP 11/17/16 11:30 11/17/16 11:11 Laboratory Tests 11/16/16 11/16/16 11/16/16 22:10 22:10 23:00 WBC 17.3 H D Hgb 9.7 L Sodium 148 H Potassium 5.5 H D Chloride 106 Carbon Dioxide 32 D Anion Gap 10 BUN 130 H* D Creatinine 2.2 H D Urine Color Yellow Urine Appearance Turbid Ur Specific [place] Pending Urine Protein 2+ H Urine Glucose (UA) Negative Urine Blood 1+ H 11/17/16 11/17/16 11:11 11:30 WBC 14.2 H Hgb 9.0 L Sodium 147 H Potassium 5.0 Chloride 111 H Carbon Dioxide 30 Anion Gap 6 L BUN 117 H* Creatinine 1.9 H Urine Color Urine Appearance Ur Specific [place] Urine Protein Urine Glucose (UA) Urine Blood
--- NOTE | 2016-11-17 16:51 | PN ---
Progress Note (short form) - Note Progress Note: Pt followed by Dr Manzano, he is aware of pt and will see her. Dr Escobar
--- NOTE | 2016-11-17 17:02 | CON.NEP ---
Consult Consult Specialty:: Nephrology Referred by:: Dr. Garcia Reason for Consultation:: GIANNI - History of Present Illness Chief Complaint: Fever History of Present Illness: This is a 81 year old woman well known to our service with PMhx of GIANNI's, Hypernatremia/dehydration, UTI's, Hypertension, DM, PVD s/p amputations (B/L) who presented from [place] with Fever and found to have Sepsis secondary to suspected UTI with BUN/Cr of 130/2.2. 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 Cardio/Vascular: Yes: Aortic Stenosis, CHF, HTN, Hyperlipdemia Pulmonary: Yes: COPD Gastrointestinal: Yes: GERD Renal/: Yes: Renal Inusuff Endocrine: Yes: Diabetes Mellitus Dermatology: Yes: Other (PU) - Alcohol/Substance Use Hx Alcohol Use: No - Smoking History Smoking history: Never smoked Have you smoked in the past 12 months: No Aproximately how many cigarettes per day: 0 - Social History Usual Living Arrangement: Group Home History of Recent Travel: No Home Medications - Allergies Allergies/Adverse Reactions: Allergies Allergy/AdvReac Type Severity Reaction Status Date / Time No Known Drug Allergies Allergy Verified 11/16/16 21:48 - Home Medications Home Medications: Ambulatory Orders Aa/[place] Ivone,Whey/Arg/C/Zn/Cu [Lps Critical Care Liquid] 30 ml GT BID 09/28/16 Acetaminophen Oral Solution [Tylenol 160mg/5mL Oral Solution -] 640 mg GT Q6H PRN 09/28/16 Ascorbic Acid [Vitamin C] 500 mg GT TID 09/28/16 Escitalopram Oxalate [Lexapro 5mg/5mL Oral Solution -] 10 mg GT DAILY 09/28/16 Famotidine 20 mg GT DAILY 09/28/16 Ferrous Sulfate *Liquid* [Feosol *Liquid*] 330 mg GT TID 09/28/16 Vitamin B Comp W-C [Nephro-Rafael -] 1 tablet GT DAILY 09/28/16 Insulin Sliding Scale [Novolog Vial Sliding Scale -] 1 vial SQ ACHS units 10/08 Heparin - 5,000 units SQ BID 10/28/16 Doxazosin Mesylate [Cardura -] 2 mg GT DAILY tablet 11/08/16 FENTANYL 12mcg PATCH [DURAGESIC 12mcg PATCH -] 1 patch TD Q72H 7 Days MDD 1 Fentanyl Patch Waste [Duragesic Patch Waste] 1 each TD PRN PRN #0 each 11/08/16 Insulin (Levemir) [Levemir Vial] 15 units SQ HS ml 11/08/16 Insulin (Levemir) [Levemir Vial] 22 units SQ AM ml 11/08/16 Lactobacillus Acidophilus [Bacid -] 1 tab GT DAILY tab 11/08/16 Amino Acids/Protein Hydrolys [Prosource No Carb Liquid Pkt] 30 ml GT BID@0800, 1730 11/17/16 Collagenase Clostridium Hist. [Santyl -] 1 applic TP .TIW 11/17/16 FENTANYL 12mcg PATCH [DURAGESIC 12mcg PATCH -] 12 mcg TD Q72H 11/17/16 Naph,Mb-Db/K pH,Mbdb [PHOS-NaK PACKET -] 1 packet GT DAILY 11/17/16 Olanzapine 2.5 mg GT HS 11/17/16 Ranitidine Oral Solution [Zantac Oral Solution -] 150 mg GT ACBK 11/17/16 Nephrology Consult - Height Height: 4 ft 6 in - Weight Weight: 112 lb - BMI Body Mass Index (BMI): 27.0 - Lab Results CBC,BMP: CBC, BMP 11/17/16 11:30 11/17/16 11:11 Anion Gap: Anion Gap Anion Gap 6 (8-16) L 11/17/16 11:11 - Imaging Chest X-ray: Report Reviewed - Physical Examination Vital Signs: Vital Signs Temperature 101.8 F H 11/17/16 14:54 Pulse Rate 84 11/17/16 14:54 Respiratory Rate 22 11/17/16 14:54 Blood Pressure 110/90 11/17/16 14:54 O2 Sat by Pulse Oximetry (%) 98 11/16/16 21:49 Constitutional: Yes: No Distress HENT: Yes: Atraumatic Neck: Yes: Supple Cardiovascular: Yes: Regular Rate and Rhythm Respiratory: Yes: Regular, CTA Bilaterally Gastrointestinal: Yes: Normal Bowel Sounds, Soft Renal/: No: Bladder Distention, [place] Present Extremities: Yes: Amputation (b/l bka). No: Cold, Cool, Cyanosis Edema: No Wound/Incision: Yes: Clean/Dry (sacal decubitis) Assessment/Plan 81 year old woman well known to our service with PMhx of GIANNI's, Hypernatremia/ dehydration, UTI's, Hypertension, DM, PVD s/p amputations (B/L) who presented from [place] with Fever and found to have Sepsis secondary to suspected UTI with BUN/ Cr of 130/2.2. #Acute Renal Failure in setting of Sepsis pt with sepsis and hypovolemia, change IVF to Ns Check urine studies no need for renal imaging at this time keep MAP> 65 Dose all meds for eGFR < 20 #Renal Injury with aminoglycocide exposure aminoglycocides known to cause ATN, however given prior antibiotic sensitivities is warranted now Gentamicin most nephrotoxic of the aminoglycocides, ? if another aminoglycocde is an option at this time Check levels daily and redose as needed will attempt to mitigate other factors that can cause renal injury such as hypovolemia and other nephrotoxin exposure ID following #Sepsis/UTI abx as per ID isotonic IVF #Hypernatremia give isotonic fluids for now given sepsis, hypovoleia #Hyperkalemia change feeds to Nephro Thank you will follow Vahid Manzano DO
[2016-11-17] MEDS: COLLAGENASE CLOSTRIDIUM HIST. 30 GRAMS TUBE TP SCH (17:06)
[2016-11-17] MEDS: SODIUM CHLORIDE 1,000 ML IV SCH (17:06)
[2016-11-17] MEDS: MULTIVIT-MINERALS 236 ML ML PEG SCH (20:06)
[2016-11-17] MEDS: AMINO ACIDS/PROTEIN HYDROLYS 30 ML LIQUID.PKT PEG SCH (22:37)
[2016-11-17] MEDS: TIGECYCLINE 50 MG in DEXTROSE 5%-WATER - 100 ML IVPB SCH (22:37)
[2016-11-17] MEDS: OLANZapine 2.5 MG TABLET GT SCH (22:38)
[2016-11-18] MEDS: FERROUS SO4 300 MG/5 ML ORAL SOLN UNIT DOSE CUPS PEG SCH ×4 (06:35→22:26)
[2016-11-18] MEDS: ASCORBIC ACID 500 MG TABLET (FP) GT SCH (06:36)
[2016-11-18] MEDS: INSULIN DETEMIR 100 UNITS/ML MDV SQ SCH ×2 (06:36→22:42)
[2016-11-18] MEDS: INSULIN SLIDING SCALE (NOVOLOG) 1 VIAL SQ SCH ×3 (06:37→17:07)
[2016-11-18 08:05] LABS: ANION GAP 9 (8-16); CALCIUM 7.9 mg/dL (8.5-10.1); CO2 26 mmol/L (21-32); CREATININE 1.4 mg/dL (0.55-1.02); GLUCOSE,RANDOM 77 mg/dL (74-106); PHOSPHOROUS 5.3 mg/dL (2.5-4.9)
[2016-11-18 08:19] LABS: MAGNESIUM 2.9 mg/dL (1.8-2.4)
[2016-11-18] MEDS ORDERED: PT OWN MED DRAWER 7, Y5N ONE ×3 (09:09→21:32)
[2016-11-18] MEDS: RANITIDINE HCL 150 MG/10 ML UNIT-DOSE CUP GT SCH (09:14)
[2016-11-18] MEDS: LACTOBACILLUS ACIDOPHILUS 1 EACH TAB (FP) GT SCH (09:14)
[2016-11-18] MEDS: AMINO ACIDS/PROTEIN HYDROLYS 30 ML LIQUID.PKT PEG SCH ×2 (09:14→22:26)
[2016-11-18] MEDS: HEPARIN NA (PORCINE) 5,000 UNITS/ML 1ML VIAL SQ SCH ×2 (09:14→22:26)
[2016-11-18] MEDS: ACETAMINOPHEN 650 MG/20.3 ML ORAL SOLUTION (CUPS) GT PRN (09:15)
[2016-11-18] MEDS: NAPH,MB-DB/K PH,MBDB POWDER PACKET GT SCH (09:15)
--- NOTE | 2016-11-18 10:51 | PN ---
Progress Note, Physician Chief Complaint: Sepsis,UTI History of Present Illness: Came in for sepsis and ARF secondary to UTI, NAD, in bed, opens eyes to name. - Current Medication List Current Medications: Active Medications Acetaminophen (Tylenol Oral Solution -) 650 mg GT Q6H PRN PRN Reason: FEVER OR PAIN Last Admin: 11/18/16 09:15 Dose: 650 mg Amino Acids (Prosource No Carb Liquid Pkt) 30 ml PEG BID [facility] Last Admin: 11/18/16 09:14 Dose: 30 ml Ascorbic Acid (Vitamin C Oral Solution -) 500 mg GT TID [facility] Collagenase (Santyl -) 1 applic TP [email or web address]@1000 [facility] Last Admin: 11/17/16 17:06 Dose: 1 applic Doxazosin Mesylate (Cardura -) 2 mg GT DAILY [facility] Last Admin: 11/17/16 10:31 Dose: 2 mg Escitalopram Oxalate (Lexapro Oral Solution -) 10 mg GT DAILY [facility] Last Admin: 11/17/16 10:30 Dose: 10 mg Fentanyl (Duragesic 12mcg Patch -) 1 patch TD Q72H [facility] Ferrous Sulfate (Feosol) 330 mg PEG TID [facility] Last Admin: 11/18/16 06:35 Dose: 330 mg Heparin Sodium (Porcine) (Heparin -) 5,000 unit SQ BID [facility] Last Admin: 11/18/16 09:14 Dose: 5,000 unit Tigecycline 50 mg/ Dextrose 100 mls @ 100 mls/hr IVPB BID [facility] PRN Reason: Protocol Last Admin: 11/17/16 22:37 Dose: 100 mls/hr Sodium Chloride (Normal Saline -) 1,000 mls @ 83 mls/hr IV ASDIR [facility] Last Admin: 11/17/16 17:06 Dose: 83 mls/hr Insulin Aspart (Novolog Vial Sliding Scale -) 1 vial SQ TIDAC [facility] PRN Reason: Protocol Last Admin: 11/18/16 06:37 Dose: Not Given Insulin Detemir (Levemir Vial) 22 units SQ AM [facility] Last Admin: 11/18/16 06:36 Dose: Not Given Insulin Detemir (Levemir Vial) 15 units SQ HS [facility] Last Admin: 11/17/16 22:44 Dose: 15 unit Lactobacillus Acidophilus (Bacid -) 1 tab GT DAILY [facility] Last Admin: 11/18/16 09:14 Dose: 1 tab Miscellaneous (Duragesic Patch Waste) 1 each TD PRN PRN Olanzapine (Zyprexa -) 2.5 mg GT HS [facility] Last Admin: 11/17/16 22:38 Dose: 2.5 mg Potassium Phos/Sodium Phos (Phos-Nak Packet -) 1 packet GT DAILY [facility] Last Admin: 11/18/16 09:15 Dose: 1 packet Ranitidine HCl (Zantac Oral Solution -) 150 mg GT DAILY [facility] Last Admin: 11/18/16 09:14 Dose: 150 mg - Objective Vital Signs: Vital Signs Temperature 99.6 F 11/18/16 07:40 Pulse Rate 83 11/18/16 07:40 Respiratory Rate 20 11/18/16 07:40 Blood Pressure 105/60 11/17/16 22:00 O2 Sat by Pulse Oximetry (%) 97 11/17/16 21:00 Constitutional: Yes: Well Nourished, No Distress, Calm Cardiovascular: Yes: Regular Rate and Rhythm Respiratory: Yes: Regular Gastrointestinal: Yes: Normal Bowel Sounds Extremities: Yes: Amputation (BLLE) Neurological: Yes: Pre-Existing Deficit Labs: CBC, BMP 11/17/16 11:30 11/18/16 06:30 INR, PTT INR 1.02 (0.82-1.09) 11/16/16 22:10 Problem List - Problems (1) C. difficile diarrhea Assessment/Plan: repeat Cdiff stool is negative Code(s): A04.7 - ENTEROCOLITIS DUE TO CLOSTRIDIUM DIFFICILE (2) Drug (multiple) resistant infection Assessment/Plan: -hx of CRE/MRSA/ESBl UC/BC: Microbiology 11/16/16 23:00 Urine Culture - Preliminary Urine - Urine - Catheterized Group D Strep Or Entero Coccus Yeast Like Organism 11/17/16 16:00 Clostridium difficile Antigen (JAKY) - Final Stool Clostridium difficile Toxin Assay - Final 11/16/16 22:10 Blood Culture - Preliminary Blood - Peripheral Venous NO GROWTH OBTAINED AFTER 24 HOURS, INCUBATION TO CONTINUE FOR 4 DAYS. 11/16/16 22:10 Blood Culture - Preliminary Blood - Peripheral Venous NO GROWTH OBTAINED AFTER 24 HOURS, INCUBATION TO CONTINUE FOR 4 DAYS. Code(s): 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 (3) Fever Assessment/Plan: -ID consult -repeat labs in AM -on IV abx, gentamicin changed to tigecycline -has a decubitus ulcer, to be seen by Vascular Sx, continue to use santyl and wound vac. Code(s): R50.9 - FEVER, UNSPECIFIED (4) Dehydration Assessment/Plan: -IVF- NS -monitor labs for BUN/Cr trending down Code(s): E86.0 - DEHYDRATION (5) Leukocytosis Assessment/Plan: -responding to IV abx -ID consult -IVF -repeat labs in AM Code(s): D72.829 - ELEVATED WHITE BLOOD CELL COUNT, UNSPECIFIED (6) Functional quadriplegia Code(s): R53.2 - FUNCTIONAL QUADRIPLEGIA Assessment/Plan see problem list
[2016-11-18] MEDS: DOXAZOSIN MESYLATE 2 MG TABLET (FP) GT SCH (11:20)
[2016-11-18] MEDS: ESCITALOPRAM OXALATE 5 MG/5 ML GT SCH (11:20)
[2016-11-18] MEDS: MULTIVIT-MINERALS 236 ML ML PEG SCH (11:21)
[2016-11-18] MEDS: TIGECYCLINE 50 MG in DEXTROSE 5%-WATER - 100 ML IVPB SCH (11:21)
[2016-11-18] MEDS ORDERED: VANCOMYCIN 750 MG in DEXTROSE 5%-WATER - 250 ML IVPB ONE (12:30)
--- NOTE | 2016-11-18 12:57 | PN ---
Progress Note (short form) - Note Progress Note: Renal follow for GIANNI Pt seen and examined at the bedside no overnight events bp stable, no fever conley in place Vital Signs Temperature 98.1 F 11/18/16 10:00 Pulse Rate 88 11/18/16 10:00 Respiratory Rate 18 11/18/16 10:00 Blood Pressure 104/53 11/18/16 10:00 O2 Sat by Pulse Oximetry (%) 97 11/17/16 21:00 Intake & Output 11/15/16 11/16/16 11/17/16 11/18/16 23:59 23:59 23:59 23:59 Intake Total 1857 1264 Output Total 1000 500 Balance 857 764 Weight 120 lb 112 lb 103 lb 8 oz Gen: NAD, awake and alert CVS: RRR Lungs :CTA Abd: soft NT, G-tube in place Ext: b/L BKA, no edema CBC, BMP 11/17/16 11:30 11/18/16 06:30 Current Medications Acetaminophen (Tylenol Oral Solution -) 650 mg GT Q6H PRN PRN Reason: FEVER OR PAIN Last Admin: 11/18/16 09:15 Dose: 650 mg Amino Acids (Prosource No Carb Liquid Pkt) 30 ml PEG BID [facility] Last Admin: 11/18/16 09:14 Dose: 30 ml Ascorbic Acid (Vitamin C Oral Solution -) 500 mg GT TID [facility] Collagenase (Santyl -) 1 applic TP [email or web address]@1000 [facility] Last Admin: 11/17/16 17:06 Dose: 1 applic Doxazosin Mesylate (Cardura -) 2 mg GT DAILY [facility] Last Admin: 11/18/16 11:20 Dose: 2 mg Escitalopram Oxalate (Lexapro Oral Solution -) 10 mg GT DAILY [facility] Last Admin: 11/18/16 11:20 Dose: 10 mg Fentanyl (Duragesic 12mcg Patch -) 1 patch TD Q72H [facility] Ferrous Sulfate (Feosol) 330 mg PEG TID [facility] Last Admin: 11/18/16 06:35 Dose: 330 mg Heparin Sodium (Porcine) (Heparin -) 5,000 unit SQ BID [facility] Last Admin: 11/18/16 09:14 Dose: 5,000 unit Sodium Chloride (Normal Saline -) 1,000 mls @ 83 mls/hr IV ASDIR [facility] Last Admin: 08/23/17 17:06 Dose: 83 mls/hr Vancomycin HCl 750 mg/ (Dextrose) 250 mls @ 250 mls/hr IVPB ONCE ONE PRN Reason: Protocol Stop: 11/18/16 13:29 Insulin Aspart (Novolog Vial Sliding Scale -) 1 vial SQ TIDAC [facility] PRN Reason: Protocol Last Admin: 11/18/16 11:21 Dose: 2 units Insulin Detemir (Levemir Vial) 22 units SQ AM [facility] Last Admin: 11/18/16 06:36 Dose: Not Given Insulin Detemir (Levemir Vial) 15 units SQ HS [facility] Last Admin: 11/17/16 22:44 Dose: 15 unit Lactobacillus Acidophilus (Bacid -) 1 tab GT DAILY [facility] Last Admin: 11/18/16 09:14 Dose: 1 tab Miscellaneous (Duragesic Patch Waste) 1 each TD PRN PRN Olanzapine (Zyprexa -) 2.5 mg GT HS [facility] Last Admin: 11/17/16 22:38 Dose: 2.5 mg Potassium Phos/Sodium Phos (Phos-Nak Packet -) 1 packet GT DAILY [facility] Last Admin: 11/18/16 09:15 Dose: 1 packet Ranitidine HCl (Zantac Oral Solution -) 150 mg GT DAILY [facility] Last Admin: 11/18/16 09:14 Dose: 150 mg A/P 81 year old woman well known to our service with PMhx of GIANNI's, Hypernatremia/ dehydration, UTI's, Hypertension, DM, PVD s/p amputations (B/L) who [place] with Fever and found to have Sepsis secondary to suspected UTI with BUN/ Cr of 130/2.2. #Acute Renal Failure in setting of Sepsis Renal function improving with IVF BUN remains high -> check stool occult blood to r/o any bleeding as etiology for high BUN Continue isotonic IVF for now Trend BUN/Cr #Renal Injury with aminoglycocide exposure No further Gentaicin to be given as per ID #Sepsis/UTI abx as per ID isotonic IVF #Hypernatremia give isotonic fluids for now given sepsis, hypovoleia #Hyperkalemia improved on Nephro tube feeds Vahid Manzano DO
[2016-11-18] MEDS: fentaNYL 12mcg/hr PATCH.TD72 TD SCH (13:00)
--- NOTE | 2016-11-18 13:46 | PN ---
Physical Exam: SUBJECTIVE: Patient seen and examined. No overnight events. Not offering any complaints. BP stable. Gonzales in place. OBJECTIVE: Vital Signs Period Temp Pulse Resp BP Sys/Chávez Pulse Ox Last 24 Hr 98.1 F-101.8 F 83-96 18-22 100-110/53-90 97 GENERAL: Non-verbal, NAD HEAD: Normal with no signs of trauma. EYES: Pupils equal, round and reactive to light, extraocular movements intact, sclera anicteric, conjunctiva clear. No lid lag. EARS, NOSE, THROAT: Ears normal, nares patent, oropharynx clear without exudates. Moist mucous membranes. NECK: supple without lymphadenopathy, JVD, or masses. LUNGS: Breath sounds equal, clear to auscultation bilaterally. No wheezes, and no crackles. No accessory muscle use. HEART: Regular rate and rhythm, normal S1 and S2 without murmur, rub or gallop. ABDOMEN: G-tube placement Soft, not distended, normoactive bowel sounds, no guarding, no rebound, no masses. No hepatomegaly or splenomegaly. MUSCULOSKELETAL: Normal range of motion at all joints. No bony deformities or tenderness. No CVA tenderness. UPPER EXTREMITIES: 2+ pulses, warm, well-perfused. No cyanosis. No clubbing. Cap refill <2 seconds. No peripheral edema. LOWER EXTREMITIES: B/L BKA PSYCHIATRIC: Cooperative. Good eye contact. Appropriate mood and affect. SKIN: Warm, dry, normal turgor, no rashes or lesions noted. Large sacral decubitus ulcer- clean, no purulence, no odor, no erythema Laboratory Results - last 24 hr 11/16/16 11/17/16 11/17/16 23:00 10:45 18:11 Sodium Potassium Chloride Carbon Dioxide Anion Gap BUN Creatinine POC Glucometer 233 Random Glucose Calcium Phosphorus Magnesium Urine Color Yellow Urine Appearance Turbid Urine pH 5.0 Ur Specific [place] <= 1.005 Urine Protein 2+ H Urine Glucose (UA) Negative Urine Ketones Negative Urine Blood 1+ H Urine Nitrite Negative Urine Bilirubin Negative Urine Urobilinogen Negative Ur Leukocyte Esterase 1+ H Urine RBC 15 Urine WBC >100 Ur Epithelial Cells Few Amorphous Urates Moderate Urine Bacteria Many Gentamicin Trough Blood Type O POSITIVE Antibody Screen Positive H Antibody Identification WARM AUTOIMMUNE HEMO ANEMIA Antigen Identification Y Direct Antiglob Test Positive H 11/17/16 11/18/1617 22:41 05:50 06:30 Sodium Potassium Chloride Carbon Dioxide Anion Gap BUN Creatinine POC Glucometer 125 84 Random Glucose Calcium Phosphorus Magnesium Urine Color Urine Appearance Urine pH Ur Specific [place] Urine Protein Urine Glucose (UA) Urine Ketones Urine Blood Urine Nitrite Urine Bilirubin Urine Urobilinogen Ur Leukocyte Esterase Urine RBC Urine WBC Ur Epithelial Cells Amorphous Urates Urine Bacteria Gentamicin Trough 3.7 H* D Blood Type Antibody Screen Antibody Identification Antigen Identification Direct Antiglob Test 11/18/16 11/18/16 06:30 11:19 Sodium 150 H Potassium 4.3 Chloride 115 H Carbon Dioxide 26 Anion Gap 9 BUN 120 H* Creatinine 1.4 H D POC Glucometer 150 Random Glucose 77 D Calcium 7.9 L Phosphorus 5.3 H D Magnesium 2.9 H D Urine Color Urine Appearance Urine pH Ur Specific [place] Urine Protein Urine Glucose (UA) Urine Ketones Urine Blood Urine Nitrite Urine Bilirubin Urine Urobilinogen Ur Leukocyte Esterase Urine RBC Urine WBC Ur Epithelial Cells Amorphous Urates Urine Bacteria Gentamicin Trough Blood Type Antibody Screen Antibody Identification Antigen Identification Direct Antiglob Test Active Medications Generic Name Dose Route Start Last Admin Trade Name Freq PRN Reason Stop Dose Admin Acetaminophen 650 mg 11/17/16 08:04 11/18/16 09:15 Tylenol Oral Solution - GT 650 mg Q6H PRN Administration FEVER OR PAIN Amino Acids 30 ml 11/17/16 22:00 11/18/16 09:14 Prosource No Carb Liquid Pkt PEG 30 ml BID [facility] Administration Ascorbic Acid 500 mg 11/18/16 09:25 Vitamin C Oral Solution - GT TID [facility] Collagenase 1 applic 11/17/16 15:15 11/17/16 17:06 Santyl - TP 1 applic [email or web address]@1000 [facility] Administration Doxazosin Mesylate 2 mg 11/17/16 10:00 11/18/16 11:20 Cardura - GT 2 mg DAILY [facility] Administration Escitalopram Oxalate 10 mg 11/17/16 10:00 11/18/16 11:20 Lexapro Oral Solution - GT 10 mg DAILY [facility] Administration Fentanyl 1 patch 11/18/16 12:17 11/18/16 13:00 Duragesic 12mcg Patch - TD 1 patch Q72H [facility] Administration Ferrous Sulfate 330 mg 11/18/16 06:15 11/18/16 06:35 Feosol PEG 330 mg TID [facility] Administration Heparin Sodium (Porcine) 5,000 unit 11/17/16 10:00 11/18/16 09:14 Heparin - SQ 5,000 unit BID [facility] Administration Sodium Chloride 1,000 mls @ 83 mls/hr 11/17/16 17:15 11/17/16 17:06 Normal Saline - IV 83 mls/hr ASDIR [facility] Administration Insulin Aspart 1 vial 11/17/16 11:00 11/18/16 11:21 Novolog Vial Sliding Scale - SQ 2 units TIDAC [facility] Administration Protocol Insulin Detemir 22 units 11/17/16 08:00 11/18/16 06:36 Levemir Vial SQ Not Given AM [facility] Insulin Detemir 15 units 11/17/16 22:00 11/17/16 22:44 Levemir Vial SQ 15 unit HS [facility] Administration Lactobacillus Acidophilus 1 tab 11/17/16 10:00 11/18/16 09:14 Bacid - GT 1 tab DAILY [facility] Administration Miscellaneous 1 each 11/17/16 08:12 Duragesic Patch Waste TD PRN PRN Olanzapine 2.5 mg 11/17/16 22:00 11/17/16 22:38 Zyprexa - GT 2.5 mg HS [facility] Administration Potassium Phos/Sodium Phos 1 packet 11/17/16 10:00 11/18/16 09:15 Phos-Nak Packet - GT 1 packet DAILY [facility] Administration Ranitidine HCl 150 mg 11/17/16 10:00 11/18/16 09:14 Zantac Oral Solution - GT 150 mg DAILY [facility] Administration 81 year old woman well known to our service with a PMH of dementia, multi-drug resistance, MRSA, c. diff, recent sepsis, B/L BKA who presented [place] with Fever and found to have Sepsis secondary to suspected UTI with BUN/Cr of 130/ 2.2. ASSESSMENT/PLAN: 1) Urinary tract infection/Fever -ordered Vancomycin 750mg 1x -Stop Gentamcyin and Tigecycline -Vanc trough in the morning -strict contact isolation Visit type - Emergency Visit Emergency Visit: Yes ED Registration Date: 11/16/16 Care time: The patient presented to the Emergency Department on the above date and was hospitalized for further evaluation of their emergent condition. - New Patient This patient is new to me today: No - Critical Care Critical Care patient: No
--- NOTE | 2016-11-18 14:30 | PN ---
Teaching Attending Note Name of Resident: Yoni Watson ATTENDING PHYSICIAN STATEMENT I saw and evaluated the patient. I reviewed the resident's note and discussed the case with the resident. I agree with the resident's findings and plan as documented. SUBJECTIVE: OBJECTIVE: ASSESSMENT AND PLAN: Recurrent UTI Fever/ leukocytosis improved OBS Stat dose vanco given Check vanco trough am Contact precautions
[2016-11-18] MEDS: BANATROL PLUS POWDER PACKET GT SCH ×2 (15:06→22:38)
[2016-11-18] MEDS: ASCORBIC ACID 500 MG/5 ML UNIT DOSE CUP GT SCH ×2 (15:07→22:28)
[2016-11-18] MEDS: SODIUM CHLORIDE 1,000 ML IV SCH (17:08)
[2016-11-18] MEDS: OLANZapine 2.5 MG TABLET GT SCH (22:27)
[2016-11-19] MEDS: BANATROL PLUS POWDER PACKET GT SCH ×3 (05:45→22:02)
[2016-11-19] MEDS: ASCORBIC ACID 500 MG/5 ML UNIT DOSE CUP GT SCH ×3 (05:46→22:04)
[2016-11-19] MEDS: INSULIN DETEMIR 100 UNITS/ML MDV SQ SCH ×2 (06:16→22:28)
[2016-11-19] MEDS: FERROUS SO4 300 MG/5 ML ORAL SOLN UNIT DOSE CUPS PEG SCH ×3 (06:16→22:02)
[2016-11-19] MEDS: INSULIN SLIDING SCALE (NOVOLOG) 1 VIAL SQ SCH ×3 (06:22→16:54)
[2016-11-19 08:17] LABS: MCH 29.8 pg (25.7-33.7); MEAN CELL VOLUME 93.1 fl (80-96); MEAN PLT VOLUME 9.2 fl (7.5-11.1); PLATELET COUNT 217 K/MM3 (134-434); RDW 20.3 % (11.6-15.6); WHITE BLOOD COUNT 8.8 K/mm3 (4.0-10.0)
[2016-11-19 08:34] LABS: ALBUMIN 1.6 g/dl (3.4-5.0); ANION GAP 9 (8-16); CALCIUM 7.6 mg/dL (8.5-10.1); CO2 23 mmol/L (21-32); MAGNESIUM 2.6 mg/dL (1.8-2.4)
[2016-11-19 08:39] LABS: ALK PHOS 117 U/L (45-117); BILIRUBIN,TOTAL 0.3 mg/dL (0.2-1.0); CREATININE 1.1 mg/dL (0.55-1.02); GLUCOSE,RANDOM 134 mg/dL (74-106); PHOSPHOROUS 4.6 mg/dL (2.5-4.9); SGOT/AST 14 U/L (15-37); SGPT/ALT 18 U/L (12-78); TOT PROT 6.6 g/dl (6.4-8.2)
[2016-11-19 09:03] LABS: ANISOCYTOSIS 1+; PLATELET ESTIMATE ADEQUATE (NORMAL); TOTAL CELLS COUNTED 100
[2016-11-19] MEDS: RANITIDINE HCL 150 MG/10 ML UNIT-DOSE CUP GT SCH (09:53)
[2016-11-19] MEDS: DOXAZOSIN MESYLATE 2 MG TABLET (FP) GT SCH (09:53)
[2016-11-19] MEDS: LACTOBACILLUS ACIDOPHILUS 1 EACH TAB (FP) GT SCH (09:53)
[2016-11-19] MEDS: NAPH,MB-DB/K PH,MBDB POWDER PACKET GT SCH (09:54)
[2016-11-19] MEDS: AMINO ACIDS/PROTEIN HYDROLYS 30 ML LIQUID.PKT PEG SCH ×2 (09:54→22:03)
[2016-11-19] MEDS: MULTIVIT-MINERALS 236 ML ML PEG SCH (09:55)
[2016-11-19] MEDS: HEPARIN NA (PORCINE) 5,000 UNITS/ML 1ML VIAL SQ SCH ×2 (09:55→22:03)
[2016-11-19] MEDS: ESCITALOPRAM OXALATE 5 MG/5 ML GT SCH (09:56)
[2016-11-19] MEDS: COLLAGENASE CLOSTRIDIUM HIST. 30 GRAMS TUBE TP SCH (09:58)
[2016-11-19] MEDS ORDERED: fentaNYL 12mcg/hr PATCH.TD72 TD SCH (10:00)
[2016-11-19] MEDS: SODIUM CHLORIDE 0.45% 1,000 ML IV SCH (10:31)
--- NOTE | 2016-11-19 10:35 | PN ---
Progress Note, Physician Chief Complaint: Sepsis,UTI History of Present Illness: Came in for sepsis and ARF secondary to UTI, NAD, in bed, opens eyes to name. - Current Medication List Current Medications: Active Medications Acetaminophen (Tylenol Oral Solution -) 650 mg GT Q6H PRN PRN Reason: FEVER OR PAIN Last Admin: 11/18/16 09:15 Dose: 650 mg Amino Acids (Prosource No Carb Liquid Pkt) 30 ml PEG BID [facility] Last Admin: 11/19/16 09:54 Dose: 30 ml Ascorbic Acid (Vitamin C Oral Solution -) 500 mg GT TID [facility] Last Admin: 11/19/16 05:46 Dose: 500 mg Collagenase (Santyl -) 1 applic TP [id number]@1000 [facility] Last Admin: 11/19/16 09:58 Dose: 1 applic Doxazosin Mesylate (Cardura -) 2 mg GT DAILY [facility] Last Admin: 11/19/16 09:53 Dose: 2 mg Escitalopram Oxalate (Lexapro Oral Solution -) 10 mg GT DAILY [facility] Last Admin: 11/19/16 09:56 Dose: 10 mg Fentanyl (Duragesic 12mcg Patch -) 1 patch TD Q72H [facility] Last Admin: 11/18/16 13:00 Dose: 1 patch Ferrous Sulfate (Feosol) 330 mg PEG TID [facility] Last Admin: 11/19/16 06:16 Dose: 330 mg Heparin Sodium (Porcine) (Heparin -) 5,000 unit SQ BID [facility] Last Admin: 11/19/16 09:55 Dose: 5,000 unit Sodium Chloride (1/2 Normal Saline) 1,000 mls @ 75 mls/hr IV ASDIR [facility] Insulin Aspart (Novolog Vial Sliding Scale -) 1 vial SQ TIDAC [facility] PRN Reason: Protocol Last Admin: 11/19/16 10:25 Dose: Not Given Insulin Detemir (Levemir Vial) 22 units SQ AM [facility] Last Admin: 11/19/16 06:16 Dose: 22 units Insulin Detemir (Levemir Vial) 15 units SQ HS [facility] Last Admin: 11/18/16 22:42 Dose: 15 unit Lactobacillus Acidophilus (Bacid -) 1 tab GT DAILY [facility] Last Admin: 11/19/16 09:53 Dose: 1 tab Miscellaneous (Duragesic Patch Waste) 1 each TD PRN PRN Olanzapine (Zyprexa -) 2.5 mg GT HS [facility] Last Admin: 11/18/16 22:27 Dose: 2.5 mg Potassium Phos/Sodium Phos (Phos-Nak Packet -) 1 packet GT DAILY [facility] Last Admin: 11/19/16 09:54 Dose: 1 packet Ranitidine HCl (Zantac Oral Solution -) 150 mg GT DAILY [facility] Last Admin: 11/19/16 09:53 Dose: 150 mg - Objective Vital Signs: Vital Signs Temperature 98.3 F 11/19/16 06:50 Pulse Rate 64 11/19/16 06:50 Respiratory Rate 20 11/19/16 06:50 Blood Pressure 146/77 11/19/16 06:50 O2 Sat by Pulse Oximetry (%) 98 11/18/16 21:00 Constitutional: Yes: Well Nourished, No Distress, Calm Cardiovascular: Yes: Regular Rate and Rhythm Respiratory: Yes: Regular Extremities: Yes: Amputation (BLLE) Edema: No Peripheral Pulses WNL: Yes Wound/Incision: Yes: Dressing Dry and Intact Neurological: Yes: Alert, Pre-Existing Deficit Labs: CBC, BMP 11/19/16 06:00 11/19/16 06:00 INR, PTT INR 1.02 (0.82-1.09) 11/16/16 22:10 Problem List - Problems (1) Drug (multiple) resistant infection Assessment/Plan: -hx of CRE/MRSA/ESBl UC/BC: Microbiology Microbiology 11/16/16 23:00 Urine Culture - Preliminary Urine - Urine - Catheterized Group D Strep Or Entero Coccus Yeast Like Organism 11/16/16 22:10 Blood Culture - Preliminary Blood - Peripheral Venous Pending Organism 11/16/16 22:10 Blood Culture - Preliminary Blood - Peripheral Venous NO GROWTH OBTAINED AFTER 48 HOURS, INCUBATION TO CONTINUE FOR 3 DAYS. 11/17/16 16:00 Clostridium difficile Antigen (JAKY) - Final Stool Clostridium difficile Toxin Assay - Final -received vancomycin yesterday, random serum vanco 10.9 -ID on board -IV abx as per ID Code(s): 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 (2) Fever Assessment/Plan: -ID consult -repeat labs in AM -on IV abx -has a decubitus ulcer, to be seen by Vascular Sx, continue to use santyl and wound vac. Code(s): R50.9 - FEVER, UNSPECIFIED (3) Dehydration Assessment/Plan: -IVF- NS, BUN/Cr much improved -monitor labs for BUN/Cr trending down Code(s): E86.0 - DEHYDRATION (4) Leukocytosis Assessment/Plan: -normalized -responding to IV abx -ID consult -IVF -repeat labs in AM Code(s): D72.829 - ELEVATED WHITE BLOOD CELL COUNT, UNSPECIFIED (5) Functional quadriplegia Code(s): R53.2 - FUNCTIONAL QUADRIPLEGIA Assessment/Plan see problem list
--- NOTE | 2016-11-19 12:38 | PN ---
Progress Note (short form) - Note Progress Note: Renal follow for GIANNI Pt seen and examined at the bedside no overnight evens [t is awake and alert but not speaking Vital Signs Temperature 100 F H 11/19/16 10:00 Pulse Rate 85 11/19/16 10:00 Respiratory Rate 20 11/19/16 10:00 Blood Pressure 110/60 11/19/16 10:00 O2 Sat by Pulse Oximetry (%) 98 11/18/16 21:00 Intake & Output 11/16/16 11/17/16 11/18/16 11/19/16 23:59 23:59 23:59 23:59 Intake Total 1857 1866 1652 Output Total 1000 1100 900 Balance 857 766 752 Weight 120 lb 112 lb 103 lb 8 oz 104 lb 6 oz Gen: NAD, awake and alert CVS: RRR Lungs :CTA Abd: soft NT, G-tube in place Ext: b/L BKA, no edema CBC, BMP 11/19/16 06:00 11/19/16 06:00 Current Medications Acetaminophen (Tylenol Oral Solution -) 650 mg GT Q6H PRN PRN Reason: FEVER OR PAIN Last Admin: 11/18/16 09:15 Dose: 650 mg Amino Acids (Prosource No Carb Liquid Pkt) 30 ml PEG BID [facility] Last Admin: 11/19/16 09:54 Dose: 30 ml Ascorbic Acid (Vitamin C Oral Solution -) 500 mg GT TID [facility] Last Admin: 11/19/16 05:46 Dose: 500 mg Collagenase (Santyl -) 1 applic TP [email or web address]@1000 [facility] Last Admin: 11/19/16 09:58 Dose: 1 applic Doxazosin Mesylate (Cardura -) 2 mg GT DAILY [facility] Last Admin: 11/19/16 09:53 Dose: 2 mg Escitalopram Oxalate (Lexapro Oral Solution -) 10 mg GT DAILY [facility] Last Admin: 11/19/16 09:56 Dose: 10 mg Fentanyl (Duragesic 12mcg Patch -) 1 patch TD Q72H [facility] Last Admin: 11/18/16 13:00 Dose: 1 patch Ferrous Sulfate (Feosol) 330 mg PEG TID [facility] Last Admin: 11/19/16 06:16 Dose: 330 mg Heparin Sodium (Porcine) (Heparin -) 5,000 unit SQ BID [facility] Last Admin: 08/25/17 09:55 Dose: 5,000 unit Sodium Chloride (1/2 Normal Saline) 1,000 mls @ 75 mls/hr IV ASDIR [facility] Last Admin: 11/19/16 10:31 Dose: 75 mls/hr Vancomycin HCl (Vancomycin (Pre-Docked)) 250 mls @ 200 mls/hr IVPB ONCE ONE Stop: 11/19/16 16:14 Insulin Aspart (Novolog Vial Sliding Scale -) 1 vial SQ TIDAC [facility] PRN Reason: Protocol Last Admin: 11/19/16 10:25 Dose: Not Given Insulin Detemir (Levemir Vial) 22 units SQ AM [facility] Last Admin: 11/19/16 06:16 Dose: 22 units Insulin Detemir (Levemir Vial) 15 units SQ HS [facility] Last Admin: 11/18/16 22:42 Dose: 15 unit Lactobacillus Acidophilus (Bacid -) 1 tab GT DAILY [facility] Last Admin: 11/19/16 09:53 Dose: 1 tab Miscellaneous (Duragesic Patch Waste) 1 each TD PRN PRN Olanzapine (Zyprexa -) 2.5 mg GT HS [facility] Last Admin: 11/18/16 22:27 Dose: 2.5 mg Potassium Phos/Sodium Phos (Phos-Nak Packet -) 1 packet GT DAILY [facility] Last Admin: 11/19/16 09:54 Dose: 1 packet Ranitidine HCl (Zantac Oral Solution -) 150 mg GT DAILY [facility] Last Admin: 11/19/16 09:53 Dose: 150 mg A/P 81 year old woman well known to our service with PMhx of GIANNI's, Hypernatremia/ dehydration, UTI's, Hypertension, DM, PVD s/p amputations (B/L) who presented from [place] with Fever and found to have Sepsis secondary to suspected UTI with BUN/ Cr of 130/2.2. #Acute Renal Failure in setting of Sepsis Renal function with significant improvement change IVF to 1/2 NS now Trend BUN/Cr #Hypernatremia Continue hypotonic IVF and free water via G-tube Trend Na daily #Sepsis/UTI abx as per ID blood cultures growing gram postive as per preliminary culture report #Hypernatremia give isotonic fluids for now given sepsis, hypovoleia #Hyperkalemia improved on Nephro tube feeds Vahid Manzano DO
--- NOTE | 2016-11-19 13:11 | PN ---
Teaching Attending Note Name of Resident: Yoni Watson ATTENDING PHYSICIAN STATEMENT I saw and evaluated the patient. I reviewed the resident's note and discussed the case with the resident. I agree with the resident's findings and plan as documented. SUBJECTIVE: moaning more alert OBJECTIVE: Vital Signs Period Temp Pulse Resp BP Sys/Chávez Pulse Ox Last 24 Hr 97.8 F-100 F 64-87 18-20 100-146/56-77 98 cor-rrr lungs decreased bs at bases abd- soft, nt +GT sacral ulcer is clean ext no edema CBC, BMP 11/19/16 06:00 11/19/16 06:00 Microbiology 11/16/16 22:10 Blood - Peripheral Venous Blood Culture - Preliminary Pending Organism 11/16/16 23:00 Urine - Urine - Catheterized Urine Culture - Preliminary Group D Strep Or Entero Coccus Yeast Like Organism 11/16/16 22:10 Blood - Peripheral Venous Blood Culture - Preliminary Pending Organism 11/17/16 16:00 Stool Clostridium difficile Antigen (JAKY) - Final 11/17/16 16:00 Stool Clostridium difficile Toxin Assay - Final a/p gram positive bacteremia day #2 vancomycin repeat blood cultures f/u vanco level in am echo history of CRE- strict contact isolation history of cdiff radha/ckd-improving with hydration ASSESSMENT AND PLAN: as above Problem List - Problems (1) Fever Code(s): R50.9 - FEVER, UNSPECIFIED (2) UTI (urinary tract infection) Code(s): N39.0 - URINARY TRACT INFECTION, SITE NOT SPECIFIED Qualifiers: Urinary tract infection type: acute cystitis Hematuria presence: without hematuria Qualified Code(s): N30.00 - Acute cystitis without hematuria (3) C. difficile diarrhea Code(s): A04.7 - ENTEROCOLITIS DUE TO CLOSTRIDIUM DIFFICILE (4) Drug (multiple) resistant infection Code(s): 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
[2016-11-19] MEDS ORDERED: VANCOMYCIN 1 GRAM (PRE-DOCKED) 250 ML IVPB ONE (15:00)
[2016-11-19] MEDS: ACETAMINOPHEN 650 MG/20.3 ML ORAL SOLUTION (CUPS) GT PRN (15:56)
[2016-11-19] MEDS ORDERED: INSULIN (NOVOLOG) ASPART 100 UNITS/ML 10ML VIAL ONE (16:53)
[2016-11-19] MEDS: OLANZapine 2.5 MG TABLET GT SCH (22:04)
[2016-11-20] MEDS: SODIUM CHLORIDE 0.45% 1,000 ML IV SCH ×2 (04:00→10:56)
[2016-11-20] MEDS: FERROUS SO4 300 MG/5 ML ORAL SOLN UNIT DOSE CUPS PEG SCH ×3 (06:05→21:43)
[2016-11-20] MEDS: BANATROL PLUS POWDER PACKET GT SCH ×3 (06:06→21:42)
[2016-11-20] MEDS: ASCORBIC ACID 500 MG/5 ML UNIT DOSE CUP GT SCH ×3 (06:06→21:42)
[2016-11-20] MEDS: INSULIN DETEMIR 100 UNITS/ML MDV SQ SCH ×2 (06:34→21:51)
[2016-11-20] MEDS: INSULIN SLIDING SCALE (NOVOLOG) 1 VIAL SQ SCH ×3 (06:34→17:35)
[2016-11-20 10:06] LABS: BASOPHIL 0.4 % (0-2.0); EOSINOPHIL 1.6 % (0-4.5); MCH 29.8 pg (25.7-33.7); MCHC 31.9 g/dl (32.0-36.0); MEAN CELL VOLUME 93.3 fl (80-96); MEAN PLT VOLUME 9.7 fl (7.5-11.1); NEUTROPHILS 61.7 % (42.8-82.8); PLATELET COUNT 204 K/MM3 (134-434); RDW 20.4 % (11.6-15.6); WHITE BLOOD COUNT 7.9 K/mm3 (4.0-10.0)
[2016-11-20 10:36] LABS: ANION GAP 8 (8-16); CALCIUM 7.7 mg/dL (8.5-10.1); CO2 23 mmol/L (21-32); GLUCOSE,RANDOM 250 mg/dL (74-106); MAGNESIUM 2.5 mg/dL (1.8-2.4); PHOSPHOROUS 3.8 mg/dL (2.5-4.9)
[2016-11-20] MEDS: AMINO ACIDS/PROTEIN HYDROLYS 30 ML LIQUID.PKT PEG SCH ×2 (10:55→21:43)
[2016-11-20] MEDS: HEPARIN NA (PORCINE) 5,000 UNITS/ML 1ML VIAL SQ SCH ×2 (10:55→21:43)
[2016-11-20] MEDS: RANITIDINE HCL 150 MG/10 ML UNIT-DOSE CUP GT SCH (10:55)
[2016-11-20] MEDS: LACTOBACILLUS ACIDOPHILUS 1 EACH TAB (FP) GT SCH (10:55)
[2016-11-20] MEDS: NAPH,MB-DB/K PH,MBDB POWDER PACKET GT SCH (10:56)
[2016-11-20] MEDS ORDERED: PT OWN MED DRAWER 7, Y5N ONE ×4 (11:07→21:07)
--- NOTE | 2016-11-20 11:20 | PN ---
Progress Note, Physician Chief Complaint: My first encounter with this patient during this current admision chart and records reviewed GT feedings, wound vac in place - Current Medication List Current Medications: Active Medications Acetaminophen (Tylenol Oral Solution -) 650 mg GT Q6H PRN PRN Reason: FEVER OR PAIN Last Admin: 11/19/16 15:56 Dose: 650 mg Amino Acids (Prosource No Carb Liquid Pkt) 30 ml PEG BID [facility] Last Admin: 11/20/16 10:55 Dose: 30 ml Ascorbic Acid (Vitamin C Oral Solution -) 500 mg GT TID [facility] Last Admin: 11/20/16 06:06 Dose: 500 mg Collagenase (Santyl -) 1 applic TP [email or web address] [facility] Last Admin: 11/19/16 09:58 Dose: 1 applic Doxazosin Mesylate (Cardura -) 2 mg GT DAILY [facility] Last Admin: 11/19/16 09:53 Dose: 2 mg Escitalopram Oxalate (Lexapro Oral Solution -) 10 mg GT DAILY [facility] Last Admin: 11/19/16 09:56 Dose: 10 mg Fentanyl (Duragesic 12mcg Patch -) 1 patch TD Q72H [facility] Last Admin: 11/18/16 13:00 Dose: 1 patch Ferrous Sulfate (Feosol) 330 mg PEG TID [facility] Last Admin: 11/20/16 06:05 Dose: 330 mg Heparin Sodium (Porcine) (Heparin -) 5,000 unit SQ BID [facility] Last Admin: 11/20/16 10:55 Dose: 5,000 unit Sodium Chloride (1/2 Normal Saline) 1,000 mls @ 75 mls/hr IV ASDIR [facility] Last Admin: 11/20/16 10:56 Dose: Not Given Insulin Aspart (Novolog Vial Sliding Scale -) 1 vial SQ TIDAC [facility] PRN Reason: Protocol Last Admin: 11/20/16 06:34 Dose: 8 units Insulin Detemir (Levemir Vial) 22 units SQ AM [facility] Last Admin: 11/20/16 06:34 Dose: 22 units Insulin Detemir (Levemir Vial) 15 units SQ HS [facility] Last Admin: 11/19/16 22:28 Dose: Not Given Lactobacillus Acidophilus (Bacid -) 1 tab GT DAILY [facility] Last Admin: 11/20/16 10:55 Dose: 1 tab Miscellaneous (Duragesic Patch Waste) 1 each TD PRN PRN Olanzapine (Zyprexa -) 2.5 mg GT HS [facility] Last Admin: 11/19/16 22:04 Dose: 2.5 mg Potassium Phos/Sodium Phos (Phos-Nak Packet -) 1 packet GT DAILY [facility] Last Admin: 11/20/16 10:56 Dose: 1 packet Ranitidine HCl (Zantac Oral Solution -) 150 mg GT DAILY [facility] Last Admin: 11/20/16 10:55 Dose: 150 mg - Objective Vital Signs: Vital Signs Temperature 97.9 F 11/19/16 22:00 Pulse Rate 80 11/19/16 22:00 Respiratory Rate 20 11/19/16 22:00 Blood Pressure 121/56 11/19/16 22:00 O2 Sat by Pulse Oximetry (%) 99 11/19/16 21:00 Constitutional: Yes: Mild Distress Eyes: No: WNL HENT: Yes: WNL. No: Thrush Cardiovascular: Yes: Regular Rate and Rhythm, Murmur Respiratory: Yes: WNL Gastrointestinal: Yes: Other (gtube functioning) Genitourinary: Yes: Other Musculoskeletal: Yes: Muscle Weakness Extremities: Yes: Amputation, Other Edema: No Peripheral Pulses WNL: Yes Integumentary: Yes: Pressure Ulcer, Rash Wound/Incision: Yes: Draining (wound vac), Other Neurological: Yes: Pre-Existing Deficit ...Motor Strength: LLE, RLE Psychiatric: Yes: Other Labs: CBC, BMP 11/20/16 10:00 11/20/16 10:00 INR, PTT INR 1.02 (0.82-1.09) 11/16/16 22:10 Problem List - Problems (1) Anemia Code(s): D64.9 - ANEMIA, UNSPECIFIED Qualifiers: Anemia type: iron deficiency Iron deficiency anemia type: unspecified iron deficiency Qualified Code(s): D50.9 - Iron deficiency anemia, unspecified (2) Drug (multiple) resistant infection Code(s): 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 (3) Electrolyte abnormality Code(s): E87.8 - OTH DISORDERS OF ELECTROLYTE AND FLUID BALANCE, NEC (4) Functional quadriplegia Code(s): R53.2 - FUNCTIONAL QUADRIPLEGIA (5) ARF (acute renal failure) Code(s): N17.9 - ACUTE KIDNEY FAILURE, UNSPECIFIED (6) Diabetes Code(s): E11.9 - TYPE 2 DIABETES MELLITUS WITHOUT COMPLICATIONS Qualifiers: Diabetes mellitus type: type 2 Diabetes mellitus complication detail: with other skin ulcer (7) Dysphagia Code(s): R13.10 - DYSPHAGIA, UNSPECIFIED (8) Sacral decubitus ulcer, stage III Code(s): L89.153 - PRESSURE ULCER OF SACRAL REGION, STAGE 3 (9) S/P AKA (above knee amputation) bilateral Code(s): Z89.611 - ACQUIRED ABSENCE OF RIGHT LEG ABOVE KNEE Z89.612 - ACQUIRED ABSENCE OF LEFT LEG ABOVE KNEE Assessment/Plan anemia chronic, monitor and transfuse as needed iv abx per id wound vac draining advanced directoive discussion with family
[2016-11-20] MEDS: ESCITALOPRAM OXALATE 5 MG/5 ML GT SCH (11:28)
[2016-11-20] MEDS: MULTIVIT-MINERALS 236 ML ML PEG SCH (11:28)
[2016-11-20] MEDS: DOXAZOSIN MESYLATE 2 MG TABLET (FP) GT SCH (11:28)
--- NOTE | 2016-11-20 11:37 | PN ---
Progress Note (short form) - Note Progress Note: Renal follow for GIANNI Pt seen and examined at the bedside sleeping, not talking no fevers Vital Signs Temperature 97.9 F 11/19/16 22:00 Pulse Rate 80 11/19/16 22:00 Respiratory Rate 20 11/19/16 22:00 Blood Pressure 121/56 11/19/16 22:00 O2 Sat by Pulse Oximetry (%) 99 11/19/16 21:00 Intake & Output 11/17/16 11/18/16 11/19/16 11/20/16 23:59 23:59 23:59 23:59 Intake Total 1857 1866 4790 1780 Output Total 1000 1100 2000 1650 Balance 715 952 4400 130 Weight 112 lb 103 lb 8 oz 104 lb 6 oz Gen: NAD, awake and alert CVS: RRR Lungs :CTA Abd: soft NT, G-tube in place Ext: b/L BKA, no edema CBC, BMP 11/20/16 10:00 11/20/16 10:00 Laboratory Tests 10/04/16 11/18/16 11/19/16 06:10 06:30 06:00 Calcium 8.0 L 7.6 L Phosphorus 3.0 5.3 H D 4.6 Magnesium 2.8 H D 2.9 H D 2.6 H 11/20/16 10:00 Calcium 7.7 L Phosphorus 3.8 Magnesium 2.5 H Current Medications Acetaminophen (Tylenol Oral Solution -) 650 mg GT Q6H PRN PRN Reason: FEVER OR PAIN Last Admin: 11/19/16 15:56 Dose: 650 mg Amino Acids (Prosource No Carb Liquid Pkt) 30 ml PEG BID [facility] Last Admin: 11/20/16 10:55 Dose: 30 ml Ascorbic Acid (Vitamin C Oral Solution -) 500 mg GT TID [facility] Last Admin: 11/20/16 06:06 Dose: 500 mg Collagenase (Santyl -) 1 applic TP [id number] [facility] Last Admin: 11/19/16 09:58 Dose: 1 applic Doxazosin Mesylate (Cardura -) 2 mg GT DAILY [facility] Last Admin: 11/20/16 11:28 Dose: 2 mg Escitalopram Oxalate (Lexapro Oral Solution -) 10 mg GT DAILY [facility] Last Admin: 11/20/16 11:28 Dose: 10 mg Fentanyl (Duragesic 12mcg Patch -) 1 patch TD Q72H [facility] Last Admin: 11/18/16 13:00 Dose: 1 patch Ferrous Sulfate (Feosol) 330 mg PEG TID [facility] Last Admin: 11/20/16 06:05 Dose: 330 mg Heparin Sodium (Porcine) (Heparin -) 5,000 unit SQ BID [facility] Last Admin: 11/20/16 10:55 Dose: 5,000 unit Potassium Chloride/Sodium Chloride (1/2ns+20meq Kcl) 1,000 mls @ 50 mls/hr IV ASDIR [facility] Insulin Aspart (Novolog Vial Sliding Scale -) 1 vial SQ TIDAC [facility] PRN Reason: Protocol Last Admin: 11/20/16 06:34 Dose: 8 units Insulin Detemir (Levemir Vial) 22 units SQ AM [facility] Last Admin: 11/20/16 06:34 Dose: 22 units Insulin Detemir (Levemir Vial) 15 units SQ HS [facility] Last Admin: 11/19/16 22:28 Dose: Not Given Lactobacillus Acidophilus (Bacid -) 1 tab GT DAILY [facility] Last Admin: 11/20/16 10:55 Dose: 1 tab Miscellaneous (Duragesic Patch Waste) 1 each TD PRN PRN Olanzapine (Zyprexa -) 2.5 mg GT HS [facility] Last Admin: 11/19/16 22:04 Dose: 2.5 mg Potassium Phos/Sodium Phos (Phos-Nak Packet -) 1 packet GT DAILY [facility] Last Admin: 11/20/16 10:56 Dose: 1 packet Ranitidine HCl (Zantac Oral Solution -) 150 mg GT DAILY [facility] Last Admin: 11/20/16 10:55 Dose: 150 mg A/P 81 year old woman well known to our service with PMhx of GIANNI's, Hypernatremia/ dehydration, UTI's, Hypertension, DM, PVD s/p amputations (B/L) who presented [place] with Fever and found to have Sepsis secondary to suspected UTI with BUN/ Cr of 130/2.2. #Acute Renal Failure in setting of Sepsis renal function improved will change IVF to 1/2 Ns with KCL contineu tube feeds #Hypernatremia improved today #Sepsis/UTI abx as per ID blood cultures growing gram postive as per preliminary culture report #Hypernatremia give isotonic fluids for now given sepsis, hypovoleia #Hyperkalemia improved on Nephro tube feeds Vahid Manzano DO
[2016-11-20] MEDS: SODIUM CHLORIDE 0.45%/POT 1,000 ML IV SCH (12:29)
--- NOTE | 2016-11-20 15:19 | PN ---
Progress Note, Physician History of Present Illness: Lethargic Non verbal Low grade temp noted WBC WNL BC SCN - Current Medication List Current Medications: Active Medications Acetaminophen (Tylenol Oral Solution -) 650 mg GT Q6H PRN PRN Reason: FEVER OR PAIN Last Admin: 11/19/16 15:56 Dose: 650 mg Amino Acids (Prosource No Carb Liquid Pkt) 30 ml PEG BID [facility] Last Admin: 11/20/16 10:55 Dose: 30 ml Ascorbic Acid (Vitamin C Oral Solution -) 500 mg GT TID [facility] Last Admin: 11/20/16 13:35 Dose: 500 mg Collagenase (Santyl -) 1 applic TP [id number] [facility] Last Admin: 11/19/16 09:58 Dose: 1 applic Doxazosin Mesylate (Cardura -) 2 mg GT DAILY [facility] Last Admin: 11/20/16 11:28 Dose: 2 mg Escitalopram Oxalate (Lexapro Oral Solution -) 10 mg GT DAILY [facility] Last Admin: 11/20/16 11:28 Dose: 10 mg Fentanyl (Duragesic 12mcg Patch -) 1 patch TD Q72H [facility] Last Admin: 11/18/16 13:00 Dose: 1 patch Ferrous Sulfate (Feosol) 330 mg PEG TID [facility] Last Admin: 11/20/16 13:33 Dose: 330 mg Heparin Sodium (Porcine) (Heparin -) 5,000 unit SQ BID [facility] Last Admin: 11/20/16 10:55 Dose: 5,000 unit Potassium Chloride/Sodium Chloride (1/2ns+20meq Kcl) 1,000 mls @ 50 mls/hr IV ASDIR [facility] Last Admin: 11/20/16 12:29 Dose: 50 mls/hr Insulin Aspart (Novolog Vial Sliding Scale -) 1 vial SQ TIDAC [facility] PRN Reason: Protocol Last Admin: 11/20/16 12:26 Dose: Not Given Insulin Detemir (Levemir Vial) 22 units SQ AM [facility] Last Admin: 11/20/16 06:34 Dose: 22 units Insulin Detemir (Levemir Vial) 15 units SQ HS [facility] Last Admin: 11/19/16 22:28 Dose: Not Given Lactobacillus Acidophilus (Bacid -) 1 tab GT DAILY [facility] Last Admin: 11/20/16 10:55 Dose: 1 tab Miscellaneous (Duragesic Patch Waste) 1 each TD PRN PRN Olanzapine (Zyprexa -) 2.5 mg GT HS [facility] Last Admin: 11/19/16 22:04 Dose: 2.5 mg Potassium Phos/Sodium Phos (Phos-Nak Packet -) 1 packet GT DAILY [facility] Last Admin: 11/20/16 10:56 Dose: 1 packet Ranitidine HCl (Zantac Oral Solution -) 150 mg GT DAILY [facility] Last Admin: 11/20/16 10:55 Dose: 150 mg - Objective Vital Signs: Vital Signs Temperature 97.8 F 11/20/16 10:00 Pulse Rate 82 11/20/16 10:00 Respiratory Rate 18 11/20/16 10:00 Blood Pressure 112/64 11/20/16 10:00 O2 Sat by Pulse Oximetry (%) 99 11/19/16 21:00 Constitutional: Yes: No Distress Cardiovascular: Yes: Regular Rate and Rhythm, Murmur, S1, S2 Respiratory: Yes: CTA Bilaterally Gastrointestinal: Yes: Normal Bowel Sounds, Soft Extremities: Yes: Other (bilat BKA) Integumentary: Yes: Other (Stage IV sacral decubitus) Labs: CBC, BMP 11/20/16 10:00 11/20/16 10:00 INR, PTT INR 1.02 (0.82-1.09) 11/16/16 22:10 Assessment/Plan SCN bacteremia Azotemia Hx CRE Vancomycin level theraputic Repeat level am Contact precautions
[2016-11-20] MEDS: OLANZapine 2.5 MG TABLET GT SCH (21:43)
[2016-11-21] MEDS: BANATROL PLUS POWDER PACKET GT SCH ×3 (05:58→22:11)
[2016-11-21] MEDS: INSULIN DETEMIR 100 UNITS/ML MDV SQ SCH ×2 (05:59→22:49)
[2016-11-21] MEDS: FERROUS SO4 300 MG/5 ML ORAL SOLN UNIT DOSE CUPS PEG SCH ×3 (05:59→22:12)
[2016-11-21] MEDS: INSULIN SLIDING SCALE (NOVOLOG) 1 VIAL SQ SCH ×3 (05:59→17:07)
[2016-11-21] MEDS: ASCORBIC ACID 500 MG/5 ML UNIT DOSE CUP GT SCH ×3 (06:00→22:13)
[2016-11-21 07:37] LABS: MCH 29.9 pg (25.7-33.7); MCHC 32.3 g/dl (32.0-36.0); MEAN CELL VOLUME 92.6 fl (80-96); MEAN PLT VOLUME 9.2 fl (7.5-11.1); PLATELET COUNT 222 K/MM3 (134-434); RDW 20.3 % (11.6-15.6); WHITE BLOOD COUNT 7.3 K/mm3 (4.0-10.0)
[2016-11-21 08:18] LABS: ANION GAP 8 (8-16); CALCIUM 7.7 mg/dL (8.5-10.1); CO2 22 mmol/L (21-32); CREATININE 0.8 mg/dL (0.55-1.02); GLUCOSE,RANDOM 159 mg/dL (74-106); MAGNESIUM 2.2 mg/dL (1.8-2.4)
--- NOTE | 2016-11-21 10:19 | PN ---
Progress Note, Physician Chief Complaint: CHART REVIEWED NO ACUTE EVENTS OVERNIGHT H/H LOWER - Current Medication List Current Medications: Active Medications Acetaminophen (Tylenol Oral Solution -) 650 mg GT Q6H PRN PRN Reason: FEVER OR PAIN Last Admin: 11/19/16 15:56 Dose: 650 mg Amino Acids (Prosource No Carb Liquid Pkt) 30 ml PEG BID [facility] Last Admin: 11/20/16 21:43 Dose: 30 ml Ascorbic Acid (Vitamin C Oral Solution -) 500 mg GT TID [facility] Last Admin: 11/21/16 06:00 Dose: 500 mg Collagenase (Santyl -) 1 applic TP [email or web address] [facility] Last Admin: 11/19/16 09:58 Dose: 1 applic Doxazosin Mesylate (Cardura -) 2 mg GT DAILY [facility] Last Admin: 11/20/16 11:28 Dose: 2 mg Escitalopram Oxalate (Lexapro Oral Solution -) 10 mg GT DAILY [facility] Last Admin: 11/20/16 11:28 Dose: 10 mg Fentanyl (Duragesic 12mcg Patch -) 1 patch TD Q72H [facility] Last Admin: 11/18/16 13:00 Dose: 1 patch Ferrous Sulfate (Feosol) 330 mg PEG TID [facility] Last Admin: 11/21/16 05:59 Dose: 330 mg Heparin Sodium (Porcine) (Heparin -) 5,000 unit SQ BID [facility] Last Admin: 11/20/16 21:43 Dose: 5,000 unit Potassium Chloride/Sodium Chloride (1/2ns+20meq Kcl) 1,000 mls @ 50 mls/hr IV ASDIR [facility] Last Admin: 11/20/16 12:29 Dose: 50 mls/hr Insulin Aspart (Novolog Vial Sliding Scale -) 1 vial SQ TIDAC [facility] PRN Reason: Protocol Last Admin: 11/21/16 05:59 Dose: 2 units Insulin Detemir (Levemir Vial) 22 units SQ AM [facility] Last Admin: 11/21/16 05:59 Dose: 22 units Insulin Detemir (Levemir Vial) 15 units SQ HS [facility] Last Admin: 11/20/16 21:51 Dose: 15 unit Lactobacillus Acidophilus (Bacid -) 1 tab GT DAILY [facility] Last Admin: 11/20/16 10:55 Dose: 1 tab Miscellaneous (Duragesic Patch Waste) 1 each TD PRN PRN Olanzapine (Zyprexa -) 2.5 mg GT HS [facility] Last Admin: 11/20/16 21:43 Dose: 2.5 mg Potassium Phos/Sodium Phos (Phos-Nak Packet -) 1 packet GT DAILY [facility] Last Admin: 11/20/16 10:56 Dose: 1 packet Ranitidine HCl (Zantac Oral Solution -) 150 mg GT DAILY [facility] Last Admin: 11/20/16 10:55 Dose: 150 mg - Objective Vital Signs: Vital Signs Temperature 97.9 F 11/21/16 06:00 Pulse Rate 61 11/21/16 06:00 Respiratory Rate 18 11/21/16 06:00 Blood Pressure 136/62 11/21/16 06:00 O2 Sat by Pulse Oximetry (%) 99 11/19/16 21:00 Constitutional: Yes: No Distress Eyes: Yes: WNL HENT: Yes: WNL Neck: Yes: WNL Cardiovascular: Yes: Murmur Respiratory: Yes: On Nasal O2, Other Gastrointestinal: Yes: Other (GTUBE) Genitourinary: Yes: Incontinence Musculoskeletal: Yes: Muscle Weakness Extremities: Yes: Deformity, Other Edema: No Peripheral Pulses WNL: Yes Integumentary: Yes: Other Wound/Incision: Yes: Draining (WOUND VAC) Neurological: Yes: Pre-Existing Deficit, Unresponsive ...Motor Strength: LLE, RLE (AKA) Psychiatric: Yes: Other Labs: CBC, BMP 11/21/16 06:30 11/21/16 06:30 INR, PTT INR 1.02 (0.82-1.09) 11/16/16 22:10 Problem List - Problems (1) Anemia Code(s): D64.9 - ANEMIA, UNSPECIFIED Qualifiers: Anemia type: iron deficiency Iron deficiency anemia type: unspecified iron deficiency Qualified Code(s): D50.9 - Iron deficiency anemia, unspecified (2) Drug (multiple) resistant infection Code(s): 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 (3) Electrolyte abnormality Code(s): E87.8 - OTH DISORDERS OF ELECTROLYTE AND FLUID BALANCE, NEC (4) Functional quadriplegia Code(s): R53.2 - FUNCTIONAL QUADRIPLEGIA (5) ARF (acute renal failure) Code(s): N17.9 - ACUTE KIDNEY FAILURE, UNSPECIFIED (6) Diabetes Code(s): E11.9 - TYPE 2 DIABETES MELLITUS WITHOUT COMPLICATIONS Qualifiers: Diabetes mellitus type: type 2 Diabetes mellitus complication detail: with other skin ulcer (7) Dysphagia Code(s): R13.10 - DYSPHAGIA, UNSPECIFIED (8) Sacral decubitus ulcer, stage III Code(s): L89.153 - PRESSURE ULCER OF SACRAL REGION, STAGE 3 (9) S/P AKA (above knee amputation) bilateral Code(s): Z89.611 - ACQUIRED ABSENCE OF RIGHT LEG ABOVE KNEE Z89.612 - ACQUIRED ABSENCE OF LEFT LEG ABOVE KNEE Assessment/Plan TRANSFUSE PRBC NOW iv abx per id wound vac draining advanced directoive discussion with family
[2016-11-21] MEDS: LACTOBACILLUS ACIDOPHILUS 1 EACH TAB (FP) GT SCH (10:37)
[2016-11-21] MEDS: HEPARIN NA (PORCINE) 5,000 UNITS/ML 1ML VIAL SQ SCH ×2 (10:37→22:12)
[2016-11-21] MEDS: RANITIDINE HCL 150 MG/10 ML UNIT-DOSE CUP GT SCH (10:37)
[2016-11-21] MEDS: AMINO ACIDS/PROTEIN HYDROLYS 30 ML LIQUID.PKT PEG SCH ×2 (10:37→22:12)
[2016-11-21] MEDS: NAPH,MB-DB/K PH,MBDB POWDER PACKET GT SCH (10:38)
[2016-11-21] MEDS ORDERED: PT OWN MED DRAWER 7, Y5N ONE ×3 (10:41→21:18)
[2016-11-21] MEDS: MULTIVIT-MINERALS 236 ML ML PEG SCH (10:42)
[2016-11-21] MEDS: DOXAZOSIN MESYLATE 2 MG TABLET (FP) GT SCH (10:43)
[2016-11-21] MEDS: ACETAMINOPHEN 650 MG/20.3 ML ORAL SOLUTION (CUPS) GT PRN (11:03)
--- NOTE | 2016-11-21 11:40 | PN ---
Progress Note, Physician History of Present Illness: More awake and alert today No acute distress Temps down Afebrile SCN - Current Medication List Current Medications: Active Medications Acetaminophen (Tylenol Oral Solution -) 650 mg GT Q6H PRN PRN Reason: FEVER OR PAIN Last Admin: 11/21/16 11:03 Dose: 650 mg Amino Acids (Prosource No Carb Liquid Pkt) 30 ml PEG BID [facility] Last Admin: 11/21/16 10:37 Dose: 30 ml Ascorbic Acid (Vitamin C Oral Solution -) 500 mg GT TID [facility] Last Admin: 11/21/16 06:00 Dose: 500 mg Collagenase (Santyl -) 1 applic TP [email or web address]@1000 [facility] Last Admin: 11/19/16 09:58 Dose: 1 applic Doxazosin Mesylate (Cardura -) 2 mg GT DAILY [facility] Last Admin: 11/21/16 10:43 Dose: 2 mg Escitalopram Oxalate (Lexapro Oral Solution -) 10 mg GT DAILY [facility] Last Admin: 11/20/16 11:28 Dose: 10 mg Fentanyl (Duragesic 12mcg Patch -) 1 patch TD Q72H [facility] Last Admin: 11/18/16 13:00 Dose: 1 patch Ferrous Sulfate (Feosol) 330 mg PEG TID [facility] Last Admin: 11/21/16 05:59 Dose: 330 mg Heparin Sodium (Porcine) (Heparin -) 5,000 unit SQ BID [facility] Last Admin: 11/21/16 10:37 Dose: 5,000 unit Potassium Chloride/Sodium Chloride (1/2ns+20meq Kcl) 1,000 mls @ 50 mls/hr IV ASDIR [facility] Last Admin: 11/20/16 12:29 Dose: 50 mls/hr Insulin Aspart (Novolog Vial Sliding Scale -) 1 vial SQ TIDAC [facility] PRN Reason: Protocol Last Admin: 11/21/16 11:36 Dose: 2 units Insulin Detemir (Levemir Vial) 22 units SQ AM [facility] Last Admin: 11/21/16 05:59 Dose: 22 units Insulin Detemir (Levemir Vial) 15 units SQ HS [facility] Last Admin: 11/20/16 21:51 Dose: 15 unit Lactobacillus Acidophilus (Bacid -) 1 tab GT DAILY [facility] Last Admin: 11/21/16 10:37 Dose: 1 tab Miscellaneous (Duragesic Patch Waste) 1 each TD PRN PRN Olanzapine (Zyprexa -) 2.5 mg GT HS [facility] Last Admin: 11/20/16 21:43 Dose: 2.5 mg Potassium Phos/Sodium Phos (Phos-Nak Packet -) 1 packet GT DAILY [facility] Last Admin: 11/21/16 10:38 Dose: 1 packet Ranitidine HCl (Zantac Oral Solution -) 150 mg GT DAILY [facility] Last Admin: 11/21/16 10:37 Dose: 150 mg - Objective Vital Signs: Vital Signs Temperature 97.9 F 11/21/16 06:00 Pulse Rate 61 11/21/16 06:00 Respiratory Rate 18 11/21/16 06:00 Blood Pressure 136/62 11/21/16 06:00 O2 Sat by Pulse Oximetry (%) 99 11/19/16 21:00 Constitutional: Yes: Pallor Eyes: Yes: Conjunctiva Clear Cardiovascular: Yes: Regular Rate and Rhythm, S1, S2 Respiratory: Yes: Diminished Gastrointestinal: Yes: Normal Bowel Sounds, Soft. No: Tenderness Extremities: No: Other (P Bilateral BKA) Integumentary: Yes: Other (+ Stage IV sacral decubitus) Labs: CBC, BMP 11/21/16 06:30 11/21/16 06:30 INR, PTT INR 1.02 (0.82-1.09) 11/16/16 22:10 Assessment/Plan SCN bacteremia Azotemia Hx CRE + Urine c/s VRE, yeast Vancomycin level noted. Redose vancomycin Contact precautions
[2016-11-21] MEDS ORDERED: VANCOMYCIN 1 GRAM (PRE-DOCKED) 250 ML IVPB SCH (12:00)
[2016-11-21] MEDS: SODIUM CHLORIDE 0.45%/POT 1,000 ML IV SCH (12:23)
[2016-11-21] MEDS: fentaNYL 12mcg/hr PATCH.TD72 TD SCH (12:31)
[2016-11-21] MEDS: ESCITALOPRAM OXALATE 5 MG/5 ML GT SCH (13:22)
[2016-11-21] MEDS: OLANZapine 2.5 MG TABLET GT SCH (22:13)
[2016-11-22] MEDS: ACETAMINOPHEN 650 MG/20.3 ML ORAL SOLUTION (CUPS) GT PRN (02:35)
[2016-11-22] MEDS ORDERED: PT OWN MED DRAWER 7, Y5N ONE ×3 (05:54→22:41)
[2016-11-22] MEDS: BANATROL PLUS POWDER PACKET GT SCH ×3 (06:31→22:42)
[2016-11-22] MEDS: ASCORBIC ACID 500 MG/5 ML UNIT DOSE CUP GT SCH ×3 (06:32→22:43)
[2016-11-22] MEDS: INSULIN DETEMIR 100 UNITS/ML MDV SQ SCH ×2 (06:32→22:42)
[2016-11-22] MEDS: FERROUS SO4 300 MG/5 ML ORAL SOLN UNIT DOSE CUPS PEG SCH ×3 (06:32→22:42)
[2016-11-22] MEDS: INSULIN SLIDING SCALE (NOVOLOG) 1 VIAL SQ SCH ×3 (06:33→17:39)
[2016-11-22 07:27] LABS: MCH 30.1 pg (25.7-33.7); MCHC 33.3 g/dl (32.0-36.0); MEAN CELL VOLUME 90.4 fl (80-96); MEAN PLT VOLUME 9.1 fl (7.5-11.1); PLATELET COUNT 247 K/MM3 (134-434); RDW 19.7 % (11.6-15.6); WHITE BLOOD COUNT 8.2 K/mm3 (4.0-10.0)
[2016-11-22 07:53] LABS: ANION GAP 6 (8-16); CO2 25 mmol/L (21-32); CREATININE 0.7 mg/dL (0.55-1.02); GLUCOSE,RANDOM 99 mg/dL (74-106); MAGNESIUM 2.1 mg/dL (1.8-2.4); PHOSPHOROUS 2.7 mg/dL (2.5-4.9)
--- NOTE | 2016-11-22 08:34 | PN ---
Progress Note, Physician History of Present Illness: More awake and responsive today Afebrile vancomycin trough noted - Current Medication List Current Medications: Active Medications Acetaminophen (Tylenol Oral Solution -) 650 mg GT Q6H PRN PRN Reason: FEVER OR PAIN Last Admin: 11/22/16 02:35 Dose: 650 mg Amino Acids (Prosource No Carb Liquid Pkt) 30 ml PEG BID [facility] Last Admin: 11/21/16 22:12 Dose: 30 ml Ascorbic Acid (Vitamin C Oral Solution -) 500 mg GT TID [facility] Last Admin: 11/22/16 06:32 Dose: 500 mg Collagenase (Santyl -) 1 applic TP [email or web address] [facility] Last Admin: 11/19/16 09:58 Dose: 1 applic Doxazosin Mesylate (Cardura -) 2 mg GT DAILY [facility] Last Admin: 11/21/16 10:43 Dose: 2 mg Escitalopram Oxalate (Lexapro Oral Solution -) 10 mg GT DAILY [facility] Last Admin: 11/21/16 13:22 Dose: 10 mg Fentanyl (Duragesic 12mcg Patch -) 1 patch TD Q72H [facility] Last Admin: 11/21/16 12:31 Dose: 1 patch Ferrous Sulfate (Feosol) 330 mg PEG TID [facility] Last Admin: 11/22/16 06:32 Dose: 330 mg Heparin Sodium (Porcine) (Heparin -) 5,000 unit SQ BID [facility] Last Admin: 11/21/16 22:12 Dose: 5,000 unit Potassium Chloride/Sodium Chloride (1/2ns+20meq Kcl) 1,000 mls @ 50 mls/hr IV ASDIR [facility] Last Admin: 11/21/16 12:23 Dose: Not Given Vancomycin HCl (Vancomycin (Pre-Docked)) 250 mls @ 200 mls/hr IVPB ONCE [facility] Stop: 11/22/16 11:59 Last Admin: 11/21/16 12:31 Dose: 200 mls/hr Insulin Aspart (Novolog Vial Sliding Scale -) 1 vial SQ TIDAC [facility] PRN Reason: Protocol Last Admin: 11/22/16 06:33 Dose: Not Given Insulin Detemir (Levemir Vial) 22 units SQ AM [facility] Last Admin: 11/22/16 06:32 Dose: 22 units Insulin Detemir (Levemir Vial) 15 units SQ HS [facility] Last Admin: 11/21/16 22:49 Dose: 15 unit Lactobacillus Acidophilus (Bacid -) 1 tab GT DAILY [facility] Last Admin: 11/21/16 10:37 Dose: 1 tab Miscellaneous (Duragesic Patch Waste) 1 each TD PRN PRN Olanzapine (Zyprexa -) 2.5 mg GT HS [facility] Last Admin: 11/21/16 22:13 Dose: 2.5 mg Potassium Phos/Sodium Phos (Phos-Nak Packet -) 1 packet GT DAILY [facility] Last Admin: 11/21/16 10:38 Dose: 1 packet Ranitidine HCl (Zantac Oral Solution -) 150 mg GT DAILY [facility] Last Admin: 11/21/16 10:37 Dose: 150 mg - Objective Vital Signs: Vital Signs Temperature 97.5 F L 11/22/16 05:29 Pulse Rate 64 11/22/16 05:29 Respiratory Rate 20 11/22/16 05:29 Blood Pressure 100/54 11/22/16 05:29 O2 Sat by Pulse Oximetry (%) 97 11/21/16 20:52 Constitutional: Yes: No Distress, Pallor Eyes: Yes: Conjunctiva Clear Cardiovascular: Yes: Regular Rate and Rhythm, Murmur, S1, S2 Respiratory: Yes: CTA Bilaterally Gastrointestinal: Yes: Normal Bowel Sounds, Soft. No: Tenderness Extremities: Yes: Other (Bilateral BKA) Integumentary: Yes: Other (Stage IV decubitus) Labs: CBC, BMP 11/22/16 06:30 11/22/16 06:30 INR, PTT INR 1.02 (0.82-1.09) 11/16/16 22:10 Assessment/Plan SCN bacteremia Azotemia Hx CRE + Urine c/s VRE, yeast Vancomycin level theraputic Repeat Vanco trough am Contact precautions
[2016-11-22 09:02] LABS: TOTAL CELLS COUNTED 100
--- NOTE | 2016-11-22 10:13 | PN ---
Progress Note, Physician Chief Complaint: Sepsis,UTI History of Present Illness: Came in for sepsis and ARF secondary to UTI, NAD, in bed, opens eyes to name. Afebrile past 24 hours -on IV vanco -renal fxn improved, on 1/2 NS+20 meq KCL - Current Medication List Current Medications: Active Medications Acetaminophen (Tylenol Oral Solution -) 650 mg GT Q6H PRN PRN Reason: FEVER OR PAIN Last Admin: 11/22/16 02:35 Dose: 650 mg Amino Acids (Prosource No Carb Liquid Pkt) 30 ml PEG BID [facility] Last Admin: 11/21/16 22:12 Dose: 30 ml Ascorbic Acid (Vitamin C Oral Solution -) 500 mg GT TID [facility] Last Admin: 11/22/16 06:32 Dose: 500 mg Collagenase (Santyl -) 1 applic TP [email or web address] [facility] Last Admin: 11/19/16 09:58 Dose: 1 applic Doxazosin Mesylate (Cardura -) 2 mg GT DAILY [facility] Last Admin: 11/21/16 10:43 Dose: 2 mg Escitalopram Oxalate (Lexapro Oral Solution -) 10 mg GT DAILY [facility] Last Admin: 11/21/16 13:22 Dose: 10 mg Fentanyl (Duragesic 12mcg Patch -) 1 patch TD Q72H [facility] Last Admin: 11/21/16 12:31 Dose: 1 patch Ferrous Sulfate (Feosol) 330 mg PEG TID [facility] Last Admin: 11/22/16 06:32 Dose: 330 mg Heparin Sodium (Porcine) (Heparin -) 5,000 unit SQ BID [facility] Last Admin: 11/21/16 22:12 Dose: 5,000 unit Potassium Chloride/Sodium Chloride (1/2ns+20meq Kcl) 1,000 mls @ 50 mls/hr IV ASDIR [facility] Last Admin: 11/21/16 12:23 Dose: Not Given Vancomycin HCl (Vancomycin (Pre-Docked)) 250 mls @ 200 mls/hr IVPB ONCE [facility] Stop: 11/22/16 11:59 Last Admin: 11/21/16 12:31 Dose: 200 mls/hr Insulin Aspart (Novolog Vial Sliding Scale -) 1 vial SQ TIDAC [facility] PRN Reason: Protocol Last Admin: 11/22/16 06:33 Dose: Not Given Insulin Detemir (Levemir Vial) 22 units SQ AM [facility] Last Admin: 11/22/16 06:32 Dose: 22 units Insulin Detemir (Levemir Vial) 15 units SQ HS [facility] Last Admin: 11/21/16 22:49 Dose: 15 unit Lactobacillus Acidophilus (Bacid -) 1 tab GT DAILY [facility] Last Admin: 11/21/16 10:37 Dose: 1 tab Miscellaneous (Duragesic Patch Waste) 1 each TD PRN PRN Olanzapine (Zyprexa -) 2.5 mg GT HS [facility] Last Admin: 11/21/16 22:13 Dose: 2.5 mg Potassium Phos/Sodium Phos (Phos-Nak Packet -) 1 packet GT DAILY [facility] Last Admin: 11/21/16 10:38 Dose: 1 packet Ranitidine HCl (Zantac Oral Solution -) 150 mg GT DAILY [facility] Last Admin: 11/21/16 10:37 Dose: 150 mg - Objective Vital Signs: Vital Signs Temperature 97.5 F L 11/22/16 05:29 Pulse Rate 64 11/22/16 05:29 Respiratory Rate 20 11/22/16 05:29 Blood Pressure 100/54 11/22/16 05:29 O2 Sat by Pulse Oximetry (%) 97 11/21/16 20:52 Constitutional: Yes: Well Nourished, No Distress, Calm Cardiovascular: Yes: Regular Rate and Rhythm Respiratory: Yes: Regular Extremities: Yes: Amputation (BLLE) Edema: No Neurological: Yes: Alert (responds to name) Labs: CBC, BMP 11/22/16 06:30 11/22/16 06:30 INR, PTT INR 1.02 (0.82-1.09) 11/16/16 22:10 Problem List - Problems (1) Drug (multiple) resistant infection Assessment/Plan: -hx of CRE/MRSA/ESBl UC/BC: Microbiology Microbiology 11/16/16 23:00 Urine Culture - Preliminary Urine - Urine - Catheterized Group D Strep Or Entero Coccus Yeast Like Organism 11/16/16 22:10 Blood Culture - Preliminary Blood - Peripheral Venous Pending Organism 11/16/16 22:10 Blood Culture - Preliminary Blood - Peripheral Venous NO GROWTH OBTAINED AFTER 48 HOURS, INCUBATION TO CONTINUE FOR 3 DAYS. 11/17/16 16:00 Clostridium difficile Antigen (JAKY) - Final Stool Clostridium difficile Toxin Assay - Final -received vancomycin yesterday, random vanco 21.8 -ID on board -IV abx as per ID Code(s): 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 (2) Fever Assessment/Plan: -ID consult -repeat labs in AM -on IV abx -has a decubitus ulcer, to be seen by Vascular Sx, continue to use santyl and wound vac. Code(s): R50.9 - FEVER, UNSPECIFIED (3) Dehydration Assessment/Plan: -IVF-BUN/Cr much improved -monitor labs for BUN/Cr trending down Code(s): E86.0 - DEHYDRATION (4) Functional quadriplegia Code(s): R53.2 - FUNCTIONAL QUADRIPLEGIA (5) Decubitus ulcer Assessment/Plan: -wound vac -santyl -to be seen by Vascular Code(s): L89.90 - PRESSURE ULCER OF UNSPECIFIED SITE, UNSPECIFIED STAGE Qualifiers: Pressure ulcer location: buttock Assessment/Plan see problem list
[2016-11-22] MEDS: AMINO ACIDS/PROTEIN HYDROLYS 30 ML LIQUID.PKT PEG SCH ×2 (11:02→22:43)
[2016-11-22] MEDS: RANITIDINE HCL 150 MG/10 ML UNIT-DOSE CUP GT SCH (11:02)
[2016-11-22] MEDS: LACTOBACILLUS ACIDOPHILUS 1 EACH TAB (FP) GT SCH (11:02)
[2016-11-22] MEDS: HEPARIN NA (PORCINE) 5,000 UNITS/ML 1ML VIAL SQ SCH ×2 (11:02→22:42)
[2016-11-22] MEDS: NAPH,MB-DB/K PH,MBDB POWDER PACKET GT SCH (11:03)
[2016-11-22] MEDS: ESCITALOPRAM OXALATE 5 MG/5 ML GT SCH (11:08)
[2016-11-22] MEDS: DOXAZOSIN MESYLATE 2 MG TABLET (FP) GT SCH (11:08)
[2016-11-22] MEDS: MULTIVIT-MINERALS 236 ML ML PEG SCH (11:12)
[2016-11-22] MEDS: SODIUM CHLORIDE 0.45%/POT 1,000 ML IV SCH (13:55)
[2016-11-22] MEDS: COLLAGENASE CLOSTRIDIUM HIST. 30 GRAMS TUBE TP SCH (14:00)
--- NOTE | 2016-11-22 18:08 | PN ---
Progress Note (short form) - Note Progress Note: Renal follow for GIANNI Pt seen and examined at the bedside no overnight events Vital Signs Temperature 98.7 F 11/22/16 17:17 Pulse Rate 79 11/22/16 17:17 Respiratory Rate 20 11/22/16 17:17 Blood Pressure 122/58 11/22/16 17:17 O2 Sat by Pulse Oximetry (%) 97 11/21/16 20:52 Intake & Output 11/19/16 11/20/16 11/21/16 11/22/16 23:59 23:59 23:59 23:59 Intake Total 4790 3135 2756 1280 Output Total 1999 2950 2600 1000 Balance 2790 185 156 280 Weight 104 lb 6 oz 110 lb 9.6 oz 110 lb 1.6 oz Gen: NAD, awake and alert CVS: RRR Lungs :CTA Abd: soft NT, G-tube in place Ext: b/L BKA, no edema CBC, BMP 11/22/16 06:30 11/22/16 06:30 Current Medications Acetaminophen (Tylenol Oral Solution -) 650 mg GT Q6H PRN PRN Reason: FEVER OR PAIN Last Admin: 11/22/16 02:35 Dose: 650 mg Amino Acids (Prosource No Carb Liquid Pkt) 30 ml PEG BID [facility] Last Admin: 11/22/16 11:02 Dose: 30 ml Ascorbic Acid (Vitamin C Oral Solution -) 500 mg GT TID [facility] Last Admin: 11/22/16 13:57 Dose: 500 mg Collagenase (Santyl -) 1 applic TP [email or web address]@1000 [facility] Last Admin: 11/22/16 14:00 Dose: 1 applic Doxazosin Mesylate (Cardura -) 2 mg GT DAILY [facility] Last Admin: 11/22/16 11:08 Dose: 2 mg Escitalopram Oxalate (Lexapro Oral Solution -) 10 mg GT DAILY [facility] Last Admin: 11/22/16 11:08 Dose: 10 mg Fentanyl (Duragesic 12mcg Patch -) 1 patch TD Q72H [facility] Last Admin: 11/21/16 12:31 Dose: 1 patch Ferrous Sulfate (Feosol) 330 mg PEG TID [facility] Last Admin: 11/22/16 14:39 Dose: 330 mg Heparin Sodium (Porcine) (Heparin -) 5,000 unit SQ BID [facility] Last Admin: 11/22/16 11:02 Dose: 5,000 unit Insulin Aspart (Novolog Vial Sliding Scale -) 1 vial SQ TIDAC [facility] PRN Reason: Protocol Last Admin: 11/22/16 17:39 Dose: 2 units Insulin Detemir (Levemir Vial) 22 units SQ AM [facility] Last Admin: 11/22/16 06:32 Dose: 22 units Insulin Detemir (Levemir Vial) 15 units SQ HS [facility] Last Admin: 11/21/16 22:49 Dose: 15 unit Lactobacillus Acidophilus (Bacid -) 1 tab GT DAILY [facility] Last Admin: 11/22/16 11:02 Dose: 1 tab Miscellaneous (Duragesic Patch Waste) 1 each TD PRN PRN Olanzapine (Zyprexa -) 2.5 mg GT HS [facility] Last Admin: 11/21/16 22:13 Dose: 2.5 mg Potassium Phos/Sodium Phos (Phos-Nak Packet -) 1 packet GT DAILY [facility] Last Admin: 11/22/16 11:03 Dose: 1 packet Ranitidine HCl (Zantac Oral Solution -) 150 mg GT DAILY [facility] Last Admin: 11/22/16 11:02 Dose: 150 mg A/P 81 year old woman well known to our service with PMhx of GIANNI's, Hypernatremia/ dehydration, UTI's, Hypertension, DM, PVD s/p amputations (B/L) who presented from [place] with Fever and found to have Sepsis secondary to suspected UTI with BUN/ Cr of 130/2.2. #Acute Renal Failure in setting of Sepsis renal function improved volume status also improved s/p IVF d/c IVF today, continue tube feeds and free water #Sepsis/UTI abx as per ID #Hyperkalemia improved on Nephro tube feeds Vahid Manzano DO
--- NOTE | 2016-11-22 19:35 | CONSULT ---
Consult - Past Medical History [employer]: Yes: CVA, Dementia Cardio/Vascular: Yes: Aortic Stenosis, CHF, HTN, Hyperlipdemia Pulmonary: Yes: COPD Gastrointestinal: Yes: GERD Renal/: Yes: Renal Inusuff Endocrine: Yes: Diabetes Mellitus Dermatology: Yes: Other (PU) - Alcohol/Substance Use Hx Alcohol Use: No - Smoking History Smoking history: Never smoked Have you smoked in the past 12 months: No Aproximately how many cigarettes per day: 0 - Social History Usual Living Arrangement: [facility] History of Recent Travel: No Home Medications - Allergies Allergies/Adverse Reactions: Allergies Allergy/AdvReac Type Severity Reaction Status Date / Time No Known Drug Allergies Allergy Verified 11/16/16 21:48 - Home Medications Home Medications: Ambulatory Orders Aa/[place] Ivone,[place]/Arg/C/Zn/Cu [Lps Critical Care Liquid] 30 ml GT BID 09/28/16 Acetaminophen Oral Solution [Tylenol 160mg/5mL Oral Solution -] 640 mg GT Q6H PRN 09/28/16 Ascorbic Acid [Vitamin C] 500 mg GT TID 09/28/16 Escitalopram Oxalate [Lexapro 5mg/5mL Oral Solution -] 10 mg GT DAILY 09/28/16 Famotidine 20 mg GT DAILY 09/28/16 Ferrous Sulfate *Liquid* [Feosol *Liquid*] 330 mg GT TID 09/28/16 Vitamin B Comp W-C [Nephro-Rafael -] 1 tablet GT DAILY 09/28/16 Insulin Sliding Scale [Novolog Vial Sliding Scale -] 1 vial SQ ACHS units 10/08 Heparin - 5,000 units SQ BID 10/28/16 Doxazosin Mesylate [Cardura -] 2 mg GT DAILY tablet 11/08/16 FENTANYL 12mcg PATCH [DURAGESIC 12mcg PATCH -] 1 patch TD Q72H 7 Days MDD 1 Fentanyl Patch Waste [Duragesic Patch Waste] 1 each TD PRN PRN #0 each 11/08/16 Insulin (Levemir) [Levemir Vial] 15 units SQ HS ml 11/08/16 Insulin (Levemir) [Levemir Vial] 22 units SQ AM ml 11/08/16 Lactobacillus Acidophilus [Bacid -] 1 tab GT DAILY tab 11/08/16 Amino Acids/Protein Hydrolys [Prosource No Carb Liquid Pkt] 30 ml GT BID@0800, 1730 11/17/16 Collagenase Clostridium Hist. [Santyl -] 1 applic TP .TIW 11/17/16 FENTANYL 12mcg PATCH [DURAGESIC 12mcg PATCH -] 12 mcg TD Q72H 11/17/16 Naph,Mb-Db/K pH,Mbdb [PHOS-NaK PACKET -] 1 packet GT DAILY 11/17/16 Olanzapine 2.5 mg GT HS 11/17/16 Ranitidine Oral Solution [Zantac Oral Solution -] 150 mg GT ACBK 11/17/16 Physical Exam Vital Signs: Vital Signs Temperature 98.7 F 11/22/16 17:17 Pulse Rate 79 11/22/16 17:17 Respiratory Rate 20 11/22/16 17:17 Blood Pressure 122/58 11/22/16 17:17 O2 Sat by Pulse Oximetry (%) 97 11/22/16 09:00 Labs: CBC, BMP 11/22/16 06:30 11/22/16 06:30 Assessment/Plan Vascular Surgery The patient is a 81 year old female with significant past medical history of dementia, acute kidney failure, hyperglycemia, diabetes, hypertension, COPD, MRSA, C. difficile, pressure ulcer, recent sepsis, bilateral BKA, G-tube, anemia who presents to the ED BIBA from [facility] facility for fever and abnormal labs. Neither family member, at bedside, nor it is documented what the abnormal lab value is. Patient is nonverbal, as per family member and does not follow commands. She is currently afebrile. As per previous records, patient was admitted here on 10/29, where she was transfused due to anemia and discharged on 11/07. She also has recent admissions for sepsis, UTI and pneumonia. Allergies: NKDA Social History: No alcohol, tobacco, or drug use reported. Past Surgical History: g-tube placement PCP: Dr. Rashawn Garcia PE head - NC/AT Lung - CTA heart - RRR abd - soft,nt,nd ext - warm, pink Sacrum - -vac changed. Stage 4 ulcer clean, pink, good granulation. A/P Stage 4 sacral ulcer 1. cont vac dressing 2. Spoke to daughter about the plan. she was present bedside Felipe Rivers DO
[2016-11-22] MEDS: OLANZapine 2.5 MG TABLET GT SCH (22:43)
[2016-11-23] MEDS ORDERED: PT OWN MED DRAWER 7, Y5N ONE ×3 (06:12→22:51)
[2016-11-23] MEDS: BANATROL PLUS POWDER PACKET GT SCH ×3 (06:23→22:28)
[2016-11-23] MEDS: ASCORBIC ACID 500 MG/5 ML UNIT DOSE CUP GT SCH ×3 (06:23→22:29)
[2016-11-23] MEDS: INSULIN DETEMIR 100 UNITS/ML MDV SQ SCH ×2 (06:23→22:28)
[2016-11-23] MEDS: FERROUS SO4 300 MG/5 ML ORAL SOLN UNIT DOSE CUPS PEG SCH ×3 (06:23→22:27)
[2016-11-23] MEDS: INSULIN SLIDING SCALE (NOVOLOG) 1 VIAL SQ SCH ×3 (06:24→17:53)
[2016-11-23 07:23] LABS: BASOPHIL 0.2 % (0-2.0); EOSINOPHIL 2.1 % (0-4.5); MCH 29.5 pg (25.7-33.7); MCHC 32.6 g/dl (32.0-36.0); MEAN CELL VOLUME 90.4 fl (80-96); MEAN PLT VOLUME 8.9 fl (7.5-11.1); NEUTROPHILS 62.5 % (42.8-82.8); PLATELET COUNT 297 K/MM3 (134-434); RDW 19.4 % (11.6-15.6); WHITE BLOOD COUNT 8.2 K/mm3 (4.0-10.0)
[2016-11-23 08:14] LABS: ALBUMIN 1.5 g/dl (3.4-5.0); ALK PHOS 102 U/L (45-117); ANION GAP 8 (8-16); BILIRUBIN,TOTAL 0.3 mg/dL (0.2-1.0); CALCIUM 8.2 mg/dL (8.5-10.1); CO2 22 mmol/L (21-32); CREATININE 0.7 mg/dL (0.55-1.02); GLUCOSE,RANDOM 201 mg/dL (74-106); MAGNESIUM 1.9 mg/dL (1.8-2.4); SGOT/AST 12 U/L (15-37); SGPT/ALT 13 U/L (12-78); TOT PROT 6.3 g/dl (6.4-8.2)
--- NOTE | 2016-11-23 10:47 | PN ---
Progress Note, Physician Chief Complaint: Sepsis,UTI, dehydration, ARF History of Present Illness: Came in for sepsis and ARF secondary to UTI, NAD, in bed, opens eyes to name. Afebrile past 24 hours -IVF discontinued -renal fxn improved - Current Medication List Current Medications: Active Medications Acetaminophen (Tylenol Oral Solution -) 650 mg GT Q6H PRN PRN Reason: FEVER OR PAIN Last Admin: 11/22/16 02:35 Dose: 650 mg Amino Acids (Prosource No Carb Liquid Pkt) 30 ml PEG BID [facility] Last Admin: 11/22/16 22:43 Dose: 30 ml Ascorbic Acid (Vitamin C Oral Solution -) 500 mg GT TID [facility] Last Admin: 11/23/16 06:23 Dose: 500 mg Collagenase (Santyl -) 1 applic TP MoWeFr@1000 [facility] Last Admin: 11/22/16 14:00 Dose: 1 applic Doxazosin Mesylate (Cardura -) 2 mg GT DAILY [facility] Last Admin: 11/22/16 11:08 Dose: 2 mg Escitalopram Oxalate (Lexapro Oral Solution -) 10 mg GT DAILY [facility] Last Admin: 11/22/16 11:08 Dose: 10 mg Fentanyl (Duragesic 12mcg Patch -) 1 patch TD Q72H [facility] Last Admin: 11/21/16 12:31 Dose: 1 patch Ferrous Sulfate (Feosol) 330 mg PEG TID [facility] Last Admin: 11/23/16 06:23 Dose: 330 mg Heparin Sodium (Porcine) (Heparin -) 5,000 unit SQ BID [facility] Last Admin: 11/22/16 22:42 Dose: 5,000 unit Insulin Aspart (Novolog Vial Sliding Scale -) 1 vial SQ TIDAC [facility] PRN Reason: Protocol Last Admin: 11/23/16 06:24 Dose: 2 units Insulin Detemir (Levemir Vial) 22 units SQ AM [facility] Last Admin: 11/23/16 06:23 Dose: 22 units Insulin Detemir (Levemir Vial) 15 units SQ HS [facility] Last Admin: 11/22/16 22:42 Dose: 15 unit Lactobacillus Acidophilus (Bacid -) 1 tab GT DAILY [facility] Last Admin: 11/22/16 11:02 Dose: 1 tab Miscellaneous (Duragesic Patch Waste) 1 each TD PRN PRN Olanzapine (Zyprexa -) 2.5 mg GT HS [facility] Last Admin: 11/22/16 22:43 Dose: 2.5 mg Potassium Phos/Sodium Phos (Phos-Nak Packet -) 1 packet GT DAILY [facility] Last Admin: 11/22/16 11:03 Dose: 1 packet Ranitidine HCl (Zantac Oral Solution -) 150 mg GT DAILY [facility] Last Admin: 11/22/16 11:02 Dose: 150 mg - Objective Vital Signs: Vital Signs Temperature 98.7 F 11/23/16 06:17 Pulse Rate 88 11/23/16 06:17 Respiratory Rate 20 11/23/16 06:17 Blood Pressure 145/77 11/23/16 06:17 O2 Sat by Pulse Oximetry (%) 97 11/22/16 21:00 Constitutional: Yes: Well Nourished, No Distress, Calm Cardiovascular: Yes: Regular Rate and Rhythm Respiratory: Yes: Regular Gastrointestinal: Yes: Normal Bowel Sounds Extremities: Yes: Amputation (BLLE) Edema: No Labs: CBC, BMP 11/23/16 06:00 11/23/16 06:00 INR, PTT INR 1.02 (0.82-1.09) 11/16/16 22:10 Problem List - Problems (1) Drug (multiple) resistant infection Assessment/Plan: -hx of CRE/MRSA/ESBl UC/BC: Microbiology Microbiology 11/16/16 23:00 Urine Culture - Preliminary Urine - Urine - Catheterized Group D Strep Or Entero Coccus Yeast Like Organism 11/16/16 22:10 Blood Culture - Preliminary Blood - Peripheral Venous Pending Organism 11/16/16 22:10 Blood Culture - Preliminary Blood - Peripheral Venous NO GROWTH OBTAINED AFTER 48 HOURS, INCUBATION TO CONTINUE FOR 3 DAYS. 11/17/16 16:00 Clostridium difficile Antigen (JAKY) - Final Stool Clostridium difficile Toxin Assay - Final -received vancomycin 11/21/16, random vanco 16.7 -ID on board -abx as per ID Code(s): 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 (2) Fever Assessment/Plan: -ID consult -has a decubitus ulcer, seen by Vascular Sx, continue to use santyl and wound vac. -afebrile Code(s): R50.9 - FEVER, UNSPECIFIED (3) Dehydration Assessment/Plan: -IVF discontinued-BUN/Cr much improved -monitor labs for BUN/Cr trending down Code(s): E86.0 - DEHYDRATION (4) Functional quadriplegia Code(s): R53.2 - FUNCTIONAL QUADRIPLEGIA (5) Decubitus ulcer Assessment/Plan: -wound vac -santyl -seen by Vascular Code(s): L89.90 - PRESSURE ULCER OF UNSPECIFIED SITE, UNSPECIFIED STAGE Qualifiers: Pressure ulcer location: buttock (6) Anemia Assessment/Plan: -received 1 unit of PRBC this admission -cancel 2nd unit -monitor H/H -Stool OB negative -mild Iron deficiency last admission -Venofer 300 mg x 1 Code(s): D64.9 - ANEMIA, UNSPECIFIED Qualifiers: Anemia type: iron deficiency Iron deficiency anemia type: unspecified iron deficiency Qualified Code(s): D50.9 - Iron deficiency anemia, unspecified Assessment/Plan see problem list
[2016-11-23] MEDS: LACTOBACILLUS ACIDOPHILUS 1 EACH TAB (FP) GT SCH (10:59)
[2016-11-23] MEDS: HEPARIN NA (PORCINE) 5,000 UNITS/ML 1ML VIAL SQ SCH ×2 (10:59→22:28)
[2016-11-23] MEDS: AMINO ACIDS/PROTEIN HYDROLYS 30 ML LIQUID.PKT PEG SCH ×2 (10:59→22:27)
[2016-11-23] MEDS: RANITIDINE HCL 150 MG/10 ML UNIT-DOSE CUP GT SCH (10:59)
[2016-11-23] MEDS: ESCITALOPRAM OXALATE 5 MG/5 ML GT SCH (11:00)
[2016-11-23] MEDS: NAPH,MB-DB/K PH,MBDB POWDER PACKET GT SCH (11:00)
[2016-11-23] MEDS: DOXAZOSIN MESYLATE 2 MG TABLET (FP) GT SCH (11:01)
[2016-11-23] MEDS: MULTIVIT-MINERALS 236 ML ML PEG SCH (11:01)
[2016-11-23] MEDS ORDERED: IRON SUCROSE INJECTION 300 MG in SODIUM CHLORIDE 235 ML IVPB ONE (12:00)
--- NOTE | 2016-11-23 13:06 | PN ---
Progress Note (short form) - Note Progress Note: Renal follow for GIANNI Pt seen and examined at the bedside awake, non-verbal no overnight events Vital Signs Temperature 98.6 F 11/23/16 10:00 Pulse Rate 82 11/23/16 10:00 Respiratory Rate 16 11/23/16 10:00 Blood Pressure 122/64 11/23/16 10:00 O2 Sat by Pulse Oximetry (%) 97 11/23/16 09:00 Intake & Output 11/20/16 11/21/16 11/22/16 11/23/16 23:59 23:59 23:59 23:59 Intake Total 3135 2756 1880 1306 Output Total 2950 2600 1500 400 Balance 185 156 380 906 Weight 110 lb 9.6 oz 110 lb 1.6 oz 107 lb 4.8 oz Gen: NAD, awake and alert CVS: RRR Lungs :CTA Abd: soft NT, G-tube in place Ext: b/L BKA, no edema CBC, BMP 11/23/16 06:00 11/23/16 06:00 Laboratory Tests 11/23/16 06:00 Calcium 8.2 L Albumin 1.5 L Current Medications Acetaminophen (Tylenol Oral Solution -) 650 mg GT Q6H PRN PRN Reason: FEVER OR PAIN Last Admin: 11/22/16 02:35 Dose: 650 mg Amino Acids (Prosource No Carb Liquid Pkt) 30 ml PEG BID [facility] Last Admin: 11/23/16 10:59 Dose: 30 ml Ascorbic Acid (Vitamin C Oral Solution -) 500 mg GT TID [facility] Last Admin: 11/23/16 06:23 Dose: 500 mg Collagenase (Santyl -) 1 applic TP MoWeFr@1000 [facility] Last Admin: 11/22/16 14:00 Dose: 1 applic Doxazosin Mesylate (Cardura -) 2 mg GT DAILY [facility] Last Admin: 11/23/16 11:01 Dose: 2 mg Escitalopram Oxalate (Lexapro Oral Solution -) 10 mg GT DAILY [facility] Last Admin: 11/23/16 11:00 Dose: 10 mg Fentanyl (Duragesic 12mcg Patch -) 1 patch TD Q72H [facility] Last Admin: 11/21/16 12:31 Dose: 1 patch Ferrous Sulfate (Feosol) 330 mg PEG TID [facility] Last Admin: 11/23/16 06:23 Dose: 330 mg Heparin Sodium (Porcine) (Heparin -) 5,000 unit SQ BID [facility] Last Admin: 11/23/16 10:59 Dose: 5,000 unit Iron Sucrose 300 mg/ Sodium (Chloride) 250 mls @ 166.667 mls/hr IVPB ONCE ONE Stop: 11/23/16 13:29 Insulin Aspart (Novolog Vial Sliding Scale -) 1 vial SQ TIDAC [facility] PRN Reason: Protocol Last Admin: 11/23/16 11:17 Dose: 2 units Insulin Detemir (Levemir Vial) 22 units SQ AM [facility] Last Admin: 11/23/16 06:23 Dose: 22 units Insulin Detemir (Levemir Vial) 15 units SQ HS [facility] Last Admin: 11/22/16 22:42 Dose: 15 unit Lactobacillus Acidophilus (Bacid -) 1 tab GT DAILY [facility] Last Admin: 11/23/16 10:59 Dose: 1 tab Miscellaneous (Duragesic Patch Waste) 1 each TD PRN PRN Olanzapine (Zyprexa -) 2.5 mg GT HS [facility] Last Admin: 11/22/16 22:43 Dose: 2.5 mg Potassium Phos/Sodium Phos (Phos-Nak Packet -) 1 packet GT DAILY [facility] Last Admin: 11/23/16 11:00 Dose: 1 packet Ranitidine HCl (Zantac Oral Solution -) 150 mg GT DAILY [facility] Last Admin: 11/23/16 10:59 Dose: 150 mg A/P 81 year old woman well known to our service with PMhx of GIANNI's, Hypernatremia/ dehydration, UTI's, Hypertension, DM, PVD s/p amputations (B/L) who presented from [place] with Fever and found to have Sepsis secondary to suspected UTI with BUN/ Cr of 130/2.2. #Acute Renal Failure in setting of Sepsis renal function imporved and stable off IVF continue tube feeds and free water keep MAP> 65 avoid nephrotoxins if possible #Sepsis/UTI/Sacral wound off antibiotics presentlyo on wound vac vascular sx follow up #Hyperkalemia improved on Nephro tube feeds Vahid Manzano DO
[2016-11-23] MEDS ORDERED: VANCOMYCIN 1 GRAM (PRE-DOCKED) 250 ML IVPB ONE (16:33)
--- NOTE | 2016-11-23 19:19 | PN ---
Progress Note, Physician History of Present Illness: Awake, non verbal Afebrile Vancomycin trough 16.7 - Current Medication List Current Medications: Active Medications Acetaminophen (Tylenol Oral Solution -) 650 mg GT Q6H PRN PRN Reason: FEVER OR PAIN Last Admin: 11/22/16 02:35 Dose: 650 mg Amino Acids (Prosource No Carb Liquid Pkt) 30 ml PEG BID [facility] Last Admin: 11/23/16 10:59 Dose: 30 ml Ascorbic Acid (Vitamin C Oral Solution -) 500 mg GT TID [facility] Last Admin: 11/23/16 14:02 Dose: 500 mg Collagenase (Santyl -) 1 applic TP MoWeFr@1000 [facility] Last Admin: 11/22/16 14:00 Dose: 1 applic Doxazosin Mesylate (Cardura -) 2 mg GT DAILY [facility] Last Admin: 11/23/16 11:01 Dose: 2 mg Escitalopram Oxalate (Lexapro Oral Solution -) 10 mg GT DAILY [facility] Last Admin: 11/23/16 11:00 Dose: 10 mg Fentanyl (Duragesic 12mcg Patch -) 1 patch TD Q72H [facility] Last Admin: 11/21/16 12:31 Dose: 1 patch Ferrous Sulfate (Feosol) 330 mg PEG TID [facility] Last Admin: 11/23/16 14:03 Dose: 330 mg Heparin Sodium (Porcine) (Heparin -) 5,000 unit SQ BID [facility] Last Admin: 11/23/16 10:59 Dose: 5,000 unit Insulin Aspart (Novolog Vial Sliding Scale -) 1 vial SQ TIDAC [facility] PRN Reason: Protocol Last Admin: 11/23/16 17:53 Dose: Not Given Insulin Detemir (Levemir Vial) 22 units SQ AM [facility] Last Admin: 11/23/16 06:23 Dose: 22 units Insulin Detemir (Levemir Vial) 15 units SQ HS [facility] Last Admin: 11/22/16 22:42 Dose: 15 unit Lactobacillus Acidophilus (Bacid -) 1 tab GT DAILY [facility] Last Admin: 11/23/16 10:59 Dose: 1 tab Miscellaneous (Duragesic Patch Waste) 1 each TD PRN PRN Olanzapine (Zyprexa -) 2.5 mg GT HS [facility] Last Admin: 11/22/16 22:43 Dose: 2.5 mg Potassium Phos/Sodium Phos (Phos-Nak Packet -) 1 packet GT DAILY [facility] Last Admin: 11/23/16 11:00 Dose: 1 packet Ranitidine HCl (Zantac Oral Solution -) 150 mg GT DAILY [facility] Last Admin: 11/23/16 10:59 Dose: 150 mg - Objective Vital Signs: Vital Signs Temperature 99.2 F 11/23/16 17:15 Pulse Rate 78 11/23/16 17:15 Respiratory Rate 20 11/23/16 17:15 Blood Pressure 115/54 11/23/16 17:15 O2 Sat by Pulse Oximetry (%) 97 11/23/16 09:00 Constitutional: Yes: No Distress Eyes: Yes: Conjunctiva Clear Cardiovascular: Yes: Regular Rate and Rhythm, Murmur, S1, S2 Respiratory: Yes: CTA Bilaterally, Diminished Gastrointestinal: Yes: Normal Bowel Sounds, Soft Extremities: Yes: Other (s/p bilateral BKA) Labs: CBC, BMP 11/23/16 06:00 11/23/16 06:00 INR, PTT INR 1.02 (0.82-1.09) 11/16/16 22:10 Assessment/Plan SCN bacteremia Azotemia Hx CRE + Urine c/s VRE, yeast Vancomycin level noted Redose vanco x 1, then observe off Contact precautions
[2016-11-23] MEDS: OLANZapine 2.5 MG TABLET GT SCH (23:26)
[2016-11-24] MEDS ORDERED: PT OWN MED DRAWER 7, Y5N ONE ×4 (05:57→13:40)
[2016-11-24] MEDS: INSULIN SLIDING SCALE (NOVOLOG) 1 VIAL SQ SCH ×3 (06:28→16:42)
[2016-11-24] MEDS: INSULIN DETEMIR 100 UNITS/ML MDV SQ SCH (06:28)
[2016-11-24] MEDS: FERROUS SO4 300 MG/5 ML ORAL SOLN UNIT DOSE CUPS PEG SCH ×2 (06:31→13:44)
[2016-11-24] MEDS: BANATROL PLUS POWDER PACKET GT SCH ×2 (06:31→13:43)
[2016-11-24] MEDS: ASCORBIC ACID 500 MG/5 ML UNIT DOSE CUP GT SCH ×2 (08:01→13:44)
[2016-11-24 08:39] LABS: BASOPHIL 0.2 % (0-2.0); EOSINOPHIL 2.7 % (0-4.5); MCH 29.7 pg (25.7-33.7); MCHC 32.9 g/dl (32.0-36.0); MEAN CELL VOLUME 90.3 fl (80-96); MEAN PLT VOLUME 8.7 fl (7.5-11.1); NEUTROPHILS 58.1 % (42.8-82.8); PLATELET COUNT 321 K/MM3 (134-434); RDW 19.4 % (11.6-15.6); WHITE BLOOD COUNT 7.5 K/mm3 (4.0-10.0)
[2016-11-24 08:53] LABS: ANION GAP 5 (8-16); CALCIUM 8.4 mg/dL (8.5-10.1); CO2 27 mmol/L (21-32); CREATININE 0.6 mg/dL (0.55-1.02); GLUCOSE,RANDOM 113 mg/dL (74-106); PHOSPHOROUS 2.7 mg/dL (2.5-4.9)
[2016-11-24] MEDS: LACTOBACILLUS ACIDOPHILUS 1 EACH TAB (FP) GT SCH (09:53)
[2016-11-24] MEDS: DOXAZOSIN MESYLATE 2 MG TABLET (FP) GT SCH (09:54)
[2016-11-24] MEDS: ESCITALOPRAM OXALATE 5 MG/5 ML GT SCH (09:55)
[2016-11-24] MEDS: NAPH,MB-DB/K PH,MBDB POWDER PACKET GT SCH (09:56)
[2016-11-24] MEDS: MULTIVIT-MINERALS 236 ML ML PEG SCH (09:56)
[2016-11-24] MEDS: RANITIDINE HCL 150 MG/10 ML UNIT-DOSE CUP GT SCH (09:56)
[2016-11-24] MEDS: HEPARIN NA (PORCINE) 5,000 UNITS/ML 1ML VIAL SQ SCH (09:57)
[2016-11-24] MEDS: AMINO ACIDS/PROTEIN HYDROLYS 30 ML LIQUID.PKT PEG SCH (09:57)
[2016-11-24] MEDS ORDERED: INSULIN (NOVOLOG) ASPART 100 UNITS/ML 10ML VIAL ONE (11:52)
[2016-11-24] MEDS: fentaNYL 12mcg/hr PATCH.TD72 TD SCH (11:59)
[2016-11-24] MEDS: COLLAGENASE CLOSTRIDIUM HIST. 30 GRAMS TUBE TP SCH (12:30)
--- NOTE | 2016-11-24 14:38 | PN ---
Progress Note (short form) - Note Progress Note: Renal follow for GIANNI Pt seen and examined at the bedside no overnight events as reported by nurse no diarrhea on G-tube feeds off IVF Vital Signs Temperature 98.1 F 11/24/16 08:25 Pulse Rate 84 11/24/16 08:25 Respiratory Rate 20 11/24/16 08:25 Blood Pressure 119/52 11/24/16 08:25 O2 Sat by Pulse Oximetry (%) 98 11/23/16 21:00 Intake & Output 11/21/16 11/22/16 11/23/16 11/24/16 23:59 23:59 23:59 23:59 Intake Total 2756 1880 2436 968 Output Total 2600 1500 1200 500 Balance 114 321 3612 468 Weight 110 lb 9.6 oz 110 lb 1.6 oz 107 lb 4.8 oz 110 lb Gen: NAD, awake and alert CVS: RRR Lungs :CTA Abd: soft NT, G-tube in place Ext: b/L BKA, no edema CBC, BMP 11/24/16 08:00 11/24/16 08:00 Laboratory Tests 11/24/16 08:00 Calcium 8.4 L Phosphorus 2.7 Magnesium 2.0 Current Medications Acetaminophen (Tylenol Oral Solution -) 650 mg GT Q6H PRN PRN Reason: FEVER OR PAIN Last Admin: 11/22/16 02:35 Dose: 650 mg Amino Acids (Prosource No Carb Liquid Pkt) 30 ml PEG BID [facility] Last Admin: 11/24/16 09:57 Dose: 30 ml Ascorbic Acid (Vitamin C Oral Solution -) 500 mg GT TID [facility] Last Admin: 11/24/16 13:44 Dose: 500 mg Collagenase (Santyl -) 1 applic TP MoWeFr@1000 [facility] Last Admin: 11/24/16 12:30 Dose: 1 applic Doxazosin Mesylate (Cardura -) 2 mg GT DAILY [facility] Last Admin: 11/24/16 09:54 Dose: 2 mg Escitalopram Oxalate (Lexapro Oral Solution -) 10 mg GT DAILY [facility] Last Admin: 11/24/16 09:55 Dose: 10 mg Fentanyl (Duragesic 12mcg Patch -) 1 patch TD Q72H [facility] Last Admin: 11/24/16 11:59 Dose: 1 patch Ferrous Sulfate (Feosol) 330 mg PEG TID [facility] Last Admin: 11/24/16 13:44 Dose: 330 mg Insulin Aspart (Novolog Vial Sliding Scale -) 1 vial SQ TIDAC [facility] PRN Reason: Protocol Last Admin: 11/24/16 11:58 Dose: Not Given Insulin Detemir (Levemir Vial) 22 units SQ AM [facility] Last Admin: 11/24/16 06:28 Dose: 22 units Insulin Detemir (Levemir Vial) 15 units SQ HS [facility] Last Admin: 11/23/16 22:28 Dose: 15 unit Lactobacillus Acidophilus (Bacid -) 1 tab GT DAILY [facility] Last Admin: 11/24/16 09:53 Dose: 1 tab Miscellaneous (Duragesic Patch Waste) 1 each TD PRN PRN Olanzapine (Zyprexa -) 2.5 mg GT HS [facility] Last Admin: 11/23/16 23:26 Dose: 2.5 mg Potassium Phos/Sodium Phos (Phos-Nak Packet -) 1 packet GT DAILY [facility] Last Admin: 11/24/16 09:56 Dose: 1 packet Ranitidine HCl (Zantac Oral Solution -) 150 mg GT DAILY [facility] Last Admin: 11/24/16 09:56 Dose: 150 mg A/P 81 year old woman well known to our service with PMhx of GIANNI's, Hypernatremia/ dehydration, UTI's, Hypertension, DM, PVD s/p amputations (B/L) who presented from [place] with Fever and found to have Sepsis secondary to suspected UTI with BUN/ Cr of 130/2.2. #Acute Renal Failure in setting of Sepsis Renal function improved and stable #Sepsis/UTI/Sacral wound off Abx Vascular following wound care #Hyperkalemia improved on Nephro tube feeds #hypophosphatemia improved s/p neutraphos Vahid Manzano DO
--- NOTE | 2016-11-24 15:32 | PN ---
Progress Note, Physician Chief Complaint: Sepsis,UTI, dehydration, ARF History of Present Illness: Came in for sepsis and ARF secondary to UTI, NAD, in bed, opens eyes to name. Afebrile past 24 hours -IVF discontinued -renal fxn stable -off abx -cleared by ID and renal to be discharged back to [facility] - Current Medication List Current Medications: Active Medications Acetaminophen (Tylenol Oral Solution -) 650 mg GT Q6H PRN PRN Reason: FEVER OR PAIN Last Admin: 11/22/16 02:35 Dose: 650 mg Amino Acids (Prosource No Carb Liquid Pkt) 30 ml PEG BID [facility] Last Admin: 11/24/16 09:57 Dose: 30 ml Ascorbic Acid (Vitamin C Oral Solution -) 500 mg GT TID [facility] Last Admin: 11/24/16 13:44 Dose: 500 mg Collagenase (Santyl -) 1 applic TP MoWeFr@1000 [facility] Last Admin: 11/24/16 12:30 Dose: 1 applic Doxazosin Mesylate (Cardura -) 2 mg GT DAILY [facility] Last Admin: 11/24/16 09:54 Dose: 2 mg Escitalopram Oxalate (Lexapro Oral Solution -) 10 mg GT DAILY [facility] Last Admin: 11/24/16 09:55 Dose: 10 mg Fentanyl (Duragesic 12mcg Patch -) 1 patch TD Q72H [facility] Last Admin: 11/24/16 11:59 Dose: 1 patch Ferrous Sulfate (Feosol) 330 mg PEG TID [facility] Last Admin: 11/24/16 13:44 Dose: 330 mg Insulin Aspart (Novolog Vial Sliding Scale -) 1 vial SQ TIDAC [facility] PRN Reason: Protocol Last Admin: 11/24/16 11:58 Dose: Not Given Insulin Detemir (Levemir Vial) 22 units SQ AM [facility] Last Admin: 11/24/16 06:28 Dose: 22 units Insulin Detemir (Levemir Vial) 15 units SQ HS [facility] Last Admin: 11/23/16 22:28 Dose: 15 unit Lactobacillus Acidophilus (Bacid -) 1 tab GT DAILY [facility] Last Admin: 11/24/16 09:53 Dose: 1 tab Miscellaneous (Duragesic Patch Waste) 1 each TD PRN PRN Olanzapine (Zyprexa -) 2.5 mg GT HS [facility] Last Admin: 11/23/16 23:26 Dose: 2.5 mg Potassium Phos/Sodium Phos (Phos-Nak Packet -) 1 packet GT DAILY [facility] Last Admin: 11/24/16 09:56 Dose: 1 packet Ranitidine HCl (Zantac Oral Solution -) 150 mg GT DAILY [facility] Last Admin: 11/24/16 09:56 Dose: 150 mg - Objective Vital Signs: Vital Signs Temperature 98.4 F 11/24/16 15:23 Pulse Rate 82 11/24/16 15:23 Respiratory Rate 20 11/24/16 15:23 Blood Pressure 119/52 11/24/16 08:25 O2 Sat by Pulse Oximetry (%) 98 11/23/16 21:00 Constitutional: Yes: Well Nourished, No Distress, Calm Cardiovascular: Yes: Regular Rate and Rhythm Respiratory: Yes: Regular Gastrointestinal: Yes: Normal Bowel Sounds Extremities: Yes: Amputation (BLLE) Edema: No Wound/Incision: Yes: Dressing Dry and Intact Neurological: Yes: Alert, Pre-Existing Deficit Psychiatric: Yes: Alert Labs: CBC, BMP 11/24/16 08:00 11/24/16 08:00 INR, PTT INR 1.02 (0.82-1.09) 11/16/16 22:10 Problem List - Problems (1) Drug (multiple) resistant infection Assessment/Plan: -hx of CRE/MRSA/ESBl UC/BC: Microbiology Microbiology 11/16/16 23:00 Urine Culture - Preliminary Urine - Urine - Catheterized Group D Strep Or Entero Coccus Yeast Like Organism 11/16/16 22:10 Blood Culture - Preliminary Blood - Peripheral Venous Pending Organism 11/16/16 22:10 Blood Culture - Preliminary Blood - Peripheral Venous NO GROWTH OBTAINED AFTER 48 HOURS, INCUBATION TO CONTINUE FOR 3 DAYS. 11/17/16 16:00 Clostridium difficile Antigen (JAKY) - Final Stool Clostridium difficile Toxin Assay - Final -received vancomycin 11/21/16, random vanco 16.7 -ID on board -abx as per ID Code(s): 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 (2) Fever Assessment/Plan: -ID consult -has a decubitus ulcer, seen by Vascular Sx, continue to use santyl and wound vac. -afebrile Code(s): R50.9 - FEVER, UNSPECIFIED (3) Dehydration Assessment/Plan: -IVF discontinued-BUN/Cr much improved -monitor labs for BUN/Cr trending down Code(s): E86.0 - DEHYDRATION (4) Functional quadriplegia Code(s): R53.2 - FUNCTIONAL QUADRIPLEGIA (5) Decubitus ulcer Assessment/Plan: -wound vac -santyl -seen by Vascular Code(s): L89.90 - PRESSURE ULCER OF UNSPECIFIED SITE, UNSPECIFIED STAGE Qualifiers: Pressure ulcer location: buttock (6) Anemia Assessment/Plan: -received 1 unit of PRBC this admission -cancel 2nd unit -H/H stable -Stool OB negative -mild Iron deficiency last admission -Venofer 300 mg x 1 Code(s): D64.9 - ANEMIA, UNSPECIFIED Qualifiers: Anemia type: iron deficiency Iron deficiency anemia type: unspecified iron deficiency Qualified Code(s): D50.9 - Iron deficiency anemia, unspecified
--- NOTE | 2016-11-24 16:27 | DS ---
Physical Examination Vital Signs: Vital Signs Temperature 98.4 F 11/24/16 15:23 Pulse Rate 82 11/24/16 15:23 Respiratory Rate 20 11/24/16 15:23 Blood Pressure 119/52 11/24/16 08:25 O2 Sat by Pulse Oximetry (%) 98 11/23/16 21:00 Constitutional: Yes: Well Nourished, No Distress, Calm Cardiovascular: Yes: Regular Rate and Rhythm Respiratory: Yes: Regular Gastrointestinal: Yes: Normal Bowel Sounds Musculoskeletal: Yes: WNL Extremities: Yes: Amputation (BLLE) Edema: No Wound/Incision: Yes: Dressing Dry and Intact Neurological: Yes: Alert (screams intermittently) Psychiatric: Yes: Alert Labs: CBC, BMP 11/24/16 08:00 11/24/16 08:00 Discharge Summary Reason For Visit: FEVER Current Active Problems Anemia (Acute) C. difficile diarrhea (Acute) Dehydration (Acute) Drug (multiple) resistant infection (Acute) Electrolyte abnormality (Acute) Fever (Acute) Functional quadriplegia (Acute) Hyperkalemia (Acute) S/P AKA (above knee amputation) bilateral (Acute) Hospital Course: Ms. Barnard, 81 year old female originally came in to the ER for fever. Upon evaluation she was found to be severely dehydrated, septic and had UTI. Gonzales was placed in the ER. UC and B/C showed: Microbiology 11/16/16 22:10 Blood - Peripheral Venous Blood Culture - Final Micrococcus & Related Species 11/16/16 22:10 Blood - Peripheral Venous Blood Culture - Final Staphylococcus Epidermidis 11/16/16 23:00 Urine - Urine - Catheterized Urine Culture - Final Vr Ec Faecium Yeast Like Organism She was initially treated with IV gentamicin, tigecycline and then switched vanco as per renal and ID's recommendation. She was resuscitated with IVF which improved her renal function. She also has a stage 4 decubitus ulcer, was seen by vascular who recommended santyl and wound vac at 125 mm Hg. Gonzales was maintained to promote healing of decubitus ulcer. Her repeat Cdiff was negative. Her GT feedings were changed to Nepro at 38 cc/ hour with additional 50 cc/hour of free water, which is recommended to be maintained. P Condition: Stable - Instructions Diet, Activity, Other Instructions: GT feeding: Nepro at 38 cc/hr with additional H2O at 50 cc/hour Wound vac at 125 mm Hg Santyl on the wound daily repeat labs CBC/CMP in 1 week. Gonzales to be maintained/discontinued at the NH provider's discretion.If maintained,would change it Q30 days i.e.due on 12/18/16. If maintained would increase the risk of developing CAUTI, if not, could worsen the healing of decubitus ulcer. Referrals: Rashawn Garcia MD [Primary Care Provider] - Disposition: [facility] - Home Medications Comprehensive Discharge Medication List: Ambulatory Orders Aa/[place] Ivone,[place]/Arg/C/Zn/Cu [Lps Critical Care Liquid] 30 ml GT BID 09/28/16 Acetaminophen Oral Solution [Tylenol 160mg/5mL Oral Solution -] 640 mg GT Q6H PRN 09/28/16 Ascorbic Acid [Vitamin C] 500 mg GT TID 09/28/16 Escitalopram Oxalate [Lexapro 5mg/5mL Oral Solution -] 10 mg GT DAILY 09/28/16 Famotidine 20 mg GT DAILY 09/28/16 Ferrous Sulfate *Liquid* [Feosol *Liquid*] 330 mg GT TID 09/28/16 Vitamin B Comp W-C [Nephro-Rafael -] 1 tablet GT DAILY 09/28/16 Insulin Sliding Scale [Novolog Vial Sliding Scale -] 1 vial SQ ACHS units 10/08 Heparin - 5,000 units SQ BID 10/28/16 Doxazosin Mesylate [Cardura -] 2 mg GT DAILY tablet 11/08/16 FENTANYL 12mcg PATCH [DURAGESIC 12mcg PATCH -] 1 patch TD Q72H 7 Days MDD 1 Fentanyl Patch Waste [Duragesic Patch Waste] 1 each TD PRN PRN #0 each 11/08/16 Insulin (Levemir) [Levemir Vial] 15 units SQ HS ml 11/08/16 Insulin (Levemir) [Levemir Vial] 22 units SQ AM ml 11/08/16 Lactobacillus Acidophilus [Bacid -] 1 tab GT DAILY tab 11/08/16 Amino Acids/Protein Hydrolys [Prosource No Carb Liquid Pkt] 30 ml GT BID@0800, 1730 11/17/16 Collagenase Clostridium Hist. [Santyl -] 1 applic TP .TIW 11/17/16 FENTANYL 12mcg PATCH [DURAGESIC 12mcg PATCH -] 12 mcg TD Q72H 11/17/16 Naph,Mb-Db/K pH,Mbdb [PHOS-NaK PACKET -] 1 packet GT DAILY 11/17/16 Olanzapine 2.5 mg GT HS 11/17/16 Ranitidine Oral Solution [Zantac Oral Solution -] 150 mg GT ACBK 11/17/16 Amino Acids/Protein Hydrolys [Prosource No Carb Liquid Pkt] 30 ml PEG BID packet 11/24/16 Collagenase Clostridium Hist. [Santyl -] 1 applic TP MoWeFr@1000 tube 11/24/16 Doxazosin Mesylate [Cardura -] 2 mg GT DAILY tablet 11/24/16 Escitalopram Oxalate [Lexapro 5mg/5mL Oral Solution -] 10 mg GT DAILY ml FENTANYL 12mcg PATCH [DURAGESIC 12mcg PATCH -] 1 patch TD Q72H #10 patch MDD 1 11/24/16 Heparin - 5,000 unit SQ BID vial 11/24/16 Insulin (Levemir) [Levemir Vial] 15 units SQ HS ml 11/24/16 Insulin (Levemir) [Levemir Vial] 22 units SQ AM ml 11/24/16 Naph,Mb-Db/K pH,Mbdb [PHOS-NaK PACKET -] 1 packet GT DAILY #30 packet 11/24/16 Olanzapine [Zyprexa -] 2.5 mg GT HS tablet 11/24/16 Ranitidine Oral Solution [Zantac Oral Solution -] 150 mg GT DAILY ml 11/24/16
[2016-11-24 17:20] VITALS: BP 116/58; PULSE 80; TEMP 98.1
== END 2016-11-24 17:49 | DRG 871 ==
LOC: JER 21:00 → JERBED 22:59 → UNDOADMIN 23:59 → J8W 11-17 07:31
PROVIDERS: ADMIT Family Medicine; ATTEND Family Medicine
PROC: 30233N1 Transfusion of Nonautologous Red Blood Cells into Peripheral Vein, Percutaneous Approach (ICD-10-PCS; principal; 2016-11-21)
DX: A41.9 Sepsis, unspecified organism (principal); R53.2 Functional quadriplegia; L89.154 Pressure ulcer of sacral region, stage 4; N39.0 Urinary tract infection, site not specified; E87.0 Hyperosmolality and hypernatremia; N17.9 Acute kidney failure, unspecified; D64.9 Anemia, unspecified; E86.0 Dehydration; E87.5 Hyperkalemia; E83.39 Other disorders of phosphorus metabolism; F09 Unspecified mental disorder due to known physiological condition; Z16.35 Resistance to multiple antimicrobial drugs; F03.90 Unspecified dementia, unspecified severity, without behavioral disturbance, psychotic disturbance, mood disturbance, and anxiety; E11.9 Type 2 diabetes mellitus without complications; R13.10 Dysphagia, unspecified; Z79.4 Long term (current) use of insulin
CPT/HCPCS: 36415; 36430; 71010-TC; 80048; 80053; 81003; 81015; 82272; 83605; 83690; 83735; 84100; 85025; 85027; 85610; 86850; 86870; 86880; 86900; 86901; 86902; 86922; 87040; 87086; 87186; 87324; 87449; 93005; 93010; 93306-TC; 99283-25; G0480; J1644; J1756; J3243; J3480; P9038; P9058

== ENCOUNTER 2016-12-08 01:36 | Inpatient (IN) | payer OTHER ==
--- NOTE | 2016-12-08 01:58 | PDOC ---
History of Present Illness - General History Source: Jail Records, Old Records Exam Limitations: Dementia, Unresponsive - History of Present Illness Initial Comments: 12/08/16 02:30 The patient is an 81 year old female, with significant past medical history of Dementia, MRSA, C.difficile, pressure ulcer, recent sepsis, bilateral BKA, G- tube, CVA, aortic stenosis, CHF, hypertension, and hyperlipidemia, IDDM,who was recently discharged on 11/24/16 from a week long hospital stay for sepsis, UTI, and dehydration. The patient returns septic today and appears much less responsive than her last visit. HPI is limited. PCP: Dr. Garcia 12/08/16 02:33 <Viviana Power - Last Filed: 12/08/16 02:33> - General History Source: EMS <Rui Kathleen - Last Filed: 12/08/16 03:08> - General Chief Complaint: SIRS, Suspected/Possible Stated Complaint: SEPSIS Time Seen by Provider: 12/08/16 01:58 Past History <Viviana Power - Last Filed: 12/08/16 02:33> - Past Medical History Anemia: Yes CVA: Yes CHF: Yes Dementia: Yes Diabetes: Yes (IDDM) GI Disorders: Yes HTN: Yes Hypercholesterolemia: Yes Kidney Stones: No (acute kidney failure) Psychiatric Problems: Yes (anxeity,agitation,depression) Thyroid Disease: Yes - Surgical History Abdominal Surgery: Yes (G-Tube PLACEMENT.) - Reproductive History Ectopic : No Polycystic Ovaries: No - Psycho/Social/Smoking Cessation Hx Anxiety: No Suicidal Ideation: No Smoking Status: No Smoking History: Never smoked Have you smoked in the past 12 months: No Number of Cigarettes Smoked Daily: 0 Hx Alcohol Use: No Drug/Substance Use Hx: No Substance Use Type: None Hx Substance Use Treatment: No <Rui Kathleen - Last Filed: 12/08/16 03:08> - Past Medical History Allergies/Adverse Reactions: Allergies Allergy/AdvReac Type Severity Reaction Status Date / Time No Known Drug Allergies Allergy Verified 11/16/16 21:48 Home Medications: Ambulatory Orders Aa/[place] Ivone,[place]hey/Arg/C/Zn/Cu [Lps Critical Care Liquid] 30 ml GT BID 09/28/16 Acetaminophen Oral Solution [Tylenol 160mg/5mL Oral Solution -] 640 mg GT Q6H PRN 09/28/16 Ascorbic Acid [Vitamin C] 500 mg GT TID 09/28/16 Escitalopram Oxalate [Lexapro 5mg/5mL Oral Solution -] 10 mg GT DAILY 09/28/16 Famotidine 20 mg GT DAILY 09/28/16 Ferrous Sulfate *Liquid* [Feosol *Liquid*] 330 mg GT TID 09/28/16 Vitamin B Comp W-C [Nephro-Rafael -] 1 tablet GT DAILY 09/28/16 Insulin Sliding Scale [Novolog Vial Sliding Scale -] 1 vial SQ ACHS units 10/08 Heparin - 5,000 units SQ BID 10/28/16 Doxazosin Mesylate [Cardura -] 2 mg GT DAILY tablet 11/08/16 FENTANYL 12mcg PATCH [DURAGESIC 12mcg PATCH -] 1 patch TD Q72H 7 Days MDD 1 Fentanyl Patch Waste [Duragesic Patch Waste] 1 each TD PRN PRN #0 each 11/08/16 Insulin (Levemir) [Levemir Vial] 15 units SQ HS ml 11/08/16 Insulin (Levemir) [Levemir Vial] 22 units SQ AM ml 11/08/16 Lactobacillus Acidophilus [Bacid -] 1 tab GT DAILY tab 11/08/16 Amino Acids/Protein Hydrolys [Prosource No Carb Liquid Pkt] 30 ml GT BID@0800, 1730 11/17/16 Collagenase Clostridium Hist. [Santyl -] 1 applic TP .TIW 11/17/16 FENTANYL 12mcg PATCH [DURAGESIC 12mcg PATCH -] 12 mcg TD Q72H 11/17/16 Naph,Mb-Db/K pH,Mbdb [PHOS-NaK PACKET -] 1 packet GT DAILY 11/17/16 Olanzapine 2.5 mg GT HS 11/17/16 Ranitidine Oral Solution [Zantac Oral Solution -] 150 mg GT ACBK 11/17/16 Amino Acids/Protein Hydrolys [Prosource No Carb Liquid Pkt] 30 ml PEG BID packet 11/24/16 Collagenase Clostridium Hist. [Santyl -] 1 applic TP MoWeFr@1000 tube 11/24/16 Doxazosin Mesylate [Cardura -] 2 mg GT DAILY tablet 11/24/16 Escitalopram Oxalate [Lexapro 5mg/5mL Oral Solution -] 10 mg GT DAILY ml FENTANYL 12mcg PATCH [DURAGESIC 12mcg PATCH -] 1 patch TD Q72H #10 patch MDD 1 11/24/16 Heparin - 5,000 unit SQ BID vial 11/24/16 Insulin (Levemir) [Levemir Vial] 15 units SQ HS ml 11/24/16 Insulin (Levemir) [Levemir Vial] 22 units SQ AM ml 11/24/16 Naph,Mb-Db/K pH,Mbdb [PHOS-NaK PACKET -] 1 packet GT DAILY #30 packet 11/24/16 Olanzapine [Zyprexa -] 2.5 mg GT HS tablet 11/24/16 Ranitidine Oral Solution [Zantac Oral Solution -] 150 mg GT DAILY ml 11/24/16 Review of Systems - Review of Systems Able to Perform ROS?: (limited ) Comments:: 12/08/16 02:30 CONSTITUTIONAL: Present: fever, minimally responsive SKIN: Present: sacral decubiti <Viviana Power - Last Filed: 12/08/16 02:33> *Physical Exam - Vital Signs Last Vital Signs Temp Pulse Resp BP Pulse Ox 101.2 F H 85 26 H 86/53 100 12/08/16 01:37 12/08/16 01:37 12/08/16 01:37 12/08/16 01:37 12/08/16 02:23 - Physical Exam Comments: 12/08/16 02:31 GENERAL: Well developed, well nourished. Somnolent. Maintaining airway. HEENT: Normocephalic, atraumatic. No conjunctival pallor. Sclerae are non-icteric. Moist mucous membranes. Oropharynx is clear. NECK: Supple. Full ROM. No JVD. Carotid pulses 2+ and symmetric, without bruits. No thyromegaly. No lymphadenopathy. CARDIOVASCULAR: 4/6 holosystolic murmur. Regular rate and rhythm. No rubs, or gallops. Distal pulses are 2+ and symmetric. PULMONARY: No evidence of respiratory distress. Lungs clear to auscultation bilaterally. No wheezing, rales or rhonchi. ABDOMINAL: Soft. Non-tender. Feeding tube in place. Non-distended. No rebound or guarding. No organomegaly. Normoactive bowel sounds. MUSCULOSKELETAL Normal range of motion at all joints. No bony deformities or tenderness. No CVA tenderness. EXTREMITIES: Below the knee amputation of the right leg. No cyanosis. No clubbing. No edema. No calf tenderness. SKIN: Sacral decubiti is very large with necrotic edges. Warm and dry. Normal capillary refill. No rashes. No jaundice. <Viviana Power - Last Filed: 12/08/16 02:33> ED Treatment Course - LABORATORY CBC & Chemistry Diagram: 12/08/16 02:00 12/08/16 02:00 - ADDITIONAL ORDERS Additional order review: Laboratory Results 12/08/16 02:00 INR 1.04 PTT (Actin FS) 29.1 12/08/16 02:00 RBC 2.72 L MCV 96.3 H MCHC 31.8 L RDW 21.5 H D MPV 10.3 D Neutrophils % 61.7 Lymphocytes % 32.7 Monocytes % 4.0 Eosinophils % 0.5 D Basophils % 1.1 D <Viviana Power - Last Filed: 12/08/16 02:33> - LABORATORY CBC & Chemistry Diagram: 12/08/16 02:00 12/08/16 02:00 <Rui Kathleen - Last Filed: 12/08/16 03:08> Medical Decision Making - Medical Decision Making 12/08/16 03:06 Spoke to VICE INVESTIGATOR Cecilia Bentley will take pt to ICU. spoke to Dr. Garcia. he not to start pt on any Abx at this time, as he said pt has been resistant to many Abx and would rather have ID seen her in the Am and make that decision <Rui Kathleen - Last Filed: 12/08/16 03:08> *DC/Admit/Observation/Transfer - Attestations Scribe Attestion: 12/08/16 02:33 Documentation prepared by LEONELA Mendez, acting as medical unit secretary for Rui Kathleen MD. <Viviana Power - Last Filed: 12/08/16 02:33> - Discharge Dispostion Admit: Yes <Rui Kathleen - Last Filed: 12/08/16 03:08> Diagnosis at time of Disposition: Sacral decubitus ulcer, stage III, Fever, Severe sepsis - Referrals Referrals: Rashawn Garcia MD [Primary Care Provider] -
[2016-12-08] MEDS ORDERED: SODIUM CHLORIDE 0.9% 1000 ML INFUS.BAG IV PRN (01:59)
[2016-12-08 02:09] LABS: BASOPHIL 1.1 % (0-2.0); EOSINOPHIL 0.5 % (0-4.5); MCH 30.6 pg (25.7-33.7); MCHC 31.8 g/dl (32.0-36.0); MEAN CELL VOLUME 96.3 fl (80-96); MEAN PLT VOLUME 10.3 fl (7.5-11.1); NEUTROPHILS 61.7 % (42.8-82.8); PLATELET COUNT 257 K/MM3 (134-434); RDW 21.5 % (11.6-15.6)
[2016-12-08 02:22] VITALS: BMI 23.9
[2016-12-08 02:24] LABS: INR 1.04 (0.82-1.09); PROTHROMBIN TIME (PATIENT) 11.4 SEC (9.98-11.88)
[2016-12-08 02:27] LABS: ACTIVATED PTT 29.1 SECONDS (26.9-34.4)
[2016-12-08 02:34] LABS: ALBUMIN 1.8 g/dl (3.4-5.0); ANION GAP 9 (8-16); BILIRUBIN,TOTAL 0.2 mg/dL (0.2-1.0); CALCIUM 8.3 mg/dL (8.5-10.1); CO2 29 mmol/L (21-32); CREATININE 1.3 mg/dL (0.55-1.02); GLUCOSE,RANDOM 255 mg/dL (74-106); SGPT/ALT 19 U/L (12-78); TOT PROT 7.4 g/dl (6.4-8.2)
[2016-12-08 02:35] LABS: VENOUS BLOOD GAS HCO3 31.8 meq/L (19-25); VENOUS PH 7.38 (7.32-7.42)
[2016-12-08 02:37] LABS: ALK PHOS 95 U/L (45-117); CPK 61 IU/L (26-192); TROPONIN I 0.11 ng/ml (0.00-0.05)
[2016-12-08 02:45] LABS: URINE APPEARANCE TURBID; URINE BILIRUBIN NEGATIVE (NEGATIVE); URINE BLOOD 1+ (NEGATIVE); URINE COLOR AMBER; URINE GLUCOSE (UA) 1+ (NEGATIVE); URINE KETONE NEGATIVE (NEGATIVE); URINE NITRITE NEGATIVE (NEGATIVE); URINE UROBILINOGEN NEGATIVE mg/dL (0.2-1.0)
[2016-12-08] MEDS ORDERED: IMIPENEM/CILASTATIN SODIUM 500 MG in SODIUM CHLORIDE 100 ML IVPB ONE (02:47)
[2016-12-08 02:49] LABS: SGOT/AST 20 U/L (15-37)
[2016-12-08 03:16] LABS: URINE LEUK ESTERASE 3+ (NEGATIVE); URINE PROTEIN 2+ (NEGATIVE)
[2016-12-08 03:20] LABS: URINE BACTERIA MODERATE /hpf (NONE SEEN); URINE HYALINE CAST 57 /lpf; URINE MUCUS RARE; URINE RBC 88 /hpf (0-3); URINE WBC 337 /hpf (3-5); YEAST MANY
[2016-12-08] MEDS: SODIUM CHLORIDE 1,000 ML IV SCH ×3 (03:31→21:30)
[2016-12-08 04:08] LABS: TROPONIN I 0.09 ng/ml (0.00-0.05)
[2016-12-08 04:36] LABS: HYPOCHROMIA RARE; PLATELET ESTIMATE ADEQUATE (NORMAL)
[2016-12-08 04:37] LABS: ANISOCYTOSIS 2+; MICROCYTOSIS 1+
[2016-12-08] MEDS: ACETAMINOPHEN 650 MG/20.3 ML ORAL SOLUTION (CUPS) GT PRN (06:46)
[2016-12-08] MEDS: ASCORBIC ACID 500 MG/5 ML UNIT DOSE CUP GT SCH ×3 (06:47→21:47)
[2016-12-08] MEDS: INSULIN SLIDING SCALE (NOVOLOG) 1 VIAL SQ SCH ×3 (07:15→21:27)
[2016-12-08] MEDS: AMINO ACIDS/PROTEIN HYDROLYS 30 ML LIQUID.PKT GT SCH (09:34)
[2016-12-08] MEDS: HEPARIN NA (PORCINE) 5,000 UNITS/ML 1ML VIAL SQ SCH ×2 (09:34→21:31)
[2016-12-08] MEDS: PANTOPRAZOLE SODIUM 40 MG in SODIUM CHLORIDE 100 ML IVPB SCH (09:35)
[2016-12-08] MEDS: ESCITALOPRAM OXALATE 5 MG/5 ML GT SCH (09:35)
[2016-12-08] MEDS ORDERED: PANTOPRAZOLE SODIUM 100 ML IVPB ONE (09:37)
--- NOTE | 2016-12-08 09:43 | HP ---
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: CVA, Dementia Cardiovascular: Yes: Aortic Stenosis, CHF, HTN, Hyperlipdemia Pulmonary: Yes: COPD Gastrointestinal: Yes: GERD Renal/: Yes: Renal Inusuff Heme/Onc: Yes: Anemia Endocrine: Yes: Diabetes Mellitus Dermatology: Yes: Other (PU) - Smoking History Smoking history: Never smoked Have you smoked in the past 12 months: No Aproximately how many cigarettes per day: 0 - Alcohol/Substance Use Hx Alcohol Use: No - Social History History of Recent Travel: No Home Medications - Allergies Allergies/Adverse Reactions: Allergies Allergy/AdvReac Type Severity Reaction Status Date / Time No Known Drug Allergies Allergy Verified 12/08/16 03:39 - Home Medications Home Medications: Ambulatory Orders Acetaminophen Oral Solution [Tylenol 160mg/5mL Oral Solution -] 650 mg GT Q6H PRN 12/08/16 Ceftriaxone Na/Dextrose,Iso [Ceftriaxone 1 gm-D5w Bag] 1 gm IV DAILY 12/08/16 Doxazosin Mesylate [Cardura] 2 mg GT DAILY 12/08/16 Escitalopram Oxalate [Lexapro 5mg/5mL Oral Solution -] 10 mg GT DAILY 12/08/16 FENTANYL 12mcg PATCH [DURAGESIC 12mcg PATCH -] 1 each TD Q72H 12/08/16 Ferrous Sulfate *Liquid* [Feosol *Liquid*] 330 mg GT TID 12/08/16 Heparin - 5,000 units IJ BID 12/08/16 Insulin Aspart [Novolog Flexpen] 0 unit SQ TID 12/08/16 Insulin Detemir [Levemir Flextouch] 18 unit SQ HS 12/08/16 Insulin Detemir [Levemir Flextouch] 25 unit SQ DAILY 12/08/16 Lactobacillus Acidophilus [Acidophilus] 1 each GT DAILY 12/08/16 Naph,Mb-Db/K pH,Mbdb [PHOS-NaK PACKET -] 1 packet GT DAILY 12/08/16 Ranitidine HCl 150 mg GT DAILY 12/08/16 Vit C/Ascorbate Calcium,Sodium [Vitamin C 500 mg/15 ml Liquid] 500 mg GT Q8H Vitamin B Comp W-C [Nephro-Rafael -] 1 tablet GT DAILY 12/08/16 Tigecycline [Tygacil (Restricted To Id) -] 50 mg IVPB BID vial 12/13/16 Review of Systems - Review of Systems Constitutional: reports: Fever, Lethargy Physical Examination Vital Signs: Vital Signs Temperature 98.9 F 12/08/16 08:45 Pulse Rate 81 12/08/16 09:31 Respiratory Rate 14 12/08/16 09:31 Blood Pressure 88/47 12/08/16 09:31 O2 Sat by Pulse Oximetry (%) 100 12/08/16 09:31 Cardiovascular: Yes: Murmur, S1, S2 Respiratory: Yes: Diminished, On Nasal O2 Gastrointestinal: Yes: Normal Bowel Sounds, Soft, Other (peg) Extremities: Yes: Amputation Wound/Incision: Yes: Other (vac) Neurological: Yes: Lethargy Problem List - Problems (1) Severe sepsis Assessment/Plan: CULTURES IV ABX ID CONSULT IVF Code(s): A41.9 - SEPSIS, UNSPECIFIED ORGANISM R65.20 - SEVERE SEPSIS WITHOUT SEPTIC SHOCK (2) Fever Assessment/Plan: ABOVE Code(s): R50.9 - FEVER, UNSPECIFIED (3) Aortic stenosis Assessment/Plan: CARDIO Code(s): I35.0 - NONRHEUMATIC AORTIC (VALVE) STENOSIS Qualifiers: Cardiac valve disease etiology: nonrheumatic Qualified Code(s): I35.0 - Nonrheumatic aortic (valve) stenosis (4) Decubitus ulcer Assessment/Plan: IV ABX WOUND CARE SURGICAL CONSULT Code(s): L89.90 - PRESSURE ULCER OF UNSPECIFIED SITE, UNSPECIFIED STAGE Qualifiers: Pressure ulcer location: buttock (5) Hypotension Assessment/Plan: DUE TO SEPSIS IVF MONITOR Code(s): I95.9 - HYPOTENSION, UNSPECIFIED (6) Acute kidney injury superimposed on CKD Assessment/Plan: MONITOR Code(s): N17.9 - ACUTE KIDNEY FAILURE, UNSPECIFIED N18.9 - CHRONIC KIDNEY DISEASE, UNSPECIFIED (7) Functional quadriplegia Code(s): R53.2 - FUNCTIONAL QUADRIPLEGIA
[2016-12-08] MEDS ORDERED: NOREPINEPHRINE BITARTRATE 4,000 MCG in DEXTROSE 5%-WATER - 496 ML IV SCH (09:45)
[2016-12-08] MEDS ORDERED: MUPIROCIN 2% TOPICAL OINTMENT FOR DECOLONIZATION NS SCH (10:00)
--- NOTE | 2016-12-08 11:09 | EKG ---
Test Reason : Blood Pressure : / mmHG Vent. Rate : 088 BPM Atrial Rate : 088 BPM P-R Int : 110 ms QRS Dur : 086 ms QT Int : 426 ms P-R-T Axes : 017 -18 120 degrees QTc Int : 515 ms SINUS RHYTHM WITH SHORT ME WITH PREMATURE ATRIAL COMPLEXES LEFT VENTRICULAR HYPERTROPHY WITH REPOLARIZATION ABNORMALITY PROLONGED QT ABNORMAL ECG WHEN COMPARED WITH ECG OF 16-NOV-2016 23:40, NO SIGNIFICANT CHANGE WAS FOUND Confirmed by CHA DEL RIO MD ([id number]) on 12/08/2016 11:08:43 AM Referred By: Confirmed By:CHA DEL RIO MD
--- NOTE | 2016-12-08 12:17 | PN ---
Progress Note (short form) - Note Progress Note: ID consult dictated imp/reccd sepsis- source- urine, decub, lung?, recurrent cdiff sent from [place] with fever, lethargy found to be bypotensive recent history of cdiff sacral ulcer with vac- removed- stage 4 ulcer with some necrotic edges pyuria- conley placed in ED history of prior multidrug resistant organisms recent rocephin started on 12/03 at [facility]- not sure why received imipenem in ED BP improved with IVF repeat lactic acid now normal sepsis- ?decub, ?urine r/o recurrent cdiff bilateral BKA strict contact isolation empiric gentamicin and tygacil based on prior culture results daptomycin one dose for vre/Gram positive infection flagyl iv for cdiff-empiric f/u cultures f/u cdiff wound care for sacral ulcer continue iv hydration advanced directives she has been hospitalized monthly since June Problem List - Problems (1) Severe sepsis Code(s): A41.9 - SEPSIS, UNSPECIFIED ORGANISM R65.20 - SEVERE SEPSIS WITHOUT SEPTIC SHOCK (2) C. difficile diarrhea Code(s): A04.7 - ENTEROCOLITIS DUE TO CLOSTRIDIUM DIFFICILE (3) UTI (urinary tract infection) Code(s): N39.0 - URINARY TRACT INFECTION, SITE NOT SPECIFIED Qualifiers: Urinary tract infection type: acute cystitis Hematuria presence: without hematuria Qualified Code(s): N30.00 - Acute cystitis without hematuria (4) Pneumonia Code(s): J18.9 - PNEUMONIA, UNSPECIFIED ORGANISM Qualifiers: Pneumonia type: due to unspecified organism Laterality: left Lung location: lower lobe of lung Qualified Code(s): J18.1 - Lobar pneumonia, unspecified organism (5) Sacral decubitus ulcer, stage III Code(s): L89.153 - PRESSURE ULCER OF SACRAL REGION, STAGE 3 (6) Acute kidney injury superimposed on CKD Code(s): N17.9 - ACUTE KIDNEY FAILURE, UNSPECIFIED N18.9 - CHRONIC KIDNEY DISEASE, UNSPECIFIED (7) Drug (multiple) resistant infection Code(s): 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
[2016-12-08] MEDS ORDERED: TIGECYCLINE 100 MG in DEXTROSE 5%-WATER - 100 ML IVPB ONE (12:18)
[2016-12-08] MEDS ORDERED: GENTAMICIN 80 MG PREMIXED IVPB 100 ML IVPB ONE ×2 (12:20→12:51)
[2016-12-08] MEDS: METRONIDAZOLE 500 MG PREMIXED 100 ML IVPB SCH (12:51)
[2016-12-08] MEDS ORDERED: METRONIDAZOLE 500 MG PREMIXED 100 ML IVPB ONE (12:51)
[2016-12-08] MEDS ORDERED: DAPTOMYCIN 250 MG in SODIUM CHLORIDE 50 ML IVPB ONE (14:00)
--- NOTE | 2016-12-08 14:53 | CON.CARD ---
Consult Consult Specialty:: Cardiology Reason for Consultation:: Hypotension - History of Present Illness History of Present Illness: 81 year old female, with significant past medical history of Dementia, MRSA, C.difficile, pressure ulcer, recent sepsis, bilateral BKA, G-tube, CVA, aortic stenosis, CHF, hypertension, and hyperlipidemia, IDDM,who was recently discharged on 11/24/16 from a week long hospital stay for sepsis, UTI, and dehydration. Returns for fever and change in MS. 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: CVA, Dementia Cardio/Vascular: Yes: Aortic Stenosis, CHF, HTN, Hyperlipdemia Pulmonary: Yes: COPD Gastrointestinal: Yes: GERD Renal/: Yes: Renal Inusuff Endocrine: Yes: Diabetes Mellitus Dermatology: Yes: Other (PU) - Alcohol/Substance Use Hx Alcohol Use: No - Smoking History Smoking history: Never smoked Have you smoked in the past 12 months: No Aproximately how many cigarettes per day: 0 - Social History Usual Living Arrangement: [facility] History of Recent Travel: No Home Medications - Allergies Allergies/Adverse Reactions: Allergies Allergy/AdvReac Type Severity Reaction Status Date / Time No Known Drug Allergies Allergy Verified 12/08/16 03:39 - Home Medications Home Medications: Ambulatory Orders Acetaminophen Oral Solution [Tylenol Oral Solution -] 650 mg GT Q6H PRN Ceftriaxone Na/Dextrose,Iso [Ceftriaxone 1 gm-D5w Bag] 1 gm IV DAILY 12/08/16 Doxazosin Mesylate [Cardura] 2 mg GT DAILY 12/08/16 Escitalopram Oxalate [Lexapro Oral Solution -] 10 mg GT DAILY 12/08/16 FENTANYL 12mcg PATCH [DURAGESIC 12mcg PATCH -] 1 each TD Q72H 12/08/16 Ferrous Sulfate *Liquid* [Feosol] 330 mg GT TID 12/08/16 Heparin - 5,000 units IJ BID 12/08/16 Insulin Aspart [Novolog] 0 unit SQ TID 12/08/16 Insulin Detemir [Levemir Flextouch] 18 unit SQ HS 12/08/16 Insulin Detemir [Levemir Flextouch] 25 unit SQ DAILY 12/08/16 Lactobacillus Acidophilus [Acidophilus] 1 each GT DAILY 12/08/16 Naph,Mb-Db/K pH,Mbdb [PHOS-NaK PACKET -] 1 packet GT DAILY 12/08/16 Ranitidine HCl 150 mg GT DAILY 12/08/16 Vit C/Ascorbate Calcium,Sodium [Vitamin C 500 mg/15 ml Liquid] 500 mg GT Q8H Vitamin B Comp W-C [Nephro-Rafael -] 1 tablet GT DAILY 12/08/16 Review of Systems Unable to obtain ROS, reason: Dementia Vital Signs: Vital Signs Temperature 98.6 F 12/08/16 09:54 Pulse Rate 71 12/08/16 13:05 Respiratory Rate 16 12/08/16 13:05 Blood Pressure 105/56 12/08/16 13:05 O2 Sat by Pulse Oximetry (%) 100 12/08/16 13:05 Constitutional: Yes: Cachectic Eyes: Yes: Conjunctiva Clear, EOM Intact HENT: Yes: Atraumatic, Normocephalic Neck: Yes: Supple, Trachea Midline Respiratory: Yes: Regular, CTA Bilaterally Gastrointestinal: Yes: Normal Bowel Sounds Cardiovascular: Yes: Regular Rate and Rhythm JVD: No Carotid Bruit: No Heart Sounds: Yes: S1, S2 Murmur: Yes: Systolic Murmur, Grade 2 Edema: No - Other Data Labs, Other Data: INR, PTT INR 1.04 (0.82-1.09) 12/08/16 02:00 Troponin, BNP 12/08/16 03:36 Troponin I 0.09 H Troponin, BNP 12/08/16 03:36 Troponin I 0.09 H Imaging - Results Chest X-ray: Report Reviewed X-ray: Report Reviewed EKG: Image Reviewed (NSR no STT changes) Problem List - Problems (1) Severe sepsis Code(s): A41.9 - SEPSIS, UNSPECIFIED ORGANISM R65.20 - SEVERE SEPSIS WITHOUT SEPTIC SHOCK (2) Aortic stenosis Code(s): I35.0 - NONRHEUMATIC AORTIC (VALVE) STENOSIS Qualifiers: Cardiac valve disease etiology: nonrheumatic Qualified Code(s): I35.0 - Nonrheumatic aortic (valve) stenosis Assessment/Plan 81 F with demantia and recurrent sepsis. She has moderate and in the setting of her infection has mild TP elevation due to demand medicated ischemia. Her dementia precludes further invasinve cardiac testing. COntinue management of her sepsis. Will see as needed.
--- NOTE | 2016-12-08 16:31 | CONSULT ---
Consult Consult Specialty:: PULMONARY/CCM Referred by:: Dr. Garcia Reason for Consultation:: sepsis - History of Present Illness Chief Complaint: fever History of Present Illness: 81yo female with h/o HTN, hyperlipidemia, sacral decubitus ulcers, left ventricular diastolic dysfunction, mitral regurgitation, aortic stenosis, h/o bilateral BKA, dementia who was sent from the care home for fever and altered mental status. Pt is unable to provide further history at this time. Initially hypotensive upon presentation but has received IVF resuscitation with improvement in blood pressure. 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 Cardio/Vascular: Yes: Aortic Stenosis, CHF, HTN, Hyperlipdemia Pulmonary: Yes: COPD Gastrointestinal: Yes: GERD Renal/: Yes: Renal Inusuff Endocrine: Yes: Diabetes Mellitus Dermatology: Yes: Other (PU) - Alcohol/Substance Use Hx Alcohol Use: No - Smoking History Smoking history: Never smoked Have you smoked in the past 12 months: No Aproximately how many cigarettes per day: 0 - Social History Usual Living Arrangement: Senior Living History of Recent Travel: No Home Medications - Allergies Allergies/Adverse Reactions: Allergies Allergy/AdvReac Type Severity Reaction Status Date / Time No Known Drug Allergies Allergy Verified 12/08/16 03:39 - Home Medications Home Medications: Ambulatory Orders Acetaminophen Oral Solution [Tylenol Oral Solution -] 650 mg GT Q6H PRN Ceftriaxone Na/Dextrose,Iso [Ceftriaxone 1 gm-D5w Bag] 1 gm IV DAILY 12/08/16 Doxazosin Mesylate [Cardura] 2 mg GT DAILY 12/08/16 Escitalopram Oxalate [Lexapro Oral Solution -] 10 mg GT DAILY 12/08/16 FENTANYL 12mcg PATCH [DURAGESIC 12mcg PATCH -] 1 each TD Q72H 12/08/16 Ferrous Sulfate *Liquid* [Feosol] 330 mg GT TID 12/08/16 Heparin - 5,000 units IJ BID 12/08/16 Insulin Aspart [Novolog] 0 unit SQ TID 12/08/16 Insulin Detemir [Levemir Flextouch] 18 unit SQ HS 12/08/16 Insulin Detemir [Levemir Flextouch] 25 unit SQ DAILY 12/08/16 Lactobacillus Acidophilus [Acidophilus] 1 each GT DAILY 12/08/16 Naph,Mb-Db/K pH,Mbdb [PHOS-NaK PACKET -] 1 packet GT DAILY 12/08/16 Ranitidine HCl 150 mg GT DAILY 12/08/16 Vit C/Ascorbate Calcium,Sodium [Vitamin C 500 mg/15 ml Liquid] 500 mg GT Q8H Vitamin B Comp W-C [Nephro-Rafael -] 1 tablet GT DAILY 12/08/16 Review of Systems Unable to obtain ROS, reason: pt nonverbal Physical Exam Vital Signs: Vital Signs Temperature 99.4 F 12/08/16 16:10 Pulse Rate 75 12/08/16 16:10 Respiratory Rate 14 12/08/16 16:10 Blood Pressure 103/51 12/08/16 16:10 O2 Sat by Pulse Oximetry (%) 98 12/08/16 16:10 Constitutional: Yes: Ashen, Other (lethargic) Eyes: Yes: Conjunctiva Clear, EOM Intact HENT: Yes: Atraumatic, Normocephalic Neck: Yes: Supple, Trachea Midline Cardiovascular: Yes: Regular Rate and Rhythm Respiratory: Yes: Regular, Diminished (decreased breath sounds at the bases) Gastrointestinal: Yes: Normal Bowel Sounds, Soft. No: Tenderness Extremities: Yes: Other (bilateral BKA) Edema: No Imaging - Results Chest X-ray: Report Reviewed, Image Reviewed (possible bibasilar atelectasis vs infiltrates) Assessment/Plan Sacral Decubitus Ulcer Infection UTI Severe Sepsis Lactic Acidosis LV Diastolic Dysfunction Mitral Regurgitation h/o Bilateral BKA HTN Dementia - IV antibiotics to cover health care acquired organisms - f/u cultures - wound care - surgery eval for debridement - IVF resuscitatation - aspiration precautions - monitor urine output, creatinine - DVT prophylaxis - blood pressure has improved with IVF, does not require ICU monitoring at this time Thank you for this consult Sonu Monteiro MD
--- NOTE | 2016-12-08 20:46 | CONS ---
DATE OF CONSULTATION: 12/08/2016 REQUESTED BY: Rashawn Garcia MD This is a very debilitated retirement resident. She is 81 years old, with multiple recurrent admissions at least once a month since June of this year, who is now re-admitted with fever. She has a past medical history of bilateral BKA and she is nonverbal. She does not follow any commands. She was sent to the hospital for fever. Looking at the papers from the retirement, she was recently started on ceftriaxone there. Of note, she was in the hospital here in October with C difficile colitis with positive toxin and antigen. 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 As well, she recently had a coagulase-negative staphylococcus bacteremia. She was treated with vancomycin and she had VRE in her urine. She received IV fluids and a dose of imipenem in the emergency room after cultures were obtained. Her blood pressure, which was systolic, was less than 100 on admission, has improved and currently her blood pressure is 105/56. She has a sacral ulcer. We removed the VAC dressing to examine the sacral ulcer and she has a stage 4 ulcer with some necrotic edges. As well, while we were examining her, she had a foul-smelling loose bowel movement. She is unable to give any history. Her past medical history is notable for anemia, CVA, congestive heart failure, dementia, diabetes, hypertension, hypercholesterolemia, anxiety, agitation, depression, thyroid disease. She has a VAC dressing. She has a G-tube. She has had bilateral BKAs. She has no known drug allergies. Her medications from the retirement include ceftriaxone, which was started on the , as well as acetaminophen, vitamin C, Lexapro, famotidine, vitamin D, ferrous sulfate, insulin, Cardura, fentanyl patch, insulin, lactobacillus, ranitidine, ProSource. Family history is not available. SOCIAL HISTORY: She is a retirement resident. PHYSICAL EXAMINATION: General: She is responsive, nonverbal. She moves her arms and she grimaces. She is trying to open her eyes. HEENT: She is normocephalic. She will not open her mouth. Lungs: Diminished breath sounds at the bases. Heart: Regular rate and rhythm. Abdomen: Soft, nontender. She does not grimace when you examine her. Genitourinary: Gonzales was placed and has cloudy urine. Extremities: She has bilateral BKAs that are well healed. She has a stage 4 sacral ulcer with necrotic edges. Her chest x-ray is notable for some opacities in her right lower lobe. She has some atelectasis at the left base. Her white count is 12, hemoglobin 8.3, platelets are 257. BUN 104, creatinine 1.3, lactic acid was 2.1 and was repeated to 1.6. Urinalysis has 337 white cells, moderate epi's, moderate bacteria. Cultures have been sent. In summary, this is an 81-year-old woman sent from the retirement with fever and lethargy. she has 1. sepsis 2. possible recurrent cdiff 3.possible recurrent UTI 4. abnormal cxray- possible pneumonia 5. possible infected sacral ulcer 6.GIANNI on CKD 7.history of Multidrug resistant organisms including CRE and VRE- needs strict contact isolation Concerns would include sepsis. Possible sources would include her decubitus ulcer as well as urinary tract infection. As well, she appears to have continued loose stools and may have a chronic Clostridium difficile from being on ceftriaxone at the retirement, or possibly pneumonia, given her chest x-ray findings. She has a history of prior multidrug-resistant organisms and recent Rocephin use. Would recommend strict contact isolation, empiric gentamicin and Tygacil based on prior culture results. Would obtain a gentamicin level in the morning, daptomycin 1 dose for vancomycin-resistant enterococcus gram-positive infection, given her most recent culture results, empiric Flagyl for C difficile. Follow up her culture. Follow up her C difficile. Will send a Legionella urinary antigen as well, given the chest x-ray findings, and wound care for sacral ulcer. She should be seen by Surgery for the ulcer as well. Would continue IV hydration, advanced directives. Overall prognosis is poor. RORO PETERS M.D. [id number] MTDD
[2016-12-08] MEDS ORDERED: PT OWN MED DRAWER 7, Y5N ONE (21:18)
[2016-12-08] MEDS ORDERED: SODIUM CHLORIDE 250 ML IV ONE (21:30)
[2016-12-08] MEDS: INSULIN DETEMIR 100 UNITS/ML MDV SQ SCH (21:31)
[2016-12-08] MEDS: TIGECYCLINE 50 MG in DEXTROSE 5%-WATER - 100 ML IVPB SCH (21:47)
[2016-12-08] MEDS ORDERED: CHLORHEXIDINE GLUCONATE 4% CLEANSER FOR DECOLONIZATION TP SCH (22:00)
--- NOTE | 2016-12-09 00:42 | CONSULT ---
Consult Consult Specialty:: ENDOCRINE Referred by:: DR.ANNABI RANDHAWA Reason for Consultation:: DIABETES MELLITUS - History of Present Illness Chief Complaint: CONFUSED LETHARGIC History of Present Illness: 81 year old female, with significant past medical history of Dementia, MRSA, C.difficile, pressure ulcer, recent sepsis, bilateral BKA, G-tube, CVA, aortic stenosis, CHF, hypertension, and hyperlipidemia, IDDM,who was recently discharged on 11/24/16 from a week long hospital stay for sepsis, UTI, and dehydration. 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 Cardio/Vascular: Yes: Aortic Stenosis, CHF, HTN, Hyperlipdemia Pulmonary: Yes: COPD Gastrointestinal: Yes: GERD Renal/: Yes: Renal Inusuff ...: No Endocrine: Yes: Diabetes Mellitus Dermatology: Yes: Other (PU) - Alcohol/Substance Use Hx Alcohol Use: No - Smoking History Smoking history: Never smoked Have you smoked in the past 12 months: No Aproximately how many cigarettes per day: 0 - Social History Usual Living Arrangement: Custodial History of Recent Travel: No Home Medications - Allergies Allergies/Adverse Reactions: Allergies Allergy/AdvReac Type Severity Reaction Status Date / Time No Known Drug Allergies Allergy Verified 12/08/16 03:39 - Home Medications Home Medications: Ambulatory Orders Acetaminophen Oral Solution [Tylenol Oral Solution -] 650 mg GT Q6H PRN Ceftriaxone Na/Dextrose,Iso [Ceftriaxone 1 gm-D5w Bag] 1 gm IV DAILY 12/08/16 Doxazosin Mesylate [Cardura] 2 mg GT DAILY 12/08/16 Escitalopram Oxalate [Lexapro Oral Solution -] 10 mg GT DAILY 12/08/16 FENTANYL 12mcg PATCH [DURAGESIC 12mcg PATCH -] 1 each TD Q72H 12/08/16 Ferrous Sulfate *Liquid* [Feosol] 330 mg GT TID 12/08/16 Heparin - 5,000 units IJ BID 12/08/16 Insulin Aspart [Novolog] 0 unit SQ TID 12/08/16 Insulin Detemir [Levemir Flextouch] 18 unit SQ HS 12/08/16 Insulin Detemir [Levemir Flextouch] 25 unit SQ DAILY 12/08/16 Lactobacillus Acidophilus [Acidophilus] 1 each GT DAILY 12/08/16 Naph,Mb-Db/K pH,Mbdb [PHOS-NaK PACKET -] 1 packet GT DAILY 12/08/16 Ranitidine HCl 150 mg GT DAILY 12/08/16 Vit C/Ascorbate Calcium,Sodium [Vitamin C 500 mg/15 ml Liquid] 500 mg GT Q8H Vitamin B Comp W-C [Nephro-Rafael -] 1 tablet GT DAILY 12/08/16 Review of Systems Unable to obtain ROS, reason: dementia - Review of Systems Constitutional: reports: Lethargy, Weakness Eyes: reports: Other Physical Exam Vital Signs: Vital Signs Temperature 98.5 F 12/08/16 22:20 Pulse Rate 89 12/08/16 22:20 Respiratory Rate 20 12/08/16 22:20 Blood Pressure 92/46 12/08/16 22:20 O2 Sat by Pulse Oximetry (%) 97 12/08/16 21:00 Constitutional: Yes: Thin Eyes: Yes: EOM Intact HENT: Yes: Normocephalic Neck: Yes: Trachea Midline Cardiovascular: Yes: Regular Rate and Rhythm Respiratory: Yes: CTA Bilaterally Gastrointestinal: Yes: Normal Bowel Sounds ...Rectal Exam: Yes: Deferred Renal/: Yes: WNL Breast(s): Yes: WNL Musculoskeletal: Yes: Back Pain, Joint Swelling, Muscle Weakness Edema: No Integumentary: Yes: Skin Tear Wound/Incision: Yes: Draining Neurological: Yes: Lethargy Problem List - Problems (1) Acute kidney injury superimposed on CKD Code(s): N17.9 - ACUTE KIDNEY FAILURE, UNSPECIFIED N18.9 - CHRONIC KIDNEY DISEASE, UNSPECIFIED (2) C. difficile diarrhea Code(s): A04.7 - ENTEROCOLITIS DUE TO CLOSTRIDIUM DIFFICILE (3) Sacral decubitus ulcer, stage III Code(s): L89.153 - PRESSURE ULCER OF SACRAL REGION, STAGE 3 (4) Severe sepsis Code(s): A41.9 - SEPSIS, UNSPECIFIED ORGANISM R65.20 - SEVERE SEPSIS WITHOUT SEPTIC SHOCK (5) (HFpEF) heart failure with preserved ejection fraction Code(s): I50.9 - HEART FAILURE, UNSPECIFIED (6) Diabetes 1.5, managed as type 2 Code(s): E10.9 - TYPE 1 DIABETES MELLITUS WITHOUT COMPLICATIONS Assessment/Plan Current Active Problems Acute kidney injury superimposed on CKD (Acute) Anemia (Acute) C. difficile diarrhea (Acute) Fever (Acute) Hyperkalemia (Acute) Sacral decubitus ulcer, stage III (Acute) Severe sepsis (Acute) diabetes mellitus hyperglycemia stress illness wound infection decubitis Abnormal Lab Results 12/08/16 12/08/16 12/08/16 02:00 02:00 02:00 WBC 12.0 H D RBC 2.72 L Hgb 8.3 L Hct 26.2 L MCV 96.3 H MCHC 31.8 L RDW 21.5 H D POC VBG pCO2 Mixed VBG HCO3 Sodium 157 H D Chloride 119 H D BUN 104 H D Creatinine 1.3 H D Random Glucose 255 H D Lactic Acid 2.1 H* Calcium 8.3 L Troponin I 0.11 H Albumin 1.8 L Urine Protein Urine Glucose (UA) Urine Blood Antibody Screen Direct Antiglob Test 12/08/16 12/08/16 12/08/16 02:25 02:40 03:36 WBC RBC Hgb Hct MCV MCHC RDW POC VBG pCO2 54.7 H Mixed VBG HCO3 31.8 H Sodium Chloride BUN Creatinine Random Glucose Lactic Acid Calcium Troponin I 0.09 H Albumin Urine Protein 2+ H Urine Glucose (UA) 1+ H Urine Blood 1+ H Antibody Screen Direct Antiglob Test 12/08/16 12/08/16 10:45 12:29 WBC RBC Hgb Hct MCV MCHC RDW POC VBG pCO2 Mixed VBG HCO3 Sodium Chloride BUN Creatinine Random Glucose Lactic Acid Calcium Troponin I Albumin Urine Protein Urine Glucose (UA) Urine Blood Antibody Screen Positive H Direct Antiglob Test Positive H Laboratory Results - last 24 hr 12/08/16 12/08/16 12/08/16 02:00 02:00 02:00 WBC 12.0 H D RBC 2.72 L Hgb 8.3 L Hct 26.2 L MCV 96.3 H MCH 30.6 MCHC 31.8 L RDW 21.5 H D Plt Count 257 MPV 10.3 D Neutrophils % 61.7 Lymphocytes % 32.7 Monocytes % 4.0 Eosinophils % 0.5 D Basophils % 1.1 D Hypochromia Rare Platelet Estimate Adequate Anisocytosis 2+ Microcytosis 1+ Rouleaux 1+ INR 1.04 PTT (Actin FS) 29.1 VBG pH POC VBG pCO2 POC VBG pO2 Mixed VBG HCO3 Sodium 157 H D Potassium 4.1 Chloride 119 H D Carbon Dioxide 29 Anion Gap 9 BUN 104 H D Creatinine 1.3 H D Creat Clearance w eGFR 39.41 POC Glucometer Random Glucose 255 H D Lactic Acid Calcium 8.3 L Total Bilirubin 0.2 D AST 20 D ALT 19 D Alkaline Phosphatase 95 Creatine Kinase 61 Troponin I 0.11 H Total Protein 7.4 Albumin 1.8 L Urine Color Urine Appearance Urine pH Ur Specific [place] Urine Protein Urine Glucose (UA) Urine Ketones Urine Blood Urine Nitrite Urine Bilirubin Urine Urobilinogen Urine RBC Urine WBC Ur Epithelial Cells Urine Bacteria Hyaline Casts Urine Mucus Urine Yeast Blood Type Antibody Screen Antibody Identification Direct Antiglob Test 12/08/16 12/08/16 12/08/16 02:00 02:25 02:40 WBC RBC Hgb Hct MCV MCH MCHC RDW Plt Count MPV Neutrophils % Lymphocytes % Monocytes % Eosinophils % Basophils % Hypochromia Platelet Estimate Anisocytosis Microcytosis Rouleaux INR PTT (Actin FS) VBG pH 7.38 POC VBG pCO2 54.7 H POC VBG pO2 46.1 D Mixed VBG HCO3 31.8 H Sodium Potassium Chloride Carbon Dioxide Anion Gap BUN Creatinine Creat Clearance w eGFR POC Glucometer Random Glucose Lactic Acid 2.1 H* Calcium Total Bilirubin AST ALT Alkaline Phosphatase Creatine Kinase Troponin I Total Protein Albumin Urine Color Michelle Urine Appearance Turbid Urine pH 5.0 Ur Specific [place] 1.025 Urine Protein 2+ H Urine Glucose (UA) 1+ H Urine Ketones Negative Urine Blood 1+ H Urine Nitrite Negative Urine Bilirubin Negative Urine Urobilinogen Negative Urine RBC 88 Urine WBC 337 Ur Epithelial Cells Moderate Urine Bacteria Moderate Hyaline Casts 57 Urine Mucus Rare Urine Yeast Many Blood Type Antibody Screen Antibody Identification Direct Antiglob Test 12/08/16 12/08/16 12/08/16 03:15 03:36 07:12 WBC RBC Hgb Hct MCV MCH MCHC RDW Plt Count MPV Neutrophils % Lymphocytes % Monocytes % Eosinophils % Basophils % Hypochromia Platelet Estimate Anisocytosis Microcytosis Rouleaux INR PTT (Actin FS) VBG pH POC VBG pCO2 POC VBG pO2 Mixed VBG HCO3 Sodium Potassium Chloride Carbon Dioxide Anion Gap BUN Creatinine Creat Clearance w eGFR POC Glucometer [phone] Random Glucose Lactic Acid 1.6 Calcium Total Bilirubin AST ALT Alkaline Phosphatase Creatine Kinase 43 Troponin I 0.09 H Total Protein Albumin Urine Color Urine Appearance Urine pH Ur Specific [place] Urine Protein Urine Glucose (UA) Urine Ketones Urine Blood Urine Nitrite Urine Bilirubin Urine Urobilinogen Urine RBC Urine WBC Ur Epithelial Cells Urine Bacteria Hyaline Casts Urine Mucus Urine Yeast Blood Type Antibody Screen Antibody Identification Direct Antiglob Test 12/08/16 12/08/16 12/08/16 10:45 11:27 12:29 WBC RBC Hgb Hct MCV MCH MCHC RDW Plt Count MPV Neutrophils % Lymphocytes % Monocytes % Eosinophils % Basophils % Hypochromia Platelet Estimate Anisocytosis Microcytosis Rouleaux INR PTT (Actin FS) VBG pH POC VBG pCO2 POC VBG pO2 Mixed VBG HCO3 Sodium Potassium Chloride Carbon Dioxide Anion Gap BUN Creatinine Creat Clearance w eGFR POC Glucometer [phone] Random Glucose Lactic Acid Calcium Total Bilirubin AST ALT Alkaline Phosphatase Creatine Kinase Troponin I Total Protein Albumin Urine Color Urine Appearance Urine pH Ur Specific [place] Urine Protein Urine Glucose (UA) Urine Ketones Urine Blood Urine Nitrite Urine Bilirubin Urine Urobilinogen Urine RBC Urine WBC Ur Epithelial Cells Urine Bacteria Hyaline Casts Urine Mucus Urine Yeast Blood Type O POSITIVE Antibody Screen Positive H Antibody Identification WARM AUTOIMMUNE HEMO ANEMIA Direct Antiglob Test Positive H 12/08/16 21:26 WBC RBC Hgb Hct MCV MCH MCHC RDW Plt Count MPV Neutrophils % Lymphocytes % Monocytes % Eosinophils % Basophils % Hypochromia Platelet Estimate Anisocytosis Microcytosis Rouleaux INR PTT (Actin FS) VBG pH POC VBG pCO2 POC VBG pO2 Mixed VBG HCO3 Sodium Potassium Chloride Carbon Dioxide Anion Gap BUN Creatinine Creat Clearance w eGFR POC Glucometer 172 Random Glucose Lactic Acid Calcium Total Bilirubin AST ALT Alkaline Phosphatase Creatine Kinase Troponin I Total Protein Albumin Urine Color Urine Appearance Urine pH Ur Specific [place] Urine Protein Urine Glucose (UA) Urine Ketones Urine Blood Urine Nitrite Urine Bilirubin Urine Urobilinogen Urine RBC Urine WBC Ur Epithelial Cells Urine Bacteria Hyaline Casts Urine Mucus Urine Yeast Blood Type Antibody Screen Antibody Identification Direct Antiglob Test plan: bgm qid novolog insulin coverage Current Medications Generic Name Dose Route Start Last Admin Trade Name Freq PRN Reason Stop Dose Admin Acetaminophen 650 mg 12/08/16 02:41 12/08/16 06:46 Tylenol Oral Solution - GT 650 mg Q6H PRN Administration pain/fever Amino Acids 30 ml 12/08/16 08:00 12/08/16 09:34 Prosource No Carb Liquid Pkt GT 30 ml BID@0800,1730 LARRY Administration Ascorbic Acid 500 mg 12/08/16 06:00 12/08/16 21:47 Vitamin C Oral Solution - GT 500 mg TID LARRY Administration Escitalopram Oxalate 10 mg 12/08/16 10:00 12/08/16 09:35 Lexapro Oral Solution - GT 10 mg DAILY [facility]ARR[facility] Administration Heparin Sodium (Porcine) 5,000 unit 12/08/16 10:00 12/08/16 21:31 Heparin - SQ 5,000 unit BID LARRY Administration Pantoprazole Sodium 40 mg/ 100 mls @ 200 mls/hr 12/08/16 10:00 12/08/16 09:35 Sodium Chloride IVPB 200 mls/hr DAILY LARRY Administration Tigecycline 50 mg/ Dextrose 100 mls @ 100 mls/hr 12/08/16 22:00 12/08/16 21:47 IVPB 100 mls/hr BID LARRY Administration Protocol Metronidazole 100 mls @ 100 mls/hr 12/08/16 12:30 12/08/16 12:51 Flagyl 500mg Premixed Ivpb - IVPB 100 mls/hr Q8H-IV [facility]ARRY Administration Sodium Chloride 1,000 mls @ 100 mls/hr 12/08/16 22:00 12/08/16 21:30 Normal Saline - IV 100 mls/hr ASDIR LARRY Administration Insulin Aspart 1 vial 12/08/16 07:00 12/08/16 21:27 Novolog Vial Sliding Scale - SQ Not Given ACHS [facility] Protocol Insulin Detemir 15 units 12/08/16 22:00 12/08/16 21:31 Levemir Vial SQ 15 units HS LARRY Administration Laboratory Tests 06/30/16 11/03/16 11/03/16 23:44 06:02 11:01 POC Glucometer 349 312 Hemoglobin A1c % 9.5 H D 11/03/16 11/03/16 17:31 21:33 POC Glucometer 376 342 Hemoglobin A1c % ck hb a1c levemir 10 unit am if sugar over 150mg/dl
[2016-12-09] MEDS: METRONIDAZOLE 500 MG PREMIXED 100 ML IVPB SCH (01:03)
[2016-12-09] MEDS: ASCORBIC ACID 500 MG/5 ML UNIT DOSE CUP GT SCH ×3 (05:49→21:43)
[2016-12-09] MEDS: SODIUM CHLORIDE 1,000 ML IV SCH (06:01)
[2016-12-09] MEDS ORDERED: INSULIN (NOVOLOG) ASPART 100 UNITS/ML 10ML VIAL ONE ×2 (06:12→21:33)
[2016-12-09] MEDS: INSULIN SLIDING SCALE (NOVOLOG) 1 VIAL SQ SCH ×4 (06:16→21:44)
[2016-12-09] MEDS: INSULIN DETEMIR 100 UNITS/ML MDV SQ SCH ×2 (06:16→21:44)
[2016-12-09 08:52] LABS: BASOPHIL 0.4 % (0-2.0); EOSINOPHIL 1.3 % (0-4.5); MCH 30.6 pg (25.7-33.7); MCHC 31.7 g/dl (32.0-36.0); MEAN CELL VOLUME 96.6 fl (80-96); NEUTROPHILS 64.3 % (42.8-82.8); PLATELET COUNT 240 K/MM3 (134-434); RDW 21.4 % (11.6-15.6); WHITE BLOOD COUNT 8.9 K/mm3 (4.0-10.0)
[2016-12-09] MEDS: AMINO ACIDS/PROTEIN HYDROLYS 30 ML LIQUID.PKT GT SCH ×3 (09:03→17:24)
--- NOTE | 2016-12-09 09:19 | PN ---
Progress Note (short form) - Note Progress Note: ID Dose of Dapto and gentamicin Tigecycline & metronidazole Selected Entries 12/09/16 08:00 Temperature 98.8 F Pulse Rate 85 Respiratory 20 Rate Blood Pressure 107/58 Microbiology 12/08/16 12:30 Stool Clostridium difficile Antigen (JAKY) - Final 12/08/16 12:30 Stool Clostridium difficile Toxin Assay - Final 12/08/16 02:05 Blood - Peripheral Venous Blood Culture - Preliminary NO GROWTH OBTAINED AFTER 24 HOURS, INCUBATION TO CONTINUE FOR 4 DAYS. 12/08/16 02:00 Blood - Peripheral Venous Blood Culture - Preliminary NO GROWTH OBTAINED AFTER 24 HOURS, INCUBATION TO CONTINUE FOR 4 DAYS. Laboratory Tests 12/08/16 12/08/16 12/08/16 02:00 02:00 02:00 WBC 12.0 H D Hgb Hct Plt Count BUN 104 H D Lactic Acid 2.1 H* 12/09/16 08:00 WBC 8.9 Hgb 8.7 L Hct 27.5 L Plt Count 240 BUN Lactic Acid Assessment Fever resolved C diff toxin neg.> urinary source ? Plan Continue Tigecycline Stop metronidazole Cassandra Galaviz MD
[2016-12-09 09:25] LABS: CALCIUM 7.6 mg/dL (8.5-10.1)
[2016-12-09 09:32] LABS: ALBUMIN 1.6 g/dl (3.4-5.0); ALK PHOS 74 U/L (45-117); ANION GAP 8 (8-16); BILIRUBIN,TOTAL 0.2 mg/dL (0.2-1.0); CO2 25 mmol/L (21-32); CREATININE 0.9 mg/dL (0.55-1.02); GLUCOSE,RANDOM 171 mg/dL (74-106); SGPT/ALT 17 U/L (12-78); TOT PROT 6.6 g/dl (6.4-8.2)
[2016-12-09 09:35] LABS: SGOT/AST 20 U/L (15-37)
[2016-12-09] MEDS: PANTOPRAZOLE SODIUM 40 MG in SODIUM CHLORIDE 100 ML IVPB SCH (09:36)
[2016-12-09] MEDS: TIGECYCLINE 50 MG in DEXTROSE 5%-WATER - 100 ML IVPB SCH ×2 (09:37→21:43)
[2016-12-09] MEDS: HEPARIN NA (PORCINE) 5,000 UNITS/ML 1ML VIAL SQ SCH ×2 (09:38→21:44)
--- NOTE | 2016-12-09 10:01 | PN ---
Progress Note (short form) - Note Progress Note: Awake but non-verbal. NAD on NC O2. Seen by ID and ABX optimized. Intake & Output 12/06/16 12/07/16 12/08/16 12/09/16 23:59 23:59 23:59 23:59 Intake Total 1530 2050 Output Total 800 300 Balance 730 1750 Weight 99 lb 3 oz 102 lb 6 oz Last Vital Signs Temp Pulse Resp BP Pulse Ox 98.8 F 85 20 107/58 97 12/09/16 08:00 12/09/16 08:00 12/09/16 08:00 12/09/16 08:00 12/08/16 21:00 Active Medications Acetaminophen (Tylenol Oral Solution -) 650 mg GT Q6H PRN PRN Reason: pain/fever Last Admin: 12/08/16 06:46 Dose: 650 mg Amino Acids (Prosource No Carb Liquid Pkt) 30 ml GT BID@0800,1730 [facility] Last Admin: 12/09/16 09:03 Dose: 30 ml Ascorbic Acid (Vitamin C Oral Solution -) 500 mg GT TID [facility] Last Admin: 12/09/16 05:49 Dose: 500 mg Escitalopram Oxalate (Lexapro Oral Solution -) 10 mg GT DAILY [facility] Last Admin: 12/08/16 09:35 Dose: 10 mg Heparin Sodium (Porcine) (Heparin -) 5,000 unit SQ BID [facility] Last Admin: 12/09/16 09:38 Dose: 5,000 unit Pantoprazole Sodium 40 mg/ (Sodium Chloride) 100 mls @ 200 mls/hr IVPB DAILY [facility] Last Admin: 12/09/16 09:36 Dose: 200 mls/hr Tigecycline 50 mg/ Dextrose 100 mls @ 100 mls/hr IVPB BID [facility] PRN Reason: Protocol Last Admin: 12/09/16 09:37 Dose: 100 mls/hr Sodium Chloride (Normal Saline -) 1,000 mls @ 100 mls/hr IV ASDIR [facility] Last Admin: 12/09/16 06:01 Dose: 100 mls/hr Insulin Aspart (Novolog Vial Sliding Scale -) 1 vial SQ ACHS [facility] PRN Reason: Protocol Last Admin: 12/09/16 06:16 Dose: 2 unit Insulin Detemir (Levemir Vial) 15 units SQ HS [facility] Last Admin: 12/08/16 21:31 Dose: 15 units Insulin Detemir (Levemir Vial) 10 units SQ AM [facility] Last Admin: 12/09/16 06:16 Dose: 10 units Constitutional: Yes: Awake, NAD Eyes: Yes: Conjunctiva Clear, EOM Intact HENT: Yes: Atraumatic, Normocephalic Neck: Yes: Supple, Trachea Midline Cardiovascular: Yes: Regular Rate and Rhythm Respiratory: Yes: Diminished at the bases Gastrointestinal: Yes: Normal Bowel Sounds, Soft. No: Tenderness Extremities: Yes: Other (bilateral BKA) Edema: No Laboratory Results - last 24 hr 12/08/16 12/08/16 12/08/16 02:00 02:25 10:45 WBC RBC Hgb Hct MCV MCH MCHC RDW Plt Count MPV Neutrophils % Lymphocytes % Monocytes % Eosinophils % Basophils % VBG pH 7.38 POC VBG pCO2 54.7 H POC VBG pO2 46.1 D Mixed VBG HCO3 31.8 H Sodium Potassium Chloride Carbon Dioxide Anion Gap BUN Creatinine Creat Clearance w eGFR POC Glucometer Random Glucose Lactic Acid 2.1 H* Calcium Total Bilirubin AST ALT Alkaline Phosphatase Total Protein Albumin Gentamicin Trough Blood Type O POSITIVE Antibody Screen Positive H Antibody Identification WARM AUTOIMMUNE HEMO ANEMIA Direct Antiglob Test 12/08/16 12/08/16 12/08/16 11:27 12:29 21:26 WBC RBC Hgb Hct MCV MCH MCHC RDW Plt Count MPV Neutrophils % Lymphocytes % Monocytes % Eosinophils % Basophils % VBG pH POC VBG pCO2 POC VBG pO2 Mixed VBG HCO3 Sodium Potassium Chloride Carbon Dioxide Anion Gap BUN Creatinine Creat Clearance w eGFR POC Glucometer 204.48865 172 Random Glucose Lactic Acid Calcium Total Bilirubin AST ALT Alkaline Phosphatase Total Protein Albumin Gentamicin Trough Blood Type Antibody Screen Antibody Identification Direct Antiglob Test Positive H 12/09/16 12/09/16 12/09/16 05:47 08:00 08:00 WBC 8.9 RBC 2.85 L Hgb 8.7 L Hct 27.5 L MCV 96.6 H MCH 30.6 MCHC 31.7 L RDW 21.4 H Plt Count 240 MPV 10.0 Neutrophils % 64.3 Lymphocytes % 30.3 Monocytes % 3.7 L Eosinophils % 1.3 D Basophils % 0.4 VBG pH POC VBG pCO2 POC VBG pO2 Mixed VBG HCO3 Sodium Potassium Chloride Carbon Dioxide Anion Gap BUN Creatinine Creat Clearance w eGFR POC Glucometer 210 Random Glucose Lactic Acid Calcium Total Bilirubin AST ALT Alkaline Phosphatase Total Protein Albumin Gentamicin Trough 2.0 D Blood Type Antibody Screen Antibody Identification Direct Antiglob Test 12/09/16 08:00 WBC RBC Hgb Hct MCV MCH MCHC RDW Plt Count MPV Neutrophils % Lymphocytes % Monocytes % Eosinophils % Basophils % VBG pH POC VBG pCO2 POC VBG pO2 Mixed VBG HCO3 Sodium 157 H Potassium 4.4 Chloride 124 H Carbon Dioxide 25 Anion Gap 8 BUN 101 H Creatinine 0.9 D Creat Clearance w eGFR > 60 POC Glucometer Random Glucose 171 H D Lactic Acid Calcium 7.6 L Total Bilirubin 0.2 AST 20 ALT 17 Alkaline Phosphatase 74 D Total Protein 6.6 Albumin 1.6 L Gentamicin Trough Blood Type Antibody Screen Antibody Identification Direct Antiglob Test Assessment/Plan Sacral Decubitus Ulcer Infection UTI Severe Sepsis Lactic Acidosis LV Diastolic Dysfunction Mitral Regurgitation h/o Bilateral BKA HTN Dementia - IV antibiotics per ID - f/u cultures - local wound care - IVF - aspiration precautions - VTE prophylaxis Dr Galeana
[2016-12-09] MEDS: ESCITALOPRAM OXALATE 5 MG/5 ML GT SCH (10:10)
--- NOTE | 2016-12-09 11:41 | PN ---
Progress Note, Physician - Current Medication List Current Medications: Active Medications Acetaminophen (Tylenol Oral Solution -) 650 mg GT Q6H PRN PRN Reason: pain/fever Last Admin: 12/08/16 06:46 Dose: 650 mg Amino Acids (Prosource No Carb Liquid Pkt) 30 ml GT BID@0800,1730 [facility] Last Admin: 12/09/16 09:03 Dose: 30 ml Ascorbic Acid (Vitamin C Oral Solution -) 500 mg GT TID [facility] Last Admin: 12/09/16 05:49 Dose: 500 mg Escitalopram Oxalate (Lexapro Oral Solution -) 10 mg GT DAILY [facility] Last Admin: 12/09/16 10:10 Dose: 10 mg Heparin Sodium (Porcine) (Heparin -) 5,000 unit SQ BID [facility] Last Admin: 12/09/16 09:38 Dose: 5,000 unit Pantoprazole Sodium 40 mg/ (Sodium Chloride) 100 mls @ 200 mls/hr IVPB DAILY [facility] Last Admin: 12/09/16 09:36 Dose: 200 mls/hr Tigecycline 50 mg/ Dextrose 100 mls @ 100 mls/hr IVPB BID [facility] PRN Reason: Protocol Last Admin: 12/09/16 09:37 Dose: 100 mls/hr Insulin Aspart (Novolog Vial Sliding Scale -) 1 vial SQ ACHS [facility] PRN Reason: Protocol Last Admin: 12/09/16 06:16 Dose: 2 unit Insulin Detemir (Levemir Vial) 15 units SQ HS [facility] Last Admin: 12/08/16 21:31 Dose: 15 units Insulin Detemir (Levemir Vial) 10 units SQ AM [facility] Last Admin: 12/09/16 06:16 Dose: 10 units - Objective Vital Signs: Vital Signs Temperature 98.8 F 12/09/16 08:00 Pulse Rate 85 12/09/16 08:00 Respiratory Rate 20 12/09/16 08:00 Blood Pressure 107/58 12/09/16 08:00 O2 Sat by Pulse Oximetry (%) 97 12/08/16 21:00 Labs: CBC, BMP 12/09/16 08:00 12/09/16 08:00 INR, PTT INR 1.04 (0.82-1.09) 12/08/16 02:00
--- NOTE | 2016-12-09 12:07 | PN ---
Progress Note, Physician Chief Complaint: patient seen and examined in bed not talking on iv abx eyes open looks at me when i talk low BP noted - Current Medication List Current Medications: Active Medications Acetaminophen (Tylenol Oral Solution -) 650 mg GT Q6H PRN PRN Reason: pain/fever Last Admin: 12/08/16 06:46 Dose: 650 mg Amino Acids (Prosource No Carb Liquid Pkt) 30 ml GT BID@0800,1730 [facility] [place] Last Admin: 12/09/16 09:03 Dose: 30 ml Ascorbic Acid (Vitamin C Oral Solution -) 500 mg GT TID [facility] [place] Last Admin: 12/09/16 05:49 Dose: 500 mg Escitalopram Oxalate (Lexapro Oral Solution -) 10 mg GT DAILY [facility] [place] Last Admin: 12/09/16 10:10 Dose: 10 mg Heparin Sodium (Porcine) (Heparin -) 5,000 unit SQ BID [facility] [place] Last Admin: 12/09/16 09:38 Dose: 5,000 unit Pantoprazole Sodium 40 mg/ (Sodium Chloride) 100 mls @ 200 mls/hr IVPB DAILY [facility] [place] Last Admin: 12/09/16 09:36 Dose: 200 mls/hr Tigecycline 50 mg/ Dextrose 100 mls @ 100 mls/hr IVPB BID [facility] [place] PRN Reason: Protocol Last Admin: 12/09/16 09:37 Dose: 100 mls/hr Insulin Aspart (Novolog Vial Sliding Scale -) 1 vial SQ ACHS [facility] [place] PRN Reason: Protocol Last Admin: 12/09/16 06:16 Dose: 2 unit Insulin Detemir (Levemir Vial) 15 units SQ HS [facility] [place] Last Admin: 12/08/16 21:31 Dose: 15 units Insulin Detemir (Levemir Vial) 10 units SQ AM [facility] [place] Last Admin: 12/09/16 06:16 Dose: 10 units - Objective Vital Signs: Vital Signs Temperature 98.8 F 12/09/16 08:00 Pulse Rate 85 12/09/16 08:00 Respiratory Rate 20 12/09/16 08:00 Blood Pressure 107/58 12/09/16 08:00 O2 Sat by Pulse Oximetry (%) 97 12/09/16 09:00 Constitutional: Yes: Calm, Thin Neck: Yes: Trachea Midline Cardiovascular: Yes: Regular Rate and Rhythm, Murmur, S1, S2 Respiratory: Yes: CTA Bilaterally Gastrointestinal: Yes: Normal Bowel Sounds, Soft, Other (g tube) Genitourinary: Yes: [place] Present Extremities: Yes: Other (B/l BKA) Labs: CBC, BMP 12/09/16 08:00 12/09/16 08:00 INR, PTT INR 1.04 (0.82-1.09) 12/08/16 02:00 Problem List - Problems (1) Acute kidney injury superimposed on CKD Assessment/Plan: renal eval conitnue iv fluids f0r now cr is normal today but elevated BUN Code(s): N17.9 - ACUTE KIDNEY FAILURE, UNSPECIFIED N18.9 - CHRONIC KIDNEY DISEASE, UNSPECIFIED (2) Anemia Assessment/Plan: iron studies stool occult Code(s): D64.9 - ANEMIA, UNSPECIFIED Qualifiers: Anemia type: iron deficiency Iron deficiency anemia type: unspecified iron deficiency Qualified Code(s): D50.9 - Iron deficiency anemia, unspecified (3) Fever Assessment/Plan: cultures pending broad abx coverage contact isolation ID on board c diff negative WBC count now normal today Code(s): R50.9 - FEVER, UNSPECIFIED (4) Diabetes 1.5, managed as type 2 Assessment/Plan: on insulin bgm noted hga1c ordered Code(s): E10.9 - TYPE 1 DIABETES MELLITUS WITHOUT COMPLICATIONS
[2016-12-09] MEDS ORDERED: DEXTROSE 5%-WATER - 1,000 ML IV SCH ×3 (12:15→14:30)
[2016-12-09] MEDS ORDERED: SODIUM CHLORIDE 1,000 ML IV SCH (12:15)
--- NOTE | 2016-12-09 13:25 | CONSULT ---
Consultation: REQUESTING PROVIDER: Dr. Eid CONSULT: NEPHROLOGY CONSULT REQUEST: We have been asked to medically evaluate this patient for Hypernatremia. HISTORY OF PRESENT ILLNESS: 81 yr old bedbound nonverbal woman referred from [facility] due to fever, hypotension and lethargy. Was hypotensive in the ED, improved with IVF resuscitation. Fever resolved. wound vac removed. At baseline pt is alert, awake, makes eye contact, and attempts to speak in [place]. chart reviewed for more information. 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 PHYSICAL EXAMINATION Vital Signs - 24 hr 12/08/16 12/08/16 12/08/16 14:40 15:48 16:10 Temperature 99.6 F 99.8 F H 99.4 F Pulse Rate Pulse Rate [ 78 74 75 Right] Respiratory 14 14 14 Rate Blood Pressure Blood Pressure 98/56 115/63 103/51 [Left Arm] O2 Sat by Pulse 2 L 100 98 Oximetry (%) 12/08/16 12/08/16 12/08/16 17:22 17:25 18:00 Temperature 99.8 F H 98.3 F Pulse Rate 87 Pulse Rate [ 81 84 Right] Respiratory 14 14 18 Rate Blood Pressure 84/37 Blood Pressure 103/53 103/66 [Left Arm] O2 Sat by Pulse 100 97 97 Oximetry (%) 12/08/16 12/08/16 12/08/16 18:51 21:00 22:20 Temperature 98.3 F 98.5 F Pulse Rate 87 89 Pulse Rate [ Right] Respiratory 18 18 20 Rate Blood Pressure 84/37 92/46 Blood Pressure [Left Arm] O2 Sat by Pulse 97 Oximetry (%) 12/09/16 12/09/16 12/09/16 02:00 06:00 08:00 Temperature 99.6 F 99.6 F 98.8 F Pulse Rate 88 86 85 Pulse Rate [ Right] Respiratory 20 20 20 Rate Blood Pressure 92/51 104/51 107/58 Blood Pressure [Left Arm] O2 Sat by Pulse Oximetry (%) 12/09/16 09:00 Temperature Pulse Rate Pulse Rate [ Right] Respiratory Rate Blood Pressure Blood Pressure [Left Arm] O2 Sat by Pulse 97 Oximetry (%) GENERAL: Awake, in no acute distress. nonverbal, does not follow-commands HEAD: Normal with no signs of trauma. EYES: pinpoint pupils nonreactive to light, freely moves eyes in all directions , sclera anicteric, conjunctiva clear. No lid lag. EARS, NOSE, THROAT: unable to open mouth for oral exam. lips are dry LUNGS: quiet at bases, poor air entry, No wheezes, and no crackles. No accessory muscle use. HEART: Regular rate and rhythm, normal S1 and S2 with +systolic murmur, no rub or gallop. ABDOMEN: Soft, not distended, normoactive bowel sounds, MUSCULOSKELETAL: b/l bka, well healed UPPER EXTREMITIES: 2+ radial pulses, warm, well-perfused. No cyanosis. No peripheral edema. LOWER EXTREMITIES: warm, well-perfused. No peripheral edema, no sacral edema SKIN: Warm, dry, stage 4 decubitus ulcer with necrotic edges, foul-smelling HAWKINS in place with yellow urine, lots of white sediment, no hematuria Laboratory Results - last 24 hr 12/08/16 12/09/16 12/09/16 21:26 05:47 08:00 WBC RBC Hgb Hct MCV MCH MCHC RDW Plt Count MPV Neutrophils % Lymphocytes % Monocytes % Eosinophils % Basophils % Sodium Potassium Chloride Carbon Dioxide Anion Gap BUN Creatinine Creat Clearance w eGFR POC Glucometer 172 210 Random Glucose Calcium Total Bilirubin AST ALT Alkaline Phosphatase Total Protein Albumin Gentamicin Trough 2.0 D 12/09/16 12/09/16 12/09/16 08:00 08:00 11:19 WBC 8.9 RBC 2.85 L Hgb 8.7 L Hct 27.5 L MCV 96.6 H MCH 30.6 MCHC 31.7 L RDW 21.4 H Plt Count 240 MPV 10.0 Neutrophils % 64.3 Lymphocytes % 30.3 Monocytes % 3.7 L Eosinophils % 1.3 D Basophils % 0.4 Sodium 157 H Potassium 4.4 Chloride 124 H Carbon Dioxide 25 Anion Gap 8 BUN 101 H Creatinine 0.9 D Creat Clearance w eGFR > 60 POC Glucometer 127 Random Glucose 171 H D Calcium 7.6 L Total Bilirubin 0.2 AST 20 ALT 17 Alkaline Phosphatase 74 D Total Protein 6.6 Albumin 1.6 L Gentamicin Trough Active Medications Generic Name Dose Route Start Last Admin Trade Name Freq PRN Reason Stop Dose Admin Acetaminophen 650 mg 12/08/16 02:41 12/08/16 06:46 Tylenol Oral Solution - GT 650 mg Q6H PRN Administration pain/fever Amino Acids 30 ml 12/08/16 08:00 12/09/16 09:03 Prosource No Carb Liquid Pkt GT 30 ml BID@0800,1730 LARR[facility] Administration Ascorbic Acid 500 mg 12/08/16 06:00 12/09/16 05:49 Vitamin C Oral Solution - GT 500 mg TID LARRY Administration Escitalopram Oxalate 10 mg 12/08/16 10:00 12/09/16 10:10 Lexapro Oral Solution - GT 10 mg DAILY [facility] Administration Heparin Sodium (Porcine) 5,000 unit 12/08/16 10:00 12/09/16 09:38 Heparin - SQ 5,000 unit BID LARR[facility] Administration Pantoprazole Sodium 40 mg/ 100 mls @ 200 mls/hr 12/08/16 10:00 12/09/16 09:36 Sodium Chloride IVPB 200 mls/hr DAILY LARRY Administration Tigecycline 50 mg/ Dextrose 100 mls @ 100 mls/hr 12/08/16 22:00 12/09/16 09:37 IVPB 100 mls/hr BID [facility] Administration Protocol Dextrose 1,000 mls @ 42 mls/hr 12/09/16 12:45 D5w - IV [id number] [facility] Insulin Aspart 1 vial 12/08/16 07:00 12/09/16 12:09 Novolog Vial Sliding Scale - SQ Not Given ACHS [facility] Protocol Insulin Detemir 15 units 12/08/16 22:00 12/08/16 21:31 Levemir Vial SQ 15 units HS [facility] Administration Insulin Detemir 10 units 12/09/16 07:00 12/09/16 06:16 Levemir Vial SQ 10 units AM LARRY Administration ASSESSMENT/PLAN: 81 yr old nonverbal bedbound woman with multiple co-morbidities admitted for severe sepsis from UTI or decubiti found to be hypernatremic. #Hypernatremia - likely due to inability to take water and in setting of sepsis - calculated free water deficit 3.2L - 1/2 NS @ 100cc/hr for 24 hours for goal rate of decreasing sodium by 8 (149) - increase peg free water from 25 to 45cc with feeds #GIANNI -elevated BUN, likely pre-renal volume depletion -trend BMP daily, continue 1/2NS for hypernatremia correction and allow for volume expansion given hypotension in setting of sepsis. D5 discontinued - monitor I&O Dispo: We will continue to follow the patient. Thank you for this consultative opportunity. Visit type - Emergency Visit Emergency Visit: No - New Patient This patient is new to me today: Yes Date on this admission: 12/09/16 - Critical Care Critical Care patient: No
[2016-12-09] MEDS ORDERED: SODIUM CHLORIDE 0.45% 1,000 ML IV SCH (15:30)
--- NOTE | 2016-12-09 15:38 | CONSULT ---
Consult - text type - Consultation Consultation Note: Renal Attending Note This is a 81 year old woman well known to our service with hx of dementia, PVD s /p b/l BKA, Hypertension, HLD, GERD, Sacral decubitis ulcers who presented from [place] with AMS and found to be be hypernatremia and with GIANNI. PMhx: As above Allergies: NKDA Family Hx: NC Social Hx: Unknown ROS: unable to obtain b/c of clincal status Vital Signs Temperature 98.8 F 12/09/16 08:00 Pulse Rate 85 12/09/16 08:00 Respiratory Rate 20 12/09/16 08:00 Blood Pressure 107/58 12/09/16 08:00 O2 Sat by Pulse Oximetry (%) 97 12/09/16 09:00 Intake & Output 12/06/16 12/07/16 12/08/16 12/09/16 23:59 23:59 23:59 23:59 Intake Total 1530 2050 Output Total 800 300 Balance 730 1750 Weight 99 lb 3 oz 102 lb 6 oz Gen: NAD, awake but no verbal HEENT: Dry MM CVS: RRR, + murmur Lungs: Dec Bs at lung bases (anterior exam) Abd: Soft NT/ND Ext: no edema, clubbing or cyanosis Neuro: AAOx3, no focal defects CBC, BMP 12/09/16 08:00 12/09/16 08:00 Current Medications Acetaminophen (Tylenol Oral Solution -) 650 mg GT Q6H PRN PRN Reason: pain/fever Last Admin: 12/08/16 06:46 Dose: 650 mg Amino Acids (Prosource No Carb Liquid Pkt) 30 ml GT BID@0800,1730 [facility] Last Admin: 12/09/16 09:03 Dose: 30 ml Ascorbic Acid (Vitamin C Oral Solution -) 500 mg GT TID [facility] Last Admin: 12/09/16 14:23 Dose: 500 mg Escitalopram Oxalate (Lexapro Oral Solution -) 10 mg GT DAILY [facility] Last Admin: 12/09/16 10:10 Dose: 10 mg Heparin Sodium (Porcine) (Heparin -) 5,000 unit SQ BID [facility] Last Admin: 12/09/16 09:38 Dose: 5,000 unit Pantoprazole Sodium 40 mg/ (Sodium Chloride) 100 mls @ 200 mls/hr IVPB DAILY [facility] Last Admin: 12/09/16 09:36 Dose: 200 mls/hr Tigecycline 50 mg/ Dextrose 100 mls @ 100 mls/hr IVPB BID [facility] PRN Reason: Protocol Last Admin: 12/09/16 09:37 Dose: 100 mls/hr Sodium Chloride (1/2 Normal Saline) 1,000 mls @ 100 mls/hr IV ASDIR [facility] Insulin Aspart (Novolog Vial Sliding Scale -) 1 vial SQ ACHS [facility] PRN Reason: Protocol Last Admin: 12/09/16 12:09 Dose: Not Given Insulin Detemir (Levemir Vial) 15 units SQ HS [facility] Last Admin: 12/08/16 21:31 Dose: 15 units Insulin Detemir (Levemir Vial) 10 units SQ AM [facility] Last Admin: 12/09/16 06:16 Dose: 10 units A/P 81 year old woman well known to our service with hx of dementia, PVD s/p b/l BKA , Hypertension, HLD, GERD, Sacral decubitis ulcers who presented [place] with AMS and found to be be hypernatremia and with GIANNI. #Acute Renal Failure secondary to volume depletion renal function improved s/p IVF would continue hypotonic IVF given high BUN/Cr ratio and hypernatremia Trend BUN/cr daily no indication for SPLITTER HAND unable to access for uremia b/c of clinical status #Hypernatremia Water deficit is 3.2L will give 1/2 NS at 100cc per hour x 24 hours goal rate of correction is 8 in 24 hours #Sepsis/UTI/PNA continue abx as per ID #Anemia iron studies pending transfuse for Hgb less then 7 or hemodynamic instability Thank you Will follow Vahid Manzano DO
[2016-12-09] MEDS: ACETAMINOPHEN 650 MG/20.3 ML ORAL SOLUTION (CUPS) GT PRN (16:41)
[2016-12-09] MEDS ORDERED: PT OWN MED DRAWER 7, Y5N ONE (21:34)
[2016-12-10] MEDS ORDERED: PT OWN MED DRAWER 7, Y5N ONE ×4 (05:50→22:37)
[2016-12-10] MEDS: ACETAMINOPHEN 650 MG/20.3 ML ORAL SOLUTION (CUPS) GT PRN (05:59)
[2016-12-10] MEDS: INSULIN SLIDING SCALE (NOVOLOG) 1 VIAL SQ SCH ×4 (05:59→22:43)
[2016-12-10] MEDS: INSULIN DETEMIR 100 UNITS/ML MDV SQ SCH ×2 (06:01→22:42)
[2016-12-10] MEDS: ASCORBIC ACID 500 MG/5 ML UNIT DOSE CUP GT SCH ×3 (06:01→22:43)
[2016-12-10 06:06] LABS: SERUM IRON 31 ug/dL (27-139); TOTAL IRON BINDING CAPACITY 144 ug/dL (250-450); UIBC 113 ug/dL (118-369)
[2016-12-10] MEDS: AMINO ACIDS/PROTEIN HYDROLYS 30 ML LIQUID.PKT GT SCH ×2 (08:04→17:33)
[2016-12-10 09:10] LABS: ALBUMIN 1.4 g/dl (3.4-5.0); ALK PHOS 91 U/L (45-117); ANION GAP 8 (8-16); BILIRUBIN,TOTAL 0.2 mg/dL (0.2-1.0); CALCIUM 7.7 mg/dL (8.5-10.1); CO2 22 mmol/L (21-32); CREATININE 0.9 mg/dL (0.55-1.02); GLUCOSE,RANDOM 177 mg/dL (74-106); SGOT/AST 13 U/L (15-37); SGPT/ALT 13 U/L (12-78); TOT PROT 6.2 g/dl (6.4-8.2)
[2016-12-10 09:11] LABS: FERRITIN 1608.782 ng/ml (6.9-282.5)
--- NOTE | 2016-12-10 09:27 | PN ---
Progress Note, Physician Chief Complaint: patient sleeping opens her eyes not talking fever 101.5 - Current Medication List Current Medications: Active Medications Acetaminophen (Tylenol Oral Solution -) 650 mg GT Q6H PRN PRN Reason: pain/fever Last Admin: 12/10/16 05:59 Dose: 650 mg Amino Acids (Prosource No Carb Liquid Pkt) 30 ml GT BID@0800,1730 [facility] Last Admin: 12/10/16 08:04 Dose: 30 ml Ascorbic Acid (Vitamin C Oral Solution -) 500 mg GT TID [facility] Last Admin: 12/10/16 06:01 Dose: 500 mg Escitalopram Oxalate (Lexapro Oral Solution -) 10 mg GT DAILY [facility] Last Admin: 12/09/16 10:10 Dose: 10 mg Heparin Sodium (Porcine) (Heparin -) 5,000 unit SQ BID [facility] Last Admin: 12/09/16 21:44 Dose: 5,000 unit Pantoprazole Sodium 40 mg/ (Sodium Chloride) 100 mls @ 200 mls/hr IVPB DAILY [facility] Last Admin: 12/09/16 09:36 Dose: 200 mls/hr Tigecycline 50 mg/ Dextrose 100 mls @ 100 mls/hr IVPB BID [facility] PRN Reason: Protocol Last Admin: 12/09/16 21:43 Dose: 100 mls/hr Sodium Chloride (1/2 Normal Saline) 1,000 mls @ 100 mls/hr IV ASDIR [facility] Last Admin: 12/09/16 16:28 Dose: 100 mls/hr Insulin Aspart (Novolog Vial Sliding Scale -) 1 vial SQ ACHS [facility] PRN Reason: Protocol Last Admin: 12/10/16 05:59 Dose: Not Given Insulin Detemir (Levemir Vial) 15 units SQ HS [facility] Last Admin: 12/09/16 21:44 Dose: 15 units Insulin Detemir (Levemir Vial) 10 units SQ AM [facility] Last Admin: 12/10/16 06:01 Dose: 10 units - Objective Vital Signs: Vital Signs Temperature 101.7 F H 12/10/16 06:00 Pulse Rate 86 12/10/16 06:00 Respiratory Rate 18 12/10/16 06:00 Blood Pressure 127/50 12/10/16 06:00 O2 Sat by Pulse Oximetry (%) 94 L 12/09/16 20:50 Constitutional: Yes: Calm, Thin Cardiovascular: Yes: Murmur, S1, S2 Respiratory: Yes: CTA Bilaterally, Diminished (in bases) Gastrointestinal: Yes: Normal Bowel Sounds, Soft Extremities: Yes: Other (s/p bilateral BKA) Edema: No Labs: CBC, BMP 12/09/16 08:00 12/10/16 08:00 INR, PTT INR 1.04 (0.82-1.09) 12/08/16 02:00 Problem List - Problems (1) Fever Assessment/Plan: tmax 101.5 cbc ordered for today iv abx Code(s): R50.9 - FEVER, UNSPECIFIED (2) Acute kidney injury superimposed on CKD Assessment/Plan: renal eval apprecviated on 03/29 NS right now Code(s): N17.9 - ACUTE KIDNEY FAILURE, UNSPECIFIED N18.9 - CHRONIC KIDNEY DISEASE, UNSPECIFIED (3) Anemia Assessment/Plan: iron studies noted stool occult pending Code(s): D64.9 - ANEMIA, UNSPECIFIED Qualifiers: Anemia type: iron deficiency Iron deficiency anemia type: unspecified iron deficiency Qualified Code(s): D50.9 - Iron deficiency anemia, unspecified (4) Diabetes 1.5, managed as type 2 Assessment/Plan: on insulin bgm noted hga1c noted Code(s): E10.9 - TYPE 1 DIABETES MELLITUS WITHOUT COMPLICATIONS
[2016-12-10] MEDS ORDERED: INSULIN (NOVOLOG) ASPART 100 UNITS/ML 10ML VIAL ONE ×2 (10:02→15:41)
[2016-12-10 10:09] LABS: MCH 30.5 pg (25.7-33.7)
[2016-12-10] MEDS: TIGECYCLINE 50 MG in DEXTROSE 5%-WATER - 100 ML IVPB SCH ×2 (10:10→22:42)
[2016-12-10] MEDS: PANTOPRAZOLE SODIUM 40 MG in SODIUM CHLORIDE 100 ML IVPB SCH (10:10)
[2016-12-10] MEDS: HEPARIN NA (PORCINE) 5,000 UNITS/ML 1ML VIAL SQ SCH ×2 (10:10→22:44)
[2016-12-10] MEDS: ESCITALOPRAM OXALATE 5 MG/5 ML GT SCH (10:10)
[2016-12-10 10:18] LABS: MEAN CELL VOLUME 95.1 fl (80-96); MEAN PLT VOLUME 10.3 fl (7.5-11.1); PLATELET COUNT 235 K/MM3 (134-434); WHITE BLOOD COUNT 10.1 K/mm3 (4.0-10.0)
[2016-12-10 12:53] LABS: METAMYELOCYTE 1 % (0-2); TOTAL CELLS COUNTED 100
--- NOTE | 2016-12-10 13:09 | PN ---
Progress Note (short form) - Note Progress Note: PULMONARY CHART REVIEWED NO SIGNIFICANT CHANGE IN EXAM Sacral Decubitus Ulcer Infection UTI Severe Sepsis Lactic Acidosis LV Diastolic Dysfunction Mitral Regurgitation h/o Bilateral BKA HTN Dementia - IV antibiotics per ID - f/u cultures - local wound care - IVF - aspiration precautions - VTE prophylaxis Racheal LUND MD
--- NOTE | 2016-12-10 13:51 | PN ---
Progress Note (short form) - Note Progress Note: awake nonverba, NAD no diarrhea per nursing staff Vital Signs Period Temp Pulse Resp BP Sys/Chávez Pulse Ox Last 24 Hr 98.1 F-101.7 F 71-87 18-20 100-127/50-60 94-100 cor-rrr lungs clear abd soft,n peg site clean ext bilateral BKA +sacral ulcer CBC, BMP 12/10/16 09:30 12/10/16 08:00 Microbiology 12/08/16 02:05 Blood - Peripheral Venous Blood Culture - Preliminary NO GROWTH OBTAINED AFTER 48 HOURS, INCUBATION TO CONTINUE FOR 3 DAYS. 12/08/16 02:00 Blood - Peripheral Venous Blood Culture - Preliminary NO GROWTH OBTAINED AFTER 48 HOURS, INCUBATION TO CONTINUE FOR 3 DAYS. 12/09/16 04:00 Urine For Antigen Detection Legionella Antigen - Final 12/09/16 04:00 Urine For Antigen Detection Streptococcus pneumoniae Antigen (M - Final 12/08/16 02:40 Urine - Urine Gonzales Urine Culture - Final Contaminated: Please Repeat 12/08/16 12:30 Stool Clostridium difficile Antigen (JAKY) - Final-negative 12/08/16 12:30 Stool Clostridium difficile Toxin Assay - Final-negative a/p fevers- repeat cxray- ?pneumonia, ?decub continue tygacil history of prior multidrug resistant organisms sepsis- ?decub, ?urine surgery to see decub ulcer bilateral BKA strict contact isolation overall prognosis is grim Problem List - Problems (1) Severe sepsis Code(s): A41.9 - SEPSIS, UNSPECIFIED ORGANISM R65.20 - SEVERE SEPSIS WITHOUT SEPTIC SHOCK (2) C. difficile diarrhea Code(s): A04.7 - ENTEROCOLITIS DUE TO CLOSTRIDIUM DIFFICILE (3) UTI (urinary tract infection) Code(s): N39.0 - URINARY TRACT INFECTION, SITE NOT SPECIFIED Qualifiers: Urinary tract infection type: acute cystitis Hematuria presence: without hematuria Qualified Code(s): N30.00 - Acute cystitis without hematuria (4) Pneumonia Code(s): J18.9 - PNEUMONIA, UNSPECIFIED ORGANISM Qualifiers: Pneumonia type: due to unspecified organism Laterality: left Lung location: lower lobe of lung Qualified Code(s): J18.1 - Lobar pneumonia, unspecified organism (5) Sacral decubitus ulcer, stage III Code(s): L89.153 - PRESSURE ULCER OF SACRAL REGION, STAGE 3 (6) Acute kidney injury superimposed on CKD Code(s): N17.9 - ACUTE KIDNEY FAILURE, UNSPECIFIED N18.9 - CHRONIC KIDNEY DISEASE, UNSPECIFIED (7) Drug (multiple) resistant infection Code(s): 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
--- NOTE | 2016-12-10 14:26 | PN ---
Progress Note (short form) - Note Progress Note: Nephrology follow up for Hypernatremia Pt seen and examined at the bedside non-verbal no overnight events Gen: NAD, awake but no verbal HEENT: Dry MM CVS: RRR, + murmur Lungs: Dec Bs at lung bases (anterior exam) Abd: Soft NT/ND Ext: no edema, clubbing or cyanosis Neuro: AAOx3, no focal defects CBC, BMP 12/10/16 09:30 12/10/16 08:00 Current Medications Acetaminophen (Tylenol Oral Solution -) 650 mg GT Q6H PRN PRN Reason: pain/fever Last Admin: 12/10/16 05:59 Dose: 650 mg Amino Acids (Prosource No Carb Liquid Pkt) 30 ml GT BID@0800,1730 [facility] Last Admin: 12/10/16 08:04 Dose: 30 ml Ascorbic Acid (Vitamin C Oral Solution -) 500 mg GT TID [facility] Last Admin: 12/10/16 14:02 Dose: 500 mg Escitalopram Oxalate (Lexapro Oral Solution -) 10 mg GT DAILY [facility] Last Admin: 12/10/16 10:10 Dose: 10 mg Heparin Sodium (Porcine) (Heparin -) 5,000 unit SQ BID [facility] Last Admin: 12/10/16 10:10 Dose: 5,000 unit Pantoprazole Sodium 40 mg/ (Sodium Chloride) 100 mls @ 200 mls/hr IVPB DAILY [facility] Last Admin: 12/10/16 10:10 Dose: 200 mls/hr Tigecycline 50 mg/ Dextrose 100 mls @ 100 mls/hr IVPB BID [facility] PRN Reason: Protocol Last Admin: 12/10/16 10:10 Dose: 100 mls/hr Dextrose (D5w -) 1,000 mls @ 75 mls/hr IV ASDIR [facility] Insulin Aspart (Novolog Vial Sliding Scale -) 1 vial SQ ACHS [facility] PRN Reason: Protocol Last Admin: 12/10/16 10:09 Dose: Not Given Insulin Detemir (Levemir Vial) 15 units SQ HS [facility] Last Admin: 12/09/16 21:44 Dose: 15 units Insulin Detemir (Levemir Vial) 10 units SQ AM [facility] Last Admin: 12/10/16 06:01 Dose: 10 units A/P 81 year old woman well known to our service with hx of dementia, PVD s/p b/l BKA , Hypertension, HLD, GERD, Sacral decubitis ulcers who presented from [place] with AMS and found to be be hypernatremia and with GIANNI. #Acute Renal Failure Cr stable, BUN improving BP stable change IVF to D5W keep MAP >65 #Hypernatremia serum Na improving change IVF to D5W #Sepsis/UTI/PNA continue abx as per ID #Anemia for PRBC transfusion today as per PMD Vahid Manzano DO
[2016-12-10] MEDS ORDERED: DEXTROSE 5%-WATER - 1,000 ML IV SCH (14:30)
--- NOTE | 2016-12-10 14:31 | CONSULT ---
Consult Consult Specialty:: hematology/oncology Reason for Consultation:: Anemia - History of Present Illness History of Present Illness: 81 year old woman with hx of dementia, PVD s/p b/l BKA, Hypertension, HLD, GERD , Sacral decubitis ulcers who presented from [place] with AMS. She is presently being treated for sepsis/GIANNI/Hypernatremia. Hematology called for anemia. Hx obtained from chart - Past Medical History FIELD ADJUSTER: Yes: CVA, Dementia Cardio/Vascular: Yes: Aortic Stenosis, CHF, HTN, Hyperlipdemia Pulmonary: Yes: COPD Gastrointestinal: Yes: GERD Renal/: Yes: Renal Inusuff ...: No Endocrine: Yes: Diabetes Mellitus Dermatology: Yes: Other (PU) - Alcohol/Substance Use Hx Alcohol Use: No - Smoking History Smoking history: Never smoked Have you smoked in the past 12 months: No Aproximately how many cigarettes per day: 0 - Social History Usual Living Arrangement: Assisted History of Recent Travel: No Home Medications - Allergies Allergies/Adverse Reactions: Allergies Allergy/AdvReac Type Severity Reaction Status Date / Time No Known Drug Allergies Allergy Verified 12/08/16 03:39 - Home Medications Home Medications: Ambulatory Orders Acetaminophen Oral Solution [Tylenol Oral Solution -] 650 mg GT Q6H PRN Ceftriaxone Na/Dextrose,Iso [Ceftriaxone 1 gm-D5w Bag] 1 gm IV DAILY 12/08/16 Doxazosin Mesylate [Cardura] 2 mg GT DAILY 12/08/16 Escitalopram Oxalate [Lexapro Oral Solution -] 10 mg GT DAILY 12/08/16 FENTANYL 12mcg PATCH [DURAGESIC 12mcg PATCH -] 1 each TD Q72H 12/08/16 Ferrous Sulfate *Liquid* [Feosol] 330 mg GT TID 12/08/16 Heparin - 5,000 units IJ BID 12/08/16 Insulin Aspart [Novolog] 0 unit SQ TID 12/08/16 Insulin Detemir [Levemir Flextouch] 18 unit SQ HS 12/08/16 Insulin Detemir [Levemir Flextouch] 25 unit SQ DAILY 12/08/16 Lactobacillus Acidophilus [Acidophilus] 1 each GT DAILY 12/08/16 Naph,Mb-Db/K pH,Mbdb [PHOS-NaK PACKET -] 1 packet GT DAILY 12/08/16 Ranitidine HCl 150 mg GT DAILY 12/08/16 Vit C/Ascorbate Calcium,Sodium [Vitamin C 500 mg/15 ml Liquid] 500 mg GT Q8H Vitamin B Comp W-C [Nephro-Rafael -] 1 tablet GT DAILY 12/08/16 Review of Systems Findings/Remarks: clinical condition Physical Exam Vital Signs: Vital Signs Temperature 98.9 F 12/10/16 08:00 Pulse Rate 76 12/10/16 11:29 Respiratory Rate 20 12/10/16 08:00 Blood Pressure 107/51 12/10/16 08:00 O2 Sat by Pulse Oximetry (%) 97 12/10/16 11:29 Constitutional: Yes: Thin Eyes: Yes: Conjunctiva Clear Neck: Yes: Supple Cardiovascular: Yes: Regular Rate and Rhythm Respiratory: Yes: Regular Gastrointestinal: Yes: Normal Bowel Sounds, Soft Extremities: Yes: Amputation Labs: CBC, BMP 12/10/16 09:30 12/10/16 08:00 Imaging - Results Cat Scan: Report Reviewed (from 06/2016) Problem List - Problems (1) Warm antibody hemolytic anemia Code(s): 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 - OTHER AUTOIMMUNE HEMOLYTIC ANEMIAS (2) Anemia Code(s): D64.9 - ANEMIA, UNSPECIFIED Qualifiers: Anemia type: iron deficiency Iron deficiency anemia type: unspecified iron deficiency Qualified Code(s): D50.9 - Iron deficiency anemia, unspecified (3) Severe sepsis Code(s): A41.9 - SEPSIS, UNSPECIFIED ORGANISM R65.20 - SEVERE SEPSIS WITHOUT SEPTIC SHOCK (4) Acute kidney injury superimposed on CKD Code(s): N17.9 - ACUTE KIDNEY FAILURE, UNSPECIFIED N18.9 - CHRONIC KIDNEY DISEASE, UNSPECIFIED (5) Altered mental status Code(s): R41.82 - ALTERED MENTAL STATUS, UNSPECIFIED (6) Decubitus ulcer Code(s): L89.90 - PRESSURE ULCER OF UNSPECIFIED SITE, UNSPECIFIED STAGE Qualifiers: Pressure ulcer location: buttock (7) S/P AKA (above knee amputation) bilateral Code(s): Z89.611 - ACQUIRED ABSENCE OF RIGHT LEG ABOVE KNEE Z89.612 - ACQUIRED ABSENCE OF LEFT LEG ABOVE KNEE Assessment/Plan 81 year old woman well known to our service with hx of dementia, PVD s/p b/l BKA , Hypertension, HLD, GERD, Sacral decubitis ulcers who presented from [place] with AMS and is presently being treated for sepsis , GIANNI and hypernatremia. Pt is non verbal at baseline. Hematology consulted for anemia chart reviewed in detail, pt has a history positive for warm auto ab hemolytic anemia, but she never had a significant hemolysis in the past. Her CT scans from 06/2016 were reviewed, no evidence of splenomegaly noted. Presently, less suspicious for hemolysis as the cause. will order for the hemolysis labs. The iron studies were reviewed, likely anemia of chronic disease, ferritin an acute phase reactant , from her chronic illness. For PRBC transfusion ordered by pmd, spoke to blood bank, type/screen discussed with them, her tests are unchanged from before. Blood work for tomorrow. Renal/ID f/u noted.
--- NOTE | 2016-12-10 17:30 | PN ---
Progress Note (short form) - Note Progress Note: Vascular surgery Well known to vascular Surgery service. Stage 4 sacral ulcer Clean , pink. Was on vac therapy at [place] Dressing changed. Dressing green -- could be pseudomonas infection. Cont wet to dry dressing changes. ID on case for antibiotics. offload sacrum if possible. Felipe soria DO
[2016-12-11] MEDS ORDERED: PT OWN MED DRAWER 7, Y5N ONE ×3 (06:06→14:53)
[2016-12-11] MEDS: ASCORBIC ACID 500 MG/5 ML UNIT DOSE CUP GT SCH ×3 (06:13→21:58)
[2016-12-11] MEDS: INSULIN SLIDING SCALE (NOVOLOG) 1 VIAL SQ SCH ×5 (06:14→21:59)
[2016-12-11] MEDS: INSULIN DETEMIR 100 UNITS/ML MDV SQ SCH ×2 (06:14→21:58)
[2016-12-11 08:37] LABS: BASOPHIL 0.3 % (0-2.0); EOSINOPHIL 1.5 % (0-4.5); MCH 30.6 pg (25.7-33.7); MCHC 32.5 g/dl (32.0-36.0); MEAN CELL VOLUME 93.9 fl (80-96); NEUTROPHILS 62.2 % (42.8-82.8); PLATELET COUNT 243 K/MM3 (134-434); RDW 21.6 % (11.6-15.6); WHITE BLOOD COUNT 9.4 K/mm3 (4.0-10.0)
[2016-12-11] MEDS: AMINO ACIDS/PROTEIN HYDROLYS 30 ML LIQUID.PKT GT SCH ×2 (08:42→18:11)
[2016-12-11 09:06] LABS: ALBUMIN 1.4 g/dl (3.4-5.0); ANION GAP 5 (8-16); BILIRUBIN,TOTAL 0.3 mg/dL (0.2-1.0); CALCIUM 7.6 mg/dL (8.5-10.1); CO2 25 mmol/L (21-32); CREATININE 0.8 mg/dL (0.55-1.02); GLUCOSE,RANDOM 233 mg/dL (74-106); LDH 146 U/L (84-246); SGOT/AST 12 U/L (15-37); SGPT/ALT 10 U/L (12-78)
[2016-12-11 09:07] LABS: C-REACTIVE PROTEIN 7.7 MG/DL (0.00-0.3)
[2016-12-11 09:09] LABS: ALK PHOS 85 U/L (45-117); URIC ACID 5.5 mg/dL (2.6-7.2)
--- NOTE | 2016-12-11 10:04 | PN ---
Progress Note, Physician Chief Complaint: AWAKE, NON-VERBAL APHASIA NAD CHART REVIEWED - Current Medication List Current Medications: Active Medications Acetaminophen (Tylenol Oral Solution -) 650 mg GT Q6H PRN PRN Reason: pain/fever Last Admin: 12/10/16 05:59 Dose: 650 mg Amino Acids (Prosource No Carb Liquid Pkt) 30 ml GT BID@0800,1730 [facility] Last Admin: 12/11/16 08:42 Dose: 30 ml Ascorbic Acid (Vitamin C Oral Solution -) 500 mg GT TID [facility] Last Admin: 12/11/16 06:13 Dose: 500 mg Escitalopram Oxalate (Lexapro Oral Solution -) 10 mg GT DAILY [facility] Last Admin: 12/10/16 10:10 Dose: 10 mg Heparin Sodium (Porcine) (Heparin -) 5,000 unit SQ BID [facility] Last Admin: 12/10/16 22:44 Dose: 5,000 unit Pantoprazole Sodium 40 mg/ (Sodium Chloride) 100 mls @ 200 mls/hr IVPB DAILY [facility] Last Admin: 12/10/16 10:10 Dose: 200 mls/hr Tigecycline 50 mg/ Dextrose 100 mls @ 100 mls/hr IVPB BID [facility] PRN Reason: Protocol Last Admin: 12/10/16 22:42 Dose: 100 mls/hr Dextrose (D5w -) 1,000 mls @ 75 mls/hr IV ASDIR [facility] Last Admin: 12/10/16 14:48 Dose: 75 mls/hr Insulin Aspart (Novolog Vial Sliding Scale -) 1 vial SQ ACHS [facility] PRN Reason: Protocol Last Admin: 12/11/16 06:14 Dose: 2 unit Insulin Detemir (Levemir Vial) 15 units SQ HS [facility] Last Admin: 12/10/16 22:42 Dose: 15 units Insulin Detemir (Levemir Vial) 10 units SQ AM [facility] Last Admin: 12/11/16 06:14 Dose: 10 units - Objective Vital Signs: Vital Signs Temperature 98.7 F 12/11/16 05:57 Pulse Rate 81 12/11/16 05:57 Respiratory Rate 18 12/11/16 05:57 Blood Pressure 114/60 12/11/16 05:57 O2 Sat by Pulse Oximetry (%) 97 12/10/16 21:00 Constitutional: Yes: Mild Distress Eyes: Yes: WNL HENT: Yes: WNL Neck: Yes: WNL Cardiovascular: Yes: WNL Respiratory: Yes: WNL Gastrointestinal: Yes: WNL Genitourinary: Yes: Other Musculoskeletal: Yes: Muscle Weakness Extremities: Yes: Amputation Edema: No Peripheral Pulses WNL: Yes Integumentary: Yes: Pressure Ulcer Wound/Incision: Yes: Dressing Dry and Intact Neurological: Yes: Pre-Existing Deficit ...Motor Strength: LLE, RLE (AKA) Psychiatric: Yes: Other Labs: CBC, BMP 12/11/16 07:55 12/11/16 07:55 INR, PTT INR 1.04 (0.82-1.09) 12/08/16 02:00 Problem List - Problems (1) Acute kidney injury superimposed on CKD Code(s): N17.9 - ACUTE KIDNEY FAILURE, UNSPECIFIED N18.9 - CHRONIC KIDNEY DISEASE, UNSPECIFIED (2) Anemia Code(s): D64.9 - ANEMIA, UNSPECIFIED Qualifiers: Anemia type: iron deficiency Iron deficiency anemia type: unspecified iron deficiency Qualified Code(s): D50.9 - Iron deficiency anemia, unspecified (3) Diabetes 1.5, managed as type 2 Code(s): E10.9 - TYPE 1 DIABETES MELLITUS WITHOUT COMPLICATIONS (4) Fever Code(s): R50.9 - FEVER, UNSPECIFIED (5) Sacral decubitus ulcer, stage III Code(s): L89.153 - PRESSURE ULCER OF SACRAL REGION, STAGE 3 Assessment/Plan MULTIPLE MEDICAL DISEASES WITH LONG HISTORY OF SEPSIS URINARY AND RESP. S/P AKA LEGS B/L NOW DNR WOUND CARE IVF IV ABX PER ID
[2016-12-11] MEDS: HEPARIN NA (PORCINE) 5,000 UNITS/ML 1ML VIAL SQ SCH ×2 (10:25→21:58)
--- NOTE | 2016-12-11 10:38 | PN ---
Progress Note (short form) - Note Progress Note: awake trying to speak no diarrhea per nursing staff Vital Signs Period Temp Pulse Resp BP Sys/Chávez Pulse Ox Last 24 Hr 98.4 F-99.7 F 60-81 18-18 99-121/47-76 97-97 cor-rrr lungs clear abd soft,nt ect bilateral BKA CBC, BMP 12/11/16 07:55 12/11/16 07:55 Microbiology 12/08/16 02:05 Blood - Peripheral Venous Blood Culture - Preliminary NO GROWTH OBTAINED AFTER 72 HOURS, INCUBATION TO CONTINUE FOR 2 DAYS. 12/08/16 02:00 Blood - Peripheral Venous Blood Culture - Preliminary NO GROWTH OBTAINED AFTER 72 HOURS, INCUBATION TO CONTINUE FOR 2 DAYS. 12/08/16 02:40 Urine - Urine Gonzales Urine Culture - Final Contaminated: Please Repeat 12/09/16 04:00 Urine For Antigen Detection Legionella Antigen - Final 12/09/16 04:00 Urine For Antigen Detection Streptococcus pneumoniae Antigen (M - Final 12/08/16 12:30 Stool Clostridium difficile Antigen (JAKY) - Final 12/08/16 12:30 Stool Clostridium difficile Toxin Assay - Final cxray RLL infiltrate a/p fevers- repeat cxray- ?pneumonia, ?decub continue tygacil day #3 now afebrile clinically improved history of prior multidrug resistant organisms sepsis- ?decub, ?urine surgery to see decub ulcer bilateral BKA strict contact isolation overall prognosis is grim Problem List - Problems (1) Severe sepsis Code(s): A41.9 - SEPSIS, UNSPECIFIED ORGANISM R65.20 - SEVERE SEPSIS WITHOUT SEPTIC SHOCK (2) C. difficile diarrhea Code(s): A04.7 - ENTEROCOLITIS DUE TO CLOSTRIDIUM DIFFICILE (3) UTI (urinary tract infection) Code(s): N39.0 - URINARY TRACT INFECTION, SITE NOT SPECIFIED Qualifiers: Urinary tract infection type: acute cystitis Hematuria presence: without hematuria Qualified Code(s): N30.00 - Acute cystitis without hematuria (4) Pneumonia Code(s): J18.9 - PNEUMONIA, UNSPECIFIED ORGANISM Qualifiers: Pneumonia type: due to unspecified organism Laterality: left Lung location: lower lobe of lung Qualified Code(s): J18.1 - Lobar pneumonia, unspecified organism (5) Sacral decubitus ulcer, stage III Code(s): L89.153 - PRESSURE ULCER OF SACRAL REGION, STAGE 3 (6) Acute kidney injury superimposed on CKD Code(s): N17.9 - ACUTE KIDNEY FAILURE, UNSPECIFIED N18.9 - CHRONIC KIDNEY DISEASE, UNSPECIFIED (7) Drug (multiple) resistant infection Code(s): 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
--- NOTE | 2016-12-11 10:42 | PN ---
Progress Note (short form) - Note Progress Note: Nephrology follow up for Hypernatremia Pt seen and examined at the bedside no overnight events more awake today, speaking Vital Signs Temperature 98.7 F 12/11/16 05:57 Pulse Rate 76 12/11/16 10:35 Respiratory Rate 18 12/11/16 05:57 Blood Pressure 114/60 12/11/16 05:57 O2 Sat by Pulse Oximetry (%) 99 12/11/16 10:35 Intake & Output 12/08/16 12/09/16 12/10/16 12/11/16 23:59 23:59 23:59 23:59 Intake Total 1530 3630 3980 1800 Output Total 805 278 2649 250 Balance 730 3130 2530 1550 Weight 99 lb 3 oz 102 lb 6 oz 105 lb 5 oz 107 lb 5 oz Gen: NAD, awake but no verbal HEENT: Dry MM CVS: RRR, + murmur Lungs: Dec Bs at lung bases (anterior exam) Abd: Soft NT/ND Ext: no edema, clubbing or cyanosis Neuro: AAOx3, no focal defects CBC, BMP 12/11/16 07:55 12/11/16 07:55 Current Medications Acetaminophen (Tylenol Oral Solution -) 650 mg GT Q6H PRN PRN Reason: pain/fever Last Admin: 12/10/16 05:59 Dose: 650 mg Amino Acids (Prosource No Carb Liquid Pkt) 30 ml GT BID@0800,1730 [facility] Last Admin: 12/11/16 08:42 Dose: 30 ml Ascorbic Acid (Vitamin C Oral Solution -) 500 mg GT TID [facility] Last Admin: 12/11/16 06:13 Dose: 500 mg Escitalopram Oxalate (Lexapro Oral Solution -) 10 mg GT DAILY [facility] Last Admin: 12/10/16 10:10 Dose: 10 mg Heparin Sodium (Porcine) (Heparin -) 5,000 unit SQ BID [facility] Last Admin: 12/10/16 22:44 Dose: 5,000 unit Pantoprazole Sodium 40 mg/ (Sodium Chloride) 100 mls @ 200 mls/hr IVPB DAILY [facility] Last Admin: 12/10/16 10:10 Dose: 200 mls/hr Tigecycline 50 mg/ Dextrose 100 mls @ 100 mls/hr IVPB BID [facility] PRN Reason: Protocol Last Admin: 12/10/16 22:42 Dose: 100 mls/hr Dextrose (D5w -) 1,000 mls @ 75 mls/hr IV ASDIR [facility] Last Admin: 12/10/16 14:48 Dose: 75 mls/hr Insulin Aspart (Novolog Vial Sliding Scale -) 1 vial SQ ACHS [facility] PRN Reason: Protocol Last Admin: 12/11/16 06:14 Dose: 2 unit Insulin Detemir (Levemir Vial) 15 units SQ HS [facility] Last Admin: 12/10/16 22:42 Dose: 15 units Insulin Detemir (Levemir Vial) 10 units SQ AM [facility] Last Admin: 12/11/16 06:14 Dose: 10 units A/P 81 year old woman well known to our service with hx of dementia, PVD s/p b/l BKA , Hypertension, HLD, GERD, Sacral decubitis ulcers who presented from [place] with AMS and found to be be hypernatremia and with GIANNI. #Acute Renal Failure Renal function improving BUN trending down #Hypernatremia Na improiving at a good rate continue D5W and free water via G-tube #Sepsis/UTI/PNA continue abx as per LUKE Manzano DO
[2016-12-11] MEDS: ESCITALOPRAM OXALATE 5 MG/5 ML GT SCH (11:04)
[2016-12-11] MEDS: PANTOPRAZOLE SODIUM 40 MG in SODIUM CHLORIDE 100 ML IVPB SCH (11:05)
--- NOTE | 2016-12-11 11:10 | PN ---
Progress Note (short form) - Note Progress Note: Awake and more alert today. NAD on NC O2. Intake & Output 12/08/16 12/09/16 12/10/16 12/11/16 23:59 23:59 23:59 23:59 Intake Total 1530 3630 3980 1800 Output Total 177 217 0173 250 Balance 730 3130 2530 1550 Weight 99 lb 3 oz 102 lb 6 oz 105 lb 5 oz 107 lb 5 oz Last Vital Signs Temp Pulse Resp BP Pulse Ox 98 F 76 18 125/58 99 12/11/16 09:00 12/11/16 10:35 12/11/16 09:00 12/11/16 09:00 12/11/16 10:35 Active Medications Acetaminophen (Tylenol Oral Solution -) 650 mg GT Q6H PRN PRN Reason: pain/fever Last Admin: 12/10/16 05:59 Dose: 650 mg Amino Acids (Prosource No Carb Liquid Pkt) 30 ml GT BID@0800,1730 [facility] Last Admin: 12/11/16 08:42 Dose: 30 ml Ascorbic Acid (Vitamin C Oral Solution -) 500 mg GT TID [facility] Last Admin: 12/11/16 06:13 Dose: 500 mg Escitalopram Oxalate (Lexapro Oral Solution -) 10 mg GT DAILY [facility] Last Admin: 12/11/16 11:04 Dose: 10 mg Heparin Sodium (Porcine) (Heparin -) 5,000 unit SQ BID [facility] Last Admin: 12/10/16 22:44 Dose: 5,000 unit Pantoprazole Sodium 40 mg/ (Sodium Chloride) 100 mls @ 200 mls/hr IVPB DAILY [facility] Last Admin: 12/11/16 11:05 Dose: 200 mls/hr Tigecycline 50 mg/ Dextrose 100 mls @ 100 mls/hr IVPB BID [facility] PRN Reason: Protocol Last Admin: 12/10/16 22:42 Dose: 100 mls/hr Dextrose (D5w -) 1,000 mls @ 84 mls/hr IV ASDIR [facility] Insulin Aspart (Novolog Vial Sliding Scale -) 1 vial SQ ACHS [facility] PRN Reason: Protocol Last Admin: 12/11/16 06:14 Dose: 2 unit Insulin Detemir (Levemir Vial) 15 units SQ HS [facility] Last Admin: 12/10/16 22:42 Dose: 15 units Insulin Detemir (Levemir Vial) 10 units SQ AM [facility] Last Admin: 12/11/16 06:14 Dose: 10 units Constitutional: Yes: Awake, NAD Eyes: Yes: Conjunctiva Clear, EOM Intact HENT: Yes: Atraumatic, Normocephalic Neck: Yes: Supple, Trachea Midline Cardiovascular: Yes: Regular Rate and Rhythm Respiratory: Yes: Diminished at the bases Gastrointestinal: Yes: Normal Bowel Sounds, Soft. No: Tenderness Extremities: Yes: Other (bilateral BKA) Edema: No Laboratory Results - last 24 hr 12/08/16 12/08/16 12/08/16 02:00 02:00 02:00 WBC 12.0 H D RBC 2.72 L Hgb 8.3 L Hct 26.2 L MCV 96.3 H MCH 30.6 MCHC 31.8 L RDW 21.5 H D Plt Count 257 MPV 10.3 D Total Counted Neutrophils % 61.7 Neutrophils % (Manual) Lymphocytes % 32.7 Lymphocytes % (Manual) Monocytes % 4.0 Monocytes % (Manual) Eosinophils % 0.5 D Eosinophils % (Manual) Basophils % 1.1 D Hypochromia Rare Platelet Estimate Adequate Anisocytosis 2+ Microcytosis 1+ Rouleaux 1+ ESR Retic Count PT with INR 11.40 INR 1.04 PTT (Actin FS) 29.1 VBG pH POC VBG pCO2 POC VBG pO2 Mixed VBG HCO3 Sodium 157 H D Potassium 4.1 Chloride 119 H D Carbon Dioxide 29 Anion Gap 9 BUN 104 H D Creatinine 1.3 H D Creat Clearance w eGFR 39.41 POC Glucometer Random Glucose 255 H D Lactic Acid Uric Acid Calcium 8.3 L Total Bilirubin 0.2 D AST 20 D ALT 19 D Alkaline Phosphatase 95 LD Total Creatine Kinase 61 Troponin I 0.11 H C-Reactive Protein Total Protein 7.4 Albumin 1.8 L Vitamin B12 Urine Color Urine Appearance Urine pH Ur Specific [place] Urine Protein Urine Glucose (UA) Urine Ketones Urine Blood Urine Nitrite Urine Bilirubin Urine Urobilinogen Urine RBC Urine WBC Ur Epithelial Cells Urine Bacteria Hyaline Casts Urine Mucus Urine Yeast Blood Type Antibody Screen Antibody Identification Direct Antiglob Test Crossmatch 12/08/16 12/08/16 12/08/16 02:00 02:25 02:40 WBC RBC Hgb Hct MCV MCH MCHC RDW Plt Count MPV Total Counted Neutrophils % Neutrophils % (Manual) Lymphocytes % Lymphocytes % (Manual) Monocytes % Monocytes % (Manual) Eosinophils % Eosinophils % (Manual) Basophils % Hypochromia Platelet Estimate Anisocytosis Microcytosis Rouleaux ESR Retic Count PT with INR INR PTT (Actin FS) VBG pH 7.38 POC VBG pCO2 54.7 H POC VBG pO2 46.1 D Mixed VBG HCO3 31.8 H Sodium Potassium Chloride Carbon Dioxide Anion Gap BUN Creatinine Creat Clearance w eGFR POC Glucometer Random Glucose Lactic Acid 2.1 H* Uric Acid Calcium Total Bilirubin AST ALT Alkaline Phosphatase LD Total Creatine Kinase Troponin I C-Reactive Protein Total Protein Albumin Vitamin B12 Urine Color Michelle Urine Appearance Turbid Urine pH 5.0 Ur Specific [place] 1.025 Urine Protein 2+ H Urine Glucose (UA) 1+ H Urine Ketones Negative Urine Blood 1+ H Urine Nitrite Negative Urine Bilirubin Negative Urine Urobilinogen Negative Urine RBC 88 Urine WBC 337 Ur Epithelial Cells Moderate Urine Bacteria Moderate Hyaline Casts 57 Urine Mucus Rare Urine Yeast Many Blood Type Antibody Screen Antibody Identification Direct Antiglob Test Crossmatch 12/08/16 12/08/16 12/10/16 10:45 12:29 09:30 WBC 10.1 H RBC 2.41 L Hgb 7.3 L D Hct 22.9 L D MCV 95.1 MCH 30.5 MCHC 32.0 RDW 21.0 H Plt Count 235 MPV 10.3 Total Counted 100 Neutrophils % Neutrophils % (Manual) 55 Lymphocytes % Lymphocytes % (Manual) 37 D Monocytes % Monocytes % (Manual) 6 Eosinophils % Eosinophils % (Manual) 1 Basophils % Hypochromia Platelet Estimate Anisocytosis Microcytosis Rouleaux ESR Retic Count PT with INR INR PTT (Actin FS) VBG pH POC VBG pCO2 POC VBG pO2 Mixed VBG HCO3 Sodium Potassium Chloride Carbon Dioxide Anion Gap BUN Creatinine Creat Clearance w eGFR POC Glucometer Random Glucose Lactic Acid Uric Acid Calcium Total Bilirubin AST ALT Alkaline Phosphatase LD Total Creatine Kinase Troponin I C-Reactive Protein Total Protein Albumin Vitamin B12 Urine Color Urine Appearance Urine pH Ur Specific [place] Urine Protein Urine Glucose (UA) Urine Ketones Urine Blood Urine Nitrite Urine Bilirubin Urine Urobilinogen Urine RBC Urine WBC Ur Epithelial Cells Urine Bacteria Hyaline Casts Urine Mucus Urine Yeast Blood Type O POSITIVE Antibody Screen Positive H Antibody Identification WARM AUTOIMMUNE HEMO ANEMIA Direct Antiglob Test Positive H Crossmatch See Detail See Detail 09/12/10/16 12/11/16 15:44 22:40 06:12 WBC RBC Hgb Hct MCV MCH MCHC RDW Plt Count MPV Total Counted Neutrophils % Neutrophils % (Manual) Lymphocytes % Lymphocytes % (Manual) Monocytes % Monocytes % (Manual) Eosinophils % Eosinophils % (Manual) Basophils % Hypochromia Platelet Estimate Anisocytosis Microcytosis Rouleaux ESR Retic Count PT with INR INR PTT (Actin FS) VBG pH POC VBG pCO2 POC VBG pO2 Mixed VBG HCO3 Sodium Potassium Chloride Carbon Dioxide Anion Gap BUN Creatinine Creat Clearance w eGFR POC Glucometer 127 143 238 Random Glucose Lactic Acid Uric Acid Calcium Total Bilirubin AST ALT Alkaline Phosphatase LD Total Creatine Kinase Troponin I C-Reactive Protein Total Protein Albumin Vitamin B12 Urine Color Urine Appearance Urine pH Ur Specific [place] Urine Protein Urine Glucose (UA) Urine Ketones Urine Blood Urine Nitrite Urine Bilirubin Urine Urobilinogen Urine RBC Urine WBC Ur Epithelial Cells Urine Bacteria Hyaline Casts Urine Mucus Urine Yeast Blood Type Antibody Screen Antibody Identification Direct Antiglob Test Crossmatch 12/11/16 12/11/16 12/11/16 07:55 07:55 07:55 WBC 9.4 RBC 2.70 L Hgb 8.3 L D Hct 25.4 L MCV 93.9 MCH 30.6 MCHC 32.5 RDW 21.6 H Plt Count 243 MPV 10.0 Total Counted Neutrophils % 62.2 Neutrophils % (Manual) Lymphocytes % 32.4 Lymphocytes % (Manual) Monocytes % 3.6 L Monocytes % (Manual) Eosinophils % 1.5 Eosinophils % (Manual) Basophils % 0.3 Hypochromia Platelet Estimate Anisocytosis Microcytosis Rouleaux ESR Retic Count PT with INR INR PTT (Actin FS) VBG pH POC VBG pCO2 POC VBG pO2 Mixed VBG HCO3 Sodium 151 H Potassium 4.2 Chloride 121 H Carbon Dioxide 25 Anion Gap 5 L BUN 67 H D Creatinine 0.8 Creat Clearance w eGFR > 60 POC Glucometer Random Glucose 233 H D Lactic Acid Uric Acid 5.5 D Calcium 7.6 L Total Bilirubin 0.3 D AST 12 L ALT 10 L D Alkaline Phosphatase 85 LD Total 146 Creatine Kinase Troponin I C-Reactive Protein 7.7 H D Total Protein 6.0 L Albumin 1.4 L Vitamin B12 870 Urine Color Urine Appearance Urine pH Ur Specific [place] Urine Protein Urine Glucose (UA) Urine Ketones Urine Blood Urine Nitrite Urine Bilirubin Urine Urobilinogen Urine RBC Urine WBC Ur Epithelial Cells Urine Bacteria Hyaline Casts Urine Mucus Urine Yeast Blood Type Antibody Screen Antibody Identification Direct Antiglob Test Crossmatch 12/11/16 07:55 WBC RBC Hgb Hct MCV MCH MCHC RDW Plt Count MPV Total Counted Neutrophils % Neutrophils % (Manual) Lymphocytes % Lymphocytes % (Manual) Monocytes % Monocytes % (Manual) Eosinophils % Eosinophils % (Manual) Basophils % Hypochromia Platelet Estimate Anisocytosis Microcytosis Rouleaux ESR 120 H Retic Count 1.24 D PT with INR INR PTT (Actin FS) VBG pH POC VBG pCO2 POC VBG pO2 Mixed VBG HCO3 Sodium Potassium Chloride Carbon Dioxide Anion Gap BUN Creatinine Creat Clearance w eGFR POC Glucometer Random Glucose Lactic Acid Uric Acid Calcium Total Bilirubin AST ALT Alkaline Phosphatase LD Total Creatine Kinase Troponin I C-Reactive Protein Total Protein Albumin Vitamin B12 Urine Color Urine Appearance Urine pH Ur Specific [place] Urine Protein Urine Glucose (UA) Urine Ketones Urine Blood Urine Nitrite Urine Bilirubin Urine Urobilinogen Urine RBC Urine WBC Ur Epithelial Cells Urine Bacteria Hyaline Casts Urine Mucus Urine Yeast Blood Type Antibody Screen Antibody Identification Direct Antiglob Test Crossmatch Assessment/Plan Sacral Decubitus Ulcer Infection UTI Severe Sepsis Lactic Acidosis LV Diastolic Dysfunction Mitral Regurgitation h/o Bilateral BKA HTN Dementia - ABX per ID - local wound care - IVF - aspiration precautions - VTE prophylaxis Dr Galeana
[2016-12-11] MEDS ORDERED: INSULIN (NOVOLOG) ASPART 100 UNITS/ML 10ML VIAL ONE ×2 (11:55→16:26)
[2016-12-11] MEDS: TIGECYCLINE 50 MG in DEXTROSE 5%-WATER - 100 ML IVPB SCH ×2 (11:58→21:58)
[2016-12-11] MEDS: DEXTROSE 5%-WATER - 1,000 ML IV SCH (12:25)
[2016-12-12] MEDS ORDERED: PT OWN MED DRAWER 7, Y5N ONE ×3 (06:17→22:13)
[2016-12-12] MEDS: ASCORBIC ACID 500 MG/5 ML UNIT DOSE CUP GT SCH ×3 (06:18→22:22)
[2016-12-12] MEDS: INSULIN DETEMIR 100 UNITS/ML MDV SQ SCH ×2 (06:21→22:21)
[2016-12-12] MEDS: INSULIN SLIDING SCALE (NOVOLOG) 1 VIAL SQ SCH ×5 (06:21→22:45)
[2016-12-12 08:36] LABS: BASOPHIL 0.2 % (0-2.0); EOSINOPHIL 1.3 % (0-4.5); MCH 29.9 pg (25.7-33.7); MCHC 31.9 g/dl (32.0-36.0); MEAN CELL VOLUME 93.8 fl (80-96); NEUTROPHILS 70.4 % (42.8-82.8); PLATELET COUNT 266 K/MM3 (134-434); RDW 21.4 % (11.6-15.6); WHITE BLOOD COUNT 10.5 K/mm3 (4.0-10.0)
[2016-12-12 09:05] LABS: ANION GAP 10 (8-16); CALCIUM 7.5 mg/dL (8.5-10.1); CO2 21 mmol/L (21-32); CREATININE 0.7 mg/dL (0.55-1.02); GLUCOSE,RANDOM 235 mg/dL (74-106); MAGNESIUM 2.2 mg/dL (1.8-2.4); PHOSPHOROUS 2.9 mg/dL (2.5-4.9)
[2016-12-12] MEDS: HEPARIN NA (PORCINE) 5,000 UNITS/ML 1ML VIAL SQ SCH ×2 (10:52→22:21)
[2016-12-12] MEDS: AMINO ACIDS/PROTEIN HYDROLYS 30 ML LIQUID.PKT GT SCH ×2 (10:52→16:59)
[2016-12-12] MEDS: TIGECYCLINE 50 MG in DEXTROSE 5%-WATER - 100 ML IVPB SCH ×2 (10:54→22:22)
[2016-12-12] MEDS: PANTOPRAZOLE SODIUM 40 MG in SODIUM CHLORIDE 100 ML IVPB SCH (10:55)
[2016-12-12] MEDS: ESCITALOPRAM OXALATE 5 MG/5 ML GT SCH (10:56)
--- NOTE | 2016-12-12 11:02 | PN ---
Progress Note (short form) - Note Progress Note: Awake in NAD on NC O2, saturation 96%. No acute events overnight,. S/P pRBCs transfusion. Intake & Output 12/09/16 12/10/16 12/11/16 12/12/16 23:59 23:59 23:59 23:59 Intake Total 3630 3980 2900 0 Output Total 500 1450 1050 300 Balance 3130 2530 1850 -300 Weight 102 lb 6 oz 105 lb 5 oz 107 lb 5 oz 110 lb Last Vital Signs Temp Pulse Resp BP Pulse Ox 97.8 F 77 18 112/60 96 12/12/16 08:00 12/12/16 10:52 12/12/16 08:00 12/12/16 08:00 12/12/16 10:52 Active Medications Acetaminophen (Tylenol Oral Solution -) 650 mg GT Q6H PRN PRN Reason: pain/fever Last Admin: 12/10/16 05:59 Dose: 650 mg Amino Acids (Prosource No Carb Liquid Pkt) 30 ml GT BID@0800,1730 [facility] Last Admin: 12/12/16 10:52 Dose: 30 ml Ascorbic Acid (Vitamin C Oral Solution -) 500 mg GT TID [facility] Last Admin: 12/12/16 06:18 Dose: 500 mg Escitalopram Oxalate (Lexapro Oral Solution -) 10 mg GT DAILY [facility] Last Admin: 12/12/16 10:56 Dose: 10 mg Heparin Sodium (Porcine) (Heparin -) 5,000 unit SQ BID [facility] Last Admin: 12/12/16 10:52 Dose: 5,000 unit Pantoprazole Sodium 40 mg/ (Sodium Chloride) 100 mls @ 200 mls/hr IVPB DAILY [facility] Last Admin: 12/12/16 10:55 Dose: 200 mls/hr Tigecycline 50 mg/ Dextrose 100 mls @ 100 mls/hr IVPB BID [facility] PRN Reason: Protocol Last Admin: 12/12/16 10:54 Dose: 100 mls/hr Dextrose (D5w -) 1,000 mls @ 84 mls/hr IV ASDIR [facility] Last Admin: 12/11/16 12:25 Dose: 84 mls/hr Insulin Aspart (Novolog Vial Sliding Scale -) 1 vial SQ ACHS [facility] PRN Reason: Protocol Last Admin: 12/12/16 06:21 Dose: 5 unit Insulin Detemir (Levemir Vial) 15 units SQ HS [facility] Last Admin: 12/11/16 21:58 Dose: 15 units Insulin Detemir (Levemir Vial) 10 units SQ AM [facility] Last Admin: 12/12/16 06:21 Dose: 10 units Constitutional: Yes: Awake, NAD Eyes: Yes: Conjunctiva Clear, EOM Intact HENT: Yes: Atraumatic, Normocephalic Neck: Yes: Supple, Trachea Midline Cardiovascular: Yes: Regular Rate and Rhythm Respiratory: Yes: Diminished at the bases Gastrointestinal: Yes: Normal Bowel Sounds, Soft. No: Tenderness Extremities: Yes: Other (bilateral BKA) Edema: No Laboratory Results - last 24 hr 12/11/16 12/11/16 12/11/16 11:48 16:30 21:56 WBC RBC Hgb Hct MCV MCH MCHC RDW Plt Count MPV Neutrophils % Lymphocytes % Monocytes % Eosinophils % Basophils % Sodium Potassium Chloride Carbon Dioxide Anion Gap BUN Creatinine POC Glucometer 256 238 241 Random Glucose Calcium Phosphorus Magnesium Stool Occult Blood 12/12/16 12/12/16 12/12/16 03:00 06:20 07:30 WBC 10.5 H RBC 2.88 L Hgb 8.6 L Hct 27.1 L MCV 93.8 MCH 29.9 MCHC 31.9 L RDW 21.4 H Plt Count 266 MPV 10.0 Neutrophils % 70.4 Lymphocytes % 25.2 D Monocytes % 2.9 L Eosinophils % 1.3 Basophils % 0.2 Sodium Potassium Chloride Carbon Dioxide Anion Gap BUN Creatinine POC Glucometer 257 Random Glucose Calcium Phosphorus Magnesium Stool Occult Blood Negative 12/12/16 07:30 WBC RBC Hgb Hct MCV MCH MCHC RDW Plt Count MPV Neutrophils % Lymphocytes % Monocytes % Eosinophils % Basophils % Sodium 144 Potassium 3.8 Chloride 113 H Carbon Dioxide 21 Anion Gap 10 BUN 53 H D Creatinine 0.7 POC Glucometer Random Glucose 235 H Calcium 7.5 L Phosphorus 2.9 Magnesium 2.2 Stool Occult Blood Assessment/Plan Sacral Decubitus Ulcer Infection UTI Severe Sepsis Lactic Acidosis LV Diastolic Dysfunction Mitral Regurgitation h/o Bilateral BKA HTN Dementia - ABX per ID - local wound care - IVF - aspiration precautions - VTE prophylaxis Dr Galeana
--- NOTE | 2016-12-12 12:51 | PN ---
Progress Note, Physician Chief Complaint: ASLEEP COMFORTABLE - Current Medication List Current Medications: Active Medications Acetaminophen (Tylenol Oral Solution -) 650 mg GT Q6H PRN PRN Reason: pain/fever Last Admin: 12/10/16 05:59 Dose: 650 mg Amino Acids (Prosource No Carb Liquid Pkt) 30 ml GT BID@0800,1730 [facility] Last Admin: 12/12/16 10:52 Dose: 30 ml Ascorbic Acid (Vitamin C Oral Solution -) 500 mg GT TID [facility] Last Admin: 12/12/16 06:18 Dose: 500 mg Escitalopram Oxalate (Lexapro Oral Solution -) 10 mg GT DAILY [facility] Last Admin: 12/12/16 10:56 Dose: 10 mg Heparin Sodium (Porcine) (Heparin -) 5,000 unit SQ BID [facility] Last Admin: 12/12/16 10:52 Dose: 5,000 unit Pantoprazole Sodium 40 mg/ (Sodium Chloride) 100 mls @ 200 mls/hr IVPB DAILY [facility] Last Admin: 12/12/16 10:55 Dose: 200 mls/hr Tigecycline 50 mg/ Dextrose 100 mls @ 100 mls/hr IVPB BID [facility] PRN Reason: Protocol Last Admin: 12/12/16 10:54 Dose: 100 mls/hr Dextrose (D5w -) 1,000 mls @ 84 mls/hr IV ASDIR [facility] Last Admin: 12/11/16 12:25 Dose: 84 mls/hr Insulin Aspart (Novolog Vial Sliding Scale -) 1 vial SQ ACHS [facility] PRN Reason: Protocol Last Admin: 12/12/16 11:27 Dose: Not Given Insulin Detemir (Levemir Vial) 15 units SQ HS [facility] Last Admin: 12/11/16 21:58 Dose: 15 units Insulin Detemir (Levemir Vial) 10 units SQ AM [facility] Last Admin: 12/12/16 06:21 Dose: 10 units - Objective Vital Signs: Vital Signs Temperature 97.8 F 12/12/16 08:00 Pulse Rate 77 12/12/16 10:52 Respiratory Rate 18 12/12/16 08:00 Blood Pressure 112/60 12/12/16 08:00 O2 Sat by Pulse Oximetry (%) 96 12/12/16 10:52 Constitutional: Yes: No Distress Eyes: Yes: WNL HENT: Yes: WNL Neck: Yes: WNL Cardiovascular: Yes: WNL Respiratory: Yes: WNL Gastrointestinal: Yes: WNL Genitourinary: Yes: Incontinence Musculoskeletal: Yes: Muscle Weakness Extremities: Yes: Amputation Edema: No Peripheral Pulses WNL: Yes Integumentary: Yes: WNL Wound/Incision: Yes: Clean/Dry Neurological: Yes: Pre-Existing Deficit ...Motor Strength: LLE, RLE Psychiatric: Yes: Other Labs: CBC, BMP 12/12/16 07:30 12/12/16 07:30 INR, PTT INR 1.04 (0.82-1.09) 12/08/16 02:00 Problem List - Problems (1) Acute kidney injury superimposed on CKD Code(s): N17.9 - ACUTE KIDNEY FAILURE, UNSPECIFIED N18.9 - CHRONIC KIDNEY DISEASE, UNSPECIFIED (2) Anemia Code(s): D64.9 - ANEMIA, UNSPECIFIED Qualifiers: Anemia type: iron deficiency Iron deficiency anemia type: unspecified iron deficiency Qualified Code(s): D50.9 - Iron deficiency anemia, unspecified (3) Diabetes 1.5, managed as type 2 Code(s): E10.9 - TYPE 1 DIABETES MELLITUS WITHOUT COMPLICATIONS (4) Fever Code(s): R50.9 - FEVER, UNSPECIFIED (5) Sacral decubitus ulcer, stage III Code(s): L89.153 - PRESSURE ULCER OF SACRAL REGION, STAGE 3 Assessment/Plan MULTIPLE MEDICAL DISEASES WITH LONG HISTORY OF SEPSIS URINARY AND RESP. S/P AKA LEGS B/L NOW DNR WOUND CARE IVF IV ABX PER ID
--- NOTE | 2016-12-12 13:08 | PN ---
Progress Note (short form) - Note Progress Note: awake trying to speak no fevers Vital Signs Period Temp Pulse Resp BP Sys/Chávez Pulse Ox Last 24 Hr 97.8 F-99.0 F 73-79 18-22 112-133/58-71 96-99 cor-rrr lungs decreased bs at bases abd soft,nt +GT ext bilateral bka CBC, BMP 12/12/16 07:30 12/12/16 07:30 Microbiology 12/08/16 02:05 Blood - Peripheral Venous Blood Culture - Preliminary NO GROWTH OBTAINED AFTER 96 HOURS, INCUBATION TO CONTINUE FOR 1 DAYS. 12/08/16 02:00 Blood - Peripheral Venous Blood Culture - Preliminary NO GROWTH OBTAINED AFTER 96 HOURS, INCUBATION TO CONTINUE FOR 1 DAYS. 12/08/16 02:40 Urine - Urine Gonzales Urine Culture - Final Contaminated: Please Repeat 12/09/16 04:00 Urine For Antigen Detection Legionella Antigen - Final 12/09/16 04:00 Urine For Antigen Detection Streptococcus pneumoniae Antigen (M - Final 12/08/16 12:30 Stool Clostridium difficile Antigen (JAKY) - Final 12/08/16 12:30 Stool Clostridium difficile Toxin Assay - Final cxray RLL infiltrate a/p fevers- repeat cxray- ?pneumonia, ?decub continue tygacil day #4 now afebrile clinically improved history of prior multidrug resistant organisms sepsis- ?decub, ?urine local care to decub ulcer bilateral BKA strict contact isolation overall prognosis is grim Problem List - Problems (1) Severe sepsis Code(s): A41.9 - SEPSIS, UNSPECIFIED ORGANISM R65.20 - SEVERE SEPSIS WITHOUT SEPTIC SHOCK (2) C. difficile diarrhea Code(s): A04.7 - ENTEROCOLITIS DUE TO CLOSTRIDIUM DIFFICILE (3) UTI (urinary tract infection) Code(s): N39.0 - URINARY TRACT INFECTION, SITE NOT SPECIFIED Qualifiers: Urinary tract infection type: acute cystitis Hematuria presence: without hematuria Qualified Code(s): N30.00 - Acute cystitis without hematuria (4) Pneumonia Code(s): J18.9 - PNEUMONIA, UNSPECIFIED ORGANISM Qualifiers: Pneumonia type: due to unspecified organism Laterality: left Lung location: lower lobe of lung Qualified Code(s): J18.1 - Lobar pneumonia, unspecified organism (5) Sacral decubitus ulcer, stage III Code(s): L89.153 - PRESSURE ULCER OF SACRAL REGION, STAGE 3 (6) Acute kidney injury superimposed on CKD Code(s): N17.9 - ACUTE KIDNEY FAILURE, UNSPECIFIED N18.9 - CHRONIC KIDNEY DISEASE, UNSPECIFIED (7) Drug (multiple) resistant infection Code(s): 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
[2016-12-12] MEDS: DEXTROSE 5%-WATER - 1,000 ML IV SCH (13:47)
[2016-12-12] MEDS ORDERED: INSULIN (NOVOLOG) ASPART 100 UNITS/ML 10ML VIAL ONE (22:24)
[2016-12-13 00:10] LABS: HAPTOGLOBIN 284 mg/dL (34-200)
[2016-12-13] MEDS: INSULIN DETEMIR 100 UNITS/ML MDV SQ SCH (06:21)
[2016-12-13] MEDS: INSULIN SLIDING SCALE (NOVOLOG) 1 VIAL SQ SCH ×2 (06:22→11:30)
[2016-12-13] MEDS: ASCORBIC ACID 500 MG/5 ML UNIT DOSE CUP GT SCH ×2 (06:23→14:34)
[2016-12-13] MEDS: DEXTROSE 5%-WATER - 1,000 ML IV SCH (06:30)
[2016-12-13] MEDS ORDERED: PT OWN MED DRAWER 7, Y5N ONE (08:54)
[2016-12-13] MEDS: HEPARIN NA (PORCINE) 5,000 UNITS/ML 1ML VIAL SQ SCH (09:16)
[2016-12-13] MEDS: AMINO ACIDS/PROTEIN HYDROLYS 30 ML LIQUID.PKT GT SCH (09:16)
[2016-12-13] MEDS: ESCITALOPRAM OXALATE 5 MG/5 ML GT SCH (09:17)
[2016-12-13] MEDS: PANTOPRAZOLE SODIUM 40 MG in SODIUM CHLORIDE 100 ML IVPB SCH (09:17)
[2016-12-13] MEDS: TIGECYCLINE 50 MG in DEXTROSE 5%-WATER - 100 ML IVPB SCH (09:48)
--- NOTE | 2016-12-13 10:56 | PN ---
Progress Note (short form) - Note Progress Note: awake trying to speak no fevers Vital Signs Period Temp Pulse Resp BP Sys/Chávez Pulse Ox Last 24 Hr 97.5 F-99.3 F 75-84 20-36 111-138/49-66 96-96 cor-rrr lungs clear, decreased bs at bases abd soft,nt, GT ext bilateral BKA CBC, BMP 12/12/16 07:30 12/12/16 07:30 Microbiology 12/08/16 02:05 Blood - Peripheral Venous Blood Culture - Final NO GROWTH AFTER 5 DAYS INCUBATION 12/08/16 02:00 Blood - Peripheral Venous Blood Culture - Final NO GROWTH AFTER 5 DAYS INCUBATION 12/08/16 02:40 Urine - Urine Gonzales Urine Culture - Final Contaminated: Please Repeat 12/09/16 04:00 Urine For Antigen Detection Legionella Antigen - Final 12/09/16 04:00 Urine For Antigen Detection Streptococcus pneumoniae Antigen (M - Final 12/08/16 12:30 Stool Clostridium difficile Antigen (JAKY) - Final 12/08/16 12:30 Stool Clostridium difficile Toxin Assay - Final Current Medications Acetaminophen (Tylenol Oral Solution -) 650 mg GT Q6H PRN PRN Reason: pain/fever Last Admin: 12/10/16 05:59 Dose: 650 mg Amino Acids (Prosource No Carb Liquid Pkt) 30 ml GT BID@0800,1730 [facility] Last Admin: 12/13/16 09:16 Dose: 30 ml Ascorbic Acid (Vitamin C Oral Solution -) 500 mg GT TID [facility] Last Admin: 12/13/16 06:23 Dose: 500 mg Escitalopram Oxalate (Lexapro Oral Solution -) 10 mg GT DAILY [facility] Last Admin: 12/13/16 09:17 Dose: 10 mg Heparin Sodium (Porcine) (Heparin -) 5,000 unit SQ BID [facility] Last Admin: 12/13/16 09:16 Dose: 5,000 unit Pantoprazole Sodium 40 mg/ (Sodium Chloride) 100 mls @ 200 mls/hr IVPB DAILY [facility] Last Admin: 12/13/16 09:17 Dose: 200 mls/hr Tigecycline 50 mg/ Dextrose 100 mls @ 100 mls/hr IVPB BID [facility] PRN Reason: Protocol Last Admin: 12/13/16 09:48 Dose: 100 mls/hr Dextrose (D5w -) 1,000 mls @ 84 mls/hr IV ASDIR [facility] Last Admin: 12/13/16 06:30 Dose: 84 mls/hr Insulin Aspart (Novolog Vial Sliding Scale -) 1 vial SQ ACHS [facility] PRN Reason: Protocol Last Admin: 12/13/16 06:22 Dose: 7 unit Insulin Detemir (Levemir Vial) 15 units SQ HS [facility] Last Admin: 12/12/16 22:21 Dose: 15 units Insulin Detemir (Levemir Vial) 10 units SQ AM [facility] Last Admin: 12/13/16 06:21 Dose: 10 units cxray RLL infiltrate a/p fevers- repeat cxray- ?pneumonia, ?decub continue tygacil day #5-plan to complete 7 days could do via peripheral line at NE if NE permits now afebrile clinically improved history of prior multidrug resistant organisms sepsis- ?decub, ?urine local care to decub ulcer bilateral BKA strict contact isolation overall prognosis is grim d/w PMD Problem List - Problems (1) Severe sepsis Code(s): A41.9 - SEPSIS, UNSPECIFIED ORGANISM R65.20 - SEVERE SEPSIS WITHOUT SEPTIC SHOCK (2) C. difficile diarrhea Code(s): A04.7 - ENTEROCOLITIS DUE TO CLOSTRIDIUM DIFFICILE (3) UTI (urinary tract infection) Code(s): N39.0 - URINARY TRACT INFECTION, SITE NOT SPECIFIED Qualifiers: Urinary tract infection type: acute cystitis Hematuria presence: without hematuria Qualified Code(s): N30.00 - Acute cystitis without hematuria (4) Pneumonia Code(s): J18.9 - PNEUMONIA, UNSPECIFIED ORGANISM Qualifiers: Pneumonia type: due to unspecified organism Laterality: left Lung location: lower lobe of lung Qualified Code(s): J18.1 - Lobar pneumonia, unspecified organism (5) Sacral decubitus ulcer, stage III Code(s): L89.153 - PRESSURE ULCER OF SACRAL REGION, STAGE 3 (6) Acute kidney injury superimposed on CKD Code(s): N17.9 - ACUTE KIDNEY FAILURE, UNSPECIFIED N18.9 - CHRONIC KIDNEY DISEASE, UNSPECIFIED (7) Drug (multiple) resistant infection Code(s): 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
[2016-12-13] MEDS ORDERED: INSULIN (NOVOLOG) ASPART 100 UNITS/ML 10ML VIAL ONE (12:02)
--- NOTE | 2016-12-13 12:06 | PN ---
Progress Note, Physician Chief Complaint: Sepsis, Stage 4 decubitus Ulcer History of Present Illness: on IV abx Chronic decubitus ulcer seen by ID - Current Medication List Current Medications: Active Medications Acetaminophen (Tylenol Oral Solution -) 650 mg GT Q6H PRN PRN Reason: pain/fever Last Admin: 12/10/16 05:59 Dose: 650 mg Amino Acids (Prosource No Carb Liquid Pkt) 30 ml GT BID@0800,1730 [facility] Last Admin: 12/13/16 09:16 Dose: 30 ml Ascorbic Acid (Vitamin C Oral Solution -) 500 mg GT TID [facility] Last Admin: 12/13/16 06:23 Dose: 500 mg Escitalopram Oxalate (Lexapro Oral Solution -) 10 mg GT DAILY [facility] Last Admin: 12/13/16 09:17 Dose: 10 mg Heparin Sodium (Porcine) (Heparin -) 5,000 unit SQ BID [facility] Last Admin: 12/13/16 09:16 Dose: 5,000 unit Pantoprazole Sodium 40 mg/ (Sodium Chloride) 100 mls @ 200 mls/hr IVPB DAILY [facility] Last Admin: 12/13/16 09:17 Dose: 200 mls/hr Tigecycline 50 mg/ Dextrose 100 mls @ 100 mls/hr IVPB BID [facility] PRN Reason: Protocol Last Admin: 12/13/16 09:48 Dose: 100 mls/hr Dextrose (D5w -) 1,000 mls @ 84 mls/hr IV ASDIR [facility] Last Admin: 12/13/16 06:30 Dose: 84 mls/hr Insulin Aspart (Novolog Vial Sliding Scale -) 1 vial SQ ACHS [facility] PRN Reason: Protocol Last Admin: 12/13/16 11:30 Dose: 2 unit Insulin Detemir (Levemir Vial) 15 units SQ HS [facility] Last Admin: 12/12/16 22:21 Dose: 15 units Insulin Detemir (Levemir Vial) 10 units SQ AM [facility] Last Admin: 12/13/16 06:21 Dose: 10 units - Objective Vital Signs: Vital Signs Temperature 98.5 F 12/13/16 05:00 Pulse Rate 82 12/13/16 05:00 Respiratory Rate 30 H 12/13/16 05:00 Blood Pressure 111/49 12/13/16 05:00 O2 Sat by Pulse Oximetry (%) 96 12/12/16 21:00 Constitutional: Yes: Well Nourished, No Distress, Calm Cardiovascular: Yes: Regular Rate and Rhythm Respiratory: Yes: Regular Extremities: Yes: Amputation (BLLE) Neurological: Yes: Alert (opens eyes to name), Pre-Existing Deficit Labs: CBC, BMP 12/12/16 07:30 12/12/16 07:30 INR, PTT INR 1.04 (0.82-1.09) 12/08/16 02:00 Problem List - Problems (1) Fever Assessment/Plan: -afebrile past 24 hours -responding well to IV tigecycline Code(s): R50.9 - FEVER, UNSPECIFIED (2) Decubitus ulcer Assessment/Plan: Chronic, multiple Stage 4 on the sacrum, draining serosanguineus fluid -previous cultures showed ESBL -has been seen by Vascular and ID Code(s): L89.90 - PRESSURE ULCER OF UNSPECIFIED SITE, UNSPECIFIED STAGE Qualifiers: Pressure ulcer location: buttock (3) Functional quadriplegia Code(s): R53.2 - FUNCTIONAL QUADRIPLEGIA (4) Hypotension Assessment/Plan: -IVF -Improved Code(s): I95.9 - HYPOTENSION, UNSPECIFIED (5) Systemic inflammatory response syndrome (SIRS) Code(s): R65.10 - SIRS OF NON-INFECTIOUS ORIGIN W/O ACUTE ORGAN DYSFUNCTION (6) Acute kidney injury superimposed on CKD Assessment/Plan: -Renal on board -IVF -BUN improved Code(s): N17.9 - ACUTE KIDNEY FAILURE, UNSPECIFIED N18.9 - CHRONIC KIDNEY DISEASE, UNSPECIFIED (7) Anemia Assessment/Plan: -Chronic -was Iron deficient, which improved -B 12 is okay -received PRBC this admission -h/h stable at this time. Code(s): D64.9 - ANEMIA, UNSPECIFIED Qualifiers: Anemia type: iron deficiency Iron deficiency anemia type: unspecified iron deficiency Qualified Code(s): D50.9 - Iron deficiency anemia, unspecified Assessment/Plan -extremely poor overall prognosis -decreased quality of life -DNR -DVT prophylaxis -IV abx -IVF -awaiting response from [facility], if she could receive IV abx through peripheral IV at [facility], she is okay to be discharged from the hospital.
--- NOTE | 2016-12-13 12:13 | PN ---
Progress Note (short form) - Note Progress Note: PULMONARY Pt nonverbal, no fevers recorded. Last Vital Signs Temp Pulse Resp BP Pulse Ox 98.5 F 82 30 H 111/49 96 12/13/16 05:00 12/13/16 05:00 12/13/16 05:00 12/13/16 05:00 12/12/16 21:00 Gen: awake, breathing nonlabored Heart: RRR Lung: decreased breath sounds at the bases Abd: soft, nontender Ext: bilateral BKA CBC, BMP 12/12/16 07:30 12/12/16 07:30 Active Medications Acetaminophen (Tylenol Oral Solution -) 650 mg GT Q6H PRN PRN Reason: pain/fever Last Admin: 12/10/16 05:59 Dose: 650 mg Amino Acids (Prosource No Carb Liquid Pkt) 30 ml GT BID@0800,1730 [facility] Last Admin: 12/13/16 09:16 Dose: 30 ml Ascorbic Acid (Vitamin C Oral Solution -) 500 mg GT TID [facility] Last Admin: 12/13/16 06:23 Dose: 500 mg Escitalopram Oxalate (Lexapro Oral Solution -) 10 mg GT DAILY [facility] Last Admin: 12/13/16 09:17 Dose: 10 mg Heparin Sodium (Porcine) (Heparin -) 5,000 unit SQ BID [facility] Last Admin: 12/13/16 09:16 Dose: 5,000 unit Pantoprazole Sodium 40 mg/ (Sodium Chloride) 100 mls @ 200 mls/hr IVPB DAILY [facility] Last Admin: 12/13/16 09:17 Dose: 200 mls/hr Tigecycline 50 mg/ Dextrose 100 mls @ 100 mls/hr IVPB BID [facility] PRN Reason: Protocol Last Admin: 12/13/16 09:48 Dose: 100 mls/hr Dextrose (D5w -) 1,000 mls @ 84 mls/hr IV ASDIR [facility] Last Admin: 12/13/16 06:30 Dose: 84 mls/hr Insulin Aspart (Novolog Vial Sliding Scale -) 1 vial SQ ACHS [facility] PRN Reason: Protocol Last Admin: 12/13/16 11:30 Dose: 2 unit Insulin Detemir (Levemir Vial) 15 units SQ HS [facility] Last Admin: 12/12/16 22:21 Dose: 15 units Insulin Detemir (Levemir Vial) 10 units SQ AM [facility] Last Admin: 12/13/16 06:21 Dose: 10 units A/P Sacral Decubitus Ulcer Infection UTI Severe Sepsis improving Lactic Acidosis resolved LV Diastolic Dysfunction Mitral Regurgitation h/o Bilateral BKA HTN Dementia - antibiotics per ID - wound care - IVF - aspiration precautions - monitor urine output, creatinine - DVT prophylaxis
--- NOTE | 2016-12-13 12:29 | DS ---
Physical Examination Vital Signs: Vital Signs Temperature 98.5 F 12/13/16 05:00 Pulse Rate 82 12/13/16 05:00 Respiratory Rate 30 H 12/13/16 05:00 Blood Pressure 111/49 12/13/16 05:00 O2 Sat by Pulse Oximetry (%) 96 12/12/16 21:00 Constitutional: Yes: Well Nourished, No Distress, Calm Cardiovascular: Yes: Regular Rate and Rhythm Respiratory: Yes: Regular Gastrointestinal: Yes: Normal Bowel Sounds Renal/: Yes: Gonzales Present (Chronic, to promote healing of decubitus ulcer) Extremities: Yes: Amputation (BLLE) Edema: No Neurological: Yes: Alert, Pre-Existing Deficit Labs: CBC, BMP 12/12/16 07:30 12/12/16 07:30 Discharge Summary Reason For Visit: SEVERE SEPSIS Current Active Problems Acute kidney injury superimposed on CKD (Acute) Anemia (Acute) C. difficile diarrhea (Acute) Diabetes 1.5, managed as type 2 (Acute) Fever (Acute) Hyperkalemia (Acute) Sacral decubitus ulcer, stage III (Acute) Severe sepsis (Acute) Warm antibody hemolytic anemia (Acute) Hospital Course: Ms. Barnard, 81 year old female with multiple past admmisions for similar diagnosis came in to [facility] ER with symptoms of sepsis, hypotension, febrile, tachycardia and decreased level of consciousness. Upon evaluation she was also found to have left lower lobe infiltrates. During her stay she was treated with IV fluids, IV antibiotic tigecycline due to her history of ESBL in the chronic Stage 4 decubitus ulcer and she also received 1 units of packed red blood cell due to drop in her hemoglobin below 8.0 secondary to Anemia of chronic disease. She was evaluated by Infectious disease, Nephrology, pulmonary and registered client associate. Her feeding Nepro was adjusted to 38 cc/hour with 45 cc of H20/hour. Condition: Guarded - Instructions Diet, Activity, Other Instructions: -Nepro TF to 38mls/hr, plus, Prosource BID to provide 1762 cals, 104 gms pro, and free fluid from TF and pump flushes 45mls/hr -She will need 3 more doses of Tigecycline 50 mg IVPB through her peripheral IV. One dose tonight and 2 doses/day for next 2 days. -maintain Gonzales catheter. Referrals: Rashawn Garcia MD [Primary Care Provider] - Disposition: HALF-WAY FACILITY - Home Medications Comprehensive Discharge Medication List: Ambulatory Orders Acetaminophen Oral Solution [Tylenol Oral Solution -] 650 mg GT Q6H PRN Ceftriaxone Na/Dextrose,Iso [Ceftriaxone 1 gm-D5w Bag] 1 gm IV DAILY 12/08/16 Doxazosin Mesylate [Cardura] 2 mg GT DAILY 12/08/16 Escitalopram Oxalate [Lexapro Oral Solution -] 10 mg GT DAILY 12/08/16 FENTANYL 12mcg PATCH [DURAGESIC 12mcg PATCH -] 1 each TD Q72H 12/08/16 Ferrous Sulfate *Liquid* [Feosol] 330 mg GT TID 12/08/16 Heparin - 5,000 units IJ BID 12/08/16 Insulin Aspart [Novolog] 0 unit SQ TID 12/08/16 Insulin Detemir [Levemir Flextouch] 18 unit SQ HS 12/08/16 Insulin Detemir [Levemir Flextouch] 25 unit SQ DAILY 12/08/16 Lactobacillus Acidophilus [Acidophilus] 1 each GT DAILY 12/08/16 Naph,Mb-Db/K pH,Mbdb [PHOS-NaK PACKET -] 1 packet GT DAILY 12/08/16 Ranitidine HCl 150 mg GT DAILY 12/08/16 Vit C/Ascorbate Calcium,Sodium [Vitamin C 500 mg/15 ml Liquid] 500 mg GT Q8H Vitamin B Comp W-C [Nephro-Rafael -] 1 tablet GT DAILY 12/08/16
[2016-12-13 14:27] VITALS: BP 114/60; PULSE 81; TEMP 98.9
--- NOTE | 2016-12-13 16:48 | PN ---
Progress Note (short form) - Note Progress Note: Nephrology follow up for Hypernatremia Pt seen and examined at the bedside no overnight events on D5W pt lethargic but arouseable, pt awake this morning as per nurse Vital Signs Temperature 98.9 F 12/13/16 14:26 Pulse Rate 81 12/13/16 14:26 Respiratory Rate 24 12/13/16 14:26 Blood Pressure 114/60 12/13/16 14:26 O2 Sat by Pulse Oximetry (%) 96 12/12/16 21:00 Intake & Output 12/10/16 12/11/16 12/12/16 12/13/16 23:59 23:59 23:59 23:59 Intake Total 3980 2900 1940 1890 Output Total 1450 1050 1000 775 Balance 2530 7920 909 1529 Weight 105 lb 5 oz 107 lb 5 oz 110 lb 109 lb 12.8 oz Gen: NAD, awake but no verbal HEENT: Dry MM CVS: RRR, + murmur Lungs: Dec Bs at lung bases (anterior exam) Abd: Soft NT/ND Ext: no edema, clubbing or cyanosis Neuro: AAOx3, no focal defects CBC, BMP 12/12/16 07:30 12/12/16 07:30 Current Medications Acetaminophen (Tylenol Oral Solution -) 650 mg GT Q6H PRN PRN Reason: pain/fever Last Admin: 12/10/16 05:59 Dose: 650 mg Amino Acids (Prosource No Carb Liquid Pkt) 30 ml GT BID@0800,1730 [facility] Last Admin: 12/13/16 09:16 Dose: 30 ml Ascorbic Acid (Vitamin C Oral Solution -) 500 mg GT TID [facility] Last Admin: 12/13/16 14:34 Dose: 500 mg Escitalopram Oxalate (Lexapro Oral Solution -) 10 mg GT DAILY [facility] Last Admin: 12/13/16 09:17 Dose: 10 mg Heparin Sodium (Porcine) (Heparin -) 5,000 unit SQ BID [facility] Last Admin: 12/13/16 09:16 Dose: 5,000 unit Pantoprazole Sodium 40 mg/ (Sodium Chloride) 100 mls @ 200 mls/hr IVPB DAILY [facility] Last Admin: 12/13/16 09:17 Dose: 200 mls/hr Tigecycline 50 mg/ Dextrose 100 mls @ 100 mls/hr IVPB BID [facility] PRN Reason: Protocol Last Admin: 12/13/16 09:48 Dose: 100 mls/hr Insulin Aspart (Novolog Vial Sliding Scale -) 1 vial SQ ACHS [facility] PRN Reason: Protocol Last Admin: 12/13/16 11:30 Dose: 2 unit Insulin Detemir (Levemir Vial) 15 units SQ HS [facility] Last Admin: 12/12/16 22:21 Dose: 15 units Insulin Detemir (Levemir Vial) 10 units SQ AM [facility] Last Admin: 12/13/16 06:21 Dose: 10 units A/P 81 year old woman well known to our service with hx of dementia, PVD s/p b/l BKA , Hypertension, HLD, GERD, Sacral decubitis ulcers who presented from [place] with AMS and found to be be hypernatremia and with GIANNI. #Acute Renal Failure Cr improved to baseline BUN remains high, improving continue Free water can d/c IVF #Hypernatremia Na now WNL will need to be maintained on at least 2200cc of free water daily Vahid Manzano DO
[2016-12-14 00:09] LABS: A/G RATIO 0.5 (0.7-1.7); ALBUMIN 1.7 g/dL (2.9-4.4); ALPHA-1-GLOBULIN 0.3 g/dL (0.0-0.4); BETA GLOBULIN 0.7 g/dL (0.7-1.3); GAMMA GLOBULIN 2.4 g/dL (0.4-1.8); GLOBULIN, TOTAL 4.2 g/dL (2.2-3.9); M-SPIKE Not Observed g/dL (Not Observed); TOTAL PROTEIN 5.9 g/dL (6.0-8.5)
== END 2016-12-13 18:42 | DRG 871 ==
LOC: JER 01:36 → JERBED 02:26 → UNDOADMIN 03:16 → JERBED 03:16 → J6S 17:57
PROVIDERS: ADMIT Family Medicine; ATTEND Family Medicine
PROC: 3E0G76Z Introduction of Nutritional Substance into Upper GI, Via Natural or Artificial Opening (ICD-10-PCS; principal; 2016-12-08)
DX: A41.9 Sepsis, unspecified organism (principal); J18.9 Pneumonia, unspecified organism; R53.2 Functional quadriplegia; L89.154 Pressure ulcer of sacral region, stage 4; N17.9 Acute kidney failure, unspecified; R64 Cachexia; E87.2 Acidosis; I13.0 Hypertensive heart and chronic kidney disease with heart failure and stage 1 through stage 4 chronic kidney disease, or unspecified chronic kidney disease; I50.32 Chronic diastolic (congestive) heart failure; N39.0 Urinary tract infection, site not specified; E87.0 Hyperosmolality and hypernatremia; R65.20 Severe sepsis without septic shock; F03.90 Unspecified dementia, unspecified severity, without behavioral disturbance, psychotic disturbance, mood disturbance, and anxiety; Z93.1 Gastrostomy status; Z86.73 Personal history of transient ischemic attack (TIA), and cerebral infarction without residual deficits; E78.5 Hyperlipidemia, unspecified; I35.0 Nonrheumatic aortic (valve) stenosis; Z89.512 Acquired absence of left leg below knee; Z89.511 Acquired absence of right leg below knee; Z79.4 Long term (current) use of insulin; Z16.35 Resistance to multiple antimicrobial drugs; F41.9 Anxiety disorder, unspecified; F32.9 Major depressive disorder, single episode, unspecified; I34.0 Nonrheumatic mitral (valve) insufficiency; N18.9 Chronic kidney disease, unspecified; E11.22 Type 2 diabetes mellitus with diabetic chronic kidney disease; E87.5 Hyperkalemia; E11.65 Type 2 diabetes mellitus with hyperglycemia; D50.9 Iron deficiency anemia, unspecified; Z74.01 Bed confinement status
CPT/HCPCS: 36415; 36430; 71010-TC; 76775-TC; 80048; 80053; 81003; 81015; 82272; 82607; 82728; 82784; 82803; 83010; 83036; 83540; 83550; 83605; 83615; 83735; 84100; 84155; 84165; 84484; 84550; 85025; 85044; 85610; 85651; 85730; 86140; 86334; 86850; 86870; 86880; 86900; 86901; 86902; 86922; 87040; 87086; 87324; 87449; 87899; 93005; 93010; 99285-25; J0878; J1644; J3243; P9038; P9058

== ENCOUNTER 2016-12-21 14:26 | Inpatient (IN) | payer OTHER ==
--- NOTE | 2016-12-21 14:44 | PDOC ---
History of Present Illness <Cortez Harris - Last Filed: 12/21/16 14:58> - History of Present Illness Initial Comments: 12/21/16 15:44 81 y/o F with a PMHx of anemia, CVA, CHF, IDDM, HTN, HLD, acute kidney failure, thyroid disease, anxiety, agitation, depression presents to the ED from [facility] with fever. Patient is nonverbal. At [facility], temperature was noted to be 101.8. Patient has a sacral pressure ulcer with a wound vac. History is provided by [place] records. PCP: Dr. Rashawn Garcia <Mary Lara - Last Filed: 12/21/16 15:46> - General Stated Complaint: FEVER Past History - Past Medical History Anemia: Yes CVA: Yes CHF: Yes Dementia: Yes Diabetes: Yes (IDDM) GI Disorders: Yes HTN: Yes Hypercholesterolemia: Yes Kidney Stones: No (acute kidney failure) Psychiatric Problems: Yes (anxeity,agitation,depression) Thyroid Disease: Yes - Surgical History Abdominal Surgery: Yes (G-Tube PLACEMENT.) - Reproductive History Ectopic : No Polycystic Ovaries: No - Suicide/Smoking/Psychosocial Hx Smoking Status: No Smoking History: Never smoked Have you smoked in the past 12 months: No Number of Cigarettes Smoked Daily: 0 Hx Alcohol Use: No Drug/Substance Use Hx: No Substance Use Type: None Hx Substance Use Treatment: No <Cortez Harris - Last Filed: 12/21/16 14:58> <Mary Lara - Last Filed: 12/21/16 15:46> - Past Medical History Allergies/Adverse Reactions: Allergies Allergy/AdvReac Type Severity Reaction Status Date / Time No Known Drug Allergies Allergy Verified 12/08/16 03:39 Home Medications: Ambulatory Orders Acetaminophen Oral Solution [Tylenol 160mg/5mL Oral Solution -] 650 mg GT Q6H PRN 12/08/16 Ceftriaxone Na/Dextrose,Iso [Ceftriaxone 1 gm-D5w Bag] 1 gm IV DAILY 12/08/16 Doxazosin Mesylate [Cardura] 2 mg GT DAILY 12/08/16 Escitalopram Oxalate [Lexapro 5mg/5mL Oral Solution -] 10 mg GT DAILY 12/08/16 FENTANYL 12mcg PATCH [DURAGESIC 12mcg PATCH -] 1 each TD Q72H 12/08/16 Ferrous Sulfate *Liquid* [Feosol *Liquid*] 330 mg GT TID 12/08/16 Heparin - 5,000 units IJ BID 12/08/16 Insulin Aspart [Novolog Flexpen] 0 unit SQ TID 12/08/16 Insulin Detemir [Levemir Flextouch] 18 unit SQ HS 12/08/16 Insulin Detemir [Levemir Flextouch] 25 unit SQ DAILY 12/08/16 Lactobacillus Acidophilus [Acidophilus] 1 each GT DAILY 12/08/16 Naph,Mb-Db/K pH,Mbdb [PHOS-NaK PACKET -] 1 packet GT DAILY 12/08/16 Ranitidine HCl 150 mg GT DAILY 12/08/16 Vit C/Ascorbate Calcium,Sodium [Vitamin C 500 mg/15 ml Liquid] 500 mg GT Q8H Vitamin B Comp W-C [Nephro-Rafael -] 1 tablet GT DAILY 12/08/16 Tigecycline [Tygacil (Restricted To Id) -] 50 mg IVPB BID vial 12/13/16 Review of Systems - Review of Systems Able to Perform ROS?: No (nonverbal) <Mary Lara - Last Filed: 12/21/16 15:46> *Physical Exam - Vital Signs Last Vital Signs Temp Pulse Resp BP Pulse Ox 104 H 31 H 114/66 100 12/21/16 14:44 12/21/16 14:44 12/21/16 14:44 12/21/16 14:44 - Physical Exam Comments: 12/21/16 15:44 GENERAL: Awake. Nonverbal HEAD: No signs of trauma EYES: PERRLA, EOMI, sclera anicteric, conjunctiva clear ENT: Auricles normal inspection, hearing grossly normal, nares patent, oropharynx clear without exudates. Moist mucosa NECK: Normal ROM, supple, no lymphadenopathy, JVD, or masses LUNGS: Breath sounds equal, clear to auscultation bilaterally. No wheezes, and no crackles HEART: Regular rate and rhythm, normal S1 and S2, no murmurs, rubs or gallops ABDOMEN: Soft, nontender, normoactive bowel sounds. No guarding, no rebound. No masses EXTREMITIES: Normal range of motion, no edema. No clubbing or cyanosis. No cords, erythema, or tenderness NEUROLOGICAL: Cranial nerves II through XII grossly intact. Normal speech, normal gait SKIN: sacral decubitus with wound vac draining. Warm, Dry, normal turgor. <Mary Lara - Last Filed: 12/21/16 15:46> *DC/Admit/Observation/Transfer - Discharge Dispostion Admit: Yes - Attestations Physician Attestion: 12/21/16 14:43 I, Dr. Cortez Harris, attest that this document has been prepared under my direction and personally reviewed by me in its entirety. I further attest, that it accurately reflects all work, treatment, procedures and medical decision -making performed by me. <Cortez Harris - Last Filed: 12/21/16 14:58> - Attestations Scribe Attestion: 12/21/16 15:46 Documentation prepared by Mary Lara, acting as territory sales manager medical for Cortez Harris DO. <Mary Lara - Last Filed: 12/21/16 15:46> Diagnosis at time of Disposition: Sacral decubitus ulcer, stage IV, Cellulitis and abscess of buttock - Discharge Dispostion Condition at time of disposition: Unchanged/Unknown
[2016-12-21] MEDS ORDERED: VANCOMYCIN 1 GRAM (PRE-DOCKED) 1,000 MG/250 ML BAG IVPB ONE (14:56)
[2016-12-21] MEDS ORDERED: PIPERACILLIN/TAZOB 3.375 GM/50 ML PRE-DOCKED IV ONE (14:56)
[2016-12-21 14:57] VITALS: BMI 27.0
[2016-12-21] MEDS ORDERED: ACETAMINOPHEN 650 MG SUPP.RECT ONE (15:10)
[2016-12-21] MEDS ORDERED: VANCOMYCIN 1 GRAM (PRE-DOCKED) 250 ML IVPB ONE (15:16)
[2016-12-21] MEDS ORDERED: PIPERACILLIN/TAZOB 3.375 GM 50 ML IVPB ONE (15:16)
[2016-12-21 15:53] LABS: BASOPHIL 0.5 % (0-2.0); EOSINOPHIL 0.5 % (0-4.5); MCHC 32.3 g/dl (32.0-36.0); MEAN CELL VOLUME 98.9 fl (80-96); MEAN PLT VOLUME 9.4 fl (7.5-11.1); NEUTROPHILS 69.4 % (42.8-82.8); PLATELET COUNT 278 K/MM3 (134-434); RDW 22.8 % (11.6-15.6); WHITE BLOOD COUNT 9.5 K/mm3 (4.0-10.0)
[2016-12-21 16:43] LABS: INR 1.03 (0.82-1.09); PROTHROMBIN TIME (PATIENT) 11.3 SEC (9.98-11.88)
[2016-12-21 16:45] LABS: ACTIVATED PTT 33.8 SECONDS (26.9-34.4)
[2016-12-21 16:55] LABS: ALBUMIN 1.8 g/dl (3.4-5.0); ALK PHOS 107 U/L (45-117); ANION GAP 6 (8-16); BILIRUBIN,TOTAL 0.2 mg/dL (0.2-1.0); CO2 26 mmol/L (21-32); CPK 22 IU/L (26-192); CREATININE 1.2 mg/dL (0.55-1.02); GLUCOSE,RANDOM 282 mg/dL (74-106); SGOT/AST 18 U/L (15-37); SGPT/ALT 21 U/L (12-78); TOT PROT 7.3 g/dl (6.4-8.2)
[2016-12-21 16:57] LABS: TROPONIN I 0.05 ng/ml (0.00-0.05)
[2016-12-21 17:10] LABS: URINE APPEARANCE TURBID; URINE BILIRUBIN NEGATIVE (NEGATIVE); URINE BLOOD NEGATIVE (NEGATIVE); URINE COLOR YELLOW; URINE GLUCOSE (UA) 2+ (NEGATIVE); URINE KETONE NEGATIVE (NEGATIVE); URINE NITRITE NEGATIVE (NEGATIVE); URINE UROBILINOGEN NEGATIVE mg/dL (0.2-1.0)
[2016-12-21 17:16] LABS: URINE LEUK ESTERASE 2+ (NEGATIVE); URINE PROTEIN 2+ (NEGATIVE); VENOUS BLOOD GAS HCO3 27.7 meq/L (19-25); VENOUS PH 7.42 (7.32-7.42)
[2016-12-21 17:35] LABS: URINE RBC 9 /hpf (0-3); URINE WBC 2581 /hpf (3-5)
[2016-12-21] MEDS ORDERED: ACETAMINOPHEN 325 MG TABLET (FP) PO PRN (19:02)
[2016-12-21] MEDS ORDERED: IMIPENEM/CILASTATIN SODIUM 500 MG in SODIUM CHLORIDE 100 ML IVPB ONE (19:05)
[2016-12-21 19:26] LABS: ANISOCYTOSIS 3+; MACROCYTOSIS 1+; MICROCYTOSIS 1+; PLATELET ESTIMATE ADEQUATE (NORMAL); POLYCHROMASIA 1+
--- NOTE | 2016-12-21 19:52 | EKG ---
Test Reason : Blood Pressure : / mmHG Vent. Rate : 104 BPM Atrial Rate : 104 BPM P-R Int : 126 ms QRS Dur : 082 ms QT Int : 370 ms P-R-T Axes : 000 -23 099 degrees QTc Int : 486 ms SINUS TACHYCARDIA INTRA ATRIAL ABNORMALITY NONSPECIFIC ST AND T WAVE ABNORMALITY ABNORMAL ECG WHEN COMPARED WITH ECG OF 08-DEC-2016 01:54, PREMATURE ATRIAL COMPLEXES ARE NO LONGER PRESENT ST-T ABNORMALITIES ARE SLIGHTLY MORE PRONOUNCED IN LEAD 1 ANDaVL REPEAT EKG IF CLINICALLY INDICATED Confirmed by RUBEN DURAN MD ([id number]) on 12/21/2016 7:52:15 PM Referred By: Confirmed By:RUBEN DURAN MD
[2016-12-21] MEDS: SODIUM CHLORIDE 1,000 ML IV SCH (20:05)
[2016-12-21] MEDS: INSULIN DETEMIR 100 UNITS/ML MDV SQ SCH (22:05)
[2016-12-21] MEDS: HEPARIN NA (PORCINE) 5,000 UNITS/ML 1ML VIAL SQ SCH (22:24)
[2016-12-22] MEDS ORDERED: HEPARIN NA (PORCINE) 5,000 UNITS/ML 1ML VIAL ONE ×2 (00:50→13:49)
[2016-12-22] MEDS: ACETAMINOPHEN 650 MG/20.3 ML ORAL SOLUTION (CUPS) GT PRN ×3 (06:25→15:35)
[2016-12-22] MEDS ORDERED: IBUPROFEN 800 MG/8 ML IJ IVPB PRN (06:29)
[2016-12-22 06:30] LABS: BASOPHIL 0.3 % (0-2.0); EOSINOPHIL 0.4 % (0-4.5); MCH 32.2 pg (25.7-33.7); MCHC 32.5 g/dl (32.0-36.0); MEAN CELL VOLUME 98.9 fl (80-96); MEAN PLT VOLUME 9.3 fl (7.5-11.1); NEUTROPHILS 69.8 % (42.8-82.8); PLATELET COUNT 271 K/MM3 (134-434); RDW 22.9 % (11.6-15.6); WHITE BLOOD COUNT 9.9 K/mm3 (4.0-10.0)
[2016-12-22 06:51] LABS: ALBUMIN 1.7 g/dl (3.4-5.0); ANION GAP 6 (8-16); BILIRUBIN,TOTAL 0.4 mg/dL (0.2-1.0); CALCIUM 8.1 mg/dL (8.5-10.1); CO2 30 mmol/L (21-32); CREATININE 1.2 mg/dL (0.55-1.02); GLUCOSE,RANDOM 245 mg/dL (74-106); SGOT/AST 10 U/L (15-37); SGPT/ALT 16 U/L (12-78); TOT PROT 7.2 g/dl (6.4-8.2)
[2016-12-22 06:52] LABS: ALK PHOS 84 U/L (45-117)
--- NOTE | 2016-12-22 09:48 | HP ---
Admitting History and Physical - Admission History of Present Illness: 81 y/o F with a PMHx of anemia, CVA, CHF, IDDM, HTN, HLD, acute kidney failure, thyroid disease, anxiety, agitation, depression presents to the ED from [facility] with fever. Patient is nonverbal. At [facility], temperature was noted to be 101.8. Patient has a sacral pressure ulcer with a wound vac. History is provided by [place] records. - Past Medical History [employer]: Yes: CVA, Dementia Cardiovascular: Yes: Aortic Stenosis, CHF, HTN, Hyperlipdemia Pulmonary: Yes: COPD Gastrointestinal: Yes: GERD Renal/: Yes: Renal Inusuff Heme/Onc: Yes: Anemia Endocrine: Yes: Diabetes Mellitus Dermatology: Yes: Other (PU) - Smoking History Smoking history: Never smoked Have you smoked in the past 12 months: No Aproximately how many cigarettes per day: 0 - Alcohol/Substance Use Hx Alcohol Use: No - Social History History of Recent Travel: No Home Medications - Allergies Allergies/Adverse Reactions: Allergies Allergy/AdvReac Type Severity Reaction Status Date / Time No Known Drug Allergies Allergy Verified 12/08/16 03:39 - Home Medications Home Medications: Ambulatory Orders Acetaminophen Oral Solution [Tylenol 160mg/5mL Oral Solution -] 650 mg GT Q6H PRN 12/08/16 Doxazosin Mesylate [Cardura] 2 mg GT DAILY 12/08/16 Escitalopram Oxalate [Lexapro 5mg/5mL Oral Solution -] 10 mg GT DAILY 12/08/16 FENTANYL 12mcg PATCH [DURAGESIC 12mcg PATCH -] 1 each TD Q72H 12/08/16 Ferrous Sulfate *Liquid* [Feosol *Liquid*] 330 mg GT TID 12/08/16 Heparin - 5,000 units IJ BID 12/08/16 Insulin Aspart [Novolog Flexpen] 0 unit SQ TID 12/08/16 Insulin Detemir [Levemir Flextouch] 18 unit SQ HS 12/08/16 Lactobacillus Acidophilus [Acidophilus] 1 each GT DAILY 12/08/16 Naph,Mb-Db/K pH,Mbdb [PHOS-NaK PACKET -] 1 packet GT DAILY 12/08/16 Ranitidine HCl 150 mg GT DAILY 12/08/16 Vitamin B Comp W-C [Nephro-Rafael -] 1 tablet GT DAILY 12/08/16 Ascorbate Calcium [Vitamin C] 500 mg GT Q8H 12/21/16 Vancomycin/0.9 % Sod Chloride [Vanco 750 mg/250 ml-0.9% NaCl] 750 mg IV DAILY Vitamin B Comp W-C [Nephro-Rafael -] 1 tablet GT DAILY 12/21/16 Review of Systems - Review of Systems Constitutional: reports: Fever Physical Examination Vital Signs: Vital Signs Temperature 101.4 F H 12/22/16 04:15 Pulse Rate 95 H 12/22/16 07:03 Respiratory Rate 16 12/22/16 04:15 Blood Pressure 103/58 12/22/16 07:03 O2 Sat by Pulse Oximetry (%) 95 12/22/16 07:03 Cardiovascular: Yes: Murmur, S1, S2 Respiratory: Yes: Regular, CTA Bilaterally Gastrointestinal: Yes: Normal Bowel Sounds, Soft Extremities: Yes: Amputation Wound/Incision: Yes: Other (sacral) Labs: CBC, BMP 12/22/16 05:50 12/22/16 05:50 Imaging - Results X-ray: Report Reviewed Problem List - Problems (1) Sepsis Assessment/Plan: IV ABX ID CONSULT Code(s): A41.9 - SEPSIS, UNSPECIFIED ORGANISM Qualifiers: (2) Anemia Assessment/Plan: MONITOR LABS Code(s): D64.9 - ANEMIA, UNSPECIFIED Qualifiers: Anemia type: iron deficiency Iron deficiency anemia type: unspecified iron deficiency Qualified Code(s): D50.9 - Iron deficiency anemia, unspecified (3) Sacral decubitus ulcer, stage IV Assessment/Plan: SURGICAL CONSULT ID ABX Code(s): L89.154 - PRESSURE ULCER OF SACRAL REGION, STAGE 4 (4) Acute kidney injury superimposed on CKD Assessment/Plan: FOLLOW LABS' IVF Code(s): N17.9 - ACUTE KIDNEY FAILURE, UNSPECIFIED N18.9 - CHRONIC KIDNEY DISEASE, UNSPECIFIED (5) Type 2 diabetes mellitus with other diabetic kidney complication Assessment/Plan: INSULIN ENDO Code(s): E11.29 - TYPE 2 DIABETES MELLITUS W OTH DIABETIC KIDNEY COMPLICATION
--- NOTE | 2016-12-22 09:56 | PN ---
Progress Note (short form) - Note Progress Note: ID consult dictated debilitated nonambulatory 81 year old with bilateral BKA, ssacral ulcer and GT- history of repeated hospitalizations for sepsis recently in hospital for fever/sepsis- had LLL pneumonia, cultures all negative discharged after 7 days IV tygacil- now admitted with fever got vancomycin, zosyn and imipenem in ED last night on exam she is nonverbal, hemodynamically stable large sacral ulcer 13 by 10 cm, some necrotic edges, otherwise clean apparently sent with conley per nursing note priior history of CRE, VRE prior history of cdiff cxray- infiltrate resolved fevers uti- catheter associated sacral ulcer- clean history cdiff history resistant organisms plan contact isolation gent/meropenem f/u cultures continue IVF vanco level gent level in am overall prognosis is poor Problem List - Problems (1) Fever Code(s): R50.9 - FEVER, UNSPECIFIED (2) UTI (urinary tract infection) Code(s): N39.0 - URINARY TRACT INFECTION, SITE NOT SPECIFIED Qualifiers: Hematuria presence: without hematuria
[2016-12-22] MEDS ORDERED: GENTAMICIN 80 MG PREMIXED IVPB 100 ML IVPB ONE (10:00)
[2016-12-22] MEDS ORDERED: MEROPENEM 500 MG VIAL (RESTRICTED TO ID) IVPB SCH (10:00)
--- NOTE | 2016-12-22 10:49 | CONS ---
DATE OF CONSULTATION: REQUESTING PHYSICIAN: Rashawn Garcia MD HISTORY: This is a very debilitated woman recently in the hospital from the through the with sepsis. She was discharged on Tygacil. During that admission, she was found to have a right lower lobe pneumonia. She is at baseline bedbound. She is minimally verbal. She has a PEG tube. She has bilateral DKAs and a sacral ulcer. 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 She was sent to the hospital for fever. Overnight her white count was normal. She was hemodynamically stable. She was given vancomycin, Zosyn, and Imipenem. I am asked to see her for further evaluation. ALLERGIES: She has no known drug allergies. PAST MEDICAL HISTORY: Notable for bilateral BKA. She has a history of Clostridium difficile toxin and antigen positive in October of this year. She has had multiple recent admissions. She has had a CVA dementia, aortic stenosis, congestive heart failure, hypertension, hyperlipidemia, COPD, GERD. She has some chronic renal insufficiency, diabetes. She has a PEG tube. She is status post bilateral BKA. MEDICATIONS: Include Tylenol, Cardura, Lexapro, fentanyl patch, iron, subcutaneous heparin, insulin, Lactobacillus. Last admission she was discharged on 2 days of Tygacil. REVIEW OF SYSTEMS: Not available. Per the [facility] notes from overnight, she apparently was sent to the hospital with a Gonzales draining cloudy urine. There is no documentation of any diarrhea. She was sent for fever. PHYSICAL EXAMINATION: General: She is in no distress. She is not verbal. Vital Signs: She is hemodynamically stable. Her vitals are notable. Her temperature is 103.4 on admission, 101.4 now. Her pulse is 95, blood pressure 103/58. She is receiving normal saline. HEENT: She is normocephalic. Eyes are anicteric. She does not follow any commands. Lungs: Clear to auscultation. Heart: Regular rate and rhythm. Abdomen: Soft. G-tube site is clean. Extremities: Her BKA sites are well healed. She has a 10-cm x 13-cm sacral ulcer. There is no purulence or odor. We removed the packing an examined it. There are some necrotic edges. There is no associated cellulitis. She has some excoriations of her upper back. Genitourinary: She has a Gonzales that is draining cloudy urine. LABORATORIES: Her labs are notable. Her white count on admission was 9.5, today is 9.9 hemoglobin 8.7, platelets 271. BUN 63, creatinine 1.2. LFTs are normal. Her albumin is 1.7. Urinalysis has 2581 white cells. Urine and blood cultures are pending. Chest x-ray is negative. On the prior admission, all of her cultures were negative Clostridium difficile blood and urine. 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 History of Clostridium difficile, recent pneumonia that is resolved who now presents with fevers, possible catheter-associated UTI. Sacral ulcer appears clean. For the most part, it does not appear purulent or cellulitic. PLAN: Contact isolation. Gentamicin and Meropenem. Follow up cultures. Continue IV fluids. Vancomycin level and gentamicin level in the morning. Overall prognosis is poor. She should be referred for palliative care. RORO PETERS M.D. [id number]
[2016-12-22] MEDS ORDERED: ACETAMINOPHEN 160 MG/5 ML 473ML BULK BOTTLE ONE ×2 (11:17→15:18)
[2016-12-22] MEDS: SODIUM CHLORIDE 1,000 ML IV SCH ×2 (11:50→16:40)
[2016-12-22] MEDS: MEROPENEM 500 MG in DEXTROSE 5%-WATER - 100 ML IVPB SCH ×2 (12:08→21:11)
[2016-12-22] MEDS: INSULIN SLIDING SCALE (NOVOLOG) 1 VIAL SQ SCH ×4 (12:16→19:57)
[2016-12-22] MEDS: DOXAZOSIN MESYLATE 2 MG TABLET (FP) GT SCH (12:17)
[2016-12-22] MEDS: HEPARIN NA (PORCINE) 5,000 UNITS/ML 1ML VIAL SQ SCH (13:50)
[2016-12-22] MEDS: RANITIDINE HCL 150 MG/10 ML UNIT-DOSE GT SCH (16:38)
[2016-12-22] MEDS: ESCITALOPRAM OXALATE 5 MG/5 ML GT SCH (16:38)
[2016-12-22] MEDS: INSULIN DETEMIR 100 UNITS/ML MDV SQ SCH (19:58)
[2016-12-23] MEDS: INSULIN SLIDING SCALE (NOVOLOG) 1 VIAL SQ SCH ×5 (02:40→22:00)
[2016-12-23] MEDS: ACETAMINOPHEN 650 MG/20.3 ML ORAL SOLUTION (CUPS) GT PRN (03:15)
[2016-12-23] MEDS ORDERED: ACETAMINOPHEN 650 MG SUPP.RECT ONE (03:17)
[2016-12-23] MEDS ORDERED: HEPARIN NA (PORCINE) 5,000 UNITS/ML 1ML VIAL ONE (03:17)
[2016-12-23] MEDS: INSULIN DETEMIR 100 UNITS/ML MDV SQ SCH ×3 (03:24→22:00)
[2016-12-23] MEDS: HEPARIN NA (PORCINE) 5,000 UNITS/ML 1ML VIAL SQ SCH ×3 (03:24→22:00)
[2016-12-23] MEDS ORDERED: INSULIN DETEMIR 100 UNITS/ML MDV SQ ONE (03:27)
[2016-12-23] MEDS: MEROPENEM 500 MG in DEXTROSE 5%-WATER - 100 ML IVPB SCH ×3 (03:38→17:26)
--- NOTE | 2016-12-23 10:59 | PN ---
Progress Note, Physician Chief Complaint: patient sent to ER for fever of 103.4 non verbal lethargic and tahcypneic - Current Medication List Current Medications: Active Medications Acetaminophen (Tylenol Oral Solution -) 650 mg GT Q4H PRN PRN Reason: FEVER OR PAIN Last Admin: 12/23/16 03:15 Dose: 650 mg Doxazosin Mesylate (Cardura -) 2 mg GT DAILY [facility] Last Admin: 12/22/16 12:17 Dose: Not Given Escitalopram Oxalate (Lexapro Oral Solution -) 10 mg GT DAILY [facility] Last Admin: 12/22/16 16:38 Dose: 10 mg Heparin Sodium (Porcine) (Heparin -) 5,000 unit SQ BID [facility] Last Admin: 12/23/16 03:24 Dose: 5,000 unit Meropenem 500 mg/ Dextrose 100 mls @ 200 mls/hr IVPB Q8H-IV [facility] Last Admin: 12/23/16 03:38 Dose: 200 mls/hr Sodium Chloride (Normal Saline -) 1,000 mls @ 150 mls/hr IV ASDIR [facility] Last Admin: 12/22/16 16:40 Dose: 150 mls/hr Ibuprofen (Caldolor Injection -) 400 mg IVPB Q6H PRN PRN Reason: FEVER Insulin Aspart (Novolog Vial Sliding Scale -) 0 vial SQ ACHS [facility] PRN Reason: Protocol Last Admin: 12/23/16 06:24 Dose: Not Given Insulin Detemir (Levemir Vial) 18 units SQ HS [facility] Last Admin: 12/23/16 03:24 Dose: 18 unit Insulin Detemir (Levemir Vial) 25 units SQ DAILY@0700 [facility] Last Admin: 12/23/16 06:29 Dose: 25 units Ranitidine HCl (Zantac Oral Solution -) 150 mg GT DAILY [facility] Last Admin: 12/22/16 16:38 Dose: 150 mg - Objective Vital Signs: Vital Signs Temperature 98.8 F 12/23/16 06:00 Pulse Rate 83 12/23/16 06:00 Respiratory Rate 18 12/23/16 06:00 Blood Pressure 104/50 12/23/16 06:00 O2 Sat by Pulse Oximetry (%) 96 12/23/16 06:21 Constitutional: Yes: Thin Cardiovascular: Yes: Regular Rate and Rhythm, Murmur, S1, S2 Respiratory: Yes: On Nasal O2, Rhonchi Gastrointestinal: Yes: Normal Bowel Sounds, Soft Extremities: Yes: Other (s/p BKA) Labs: CBC, BMP 12/22/16 05:50 12/22/16 05:50 INR, PTT INR 1.03 (0.82-1.09) 12/21/16 13:38 Problem List - Problems (1) Sacral decubitus ulcer, stage IV Assessment/Plan: iv abx ivf fluids rate decreased to 100cc/hr dvt ppx frequent turn position Code(s): L89.154 - PRESSURE ULCER OF SACRAL REGION, STAGE 4 (2) Hypernatremia Assessment/Plan: renal eval ivf Code(s): E87.0 - HYPEROSMOLALITY AND HYPERNATREMIA (3) Diabetes Assessment/Plan: on insulin Code(s): E11.9 - TYPE 2 DIABETES MELLITUS WITHOUT COMPLICATIONS Qualifiers: Diabetes mellitus type: type 2 Diabetes mellitus complication detail: with other skin ulcer (4) Neurogenic bladder Assessment/Plan: conley cath Code(s): N31.9 - NEUROMUSCULAR DYSFUNCTION OF BLADDER, UNSPECIFIED
[2016-12-23] MEDS: DOXAZOSIN MESYLATE 2 MG TABLET (FP) GT SCH (11:08)
[2016-12-23] MEDS: SODIUM CHLORIDE 1,000 ML IV SCH ×2 (11:09→11:21)
[2016-12-23] MEDS ORDERED: DEXTROSE 50%-WATER 50 ML DISP.SYRIN ONE ×2 (11:14→16:34)
--- NOTE | 2016-12-23 11:49 | PN ---
Progress Note, Physician Chief Complaint: ID Sent for fever 103 Currently Meropenem and dose Gent - Current Medication List Current Medications: Active Medications Acetaminophen (Tylenol Oral Solution -) 650 mg GT Q4H PRN PRN Reason: FEVER OR PAIN Last Admin: 12/23/16 03:15 Dose: 650 mg Doxazosin Mesylate (Cardura -) 2 mg GT DAILY [facility] Last Admin: 12/23/16 11:08 Dose: Not Given Escitalopram Oxalate (Lexapro Oral Solution -) 10 mg GT DAILY [facility] Last Admin: 12/22/16 16:38 Dose: 10 mg Heparin Sodium (Porcine) (Heparin -) 5,000 unit SQ BID [facility] Last Admin: 12/23/16 11:08 Dose: 5,000 unit Meropenem 500 mg/ Dextrose 100 mls @ 200 mls/hr IVPB Q8H-IV [facility] Last Admin: 12/23/16 11:08 Dose: 200 mls/hr Sodium Chloride (Normal Saline -) 1,000 mls @ 100 mls/hr IV ASDIR [facility] Last Admin: 12/23/16 11:21 Dose: 100 mls/hr Ibuprofen (Caldolor Injection -) 400 mg IVPB Q6H PRN PRN Reason: FEVER Insulin Aspart (Novolog Vial Sliding Scale -) 0 vial SQ ACHS [facility] PRN Reason: Protocol Last Admin: 12/23/16 11:22 Dose: Not Given Insulin Detemir (Levemir Vial) 18 units SQ HS [facility] Last Admin: 12/23/16 03:24 Dose: 18 unit Insulin Detemir (Levemir Vial) 25 units SQ DAILY@0700 [facility] Last Admin: 12/23/16 06:29 Dose: 25 units Ranitidine HCl (Zantac Oral Solution -) 150 mg GT DAILY [facility] Last Admin: 12/22/16 16:38 Dose: 150 mg - Objective Vital Signs: Vital Signs Temperature 98.8 F 12/23/16 06:00 Pulse Rate 83 12/23/16 06:00 Respiratory Rate 18 12/23/16 06:00 Blood Pressure 104/50 12/23/16 06:00 O2 Sat by Pulse Oximetry (%) 96 12/23/16 06:21 Neck: Yes: WNL, Supple Cardiovascular: Yes: Regular Rate and Rhythm, S1, S2 Respiratory: Yes: WNL, Regular, CTA Bilaterally Gastrointestinal: Yes: WNL, Normal Bowel Sounds. No: Tenderness Labs: CBC, BMP 12/22/16 05:50 12/22/16 05:50 INR, PTT INR 1.03 (0.82-1.09) 12/21/16 13:38 Assessment/Plan Microbiology 12/21/16 16:18 Urine - Urostomy Bag Urine Culture - Preliminary Lactose Fermenting Neg Bacilli Non Lactose Fermenting Gnb 12/21/16 13:38 Blood - Peripheral Venous Blood Culture - Preliminary NO GROWTH OBTAINED AFTER 24 HOURS, INCUBATION TO CONTINUE FOR 4 DAYS. Laboratory Tests 12/22/16 05:50 WBC 9.9 Hgb 8.7 L Hct 26.8 L Plt Count 271 Assessment Sepsis UTI MDRO Plan Continue current antibiotics
--- NOTE | 2016-12-23 12:17 | PN ---
Progress Note (short form) - Note Progress Note: Renal Follow up for Hypernatremia/GIANNI Pt known to our serive from prior admissions Pt s/p recent hospital admission during which time she was hypernatremic. This is a 81 year old woman with PMhx of PVD s/p b/l BKA, Hx of recurrent Multi Drug resistant UTI, Dementia who presented from the [place] with Fever and found to have GIANNI and Hypernatermia. Vital Signs Temperature 96.8 F L 12/23/16 10:00 Pulse Rate 100 H 12/23/16 10:00 Respiratory Rate 20 12/23/16 10:00 Blood Pressure 54/52 12/23/16 10:00 O2 Sat by Pulse Oximetry (%) 96 12/23/16 06:21 Intake & Output 12/20/16 12/21/16 12/22/16 12/23/16 23:59 23:59 23:59 23:59 Intake Total 1750 400 Balance 1750 400 Weight 111 lb 15.988 oz 102 lb 3 oz Lethargic, no distress Dry MM, no JVD RRR, + systolic murmur Abd is soft NT/ND, G-tube in place no edema, b/l BKA CBC, BMP 12/22/16 05:50 12/22/16 05:50 Laboratory Tests 12/21/16 12/22/16 16:50 05:50 Calcium 8.1 L Albumin 1.7 L Urine Protein 2+ H Urine Glucose (UA) 2+ H Urine WBC 2581 Current Medications Acetaminophen (Tylenol Oral Solution -) 650 mg GT Q4H PRN PRN Reason: FEVER OR PAIN Last Admin: 12/23/16 03:15 Dose: 650 mg Doxazosin Mesylate (Cardura -) 2 mg GT DAILY [facility] Last Admin: 12/23/16 11:08 Dose: Not Given Escitalopram Oxalate (Lexapro Oral Solution -) 10 mg GT DAILY [facility] Last Admin: 12/22/16 16:38 Dose: 10 mg Heparin Sodium (Porcine) (Heparin -) 5,000 unit SQ BID [facility] Last Admin: 12/23/16 11:08 Dose: 5,000 unit Meropenem 500 mg/ Dextrose 100 mls @ 200 mls/hr IVPB Q8H-IV [facility] Last Admin: 12/23/16 11:08 Dose: 200 mls/hr Sodium Chloride (Normal Saline -) 1,000 mls @ 100 mls/hr IV ASDIR [facility] Last Admin: 12/23/16 11:21 Dose: 100 mls/hr Ibuprofen (Caldolor Injection -) 400 mg IVPB Q6H PRN PRN Reason: FEVER Insulin Aspart (Novolog Vial Sliding Scale -) 0 vial SQ ACHS [facility] PRN Reason: Protocol Last Admin: 12/23/16 11:22 Dose: Not Given Insulin Detemir (Levemir Vial) 18 units SQ HS [facility] Last Admin: 12/23/16 03:24 Dose: 18 unit Insulin Detemir (Levemir Vial) 25 units SQ DAILY@0700 [facility] Last Admin: 12/23/16 06:29 Dose: 25 units Ranitidine HCl (Zantac Oral Solution -) 150 mg GT DAILY [facility] Last Admin: 12/22/16 16:38 Dose: 150 mg A/P 81 year old woman well known to our service with hx of dementia, PVD s/p b/l BKA , Hypertension, HLD, GERD, Sacral decubitis ulcers who [place] with Fever with GIANNI And Hypernatermia #GIANNI with Hypernatremia (baseline Cr is 0.7) Etiology of GIANNI likely volume depletion, renal hypoperfusion in setting of sepsis Water deficit is 1.45L Check Urine for FeNa Give NS bolus 1 L today and continue NS at 100cc per hour continue free water via G-tube, 45cc per hour Can change to 1/2 NS or D5W in 24 hours if renal function and hypotension improved Trend BUN/cr, Phos and electrolytes no indication for 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
[2016-12-23] MEDS ORDERED: SODIUM CHLORIDE 1,000 ML IV STA (12:19)
--- NOTE | 2016-12-23 12:54 | PN ---
Progress Note (short form) - Note Progress Note: hypoglycemia: start tube feeds give dextrose bgm improved to 114 Problem List - Problems (1) Sacral decubitus ulcer, stage IV Code(s): L89.154 - PRESSURE ULCER OF SACRAL REGION, STAGE 4 (2) Hypernatremia Code(s): E87.0 - HYPEROSMOLALITY AND HYPERNATREMIA (3) Diabetes Code(s): E11.9 - TYPE 2 DIABETES MELLITUS WITHOUT COMPLICATIONS Qualifiers: Diabetes mellitus type: type 2 Diabetes mellitus complication detail: with other skin ulcer (4) Neurogenic bladder Code(s): N31.9 - NEUROMUSCULAR DYSFUNCTION OF BLADDER, UNSPECIFIED
[2016-12-23] MEDS ORDERED: DEXTROSE 50%-WATER - 25 GM/50 ML VIAL IVPUSH ONE (13:00)
[2016-12-23] MEDS: ESCITALOPRAM OXALATE 5 MG/5 ML GT SCH (13:00)
[2016-12-23] MEDS: RANITIDINE HCL 150 MG/10 ML UNIT-DOSE GT SCH (13:00)
[2016-12-23] MEDS ORDERED: PT OWN MED DRAWER 7, Y5N ONE (17:26)
[2016-12-24] MEDS ORDERED: PT OWN MED DRAWER 7, Y5N ONE ×3 (01:09→17:37)
[2016-12-24] MEDS: MEROPENEM 500 MG in DEXTROSE 5%-WATER - 100 ML IVPB SCH ×3 (01:12→17:37)
[2016-12-24] MEDS ORDERED: DEXTROSE 50%-WATER 50 ML DISP.SYRIN ONE (06:26)
[2016-12-24] MEDS: INSULIN DETEMIR 100 UNITS/ML MDV SQ SCH (06:30)
[2016-12-24] MEDS: INSULIN SLIDING SCALE (NOVOLOG) 1 VIAL SQ SCH ×4 (06:30→22:22)
[2016-12-24] MEDS: ACETAMINOPHEN 650 MG/20.3 ML ORAL SOLUTION (CUPS) GT PRN (06:41)
[2016-12-24] MEDS ORDERED: INSULIN (NOVOLOG) ASPART 100 UNITS/ML 10ML VIAL ONE (06:56)
--- NOTE | 2016-12-24 08:54 | CONSULT ---
Consult Consult Specialty:: endocrine Referred by:: dr.annabi velasquez Reason for Consultation:: diabetes mellitus - History of Present Illness History of Present Illness: 81 y/o F with a PMHx of anemia, CVA, CHF, IDDM, HTN, HLD, acute kidney failure, thyroid disease, anxiety, agitation, depression presents to the ED from [facility].with fever weakness,lethargic, patient is non verbal,with chronic sacral decubitus ulcer wound vac,has labile blood sugars,temp 101 from snf - Past Medical History DIRECTOR INDEX: Yes: CVA, Dementia Cardio/Vascular: Yes: Aortic Stenosis, CHF, HTN, Hyperlipdemia Pulmonary: Yes: COPD Gastrointestinal: Yes: GERD Renal/: Yes: Renal Inusuff Endocrine: Yes: Diabetes Mellitus Dermatology: Yes: Other (PU) - Alcohol/Substance Use Hx Alcohol Use: No - Smoking History Smoking history: Never smoked Have you smoked in the past 12 months: No Aproximately how many cigarettes per day: 0 - Social History Usual Living Arrangement: Detention History of Recent Travel: No Home Medications - Allergies Allergies/Adverse Reactions: Allergies Allergy/AdvReac Type Severity Reaction Status Date / Time No Known Drug Allergies Allergy Verified 12/08/16 03:39 - Home Medications Home Medications: Ambulatory Orders Acetaminophen Oral Solution [Tylenol 160mg/5mL Oral Solution -] 650 mg GT Q6H PRN 12/08/16 Doxazosin Mesylate [Cardura] 2 mg GT DAILY 12/08/16 Escitalopram Oxalate [Lexapro 5mg/5mL Oral Solution -] 10 mg GT DAILY 12/08/16 FENTANYL 12mcg PATCH [DURAGESIC 12mcg PATCH -] 1 each TD Q72H 12/08/16 Ferrous Sulfate *Liquid* [Feosol *Liquid*] 330 mg GT TID 12/08/16 Heparin - 5,000 units IJ BID 12/08/16 Insulin Aspart [Novolog Flexpen] 0 unit SQ TID 12/08/16 Insulin Detemir [Levemir Flextouch] 18 unit SQ HS 12/08/16 Lactobacillus Acidophilus [Acidophilus] 1 each GT DAILY 12/08/16 Naph,Mb-Db/K pH,Mbdb [PHOS-NaK PACKET -] 1 packet GT DAILY 12/08/16 Ranitidine HCl 150 mg GT DAILY 12/08/16 Vitamin B Comp W-C [Nephro-Rafael -] 1 tablet GT DAILY 12/08/16 Ascorbate Calcium [Vitamin C] 500 mg GT Q8H 12/21/16 Vancomycin/0.9 % Sod Chloride [Vanco 750 mg/250 ml-0.9% NaCl] 750 mg IV DAILY Vitamin B Comp W-C [Nephro-Rafael -] 1 tablet GT DAILY 12/21/16 Physical Exam Vital Signs: Vital Signs Temperature 99.9 F H 12/24/16 05:47 Pulse Rate 91 H 12/24/16 05:47 Respiratory Rate 20 12/24/16 05:47 Blood Pressure 104/60 12/24/16 05:47 O2 Sat by Pulse Oximetry (%) 95 12/23/16 21:00 Constitutional: Yes: Well Nourished Eyes: Yes: EOM Intact HENT: Yes: Normocephalic Neck: Yes: Trachea Midline Cardiovascular: Yes: Regular Rate and Rhythm Respiratory: Yes: CTA Bilaterally Gastrointestinal: Yes: Normal Bowel Sounds, Soft ...Rectal Exam: Yes: Induration Renal/: Yes: WNL Breast(s): Yes: WNL Musculoskeletal: Yes: Muscle Weakness Extremities: Yes: WNL Edema: No Peripheral Pulses WNL: Yes Integumentary: Yes: WNL Wound/Incision: Yes: Well Approximated, Draining, Excoriated Neurological: Yes: Alert, Aphasia Labs: CBC, BMP 12/22/16 05:50 12/23/16 18:30 Problem List - Problems (1) C. difficile diarrhea Code(s): A04.7 - ENTEROCOLITIS DUE TO CLOSTRIDIUM DIFFICILE (2) Sacral decubitus ulcer, stage IV Code(s): L89.154 - PRESSURE ULCER OF SACRAL REGION, STAGE 4 (3) (HFpEF) heart failure with preserved ejection fraction Code(s): I50.9 - HEART FAILURE, UNSPECIFIED (4) Diabetes Code(s): E11.9 - TYPE 2 DIABETES MELLITUS WITHOUT COMPLICATIONS Qualifiers: Diabetes mellitus type: type 2 Diabetes mellitus complication detail: with other skin ulcer Assessment/Plan Current Active Problems Anemia (Acute) C. difficile diarrhea (Acute) Cellulitis and abscess of buttock (Acute) Hyperkalemia (Acute) Sacral decubitus ulcer, stage IV (Acute) diabetes mellitus/chronic wound infection diabetic neuropathy dementia Abnormal Lab Results 12/24/16 04:00 U Random Total Protein 108 H Laboratory Results - last 24 hr 12/23/16 12/23/16 12/23/16 11:13 11:25 12:20 POC Glucometer 14 162 Random Glucose 106 D U Random Total Protein Ur Random Sodium Urine Creatinine 12/23/16 12/23/16 12/23/16 16:33 16:42 18:30 POC Glucometer 12 171 Random Glucose 100 U Random Total Protein Ur Random Sodium Urine Creatinine 12/23/16 12/24/16 12/24/16 21:57 04:00 04:00 POC Glucometer 115 Random Glucose U Random Total Protein Ur Random Sodium 44 Urine Creatinine 41.9 12/24/16 12/24/16 12/24/16 04:00 06:25 06:52 POC Glucometer 37 152 Random Glucose U Random Total Protein 108 H Ur Random Sodium Urine Creatinine plan: bgm qid novolog insulin coverage use levemir 20 units am dc hs levemir
[2016-12-24] MEDS ORDERED: INSULIN DETEMIR 100 UNITS/ML MDV SQ SCH (09:04)
[2016-12-24 09:34] LABS: BASOPHIL 0.1 % (0-2.0); EOSINOPHIL 0.6 % (0-4.5); MCH 31.6 pg (25.7-33.7); MCHC 31.8 g/dl (32.0-36.0); MEAN CELL VOLUME 99.4 fl (80-96); MEAN PLT VOLUME 8.8 fl (7.5-11.1); NEUTROPHILS 84.1 % (42.8-82.8); PLATELET COUNT 215 K/MM3 (134-434); RDW 22.2 % (11.6-15.6); WHITE BLOOD COUNT 11.1 K/mm3 (4.0-10.0)
[2016-12-24] MEDS: DOXAZOSIN MESYLATE 2 MG TABLET (FP) GT SCH (10:04)
[2016-12-24] MEDS: HEPARIN NA (PORCINE) 5,000 UNITS/ML 1ML VIAL SQ SCH ×2 (10:09→22:21)
[2016-12-24] MEDS: RANITIDINE HCL 150 MG/10 ML UNIT-DOSE GT SCH (10:10)
[2016-12-24] MEDS: ESCITALOPRAM OXALATE 5 MG/5 ML GT SCH (10:10)
[2016-12-24 10:21] LABS: ALBUMIN 1.3 g/dl (3.4-5.0); ALK PHOS 100 U/L (45-117); ANION GAP 4 (8-16); BILIRUBIN,TOTAL 0.1 mg/dL (0.2-1.0); CALCIUM 7.5 mg/dL (8.5-10.1); CO2 25 mmol/L (21-32); CREATININE 0.6 mg/dL (0.55-1.02); GLUCOSE,RANDOM 66 mg/dL (74-106); MAGNESIUM 2.1 mg/dL (1.8-2.4); PHOSPHOROUS 2.4 mg/dL (2.5-4.9); SGOT/AST 16 U/L (15-37); SGPT/ALT 13 U/L (12-78); TOT PROT 5.9 g/dl (6.4-8.2)
--- NOTE | 2016-12-24 10:35 | PN ---
Progress Note, Physician Chief Complaint: hypoglycemia episode noted levemir HS dose discontinued got dextrose tube feeds restarted awaiting sodium level low BP on NS - Current Medication List Current Medications: Active Medications Acetaminophen (Tylenol Oral Solution -) 650 mg GT Q4H PRN PRN Reason: FEVER OR PAIN Last Admin: 12/24/16 06:41 Dose: 650 mg Doxazosin Mesylate (Cardura -) 2 mg GT DAILY [facility] Last Admin: 12/24/16 10:04 Dose: Not Given Escitalopram Oxalate (Lexapro Oral Solution -) 10 mg GT DAILY [facility] Last Admin: 12/24/16 10:10 Dose: 10 mg Heparin Sodium (Porcine) (Heparin -) 5,000 unit SQ BID [facility] Last Admin: 12/24/16 10:09 Dose: 5,000 unit Meropenem 500 mg/ Dextrose 100 mls @ 200 mls/hr IVPB Q8H-IV [facility] Last Admin: 12/24/16 10:09 Dose: 200 mls/hr Sodium Chloride (Normal Saline -) 1,000 mls @ 100 mls/hr IV ASDIR [facility] Last Admin: 12/23/16 11:21 Dose: 100 mls/hr Insulin Aspart (Novolog Vial Sliding Scale -) 1 vial SQ ACHS [facility] PRN Reason: Protocol Insulin Detemir (Levemir Vial) 18 units SQ DAILY@0700 [facility] Ranitidine HCl (Zantac Oral Solution -) 150 mg GT DAILY [facility] Last Admin: 12/24/16 10:10 Dose: 150 mg - Objective Vital Signs: Vital Signs Temperature 98.3 F 12/24/16 09:00 Pulse Rate 79 12/24/16 09:00 Respiratory Rate 20 12/24/16 09:00 Blood Pressure 88/43 12/24/16 09:00 O2 Sat by Pulse Oximetry (%) 97 12/24/16 09:00 Constitutional: Yes: Calm, Thin, Other (no verbal) Cardiovascular: Yes: Murmur, S1, S2 Respiratory: Yes: CTA Bilaterally Gastrointestinal: Yes: Normal Bowel Sounds, Soft, Other (g tube) Musculoskeletal: Yes: Other (BKA) Wound/Incision: Yes: Other (sacral wound) Labs: CBC, BMP 12/24/16 08:30 INR, PTT INR 1.03 (0.82-1.09) 12/21/16 13:38 Problem List - Problems (1) Fever Assessment/Plan: d/w ID plan is ctscan of abdomen and pelvis to look for source of fever iv bax per ID Code(s): R50.9 - FEVER, UNSPECIFIED (2) Sacral decubitus ulcer, stage IV Assessment/Plan: iv abx ivf fluids rate decreased to 100cc/hr dvt ppx frequent turn position Code(s): L89.154 - PRESSURE ULCER OF SACRAL REGION, STAGE 4 (3) Hypernatremia Assessment/Plan: renal on board awaiting labs today Code(s): E87.0 - HYPEROSMOLALITY AND HYPERNATREMIA (4) Diabetes Assessment/Plan: seen by endocrine insulin adjusted will further decreased dose Code(s): E11.9 - TYPE 2 DIABETES MELLITUS WITHOUT COMPLICATIONS Qualifiers: Diabetes mellitus type: type 2 Diabetes mellitus complication detail: with other skin ulcer (5) Neurogenic bladder Assessment/Plan: conley cath Code(s): N31.9 - NEUROMUSCULAR DYSFUNCTION OF BLADDER, UNSPECIFIED (6) Hypoglycemia Assessment/Plan: insulin decreased got dextrose tube feeds restarted Code(s): E16.2 - HYPOGLYCEMIA, UNSPECIFIED
[2016-12-24] MEDS ORDERED: DEXTROSE 5%-NORMAL SALINE 1,000 ML IV SCH (10:45)
--- NOTE | 2016-12-24 11:33 | PN ---
Progress Note (short form) - Note Progress Note: afebrile more alert today Vital Signs Period Temp Pulse Resp BP Sys/Chávez Pulse Ox Last 24 Hr 96 F-99.9 F 79-98 19-20 88-110/43-61 95-97 cor-rrr lungs clear abd soft, +gt ext bilateral BKAsacral ulcer conley Microbiology 12/21/16 13:38 Blood - Peripheral Venous Blood Culture - Preliminary NO GROWTH OBTAINED AFTER 48 HOURS, INCUBATION TO CONTINUE FOR 3 DAYS. 12/21/16 16:18 Urine - Urostomy Bag Urine Culture - Preliminary Lactose Fermenting Neg Bacilli Non Lactose Fermenting Gnb CBC, BMP 12/24/16 08:30 12/24/16 08:30 a/p fevers uti- catheter associated sacral ulcer- clean history cdiff history resistant organisms contact isolation ct scan abd/pelvis- r/o abscess- continue meropenem d/w Dr Eid Problem List - Problems (1) Fever Code(s): R50.9 - FEVER, UNSPECIFIED (2) UTI (urinary tract infection) Code(s): N39.0 - URINARY TRACT INFECTION, SITE NOT SPECIFIED Qualifiers: Hematuria presence: without hematuria
[2016-12-24] MEDS: SODIUM CHLORIDE 1,000 ML IV SCH (12:01)
[2016-12-24] MEDS ORDERED: D5-1/2NS+40 MEQ KCL - 1,000 ML IV SCH (12:30)
--- NOTE | 2016-12-24 13:07 | PN ---
Progress Note (short form) - Note Progress Note: Renal Follow up for Hypernatremia/GIANNI Pt seen and examined at the bedside awake but not talking no overnight events on IVF making dark yellow urine in conley Vital Signs Temperature 98.3 F 12/24/16 09:00 Pulse Rate 79 12/24/16 09:00 Respiratory Rate 20 12/24/16 09:00 Blood Pressure 88/43 12/24/16 09:00 O2 Sat by Pulse Oximetry (%) 97 12/24/16 09:00 Intake & Output 12/21/16 12/22/16 12/23/16 12/24/16 23:59 23:59 23:59 23:59 Intake Total 1750 2600 1620 Output Total 250 700 Balance 1750 2350 920 Weight 111 lb 15.988 oz 102 lb 3 oz 102 lb 6 oz awake and alert, not takking Dry MM, no JVD RRR, + systolic murmur Abd is soft NT/ND, G-tube in place no edema, b/l BKA CBC, BMP 12/24/16 08:30 12/24/16 08:30 Laboratory Tests 12/24/16 08:30 Calcium 7.5 L Phosphorus 2.4 L Magnesium 2.1 Current Medications Acetaminophen (Tylenol Oral Solution -) 650 mg GT Q4H PRN PRN Reason: FEVER OR PAIN Last Admin: 12/24/16 06:41 Dose: 650 mg Doxazosin Mesylate (Cardura -) 2 mg GT DAILY [facility] Last Admin: 12/24/16 10:04 Dose: Not Given Escitalopram Oxalate (Lexapro Oral Solution -) 10 mg GT DAILY [facility] Last Admin: 12/24/16 10:10 Dose: 10 mg Heparin Sodium (Porcine) (Heparin -) 5,000 unit SQ BID [facility] Last Admin: 12/24/16 10:09 Dose: 5,000 unit Meropenem 500 mg/ Dextrose 100 mls @ 200 mls/hr IVPB Q8H-IV [facility] Last Admin: 12/24/16 10:09 Dose: 200 mls/hr Dextrose/Sodium Chloride (D5-1/2ns+40 Meq Kcl -) 1,000 mls @ 100 mls/hr IV ASDIR [facility] Insulin Aspart (Novolog Vial Sliding Scale -) 1 vial SQ ACHS [facility] PRN Reason: Protocol Last Admin: 12/24/16 12:00 Dose: Not Given Ranitidine HCl (Zantac Oral Solution -) 150 mg GT DAILY [facility] Last Admin: 12/24/16 10:10 Dose: 150 mg A/P 81 year old woman well known to our service with hx of dementia, PVD s/p b/l BKA , Hypertension, HLD, GERD, Sacral decubitis ulcers who presented from [place] with Fever with GIANNI And Hypernatermia #GIANNI with Hypernatremia (baseline Cr is 0.7) Etiology of GIANNI likely volume depletion, renal hypoperfusion in setting of sepsis Renal function now improve to baseline BUN remains high, indicating pre-renal state change IVF to D5 1/2NS with 40kcl at 100cc per hour Trend BMP daily #Fever/Sepsis Continue Abx as per ID f/u cultuers would avoid NSAIDs as pt has GIANNI #Anemia Trend CBC Transfuse as needed #Hypophosphatemia give Neutraphos via G tube x 3 Trend daily Thank you Vahid Manzano DO
[2016-12-24] MEDS: NAPH,MB-DB/K PH,MBDB POWDER PACKET GT SCH ×2 (15:05→22:21)
[2016-12-25] MEDS: MEROPENEM 500 MG in DEXTROSE 5%-WATER - 100 ML IVPB SCH ×3 (02:24→17:08)
[2016-12-25] MEDS: NAPH,MB-DB/K PH,MBDB POWDER PACKET GT SCH (05:53)
[2016-12-25] MEDS ORDERED: INSULIN (NOVOLOG) ASPART 100 UNITS/ML 10ML VIAL ONE ×4 (06:22→21:27)
[2016-12-25] MEDS: INSULIN SLIDING SCALE (NOVOLOG) 1 VIAL SQ SCH ×4 (06:24→21:45)
[2016-12-25 07:18] LABS: BASOPHIL 0.2 % (0-2.0); EOSINOPHIL 1.3 % (0-4.5); MCH 31.3 pg (25.7-33.7); MCHC 32.8 g/dl (32.0-36.0); MEAN CELL VOLUME 95.4 fl (80-96); NEUTROPHILS 69.5 % (42.8-82.8); PLATELET COUNT 207 K/MM3 (134-434); RDW 22.1 % (11.6-15.6); WHITE BLOOD COUNT 7.8 K/mm3 (4.0-10.0)
--- NOTE | 2016-12-25 07:18 | PN ---
Progress Note (short form) - Note Progress Note: Renal Follow up for Hypernatremia/GIANNI Pt seen and examined at the bedside awake, non verbal no overnight events on IVF and tube feeds Vital Signs Temperature 98.7 F 12/25/16 06:38 Pulse Rate 82 12/25/16 06:38 Respiratory Rate 18 12/25/16 06:38 Blood Pressure 139/74 12/25/16 06:38 O2 Sat by Pulse Oximetry (%) 95 12/24/16 21:00 Intake & Output 12/22/16 12/23/16 12/24/16 12/25/16 23:59 23:59 23:59 23:59 Intake Total 1750 2600 3540 1250 Output Total 250 1400 350 Balance 1750 2350 2140 900 Weight 102 lb 3 oz 102 lb 6 oz 113 lb 11.2 oz awake and alert, not takking Dry MM, no JVD RRR, + systolic murmur Abd is soft NT/ND, G-tube in place no edema, b/l BKA todays labs pending Current Medications Acetaminophen (Tylenol Oral Solution -) 650 mg GT Q4H PRN PRN Reason: FEVER OR PAIN Last Admin: 12/24/16 06:41 Dose: 650 mg Doxazosin Mesylate (Cardura -) 2 mg GT DAILY [facility] Last Admin: 12/24/16 10:04 Dose: Not Given Escitalopram Oxalate (Lexapro Oral Solution -) 10 mg GT DAILY [facility] Last Admin: 12/24/16 10:10 Dose: 10 mg Heparin Sodium (Porcine) (Heparin -) 5,000 unit SQ BID [facility] Last Admin: 12/24/16 22:21 Dose: 5,000 unit Meropenem 500 mg/ Dextrose 100 mls @ 200 mls/hr IVPB Q8H-IV [facility] Last Admin: 12/25/16 02:24 Dose: 200 mls/hr Dextrose/Sodium Chloride (D5-1/2ns+40 Meq Kcl -) 1,000 mls @ 100 mls/hr IV ASDIR [facility] Last Admin: 12/24/16 13:10 Dose: 100 mls/hr Insulin Aspart (Novolog Vial Sliding Scale -) 1 vial SQ ACHS [facility] PRN Reason: Protocol Last Admin: 12/25/16 06:24 Dose: 2 units Ranitidine HCl (Zantac Oral Solution -) 150 mg GT DAILY [facility] Last Admin: 12/24/16 10:10 Dose: 150 mg A/P 81 year old woman well known to our service with hx of dementia, PVD s/p b/l BKA , Hypertension, HLD, GERD, Sacral decubitis ulcers who presented from [place] with Fever with GIANNI And Hypernatermia #GIANNI with Hypernatremia (baseline Cr is 0.7) Etiology of GIANNI likely volume depletion, renal hypoperfusion in setting of sepsis Renal function now improve to baseline today labs pending continue hypotonic saline for now #Fever/Sepsis Continue Abx as per ID f/u cultures would avoid NSAIDs as pt has GIANNI #Anemia Trend CBC Transfuse as needed #Hypophosphatemia todays levels pending Thank you Vahid Manzano DO
[2016-12-25 07:44] LABS: ANION GAP 5 (8-16); CALCIUM 7.2 mg/dL (8.5-10.1); CO2 22 mmol/L (21-32); CREATININE 0.6 mg/dL (0.55-1.02); GLUCOSE,RANDOM 232 mg/dL (74-106); PHOSPHOROUS 2.5 mg/dL (2.5-4.9)
--- NOTE | 2016-12-25 08:19 | PN ---
Progress Note, Physician Chief Complaint: ID Meropenem day 3 Rx Now afebrile - Current Medication List Current Medications: Active Medications Acetaminophen (Tylenol Oral Solution -) 650 mg GT Q4H PRN PRN Reason: FEVER OR PAIN Last Admin: 12/24/16 06:41 Dose: 650 mg Doxazosin Mesylate (Cardura -) 2 mg GT DAILY [facility] Last Admin: 12/24/16 10:04 Dose: Not Given Escitalopram Oxalate (Lexapro Oral Solution -) 10 mg GT DAILY [facility] Last Admin: 12/24/16 10:10 Dose: 10 mg Heparin Sodium (Porcine) (Heparin -) 5,000 unit SQ BID [facility] Last Admin: 12/24/16 22:21 Dose: 5,000 unit Meropenem 500 mg/ Dextrose 100 mls @ 200 mls/hr IVPB Q8H-IV [facility] Last Admin: 12/25/16 02:24 Dose: 200 mls/hr Dextrose/Sodium Chloride (D5-1/2ns+40 Meq Kcl -) 1,000 mls @ 100 mls/hr IV ASDIR [facility] Last Admin: 12/24/16 13:10 Dose: 100 mls/hr Insulin Aspart (Novolog Vial Sliding Scale -) 1 vial SQ ACHS [facility] PRN Reason: Protocol Last Admin: 12/25/16 06:24 Dose: 2 units Ranitidine HCl (Zantac Oral Solution -) 150 mg GT DAILY [facility] Last Admin: 12/24/16 10:10 Dose: 150 mg - Objective Vital Signs: Vital Signs Temperature 98.7 F 12/25/16 06:38 Pulse Rate 82 12/25/16 06:38 Respiratory Rate 18 12/25/16 06:38 Blood Pressure 139/74 12/25/16 06:38 O2 Sat by Pulse Oximetry (%) 95 12/24/16 21:00 Constitutional: Yes: Thin Neck: Yes: WNL, Supple Cardiovascular: Yes: S1, S2 Respiratory: Yes: WNL, Regular, CTA Bilaterally Gastrointestinal: Yes: WNL, Normal Bowel Sounds, Soft Labs: CBC, BMP 12/25/16 06:15 12/25/16 06:15 INR, PTT INR 1.03 (0.82-1.09) 12/21/16 13:38 Assessment/Plan Microbiology 12/21/16 16:18 Urine - Urostomy Bag Urine Culture - Preliminary Lactose Fermenting Neg Bacilli Non Lactose Fermenting Gnb 12/21/16 13:38 Blood - Peripheral Venous Blood Culture - Preliminary NO GROWTH OBTAINED AFTER 72 HOURS, INCUBATION TO CONTINUE FOR 2 DAYS. Laboratory Tests 12/25/16 12/25/16 06:15 06:15 WBC 7.8 Hgb 8.6 L D Hct 26.1 L D Plt Count 207 BUN 28 H D Creatinine 0.6 Assessment UTI fever resolved History of MDRO culture pending Plan Seems to have responded though would not be surprised if the culture Carbapenem resistant organism Anastacia VERMA
--- NOTE | 2016-12-25 10:14 | PN ---
Progress Note, Physician Chief Complaint: CAUTI History of Present Illness: NAD, in bed seen by ID, Renal, endocrinology received 1 unit of prbc overnight H/H improved -IV abx- meropenem - Current Medication List Current Medications: Active Medications Acetaminophen (Tylenol Oral Solution -) 650 mg GT Q4H PRN PRN Reason: FEVER OR PAIN Last Admin: 12/24/16 06:41 Dose: 650 mg Doxazosin Mesylate (Cardura -) 2 mg GT DAILY [facility] Last Admin: 12/24/16 10:04 Dose: Not Given Escitalopram Oxalate (Lexapro Oral Solution -) 10 mg GT DAILY [facility] Last Admin: 12/24/16 10:10 Dose: 10 mg Heparin Sodium (Porcine) (Heparin -) 5,000 unit SQ BID [facility] Last Admin: 12/24/16 22:21 Dose: 5,000 unit Meropenem 500 mg/ Dextrose 100 mls @ 200 mls/hr IVPB Q8H-IV [facility] Last Admin: 12/25/16 02:24 Dose: 200 mls/hr Dextrose/Sodium Chloride (D5-1/2ns+40 Meq Kcl -) 1,000 mls @ 100 mls/hr IV ASDIR [facility] Last Admin: 12/24/16 13:10 Dose: 100 mls/hr Insulin Aspart (Novolog Vial Sliding Scale -) 1 vial SQ ACHS [facility] PRN Reason: Protocol Last Admin: 12/25/16 06:24 Dose: 2 units Ranitidine HCl (Zantac Oral Solution -) 150 mg GT DAILY [facility] Last Admin: 12/24/16 10:10 Dose: 150 mg - Objective Vital Signs: Vital Signs Temperature 98.7 F 12/25/16 06:38 Pulse Rate 82 12/25/16 06:38 Respiratory Rate 18 12/25/16 06:38 Blood Pressure 139/74 12/25/16 06:38 O2 Sat by Pulse Oximetry (%) 95 12/24/16 21:00 Constitutional: Yes: Well Nourished, No Distress, Calm Cardiovascular: Yes: Regular Rate and Rhythm Respiratory: Yes: Regular Gastrointestinal: Yes: Normal Bowel Sounds Extremities: Yes: Amputation (BLLE) Labs: CBC, BMP 12/25/16 06:15 12/25/16 06:15 INR, PTT INR 1.03 (0.82-1.09) 12/21/16 13:38 Problem List - Problems (1) Anemia Assessment/Plan: -chronic -received 1 units PRBC overnight -h/h stable, continue to monitor -hematology consult Code(s): D64.9 - ANEMIA, UNSPECIFIED Qualifiers: Anemia type: iron deficiency Iron deficiency anemia type: unspecified iron deficiency Qualified Code(s): D50.9 - Iron deficiency anemia, unspecified (2) Sacral decubitus ulcer, stage IV Assessment/Plan: -IV abx -IV fluids -offloading Code(s): L89.154 - PRESSURE ULCER OF SACRAL REGION, STAGE 4 (3) Hypernatremia Assessment/Plan: -resolved Code(s): E87.0 - HYPEROSMOLALITY AND HYPERNATREMIA (4) Hypoglycemia Assessment/Plan: -improved -IV d5 1/2 ns with K+ -long acting insulin held -continue Novolog sliding scale -endocrine already on board Code(s): E16.2 - HYPOGLYCEMIA, UNSPECIFIED (5) Hypokalemia Assessment/Plan: -normalized -IV fluids with K+ -continue to monitor Code(s): E87.6 - HYPOKALEMIA (6) Neurogenic bladder Assessment/Plan: -chronic conley in place Code(s): N31.9 - NEUROMUSCULAR DYSFUNCTION OF BLADDER, UNSPECIFIED (7) UTI (urinary tract infection) Assessment/Plan: -IV abx -IV fluids -Chronic conley catheter for neurogenic bladder -ID consult Code(s): N39.0 - URINARY TRACT INFECTION, SITE NOT SPECIFIED Qualifiers: Hematuria presence: without hematuria Assessment/Plan see problem list
[2016-12-25] MEDS ORDERED: PT OWN MED DRAWER 7, Y5N ONE ×2 (11:08→16:01)
[2016-12-25] MEDS: HEPARIN NA (PORCINE) 5,000 UNITS/ML 1ML VIAL SQ SCH ×2 (11:12→21:45)
[2016-12-25] MEDS: DOXAZOSIN MESYLATE 2 MG TABLET (FP) GT SCH (11:12)
[2016-12-25] MEDS: ESCITALOPRAM OXALATE 5 MG/5 ML GT SCH (11:12)
[2016-12-25] MEDS: D5-1/2NS+40 MEQ KCL - 1,000 ML IV SCH (11:13)
[2016-12-25] MEDS: RANITIDINE HCL 150 MG/10 ML UNIT-DOSE GT SCH (11:13)
--- NOTE | 2016-12-25 20:16 | CONSULT ---
Consult - text type - Consultation Consultation Note: 81 y/o F with a PMHx of anemia, CVA, CHF, IDDM, HTN, HLD, acute kidney failure, thyroid disease, anxiety, agitation, depression [facility]. 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 Cardio/Vascular: Yes: Aortic Stenosis, CHF, HTN, Hyperlipdemia Pulmonary: Yes: COPD Gastrointestinal: Yes: GERD Renal/: Yes: Renal Inusuff Endocrine: Yes: Diabetes Mellitus Dermatology: Yes: Other (PU) - Smoking History Smoking history: Never smoked - Social History Usual Living Arrangement: Long Term Home Medications - Allergies Allergies/Adverse Reactions: Allergies Allergy/AdvReac Type Severity Reaction Status Date / Time No Known Drug Allergies Allergy Verified 12/08/16 03:39 - Home Medications Home Medications: Ambulatory Orders Acetaminophen Oral Solution [Tylenol 160mg/5mL Oral Solution -] 650 mg GT Q6H PRN 12/08/16 Doxazosin Mesylate [Cardura] 2 mg GT DAILY 12/08/16 Escitalopram Oxalate [Lexapro 5mg/5mL Oral Solution -] 10 mg GT DAILY 12/08/16 FENTANYL 12mcg PATCH [DURAGESIC 12mcg PATCH -] 1 each TD Q72H 12/08/16 Ferrous Sulfate *Liquid* [Feosol *Liquid*] 330 mg GT TID 12/08/16 Heparin - 5,000 units IJ BID 12/08/16 Insulin Aspart [Novolog Flexpen] 0 unit SQ TID 12/08/16 Insulin Detemir [Levemir Flextouch] 18 unit SQ HS 12/08/16 Lactobacillus Acidophilus [Acidophilus] 1 each GT DAILY 12/08/16 Naph,Mb-Db/K pH,Mbdb [PHOS-NaK PACKET -] 1 packet GT DAILY 12/08/16 Ranitidine HCl 150 mg GT DAILY 12/08/16 Vitamin B Comp W-C [Nephro-Rafael -] 1 tablet GT DAILY 12/08/16 Ascorbate Calcium [Vitamin C] 500 mg GT Q8H 12/21/16 Vancomycin/0.9 % Sod Chloride [Vanco 750 mg/250 ml-0.9% NaCl] 750 mg IV DAILY Vitamin B Comp W-C [Nephro-Rafael -] 1 tablet GT DAILY 12/21/16 Active Medications Generic Name Dose Route Start Last Admin Trade Name Sohail PRN Reason Stop Dose Admin Acetaminophen 650 mg 12/22/16 13:50 12/24/16 06:41 Tylenol Oral Solution - GT 650 mg Q4H PRN Administration FEVER OR PAIN Doxazosin Mesylate 2 mg 12/22/16 10:00 12/25/16 11:12 Cardura - GT 2 mg DAILY [facility] Administration Escitalopram Oxalate 10 mg 12/22/16 10:00 12/25/16 11:12 Lexapro Oral Solution - GT 10 mg DAILY [facility] Administration Heparin Sodium (Porcine) 5,000 unit 12/21/16 22:00 12/25/16 11:12 Heparin - SQ 5,000 unit BID [facility] Administration Meropenem 500 mg/ Dextrose 100 mls @ 200 mls/hr 12/22/16 11:00 12/25/16 17:08 IVPB 200 mls/hr Q8H-IV [facility] Administration Dextrose/Sodium Chloride 1,000 mls @ 82 mls/hr 12/25/16 10:24 12/25/16 11:13 D5-1/2ns+40 Meq Kcl - IV 82 mls/hr ASDIR [facility] Administration Insulin Aspart 1 vial 12/24/16 09:05 12/25/16 16:07 Novolog Vial Sliding Scale - SQ Not Given ACHS [facility] Protocol Ranitidine HCl 150 mg 12/22/16 10:00 12/25/16 11:13 Zantac Oral Solution - GT 150 mg DAILY [facility] Administration Physical Exam Last Vital Signs Temp Pulse Resp BP Pulse Ox 98.8 F 89 19 119/70 95 12/25/16 13:49 12/25/16 13:49 12/25/16 13:49 12/25/16 13:49 12/25/16 08:00 Cor: RSR, No murmurs, No gallops Lungs: Clear to P&A Abd: Soft, Normal bowel sounds, No organomegaly Ext:No significant edema Skin: No rashes, Integument intact Abnormal Lab Results 12/24/16 12/25/16 12/25/16 21:15 06:15 06:15 RBC 2.74 L D Hgb 8.6 L D Hct 26.1 L D RDW 22.1 H Monocytes % 3.0 L Chloride 118 H Anion Gap 5 L BUN 28 H D Random Glucose 232 H D Calcium 7.2 L Antibody Screen Positive H Crossmatch See Detail Problem List - Problems (1) C. difficile diarrhea Code(s): A04.7 - ENTEROCOLITIS DUE TO CLOSTRIDIUM DIFFICILE (2) Sacral decubitus ulcer, stage IV Code(s): L89.154 - PRESSURE ULCER OF SACRAL REGION, STAGE 4 (3) (HFpEF) heart failure with preserved ejection fraction Code(s): I50.9 - HEART FAILURE, UNSPECIFIED (4) Diabetes Code(s): E11.9 - TYPE 2 DIABETES MELLITUS WITHOUT COMPLICATIONS Qualifiers: Diabetes mellitus type: type 2 Diabetes mellitus complication detail: with other skin ulcer Assessment/Plan Current Active Problems Anemia (Acute) C. difficile diarrhea (Acute) Cellulitis and abscess of buttock (Acute) Hyperkalemia (Acute) Sacral decubitus ulcer, stage IV (Acute) diabetes mellitus/chronic wound infection diabetic neuropathy dementia 80 y/o patient with multiple comorbidities, dementia severe, anemia anemia--normocytic iron studies s/o anemia of chronic disease, on ferrous sulfate with elevated ferritin, low tibc. iron sat nl--12/09/16 on feosol/vit. c check stool occult B12/TSH/fT4/LDH nl Jerry + but LDH nl ESR elevated, RF elevated , MYAH + CT a/p recently--bibasal consolidation both lobes Rt. > Lt. with atelectasias, gallstones, kidney stones, ? colitis
[2016-12-26] MEDS ORDERED: PT OWN MED DRAWER 7, Y5N ONE ×3 (01:05→16:39)
[2016-12-26] MEDS: MEROPENEM 500 MG in DEXTROSE 5%-WATER - 100 ML IVPB SCH ×3 (01:07→17:04)
[2016-12-26] MEDS: D5-1/2NS+40 MEQ KCL - 1,000 ML IV SCH (04:10)
[2016-12-26] MEDS: INSULIN SLIDING SCALE (NOVOLOG) 1 VIAL SQ SCH ×4 (06:46→21:35)
[2016-12-26] MEDS ORDERED: INSULIN (NOVOLOG) ASPART 100 UNITS/ML 10ML VIAL ONE ×3 (06:49→21:29)
[2016-12-26] MEDS ORDERED: D5-1/2NS+40 MEQ KCL - 1,000 ML IV SCH (07:04)
[2016-12-26 08:21] LABS: ANION GAP 8 (8-16); CALCIUM 7.5 mg/dL (8.5-10.1); CO2 23 mmol/L (21-32); CREATININE 0.5 mg/dL (0.55-1.02); GLUCOSE,RANDOM 289 mg/dL (74-106); LDH 143 U/L (84-246); MAGNESIUM 1.8 mg/dL (1.8-2.4)
[2016-12-26] MEDS: RANITIDINE HCL 150 MG/10 ML UNIT-DOSE GT SCH (10:31)
[2016-12-26] MEDS: DOXAZOSIN MESYLATE 2 MG TABLET (FP) GT SCH (10:31)
[2016-12-26] MEDS: HEPARIN NA (PORCINE) 5,000 UNITS/ML 1ML VIAL SQ SCH ×2 (10:31→21:35)
[2016-12-26] MEDS: ESCITALOPRAM OXALATE 5 MG/5 ML GT SCH (10:31)
--- NOTE | 2016-12-26 12:35 | PN ---
Progress Note, Physician Chief Complaint: CAUTI History of Present Illness: NAD, in bed seen by ID, Renal, endocrinology received 1 unit of prbc overnight H/H improved -IV abx- meropenem - Current Medication List Current Medications: Active Medications Acetaminophen (Tylenol Oral Solution -) 650 mg GT Q4H PRN PRN Reason: FEVER OR PAIN Last Admin: 12/24/16 06:41 Dose: 650 mg Doxazosin Mesylate (Cardura -) 2 mg GT DAILY [facility] Last Admin: 12/26/16 10:31 Dose: 2 mg Escitalopram Oxalate (Lexapro Oral Solution -) 10 mg GT DAILY [facility] Last Admin: 12/26/16 10:31 Dose: 10 mg Heparin Sodium (Porcine) (Heparin -) 5,000 unit SQ BID [facility] Last Admin: 12/26/16 10:31 Dose: 5,000 unit Meropenem 500 mg/ Dextrose 100 mls @ 200 mls/hr IVPB Q8H-IV [facility] Last Admin: 12/26/16 10:30 Dose: 200 mls/hr Dextrose/Sodium Chloride (D5-1/2ns+40 Meq Kcl -) 1,000 mls @ 60 mls/hr IV ASDIR [facility] Last Admin: 12/26/16 08:37 Dose: Not Given Insulin Aspart (Novolog Vial Sliding Scale -) 1 vial SQ ACHS [facility] PRN Reason: Protocol Last Admin: 12/26/16 11:38 Dose: 5 units Potassium Phos/Sodium Phos (Phos-Nak Packet -) 1 packet PO TID [facility] Stop: 12/26/16 22:01 Ranitidine HCl (Zantac Oral Solution -) 150 mg GT DAILY [facility] Last Admin: 12/26/16 10:31 Dose: 150 mg - Objective Vital Signs: Vital Signs Temperature 97.8 F 12/26/16 08:00 Pulse Rate 88 12/26/16 08:00 Respiratory Rate 20 12/26/16 08:00 Blood Pressure 130/63 12/26/16 08:00 O2 Sat by Pulse Oximetry (%) 95 12/25/16 21:00 Constitutional: Yes: Well Nourished, No Distress, Calm Cardiovascular: Yes: Regular Rate and Rhythm Respiratory: Yes: Regular Gastrointestinal: Yes: Normal Bowel Sounds Extremities: Yes: Amputation (BLLE) Neurological: Yes: Pre-Existing Deficit Labs: CBC, BMP 12/25/16 06:15 12/26/16 06:00 INR, PTT INR 1.03 (0.82-1.09) 12/21/16 13:38 Problem List - Problems (1) Anemia Assessment/Plan: -chronic -received 1 units PRBC overnight -h/h stable, continue to monitor -hematology consult on board -last stool ob 12/12/16 was negative, would repeat -likely anemia of chronic disease Code(s): D64.9 - ANEMIA, UNSPECIFIED Qualifiers: Anemia type: iron deficiency Iron deficiency anemia type: unspecified iron deficiency Qualified Code(s): D50.9 - Iron deficiency anemia, unspecified; D50.9 - Iron deficiency anemia, unspecified (2) Sacral decubitus ulcer, stage IV Assessment/Plan: -IV abx -IV fluids -offloading Code(s): L89.154 - PRESSURE ULCER OF SACRAL REGION, STAGE 4 (3) Hypoglycemia Assessment/Plan: -improved, now trending high -stop IV d5 1/2 ns with K+ -long acting insulin held -continue Novolog sliding scale -endocrine already on board Code(s): E16.2 - HYPOGLYCEMIA, UNSPECIFIED (4) Hypokalemia Assessment/Plan: -normalized -added KCl through G tube -continue to monitor Code(s): E87.6 - HYPOKALEMIA (5) Neurogenic bladder Assessment/Plan: -chronic conley in place Code(s): N31.9 - NEUROMUSCULAR DYSFUNCTION OF BLADDER, UNSPECIFIED (6) UTI (urinary tract infection) Assessment/Plan: -IV abx -IV fluids -Chronic conley catheter for neurogenic bladder -ID consult Code(s): N39.0 - URINARY TRACT INFECTION, SITE NOT SPECIFIED Qualifiers: Hematuria presence: without hematuria Assessment/Plan see problem list
[2016-12-26] MEDS: NAPH,MB-DB/K PH,MBDB POWDER PACKET PO SCH ×3 (12:55→21:35)
[2016-12-27] MEDS: MEROPENEM 500 MG in DEXTROSE 5%-WATER - 100 ML IVPB SCH ×3 (01:35→17:51)
[2016-12-27 06:06] LABS: SERUM IRON 42 ug/dL (27-139); TOTAL IRON BINDING CAPACITY 117 ug/dL (250-450); UIBC 75 ug/dL (118-369)
[2016-12-27] MEDS: INSULIN SLIDING SCALE (NOVOLOG) 1 VIAL SQ SCH ×4 (06:28→22:11)
[2016-12-27] MEDS ORDERED: INSULIN (NOVOLOG) ASPART 100 UNITS/ML 10ML VIAL ONE ×3 (06:30→22:06)
[2016-12-27 06:48] LABS: MCH 30.9 pg (25.7-33.7); MCHC 32.7 g/dl (32.0-36.0); MEAN CELL VOLUME 94.6 fl (80-96); MEAN PLT VOLUME 8.8 fl (7.5-11.1); PLATELET COUNT 229 K/MM3 (134-434); WHITE BLOOD COUNT 6.1 K/mm3 (4.0-10.0)
[2016-12-27 07:13] LABS: ALBUMIN 1.5 g/dl (3.4-5.0); ALK PHOS 153 U/L (45-117); ANION GAP 8 (8-16); BILIRUBIN,TOTAL 0.5 mg/dL (0.2-1.0); CALCIUM 8.2 mg/dL (8.5-10.1); CO2 26 mmol/L (21-32); CREATININE 0.4 mg/dL (0.55-1.02); GLUCOSE,RANDOM 284 mg/dL (74-106); SGOT/AST 12 U/L (15-37); SGPT/ALT 13 U/L (12-78)
[2016-12-27 08:46] LABS: PLATELET ESTIMATE ADEQUATE (NORMAL); TOTAL CELLS COUNTED 100
[2016-12-27] MEDS ORDERED: PT OWN MED DRAWER 7, Y5N ONE ×2 (09:53→17:46)
[2016-12-27] MEDS: HEPARIN NA (PORCINE) 5,000 UNITS/ML 1ML VIAL SQ SCH ×2 (09:57→21:54)
[2016-12-27] MEDS: ESCITALOPRAM OXALATE 5 MG/5 ML GT SCH (09:59)
[2016-12-27] MEDS ORDERED: POTASSIUM CHLORIDE ORAL LIQUID 20 MEQ/15 ML PO SCH (10:00)
[2016-12-27] MEDS: DOXAZOSIN MESYLATE 2 MG TABLET (FP) GT SCH (10:00)
[2016-12-27] MEDS: RANITIDINE HCL 150 MG/10 ML UNIT-DOSE GT SCH (10:00)
--- NOTE | 2016-12-27 10:31 | PN ---
Progress Note, Physician Chief Complaint: hypoglycemia improved on iv abx remains afebrile now - Current Medication List Current Medications: Active Medications Acetaminophen (Tylenol Oral Solution -) 650 mg GT Q4H PRN PRN Reason: FEVER OR PAIN Last Admin: 12/24/16 06:41 Dose: 650 mg Doxazosin Mesylate (Cardura -) 2 mg GT DAILY [facility] Last Admin: 12/27/16 10:00 Dose: 2 mg Escitalopram Oxalate (Lexapro Oral Solution -) 10 mg GT DAILY [facility] Last Admin: 12/27/16 09:59 Dose: 10 mg Heparin Sodium (Porcine) (Heparin -) 5,000 unit SQ BID [facility] Last Admin: 12/27/16 09:57 Dose: 5,000 unit Meropenem 500 mg/ Dextrose 100 mls @ 200 mls/hr IVPB Q8H-IV [facility] Last Admin: 12/27/16 09:59 Dose: 200 mls/hr Insulin Aspart (Novolog Vial Sliding Scale -) 1 vial SQ ACHS [facility] PRN Reason: Protocol Last Admin: 12/27/16 06:28 Dose: 7 units Potassium Chloride (Potassium Chloride Oral Liquid) 20 meq PO DAILY [facility] Last Admin: 12/27/16 09:59 Dose: 20 meq Ranitidine HCl (Zantac Oral Solution -) 150 mg GT DAILY [facility] Last Admin: 12/27/16 10:00 Dose: 150 mg - Objective Vital Signs: Vital Signs Temperature 98.6 F 12/27/16 07:55 Pulse Rate 96 H 12/27/16 07:55 Respiratory Rate 20 12/27/16 07:55 Blood Pressure 101/59 12/27/16 07:55 O2 Sat by Pulse Oximetry (%) 99 12/27/16 08:42 Constitutional: Yes: Calm Neck: Yes: Trachea Midline Cardiovascular: Yes: Regular Rate and Rhythm, Murmur, S1, S2 Respiratory: Yes: CTA Bilaterally, Diminished (at bases) Gastrointestinal: Yes: Normal Bowel Sounds, Soft, Other (g tube) Genitourinary: Yes: Conley Present Edema: No Neurological: Yes: Other (more awake today moaning) Labs: CBC, BMP 12/27/16 06:25 12/27/16 06:25 INR, PTT INR 1.03 (0.82-1.09) 12/21/16 13:38 Problem List - Problems (1) Fever Assessment/Plan: ct scan done report reviewed right basilar consolidation and thickening of sigmoid descending and transverse colon possible coltis on iv abx Code(s): R50.9 - FEVER, UNSPECIFIED (2) UTI (urinary tract infection) Assessment/Plan: Microbiology 12/21/16 16:18 Urine - Urostomy Bag Urine Culture - Final Klebsiella Pneumoniae - Esbl Klebsiella Pneumoniae - Esbl#2 h/o MDR UTI on meropenem contact isolation WBC improved no more fever abx duration per ID Code(s): N39.0 - URINARY TRACT INFECTION, SITE NOT SPECIFIED Qualifiers: Hematuria presence: without hematuria (3) Sacral decubitus ulcer, stage IV Assessment/Plan: dvt ppx frequent turn position bed bound Code(s): L89.154 - PRESSURE ULCER OF SACRAL REGION, STAGE 4 (4) Hypernatremia Assessment/Plan: improved Code(s): E87.0 - HYPEROSMOLALITY AND HYPERNATREMIA (5) Diabetes Assessment/Plan: hypoglycemic episodes resolved since levemir was discontinue stop ivf as well on slidiing scale Code(s): E11.9 - TYPE 2 DIABETES MELLITUS WITHOUT COMPLICATIONS Qualifiers: Diabetes mellitus type: type 2 Diabetes mellitus complication detail: with other skin ulcer (6) Neurogenic bladder Assessment/Plan: conley cath chronic conley Code(s): N31.9 - NEUROMUSCULAR DYSFUNCTION OF BLADDER, UNSPECIFIED (7) Hypoglycemia Assessment/Plan: resolved levemir stopped Code(s): E16.2 - HYPOGLYCEMIA, UNSPECIFIED (8) Anemia Assessment/Plan: s/p PRBC appreicate heme note h/h improved 9.3/28.3 stool occult negative on 12/27 on ferrous sulfate and iron Code(s): D64.9 - ANEMIA, UNSPECIFIED Qualifiers: Anemia type: iron deficiency Iron deficiency anemia type: unspecified iron deficiency Qualified Code(s): D50.9 - Iron deficiency anemia, unspecified; D50.9 - Iron deficiency anemia, unspecified (9) Hypokalemia Assessment/Plan: improved will cut back on the dose of kcl Code(s): E87.6 - HYPOKALEMIA
[2016-12-27] MEDS: POTASSIUM CHLORIDE ORAL LIQUID 20 MEQ/15 ML PO SCH (11:12)
--- NOTE | 2016-12-27 11:24 | PN ---
Progress Note (short form) - Note Progress Note: abdominal painFUA r/o ileus ct scan done on 12/15 shows possible colitis hold tube feeds GI eval Problem List - Problems (1) Fever Code(s): R50.9 - FEVER, UNSPECIFIED (2) UTI (urinary tract infection) Code(s): N39.0 - URINARY TRACT INFECTION, SITE NOT SPECIFIED Qualifiers: Hematuria presence: without hematuria (3) Sacral decubitus ulcer, stage IV Code(s): L89.154 - PRESSURE ULCER OF SACRAL REGION, STAGE 4 (4) Hypernatremia Code(s): E87.0 - HYPEROSMOLALITY AND HYPERNATREMIA (5) Diabetes Code(s): E11.9 - TYPE 2 DIABETES MELLITUS WITHOUT COMPLICATIONS Qualifiers: Diabetes mellitus type: type 2 Diabetes mellitus complication detail: with other skin ulcer (6) Neurogenic bladder Code(s): N31.9 - NEUROMUSCULAR DYSFUNCTION OF BLADDER, UNSPECIFIED (7) Hypoglycemia Code(s): E16.2 - HYPOGLYCEMIA, UNSPECIFIED (8) Anemia Code(s): D64.9 - ANEMIA, UNSPECIFIED Qualifiers: Anemia type: iron deficiency Iron deficiency anemia type: unspecified iron deficiency Qualified Code(s): D50.9 - Iron deficiency anemia, unspecified; D50.9 - Iron deficiency anemia, unspecified (9) Hypokalemia Code(s): E87.6 - HYPOKALEMIA
--- NOTE | 2016-12-27 15:07 | PN ---
Progress Note (short form) - Note Progress Note: afebrile no diarrhea reported Vital Signs Period Temp Pulse Resp BP Sys/Chávez Pulse Ox Last 24 Hr 98.2 F-99.2 F 80-96 20-32 101-136/58-80 99-100 cor-rrr llungs decreased bs at bases abd flat, soft,nt +GT ext bilateral BKA ct scan with RLL consolidation, ?colitis CBC, BMP 12/27/16 06:25 12/27/16 06:25 Microbiology 12/21/16 13:38 Blood - Peripheral Venous Blood Culture - Final NO GROWTH AFTER 5 DAYS INCUBATION 12/21/16 16:18 Urine - Urostomy Bag Urine Culture - Final Klebsiella Pneumoniae - Esbl Klebsiella Pneumoniae - Esbl#2 Current Medications Acetaminophen (Tylenol Oral Solution -) 650 mg GT Q4H PRN PRN Reason: FEVER OR PAIN Last Admin: 12/24/16 06:41 Dose: 650 mg Doxazosin Mesylate (Cardura -) 2 mg GT DAILY [facility] Last Admin: 12/27/16 10:00 Dose: 2 mg Escitalopram Oxalate (Lexapro Oral Solution -) 10 mg GT DAILY [facility] Last Admin: 12/27/16 09:59 Dose: 10 mg Heparin Sodium (Porcine) (Heparin -) 5,000 unit SQ BID [facility] Last Admin: 12/27/16 09:57 Dose: 5,000 unit Meropenem 500 mg/ Dextrose 100 mls @ 200 mls/hr IVPB Q8H-IV [facility] Last Admin: 12/27/16 09:59 Dose: 200 mls/hr Insulin Aspart (Novolog Vial Sliding Scale -) 1 vial SQ ACHS [facility] PRN Reason: Protocol Last Admin: 12/27/16 11:25 Dose: 5 units Potassium Chloride (Potassium Chloride Oral Liquid) 10 meq PO DAILY [facility] Last Admin: 12/27/16 11:12 Dose: Not Given Ranitidine HCl (Zantac Oral Solution -) 150 mg GT DAILY [facility] Last Admin: 12/27/16 10:00 Dose: 150 mg a/p fevers ct scan with pneumonia RLL and colisit (history of cdiff in October) finish 7 days meropenem, now day #5, add po flagyl sacral ulcer- clean history cdiff history resistant organisms contact isolation Problem List - Problems (1) Fever Code(s): R50.9 - FEVER, UNSPECIFIED (2) UTI (urinary tract infection) Code(s): N39.0 - URINARY TRACT INFECTION, SITE NOT SPECIFIED Qualifiers: Hematuria presence: without hematuria
[2016-12-27] MEDS: metroNIDAZOLE 250 MG TABLET GT SCH ×2 (15:49→21:55)
--- NOTE | 2016-12-27 17:30 | PN ---
Progress Note (short form) - Note Progress Note: Renal Follow up for Hypernatremia/GIANNI Pt seen and examined at the bedside awake and alert no acute complaints. no sob, chest pain, abd pain, N/V/D Vital Signs Temperature 98.5 F 12/27/16 14:00 Pulse Rate 96 H 12/27/16 14:00 Respiratory Rate 22 12/27/16 14:00 Blood Pressure 122/58 12/27/16 14:00 O2 Sat by Pulse Oximetry (%) 99 12/27/16 08:42 Intake & Output 12/24/16 12/25/16 12/26/16 12/27/16 23:59 23:59 23:59 23:59 Intake Total 3540 2828 3744 1280 Output Total 1400 1300 2000 300 Balance 2140 1528 1744 980 Weight 102 lb 6 oz 113 lb 11.2 oz 113 lb 2 oz 107 lb 4.8 oz awake and alert, not takking Dry MM, no JVD RRR, + systolic murmur Abd is soft NT/ND, G-tube in place no edema, b/l BKA CBC, BMP 12/27/16 06:25 12/27/16 06:25 Current Medications Acetaminophen (Tylenol Oral Solution -) 650 mg GT Q4H PRN PRN Reason: FEVER OR PAIN Last Admin: 12/24/16 06:41 Dose: 650 mg Doxazosin Mesylate (Cardura -) 2 mg GT DAILY [facility] Last Admin: 12/27/16 10:00 Dose: 2 mg Escitalopram Oxalate (Lexapro Oral Solution -) 10 mg GT DAILY [facility] Last Admin: 12/27/16 09:59 Dose: 10 mg Heparin Sodium (Porcine) (Heparin -) 5,000 unit SQ BID [facility] Last Admin: 12/27/16 09:57 Dose: 5,000 unit Meropenem 500 mg/ Dextrose 100 mls @ 200 mls/hr IVPB Q8H-IV [facility] Last Admin: 12/27/16 09:59 Dose: 200 mls/hr Insulin Aspart (Novolog Vial Sliding Scale -) 1 vial SQ ACHS [facility] PRN Reason: Protocol Last Admin: 12/27/16 16:22 Dose: Not Given Metronidazole (Flagyl -) 500 mg GT TID [facility] Last Admin: 12/27/16 15:49 Dose: 500 mg Potassium Chloride (Potassium Chloride Oral Liquid) 10 meq PO DAILY [facility] Last Admin: 12/27/16 11:12 Dose: Not Given Potassium Phos/Sodium Phos (Phos-Nak Packet -) 1 packet GT TID [facility] Stop: 12/28/16 14:01 Ranitidine HCl (Zantac Oral Solution -) 150 mg GT DAILY [facility] Last Admin: 12/27/16 10:00 Dose: 150 mg A/P 81 year old woman well known to our service with hx of dementia, PVD s/p b/l BKA , Hypertension, HLD, GERD, Sacral decubitis ulcers who presented from [place] with Fever with GIANNI And Hypernatermia #GIANNI with Hypernatremia (baseline Cr is 0.7) Renal function now improved to baseline s/p IVF Na now within normal limits continue free water via G-tube #Fever/Sepsis Continue Abx as per ID f/u cultures #Anemia Trend CBC Transfuse as needed #Hypophosphatemia give neutraphos TID x 3 doses Thank you Vahid Manzano DO
[2016-12-27] MEDS: NAPH,MB-DB/K PH,MBDB POWDER PACKET GT SCH (21:55)
[2016-12-28] MEDS ORDERED: PT OWN MED DRAWER 7, Y5N ONE ×2 (01:34→09:31)
[2016-12-28] MEDS: MEROPENEM 500 MG in DEXTROSE 5%-WATER - 100 ML IVPB SCH ×2 (01:38→09:37)
[2016-12-28] MEDS: metroNIDAZOLE 250 MG TABLET GT SCH ×3 (05:49→21:23)
[2016-12-28] MEDS: NAPH,MB-DB/K PH,MBDB POWDER PACKET GT SCH ×2 (05:49→13:45)
[2016-12-28] MEDS: INSULIN SLIDING SCALE (NOVOLOG) 1 VIAL SQ SCH ×4 (06:31→21:25)
[2016-12-28 06:51] LABS: BASOPHIL 0.1 % (0-2.0); EOSINOPHIL 1.7 % (0-4.5); MCH 31.1 pg (25.7-33.7); MCHC 32.6 g/dl (32.0-36.0); MEAN CELL VOLUME 95.6 fl (80-96); MEAN PLT VOLUME 8.6 fl (7.5-11.1); NEUTROPHILS 65.4 % (42.8-82.8); PLATELET COUNT 237 K/MM3 (134-434); RDW 21.2 % (11.6-15.6); WHITE BLOOD COUNT 6.4 K/mm3 (4.0-10.0)
[2016-12-28 07:05] LABS: ALBUMIN 1.5 g/dl (3.4-5.0); ANION GAP 7 (8-16); BILIRUBIN,TOTAL 0.2 mg/dL (0.2-1.0); CALCIUM 8.3 mg/dL (8.5-10.1); CO2 28 mmol/L (21-32); CREATININE 0.6 mg/dL (0.55-1.02); GLUCOSE,RANDOM 287 mg/dL (74-106); MAGNESIUM 1.9 mg/dL (1.8-2.4); PHOSPHOROUS 2.5 mg/dL (2.5-4.9); SGOT/AST 9 U/L (15-37); SGPT/ALT 12 U/L (12-78)
[2016-12-28 07:06] LABS: ALK PHOS 144 U/L (45-117)
[2016-12-28 08:09] LABS: HAPTOGLOBIN 334 mg/dL (34-200)
[2016-12-28] MEDS: ESCITALOPRAM OXALATE 5 MG/5 ML GT SCH (09:37)
[2016-12-28] MEDS: POTASSIUM CHLORIDE ORAL LIQUID 20 MEQ/15 ML PO SCH (09:37)
[2016-12-28] MEDS: HEPARIN NA (PORCINE) 5,000 UNITS/ML 1ML VIAL SQ SCH ×2 (09:37→21:23)
[2016-12-28] MEDS: RANITIDINE HCL 150 MG/10 ML UNIT-DOSE GT SCH (09:38)
[2016-12-28] MEDS: DOXAZOSIN MESYLATE 2 MG TABLET (FP) GT SCH (09:38)
--- NOTE | 2016-12-28 09:49 | PN ---
Progress Note, Physician Chief Complaint: patient awake alert bgm noted on iv abx meropenem flagyl added colitis - Current Medication List Current Medications: Active Medications Acetaminophen (Tylenol Oral Solution -) 650 mg GT Q4H PRN PRN Reason: FEVER OR PAIN Last Admin: 12/24/16 06:41 Dose: 650 mg Doxazosin Mesylate (Cardura -) 2 mg GT DAILY [facility] Last Admin: 12/28/16 09:38 Dose: 2 mg Escitalopram Oxalate (Lexapro Oral Solution -) 10 mg GT DAILY [facility] Last Admin: 12/28/16 09:37 Dose: 10 mg Heparin Sodium (Porcine) (Heparin -) 5,000 unit SQ BID [facility] Last Admin: 12/28/16 09:37 Dose: 5,000 unit Meropenem 500 mg/ Dextrose 100 mls @ 200 mls/hr IVPB Q8H-IV [facility] Last Admin: 12/28/16 09:37 Dose: 200 mls/hr Insulin Aspart (Novolog Vial Sliding Scale -) 1 vial SQ ACHS [facility] PRN Reason: Protocol Last Admin: 12/28/16 06:31 Dose: 5 units Insulin Detemir (Levemir Vial) 8 units SQ HS [facility] Metronidazole (Flagyl -) 500 mg GT TID [facility] Last Admin: 12/28/16 05:49 Dose: 500 mg Potassium Chloride (Potassium Chloride Oral Liquid) 10 meq PO DAILY [facility] Last Admin: 12/28/16 09:37 Dose: 10 meq Potassium Phos/Sodium Phos (Phos-Nak Packet -) 1 packet GT TID [facility] Stop: 12/28/16 14:01 Last Admin: 12/28/16 05:49 Dose: 1 packet Ranitidine HCl (Zantac Oral Solution -) 150 mg GT DAILY [facility] Last Admin: 12/28/16 09:38 Dose: 150 mg - Objective Vital Signs: Vital Signs Temperature 98.5 F 12/28/16 06:10 Pulse Rate 93 H 12/28/16 06:10 Respiratory Rate 19 12/28/16 06:10 Blood Pressure 119/65 12/28/16 06:10 O2 Sat by Pulse Oximetry (%) 97 12/27/16 22:00 Constitutional: Yes: Calm Cardiovascular: Yes: Regular Rate and Rhythm, Murmur, S1, S2 Respiratory: Yes: CTA Bilaterally Gastrointestinal: Yes: Normal Bowel Sounds, Soft, Other ( g tube) Genitourinary: Yes: Conley Present Edema: No Labs: CBC, BMP 12/28/16 06:15 12/28/16 06:15 INR, PTT INR 1.03 (0.82-1.09) 12/21/16 13:38 Problem List - Problems (1) Fever Assessment/Plan: ct scan done report reviewed right basilar consolidation and thickening of sigmoid descending and transverse colon possible coltis on iv abx meropenem day 09/01 and added on flagyl for RLL and colitis Code(s): R50.9 - FEVER, UNSPECIFIED (2) UTI (urinary tract infection) Assessment/Plan: Microbiology 12/21/16 16:18 Urine - Urostomy Bag Urine Culture - Final Klebsiella Pneumoniae - Esbl Klebsiella Pneumoniae - Esbl#2 h/o MDR UTI on meropenem day 09/01 contact isolation WBC improved no more fever Code(s): N39.0 - URINARY TRACT INFECTION, SITE NOT SPECIFIED Qualifiers: Hematuria presence: without hematuria (3) Sacral decubitus ulcer, stage IV Assessment/Plan: dvt ppx frequent turn position bed bound Code(s): L89.154 - PRESSURE ULCER OF SACRAL REGION, STAGE 4 (4) Hypernatremia Assessment/Plan: improved Code(s): E87.0 - HYPEROSMOLALITY AND HYPERNATREMIA (5) Diabetes Assessment/Plan: will restart low dose of levemir endo follow up Code(s): E11.9 - TYPE 2 DIABETES MELLITUS WITHOUT COMPLICATIONS Qualifiers: Diabetes mellitus type: type 2 Diabetes mellitus complication detail: with other skin ulcer (6) Neurogenic bladder Assessment/Plan: conley cath chronic conley Code(s): N31.9 - NEUROMUSCULAR DYSFUNCTION OF BLADDER, UNSPECIFIED (7) Hypoglycemia Assessment/Plan: resolved Code(s): E16.2 - HYPOGLYCEMIA, UNSPECIFIED (8) Anemia Assessment/Plan: s/p PRBC appreicate heme note h/h improved 9.3/28.3 stool occult negative on 12/27 on ferrous sulfate and iron Code(s): D64.9 - ANEMIA, UNSPECIFIED Qualifiers: Anemia type: iron deficiency Iron deficiency anemia type: unspecified iron deficiency Qualified Code(s): D50.9 - Iron deficiency anemia, unspecified; D50.9 - Iron deficiency anemia, unspecified (9) Hypokalemia Assessment/Plan: improved Code(s): E87.6 - HYPOKALEMIA (10) Hypophosphatemia Assessment/Plan: repleted Code(s): E83.39 - OTHER DISORDERS OF PHOSPHORUS METABOLISM
[2016-12-28 11:48] LABS: ANISOCYTOSIS 3+; HYPOCHROMIA 1+; MACROCYTOSIS 1+; MICROCYTOSIS 2+
--- NOTE | 2016-12-28 12:22 | PN ---
Progress Note (short form) - Note Progress Note: Renal Follow up for Hypernatremia/GIANNI Pt seen and examined at the bedside awake and alert no overnight events on tube feeds and free water Vital Signs Temperature 98.5 F 12/28/16 06:10 Pulse Rate 93 H 12/28/16 06:10 Respiratory Rate 19 12/28/16 06:10 Blood Pressure 119/65 12/28/16 06:10 O2 Sat by Pulse Oximetry (%) 97 12/27/16 22:00 Intake & Output 12/25/16 12/26/16 12/27/16 12/28/16 23:59 23:59 23:59 23:59 Intake Total 2828 3744 2190 Output Total 1300 2000 350 Balance 1528 1744 1840 Weight 113 lb 11.2 oz 113 lb 2 oz 107 lb 4.8 oz 108 lb awake and alert, not takking Dry MM, no JVD RRR, + systolic murmur Abd is soft NT/ND, G-tube in place no edema, b/l BKA CBC, BMP 12/28/16 06:15 12/28/16 06:15 Current Medications Acetaminophen (Tylenol Oral Solution -) 650 mg GT Q4H PRN PRN Reason: FEVER OR PAIN Last Admin: 12/24/16 06:41 Dose: 650 mg Doxazosin Mesylate (Cardura -) 2 mg GT DAILY [facility] Last Admin: 12/28/16 09:38 Dose: 2 mg Escitalopram Oxalate (Lexapro Oral Solution -) 10 mg GT DAILY [facility] Last Admin: 12/28/16 09:37 Dose: 10 mg Heparin Sodium (Porcine) (Heparin -) 5,000 unit SQ BID [facility] Last Admin: 12/28/16 09:37 Dose: 5,000 unit Meropenem 500 mg/ Dextrose 100 mls @ 200 mls/hr IVPB Q8H-IV [facility] Last Admin: 12/28/16 09:37 Dose: 200 mls/hr Insulin Aspart (Novolog Vial Sliding Scale -) 1 vial SQ ACHS [facility] PRN Reason: Protocol Last Admin: 12/28/16 06:31 Dose: 5 units Insulin Detemir (Levemir Vial) 8 units SQ HS [facility] Metronidazole (Flagyl -) 500 mg GT TID [facility] Last Admin: 12/28/16 05:49 Dose: 500 mg Potassium Chloride (Potassium Chloride Oral Liquid) 10 meq PO DAILY [facility] Last Admin: 12/28/16 09:37 Dose: 10 meq Potassium Phos/Sodium Phos (Phos-Nak Packet -) 1 packet GT TID [facility] Stop: 12/28/16 14:01 Last Admin: 12/28/16 05:49 Dose: 1 packet Ranitidine HCl (Zantac Oral Solution -) 150 mg GT DAILY [facility] Last Admin: 12/28/16 09:38 Dose: 150 mg A/P 81 year old woman well known to our service with hx of dementia, PVD s/p b/l BKA , Hypertension, HLD, GERD, Sacral decubitis ulcers who [place] with Fever with GIANNI And Hypernatermia #GIANNI with Hypernatremia (baseline Cr is 0.7) Renal function and Na levels now improved to normal continue tube feeds with free water BUN trending up, will monitor for now #Fever/Sepsis Continue Abx as per ID f/u cultures #Anemia Trend CBC Transfuse as needed #Hypophosphatemia phos levels improve today continue tube feeds (Nephro is low phos) Thank you Vahid Manzano DO
[2016-12-28] MEDS ORDERED: INSULIN (NOVOLOG) ASPART 100 UNITS/ML 10ML VIAL ONE ×2 (12:25→20:53)
--- NOTE | 2016-12-28 13:52 | CON.GI ---
Consult Consult Specialty:: gastroenterology Referred by:: Dr Ragini Hager Reason for Consultation:: abdominal pain - History of Present Illness History of Present Illness: 81 y/ F with PMH of PEG insertion, sacral ulcers, pressure ulcer in the upper right shoulder, bilateral below the knee amputaion was asked to be seen because of abdominal pain associated with non-bloody mucoid stool. There were no complaints of abdominal pain, hard to assess as patient has dementia. - Past Medical History [employer]: Yes: CVA, Dementia Cardio/Vascular: Yes: Aortic Stenosis, CHF, HTN, Hyperlipdemia Pulmonary: Yes: COPD Gastrointestinal: Yes: GERD Renal/: Yes: Renal Inusuff Endocrine: Yes: Diabetes Mellitus Dermatology: Yes: Other (PU) - Alcohol/Substance Use Hx Alcohol Use: No - Smoking History Smoking history: Never smoked Have you smoked in the past 12 months: No Aproximately how many cigarettes per day: 0 - Social History Usual Living Arrangement: [facility] History of Recent Travel: No Home Medications - Allergies Allergies/Adverse Reactions: Allergies Allergy/AdvReac Type Severity Reaction Status Date / Time No Known Drug Allergies Allergy Verified 12/08/16 03:39 - Home Medications Home Medications: Ambulatory Orders Acetaminophen Oral Solution [Tylenol 160mg/5mL Oral Solution -] 650 mg GT Q6H PRN 12/08/16 Doxazosin Mesylate [Cardura] 2 mg GT DAILY 12/08/16 Escitalopram Oxalate [Lexapro 5mg/5mL Oral Solution -] 10 mg GT DAILY 12/08/16 FENTANYL 12mcg PATCH [DURAGESIC 12mcg PATCH -] 1 each TD Q72H 12/08/16 Ferrous Sulfate *Liquid* [Feosol *Liquid*] 330 mg GT TID 12/08/16 Heparin - 5,000 units IJ BID 12/08/16 Insulin Aspart [Novolog Flexpen] 0 unit SQ TID 12/08/16 Insulin Detemir [Levemir Flextouch] 18 unit SQ HS 12/08/16 Lactobacillus Acidophilus [Acidophilus] 1 each GT DAILY 12/08/16 Naph,Mb-Db/K pH,Mbdb [PHOS-NaK PACKET -] 1 packet GT DAILY 12/08/16 Ranitidine HCl 150 mg GT DAILY 12/08/16 Vitamin B Comp W-C [Nephro-Rafael -] 1 tablet GT DAILY 12/08/16 Ascorbate Calcium [Vitamin C] 500 mg GT Q8H 12/21/16 Vancomycin/0.9 % Sod Chloride [Vanco 750 mg/250 ml-0.9% NaCl] 750 mg IV DAILY Vitamin B Comp W-C [Nephro-Rafael -] 1 tablet GT DAILY 12/21/16 Review of Systems Unable to obtain ROS, reason: dementia Physical Exam-GI Vital Signs: Vital Signs Temperature 98.5 F 12/28/16 06:10 Pulse Rate 93 H 12/28/16 06:10 Respiratory Rate 19 12/28/16 06:10 Blood Pressure 119/65 12/28/16 06:10 O2 Sat by Pulse Oximetry (%) 97 12/27/16 22:00 Constitutional: Yes: No Distress Eyes: Yes: Conjunctiva Clear HENT: Yes: Normocephalic Neck: Yes: Trachea Midline Cardiovascular: Yes: Regular Rate and Rhythm Respiratory: Yes: CTA Bilaterally ...Auscultate: Yes: Other (g-tube in place) ...Palpate: Yes: Soft. No: Firm/Rigid, Guarding, Hepatomegaly, Pulsatile Mass, Splenomegaly, Tenderness Labs: CBC, BMP 12/28/16 06:15 12/28/16 06:15 INR, PTT INR 1.03 (0.82-1.09) 12/21/16 13:38 Problem List - Problems (1) Abdominal pain Assessment/Plan: --resolved Code(s): R10.9 - UNSPECIFIED ABDOMINAL PAIN (2) Diarrhea Assessment/Plan: small volume possibly C.diff R> agree with empiric Flagyl use please recall as necessary, ThaNK YOU Code(s): R19.7 - DIARRHEA, UNSPECIFIED
--- NOTE | 2016-12-28 16:17 | PN ---
Progress Note (short form) - Note Progress Note: afebrile NAD Vital Signs Period Temp Pulse Resp BP Sys/Chávez Pulse Ox Last 24 Hr 98 F-98.6 F 90-106 18-20 91-131/50-74 97-99 cor-rrr lungs clear abd soft,nt+GT bilateral bka +conley CBC, BMP 12/28/16 06:15 12/28/16 06:15 Microbiology 12/21/16 13:38 Blood - Peripheral Venous Blood Culture - Final NO GROWTH AFTER 5 DAYS INCUBATION 12/21/16 16:18 Urine - Urostomy Bag Urine Culture - Final Klebsiella Pneumoniae - Esbl Klebsiella Pneumoniae - Esbl#2 a/p fevers ct scan with pneumonia RLL and colitis (history of cdiff in October) today is day #7 meropenem,will d/c continue po flagyl for another 10 days for colitis sacral ulcer- clean history cdiff history resistant organisms contact isolation please call back if needed Problem List - Problems (1) Fever Code(s): R50.9 - FEVER, UNSPECIFIED (2) UTI (urinary tract infection) Code(s): N39.0 - URINARY TRACT INFECTION, SITE NOT SPECIFIED Qualifiers: Hematuria presence: without hematuria
[2016-12-28] MEDS: ACETAMINOPHEN 650 MG/20.3 ML ORAL SOLUTION (CUPS) GT PRN (18:14)
[2016-12-28] MEDS: INSULIN DETEMIR 100 UNITS/ML MDV SQ SCH (21:24)
[2016-12-29] MEDS: INSULIN SLIDING SCALE (NOVOLOG) 1 VIAL SQ SCH ×4 (06:22→21:40)
[2016-12-29] MEDS: metroNIDAZOLE 250 MG TABLET GT SCH ×3 (06:22→21:39)
[2016-12-29 08:15] LABS: BASOPHIL 0.3 % (0-2.0); EOSINOPHIL 2.1 % (0-4.5); MCH 31.2 pg (25.7-33.7); MCHC 32.6 g/dl (32.0-36.0); MEAN CELL VOLUME 95.5 fl (80-96); MEAN PLT VOLUME 8.6 fl (7.5-11.1); NEUTROPHILS 69.3 % (42.8-82.8); PLATELET COUNT 253 K/MM3 (134-434); RDW 21.2 % (11.6-15.6); WHITE BLOOD COUNT 7.6 K/mm3 (4.0-10.0)
[2016-12-29 08:43] LABS: ANION GAP 8 (8-16); CALCIUM 8.7 mg/dL (8.5-10.1); CO2 28 mmol/L (21-32); CREATININE 0.6 mg/dL (0.55-1.02); GLUCOSE,RANDOM 165 mg/dL (74-106); PHOSPHOROUS 3.1 mg/dL (2.5-4.9)
--- NOTE | 2016-12-29 09:27 | PN ---
Progress Note, Physician History of Present Illness: temp 102 yesterday - Current Medication List Current Medications: Active Medications Acetaminophen (Tylenol Oral Solution -) 650 mg GT Q4H PRN PRN Reason: FEVER OR PAIN Last Admin: 12/28/16 18:14 Dose: 650 mg Doxazosin Mesylate (Cardura -) 2 mg GT DAILY [facility] Last Admin: 12/28/16 09:38 Dose: 2 mg Escitalopram Oxalate (Lexapro Oral Solution -) 10 mg GT DAILY [facility] Last Admin: 12/28/16 09:37 Dose: 10 mg Insulin Aspart (Novolog Vial Sliding Scale -) 1 vial SQ ACHS [facility] PRN Reason: Protocol Last Admin: 12/29/16 06:22 Dose: 2 units Insulin Detemir (Levemir Vial) 8 units SQ HS [facility] Last Admin: 12/28/16 21:24 Dose: 8 units Metronidazole (Flagyl -) 500 mg GT TID [facility] Last Admin: 12/29/16 06:22 Dose: 500 mg Potassium Chloride (Potassium Chloride Oral Liquid) 10 meq PO DAILY [facility] Last Admin: 12/28/16 09:37 Dose: 10 meq Ranitidine HCl (Zantac Oral Solution -) 150 mg GT DAILY [facility] Last Admin: 12/28/16 09:38 Dose: 150 mg - Objective Vital Signs: Vital Signs Temperature 98.4 F 12/29/16 07:15 Pulse Rate 97 H 12/29/16 07:15 Respiratory Rate 20 12/29/16 07:15 Blood Pressure 114/63 12/29/16 07:15 O2 Sat by Pulse Oximetry (%) 99 12/28/16 20:28 Cardiovascular: Yes: Murmur, S1, S2 Respiratory: Yes: Regular, CTA Bilaterally Gastrointestinal: Yes: Normal Bowel Sounds, Soft Extremities: Yes: Amputation Labs: CBC, BMP 12/29/16 06:45 12/29/16 06:45 INR, PTT INR 1.03 (0.82-1.09) 12/21/16 13:38 Problem List - Problems (1) Sepsis Code(s): A41.9 - SEPSIS, UNSPECIFIED ORGANISM Qualifiers: (2) Anemia Code(s): D64.9 - ANEMIA, UNSPECIFIED Qualifiers: Anemia type: iron deficiency Iron deficiency anemia type: unspecified iron deficiency Qualified Code(s): D50.9 - Iron deficiency anemia, unspecified; D50.9 - Iron deficiency anemia, unspecified (3) Sacral decubitus ulcer, stage IV Code(s): L89.154 - PRESSURE ULCER OF SACRAL REGION, STAGE 4 (4) Acute kidney injury superimposed on CKD Code(s): N17.9 - ACUTE KIDNEY FAILURE, UNSPECIFIED N18.9 - CHRONIC KIDNEY DISEASE, UNSPECIFIED (5) Type 2 diabetes mellitus with other diabetic kidney complication Code(s): E11.29 - TYPE 2 DIABETES MELLITUS [facility] DIABETIC KIDNEY COMPLICATION Assessment/Plan Problems (1) Fever Assessment/Plan: ct scan done report reviewed right basilar consolidation and thickening of sigmoid descending and transverse colon possible coltis on iv abx meropenem day 09/01 and added on flagyl for RLL and colitis Code(s): R50.9 - FEVER, UNSPECIFIED (2) UTI (urinary tract infection) Assessment/Plan: Microbiology 12/21/16 16:18 Urine - Urostomy Bag Urine Culture - Final Klebsiella Pneumoniae - Esbl Klebsiella Pneumoniae - Esbl#2 h/o MDR UTI on meropenem day 09/01 contact isolation WBC improved no more fever Code(s): N39.0 - URINARY TRACT INFECTION, SITE NOT SPECIFIED Qualifiers: Hematuria presence: without hematuria (3) Sacral decubitus ulcer, stage IV Assessment/Plan: dvt ppx frequent turn position bed bound Code(s): L89.154 - PRESSURE ULCER OF SACRAL REGION, STAGE 4 (4) Hypernatremia Assessment/Plan: improved Code(s): E87.0 - HYPEROSMOLALITY AND HYPERNATREMIA (5) Diabetes Assessment/Plan: will restart low dose of levemir endo follow up Code(s): E11.9 - TYPE 2 DIABETES MELLITUS WITHOUT COMPLICATIONS Qualifiers: Diabetes mellitus type: type 2 Diabetes mellitus complication detail: with other skin ulcer (6) Neurogenic bladder Assessment/Plan: conley cath chronic conley Code(s): N31.9 - NEUROMUSCULAR DYSFUNCTION OF BLADDER, UNSPECIFIED (7) Hypoglycemia Assessment/Plan: resolved Code(s): E16.2 - HYPOGLYCEMIA, UNSPECIFIED (8) Anemia Assessment/Plan: s/p PRBC appreicate heme note h/h improved 9.3/28.3 stool occult negative on 12/27 on ferrous sulfate and iron Code(s): D64.9 - ANEMIA, UNSPECIFIED Qualifiers: Anemia type: iron deficiency Iron deficiency anemia type: unspecified iron deficiency Qualified Code(s): D50.9 - Iron deficiency anemia, unspecified; D50.9 - Iron deficiency anemia, unspecified (9) Hypokalemia Assessment/Plan: improved Code(s): E87.6 - HYPOKALEMIA (10) Hypophosphatemia Assessment/Plan: repleted Code(s): E83.39 - OTHER DISORDERS OF PHOSPHORUS METABOLISM
[2016-12-29] MEDS ORDERED: PT OWN MED DRAWER 7, Y5N ONE (09:50)
[2016-12-29] MEDS: DOXAZOSIN MESYLATE 2 MG TABLET (FP) GT SCH (09:51)
[2016-12-29] MEDS: ESCITALOPRAM OXALATE 5 MG/5 ML GT SCH (09:51)
[2016-12-29] MEDS: RANITIDINE HCL 150 MG/10 ML UNIT-DOSE GT SCH (09:51)
[2016-12-29] MEDS: POTASSIUM CHLORIDE ORAL LIQUID 20 MEQ/15 ML PO SCH (09:52)
--- NOTE | 2016-12-29 10:19 | PN ---
Progress Note (short form) - Note Progress Note: isolated temp 102 last night afebrile since NAD Vital Signs Period Temp Pulse Resp BP Sys/Chávez Pulse Ox Last 24 Hr 97.4 F-102.8 F 97-106 20-21 111-131/53-74 99 cor-rrr lungs clear abd soft,nt +GT bilateral BKA conley CBC, BMP 12/29/16 06:45 12/29/16 06:45 a/p isolated temp last night- now afebrile, will observe today, reculture if she has recurrent fever continue flagyl po history resistant organisms contact isolation d/w Dr Garcia Problem List - Problems (1) Fever Code(s): R50.9 - FEVER, UNSPECIFIED (2) UTI (urinary tract infection) Code(s): N39.0 - URINARY TRACT INFECTION, SITE NOT SPECIFIED Qualifiers: Hematuria presence: without hematuria
--- NOTE | 2016-12-29 13:17 | PN ---
Progress Note (short form) - Note Progress Note: Renal Follow up for Hypernatremia/GIANNI Pt seen and examined at the bedside febrile overnight lethargic today Vital Signs Temperature 98.4 F 12/29/16 07:15 Pulse Rate 97 H 12/29/16 07:15 Respiratory Rate 20 12/29/16 07:15 Blood Pressure 114/63 12/29/16 07:15 O2 Sat by Pulse Oximetry (%) 99 12/28/16 20:28 Intake & Output 12/26/16 12/27/16 12/28/16 12/29/16 23:59 23:59 23:59 23:59 Intake Total 3744 2190 0 1100 Output Total 2000 350 125 600 Balance 1744 1840 -125 500 Weight 113 lb 2 oz 107 lb 4.8 oz 108 lb 108 lb 5 oz awake and alert, not takking Dry MM, no JVD RRR, + systolic murmur Abd is soft NT/ND, G-tube in place no edema, b/l BKA CBC, BMP 12/29/16 06:45 12/29/16 06:45 Laboratory Tests 12/27/16 12/29/16 06:25 06:45 Calcium 8.2 L 8.7 Phosphorus 2.0 L 3.1 D Magnesium 2.0 Albumin 1.5 L Current Medications Acetaminophen (Tylenol Oral Solution -) 650 mg GT Q4H PRN PRN Reason: FEVER OR PAIN Last Admin: 12/28/16 18:14 Dose: 650 mg Doxazosin Mesylate (Cardura -) 2 mg GT DAILY [facility] Last Admin: 12/29/16 09:51 Dose: 2 mg Escitalopram Oxalate (Lexapro Oral Solution -) 10 mg GT DAILY [facility] Last Admin: 12/29/16 09:51 Dose: 10 mg Insulin Aspart (Novolog Vial Sliding Scale -) 1 vial SQ ACHS [facility] PRN Reason: Protocol Last Admin: 12/29/16 12:34 Dose: 2 units Insulin Detemir (Levemir Vial) 8 units SQ HS [facility] Last Admin: 12/28/16 21:24 Dose: 8 units Metronidazole (Flagyl -) 500 mg GT TID [facility] Last Admin: 12/29/16 06:22 Dose: 500 mg Potassium Chloride (Potassium Chloride Oral Liquid) 10 meq PO DAILY [facility] Last Admin: 12/29/16 09:52 Dose: 10 meq Ranitidine HCl (Zantac Oral Solution -) 150 mg GT DAILY [facility] Last Admin: 12/29/16 09:51 Dose: 150 mg A/P 81 year old woman well known to our service with hx of dementia, PVD s/p b/l BKA , Hypertension, HLD, GERD, Sacral decubitis ulcers who presented from [place] with Fever with GIANNI And Hypernatermia #GIANNI with Hypernatremia (baseline Cr is 0.7) Serum Na is stable BUN slighly uptrending, if it continues to rise may need to increase free water further #Fever/Sepsis/Cystitis Continue Abx as per ID f/u cultures #Anemia Trend CBC Transfuse as needed #Hypophosphatemia phos levels improve today continue tube feeds (Nephro is low phos) Thank you Vahid Manzano DO
[2016-12-29] MEDS: ACETAMINOPHEN 650 MG/20.3 ML ORAL SOLUTION (CUPS) GT PRN (17:47)
[2016-12-29] MEDS: INSULIN DETEMIR 100 UNITS/ML MDV SQ SCH (21:39)
[2016-12-29] MEDS ORDERED: INSULIN (NOVOLOG) ASPART 100 UNITS/ML 10ML VIAL ONE (21:57)
[2016-12-30] MEDS: metroNIDAZOLE 250 MG TABLET GT SCH ×3 (05:54→22:10)
[2016-12-30] MEDS: INSULIN SLIDING SCALE (NOVOLOG) 1 VIAL SQ SCH ×4 (06:33→22:10)
[2016-12-30 08:39] LABS: ANION GAP 6 (8-16); CALCIUM 8.6 mg/dL (8.5-10.1); CO2 28 mmol/L (21-32); CREATININE 0.6 mg/dL (0.55-1.02); GLUCOSE,RANDOM 251 mg/dL (74-106); MAGNESIUM 1.9 mg/dL (1.8-2.4); PHOSPHOROUS 2.8 mg/dL (2.5-4.9)
[2016-12-30] MEDS ORDERED: PT OWN MED DRAWER 7, Y5N ONE (10:27)
--- NOTE | 2016-12-30 10:36 | PN ---
Progress Note, Physician Chief Complaint: CAUTI History of Present Illness: NAD, in bed on Flagyl GT low grade temps ID aware monitor for now repeat BC if she continues with fever. - Current Medication List Current Medications: Active Medications Acetaminophen (Tylenol Oral Solution -) 650 mg GT Q4H PRN PRN Reason: FEVER OR PAIN Last Admin: 12/29/16 17:47 Dose: 650 mg Doxazosin Mesylate (Cardura -) 2 mg GT DAILY [facility] Last Admin: 12/29/16 09:51 Dose: 2 mg Escitalopram Oxalate (Lexapro Oral Solution -) 10 mg GT DAILY [facility] Last Admin: 12/29/16 09:51 Dose: 10 mg Insulin Aspart (Novolog Vial Sliding Scale -) 1 vial SQ ACHS [facility] PRN Reason: Protocol Last Admin: 12/30/16 06:33 Dose: 5 units Insulin Detemir (Levemir Vial) 8 units SQ HS [facility] Last Admin: 12/29/16 21:39 Dose: 8 units Metronidazole (Flagyl -) 500 mg GT TID [facility] Last Admin: 12/30/16 05:54 Dose: 500 mg Potassium Chloride (Potassium Chloride Oral Liquid) 10 meq PO DAILY [facility] Last Admin: 12/29/16 09:52 Dose: 10 meq Ranitidine HCl (Zantac Oral Solution -) 150 mg GT DAILY [facility] Last Admin: 12/29/16 09:51 Dose: 150 mg - Objective Vital Signs: Vital Signs Temperature 98.1 F 12/30/16 06:00 Pulse Rate 100 H 12/30/16 06:00 Respiratory Rate 20 12/30/16 06:00 Blood Pressure 115/66 12/30/16 06:00 O2 Sat by Pulse Oximetry (%) 99 12/29/16 20:07 Constitutional: Yes: Well Nourished, No Distress, Calm Cardiovascular: Yes: Regular Rate and Rhythm Respiratory: Yes: Regular Extremities: Yes: Amputation (BLLE) Labs: CBC, BMP 12/29/16 06:45 12/30/16 06:45 INR, PTT INR 1.03 (0.82-1.09) 12/21/16 13:38 Problem List - Problems (1) Anemia Assessment/Plan: -chronic -received 1 units PRBC overnight -h/h stable, continue to monitor -hematology consult on board -last stool ob 12/12/16 was negative, would repeat -likely anemia of chronic disease Code(s): D64.9 - ANEMIA, UNSPECIFIED Qualifiers: Anemia type: iron deficiency Iron deficiency anemia type: unspecified iron deficiency Qualified Code(s): D50.9 - Iron deficiency anemia, unspecified; D50.9 - Iron deficiency anemia, unspecified (2) Sacral decubitus ulcer, stage IV Assessment/Plan: -offloading Code(s): L89.154 - PRESSURE ULCER OF SACRAL REGION, STAGE 4 (3) Hypoglycemia Assessment/Plan: -improved, now trending high -long acting insulin held -continue Novolog sliding scale -endocrine already on board Code(s): E16.2 - HYPOGLYCEMIA, UNSPECIFIED (4) Hypokalemia Assessment/Plan: -normalized -added KCl through G tube -continue to monitor Code(s): E87.6 - HYPOKALEMIA (5) Neurogenic bladder Assessment/Plan: -chronic conley in place Code(s): N31.9 - NEUROMUSCULAR DYSFUNCTION OF BLADDER, UNSPECIFIED (6) UTI (urinary tract infection) Assessment/Plan: - on Flagyl GT -Chronic conley catheter for neurogenic bladder -ID on board Code(s): N39.0 - URINARY TRACT INFECTION, SITE NOT SPECIFIED Qualifiers: Hematuria presence: without hematuria Assessment/Plan see problem list
[2016-12-30] MEDS: DOXAZOSIN MESYLATE 2 MG TABLET (FP) GT SCH (10:43)
[2016-12-30] MEDS: POTASSIUM CHLORIDE ORAL LIQUID 20 MEQ/15 ML PO SCH (10:43)
[2016-12-30] MEDS: RANITIDINE HCL 150 MG/10 ML UNIT-DOSE GT SCH (10:44)
[2016-12-30] MEDS: ESCITALOPRAM OXALATE 5 MG/5 ML GT SCH (10:44)
--- NOTE | 2016-12-30 13:43 | PN ---
Progress Note (short form) - Note Progress Note: Pt seen and examined Chart reviewed Non verbal. Constitutional: Yes: Thin, non verbal Eyes: Yes: Conjunctiva Clear Neck: Yes: Supple Cardiovascular: Yes: Regular Rate and Rhythm Respiratory: Yes: Regular Gastrointestinal: Yes: Normal Bowel Sounds, Soft Extremities: Yes: Amputation Labs: Temp Pulse Resp BP Pulse Ox 98.5 F 93 H 19 119/65 97 12/28/16 06:10 12/28/16 06:10 12/28/16 06:10 12/28/16 06:10 12/27/16 22:00 CBC, BMP 12/28/16 06:15 12/28/16 06:15 Current Medications Generic Name Dose Route Start Last Admin Trade Name Freq PRN Reason Stop Dose Admin Acetaminophen 650 mg 12/22/16 13:50 12/24/16 06:41 Tylenol Oral Solution - GT 650 mg Q4H PRN Administration FEVER OR PAIN Doxazosin Mesylate 2 mg 12/22/16 10:00 12/28/16 09:38 Cardura - GT 2 mg DAILY [facility] Administration Escitalopram Oxalate 10 mg 12/22/16 10:00 12/28/16 09:37 Lexapro Oral Solution - GT 10 mg DAILY [facility] Administration Heparin Sodium (Porcine) 5,000 unit 12/21/16 22:00 12/28/16 09:37 Heparin - SQ 5,000 unit BID [facility] Administration Meropenem 500 mg/ Dextrose 100 mls @ 200 mls/hr 12/22/16 11:00 12/28/16 09:37 IVPB 200 mls/hr Q8H-IV [facility] Administration Insulin Aspart 1 vial 12/24/16 09:05 12/28/16 12:31 Novolog Vial Sliding Scale - SQ 9 units ACHS [facility] Administration Protocol Insulin Detemir 8 units 12/28/16 22:00 Levemir Vial SQ HS [facility] Metronidazole 500 mg 12/27/16 15:15 12/28/16 05:49 Flagyl - GT 500 mg TID [facility] Administration Potassium Chloride 10 meq 12/27/16 10:45 12/28/16 09:37 Potassium Chloride Oral Liquid PO 10 meq DAILY [facility] Administration Potassium Phos/Sodium Phos 1 packet 12/27/16 22:00 12/28/16 05:49 Phos-Nak Packet - GT 12/28/16 14:01 1 packet TID [facility] Administration Ranitidine HCl 150 mg 12/22/16 10:00 12/28/16 09:38 Zantac Oral Solution - GT 150 mg DAILY [facility] Administration 80 y/o patient with multiple comorbidities, dementia severe, non-verbal at baseline, with chronic anemia anemia--normocytic iron studies s/o anemia of chronic disease, on ferrous sulfate with elevated ferritin, low tibc. iron sat nl--12/09/16 on feosol/vit. c B12/TSH/fT4/LDH nl Jerry + but LDH nl ESR elevated, RF elevated , MYAH + in 06/2016, was seen by , thought it was non-specific in the setting acute illness. For now, for anemia, supportive care recommended. Will follow regular transfusion thresholds. type and screen for tomorrow ID f/u
--- NOTE | 2016-12-30 14:49 | CONSULT ---
Consult - Past Medical History RESIDENCE DIRECTOR: Yes: CVA, Dementia Cardio/Vascular: Yes: Aortic Stenosis, CHF, HTN, Hyperlipdemia Pulmonary: Yes: COPD Gastrointestinal: Yes: GERD Renal/: Yes: Renal Inusuff Endocrine: Yes: Diabetes Mellitus Dermatology: Yes: Other (PU) - Alcohol/Substance Use Hx Alcohol Use: No - Smoking History Smoking history: Never smoked Have you smoked in the past 12 months: No Aproximately how many cigarettes per day: 0 - Social History Usual Living Arrangement: Prison History of Recent Travel: No Home Medications - Allergies Allergies/Adverse Reactions: Allergies Allergy/AdvReac Type Severity Reaction Status Date / Time No Known Drug Allergies Allergy Verified 12/08/16 03:39 - Home Medications Home Medications: Ambulatory Orders Acetaminophen Oral Solution [Tylenol 160mg/5mL Oral Solution -] 650 mg GT Q6H PRN 12/08/16 Doxazosin Mesylate [Cardura] 2 mg GT DAILY 12/08/16 Escitalopram Oxalate [Lexapro 5mg/5mL Oral Solution -] 10 mg GT DAILY 12/08/16 FENTANYL 12mcg PATCH [DURAGESIC 12mcg PATCH -] 1 each TD Q72H 12/08/16 Ferrous Sulfate *Liquid* [Feosol *Liquid*] 330 mg GT TID 12/08/16 Heparin - 5,000 units IJ BID 12/08/16 Insulin Aspart [Novolog Flexpen] 0 unit SQ TID 12/08/16 Insulin Detemir [Levemir Flextouch] 18 unit SQ HS 12/08/16 Lactobacillus Acidophilus [Acidophilus] 1 each GT DAILY 12/08/16 Naph,Mb-Db/K pH,Mbdb [PHOS-NaK PACKET -] 1 packet GT DAILY 12/08/16 Ranitidine HCl 150 mg GT DAILY 12/08/16 Vitamin B Comp W-C [Nephro-Rafael -] 1 tablet GT DAILY 12/08/16 Ascorbate Calcium [Vitamin C] 500 mg GT Q8H 12/21/16 Vancomycin/0.9 % Sod Chloride [Vanco 750 mg/250 ml-0.9% NaCl] 750 mg IV DAILY Vitamin B Comp W-C [Nephro-Rafael -] 1 tablet GT DAILY 12/21/16 Physical Exam Vital Signs: Vital Signs Temperature 98.5 F 12/30/16 14:23 Pulse Rate 92 H 10/05/17 14:23 Respiratory Rate 20 12/30/16 14:23 Blood Pressure 103/57 12/30/16 14:23 O2 Sat by Pulse Oximetry (%) 98 12/30/16 09:00 Labs: CBC, BMP 12/29/16 06:45 12/30/16 06:45 Assessment/Plan VA[facility] 81 y/o F with a PMHx of anemia, CVA, CHF, IDDM, HTN, HLD, acute kidney failure, thyroid disease, anxiety, agitation, depression presents to the ED from [facility] with fever. Patient is nonverbal. At [facility], temperature was noted to be 101.8. Patient has a sacral pressure ulcer with a wound vac. History is provided by [place] records. - Past Medical History RESIDENCE DIRECTOR: Yes: CVA, Dementia Cardiovascular: Yes: Aortic Stenosis, CHF, HTN, Hyperlipdemia Pulmonary: Yes: COPD Gastrointestinal: Yes: GERD Renal/: Yes: Renal Inusuff Heme/Onc: Yes: Anemia Endocrine: Yes: Diabetes Mellitus Dermatology: Yes: Other (PU) - Smoking History Smoking history: Never smoked Have you smoked in the past 12 months: No Aproximately how many cigarettes per day: 0 - Alcohol/Substance Use Hx Alcohol Use: No - Social History History of Recent Travel: No Home Medications - Allergies Allergies/Adverse Reactions: Allergies Allergy/AdvReac Type Severity Reaction Status Date / Time No Known Drug Allergies Allergy Verified 12/08/16 03:39 PE head - NC/AT Lung - CTA Heart - RRR abd - soft,nt,nd ext warm, pink. Bl bka Sacrum -- stage 4 sacral ulcer. Clean , pink. A/P Stage 4 sacral ulcer. 1. clean, pink, granulating. 2. Cont saline moist dressing changes daily 3. offload Felipe Rivesr DO
--- NOTE | 2016-12-30 15:11 | PN ---
Progress Note (short form) - Note Progress Note: Renal Follow up for Hypernatremia/GIANNI Pt seen and examined at the bedside no overnight events pt is awake but not talking Vital Signs Temperature 98.5 F 12/30/16 14:23 Pulse Rate 92 H 12/30/16 14:23 Respiratory Rate 20 12/30/16 14:23 Blood Pressure 103/57 12/30/16 14:23 O2 Sat by Pulse Oximetry (%) 98 12/30/16 09:00 Intake & Output 12/27/16 12/28/16 12/29/16 12/30/16 23:59 23:59 23:59 23:59 Intake Total 2190 0 2000 1080 Output Total 232 328 4135 500 Balance 1840 -125 500 580 Weight 107 lb 4.8 oz 108 lb 108 lb 5 oz 118 lb awake and alert, not takking Dry MM, no JVD RRR, + systolic murmur Abd is soft NT/ND, G-tube in place no edema, b/l BKA CBC, BMP 12/29/16 06:45 12/30/16 06:45 Current Medications Acetaminophen (Tylenol Oral Solution -) 650 mg GT Q4H PRN PRN Reason: FEVER OR PAIN Last Admin: 12/29/16 17:47 Dose: 650 mg Doxazosin Mesylate (Cardura -) 2 mg GT DAILY [facility] Last Admin: 12/30/16 10:43 Dose: 2 mg Escitalopram Oxalate (Lexapro Oral Solution -) 10 mg GT DAILY [facility] Last Admin: 12/30/16 10:44 Dose: 10 mg Insulin Aspart (Novolog Vial Sliding Scale -) 1 vial SQ ACHS [facility] PRN Reason: Protocol Last Admin: 12/30/16 11:45 Dose: 5 units Insulin Detemir (Levemir Vial) 8 units SQ HS [facility] Last Admin: 12/29/16 21:39 Dose: 8 units Metronidazole (Flagyl -) 500 mg GT TID [facility] Last Admin: 12/30/16 14:35 Dose: 500 mg Potassium Chloride (Potassium Chloride Oral Liquid) 10 meq PO DAILY [facility] Last Admin: 12/30/16 10:43 Dose: 10 meq Ranitidine HCl (Zantac Oral Solution -) 150 mg GT DAILY [facility] Last Admin: 12/30/16 10:44 Dose: 150 mg A/P 81 year old woman well known to our service with hx of dementia, PVD s/p b/l BKA , Hypertension, HLD, GERD, Sacral decubitis ulcers who presented from [place] with Fever with GIANNI And Hypernatermia #GIANNI with Hypernatremia (baseline Cr is 0.7) Serum Na is stable Trend BUN/Cr, Na daily #Fever/Sepsis/Cystitis Continue Abx as per ID f/u cultures #Anemia Trend CBC Transfuse as needed #Hypophosphatemia improved, trend phos levels Thank you Vahid Manzano DO
--- NOTE | 2016-12-30 15:22 | PN ---
Progress Note (short form) - Note Progress Note: fevers trending down tmax-100 NAD Vital Signs Period Temp Pulse Resp BP Sys/Chávez Pulse Ox Last 24 Hr 97.7 F-100 F 92-108 20-21 101-122/55-74 98-99 cor-rrr lungs clear abd soft,nt +GT ext bilateral BKA CBC, BMP 12/29/16 06:45 12/30/16 06:45 a/p afebrile- can d/c back to [place] in [place] if she remains afebrile continue flagyl to finish 10 days for colitis plan full fever w/u if she spikes tmeps again history resistant organisms contact isolation Problem List - Problems (1) Fever Code(s): R50.9 - FEVER, UNSPECIFIED (2) UTI (urinary tract infection) Code(s): N39.0 - URINARY TRACT INFECTION, SITE NOT SPECIFIED Qualifiers: Hematuria presence: without hematuria
[2016-12-30] MEDS: INSULIN DETEMIR 100 UNITS/ML MDV SQ SCH (22:10)
[2016-12-31] MEDS: metroNIDAZOLE 250 MG TABLET GT SCH ×3 (05:35→22:49)
[2016-12-31] MEDS: INSULIN SLIDING SCALE (NOVOLOG) 1 VIAL SQ SCH ×4 (06:36→22:55)
[2016-12-31 07:57] LABS: MCH 31.5 pg (25.7-33.7); MCHC 32.8 g/dl (32.0-36.0); MEAN CELL VOLUME 96.1 fl (80-96); MEAN PLT VOLUME 8.5 fl (7.5-11.1); PLATELET COUNT 270 K/MM3 (134-434); RDW 21.4 % (11.6-15.6); WHITE BLOOD COUNT 7.2 K/mm3 (4.0-10.0)
[2016-12-31 08:29] LABS: ALBUMIN 1.4 g/dl (3.4-5.0); ANION GAP 7 (8-16); CALCIUM 8.4 mg/dL (8.5-10.1); CO2 29 mmol/L (21-32); GLUCOSE,RANDOM 210 mg/dL (74-106); SGPT/ALT 11 U/L (12-78)
[2016-12-31 08:31] LABS: ALK PHOS 172 U/L (45-117); BILIRUBIN,TOTAL 0.3 mg/dL (0.2-1.0); CREATININE 0.5 mg/dL (0.55-1.02); SGOT/AST 11 U/L (15-37)
--- NOTE | 2016-12-31 10:35 | PN ---
Progress Note, Physician Chief Complaint: CAUTI History of Present Illness: NAD, in bed on Flagyl GT low grade temps ID aware monitor for now repeat BC if she continues with fever. H/H has dropped - Current Medication List Current Medications: Active Medications Acetaminophen (Tylenol Oral Solution -) 650 mg GT Q4H PRN PRN Reason: FEVER OR PAIN Last Admin: 12/29/16 17:47 Dose: 650 mg Doxazosin Mesylate (Cardura -) 2 mg GT DAILY [facility] Last Admin: 12/30/16 10:43 Dose: 2 mg Escitalopram Oxalate (Lexapro Oral Solution -) 10 mg GT DAILY [facility] Last Admin: 12/30/16 10:44 Dose: 10 mg Insulin Aspart (Novolog Vial Sliding Scale -) 1 vial SQ ACHS [facility] PRN Reason: Protocol Last Admin: 12/31/16 06:36 Dose: 2 units Insulin Detemir (Levemir Vial) 8 units SQ HS [facility] Last Admin: 12/30/16 22:10 Dose: 8 units Metronidazole (Flagyl -) 500 mg GT TID [facility] Last Admin: 12/31/16 05:35 Dose: 500 mg Potassium Chloride (Potassium Chloride Oral Liquid) 10 meq PO DAILY [facility] Last Admin: 12/30/16 10:43 Dose: 10 meq Ranitidine HCl (Zantac Oral Solution -) 150 mg GT DAILY [facility] Last Admin: 12/30/16 10:44 Dose: 150 mg - Objective Vital Signs: Vital Signs Temperature 98.6 F 12/31/16 05:00 Pulse Rate 90 12/31/16 05:00 Respiratory Rate 20 12/31/16 05:00 Blood Pressure 104/62 12/31/16 05:00 O2 Sat by Pulse Oximetry (%) 100 12/30/16 22:00 Constitutional: Yes: Well Nourished, No Distress, Calm Cardiovascular: Yes: Regular Rate and Rhythm Respiratory: Yes: Regular Musculoskeletal: Yes: WNL Extremities: Yes: Amputation (BLLE) Edema: No Labs: CBC, BMP 12/31/16 06:45 12/31/16 06:45 INR, PTT INR 1.03 (0.82-1.09) 12/21/16 13:38 Problem List - Problems (1) Anemia Assessment/Plan: -chronic -received 1 units PRBC overnight -h/h dropped today -1 unit PRBC -hematology consult on board -last stool ob 12/12/16 was negative, would repeat -likely anemia of chronic disease Code(s): D64.9 - ANEMIA, UNSPECIFIED Qualifiers: Anemia type: iron deficiency Iron deficiency anemia type: unspecified iron deficiency Qualified Code(s): D50.9 - Iron deficiency anemia, unspecified; D50.9 - Iron deficiency anemia, unspecified (2) Sacral decubitus ulcer, stage IV Assessment/Plan: -offloading Code(s): L89.154 - PRESSURE ULCER OF SACRAL REGION, STAGE 4 (3) Hypoglycemia Assessment/Plan: -improved, now trending high -long acting insulin held -continue Novolog sliding scale -endocrine already on board Code(s): E16.2 - HYPOGLYCEMIA, UNSPECIFIED (4) Hypokalemia Assessment/Plan: -normalized -added KCl through G tube -continue to monitor Code(s): E87.6 - HYPOKALEMIA (5) Neurogenic bladder Assessment/Plan: -chronic conley in place Code(s): N31.9 - NEUROMUSCULAR DYSFUNCTION OF BLADDER, UNSPECIFIED (6) UTI (urinary tract infection) Assessment/Plan: - on Flagyl GT -Chronic conley catheter for neurogenic bladder -ID on board Code(s): N39.0 - URINARY TRACT INFECTION, SITE NOT SPECIFIED Qualifiers: Hematuria presence: without hematuria Assessment/Plan see problem list may discharge after transfusion
[2016-12-31] MEDS ORDERED: PT OWN MED DRAWER 7, Y5N ONE (10:56)
[2016-12-31] MEDS: ESCITALOPRAM OXALATE 5 MG/5 ML GT SCH (10:58)
[2016-12-31] MEDS: POTASSIUM CHLORIDE ORAL LIQUID 20 MEQ/15 ML PO SCH (10:58)
[2016-12-31] MEDS: RANITIDINE HCL 150 MG/10 ML UNIT-DOSE GT SCH (10:58)
[2016-12-31] MEDS: DOXAZOSIN MESYLATE 2 MG TABLET (FP) GT SCH (10:58)
[2016-12-31] MEDS: ACETAMINOPHEN 650 MG/20.3 ML ORAL SOLUTION (CUPS) GT PRN (12:04)
--- NOTE | 2016-12-31 12:44 | DS ---
Physical Examination Vital Signs: Vital Signs Temperature 99.8 F H 12/31/16 09:00 Pulse Rate 92 H 12/31/16 10:38 Respiratory Rate 20 12/31/16 09:00 Blood Pressure 100/60 12/31/16 09:00 O2 Sat by Pulse Oximetry (%) 95 12/31/16 10:38 Constitutional: Yes: Well Nourished, No Distress, Calm Cardiovascular: Yes: Regular Rate and Rhythm Respiratory: Yes: Regular Gastrointestinal: Yes: Normal Bowel Sounds Extremities: Yes: Amputation Edema: No Labs: CBC, BMP 12/31/16 06:45 12/31/16 06:45 Discharge Summary Reason For Visit: ABSCESS,CELLULITIS OF GLUTEAL REGION Current Active Problems Abdominal pain (Acute) Anemia (Acute) C. difficile diarrhea (Acute) Cellulitis and abscess of buttock (Acute) Diarrhea (Acute) Hyperkalemia (Acute) Hypophosphatemia (Acute) Sacral decubitus ulcer, stage IV (Acute) Hospital Course: 81 y/o F with a PMHx of anemia, CVA, CHF, IDDM, HTN, HLD, acute kidney failure, thyroid disease, anxiety, agitation, depression [facility]. Patient is nonverbal. At [facility], temperature was noted to be 101.8. Patient has a sacral pressure ulcer with a wound vac. History is provided by [place] records. She has been on Flagyl for 4 days, would continue Flagyl 500 mg GT TID for another 6 days to complete 10 day course for Colitis. Condition: Unchanged/Unknown - Instructions Diet, Activity, Other Instructions: Flagyl 500 mg GT TID for another 6 days- to complete 10 days of treatment. Disposition: HALFWAY FACILITY - Home Medications Comprehensive Discharge Medication List: Ambulatory Orders Acetaminophen Oral Solution [Tylenol 160mg/5mL Oral Solution -] 650 mg GT Q6H PRN 12/08/16 Doxazosin Mesylate [Cardura] 2 mg GT DAILY 12/08/16 Escitalopram Oxalate [Lexapro 5mg/5mL Oral Solution -] 10 mg GT DAILY 12/08/16 FENTANYL 12mcg PATCH [DURAGESIC 12mcg PATCH -] 1 each TD Q72H 12/08/16 Ferrous Sulfate *Liquid* [Feosol *Liquid*] 330 mg GT TID 12/08/16 Heparin - 5,000 units IJ BID 12/08/16 Insulin Aspart [Novolog Flexpen] 0 unit SQ TID 12/08/16 Lactobacillus Acidophilus [Acidophilus] 1 each GT DAILY 12/08/16 Naph,Mb-Db/K pH,Mbdb [PHOS-NaK PACKET -] 1 packet GT DAILY 12/08/16 Ranitidine HCl 150 mg GT DAILY 12/08/16 Vitamin B Comp W-C [Nephro-Rafael -] 1 tablet GT DAILY 12/08/16 Ascorbate Calcium [Vitamin C] 500 mg GT Q8H 12/21/16 Vitamin B Comp W-C [Nephro-Rafael -] 1 tablet GT DAILY 12/21/16 Insulin (Levemir) [Levemir Vial] 8 units SQ HS ml 12/31/16 Insulin Sliding Scale [Novolog Vial Sliding Scale -] 1 vial SQ ACHS units 12/31 Metronidazole [Flagyl -] 500 mg GT TID tablet 12/31/16 Potassium Chloride [Potassium Chloride Oral Liquid] 10 meq PO DAILY #30 ea 12/31
--- NOTE | 2016-12-31 14:15 | PN ---
Progress Note (short form) - Note Progress Note: Renal Follow up for Hypernatremia/GAINNI Pt seen and examined at the bedside no overnight events pt is awake and alert, nurse putting new iv pt having diarrhea Vital Signs Temperature 99.8 F H 12/31/16 09:00 Pulse Rate 92 H 12/31/16 10:38 Respiratory Rate 20 12/31/16 09:00 Blood Pressure 100/60 12/31/16 09:00 O2 Sat by Pulse Oximetry (%) 95 12/31/16 10:38 Intake & Output 12/28/16 12/29/16 12/30/16 12/31/16 23:59 23:59 23:59 23:59 Intake Total 0 2000 2160 1080 Output Total 125 1500 500 800 Balance -299 789 7951 280 Weight 108 lb 108 lb 5 oz 118 lb 116 lb 12.8 oz awake and alert, not takking Dry MM, no JVD RRR, + systolic murmur Abd is soft NT/ND, G-tube in place no edema, b/l BKA CBC, BMP 12/31/16 06:45 12/31/16 06:45 Laboratory Tests 12/31/16 06:45 Calcium 8.4 L Albumin 1.4 L Current Medications Acetaminophen (Tylenol Oral Solution -) 650 mg GT Q4H PRN PRN Reason: FEVER OR PAIN Last Admin: 12/31/16 12:04 Dose: 650 mg Doxazosin Mesylate (Cardura -) 2 mg GT DAILY [facility] Last Admin: 12/31/16 10:58 Dose: 2 mg Escitalopram Oxalate (Lexapro Oral Solution -) 10 mg GT DAILY [facility] Last Admin: 12/31/16 10:58 Dose: 10 mg Insulin Aspart (Novolog Vial Sliding Scale -) 1 vial SQ ACHS [facility] PRN Reason: Protocol Last Admin: 12/31/16 12:03 Dose: 5 units Insulin Detemir (Levemir Vial) 8 units SQ HS [facility] Last Admin: 12/30/16 22:10 Dose: 8 units Metronidazole (Flagyl -) 500 mg GT TID [facility] Last Admin: 12/31/16 05:35 Dose: 500 mg Potassium Chloride (Potassium Chloride Oral Liquid) 10 meq PO DAILY [facility] Last Admin: 12/31/16 10:58 Dose: 10 meq Ranitidine HCl (Zantac Oral Solution -) 150 mg GT DAILY [facility] Last Admin: 12/31/16 10:58 Dose: 150 mg A/P 81 year old woman well known to our service with hx of dementia, PVD s/p b/l BKA , Hypertension, HLD, GERD, Sacral decubitis ulcers who [facility] with GIANNI And Hypernatermia #GIANNI with Hypernatremia (baseline Cr is 0.7) Renal function and Na levels stable continue tube feeds with free water, should recieve the same on discharge in the [place] #Fever/Sepsis/Cystitis now off Abx #Anemia Trend CBC Transfuse as needed #Hypophosphatemia improved, trend phos levels Thank you Vahid Manzano DO
[2016-12-31 14:39] LABS: ANISOCYTOSIS 1+; MACROCYTOSIS 1+
--- NOTE | 2016-12-31 17:24 | PN ---
Progress Note (short form) - Note Progress Note: Pt seen and examined Chart reviewed Non verbal. Constitutional: Yes: Thin, non verbal Eyes: Yes: Conjunctiva Clear Neck: Yes: Supple Cardiovascular: Yes: Regular Rate and Rhythm Respiratory: Yes: Regular Gastrointestinal: Yes: Normal Bowel Sounds, Soft Extremities: Yes: Amputation Labs: Last Vital Signs Temp Pulse Resp BP Pulse Ox 99.8 F H 92 H 20 100/60 95 12/31/16 09:00 12/31/16 10:38 12/31/16 09:00 12/31/16 09:00 12/31/16 10:38 CBC, BMP 12/31/16 06:45 12/31/16 06:45 Current Medications Generic Name Dose Route Start Last Admin Trade Name Freq PRN Reason Stop Dose Admin Acetaminophen 650 mg 12/22/16 13:50 12/31/16 12:04 Tylenol Oral Solution - GT 650 mg Q4H PRN Administration FEVER OR PAIN Doxazosin Mesylate 2 mg 12/22/16 10:00 12/31/16 10:58 Cardura - GT 2 mg DAILY [facility] Administration Escitalopram Oxalate 10 mg 12/22/16 10:00 12/31/16 10:58 Lexapro Oral Solution - GT 10 mg DAILY [facility] Administration Insulin Aspart 1 vial 12/24/16 09:05 12/31/16 12:03 Novolog Vial Sliding Scale - SQ 5 units ACHS [facility] Administration Protocol Insulin Detemir 8 units 12/28/16 22:00 12/30/16 22:10 Levemir Vial SQ 8 units HS [facility] Administration Metronidazole 500 mg 12/27/16 15:15 12/31/16 14:37 Flagyl - GT 500 mg TID [facility] Administration Potassium Chloride 10 meq 12/27/16 10:45 12/31/16 10:58 Potassium Chloride Oral Liquid PO 10 meq DAILY [facility] Administration Ranitidine HCl 150 mg 12/22/16 10:00 12/31/16 10:58 Zantac Oral Solution - GT 150 mg DAILY [facility] Administration 80 y/o patient with multiple comorbidities, dementia severe, non-verbal at baseline, with chronic anemia anemia--normocytic iron studies s/o anemia of chronic disease, on ferrous sulfate with elevated ferritin, low tibc. iron sat nl--12/09/16 on feosol/vit. c B12/TSH/fT4/LDH nl Jerry + but LDH nl ESR elevated, RF elevated , MYAH + in 06/2016, was seen by , thought it was non-specific in the setting acute illness. For now, for anemia, supportive care recommended. transfuse today
[2016-12-31] MEDS ORDERED: INSULIN (NOVOLOG) ASPART 100 UNITS/ML 10ML VIAL ONE (22:27)
[2016-12-31] MEDS: INSULIN DETEMIR 100 UNITS/ML MDV SQ SCH (22:49)
[2017-01-01] MEDS: ACETAMINOPHEN 650 MG/20.3 ML ORAL SOLUTION (CUPS) GT PRN (02:21)
[2017-01-01] MEDS: metroNIDAZOLE 250 MG TABLET GT SCH (05:37)
[2017-01-01] MEDS: INSULIN SLIDING SCALE (NOVOLOG) 1 VIAL SQ SCH (06:30)
[2017-01-01 09:19] VITALS: BP 113/60; TEMP 98.7
[2017-01-01] MEDS ORDERED: PT OWN MED DRAWER 7, Y5N ONE (10:21)
[2017-01-01] MEDS: POTASSIUM CHLORIDE ORAL LIQUID 20 MEQ/15 ML PO SCH (10:22)
[2017-01-01] MEDS: DOXAZOSIN MESYLATE 2 MG TABLET (FP) GT SCH (10:22)
[2017-01-01] MEDS: ESCITALOPRAM OXALATE 5 MG/5 ML GT SCH (10:23)
[2017-01-01] MEDS: RANITIDINE HCL 150 MG/10 ML UNIT-DOSE GT SCH (10:23)
--- NOTE | 2017-01-01 10:24 | PN ---
Progress Note, Physician Chief Complaint: ASLEEP NAD - Current Medication List Current Medications: Active Medications Acetaminophen (Tylenol Oral Solution -) 650 mg GT Q4H PRN PRN Reason: FEVER OR PAIN Last Admin: 01/01/17 02:21 Dose: 650 mg Doxazosin Mesylate (Cardura -) 2 mg GT DAILY [facility] Last Admin: 12/31/16 10:58 Dose: 2 mg Escitalopram Oxalate (Lexapro Oral Solution -) 10 mg GT DAILY [facility] Last Admin: 12/31/16 10:58 Dose: 10 mg Insulin Aspart (Novolog Vial Sliding Scale -) 1 vial SQ ACHS [facility] PRN Reason: Protocol Last Admin: 01/01/17 06:30 Dose: 5 units Insulin Detemir (Levemir Vial) 8 units SQ HS [facility] Last Admin: 12/31/16 22:49 Dose: 8 units Metronidazole (Flagyl -) 500 mg GT TID [facility] Last Admin: 01/01/17 05:37 Dose: 500 mg Potassium Chloride (Potassium Chloride Oral Liquid) 10 meq PO DAILY [facility] Last Admin: 12/31/16 10:58 Dose: 10 meq Ranitidine HCl (Zantac Oral Solution -) 150 mg GT DAILY [facility] Last Admin: 12/31/16 10:58 Dose: 150 mg - Objective Vital Signs: Vital Signs Temperature 98.7 F 01/01/17 09:18 Pulse Rate 92 H 01/01/17 09:18 Respiratory Rate 18 01/01/17 09:18 Blood Pressure 113/60 01/01/17 09:18 O2 Sat by Pulse Oximetry (%) 96 12/31/16 22:00 Constitutional: Yes: Mild Distress Eyes: Yes: WNL HENT: Yes: WNL Neck: Yes: WNL Cardiovascular: Yes: WNL Respiratory: Yes: WNL Gastrointestinal: Yes: WNL Genitourinary: Yes: WNL Musculoskeletal: Yes: Muscle Weakness Extremities: Yes: Amputation Edema: No Integumentary: Yes: Pressure Ulcer, Venous Stasis Changes Wound/Incision: Yes: Dressing Dry and Intact, Unapproximated Neurological: Yes: Aphasia, Confusion, Pre-Existing Deficit, Unsteady Gait, Weakness ...Motor Strength: LLE, RLE Psychiatric: Yes: Other Labs: CBC, BMP 12/31/16 06:45 12/31/16 06:45 INR, PTT INR 1.03 (0.82-1.09) 12/21/16 13:38 Problem List - Problems (1) Anemia Code(s): D64.9 - ANEMIA, UNSPECIFIED Qualifiers: Anemia type: iron deficiency Iron deficiency anemia type: unspecified iron deficiency Qualified Code(s): D50.9 - Iron deficiency anemia, unspecified; D50.9 - Iron deficiency anemia, unspecified (2) Sacral decubitus ulcer, stage IV Code(s): L89.154 - PRESSURE ULCER OF SACRAL REGION, STAGE 4 (3) Infected decubitus ulcer Code(s): L89.90 - PRESSURE ULCER OF UNSPECIFIED SITE, UNSPECIFIED STAGE (4) Leukocytosis Code(s): D72.829 - ELEVATED WHITE BLOOD CELL COUNT, UNSPECIFIED (5) Pneumonia Code(s): J18.9 - PNEUMONIA, UNSPECIFIED ORGANISM Qualifiers: Pneumonia type: due to unspecified organism Laterality: left Lung location: lower lobe of lung Qualified Code(s): J18.1 - Lobar pneumonia, unspecified organism; J18.1 - Lobar pneumonia, unspecified organism; J18.1 - Lobar pneumonia, unspecified organism (6) S/P AKA (above knee amputation) bilateral Code(s): Z89.611 - ACQUIRED ABSENCE OF RIGHT LEG ABOVE KNEE Z89.612 - ACQUIRED ABSENCE OF LEFT LEG ABOVE KNEE (7) Type 2 diabetes mellitus with other diabetic kidney complication Code(s): E11.29 - TYPE 2 DIABETES MELLITUS W OTH DIABETIC KIDNEY COMPLICATION Assessment/Plan IV ABX GTUBE CONTINUE CURRENT MANAGEMENT POOR OVERALL PROGNOSIS SHOULD BE REFERRED TO HOSPICE
--- NOTE | 2017-01-01 10:54 | PN ---
Progress Note (short form) - Note Progress Note: Renal Follow up for Hypernatremia/GIANNI Pt seen and examined at the bedside no overnight events for possible discharge today Vital Signs Temperature 98.7 F 01/01/17 09:18 Pulse Rate 92 H 01/01/17 09:18 Respiratory Rate 18 01/01/17 09:18 Blood Pressure 113/60 01/01/17 09:18 O2 Sat by Pulse Oximetry (%) 96 12/31/16 22:00 Intake & Output 12/29/16 12/30/16 12/31/16 01/01/17 23:59 23:59 23:59 23:59 Intake Total 1999 2160 2160 1580 Output Total 6674 886 4277 800 Balance 500 1660 760 780 Weight 108 lb 5 oz 118 lb 116 lb 12.8 oz 112 lb 4 oz awake and alert, not takking Dry MM, no JVD RRR, + systolic murmur Abd is soft NT/ND, G-tube in place no edema, b/l BKA CBC, BMP 12/31/16 06:45 12/31/16 06:45 Current Medications Acetaminophen (Tylenol Oral Solution -) 650 mg GT Q4H PRN PRN Reason: FEVER OR PAIN Last Admin: 01/01/17 02:21 Dose: 650 mg Doxazosin Mesylate (Cardura -) 2 mg GT DAILY [facility] Last Admin: 01/01/17 10:22 Dose: 2 mg Escitalopram Oxalate (Lexapro Oral Solution -) 10 mg GT DAILY [facility] Last Admin: 01/01/17 10:23 Dose: 10 mg Insulin Aspart (Novolog Vial Sliding Scale -) 1 vial SQ ACHS [facility] PRN Reason: Protocol Last Admin: 01/01/17 06:30 Dose: 5 units Insulin Detemir (Levemir Vial) 8 units SQ HS [facility] Last Admin: 12/31/16 22:49 Dose: 8 units Metronidazole (Flagyl -) 500 mg GT TID [facility] Last Admin: 01/01/17 05:37 Dose: 500 mg Potassium Chloride (Potassium Chloride Oral Liquid) 10 meq PO DAILY [facility] Last Admin: 01/01/17 10:22 Dose: 10 meq Ranitidine HCl (Zantac Oral Solution -) 150 mg GT DAILY [facility] Last Admin: 01/01/17 10:23 Dose: 150 mg A/P 81 year old woman well known to our service with hx of dementia, PVD s/p b/l BKA , Hypertension, HLD, GERD, Sacral decubitis ulcers who presented from [place] with Fever with GIANNI And Hypernatermia #GIANNI with Hypernatremia (baseline Cr is 0.7) Renal function and Na levels stable no new labs today #Fever/Sepsis/Cystitis now off Abx #Anemia Trend CBC Transfuse as needed #Hypophosphatemia improved, trend phos levels for possible discharge to [place] today will need repeat labs in 3-4 days continue tube feeds as ordered in the hospital Thank you Vahid Manzano DO
[2017-01-01 11:39] VITALS: PULSE 97
== END 2017-01-01 11:55 | DRG 698 ==
LOC: JER 14:26 → JERBED 14:59 → J6S 12-23 03:58
PROVIDERS: ADMIT Family Medicine; ATTEND Family Medicine
PROC: 30233N1 Transfusion of Nonautologous Red Blood Cells into Peripheral Vein, Percutaneous Approach (ICD-10-PCS; principal; 2016-12-21)
PROC: 3E0G76Z Introduction of Nutritional Substance into Upper GI, Via Natural or Artificial Opening (ICD-10-PCS; 2016-12-23)
DX: T83.518A Infection and inflammatory reaction due to other urinary catheter, initial encounter (principal); A41.89 Other specified sepsis; L89.154 Pressure ulcer of sacral region, stage 4; N17.9 Acute kidney failure, unspecified; L03.317 Cellulitis of buttock; E87.0 Hyperosmolality and hypernatremia; N39.0 Urinary tract infection, site not specified; L98.498 Non-pressure chronic ulcer of skin of other sites with other specified severity; A04.71 Enterocolitis due to Clostridium difficile, recurrent; J98.11 Atelectasis; E78.5 Hyperlipidemia, unspecified; F41.8 Other specified anxiety disorders; J44.9 Chronic obstructive pulmonary disease, unspecified; K21.9 Gastro-esophageal reflux disease without esophagitis; I35.0 Nonrheumatic aortic (valve) stenosis; D50.9 Iron deficiency anemia, unspecified; I73.89 Other specified peripheral vascular diseases; I11.0 Hypertensive heart disease with heart failure; E11.29 Type 2 diabetes mellitus with other diabetic kidney complication; N31.9 Neuromuscular dysfunction of bladder, unspecified; E11.622 Type 2 diabetes mellitus with other skin ulcer; E87.5 Hyperkalemia; E11.40 Type 2 diabetes mellitus with diabetic neuropathy, unspecified; E16.2 Hypoglycemia, unspecified; E83.39 Other disorders of phosphorus metabolism; R54 Age-related physical debility; E87.6 Hypokalemia; R10.9 Unspecified abdominal pain; R50.9 Fever, unspecified; D63.8 Anemia in other chronic diseases classified elsewhere; D72.829 Elevated white blood cell count, unspecified; Z66 Do not resuscitate; Z93.1 Gastrostomy status; Z79.4 Long term (current) use of insulin; Z86.73 Personal history of transient ischemic attack (TIA), and cerebral infarction without residual deficits; Z89.512 Acquired absence of left leg below knee; Z89.511 Acquired absence of right leg below knee
CPT/HCPCS: 36415; 36430; 71010-TC; 74000-TC; 74176-TC; 80048; 80053; 81003; 81015; 82272; 82570; 82728; 82803; 82947; 83010; 83540; 83550; 83605; 83615; 83735; 84100; 84156; 84300; 84484; 85025; 85027; 85610; 85730; 86850; 86870; 86880; 86900; 86901; 86902; 86922; 87040; 87086; 87186; 87491; 87591; 93005; 93010; 99285-25; J1644; P9038; P9058; Q9967

== ENCOUNTER 2017-01-26 13:32 | Inpatient (IN) | payer OTHER ==
[2017-01-26] MEDS ORDERED: SODIUM CHLORIDE 0.9% 1000 ML INFUS.BAG IV ONE ×2 (15:00→20:04)
[2017-01-26] MEDS ORDERED: ACETAMINOPHEN 1000 MG/100 ML VIAL (NON FORMULARY) IVPB ONE (15:04)
[2017-01-26] MEDS ORDERED: ACETAMINOPHEN INJECTION 100 ML IVPB ONE (15:05)
[2017-01-26] MEDS ORDERED: PIPERACILLIN/TAZOB 4.5 GM/100 ML PRE-DOCKED IVPB ONE (15:12)
--- NOTE | 2017-01-26 15:20 | PDOC ---
History of Present Illness - General Stated Complaint: FEVER Time Seen by Provider: 01/26/17 14:49 History Source: Shelter Records Exam Limitations: Dementia - History of Present Illness Initial Comments: 01/26/17 15:15 The patient is an 81F with a PMH of CVA, dementia, HTN, IDDM, HLD, ARF, thyroid dz, and anemia who presents to the ED via EMS from [facility] for a fever. The patient is nonverbal 2/2 to her dementia. ROS unable to be completed. Per jail forms, she has a MRSA positive decubitus ulcer. Past History - Past Medical History Allergies/Adverse Reactions: Allergies Allergy/AdvReac Type Severity Reaction Status Date / Time No Known Drug Allergies Allergy Verified 01/26/17 17:31 Home Medications: Ambulatory Orders Acetaminophen Oral Solution [Tylenol 160mg/5mL Oral Solution -] 650 mg GT Q6H PRN 12/08/16 Doxazosin Mesylate [Cardura] 2 mg GT DAILY 12/08/16 Escitalopram Oxalate [Lexapro 5mg/5mL Oral Solution -] 10 mg GT DAILY 12/08/16 FENTANYL 12mcg PATCH [DURAGESIC 12mcg PATCH -] 1 each TD Q72H 12/08/16 Ferrous Sulfate *Liquid* [Feosol *Liquid*] 330 mg GT TID 12/08/16 Heparin - 5,000 units IJ BID 12/08/16 Insulin Aspart [Novolog Flexpen] 0 unit SQ TID 12/08/16 Lactobacillus Acidophilus [Acidophilus] 1 each GT DAILY 12/08/16 Naph,Mb-Db/K pH,Mbdb [PHOS-NaK PACKET -] 1 packet GT DAILY 12/08/16 Ranitidine HCl 150 mg GT DAILY 12/08/16 Vitamin B Comp W-C [Nephro-Rafael -] 1 tablet GT DAILY 12/08/16 Ascorbate Calcium [Vitamin C] 500 mg GT Q8H 12/21/16 Vitamin B Comp W-C [Nephro-Rafael -] 1 tablet GT DAILY 12/21/16 Insulin (Levemir) [Levemir Vial] 8 units SQ HS ml 12/31/16 Insulin Sliding Scale [Novolog Vial Sliding Scale -] 1 vial SQ ACHS units 12/31 Metronidazole [Flagyl -] 500 mg GT TID tablet 12/31/16 Potassium Chloride [Potassium Chloride Oral Liquid] 10 meq PO DAILY #30 ea 12/31 Anemia: Yes CVA: Yes COPD: No CHF: Yes Dementia: Yes Diabetes: Yes (IDDM) GI Disorders: Yes HTN: Yes Hypercholesterolemia: Yes Kidney Stones: No (acute kidney failure) Psychiatric Problems: Yes (anxeity,agitation,depression) Thyroid Disease: Yes - Surgical History Abdominal Surgery: Yes (G-Tube PLACEMENT.) - Reproductive History Ectopic : No Polycystic Ovaries: No - Suicide/Smoking/Psychosocial Hx Smoking Status: No Smoking History: Never smoked Have you smoked in the past 12 months: No Number of Cigarettes Smoked Daily: 0 Information on smoking cessation initiated: No Hx Alcohol Use: No Drug/Substance Use Hx: No Substance Use Type: None Hx Substance Use Treatment: No Review of Systems - Review of Systems Able to Perform ROS?: No (nonverbal 2/2 dementia) *Physical Exam - Vital Signs Last Vital Signs Temp Pulse Resp BP Pulse Ox 101.1 F H 108 H 18 113/62 94 L 01/26/17 14:11 01/26/17 14:11 01/26/17 14:11 01/26/17 14:11 01/26/17 14:11 - Physical Exam Comments: 01/26/17 15:46 Bedbound. General Appearance: Yes: Nourished, Other (responsive to verbal stimulation) HEENT: positive: Other (crusts over lips, unable to assess oropharnyx) Respiratory/Chest: negative: Chest Tender, Lungs Clear (coarse breath sounds in anterior lung woods) Cardiovascular: positive: Regular Rhythm, Tachycardia, Systolic Murmur Gastrointestinal/Abdominal: positive: Flat, Soft, Other (peg tube present). negative: Tender Extremity: positive: Other (b/l BKA; decubitus ulcer over) Integumentary: positive: Dry, Warm Neurologic: negative: Alert, Normal Mood/Affect, Motor Strength 5/5 ED Treatment Course - LABORATORY CBC & Chemistry Diagram: 01/26/17 16:32 01/26/17 18:00 - RADIOLOGY Radiology Studies Ordered: Category Date Time Status CHEST X-RAY PORTABLE* [RAD] Stat Radiology 01/26/17 15:00 Ordered Medical Decision Making - Medical Decision Making 01/26/17 15:48 The patient is an 81F with a PMH of dementia, IDDM, HTN, ARF who presents to the ED from [facility] with a fever of 101.1. Her vitals are significant for fever, tachycardia to 110's. Urine was cloudy on conley. Septic protocol is being followed with broad spectrum abx for suspected infection. 01/26/17 17:35 Lactate of 2.7. Will page PCP for admission. 01/26/17 17:42 I have spoken with Dr. Garcia who accepts admission for med-surg. He requests wound culture of her decubitus ulcer and to check out her peg tube for possible clogging. 01/26/17 20:03 Blood glucose 508. *DC/Admit/Observation/Transfer Diagnosis at time of Disposition: Septic shock Decubitus ulcer Qualifiers: Pressure ulcer location: sacral region Pressure ulcer stage: unspecified pressure ulcer stage Qualified Code(s): L89.159 - Pressure ulcer of sacral region, unspecified stage UTI (urinary tract infection) Qualifiers: Urinary tract infection type: site unspecified Hematuria presence: without hematuria Qualified Code(s): N39.0 - Urinary tract infection, site not specified - Discharge Dispostion Condition at time of disposition: Stable Admit: Yes
[2017-01-26] MEDS ORDERED: PIPERACILLIN/TAZOB 4.5 GM 100 ML IVPB ONE (16:13)
[2017-01-26 16:42] LABS: URINE APPEARANCE TURBID; URINE BILIRUBIN NEGATIVE (NEGATIVE); URINE BLOOD NEGATIVE (NEGATIVE); URINE COLOR AMBER; URINE GLUCOSE (UA) 1+ (NEGATIVE); URINE KETONE NEGATIVE (NEGATIVE); URINE NITRITE NEGATIVE (NEGATIVE); URINE UROBILINOGEN NEGATIVE mg/dL (0.2-1.0)
[2017-01-26 16:47] LABS: BASOPHIL 0.4 % (0-2.0); EOSINOPHIL 0.1 % (0-4.5); MCH 32.1 pg (25.7-33.7); MCHC 33.6 g/dl (32.0-36.0); MEAN CELL VOLUME 95.6 fl (80-96); MEAN PLT VOLUME 8.1 fl (7.5-11.1); NEUTROPHILS 69.3 % (42.8-82.8); PLATELET COUNT 534 K/MM3 (134-434); RDW 20.9 % (11.6-15.6); WHITE BLOOD COUNT 14.5 K/mm3 (4.0-10.0)
[2017-01-26 16:47] LABS: URINE PROTEIN 3+ (NEGATIVE)
[2017-01-26 17:05] LABS: INR 0.94 (0.82-1.09); PROTHROMBIN TIME (PATIENT) 10.6 SEC (9.98-11.88)
[2017-01-26 17:07] LABS: ACTIVATED PTT 26.6 SECONDS (26.9-34.4)
--- NOTE | 2017-01-26 17:07 | PDOC ---
Attending Attestation - Resident Resident Name: Jerman Coker - ED Attending Attestation I have performed the following: I have examined & evaluated the patient, The case was reviewed & discussed with the resident, I agree w/resident's findings & plan, Exceptions are as noted - HPI HPI: 01/26/17 17:01 81 F with h/o CVA, dementia, HTN, IDDM, HLD, ARF, thyroid dz, and anemia, presenting to ER with fever at half-way. Pt is non-verbal, unable to contribute any history. Chart review shows that pt was admitted last month with fever, found to have UTI. Urine cultures taken that admission grew klebsiella. - Physicial Exam PE: 01/26/17 17:03 "GENERAL: Awake, non-verbal, no acute distress HEAD: No signs of trauma EYES: PERRLA, EOMI, sclera anicteric, conjunctiva clear ENT: Auricles normal inspection, nares patent, oropharynx clear without exudates. Moist mucosa NECK: Nontender, no stepoffs, Normal ROM, supple, no lymphadenopathy, JVD, or masses LUNGS: Breath sounds equal, clear to auscultation bilaterally. No wheezes, and no crackles HEART: Regular rate and rhythm, normal S1 and S2, no murmurs, rubs or gallops ABDOMEN: Soft, nontender, normoactive bowel sounds. No guarding, no rebound. No masses EXTREMITIES: Normal range of motion, no edema. No clubbing or cyanosis. No cords, erythema, or tenderness - Medical Decision Making 01/26/17 17:04 81 F with fever at half-way. Likely urinary source given h/o UTI. Pt also mildly hypoxic, concerning for possible PNA. - Labs, cultures - CXR, UA - IVF, abx - Admit
[2017-01-26] MEDS ORDERED: VANCOMYCIN 1 GRAM (PRE-DOCKED) 250 ML IVPB ONE ×2 (17:19→22:34)
[2017-01-26 17:30] LABS: URINE BACTERIA RARE /hpf (NONE SEEN); URINE MUCUS FEW; URINE RBC 26 /hpf (0-3); URINE WBC 85 /hpf (3-5)
[2017-01-26 17:45] LABS: VENOUS PH 7.38 (7.32-7.42)
[2017-01-26 17:46] LABS: VENOUS BLOOD GAS HCO3 33.9 meq/L (19-25)
[2017-01-26] MEDS: VANCOMYCIN 1,000 MG in DEXTROSE 5%-WATER - 250 ML IVPB SCH ×2 (18:24→22:44)
[2017-01-26 18:26] LABS: ANISOCYTOSIS 2+; MICROCYTOSIS 2+; PLATELET ESTIMATE INCREASED (NORMAL)
[2017-01-26 18:42] LABS: URINE LEUK ESTERASE 2+ (NEGATIVE)
[2017-01-26 19:35] LABS: ALBUMIN 2.2 g/dl (3.4-5.0); ANION GAP 8 (8-16); CO2 30 mmol/L (21-32); CREATININE 1.3 mg/dL (0.55-1.02); SGOT/AST 12 U/L (15-37); SGPT/ALT 14 U/L (12-78)
[2017-01-26 19:40] LABS: ALK PHOS 113 U/L (45-117); BILIRUBIN,TOTAL 1.1 mg/dL (0.2-1.0); TOT PROT 8.1 g/dl (6.4-8.2)
[2017-01-26] MEDS ORDERED: ACETAMINOPHEN 650 MG GT PRN (19:55)
[2017-01-26 20:04] LABS: GLUCOSE,RANDOM 508 mg/dL (74-106)
[2017-01-26] MEDS ORDERED: FENTANYL PATCH WASTE TD PRN (20:05)
[2017-01-26] MEDS: fentaNYL 12mcg/hr PATCH.TD72 TD SCH (21:22)
[2017-01-26] MEDS ORDERED: VANCOMYCIN 1,000 MG in DEXTROSE 5%-WATER - 250 ML IVPB SCH (22:00)
[2017-01-26] MEDS ORDERED: HEPARIN NA (PORCINE) 5,000 UNITS/ML 1ML VIAL ONE (22:34)
[2017-01-26] MEDS ORDERED: INSULIN DETEMIR 100 UNITS/ML MDV SQ ONE (22:34)
[2017-01-26] MEDS: INSULIN DETEMIR 100 UNITS/ML MDV SQ SCH (22:44)
[2017-01-26] MEDS: HEPARIN NA (PORCINE) 5,000 UNITS/ML 1ML VIAL SQ SCH (22:44)
[2017-01-27] MEDS ORDERED: PIPERACIL/TAZOB 3.375 GM 3.375 GM/50 ML PREMIX IVPB ONE (02:00)
[2017-01-27] MEDS: INSULIN SLIDING SCALE (NOVOLOG) 1 VIAL SQ SCH ×5 (02:49→22:19)
[2017-01-27] MEDS: ASCORBIC ACID 500 MG/5 ML UNIT DOSE CUP GT SCH ×4 (02:50→22:26)
[2017-01-27] MEDS: ACETAMINOPHEN 650 MG/20.3 ML ORAL SOLUTION (CUPS) PO PRN ×2 (02:52→16:59)
[2017-01-27] MEDS ORDERED: PIPERACILLIN/TAZOB 3.375 GM/50 ML PRE-DOCKED IVPB ONE (03:00)
[2017-01-27] MEDS: SODIUM CHLORIDE 1,000 ML IV SCH ×2 (03:45→18:44)
[2017-01-27] MEDS ORDERED: INSULIN (NOVOLOG) ASPART 100 UNITS/ML 10ML VIAL SQ ONE (03:45)
[2017-01-27 04:13] VITALS: BMI 29.9
[2017-01-27] MEDS ORDERED: INSULIN (NOVOLOG MIX 70/30) 100 UNITS/ML MDV SQ ONE (07:15)
[2017-01-27 08:13] LABS: BASOPHIL 0.3 % (0-2.0); EOSINOPHIL 0.2 % (0-4.5); MCH 31.4 pg (25.7-33.7); MCHC 32.7 g/dl (32.0-36.0); MEAN CELL VOLUME 96.2 fl (80-96); MEAN PLT VOLUME 7.6 fl (7.5-11.1); NEUTROPHILS 61.2 % (42.8-82.8); PLATELET COUNT 414 K/MM3 (134-434); WHITE BLOOD COUNT 14.4 K/mm3 (4.0-10.0)
--- NOTE | 2017-01-27 08:41 | PN ---
Progress Note (short form) - Note Progress Note: Called for clogged PEG Nurse states the PEG was cleared on nights and is now patent. Flushed tube with no difficulty Please re-call should my services be required. Thank you
[2017-01-27 08:49] LABS: ALBUMIN 2.1 g/dl (3.4-5.0); ANION GAP 10 (8-16); CALCIUM 8.7 mg/dL (8.5-10.1); CO2 30 mmol/L (21-32); MAGNESIUM 2.7 mg/dL (1.8-2.4)
[2017-01-27 08:53] LABS: ALK PHOS 99 U/L (45-117); BILIRUBIN,TOTAL 0.5 mg/dL (0.2-1.0); CREATININE 1.4 mg/dL (0.55-1.02); SGOT/AST 12 U/L (15-37); SGPT/ALT 14 U/L (12-78); TOT PROT 8.3 g/dl (6.4-8.2)
[2017-01-27 08:55] LABS: GLUCOSE,RANDOM 300 mg/dL (74-106)
--- NOTE | 2017-01-27 10:11 | CON.PULM ---
Consult Consult Specialty:: PULMONARY Referred by:: Dr. Hodge Reason for Consultation:: r/o pneumonia - History of Present Illness Chief Complaint: fever History of Present Illness: 81yo female with h/o HTN, DM, hyperlipidemia, h/o CVA, recurrent UTI, sacral decubitus ulcer, bilateral BKA, advanced dementia who was sent from the long term for fever. She is nonverbal, unable to provide further history at this time. She has grown very resistant ESBL Klebsiella in the recent past and also MRSA in her ulcer. Febrile to 102.3 this admission, CXR without any acute findings. She has a chronically elevated right hemidiaphragm. - Past Medical History [employer]: Yes: CVA, Dementia Cardio/Vascular: Yes: Aortic Stenosis, CHF, HTN, Hyperlipdemia Pulmonary: Yes: COPD Gastrointestinal: Yes: GERD Renal/: Yes: Renal Inusuff Endocrine: Yes: Diabetes Mellitus Dermatology: Yes: Other (PU) - Alcohol/Substance Use Hx Alcohol Use: No - Smoking History Smoking history: Never smoked Have you smoked in the past 12 months: No Aproximately how many cigarettes per day: 0 - Social History Usual Living Arrangement: Residential History of Recent Travel: No Home Medications - Allergies Allergies/Adverse Reactions: Allergies Allergy/AdvReac Type Severity Reaction Status Date / Time No Known Drug Allergies Allergy Verified 01/26/17 17:31 - Home Medications Home Medications: Ambulatory Orders Acetaminophen Oral Solution [Tylenol 160mg/5mL Oral Solution -] 650 mg GT Q6H PRN 12/08/16 Doxazosin Mesylate [Cardura] 2 mg GT DAILY 12/08/16 Escitalopram Oxalate [Lexapro 5mg/5mL Oral Solution -] 10 mg GT DAILY 12/08/16 FENTANYL 12mcg PATCH [DURAGESIC 12mcg PATCH -] 1 each TD Q72H 12/08/16 Ferrous Sulfate *Liquid* [Feosol *Liquid*] 330 mg GT TID 12/08/16 Heparin - 5,000 units IJ BID 12/08/16 Insulin Aspart [Novolog Flexpen] 0 unit SQ TID 12/08/16 Lactobacillus Acidophilus [Acidophilus] 1 each GT DAILY 12/08/16 Naph,Mb-Db/K pH,Mbdb [PHOS-NaK PACKET -] 1 packet GT DAILY 12/08/16 Ranitidine HCl 150 mg GT DAILY 12/08/16 Vitamin B Comp W-C [Nephro-Rafael -] 1 tablet GT DAILY 12/08/16 Ascorbate Calcium [Vitamin C] 500 mg GT Q8H 12/21/16 Vitamin B Comp W-C [Nephro-Rafael -] 1 tablet GT DAILY 12/21/16 Insulin (Levemir) [Levemir Vial] 8 units SQ HS ml 12/31/16 Insulin Sliding Scale [Novolog Vial Sliding Scale -] 1 vial SQ ACHS units 12/31 Metronidazole [Flagyl -] 500 mg GT TID tablet 12/31/16 Potassium Chloride [Potassium Chloride Oral Liquid] 10 meq PO DAILY #30 ea 12/31 Family Disease History - Family Disease History Family History: Unable to Obtain Review of Systems Unable to obtain ROS, reason: pt nonverbal Physical Exam Vital Sings: Vital Signs Temperature 100.7 F H 01/27/17 06:00 Pulse Rate 96 H 01/27/17 06:00 Respiratory Rate 20 01/27/17 06:00 Blood Pressure 111/54 01/27/17 06:00 O2 Sat by Pulse Oximetry (%) 96 01/27/17 00:00 Constitutional: Yes: Calm Eyes: Yes: Conjunctiva Clear, EOM Intact HENT: Yes: Atraumatic, Normocephalic Neck: Yes: Supple, Trachea Midline Cardiovascular: Yes: Tachycardia Respiratory: Yes: Diminished (decreased breath sounds at the bases) ...Clubbing: No Gastrointestinal: Yes: Normal Bowel Sounds, Soft, Other (+PEG). No: Tenderness Extremities: Yes: Amputation (bilateral BKA) Edema: No Labs: CBC, BMP 01/27/17 06:30 01/27/17 06:30 Imaging - Results Chest X-ray: Report Reviewed, Image Reviewed (elevated right hemidiaphragm, no acute infiltrates) Problem List - Problems (1) UTI (urinary tract infection) Code(s): N39.0 - URINARY TRACT INFECTION, SITE NOT SPECIFIED Qualifiers: Urinary tract infection type: site unspecified Hematuria presence: without hematuria Qualified Code(s): N39.0 - Urinary tract infection, site not specified; N39.0 - Urinary tract infection, site not specified; R31.9 - Hematuria, unspecified; R31.9 - Hematuria, unspecified (2) Severe sepsis Code(s): A41.9 - SEPSIS, UNSPECIFIED ORGANISM R65.20 - SEVERE SEPSIS WITHOUT SEPTIC SHOCK (3) Decubitus ulcer Code(s): L89.90 - PRESSURE ULCER OF UNSPECIFIED SITE, UNSPECIFIED STAGE Qualifiers: Pressure ulcer location: sacral region Pressure ulcer stage: unspecified pressure ulcer stage Qualified Code(s): L89.159 - Pressure ulcer of sacral region, unspecified stage; L89.159 - Pressure ulcer of sacral region, unspecified stage (4) ARF (acute renal failure) Code(s): N17.9 - ACUTE KIDNEY FAILURE, UNSPECIFIED (5) Lactic acidosis Code(s): E87.2 - ACIDOSIS (6) Diabetes Code(s): E11.9 - TYPE 2 DIABETES MELLITUS WITHOUT COMPLICATIONS Qualifiers: Diabetes mellitus type: type 2 Diabetes mellitus complication detail: with other skin ulcer (7) HTN (hypertension) Code(s): I10 - ESSENTIAL (PRIMARY) HYPERTENSION Qualifiers: Hypertension type: essential hypertension Qualified Code(s): I10 - Essential (primary) hypertension; I10 - Essential (primary) hypertension; I10 - Essential (primary) hypertension Assessment/Plan UTI Severe Sepsis Lactic Acidosis Acute Kidney Injury B/L BKA HTN DM Advanced Dementia - ID eval for antibiotic coverage - f/u cultures - do not suspect pneumonia at this time - IVF - monitor urine output, creatinine - lactate resolved - O2 to keep Spo2 >90% - DVT prophylaxis - recommend palliative care given multiresistant organisms with poor functional status/quality of life Thank you for this consult Sonu Monteiro MD
--- NOTE | 2017-01-27 11:09 | HP ---
Admitting History and Physical - Primary Care Physician PCP: Rashawn Garcia - Admission History of Present Illness: The patient is an 81F with a PMH of CVA, dementia, HTN, IDDM, HLD, ARF, thyroid dz, and anemia who presents to the ED via EMS from [facility] for a fever. The patient is nonverbal 2/2 to her dementia. ROS unable to be completed. Per alf forms, she has a MRSA positive decubitus ulcer. patient has had multiple admission in past for fever- last admission was pna and colitis- in Er found to have temp 102, wbc in 14, lactic acid 2.7 and elevated bgm got zosyn and vancomycin - Past Medical History [employer]: Yes: CVA, Dementia Cardiovascular: Yes: Aortic Stenosis, CHF, HTN, Hyperlipdemia Pulmonary: Yes: COPD Gastrointestinal: Yes: GERD Renal/: Yes: Renal Inusuff Heme/Onc: Yes: Anemia Endocrine: Yes: Diabetes Mellitus Dermatology: Yes: Other (PU) - Smoking History Smoking history: Never smoked Have you smoked in the past 12 months: No Aproximately how many cigarettes per day: 0 - Alcohol/Substance Use Hx Alcohol Use: No - Social History History of Recent Travel: No Home Medications - Allergies Allergies/Adverse Reactions: Allergies Allergy/AdvReac Type Severity Reaction Status Date / Time No Known Drug Allergies Allergy Verified 01/26/17 17:31 - Home Medications Home Medications: Ambulatory Orders Acetaminophen Oral Solution [Tylenol 160mg/5mL Oral Solution -] 650 mg GT Q6H PRN 12/08/16 Doxazosin Mesylate [Cardura] 2 mg GT DAILY 12/08/16 Escitalopram Oxalate [Lexapro 5mg/5mL Oral Solution -] 10 mg GT DAILY 12/08/16 FENTANYL 12mcg PATCH [DURAGESIC 12mcg PATCH -] 1 each TD Q72H 12/08/16 Ferrous Sulfate *Liquid* [Feosol *Liquid*] 330 mg GT TID 12/08/16 Heparin - 5,000 units IJ BID 12/08/16 Insulin Aspart [Novolog Flexpen] 0 unit SQ TID 12/08/16 Lactobacillus Acidophilus [Acidophilus] 1 each GT DAILY 12/08/16 Naph,Mb-Db/K pH,Mbdb [PHOS-NaK PACKET -] 1 packet GT DAILY 12/08/16 Ranitidine HCl 150 mg GT DAILY 12/08/16 Vitamin B Comp W-C [Nephro-Rafael -] 1 tablet GT DAILY 12/08/16 Ascorbate Calcium [Vitamin C] 500 mg GT Q8H 12/21/16 Vitamin B Comp W-C [Nephro-Rafael -] 1 tablet GT DAILY 12/21/16 Insulin (Levemir) [Levemir Vial] 8 units SQ HS ml 12/31/16 Insulin Sliding Scale [Novolog Vial Sliding Scale -] 1 vial SQ ACHS units 12/31 Metronidazole [Flagyl -] 500 mg GT TID tablet 12/31/16 Potassium Chloride [Potassium Chloride Oral Liquid] 10 meq PO DAILY #30 ea 12/31 Review of Systems Unable to obtain ROS, reason: non verbal Physical Examination Vital Signs: Vital Signs Temperature 100.7 F H 01/27/17 06:00 Pulse Rate 96 H 01/27/17 06:00 Respiratory Rate 20 01/27/17 06:00 Blood Pressure 111/54 01/27/17 06:00 O2 Sat by Pulse Oximetry (%) 96 01/27/17 00:00 Constitutional: Yes: Thin, Other (lethargic) Cardiovascular: Yes: Regular Rate and Rhythm, Murmur, S1, S2 Respiratory: Yes: Diminished Gastrointestinal: Yes: Normal Bowel Sounds, Soft, Other (peg) Renal/: Yes: Gonzales Present Extremities: Yes: Other (BKA) Edema: No Wound/Incision: Yes: Other Labs: CBC, BMP 01/27/17 06:30 01/27/17 06:30 Problem List - Problems (1) Fever Assessment/Plan: broad abx ID eval contact isolation for MDR in urine cultures pending dvt ppx sacral ulcer Code(s): R50.9 - FEVER, UNSPECIFIED (2) ARF (acute renal failure) Assessment/Plan: ivf monitor renal function Code(s): N17.9 - ACUTE KIDNEY FAILURE, UNSPECIFIED (3) Diabetes Assessment/Plan: bgm insulin sliding scale hga1c Code(s): E11.9 - TYPE 2 DIABETES MELLITUS WITHOUT COMPLICATIONS Qualifiers: Diabetes mellitus type: type 2 Diabetes mellitus complication detail: with other skin ulcer
[2017-01-27] MEDS: FERROUS SO4 300 MG/5 ML ORAL SOLN UNIT DOSE CUPS GT SCH (11:25)
[2017-01-27] MEDS: HEPARIN NA (PORCINE) 5,000 UNITS/ML 1ML VIAL SQ SCH ×2 (11:25→22:20)
[2017-01-27] MEDS: RANITIDINE HCL 150 MG/10 ML UNIT-DOSE GT SCH (11:25)
[2017-01-27] MEDS: DOXAZOSIN MESYLATE 2 MG TABLET (FP) GT SCH (11:37)
--- NOTE | 2017-01-27 12:19 | EKG ---
Test Reason : Blood Pressure : / mmHG Vent. Rate : 094 BPM Atrial Rate : 094 BPM P-R Int : 112 ms QRS Dur : 088 ms QT Int : 354 ms P-R-T Axes : -03 -17 122 degrees QTc Int : 442 ms NORMAL SINUS RHYTHM ABNORMAL ECG WHEN COMPARED WITH ECG OF 26-JAN-2017 21:14, QT HAS SHORTENED Confirmed by NICOLA MAS MD ([id number]) on 01/27/2017 12:19:27 PM Referred By: Confirmed By:NICOLA MAS MD
--- NOTE | 2017-01-27 14:12 | PN ---
Progress Note (short form) - Note Progress Note: ID Consult dictated Sepsis v decubitus source Hx resistant pathogens, including CRE OBS Await c/s Empiric Tygacil/ gentamicin
[2017-01-27] MEDS ORDERED: TIGECYCLINE 100 MG in DEXTROSE 5%-WATER - 100 ML IVPB ONE (14:13)
[2017-01-27] MEDS ORDERED: GENTAMICIN INJECTION 200 MG in SODIUM CHLORIDE 100 ML IVPB ONE (14:14)
--- NOTE | 2017-01-27 16:19 | CONS ---
INFECTIOUS DISEASE CONSULTATION DATE OF CONSULTATION: DATE OF DICTATION: 01/27/2017 HISTORY OF PRESENT ILLNESS: The patient is an 81-year-old female with a history of multiple recent hospital admissions for sepsis, now readmitted with fever. The patient was admitted from the intermediate with a fever of 101. She was noted to have tachycardia and an elevated blood sugar. In the emergency room, her temperature was 102.3. She was empirically treated with vancomycin and Zosyn. 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 She has had ESBL, CRE, as well as VRE and MRSA. She suffers from dementia and cannot give a history. No reports of labored breathing, cough, sputum production, vomiting. She does have grossly purulent urine and a stage 4 sacral decubitus ulcer. PAST MEDICAL HISTORY: Positive for dementia, history of stroke, hypertension, insulin-dependent diabetes mellitus, hyperlipidemia, thyroid disease, history of multiply resistant pathogens. PAST SURGICAL HISTORY: Status post bilateral [id number] amputations. ALLERGIES: No known allergies. MEDICATIONS: Include Duragesic, Cardura, heparin, Lexapro, Zantac, NovoLog, Levemir, Feosol, tigecycline. SOCIAL HISTORY: She is a intermediate resident, suffers from dementia. No active tobacco or alcohol use. SYSTEMS REVIEW: Neurologic: Positive for dementia and stroke. Cardiac: Negative chest pain and palpitations. Respiratory: Negative cough or sputum production. Gastrointestinal: Negative for vomiting or diarrhea. Genitourinary: As per HPI. LABORATORY DATA: White count 14.4, hematocrit 30.9, platelet count 414. BUN 69, creatinine 1.4. Lactic acid 2.7. Urinalysis: White cells 85. Blood and urine cultures pending. Chest x-ray negative for acute infiltrate. PHYSICAL EXAMINATION: General: She is not verbally responsive. Vital Signs: Temperature 100.7, T-max 102.3. Blood pressure 111/59; pulse 92, regular; respirations 20 per minute. HEENT: Sclerae are anicteric. Dry mucous membranes. Heart: Sounds S1, S2 with a 3/6 pansystolic murmur. Lungs: Diminished breath sounds bilaterally. Abdomen: Soft. No tenderness elicited. No mass, rebound, or rigidity. Extremities: Status post bilateral BKA. Surgical sites are well healed without evidence of infection. IMPRESSION: 1. Sepsis. 2. 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 3. Dementia. Sepsis secondary to urinary tract versus decubitus source: Await cultures. Empiric antibiotic coverage with Tygacil and gentamicin. Antibiotic selection based on previous isolates and susceptibilities. Local wound care. Contact precautions. We will follow. Thank you for the kind referral. ARVIND HENLEY M.D. [id number]
[2017-01-27] MEDS: PIPERACIL/TAZOB 3.375 GM 3.375 GM/50 ML PREMIX IVPB SCH ×2 (16:32→16:33)
[2017-01-27] MEDS: VANCOMYCIN 1,000 MG in DEXTROSE 5%-WATER - 250 ML IVPB SCH (16:33)
--- NOTE | 2017-01-27 17:05 | EKG ---
Test Reason : Blood Pressure : / mmHG Vent. Rate : 104 BPM Atrial Rate : 104 BPM P-R Int : 122 ms QRS Dur : 088 ms QT Int : 382 ms P-R-T Axes : 037 -27 085 degrees QTc Int : 502 ms SINUS TACHYCARDIA WITH PREMATURE ATRIAL COMPLEXES POSSIBLE LEFT ATRIAL ENLARGEMENT NONSPECIFIC ST ABNORMALITY ABNORMAL ECG WHEN COMPARED WITH ECG OF 21-DEC-2016 14:42, PREMATURE ATRIAL COMPLEXES ARE NOW PRESENT Confirmed by TG VERMA, NICOLA ([id number]) on 01/27/2017 5:04:58 PM Referred By: Confirmed By:NICOLA MAS MD
[2017-01-27] MEDS: ESCITALOPRAM OXALATE 5 MG/5 ML GT SCH (17:37)
[2017-01-27] MEDS: INSULIN (NOVOLOG MIX 70/30) 100 UNITS/ML MDV SQ SCH (17:38)
[2017-01-27] MEDS: INSULIN DETEMIR 100 UNITS/ML MDV SQ SCH (22:20)
[2017-01-27] MEDS: TIGECYCLINE 50 MG in DEXTROSE 5%-WATER - 100 ML IVPB SCH (22:20)
[2017-01-28] MEDS: ASCORBIC ACID 500 MG/5 ML UNIT DOSE CUP GT SCH ×3 (06:31→23:09)
[2017-01-28] MEDS: INSULIN (NOVOLOG MIX 70/30) 100 UNITS/ML MDV SQ SCH ×2 (06:31→17:00)
[2017-01-28] MEDS: SODIUM CHLORIDE 1,000 ML IV SCH (06:31)
[2017-01-28] MEDS: INSULIN SLIDING SCALE (NOVOLOG) 1 VIAL SQ SCH ×4 (06:31→22:55)
[2017-01-28] MEDS: ACETAMINOPHEN 650 MG/20.3 ML ORAL SOLUTION (CUPS) PO PRN ×3 (08:29→23:05)
[2017-01-28 08:30] LABS: BASOPHIL 0.5 % (0-2.0); EOSINOPHIL 0.8 % (0-4.5); MCH 31.3 pg (25.7-33.7); MCHC 32.1 g/dl (32.0-36.0); MEAN CELL VOLUME 97.5 fl (80-96); MEAN PLT VOLUME 7.8 fl (7.5-11.1); NEUTROPHILS 66.8 % (42.8-82.8); PLATELET COUNT 364 K/MM3 (134-434); RDW 21.1 % (11.6-15.6)
[2017-01-28 08:48] LABS: ALBUMIN 1.9 g/dl (3.4-5.0); ALK PHOS 82 U/L (45-117); ANION GAP 6 (8-16); BILIRUBIN,TOTAL 0.3 mg/dL (0.2-1.0); CALCIUM 8.1 mg/dL (8.5-10.1); CO2 28 mmol/L (21-32); CREATININE 1.1 mg/dL (0.55-1.02); GLUCOSE,RANDOM 206 mg/dL (74-106); SGOT/AST 17 U/L (15-37); SGPT/ALT 15 U/L (12-78); TOT PROT 7.7 g/dl (6.4-8.2)
--- NOTE | 2017-01-28 09:55 | PN ---
Progress Note, Physician History of Present Illness: Lethargic Not conversant No acute distress Remains febrile WBC elevated 18K BC prelim no growth. Urine c/s pending CXR elevated R hemidiaphragm; no infiltrate - Current Medication List Current Medications: Active Medications Acetaminophen (Tylenol Oral Solution -) 650 mg PO Q6H PRN PRN Reason: FEVER OR PAIN Last Admin: 01/28/17 08:29 Dose: 650 mg Ascorbic Acid (Vitamin C Oral Solution -) 500 mg GT TID [facility] Last Admin: 01/28/17 06:31 Dose: 500 mg Doxazosin Mesylate (Cardura -) 2 mg GT DAILY [facility] Last Admin: 01/27/17 11:37 Dose: 2 mg Escitalopram Oxalate (Lexapro Oral Solution -) 10 mg GT DAILY [facility] Last Admin: 01/27/17 17:37 Dose: 5 ml Fentanyl (Duragesic 12mcg Patch -) 1 patch TD Q72H [facility] Last Admin: 01/26/17 21:22 Dose: 1 patch Ferrous Sulfate (Feosol) 300 mg GT DAILY [facility] Last Admin: 01/27/17 11:25 Dose: 300 mg Heparin Sodium (Porcine) (Heparin -) 5,000 unit SQ BID [facility] Last Admin: 01/27/17 22:20 Dose: 5,000 unit Sodium Chloride (Normal Saline -) 1,000 mls @ 75 mls/hr IV ASDIR [facility] Last Admin: 01/28/17 06:31 Dose: 75 mls/hr Tigecycline 50 mg/ Dextrose 100 mls @ 100 mls/hr IVPB BID [facility] PRN Reason: Protocol Last Admin: 01/27/17 22:20 Dose: 100 mls/hr Insulin Aspart (Novolog Vial Sliding Scale -) 1 vial SQ ACHS [facility] PRN Reason: Protocol Last Admin: 01/28/17 06:31 Dose: 2 unit Insulin Aspart (Novolog Mix 70/30 Vial) 10 units SQ BIDAC [facility] Last Admin: 01/28/17 06:31 Dose: 10 units Insulin Detemir (Levemir Vial) 8 units SQ HS [facility] Last Admin: 01/27/17 22:20 Dose: 8 units Miscellaneous (Duragesic Patch Waste) 1 each TD PRN PRN Ranitidine HCl (Zantac Oral Solution -) 150 mg GT DAILY [facility] Last Admin: 01/27/17 11:25 Dose: 150 mg - Objective Vital Signs: Vital Signs Temperature 100.7 F H 01/28/17 06:00 Pulse Rate 112 H 01/28/17 06:00 Respiratory Rate 20 01/28/17 06:00 Blood Pressure 105/82 01/28/17 06:00 O2 Sat by Pulse Oximetry (%) 98 01/27/17 21:00 Constitutional: Yes: No Distress, Pallor Eyes: Yes: Conjunctiva Clear Cardiovascular: Yes: Regular Rate and Rhythm, Murmur, S1, S2 Respiratory: Yes: Diminished Gastrointestinal: Yes: Normal Bowel Sounds, Soft. No: Tenderness Extremities: Yes: Other (S/P bilateral BKA) Wound/Incision: Yes: Other (Stage IV sacral decubitus ulcer packed no purulence or foul odor) Labs: CBC, BMP 01/28/17 07:00 01/28/17 07:00 INR, PTT INR 0.94 (0.82-1.09) 01/26/17 16:32 Assessment/Plan Sepsis ? source ? decubitus Fever/ leukocytosis Hx resistant pathogens Dementia Await c/s Continue Tygacil Hold additional gentamicin (elevated trough ) Contact precautions
[2017-01-28] MEDS ORDERED: PT OWN MED DRAWER 7, Y5N ONE ×3 (10:00→13:36)
[2017-01-28] MEDS: TIGECYCLINE 50 MG in DEXTROSE 5%-WATER - 100 ML IVPB SCH ×2 (10:08→23:05)
[2017-01-28] MEDS: FERROUS SO4 300 MG/5 ML ORAL SOLN UNIT DOSE CUPS GT SCH (10:09)
[2017-01-28] MEDS: DOXAZOSIN MESYLATE 2 MG TABLET (FP) GT SCH (10:09)
[2017-01-28] MEDS: ESCITALOPRAM OXALATE 5 MG/5 ML GT SCH (10:09)
[2017-01-28] MEDS: HEPARIN NA (PORCINE) 5,000 UNITS/ML 1ML VIAL SQ SCH ×2 (10:10→23:05)
[2017-01-28] MEDS: RANITIDINE HCL 150 MG/10 ML UNIT-DOSE GT SCH (10:10)
--- NOTE | 2017-01-28 12:19 | PN ---
Progress Note, Physician Chief Complaint: lethargic eyes closed febrile 101 - Current Medication List Current Medications: Active Medications Acetaminophen (Tylenol Oral Solution -) 650 mg PO Q6H PRN PRN Reason: FEVER OR PAIN Last Admin: 01/28/17 08:29 Dose: 650 mg Ascorbic Acid (Vitamin C Oral Solution -) 500 mg GT TID [facility] Last Admin: 01/28/17 06:31 Dose: 500 mg Doxazosin Mesylate (Cardura -) 2 mg GT DAILY [facility] Last Admin: 01/28/17 10:09 Dose: 2 mg Escitalopram Oxalate (Lexapro Oral Solution -) 10 mg GT DAILY [facility] Last Admin: 01/28/17 10:09 Dose: 5 ml Fentanyl (Duragesic 12mcg Patch -) 1 patch TD Q72H [facility] Last Admin: 01/26/17 21:22 Dose: 1 patch Ferrous Sulfate (Feosol) 300 mg GT DAILY [facility] Last Admin: 01/28/17 10:09 Dose: 300 mg Heparin Sodium (Porcine) (Heparin -) 5,000 unit SQ BID [facility] Last Admin: 01/28/17 10:10 Dose: 5,000 unit Sodium Chloride (Normal Saline -) 1,000 mls @ 75 mls/hr IV ASDIR [facility] Last Admin: 01/28/17 06:31 Dose: 75 mls/hr Tigecycline 50 mg/ Dextrose 100 mls @ 100 mls/hr IVPB BID [facility] PRN Reason: Protocol Last Admin: 01/28/17 10:08 Dose: 100 mls/hr Insulin Aspart (Novolog Vial Sliding Scale -) 1 vial SQ ACHS [facility] PRN Reason: Protocol Last Admin: 01/28/17 11:38 Dose: 5 unit Insulin Aspart (Novolog Mix 70/30 Vial) 10 units SQ BIDAC [facility] Last Admin: 01/28/17 06:31 Dose: 10 units Insulin Detemir (Levemir Vial) 8 units SQ HS [facility] Last Admin: 01/27/17 22:20 Dose: 8 units Miscellaneous (Duragesic Patch Waste) 1 each TD PRN PRN Ranitidine HCl (Zantac Oral Solution -) 150 mg GT DAILY [facility] Last Admin: 01/28/17 10:10 Dose: 150 mg - Objective Vital Signs: Vital Signs Temperature 101.3 F H 01/28/17 08:25 Pulse Rate 108 H 01/28/17 08:25 Respiratory Rate 18 01/28/17 08:25 Blood Pressure 121/61 01/28/17 08:25 O2 Sat by Pulse Oximetry (%) 98 01/27/17 21:00 Constitutional: Yes: Calm Cardiovascular: Yes: Regular Rate and Rhythm, Murmur, S1, S2 Respiratory: Yes: CTA Bilaterally, Diminished (at bases) Gastrointestinal: Yes: Normal Bowel Sounds, Soft, Other (g tube) Genitourinary: Yes: Gonzales Present Edema: No Wound/Incision: Yes: Other (sacral ulcer) Labs: CBC, BMP 01/28/17 07:00 01/28/17 07:00 INR, PTT INR 0.94 (0.82-1.09) 01/26/17 16:32 Problem List - Problems (1) Fever Assessment/Plan: tigacil gent on hold today cultures pending Code(s): R50.9 - FEVER, UNSPECIFIED (2) ARF (acute renal failure) Assessment/Plan: ivf monitor renal function- trending down Code(s): N17.9 - ACUTE KIDNEY FAILURE, UNSPECIFIED (3) Diabetes Assessment/Plan: bgm insulin sliding scale hga1c Code(s): E11.9 - TYPE 2 DIABETES MELLITUS WITHOUT COMPLICATIONS Qualifiers: Diabetes mellitus type: type 2 Diabetes mellitus complication detail: with other skin ulcer
--- NOTE | 2017-01-28 14:51 | PN ---
Progress Note (short form) - Note Progress Note: patient spike temp cultures ordered Problem List - Problems (1) Fever Code(s): R50.9 - FEVER, UNSPECIFIED (2) ARF (acute renal failure) Code(s): N17.9 - ACUTE KIDNEY FAILURE, UNSPECIFIED (3) Diabetes Code(s): E11.9 - TYPE 2 DIABETES MELLITUS WITHOUT COMPLICATIONS Qualifiers: Diabetes mellitus type: type 2 Diabetes mellitus complication detail: with other skin ulcer
[2017-01-28] MEDS: INSULIN DETEMIR 100 UNITS/ML MDV SQ SCH (23:05)
[2017-01-29] MEDS ORDERED: INSULIN (NOVOLOG) ASPART 100 UNITS/ML 10ML VIAL ONE (06:07)
[2017-01-29] MEDS: SODIUM CHLORIDE 1,000 ML IV SCH ×2 (06:09→11:40)
[2017-01-29] MEDS: ACETAMINOPHEN 650 MG/20.3 ML ORAL SOLUTION (CUPS) PO PRN ×3 (06:10→17:59)
[2017-01-29] MEDS: ASCORBIC ACID 500 MG/5 ML UNIT DOSE CUP GT SCH ×3 (06:12→21:27)
[2017-01-29] MEDS: INSULIN (NOVOLOG MIX 70/30) 100 UNITS/ML MDV SQ SCH ×2 (06:12→17:55)
[2017-01-29] MEDS: INSULIN SLIDING SCALE (NOVOLOG) 1 VIAL SQ SCH ×4 (06:13→21:24)
[2017-01-29 08:36] LABS: BASOPHIL 0.3 % (0-2.0); EOSINOPHIL 0.3 % (0-4.5); MCH 31.9 pg (25.7-33.7); MCHC 32.1 g/dl (32.0-36.0); MEAN CELL VOLUME 99.5 fl (80-96); MEAN PLT VOLUME 7.8 fl (7.5-11.1); NEUTROPHILS 67.7 % (42.8-82.8); PLATELET COUNT 319 K/MM3 (134-434); RDW 21.3 % (11.6-15.6); WHITE BLOOD COUNT 15.5 K/mm3 (4.0-10.0)
[2017-01-29 08:46] LABS: CALCIUM 7.8 mg/dL (8.5-10.1)
[2017-01-29 08:52] LABS: ALBUMIN 1.9 g/dl (3.4-5.0); ALK PHOS 101 U/L (45-117); ANION GAP 9 (8-16); BILIRUBIN,TOTAL 0.4 mg/dL (0.2-1.0); CO2 24 mmol/L (21-32); GLUCOSE,RANDOM 273 mg/dL (74-106); SGOT/AST 9 U/L (15-37); SGPT/ALT 12 U/L (12-78); TOT PROT 7.3 g/dl (6.4-8.2)
[2017-01-29 09:32] LABS: URINE APPEARANCE CLOUDY; URINE BILIRUBIN NEGATIVE (NEGATIVE); URINE BLOOD 1+ (NEGATIVE); URINE COLOR DKYELLOW; URINE GLUCOSE (UA) 1+ (NEGATIVE); URINE KETONE NEGATIVE (NEGATIVE); URINE NITRITE NEGATIVE (NEGATIVE); URINE UROBILINOGEN NEGATIVE mg/dL (0.2-1.0)
[2017-01-29 09:46] LABS: URINE PROTEIN 2+ (NEGATIVE)
[2017-01-29 09:49] LABS: URINE MUCUS RARE
[2017-01-29 09:53] LABS: URINE RBC 32; URINE WBC 139
[2017-01-29] MEDS: HEPARIN NA (PORCINE) 5,000 UNITS/ML 1ML VIAL SQ SCH ×2 (10:30→21:23)
[2017-01-29] MEDS: RANITIDINE HCL 150 MG/10 ML UNIT-DOSE GT SCH (10:30)
[2017-01-29] MEDS: DOXAZOSIN MESYLATE 2 MG TABLET (FP) GT SCH (10:31)
[2017-01-29] MEDS: ESCITALOPRAM OXALATE 5 MG/5 ML GT SCH (10:31)
[2017-01-29] MEDS: TIGECYCLINE 50 MG in DEXTROSE 5%-WATER - 100 ML IVPB SCH ×2 (10:38→22:43)
[2017-01-29] MEDS ORDERED: PT OWN MED DRAWER 7, Y5N ONE ×2 (10:51→11:35)
[2017-01-29] MEDS: FERROUS SO4 300 MG/5 ML ORAL SOLN UNIT DOSE CUPS GT SCH (11:31)
[2017-01-29 17:00] LABS: URINE LEUK ESTERASE 2+ (NEGATIVE)
--- NOTE | 2017-01-29 17:46 | PN ---
Progress Note, Physician - Current Medication List Current Medications: Active Medications Acetaminophen (Tylenol Oral Solution -) 650 mg PO Q6H PRN PRN Reason: FEVER OR PAIN Last Admin: 01/29/17 11:38 Dose: 650 mg Ascorbic Acid (Vitamin C Oral Solution -) 500 mg GT TID [facility] Last Admin: 01/29/17 06:12 Dose: 500 mg Doxazosin Mesylate (Cardura -) 2 mg GT DAILY [facility] Last Admin: 01/29/17 10:31 Dose: 2 mg Escitalopram Oxalate (Lexapro Oral Solution -) 10 mg GT DAILY [facility] Last Admin: 01/29/17 10:31 Dose: 10 ml Fentanyl (Duragesic 12mcg Patch -) 1 patch TD Q72H [facility] Last Admin: 01/26/17 21:22 Dose: 1 patch Ferrous Sulfate (Feosol) 300 mg GT DAILY [facility] Last Admin: 01/29/17 11:31 Dose: 300 mg Heparin Sodium (Porcine) (Heparin -) 5,000 unit SQ BID [facility] Last Admin: 01/29/17 10:30 Dose: 5,000 unit Sodium Chloride (Normal Saline -) 1,000 mls @ 75 mls/hr IV ASDIR [facility] Last Admin: 01/29/17 11:40 Dose: 75 mls/hr Tigecycline 50 mg/ Dextrose 100 mls @ 100 mls/hr IVPB BID [facility] PRN Reason: Protocol Last Admin: 01/29/17 10:38 Dose: 100 mls/hr Insulin Aspart (Novolog Vial Sliding Scale -) 1 vial SQ ACHS [facility] PRN Reason: Protocol Last Admin: 01/29/17 11:47 Dose: Not Given Insulin Aspart (Novolog Mix 70/30 Vial) 10 units SQ BIDAC [facility] Last Admin: 01/29/17 06:12 Dose: 10 units Insulin Detemir (Levemir Vial) 8 units SQ HS [facility] Last Admin: 01/28/17 23:05 Dose: 8 units Miscellaneous (Duragesic Patch Waste) 1 each TD PRN PRN Ranitidine HCl (Zantac Oral Solution -) 150 mg GT DAILY [facility] Last Admin: 01/29/17 10:30 Dose: 150 mg - Objective Vital Signs: Vital Signs Temperature 102.4 F H 01/29/17 07:00 Pulse Rate 110 H 01/29/17 15:00 Respiratory Rate 20 01/29/17 15:00 Blood Pressure 105/48 01/29/17 15:00 O2 Sat by Pulse Oximetry (%) 95 01/29/17 09:00 Cardiovascular: Yes: S1, S2 Respiratory: Yes: Regular, CTA Bilaterally Gastrointestinal: Yes: Normal Bowel Sounds, Soft Labs: CBC, BMP 01/29/17 07:00 01/29/17 07:00 INR, PTT INR 0.94 (0.82-1.09) 01/26/17 16:32 Assessment/Plan - Problems (1) Fever Assessment/Plan: tigacil gent on hold today cultures pending Code(s): R50.9 - FEVER, UNSPECIFIED (2) ARF (acute renal failure) Assessment/Plan: ivf monitor renal function- trending down Code(s): N17.9 - ACUTE KIDNEY FAILURE, UNSPECIFIED (3) Diabetes Assessment/Plan: bgm insulin sliding scale hga1c Code(s): E11.9 - TYPE 2 DIABETES MELLITUS WITHOUT COMPLICATIONS Qualifiers: Diabetes mellitus type: type 2 Diabetes mellitus complication detail: with other skin ulcer
[2017-01-29] MEDS: fentaNYL 12mcg/hr PATCH.TD72 TD SCH (20:58)
[2017-01-29] MEDS: INSULIN DETEMIR 100 UNITS/ML MDV SQ SCH (21:23)
[2017-01-30] MEDS: ASCORBIC ACID 500 MG/5 ML UNIT DOSE CUP GT SCH ×3 (06:23→22:15)
[2017-01-30] MEDS: INSULIN (NOVOLOG MIX 70/30) 100 UNITS/ML MDV SQ SCH ×2 (06:23→17:27)
[2017-01-30] MEDS: INSULIN SLIDING SCALE (NOVOLOG) 1 VIAL SQ SCH ×4 (06:24→22:14)
[2017-01-30] MEDS: SODIUM CHLORIDE 1,000 ML IV SCH ×2 (06:24→17:20)
[2017-01-30] MEDS ORDERED: PT OWN MED DRAWER 7, Y5N ONE ×3 (07:23→17:15)
[2017-01-30] MEDS ORDERED: INSULIN (NOVOLOG MIX 70/30) 100 UNITS/ML MDV SQ ONE ×2 (07:24→17:13)
[2017-01-30] MEDS: HEPARIN NA (PORCINE) 5,000 UNITS/ML 1ML VIAL SQ SCH ×2 (09:18→22:13)
[2017-01-30] MEDS: RANITIDINE HCL 150 MG/10 ML UNIT-DOSE GT SCH (09:18)
[2017-01-30] MEDS: TIGECYCLINE 50 MG in DEXTROSE 5%-WATER - 100 ML IVPB SCH ×2 (09:18→22:13)
[2017-01-30] MEDS: DOXAZOSIN MESYLATE 2 MG TABLET (FP) GT SCH (09:18)
[2017-01-30] MEDS: FERROUS SO4 300 MG/5 ML ORAL SOLN UNIT DOSE CUPS GT SCH (09:18)
[2017-01-30] MEDS: ESCITALOPRAM OXALATE 5 MG/5 ML GT SCH (09:19)
--- NOTE | 2017-01-30 11:12 | PN ---
Progress Note, Physician History of Present Illness: PEG OUT - Current Medication List Current Medications: Active Medications Acetaminophen (Tylenol Oral Solution -) 650 mg PO Q6H PRN PRN Reason: FEVER OR PAIN Last Admin: 01/29/17 17:59 Dose: 650 mg Ascorbic Acid (Vitamin C Oral Solution -) 500 mg GT TID [facility] Last Admin: 01/30/17 06:23 Dose: 500 mg Doxazosin Mesylate (Cardura -) 2 mg GT DAILY [facility] Last Admin: 01/30/17 09:18 Dose: 2 mg Escitalopram Oxalate (Lexapro Oral Solution -) 10 mg GT DAILY [facility] Last Admin: 01/30/17 09:19 Dose: 10 ml Fentanyl (Duragesic 12mcg Patch -) 1 patch TD Q72H [facility] Last Admin: 01/29/17 20:58 Dose: 1 patch Ferrous Sulfate (Feosol) 300 mg GT DAILY [facility] Last Admin: 01/30/17 09:18 Dose: 300 mg Heparin Sodium (Porcine) (Heparin -) 5,000 unit SQ BID [facility] Last Admin: 01/30/17 09:18 Dose: 5,000 unit Sodium Chloride (Normal Saline -) 1,000 mls @ 75 mls/hr IV ASDIR [facility] Last Admin: 01/30/17 06:24 Dose: 75 mls/hr Tigecycline 50 mg/ Dextrose 100 mls @ 100 mls/hr IVPB BID [facility] PRN Reason: Protocol Last Admin: 01/30/17 09:18 Dose: 100 mls/hr Insulin Aspart (Novolog Vial Sliding Scale -) 1 vial SQ ACHS [facility] PRN Reason: Protocol Last Admin: 01/30/17 06:24 Dose: Not Given Insulin Aspart (Novolog Mix 70/30 Vial) 10 units SQ BIDAC [facility] Last Admin: 01/30/17 06:23 Dose: 10 units Insulin Detemir (Levemir Vial) 8 units SQ HS [facility] Last Admin: 01/29/17 21:23 Dose: 8 units Miscellaneous (Duragesic Patch Waste) 1 each TD PRN PRN Ranitidine HCl (Zantac Oral Solution -) 150 mg GT DAILY [facility] Last Admin: 01/30/17 09:18 Dose: 150 mg - Objective Vital Signs: Vital Signs Temperature 102.4 F H 01/30/17 06:18 Pulse Rate 92 H 01/30/17 00:00 Respiratory Rate 20 01/30/17 06:00 Blood Pressure 110/55 01/30/17 06:00 O2 Sat by Pulse Oximetry (%) 96 01/29/17 21:00 Cardiovascular: Yes: Murmur, S1, S2 Respiratory: Yes: Regular, CTA Bilaterally Gastrointestinal: Yes: Normal Bowel Sounds, Soft Labs: CBC, BMP 01/29/17 07:00 01/29/17 07:00 INR, PTT INR 0.94 (0.82-1.09) 01/26/17 16:32 Assessment/Plan - Problems (1) Fever Assessment/Plan: tigacil gent on hold today cultures pending Code(s): R50.9 - FEVER, UNSPECIFIED (2) ARF (acute renal failure) Assessment/Plan: ivf monitor renal function- trending down Code(s): N17.9 - ACUTE KIDNEY FAILURE, UNSPECIFIED (3) Diabetes Assessment/Plan: bgm insulin sliding scale hga1c Code(s): E11.9 - TYPE 2 DIABETES MELLITUS WITHOUT COMPLICATIONS Qualifiers: Diabetes mellitus type: type 2 Diabetes mellitus complication detail: with other skin ulcer
--- NOTE | 2017-01-30 13:28 | PN ---
Progress Note (short form) - Note Progress Note: dislodged PEG. S/P Peg exchange. Fr 20 replacement tube inserted R> gastrograffin study prior to use
[2017-01-30] MEDS: DEXTROSE 5%-0.45% SALINE 1,000 ML IV SCH (17:21)
--- NOTE | 2017-01-30 20:03 | CONSULT ---
Consult Consult Specialty:: endocrine Referred by:: dr.saba guzman Reason for Consultation:: diabetes mellitus - History of Present Illness Chief Complaint: non verbal History of Present Illness: 81 y f with a PMH of CVA, dementia, HTN, IDDM, HLD, ARF, thyroid dz, and anemia who presents to the ED via EMS from [facility] for a fever. The patient is nonverbal dementia. ROS unable to be completed. Per longterm forms, she has a MRSA positive decubitus ulcer. has labile blood sugars,with neurohypoglycemia unawareness - Past Medical History [employer]: Yes: CVA, Dementia Cardio/Vascular: Yes: Aortic Stenosis, CHF, HTN, Hyperlipdemia Pulmonary: Yes: COPD Gastrointestinal: Yes: GERD Renal/: Yes: Renal Inusuff Endocrine: Yes: Diabetes Mellitus Dermatology: Yes: Other (PU) - Alcohol/Substance Use Hx Alcohol Use: No - Smoking History Smoking history: Never smoked Have you smoked in the past 12 months: No Aproximately how many cigarettes per day: 0 - Social History Usual Living Arrangement: Long Term History of Recent Travel: No Home Medications - Allergies Allergies/Adverse Reactions: Allergies Allergy/AdvReac Type Severity Reaction Status Date / Time No Known Drug Allergies Allergy Verified 01/26/17 17:31 - Home Medications Home Medications: Ambulatory Orders Acetaminophen Oral Solution [Tylenol 160mg/5mL Oral Solution -] 650 mg GT Q6H PRN 12/08/16 Doxazosin Mesylate [Cardura] 2 mg GT DAILY 12/08/16 Escitalopram Oxalate [Lexapro 5mg/5mL Oral Solution -] 10 mg GT DAILY 12/08/16 FENTANYL 12mcg PATCH [DURAGESIC 12mcg PATCH -] 1 each TD Q72H 12/08/16 Ferrous Sulfate *Liquid* [Feosol *Liquid*] 330 mg GT TID 12/08/16 Heparin - 5,000 units IJ BID 12/08/16 Insulin Aspart [Novolog Flexpen] 0 unit SQ TID 12/08/16 Lactobacillus Acidophilus [Acidophilus] 1 each GT DAILY 12/08/16 Naph,Mb-Db/K pH,Mbdb [PHOS-NaK PACKET -] 1 packet GT DAILY 12/08/16 Ranitidine HCl 150 mg GT DAILY 12/08/16 Vitamin B Comp W-C [Nephro-Rafael -] 1 tablet GT DAILY 12/08/16 Ascorbate Calcium [Vitamin C] 500 mg GT Q8H 12/21/16 Vitamin B Comp W-C [Nephro-Rafael -] 1 tablet GT DAILY 12/21/16 Insulin (Levemir) [Levemir Vial] 8 units SQ HS ml 12/31/16 Insulin Sliding Scale [Novolog Vial Sliding Scale -] 1 vial SQ ACHS units 12/31 Metronidazole [Flagyl -] 500 mg GT TID tablet 12/31/16 Potassium Chloride [Potassium Chloride Oral Liquid] 10 meq PO DAILY #30 ea 12/31 Review of Systems Unable to obtain ROS, reason: not possible Physical Exam Vital Signs: Vital Signs Temperature 101.2 F H 01/30/17 14:00 Pulse Rate 99 H 01/30/17 09:00 Respiratory Rate 20 01/30/17 14:00 Blood Pressure 127/90 01/30/17 09:00 O2 Sat by Pulse Oximetry (%) 96 01/29/17 21:00 Constitutional: Yes: Calm Eyes: Yes: EOM Intact HENT: Yes: Normocephalic Neck: Yes: Trachea Midline Cardiovascular: Yes: Regular Rate and Rhythm Respiratory: Yes: CTA Bilaterally Gastrointestinal: Yes: Normal Bowel Sounds ...Rectal Exam: Yes: Deferred Renal/: Yes: WNL Musculoskeletal: Yes: Muscle Weakness Edema: No Wound/Incision: Yes: Well Approximated, Dressing Dry and Intact Neurological: Yes: Alert Labs: CBC, BMP 01/29/17 07:00 01/29/17 07:00 Problem List - Problems (1) C. difficile diarrhea Code(s): A04.7 - ENTEROCOLITIS DUE TO CLOSTRIDIUM DIFFICILE * DO NOT USE * (2) Decubitus ulcer Code(s): L89.90 - PRESSURE ULCER OF UNSPECIFIED SITE, UNSPECIFIED STAGE Qualifiers: Pressure ulcer location: sacral region Pressure ulcer stage: unspecified pressure ulcer stage Qualified Code(s): L89.159 - Pressure ulcer of sacral region, unspecified stage; L89.159 - Pressure ulcer of sacral region, unspecified stage (3) Hyperkalemia Code(s): E87.5 - HYPERKALEMIA (4) UTI (urinary tract infection) Code(s): N39.0 - URINARY TRACT INFECTION, SITE NOT SPECIFIED Qualifiers: Urinary tract infection type: site unspecified Hematuria presence: without hematuria Qualified Code(s): N39.0 - Urinary tract infection, site not specified; N39.0 - Urinary tract infection, site not specified; R31.9 - Hematuria, unspecified; R31.9 - Hematuria, unspecified (5) Type 2 diabetes mellitus with autonomic neuropathy Code(s): E11.43 - TYPE 2 DIABETES W DIABETIC AUTONOMIC (POLY)NEUROPATHY Assessment/Plan Current Active Problems Anemia (Acute) C. difficile diarrhea (Acute) Decubitus ulcer (Acute) Hyperkalemia (Acute) Septic shock (Acute) UTI (urinary tract infection) (Acute) diabetes mellitus hyperglycemia resistance from source of infection Laboratory Results - last 24 hr 01/28/17 01/29/17 01/30/17 09:10 21:06 02:37 POC Glucometer 260 189 Urine RBC Cancelled Urine WBC Cancelled Ur Epithelial Cells Cancelled Urine Crystals Cancelled Calcium Oxalate Crystal Cancelled Uric Acid Crystals Cancelled Triple Phos Crystals Cancelled Amorphous Phosphates Cancelled Amorphous Urates Cancelled Amorphous Sediment Cancelled Urine Bacteria Cancelled Urine Casts Cancelled Hyaline Casts Cancelled Granular Casts Cancelled Waxy Casts Cancelled RBC Casts Cancelled WBC Casts Cancelled Urine Mucus Cancelled Urine Other Cancelled Urine Trichomonas Cancelled Urine Yeast Cancelled 01/30/17 01/30/17 01/30/17 06:23 12:24 17:27 POC Glucometer 162 55 143 Urine RBC Urine WBC Ur Epithelial Cells Urine Crystals Calcium Oxalate Crystal Uric Acid Crystals Triple Phos Crystals Amorphous Phosphates Amorphous Urates Amorphous Sediment Urine Bacteria Urine Casts Hyaline Casts Granular Casts Waxy Casts RBC Casts WBC Casts Urine Mucus Urine Other Urine Trichomonas Urine Yeast Laboratory Tests 01/28/17 01/29/17 01/29/17 21:45 05:48 07:00 Sodium 148 H Potassium 4.8 Chloride 115 H Carbon Dioxide 24 Anion Gap 9 BUN 64 H Creatinine 1.0 POC Glucometer 149 281 Calcium 7.8 L 01/29/17 11:46 Sodium Potassium Chloride Carbon Dioxide Anion Gap BUN Creatinine POC Glucometer 182 Calcium plan: bgm qid novolog scale levemir 20 units am levemir 10 units hs
[2017-01-30] MEDS: INSULIN DETEMIR 100 UNITS/ML MDV SQ SCH (22:14)
[2017-01-30] MEDS: ACETAMINOPHEN 650 MG/20.3 ML ORAL SOLUTION (CUPS) PO PRN (22:15)
[2017-01-31] MEDS: INSULIN DETEMIR 100 UNITS/ML MDV SQ SCH ×2 (06:17→21:39)
[2017-01-31] MEDS: ACETAMINOPHEN 650 MG/20.3 ML ORAL SOLUTION (CUPS) PO PRN ×2 (06:18→22:47)
[2017-01-31] MEDS: ASCORBIC ACID 500 MG/5 ML UNIT DOSE CUP GT SCH ×3 (06:18→21:39)
[2017-01-31] MEDS: INSULIN SLIDING SCALE (NOVOLOG) 1 VIAL SQ SCH ×4 (06:19→21:39)
[2017-01-31] MEDS ORDERED: PT OWN MED DRAWER 7, Y5N ONE ×2 (06:39→10:31)
[2017-01-31] MEDS ORDERED: INSULIN (NOVOLOG) ASPART 100 UNITS/ML 10ML VIAL ONE ×2 (06:39→20:51)
[2017-01-31 07:47] LABS: BASOPHIL 0.5 % (0-2.0); EOSINOPHIL 1.2 % (0-4.5); MCH 31.4 pg (25.7-33.7); MCHC 31.6 g/dl (32.0-36.0); MEAN CELL VOLUME 99.2 fl (80-96); MEAN PLT VOLUME 8.5 fl (7.5-11.1); NEUTROPHILS 60.9 % (42.8-82.8); PLATELET COUNT 283 K/MM3 (134-434); RDW 21.2 % (11.6-15.6); WHITE BLOOD COUNT 11.3 K/mm3 (4.0-10.0)
[2017-01-31 08:26] LABS: ALBUMIN 1.8 g/dl (3.4-5.0); ALK PHOS 110 U/L (45-117); ANION GAP 7 (8-16); BILIRUBIN,TOTAL 0.3 mg/dL (0.2-1.0); CALCIUM 8.1 mg/dL (8.5-10.1); CO2 25 mmol/L (21-32); CREATININE 0.7 mg/dL (0.55-1.02); GLUCOSE,RANDOM 81 mg/dL (74-106); SGOT/AST 11 U/L (15-37); SGPT/ALT 9 U/L (12-78); TOT PROT 7.2 g/dl (6.4-8.2)
--- NOTE | 2017-01-31 10:36 | PN ---
Progress Note, Physician Chief Complaint: patient seen and examined sleepy in bed temp noted 100.1 wbc trending down - Current Medication List Current Medications: Active Medications Acetaminophen (Tylenol Oral Solution -) 650 mg PO Q6H PRN PRN Reason: FEVER OR PAIN Last Admin: 01/31/17 06:18 Dose: 650 mg Acetaminophen (Tylenol Suppository -) 650 mg [place] Q6H PRN PRN Reason: FEVER OR PAIN Ascorbic Acid (Vitamin C Oral Solution -) 500 mg GT TID [facility] Last Admin: 01/31/17 06:18 Dose: 500 mg Doxazosin Mesylate (Cardura -) 2 mg GT DAILY [facility] Last Admin: 01/30/17 09:18 Dose: 2 mg Escitalopram Oxalate (Lexapro Oral Solution -) 10 mg GT DAILY [facility] Last Admin: 01/30/17 09:19 Dose: 10 ml Fentanyl (Duragesic 12mcg Patch -) 1 patch TD Q72H [facility] Last Admin: 01/29/17 20:58 Dose: 1 patch Ferrous Sulfate (Feosol) 300 mg GT DAILY [facility] Last Admin: 01/30/17 09:18 Dose: 300 mg Heparin Sodium (Porcine) (Heparin -) 5,000 unit SQ BID [facility] Last Admin: 01/30/17 22:13 Dose: 5,000 unit Tigecycline 50 mg/ Dextrose 100 mls @ 100 mls/hr IVPB BID [facility] PRN Reason: Protocol Last Admin: 01/30/17 22:13 Dose: 100 mls/hr Dextrose/Sodium Chloride (D5-1/2ns -) 1,000 mls @ 50 mls/hr IV ASDIR [facility] Last Admin: 01/30/17 17:21 Dose: 50 mls/hr Insulin Aspart (Novolog Vial Sliding Scale -) 1 vial SQ ACHS [facility] PRN Reason: Protocol Last Admin: 01/31/17 06:19 Dose: Not Given Insulin Detemir (Levemir Vial) 17 units SQ AM [facility] Last Admin: 01/31/17 06:17 Dose: 17 units Insulin Detemir (Levemir Vial) 8 units SQ HS [facility] Last Admin: 01/30/17 22:14 Dose: 8 units Miscellaneous (Duragesic Patch Waste) 1 each TD PRN PRN Ranitidine HCl (Zantac Oral Solution -) 150 mg GT DAILY [facility] Last Admin: 01/30/17 09:18 Dose: 150 mg - Objective Vital Signs: Vital Signs Temperature 98.1 F 01/31/17 05:00 Pulse Rate 90 01/31/17 05:00 Respiratory Rate 20 01/31/17 05:00 Blood Pressure 125/58 01/31/17 05:00 O2 Sat by Pulse Oximetry (%) 99 01/30/17 21:00 Constitutional: Yes: Calm, Thin Cardiovascular: Yes: Murmur, S1, S2 Respiratory: Yes: Diminished Gastrointestinal: Yes: Normal Bowel Sounds, Soft, Other (g tube) Genitourinary: Yes: [place] Present Extremities: Yes: Other (BKA) Edema: No Labs: CBC, BMP 01/31/17 07:00 01/31/17 07:00 INR, PTT INR 0.94 (0.82-1.09) 01/26/17 16:32 Problem List - Problems (1) Fever Assessment/Plan: Microbiology 01/26/17 16:30 Urine - Urine - Catheterized Urine Culture - Final Proteus Mirabilis will adjust abx once seen by ID Code(s): R50.9 - FEVER, UNSPECIFIED (2) ARF (acute renal failure) Assessment/Plan: ivf monitor renal function- trending down from 64 to 48 Code(s): N17.9 - ACUTE KIDNEY FAILURE, UNSPECIFIED (3) Diabetes Assessment/Plan: bgm insulin adjusted seen by endocrine sliding scale hga1c Code(s): E11.9 - TYPE 2 DIABETES MELLITUS WITHOUT COMPLICATIONS Qualifiers: Diabetes mellitus type: type 2 Diabetes mellitus complication detail: with other skin ulcer (4) Hypernatremia Assessment/Plan: renal evaluation Code(s): E87.0 - HYPEROSMOLALITY AND HYPERNATREMIA
[2017-01-31] MEDS: HEPARIN NA (PORCINE) 5,000 UNITS/ML 1ML VIAL SQ SCH ×2 (10:37→21:38)
[2017-01-31] MEDS: FERROUS SO4 300 MG/5 ML ORAL SOLN UNIT DOSE CUPS GT SCH (10:37)
[2017-01-31] MEDS: DOXAZOSIN MESYLATE 2 MG TABLET (FP) GT SCH (10:37)
[2017-01-31] MEDS: ESCITALOPRAM OXALATE 5 MG/5 ML GT SCH (10:38)
[2017-01-31] MEDS: RANITIDINE HCL 150 MG/10 ML UNIT-DOSE GT SCH (10:38)
[2017-01-31] MEDS: TIGECYCLINE 50 MG in DEXTROSE 5%-WATER - 100 ML IVPB SCH ×2 (10:38→21:40)
--- NOTE | 2017-01-31 10:39 | PN ---
Progress Note (short form) - Note Progress Note: No acute distress on NC O2. Low grade temps noted. No acute events overnight. Intake & Output 01/29/17 01/30/17 01/30/17 01/31/17 00:59 00:59 23:59 23:59 Intake Total 810 Output Total Balance 810 Weight 99 lb 8 oz Last Vital Signs Temp Pulse Resp BP Pulse Ox 98.1 F 90 20 125/58 99 01/31/17 05:00 01/31/17 05:00 01/31/17 05:00 01/31/17 05:00 01/30/17 21:00 Active Medications Acetaminophen (Tylenol Oral Solution -) 650 mg PO Q6H PRN PRN Reason: FEVER OR PAIN Last Admin: 01/31/17 06:18 Dose: 650 mg Acetaminophen (Tylenol Suppository -) 650 mg [place] Q6H PRN PRN Reason: FEVER OR PAIN Ascorbic Acid (Vitamin C Oral Solution -) 500 mg GT TID [facility] Last Admin: 01/31/17 06:18 Dose: 500 mg Doxazosin Mesylate (Cardura -) 2 mg GT DAILY [facility] Last Admin: 01/31/17 10:37 Dose: 2 mg Escitalopram Oxalate (Lexapro Oral Solution -) 10 mg GT DAILY [facility] Last Admin: 01/31/17 10:38 Dose: 5 ml Fentanyl (Duragesic 12mcg Patch -) 1 patch TD Q72H [facility] Last Admin: 01/29/17 20:58 Dose: 1 patch Ferrous Sulfate (Feosol) 300 mg GT DAILY [facility] Last Admin: 01/31/17 10:37 Dose: 300 mg Heparin Sodium (Porcine) (Heparin -) 5,000 unit SQ BID [facility] Last Admin: 01/31/17 10:37 Dose: 5,000 unit Tigecycline 50 mg/ Dextrose 100 mls @ 100 mls/hr IVPB BID [facility] PRN Reason: Protocol Last Admin: 01/31/17 10:38 Dose: 100 mls/hr Dextrose/Sodium Chloride (D5-1/2ns -) 1,000 mls @ 50 mls/hr IV ASDIR [facility] Last Admin: 01/30/17 17:21 Dose: 50 mls/hr Insulin Aspart (Novolog Vial Sliding Scale -) 1 vial SQ ACHS [facility] PRN Reason: Protocol Last Admin: 01/31/17 06:19 Dose: Not Given Insulin Detemir (Levemir Vial) 17 units SQ AM [facility] Last Admin: 01/31/17 06:17 Dose: 17 units Insulin Detemir (Levemir Vial) 8 units SQ HS [facility] Last Admin: 01/30/17 22:14 Dose: 8 units Miscellaneous (Duragesic Patch Waste) 1 each TD PRN PRN Ranitidine HCl (Zantac Oral Solution -) 150 mg GT DAILY [facility] Last Admin: 01/31/17 10:38 Dose: 150 mg Constitutional: Yes: NAD Eyes: Yes: Conjunctiva Clear, EOM Intact HENT: Yes: Atraumatic, Normocephalic Neck: Yes: Supple, Trachea Midline Cardiovascular: Yes: Tachycardia Respiratory: Yes: Diminished at the bases ...Clubbing: No Gastrointestinal: Yes: Normal Bowel Sounds, Soft, Other (+PEG). No: Tenderness Extremities: Yes: Amputation (bilateral BKA) Edema: No Labs: Laboratory Results - last 24 hr 01/30/17 01/30/17 01/30/17 12:24 17:27 22:12 WBC RBC Hgb Hct MCV MCH MCHC RDW Plt Count MPV Neutrophils % Lymphocytes % Monocytes % Eosinophils % Basophils % Sodium Potassium Chloride Carbon Dioxide Anion Gap BUN Creatinine Creat Clearance w eGFR POC Glucometer 55 143 109 Random Glucose Calcium Total Bilirubin AST ALT Alkaline Phosphatase Total Protein Albumin 01/31/17 01/31/17 01/31/17 02:28 06:16 07:00 WBC 11.3 H RBC 2.95 L Hgb 9.3 L Hct 29.3 L MCV 99.2 H MCH 31.4 MCHC 31.6 L RDW 21.2 H Plt Count 283 MPV 8.5 Neutrophils % 60.9 Lymphocytes % 33.4 D Monocytes % 4.0 Eosinophils % 1.2 D Basophils % 0.5 Sodium Potassium Chloride Carbon Dioxide Anion Gap BUN Creatinine Creat Clearance w eGFR POC Glucometer 138 93 Random Glucose Calcium Total Bilirubin AST ALT Alkaline Phosphatase Total Protein Albumin 01/31/17 07:00 WBC RBC Hgb Hct MCV MCH MCHC RDW Plt Count MPV Neutrophils % Lymphocytes % Monocytes % Eosinophils % Basophils % Sodium 153 H Potassium 5.2 H Chloride 121 H Carbon Dioxide 25 Anion Gap 7 L BUN 48 H D Creatinine 0.7 D Creat Clearance w eGFR > 60 POC Glucometer Random Glucose 81 D Calcium 8.1 L Total Bilirubin 0.3 D AST 11 L D ALT 9 L D Alkaline Phosphatase 110 Total Protein 7.2 Albumin 1.8 L Problem List - Problems (1) UTI (urinary tract infection) Code(s): N39.0 - URINARY TRACT INFECTION, SITE NOT SPECIFIED Qualifiers: Urinary tract infection type: site unspecified Hematuria presence: without hematuria Qualified Code(s): N39.0 - Urinary tract infection, site not specified; N39.0 - Urinary tract infection, site not specified; R31.9 - Hematuria, unspecified; R31.9 - Hematuria, unspecified (2) Severe sepsis Code(s): A41.9 - SEPSIS, UNSPECIFIED ORGANISM R65.20 - SEVERE SEPSIS WITHOUT SEPTIC SHOCK (3) Decubitus ulcer Code(s): L89.90 - PRESSURE ULCER OF UNSPECIFIED SITE, UNSPECIFIED STAGE Qualifiers: Pressure ulcer location: sacral region Pressure ulcer stage: unspecified pressure ulcer stage Qualified Code(s): L89.159 - Pressure ulcer of sacral region, unspecified stage; L89.159 - Pressure ulcer of sacral region, unspecified stage (4) ARF (acute renal failure) Code(s): N17.9 - ACUTE KIDNEY FAILURE, UNSPECIFIED (5) Lactic acidosis Code(s): E87.2 - ACIDOSIS (6) Diabetes Code(s): E11.9 - TYPE 2 DIABETES MELLITUS WITHOUT COMPLICATIONS Qualifiers: Diabetes mellitus type: type 2 Diabetes mellitus complication detail: with other skin ulcer (7) HTN (hypertension) Code(s): I10 - ESSENTIAL (PRIMARY) HYPERTENSION Qualifiers: Hypertension type: essential hypertension Qualified Code(s): I10 - Essential (primary) hypertension; I10 - Essential (primary) hypertension; I10 - Essential (primary) hypertension Assessment/Plan UTI Severe Sepsis Lactic Acidosis Acute Kidney Injury B/L BKA HTN DM Advanced Dementia ABX per ID Follow up final cultures Monitor urine output, creatinine O2 to keep Spo2 >90% VTE prophylaxis DNR/DNI Dr Galeana
[2017-01-31] MEDS: DEXTROSE 5%-0.45% SALINE 1,000 ML IV SCH ×2 (14:10→17:29)
--- NOTE | 2017-01-31 14:40 | CONSULT ---
Consultation: REQUESTING PROVIDER: Dr. Marie CONSULT REQUEST: We have been asked to medically evaluate this patient for NEPHROLOGY (w/Dr. Manzano). HISTORY OF PRESENT ILLNESS: 81 y/o F w/sig PMH of CVA, dementia, non-verbal, b/l BKA, HTN, IDDM, HLD, thyroid disease, anemia presented to ER from [facility] for fever. Pt has been admitted for sepsis secondary to UTI vs sacral decubitus ulcer. Pt is non- verbal and history was unable to be obtained. We have been consulted for hypernatremia. PMH: as per charts: CVA, dementia, non-verbal, b/l BKA, HTN, iDDM, HLD, thyroid disease, anemia Past surgical hx: G-tube placement; B/L BKA Social Hx: unable to be obtained FH: unable to be obtained REVIEW OF SYSTEMS: Cannot be obtained as pt is non-verbal PHYSICAL EXAMINATION Vital Signs - 24 hr 01/30/17 01/30/17 01/31/17 17:00 21:00 01:00 Temperature 99.5 F 99.8 F H 100.1 F H Pulse Rate 95 H 96 H 99 H Respiratory 20 20 20 Rate Blood Pressure 109/72 121/66 143/69 O2 Sat by Pulse 99 Oximetry (%) 01/31/17 01/31/17 05:00 09:00 Temperature 98.1 F Pulse Rate 90 Respiratory 20 Rate Blood Pressure 125/58 O2 Sat by Pulse 98 Oximetry (%) GENERAL: Pt is asleep and does not awaken to verbal or physical stimuli. EYES: sclera anicteric, conjunctiva clear. EARS, NOSE, THROAT: Dry lips. NECK: No bruits LUNGS: Auscultated anteriorly. CTA b/l HEART: Tachycardic, 2/6 systolic murmur heard in both aortic tricuspid areas. ABDOMEN: Soft, nontender, not distended, normoactive bowel sounds. G-tube in place. No sacral edema. LOWER EXTREMITIES: B/L BKA. No edema. NEUROLOGICAL: not awakening to physical or verbal stimuli at this time. SKIN: Warm, dry, normal turgor. Laboratory Results - last 24 hr 01/30/17 01/30/17 01/31/17 17:27 22:12 02:28 WBC RBC Hgb Hct MCV MCH MCHC RDW Plt Count MPV Neutrophils % Lymphocytes % Monocytes % Eosinophils % Basophils % Sodium Potassium Chloride Carbon Dioxide Anion Gap BUN Creatinine Creat Clearance w eGFR POC Glucometer 143 109 138 Random Glucose Calcium Total Bilirubin AST ALT Alkaline Phosphatase Total Protein Albumin 01/31/17 01/31/17 01/31/17 06:16 07:00 07:00 WBC 11.3 H RBC 2.95 L Hgb 9.3 L Hct 29.3 L MCV 99.2 H MCH 31.4 MCHC 31.6 L RDW 21.2 H Plt Count 283 MPV 8.5 Neutrophils % 60.9 Lymphocytes % 33.4 D Monocytes % 4.0 Eosinophils % 1.2 D Basophils % 0.5 Sodium 153 H Potassium 5.2 H Chloride 121 H Carbon Dioxide 25 Anion Gap 7 L BUN 48 H D Creatinine 0.7 D Creat Clearance w eGFR > 60 POC Glucometer 93 Random Glucose 81 D Calcium 8.1 L Total Bilirubin 0.3 D AST 11 L D ALT 9 L D Alkaline Phosphatase 110 Total Protein 7.2 Albumin 1.8 L 01/31/17 01/31/17 01/31/17 12:01 12:03 12:30 WBC RBC Hgb Hct MCV MCH MCHC RDW Plt Count MPV Neutrophils % Lymphocytes % Monocytes % Eosinophils % Basophils % Sodium Potassium Chloride Carbon Dioxide Anion Gap BUN Creatinine Creat Clearance w eGFR POC Glucometer 56 58 Random Glucose 42 L* D Calcium Total Bilirubin AST ALT Alkaline Phosphatase Total Protein Albumin Imaging: CXR: no acute pathology KUB: G-tube in good position Active Medications Generic Name Dose Route Start Last Admin Trade Name Freq PRN Reason Stop Dose Admin Acetaminophen 650 mg 01/26/17 20:01 01/31/17 06:18 Tylenol Oral Solution - PO 650 mg Q6H PRN Administration FEVER OR PAIN Acetaminophen 650 mg 01/30/17 14:12 Tylenol Suppository - [place] Q6H PRN FEVER OR PAIN Ascorbic Acid 500 mg 01/26/17 22:00 01/31/17 14:10 Vitamin C Oral Solution - GT 500 mg TID [facility] Administration Doxazosin Mesylate 2 mg 01/27/17 10:00 01/31/17 10:37 Cardura - GT 2 mg DAILY [facility] Administration Escitalopram Oxalate 10 mg 01/27/17 10:00 01/31/17 10:38 Lexapro Oral Solution - GT 5 ml DAILY [facility] Administration Fentanyl 1 patch 11/01/17 20:00 01/29/17 20:58 Duragesic 12mcg Patch - TD 1 patch Q72H [facility] Administration Ferrous Sulfate 300 mg 01/27/17 10:00 01/31/17 10:37 Feosol GT 300 mg DAILY [facility] Administration Heparin Sodium (Porcine) 5,000 unit 01/26/17 22:00 01/31/17 10:37 Heparin - SQ 5,000 unit BID [facility] Administration Tigecycline 50 mg/ Dextrose 100 mls @ 100 mls/hr 01/27/17 22:00 01/31/17 10:38 IVPB 100 mls/hr BID [facility] Administration Protocol Dextrose/Sodium Chloride 1,000 mls @ 50 mls/hr 01/30/17 14:15 01/31/17 14:10 D5-1/2ns - IV 50 mls/hr ASDIR [facility] Administration Insulin Aspart 1 vial 01/30/17 20:08 01/31/17 12:19 Novolog Vial Sliding Scale - SQ Not Given ACHS [facility] Protocol Insulin Detemir 17 units 01/31/17 07:00 01/31/17 06:17 Levemir Vial SQ 17 units AM [facility] Administration Insulin Detemir 8 units 01/30/17 20:10 01/30/17 22:14 Levemir Vial SQ 8 units HS [facility] Administration Miscellaneous 1 each 01/26/17 20:05 Duragesic Patch Waste TD PRN PRN Ranitidine HCl 150 mg 01/27/17 10:00 01/31/17 10:38 Zantac Oral Solution - GT 150 mg DAILY [facility] Administration ASSESSMENT/PLAN: 81 y/o F w/sig PMH of CVA, dementia, non-verbal, b/l BKA, HTN, IDDM, HLD, thyroid disease, anemia presented to ER from [facility] for fever. Found to have likely sepsis secondary to uti vs sacral decub ulcer. Hospital course complicated by hypernatremia. -Hypernatremia -D5-1/2NS @ 100 ml/hr -monitor sodium -Free water deficit is 1.9L -ARF -BUN/Cr improving -Cr 0.7, BUN 48, ratio is >20:1 pointing to pre-renal etiology -continue to monitor -Fevers likely secondary to UTI vs sacral decub ulcer infection, possible sepsis. (SIRS 3/4+ - tachy, WBC (now improving), fevers). -continue to monitor BCx. Repeat UCx negative. Initial UCx w/proteus mirabilis -ID on board -abx as per ID -monitor electrolytes -DM -c/w insulin as per endocrine Dispo: We will continue to follow the patient. Thank you for this consultative opportunity. Visit type - Emergency Visit Emergency Visit: Yes ED Registration Date: 01/26/17 Care time: The patient presented to the Emergency Department on the above date and was hospitalized for further evaluation of their emergent condition. - New Patient This patient is new to me today: Yes Date on this admission: 01/31/17 - Critical Care Critical Care patient: No
--- NOTE | 2017-01-31 16:29 | PN ---
Teaching Attending Note Name of Resident: Mark Anthony Rivers (Nephrology) ATTENDING PHYSICIAN STATEMENT I saw and evaluated the patient. I reviewed the resident's note and discussed the case with the resident. I agree with the resident's findings and plan as documented. SUBJECTIVE: This is a 81 year old woman with PMhx of CVA, dementia, non-verbal, b/l BKA, HTN , IDDM, HLD, thyroid disease, anemia presented to ER from [facility] for fever. Pt known to our service from prior admissions for hypernatrema and GIANNI. Pt is unable to provide history. PMhx: As above Allergies: NKDA Family Hx: Unable to obtain ROS: unable to obtain Home Meds: Home Medications Medication Instructions Recorded Acetaminophen Oral Solution 650 mg GT Q6H PRN 12/08/16 [Tylenol 160mg/5mL Oral Solution -] Doxazosin Mesylate [Cardura] 2 mg GT DAILY 12/08/16 Escitalopram Oxalate [Lexapro 10 mg GT DAILY 12/08/16 5mg/5mL Oral Solution -] FENTANYL 12mcg PATCH [DURAGESIC 1 each TD Q72H 12/08/16 12mcg PATCH -] Ferrous Sulfate *Liquid* [Feosol 330 mg GT TID 12/08/16 *Liquid*] Heparin - 5,000 units IJ BID 12/08/16 Insulin Aspart [Novolog Flexpen] 0 unit SQ TID 12/08/16 Lactobacillus Acidophilus 1 each GT DAILY 12/08/16 [Acidophilus] Naph,Mb-Db/K pH,Mbdb [PHOS-NaK 1 packet GT DAILY 12/08/16 PACKET -] Ranitidine HCl 150 mg GT DAILY 12/08/16 Vitamin B Comp W-C [Nephro-Rafael -] 1 tablet GT DAILY 12/08/16 Ascorbate Calcium [Vitamin C] 500 mg GT Q8H 12/21/16 Vitamin B Comp W-C [Nephro-Rafael -] 1 tablet GT DAILY 12/21/16 Insulin (Levemir) [Levemir Vial] 8 units SQ HS ml 12/31/16 Insulin Sliding Scale [Novolog 1 vial SQ ACHS units 12/31/16 Vial Sliding Scale -] Metronidazole [Flagyl -] 500 mg GT TID tablet 12/31/16 Potassium Chloride [Potassium 10 meq PO DAILY #30 ea 12/31/16 Chloride Oral Liquid] OBJECTIVE: Vital Signs Temperature 98.4 F 01/31/17 15:05 Pulse Rate 84 01/31/17 15:05 Respiratory Rate 18 01/31/17 15:05 Blood Pressure 111/70 01/31/17 15:05 O2 Sat by Pulse Oximetry (%) 98 01/31/17 09:00 Intake & Output 01/29/17 01/30/17 01/30/17 01/31/17 00:59 00:59 23:59 23:59 Intake Total 810 Output Total 1000 Balance -190 Weight 99 lb 8 oz NAD, Sleeping, Drowsy Dry MM, No JVD RRR, No M/R CTA, no rales or wheeze soft NT/ND B/L LE BKA no sacral edema CBC, BMP 01/31/17 07:00 01/31/17 12:30 Laboratory Tests 01/31/17 07:00 Sodium 153 H Potassium 5.2 H Chloride 121 H Carbon Dioxide 25 Anion Gap 7 L BUN 48 H D Creatinine 0.7 D Creat Clearance w eGFR > 60 Albumin 1.8 L Current Medications Acetaminophen (Tylenol Oral Solution -) 650 mg PO Q6H PRN PRN Reason: FEVER OR PAIN Last Admin: 01/31/17 06:18 Dose: 650 mg Acetaminophen (Tylenol Suppository -) 650 mg [place] Q6H PRN PRN Reason: FEVER OR PAIN Ascorbic Acid (Vitamin C Oral Solution -) 500 mg GT TID [facility] Last Admin: 01/31/17 14:10 Dose: 500 mg Doxazosin Mesylate (Cardura -) 2 mg GT DAILY [facility] Last Admin: 01/31/17 10:37 Dose: 2 mg Escitalopram Oxalate (Lexapro Oral Solution -) 10 mg GT DAILY [facility] Last Admin: 01/31/17 10:38 Dose: 5 ml Fentanyl (Duragesic 12mcg Patch -) 1 patch TD Q72H [facility] Last Admin: 01/29/17 20:58 Dose: 1 patch Ferrous Sulfate (Feosol) 300 mg GT DAILY [facility] Last Admin: 01/31/17 10:37 Dose: 300 mg Heparin Sodium (Porcine) (Heparin -) 5,000 unit SQ BID [facility] Last Admin: 01/31/17 10:37 Dose: 5,000 unit Tigecycline 50 mg/ Dextrose 100 mls @ 100 mls/hr IVPB BID [facility] PRN Reason: Protocol Last Admin: 01/31/17 10:38 Dose: 100 mls/hr Dextrose/Sodium Chloride (D5-1/2ns -) 1,000 mls @ 100 mls/hr IV ASDIR [facility] Insulin Aspart (Novolog Vial Sliding Scale -) 1 vial SQ ACHS [facility] PRN Reason: Protocol Last Admin: 01/31/17 12:19 Dose: Not Given Insulin Detemir (Levemir Vial) 17 units SQ AM [facility] Last Admin: 01/31/17 06:17 Dose: 17 units Insulin Detemir (Levemir Vial) 8 units SQ HS [facility] Last Admin: 01/30/17 22:14 Dose: 8 units Miscellaneous (Duragesic Patch Waste) 1 each TD PRN PRN Ranitidine HCl (Zantac Oral Solution -) 150 mg GT DAILY [facility] Last Admin: 01/31/17 10:38 Dose: 150 mg ASSESSMENT AND PLAN: 81 year old woman with PMhx of CVA, dementia, non-verbal, b/l BKA, HTN, IDDM, HLD, thyroid disease, anemia presented to ER from [facility] for fever. Pt known to our service from prior admissions for hypernatrema and GIANNI. #Hypernatremia with Azotemia in setting of Fever/Poor oral intake Water deficit is 2.08L Increase 1/2 Ns to 100cc per hour Trend Na and BUN/Cr Q24hrs Abx as per ID supportive care oral intake of water as tolerated #Anemia of chronic disease Trend CBC Check iron saturation no acute indication for Transfusion #UTI/Sacral decubitis/Sepsis Abx as per ID supportive care Thank you will follow Vahid Manzano DO
--- NOTE | 2017-01-31 16:57 | PN ---
Progress Note, Physician History of Present Illness: Lethargic Not conversant No acute distress Remains febrile WBC improved 11k BC no growth. Urine c/s Proteus CXR elevated R hemidiaphragm; no infiltrate - Current Medication List Current Medications: Active Medications Acetaminophen (Tylenol Oral Solution -) 650 mg PO Q6H PRN PRN Reason: FEVER OR PAIN Last Admin: 01/31/17 06:18 Dose: 650 mg Acetaminophen (Tylenol Suppository -) 650 mg [place] Q6H PRN PRN Reason: FEVER OR PAIN Ascorbic Acid (Vitamin C Oral Solution -) 500 mg GT TID [facility] Last Admin: 01/31/17 14:10 Dose: 500 mg Doxazosin Mesylate (Cardura -) 2 mg GT DAILY [facility] Last Admin: 01/31/17 10:37 Dose: 2 mg Escitalopram Oxalate (Lexapro Oral Solution -) 10 mg GT DAILY [facility] Last Admin: 01/31/17 10:38 Dose: 5 ml Fentanyl (Duragesic 12mcg Patch -) 1 patch TD Q72H [facility] Last Admin: 01/29/17 20:58 Dose: 1 patch Ferrous Sulfate (Feosol) 300 mg GT DAILY [facility] Last Admin: 01/31/17 10:37 Dose: 300 mg Heparin Sodium (Porcine) (Heparin -) 5,000 unit SQ BID [facility] Last Admin: 01/31/17 10:37 Dose: 5,000 unit Tigecycline 50 mg/ Dextrose 100 mls @ 100 mls/hr IVPB BID [facility] PRN Reason: Protocol Last Admin: 01/31/17 10:38 Dose: 100 mls/hr Dextrose/Sodium Chloride (D5-1/2ns -) 1,000 mls @ 50 mls/hr IV ASDIR [facility] Last Admin: 01/31/17 14:10 Dose: 50 mls/hr Insulin Aspart (Novolog Vial Sliding Scale -) 1 vial SQ ACHS [facility] PRN Reason: Protocol Last Admin: 01/31/17 12:19 Dose: Not Given Insulin Detemir (Levemir Vial) 17 units SQ AM [facility] Last Admin: 01/31/17 06:17 Dose: 17 units Insulin Detemir (Levemir Vial) 8 units SQ HS [facility] Last Admin: 01/30/17 22:14 Dose: 8 units Miscellaneous (Duragesic Patch Waste) 1 each TD PRN PRN Ranitidine HCl (Zantac Oral Solution -) 150 mg GT DAILY [facility] Last Admin: 01/31/17 10:38 Dose: 150 mg - Objective Vital Signs: Vital Signs Temperature 98.4 F 01/31/17 15:05 Pulse Rate 84 01/31/17 15:05 Respiratory Rate 18 01/31/17 15:05 Blood Pressure 111/70 01/31/17 15:05 O2 Sat by Pulse Oximetry (%) 98 01/31/17 09:00 Constitutional: Yes: No Distress Eyes: Yes: Conjunctiva Clear Cardiovascular: Yes: Regular Rate and Rhythm, S1, S2 Respiratory: Yes: Diminished Gastrointestinal: Yes: Normal Bowel Sounds, Soft. No: Tenderness Extremities: Yes: Other (S/P Bilateral BKA) Integumentary: Yes: Other (Stage IV Sacral decubitus) Labs: CBC, BMP 01/31/17 07:00 01/31/17 12:30 INR, PTT INR 0.94 (0.82-1.09) 01/26/17 16:32 Assessment/Plan Sepsis ? source ? decubitus Fever/ leukocytosis Hx resistant pathogens Dementia Continue Tygacil Add levaquin Contact precautions
[2017-01-31] MEDS: LEVOFLOXACIN 500 MG IVPB 100 ML IVPB SCH (17:29)
[2017-01-31] MEDS ORDERED: IBUPROFEN 400 MG TABLET (FP) PO ONE (23:45)
[2017-02-01] MEDS: DEXTROSE 5%-0.45% SALINE 1,000 ML IV SCH ×2 (03:44→17:56)
[2017-02-01] MEDS: ASCORBIC ACID 500 MG/5 ML UNIT DOSE CUP GT SCH ×3 (06:28→21:52)
[2017-02-01] MEDS: INSULIN DETEMIR 100 UNITS/ML MDV SQ SCH ×2 (06:30→21:51)
[2017-02-01] MEDS: INSULIN SLIDING SCALE (NOVOLOG) 1 VIAL SQ SCH ×4 (06:31→21:51)
--- NOTE | 2017-02-01 08:02 | PN ---
Progress Note, Physician History of Present Illness: PEG REINSERTED - Current Medication List Current Medications: Active Medications Acetaminophen (Tylenol Oral Solution -) 650 mg PO Q6H PRN PRN Reason: FEVER OR PAIN Last Admin: 01/31/17 22:47 Dose: 650 mg Acetaminophen (Tylenol Suppository -) 650 mg [place] Q6H PRN PRN Reason: FEVER OR PAIN Ascorbic Acid (Vitamin C Oral Solution -) 500 mg GT TID [facility] Last Admin: 02/01/17 06:28 Dose: 500 mg Doxazosin Mesylate (Cardura -) 2 mg GT DAILY [facility] Last Admin: 01/31/17 10:37 Dose: 2 mg Escitalopram Oxalate (Lexapro Oral Solution -) 10 mg GT DAILY [facility] Last Admin: 01/31/17 10:38 Dose: 5 ml Fentanyl (Duragesic 12mcg Patch -) 1 patch TD Q72H [facility] Last Admin: 01/29/17 20:58 Dose: 1 patch Ferrous Sulfate (Feosol) 300 mg GT DAILY [facility] Last Admin: 01/31/17 10:37 Dose: 300 mg Heparin Sodium (Porcine) (Heparin -) 5,000 unit SQ BID [facility] Last Admin: 01/31/17 21:38 Dose: 5,000 unit Tigecycline 50 mg/ Dextrose 100 mls @ 100 mls/hr IVPB BID [facility] PRN Reason: Protocol Last Admin: 01/31/17 21:40 Dose: 100 mls/hr Dextrose/Sodium Chloride (D5-1/2ns -) 1,000 mls @ 100 mls/hr IV ASDIR [facility] Last Admin: 02/01/17 03:44 Dose: 100 mls/hr Levofloxacin (Levaquin 500 Mg Premixed Ivpb -) 100 mls @ 100 mls/hr IVPB DAILY [facility] Last Admin: 01/31/17 17:29 Dose: 100 mls/hr Insulin Aspart (Novolog Vial Sliding Scale -) 1 vial SQ ACHS [facility] PRN Reason: Protocol Last Admin: 02/01/17 06:31 Dose: 7 units Insulin Detemir (Levemir Vial) 17 units SQ AM [facility] Last Admin: 02/01/17 06:30 Dose: 17 units Insulin Detemir (Levemir Vial) 8 units SQ HS [facility] Last Admin: 01/31/17 21:39 Dose: 8 units Miscellaneous (Duragesic Patch Waste) 1 each TD PRN PRN Ranitidine HCl (Zantac Oral Solution -) 150 mg GT DAILY [facility] Last Admin: 01/31/17 10:38 Dose: 150 mg - Objective Vital Signs: Vital Signs Temperature 98.4 F 02/01/17 06:00 Pulse Rate 95 H 02/01/17 06:00 Respiratory Rate 18 02/01/17 06:00 Blood Pressure 142/78 02/01/17 06:00 O2 Sat by Pulse Oximetry (%) 98 01/31/17 21:00 Cardiovascular: Yes: S1, S2 Respiratory: Yes: Regular, CTA Bilaterally Gastrointestinal: Yes: Normal Bowel Sounds, Soft Labs: CBC, BMP 01/31/17 07:00 01/31/17 12:30 INR, PTT INR 0.94 (0.82-1.09) 01/26/17 16:32 Assessment/Plan - Problems (1) Fever Assessment/Plan: Microbiology 01/26/17 16:30 Urine - Urine - Catheterized Urine Culture - Final Proteus Mirabilis will adjust abx once seen by ID Code(s): R50.9 - FEVER, UNSPECIFIED (2) ARF (acute renal failure) Assessment/Plan: ivf monitor renal function- trending down from 64 to 48 Code(s): N17.9 - ACUTE KIDNEY FAILURE, UNSPECIFIED (3) Diabetes Assessment/Plan: bgm insulin adjusted seen by endocrine sliding scale hga1c Code(s): E11.9 - TYPE 2 DIABETES MELLITUS WITHOUT COMPLICATIONS Qualifiers: Diabetes mellitus type: type 2 Diabetes mellitus complication detail: with other skin ulcer (4) Hypernatremia Assessment/Plan: renal evaluation Code(s): E87.0 - HYPEROSMOLALITY AND HYPERNATREMIA (5) Pressure Ulcer Assessment/Plan: WOUND CARE SURGICAL CONSULT (6) Scalp Cyst Assessment/Plan: SURGICAL CONSULT
[2017-02-01 08:51] LABS: ALBUMIN 1.7 g/dl (3.4-5.0); ALK PHOS 130 U/L (45-117); ANION GAP 11 (8-16); BILIRUBIN,TOTAL 0.3 mg/dL (0.2-1.0); CALCIUM 7.6 mg/dL (8.5-10.1); CO2 21 mmol/L (21-32); CREATININE 0.9 mg/dL (0.55-1.02); GLUCOSE,RANDOM 262 mg/dL (74-106); MAGNESIUM 2.4 mg/dL (1.8-2.4); MCH 31.5 pg (25.7-33.7); MCHC 31.1 g/dl (32.0-36.0); MEAN CELL VOLUME 101.3 fl (80-96); MEAN PLT VOLUME 9.1 fl (7.5-11.1); PHOSPHOROUS 3.7 mg/dL (2.5-4.9); RDW 21.1 % (11.6-15.6); SGOT/AST 8 U/L (15-37); SGPT/ALT 9 U/L (12-78); TOT PROT 6.9 g/dl (6.4-8.2); WHITE BLOOD COUNT 24.4 K/mm3 (4.0-10.0)
[2017-02-01] MEDS ORDERED: PT OWN MED DRAWER 7, Y5N ONE ×4 (09:10→12:40)
--- NOTE | 2017-02-01 11:05 | PN ---
Progress Note, Physician History of Present Illness: Awake, eyes open No acute distress Breathing non-labored Remains intermittantly febrile WBC 24k - Current Medication List Current Medications: Active Medications Acetaminophen (Tylenol Oral Solution -) 650 mg PO Q6H PRN PRN Reason: FEVER OR PAIN Last Admin: 01/31/17 22:47 Dose: 650 mg Acetaminophen (Tylenol Suppository -) 650 mg [place] Q6H PRN PRN Reason: FEVER OR PAIN Ascorbic Acid (Vitamin C Oral Solution -) 500 mg GT TID [facility] Last Admin: 02/01/17 06:28 Dose: 500 mg Doxazosin Mesylate (Cardura -) 2 mg GT DAILY [facility] Last Admin: 01/31/17 10:37 Dose: 2 mg Escitalopram Oxalate (Lexapro Oral Solution -) 10 mg GT DAILY [facility] Last Admin: 01/31/17 10:38 Dose: 5 ml Fentanyl (Duragesic 12mcg Patch -) 1 patch TD Q72H [facility] Last Admin: 01/29/17 20:58 Dose: 1 patch Ferrous Sulfate (Feosol) 300 mg GT DAILY [facility] Last Admin: 01/31/17 10:37 Dose: 300 mg Heparin Sodium (Porcine) (Heparin -) 5,000 unit SQ BID [facility] Last Admin: 01/31/17 21:38 Dose: 5,000 unit Tigecycline 50 mg/ Dextrose 100 mls @ 100 mls/hr IVPB BID [facility] PRN Reason: Protocol Last Admin: 01/31/17 21:40 Dose: 100 mls/hr Dextrose/Sodium Chloride (D5-1/2ns -) 1,000 mls @ 100 mls/hr IV ASDIR [facility] Last Admin: 02/01/17 03:44 Dose: 100 mls/hr Levofloxacin (Levaquin 500 Mg Premixed Ivpb -) 100 mls @ 100 mls/hr IVPB DAILY [facility] Last Admin: 01/31/17 17:29 Dose: 100 mls/hr Insulin Aspart (Novolog Vial Sliding Scale -) 1 vial SQ ACHS [facility] PRN Reason: Protocol Last Admin: 02/01/17 06:31 Dose: 7 units Insulin Detemir (Levemir Vial) 17 units SQ AM [facility] Last Admin: 02/01/17 06:30 Dose: 17 units Insulin Detemir (Levemir Vial) 8 units SQ HS [facility] Last Admin: 01/31/17 21:39 Dose: 8 units Miscellaneous (Duragesic Patch Waste) 1 each TD PRN PRN Ranitidine HCl (Zantac Oral Solution -) 150 mg GT DAILY [facility] Last Admin: 01/31/17 10:38 Dose: 150 mg - Objective Vital Signs: Vital Signs Temperature 98.4 F 02/01/17 06:00 Pulse Rate 95 H 02/01/17 06:00 Respiratory Rate 18 02/01/17 06:00 Blood Pressure 142/78 02/01/17 06:00 O2 Sat by Pulse Oximetry (%) 98 02/01/17 09:00 Constitutional: Yes: No Distress, Cachectic Cardiovascular: Yes: Regular Rate and Rhythm, S1, S2 Respiratory: Yes: Diminished Gastrointestinal: Yes: Normal Bowel Sounds, Soft. No: Tenderness Extremities: Yes: Other (S/P bilateral BKA) Labs: CBC, BMP 02/01/17 06:30 02/01/17 06:30 INR, PTT INR 0.94 (0.82-1.09) 01/26/17 16:32 Assessment/Plan Sepsis ? source ? decubitus Fever/ leukocytosis Hx resistant pathogens Dementia Continue Tygacil / levaquin Contact precautions
[2017-02-01] MEDS: LEVOFLOXACIN 500 MG IVPB 100 ML IVPB SCH (11:14)
[2017-02-01] MEDS: HEPARIN NA (PORCINE) 5,000 UNITS/ML 1ML VIAL SQ SCH ×2 (11:15→21:50)
[2017-02-01] MEDS: FERROUS SO4 300 MG/5 ML ORAL SOLN UNIT DOSE CUPS GT SCH (11:15)
[2017-02-01] MEDS: RANITIDINE HCL 150 MG/10 ML UNIT-DOSE GT SCH (11:15)
--- NOTE | 2017-02-01 11:19 | PN ---
Progress Note (short form) - Note Progress Note: No acute distress on NC O2. Intermittent low garde temps. No acute events overnight. Intake & Output 01/30/17 01/30/17 01/31/17 02/01/17 00:59 23:59 23:59 23:59 Intake Total 2390 1860 Output Total 1400 Balance 990 1860 Weight 99 lb 8 oz 99 lb 7 oz Last Vital Signs Temp Pulse Resp BP Pulse Ox 98.4 F 95 H 18 142/78 98 02/01/17 06:00 02/01/17 06:00 02/01/17 06:00 02/01/17 06:00 02/01/17 09:00 Active Medications Acetaminophen (Tylenol Oral Solution -) 650 mg PO Q6H PRN PRN Reason: FEVER OR PAIN Last Admin: 01/31/17 22:47 Dose: 650 mg Acetaminophen (Tylenol Suppository -) 650 mg [place] Q6H PRN PRN Reason: FEVER OR PAIN Ascorbic Acid (Vitamin C Oral Solution -) 500 mg GT TID [facility] Last Admin: 02/01/17 06:28 Dose: 500 mg Doxazosin Mesylate (Cardura -) 2 mg GT DAILY [facility] Last Admin: 01/31/17 10:37 Dose: 2 mg Escitalopram Oxalate (Lexapro Oral Solution -) 10 mg GT DAILY [facility] Last Admin: 01/31/17 10:38 Dose: 5 ml Fentanyl (Duragesic 12mcg Patch -) 1 patch TD Q72H [facility] Last Admin: 01/29/17 20:58 Dose: 1 patch Ferrous Sulfate (Feosol) 300 mg GT DAILY [facility] Last Admin: 02/01/17 11:15 Dose: 300 mg Heparin Sodium (Porcine) (Heparin -) 5,000 unit SQ BID [facility] Last Admin: 02/01/17 11:15 Dose: 5,000 unit Tigecycline 50 mg/ Dextrose 100 mls @ 100 mls/hr IVPB BID [facility] PRN Reason: Protocol Last Admin: 01/31/17 21:40 Dose: 100 mls/hr Dextrose/Sodium Chloride (D5-1/2ns -) 1,000 mls @ 100 mls/hr IV ASDIR [facility] Last Admin: 02/01/17 03:44 Dose: 100 mls/hr Levofloxacin (Levaquin 500 Mg Premixed Ivpb -) 100 mls @ 100 mls/hr IVPB DAILY [facility] Last Admin: 02/01/17 11:14 Dose: 100 mls/hr Insulin Aspart (Novolog Vial Sliding Scale -) 1 vial SQ ACHS [facility] PRN Reason: Protocol Last Admin: 02/01/17 06:31 Dose: 7 units Insulin Detemir (Levemir Vial) 17 units SQ AM [facility] Last Admin: 02/01/17 06:30 Dose: 17 units Insulin Detemir (Levemir Vial) 8 units SQ HS [facility] Last Admin: 01/31/17 21:39 Dose: 8 units Miscellaneous (Duragesic Patch Waste) 1 each TD PRN PRN Ranitidine HCl (Zantac Oral Solution -) 150 mg GT DAILY [facility] Last Admin: 02/01/17 11:15 Dose: 150 mg Constitutional: Yes: NAD Eyes: Yes: Conjunctiva Clear, EOM Intact HENT: Yes: Atraumatic, Normocephalic Neck: Yes: Supple, Trachea Midline Cardiovascular: Yes: Tachycardia Respiratory: Yes: Diminished at the bases ...Clubbing: No Gastrointestinal: Yes: Normal Bowel Sounds, Soft, Other (+PEG). No: Tenderness Extremities: Yes: Amputation (bilateral BKA) Edema: No Labs: Laboratory Results - last 24 hr 01/31/17 01/31/17 01/31/17 12:01 12:03 12:30 WBC RBC Hgb Hct MCV MCH MCHC RDW MPV Neutrophils % Lymphocytes % Sodium Potassium Chloride Carbon Dioxide Anion Gap BUN Creatinine Creat Clearance w eGFR POC Glucometer 56 58 Random Glucose 42 L* D Calcium Phosphorus Magnesium Total Bilirubin AST ALT Alkaline Phosphatase Total Protein Albumin 01/31/17 01/31/17 01/31/17 15:29 17:27 21:31 WBC RBC Hgb Hct MCV MCH MCHC RDW MPV Neutrophils % Lymphocytes % Sodium Potassium Chloride Carbon Dioxide Anion Gap BUN Creatinine Creat Clearance w eGFR POC Glucometer 68 101 143 Random Glucose Calcium Phosphorus Magnesium Total Bilirubin AST ALT Alkaline Phosphatase Total Protein Albumin 02/01/17 02/01/17 02/01/17 06:25 06:30 06:30 WBC 24.4 H D RBC 2.60 L Hgb 8.2 L D Hct 26.4 L MCV 101.3 H MCH 31.5 MCHC 31.1 L RDW 21.1 H MPV 9.1 Neutrophils % No Result Required. Lymphocytes % No Result Required. Sodium 149 H Potassium 4.9 Chloride 117 H Carbon Dioxide 21 Anion Gap 11 BUN 54 H Creatinine 0.9 D Creat Clearance w eGFR > 60 POC Glucometer 317 Random Glucose 262 H D Calcium 7.6 L Phosphorus 3.7 D Magnesium 2.4 Total Bilirubin 0.3 AST 8 L D ALT 9 L Alkaline Phosphatase 130 H Total Protein 6.9 Albumin 1.7 L Problem List - Problems (1) UTI (urinary tract infection) Code(s): N39.0 - URINARY TRACT INFECTION, SITE NOT SPECIFIED Qualifiers: Urinary tract infection type: site unspecified Hematuria presence: without hematuria Qualified Code(s): N39.0 - Urinary tract infection, site not specified; N39.0 - Urinary tract infection, site not specified; R31.9 - Hematuria, unspecified; R31.9 - Hematuria, unspecified (2) Severe sepsis Code(s): A41.9 - SEPSIS, UNSPECIFIED ORGANISM R65.20 - SEVERE SEPSIS WITHOUT SEPTIC SHOCK (3) Decubitus ulcer Code(s): L89.90 - PRESSURE ULCER OF UNSPECIFIED SITE, UNSPECIFIED STAGE Qualifiers: Pressure ulcer location: sacral region Pressure ulcer stage: unspecified pressure ulcer stage Qualified Code(s): L89.159 - Pressure ulcer of sacral region, unspecified stage; L89.159 - Pressure ulcer of sacral region, unspecified stage (4) ARF (acute renal failure) Code(s): N17.9 - ACUTE KIDNEY FAILURE, UNSPECIFIED (5) Lactic acidosis Code(s): E87.2 - ACIDOSIS (6) Diabetes Code(s): E11.9 - TYPE 2 DIABETES MELLITUS WITHOUT COMPLICATIONS Qualifiers: Diabetes mellitus type: type 2 Diabetes mellitus complication detail: with other skin ulcer (7) HTN (hypertension) Code(s): I10 - ESSENTIAL (PRIMARY) HYPERTENSION Qualifiers: Hypertension type: essential hypertension Qualified Code(s): I10 - Essential (primary) hypertension; I10 - Essential (primary) hypertension; I10 - Essential (primary) hypertension Assessment/Plan UTI Severe Sepsis Lactic Acidosis Acute Kidney Injury B/L BKA HTN DM Advanced Dementia ABX per ID Monitor urine output, creatinine O2 to keep Spo2 >90% VTE prophylaxis DNR/DNI Dr Galeana
[2017-02-01] MEDS: ACETAMINOPHEN 650 MG/20.3 ML ORAL SOLUTION (CUPS) PO PRN (11:41)
[2017-02-01] MEDS: DOXAZOSIN MESYLATE 2 MG TABLET (FP) GT SCH (11:47)
[2017-02-01] MEDS: ESCITALOPRAM OXALATE 5 MG/5 ML GT SCH (11:47)
[2017-02-01] MEDS: TIGECYCLINE 50 MG in DEXTROSE 5%-WATER - 100 ML IVPB SCH ×2 (12:34→21:51)
[2017-02-01 13:15] LABS: PLATELET COMMENT2 NO CLOTTING DETECTED; PLATELET COUNT 261 K/MM3 (134-434); PLATELET ESTIMATE ADEQUATE (NORMAL); TOTAL CELLS COUNTED 100
[2017-02-01 13:16] LABS: ANISOCYTOSIS 2+; MACROCYTOSIS 1+
--- NOTE | 2017-02-01 16:53 | PN ---
Progress Note (short form) - Note Progress Note: Renal follow up for Hypernatremia Pt seen and examined at the bedside awake not able to provide history febrile overnight Vital Signs Temperature 98.6 F 02/01/17 15:14 Pulse Rate 84 02/01/17 15:14 Respiratory Rate 16 02/01/17 15:14 Blood Pressure 111/62 02/01/17 15:14 O2 Sat by Pulse Oximetry (%) 98 02/01/17 09:00 Intake & Output 01/30/17 01/30/17 01/31/17 02/01/17 00:59 23:59 23:59 23:59 Intake Total 2390 3065 Output Total 1400 300 Balance 990 2765 Weight 99 lb 8 oz 99 lb 7 oz NAD awake RRR CTA (anterior exam) soft NT/ND No LE edema CBC, BMP 02/01/17 06:30 02/01/17 06:30 Current Medications Acetaminophen (Tylenol Oral Solution -) 650 mg PO Q6H PRN PRN Reason: FEVER OR PAIN Last Admin: 02/01/17 11:41 Dose: 650 mg Acetaminophen (Tylenol Suppository -) 650 mg [place] Q6H PRN PRN Reason: FEVER OR PAIN Ascorbic Acid (Vitamin C Oral Solution -) 500 mg GT TID [facility] Last Admin: 02/01/17 14:12 Dose: 500 mg Doxazosin Mesylate (Cardura -) 2 mg GT DAILY [facility] Last Admin: 02/01/17 11:47 Dose: 2 mg Escitalopram Oxalate (Lexapro Oral Solution -) 10 mg GT DAILY [facility] Last Admin: 02/01/17 11:47 Dose: 10 ml Fentanyl (Duragesic 12mcg Patch -) 1 patch TD Q72H [facility] Last Admin: 01/29/17 20:58 Dose: 1 patch Ferrous Sulfate (Feosol) 300 mg GT DAILY [facility] Last Admin: 02/01/17 11:15 Dose: 300 mg Heparin Sodium (Porcine) (Heparin -) 5,000 unit SQ BID [facility] Last Admin: 02/01/17 11:15 Dose: 5,000 unit Tigecycline 50 mg/ Dextrose 100 mls @ 100 mls/hr IVPB BID [facility] PRN Reason: Protocol Last Admin: 02/01/17 12:34 Dose: 100 mls/hr Dextrose/Sodium Chloride (D5-1/2ns -) 1,000 mls @ 100 mls/hr IV ASDIR [facility] Last Admin: 02/01/17 03:44 Dose: 100 mls/hr Levofloxacin (Levaquin 500 Mg Premixed Ivpb -) 100 mls @ 100 mls/hr IVPB DAILY [facility] Last Admin: 02/01/17 11:14 Dose: 100 mls/hr Insulin Aspart (Novolog Vial Sliding Scale -) 1 vial SQ ACHS [facility] PRN Reason: Protocol Last Admin: 02/01/17 12:27 Dose: Not Given Insulin Detemir (Levemir Vial) 17 units SQ AM [facility] Last Admin: 02/01/17 06:30 Dose: 17 units Insulin Detemir (Levemir Vial) 8 units SQ HS [facility] Last Admin: 01/31/17 21:39 Dose: 8 units Miscellaneous (Duragesic Patch Waste) 1 each TD PRN PRN Nystatin (Nystop Powder -) 1 applic TP BID [facility] Ranitidine HCl (Zantac Oral Solution -) 150 mg GT DAILY [facility] Last Admin: 02/01/17 11:15 Dose: 150 mg 81 year old woman with PMhx of CVA, dementia, non-verbal, b/l BKA, HTN, IDDM, HLD, thyroid disease, anemia presented to ER from [facility] for fever. Pt known to our service from prior admissions for hypernatrema and GIANNI. #Hypernatremia with Azotemia in setting of Fever/Poor oral intake serum Na improving with IVF continue same fluids for now trend BUN/cr and Na levels #Anemia of chronic disease iron studies pending #UTI/Sacral decubitis/Sepsis Abx as per ID supportive care Thank you will follow Vahid Manzano DO
[2017-02-01] MEDS: fentaNYL 12mcg/hr PATCH.TD72 TD SCH (20:30)
[2017-02-01] MEDS: NYSTATIN POWDER 100,000 UNITS/GM - 15 GM TOPICAL POWDER TP SCH (22:00)
--- NOTE | 2017-02-02 08:42 | PN ---
Progress Note, Physician History of Present Illness: PEG REINSERTED - Current Medication List Current Medications: Active Medications Acetaminophen (Tylenol Oral Solution -) 650 mg PO Q6H PRN PRN Reason: FEVER OR PAIN Last Admin: 02/01/17 11:41 Dose: 650 mg Acetaminophen (Tylenol Suppository -) 650 mg [place] Q6H PRN PRN Reason: FEVER OR PAIN Ascorbic Acid (Vitamin C Oral Solution -) 500 mg GT TID [facility] Last Admin: 02/01/17 21:52 Dose: 500 mg Doxazosin Mesylate (Cardura -) 2 mg GT DAILY [facility] Last Admin: 02/01/17 11:47 Dose: 2 mg Escitalopram Oxalate (Lexapro Oral Solution -) 10 mg GT DAILY [facility] Last Admin: 02/01/17 11:47 Dose: 10 ml Fentanyl (Duragesic 12mcg Patch -) 1 patch TD Q72H [facility] Last Admin: 02/01/17 20:30 Dose: 1 patch Ferrous Sulfate (Feosol) 300 mg GT DAILY [facility] Last Admin: 02/01/17 11:15 Dose: 300 mg Heparin Sodium (Porcine) (Heparin -) 5,000 unit SQ BID [facility] Last Admin: 02/01/17 21:50 Dose: 5,000 unit Tigecycline 50 mg/ Dextrose 100 mls @ 100 mls/hr IVPB BID [facility] PRN Reason: Protocol Last Admin: 02/01/17 21:51 Dose: 100 mls/hr Dextrose/Sodium Chloride (D5-1/2ns -) 1,000 mls @ 100 mls/hr IV ASDIR [facility] Last Admin: 02/01/17 17:56 Dose: 100 mls/hr Levofloxacin (Levaquin 500 Mg Premixed Ivpb -) 100 mls @ 100 mls/hr IVPB DAILY [facility] Last Admin: 02/01/17 11:14 Dose: 100 mls/hr Insulin Aspart (Novolog Vial Sliding Scale -) 1 vial SQ ACHS [facility] PRN Reason: Protocol Last Admin: 02/01/17 21:51 Dose: Not Given Insulin Detemir (Levemir Vial) 15 units SQ AM [facility] Insulin Detemir (Levemir Vial) 5 units SQ HS [facility] Miscellaneous (Duragesic Patch Waste) 1 each TD PRN PRN Nystatin (Nystop Powder -) 1 applic TP BID [facility] Last Admin: 02/01/17 22:00 Dose: 1 applic Ranitidine HCl (Zantac Oral Solution -) 150 mg GT DAILY [facility] Last Admin: 02/01/17 11:15 Dose: 150 mg - Objective Vital Signs: Vital Signs Temperature 100.1 F H 02/02/17 02:23 Pulse Rate 100 H 02/02/17 02:23 Respiratory Rate 20 02/02/17 02:23 Blood Pressure 113/66 02/02/17 02:23 O2 Sat by Pulse Oximetry (%) 98 02/01/17 21:00 Cardiovascular: Yes: S1, S2 Respiratory: Yes: Regular, CTA Bilaterally Gastrointestinal: Yes: Normal Bowel Sounds, Soft Labs: INR, PTT INR 0.94 (0.82-1.09) 01/26/17 16:32 Assessment/Plan - Problems (1) Fever Assessment/Plan: Microbiology 01/26/17 16:30 Urine - Urine - Catheterized Urine Culture - Final Proteus Mirabilis Laboratory Tests 01/29/17 01/31/17 02/01/17 07:00 07:00 06:30 WBC 15.5 H 11.3 H 24.4 H D will adjust abx once seen by ID Code(s): R50.9 - FEVER, UNSPECIFIED (2) ARF (acute renal failure) Assessment/Plan: ivf monitor renal function- trending down from 64 to 48 Code(s): N17.9 - ACUTE KIDNEY FAILURE, UNSPECIFIED (3) Diabetes Assessment/Plan: bgm insulin adjusted seen by endocrine sliding scale hga1c Code(s): E11.9 - TYPE 2 DIABETES MELLITUS WITHOUT COMPLICATIONS Qualifiers: Diabetes mellitus type: type 2 Diabetes mellitus complication detail: with other skin ulcer (4) Hypernatremia Assessment/Plan: renal evaluation Code(s): E87.0 - HYPEROSMOLALITY AND HYPERNATREMIA (5) Pressure Ulcer Assessment/Plan: WOUND CARE SURGICAL CONSULT (6) Scalp Cyst Assessment/Plan: SURGICAL CONSULT
[2017-02-02 08:53] LABS: ANION GAP 7 (8-16); CALCIUM 7.6 mg/dL (8.5-10.1); CO2 22 mmol/L (21-32); GLUCOSE,RANDOM 198 mg/dL (74-106)
[2017-02-02 08:58] LABS: CREATININE 0.8 mg/dL (0.55-1.02)
[2017-02-02 09:00] LABS: FERRITIN 1672.519 ng/ml (6.9-282.5)
[2017-02-02 09:43] LABS: BASOPHIL 0.6 % (0-2.0); EOSINOPHIL 0.4 % (0-4.5); MCH 31.1 pg (25.7-33.7); MCHC 31.3 g/dl (32.0-36.0); MEAN CELL VOLUME 99.5 fl (80-96); MEAN PLT VOLUME 9.1 fl (7.5-11.1); NEUTROPHILS 81.5 % (42.8-82.8); PLATELET COUNT 271 K/MM3 (134-434); RDW 20.2 % (11.6-15.6); WHITE BLOOD COUNT 15.4 K/mm3 (4.0-10.0)
[2017-02-02] MEDS ORDERED: PT OWN MED DRAWER 7, Y5N ONE ×3 (10:54→15:28)
[2017-02-02] MEDS: ACETAMINOPHEN 650 MG/20.3 ML ORAL SOLUTION (CUPS) PO PRN (11:08)
[2017-02-02] MEDS: LEVOFLOXACIN 500 MG IVPB 100 ML IVPB SCH (11:10)
[2017-02-02] MEDS: DOXAZOSIN MESYLATE 2 MG TABLET (FP) GT SCH (11:10)
[2017-02-02] MEDS: FERROUS SO4 300 MG/5 ML ORAL SOLN UNIT DOSE CUPS GT SCH (11:10)
[2017-02-02] MEDS: HEPARIN NA (PORCINE) 5,000 UNITS/ML 1ML VIAL SQ SCH ×2 (11:11→21:42)
[2017-02-02] MEDS: ESCITALOPRAM OXALATE 5 MG/5 ML GT SCH (11:11)
[2017-02-02] MEDS: RANITIDINE HCL 150 MG/10 ML UNIT-DOSE GT SCH (11:12)
[2017-02-02] MEDS: NYSTATIN POWDER 100,000 UNITS/GM - 15 GM TOPICAL POWDER TP SCH ×2 (11:12→21:45)
[2017-02-02] MEDS ORDERED: INSULIN (NOVOLOG) ASPART 100 UNITS/ML 10ML VIAL ONE ×2 (11:42→16:07)
[2017-02-02] MEDS: INSULIN SLIDING SCALE (NOVOLOG) 1 VIAL SQ SCH ×4 (12:53→21:43)
[2017-02-02] MEDS: ASCORBIC ACID 500 MG/5 ML UNIT DOSE CUP GT SCH ×3 (12:53→21:42)
[2017-02-02] MEDS: INSULIN DETEMIR 100 UNITS/ML MDV SQ SCH ×2 (12:53→21:43)
[2017-02-02] MEDS: TIGECYCLINE 50 MG in DEXTROSE 5%-WATER - 100 ML IVPB SCH ×2 (13:29→21:41)
--- NOTE | 2017-02-02 14:29 | PN ---
Progress Note (short form) - Note Progress Note: PULMONARY LOW GRADE TEMP AROUSABLE PALE/ANICTERIC DIMINISHED BREATH SOUNDS BASES DIFFUSE PRECORDIAL SYSTOLIC MURMUR BS+ SOFT B/L BKA LABS/MEDS/NOTES/IMAGING/MICRO NOTED URINE : PROTEUS CXR ELEVATED RIGHT ANGELIKA/NO PNEUMONIA UTI Severe Sepsis Lactic Acidosis Acute Kidney Injury B/L BKA HTN DM Advanced Dementia ABX per ID Monitor urine output, creatinine O2 to keep Spo2 >90% VTE prophylaxis DNR/DNI R KEVON VERMA
[2017-02-02] MEDS: DEXTROSE 5%-0.45% SALINE 1,000 ML IV SCH (17:27)
--- NOTE | 2017-02-02 18:31 | PN ---
Progress Note (short form) - Note Progress Note: Renal follow up for Hypernatremia Pt seen and examined at the bedside pt very lethargic but arouseable no distress no overnight events Vital Signs Temperature 99.2 F 02/02/17 14:20 Pulse Rate 80 02/02/17 14:20 Respiratory Rate 18 02/02/17 14:20 Blood Pressure 120/62 02/02/17 14:20 O2 Sat by Pulse Oximetry (%) 98 02/01/17 21:00 Intake & Output 01/30/17 01/31/17 02/01/17 02/02/17 23:59 23:59 23:59 23:59 Intake Total 2390 4790 410 Output Total 1400 500 600 Balance 990 4290 -190 Weight 99 lb 8 oz 99 lb 7 oz NAD awake RRR CTA (anterior exam) soft NT/ND No LE edema CBC, BMP 02/02/17 09:22 02/02/17 06:35 Current Medications Acetaminophen (Tylenol Oral Solution -) 650 mg PO Q6H PRN PRN Reason: FEVER OR PAIN Last Admin: 02/02/17 11:08 Dose: 650 mg Acetaminophen (Tylenol Suppository -) 650 mg [place] Q6H PRN PRN Reason: FEVER OR PAIN Ascorbic Acid (Vitamin C Oral Solution -) 500 mg GT TID [facility] Last Admin: 02/02/17 15:00 Dose: 500 mg Doxazosin Mesylate (Cardura -) 2 mg GT DAILY [facility] Last Admin: 02/02/17 11:10 Dose: 2 mg Escitalopram Oxalate (Lexapro Oral Solution -) 10 mg GT DAILY [facility] Last Admin: 02/02/17 11:11 Dose: 10 ml Fentanyl (Duragesic 12mcg Patch -) 1 patch TD Q72H [facility] Last Admin: 02/01/17 20:30 Dose: 1 patch Ferrous Sulfate (Feosol) 300 mg GT DAILY [facility] Last Admin: 02/02/17 11:10 Dose: 300 mg Heparin Sodium (Porcine) (Heparin -) 5,000 unit SQ BID [facility] Last Admin: 02/02/17 11:11 Dose: 5,000 unit Tigecycline 50 mg/ Dextrose 100 mls @ 100 mls/hr IVPB BID [facility] PRN Reason: Protocol Last Admin: 02/02/17 13:29 Dose: 100 mls/hr Levofloxacin (Levaquin 500 Mg Premixed Ivpb -) 100 mls @ 100 mls/hr IVPB DAILY [facility] Last Admin: 02/02/17 11:10 Dose: 100 mls/hr Insulin Aspart (Novolog Vial Sliding Scale -) 1 vial SQ ACHS [facility] PRN Reason: Protocol Last Admin: 02/02/17 17:27 Dose: 5 units Insulin Detemir (Levemir Vial) 15 units SQ AM [facility] Last Admin: 02/02/17 12:53 Dose: Not Given Insulin Detemir (Levemir Vial) 5 units SQ HS [facility] Miscellaneous (Duragesic Patch Waste) 1 each TD PRN PRN Nystatin (Nystop Powder -) 1 applic TP BID [facility] Last Admin: 02/02/17 11:12 Dose: 1 applic Ranitidine HCl (Zantac Oral Solution -) 150 mg GT DAILY [facility] Last Admin: 02/02/17 11:12 Dose: 150 mg 81 year old woman with PMhx of CVA, dementia, non-verbal, b/l BKA, HTN, IDDM, HLD, thyroid disease, anemia presented to ER from [facility] for fever. Pt known to our service from prior admissions for hypernatrema and GIANNI. #Hypernatremia with Azotemia in setting of Fever/Poor oral intake serum Na now improved to normal BUN remains slightly high d/c IVF continue free water with tube feeds #Mild Hyperkalemia change tube feeds to low K #Anemia of chronic disease iron studies pending #UTI/Sacral decubitis/Sepsis Abx as per ID supportive care Thank you will follow Vahid Manzano DO
--- NOTE | 2017-02-02 18:52 | PN ---
Progress Note, Physician History of Present Illness: Awake, eyes open Non verbal No acute distress Breathing non-labored Temps down - Current Medication List Current Medications: Active Medications Acetaminophen (Tylenol Oral Solution -) 650 mg PO Q6H PRN PRN Reason: FEVER OR PAIN Last Admin: 02/02/17 11:08 Dose: 650 mg Acetaminophen (Tylenol Suppository -) 650 mg [place] Q6H PRN PRN Reason: FEVER OR PAIN Ascorbic Acid (Vitamin C Oral Solution -) 500 mg GT TID [facility] Last Admin: 02/02/17 15:00 Dose: 500 mg Doxazosin Mesylate (Cardura -) 2 mg GT DAILY [facility] Last Admin: 02/02/17 11:10 Dose: 2 mg Escitalopram Oxalate (Lexapro Oral Solution -) 10 mg GT DAILY [facility] Last Admin: 02/02/17 11:11 Dose: 10 ml Fentanyl (Duragesic 12mcg Patch -) 1 patch TD Q72H [facility] Last Admin: 02/01/17 20:30 Dose: 1 patch Ferrous Sulfate (Feosol) 300 mg GT DAILY [facility] Last Admin: 02/02/17 11:10 Dose: 300 mg Heparin Sodium (Porcine) (Heparin -) 5,000 unit SQ BID [facility] Last Admin: 02/02/17 11:11 Dose: 5,000 unit Tigecycline 50 mg/ Dextrose 100 mls @ 100 mls/hr IVPB BID [facility] PRN Reason: Protocol Last Admin: 02/02/17 13:29 Dose: 100 mls/hr Levofloxacin (Levaquin 500 Mg Premixed Ivpb -) 100 mls @ 100 mls/hr IVPB DAILY [facility] Last Admin: 02/02/17 11:10 Dose: 100 mls/hr Insulin Aspart (Novolog Vial Sliding Scale -) 1 vial SQ ACHS [facility] PRN Reason: Protocol Last Admin: 02/02/17 17:27 Dose: 5 units Insulin Detemir (Levemir Vial) 15 units SQ AM [facility] Last Admin: 02/02/17 12:53 Dose: Not Given Insulin Detemir (Levemir Vial) 5 units SQ HS [facility] Miscellaneous (Duragesic Patch Waste) 1 each TD PRN PRN Nystatin (Nystop Powder -) 1 applic TP BID [facility] Last Admin: 02/02/17 11:12 Dose: 1 applic Ranitidine HCl (Zantac Oral Solution -) 150 mg GT DAILY [facility] Last Admin: 02/02/17 11:12 Dose: 150 mg - Objective Vital Signs: Vital Signs Temperature 99.2 F 02/02/17 14:20 Pulse Rate 80 02/02/17 14:20 Respiratory Rate 18 02/02/17 14:20 Blood Pressure 120/62 02/02/17 14:20 O2 Sat by Pulse Oximetry (%) 98 02/01/17 21:00 Constitutional: Yes: No Distress Eyes: Yes: Conjunctiva Clear Cardiovascular: Yes: Regular Rate and Rhythm, S1, S2 Respiratory: Yes: Diminished Gastrointestinal: Yes: Normal Bowel Sounds, Soft. No: Tenderness Extremities: Yes: Other (S/P B/L BKA) Labs: CBC, BMP 02/02/17 09:22 02/02/17 06:35 INR, PTT INR 0.94 (0.82-1.09) 01/26/17 16:32 Assessment/Plan Sepsis ? source ? decubitus Fever/ leukocytosis Hx resistant pathogens Dementia Continue Tygacil / levaquin Contact precautions
[2017-02-03 06:10] LABS: SERUM IRON 111 ug/dL (27-139); TOTAL IRON BINDING CAPACITY < 128 ug/dL (250-450); UIBC < 17 ug/dL (118-369)
[2017-02-03] MEDS: ASCORBIC ACID 500 MG/5 ML UNIT DOSE CUP GT SCH ×3 (06:20→22:07)
[2017-02-03] MEDS: INSULIN DETEMIR 100 UNITS/ML MDV SQ SCH ×2 (06:20→22:09)
[2017-02-03] MEDS: ACETAMINOPHEN 650 MG/20.3 ML ORAL SOLUTION (CUPS) PO PRN (06:23)
[2017-02-03] MEDS: INSULIN SLIDING SCALE (NOVOLOG) 1 VIAL SQ SCH ×4 (06:23→22:10)
[2017-02-03 08:37] LABS: BASOPHIL 0.2 % (0-2.0); EOSINOPHIL 0.3 % (0-4.5); MCH 31.8 pg (25.7-33.7); MEAN CELL VOLUME 99.3 fl (80-96); MEAN PLT VOLUME 9.2 fl (7.5-11.1); NEUTROPHILS 74.1 % (42.8-82.8); PLATELET COUNT 270 K/MM3 (134-434); RDW 20.1 % (11.6-15.6); WHITE BLOOD COUNT 14.3 K/mm3 (4.0-10.0)
[2017-02-03 09:17] LABS: ANION GAP 9 (8-16); CALCIUM 7.5 mg/dL (8.5-10.1); CO2 20 mmol/L (21-32); CREATININE 0.8 mg/dL (0.55-1.02); GLUCOSE,RANDOM 203 mg/dL (74-106); MAGNESIUM 2.3 mg/dL (1.8-2.4); PHOSPHOROUS 2.8 mg/dL (2.5-4.9)
--- NOTE | 2017-02-03 10:51 | PN ---
Progress Note (short form) - Note Progress Note: Lethargic on NC O2. Intermittent fever / low garde temps. No acute events overnight. No noted clinical improvement. Intake & Output 01/31/17 02/01/17 02/02/17 02/03/17 23:59 23:59 23:59 23:59 Intake Total 2390 4790 820 830 Output Total 1773 669 8156 350 Balance 990 4290 -1580 480 Weight 99 lb 8 oz 99 lb 7 oz 99 lb 6 oz Last Vital Signs Temp Pulse Resp BP Pulse Ox 100.3 F H 72 18 120/50 99 02/03/17 09:20 02/03/17 10:11 02/03/17 09:20 02/03/17 09:20 02/03/17 10:11 Active Medications Acetaminophen (Tylenol Oral Solution -) 650 mg PO Q6H PRN PRN Reason: FEVER OR PAIN Last Admin: 02/03/17 06:23 Dose: 650 mg Acetaminophen (Tylenol Suppository -) 650 mg [place] Q6H PRN PRN Reason: FEVER OR PAIN Ascorbic Acid (Vitamin C Oral Solution -) 500 mg GT TID [facility] Last Admin: 02/03/17 06:20 Dose: 500 mg Doxazosin Mesylate (Cardura -) 2 mg GT DAILY [facility] Last Admin: 02/02/17 11:10 Dose: 2 mg Escitalopram Oxalate (Lexapro Oral Solution -) 10 mg GT DAILY [facility] Last Admin: 02/02/17 11:11 Dose: 10 ml Ferrous Sulfate (Feosol) 300 mg GT DAILY [facility] Last Admin: 02/02/17 11:10 Dose: 300 mg Tigecycline 50 mg/ Dextrose 100 mls @ 100 mls/hr IVPB BID [facility] PRN Reason: Protocol Last Admin: 02/02/17 21:41 Dose: 100 mls/hr Levofloxacin (Levaquin 500 Mg Premixed Ivpb -) 100 mls @ 100 mls/hr IVPB DAILY [facility] Last Admin: 02/02/17 11:10 Dose: 100 mls/hr Insulin Aspart (Novolog Vial Sliding Scale -) 1 vial SQ ACHS [facility] PRN Reason: Protocol Last Admin: 02/03/17 06:23 Dose: Not Given Insulin Detemir (Levemir Vial) 15 units SQ AM [facility] Last Admin: 02/03/17 06:20 Dose: 15 units Insulin Detemir (Levemir Vial) 5 units SQ HS [facility] Last Admin: 02/02/17 21:43 Dose: 5 units Miscellaneous (Duragesic Patch Waste) 1 each TD PRN PRN Nystatin (Nystop Powder -) 1 applic TP BID [facility] Last Admin: 02/02/17 21:45 Dose: 1 applic Ranitidine HCl (Zantac Oral Solution -) 150 mg GT DAILY [facility] Last Admin: 02/02/17 11:12 Dose: 150 mg Constitutional: Yes: Lethargic Eyes: Yes: Conjunctiva Clear, EOM Intact HENT: Yes: Atraumatic, Normocephalic Neck: Yes: Supple, Trachea Midline Cardiovascular: Yes: S1S2 Respiratory: Yes: Diminished at the bases, few scattered rhonchi ...Clubbing: No Gastrointestinal: Yes: Normal Bowel Sounds, Soft, Other (+PEG). No: Tenderness Extremities: Yes: Amputation (bilateral BKA) Edema: No Labs: Laboratory Results - last 24 hr 01/26/17 02/02/17 02/02/17 19:08 06:35 11:22 WBC RBC Hgb Hct MCV MCH MCHC RDW Plt Count MPV Neutrophils % Lymphocytes % Monocytes % Eosinophils % Basophils % Sodium Potassium Chloride Carbon Dioxide Anion Gap BUN Creatinine POC Glucometer > 400 232 Random Glucose Calcium Phosphorus Magnesium Iron 111 TIBC < 128 L Iron Saturation > 87 H 02/02/17 02/02/17 02/03/17 17:25 21:22 02:00 WBC RBC Hgb Hct MCV MCH MCHC RDW Plt Count MPV Neutrophils % Lymphocytes % Monocytes % Eosinophils % Basophils % Sodium Potassium Chloride Carbon Dioxide Anion Gap BUN Creatinine POC Glucometer 257 218 202 Random Glucose Calcium Phosphorus Magnesium Iron TIBC Iron Saturation 02/03/17 02/03/17 02/03/17 06:22 07:30 07:30 WBC 14.3 H RBC 2.68 L Hgb 8.5 L Hct 26.6 L MCV 99.3 H MCH 31.8 MCHC 32.0 RDW 20.1 H Plt Count 270 MPV 9.2 Neutrophils % 74.1 Lymphocytes % 20.1 D Monocytes % 5.3 Eosinophils % 0.3 Basophils % 0.2 Sodium 143 Potassium 4.5 Chloride 114 H Carbon Dioxide 20 L Anion Gap 9 BUN 49 H Creatinine 0.8 POC Glucometer 181 Random Glucose 203 H Calcium 7.5 L Phosphorus 2.8 D Magnesium 2.3 Iron TIBC Iron Saturation Problem List - Problems (1) UTI (urinary tract infection) Code(s): N39.0 - URINARY TRACT INFECTION, SITE NOT SPECIFIED Qualifiers: Urinary tract infection type: site unspecified Hematuria presence: without hematuria Qualified Code(s): N39.0 - Urinary tract infection, site not specified; N39.0 - Urinary tract infection, site not specified; R31.9 - Hematuria, unspecified; R31.9 - Hematuria, unspecified (2) Severe sepsis Code(s): A41.9 - SEPSIS, UNSPECIFIED ORGANISM R65.20 - SEVERE SEPSIS WITHOUT SEPTIC SHOCK (3) Decubitus ulcer Code(s): L89.90 - PRESSURE ULCER OF UNSPECIFIED SITE, UNSPECIFIED STAGE Qualifiers: Pressure ulcer location: sacral region Pressure ulcer stage: unspecified pressure ulcer stage Qualified Code(s): L89.159 - Pressure ulcer of sacral region, unspecified stage; L89.159 - Pressure ulcer of sacral region, unspecified stage (4) ARF (acute renal failure) Code(s): N17.9 - ACUTE KIDNEY FAILURE, UNSPECIFIED (5) Lactic acidosis Code(s): E87.2 - ACIDOSIS (6) Diabetes Code(s): E11.9 - TYPE 2 DIABETES MELLITUS WITHOUT COMPLICATIONS Qualifiers: Diabetes mellitus type: type 2 Diabetes mellitus complication detail: with other skin ulcer (7) HTN (hypertension) Code(s): I10 - ESSENTIAL (PRIMARY) HYPERTENSION Qualifiers: Hypertension type: essential hypertension Qualified Code(s): I10 - Essential (primary) hypertension; I10 - Essential (primary) hypertension; I10 - Essential (primary) hypertension Assessment/Plan UTI Severe Sepsis Lactic Acidosis Acute Kidney Injury B/L BKA HTN DM Advanced Dementia ABX per ID Monitor urine output, creatinine O2 to keep Spo2 >90% VTE prophylaxis DNR/DNI Dr Galeana
[2017-02-03] MEDS ORDERED: PT OWN MED DRAWER 7, Y5N ONE ×5 (11:14→22:03)
[2017-02-03] MEDS: ESCITALOPRAM OXALATE 5 MG/5 ML GT SCH (11:28)
[2017-02-03] MEDS: RANITIDINE HCL 150 MG/10 ML UNIT-DOSE GT SCH (11:28)
[2017-02-03] MEDS: NYSTATIN POWDER 100,000 UNITS/GM - 15 GM TOPICAL POWDER TP SCH ×2 (11:28→22:10)
[2017-02-03] MEDS: TIGECYCLINE 50 MG in DEXTROSE 5%-WATER - 100 ML IVPB SCH ×2 (11:28→22:07)
[2017-02-03] MEDS: LEVOFLOXACIN 500 MG IVPB 100 ML IVPB SCH (11:28)
[2017-02-03] MEDS: FERROUS SO4 300 MG/5 ML ORAL SOLN UNIT DOSE CUPS GT SCH (11:28)
[2017-02-03] MEDS: DOXAZOSIN MESYLATE 2 MG TABLET (FP) GT SCH (11:29)
--- NOTE | 2017-02-03 12:14 | PN ---
Progress Note, Physician Chief Complaint: patient in bed no distress temp 102.5 earlier today sleeping in bed - Current Medication List Current Medications: Active Medications Acetaminophen (Tylenol Oral Solution -) 650 mg PO Q6H PRN PRN Reason: FEVER OR PAIN Last Admin: 02/03/17 06:23 Dose: 650 mg Acetaminophen (Tylenol Suppository -) 650 mg [place] Q6H PRN PRN Reason: FEVER OR PAIN Ascorbic Acid (Vitamin C Oral Solution -) 500 mg GT TID [facility] Last Admin: 02/03/17 06:20 Dose: 500 mg Doxazosin Mesylate (Cardura -) 2 mg GT DAILY [facility] Last Admin: 02/03/17 11:29 Dose: 2 mg Escitalopram Oxalate (Lexapro Oral Solution -) 10 mg GT DAILY [facility] Last Admin: 02/03/17 11:28 Dose: 10 ml Ferrous Sulfate (Feosol) 300 mg GT DAILY [facility] Last Admin: 02/03/17 11:28 Dose: 300 mg Tigecycline 50 mg/ Dextrose 100 mls @ 100 mls/hr IVPB BID [facility] PRN Reason: Protocol Last Admin: 02/03/17 11:28 Dose: 100 mls/hr Levofloxacin (Levaquin 500 Mg Premixed Ivpb -) 100 mls @ 100 mls/hr IVPB DAILY [facility] Last Admin: 02/03/17 11:28 Dose: 100 mls/hr Insulin Aspart (Novolog Vial Sliding Scale -) 1 vial SQ ACHS [facility] PRN Reason: Protocol Last Admin: 02/03/17 06:23 Dose: Not Given Insulin Detemir (Levemir Vial) 15 units SQ AM [facility] Last Admin: 02/03/17 06:20 Dose: 15 units Insulin Detemir (Levemir Vial) 5 units SQ HS [facility] Last Admin: 02/02/17 21:43 Dose: 5 units Miscellaneous (Duragesic Patch Waste) 1 each TD PRN PRN Nystatin (Nystop Powder -) 1 applic TP BID [facility] Last Admin: 02/03/17 11:28 Dose: 1 applic Ranitidine HCl (Zantac Oral Solution -) 150 mg GT DAILY [facility] Last Admin: 02/03/17 11:28 Dose: 150 mg - Objective Vital Signs: Vital Signs Temperature 100.3 F H 02/03/17 09:20 Pulse Rate 72 02/03/17 10:11 Respiratory Rate 18 02/03/17 09:20 Blood Pressure 120/50 02/03/17 09:20 O2 Sat by Pulse Oximetry (%) 99 02/03/17 10:11 Constitutional: Yes: Calm, Thin Cardiovascular: Yes: Murmur, S1, S2 Respiratory: Yes: Diminished, Wheezes Gastrointestinal: Yes: Normal Bowel Sounds, Soft, Other ( g tube) Genitourinary: Yes: [place] Present Extremities: Yes: Other (b/l BKA) Edema: No Neurological: Yes: Other (non verbal) Labs: CBC, BMP 02/03/17 07:30 02/03/17 07:30 INR, PTT INR 0.94 (0.82-1.09) 01/26/17 16:32 Problem List - Problems (1) Diabetes Assessment/Plan: bgm better insulin adjusted seen by endocrine sliding scale hga1c 9.6 Code(s): E11.9 - TYPE 2 DIABETES MELLITUS WITHOUT COMPLICATIONS Qualifiers: Diabetes mellitus type: type 2 Diabetes mellitus complication detail: with other skin ulcer (2) ARF (acute renal failure) Assessment/Plan: improved ivf held Code(s): N17.9 - ACUTE KIDNEY FAILURE, UNSPECIFIED (3) Fever Assessment/Plan: Microbiology 01/26/17 16:30 Urine - Urine - Catheterized Urine Culture - Final Proteus Mirabilis will adjust abx once seen by ID levaquin and tigacil lactic acidosis improved Code(s): R50.9 - FEVER, UNSPECIFIED (4) Hypernatremia Assessment/Plan: improved renal on board Code(s): E87.0 - HYPEROSMOLALITY AND HYPERNATREMIA (5) Anemia Assessment/Plan: iron panel noted anemia of chronic disease Code(s): D64.9 - ANEMIA, UNSPECIFIED Qualifiers: Anemia type: iron deficiency Iron deficiency anemia type: unspecified iron deficiency Qualified Code(s): D50.9 - Iron deficiency anemia, unspecified Assessment/Plan iv abx per ID DNR/DNI
--- NOTE | 2017-02-03 15:33 | PN ---
Progress Note (short form) - Note Progress Note: Renal follow up for Hypernatremia Pt seen and examined at the bedside having diarrhea, + fever no sob, chest pain, abd pain, N/V/D Vital Signs Temperature 100.3 F H 02/03/17 09:20 Pulse Rate 72 02/03/17 10:11 Respiratory Rate 18 02/03/17 09:20 Blood Pressure 120/50 02/03/17 09:20 O2 Sat by Pulse Oximetry (%) 99 02/03/17 10:11 Intake & Output 01/31/17 02/01/17 02/02/17 02/03/17 23:59 23:59 23:59 23:59 Intake Total 2390 4790 820 830 Output Total 1860 141 9664 650 Balance 990 4290 -1580 180 Weight 99 lb 8 oz 99 lb 7 oz 99 lb 6 oz NAD awake RRR CTA (anterior exam) soft NT/ND No LE edema CBC, BMP 02/03/17 07:30 02/03/17 07:30 Current Medications Acetaminophen (Tylenol Oral Solution -) 650 mg PO Q6H PRN PRN Reason: FEVER OR PAIN Last Admin: 02/03/17 06:23 Dose: 650 mg Acetaminophen (Tylenol Suppository -) 650 mg SD Q6H PRN PRN Reason: FEVER OR PAIN Ascorbic Acid (Vitamin C Oral Solution -) 500 mg GT TID [facility] Last Admin: 02/03/17 06:20 Dose: 500 mg Doxazosin Mesylate (Cardura -) 2 mg GT DAILY [facility] Last Admin: 02/03/17 11:29 Dose: 2 mg Escitalopram Oxalate (Lexapro Oral Solution -) 10 mg GT DAILY [facility] Last Admin: 02/03/17 11:28 Dose: 10 ml Ferrous Sulfate (Feosol) 300 mg GT DAILY [facility] Last Admin: 02/03/17 11:28 Dose: 300 mg Tigecycline 50 mg/ Dextrose 100 mls @ 100 mls/hr IVPB BID [facility] PRN Reason: Protocol Last Admin: 02/03/17 11:28 Dose: 100 mls/hr Levofloxacin (Levaquin 500 Mg Premixed Ivpb -) 100 mls @ 100 mls/hr IVPB DAILY [facility] Last Admin: 02/03/17 11:28 Dose: 100 mls/hr Insulin Aspart (Novolog Vial Sliding Scale -) 1 vial SQ ACHS [facility] PRN Reason: Protocol Last Admin: 02/03/17 12:41 Dose: Not Given Insulin Detemir (Levemir Vial) 15 units SQ AM [facility] Last Admin: 02/03/17 06:20 Dose: 15 units Insulin Detemir (Levemir Vial) 5 units SQ HS [facility] Last Admin: 02/02/17 21:43 Dose: 5 units Miscellaneous (Duragesic Patch Waste) 1 each TD PRN PRN Nystatin (Nystop Powder -) 1 applic TP BID [facility] Last Admin: 02/03/17 11:28 Dose: 1 applic Ranitidine HCl (Zantac Oral Solution -) 150 mg GT DAILY [facility] Last Admin: 02/03/17 11:28 Dose: 150 mg 81 year old woman with PMhx of CVA, dementia, non-verbal, b/l BKA, HTN, IDDM, HLD, thyroid disease, anemia presented to ER from [facility] for fever. Pt known to our service from prior admissions for hypernatrema and GIANNI. #Hypernatremia with Azotemia in setting of Fever/Poor oral intake serum na stable off IVF continue free water via NGT, titrate as needed #Hyperkalemia improved on Neprho #Anemia of chronic disease iron saturation goran trend cbc transfuse as needed #UTI/Sacral decubitis/Sepsis Abx as per ID supportive care Thank you will follow Vahid Manzano DO
[2017-02-04] MEDS: INSULIN SLIDING SCALE (NOVOLOG) 1 VIAL SQ SCH ×4 (08:09→21:32)
[2017-02-04] MEDS: INSULIN DETEMIR 100 UNITS/ML MDV SQ SCH ×2 (08:09→21:45)
[2017-02-04] MEDS: ASCORBIC ACID 500 MG/5 ML UNIT DOSE CUP GT SCH ×3 (08:10→21:23)
[2017-02-04 08:19] LABS: ANION GAP 7 (8-16); CO2 21 mmol/L (21-32); CREATININE 0.7 mg/dL (0.55-1.02); GLUCOSE,RANDOM 185 mg/dL (74-106)
--- NOTE | 2017-02-04 11:14 | PN ---
Progress Note, Physician Chief Complaint: patient in bed awake eyes open non verbal - Current Medication List Current Medications: Active Medications Acetaminophen (Tylenol Oral Solution -) 650 mg PO Q6H PRN PRN Reason: FEVER OR PAIN Last Admin: 02/03/17 06:23 Dose: 650 mg Acetaminophen (Tylenol Suppository -) [address] [place] Q6H PRN PRN Reason: FEVER OR PAIN Ascorbic Acid (Vitamin C Oral Solution -) 500 mg GT TID [facility] Last Admin: 02/04/17 08:10 Dose: Not Given Doxazosin Mesylate (Cardura -) 2 mg GT DAILY [facility] Last Admin: 02/03/17 11:29 Dose: 2 mg Escitalopram Oxalate (Lexapro Oral Solution -) 10 mg GT DAILY [facility] Last Admin: 02/03/17 11:28 Dose: 10 ml Ferrous Sulfate (Feosol) 300 mg GT DAILY [facility] Last Admin: 02/03/17 11:28 Dose: 300 mg Levofloxacin (Levaquin 500 Mg Premixed Ivpb -) 100 mls @ 100 mls/hr IVPB DAILY [facility] Last Admin: 02/03/17 11:28 Dose: 100 mls/hr Insulin Aspart (Novolog Vial Sliding Scale -) 1 vial SQ ACHS [facility] PRN Reason: Protocol Last Admin: 02/04/17 08:09 Dose: Not Given Insulin Detemir (Levemir Vial) 15 units SQ AM [facility] Last Admin: 02/04/17 08:09 Dose: Not Given Insulin Detemir (Levemir Vial) 5 units SQ HS [facility] Last Admin: 02/03/17 22:09 Dose: 5 units Miscellaneous (Duragesic Patch Waste) 1 each TD PRN PRN Nystatin (Nystop Powder -) 1 applic TP BID [facility] Last Admin: 02/03/17 22:10 Dose: 1 applic Ranitidine HCl (Zantac Oral Solution -) 150 mg GT DAILY [facility] Last Admin: 02/03/17 11:28 Dose: 150 mg - Objective Vital Signs: Vital Signs Temperature 98.8 F 02/04/17 06:00 Pulse Rate 98 H 02/04/17 06:00 Respiratory Rate 18 02/04/17 06:00 Blood Pressure 94/52 02/04/17 06:00 O2 Sat by Pulse Oximetry (%) 99 02/03/17 10:11 Constitutional: Yes: Calm Cardiovascular: Yes: Murmur, S1, S2 Respiratory: Yes: CTA Bilaterally Gastrointestinal: Yes: Normal Bowel Sounds, Soft, Other (g tube) Genitourinary: Yes: [place] Present Edema: No Neurological: Yes: Other (non verbal) Labs: CBC, BMP 02/03/17 07:30 02/04/17 06:00 INR, PTT INR 0.94 (0.82-1.09) 01/26/17 16:32 Problem List - Problems (1) Fever Assessment/Plan: Microbiology 01/26/17 16:30 Urine - Urine - Catheterized Urine Culture - Final Proteus Mirabilis will adjust abx once seen by ID levaquin and tigacil lactic acidosis improved stool for c diff ordered given diarrhea repeat labs ordered for today to see trend of WBC Code(s): R50.9 - FEVER, UNSPECIFIED (2) Diabetes Assessment/Plan: bgm better insulin adjusted seen by endocrine sliding scale hga1c 9.6 Code(s): E11.9 - TYPE 2 DIABETES MELLITUS WITHOUT COMPLICATIONS Qualifiers: Diabetes mellitus type: type 2 Diabetes mellitus complication detail: with other skin ulcer (3) ARF (acute renal failure) Assessment/Plan: improved Code(s): N17.9 - ACUTE KIDNEY FAILURE, UNSPECIFIED (4) Hypernatremia Assessment/Plan: improved renal on board Code(s): E87.0 - HYPEROSMOLALITY AND HYPERNATREMIA (5) Anemia Assessment/Plan: iron panel noted anemia of chronic disease Code(s): D64.9 - ANEMIA, UNSPECIFIED Qualifiers: Anemia type: iron deficiency Iron deficiency anemia type: unspecified iron deficiency Qualified Code(s): D50.9 - Iron deficiency anemia, unspecified
[2017-02-04] MEDS: FERROUS SO4 300 MG/5 ML ORAL SOLN UNIT DOSE CUPS GT SCH (11:28)
[2017-02-04] MEDS: RANITIDINE HCL 150 MG/10 ML UNIT-DOSE GT SCH (11:28)
[2017-02-04] MEDS: LEVOFLOXACIN 500 MG IVPB 100 ML IVPB SCH (11:31)
[2017-02-04] MEDS: DOXAZOSIN MESYLATE 2 MG TABLET (FP) GT SCH (11:31)
[2017-02-04] MEDS: ESCITALOPRAM OXALATE 5 MG/5 ML GT SCH (11:32)
[2017-02-04] MEDS: NYSTATIN POWDER 100,000 UNITS/GM - 15 GM TOPICAL POWDER TP SCH ×2 (11:32→21:44)
--- NOTE | 2017-02-04 11:57 | EKG ---
Test Reason : Blood Pressure : / mmHG Vent. Rate : 102 BPM Atrial Rate : 102 BPM P-R Int : 124 ms QRS Dur : 088 ms QT Int : 384 ms P-R-T Axes : 031 -27 107 degrees QTc Int : 500 ms SINUS TACHYCARDIA NONSPECIFIC ST AND T WAVE ABNORMALITY ABNORMAL ECG WHEN COMPARED WITH ECG OF 26-JAN-2017 16:30, PREMATURE ATRIAL COMPLEXES ARE NO LONGER PRESENT Confirmed by ARVIND EMERY MD ([id number]) on 02/04/2017 11:57:23 AM Referred By: Confirmed By:ARVIND EMERY MD
--- NOTE | 2017-02-04 13:13 | PN ---
Progress Note (short form) - Note Progress Note: PULMONARY AFEBRILE/NONVERBAL AROUSABLE PALE/ANICTERIC DIMINISHED BREATH SOUNDS BASES DIFFUSE PRECORDIAL SYSTOLIC MURMUR BS+ SOFT B/L BKA LABS/MEDS/NOTES/IMAGING/MICRO NOTED URINE : PROTEUS CXR ELEVATED RIGHT ANGELIKA/NO PNEUMONIA UTI Severe Sepsis Lactic Acidosis Acute Kidney Injury B/L BKA HTN DM Advanced Dementia ABX per ID Monitor urine output, creatinine O2 to keep Spo2 >90% VTE prophylaxis DNR/DNI R KEVON VERMA
--- NOTE | 2017-02-04 14:05 | PN ---
Progress Note, Physician History of Present Illness: Non verbal No acute distress Temps, WBC improved - Current Medication List Current Medications: Active Medications Acetaminophen (Tylenol Oral Solution -) 650 mg PO Q6H PRN PRN Reason: FEVER OR PAIN Last Admin: 02/03/17 06:23 Dose: 650 mg Acetaminophen (Tylenol Suppository -) 650 mg [place] Q6H PRN PRN Reason: FEVER OR PAIN Ascorbic Acid (Vitamin C Oral Solution -) 500 mg GT TID [facility] Last Admin: 02/04/17 08:10 Dose: Not Given Doxazosin Mesylate (Cardura -) 2 mg GT DAILY [facility] Last Admin: 02/04/17 11:31 Dose: 2 mg Escitalopram Oxalate (Lexapro Oral Solution -) 10 mg GT DAILY [facility] Last Admin: 02/04/17 11:32 Dose: 5 ml Ferrous Sulfate (Feosol) 300 mg GT DAILY [facility] Last Admin: 02/04/17 11:28 Dose: 300 mg Levofloxacin (Levaquin 500 Mg Premixed Ivpb -) 100 mls @ 100 mls/hr IVPB DAILY [facility] Last Admin: 02/04/17 11:31 Dose: 100 mls/hr Insulin Aspart (Novolog Vial Sliding Scale -) 1 vial SQ ACHS [facility] PRN Reason: Protocol Last Admin: 02/04/17 12:34 Dose: 7 units Insulin Detemir (Levemir Vial) 15 units SQ AM [facility] Last Admin: 02/04/17 08:09 Dose: Not Given Insulin Detemir (Levemir Vial) 5 units SQ HS [facility] Last Admin: 02/03/17 22:09 Dose: 5 units Miscellaneous (Duragesic Patch Waste) 1 each TD PRN PRN Nystatin (Nystop Powder -) 1 applic TP BID [facility] Last Admin: 02/04/17 11:32 Dose: 1 applic Ranitidine HCl (Zantac Oral Solution -) 150 mg GT DAILY [facility] Last Admin: 02/04/17 11:28 Dose: 150 mg - Objective Vital Signs: Vital Signs Temperature 98.8 F 02/04/17 06:00 Pulse Rate 98 H 02/04/17 06:00 Respiratory Rate 18 02/04/17 06:00 Blood Pressure 94/52 02/04/17 06:00 O2 Sat by Pulse Oximetry (%) 99 02/03/17 10:11 Constitutional: Yes: No Distress, Pallor Cardiovascular: Yes: Regular Rate and Rhythm, Murmur, S1, S2 Respiratory: Yes: Diminished Gastrointestinal: Yes: Normal Bowel Sounds, Soft. No: Tenderness Extremities: Yes: Other (S/P bilateral BKA) Integumentary: Yes: Other (Stage IV sacral decubitus) Labs: CBC, BMP 02/03/17 07:30 02/04/17 06:00 INR, PTT INR 0.94 (0.82-1.09) 01/26/17 16:32 Assessment/Plan Sepsis ? source ? decubitus Fever/ leukocytosis Hx resistant pathogens Dementia Continue levaquin Contact precautions
[2017-02-04] MEDS ORDERED: PT OWN MED DRAWER 7, Y5N ONE (14:39)
[2017-02-04] MEDS: ACETAMINOPHEN 650 MG/20.3 ML ORAL SOLUTION (CUPS) PO PRN (15:15)
--- NOTE | 2017-02-04 17:53 | PN ---
Progress Note (short form) - Note Progress Note: Renal follow up for Hypernatremia Pt seen and examined at the bedside no overnight events remains febrile Vital Signs Temperature 98.3 F 02/04/17 16:30 Pulse Rate 95 H 02/04/17 16:30 Respiratory Rate 18 02/04/17 16:30 Blood Pressure 119/56 02/04/17 16:30 O2 Sat by Pulse Oximetry (%) 99 02/03/17 10:11 Intake & Output 02/01/17 02/02/17 02/03/17 02/04/17 23:59 23:59 23:59 23:59 Intake Total 4790 820 830 0 Output Total 500 2400 1350 900 Balance 9982 -1581 -520 -900 Weight 99 lb 7 oz 99 lb 6 oz 105 lb 1 oz NAD awake RRR CTA (anterior exam) soft NT/ND No LE edema CBC, BMP 02/03/17 07:30 02/04/17 06:00 Current Medications Acetaminophen (Tylenol Oral Solution -) 650 mg PO Q6H PRN PRN Reason: FEVER OR PAIN Last Admin: 02/04/17 15:15 Dose: 650 mg Acetaminophen (Tylenol Suppository -) 650 mg [place] Q6H PRN PRN Reason: FEVER OR PAIN Ascorbic Acid (Vitamin C Oral Solution -) 500 mg GT TID [facility] Last Admin: 02/04/17 14:40 Dose: 500 mg Doxazosin Mesylate (Cardura -) 2 mg GT DAILY [facility] Last Admin: 02/04/17 11:31 Dose: 2 mg Escitalopram Oxalate (Lexapro Oral Solution -) 10 mg GT DAILY [facility] Last Admin: 02/04/17 11:32 Dose: 5 ml Ferrous Sulfate (Feosol) 300 mg GT DAILY [facility] Last Admin: 02/04/17 11:28 Dose: 300 mg Levofloxacin (Levaquin 500 Mg Premixed Ivpb -) 100 mls @ 100 mls/hr IVPB DAILY [facility] Last Admin: 02/04/17 11:31 Dose: 100 mls/hr Insulin Aspart (Novolog Vial Sliding Scale -) 1 vial SQ ACHS [facility] PRN Reason: Protocol Last Admin: 02/04/17 17:05 Dose: Not Given Insulin Detemir (Levemir Vial) 15 units SQ AM [facility] Last Admin: 02/04/17 08:09 Dose: Not Given Insulin Detemir (Levemir Vial) 5 units SQ HS [facility] Last Admin: 02/03/17 22:09 Dose: 5 units Miscellaneous (Duragesic Patch Waste) 1 each TD PRN PRN Nystatin (Nystop Powder -) 1 applic TP BID [facility] Last Admin: 02/04/17 11:32 Dose: 1 applic Ranitidine HCl (Zantac Oral Solution -) 150 mg GT DAILY [facility] Last Admin: 02/04/17 11:28 Dose: 150 mg 81 year old woman with PMhx of CVA, dementia, non-verbal, b/l BKA, HTN, IDDM, HLD, thyroid disease, anemia presented to ER from [facility] for fever. Pt known to our service from prior admissions for hypernatrema and GIANNI. #Hypernatremia with Azotemia in setting of Fever/Poor oral intake Sodium level stable on NGT feeds and free water #Hyperkalemia improved on Neprho #Anemia of chronic disease iron saturation goran trend cbc transfuse as needed #UTI/Sacral decubitis/Sepsis Abx as per ID supportive care Thank you will follow Vahid Manzano DO
[2017-02-05] MEDS: ASCORBIC ACID 500 MG/5 ML UNIT DOSE CUP GT SCH ×3 (05:46→22:35)
[2017-02-05] MEDS: INSULIN SLIDING SCALE (NOVOLOG) 1 VIAL SQ SCH ×4 (06:04→21:59)
[2017-02-05] MEDS: INSULIN DETEMIR 100 UNITS/ML MDV SQ SCH ×2 (06:04→22:00)
[2017-02-05] MEDS: ACETAMINOPHEN 650 MG/20.3 ML ORAL SOLUTION (CUPS) PO PRN ×2 (06:43→19:06)
[2017-02-05 08:42] LABS: ALBUMIN 1.6 g/dl (3.4-5.0); ALK PHOS 172 U/L (45-117); ANION GAP 12 (8-16); BILIRUBIN,TOTAL 0.2 mg/dL (0.2-1.0); CALCIUM 8.1 mg/dL (8.5-10.1); CO2 18 mmol/L (21-32); CREATININE 0.7 mg/dL (0.55-1.02); GLUCOSE,RANDOM 220 mg/dL (74-106); SGPT/ALT 10 U/L (12-78); TOT PROT 6.9 g/dl (6.4-8.2)
[2017-02-05 08:51] LABS: MAGNESIUM 2.1 mg/dL (1.8-2.4)
[2017-02-05 08:52] LABS: SGOT/AST 19 U/L (15-37)
[2017-02-05] MEDS ORDERED: PT OWN MED DRAWER 7, Y5N ONE (09:54)
[2017-02-05] MEDS: fentaNYL 12mcg/hr PATCH.TD72 TD SCH (10:00)
[2017-02-05] MEDS: LEVOFLOXACIN 500 MG IVPB 100 ML IVPB SCH (10:06)
[2017-02-05] MEDS: RANITIDINE HCL 150 MG/10 ML UNIT-DOSE GT SCH (10:09)
[2017-02-05] MEDS: FERROUS SO4 300 MG/5 ML ORAL SOLN UNIT DOSE CUPS GT SCH (10:09)
[2017-02-05] MEDS: ESCITALOPRAM OXALATE 5 MG/5 ML GT SCH (10:09)
[2017-02-05] MEDS: NYSTATIN POWDER 100,000 UNITS/GM - 15 GM TOPICAL POWDER TP SCH ×2 (10:10→22:00)
[2017-02-05] MEDS: DOXAZOSIN MESYLATE 2 MG TABLET (FP) GT SCH (10:11)
[2017-02-05 10:21] LABS: BASOPHIL 0.2 % (0-2.0); EOSINOPHIL 1.2 % (0-4.5); MCHC 32.2 g/dl (32.0-36.0); MEAN CELL VOLUME 99.6 fl (80-96); MEAN PLT VOLUME 8.9 fl (7.5-11.1); NEUTROPHILS 64.7 % (42.8-82.8); PLATELET COUNT 331 K/MM3 (134-434); RDW 20.3 % (11.6-15.6); WHITE BLOOD COUNT 10.7 K/mm3 (4.0-10.0)
[2017-02-05] MEDS: FENTANYL PATCH WASTE TD PRN (11:00)
--- NOTE | 2017-02-05 11:38 | PN ---
Progress Note (short form) - Note Progress Note: PULMONARY Pt nonverbal, still with intermittent fevers. Last Vital Signs Temp Pulse Resp BP Pulse Ox 100.9 F H 99 H 22 121/56 99 02/05/17 08:24 02/05/17 08:24 02/05/17 08:24 02/05/17 08:24 02/03/17 10:11 Gen: nonverbal Heart: RRR Lung: decreased breath sounds at the bases Abd: soft, nontender Ext: no edema, bilateral BKA CBC, BMP 02/05/17 09:08 02/05/17 08:00 Active Medications Acetaminophen (Tylenol Oral Solution -) 650 mg PO Q6H PRN PRN Reason: FEVER OR PAIN Last Admin: 02/05/17 06:43 Dose: 650 mg Acetaminophen (Tylenol Suppository -) 650 mg [place] Q6H PRN PRN Reason: FEVER OR PAIN Ascorbic Acid (Vitamin C Oral Solution -) 500 mg GT TID [facility] Last Admin: 02/05/17 05:46 Dose: 500 mg Doxazosin Mesylate (Cardura -) 2 mg GT DAILY [facility] Last Admin: 02/05/17 10:11 Dose: 2 mg Escitalopram Oxalate (Lexapro Oral Solution -) 10 mg GT DAILY [facility] Last Admin: 02/05/17 10:09 Dose: 10 ml Fentanyl (Duragesic 12mcg Patch -) 1 patch TD Q72H [facility] Last Admin: 02/05/17 10:00 Dose: 1 patch Ferrous Sulfate (Feosol) 300 mg GT DAILY [facility] Last Admin: 02/05/17 10:09 Dose: 300 mg Levofloxacin (Levaquin 500 Mg Premixed Ivpb -) 100 mls @ 100 mls/hr IVPB DAILY [facility] Last Admin: 02/05/17 10:06 Dose: 100 mls/hr Insulin Aspart (Novolog Vial Sliding Scale -) 1 vial SQ ACHS [facility] PRN Reason: Protocol Last Admin: 02/05/17 06:04 Dose: 5 units Insulin Detemir (Levemir Vial) 15 units SQ AM [facility] Last Admin: 02/05/17 06:04 Dose: 15 units Insulin Detemir (Levemir Vial) 5 units SQ HS [facility] Last Admin: 02/04/17 21:45 Dose: 5 units Miscellaneous (Duragesic Patch Waste) 1 each TD PRN PRN Nystatin (Nystop Powder -) 1 applic TP BID [facility] Last Admin: 02/05/17 10:10 Dose: 1 applic Ranitidine HCl (Zantac Oral Solution -) 150 mg GT DAILY [facility] Last Admin: 02/05/17 10:09 Dose: 150 mg A/P UTI Sacral Decubitus Ulcer h/o CVA HTN DM Hyperlipidemia Dementia h/o Bilateral BKA - continue antibiotics per ID - monitor fever curve, WBC trend - wound care - enteral feeds - aspiration precautions - DVT prophylaxis Problem List - Problems (1) Diabetes Code(s): E11.9 - TYPE 2 DIABETES MELLITUS WITHOUT COMPLICATIONS Qualifiers: Diabetes mellitus type: type 2 Diabetes mellitus complication detail: with other skin ulcer (2) HTN (hypertension) Code(s): I10 - ESSENTIAL (PRIMARY) HYPERTENSION Qualifiers: Hypertension type: essential hypertension Qualified Code(s): I10 - Essential (primary) hypertension (3) ARF (acute renal failure) Code(s): N17.9 - ACUTE KIDNEY FAILURE, UNSPECIFIED (4) Lactic acidosis Code(s): E87.2 - ACIDOSIS (5) UTI (urinary tract infection) Code(s): N39.0 - URINARY TRACT INFECTION, SITE NOT SPECIFIED Qualifiers: Urinary tract infection type: site unspecified Hematuria presence: without hematuria Qualified Code(s): N39.0 - Urinary tract infection, site not specified (6) Decubitus ulcer Code(s): L89.90 - PRESSURE ULCER OF UNSPECIFIED SITE, UNSPECIFIED STAGE Qualifiers: Pressure ulcer location: sacral region Pressure ulcer stage: unspecified pressure ulcer stage Qualified Code(s): L89.159 - Pressure ulcer of sacral region, unspecified stage (7) Severe sepsis Code(s): A41.9 - SEPSIS, UNSPECIFIED ORGANISM; R65.20 - SEVERE SEPSIS WITHOUT SEPTIC SHOCK
--- NOTE | 2017-02-05 11:38 | PN ---
Progress Note, Physician History of Present Illness: Non verbal Low grade temp WBC improved - Current Medication List Current Medications: Active Medications Acetaminophen (Tylenol Oral Solution -) 650 mg PO Q6H PRN PRN Reason: FEVER OR PAIN Last Admin: 02/05/17 06:43 Dose: 650 mg Acetaminophen (Tylenol Suppository -) 650 mg [place] Q6H PRN PRN Reason: FEVER OR PAIN Ascorbic Acid (Vitamin C Oral Solution -) 500 mg GT TID [facility] Last Admin: 02/05/17 05:46 Dose: 500 mg Doxazosin Mesylate (Cardura -) 2 mg GT DAILY [facility] Last Admin: 02/05/17 10:11 Dose: 2 mg Escitalopram Oxalate (Lexapro Oral Solution -) 10 mg GT DAILY [facility] Last Admin: 02/05/17 10:09 Dose: 10 ml Fentanyl (Duragesic 12mcg Patch -) 1 patch TD Q72H [facility] Last Admin: 02/05/17 10:00 Dose: 1 patch Ferrous Sulfate (Feosol) 300 mg GT DAILY [facility] Last Admin: 02/05/17 10:09 Dose: 300 mg Levofloxacin (Levaquin 500 Mg Premixed Ivpb -) 100 mls @ 100 mls/hr IVPB DAILY [facility] Last Admin: 02/05/17 10:06 Dose: 100 mls/hr Insulin Aspart (Novolog Vial Sliding Scale -) 1 vial SQ ACHS [facility] PRN Reason: Protocol Last Admin: 02/05/17 06:04 Dose: 5 units Insulin Detemir (Levemir Vial) 15 units SQ AM [facility] Last Admin: 02/05/17 06:04 Dose: 15 units Insulin Detemir (Levemir Vial) 5 units SQ HS [facility] Last Admin: 02/04/17 21:45 Dose: 5 units Miscellaneous (Duragesic Patch Waste) 1 each TD PRN PRN Nystatin (Nystop Powder -) 1 applic TP BID [facility] Last Admin: 02/05/17 10:10 Dose: 1 applic Ranitidine HCl (Zantac Oral Solution -) 150 mg GT DAILY [facility] Last Admin: 02/05/17 10:09 Dose: 150 mg - Objective Vital Signs: Vital Signs Temperature 100.9 F H 02/05/17 08:24 Pulse Rate 99 H 02/05/17 08:24 Respiratory Rate 22 02/05/17 08:24 Blood Pressure 121/56 02/05/17 08:24 O2 Sat by Pulse Oximetry (%) 99 02/03/17 10:11 Constitutional: Yes: No Distress, Cachectic Cardiovascular: Yes: Regular Rate and Rhythm, Murmur, S1, S2 Respiratory: Yes: Diminished Gastrointestinal: Yes: Normal Bowel Sounds, Soft, Abdomen, Obese Extremities: Yes: Other (S/P bilateral BKA) Labs: CBC, BMP 02/05/17 09:08 02/05/17 08:00 INR, PTT INR 0.94 (0.82-1.09) 01/26/17 16:32 Assessment/Plan Sepsis ? source ? decubitus Fever/ leukocytosis Hx resistant pathogens Dementia Continue levaquin Contact precautions
--- NOTE | 2017-02-05 17:40 | PN ---
Progress Note, Physician Chief Complaint: Sepsis Infected decubitus ulcer History of Present Illness: NAD, in bed - Current Medication List Current Medications: Active Medications Acetaminophen (Tylenol Oral Solution -) 650 mg PO Q6H PRN PRN Reason: FEVER OR PAIN Last Admin: 02/05/17 06:43 Dose: 650 mg Acetaminophen (Tylenol Suppository -) 650 mg [place] Q6H PRN PRN Reason: FEVER OR PAIN Ascorbic Acid (Vitamin C Oral Solution -) 500 mg GT TID [facility] Last Admin: 02/05/17 13:23 Dose: 500 mg Doxazosin Mesylate (Cardura -) 2 mg GT DAILY [facility] Last Admin: 02/05/17 10:11 Dose: 2 mg Escitalopram Oxalate (Lexapro Oral Solution -) 10 mg GT DAILY [facility] Last Admin: 02/05/17 10:09 Dose: 10 ml Fentanyl (Duragesic 12mcg Patch -) 1 patch TD Q72H [facility] Last Admin: 02/05/17 10:00 Dose: 1 patch Ferrous Sulfate (Feosol) 300 mg GT DAILY [facility] Last Admin: 02/05/17 10:09 Dose: 300 mg Levofloxacin (Levaquin 500 Mg Premixed Ivpb -) 100 mls @ 100 mls/hr IVPB DAILY [facility] Last Admin: 02/05/17 10:06 Dose: 100 mls/hr Insulin Aspart (Novolog Vial Sliding Scale -) 1 vial SQ ACHS [facility] PRN Reason: Protocol Last Admin: 02/05/17 12:00 Dose: 2 units Insulin Detemir (Levemir Vial) 15 units SQ AM [facility] Last Admin: 02/05/17 06:04 Dose: 15 units Insulin Detemir (Levemir Vial) 5 units SQ HS [facility] Last Admin: 02/04/17 21:45 Dose: 5 units Miscellaneous (Duragesic Patch Waste) 1 each TD PRN PRN Nystatin (Nystop Powder -) 1 applic TP BID [facility] Last Admin: 02/05/17 10:10 Dose: 1 applic Ranitidine HCl (Zantac Oral Solution -) 150 mg GT DAILY [facility] Last Admin: 02/05/17 10:09 Dose: 150 mg - Objective Vital Signs: Vital Signs Temperature 100.7 F H 02/05/17 16:58 Pulse Rate 97 H 02/05/17 16:58 Respiratory Rate 20 02/05/17 16:58 Blood Pressure 112/51 02/05/17 16:58 O2 Sat by Pulse Oximetry (%) 99 02/03/17 10:11 Constitutional: Yes: Well Nourished, No Distress, Calm Labs: CBC, BMP 02/05/17 09:08 02/05/17 08:00 INR, PTT INR 0.94 (0.82-1.09) 01/26/17 16:32 Problem List - Problems (1) Decubitus ulcer Code(s): L89.90 - PRESSURE ULCER OF UNSPECIFIED SITE, UNSPECIFIED STAGE Qualifiers: Pressure ulcer location: sacral region Pressure ulcer stage: unspecified pressure ulcer stage Qualified Code(s): L89.159 - Pressure ulcer of sacral region, unspecified stage (2) Septic shock Assessment/Plan: 01/26/17 16:30 Urine - Urine - Catheterized Urine Culture - Final Proteus Mirabilis will adjust abx once seen by ID levaquin and tigacil lactic acidosis improved stool for c diff ordered given diarrhea repeat labs ordered for today to see trend of WBC Code(s): A41.9 - SEPSIS, UNSPECIFIED ORGANISM; R65.21 - SEVERE SEPSIS WITH SEPTIC SHOCK (3) Type 2 diabetes mellitus with autonomic neuropathy Assessment/Plan: -A1c at 9.6 -endocrinology consult -insulin -BGM Code(s): E11.43 - TYPE 2 DIABETES W DIABETIC AUTONOMIC (POLY)NEUROPATHY (4) UTI (urinary tract infection) Assessment/Plan: 01/26/17 16:30 Urine - Urine - Catheterized Urine Culture - Final Proteus Mirabilis -IV abx -lactic acidosis improved -ID consult -Gonzales catheter Code(s): N39.0 - URINARY TRACT INFECTION, SITE NOT SPECIFIED Qualifiers: Urinary tract infection type: site unspecified Hematuria presence: without hematuria Qualified Code(s): N39.0 - Urinary tract infection, site not specified (5) Anemia Assessment/Plan: H/H stable Code(s): D64.9 - ANEMIA, UNSPECIFIED Qualifiers: Anemia type: iron deficiency Iron deficiency anemia type: unspecified iron deficiency Qualified Code(s): D50.9 - Iron deficiency anemia, unspecified Assessment/Plan see problem list
--- NOTE | 2017-02-05 19:13 | PN ---
Progress Note (short form) - Note Progress Note: s/p hypernatremia s/p sepsis s/p uti s/p IV water via GT Active Medications Acetaminophen (Tylenol Oral Solution -) 650 mg PO Q6H PRN PRN Reason: FEVER OR PAIN Last Admin: 02/05/17 19:06 Dose: 650 mg Acetaminophen (Tylenol Suppository -) 650 mg [place] Q6H PRN PRN Reason: FEVER OR PAIN Ascorbic Acid (Vitamin C Oral Solution -) 500 mg GT TID [facility] Last Admin: 02/05/17 13:23 Dose: 500 mg Doxazosin Mesylate (Cardura -) 2 mg GT DAILY [facility] Last Admin: 02/05/17 10:11 Dose: 2 mg Escitalopram Oxalate (Lexapro Oral Solution -) 10 mg GT DAILY [facility] Last Admin: 02/05/17 10:09 Dose: 10 ml Fentanyl (Duragesic 12mcg Patch -) 1 patch TD Q72H [facility] Last Admin: 02/05/17 10:00 Dose: 1 patch Ferrous Sulfate (Feosol) 300 mg GT DAILY [facility] Last Admin: 02/05/17 10:09 Dose: 300 mg Levofloxacin (Levaquin 500 Mg Premixed Ivpb -) 100 mls @ 100 mls/hr IVPB DAILY [facility] Last Admin: 02/05/17 10:06 Dose: 100 mls/hr Insulin Aspart (Novolog Vial Sliding Scale -) 1 vial SQ ACHS [facility] PRN Reason: Protocol Last Admin: 02/05/17 17:55 Dose: Not Given Insulin Detemir (Levemir Vial) 15 units SQ AM [facility] Last Admin: 02/05/17 06:04 Dose: 15 units Insulin Detemir (Levemir Vial) 5 units SQ HS [facility] Last Admin: 02/04/17 21:45 Dose: 5 units Miscellaneous (Duragesic Patch Waste) 1 each TD PRN PRN Nystatin (Nystop Powder -) 1 applic TP BID [facility] Last Admin: 02/05/17 10:10 Dose: 1 applic Ranitidine HCl (Zantac Oral Solution -) 150 mg GT DAILY [facility] Last Admin: 02/05/17 10:09 Dose: 150 mg Last Vital Signs Temp Pulse Resp BP Pulse Ox 101.8 F H 97 H 20 112/51 99 02/05/17 19:06 02/05/17 16:58 02/05/17 16:58 02/05/17 16:58 02/05/17 09:00 Lungs clear Heart RRR Abd soft Ext no edema CBC, BMP 02/05/17 09:08 02/05/17 08:00 Plan f/u labs
[2017-02-06] MEDS: INSULIN DETEMIR 100 UNITS/ML MDV SQ SCH ×2 (06:25→22:58)
[2017-02-06] MEDS: INSULIN SLIDING SCALE (NOVOLOG) 1 VIAL SQ SCH ×4 (06:26→22:59)
[2017-02-06] MEDS: ASCORBIC ACID 500 MG/5 ML UNIT DOSE CUP GT SCH ×3 (06:26→23:00)
[2017-02-06] MEDS: ACETAMINOPHEN 650 MG/20.3 ML ORAL SOLUTION (CUPS) PO PRN ×2 (06:26→15:27)
[2017-02-06] MEDS ORDERED: PT OWN MED DRAWER 7, Y5N ONE (09:45)
[2017-02-06] MEDS: RANITIDINE HCL 150 MG/10 ML UNIT-DOSE GT SCH (09:52)
[2017-02-06] MEDS: FERROUS SO4 300 MG/5 ML ORAL SOLN UNIT DOSE CUPS GT SCH (09:52)
[2017-02-06] MEDS: LEVOFLOXACIN 500 MG IVPB 100 ML IVPB SCH (09:53)
[2017-02-06] MEDS: DOXAZOSIN MESYLATE 2 MG TABLET (FP) GT SCH (09:53)
[2017-02-06] MEDS: NYSTATIN POWDER 100,000 UNITS/GM - 15 GM TOPICAL POWDER TP SCH ×2 (09:53→23:04)
[2017-02-06] MEDS: ESCITALOPRAM OXALATE 5 MG/5 ML GT SCH (09:53)
--- NOTE | 2017-02-06 13:15 | PN ---
Progress Note (short form) - Note Progress Note: PULMONARY Pt nonverbal, still with intermittent high fevers. Last Vital Signs Temp Pulse Resp BP Pulse Ox 100.9 F H 104 H 22 116/57 97 02/06/17 09:00 02/06/17 09:00 02/06/17 09:00 02/06/17 09:00 02/05/17 21:00 Gen: nonverbal Heart: RRR Lung: decreased breath sounds at the bases Abd: soft, nontender Ext: no edema, bilateral BKA CBC, BMP 02/05/17 09:08 02/05/17 08:00 Active Medications Acetaminophen (Tylenol Oral Solution -) 650 mg PO Q6H PRN PRN Reason: FEVER OR PAIN Last Admin: 02/06/17 06:26 Dose: 650 mg Acetaminophen (Tylenol Suppository -) 650 mg [place] Q6H PRN PRN Reason: FEVER OR PAIN Ascorbic Acid (Vitamin C Oral Solution -) 500 mg GT TID [facility] Last Admin: 02/06/17 06:26 Dose: 500 mg Doxazosin Mesylate (Cardura -) 2 mg GT DAILY [facility] Last Admin: 02/06/17 09:53 Dose: Not Given Escitalopram Oxalate (Lexapro Oral Solution -) 10 mg GT DAILY [facility] Last Admin: 02/06/17 09:53 Dose: 10 ml Fentanyl (Duragesic 12mcg Patch -) 1 patch TD Q72H [facility] Last Admin: 02/05/17 10:00 Dose: 1 patch Ferrous Sulfate (Feosol) 300 mg GT DAILY [facility] Last Admin: 02/06/17 09:52 Dose: 300 mg Levofloxacin (Levaquin 500 Mg Premixed Ivpb -) 100 mls @ 100 mls/hr IVPB DAILY [facility] Last Admin: 02/06/17 09:53 Dose: 100 mls/hr Insulin Aspart (Novolog Vial Sliding Scale -) 1 vial SQ ACHS [facility] PRN Reason: Protocol Last Admin: 02/06/17 12:50 Dose: Not Given Insulin Detemir (Levemir Vial) 15 units SQ AM [facility] Last Admin: 02/06/17 06:25 Dose: 15 units Insulin Detemir (Levemir Vial) 5 units SQ HS [facility] Last Admin: 02/05/17 22:00 Dose: 5 units Miscellaneous (Duragesic Patch Waste) 1 each TD PRN PRN Last Admin: 02/05/17 11:00 Dose: 1 each Nystatin (Nystop Powder -) 1 applic TP BID [facility] Last Admin: 02/06/17 09:53 Dose: 1 applic Ranitidine HCl (Zantac Oral Solution -) 150 mg GT DAILY [facility] Last Admin: 02/06/17 09:52 Dose: 150 mg A/P UTI Sacral Decubitus Ulcer h/o CVA HTN DM Hyperlipidemia Dementia h/o Bilateral BKA - continue antibiotics per ID - f/u pending cultures - monitor fever curve, WBC trend - wound care - enteral feeds - aspiration precautions - DVT prophylaxis Problem List - Problems (1) Diabetes Code(s): E11.9 - TYPE 2 DIABETES MELLITUS WITHOUT COMPLICATIONS Qualifiers: Diabetes mellitus type: type 2 Diabetes mellitus complication detail: with other skin ulcer (2) HTN (hypertension) Code(s): I10 - ESSENTIAL (PRIMARY) HYPERTENSION Qualifiers: Hypertension type: essential hypertension Qualified Code(s): I10 - Essential (primary) hypertension (3) ARF (acute renal failure) Code(s): N17.9 - ACUTE KIDNEY FAILURE, UNSPECIFIED (4) Lactic acidosis Code(s): E87.2 - ACIDOSIS (5) UTI (urinary tract infection) Code(s): N39.0 - URINARY TRACT INFECTION, SITE NOT SPECIFIED Qualifiers: Urinary tract infection type: site unspecified Hematuria presence: without hematuria Qualified Code(s): N39.0 - Urinary tract infection, site not specified (6) Decubitus ulcer Code(s): L89.90 - PRESSURE ULCER OF UNSPECIFIED SITE, UNSPECIFIED STAGE Qualifiers: Pressure ulcer location: sacral region Pressure ulcer stage: unspecified pressure ulcer stage Qualified Code(s): L89.159 - Pressure ulcer of sacral region, unspecified stage (7) Severe sepsis Code(s): A41.9 - SEPSIS, UNSPECIFIED ORGANISM; R65.20 - SEVERE SEPSIS WITHOUT SEPTIC SHOCK
--- NOTE | 2017-02-06 13:17 | PN ---
Progress Note, Physician History of Present Illness: Non verbal Remains febrile High grade today WBC improved - Current Medication List Current Medications: Active Medications Acetaminophen (Tylenol Oral Solution -) 650 mg PO Q6H PRN PRN Reason: FEVER OR PAIN Last Admin: 02/06/17 06:26 Dose: 650 mg Acetaminophen (Tylenol Suppository -) 650 mg [place] Q6H PRN PRN Reason: FEVER OR PAIN Ascorbic Acid (Vitamin C Oral Solution -) 500 mg GT TID [facility] Last Admin: 02/06/17 06:26 Dose: 500 mg Doxazosin Mesylate (Cardura -) 2 mg GT DAILY [facility] Last Admin: 02/06/17 09:53 Dose: Not Given Escitalopram Oxalate (Lexapro Oral Solution -) 10 mg GT DAILY [facility] Last Admin: 02/06/17 09:53 Dose: 10 ml Fentanyl (Duragesic 12mcg Patch -) 1 patch TD Q72H [facility] Last Admin: 02/05/17 10:00 Dose: 1 patch Ferrous Sulfate (Feosol) 300 mg GT DAILY [facility] Last Admin: 02/06/17 09:52 Dose: 300 mg Levofloxacin (Levaquin 500 Mg Premixed Ivpb -) 100 mls @ 100 mls/hr IVPB DAILY [facility] Last Admin: 02/06/17 09:53 Dose: 100 mls/hr Insulin Aspart (Novolog Vial Sliding Scale -) 1 vial SQ ACHS [facility] PRN Reason: Protocol Last Admin: 02/06/17 12:50 Dose: Not Given Insulin Detemir (Levemir Vial) 15 units SQ AM [facility] Last Admin: 02/06/17 06:25 Dose: 15 units Insulin Detemir (Levemir Vial) 5 units SQ HS [facility] Last Admin: 02/05/17 22:00 Dose: 5 units Miscellaneous (Duragesic Patch Waste) 1 each TD PRN PRN Last Admin: 02/05/17 11:00 Dose: 1 each Nystatin (Nystop Powder -) 1 applic TP BID [facility] Last Admin: 02/06/17 09:53 Dose: 1 applic Ranitidine HCl (Zantac Oral Solution -) 150 mg GT DAILY [facility] Last Admin: 02/06/17 09:52 Dose: 150 mg - Objective Vital Signs: Vital Signs Temperature 100.9 F H 02/06/17 09:00 Pulse Rate 104 H 02/06/17 09:00 Respiratory Rate 22 11/12/17 09:00 Blood Pressure 116/57 02/06/17 09:00 O2 Sat by Pulse Oximetry (%) 97 02/05/17 21:00 Constitutional: Yes: No Distress, Cachectic Eyes: Yes: Conjunctiva Clear Cardiovascular: Yes: Regular Rate and Rhythm, S1, S2 Respiratory: Yes: Diminished Gastrointestinal: Yes: Normal Bowel Sounds, Soft. No: Tenderness Extremities: Yes: Other (S/P bilateral BKA) Integumentary: Yes: Other (+sacral decubitus) Labs: CBC, BMP 02/05/17 09:08 02/05/17 08:00 INR, PTT INR 0.94 (0.82-1.09) 01/26/17 16:32 Assessment/Plan Sepsis ? source ? 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
[2017-02-06] MEDS ORDERED: VANCOMYCIN 1,000 MG in DEXTROSE 5%-WATER - 250 ML IVPB SCH (13:30)
[2017-02-06] MEDS: VANCOMYCIN 1,000 MG in DEXTROSE 5%-WATER - 250 ML IVPB SCH (16:02)
[2017-02-06] MEDS: PIPERACILLIN/TAZOB 3.375 GM 50 ML IVPB SCH ×2 (16:02→18:31)
[2017-02-06] MEDS ORDERED: INSULIN DETEMIR 100 UNITS/ML MDV SQ ONE (17:59)
[2017-02-06] MEDS ORDERED: INSULIN (NOVOLOG) ASPART 100 UNITS/ML 10ML VIAL ONE ×2 (17:59→21:07)
[2017-02-06 18:48] LABS: URINE APPEARANCE TURBID; URINE BILIRUBIN NEGATIVE (NEGATIVE); URINE BLOOD NEGATIVE (NEGATIVE); URINE COLOR AMBER; URINE GLUCOSE (UA) NEGATIVE (NEGATIVE); URINE KETONE NEGATIVE (NEGATIVE); URINE NITRITE NEGATIVE (NEGATIVE); URINE UROBILINOGEN NEGATIVE mg/dL (0.2-1.0)
[2017-02-06 18:51] LABS: URINE PROTEIN 2+ (NEGATIVE)
[2017-02-06 18:54] LABS: URINE BACTERIA MANY /hpf (NONE SEEN); URINE MUCUS MANY; URINE RBC 39; URINE WBC 926
--- NOTE | 2017-02-06 21:33 | PN ---
Progress Note (short form) - Note Progress Note: s/p hypernatremia s/p sepsis s/p uti s/p IV water via GT Current Medications Acetaminophen (Tylenol Oral Solution -) 650 mg PO Q6H PRN PRN Reason: FEVER OR PAIN Last Admin: 02/06/17 15:27 Dose: 650 mg Acetaminophen (Tylenol Suppository -) 650 mg [place] Q6H PRN PRN Reason: FEVER OR PAIN Ascorbic Acid (Vitamin C Oral Solution -) 500 mg GT TID [facility] Last Admin: 02/06/17 15:27 Dose: 500 mg Doxazosin Mesylate (Cardura -) 2 mg GT DAILY [facility] Last Admin: 02/06/17 09:53 Dose: Not Given Escitalopram Oxalate (Lexapro Oral Solution -) 10 mg GT DAILY [facility] Last Admin: 02/06/17 09:53 Dose: 10 ml Fentanyl (Duragesic 12mcg Patch -) 1 patch TD Q72H [facility] Last Admin: 02/05/17 10:00 Dose: 1 patch Ferrous Sulfate (Feosol) 300 mg GT DAILY [facility] Last Admin: 02/06/17 09:52 Dose: 300 mg Piperacillin/Tazobactam/Dextrose (Zosyn 3.375gm Ivpb (Premix)) 50 mls @ 100 mls /hr IVPB Q8H-IV [facility] PRN Reason: Protocol Last Admin: 02/06/17 18:31 Dose: Not Given Vancomycin HCl 1,000 mg/ (Dextrose) 250 mls @ 200 mls/hr IVPB Q24H [facility] Last Admin: 02/06/17 16:02 Dose: 200 mls/hr Insulin Aspart (Novolog Vial Sliding Scale -) 1 vial SQ ACHS [facility] PRN Reason: Protocol Last Admin: 02/06/17 18:31 Dose: 2 units Insulin Detemir (Levemir Vial) 15 units SQ AM [facility] Last Admin: 02/06/17 06:25 Dose: 15 units Insulin Detemir (Levemir Vial) 5 units SQ HS [facility] Last Admin: 02/05/17 22:00 Dose: 5 units Miscellaneous (Duragesic Patch Waste) 1 each TD PRN PRN Last Admin: 02/05/17 11:00 Dose: 1 each Nystatin (Nystop Powder -) 1 applic TP BID [facility] Last Admin: 11/12/17 09:53 Dose: 1 applic Ranitidine HCl (Zantac Oral Solution -) 150 mg GT DAILY [facility] Last Admin: 02/06/17 09:52 Dose: 150 mg Last Vital Signs Temp Pulse Resp BP Pulse Ox 100.0 F H 98 H 20 112/50 97 02/06/17 17:21 02/06/17 17:21 02/06/17 17:21 02/06/17 17:21 02/05/17 21:00 Lungs clear Heart RRR Abd soft Ext no edema CBC, BMP 02/05/17 09:08 02/05/17 08:00 IMP- PROB SEPSIS R/O UTI ELEV WBC DEMENTIA PRERENAL AZOTEMIA CVA DM HTN ZACARIAS BKA Plan f/u labs WILL SIGN OFF TODAY
[2017-02-06 21:57] LABS: URINE LEUK ESTERASE 2+ (NEGATIVE)
--- NOTE | 2017-02-06 22:40 | PN ---
Progress Note, Physician Chief Complaint: Sepsis Infected decubitus ulcer History of Present Illness: NAD, in bed - Current Medication List Current Medications: Active Medications Acetaminophen (Tylenol Oral Solution -) 650 mg PO Q6H PRN PRN Reason: FEVER OR PAIN Last Admin: 02/06/17 15:27 Dose: 650 mg Acetaminophen (Tylenol Suppository -) 650 mg [place] Q6H PRN PRN Reason: FEVER OR PAIN Ascorbic Acid (Vitamin C Oral Solution -) 500 mg GT TID [facility] Last Admin: 02/06/17 15:27 Dose: 500 mg Doxazosin Mesylate (Cardura -) 2 mg GT DAILY [facility] Last Admin: 02/06/17 09:53 Dose: Not Given Escitalopram Oxalate (Lexapro Oral Solution -) 10 mg GT DAILY [facility] Last Admin: 02/06/17 09:53 Dose: 10 ml Fentanyl (Duragesic 12mcg Patch -) 1 patch TD Q72H [facility] Last Admin: 02/05/17 10:00 Dose: 1 patch Ferrous Sulfate (Feosol) 300 mg GT DAILY [facility] Last Admin: 02/06/17 09:52 Dose: 300 mg Piperacillin/Tazobactam/Dextrose (Zosyn 3.375gm Ivpb (Premix)) 50 mls @ 100 mls /hr IVPB Q8H-IV [facility] PRN Reason: Protocol Last Admin: 02/06/17 18:31 Dose: Not Given Vancomycin HCl 1,000 mg/ (Dextrose) 250 mls @ 200 mls/hr IVPB Q24H [facility] Last Admin: 02/06/17 16:02 Dose: 200 mls/hr Insulin Aspart (Novolog Vial Sliding Scale -) 1 vial SQ ACHS [facility] PRN Reason: Protocol Last Admin: 02/06/17 18:31 Dose: 2 units Insulin Detemir (Levemir Vial) 15 units SQ AM [facility] Last Admin: 02/06/17 06:25 Dose: 15 units Insulin Detemir (Levemir Vial) 5 units SQ HS [facility] Last Admin: 02/05/17 22:00 Dose: 5 units Miscellaneous (Duragesic Patch Waste) 1 each TD PRN PRN Last Admin: 02/05/17 11:00 Dose: 1 each Nystatin (Nystop Powder -) 1 applic TP BID [facility] Last Admin: 02/06/17 09:53 Dose: 1 applic Ranitidine HCl (Zantac Oral Solution -) 150 mg GT DAILY [facility] Last Admin: 02/06/17 09:52 Dose: 150 mg - Objective Vital Signs: Vital Signs Temperature 100.0 F H 02/06/17 17:21 Pulse Rate 98 H 02/06/17 17:21 Respiratory Rate 20 02/06/17 17:21 Blood Pressure 112/50 02/06/17 17:21 O2 Sat by Pulse Oximetry (%) 97 02/05/17 21:00 Constitutional: Yes: Well Nourished, No Distress, Calm Cardiovascular: Yes: Regular Rate and Rhythm Respiratory: Yes: Regular Gastrointestinal: Yes: Normal Bowel Sounds Genitourinary: Yes: Gonzales Present Musculoskeletal: Yes: WNL Labs: CBC, BMP 02/05/17 09:08 02/05/17 08:00 INR, PTT INR 0.94 (0.82-1.09) 01/26/17 16:32 Problem List - Problems (1) Decubitus ulcer Code(s): L89.90 - PRESSURE ULCER OF UNSPECIFIED SITE, UNSPECIFIED STAGE Qualifiers: Pressure ulcer location: sacral region Pressure ulcer stage: unspecified pressure ulcer stage Qualified Code(s): L89.159 - Pressure ulcer of sacral region, unspecified stage (2) Septic shock Assessment/Plan: 01/26/17 16:30 Urine - Urine - Catheterized Urine Culture - Final Proteus Mirabilis will adjust abx once seen by ID lactic acidosis improved stool for c diff ordered given diarrhea repeat labs ordered for today to see trend of WBC Code(s): A41.9 - SEPSIS, UNSPECIFIED ORGANISM; R65.21 - SEVERE SEPSIS WITH SEPTIC SHOCK (3) Type 2 diabetes mellitus with autonomic neuropathy Assessment/Plan: -A1c at 9.6 -endocrinology consult -insulin -BGM Code(s): E11.43 - TYPE 2 DIABETES W DIABETIC AUTONOMIC (POLY)NEUROPATHY (4) UTI (urinary tract infection) Assessment/Plan: 01/26/17 16:30 Urine - Urine - Catheterized Urine Culture - Final Proteus Mirabilis -IV abx -lactic acidosis improved -ID consult -Gonzales catheter -reculture pending Code(s): N39.0 - URINARY TRACT INFECTION, SITE NOT SPECIFIED Qualifiers: Urinary tract infection type: site unspecified Hematuria presence: without hematuria Qualified Code(s): N39.0 - Urinary tract infection, site not specified (5) Anemia Assessment/Plan: H/H stable Code(s): D64.9 - ANEMIA, UNSPECIFIED Qualifiers: Anemia type: iron deficiency Iron deficiency anemia type: unspecified iron deficiency Qualified Code(s): D50.9 - Iron deficiency anemia, unspecified Assessment/Plan see problem list
[2017-02-06] MEDS: ACETAMINOPHEN 650 MG SUPP.RECT PR PRN (22:58)
[2017-02-07] MEDS: PIPERACILLIN/TAZOB 3.375 GM 50 ML IVPB SCH ×3 (01:40→17:31)
[2017-02-07] MEDS: ACETAMINOPHEN 650 MG/20.3 ML ORAL SOLUTION (CUPS) PO PRN ×3 (01:45→21:52)
[2017-02-07] MEDS: INSULIN SLIDING SCALE (NOVOLOG) 1 VIAL SQ SCH ×4 (06:36→21:47)
[2017-02-07] MEDS: INSULIN DETEMIR 100 UNITS/ML MDV SQ SCH ×2 (06:36→21:49)
[2017-02-07] MEDS: ASCORBIC ACID 500 MG/5 ML UNIT DOSE CUP GT SCH ×3 (06:37→21:39)
[2017-02-07] MEDS ORDERED: PT OWN MED DRAWER 7, Y5N ONE ×5 (10:18→20:14)
[2017-02-07] MEDS: FERROUS SO4 300 MG/5 ML ORAL SOLN UNIT DOSE CUPS GT SCH (10:33)
[2017-02-07] MEDS: DOXAZOSIN MESYLATE 2 MG TABLET (FP) GT SCH (10:35)
[2017-02-07] MEDS: ESCITALOPRAM OXALATE 5 MG/5 ML GT SCH (10:35)
[2017-02-07] MEDS: RANITIDINE HCL 150 MG/10 ML UNIT-DOSE GT SCH (10:36)
[2017-02-07] MEDS: NYSTATIN POWDER 100,000 UNITS/GM - 15 GM TOPICAL POWDER TP SCH ×2 (10:38→21:39)
--- NOTE | 2017-02-07 12:42 | PN ---
Progress Note, Physician Chief Complaint: temp max in 101 on iv abx sleepy in bed - Current Medication List Current Medications: Active Medications Acetaminophen (Tylenol Oral Solution -) 650 mg PO Q6H PRN PRN Reason: FEVER OR PAIN Last Admin: 02/07/17 01:45 Dose: 650 mg Acetaminophen (Tylenol Suppository -) 650 mg [place] Q6H PRN PRN Reason: FEVER OR PAIN Last Admin: 02/06/17 22:58 Dose: 650 mg Ascorbic Acid (Vitamin C Oral Solution -) 500 mg GT TID [facility] Last Admin: 02/07/17 06:37 Dose: 500 mg Doxazosin Mesylate (Cardura -) 2 mg GT DAILY [facility] Last Admin: 02/07/17 10:35 Dose: 2 mg Escitalopram Oxalate (Lexapro Oral Solution -) 10 mg GT DAILY [facility] Last Admin: 02/07/17 10:35 Dose: 10 ml Fentanyl (Duragesic 12mcg Patch -) 1 patch TD Q72H [facility] Last Admin: 02/05/17 10:00 Dose: 1 patch Ferrous Sulfate (Feosol) 300 mg GT DAILY [facility] Last Admin: 02/07/17 10:33 Dose: 300 mg Piperacillin/Tazobactam/Dextrose (Zosyn 3.375gm Ivpb (Premix)) 50 mls @ 100 mls /hr IVPB Q8H-IV [facility] PRN Reason: Protocol Last Admin: 02/07/17 10:36 Dose: 100 mls/hr Vancomycin HCl 1,000 mg/ (Dextrose) 250 mls @ 200 mls/hr IVPB Q24H [facility] Last Admin: 02/06/17 16:02 Dose: 200 mls/hr Insulin Aspart (Novolog Vial Sliding Scale -) 1 vial SQ ACHS [facility] PRN Reason: Protocol Last Admin: 02/07/17 10:42 Dose: 2 units Insulin Detemir (Levemir Vial) 15 units SQ AM [facility] Last Admin: 02/07/17 06:36 Dose: 15 units Insulin Detemir (Levemir Vial) 5 units SQ HS [facility] Last Admin: 02/06/17 22:58 Dose: 5 units Miscellaneous (Duragesic Patch Waste) 1 each TD PRN PRN Last Admin: 02/05/17 11:00 Dose: 1 each Nystatin (Nystop Powder -) 1 applic TP BID [facility] Last Admin: 02/07/17 10:38 Dose: 1 applic Ranitidine HCl (Zantac Oral Solution -) 150 mg GT DAILY [facility] Last Admin: 02/07/17 10:36 Dose: 150 mg - Objective Vital Signs: Vital Signs Temperature 98.0 F 02/07/17 09:00 Pulse Rate 97 H 02/07/17 09:00 Respiratory Rate 22 02/07/17 09:00 Blood Pressure 131/66 02/07/17 09:00 O2 Sat by Pulse Oximetry (%) 100 02/07/17 09:00 Constitutional: Yes: Calm, Thin Cardiovascular: Yes: Regular Rate and Rhythm, S1, S2 Respiratory: Yes: Poor Air Entry Gastrointestinal: Yes: Normal Bowel Sounds, Soft Extremities: Yes: Other (s/p BKA) Labs: CBC, BMP 02/05/17 09:08 02/05/17 08:00 INR, PTT INR 0.94 (0.82-1.09) 01/26/17 16:32 Problem List - Problems (1) Fever Assessment/Plan: Microbiology 01/26/17 16:30 Urine - Urine - Catheterized Urine Culture - Final Proteus Mirabilis will adjust abx once seen by LUKE quach and noah stool negative for C Diff repeat cultures are pending Code(s): R50.9 - FEVER, UNSPECIFIED (2) Diabetes Assessment/Plan: bgm noted increase the night time insulin dose to 8 units will monitor Code(s): E11.9 - TYPE 2 DIABETES MELLITUS WITHOUT COMPLICATIONS Qualifiers: Diabetes mellitus type: type 2 Diabetes mellitus complication detail: with other skin ulcer (3) ARF (acute renal failure) Assessment/Plan: improved Code(s): N17.9 - ACUTE KIDNEY FAILURE, UNSPECIFIED (4) Hypernatremia Assessment/Plan: improved Code(s): E87.0 - HYPEROSMOLALITY AND HYPERNATREMIA (5) Anemia Assessment/Plan: iron panel noted anemia of chronic disease Code(s): D64.9 - ANEMIA, UNSPECIFIED Qualifiers: Anemia type: iron deficiency Iron deficiency anemia type: unspecified iron deficiency Qualified Code(s): D50.9 - Iron deficiency anemia, unspecified
[2017-02-07] MEDS: VANCOMYCIN 1,000 MG in DEXTROSE 5%-WATER - 250 ML IVPB SCH (14:06)
--- NOTE | 2017-02-07 14:27 | PN ---
Progress Note, Physician Chief Complaint: The patient is seen in her bed. Lathargic. Minimally responsive. Febrile. Tube feeding and IV abx infusing History of Present Illness: The patient is an 81F with a PMH of CVA, dementia, HTN, IDDM, HLD, ARF, thyroid dz, and anemia who presents to the ED via EMS from [facility] for a fever. The patient is nonverbal 2/2 to her dementia. ROS unable to be completed. Per halfway forms, she has a MRSA positive decubitus ulcer. Patient has had multiple admission in past. - Current Medication List Current Medications: Active Medications Acetaminophen (Tylenol Oral Solution -) 650 mg PO Q6H PRN PRN Reason: FEVER OR PAIN Last Admin: 02/07/17 14:03 Dose: 650 mg Acetaminophen (Tylenol Suppository -) 650 mg [place] Q6H PRN PRN Reason: FEVER OR PAIN Last Admin: 02/06/17 22:58 Dose: 650 mg Ascorbic Acid (Vitamin C Oral Solution -) 500 mg GT TID [facility] Last Admin: 02/07/17 14:04 Dose: 500 mg Doxazosin Mesylate (Cardura -) 2 mg GT DAILY [facility] Last Admin: 02/07/17 10:35 Dose: 2 mg Escitalopram Oxalate (Lexapro Oral Solution -) 10 mg GT DAILY [facility] Last Admin: 02/07/17 10:35 Dose: 10 ml Fentanyl (Duragesic 12mcg Patch -) 1 patch TD Q72H [facility] Last Admin: 02/05/17 10:00 Dose: 1 patch Ferrous Sulfate (Feosol) 300 mg GT DAILY [facility] Last Admin: 02/07/17 10:33 Dose: 300 mg Piperacillin/Tazobactam/Dextrose (Zosyn 3.375gm Ivpb (Premix)) 50 mls @ 100 mls /hr IVPB Q8H-IV [facility] PRN Reason: Protocol Last Admin: 02/07/17 10:36 Dose: 100 mls/hr Vancomycin HCl 1,000 mg/ (Dextrose) 250 mls @ 200 mls/hr IVPB Q24H [facility] Last Admin: 02/07/17 14:06 Dose: 200 mls/hr Insulin Aspart (Novolog Vial Sliding Scale -) 1 vial SQ ACHS [facility] PRN Reason: Protocol Last Admin: 02/07/17 10:42 Dose: 2 units Insulin Detemir (Levemir Vial) 15 units SQ AM [facility] Last Admin: 02/07/17 06:36 Dose: 15 units Insulin Detemir (Levemir Vial) 8 units SQ HS [facility] Miscellaneous (Duragesic Patch Waste) 1 each TD PRN PRN Last Admin: 02/05/17 11:00 Dose: 1 each Nystatin (Nystop Powder -) 1 applic TP BID [facility] Last Admin: 02/07/17 10:38 Dose: 1 applic Ranitidine HCl (Zantac Oral Solution -) 150 mg GT DAILY [facility] Last Admin: 02/07/17 10:36 Dose: 150 mg - Objective Vital Signs: Vital Signs Temperature 102.8 F H 02/07/17 12:54 Pulse Rate 97 H 02/07/17 09:00 Respiratory Rate 22 02/07/17 09:00 Blood Pressure 131/66 02/07/17 09:00 O2 Sat by Pulse Oximetry (%) 100 02/07/17 09:00 Neck: Yes: Supple Cardiovascular: Yes: S1, S2 Respiratory: Yes: CTA Bilaterally, Diminished Gastrointestinal: Yes: Normal Bowel Sounds, Soft, Other (G tube in pace, feeding in prgress.) Extremities: Yes: Amputation (Elvin. BKA) Labs: CBC, BMP 02/05/17 09:08 02/05/17 08:00 INR, PTT INR 0.94 (0.82-1.09) 01/26/17 16:32 Problem List - Problems (1) Decubitus ulcer Code(s): L89.90 - PRESSURE ULCER OF UNSPECIFIED SITE, UNSPECIFIED STAGE Qualifiers: Pressure ulcer location: sacral region Pressure ulcer stage: unspecified pressure ulcer stage Qualified Code(s): L89.159 - Pressure ulcer of sacral region, unspecified stage (2) Type 2 diabetes mellitus with autonomic neuropathy Code(s): E11.43 - TYPE 2 DIABETES W DIABETIC AUTONOMIC (POLY)NEUROPATHY (3) ARF (acute renal failure) Code(s): N17.9 - ACUTE KIDNEY FAILURE, UNSPECIFIED (4) Dehydration Code(s): E86.0 - DEHYDRATION (5) Dementia Code(s): F03.90 - UNSPECIFIED DEMENTIA WITHOUT BEHAVIORAL DISTURBANCE (6) Fever Code(s): R50.9 - FEVER, UNSPECIFIED (7) Type 2 diabetes mellitus with other diabetic kidney complication Code(s): E11.29 - TYPE 2 DIABETES MELLITUS W OTH DIABETIC KIDNEY COMPLICATION Assessment/Plan The patient is an 81F with a PMH of CVA, dementia, HTN, IDDM, HLD, ARF, thyroid dz, and anemia who presents to the ED via EMS from [facility] for a fever. The patient is nonverbal 2/2 to her dementia. ROS unable to be completed. Per halfway forms, she has a MRSA. The patient has Hypernatremia. and hemodynamic GIANNI. Continues to be febrile, with resultant excessive free water loss. Should continue free water supplements. ABX to continue. Will order labs for tomorrow. Thank you.
--- NOTE | 2017-02-07 15:14 | PN ---
Progress Note, Physician History of Present Illness: Awake, non verbal Remains febrile 102+ despite switch to vancomycin / zosyn Stage IV sacral decubitus deep but no purulence noted - Current Medication List Current Medications: Active Medications Acetaminophen (Tylenol Oral Solution -) 650 mg PO Q6H PRN PRN Reason: FEVER OR PAIN Last Admin: 02/07/17 14:03 Dose: 650 mg Acetaminophen (Tylenol Suppository -) 650 mg [place] Q6H PRN PRN Reason: FEVER OR PAIN Last Admin: 02/06/17 22:58 Dose: 650 mg Ascorbic Acid (Vitamin C Oral Solution -) 500 mg GT TID [facility] Last Admin: 02/07/17 14:04 Dose: 500 mg Doxazosin Mesylate (Cardura -) 2 mg GT DAILY [facility] Last Admin: 02/07/17 10:35 Dose: 2 mg Escitalopram Oxalate (Lexapro Oral Solution -) 10 mg GT DAILY [facility] Last Admin: 02/07/17 10:35 Dose: 10 ml Fentanyl (Duragesic 12mcg Patch -) 1 patch TD Q72H [facility] Last Admin: 02/05/17 10:00 Dose: 1 patch Ferrous Sulfate (Feosol) 300 mg GT DAILY [facility] Last Admin: 02/07/17 10:33 Dose: 300 mg Piperacillin/Tazobactam/Dextrose (Zosyn 3.375gm Ivpb (Premix)) 50 mls @ 100 mls /hr IVPB Q8H-IV [facility] PRN Reason: Protocol Last Admin: 02/07/17 10:36 Dose: 100 mls/hr Vancomycin HCl 1,000 mg/ (Dextrose) 250 mls @ 200 mls/hr IVPB Q24H [facility] Last Admin: 02/07/17 14:06 Dose: 200 mls/hr Insulin Aspart (Novolog Vial Sliding Scale -) 1 vial SQ ACHS [facility] PRN Reason: Protocol Last Admin: 02/07/17 10:42 Dose: 2 units Insulin Detemir (Levemir Vial) 15 units SQ AM [facility] Last Admin: 02/07/17 06:36 Dose: 15 units Insulin Detemir (Levemir Vial) 8 units SQ HS [facility] Miscellaneous (Duragesic Patch Waste) 1 each TD PRN PRN Last Admin: 02/05/17 11:00 Dose: 1 each Nystatin (Nystop Powder -) 1 applic TP BID [facility] Last Admin: 02/07/17 10:38 Dose: 1 applic Ranitidine HCl (Zantac Oral Solution -) 150 mg GT DAILY [facility] Last Admin: 02/07/17 10:36 Dose: 150 mg - Objective Vital Signs: Vital Signs Temperature 101.2 F H 02/07/17 15:06 Pulse Rate 107 H 02/07/17 15:06 Respiratory Rate 20 02/07/17 15:06 Blood Pressure 111/54 02/07/17 15:06 O2 Sat by Pulse Oximetry (%) 100 02/07/17 09:00 Constitutional: Yes: No Distress Eyes: Yes: Conjunctiva Clear Cardiovascular: Yes: Regular Rate and Rhythm, Murmur, S1, S2 Respiratory: Yes: CTA Bilaterally Gastrointestinal: Yes: Normal Bowel Sounds, Soft. No: Tenderness Extremities: Yes: Other (S/P bilateral BKAs- sites well-healed) Labs: CBC, BMP 02/05/17 09:08 02/05/17 08:00 INR, PTT INR 0.94 (0.82-1.09) 01/26/17 16:32 Assessment/Plan Sepsis ? source ? decubitus Recurrent high grade fever Hx resistant pathogens Dementia Repeat cultures pending Continue empiric vanco/ zosyn Contact precautions
--- NOTE | 2017-02-07 15:41 | PN ---
Progress Note, Physician History of Present Illness: pulmonary non-verbal,-resp distress,febrile - Current Medication List Current Medications: Active Medications Acetaminophen (Tylenol Oral Solution -) 650 mg PO Q6H PRN PRN Reason: FEVER OR PAIN Last Admin: 02/07/17 14:03 Dose: 650 mg Acetaminophen (Tylenol Suppository -) 650 mg [place] Q6H PRN PRN Reason: FEVER OR PAIN Last Admin: 02/06/17 22:58 Dose: 650 mg Ascorbic Acid (Vitamin C Oral Solution -) 500 mg GT TID [facility] Last Admin: 02/07/17 14:04 Dose: 500 mg Doxazosin Mesylate (Cardura -) 2 mg GT DAILY [facility] Last Admin: 02/07/17 10:35 Dose: 2 mg Escitalopram Oxalate (Lexapro Oral Solution -) 10 mg GT DAILY [facility] Last Admin: 02/07/17 10:35 Dose: 10 ml Fentanyl (Duragesic 12mcg Patch -) 1 patch TD Q72H [facility] Last Admin: 02/05/17 10:00 Dose: 1 patch Ferrous Sulfate (Feosol) 300 mg GT DAILY [facility] Last Admin: 02/07/17 10:33 Dose: 300 mg Piperacillin/Tazobactam/Dextrose (Zosyn 3.375gm Ivpb (Premix)) 50 mls @ 100 mls /hr IVPB Q8H-IV [facility] PRN Reason: Protocol Last Admin: 02/07/17 10:36 Dose: 100 mls/hr Vancomycin HCl 1,000 mg/ (Dextrose) 250 mls @ 200 mls/hr IVPB Q24H [facility] Last Admin: 02/07/17 14:06 Dose: 200 mls/hr Insulin Aspart (Novolog Vial Sliding Scale -) 1 vial SQ ACHS [facility] PRN Reason: Protocol Last Admin: 02/07/17 10:42 Dose: 2 units Insulin Detemir (Levemir Vial) 15 units SQ AM [facility] Last Admin: 02/07/17 06:36 Dose: 15 units Insulin Detemir (Levemir Vial) 8 units SQ HS [facility] Miscellaneous (Duragesic Patch Waste) 1 each TD PRN PRN Last Admin: 02/05/17 11:00 Dose: 1 each Nystatin (Nystop Powder -) 1 applic TP BID [facility] Last Admin: 02/07/17 10:38 Dose: 1 applic Ranitidine HCl (Zantac Oral Solution -) 150 mg GT DAILY [facility] Last Admin: 02/07/17 10:36 Dose: 150 mg - Objective Vital Signs: Vital Signs Temperature 101.2 F H 02/07/17 15:06 Pulse Rate 107 H 02/07/17 15:06 Respiratory Rate 20 02/07/17 15:06 Blood Pressure 111/54 02/07/17 15:06 O2 Sat by Pulse Oximetry (%) 100 02/07/17 09:00 Constitutional: Yes: Well Nourished Eyes: Yes: WNL, Occular Prosthesis HENT: Yes: Other Cardiovascular: Yes: Regular Rate and Rhythm, S1, S2 Respiratory: Yes: Diminished (poor inspiratory effort) Gastrointestinal: Yes: Normal Bowel Sounds, Soft Extremities: Yes: Amputation (jonh bka) Labs: CBC, BMP Assessment/Plan A/P UTI Sacral Decubitus Ulcer h/o CVA HTN DM Hyperlipidemia Dementia h/o Bilateral BKA - antibiotics per ID - monitor fever curve, WBC trend - wound care - enteral feeds - aspiration precautions - DVT prophylaxis DR CONNER Problem List - Problems (1) Diabetes Code(s): E11.9 - TYPE 2 DIABETES MELLITUS WITHOUT COMPLICATIONS Qualifiers: Diabetes mellitus type: type 2 Diabetes mellitus complication detail: with other skin ulcer (2) HTN (hypertension) Code(s): I10 - ESSENTIAL (PRIMARY) HYPERTENSION Qualifiers: Hypertension type: essential hypertension Qualified Code(s): I10 - Essential (primary) hypertension (3) ARF (acute renal failure) Code(s): N17.9 - ACUTE KIDNEY FAILURE, UNSPECIFIED (4) Lactic acidosis Code(s): E87.2 - ACIDOSIS (5) UTI (urinary tract infection) Code(s): N39.0 - URINARY TRACT INFECTION, SITE NOT SPECIFIED Qualifiers: Urinary tract infection type: site unspecified Hematuria presence: without hematuria Qualified Code(s): N39.0 - Urinary tract infection, site not specified (6) Decubitus ulcer Code(s): L89.90 - PRESSURE ULCER OF UNSPECIFIED SITE, UNSPECIFIED STAGE Qualifiers: Pressure ulcer location: sacral region Pressure ulcer stage: unspecified pressure ulcer stage Qualified Code(s): L89.159 - Pressure ulcer of sacral region, unspecified stage (7) Severe sepsis Code(s): A41.9 - SEPSIS, UNSPECIFIED ORGANISM; R65.20 - SEVERE SEPSIS WITHOUT SEPTIC SHOCK
[2017-02-07] MEDS ORDERED: INSULIN (NOVOLOG) ASPART 100 UNITS/ML 10ML VIAL ONE (17:00)
[2017-02-08] MEDS: PIPERACILLIN/TAZOB 3.375 GM 50 ML IVPB SCH ×2 (01:17→10:55)
[2017-02-08] MEDS: ACETAMINOPHEN 650 MG/20.3 ML ORAL SOLUTION (CUPS) PO PRN ×2 (03:57→15:05)
[2017-02-08] MEDS: ASCORBIC ACID 500 MG/5 ML UNIT DOSE CUP GT SCH ×3 (05:40→21:31)
[2017-02-08] MEDS: INSULIN DETEMIR 100 UNITS/ML MDV SQ SCH ×2 (06:21→21:24)
[2017-02-08] MEDS: INSULIN SLIDING SCALE (NOVOLOG) 1 VIAL SQ SCH ×4 (06:23→21:24)
[2017-02-08 08:32] LABS: MCH 32.1 pg (25.7-33.7); MCHC 31.9 g/dl (32.0-36.0); MEAN CELL VOLUME 100.4 fl (80-96); MEAN PLT VOLUME 8.3 fl (7.5-11.1); PLATELET COUNT 303 K/MM3 (134-434); RDW 20.2 % (11.6-15.6); WHITE BLOOD COUNT 9.4 K/mm3 (4.0-10.0)
[2017-02-08] MEDS: fentaNYL 12mcg/hr PATCH.TD72 TD SCH (08:39)
[2017-02-08] MEDS: FENTANYL PATCH WASTE TD PRN (08:42)
--- NOTE | 2017-02-08 08:50 | PN ---
Progress Note, Physician - Current Medication List Current Medications: Active Medications Acetaminophen (Tylenol Oral Solution -) 650 mg PO Q6H PRN PRN Reason: FEVER OR PAIN Last Admin: 02/08/17 03:57 Dose: 650 mg Acetaminophen (Tylenol Suppository -) 650 mg [place] Q6H PRN PRN Reason: FEVER OR PAIN Last Admin: 02/06/17 22:58 Dose: 650 mg Ascorbic Acid (Vitamin C Oral Solution -) 500 mg GT TID [facility] Last Admin: 02/08/17 05:40 Dose: 500 mg Doxazosin Mesylate (Cardura -) 2 mg GT DAILY [facility] Last Admin: 02/07/17 10:35 Dose: 2 mg Escitalopram Oxalate (Lexapro Oral Solution -) 10 mg GT DAILY [facility] Last Admin: 02/07/17 10:35 Dose: 10 ml Fentanyl (Duragesic 12mcg Patch -) 1 patch TD Q72H [facility] Last Admin: 02/08/17 08:39 Dose: 1 patch Ferrous Sulfate (Feosol) 300 mg GT DAILY [facility] Last Admin: 02/07/17 10:33 Dose: 300 mg Piperacillin/Tazobactam/Dextrose (Zosyn 3.375gm Ivpb (Premix)) 50 mls @ 100 mls /hr IVPB Q8H-IV [facility] PRN Reason: Protocol Last Admin: 02/08/17 01:17 Dose: 100 mls/hr Vancomycin HCl 1,000 mg/ (Dextrose) 250 mls @ 200 mls/hr IVPB Q24H [facility] Last Admin: 02/07/17 14:06 Dose: 200 mls/hr Insulin Aspart (Novolog Vial Sliding Scale -) 1 vial SQ ACHS [facility] PRN Reason: Protocol Last Admin: 02/08/17 06:23 Dose: 5 units Insulin Detemir (Levemir Vial) 15 units SQ AM [facility] Last Admin: 02/08/17 06:21 Dose: 15 units Insulin Detemir (Levemir Vial) 8 units SQ HS [facility] Last Admin: 02/07/17 21:49 Dose: 8 units Miscellaneous (Duragesic Patch Waste) 1 each TD PRN PRN Last Admin: 02/08/17 08:42 Dose: 1 each Nystatin (Nystop Powder -) 1 applic TP BID [facility] Last Admin: 02/07/17 21:39 Dose: 1 applic Ranitidine HCl (Zantac Oral Solution -) 150 mg GT DAILY [facility] Last Admin: 02/07/17 10:36 Dose: 150 mg - Objective Vital Signs: Vital Signs Temperature 100.6 F H 02/08/17 05:52 Pulse Rate 89 02/08/17 05:52 Respiratory Rate 20 02/08/17 05:52 Blood Pressure 100/56 02/08/17 05:52 O2 Sat by Pulse Oximetry (%) 100 02/07/17 21:00 Labs: CBC, BMP 02/08/17 07:00 INR, PTT INR 0.94 (0.82-1.09) 01/26/17 16:32 Assessment/Plan Problems (1) Fever Assessment/Plan: Microbiology 01/26/17 16:30 Urine - Urine - Catheterized Urine Culture - Final Proteus Mirabilis will adjust abx once seen by LUKE quach and noah stool negative for C Diff repeat cultures are pending Code(s): R50.9 - FEVER, UNSPECIFIED (2) Diabetes Assessment/Plan: bgm noted increase the night time insulin dose to 8 units will monitor Code(s): E11.9 - TYPE 2 DIABETES MELLITUS WITHOUT COMPLICATIONS Qualifiers: Diabetes mellitus type: type 2 Diabetes mellitus complication detail: with other skin ulcer (3) ARF (acute renal failure) Assessment/Plan: improved Code(s): N17.9 - ACUTE KIDNEY FAILURE, UNSPECIFIED (4) Hypernatremia Assessment/Plan: improved Code(s): E87.0 - HYPEROSMOLALITY AND HYPERNATREMIA (5) Anemia Assessment/Plan: iron panel noted anemia of chronic disease Code(s): D64.9 - ANEMIA, UNSPECIFIED Qualifiers: Anemia type: iron deficiency Iron deficiency anemia type: unspecified iron deficiency Qualified Code(s): D50.9 - Iron deficiency anemia, unspecified
[2017-02-08 09:11] LABS: ALBUMIN 1.6 g/dl (3.4-5.0); ALK PHOS 131 U/L (45-117); ANION GAP 11 (8-16); BILIRUBIN,TOTAL 0.4 mg/dL (0.2-1.0); CO2 22 mmol/L (21-32); GLUCOSE,RANDOM 244 mg/dL (74-106); SGOT/AST 19 U/L (15-37); SGPT/ALT 17 U/L (12-78); TOT PROT 6.8 g/dl (6.4-8.2)
[2017-02-08] MEDS ORDERED: PT OWN MED DRAWER 7, Y5N ONE ×4 (10:46→21:27)
[2017-02-08] MEDS: FERROUS SO4 300 MG/5 ML ORAL SOLN UNIT DOSE CUPS GT SCH (10:53)
[2017-02-08] MEDS: DOXAZOSIN MESYLATE 2 MG TABLET (FP) GT SCH (10:53)
[2017-02-08] MEDS: ESCITALOPRAM OXALATE 5 MG/5 ML GT SCH (10:53)
[2017-02-08] MEDS: RANITIDINE HCL 150 MG/10 ML UNIT-DOSE GT SCH (10:55)
[2017-02-08] MEDS: NYSTATIN POWDER 100,000 UNITS/GM - 15 GM TOPICAL POWDER TP SCH ×2 (10:55→21:36)
[2017-02-08 11:59] LABS: TOTAL CELLS COUNTED 100
[2017-02-08 12:00] LABS: PLATELET ESTIMATE ADEQUATE
[2017-02-08 12:01] LABS: ANISOCYTOSIS 2+; MACROCYTOSIS 1+; MICROCYTOSIS 1+
--- NOTE | 2017-02-08 12:34 | PN ---
Progress Note, Physician History of Present Illness: Awake, non verbal temps lower grade Repeat cultures prelim negative Stage IV sacral decubitus deep but no purulence noted - Current Medication List Current Medications: Active Medications Acetaminophen (Tylenol Oral Solution -) 650 mg PO Q6H PRN PRN Reason: FEVER OR PAIN Last Admin: 02/08/17 03:57 Dose: 650 mg Acetaminophen (Tylenol Suppository -) 650 mg [place] Q6H PRN PRN Reason: FEVER OR PAIN Last Admin: 02/06/17 22:58 Dose: 650 mg Ascorbic Acid (Vitamin C Oral Solution -) 500 mg GT TID [facility] Last Admin: 02/08/17 05:40 Dose: 500 mg Doxazosin Mesylate (Cardura -) 2 mg GT DAILY [facility] Last Admin: 02/08/17 10:53 Dose: 2 mg Escitalopram Oxalate (Lexapro Oral Solution -) 10 mg GT DAILY [facility] Last Admin: 02/08/17 10:53 Dose: 10 ml Fentanyl (Duragesic 12mcg Patch -) 1 patch TD Q72H [facility] Last Admin: 02/08/17 08:39 Dose: 1 patch Ferrous Sulfate (Feosol) 300 mg GT DAILY [facility] Last Admin: 02/08/17 10:53 Dose: 300 mg Piperacillin/Tazobactam/Dextrose (Zosyn 3.375gm Ivpb (Premix)) 50 mls @ 100 mls /hr IVPB Q8H-IV [facility] PRN Reason: Protocol Last Admin: 02/08/17 10:55 Dose: 100 mls/hr Vancomycin HCl 1,000 mg/ (Dextrose) 250 mls @ 200 mls/hr IVPB Q24H [facility] Last Admin: 02/07/17 14:06 Dose: 200 mls/hr Insulin Aspart (Novolog Vial Sliding Scale -) 1 vial SQ ACHS [facility] PRN Reason: Protocol Last Admin: 02/08/17 11:39 Dose: Not Given Insulin Detemir (Levemir Vial) 15 units SQ AM [facility] Last Admin: 02/08/17 06:21 Dose: 15 units Insulin Detemir (Levemir Vial) 8 units SQ HS [facility] Last Admin: 02/07/17 21:49 Dose: 8 units Miscellaneous (Duragesic Patch Waste) 1 each TD PRN PRN Last Admin: 02/08/17 08:42 Dose: 1 each Nystatin (Nystop Powder -) 1 applic TP BID [facility] Last Admin: 02/08/17 10:55 Dose: Not Given Ranitidine HCl (Zantac Oral Solution -) 150 mg GT DAILY [facility] Last Admin: 02/08/17 10:55 Dose: 150 mg - Objective Vital Signs: Vital Signs Temperature 100.0 F H 02/08/17 10:15 Pulse Rate 87 02/08/17 10:15 Respiratory Rate 22 02/08/17 10:15 Blood Pressure 102/52 02/08/17 10:15 O2 Sat by Pulse Oximetry (%) 100 02/08/17 09:00 Constitutional: Yes: No Distress, Cachectic Eyes: Yes: Conjunctiva Clear Cardiovascular: Yes: Regular Rate and Rhythm, Murmur, S1, S2 Respiratory: Yes: Diminished Gastrointestinal: Yes: Normal Bowel Sounds, Soft. No: Tenderness Extremities: Yes: Other (S/P bilateral BKA) Integumentary: Yes: Other (stage IV sacral decubitus) Labs: CBC, BMP 02/08/17 07:00 02/08/17 07:00 INR, PTT INR 0.94 (0.82-1.09) 01/26/17 16:32 Assessment/Plan Sepsis ? source ? decubitus Recurrent high grade fever Hx resistant pathogens Dementia Repeat cultures pending Continue empiric vanco/ zosyn Contact precautions
[2017-02-08] MEDS: VANCOMYCIN 1,000 MG in DEXTROSE 5%-WATER - 250 ML IVPB SCH (13:37)
[2017-02-08] MEDS ORDERED: INSULIN (NOVOLOG) ASPART 100 UNITS/ML 10ML VIAL ONE (16:43)
[2017-02-09] MEDS ORDERED: INSULIN (NOVOLOG) ASPART 100 UNITS/ML 10ML VIAL ONE (05:23)
[2017-02-09] MEDS: ASCORBIC ACID 500 MG/5 ML UNIT DOSE CUP GT SCH ×3 (05:37→23:00)
[2017-02-09] MEDS: INSULIN DETEMIR 100 UNITS/ML MDV SQ SCH ×2 (06:14→23:01)
[2017-02-09] MEDS: INSULIN SLIDING SCALE (NOVOLOG) 1 VIAL SQ SCH ×4 (06:14→23:01)
--- NOTE | 2017-02-09 09:51 | PN ---
Progress Note, Physician History of Present Illness: PEG REINSERTED - Current Medication List Current Medications: Active Medications Acetaminophen (Tylenol Oral Solution -) 650 mg PO Q6H PRN PRN Reason: FEVER OR PAIN Last Admin: 02/08/17 15:05 Dose: 650 mg Acetaminophen (Tylenol Suppository -) 650 mg [place] Q6H PRN PRN Reason: FEVER OR PAIN Last Admin: 02/06/17 22:58 Dose: 650 mg Ascorbic Acid (Vitamin C Oral Solution -) 500 mg GT TID [facility] Last Admin: 02/09/17 05:37 Dose: 500 mg Doxazosin Mesylate (Cardura -) 2 mg GT DAILY [facility] Last Admin: 02/08/17 10:53 Dose: 2 mg Escitalopram Oxalate (Lexapro Oral Solution -) 10 mg GT DAILY [facility] Last Admin: 02/08/17 10:53 Dose: 10 ml Fentanyl (Duragesic 12mcg Patch -) 1 patch TD Q72H [facility] Last Admin: 02/08/17 08:39 Dose: 1 patch Ferrous Sulfate (Feosol) 300 mg GT DAILY [facility] Last Admin: 02/08/17 10:53 Dose: 300 mg Insulin Aspart (Novolog Vial Sliding Scale -) 1 vial SQ ACHS [facility] PRN Reason: Protocol Last Admin: 02/09/17 06:14 Dose: 2 units Insulin Detemir (Levemir Vial) 15 units SQ AM [facility] Last Admin: 02/09/17 06:14 Dose: 15 units Insulin Detemir (Levemir Vial) 8 units SQ HS [facility] Last Admin: 02/08/17 21:24 Dose: 8 units Miscellaneous (Duragesic Patch Waste) 1 each TD PRN PRN Last Admin: 02/08/17 08:42 Dose: 1 each Nystatin (Nystop Powder -) 1 applic TP BID [facility] Last Admin: 02/08/17 21:36 Dose: 1 applic Ranitidine HCl (Zantac Oral Solution -) 150 mg GT DAILY [facility] Last Admin: 02/08/17 10:55 Dose: 150 mg - Objective Vital Signs: Vital Signs Temperature 100.2 F H 02/09/17 05:00 Pulse Rate 100 H 02/09/17 05:00 Respiratory Rate 20 02/09/17 05:00 Blood Pressure 126/68 02/09/17 05:00 O2 Sat by Pulse Oximetry (%) 100 02/08/17 21:00 Cardiovascular: Yes: S1, S2 Respiratory: Yes: Regular, CTA Bilaterally Gastrointestinal: Yes: Normal Bowel Sounds, Soft Labs: CBC, BMP 02/08/17 07:00 02/08/17 07:00 INR, PTT INR 0.94 (0.82-1.09) 01/26/17 16:32 Assessment/Plan Problems (1) Fever Assessment/Plan: Microbiology 01/26/17 16:30 Urine - Urine - Catheterized Urine Culture - Final Proteus Mirabilis will adjust abx once seen by ID OFF vanco and zosyn--will d/w id stool negative for C Diff repeat cultures are pending Code(s): R50.9 - FEVER, UNSPECIFIED (2) Diabetes Assessment/Plan: bgm noted increase the night time insulin dose to 8 units will monitor Code(s): E11.9 - TYPE 2 DIABETES MELLITUS WITHOUT COMPLICATIONS Qualifiers: Diabetes mellitus type: type 2 Diabetes mellitus complication detail: with other skin ulcer (3) ARF (acute renal failure) Assessment/Plan: improved Code(s): N17.9 - ACUTE KIDNEY FAILURE, UNSPECIFIED (4) Hypernatremia Assessment/Plan: improved Code(s): E87.0 - HYPEROSMOLALITY AND HYPERNATREMIA (5) Anemia Assessment/Plan: iron panel noted anemia of chronic disease Code(s): D64.9 - ANEMIA, UNSPECIFIED Qualifiers: Anemia type: iron deficiency Iron deficiency anemia type: unspecified iron deficiency Qualified Code(s): D50.9 - Iron deficiency anemia, unspecified
[2017-02-09] MEDS ORDERED: PT OWN MED DRAWER 7, Y5N ONE ×2 (11:00→13:54)
--- NOTE | 2017-02-09 11:13 | PN ---
Progress Note (short form) - Note Progress Note: PULMONARY AFEBRILE/NONVERBAL AWAKE PALE/ANICTERIC DIMINISHED BREATH SOUNDS BASES DIFFUSE PRECORDIAL SYSTOLIC MURMUR BS+ SOFT B/L BKA LABS/MEDS/NOTES/IMAGING/MICRO NOTED URINE : PROTEUS CXR ELEVATED RIGHT ANGELIKA/NO PNEUMONIA UTI RESOLVED Severe Sepsis resolved Lactic Acidosis resolved Acute Kidney Injury B/L BKA HTN DM Advanced Dementia ABX completed Monitor urine output, creatinine O2 to keep Spo2 >90% VTE prophylaxis/glycemic control DNR/DNI R KEVON VERMA
[2017-02-09] MEDS: RANITIDINE HCL 150 MG/10 ML UNIT-DOSE GT SCH (11:18)
[2017-02-09] MEDS: ACETAMINOPHEN 650 MG/20.3 ML ORAL SOLUTION (CUPS) PO PRN ×2 (11:18→23:00)
[2017-02-09] MEDS: FERROUS SO4 300 MG/5 ML ORAL SOLN UNIT DOSE CUPS GT SCH (11:18)
[2017-02-09] MEDS: ESCITALOPRAM OXALATE 5 MG/5 ML GT SCH (11:19)
[2017-02-09] MEDS: DOXAZOSIN MESYLATE 2 MG TABLET (FP) GT SCH (11:20)
[2017-02-09] MEDS: NYSTATIN POWDER 100,000 UNITS/GM - 15 GM TOPICAL POWDER TP SCH ×2 (11:20→23:02)
[2017-02-10] MEDS: INSULIN SLIDING SCALE (NOVOLOG) 1 VIAL SQ SCH ×4 (06:32→22:15)
[2017-02-10] MEDS: INSULIN DETEMIR 100 UNITS/ML MDV SQ SCH ×2 (06:34→22:15)
[2017-02-10] MEDS: ASCORBIC ACID 500 MG/5 ML UNIT DOSE CUP GT SCH ×3 (06:42→22:16)
--- NOTE | 2017-02-10 10:25 | PN ---
Progress Note (short form) - Note Progress Note: PULMONARY Pt nonverbal, febrile this AM. Last Vital Signs Temp Pulse Resp BP Pulse Ox 100.9 F H 101 H 20 101/53 98 02/10/17 06:00 02/10/17 06:00 02/10/17 06:00 02/10/17 06:00 02/09/17 11:05 Gen: nonverbal Heart: RRR Lung: decreased breath sounds at the bases Abd: soft, nontender Ext: no edema, bilateral BKA CBC, BMP 02/08/17 07:00 02/08/17 07:00 Active Medications Acetaminophen (Tylenol Oral Solution -) 650 mg PO Q6H PRN PRN Reason: FEVER OR PAIN Last Admin: 02/09/17 23:00 Dose: 650 mg Acetaminophen (Tylenol Suppository -) 650 mg [place] Q6H PRN PRN Reason: FEVER OR PAIN Last Admin: 02/06/17 22:58 Dose: 650 mg Ascorbic Acid (Vitamin C Oral Solution -) 500 mg GT TID [facility] Last Admin: 02/10/17 06:42 Dose: 500 mg Doxazosin Mesylate (Cardura -) 2 mg GT DAILY [facility] Last Admin: 02/09/17 11:20 Dose: 2 mg Escitalopram Oxalate (Lexapro Oral Solution -) 10 mg GT DAILY [facility] Last Admin: 02/09/17 11:19 Dose: 10 ml Fentanyl (Duragesic 12mcg Patch -) 1 patch TD Q72H [facility] Last Admin: 02/08/17 08:39 Dose: 1 patch Ferrous Sulfate (Feosol) 300 mg GT DAILY [facility] Last Admin: 02/09/17 11:18 Dose: 300 mg Insulin Aspart (Novolog Vial Sliding Scale -) 1 vial SQ ACHS [facility] PRN Reason: Protocol Last Admin: 02/10/17 06:32 Dose: Not Given Insulin Detemir (Levemir Vial) 15 units SQ AM [facility] Last Admin: 02/10/17 06:34 Dose: 15 units Insulin Detemir (Levemir Vial) 8 units SQ HS [facility] Last Admin: 02/09/17 23:01 Dose: 8 units Miscellaneous (Duragesic Patch Waste) 1 each TD PRN PRN Last Admin: 02/08/17 08:42 Dose: 1 each Nystatin (Nystop Powder -) 1 applic TP BID [facility] Last Admin: 02/09/17 23:02 Dose: 1 applic Ranitidine HCl (Zantac Oral Solution -) 150 mg GT DAILY [facility] Last Admin: 02/09/17 11:18 Dose: 150 mg A/P UTI Sacral Decubitus Ulcer h/o CVA HTN DM Hyperlipidemia Dementia h/o Bilateral BKA - antibiotics per ID - f/u pending cultures - monitor fever curve, WBC trend - wound care - enteral feeds - aspiration precautions - DVT prophylaxis - poor overall prognosis, consider palliative care Problem List - Problems (1) Diabetes Code(s): E11.9 - TYPE 2 DIABETES MELLITUS WITHOUT COMPLICATIONS Qualifiers: Diabetes mellitus type: type 2 Diabetes mellitus complication detail: with other skin ulcer (2) HTN (hypertension) Code(s): I10 - ESSENTIAL (PRIMARY) HYPERTENSION Qualifiers: Hypertension type: essential hypertension Qualified Code(s): I10 - Essential (primary) hypertension (3) ARF (acute renal failure) Code(s): N17.9 - ACUTE KIDNEY FAILURE, UNSPECIFIED (4) Lactic acidosis Code(s): E87.2 - ACIDOSIS (5) UTI (urinary tract infection) Code(s): N39.0 - URINARY TRACT INFECTION, SITE NOT SPECIFIED Qualifiers: Urinary tract infection type: site unspecified Hematuria presence: without hematuria Qualified Code(s): N39.0 - Urinary tract infection, site not specified (6) Decubitus ulcer Code(s): L89.90 - PRESSURE ULCER OF UNSPECIFIED SITE, UNSPECIFIED STAGE Qualifiers: Pressure ulcer location: sacral region Pressure ulcer stage: unspecified pressure ulcer stage Qualified Code(s): L89.159 - Pressure ulcer of sacral region, unspecified stage (7) Severe sepsis Code(s): A41.9 - SEPSIS, UNSPECIFIED ORGANISM; R65.20 - SEVERE SEPSIS WITHOUT SEPTIC SHOCK
[2017-02-10] MEDS ORDERED: PT OWN MED DRAWER 7, Y5N ONE ×3 (11:06→21:41)
[2017-02-10] MEDS: DOXAZOSIN MESYLATE 2 MG TABLET (FP) GT SCH (11:11)
[2017-02-10] MEDS: RANITIDINE HCL 150 MG/10 ML UNIT-DOSE GT SCH (11:12)
[2017-02-10] MEDS: ESCITALOPRAM OXALATE 5 MG/5 ML GT SCH (11:12)
[2017-02-10] MEDS: FERROUS SO4 300 MG/5 ML ORAL SOLN UNIT DOSE CUPS GT SCH (11:12)
[2017-02-10] MEDS: NYSTATIN POWDER 100,000 UNITS/GM - 15 GM TOPICAL POWDER TP SCH ×2 (11:14→22:16)
--- NOTE | 2017-02-10 11:22 | PN ---
Progress Note, Physician History of Present Illness: Awake, non verbal. No acute distress Temps lower grade WBC WNL Repeat urine c/s ESBL Stage IV sacral decubitus deep but no purulence noted - Current Medication List Current Medications: Active Medications Acetaminophen (Tylenol Oral Solution -) 650 mg PO Q6H PRN PRN Reason: FEVER OR PAIN Last Admin: 02/09/17 23:00 Dose: 650 mg Acetaminophen (Tylenol Suppository -) 650 mg [place] Q6H PRN PRN Reason: FEVER OR PAIN Last Admin: 02/06/17 22:58 Dose: 650 mg Ascorbic Acid (Vitamin C Oral Solution -) 500 mg GT TID [facility] Last Admin: 02/10/17 06:42 Dose: 500 mg Doxazosin Mesylate (Cardura -) 2 mg GT DAILY [facility] Last Admin: 02/10/17 11:11 Dose: 2 mg Escitalopram Oxalate (Lexapro Oral Solution -) 10 mg GT DAILY [facility] Last Admin: 02/10/17 11:12 Dose: 5 ml Fentanyl (Duragesic 12mcg Patch -) 1 patch TD Q72H [facility] Last Admin: 02/08/17 08:39 Dose: 1 patch Ferrous Sulfate (Feosol) 300 mg GT DAILY [facility] Last Admin: 02/10/17 11:12 Dose: 300 mg Insulin Aspart (Novolog Vial Sliding Scale -) 1 vial SQ ACHS [facility] PRN Reason: Protocol Last Admin: 02/10/17 06:32 Dose: Not Given Insulin Detemir (Levemir Vial) 15 units SQ AM [facility] Last Admin: 02/10/17 06:34 Dose: 15 units Insulin Detemir (Levemir Vial) 8 units SQ HS [facility] Last Admin: 02/09/17 23:01 Dose: 8 units Miscellaneous (Duragesic Patch Waste) 1 each TD PRN PRN Last Admin: 02/08/17 08:42 Dose: 1 each Nystatin (Nystop Powder -) 1 applic TP BID [facility] Last Admin: 02/10/17 11:14 Dose: 1 applic Ranitidine HCl (Zantac Oral Solution -) 150 mg GT DAILY [facility] Last Admin: 02/10/17 11:12 Dose: 150 mg - Objective Vital Signs: Vital Signs Temperature 100.9 F H 02/10/17 06:00 Pulse Rate 101 H 02/10/17 06:00 Respiratory Rate 20 02/10/17 06:00 Blood Pressure 101/53 02/10/17 06:00 O2 Sat by Pulse Oximetry (%) 98 02/09/17 11:05 Constitutional: Yes: No Distress, Pallor Cardiovascular: Yes: Regular Rate and Rhythm, Murmur, S1, S2 Respiratory: Yes: Diminished Gastrointestinal: Yes: Normal Bowel Sounds, Soft. No: Tenderness Extremities: Yes: Other (S/P bilateral BKA) Integumentary: Yes: Other (Stage IV sacral decubitus) Labs: CBC, BMP 02/08/17 07:00 02/08/17 07:00 INR, PTT INR 0.94 (0.82-1.09) 01/26/17 16:32 Assessment/Plan + Urine c/s ESBL- likely colonizer Recurrent high grade fever - improved Hx resistant pathogens Dementia Off antibiotics Observe Contact precautions
[2017-02-10] MEDS ORDERED: INSULIN (NOVOLOG) ASPART 100 UNITS/ML 10ML VIAL ONE (11:23)
--- NOTE | 2017-02-10 12:56 | PN ---
Progress Note, Physician Chief Complaint: patient noted to have low grade temp today sleepy lethargic in bed - Current Medication List Current Medications: Active Medications Acetaminophen (Tylenol Oral Solution -) 650 mg PO Q6H PRN PRN Reason: FEVER OR PAIN Last Admin: 02/09/17 23:00 Dose: 650 mg Acetaminophen (Tylenol Suppository -) 650 mg [place] Q6H PRN PRN Reason: FEVER OR PAIN Last Admin: 02/06/17 22:58 Dose: 650 mg Ascorbic Acid (Vitamin C Oral Solution -) 500 mg GT TID [facility] Last Admin: 02/10/17 06:42 Dose: 500 mg Bacitracin (Bacitracin -) 1 applic TP BID [facility] Doxazosin Mesylate (Cardura -) 2 mg GT DAILY [facility] Last Admin: 02/10/17 11:11 Dose: 2 mg Escitalopram Oxalate (Lexapro Oral Solution -) 10 mg GT DAILY [facility] Last Admin: 02/10/17 11:12 Dose: 5 ml Fentanyl (Duragesic 12mcg Patch -) 1 patch TD Q72H [facility] Last Admin: 02/08/17 08:39 Dose: 1 patch Ferrous Sulfate (Feosol) 300 mg GT DAILY [facility] Last Admin: 02/10/17 11:12 Dose: 300 mg Insulin Aspart (Novolog Vial Sliding Scale -) 1 vial SQ ACHS [facility] PRN Reason: Protocol Last Admin: 02/10/17 11:27 Dose: 5 units Insulin Detemir (Levemir Vial) 15 units SQ AM [facility] Last Admin: 02/10/17 06:34 Dose: 15 units Insulin Detemir (Levemir Vial) 8 units SQ HS [facility] Last Admin: 02/09/17 23:01 Dose: 8 units Miscellaneous (Duragesic Patch Waste) 1 each TD PRN PRN Last Admin: 02/08/17 08:42 Dose: 1 each Nystatin (Nystop Powder -) 1 applic TP BID [facility] Last Admin: 02/10/17 11:14 Dose: 1 applic Ranitidine HCl (Zantac Oral Solution -) 150 mg GT DAILY [facility] Last Admin: 02/10/17 11:12 Dose: 150 mg - Objective Vital Signs: Vital Signs Temperature 100.9 F H 02/10/17 06:00 Pulse Rate 101 H 02/10/17 06:00 Respiratory Rate 20 02/10/17 06:00 Blood Pressure 101/53 02/10/17 06:00 O2 Sat by Pulse Oximetry (%) 98 02/10/17 09:00 Constitutional: Yes: Calm, Thin Cardiovascular: Yes: Regular Rate and Rhythm, Murmur, S1, S2 Respiratory: Yes: Diminished (poor inspiratory effort) Gastrointestinal: Yes: Normal Bowel Sounds, Soft Genitourinary: Yes: [place] Present Extremities: Yes: Other (b/l BKA) Labs: CBC, BMP 02/08/17 07:00 02/08/17 07:00 INR, PTT INR 0.94 (0.82-1.09) 01/26/17 16:32 Problem List - Problems (1) Fever Assessment/Plan: Microbiology 01/26/17 16:30 Urine - Urine - Catheterized Urine Culture - Final Proteus Mirabilis monitor off abx Code(s): R50.9 - FEVER, UNSPECIFIED (2) Diabetes Assessment/Plan: bgm noted increase the night time insulin dose to 8 units will monitor Code(s): E11.9 - TYPE 2 DIABETES MELLITUS WITHOUT COMPLICATIONS Qualifiers: Diabetes mellitus type: type 2 Diabetes mellitus complication detail: with other skin ulcer (3) ARF (acute renal failure) Assessment/Plan: improved Code(s): N17.9 - ACUTE KIDNEY FAILURE, UNSPECIFIED (4) Hypernatremia Assessment/Plan: improved Code(s): E87.0 - HYPEROSMOLALITY AND HYPERNATREMIA (5) Anemia Assessment/Plan: iron panel noted anemia of chronic disease Code(s): D64.9 - ANEMIA, UNSPECIFIED Qualifiers: Anemia type: iron deficiency Iron deficiency anemia type: unspecified iron deficiency Qualified Code(s): D50.9 - Iron deficiency anemia, unspecified Assessment/Plan observe off abx if afebrile for [facility]
[2017-02-10] MEDS: ACETAMINOPHEN 650 MG/20.3 ML ORAL SOLUTION (CUPS) PO PRN (14:40)
[2017-02-10] MEDS: ACETAMINOPHEN 650 MG SUPP.RECT PR PRN (17:30)
[2017-02-10] MEDS: BACITRACIN 15 GM TUBE TOPICAL OINTMENT TP SCH (22:14)
[2017-02-11] MEDS: ACETAMINOPHEN 650 MG/20.3 ML ORAL SOLUTION (CUPS) PO PRN ×2 (02:38→12:35)
[2017-02-11] MEDS: INSULIN DETEMIR 100 UNITS/ML MDV SQ SCH ×2 (06:04→21:18)
[2017-02-11] MEDS: ASCORBIC ACID 500 MG/5 ML UNIT DOSE CUP GT SCH ×3 (06:04→21:19)
[2017-02-11] MEDS: INSULIN SLIDING SCALE (NOVOLOG) 1 VIAL SQ SCH ×4 (06:05→21:18)
--- NOTE | 2017-02-11 09:28 | PN ---
Progress Note, Physician - Current Medication List Current Medications: Active Medications Acetaminophen (Tylenol Oral Solution -) 650 mg PO Q6H PRN PRN Reason: FEVER OR PAIN Last Admin: 02/11/17 02:38 Dose: 650 mg Acetaminophen (Tylenol Suppository -) 650 mg [place] Q6H PRN PRN Reason: FEVER OR PAIN Last Admin: 02/10/17 17:30 Dose: 650 mg Ascorbic Acid (Vitamin C Oral Solution -) 500 mg GT TID [facility] Last Admin: 02/11/17 06:04 Dose: 500 mg Bacitracin (Bacitracin -) 1 applic TP BID [facility] Last Admin: 02/10/17 22:14 Dose: 1 applic Doxazosin Mesylate (Cardura -) 2 mg GT DAILY [facility] Last Admin: 02/10/17 11:11 Dose: 2 mg Escitalopram Oxalate (Lexapro Oral Solution -) 10 mg GT DAILY [facility] Last Admin: 02/10/17 11:12 Dose: 5 ml Fentanyl (Duragesic 12mcg Patch -) 1 patch TD Q72H [facility] Last Admin: 02/08/17 08:39 Dose: 1 patch Ferrous Sulfate (Feosol) 300 mg GT DAILY [facility] Last Admin: 02/10/17 11:12 Dose: 300 mg Insulin Aspart (Novolog Vial Sliding Scale -) 1 vial SQ ACHS [facility] PRN Reason: Protocol Last Admin: 02/11/17 06:05 Dose: 2 units Insulin Detemir (Levemir Vial) 15 units SQ AM [facility] Last Admin: 02/11/17 06:04 Dose: 15 units Insulin Detemir (Levemir Vial) 8 units SQ HS [facility] Last Admin: 02/10/17 22:15 Dose: 8 units Miscellaneous (Duragesic Patch Waste) 1 each TD PRN PRN Last Admin: 02/08/17 08:42 Dose: 1 each Nystatin (Nystop Powder -) 1 applic TP BID [facility] Last Admin: 02/10/17 22:16 Dose: 1 applic Ranitidine HCl (Zantac Oral Solution -) 150 mg GT DAILY [facility] Last Admin: 02/10/17 11:12 Dose: 150 mg - Objective Vital Signs: Vital Signs Temperature 100.4 F H 02/11/17 06:00 Pulse Rate 60 02/11/17 06:00 Respiratory Rate 20 02/11/17 06:00 Blood Pressure 120/62 02/11/17 06:00 O2 Sat by Pulse Oximetry (%) 100 02/10/17 20:58 Cardiovascular: Yes: Murmur, S1, S2 Respiratory: Yes: Regular, CTA Bilaterally Gastrointestinal: Yes: Normal Bowel Sounds, Soft Labs: CBC, BMP 02/08/17 07:00 02/08/17 07:00 INR, PTT INR 0.94 (0.82-1.09) 01/26/17 16:32 Assessment/Plan - Problems (1) Fever Assessment/Plan: Microbiology 01/26/17 16:30 Urine - Urine - Catheterized Urine Culture - Final Proteus Mirabilis monitor off abx Code(s): R50.9 - FEVER, UNSPECIFIED (2) Diabetes Assessment/Plan: bgm noted increase the night time insulin dose to 8 units will monitor Code(s): E11.9 - TYPE 2 DIABETES MELLITUS WITHOUT COMPLICATIONS Qualifiers: Diabetes mellitus type: type 2 Diabetes mellitus complication detail: with other skin ulcer (3) ARF (acute renal failure) Assessment/Plan: improved Code(s): N17.9 - ACUTE KIDNEY FAILURE, UNSPECIFIED (4) Hypernatremia Assessment/Plan: improved Code(s): E87.0 - HYPEROSMOLALITY AND HYPERNATREMIA (5) Anemia Assessment/Plan: iron panel noted anemia of chronic disease Code(s): D64.9 - ANEMIA, UNSPECIFIED Qualifiers: Anemia type: iron deficiency Iron deficiency anemia type: unspecified iron deficiency Qualified Code(s): D50.9 - Iron deficiency anemia, unspecified Assessment/Plan observe off abx if afebrile for 24 hrs [facility]
[2017-02-11] MEDS: fentaNYL 12mcg/hr PATCH.TD72 TD SCH (10:47)
[2017-02-11] MEDS: RANITIDINE HCL 150 MG/10 ML UNIT-DOSE GT SCH (10:50)
[2017-02-11] MEDS: DOXAZOSIN MESYLATE 2 MG TABLET (FP) GT SCH (10:50)
[2017-02-11] MEDS: FERROUS SO4 300 MG/5 ML ORAL SOLN UNIT DOSE CUPS GT SCH (10:50)
[2017-02-11] MEDS: ESCITALOPRAM OXALATE 5 MG/5 ML GT SCH (10:51)
[2017-02-11] MEDS: NYSTATIN POWDER 100,000 UNITS/GM - 15 GM TOPICAL POWDER TP SCH ×2 (10:52→21:15)
[2017-02-11] MEDS: BACITRACIN 15 GM TUBE TOPICAL OINTMENT TP SCH ×2 (10:52→21:19)
--- NOTE | 2017-02-11 14:20 | PN ---
Progress Note (short form) - Note Progress Note: PULMONARY FEBRILE/NONVERBAL PALE/ANICTERIC DIMINISHED BREATH SOUNDS BASES DIFFUSE PRECORDIAL SYSTOLIC MURMUR BS+ SOFT B/L BKA LABS/MEDS/NOTES/IMAGING/MICRO NOTED URINE : PROTEUS CXR ELEVATED RIGHT ANGELIKA/NO PNEUMONIA UTI RESOLVED Severe Sepsis resolved Lactic Acidosis resolved Acute Kidney Injury B/L BKA HTN DM Advanced Dementia ABX completed Monitor urine output, creatinine O2 to keep Spo2 >90% VTE prophylaxis/glycemic control DNR/DNI R KEVON VERMA
[2017-02-12] MEDS: ACETAMINOPHEN 650 MG/20.3 ML ORAL SOLUTION (CUPS) PO PRN ×2 (02:23→17:20)
[2017-02-12] MEDS: INSULIN SLIDING SCALE (NOVOLOG) 1 VIAL SQ SCH ×4 (06:58→21:47)
[2017-02-12] MEDS: INSULIN DETEMIR 100 UNITS/ML MDV SQ SCH ×2 (06:58→21:46)
[2017-02-12] MEDS: ASCORBIC ACID 500 MG/5 ML UNIT DOSE CUP GT SCH ×3 (06:58→21:47)
[2017-02-12] MEDS ORDERED: PT OWN MED DRAWER 7, Y5N ONE (09:52)
[2017-02-12] MEDS: FERROUS SO4 300 MG/5 ML ORAL SOLN UNIT DOSE CUPS GT SCH (09:56)
[2017-02-12] MEDS: RANITIDINE HCL 150 MG/10 ML UNIT-DOSE GT SCH (09:56)
[2017-02-12] MEDS: DOXAZOSIN MESYLATE 2 MG TABLET (FP) GT SCH (09:56)
[2017-02-12] MEDS: ESCITALOPRAM OXALATE 5 MG/5 ML GT SCH (09:57)
[2017-02-12] MEDS: NYSTATIN POWDER 100,000 UNITS/GM - 15 GM TOPICAL POWDER TP SCH ×2 (09:59→21:46)
[2017-02-12] MEDS: BACITRACIN 15 GM TUBE TOPICAL OINTMENT TP SCH ×2 (09:59→21:45)
--- NOTE | 2017-02-12 10:25 | PN ---
Progress Note, Physician Chief Complaint: UNRESPONSIVE TO VERBAL STIMULI NO CHANGES , EVENTS REVIEWED - Current Medication List Current Medications: Active Medications Acetaminophen (Tylenol Oral Solution -) 650 mg PO Q6H PRN PRN Reason: FEVER OR PAIN Last Admin: 02/12/17 02:23 Dose: 650 mg Acetaminophen (Tylenol Suppository -) 650 mg [place] Q6H PRN PRN Reason: FEVER OR PAIN Last Admin: 02/10/17 17:30 Dose: 650 mg Ascorbic Acid (Vitamin C Oral Solution -) 500 mg GT TID [facility] Last Admin: 02/12/17 06:58 Dose: 500 mg Bacitracin (Bacitracin -) 1 applic TP BID [facility] Last Admin: 02/12/17 09:59 Dose: 1 applic Doxazosin Mesylate (Cardura -) 2 mg GT DAILY [facility] Last Admin: 02/12/17 09:56 Dose: 2 mg Escitalopram Oxalate (Lexapro Oral Solution -) 10 mg GT DAILY [facility] Last Admin: 02/12/17 09:57 Dose: 10 ml Fentanyl (Duragesic 12mcg Patch -) 1 patch TD Q72H [facility] Last Admin: 02/11/17 10:47 Dose: 1 patch Ferrous Sulfate (Feosol) 300 mg GT DAILY [facility] Last Admin: 02/12/17 09:56 Dose: 300 mg Insulin Aspart (Novolog Vial Sliding Scale -) 1 vial SQ ACHS [facility] PRN Reason: Protocol Last Admin: 02/12/17 06:58 Dose: 5 units Insulin Detemir (Levemir Vial) 15 units SQ AM [facility] Last Admin: 02/12/17 06:58 Dose: 15 units Insulin Detemir (Levemir Vial) 8 units SQ HS [facility] Last Admin: 02/11/17 21:18 Dose: 8 units Miscellaneous (Duragesic Patch Waste) 1 each TD PRN PRN Last Admin: 02/08/17 08:42 Dose: 1 each Nystatin (Nystop Powder -) 1 applic TP BID [facility] Last Admin: 02/12/17 09:59 Dose: 1 applic Ranitidine HCl (Zantac Oral Solution -) 150 mg GT DAILY [facility] Last Admin: 02/12/17 09:56 Dose: 150 mg - Objective Vital Signs: Vital Signs Temperature 100.2 F H 02/12/17 06:00 Pulse Rate 114 H 02/12/17 06:00 Respiratory Rate 18 02/12/17 06:00 Blood Pressure 108/56 02/12/17 06:00 O2 Sat by Pulse Oximetry (%) 99 02/11/17 21:00 Constitutional: Yes: No Distress, Mild Distress Eyes: Yes: WNL HENT: Yes: WNL Neck: Yes: WNL Cardiovascular: Yes: WNL Respiratory: Yes: WNL Gastrointestinal: Yes: Other Genitourinary: Yes: Incontinence Musculoskeletal: Yes: Muscle Weakness Extremities: Yes: Amputation Peripheral Pulses WNL: Yes Integumentary: Yes: Other Wound/Incision: Yes: Dressing Dry and Intact Psychiatric: Yes: Other Labs: CBC, BMP 02/08/17 07:00 02/08/17 07:00 INR, PTT INR 0.94 (0.82-1.09) 01/26/17 16:32 Problem List - Problems (1) Decubitus ulcer Code(s): L89.90 - PRESSURE ULCER OF UNSPECIFIED SITE, UNSPECIFIED STAGE Qualifiers: Pressure ulcer location: sacral region Pressure ulcer stage: unspecified pressure ulcer stage Qualified Code(s): L89.159 - Pressure ulcer of sacral region, unspecified stage (2) Septic shock Code(s): A41.9 - SEPSIS, UNSPECIFIED ORGANISM; R65.21 - SEVERE SEPSIS WITH SEPTIC SHOCK (3) Type 2 diabetes mellitus with autonomic neuropathy Code(s): E11.43 - TYPE 2 DIABETES W DIABETIC AUTONOMIC (POLY)NEUROPATHY (4) UTI (urinary tract infection) Code(s): N39.0 - URINARY TRACT INFECTION, SITE NOT SPECIFIED Qualifiers: Urinary tract infection type: site unspecified Hematuria presence: without hematuria Qualified Code(s): N39.0 - Urinary tract infection, site not specified (5) Anemia Code(s): D64.9 - ANEMIA, UNSPECIFIED Qualifiers: Anemia type: iron deficiency Iron deficiency anemia type: unspecified iron deficiency Qualified Code(s): D50.9 - Iron deficiency anemia, unspecified (6) Dementia Code(s): F03.90 - UNSPECIFIED DEMENTIA WITHOUT BEHAVIORAL DISTURBANCE Assessment/Plan SEVERE DEMENTIA NO ACUTE CHANGE DNR/DNI SEPSIS RESOLVING PALLIATIVE CARE
[2017-02-13] MEDS: INSULIN DETEMIR 100 UNITS/ML MDV SQ SCH ×2 (06:23→21:54)
[2017-02-13] MEDS: ASCORBIC ACID 500 MG/5 ML UNIT DOSE CUP GT SCH ×3 (06:23→21:56)
[2017-02-13] MEDS: INSULIN SLIDING SCALE (NOVOLOG) 1 VIAL SQ SCH ×4 (06:24→21:54)
[2017-02-13] MEDS: ACETAMINOPHEN 650 MG/20.3 ML ORAL SOLUTION (CUPS) PO PRN ×2 (06:25→17:50)
[2017-02-13] MEDS ORDERED: INSULIN (NOVOLOG) ASPART 100 UNITS/ML 10ML VIAL ONE ×3 (06:49→22:32)
[2017-02-13] MEDS ORDERED: PT OWN MED DRAWER 7, Y5N ONE (09:05)
[2017-02-13] MEDS: RANITIDINE HCL 150 MG/10 ML UNIT-DOSE GT SCH (09:11)
[2017-02-13] MEDS: FERROUS SO4 300 MG/5 ML ORAL SOLN UNIT DOSE CUPS GT SCH (09:11)
[2017-02-13] MEDS: BACITRACIN 15 GM TUBE TOPICAL OINTMENT TP SCH ×2 (09:12→21:53)
[2017-02-13] MEDS: DOXAZOSIN MESYLATE 2 MG TABLET (FP) GT SCH (09:12)
[2017-02-13] MEDS: ESCITALOPRAM OXALATE 5 MG/5 ML GT SCH (09:13)
--- NOTE | 2017-02-13 09:57 | PN ---
Progress Note, Physician Chief Complaint: UNRESPONSIVE TO VERBAL STIMULI NO CHANGES , EVENTS REVIEWED - Current Medication List Current Medications: Active Medications Acetaminophen (Tylenol Oral Solution -) 650 mg PO Q6H PRN PRN Reason: FEVER OR PAIN Last Admin: 02/13/17 06:25 Dose: 650 mg Acetaminophen (Tylenol Suppository -) 650 mg [place] Q6H PRN PRN Reason: FEVER OR PAIN Last Admin: 02/10/17 17:30 Dose: 650 mg Ascorbic Acid (Vitamin C Oral Solution -) 500 mg GT TID [facility] Last Admin: 02/13/17 06:23 Dose: 500 mg Bacitracin (Bacitracin -) 1 applic TP BID [facility] Last Admin: 02/13/17 09:12 Dose: 1 applic Doxazosin Mesylate (Cardura -) 2 mg GT DAILY [facility] Last Admin: 02/13/17 09:12 Dose: 2 mg Escitalopram Oxalate (Lexapro Oral Solution -) 10 mg GT DAILY [facility] Last Admin: 02/13/17 09:13 Dose: 10 mg Fentanyl (Duragesic 12mcg Patch -) 1 patch TD Q72H [facility] Last Admin: 02/11/17 10:47 Dose: 1 patch Ferrous Sulfate (Feosol) 300 mg GT DAILY [facility] Last Admin: 02/13/17 09:11 Dose: 300 mg Insulin Aspart (Novolog Vial Sliding Scale -) 1 vial SQ ACHS [facility] PRN Reason: Protocol Last Admin: 02/13/17 06:24 Dose: 2 units Insulin Detemir (Levemir Vial) 15 units SQ AM [facility] Last Admin: 02/13/17 06:23 Dose: 15 units Insulin Detemir (Levemir Vial) 8 units SQ HS [facility] Last Admin: 02/12/17 21:46 Dose: 8 units Miscellaneous (Duragesic Patch Waste) 1 each TD PRN PRN Last Admin: 02/08/17 08:42 Dose: 1 each Nystatin (Nystop Powder -) 1 applic TP BID [facility] Last Admin: 02/12/17 21:46 Dose: 1 applic Ranitidine HCl (Zantac Oral Solution -) 150 mg GT DAILY [facility] Last Admin: 02/13/17 09:11 Dose: 150 mg - Objective Vital Signs: Vital Signs Temperature 98.2 F 02/13/17 06:00 Pulse Rate 107 H 02/13/17 06:00 Respiratory Rate 20 02/13/17 06:00 Blood Pressure 111/57 02/13/17 06:00 O2 Sat by Pulse Oximetry (%) 99 02/12/17 21:00 Constitutional: Yes: No Distress Eyes: Yes: WNL HENT: Yes: WNL Neck: Yes: WNL Cardiovascular: Yes: WNL Respiratory: Yes: WNL Gastrointestinal: Yes: WNL, Other Genitourinary: Yes: Incontinence, Other Musculoskeletal: Yes: Muscle Weakness Extremities: Yes: Amputation Integumentary: Yes: Pressure Ulcer, Venous Stasis Changes Wound/Incision: Yes: Dressing Dry and Intact Neurological: Yes: Pre-Existing Deficit Psychiatric: Yes: Other Labs: CBC, BMP 02/08/17 07:00 02/08/17 07:00 INR, PTT INR 0.94 (0.82-1.09) 01/26/17 16:32 Problem List - Problems (1) Decubitus ulcer Code(s): L89.90 - PRESSURE ULCER OF UNSPECIFIED SITE, UNSPECIFIED STAGE Qualifiers: Pressure ulcer location: sacral region Pressure ulcer stage: unspecified pressure ulcer stage Qualified Code(s): L89.159 - Pressure ulcer of sacral region, unspecified stage (2) Septic shock Code(s): A41.9 - SEPSIS, UNSPECIFIED ORGANISM; R65.21 - SEVERE SEPSIS WITH SEPTIC SHOCK (3) Type 2 diabetes mellitus with autonomic neuropathy Code(s): E11.43 - TYPE 2 DIABETES W DIABETIC AUTONOMIC (POLY)NEUROPATHY (4) UTI (urinary tract infection) Code(s): N39.0 - URINARY TRACT INFECTION, SITE NOT SPECIFIED Qualifiers: Urinary tract infection type: site unspecified Hematuria presence: without hematuria Qualified Code(s): N39.0 - Urinary tract infection, site not specified (5) Anemia Code(s): D64.9 - ANEMIA, UNSPECIFIED Qualifiers: Anemia type: iron deficiency Iron deficiency anemia type: unspecified iron deficiency Qualified Code(s): D50.9 - Iron deficiency anemia, unspecified (6) Dementia Code(s): F03.90 - UNSPECIFIED DEMENTIA WITHOUT BEHAVIORAL DISTURBANCE Assessment/Plan SEVERE DEMENTIA NO ACUTE CHANGE DNR/DNI SEPSIS RESOLVING PALLIATIVE CARE
[2017-02-13] MEDS: NYSTATIN POWDER 100,000 UNITS/GM - 15 GM TOPICAL POWDER TP SCH ×2 (12:22→21:55)
--- NOTE | 2017-02-13 20:48 | PN ---
Progress Note, Physician Chief Complaint: poorly responsive to sound,awake History of Present Illness: 81 y female,dm ashd,sepsis labile glycemia - Current Medication List Current Medications: Active Medications Acetaminophen (Tylenol Oral Solution -) 650 mg PO Q6H PRN PRN Reason: FEVER OR PAIN Last Admin: 02/13/17 17:50 Dose: 650 mg Acetaminophen (Tylenol Suppository -) 650 mg [place] Q6H PRN PRN Reason: FEVER OR PAIN Last Admin: 02/10/17 17:30 Dose: 650 mg Ascorbic Acid (Vitamin C Oral Solution -) 500 mg GT TID [facility] Last Admin: 02/13/17 13:56 Dose: 500 mg Bacitracin (Bacitracin -) 1 applic TP BID [facility] Last Admin: 02/13/17 09:12 Dose: 1 applic Doxazosin Mesylate (Cardura -) 2 mg GT DAILY [facility] Last Admin: 02/13/17 09:12 Dose: 2 mg Escitalopram Oxalate (Lexapro Oral Solution -) 10 mg GT DAILY [facility] Last Admin: 02/13/17 09:13 Dose: 10 mg Fentanyl (Duragesic 12mcg Patch -) 1 patch TD Q72H [facility] Last Admin: 02/11/17 10:47 Dose: 1 patch Ferrous Sulfate (Feosol) 300 mg GT DAILY [facility] Last Admin: 02/13/17 09:11 Dose: 300 mg Insulin Aspart (Novolog Vial Sliding Scale -) 1 vial SQ ACHS [facility] PRN Reason: Protocol Last Admin: 02/13/17 17:36 Dose: Not Given Insulin Detemir (Levemir Vial) 15 units SQ AM [facility] Last Admin: 02/13/17 06:23 Dose: 15 units Insulin Detemir (Levemir Vial) 8 units SQ HS [facility] Last Admin: 02/12/17 21:46 Dose: 8 units Miscellaneous (Duragesic Patch Waste) 1 each TD PRN PRN Last Admin: 02/08/17 08:42 Dose: 1 each Nystatin (Nystop Powder -) 1 applic TP BID [facility] Last Admin: 02/13/17 12:22 Dose: 1 applic Ranitidine HCl (Zantac Oral Solution -) 150 mg GT DAILY [facility] Last Admin: 02/13/17 09:11 Dose: 150 mg - Objective Vital Signs: Vital Signs Temperature 102.6 F H 02/13/17 18:00 Pulse Rate 106 H 11/19/17 18:00 Respiratory Rate 20 02/13/17 18:00 Blood Pressure 123/62 02/13/17 18:00 O2 Sat by Pulse Oximetry (%) 99 02/13/17 09:00 Constitutional: Yes: Calm Eyes: Yes: EOM Intact HENT: Yes: Normocephalic Neck: Yes: Trachea Midline Cardiovascular: Yes: Regular Rate and Rhythm Respiratory: Yes: CTA Bilaterally Gastrointestinal: Yes: Normal Bowel Sounds ...Rectal Exam: Yes: Deferred Genitourinary: Yes: WNL Musculoskeletal: Yes: Muscle Weakness Extremities: Yes: Delayed Capillary Refill Neurological: Yes: Lethargy, Weakness Labs: CBC, BMP 02/08/17 07:00 02/08/17 07:00 INR, PTT INR 0.94 (0.82-1.09) 01/26/17 16:32 Problem List - Problems (1) UTI (urinary tract infection) Code(s): N39.0 - URINARY TRACT INFECTION, SITE NOT SPECIFIED Qualifiers: Urinary tract infection type: site unspecified Hematuria presence: without hematuria Qualified Code(s): N39.0 - Urinary tract infection, site not specified (2) Decubitus ulcer Code(s): L89.90 - PRESSURE ULCER OF UNSPECIFIED SITE, UNSPECIFIED STAGE Qualifiers: Pressure ulcer location: sacral region Pressure ulcer stage: unspecified pressure ulcer stage Qualified Code(s): L89.159 - Pressure ulcer of sacral region, unspecified stage (3) C. difficile diarrhea Code(s): A04.7 - ENTEROCOLITIS DUE TO CLOSTRIDIUM DIFFICILE * DO NOT USE * (4) Hyperkalemia Code(s): E87.5 - HYPERKALEMIA (5) Type 2 diabetes mellitus with autonomic neuropathy Code(s): E11.43 - TYPE 2 DIABETES W DIABETIC AUTONOMIC (POLY)NEUROPATHY Assessment/Plan Current Active Problems Decubitus ulcer (Acute) Septic shock (Acute) Type 2 diabetes mellitus with autonomic neuropathy (Acute) UTI (urinary tract infection) (Acute) Laboratory Results - last 24 hr 02/12/17 02/13/17 02/13/17 21:45 06:21 12:15 POC Glucometer 291 227 222 02/13/17 17:35 POC Glucometer 170 Current Medications Generic Name Dose Route Start Last Admin Trade Name Freq PRN Reason Stop Dose Admin Acetaminophen 650 mg 01/26/17 20:01 02/13/17 17:50 Tylenol Oral Solution - PO 650 mg Q6H PRN Administration FEVER OR PAIN Acetaminophen 650 mg 01/30/17 14:12 02/10/17 17:30 Tylenol Suppository - MT 650 mg Q6H PRN Administration FEVER OR PAIN Ascorbic Acid 500 mg 01/26/17 22:00 02/13/17 13:56 Vitamin C Oral Solution - GT 500 mg TID [facility] Administration Bacitracin 1 applic 02/10/17 22:00 02/13/17 09:12 Bacitracin - TP 1 applic BID [facility] Administration Doxazosin Mesylate 2 mg 01/27/17 10:00 02/13/17 09:12 Cardura - GT 2 mg DAILY [facility] Administration Escitalopram Oxalate 10 mg 01/27/17 10:00 02/13/17 09:13 Lexapro Oral Solution - GT 10 mg DAILY [facility] Administration Fentanyl 1 patch 02/05/17 08:45 02/11/17 10:47 Duragesic 12mcg Patch - TD 1 patch Q72H [facility] Administration Ferrous Sulfate 300 mg 01/27/17 10:00 02/13/17 09:11 Feosol GT 300 mg DAILY [facility] Administration Insulin Aspart 1 vial 01/30/17 20:08 02/13/17 17:36 Novolog Vial Sliding Scale - SQ Not Given ACHS [facility] Protocol Insulin Detemir 15 units 02/02/17 00:48 02/13/17 06:23 Levemir Vial SQ 15 units AM [facility] Administration Insulin Detemir 8 units 02/07/17 12:41 02/12/17 21:46 Levemir Vial SQ 8 units HS [facility] Administration Miscellaneous 1 each 02/05/17 08:35 02/08/17 08:42 Duragesic Patch Waste TD 1 each PRN PRN Administration Nystatin 1 applic 02/01/17 22:00 02/13/17 12:22 Nystop Powder - TP 1 applic BID [facility] Administration Ranitidine HCl 150 mg 01/27/17 10:00 02/13/17 09:11 Zantac Oral Solution - GT 150 mg DAILY [facility] Administration plan; continue supportive care bgm coverage levemir bid 15 am/8 units hs
[2017-02-13] MEDS ORDERED: INSULIN DETEMIR 100 UNITS/ML MDV SQ ONE (22:32)
[2017-02-14] MEDS ORDERED: INSULIN (NOVOLOG) ASPART 100 UNITS/ML 10ML VIAL ONE ×3 (06:32→18:37)
[2017-02-14] MEDS: ASCORBIC ACID 500 MG/5 ML UNIT DOSE CUP GT SCH ×3 (06:38→21:02)
[2017-02-14] MEDS: INSULIN SLIDING SCALE (NOVOLOG) 1 VIAL SQ SCH ×4 (06:38→21:00)
[2017-02-14] MEDS: INSULIN DETEMIR 100 UNITS/ML MDV SQ SCH ×2 (06:39→21:01)
[2017-02-14] MEDS ORDERED: PT OWN MED DRAWER 7, Y5N ONE (09:05)
[2017-02-14] MEDS: ACETAMINOPHEN 650 MG/20.3 ML ORAL SOLUTION (CUPS) PO PRN ×2 (09:13→17:48)
[2017-02-14] MEDS: BACITRACIN 15 GM TUBE TOPICAL OINTMENT TP SCH ×3 (09:13→21:12)
[2017-02-14] MEDS: ESCITALOPRAM OXALATE 5 MG/5 ML GT SCH (09:14)
[2017-02-14] MEDS: FERROUS SO4 300 MG/5 ML ORAL SOLN UNIT DOSE CUPS GT SCH (09:14)
[2017-02-14] MEDS: DOXAZOSIN MESYLATE 2 MG TABLET (FP) GT SCH (09:14)
[2017-02-14] MEDS: RANITIDINE HCL 150 MG/10 ML UNIT-DOSE GT SCH (09:15)
[2017-02-14] MEDS: NYSTATIN POWDER 100,000 UNITS/GM - 15 GM TOPICAL POWDER TP SCH ×2 (09:15→21:02)
[2017-02-14] MEDS: fentaNYL 12mcg/hr PATCH.TD72 TD SCH (10:33)
[2017-02-14] MEDS: FENTANYL PATCH WASTE TD PRN (10:36)
--- NOTE | 2017-02-14 13:05 | PN ---
Progress Note (short form) - Note Progress Note: PULMONARY Pt nonverbal, fevers persist. Last Vital Signs Temp Pulse Resp BP Pulse Ox 101 F H 104 H 20 115/59 98 02/14/17 10:00 02/14/17 10:00 02/14/17 10:00 02/14/17 10:00 02/14/17 09:00 Gen: nonverbal Heart: RRR Lung: decreased breath sounds at the bases Abd: soft, nontender CBC, BMP 02/08/17 07:00 02/08/17 07:00 Active Medications Acetaminophen (Tylenol Oral Solution -) 650 mg PO Q6H PRN PRN Reason: FEVER OR PAIN Last Admin: 02/14/17 09:13 Dose: 650 mg Acetaminophen (Tylenol Suppository -) 650 mg [place] Q6H PRN PRN Reason: FEVER OR PAIN Last Admin: 02/10/17 17:30 Dose: 650 mg Ascorbic Acid (Vitamin C Oral Solution -) 500 mg GT TID [facility] Last Admin: 02/14/17 06:38 Dose: 500 mg Bacitracin (Bacitracin -) 1 applic TP BID [facility] Last Admin: 02/14/17 09:13 Dose: 1 applic Doxazosin Mesylate (Cardura -) 2 mg GT DAILY [facility] Last Admin: 02/14/17 09:14 Dose: 2 mg Escitalopram Oxalate (Lexapro Oral Solution -) 10 mg GT DAILY [facility] Last Admin: 02/14/17 09:14 Dose: 10 mg Fentanyl (Duragesic 12mcg Patch -) 1 patch TD Q72H [facility] Last Admin: 02/14/17 10:33 Dose: 1 patch Ferrous Sulfate (Feosol) 300 mg GT DAILY [facility] Last Admin: 02/14/17 09:14 Dose: 300 mg Insulin Aspart (Novolog Vial Sliding Scale -) 1 vial SQ ACHS [facility] PRN Reason: Protocol Last Admin: 02/14/17 11:54 Dose: 2 units Insulin Detemir (Levemir Vial) 15 units SQ AM [facility] Last Admin: 02/14/17 06:39 Dose: 15 units Insulin Detemir (Levemir Vial) 8 units SQ HS [facility] Last Admin: 02/13/17 21:54 Dose: 8 units Miscellaneous (Duragesic Patch Waste) 1 each TD PRN PRN Last Admin: 11/20/17 10:36 Dose: 1 each Nystatin (Nystop Powder -) 1 applic TP BID [facility] Last Admin: 02/14/17 09:15 Dose: 1 applic Ranitidine HCl (Zantac Oral Solution -) 150 mg GT DAILY [facility] Last Admin: 02/14/17 09:15 Dose: 150 mg A/P UTI Sacral Decubitus Ulcer h/o CVA HTN DM Hyperlipidemia Dementia h/o Bilateral BKA - antibiotics per ID - f/u pending cultures - monitor fever curve, WBC trend - wound care - enteral feeds - aspiration precautions - DVT prophylaxis - poor overall prognosis, consider palliative care Problem List - Problems (1) Diabetes Code(s): E11.9 - TYPE 2 DIABETES MELLITUS WITHOUT COMPLICATIONS Qualifiers: Diabetes mellitus type: type 2 Diabetes mellitus complication detail: with other skin ulcer (2) HTN (hypertension) Code(s): I10 - ESSENTIAL (PRIMARY) HYPERTENSION Qualifiers: Hypertension type: essential hypertension Qualified Code(s): I10 - Essential (primary) hypertension (3) ARF (acute renal failure) Code(s): N17.9 - ACUTE KIDNEY FAILURE, UNSPECIFIED (4) Lactic acidosis Code(s): E87.2 - ACIDOSIS (5) UTI (urinary tract infection) Code(s): N39.0 - URINARY TRACT INFECTION, SITE NOT SPECIFIED Qualifiers: Urinary tract infection type: site unspecified Hematuria presence: without hematuria Qualified Code(s): N39.0 - Urinary tract infection, site not specified (6) Decubitus ulcer Code(s): L89.90 - PRESSURE ULCER OF UNSPECIFIED SITE, UNSPECIFIED STAGE Qualifiers: Pressure ulcer location: sacral region Pressure ulcer stage: unspecified pressure ulcer stage Qualified Code(s): L89.159 - Pressure ulcer of sacral region, unspecified stage (7) Severe sepsis Code(s): A41.9 - SEPSIS, UNSPECIFIED ORGANISM; R65.20 - SEVERE SEPSIS WITHOUT SEPTIC SHOCK
--- NOTE | 2017-02-14 13:23 | PN ---
Progress Note, Physician Chief Complaint: in bed non verbal lethargic fever spike to 102 - Current Medication List Current Medications: Active Medications Acetaminophen (Tylenol Oral Solution -) 650 mg PO Q6H PRN PRN Reason: FEVER OR PAIN Last Admin: 02/14/17 09:13 Dose: 650 mg Acetaminophen (Tylenol Suppository -) 650 mg [place] Q6H PRN PRN Reason: FEVER OR PAIN Last Admin: 02/10/17 17:30 Dose: 650 mg Ascorbic Acid (Vitamin C Oral Solution -) 500 mg GT TID [facility] Last Admin: 02/14/17 06:38 Dose: 500 mg Bacitracin (Bacitracin -) 1 applic TP BID [facility] Last Admin: 02/14/17 09:13 Dose: 1 applic Doxazosin Mesylate (Cardura -) 2 mg GT DAILY [facility] Last Admin: 02/14/17 09:14 Dose: 2 mg Escitalopram Oxalate (Lexapro Oral Solution -) 10 mg GT DAILY [facility] Last Admin: 02/14/17 09:14 Dose: 10 mg Fentanyl (Duragesic 12mcg Patch -) 1 patch TD Q72H [facility] Last Admin: 02/14/17 10:33 Dose: 1 patch Ferrous Sulfate (Feosol) 300 mg GT DAILY [facility] Last Admin: 02/14/17 09:14 Dose: 300 mg Insulin Aspart (Novolog Vial Sliding Scale -) 1 vial SQ ACHS [facility] PRN Reason: Protocol Last Admin: 02/14/17 11:54 Dose: 2 units Insulin Detemir (Levemir Vial) 15 units SQ AM [facility] Last Admin: 02/14/17 06:39 Dose: 15 units Insulin Detemir (Levemir Vial) 8 units SQ HS [facility] Last Admin: 02/13/17 21:54 Dose: 8 units Miscellaneous (Duragesic Patch Waste) 1 each TD PRN PRN Last Admin: 02/14/17 10:36 Dose: 1 each Nystatin (Nystop Powder -) 1 applic TP BID [facility] Last Admin: 02/14/17 09:15 Dose: 1 applic Ranitidine HCl (Zantac Oral Solution -) 150 mg GT DAILY [facility] Last Admin: 02/14/17 09:15 Dose: 150 mg - Objective Vital Signs: Vital Signs Temperature 101 F H 02/14/17 10:00 Pulse Rate 104 H 02/14/17 10:00 Respiratory Rate 20 02/14/17 10:00 Blood Pressure 115/59 02/14/17 10:00 O2 Sat by Pulse Oximetry (%) 98 02/14/17 09:00 Constitutional: Yes: Calm Cardiovascular: Yes: Regular Rate and Rhythm, Murmur, S1, S2 Respiratory: Yes: Diminished Gastrointestinal: Yes: Soft Genitourinary: Yes: [place] Present Extremities: Yes: Other (b/l BKA) Neurological: Yes: Lethargy, Other (non verbal) Labs: CBC, BMP 02/08/17 07:00 02/08/17 07:00 INR, PTT INR 0.94 (0.82-1.09) 01/26/17 16:32 Problem List - Problems (1) Fever Assessment/Plan: persisitant fever off abx reculture patient to make sure no bacteremia chest xray to r/o infiltrate Code(s): R50.9 - FEVER, UNSPECIFIED (2) Diabetes Assessment/Plan: bgm noted increase the night time insulin dose to 10 units will monitor Qualifiers: Diabetes mellitus type: type 2 Diabetes mellitus complication detail: with other skin ulcer (3) ARF (acute renal failure) Assessment/Plan: improved repeat bmp today Code(s): N17.9 - ACUTE KIDNEY FAILURE, UNSPECIFIED (4) Hypernatremia Assessment/Plan: improved repeat bmp t jessica Code(s): E87.0 - HYPEROSMOLALITY AND HYPERNATREMIA (5) Anemia Assessment/Plan: iron panel noted anemia of chronic disease Code(s): D64.9 - ANEMIA, UNSPECIFIED Qualifiers: Anemia type: iron deficiency Iron deficiency anemia type: unspecified iron deficiency Qualified Code(s): D50.9 - Iron deficiency anemia, unspecified
[2017-02-14 14:06] LABS: MCH 32.3 pg (25.7-33.7); MCHC 31.6 g/dl (32.0-36.0); MEAN PLT VOLUME 8.2 fl (7.5-11.1); PLATELET COUNT 356 K/MM3 (134-434); RDW 20.1 % (11.6-15.6); WHITE BLOOD COUNT 11.6 K/mm3 (4.0-10.0)
[2017-02-14 14:32] LABS: ANION GAP 8 (8-16); CALCIUM 8.9 mg/dL (8.5-10.1); CO2 26 mmol/L (21-32); CREATININE 1.2 mg/dL (0.55-1.02); GLUCOSE,RANDOM 174 mg/dL (74-106)
[2017-02-14] MEDS ORDERED: INSULIN DETEMIR 100 UNITS/ML MDV SQ ONE (20:40)
[2017-02-14] MEDS: ACETAMINOPHEN 650 MG SUPP.RECT PR PRN (20:48)
[2017-02-14 21:01] LABS: TOTAL CELLS COUNTED 100
[2017-02-14 21:06] LABS: ANISOCYTOSIS 1+; MICROCYTOSIS 1+
[2017-02-15] MEDS: ASCORBIC ACID 500 MG/5 ML UNIT DOSE CUP GT SCH ×3 (06:38→22:03)
[2017-02-15] MEDS: ACETAMINOPHEN 650 MG/20.3 ML ORAL SOLUTION (CUPS) PO PRN ×2 (06:38→11:50)
[2017-02-15] MEDS: INSULIN DETEMIR 100 UNITS/ML MDV SQ SCH ×2 (06:38→22:03)
[2017-02-15] MEDS: INSULIN SLIDING SCALE (NOVOLOG) 1 VIAL SQ SCH ×4 (06:39→22:01)
--- NOTE | 2017-02-15 08:38 | PN ---
Progress Note, Physician History of Present Illness: PEG REINSERTED - Current Medication List Current Medications: Active Medications Acetaminophen (Tylenol Oral Solution -) 650 mg PO Q6H PRN PRN Reason: FEVER OR PAIN Last Admin: 02/15/17 06:38 Dose: 650 mg Acetaminophen (Tylenol Suppository -) 650 mg [place] Q6H PRN PRN Reason: FEVER OR PAIN Last Admin: 02/14/17 20:48 Dose: 650 mg Ascorbic Acid (Vitamin C Oral Solution -) 500 mg GT TID [facility] Last Admin: 02/15/17 06:38 Dose: 500 mg Bacitracin (Bacitracin -) 1 applic TP BID [facility] Last Admin: 02/14/17 21:12 Dose: 1 applic Doxazosin Mesylate (Cardura -) 2 mg GT DAILY [facility] Last Admin: 02/14/17 09:14 Dose: 2 mg Escitalopram Oxalate (Lexapro Oral Solution -) 10 mg GT DAILY [facility] Last Admin: 02/14/17 09:14 Dose: 10 mg Fentanyl (Duragesic 12mcg Patch -) 1 patch TD Q72H [facility] Last Admin: 02/14/17 10:33 Dose: 1 patch Ferrous Sulfate (Feosol) 300 mg GT DAILY [facility] Last Admin: 02/14/17 09:14 Dose: 300 mg Insulin Aspart (Novolog Vial Sliding Scale -) 1 vial SQ ACHS [facility] PRN Reason: Protocol Last Admin: 02/15/17 06:39 Dose: 7 units Insulin Detemir (Levemir Vial) 15 units SQ AM [facility] Last Admin: 02/15/17 06:38 Dose: 15 units Insulin Detemir (Levemir Vial) 10 units SQ HS [facility] Last Admin: 02/14/17 21:01 Dose: 10 units Miscellaneous (Duragesic Patch Waste) 1 each TD PRN PRN Last Admin: 02/14/17 10:36 Dose: 1 each Nystatin (Nystop Powder -) 1 applic TP BID [facility] Last Admin: 02/14/17 21:02 Dose: 1 applic Ranitidine HCl (Zantac Oral Solution -) 150 mg GT DAILY [facility] Last Admin: 02/14/17 09:15 Dose: 150 mg - Objective Vital Signs: Vital Signs Temperature 102.8 F H 02/15/17 06:00 Pulse Rate 113 H 02/15/17 06:00 Respiratory Rate 20 02/15/17 06:00 Blood Pressure 105/55 02/15/17 06:00 O2 Sat by Pulse Oximetry (%) 100 02/14/17 21:00 Cardiovascular: Yes: Murmur, S1, S2 Respiratory: Yes: Regular, CTA Bilaterally Gastrointestinal: Yes: Normal Bowel Sounds, Soft Labs: CBC, BMP 02/14/17 13:40 INR, PTT INR 0.94 (0.82-1.09) 01/26/17 16:32 Assessment/Plan - Problems (1) Fever Assessment/Plan: persistent fever off abx reculture patient to make sure no bacteremia chest xray to r/o infiltrate Code(s): R50.9 - FEVER, UNSPECIFIED (2) Diabetes Assessment/Plan: bgm noted increase the night time insulin dose to 10 units will monitor Qualifiers: Diabetes mellitus type: type 2 Diabetes mellitus complication detail: with other skin ulcer (3) ARF (acute renal failure) Assessment/Plan: improved repeat bmp today Code(s): N17.9 - ACUTE KIDNEY FAILURE, UNSPECIFIED (4) Hypernatremia Assessment/Plan: improved repeat bmp t jessica Code(s): E87.0 - HYPEROSMOLALITY AND HYPERNATREMIA (5) Anemia Assessment/Plan: iron panel noted anemia of chronic disease Code(s): D64.9 - ANEMIA, UNSPECIFIED Qualifiers: Anemia type: iron deficiency Iron deficiency anemia type: unspecified iron deficiency Qualified Code(s): D50.9 - Iron deficiency anemia, unspecified
[2017-02-15 08:42] LABS: BASOPHIL 0.5 % (0-2.0); EOSINOPHIL 0.8 % (0-4.5); MCH 31.9 pg (25.7-33.7); MCHC 31.2 g/dl (32.0-36.0); MEAN CELL VOLUME 102.1 fl (80-96); MEAN PLT VOLUME 8.2 fl (7.5-11.1); NEUTROPHILS 59.3 % (42.8-82.8); PLATELET COUNT 358 K/MM3 (134-434); RDW 20.2 % (11.6-15.6); WHITE BLOOD COUNT 9.3 K/mm3 (4.0-10.0)
--- NOTE | 2017-02-15 09:26 | PN ---
Progress Note (short form) - Note Progress Note: Febrile to 102. No overall change in clinical condition. CXR: 02/14 : rotated/skin folds : no acute infiltrate or effusion Intake & Output 02/12/17 02/13/17 02/14/17 02/15/17 23:59 23:59 23:59 23:59 Intake Total 948 855 7571 720 Output Total 500 1000 400 100 Balance 240 -760 740 620 Weight 96 lb 1.6 oz 108 lb 95 lb 9.6 oz Last Vital Signs Temp Pulse Resp BP Pulse Ox 102.8 F H 113 H 20 105/55 100 02/15/17 06:00 02/15/17 06:00 02/15/17 06:00 02/15/17 06:00 02/14/17 21:00 Active Medications Acetaminophen (Tylenol Oral Solution -) 650 mg PO Q6H PRN PRN Reason: FEVER OR PAIN Last Admin: 02/15/17 06:38 Dose: 650 mg Acetaminophen (Tylenol Suppository -) 650 mg [place] Q6H PRN PRN Reason: FEVER OR PAIN Last Admin: 02/14/17 20:48 Dose: 650 mg Ascorbic Acid (Vitamin C Oral Solution -) 500 mg GT TID [facility] Last Admin: 02/15/17 06:38 Dose: 500 mg Bacitracin (Bacitracin -) 1 applic TP BID [facility] Last Admin: 02/14/17 21:12 Dose: 1 applic Doxazosin Mesylate (Cardura -) 2 mg GT DAILY [facility] Last Admin: 02/14/17 09:14 Dose: 2 mg Escitalopram Oxalate (Lexapro Oral Solution -) 10 mg GT DAILY [facility] Last Admin: 02/14/17 09:14 Dose: 10 mg Fentanyl (Duragesic 12mcg Patch -) 1 patch TD Q72H [facility] Last Admin: 02/14/17 10:33 Dose: 1 patch Ferrous Sulfate (Feosol) 300 mg GT DAILY [facility] Last Admin: 02/14/17 09:14 Dose: 300 mg Insulin Aspart (Novolog Vial Sliding Scale -) 1 vial SQ ACHS [facility] PRN Reason: Protocol Last Admin: 02/15/17 06:39 Dose: 7 units Insulin Detemir (Levemir Vial) 15 units SQ AM [facility] Last Admin: 02/15/17 06:38 Dose: 15 units Insulin Detemir (Levemir Vial) 10 units SQ HS [facility] Last Admin: 02/14/17 21:01 Dose: 10 units Miscellaneous (Duragesic Patch Waste) 1 each TD PRN PRN Last Admin: 02/14/17 10:36 Dose: 1 each Nystatin (Nystop Powder -) 1 applic TP BID [facility] Last Admin: 02/14/17 21:02 Dose: 1 applic Ranitidine HCl (Zantac Oral Solution -) 150 mg GT DAILY [facility] Last Admin: 02/14/17 09:15 Dose: 150 mg Gen: nonverbal Heart: RRR Lung: decreased breath sounds at the bases Abd: soft, nontender Ext: no edema, bilateral BKA Laboratory Results - last 24 hr 02/14/17 02/14/17 02/14/17 11:27 13:40 13:40 WBC 11.6 H RBC 2.49 L Hgb 8.0 L Hct 25.4 L MCV 102.0 H MCH 32.3 MCHC 31.6 L RDW 20.1 H Plt Count 356 MPV 8.2 Total Counted 100 Neutrophils % No Result Required. Neutrophils % (Manual) 61.0 Band Neutrophils % 1.0 Lymphocytes % No Result Required. Lymphocytes % (Manual) 32.0 Monocytes % Monocytes % (Manual) 4 Eosinophils % Eosinophils % (Manual) 2.0 D Basophils % Anisocytosis 1+ Microcytosis 1+ Sodium 147 H Potassium 4.4 Chloride 113 H Carbon Dioxide 26 Anion Gap 8 BUN 80 H D Creatinine 1.2 H POC Glucometer 233 Random Glucose 174 H D Calcium 8.9 02/14/17 02/14/17 02/15/17 17:14 20:49 06:37 WBC RBC Hgb Hct MCV MCH MCHC RDW Plt Count MPV Total Counted Neutrophils % Neutrophils % (Manual) Band Neutrophils % Lymphocytes % Lymphocytes % (Manual) Monocytes % Monocytes % (Manual) Eosinophils % Eosinophils % (Manual) Basophils % Anisocytosis Microcytosis Sodium Potassium Chloride Carbon Dioxide Anion Gap BUN Creatinine POC Glucometer 210 211 324 Random Glucose Calcium 02/15/17 08:34 WBC 9.3 RBC 2.74 L Hgb 8.7 L Hct 28.0 L MCV 102.1 H MCH 31.9 MCHC 31.2 L RDW 20.2 H Plt Count 358 MPV 8.2 Total Counted Neutrophils % 59.3 Neutrophils % (Manual) Band Neutrophils % Lymphocytes % 33.4 Lymphocytes % (Manual) Monocytes % 6.0 Monocytes % (Manual) Eosinophils % 0.8 Eosinophils % (Manual) Basophils % 0.5 Anisocytosis Microcytosis Sodium Potassium Chloride Carbon Dioxide Anion Gap BUN Creatinine POC Glucometer Random Glucose Calcium Problem List - Problems (1) Diabetes Code(s): E11.9 - TYPE 2 DIABETES MELLITUS WITHOUT COMPLICATIONS Qualifiers: Diabetes mellitus type: type 2 Diabetes mellitus complication detail: with other skin ulcer (2) HTN (hypertension) Code(s): I10 - ESSENTIAL (PRIMARY) HYPERTENSION Qualifiers: Hypertension type: essential hypertension Qualified Code(s): I10 - Essential (primary) hypertension (3) ARF (acute renal failure) Code(s): N17.9 - ACUTE KIDNEY FAILURE, UNSPECIFIED (4) Lactic acidosis Code(s): E87.2 - ACIDOSIS (5) UTI (urinary tract infection) Code(s): N39.0 - URINARY TRACT INFECTION, SITE NOT SPECIFIED Qualifiers: Urinary tract infection type: site unspecified Hematuria presence: without hematuria Qualified Code(s): N39.0 - Urinary tract infection, site not specified (6) Decubitus ulcer Code(s): L89.90 - PRESSURE ULCER OF UNSPECIFIED SITE, UNSPECIFIED STAGE Qualifiers: Pressure ulcer location: sacral region Pressure ulcer stage: unspecified pressure ulcer stage Qualified Code(s): L89.159 - Pressure ulcer of sacral region, unspecified stage (7) Severe sepsis Code(s): A41.9 - SEPSIS, UNSPECIFIED ORGANISM; R65.20 - SEVERE SEPSIS WITHOUT SEPTIC SHOCK A/P UTI Sacral Decubitus Ulcer h/o CVA HTN DM Hyperlipidemia Dementia h/o Bilateral BKA - ID follow up - wound care - enteral feeds - aspiration precautions - DVT prophylaxis - poor overall prognosis, consider palliative care Dr Galeana
[2017-02-15] MEDS ORDERED: PT OWN MED DRAWER 7, Y5N ONE ×2 (09:30→21:06)
[2017-02-15] MEDS: DOXAZOSIN MESYLATE 2 MG TABLET (FP) GT SCH (09:44)
[2017-02-15] MEDS: ESCITALOPRAM OXALATE 5 MG/5 ML GT SCH (09:44)
[2017-02-15] MEDS: RANITIDINE HCL 150 MG/10 ML UNIT-DOSE GT SCH (09:44)
[2017-02-15] MEDS: FERROUS SO4 300 MG/5 ML ORAL SOLN UNIT DOSE CUPS GT SCH (09:44)
[2017-02-15] MEDS: BACITRACIN 15 GM TUBE TOPICAL OINTMENT TP SCH ×2 (09:45→21:54)
[2017-02-15] MEDS: NYSTATIN POWDER 100,000 UNITS/GM - 15 GM TOPICAL POWDER TP SCH ×2 (09:45→22:02)
--- NOTE | 2017-02-15 10:35 | PN ---
Progress Note (short form) - Note Progress Note: Renal follow up for Hypernatremia Pt seen and examined at the bedside pt febrile no IV access pt very lethargic not in distress Vital Signs Temperature 101 F H 02/15/17 10:00 Pulse Rate 107 H 02/15/17 10:00 Respiratory Rate 22 02/15/17 10:00 Blood Pressure 111/60 02/15/17 10:00 O2 Sat by Pulse Oximetry (%) 100 02/14/17 21:00 Intake & Output 02/12/17 02/13/17 02/14/17 02/15/17 23:59 23:59 23:59 23:59 Intake Total 951 915 2351 720 Output Total 500 1000 400 100 Balance 240 -760 740 620 Weight 43.59 kg 48.988 kg 43.363 kg NAD not alert RRR CTA (anterior exam) soft NT/ND No LE edema, b/L BKA CBC, BMP 02/15/17 08:34 02/14/17 13:40 Current Medications Acetaminophen (Tylenol Oral Solution -) 650 mg PO Q6H PRN PRN Reason: FEVER OR PAIN Last Admin: 02/15/17 06:38 Dose: 650 mg Acetaminophen (Tylenol Suppository -) 650 mg [place] Q6H PRN PRN Reason: FEVER OR PAIN Last Admin: 02/14/17 20:48 Dose: 650 mg Ascorbic Acid (Vitamin C Oral Solution -) 500 mg GT TID [facility] Last Admin: 02/15/17 06:38 Dose: 500 mg Bacitracin (Bacitracin -) 1 applic TP BID [facility] Last Admin: 02/15/17 09:45 Dose: 1 applic Doxazosin Mesylate (Cardura -) 2 mg GT DAILY [facility] Last Admin: 02/15/17 09:44 Dose: 2 mg Escitalopram Oxalate (Lexapro Oral Solution -) 10 mg GT DAILY [facility] Last Admin: 02/15/17 09:44 Dose: 10 mg Fentanyl (Duragesic 12mcg Patch -) 1 patch TD Q72H [facility] Last Admin: 02/14/17 10:33 Dose: 1 patch Ferrous Sulfate (Feosol) 300 mg GT DAILY [facility] Last Admin: 02/15/17 09:44 Dose: 300 mg Insulin Aspart (Novolog Vial Sliding Scale -) 1 vial SQ ACHS [facility] PRN Reason: Protocol Last Admin: 02/15/17 06:39 Dose: 7 units Insulin Detemir (Levemir Vial) 15 units SQ AM [facility] Last Admin: 02/15/17 06:38 Dose: 15 units Insulin Detemir (Levemir Vial) 10 units SQ HS [facility] Last Admin: 02/14/17 21:01 Dose: 10 units Miscellaneous (Duragesic Patch Waste) 1 each TD PRN PRN Last Admin: 02/14/17 10:36 Dose: 1 each Nystatin (Nystop Powder -) 1 applic TP BID [facility] Last Admin: 02/15/17 09:45 Dose: 1 applic Ranitidine HCl (Zantac Oral Solution -) 150 mg GT DAILY [facility] Last Admin: 02/15/17 09:44 Dose: 150 mg 81 year old woman with PMhx of CVA, dementia, non-verbal, b/l BKA, HTN, IDDM, HLD, thyroid disease, anemia presented to ER from [facility] for fever. Pt known to our service from prior admissions for hypernatrema and GIANNI. #Acute Renal Injury with Hypernatremia in setting of Fever/Sepsis etiology appears to be hypovolemia with increased insensible losses with fever start 1/2 NS if able to get IV access prognosis remains poor continue tube feeds with free water antipyretics as needed supportive care consider hospice Isela Manzano DO
[2017-02-15] MEDS ORDERED: SODIUM CHLORIDE 0.45% 1,000 ML IV SCH (10:45)
[2017-02-15] MEDS ORDERED: INSULIN (NOVOLOG) ASPART 100 UNITS/ML 10ML VIAL ONE ×3 (11:09→21:04)
[2017-02-15] MEDS: SODIUM CHLORIDE 1,000 ML IV SCH (11:51)
[2017-02-16] MEDS: ACETAMINOPHEN 650 MG/20.3 ML ORAL SOLUTION (CUPS) PO PRN ×3 (03:30→22:51)
[2017-02-16] MEDS ORDERED: PT OWN MED DRAWER 7, Y5N ONE ×3 (07:02→17:03)
[2017-02-16] MEDS: ASCORBIC ACID 500 MG/5 ML UNIT DOSE CUP GT SCH ×3 (07:05→22:06)
[2017-02-16] MEDS: INSULIN SLIDING SCALE (NOVOLOG) 1 VIAL SQ SCH ×4 (07:05→22:23)
[2017-02-16] MEDS: INSULIN DETEMIR 100 UNITS/ML MDV SQ SCH ×2 (07:05→22:22)
[2017-02-16 07:56] LABS: ANION GAP 6 (8-16); CALCIUM 8.2 mg/dL (8.5-10.1); CO2 25 mmol/L (21-32); CREATININE 1.3 mg/dL (0.55-1.02); MAGNESIUM 3.1 mg/dL (1.8-2.4); PHOSPHOROUS 2.9 mg/dL (2.5-4.9)
[2017-02-16 09:10] LABS: GLUCOSE,RANDOM 341 mg/dL (74-106)
[2017-02-16] MEDS: RANITIDINE HCL 150 MG/10 ML UNIT-DOSE GT SCH (09:23)
[2017-02-16] MEDS: FERROUS SO4 300 MG/5 ML ORAL SOLN UNIT DOSE CUPS GT SCH (09:23)
[2017-02-16] MEDS: ESCITALOPRAM OXALATE 5 MG/5 ML GT SCH (09:24)
[2017-02-16] MEDS: BACITRACIN 15 GM TUBE TOPICAL OINTMENT TP SCH ×2 (09:24→22:05)
[2017-02-16] MEDS: DOXAZOSIN MESYLATE 2 MG TABLET (FP) GT SCH (09:24)
[2017-02-16] MEDS: NYSTATIN POWDER 100,000 UNITS/GM - 15 GM TOPICAL POWDER TP SCH ×2 (09:25→22:07)
--- NOTE | 2017-02-16 10:13 | PN ---
Progress Note, Physician History of Present Illness: Awake, non verbal. Remains persistantly febrile Pale, tachypneic Dry mucus membranes WBC WNL Blood c/s no growth - Current Medication List Current Medications: Active Medications Acetaminophen (Tylenol Oral Solution -) 650 mg PO Q6H PRN PRN Reason: FEVER OR PAIN Last Admin: 02/16/17 09:45 Dose: 650 mg Acetaminophen (Tylenol Suppository -) 650 mg [place] Q6H PRN PRN Reason: FEVER OR PAIN Last Admin: 02/14/17 20:48 Dose: 650 mg Ascorbic Acid (Vitamin C Oral Solution -) 500 mg GT TID [facility] Last Admin: 02/16/17 07:05 Dose: 500 mg Bacitracin (Bacitracin -) 1 applic TP BID [facility] Last Admin: 02/16/17 09:24 Dose: 1 applic Doxazosin Mesylate (Cardura -) 2 mg GT DAILY [facility] Last Admin: 02/16/17 09:24 Dose: 2 mg Escitalopram Oxalate (Lexapro Oral Solution -) 10 mg GT DAILY [facility] Last Admin: 02/16/17 09:24 Dose: 10 mg Fentanyl (Duragesic 12mcg Patch -) 1 patch TD Q72H [facility] Last Admin: 02/14/17 10:33 Dose: 1 patch Ferrous Sulfate (Feosol) 300 mg GT DAILY [facility] Last Admin: 02/16/17 09:23 Dose: 300 mg Sodium Chloride (Normal Saline -) 1,000 mls @ 75 mls/hr IV ASDIR [facility] Last Admin: 02/15/17 11:51 Dose: 75 mls/hr Insulin Aspart (Novolog Vial Sliding Scale -) 1 vial SQ ACHS [facility] PRN Reason: Protocol Last Admin: 02/16/17 07:05 Dose: 8 units Insulin Detemir (Levemir Vial) 15 units SQ AM [facility] Last Admin: 02/16/17 07:05 Dose: 15 units Insulin Detemir (Levemir Vial) 10 units SQ HS [facility] Last Admin: 02/15/17 22:03 Dose: 10 units Miscellaneous (Duragesic Patch Waste) 1 each TD PRN PRN Last Admin: 02/14/17 10:36 Dose: 1 each Nystatin (Nystop Powder -) 1 applic TP BID [facility] Last Admin: 02/16/17 09:25 Dose: 1 applic Ranitidine HCl (Zantac Oral Solution -) 150 mg GT DAILY [facility] Last Admin: 02/16/17 09:23 Dose: 150 mg - Objective Vital Signs: Vital Signs Temperature 101.8 F H 02/16/17 06:00 Pulse Rate 108 H 02/16/17 06:00 Respiratory Rate 20 02/16/17 06:00 Blood Pressure 105/55 02/16/17 06:00 O2 Sat by Pulse Oximetry (%) 99 02/15/17 20:24 Constitutional: Yes: Mild Distress Eyes: Yes: Conjunctiva Clear Cardiovascular: Yes: Regular Rate and Rhythm, Murmur, S1, S2 Respiratory: Yes: Diminished Gastrointestinal: Yes: Normal Bowel Sounds, Soft. No: Tenderness Extremities: Yes: Other (S/P bilateral BKA Partial wound dehiscence L BKA stump No purulent drainage) Labs: CBC, BMP 02/15/17 08:34 02/16/17 06:00 INR, PTT INR 0.94 (0.82-1.09) 01/26/17 16:32 Assessment/Plan Persistant high grade fever Hx resistant pathogens Dementia Resume empiric antibiotic therapy meropenem, vancomycin x 1 Contact precautions
[2017-02-16] MEDS ORDERED: MEROPENEM 500 MG VIAL (RESTRICTED TO ID) IVPB SCH (10:30)
[2017-02-16] MEDS ORDERED: VANCOMYCIN 1,000 MG in DEXTROSE 5%-WATER - 250 ML IVPB ONE (11:00)
--- NOTE | 2017-02-16 11:27 | PN ---
Progress Note (short form) - Note Progress Note: PULMONARY FEBRILE/NONVERBAL PALE/ANICTERIC DIMINISHED BREATH SOUNDS BASES DIFFUSE PRECORDIAL SYSTOLIC MURMUR BS+ SOFT B/L BKA LABS/MEDS/NOTES/IMAGING/MICRO NOTED URINE : PROTEUS CXR ELEVATED RIGHT ANGELIKA/NO PNEUMONIA UTI RESOLVED Severe Sepsis resolved Lactic Acidosis resolved Acute Kidney Injury B/L BKA HTN DM Advanced Dementia ABX restarted as per ID Monitor urine output, creatinine O2 to keep Spo2 >90% VTE prophylaxis/glycemic control DNR/DNI R KEVON VERMA
[2017-02-16] MEDS: MEROPENEM 500 MG PUSH 500 MG/10 ML DISP.SYRIN IVPUSH SCH ×2 (11:28→17:25)
[2017-02-16] MEDS: SODIUM CHLORIDE 1,000 ML IV SCH (14:29)
--- NOTE | 2017-02-16 14:43 | PN ---
Progress Note, Physician Chief Complaint: Sepsis Infected decubitus ulcer History of Present Illness: NAD, in bed -tachycardiac -seen by ID -abx restarted due to Fevers -BC negative - Current Medication List Current Medications: Active Medications Acetaminophen (Tylenol Oral Solution -) 650 mg PO Q6H PRN PRN Reason: FEVER OR PAIN Last Admin: 02/16/17 09:45 Dose: 650 mg Acetaminophen (Tylenol Suppository -) 650 mg [place] Q6H PRN PRN Reason: FEVER OR PAIN Last Admin: 02/14/17 20:48 Dose: 650 mg Ascorbic Acid (Vitamin C Oral Solution -) 500 mg GT TID [facility] Last Admin: 02/16/17 14:29 Dose: 500 mg Bacitracin (Bacitracin -) 1 applic TP BID [facility] Last Admin: 02/16/17 09:24 Dose: 1 applic Doxazosin Mesylate (Cardura -) 2 mg GT DAILY [facility] Last Admin: 02/16/17 09:24 Dose: 2 mg Escitalopram Oxalate (Lexapro Oral Solution -) 10 mg GT DAILY [facility] Last Admin: 02/16/17 09:24 Dose: 10 mg Fentanyl (Duragesic 12mcg Patch -) 1 patch TD Q72H [facility] Last Admin: 02/14/17 10:33 Dose: 1 patch Ferrous Sulfate (Feosol) 300 mg GT DAILY [facility] Last Admin: 02/16/17 09:23 Dose: 300 mg Sodium Chloride (Normal Saline -) 1,000 mls @ 75 mls/hr IV ASDIR [facility] Last Admin: 02/16/17 14:29 Dose: 75 mls/hr Meropenem (Merrem (Restricted To Id) -) 500 mg in 10 mls @ 120 mls/hr IVPUSH Q8H-IV [facility] Last Admin: 02/16/17 11:28 Dose: 120 mls/hr Insulin Aspart (Novolog Vial Sliding Scale -) 1 vial SQ ACHS [facility] PRN Reason: Protocol Last Admin: 02/16/17 12:08 Dose: 7 units Insulin Detemir (Levemir Vial) 15 units SQ AM [facility] Last Admin: 02/16/17 07:05 Dose: 15 units Insulin Detemir (Levemir Vial) 10 units SQ HS [facility] Last Admin: 02/15/17 22:03 Dose: 10 units Miscellaneous (Duragesic Patch Waste) 1 each TD PRN PRN Last Admin: 02/14/17 10:36 Dose: 1 each Nystatin (Nystop Powder -) 1 applic TP BID [facility] Last Admin: 02/16/17 09:25 Dose: 1 applic Ranitidine HCl (Zantac Oral Solution -) 150 mg GT DAILY [facility] Last Admin: 02/16/17 09:23 Dose: 150 mg - Objective Vital Signs: Vital Signs Temperature 99.6 F 02/16/17 14:15 Pulse Rate 98 H 02/16/17 14:15 Respiratory Rate 16 02/16/17 14:15 Blood Pressure 115/68 02/16/17 14:15 O2 Sat by Pulse Oximetry (%) 99 02/16/17 09:00 Constitutional: Yes: Well Nourished, No Distress, Calm Cardiovascular: Yes: Regular Rate and Rhythm Respiratory: Yes: Regular Gastrointestinal: Yes: Normal Bowel Sounds Neurological: Yes: Pre-Existing Deficit Labs: CBC, BMP 02/15/17 08:34 02/16/17 06:00 INR, PTT INR 0.94 (0.82-1.09) 01/26/17 16:32 Problem List - Problems (1) Decubitus ulcer Assessment/Plan: -Chronic -offloading Code(s): L89.90 - PRESSURE ULCER OF UNSPECIFIED SITE, UNSPECIFIED STAGE Qualifiers: Pressure ulcer location: sacral region Pressure ulcer stage: unspecified pressure ulcer stage Qualified Code(s): L89.159 - Pressure ulcer of sacral region, unspecified stage (2) Septic shock Assessment/Plan: -leukocytosis improved -seen by ID -restarted on IV abx -BC negative -febrile -tylenol 650 mg Q6H PRN for fever over 100.0 F Code(s): A41.9 - SEPSIS, UNSPECIFIED ORGANISM; R65.21 - SEVERE SEPSIS WITH SEPTIC SHOCK (3) Type 2 diabetes mellitus with autonomic neuropathy Assessment/Plan: -A1c at 9.6 -endocrinology consult -insulin -BGM Code(s): E11.43 - TYPE 2 DIABETES W DIABETIC AUTONOMIC (POLY)NEUROPATHY (4) UTI (urinary tract infection) Assessment/Plan: -restarted on IV abx -ID consult -Gonzales catheter Code(s): N39.0 - URINARY TRACT INFECTION, SITE NOT SPECIFIED Qualifiers: Urinary tract infection type: site unspecified Hematuria presence: without hematuria Qualified Code(s): N39.0 - Urinary tract infection, site not specified (5) Anemia Assessment/Plan: -chronic -H/H stable Code(s): D64.9 - ANEMIA, UNSPECIFIED Qualifiers: Anemia type: iron deficiency Iron deficiency anemia type: unspecified iron deficiency Qualified Code(s): D50.9 - Iron deficiency anemia, unspecified Assessment/Plan see problem list
--- NOTE | 2017-02-16 15:57 | PN ---
Progress Note (short form) - Note Progress Note: Renal follow up for Hypernatremia Pt seen and examined at the bedside remains frebrile on IVF conley in place with dark yellow urine BP ok on IV Abx Vital Signs Temperature 99.6 F 02/16/17 14:15 Pulse Rate 98 H 02/16/17 14:15 Respiratory Rate 16 02/16/17 14:15 Blood Pressure 115/68 02/16/17 14:15 O2 Sat by Pulse Oximetry (%) 99 02/16/17 09:00 Intake & Output 02/13/17 02/14/17 02/15/17 02/16/17 23:59 23:59 23:59 23:59 Intake Total 240 1140 2240 1400 Output Total 1000 400 600 450 Balance -246 611 5456 950 Weight 48.988 kg 43.363 kg 41.64 kg NAD not alert RRR CTA (anterior exam) soft NT/ND No LE edema, b/L BKA CBC, BMP 02/15/17 08:34 02/16/17 06:00 Current Medications Acetaminophen (Tylenol Oral Solution -) 650 mg PO Q6H PRN PRN Reason: FEVER OR PAIN Last Admin: 02/16/17 09:45 Dose: 650 mg Acetaminophen (Tylenol Suppository -) 650 mg [place] Q6H PRN PRN Reason: FEVER OR PAIN Last Admin: 02/14/17 20:48 Dose: 650 mg Ascorbic Acid (Vitamin C Oral Solution -) 500 mg GT TID [facility] Last Admin: 02/16/17 14:29 Dose: 500 mg Bacitracin (Bacitracin -) 1 applic TP BID [facility] Last Admin: 02/16/17 09:24 Dose: 1 applic Doxazosin Mesylate (Cardura -) 2 mg GT DAILY [facility] Last Admin: 02/16/17 09:24 Dose: 2 mg Escitalopram Oxalate (Lexapro Oral Solution -) 10 mg GT DAILY [facility] Last Admin: 02/16/17 09:24 Dose: 10 mg Fentanyl (Duragesic 12mcg Patch -) 1 patch TD Q72H [facility] Last Admin: 02/14/17 10:33 Dose: 1 patch Ferrous Sulfate (Feosol) 300 mg GT DAILY [facility] Last Admin: 02/16/17 09:23 Dose: 300 mg Sodium Chloride (Normal Saline -) 1,000 mls @ 75 mls/hr IV ASDIR [facility] Last Admin: 02/16/17 14:29 Dose: 75 mls/hr Meropenem (Merrem (Restricted To Id) -) 500 mg in 10 mls @ 120 mls/hr IVPUSH Q8H-IV [facility] Last Admin: 02/16/17 11:28 Dose: 120 mls/hr Insulin Aspart (Novolog Vial Sliding Scale -) 1 vial SQ ACHS [facility] PRN Reason: Protocol Last Admin: 02/16/17 12:08 Dose: 7 units Insulin Detemir (Levemir Vial) 15 units SQ AM [facility] Last Admin: 02/16/17 07:05 Dose: 15 units Insulin Detemir (Levemir Vial) 10 units SQ HS [facility] Last Admin: 02/15/17 22:03 Dose: 10 units Miscellaneous (Duragesic Patch Waste) 1 each TD PRN PRN Last Admin: 02/14/17 10:36 Dose: 1 each Nystatin (Nystop Powder -) 1 applic TP BID [facility] Last Admin: 02/16/17 09:25 Dose: 1 applic Ranitidine HCl (Zantac Oral Solution -) 150 mg GT DAILY [facility] Last Admin: 02/16/17 09:23 Dose: 150 mg 81 year old woman with PMhx of CVA, dementia, non-verbal, b/l BKA, HTN, IDDM, HLD, thyroid disease, anemia presented to ER from [facility] for fever. Pt known to our service from prior admissions for hypernatrema and GIANNI. 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
[2017-02-17] MEDS: MEROPENEM 500 MG PUSH 500 MG/10 ML DISP.SYRIN IVPUSH SCH ×3 (01:42→17:44)
[2017-02-17] MEDS: SODIUM CHLORIDE 1,000 ML IV SCH ×3 (02:34→17:46)
[2017-02-17] MEDS: INSULIN DETEMIR 100 UNITS/ML MDV SQ SCH ×2 (06:20→21:33)
[2017-02-17] MEDS: INSULIN SLIDING SCALE (NOVOLOG) 1 VIAL SQ SCH ×5 (06:21→21:30)
[2017-02-17] MEDS: ASCORBIC ACID 500 MG/5 ML UNIT DOSE CUP GT SCH ×3 (06:23→21:34)
--- NOTE | 2017-02-17 08:19 | PN ---
Progress Note, Physician History of Present Illness: Awake, non verbal. Antibiotics resumed because of persistant temps and tachypnea Temps down today Blood c/s prelim no growth - Current Medication List Current Medications: Active Medications Acetaminophen (Tylenol Oral Solution -) 650 mg PO Q6H PRN PRN Reason: FEVER OR PAIN Last Admin: 02/16/17 22:51 Dose: 650 mg Acetaminophen (Tylenol Suppository -) 650 mg [place] Q6H PRN PRN Reason: FEVER OR PAIN Last Admin: 02/14/17 20:48 Dose: 650 mg Ascorbic Acid (Vitamin C Oral Solution -) 500 mg GT TID [facility] Last Admin: 02/17/17 06:23 Dose: 500 mg Bacitracin (Bacitracin -) 1 applic TP BID [facility] Last Admin: 02/16/17 22:05 Dose: 1 applic Doxazosin Mesylate (Cardura -) 2 mg GT DAILY [facility] Last Admin: 02/16/17 09:24 Dose: 2 mg Escitalopram Oxalate (Lexapro Oral Solution -) 10 mg GT DAILY [facility] Last Admin: 02/16/17 09:24 Dose: 10 mg Fentanyl (Duragesic 12mcg Patch -) 1 patch TD Q72H [facility] Last Admin: 02/14/17 10:33 Dose: 1 patch Ferrous Sulfate (Feosol) 300 mg GT DAILY [facility] Last Admin: 02/16/17 09:23 Dose: 300 mg Sodium Chloride (Normal Saline -) 1,000 mls @ 75 mls/hr IV ASDIR [facility] Last Admin: 02/16/17 14:29 Dose: 75 mls/hr Meropenem (Merrem (Restricted To Id) -) 500 mg in 10 mls @ 120 mls/hr IVPUSH Q8H-IV [facility] Last Admin: 02/17/17 01:42 Dose: 120 mls/hr Insulin Aspart (Novolog Vial Sliding Scale -) 1 vial SQ ACHS [facility] PRN Reason: Protocol Last Admin: 02/17/17 06:21 Dose: 2 units Insulin Detemir (Levemir Vial) 15 units SQ AM [facility] Last Admin: 02/17/17 06:20 Dose: 15 units Insulin Detemir (Levemir Vial) 10 units SQ HS [facility] Last Admin: 02/16/17 22:22 Dose: 10 units Miscellaneous (Duragesic Patch Waste) 1 each TD PRN PRN Last Admin: 02/14/17 10:36 Dose: 1 each Nystatin (Nystop Powder -) 1 applic TP BID [facility] Last Admin: 02/16/17 22:07 Dose: 1 applic Ranitidine HCl (Zantac Oral Solution -) 150 mg GT DAILY [facility] Last Admin: 02/16/17 09:23 Dose: 150 mg - Objective Vital Signs: Vital Signs Temperature 99.3 F 02/17/17 06:00 Pulse Rate 105 H 02/17/17 06:00 Respiratory Rate 18 02/17/17 06:00 Blood Pressure 104/53 02/17/17 06:00 O2 Sat by Pulse Oximetry (%) 99 02/16/17 21:00 Constitutional: Yes: No Distress, Pallor Cardiovascular: Yes: Regular Rate and Rhythm, Tachycardia, Murmur, S1, S2 Respiratory: Yes: Diminished Gastrointestinal: Yes: Normal Bowel Sounds, Soft. No: Tenderness Musculoskeletal: Yes: Other (S/P Bilateral BKA) Labs: CBC, BMP 02/15/17 08:34 02/16/17 06:00 INR, PTT INR 0.94 (0.82-1.09) 01/26/17 16:32 Assessment/Plan Persistant high grade fever Hx resistant pathogens Dementia Continue empiric meropenem. Vancomycin x 1 given Contact precautions
[2017-02-17] MEDS ORDERED: PT OWN MED DRAWER 7, Y5N ONE ×2 (09:30→17:40)
--- NOTE | 2017-02-17 10:03 | PN ---
Progress Note, Physician Chief Complaint: Sepsis Decubitus Ulcer History of Present Illness: Patient is awake, non-verbal, afebrile, not in respiratory distress. - Current Medication List Current Medications: Active Medications Acetaminophen (Tylenol Oral Solution -) 650 mg PO Q6H PRN PRN Reason: FEVER OR PAIN Last Admin: 02/16/17 22:51 Dose: 650 mg Acetaminophen (Tylenol Suppository -) 650 mg [place] Q6H PRN PRN Reason: FEVER OR PAIN Last Admin: 02/14/17 20:48 Dose: 650 mg Ascorbic Acid (Vitamin C Oral Solution -) 500 mg GT TID [facility] Last Admin: 02/17/17 06:23 Dose: 500 mg Bacitracin (Bacitracin -) 1 applic TP BID [facility] Last Admin: 02/16/17 22:05 Dose: 1 applic Doxazosin Mesylate (Cardura -) 2 mg GT DAILY [facility] Last Admin: 02/16/17 09:24 Dose: 2 mg Escitalopram Oxalate (Lexapro Oral Solution -) 10 mg GT DAILY [facility] Last Admin: 02/16/17 09:24 Dose: 10 mg Fentanyl (Duragesic 12mcg Patch -) 1 patch TD Q72H [facility] Last Admin: 02/14/17 10:33 Dose: 1 patch Ferrous Sulfate (Feosol) 300 mg GT DAILY [facility] Last Admin: 02/16/17 09:23 Dose: 300 mg Sodium Chloride (Normal Saline -) 1,000 mls @ 75 mls/hr IV ASDIR [facility] Last Admin: 02/16/17 14:29 Dose: 75 mls/hr Meropenem (Merrem (Restricted To Id) -) 500 mg in 10 mls @ 120 mls/hr IVPUSH Q8H-IV [facility] Last Admin: 02/17/17 01:42 Dose: 120 mls/hr Insulin Aspart (Novolog Vial Sliding Scale -) 1 vial SQ ACHS [facility] PRN Reason: Protocol Last Admin: 02/17/17 06:21 Dose: 2 units Insulin Detemir (Levemir Vial) 15 units SQ AM [facility] Last Admin: 02/17/17 06:20 Dose: 15 units Insulin Detemir (Levemir Vial) 10 units SQ HS [facility] Last Admin: 02/16/17 22:22 Dose: 10 units Miscellaneous (Duragesic Patch Waste) 1 each TD PRN PRN Last Admin: 02/14/17 10:36 Dose: 1 each Nystatin (Nystop Powder -) 1 applic TP BID [facility] Last Admin: 02/16/17 22:07 Dose: 1 applic Ranitidine HCl (Zantac Oral Solution -) 150 mg GT DAILY [facility] Last Admin: 02/16/17 09:23 Dose: 150 mg - Objective Vital Signs: Vital Signs Temperature 99.3 F 02/17/17 06:00 Pulse Rate 105 H 02/17/17 06:00 Respiratory Rate 18 02/17/17 06:00 Blood Pressure 104/53 02/17/17 06:00 O2 Sat by Pulse Oximetry (%) 99 02/16/17 21:00 Constitutional: Yes: No Distress, Calm HENT: Yes: Normocephalic Neck: Yes: Supple, Trachea Midline Cardiovascular: Yes: Regular Rate and Rhythm, Tachycardia (HR = 105 bpm), S1, S2 Respiratory: Yes: Regular, Diminished Gastrointestinal: Yes: Normal Bowel Sounds, Soft Extremities: Yes: Amputation (S/P B/L BKA) Labs: CBC, BMP 02/15/17 08:34 02/16/17 06:00 INR, PTT INR 0.94 (0.82-1.09) 01/26/17 16:32 Problem List - Problems (1) Decubitus ulcer Code(s): L89.90 - PRESSURE ULCER OF UNSPECIFIED SITE, UNSPECIFIED STAGE Qualifiers: Pressure ulcer location: sacral region Pressure ulcer stage: unspecified pressure ulcer stage Qualified Code(s): L89.159 - Pressure ulcer of sacral region, unspecified stage (2) Septic shock Code(s): A41.9 - SEPSIS, UNSPECIFIED ORGANISM; R65.21 - SEVERE SEPSIS WITH SEPTIC SHOCK (3) Type 2 diabetes mellitus with autonomic neuropathy Code(s): E11.43 - TYPE 2 DIABETES W DIABETIC AUTONOMIC (POLY)NEUROPATHY (4) UTI (urinary tract infection) Code(s): N39.0 - URINARY TRACT INFECTION, SITE NOT SPECIFIED Qualifiers: Urinary tract infection type: site unspecified Hematuria presence: without hematuria Qualified Code(s): N39.0 - Urinary tract infection, site not specified (5) Anemia Code(s): D64.9 - ANEMIA, UNSPECIFIED Qualifiers: Anemia type: iron deficiency Iron deficiency anemia type: unspecified iron deficiency Qualified Code(s): D50.9 - Iron deficiency anemia, unspecified Assessment/Plan (1) Decubitus ulcer Assessment/Plan: -Chronic -Continue T&P (2) Septic shock Assessment/Plan: -leukocytosis resolved WBC=9.3 -ID on board -Continue IV Abx -Afebrile this AM (3) Type 2 diabetes mellitus with autonomic neuropathy Assessment/Plan: -BGM -Glucose = 216 mg/dL -Continue insulin -Endocrinology consult (4) UTI (urinary tract infection) Assessment/Plan: -Continue IV Abx -ID on board (5) Anemia Assessment/Plan: -Chronic -Monitor labs
--- NOTE | 2017-02-17 10:06 | PN ---
Progress Note (short form) - Note Progress Note: PULMONARY FEBRILE/NONVERBAL PALE/ANICTERIC DIMINISHED BREATH SOUNDS BASES DIFFUSE PRECORDIAL SYSTOLIC MURMUR BS+ SOFT B/L BKA LABS/MEDS/NOTES/IMAGING/MICRO NOTED URINE : KLEB/ESBL CXR ELEVATED RIGHT ANGELIKA/ UTI Acute Kidney Injury B/L BKA HTN DM Advanced Dementia ABX restarted as per ID Monitor urine output, creatinine O2 to keep Spo2 >90% VTE prophylaxis/glycemic control DNR/DNI R KEVON VERMA
[2017-02-17] MEDS: FERROUS SO4 300 MG/5 ML ORAL SOLN UNIT DOSE CUPS GT SCH (10:19)
[2017-02-17] MEDS: RANITIDINE HCL 150 MG/10 ML UNIT-DOSE GT SCH (10:19)
[2017-02-17] MEDS: ACETAMINOPHEN 650 MG/20.3 ML ORAL SOLUTION (CUPS) PO PRN ×2 (10:20→21:33)
[2017-02-17] MEDS: fentaNYL 12mcg/hr PATCH.TD72 TD SCH (10:21)
[2017-02-17] MEDS: BACITRACIN 15 GM TUBE TOPICAL OINTMENT TP SCH ×2 (10:22→21:44)
[2017-02-17] MEDS: NYSTATIN POWDER 100,000 UNITS/GM - 15 GM TOPICAL POWDER TP SCH ×2 (10:22→21:33)
[2017-02-17] MEDS: DOXAZOSIN MESYLATE 2 MG TABLET (FP) GT SCH (10:23)
[2017-02-17] MEDS: ESCITALOPRAM OXALATE 5 MG/5 ML GT SCH (10:23)
[2017-02-17] MEDS: FENTANYL PATCH WASTE TD PRN (17:48)
[2017-02-18] MEDS: MEROPENEM 500 MG PUSH 500 MG/10 ML DISP.SYRIN IVPUSH SCH ×3 (01:41→19:10)
[2017-02-18] MEDS: ASCORBIC ACID 500 MG/5 ML UNIT DOSE CUP GT SCH ×3 (06:07→21:44)
[2017-02-18] MEDS: INSULIN SLIDING SCALE (NOVOLOG) 1 VIAL SQ SCH ×4 (06:07→21:43)
[2017-02-18] MEDS: INSULIN DETEMIR 100 UNITS/ML MDV SQ SCH ×2 (06:07→21:42)
[2017-02-18] MEDS: SODIUM CHLORIDE 1,000 ML IV SCH (06:14)
[2017-02-18] MEDS: ACETAMINOPHEN 650 MG/20.3 ML ORAL SOLUTION (CUPS) PO PRN ×3 (07:24→21:41)
[2017-02-18 07:50] LABS: BASOPHIL 0.2 % (0-2.0); EOSINOPHIL 1.2 % (0-4.5); MCH 33.3 pg (25.7-33.7); MCHC 31.5 g/dl (32.0-36.0); MEAN CELL VOLUME 105.9 fl (80-96); NEUTROPHILS 46.6 % (42.8-82.8); PLATELET COUNT 275 K/MM3 (134-434); RDW 20.3 % (11.6-15.6); WHITE BLOOD COUNT 7.3 K/mm3 (4.0-10.0)
[2017-02-18 08:28] LABS: ALBUMIN 1.7 g/dl (3.4-5.0); ALK PHOS 80 U/L (45-117); ANION GAP 7 (8-16); BILIRUBIN,TOTAL 0.2 mg/dL (0.2-1.0); CO2 24 mmol/L (21-32); CREATININE 0.9 mg/dL (0.55-1.02); GLUCOSE,RANDOM 255 mg/dL (74-106); MAGNESIUM 2.8 mg/dL (1.8-2.4); PHOSPHOROUS 1.9 mg/dL (2.5-4.9); SGOT/AST 9 U/L (15-37); SGPT/ALT 8 U/L (12-78); TOT PROT 6.7 g/dl (6.4-8.2)
[2017-02-18] MEDS ORDERED: PT OWN MED DRAWER 7, Y5N ONE ×2 (09:59→21:32)
[2017-02-18] MEDS: RANITIDINE HCL 150 MG/10 ML UNIT-DOSE GT SCH (10:07)
[2017-02-18] MEDS: FERROUS SO4 300 MG/5 ML ORAL SOLN UNIT DOSE CUPS GT SCH (10:07)
[2017-02-18] MEDS: DOXAZOSIN MESYLATE 2 MG TABLET (FP) GT SCH (10:08)
[2017-02-18] MEDS: NYSTATIN POWDER 100,000 UNITS/GM - 15 GM TOPICAL POWDER TP SCH ×2 (10:09→21:43)
[2017-02-18] MEDS: ESCITALOPRAM OXALATE 5 MG/5 ML GT SCH (10:09)
--- NOTE | 2017-02-18 10:18 | PN ---
Progress Note, Physician Chief Complaint: Sepsis Infected decubitus ulcer History of Present Illness: NAD, in bed -tachycardiac -febrile -seen by ID -on IV abx -BC negative - Current Medication List Current Medications: Active Medications Acetaminophen (Tylenol Oral Solution -) 650 mg PO Q6H PRN PRN Reason: FEVER OR PAIN Last Admin: 02/18/17 07:24 Dose: 650 mg Acetaminophen (Tylenol Suppository -) 650 mg [place] Q6H PRN PRN Reason: FEVER OR PAIN Last Admin: 02/14/17 20:48 Dose: 650 mg Ascorbic Acid (Vitamin C Oral Solution -) 500 mg GT TID [facility] Last Admin: 02/18/17 06:07 Dose: 500 mg Bacitracin (Bacitracin -) 1 applic TP BID [facility] Last Admin: 02/17/17 21:44 Dose: 1 applic Doxazosin Mesylate (Cardura -) 2 mg GT DAILY [facility] Last Admin: 02/18/17 10:08 Dose: 2 mg Escitalopram Oxalate (Lexapro Oral Solution -) 10 mg GT DAILY [facility] Last Admin: 02/18/17 10:09 Dose: 10 mg Fentanyl (Duragesic 12mcg Patch -) 1 patch TD Q72H [facility] Last Admin: 02/17/17 10:21 Dose: 1 patch Ferrous Sulfate (Feosol) 300 mg GT DAILY [facility] Last Admin: 02/18/17 10:07 Dose: 300 mg Sodium Chloride (Normal Saline -) 1,000 mls @ 75 mls/hr IV ASDIR [facility] Last Admin: 02/18/17 06:14 Dose: 75 mls/hr Meropenem (Merrem (Restricted To Id) -) 500 mg in 10 mls @ 120 mls/hr IVPUSH Q8H-IV [facility] Last Admin: 02/18/17 10:09 Dose: 120 mls/hr Insulin Aspart (Novolog Vial Sliding Scale -) 1 vial SQ ACHS [facility] PRN Reason: Protocol Last Admin: 02/18/17 06:07 Dose: 5 units Insulin Detemir (Levemir Vial) 15 units SQ AM [facility] Last Admin: 02/18/17 06:07 Dose: 15 units Insulin Detemir (Levemir Vial) 10 units SQ HS [facility] Last Admin: 02/17/17 21:33 Dose: 10 units Miscellaneous (Duragesic Patch Waste) 1 each TD PRN PRN Last Admin: 02/17/17 17:48 Dose: 1 each Nystatin (Nystop Powder -) 1 applic TP BID [facility] Last Admin: 02/18/17 10:09 Dose: 1 applic Ranitidine HCl (Zantac Oral Solution -) 150 mg GT DAILY [facility] Last Admin: 02/18/17 10:07 Dose: 150 mg - Objective Vital Signs: Vital Signs Temperature 103.2 F H 02/18/17 07:28 Pulse Rate 105 H 02/18/17 07:28 Respiratory Rate 20 02/18/17 07:28 Blood Pressure 111/52 02/18/17 07:28 O2 Sat by Pulse Oximetry (%) 99 02/17/17 21:00 Constitutional: Yes: Well Nourished, No Distress, Calm Cardiovascular: Yes: Regular Rate and Rhythm Respiratory: Yes: Regular Genitourinary: Yes: WNL Musculoskeletal: Yes: WNL Edema: No Wound/Incision: Yes: Dressing Dry and Intact Neurological: Yes: Pre-Existing Deficit Labs: CBC, BMP 02/18/17 07:23 02/18/17 07:23 INR, PTT INR 0.94 (0.82-1.09) 01/26/17 16:32 Problem List - Problems (1) Decubitus ulcer Assessment/Plan: -Chronic -offloading -santyl -wound culture Code(s): L89.90 - PRESSURE ULCER OF UNSPECIFIED SITE, UNSPECIFIED STAGE Qualifiers: Pressure ulcer location: sacral region Pressure ulcer stage: unspecified pressure ulcer stage Qualified Code(s): L89.159 - Pressure ulcer of sacral region, unspecified stage (2) Septic shock Assessment/Plan: -seen by ID -IV abx -repeat BC,UC,WC -febrile 103 -tylenol 650 mg Q6H PRN for fever over 100.0 F -apply cooling blanket Code(s): A41.9 - SEPSIS, UNSPECIFIED ORGANISM; R65.21 - SEVERE SEPSIS WITH SEPTIC SHOCK (3) Type 2 diabetes mellitus with autonomic neuropathy Assessment/Plan: -A1c at 9.6 -endocrinology consult -insulin -BGM Code(s): E11.43 - TYPE 2 DIABETES W DIABETIC AUTONOMIC (POLY)NEUROPATHY (4) UTI (urinary tract infection) Assessment/Plan: -IV abx -ID consult -Gonzales catheter Code(s): N39.0 - URINARY TRACT INFECTION, SITE NOT SPECIFIED Qualifiers: Urinary tract infection type: site unspecified Hematuria presence: without hematuria Qualified Code(s): N39.0 - Urinary tract infection, site not specified (5) Anemia Assessment/Plan: -chronic -H/H low today -transfuse 1 unit PRBC Code(s): D64.9 - ANEMIA, UNSPECIFIED Qualifiers: Anemia type: iron deficiency Iron deficiency anemia type: unspecified iron deficiency Qualified Code(s): D50.9 - Iron deficiency anemia, unspecified Assessment/Plan see problem list
--- NOTE | 2017-02-18 10:25 | PN ---
Progress Note (short form) - Note Progress Note: PULMONARY FEBRILE TO 103/NONVERBAL PALE/ANICTERIC DIMINISHED BREATH SOUNDS BASES DIFFUSE PRECORDIAL SYSTOLIC MURMUR BS+ SOFT B/L BKA LABS/MEDS/NOTES/IMAGING/MICRO NOTED URINE : KLEB/ESBL CXR ELEVATED RIGHT ANGELIKA/ UTI Acute Kidney Injury B/L BKA HTN DM Advanced Dementia ABX restarted as per ID Monitor urine output, creatinine O2 to keep Spo2 >90% VTE prophylaxis/glycemic control DNR/DNI Would recommend comfort care Racheal LUND MD
[2017-02-18 12:10] LABS: URINE APPEARANCE CLOUDY; URINE BILIRUBIN NEGATIVE (NEGATIVE); URINE BLOOD 1+ (NEGATIVE); URINE COLOR YELLOW; URINE GLUCOSE (UA) 1+ (NEGATIVE); URINE KETONE NEGATIVE (NEGATIVE); URINE NITRITE NEGATIVE (NEGATIVE); URINE PROTEIN NEGATIVE (NEGATIVE); URINE UROBILINOGEN NEGATIVE mg/dL (0.2-1.0)
[2017-02-18 13:05] LABS: URINE BACTERIA RARE /hpf (NONE SEEN); URINE MUCUS RARE; URINE RBC 6 /hpf (0-3); URINE WBC 19 /hpf (3-5); YEAST MODERATE
--- NOTE | 2017-02-18 13:41 | PN ---
Progress Note (short form) - Note Progress Note: Renal follow up for Hypernatremia Pt seen and examined at the bedside febrile lethargic on IVF conley with yellow urine Vital Signs Temperature 103.2 F H 02/18/17 07:28 Pulse Rate 96 H 02/18/17 11:18 Respiratory Rate 20 02/18/17 07:28 Blood Pressure 111/52 02/18/17 07:28 O2 Sat by Pulse Oximetry (%) 100 02/18/17 11:18 Intake & Output 02/15/17 02/16/17 02/17/17 02/18/17 23:59 23:59 23:59 23:59 Intake Total 2240 2450 2720 1595 Output Total 600 1800 600 Balance 6650 347 0743 1595 Weight 43.363 kg 41.64 kg 48.761 kg 49.079 kg NAD not alert RRR CTA (anterior exam) soft NT/ND No LE edema, b/L BKA CBC, BMP 02/18/17 07:23 02/18/17 07:23 Current Medications Acetaminophen (Tylenol Oral Solution -) 650 mg PO Q6H PRN PRN Reason: FEVER OR PAIN Last Admin: 02/18/17 10:32 Dose: 650 mg Acetaminophen (Tylenol Suppository -) 650 mg [place] Q6H PRN PRN Reason: FEVER OR PAIN Last Admin: 02/14/17 20:48 Dose: 650 mg Ascorbic Acid (Vitamin C Oral Solution -) 500 mg GT TID [facility] Last Admin: 02/18/17 06:07 Dose: 500 mg Bacitracin (Bacitracin -) 1 applic TP BID [facility] Last Admin: 02/17/17 21:44 Dose: 1 applic Doxazosin Mesylate (Cardura -) 2 mg GT DAILY [facility] Last Admin: 02/18/17 10:08 Dose: 2 mg Escitalopram Oxalate (Lexapro Oral Solution -) 10 mg GT DAILY [facility] Last Admin: 02/18/17 10:09 Dose: 10 mg Fentanyl (Duragesic 12mcg Patch -) 1 patch TD Q72H [facility] Last Admin: 02/17/17 10:21 Dose: 1 patch Ferrous Sulfate (Feosol) 300 mg GT DAILY [facility] Last Admin: 02/18/17 10:07 Dose: 300 mg Meropenem (Merrem (Restricted To Id) -) 500 mg in 10 mls @ 120 mls/hr IVPUSH Q8H-IV [facility] Last Admin: 02/18/17 10:09 Dose: 120 mls/hr Sodium Chloride (1/2 Normal Saline) 1,000 mls @ 75 mls/hr IV ASDIR [facility] Insulin Aspart (Novolog Vial Sliding Scale -) 1 vial SQ ACHS [facility] PRN Reason: Protocol Last Admin: 02/18/17 06:07 Dose: 5 units Insulin Detemir (Levemir Vial) 15 units SQ AM [facility] Last Admin: 02/18/17 06:07 Dose: 15 units Insulin Detemir (Levemir Vial) 10 units SQ HS [facility] Last Admin: 02/17/17 21:33 Dose: 10 units Miscellaneous (Duragesic Patch Waste) 1 each TD PRN PRN Last Admin: 02/17/17 17:48 Dose: 1 each Nystatin (Nystop Powder -) 1 applic TP BID [facility] Last Admin: 02/18/17 10:09 Dose: 1 applic Ranitidine HCl (Zantac Oral Solution -) 150 mg GT DAILY [facility] Last Admin: 02/18/17 10:07 Dose: 150 mg 81 year old woman with PMhx of CVA, dementia, non-verbal, b/l BKA, HTN, IDDM, HLD, thyroid disease, anemia presented to ER from [facility] for fever. Pt known to our service from prior admissions for hypernatrema and GIANNI. #Acute Renal Injury with Hypernatremia in setting of Fever/Sepsis Renal function improved and pt is non-oliguric change NS to 1/2 Ns given rise in serum na increase free water with G-tube feeds supportive care continue Abx as per ID overall prognosis is poor Vahid Manzano DO
[2017-02-18] MEDS: SODIUM CHLORIDE 0.45% 1,000 ML IV SCH (15:49)
[2017-02-18 20:04] LABS: URINE LEUK ESTERASE 1+ (NEGATIVE)
[2017-02-18] MEDS: BACITRACIN 15 GM TUBE TOPICAL OINTMENT TP SCH (21:42)
[2017-02-19] MEDS: MEROPENEM 500 MG PUSH 500 MG/10 ML DISP.SYRIN IVPUSH SCH ×3 (02:24→18:13)
[2017-02-19] MEDS: ASCORBIC ACID 500 MG/5 ML UNIT DOSE CUP GT SCH ×3 (06:18→21:34)
[2017-02-19] MEDS: INSULIN SLIDING SCALE (NOVOLOG) 1 VIAL SQ SCH ×4 (06:19→21:33)
[2017-02-19] MEDS: INSULIN DETEMIR 100 UNITS/ML MDV SQ SCH ×2 (06:19→21:33)
[2017-02-19 07:30] LABS: MCH 33.1 pg (25.7-33.7); MCHC 31.6 g/dl (32.0-36.0); MEAN PLT VOLUME 9.3 fl (7.5-11.1); PLATELET COUNT 254 K/MM3 (134-434); RDW 20.1 % (11.6-15.6); WHITE BLOOD COUNT 9.1 K/mm3 (4.0-10.0)
[2017-02-19 08:07] LABS: ANION GAP 7 (8-16); CALCIUM 7.7 mg/dL (8.5-10.1); CO2 21 mmol/L (21-32); CREATININE 0.8 mg/dL (0.55-1.02); GLUCOSE,RANDOM 263 mg/dL (74-106)
[2017-02-19] MEDS: ACETAMINOPHEN 650 MG/20.3 ML ORAL SOLUTION (CUPS) PO PRN (08:47)
--- NOTE | 2017-02-19 09:08 | PN ---
Progress Note, Physician History of Present Illness: PEG REINSERTED - Current Medication List Current Medications: Active Medications Acetaminophen (Tylenol Oral Solution -) 650 mg PO Q6H PRN PRN Reason: FEVER OR PAIN Last Admin: 02/19/17 08:47 Dose: 650 mg Acetaminophen (Tylenol Suppository -) 650 mg [place] Q6H PRN PRN Reason: FEVER OR PAIN Last Admin: 02/14/17 20:48 Dose: 650 mg Ascorbic Acid (Vitamin C Oral Solution -) 500 mg GT TID [facility] Last Admin: 02/19/17 06:18 Dose: 500 mg Bacitracin (Bacitracin -) 1 applic TP BID [facility] Last Admin: 02/18/17 21:42 Dose: 1 applic Doxazosin Mesylate (Cardura -) 2 mg GT DAILY [facility] Last Admin: 02/18/17 10:08 Dose: 2 mg Escitalopram Oxalate (Lexapro Oral Solution -) 10 mg GT DAILY [facility] Last Admin: 02/18/17 10:09 Dose: 10 mg Ferrous Sulfate (Feosol) 300 mg GT DAILY [facility] Last Admin: 02/18/17 10:07 Dose: 300 mg Meropenem (Merrem (Restricted To Id) -) 500 mg in 10 mls @ 120 mls/hr IVPUSH Q8H-IV [facility] Last Admin: 02/19/17 02:24 Dose: Not Given Sodium Chloride (1/2 Normal Saline) 1,000 mls @ 75 mls/hr IV ASDIR [facility] Last Admin: 02/18/17 15:49 Dose: 75 mls/hr Insulin Aspart (Novolog Vial Sliding Scale -) 1 vial SQ ACHS [facility] PRN Reason: Protocol Last Admin: 02/19/17 06:19 Dose: 5 units Insulin Detemir (Levemir Vial) 15 units SQ AM [facility] Last Admin: 02/19/17 06:19 Dose: 15 units Insulin Detemir (Levemir Vial) 10 units SQ HS [facility] Last Admin: 02/18/17 21:42 Dose: 10 units Miscellaneous (Duragesic Patch Waste) 1 each TD PRN PRN Last Admin: 02/17/17 17:48 Dose: 1 each Nystatin (Nystop Powder -) 1 applic TP BID [facility] Last Admin: 02/18/17 21:43 Dose: 1 applic Ranitidine HCl (Zantac Oral Solution -) 150 mg GT DAILY [facility] Last Admin: 02/18/17 10:07 Dose: 150 mg - Objective Vital Signs: Vital Signs Temperature 101.2 F H 02/19/17 06:00 Pulse Rate 97 H 02/19/17 06:00 Respiratory Rate 18 02/19/17 06:00 Blood Pressure 124/60 02/19/17 06:00 O2 Sat by Pulse Oximetry (%) 100 02/18/17 21:00 Cardiovascular: Yes: Murmur, S2 Respiratory: Yes: Diminished Gastrointestinal: Yes: Normal Bowel Sounds, Soft Extremities: Yes: Amputation Labs: CBC, BMP 02/19/17 06:00 02/19/17 06:00 INR, PTT INR 0.94 (0.82-1.09) 01/26/17 16:32 Assessment/Plan - Problems (1) Decubitus ulcer Assessment/Plan: -Chronic -offloading -santyl -wound culture Code(s): L89.90 - PRESSURE ULCER OF UNSPECIFIED SITE, UNSPECIFIED STAGE Qualifiers: Pressure ulcer location: sacral region Pressure ulcer stage: unspecified pressure ulcer stage Qualified Code(s): L89.159 - Pressure ulcer of sacral region, unspecified stage (2) Septic shock Assessment/Plan: -seen by ID -IV abx -repeat BC,UC,WC -febrile 103 -tylenol 650 mg Q6H PRN for fever over 100.0 F -apply cooling blanket Code(s): A41.9 - SEPSIS, UNSPECIFIED ORGANISM; R65.21 - SEVERE SEPSIS WITH SEPTIC SHOCK (3) Type 2 diabetes mellitus with autonomic neuropathy Assessment/Plan: -A1c at 9.6 -endocrinology consult -insulin -BGM Code(s): E11.43 - TYPE 2 DIABETES W DIABETIC AUTONOMIC (POLY)NEUROPATHY (4) UTI (urinary tract infection) Assessment/Plan: -IV abx -ID consult -Gonzales catheter Code(s): N39.0 - URINARY TRACT INFECTION, SITE NOT SPECIFIED Qualifiers: Urinary tract infection type: site unspecified Hematuria presence: without hematuria Qualified Code(s): N39.0 - Urinary tract infection, site not specified (5) Anemia Assessment/Plan: -chronic -H/H low today -transfuse 1 unit PRBC Code(s): D64.9 - ANEMIA, UNSPECIFIED Qualifiers: Anemia type: iron deficiency Iron deficiency anemia type: unspecified iron deficiency Qualified Code(s): D50.9 - Iron deficiency anemia, unspecified
[2017-02-19] MEDS ORDERED: PT OWN MED DRAWER 7, Y5N ONE ×3 (09:36→17:45)
[2017-02-19] MEDS: FERROUS SO4 300 MG/5 ML ORAL SOLN UNIT DOSE CUPS GT SCH (09:39)
[2017-02-19] MEDS: DOXAZOSIN MESYLATE 2 MG TABLET (FP) GT SCH (09:39)
[2017-02-19] MEDS: ESCITALOPRAM OXALATE 5 MG/5 ML GT SCH (09:40)
[2017-02-19] MEDS: RANITIDINE HCL 150 MG/10 ML UNIT-DOSE GT SCH (09:40)
[2017-02-19 10:46] LABS: ANISOCYTOSIS 1+; HYPOCHROMIA 1+; MACROCYTOSIS 1+; PLATELET COMMENTS NO CLUMPING NOTED; PLATELET ESTIMATE ADEQUATE; POLYCHROMASIA 1+; REACTIVE LYMPHOCYTES 2 % (0-80); TOTAL CELLS COUNTED 100
--- NOTE | 2017-02-19 11:04 | PN ---
Progress Note (short form) - Note Progress Note: No overall change in clinical condition. Lethargic. Breathing is non-labored. Intake & Output 02/16/17 02/17/17 02/18/17 02/19/17 23:59 23:59 23:59 23:59 Intake Total 2450 2720 1595 0 Output Total 2504 141 1334 250 Balance 650 2120 595 -250 Weight 91 lb 12.8 oz 107 lb 8 oz 108 lb 3.2 oz 104 lb 9.6 oz Last Vital Signs Temp Pulse Resp BP Pulse Ox 101.6 F H 102 H 26 H 118/59 100 02/19/17 08:35 02/19/17 08:35 02/19/17 08:35 02/19/17 08:35 02/18/17 21:00 Active Medications Acetaminophen (Tylenol Oral Solution -) 650 mg PO Q6H PRN PRN Reason: FEVER OR PAIN Last Admin: 02/19/17 08:47 Dose: 650 mg Acetaminophen (Tylenol Suppository -) 650 mg [place] Q6H PRN PRN Reason: FEVER OR PAIN Last Admin: 02/14/17 20:48 Dose: 650 mg Ascorbic Acid (Vitamin C Oral Solution -) 500 mg GT TID [facility] Last Admin: 02/19/17 06:18 Dose: 500 mg Bacitracin (Bacitracin -) 1 applic TP BID [facility] Last Admin: 02/18/17 21:42 Dose: 1 applic Doxazosin Mesylate (Cardura -) 2 mg GT DAILY [facility] Last Admin: 02/19/17 09:39 Dose: 2 mg Escitalopram Oxalate (Lexapro Oral Solution -) 10 mg GT DAILY [facility] Last Admin: 02/19/17 09:40 Dose: 10 mg Ferrous Sulfate (Feosol) 300 mg GT DAILY [facility] Last Admin: 02/19/17 09:39 Dose: 300 mg Meropenem (Merrem (Restricted To Id) -) 500 mg in 10 mls @ 120 mls/hr IVPUSH Q8H-IV [facility] Last Admin: 02/19/17 02:24 Dose: Not Given Sodium Chloride (1/2 Normal Saline) 1,000 mls @ 75 mls/hr IV ASDIR [facility] Last Admin: 02/18/17 15:49 Dose: 75 mls/hr Insulin Aspart (Novolog Vial Sliding Scale -) 1 vial SQ ACHS [facility]ARRY PRN Reason: Protocol Last Admin: 02/19/17 06:19 Dose: 5 units Insulin Detemir (Levemir Vial) 15 units SQ AM [facility] Last Admin: 02/19/17 06:19 Dose: 15 units Insulin Detemir (Levemir Vial) 10 units SQ HS [facility] Last Admin: 02/18/17 21:42 Dose: 10 units Miscellaneous (Duragesic Patch Waste) 1 each TD PRN PRN Last Admin: 02/17/17 17:48 Dose: 1 each Nystatin (Nystop Powder -) 1 applic TP BID [facility] Last Admin: 02/18/17 21:43 Dose: 1 applic Ranitidine HCl (Zantac Oral Solution -) 150 mg GT DAILY [facility] Last Admin: 02/19/17 09:40 Dose: 150 mg Gen: nonverbal Heart: RRR Lung: decreased breath sounds at the bases Abd: soft, nontender Ext: no edema, bilateral BKA Laboratory Results - last 24 hr 02/18/17 02/18/17 02/18/17 10:30 11:00 13:00 WBC RBC Hgb Hct MCV MCH MCHC RDW Plt Count MPV Total Counted Neutrophils % Neutrophils % (Manual) Lymphocytes % Lymphocytes % (Manual) Monocytes % (Manual) Eosinophils % (Manual) Hypochromia Platelet Estimate Platelet Comment Polychromasia Anisocytosis Macrocytosis Sodium Potassium Chloride Carbon Dioxide Anion Gap BUN Creatinine POC Glucometer 220 Random Glucose Calcium Urine Color Yellow Urine Appearance Cloudy Urine pH 5.0 Ur Specific [place] 1.017 Urine Protein Negative Urine Glucose (UA) 1+ H Urine Ketones Negative Urine Blood 1+ H Urine Nitrite Negative Urine Bilirubin Negative Urine Urobilinogen Negative Ur Leukocyte Esterase 1+ H Urine WBC (Auto) 19 Urine RBC (Auto) 6 Urine Bacteria Rare Urine Mucus Rare Urine Yeast Moderate Blood Type O POSITIVE Antibody Screen Positive H Antibody Identification Anti e Antigen Identification Cancelled Crossmatch See Detail Spec Expiration Date 02/18/17 02/18/17 02/19/17 17:33 21:40 06:00 WBC RBC Hgb Hct MCV MCH MCHC RDW Plt Count MPV Total Counted Neutrophils % Neutrophils % (Manual) Lymphocytes % Lymphocytes % (Manual) Monocytes % (Manual) Eosinophils % (Manual) Hypochromia Platelet Estimate Platelet Comment Polychromasia Anisocytosis Macrocytosis Sodium 152 H Potassium 4.6 Chloride 124 H Carbon Dioxide 21 Anion Gap 7 L BUN 65 H Creatinine 0.8 POC Glucometer 207 211 Random Glucose 263 H Calcium 7.7 L Urine Color Urine Appearance Urine pH Ur Specific [place] Urine Protein Urine Glucose (UA) Urine Ketones Urine Blood Urine Nitrite Urine Bilirubin Urine Urobilinogen Ur Leukocyte Esterase Urine WBC (Auto) Urine RBC (Auto) Urine Bacteria Urine Mucus Urine Yeast Blood Type Antibody Screen Antibody Identification Antigen Identification Crossmatch Spec Expiration Date 02/19/17 02/19/17 06:00 06:13 WBC 9.1 RBC 2.29 L Hgb 7.6 L Hct 24.0 L MCV 105.0 H MCH 33.1 MCHC 31.6 L RDW 20.1 H Plt Count 254 MPV 9.3 Total Counted 100 Neutrophils % No Result Required. Neutrophils % (Manual) 50.0 Lymphocytes % No Result Required. Lymphocytes % (Manual) 44.0 H D Monocytes % (Manual) 3 L Eosinophils % (Manual) 1.0 Hypochromia 1+ Platelet Estimate Adequate Platelet Comment No clumping noted Polychromasia 1+ Anisocytosis 1+ Macrocytosis 1+ Sodium Potassium Chloride Carbon Dioxide Anion Gap BUN Creatinine POC Glucometer 263 Random Glucose Calcium Urine Color Urine Appearance Urine pH Ur Specific [place] Urine Protein Urine Glucose (UA) Urine Ketones Urine Blood Urine Nitrite Urine Bilirubin Urine Urobilinogen Ur Leukocyte Esterase Urine WBC (Auto) Urine RBC (Auto) Urine Bacteria Urine Mucus Urine Yeast Blood Type Antibody Screen Antibody Identification Antigen Identification Crossmatch Spec Expiration Date Problem List - Problems (1) Diabetes Code(s): E11.9 - TYPE 2 DIABETES MELLITUS WITHOUT COMPLICATIONS Qualifiers: Diabetes mellitus type: type 2 Diabetes mellitus complication detail: with other skin ulcer (2) HTN (hypertension) Code(s): I10 - ESSENTIAL (PRIMARY) HYPERTENSION Qualifiers: Hypertension type: essential hypertension Qualified Code(s): I10 - Essential (primary) hypertension (3) ARF (acute renal failure) Code(s): N17.9 - ACUTE KIDNEY FAILURE, UNSPECIFIED (4) Lactic acidosis Code(s): E87.2 - ACIDOSIS (5) UTI (urinary tract infection) Code(s): N39.0 - URINARY TRACT INFECTION, SITE NOT SPECIFIED Qualifiers: Urinary tract infection type: site unspecified Hematuria presence: without hematuria Qualified Code(s): N39.0 - Urinary tract infection, site not specified (6) Decubitus ulcer Code(s): L89.90 - PRESSURE ULCER OF UNSPECIFIED SITE, UNSPECIFIED STAGE Qualifiers: Pressure ulcer location: sacral region Pressure ulcer stage: unspecified pressure ulcer stage Qualified Code(s): L89.159 - Pressure ulcer of sacral region, unspecified stage (7) Severe sepsis Code(s): A41.9 - SEPSIS, UNSPECIFIED ORGANISM; R65.20 - SEVERE SEPSIS WITHOUT SEPTIC SHOCK A/P UTI Sacral Decubitus Ulcer h/o CVA HTN DM Hyperlipidemia Dementia h/o Bilateral BKA - ABX per ID - wound care - enteral feeds - aspiration precautions - DVT prophylaxis - DNR/DNI Dr Galeana
[2017-02-19] MEDS: BACITRACIN 15 GM TUBE TOPICAL OINTMENT TP SCH ×3 (11:32→21:34)
[2017-02-19] MEDS: NYSTATIN POWDER 100,000 UNITS/GM - 15 GM TOPICAL POWDER TP SCH ×2 (11:32→21:34)
--- NOTE | 2017-02-19 11:42 | PN ---
Progress Note, Physician Chief Complaint: The patient is seen in her bed. Lethargic. High grade fever. Cooling blanket being applied. History of Present Illness: The patient is an 81F with a PMH of CVA, dementia, HTN, IDDM, HLD, ARF, thyroid dz, and anemia who presents to the ED via EMS from [facility] for a fever. The patient is nonverbal 2/2 to her dementia. ROS unable to be completed. Per [facility] forms, she has a MRSA Positive decubitus ulcer. - Current Medication List Current Medications: Active Medications Acetaminophen (Tylenol Oral Solution -) 650 mg PO Q6H PRN PRN Reason: FEVER OR PAIN Last Admin: 02/19/17 08:47 Dose: 650 mg Acetaminophen (Tylenol Suppository -) 650 mg [place] Q6H PRN PRN Reason: FEVER OR PAIN Last Admin: 02/14/17 20:48 Dose: 650 mg Ascorbic Acid (Vitamin C Oral Solution -) 500 mg GT TID [facility] Last Admin: 02/19/17 06:18 Dose: 500 mg Bacitracin (Bacitracin -) 1 applic TP BID [facility] Last Admin: 02/19/17 11:32 Dose: 1 applic Doxazosin Mesylate (Cardura -) 2 mg GT DAILY [facility] Last Admin: 02/19/17 09:39 Dose: 2 mg Escitalopram Oxalate (Lexapro Oral Solution -) 10 mg GT DAILY [facility] Last Admin: 02/19/17 09:40 Dose: 10 mg Ferrous Sulfate (Feosol) 300 mg GT DAILY [facility] Last Admin: 02/19/17 09:39 Dose: 300 mg Meropenem (Merrem (Restricted To Id) -) 500 mg in 10 mls @ 120 mls/hr IVPUSH Q8H-IV [facility] Last Admin: 02/19/17 11:31 Dose: Not Given Sodium Chloride (1/2 Normal Saline) 1,000 mls @ 75 mls/hr IV ASDIR [facility] Last Admin: 02/18/17 15:49 Dose: 75 mls/hr Insulin Aspart (Novolog Vial Sliding Scale -) 1 vial SQ ACHS LARRY PRN Reason: Protocol Last Admin: 02/19/17 11:31 Dose: 2 units Insulin Detemir (Levemir Vial) 15 units SQ AM [facility] Last Admin: 02/19/17 06:19 Dose: 15 units Insulin Detemir (Levemir Vial) 10 units SQ HS [facility] Last Admin: 02/18/17 21:42 Dose: 10 units Miscellaneous (Duragesic Patch Waste) 1 each TD PRN PRN Last Admin: 02/17/17 17:48 Dose: 1 each Nystatin (Nystop Powder -) 1 applic TP BID [facility] Last Admin: 02/19/17 11:32 Dose: 1 applic Ranitidine HCl (Zantac Oral Solution -) 150 mg GT DAILY [facility] Last Admin: 02/19/17 09:40 Dose: 150 mg - Objective Vital Signs: Vital Signs Temperature 101.6 F H 02/19/17 08:35 Pulse Rate 102 H 02/19/17 08:35 Respiratory Rate 26 H 02/19/17 08:35 Blood Pressure 118/59 02/19/17 08:35 O2 Sat by Pulse Oximetry (%) 100 02/18/17 21:00 Neck: Yes: Trachea Midline Cardiovascular: Yes: S1, S2 Respiratory: Yes: Regular, Diminished Gastrointestinal: Yes: Normal Bowel Sounds, Soft Genitourinary: Yes: [place] Present Labs: CBC, BMP 02/19/17 06:00 02/19/17 06:00 INR, PTT INR 0.94 (0.82-1.09) 01/26/17 16:32 Problem List - Problems (1) Decubitus ulcer Code(s): L89.90 - PRESSURE ULCER OF UNSPECIFIED SITE, UNSPECIFIED STAGE Qualifiers: Pressure ulcer location: sacral region Pressure ulcer stage: unspecified pressure ulcer stage Qualified Code(s): L89.159 - Pressure ulcer of sacral region, unspecified stage (2) Type 2 diabetes mellitus with autonomic neuropathy Code(s): E11.43 - TYPE 2 DIABETES W DIABETIC AUTONOMIC (POLY)NEUROPATHY (3) ARF (acute renal failure) Code(s): N17.9 - ACUTE KIDNEY FAILURE, UNSPECIFIED (4) Dehydration Code(s): E86.0 - DEHYDRATION (5) Dementia Code(s): F03.90 - UNSPECIFIED DEMENTIA WITHOUT BEHAVIORAL DISTURBANCE (6) Fever Code(s): R50.9 - FEVER, UNSPECIFIED (7) Type 2 diabetes mellitus with other diabetic kidney complication Code(s): E11.29 - TYPE 2 DIABETES MELLITUS W OTH DIABETIC KIDNEY COMPLICATION Assessment/Plan The patient is an 81F with a PMH of CVA, dementia, HTN, IDDM, HLD, ARF, thyroid dz, and anemia who presents to the ED via EMS from [facility] for a fever. The patient is nonverbal 2/2 to her dementia. ROS unable to be completed. Per [facility] forms, she has a MRSA. The patient has on going fever. ID follow up noted. NO IV site. Needs a central line for labs and meds. Tube feeding well tolerated. Aysha Reese MD
[2017-02-19] MEDS ORDERED: LIDOCAINE HCL 1%, 10 MG/ML (20ML VIAL) ONE (15:07)
--- NOTE | 2017-02-19 15:13 | CONSULT ---
Consult Consult Specialty:: general surgery Referred by:: Radha Reason for Consultation:: Poor venous access - History of Present Illness Chief Complaint: severe septic shock History of Present Illness: 81 yo female PMH CVA, dementia, non-verbal, b/l BKA, HTN, IDDM, HLD, thyroid disease, anemia presented to ER one month ago from the hospital at [facility] for fever. Pt has been admitted for sepsis secondary to UTI vs sacral decubitus ulcer. Pt is non-verbal and history was unable to be obtained. we were called to assist with central venous access. - History Source History Provided By: Medical Record Limitations to Obtaining History: Clinical Condition - Past Medical History FOLDED [employer]ER: Yes: CVA, Dementia Cardio/Vascular: Yes: Aortic Stenosis, CHF, HTN, Hyperlipdemia Pulmonary: Yes: COPD Gastrointestinal: Yes: GERD Renal/: Yes: Renal Inusuff Reproductive: Yes: Postmenopausal Endocrine: Yes: Diabetes Mellitus Dermatology: Yes: Other (PU) - Alcohol/Substance Use Hx Alcohol Use: No - Smoking History Smoking history: Never smoked Have you smoked in the past 12 months: No Aproximately how many cigarettes per day: 0 - Social History Usual Living Arrangement: Senior Care History of Recent Travel: No Home Medications - Allergies Allergies/Adverse Reactions: Allergies Allergy/AdvReac Type Severity Reaction Status Date / Time No Known Drug Allergies Allergy Verified 01/26/17 17:31 - Home Medications Home Medications: Ambulatory Orders RX: Acetaminophen Oral Solution [Tylenol 160mg/5mL Oral Solution -] 650 mg GT Q6H PRN 12/08/16 RX: Doxazosin Mesylate [Cardura] 2 mg GT DAILY 12/08/16 RX: Escitalopram Oxalate [Lexapro 5mg/5mL Oral Solution -] 10 mg GT DAILY RX: FENTANYL 12mcg PATCH [DURAGESIC 12mcg PATCH -] 1 each TD Q72H 12/08/16 RX: Ferrous Sulfate *Liquid* [Feosol *Liquid*] 330 mg GT TID 12/08/16 RX: Heparin - 5,000 units IJ BID 12/08/16 RX: Insulin Aspart [Novolog Flexpen] 0 unit SQ TID 12/08/16 RX: Lactobacillus Acidophilus [Acidophilus] 1 each GT DAILY 12/08/16 RX: Naph,Mb-Db/K pH,Mbdb [PHOS-NaK PACKET -] 1 packet GT DAILY 12/08/16 RX: Ranitidine HCl 150 mg GT DAILY 12/08/16 RX: Vitamin B Comp W-C [Nephro-Rafael -] 1 tablet GT DAILY 12/08/16 RX: Ascorbate Calcium [Vitamin C] 500 mg GT Q8H 12/21/16 RX: Vitamin B Comp W-C [Nephro-Rafael -] 1 tablet GT DAILY 12/21/16 RX: Insulin (Levemir) [Levemir Vial] 8 units SQ HS ml 12/31/16 RX: Insulin Sliding Scale [Novolog Vial Sliding Scale -] 1 vial SQ ACHS units 12/31/16 RX: Metronidazole [Flagyl -] 500 mg GT TID tablet 12/31/16 RX: Potassium Chloride [Potassium Chloride Oral Liquid] 10 meq PO DAILY #30 ea 12/31/16 Review of Systems - Review of Systems Constitutional: reports: Fever, Lethargy, Weakness HENT: reports: Difficult Swallowing Neck: reports: Decreased ROM, Stiffness Gastrointestinal: reports: Other (on Tube feeds at 40ml/hr) Genitourinary: reports: Hematuria, Other (UTI) Endocrine: reports: Excessive Sweating, Flushing Hematology/Lymphatic: reports: Easily Bruised Physical Exam Vital Signs: Vital Signs Temperature 101.6 F H 02/19/17 08:35 Pulse Rate 102 H 02/19/17 08:35 Respiratory Rate 26 H 02/19/17 08:35 Blood Pressure 118/59 02/19/17 08:35 O2 Sat by Pulse Oximetry (%) 100 02/18/17 21:00 Vital Signs Period Temp Pulse Resp BP Sys/Chávez Pulse Ox Last 24 Hr 100.4 F-102.3 F 84-102 16-26 110-124/52-70 100 INR, PTT INR 0.94 (0.82-1.09) 01/26/17 16:32 CBC, BMP 02/19/17 06:00 02/19/17 06:00 Constitutional: Yes: No Distress, Cachectic Eyes: Yes: Other (eyes closed, opens to noxious stimulus) HENT: Yes: Atraumatic, Normocephalic Neck: Yes: Supple, Trachea Midline Cardiovascular: Yes: Regular Rate and Rhythm, Murmur, S1, S2 Respiratory: Yes: Regular, CTA Bilaterally, On Nasal O2 Gastrointestinal: Yes: Normal Bowel Sounds, Soft, Other (PEG Rght upper abdomen) Musculoskeletal: Yes: Joint Stiffness, Joint Swelling Extremities: Yes: Amputation (bilateral BKA) Edema: Yes Edema: LUE: 2+, RUE: 2+, LLE: 2+, RLE: 2+ Peripheral Pulses WNL: No (b/l BKA) Integumentary: Yes: Pressure Ulcer (stage 4 sacral decubitus). No: Venous Stasis Changes Neurological: Yes: Lethargy, Unresponsive Psychiatric: Yes: Agitated (moans to noxious stimulation), Other (non responsive ) Labs: CBC, BMP 02/19/17 06:00 02/19/17 06:00 Imaging - Results Chest X-ray: Pending (no sign of pneumothorax post attempt), Image Reviewed Problem List - Problems (1) Septic shock Assessment/Plan: 81 yo female MMP severe septic shock, febrile and dehydrated, has very poor vascular access. Informed consent obtained by phone, after explaining risk benefits and alternatives and answering questions. Held tube feeds in preparation for procedure Labs checked Right IJ TLC placement - Unsuccessful attempt was made, she may be to dehydrated , IJ collapses and can not be aspirated. Follow-up CXR ordered Peripheral IV inserted 20G in right arm by RN IVF resuscitation ordered Consider IR for PICC placement Tuesday02/21/2017 if still needed Thank you for the opportunity to participate in the care of this patient. Code(s): A41.9 - SEPSIS, UNSPECIFIED ORGANISM; R65.21 - SEVERE SEPSIS WITH SEPTIC SHOCK (2) UTI (urinary tract infection) Code(s): N39.0 - URINARY TRACT INFECTION, SITE NOT SPECIFIED Qualifiers: Urinary tract infection type: site unspecified Hematuria presence: without hematuria Qualified Code(s): N39.0 - Urinary tract infection, site not specified (3) Dehydration Assessment/Plan: Peripheral IV inserted IVF bolus and then IV maintance ordered Code(s): E86.0 - DEHYDRATION (4) Decubitus ulcer Code(s): L89.90 - PRESSURE ULCER OF UNSPECIFIED SITE, UNSPECIFIED STAGE Qualifiers: Pressure ulcer location: sacral region Pressure ulcer stage: unspecified pressure ulcer stage Qualified Code(s): L89.159 - Pressure ulcer of sacral region, unspecified stage
[2017-02-19] MEDS ORDERED: ACETAMINOPHEN 1000 MG/100 ML VIAL (NON FORMULARY) IVPB ONE ×2 (16:19→16:41)
--- NOTE | 2017-02-19 16:24 | PROC ---
Central Line Insertion Indication: Poor Venous Access Risks and Benefits Explained: Yes Consent on Chart: Yes Central Line: Triple Lumen Catheter Anesthesia: 1% Lidocaine Sterile Technique: Yes Ultrasound Guided Assistance: Yes Position: Right Internal Jugular Post Insertion: Yes: Bilateral Breath Sounds, Chest X-Ray Ordered (Failed attempt RIJ, Femorals also evalueted ) Sterile Dressing Applied: No (N/A) Remarks: unsuccessful attempt 3 passes under ultrasound visualization. IJ vein collapses and unable to aspirtate. Severely dehydrated intravascularly, CXR checked no pneumothorax post attempt
[2017-02-19] MEDS ORDERED: LACTATED RINGERS SOLUTION 1000 ML INFUS.BAG IV ONE (16:30)
[2017-02-19] MEDS ORDERED: LACTATED RINGERS SOLUTION 1,000 ML IV ONE (16:45)
[2017-02-19] MEDS: SODIUM CHLORIDE 0.45% 1,000 ML IV SCH ×2 (18:29→18:30)
[2017-02-20] MEDS: MEROPENEM 500 MG PUSH 500 MG/10 ML DISP.SYRIN IVPUSH SCH ×3 (02:25→17:47)
[2017-02-20] MEDS: ACETAMINOPHEN 650 MG/20.3 ML ORAL SOLUTION (CUPS) PO PRN ×2 (05:51→22:27)
[2017-02-20] MEDS: ASCORBIC ACID 500 MG/5 ML UNIT DOSE CUP GT SCH ×3 (06:31→22:26)
[2017-02-20] MEDS: INSULIN DETEMIR 100 UNITS/ML MDV SQ SCH ×2 (06:31→22:24)
[2017-02-20] MEDS: INSULIN SLIDING SCALE (NOVOLOG) 1 VIAL SQ SCH ×4 (06:31→22:25)
[2017-02-20] MEDS: SODIUM CHLORIDE 0.45% 1,000 ML IV SCH ×3 (06:51→17:46)
[2017-02-20] MEDS ORDERED: INSULIN DETEMIR 100 UNITS/ML MDV SQ ONE (07:11)
[2017-02-20] MEDS ORDERED: PT OWN MED DRAWER 7, Y5N ONE ×3 (10:14→22:00)
[2017-02-20] MEDS: RANITIDINE HCL 150 MG/10 ML UNIT-DOSE GT SCH (10:15)
[2017-02-20] MEDS: FERROUS SO4 300 MG/5 ML ORAL SOLN UNIT DOSE CUPS GT SCH (10:15)
[2017-02-20] MEDS: ESCITALOPRAM OXALATE 5 MG/5 ML GT SCH (10:16)
[2017-02-20] MEDS: BACITRACIN 15 GM TUBE TOPICAL OINTMENT TP SCH ×2 (10:16→22:24)
[2017-02-20] MEDS: NYSTATIN POWDER 100,000 UNITS/GM - 15 GM TOPICAL POWDER TP SCH ×2 (10:17→22:25)
[2017-02-20] MEDS: DOXAZOSIN MESYLATE 2 MG TABLET (FP) GT SCH (10:17)
--- NOTE | 2017-02-20 11:19 | PN ---
Progress Note (short form) - Note Progress Note: No overall change in clinical condition. Lethargic. Breathing is non-labored. Intake & Output 02/17/17 02/18/17 02/19/17 02/20/17 23:59 23:59 23:59 23:59 Intake Total 2720 1595 2831 1085 Output Total 600 1000 550 300 Balance 2120 595 2281 785 Weight 107 lb 8 oz 108 lb 3.2 oz 104 lb 9.6 oz 106 lb 14.4 oz Last Vital Signs Temp Pulse Resp BP Pulse Ox 100.6 F H 97 H 20 121/63 100 02/19/17 21:00 02/19/17 21:00 02/19/17 21:00 02/19/17 21:00 02/19/17 21:00 Active Medications Acetaminophen (Tylenol Oral Solution -) 650 mg PO Q6H PRN PRN Reason: FEVER OR PAIN Last Admin: 02/20/17 05:51 Dose: 650 mg Acetaminophen (Tylenol Suppository -) 650 mg [place] Q6H PRN PRN Reason: FEVER OR PAIN Last Admin: 02/14/17 20:48 Dose: 650 mg Ascorbic Acid (Vitamin C Oral Solution -) 500 mg GT TID [facility] Last Admin: 02/20/17 06:31 Dose: 500 mg Bacitracin (Bacitracin -) 1 applic TP BID [facility] Last Admin: 02/20/17 10:16 Dose: 1 applic Doxazosin Mesylate (Cardura -) 2 mg GT DAILY [facility] Last Admin: 02/20/17 10:17 Dose: 2 mg Escitalopram Oxalate (Lexapro Oral Solution -) 10 mg GT DAILY [facility] Last Admin: 02/20/17 10:16 Dose: 10 mg Ferrous Sulfate (Feosol) 300 mg GT DAILY [facility] Last Admin: 02/20/17 10:15 Dose: 300 mg Meropenem (Merrem (Restricted To Id) -) 500 mg in 10 mls @ 120 mls/hr IVPUSH Q8H-IV [facility] Last Admin: 02/20/17 10:16 Dose: 120 mls/hr Sodium Chloride (1/2 Normal Saline) 1,000 mls @ 75 mls/hr IV ASDIR [facility] Last Admin: 02/20/17 06:51 Dose: 75 mls/hr Sodium Chloride (1/2 Normal Saline) 1,000 mls @ 75 mls/hr IV ASDIR [facility] Last Admin: 02/19/17 18:29 Dose: 75 mls/hr Insulin Aspart (Novolog Vial Sliding Scale -) 1 vial SQ ACHS [facility] PRN Reason: Protocol Last Admin: 02/20/17 06:31 Dose: 2 units Insulin Detemir (Levemir Vial) 15 units SQ AM [facility] Last Admin: 02/20/17 06:31 Dose: 15 units Insulin Detemir (Levemir Vial) 10 units SQ HS [facility] Last Admin: 02/19/17 21:33 Dose: 10 units Miscellaneous (Duragesic Patch Waste) 1 each TD PRN PRN Last Admin: 02/17/17 17:48 Dose: 1 each Nystatin (Nystop Powder -) 1 applic TP BID [facility] Last Admin: 02/20/17 10:17 Dose: 1 applic Ranitidine HCl (Zantac Oral Solution -) 150 mg GT DAILY [facility] Last Admin: 02/20/17 10:15 Dose: 150 mg Gen: NAD Heart: RRR Lung: decreased breath sounds at the bases Abd: soft, nontender Ext: no edema, bilateral BKA Laboratory Results - last 24 hr 02/19/17 02/19/17 02/19/17 11:27 16:46 21:31 POC Glucometer 234 149 228 02/20/17 05:54 POC Glucometer 246 Problem List - Problems (1) Diabetes Code(s): E11.9 - TYPE 2 DIABETES MELLITUS WITHOUT COMPLICATIONS Qualifiers: Diabetes mellitus type: type 2 Diabetes mellitus complication detail: with other skin ulcer (2) HTN (hypertension) Code(s): I10 - ESSENTIAL (PRIMARY) HYPERTENSION Qualifiers: Hypertension type: essential hypertension Qualified Code(s): I10 - Essential (primary) hypertension (3) ARF (acute renal failure) Code(s): N17.9 - ACUTE KIDNEY FAILURE, UNSPECIFIED (4) Lactic acidosis Code(s): E87.2 - ACIDOSIS (5) UTI (urinary tract infection) Code(s): N39.0 - URINARY TRACT INFECTION, SITE NOT SPECIFIED Qualifiers: Urinary tract infection type: site unspecified Hematuria presence: without hematuria Qualified Code(s): N39.0 - Urinary tract infection, site not specified (6) Decubitus ulcer Code(s): L89.90 - PRESSURE ULCER OF UNSPECIFIED SITE, UNSPECIFIED STAGE Qualifiers: Pressure ulcer location: sacral region Pressure ulcer stage: unspecified pressure ulcer stage Qualified Code(s): L89.159 - Pressure ulcer of sacral region, unspecified stage (7) Severe sepsis Code(s): A41.9 - SEPSIS, UNSPECIFIED ORGANISM; R65.20 - SEVERE SEPSIS WITHOUT SEPTIC SHOCK A/P UTI Sacral Decubitus Ulcer h/o CVA HTN DM Hyperlipidemia Dementia h/o Bilateral BKA - ABX per ID - wound care - enteral feeds - aspiration precautions - DVT prophylaxis - DNR/DNI Dr Galeana
--- NOTE | 2017-02-20 14:08 | PN ---
Progress Note, Physician History of Present Illness: PEG REINSERTED - Current Medication List Current Medications: Active Medications Acetaminophen (Tylenol Oral Solution -) 650 mg PO Q6H PRN PRN Reason: FEVER OR PAIN Last Admin: 02/20/17 05:51 Dose: 650 mg Acetaminophen (Tylenol Suppository -) 650 mg [place] Q6H PRN PRN Reason: FEVER OR PAIN Last Admin: 02/14/17 20:48 Dose: 650 mg Ascorbic Acid (Vitamin C Oral Solution -) 500 mg GT TID [facility] Last Admin: 02/20/17 06:31 Dose: 500 mg Bacitracin (Bacitracin -) 1 applic TP BID [facility] Last Admin: 02/20/17 10:16 Dose: 1 applic Doxazosin Mesylate (Cardura -) 2 mg GT DAILY [facility] Last Admin: 02/20/17 10:17 Dose: 2 mg Escitalopram Oxalate (Lexapro Oral Solution -) 10 mg GT DAILY [facility] Last Admin: 02/20/17 10:16 Dose: 10 mg Ferrous Sulfate (Feosol) 300 mg GT DAILY [facility] Last Admin: 02/20/17 10:15 Dose: 300 mg Meropenem (Merrem (Restricted To Id) -) 500 mg in 10 mls @ 120 mls/hr IVPUSH Q8H-IV [facility] Last Admin: 02/20/17 10:16 Dose: 120 mls/hr Sodium Chloride (1/2 Normal Saline) 1,000 mls @ 75 mls/hr IV ASDIR [facility] Last Admin: 02/20/17 06:51 Dose: 75 mls/hr Sodium Chloride (1/2 Normal Saline) 1,000 mls @ 75 mls/hr IV ASDIR [facility] Last Admin: 02/19/17 18:29 Dose: 75 mls/hr Insulin Aspart (Novolog Vial Sliding Scale -) 1 vial SQ ACHS [facility] PRN Reason: Protocol Last Admin: 02/20/17 11:35 Dose: 2 units Insulin Detemir (Levemir Vial) 15 units SQ AM [facility] Last Admin: 02/20/17 06:31 Dose: 15 units Insulin Detemir (Levemir Vial) 10 units SQ HS [facility] Last Admin: 02/19/17 21:33 Dose: 10 units Miscellaneous (Duragesic Patch Waste) 1 each TD PRN PRN Last Admin: 02/17/17 17:48 Dose: 1 each Nystatin (Nystop Powder -) 1 applic TP BID [facility] Last Admin: 02/20/17 10:17 Dose: 1 applic Ranitidine HCl (Zantac Oral Solution -) 150 mg GT DAILY [facility] Last Admin: 02/20/17 10:15 Dose: 150 mg - Objective Vital Signs: Vital Signs Temperature 101.1 F H 02/20/17 09:00 Pulse Rate 94 H 02/20/17 09:00 Respiratory Rate 20 02/20/17 09:00 Blood Pressure 113/55 02/20/17 09:00 O2 Sat by Pulse Oximetry (%) 96 02/20/17 09:00 Cardiovascular: Yes: S1, S2 Respiratory: Yes: Diminished Gastrointestinal: Yes: Normal Bowel Sounds, Soft Labs: CBC, BMP 02/19/17 06:00 02/19/17 06:00 INR, PTT INR 0.94 (0.82-1.09) 01/26/17 16:32 Assessment/Plan - Problems (1) Decubitus ulcer Assessment/Plan: -Chronic -offloading -santyl -wound culture Code(s): L89.90 - PRESSURE ULCER OF UNSPECIFIED SITE, UNSPECIFIED STAGE Qualifiers: Pressure ulcer location: sacral region Pressure ulcer stage: unspecified pressure ulcer stage Qualified Code(s): L89.159 - Pressure ulcer of sacral region, unspecified stage (2) Septic shock Assessment/Plan: -seen by ID -IV abx -repeat BC,UC,WC -febrile 103 -tylenol 650 mg Q6H PRN for fever over 100.0 F -apply cooling blanket Code(s): A41.9 - SEPSIS, UNSPECIFIED ORGANISM; R65.21 - SEVERE SEPSIS WITH SEPTIC SHOCK (3) Type 2 diabetes mellitus with autonomic neuropathy Assessment/Plan: -A1c at 9.6 -endocrinology consult -insulin -BGM Code(s): E11.43 - TYPE 2 DIABETES W DIABETIC AUTONOMIC (POLY)NEUROPATHY (4) UTI (urinary tract infection) Assessment/Plan: -IV abx -ID consult -Gonzales catheter Code(s): N39.0 - URINARY TRACT INFECTION, SITE NOT SPECIFIED Qualifiers: Urinary tract infection type: site unspecified Hematuria presence: without hematuria Qualified Code(s): N39.0 - Urinary tract infection, site not specified (5) Anemia Assessment/Plan: -chronic -H/H low today -transfuse 1 unit PRBC Code(s): D64.9 - ANEMIA, UNSPECIFIED Qualifiers: Anemia type: iron deficiency Iron deficiency anemia type: unspecified iron deficiency Qualified Code(s): D50.9 - Iron deficiency anemia, unspecified
--- NOTE | 2017-02-20 14:44 | PN ---
Progress Note (short form) - Note Progress Note: Patient seen and examined s/p Laparoscopic appendectomy POD#1 she is stable overnight without complain. reporting pain this morning. She is tolerating diet. reports having voided Problem List - Problems (1) Septic shock Code(s): A41.9 - SEPSIS, UNSPECIFIED ORGANISM; R65.21 - SEVERE SEPSIS WITH SEPTIC SHOCK (2) UTI (urinary tract infection) Code(s): N39.0 - URINARY TRACT INFECTION, SITE NOT SPECIFIED Qualifiers: Urinary tract infection type: site unspecified Hematuria presence: without hematuria Qualified Code(s): N39.0 - Urinary tract infection, site not specified (3) Dehydration Code(s): E86.0 - DEHYDRATION (4) Decubitus ulcer Code(s): L89.90 - PRESSURE ULCER OF UNSPECIFIED SITE, UNSPECIFIED STAGE Qualifiers: Pressure ulcer location: sacral region Pressure ulcer stage: unspecified pressure ulcer stage Qualified Code(s): L89.159 - Pressure ulcer of sacral region, unspecified stage
--- NOTE | 2017-02-20 16:26 | PN ---
Progress Note, Physician Chief Complaint: The patient is seen in her bed. Lethargic. Fever persists. History of Present Illness: The patient is an 81F with a PMH of CVA, dementia, HTN, IDDM, HLD, ARF, thyroid dz, and anemia who presents to the ED via EMS from [facility] for a fever. The patient is nonverbal 2/2 to her dementia. ROS unable to be completed. Per long term forms, she has a MRSA Positive decubitus ulcer. - Current Medication List Current Medications: Active Medications Acetaminophen (Tylenol Oral Solution -) 650 mg PO Q6H PRN PRN Reason: FEVER OR PAIN Last Admin: 02/20/17 05:51 Dose: 650 mg Acetaminophen (Tylenol Suppository -) 650 mg [place] Q6H PRN PRN Reason: FEVER OR PAIN Last Admin: 02/14/17 20:48 Dose: 650 mg Ascorbic Acid (Vitamin C Oral Solution -) 500 mg GT TID [facility] Last Admin: 02/20/17 15:43 Dose: 500 mg Bacitracin (Bacitracin -) 1 applic TP BID [facility] Last Admin: 02/20/17 10:16 Dose: 1 applic Doxazosin Mesylate (Cardura -) 2 mg GT DAILY [facility] Last Admin: 02/20/17 10:17 Dose: 2 mg Escitalopram Oxalate (Lexapro Oral Solution -) 10 mg GT DAILY [facility] Last Admin: 02/20/17 10:16 Dose: 10 mg Ferrous Sulfate (Feosol) 300 mg GT DAILY [facility] Last Admin: 02/20/17 10:15 Dose: 300 mg Meropenem (Merrem (Restricted To Id) -) 500 mg in 10 mls @ 120 mls/hr IVPUSH Q8H-IV [facility] Last Admin: 02/20/17 10:16 Dose: 120 mls/hr Sodium Chloride (1/2 Normal Saline) 1,000 mls @ 75 mls/hr IV ASDIR [facility] Last Admin: 02/20/17 15:43 Dose: 75 mls/hr Sodium Chloride (1/2 Normal Saline) 1,000 mls @ 75 mls/hr IV ASDIR [facility] Last Admin: 02/19/17 18:29 Dose: 75 mls/hr Insulin Aspart (Novolog Vial Sliding Scale -) 1 vial SQ ACHS [facility] PRN Reason: Protocol Last Admin: 02/20/17 11:35 Dose: 2 units Insulin Detemir (Levemir Vial) 15 units SQ AM [facility] Last Admin: 02/20/17 06:31 Dose: 15 units Insulin Detemir (Levemir Vial) 10 units SQ HS [facility] Last Admin: 02/19/17 21:33 Dose: 10 units Miscellaneous (Duragesic Patch Waste) 1 each TD PRN PRN Last Admin: 02/17/17 17:48 Dose: 1 each Nystatin (Nystop Powder -) 1 applic TP BID [facility] Last Admin: 02/20/17 10:17 Dose: 1 applic Ranitidine HCl (Zantac Oral Solution -) 150 mg GT DAILY [facility] Last Admin: 02/20/17 10:15 Dose: 150 mg - Objective Vital Signs: Vital Signs Temperature 100 F H 02/20/17 14:44 Pulse Rate 78 02/20/17 14:44 Respiratory Rate 18 02/20/17 14:44 Blood Pressure 112/70 02/20/17 14:44 O2 Sat by Pulse Oximetry (%) 96 02/20/17 09:00 Constitutional: Yes: Calm Neck: Yes: Trachea Midline Cardiovascular: Yes: S1, S2 Respiratory: Yes: Diminished Gastrointestinal: Yes: Soft, Hypoactive Bowel Sounds Neurological: Yes: Lethargy Labs: CBC, BMP 02/19/17 06:00 02/19/17 06:00 INR, PTT INR 0.94 (0.82-1.09) 01/26/17 16:32 Problem List - Problems (1) Decubitus ulcer Code(s): L89.90 - PRESSURE ULCER OF UNSPECIFIED SITE, UNSPECIFIED STAGE Qualifiers: Pressure ulcer location: sacral region Pressure ulcer stage: unspecified pressure ulcer stage Qualified Code(s): L89.159 - Pressure ulcer of sacral region, unspecified stage (2) Type 2 diabetes mellitus with autonomic neuropathy Code(s): E11.43 - TYPE 2 DIABETES W DIABETIC AUTONOMIC (POLY)NEUROPATHY (3) ARF (acute renal failure) Code(s): N17.9 - ACUTE KIDNEY FAILURE, UNSPECIFIED (4) Dehydration Code(s): E86.0 - DEHYDRATION (5) Dementia Code(s): F03.90 - UNSPECIFIED DEMENTIA WITHOUT BEHAVIORAL DISTURBANCE (6) Fever Code(s): R50.9 - FEVER, UNSPECIFIED (7) Type 2 diabetes mellitus with other diabetic kidney complication Code(s): E11.29 - TYPE 2 DIABETES MELLITUS W OTH DIABETIC KIDNEY COMPLICATION Assessment/Plan The patient is an 81F with a PMH of CVA, dementia, HTN, IDDM, HLD, ARF, thyroid dz, and anemia who presents to the ED via EMS from [facility] for a fever. The patient is nonverbal 2/2 to her dementia. The patient has on going fever. IV fluids started and well tolerated. Will monitor the Renal functions with you. Aysha Reese MD
[2017-02-21] MEDS ORDERED: PT OWN MED DRAWER 7, Y5N ONE ×6 (01:21→22:32)
[2017-02-21] MEDS: MEROPENEM 500 MG PUSH 500 MG/10 ML DISP.SYRIN IVPUSH SCH ×3 (01:28→17:44)
[2017-02-21] MEDS: SODIUM CHLORIDE 0.45% 1,000 ML IV SCH ×2 (01:41→17:05)
[2017-02-21] MEDS: INSULIN SLIDING SCALE (NOVOLOG) 1 VIAL SQ SCH ×4 (06:56→22:21)
[2017-02-21] MEDS: INSULIN DETEMIR 100 UNITS/ML MDV SQ SCH ×2 (06:57→22:20)
[2017-02-21] MEDS: ASCORBIC ACID 500 MG/5 ML UNIT DOSE CUP GT SCH ×3 (06:57→22:22)
[2017-02-21 08:22] LABS: MCH 32.6 pg (25.7-33.7); MCHC 32.8 g/dl (32.0-36.0); MEAN CELL VOLUME 99.6 fl (80-96); MEAN PLT VOLUME 9.5 fl (7.5-11.1); PLATELET COUNT 226 K/MM3 (134-434); RDW 21.2 % (11.6-15.6); WHITE BLOOD COUNT 9.2 K/mm3 (4.0-10.0)
[2017-02-21 08:37] LABS: ALBUMIN 1.7 g/dl (3.4-5.0); ANION GAP 8 (8-16); CALCIUM 7.8 mg/dL (8.5-10.1); CO2 24 mmol/L (21-32); CREATININE 0.6 mg/dL (0.55-1.02); GLUCOSE,RANDOM 175 mg/dL (74-106); SGOT/AST 12 U/L (15-37); SGPT/ALT 7 U/L (12-78)
[2017-02-21 08:38] LABS: ALK PHOS 107 U/L (45-117); BILIRUBIN,TOTAL 0.4 mg/dL (0.2-1.0); TOT PROT 6.4 g/dl (6.4-8.2)
[2017-02-21] MEDS: DOXAZOSIN MESYLATE 2 MG TABLET (FP) GT SCH (10:01)
[2017-02-21] MEDS: FERROUS SO4 300 MG/5 ML ORAL SOLN UNIT DOSE CUPS GT SCH (10:01)
[2017-02-21] MEDS: RANITIDINE HCL 150 MG/10 ML UNIT-DOSE GT SCH (10:01)
[2017-02-21] MEDS: ESCITALOPRAM OXALATE 5 MG/5 ML GT SCH (10:01)
[2017-02-21] MEDS ORDERED: FLUCONAZOLE 50 MG TABLET PO ONE (10:51)
--- NOTE | 2017-02-21 10:51 | PN ---
Progress Note, Physician Chief Complaint: Sepsis Infected decubitus ulcer History of Present Illness: NAD, in bed -febrile last evening -seen by ID -IV abx -BC negative -UC shows yeast - Current Medication List Current Medications: Active Medications Acetaminophen (Tylenol Oral Solution -) 650 mg PO Q6H PRN PRN Reason: FEVER OR PAIN Last Admin: 02/20/17 22:27 Dose: 650 mg Acetaminophen (Tylenol Suppository -) 650 mg [place] Q6H PRN PRN Reason: FEVER OR PAIN Last Admin: 02/14/17 20:48 Dose: 650 mg Ascorbic Acid (Vitamin C Oral Solution -) 500 mg GT TID [facility] Last Admin: 02/21/17 06:57 Dose: 500 mg Bacitracin (Bacitracin -) 1 applic TP BID [facility] Last Admin: 02/20/17 22:24 Dose: 1 applic Doxazosin Mesylate (Cardura -) 2 mg GT DAILY [facility] Last Admin: 02/21/17 10:01 Dose: 2 mg Escitalopram Oxalate (Lexapro Oral Solution -) 10 mg GT DAILY [facility] Last Admin: 02/21/17 10:01 Dose: 10 mg Ferrous Sulfate (Feosol) 300 mg GT DAILY [facility] Last Admin: 02/21/17 10:01 Dose: 300 mg Meropenem (Merrem (Restricted To Id) -) 500 mg in 10 mls @ 120 mls/hr IVPUSH Q8H-IV [facility] Last Admin: 02/21/17 10:02 Dose: 120 mls/hr Sodium Chloride (1/2 Normal Saline) 1,000 mls @ 75 mls/hr IV ASDIR [facility] Last Admin: 02/21/17 01:41 Dose: 75 mls/hr Sodium Chloride (1/2 Normal Saline) 1,000 mls @ 75 mls/hr IV ASDIR [facility] Last Admin: 02/20/17 17:46 Dose: Not Given Insulin Aspart (Novolog Vial Sliding Scale -) 1 vial SQ ACHS [facility] PRN Reason: Protocol Last Admin: 02/21/17 06:56 Dose: Not Given Insulin Detemir (Levemir Vial) 15 units SQ AM [facility] Last Admin: 02/21/17 06:57 Dose: 15 units Insulin Detemir (Levemir Vial) 10 units SQ HS [facility] Last Admin: 02/20/17 22:24 Dose: 10 units Miscellaneous (Duragesic Patch Waste) 1 each TD PRN PRN Last Admin: 02/17/17 17:48 Dose: 1 each Nystatin (Nystop Powder -) 1 applic TP BID [facility] Last Admin: 02/20/17 22:25 Dose: 1 applic Ranitidine HCl (Zantac Oral Solution -) 150 mg GT DAILY [facility] Last Admin: 02/21/17 10:01 Dose: 150 mg - Objective Vital Signs: Vital Signs Temperature 98.9 F 02/21/17 06:00 Pulse Rate 85 02/21/17 06:00 Respiratory Rate 20 02/21/17 06:00 Blood Pressure 100/46 02/21/17 06:00 O2 Sat by Pulse Oximetry (%) 100 02/20/17 20:50 Constitutional: Yes: Well Nourished, No Distress, Calm Cardiovascular: Yes: Regular Rate and Rhythm Respiratory: Yes: Regular Gastrointestinal: Yes: Normal Bowel Sounds Extremities: Yes: Amputation (BLLE) Edema: Yes (RUE) Neurological: Yes: Pre-Existing Deficit Labs: CBC, BMP 02/21/17 06:30 02/21/17 06:30 INR, PTT INR 0.94 (0.82-1.09) 01/26/17 16:32 Problem List - Problems (1) Decubitus ulcer Assessment/Plan: -Chronic -offloading -santyl -wound culture Code(s): L89.90 - PRESSURE ULCER OF UNSPECIFIED SITE, UNSPECIFIED STAGE Qualifiers: Pressure ulcer location: sacral region Pressure ulcer stage: unspecified pressure ulcer stage Qualified Code(s): L89.159 - Pressure ulcer of sacral region, unspecified stage (2) Septic shock Assessment/Plan: -seen by ID -IV abx -repeat BC,UC,WC -febrile last evening -tylenol 650 mg Q6H PRN for fever over 100.0 F -apply cooling blanket Code(s): A41.9 - SEPSIS, UNSPECIFIED ORGANISM; R65.21 - SEVERE SEPSIS WITH SEPTIC SHOCK (3) Type 2 diabetes mellitus with autonomic neuropathy Assessment/Plan: -A1c at 9.6 -endocrinology consult -insulin -BGM Code(s): E11.43 - TYPE 2 DIABETES W DIABETIC AUTONOMIC (POLY)NEUROPATHY (4) UTI (urinary tract infection) Assessment/Plan: -IV abx -ID consult -Gonzales catheter -Repeat UC shows yeast organisms -diflucan 150 mg x 1 Code(s): N39.0 - URINARY TRACT INFECTION, SITE NOT SPECIFIED Qualifiers: Urinary tract infection type: site unspecified Hematuria presence: without hematuria Qualified Code(s): N39.0 - Urinary tract infection, site not specified (5) Anemia Assessment/Plan: -chronic -H/H lat baseline today -transfused 1 unit PRBC on 02/20 Code(s): D64.9 - ANEMIA, UNSPECIFIED Qualifiers: Anemia type: iron deficiency Iron deficiency anemia type: unspecified iron deficiency Qualified Code(s): D50.9 - Iron deficiency anemia, unspecified Assessment/Plan see problem list
[2017-02-21] MEDS ORDERED: FLUCONAZOLE 150 MG TABLET PO ONE (11:00)
[2017-02-21] MEDS: NYSTATIN POWDER 100,000 UNITS/GM - 15 GM TOPICAL POWDER TP SCH ×2 (12:03→22:23)
[2017-02-21] MEDS: BACITRACIN 15 GM TUBE TOPICAL OINTMENT TP SCH ×2 (12:03→22:25)
--- NOTE | 2017-02-21 12:03 | PN ---
Progress Note (short form) - Note Progress Note: PULMONARY Pt nonverbal, fevers persist. Last Vital Signs Temp Pulse Resp BP Pulse Ox 98.1 F 86 20 119/60 100 02/21/17 09:00 02/21/17 09:00 02/21/17 09:00 02/21/17 09:00 02/20/17 20:50 Gen: nonverbal Heart: RRR Lung: decreased breath sounds at the bases Abd: soft, nontender CBC, BMP 02/21/17 06:30 02/21/17 06:30 Active Medications Acetaminophen (Tylenol Oral Solution -) 650 mg PO Q6H PRN PRN Reason: FEVER OR PAIN Last Admin: 02/20/17 22:27 Dose: 650 mg Acetaminophen (Tylenol Suppository -) 650 mg IN Q6H PRN PRN Reason: FEVER OR PAIN Last Admin: 02/14/17 20:48 Dose: 650 mg Ascorbic Acid (Vitamin C Oral Solution -) 500 mg GT TID [facility] Last Admin: 02/21/17 06:57 Dose: 500 mg Bacitracin (Bacitracin -) 1 applic TP BID [facility] Last Admin: 02/20/17 22:24 Dose: 1 applic Doxazosin Mesylate (Cardura -) 2 mg GT DAILY [facility] Last Admin: 02/21/17 10:01 Dose: 2 mg Escitalopram Oxalate (Lexapro Oral Solution -) 10 mg GT DAILY [facility] Last Admin: 02/21/17 10:01 Dose: 10 mg Ferrous Sulfate (Feosol) 300 mg GT DAILY [facility] Last Admin: 02/21/17 10:01 Dose: 300 mg Meropenem (Merrem (Restricted To Id) -) 500 mg in 10 mls @ 120 mls/hr IVPUSH Q8H-IV [facility] Last Admin: 02/21/17 10:02 Dose: 120 mls/hr Sodium Chloride (1/2 Normal Saline) 1,000 mls @ 75 mls/hr IV ASDIR [facility] Last Admin: 02/20/17 17:46 Dose: Not Given Insulin Aspart (Novolog Vial Sliding Scale -) 1 vial SQ ACHS [facility] PRN Reason: Protocol Last Admin: 02/21/17 06:56 Dose: Not Given Insulin Detemir (Levemir Vial) 15 units SQ AM [facility] Last Admin: 02/21/17 06:57 Dose: 15 units Insulin Detemir (Levemir Vial) 10 units SQ HS [facility] Last Admin: 02/20/17 22:24 Dose: 10 units Miscellaneous (Duragesic Patch Waste) 1 each TD PRN PRN Last Admin: 02/17/17 17:48 Dose: 1 each Nystatin (Nystop Powder -) 1 applic TP BID [facility] Last Admin: 02/20/17 22:25 Dose: 1 applic Ranitidine HCl (Zantac Oral Solution -) 150 mg GT DAILY [facility] Last Admin: 02/21/17 10:01 Dose: 150 mg A/P UTI Sacral Decubitus Ulcer h/o CVA HTN DM Hyperlipidemia Dementia h/o Bilateral BKA - antibiotics per ID - monitor fever curve, WBC trend - wound care - enteral feeds - aspiration precautions - DVT prophylaxis - poor overall prognosis, consider palliative care Problem List - Problems (1) Diabetes Code(s): E11.9 - TYPE 2 DIABETES MELLITUS WITHOUT COMPLICATIONS Qualifiers: Diabetes mellitus type: type 2 Diabetes mellitus complication detail: with other skin ulcer (2) HTN (hypertension) Code(s): I10 - ESSENTIAL (PRIMARY) HYPERTENSION Qualifiers: Hypertension type: essential hypertension Qualified Code(s): I10 - Essential (primary) hypertension (3) ARF (acute renal failure) Code(s): N17.9 - ACUTE KIDNEY FAILURE, UNSPECIFIED (4) Lactic acidosis Code(s): E87.2 - ACIDOSIS (5) UTI (urinary tract infection) Code(s): N39.0 - URINARY TRACT INFECTION, SITE NOT SPECIFIED Qualifiers: Urinary tract infection type: site unspecified Hematuria presence: without hematuria Qualified Code(s): N39.0 - Urinary tract infection, site not specified (6) Decubitus ulcer Code(s): L89.90 - PRESSURE ULCER OF UNSPECIFIED SITE, UNSPECIFIED STAGE Qualifiers: Pressure ulcer location: sacral region Pressure ulcer stage: unspecified pressure ulcer stage Qualified Code(s): L89.159 - Pressure ulcer of sacral region, unspecified stage (7) Severe sepsis Code(s): A41.9 - SEPSIS, UNSPECIFIED ORGANISM; R65.20 - SEVERE SEPSIS WITHOUT SEPTIC SHOCK
[2017-02-21] MEDS ORDERED: INSULIN (NOVOLOG) ASPART 100 UNITS/ML 10ML VIAL ONE (12:41)
[2017-02-21 18:31] LABS: MCH 32.6 pg (25.7-33.7); MCHC 32.7 g/dl (32.0-36.0); MEAN CELL VOLUME 99.7 fl (80-96); MEAN PLT VOLUME 9.3 fl (7.5-11.1); PLATELET COUNT 213 K/MM3 (134-434); RDW 20.5 % (11.6-15.6); WHITE BLOOD COUNT 7.1 K/mm3 (4.0-10.0)
[2017-02-21 21:50] LABS: MYELOCYTE 1 % (0-2); TOTAL CELLS COUNTED 100
[2017-02-21 21:51] LABS: ANISOCYTOSIS 1+; PLATELET ESTIMATE ADEQUATE; REACTIVE LYMPHOCYTES 6 % (0-80)
[2017-02-22] MEDS: MEROPENEM 500 MG PUSH 500 MG/10 ML DISP.SYRIN IVPUSH SCH ×3 (01:55→17:11)
[2017-02-22] MEDS ORDERED: PT OWN MED DRAWER 7, Y5N ONE ×4 (05:41→22:20)
[2017-02-22] MEDS: ASCORBIC ACID 500 MG/5 ML UNIT DOSE CUP GT SCH ×3 (05:55→22:24)
[2017-02-22] MEDS: INSULIN SLIDING SCALE (NOVOLOG) 1 VIAL SQ SCH ×4 (06:45→22:16)
[2017-02-22] MEDS: INSULIN DETEMIR 100 UNITS/ML MDV SQ SCH ×2 (06:46→22:16)
[2017-02-22 08:49] LABS: ANION GAP 6 (8-16); CALCIUM 7.3 mg/dL (8.5-10.1); CO2 24 mmol/L (21-32); GLUCOSE,RANDOM 150 mg/dL (74-106); MAGNESIUM 2.2 mg/dL (1.8-2.4)
[2017-02-22 08:50] LABS: CREATININE 0.5 mg/dL (0.55-1.02); PHOSPHOROUS 2.3 mg/dL (2.5-4.9)
--- NOTE | 2017-02-22 10:21 | PN ---
Progress Note, Physician Chief Complaint: Sepsis Infected decubitus ulcer History of Present Illness: NAD, in bed -Right TLC yesterday -seen by Palliative care for hospice consult -afebrile x 24 hours -seen by ID -IV abx -BC negative -UC showed yeast, flucanozole 150 mg x 1 given - Current Medication List Current Medications: Active Medications Acetaminophen (Tylenol Oral Solution -) 650 mg PO Q6H PRN PRN Reason: FEVER OR PAIN Last Admin: 02/20/17 22:27 Dose: 650 mg Acetaminophen (Tylenol Suppository -) 650 mg [place] Q6H PRN PRN Reason: FEVER OR PAIN Last Admin: 02/14/17 20:48 Dose: 650 mg Ascorbic Acid (Vitamin C Oral Solution -) 500 mg GT TID [facility] Last Admin: 02/22/17 05:55 Dose: 500 mg Bacitracin (Bacitracin -) 1 applic TP BID [facility] Last Admin: 02/21/17 22:25 Dose: 1 applic Doxazosin Mesylate (Cardura -) 2 mg GT DAILY [facility] Last Admin: 02/21/17 10:01 Dose: 2 mg Escitalopram Oxalate (Lexapro Oral Solution -) 10 mg GT DAILY [facility] Last Admin: 02/21/17 10:01 Dose: 10 mg Ferrous Sulfate (Feosol) 300 mg GT DAILY [facility] Last Admin: 02/21/17 10:01 Dose: 300 mg Meropenem (Merrem (Restricted To Id) -) 500 mg in 10 mls @ 120 mls/hr IVPUSH Q8H-IV [facility] Last Admin: 02/22/17 01:55 Dose: 120 mls/hr Sodium Chloride (1/2 Normal Saline) 1,000 mls @ 75 mls/hr IV ASDIR [facility] Last Admin: 02/21/17 17:05 Dose: 75 mls/hr Insulin Aspart (Novolog Vial Sliding Scale -) 1 vial SQ ACHS [facility] PRN Reason: Protocol Last Admin: 02/22/17 06:45 Dose: Not Given Insulin Detemir (Levemir Vial) 15 units SQ AM [facility] Last Admin: 02/22/17 06:46 Dose: 15 units Insulin Detemir (Levemir Vial) 10 units SQ HS [facility] Last Admin: 02/21/17 22:20 Dose: 10 units Miscellaneous (Duragesic Patch Waste) 1 each TD PRN PRN Last Admin: 02/17/17 17:48 Dose: 1 each Nystatin (Nystop Powder -) 1 applic TP BID [facility] Last Admin: 02/21/17 22:23 Dose: 1 applic Ranitidine HCl (Zantac Oral Solution -) 150 mg GT DAILY [facility] Last Admin: 02/21/17 10:01 Dose: 150 mg - Objective Vital Signs: Vital Signs Temperature 98.9 F 02/22/17 07:44 Pulse Rate 87 02/22/17 07:44 Respiratory Rate 20 02/22/17 07:44 Blood Pressure 160/64 02/22/17 07:44 O2 Sat by Pulse Oximetry (%) 97 02/21/17 21:00 Constitutional: Yes: Well Nourished, No Distress, Calm Cardiovascular: Yes: Regular Rate and Rhythm Respiratory: Yes: Regular Musculoskeletal: Yes: WNL Extremities: Yes: Amputation (BLLE) Wound/Incision: Yes: Dressing Dry and Intact Neurological: Yes: Pre-Existing Deficit Labs: CBC, BMP 02/21/17 06:30 02/22/17 06:45 INR, PTT INR 0.94 (0.82-1.09) 01/26/17 16:32 Problem List - Problems (1) Decubitus ulcer Assessment/Plan: -Chronic -offloading -santyl Code(s): L89.90 - PRESSURE ULCER OF UNSPECIFIED SITE, UNSPECIFIED STAGE Qualifiers: Pressure ulcer location: sacral region Pressure ulcer stage: unspecified pressure ulcer stage Qualified Code(s): L89.159 - Pressure ulcer of sacral region, unspecified stage (2) Septic shock Assessment/Plan: -seen by ID -IV abx via Right TLC -afebrile -tylenol 650 mg Q6H PRN for fever over 100.0 F -apply cooling blanket if fevers over 102.0 F Code(s): A41.9 - SEPSIS, UNSPECIFIED ORGANISM; R65.21 - SEVERE SEPSIS WITH SEPTIC SHOCK (3) Type 2 diabetes mellitus with autonomic neuropathy Assessment/Plan: -A1c at 9.6 -endocrinology consult -insulin -BGM Code(s): E11.43 - TYPE 2 DIABETES W DIABETIC AUTONOMIC (POLY)NEUROPATHY (4) UTI (urinary tract infection) Assessment/Plan: -IV abx -ID consult -Gonzales catheter -Repeat UC showed yeast organisms -diflucan 150 mg x 1 given yesterday Code(s): N39.0 - URINARY TRACT INFECTION, SITE NOT SPECIFIED Qualifiers: Urinary tract infection type: site unspecified Hematuria presence: without hematuria Qualified Code(s): N39.0 - Urinary tract infection, site not specified (5) Anemia Assessment/Plan: -chronic -H/H lat baseline today -transfused 1 unit PRBC on 02/20 Code(s): D64.9 - ANEMIA, UNSPECIFIED Qualifiers: Anemia type: iron deficiency Iron deficiency anemia type: unspecified iron deficiency Qualified Code(s): D50.9 - Iron deficiency anemia, unspecified Assessment/Plan see problem list Will speak to daughter Gisela.
--- NOTE | 2017-02-22 10:49 | PN ---
Progress Note (short form) - Note Progress Note: PULMONARY Pt nonverbal, no fevers in last day. Last Vital Signs Temp Pulse Resp BP Pulse Ox 98.9 F 87 20 160/64 97 02/22/17 07:44 02/22/17 07:44 02/22/17 07:44 02/22/17 07:44 02/21/17 21:00 Gen: nonverbal Heart: RRR Lung: decreased breath sounds at the bases Abd: soft, nontender Ext: bilateral BKA CBC, BMP 02/21/17 06:30 02/22/17 06:45 Active Medications Acetaminophen (Tylenol Oral Solution -) 650 mg PO Q6H PRN PRN Reason: FEVER OR PAIN Last Admin: 02/20/17 22:27 Dose: 650 mg Acetaminophen (Tylenol Suppository -) 650 mg CO Q6H PRN PRN Reason: FEVER OR PAIN Last Admin: 02/14/17 20:48 Dose: 650 mg Ascorbic Acid (Vitamin C Oral Solution -) 500 mg GT TID [facility] Last Admin: 02/22/17 05:55 Dose: 500 mg Bacitracin (Bacitracin -) 1 applic TP BID [facility] Last Admin: 02/21/17 22:25 Dose: 1 applic Doxazosin Mesylate (Cardura -) 2 mg GT DAILY [facility] Last Admin: 02/21/17 10:01 Dose: 2 mg Escitalopram Oxalate (Lexapro Oral Solution -) 10 mg GT DAILY [facility] Last Admin: 02/21/17 10:01 Dose: 10 mg Ferrous Sulfate (Feosol) 300 mg GT DAILY [facility] Last Admin: 02/21/17 10:01 Dose: 300 mg Meropenem (Merrem (Restricted To Id) -) 500 mg in 10 mls @ 120 mls/hr IVPUSH Q8H-IV [facility] Last Admin: 02/22/17 01:55 Dose: 120 mls/hr Sodium Chloride (1/2 Normal Saline) 1,000 mls @ 75 mls/hr IV ASDIR [facility] Last Admin: 02/21/17 17:05 Dose: 75 mls/hr Insulin Aspart (Novolog Vial Sliding Scale -) 1 vial SQ ACHS [facility] PRN Reason: Protocol Last Admin: 02/22/17 06:45 Dose: Not Given Insulin Detemir (Levemir Vial) 15 units SQ AM [facility] Last Admin: 02/22/17 06:46 Dose: 15 units Insulin Detemir (Levemir Vial) 10 units SQ HS [facility] Last Admin: 02/21/17 22:20 Dose: 10 units Miscellaneous (Duragesic Patch Waste) 1 each TD PRN PRN Last Admin: 02/17/17 17:48 Dose: 1 each Nystatin (Nystop Powder -) 1 applic TP BID [facility] Last Admin: 02/21/17 22:23 Dose: 1 applic Ranitidine HCl (Zantac Oral Solution -) 150 mg GT DAILY [facility] Last Admin: 02/21/17 10:01 Dose: 150 mg A/P UTI Sacral Decubitus Ulcer h/o CVA HTN DM Hyperlipidemia Dementia h/o Bilateral BKA - antibiotics per ID - monitor fever curve, WBC trend - wound care - enteral feeds - aspiration precautions - DVT prophylaxis - poor overall prognosis, consider palliative care Problem List - Problems (1) Diabetes Code(s): E11.9 - TYPE 2 DIABETES MELLITUS WITHOUT COMPLICATIONS Qualifiers: Diabetes mellitus type: type 2 Diabetes mellitus complication detail: with other skin ulcer (2) HTN (hypertension) Code(s): I10 - ESSENTIAL (PRIMARY) HYPERTENSION Qualifiers: Hypertension type: essential hypertension Qualified Code(s): I10 - Essential (primary) hypertension (3) ARF (acute renal failure) Code(s): N17.9 - ACUTE KIDNEY FAILURE, UNSPECIFIED (4) Lactic acidosis Code(s): E87.2 - ACIDOSIS (5) UTI (urinary tract infection) Code(s): N39.0 - URINARY TRACT INFECTION, SITE NOT SPECIFIED Qualifiers: Urinary tract infection type: site unspecified Hematuria presence: without hematuria Qualified Code(s): N39.0 - Urinary tract infection, site not specified (6) Decubitus ulcer Code(s): L89.90 - PRESSURE ULCER OF UNSPECIFIED SITE, UNSPECIFIED STAGE Qualifiers: Pressure ulcer location: sacral region Pressure ulcer stage: unspecified pressure ulcer stage Qualified Code(s): L89.159 - Pressure ulcer of sacral region, unspecified stage (7) Severe sepsis Code(s): A41.9 - SEPSIS, UNSPECIFIED ORGANISM; R65.20 - SEVERE SEPSIS WITHOUT SEPTIC SHOCK
[2017-02-22] MEDS: FERROUS SO4 300 MG/5 ML ORAL SOLN UNIT DOSE CUPS GT SCH (11:18)
[2017-02-22] MEDS: RANITIDINE HCL 150 MG/10 ML UNIT-DOSE GT SCH (11:19)
[2017-02-22] MEDS: ESCITALOPRAM OXALATE 5 MG/5 ML GT SCH (11:19)
[2017-02-22] MEDS: DOXAZOSIN MESYLATE 2 MG TABLET (FP) GT SCH (11:20)
[2017-02-22] MEDS: NYSTATIN POWDER 100,000 UNITS/GM - 15 GM TOPICAL POWDER TP SCH ×2 (11:21→22:22)
--- NOTE | 2017-02-22 11:50 | PN ---
Progress Note, Physician History of Present Illness: Lethargic, non verbal. Antibiotics resumed because of persistant temps and tachypnea Temps down on cooling blanket Blood c/s no growth - Current Medication List Current Medications: Active Medications Acetaminophen (Tylenol Oral Solution -) 650 mg PO Q6H PRN PRN Reason: FEVER OR PAIN Last Admin: 02/20/17 22:27 Dose: 650 mg Acetaminophen (Tylenol Suppository -) 650 mg [place] Q6H PRN PRN Reason: FEVER OR PAIN Last Admin: 02/14/17 20:48 Dose: 650 mg Ascorbic Acid (Vitamin C Oral Solution -) 500 mg GT TID [facility] Last Admin: 02/22/17 05:55 Dose: 500 mg Bacitracin (Bacitracin -) 1 applic TP BID [facility] Last Admin: 02/21/17 22:25 Dose: 1 applic Doxazosin Mesylate (Cardura -) 2 mg GT DAILY [facility] Last Admin: 02/22/17 11:20 Dose: 2 mg Escitalopram Oxalate (Lexapro Oral Solution -) 10 mg GT DAILY [facility] Last Admin: 02/22/17 11:19 Dose: 10 mg Ferrous Sulfate (Feosol) 300 mg GT DAILY [facility] Last Admin: 02/22/17 11:18 Dose: 300 mg Meropenem (Merrem (Restricted To Id) -) 500 mg in 10 mls @ 120 mls/hr IVPUSH Q8H-IV [facility] Last Admin: 02/22/17 11:18 Dose: 120 mls/hr Sodium Chloride (1/2 Normal Saline) 1,000 mls @ 75 mls/hr IV ASDIR [facility] Last Admin: 02/21/17 17:05 Dose: 75 mls/hr Insulin Aspart (Novolog Vial Sliding Scale -) 1 vial SQ ACHS [facility] PRN Reason: Protocol Last Admin: 02/22/17 11:26 Dose: Not Given Insulin Detemir (Levemir Vial) 15 units SQ AM [facility] Last Admin: 02/22/17 06:46 Dose: 15 units Insulin Detemir (Levemir Vial) 10 units SQ HS [facility] Last Admin: 02/21/17 22:20 Dose: 10 units Miscellaneous (Duragesic Patch Waste) 1 each TD PRN PRN Last Admin: 02/17/17 17:48 Dose: 1 each Nystatin (Nystop Powder -) 1 applic TP BID [facility] Last Admin: 02/22/17 11:21 Dose: 1 applic Ranitidine HCl (Zantac Oral Solution -) 150 mg GT DAILY [facility] Last Admin: 02/22/17 11:19 Dose: 150 mg - Objective Vital Signs: Vital Signs Temperature 98.9 F 02/22/17 07:44 Pulse Rate 87 02/22/17 07:44 Respiratory Rate 20 02/22/17 07:44 Blood Pressure 160/64 02/22/17 07:44 O2 Sat by Pulse Oximetry (%) 97 02/21/17 21:00 Constitutional: Yes: No Distress, Pallor Cardiovascular: Yes: Regular Rate and Rhythm, Tachycardia, S1, S2 Respiratory: Yes: Diminished Gastrointestinal: Yes: Normal Bowel Sounds, Soft. No: Tenderness Extremities: Yes: Other (Bilateral BKA) Integumentary: Yes: Other (Stage IV scaral decubitus) Labs: CBC, BMP 02/21/17 06:30 02/22/17 06:45 INR, PTT INR 0.94 (0.82-1.09) 01/26/17 16:32 Assessment/Plan Persistant high grade fever Hx resistant pathogens Dementia Continue empiric meropenem. Goal of care to be discussed with family Contact precautions
[2017-02-22] MEDS ORDERED: FENTANYL PATCH WASTE MC PRN (12:50)
[2017-02-22] MEDS ORDERED: fentaNYL 12mcg/hr PATCH.TD72 TD SCH (13:00)
[2017-02-22] MEDS: BACITRACIN 15 GM TUBE TOPICAL OINTMENT TP SCH ×2 (14:06→22:24)
[2017-02-22] MEDS: SODIUM CHLORIDE 0.45% 1,000 ML IV SCH ×3 (14:07→23:01)
--- NOTE | 2017-02-22 17:07 | PN ---
Progress Note (short form) - Note Progress Note: Renal follow up for Hypernatremia Pt seen and examined at the bedside febrile more awake today has been off cooling blanket making urine on IVF and tube feeds Vital Signs Temperature 101 F H 02/22/17 15:22 Pulse Rate 98 H 02/22/17 15:22 Respiratory Rate 18 02/22/17 15:22 Blood Pressure 120/56 02/22/17 10:00 O2 Sat by Pulse Oximetry (%) 97 02/21/17 21:00 Intake & Output 02/19/17 02/20/17 02/21/17 02/22/17 23:59 23:59 23:59 23:59 Intake Total 2831 3140 1986 1505 Output Total 550 950 650 500 Balance 2281 2190 1336 1005 Weight 47.446 kg 48.489 kg 49.396 kg 52.163 kg NAD not alert RRR CTA (anterior exam) soft NT/ND 1+ UE edema and sacral edema CBC, BMP 02/21/17 06:30 02/22/17 06:45 Current Medications Acetaminophen (Tylenol Oral Solution -) 650 mg PO Q6H PRN PRN Reason: FEVER OR PAIN Last Admin: 02/20/17 22:27 Dose: 650 mg Acetaminophen (Tylenol Suppository -) 650 mg [place] Q6H PRN PRN Reason: FEVER OR PAIN Last Admin: 02/14/17 20:48 Dose: 650 mg Ascorbic Acid (Vitamin C Oral Solution -) 500 mg GT TID [facility] Last Admin: 02/22/17 14:07 Dose: 500 mg Bacitracin (Bacitracin -) 1 applic TP BID [facility] Last Admin: 02/22/17 14:06 Dose: 1 applic Doxazosin Mesylate (Cardura -) 2 mg GT DAILY [facility] Last Admin: 02/22/17 11:20 Dose: 2 mg Escitalopram Oxalate (Lexapro Oral Solution -) 10 mg GT DAILY [facility] Last Admin: 02/22/17 11:19 Dose: 10 mg Fentanyl (Duragesic 12mcg Patch -) 1 patch TD Q72H [facility] Stop: 03/01/17 12:50 Last Admin: 02/22/17 14:06 Dose: 1 patch Ferrous Sulfate (Feosol) 300 mg GT DAILY [facility] Last Admin: 02/22/17 11:18 Dose: 300 mg Meropenem (Merrem (Restricted To Id) -) 500 mg in 10 mls @ 120 mls/hr IVPUSH Q8H-IV [facility] Last Admin: 02/22/17 11:18 Dose: 120 mls/hr Sodium Chloride (1/2 Normal Saline) 1,000 mls @ 75 mls/hr IV ASDIR [facility] Last Admin: 02/22/17 14:07 Dose: 75 mls/hr Insulin Aspart (Novolog Vial Sliding Scale -) 1 vial SQ ACHS [facility] PRN Reason: Protocol Last Admin: 02/22/17 11:26 Dose: Not Given Insulin Detemir (Levemir Vial) 15 units SQ AM [facility] Last Admin: 02/22/17 06:46 Dose: 15 units Insulin Detemir (Levemir Vial) 10 units SQ HS [facility] Last Admin: 02/21/17 22:20 Dose: 10 units Miscellaneous (Duragesic Patch Waste) 1 each TD PRN PRN Last Admin: 02/17/17 17:48 Dose: 1 each Miscellaneous (Duragesic Patch Waste) 1 each MC PRN PRN PRN Reason: PAIN Nystatin (Nystop Powder -) 1 applic TP BID [facility] Last Admin: 02/22/17 11:21 Dose: 1 applic Ranitidine HCl (Zantac Oral Solution -) 150 mg GT DAILY [facility] Last Admin: 02/22/17 11:19 Dose: 150 mg 81 year old woman with PMhx of CVA, dementia, non-verbal, b/l BKA, HTN, IDDM, HLD, thyroid disease, anemia presented to ER from [facility] for fever. Pt known to our service from prior admissions for hypernatrema and GIANNI. #Acute Renal Injury with Hypernatremia in setting of Fever/Sepsis Renal function is at baseline serum na also improved getting 1/2 Ns and oral water bolous hold water bolous for now continue IVF for next 12 hours (pt remains febrile) continue supportive care and Abx prognosis remains very poor. Vahid Manzano DO
[2017-02-22] MEDS: ACETAMINOPHEN 650 MG/20.3 ML ORAL SOLUTION (CUPS) PO PRN (17:11)
[2017-02-22] MEDS: FENTANYL PATCH WASTE TD PRN (17:13)
[2017-02-22] MEDS ORDERED: INSULIN (NOVOLOG) ASPART 100 UNITS/ML 10ML VIAL ONE (22:02)
[2017-02-23] MEDS ORDERED: PT OWN MED DRAWER 7, Y5N ONE ×2 (02:04→10:45)
[2017-02-23] MEDS: MEROPENEM 500 MG PUSH 500 MG/10 ML DISP.SYRIN IVPUSH SCH ×2 (02:20→10:52)
[2017-02-23] MEDS: ASCORBIC ACID 500 MG/5 ML UNIT DOSE CUP GT SCH ×2 (06:03→14:00)
[2017-02-23] MEDS: INSULIN SLIDING SCALE (NOVOLOG) 1 VIAL SQ SCH ×2 (06:19→10:56)
[2017-02-23] MEDS: INSULIN DETEMIR 100 UNITS/ML MDV SQ SCH (06:19)
[2017-02-23 08:24] LABS: ANION GAP 7 (8-16); CALCIUM 7.5 mg/dL (8.5-10.1); CO2 21 mmol/L (21-32); CREATININE 0.4 mg/dL (0.55-1.02); GLUCOSE,RANDOM 142 mg/dL (74-106)
[2017-02-23 10:08] VITALS: PULSE 88
[2017-02-23] MEDS: SODIUM CHLORIDE 0.45% 1,000 ML IV SCH (10:51)
[2017-02-23] MEDS: DOXAZOSIN MESYLATE 2 MG TABLET (FP) GT SCH (10:55)
[2017-02-23] MEDS: RANITIDINE HCL 150 MG/10 ML UNIT-DOSE GT SCH (10:55)
[2017-02-23] MEDS: NYSTATIN POWDER 100,000 UNITS/GM - 15 GM TOPICAL POWDER TP SCH (10:55)
[2017-02-23] MEDS: FERROUS SO4 300 MG/5 ML ORAL SOLN UNIT DOSE CUPS GT SCH (10:55)
[2017-02-23] MEDS: BACITRACIN 15 GM TUBE TOPICAL OINTMENT TP SCH (10:55)
[2017-02-23] MEDS: ESCITALOPRAM OXALATE 5 MG/5 ML GT SCH (10:56)
--- NOTE | 2017-02-23 11:51 | PN ---
Progress Note (short form) - Note Progress Note: Renal follow up for Hypernatremia Pt seen and examined at the bedside not febrile this am no overnight events on IVF making urine via [place] Vital Signs Temperature 99.7 F H 02/23/17 07:42 Pulse Rate 88 02/23/17 10:08 Respiratory Rate 20 02/23/17 07:42 Blood Pressure 105/45 02/23/17 07:42 O2 Sat by Pulse Oximetry (%) 99 02/23/17 10:08 Intake & Output 02/20/17 02/21/17 02/22/17 02/23/17 23:59 23:59 23:59 23:59 Intake Total 3140 1986 3485 1780 Output Total 950 650 700 300 Balance 2190 1336 2785 1480 Weight 48.489 kg 49.396 kg 52.163 kg 52.39 kg NAD not alert RRR CTA (anterior exam) soft NT/ND 1+ UE edema and sacral edema CBC, BMP 02/21/17 06:30 02/23/17 06:50 Laboratory Tests 02/23/17 06:50 Calcium 7.5 L Current Medications Acetaminophen (Tylenol Oral Solution -) 650 mg PO Q6H PRN PRN Reason: FEVER OR PAIN Last Admin: 02/22/17 17:11 Dose: 650 mg Acetaminophen (Tylenol Suppository -) 650 mg [place] Q6H PRN PRN Reason: FEVER OR PAIN Last Admin: 02/14/17 20:48 Dose: 650 mg Ascorbic Acid (Vitamin C Oral Solution -) 500 mg GT TID [facility] Last Admin: 02/23/17 06:03 Dose: 500 mg Bacitracin (Bacitracin -) 1 applic TP BID [facility] Last Admin: 02/23/17 10:55 Dose: 1 applic Doxazosin Mesylate (Cardura -) 2 mg GT DAILY [facility] Last Admin: 02/23/17 10:55 Dose: 2 mg Escitalopram Oxalate (Lexapro Oral Solution -) 10 mg GT DAILY [facility] Last Admin: 02/23/17 10:56 Dose: 10 mg Fentanyl (Duragesic 12mcg Patch -) 1 patch TD Q72H [facility] Stop: 03/01/17 12:50 Last Admin: 02/22/17 14:06 Dose: 1 patch Ferrous Sulfate (Feosol) 300 mg GT DAILY [facility] Last Admin: 02/23/17 10:55 Dose: 300 mg Meropenem (Merrem (Restricted To Id) -) 500 mg in 10 mls @ 120 mls/hr IVPUSH Q8H-IV [facility] Last Admin: 02/23/17 10:52 Dose: 120 mls/hr Insulin Aspart (Novolog Vial Sliding Scale -) 1 vial SQ ACHS [facility] PRN Reason: Protocol Last Admin: 02/23/17 10:56 Dose: Not Given Insulin Detemir (Levemir Vial) 15 units SQ AM [facility] Last Admin: 02/23/17 06:19 Dose: 15 units Insulin Detemir (Levemir Vial) 10 units SQ HS [facility] Last Admin: 02/22/17 22:16 Dose: 10 units Miscellaneous (Duragesic Patch Waste) 1 each TD PRN PRN Last Admin: 02/22/17 17:13 Dose: 1 each Miscellaneous (Duragesic Patch Waste) 1 each MC PRN PRN PRN Reason: PAIN Nystatin (Nystop Powder -) 1 applic TP BID [facility] Last Admin: 02/23/17 10:55 Dose: 1 applic Ranitidine HCl (Zantac Oral Solution -) 150 mg GT DAILY [facility] Last Admin: 02/23/17 10:55 Dose: 150 mg 81 year old woman with PMhx of CVA, dementia, non-verbal, b/l BKA, HTN, IDDM, HLD, thyroid disease, anemia presented to ER from [facility] for fever. Pt known to our service from prior admissions for hypernatrema and GIANNI. #Acute Renal Injury with Hypernatremia in setting of Fever/Sepsis Renal function is at baseline Serum Na is now at baseline as well can d/c IVF (pt is not febrile any longer) increase free water to 50cc per hour Trend BMP daily overall prognosis is poor Vahid Manzano DO
--- NOTE | 2017-02-23 14:06 | PN ---
Progress Note (short form) - Note Progress Note: PULMONARY Pt nonverbal, above appreciated. Pt now palliative care being transferred to [place]. Last Vital Signs Temp Pulse Resp BP Pulse Ox 99.7 F H 88 20 105/45 99 02/23/17 07:42 02/23/17 10:08 02/23/17 07:42 02/23/17 07:42 02/23/17 10:08 Gen: nonverbal Heart: RRR Lung: decreased breath sounds at the bases Abd: soft, nontender Ext: bilateral BKA CBC, BMP 02/21/17 06:30 02/23/17 06:50 Active Medications Acetaminophen (Tylenol Oral Solution -) 650 mg PO Q6H PRN PRN Reason: FEVER OR PAIN Last Admin: 02/22/17 17:11 Dose: 650 mg Acetaminophen (Tylenol Suppository -) 650 mg [place] Q6H PRN PRN Reason: FEVER OR PAIN Last Admin: 02/14/17 20:48 Dose: 650 mg Ascorbic Acid (Vitamin C Oral Solution -) 500 mg GT TID [facility] Last Admin: 02/23/17 06:03 Dose: 500 mg Bacitracin (Bacitracin -) 1 applic TP BID [facility] Last Admin: 02/23/17 10:55 Dose: 1 applic Doxazosin Mesylate (Cardura -) 2 mg GT DAILY [facility] Last Admin: 02/23/17 10:55 Dose: 2 mg Escitalopram Oxalate (Lexapro Oral Solution -) 10 mg GT DAILY [facility] Last Admin: 02/23/17 10:56 Dose: 10 mg Fentanyl (Duragesic 12mcg Patch -) 1 patch TD Q72H [facility] Stop: 03/01/17 12:50 Last Admin: 02/22/17 14:06 Dose: 1 patch Ferrous Sulfate (Feosol) 300 mg GT DAILY [facility] Last Admin: 02/23/17 10:55 Dose: 300 mg Meropenem (Merrem (Restricted To Id) -) 500 mg in 10 mls @ 120 mls/hr IVPUSH Q8H-IV [facility] Last Admin: 02/23/17 10:52 Dose: 120 mls/hr Insulin Aspart (Novolog Vial Sliding Scale -) 1 vial SQ ACHS [facility] PRN Reason: Protocol Last Admin: 02/23/17 10:56 Dose: Not Given Insulin Detemir (Levemir Vial) 15 units SQ AM [facility] Last Admin: 02/23/17 06:19 Dose: 15 units Insulin Detemir (Levemir Vial) 10 units SQ HS [facility] Last Admin: 02/22/17 22:16 Dose: 10 units Miscellaneous (Duragesic Patch Waste) 1 each TD PRN PRN Last Admin: 02/22/17 17:13 Dose: 1 each Miscellaneous (Duragesic Patch Waste) 1 each MC PRN PRN PRN Reason: PAIN Nystatin (Nystop Powder -) 1 applic TP BID [facility] Last Admin: 02/23/17 10:55 Dose: 1 applic Ranitidine HCl (Zantac Oral Solution -) 150 mg GT DAILY [facility] Last Admin: 02/23/17 10:55 Dose: 150 mg A/P UTI Sacral Decubitus Ulcer h/o CVA HTN DM Hyperlipidemia Dementia h/o Bilateral BKA - antibiotics per ID - monitor fever curve, WBC trend - wound care - enteral feeds - aspiration precautions - DVT prophylaxis - poor overall prognosis, agree with hospice placement Problem List - Problems (1) Diabetes Code(s): E11.9 - TYPE 2 DIABETES MELLITUS WITHOUT COMPLICATIONS Qualifiers: Diabetes mellitus type: type 2 Diabetes mellitus complication detail: with other skin ulcer (2) HTN (hypertension) Code(s): I10 - ESSENTIAL (PRIMARY) HYPERTENSION Qualifiers: Hypertension type: essential hypertension Qualified Code(s): I10 - Essential (primary) hypertension (3) ARF (acute renal failure) Code(s): N17.9 - ACUTE KIDNEY FAILURE, UNSPECIFIED (4) Lactic acidosis Code(s): E87.2 - ACIDOSIS (5) UTI (urinary tract infection) Code(s): N39.0 - URINARY TRACT INFECTION, SITE NOT SPECIFIED Qualifiers: Urinary tract infection type: site unspecified Hematuria presence: without hematuria Qualified Code(s): N39.0 - Urinary tract infection, site not specified (6) Decubitus ulcer Code(s): L89.90 - PRESSURE ULCER OF UNSPECIFIED SITE, UNSPECIFIED STAGE Qualifiers: Pressure ulcer location: sacral region Pressure ulcer stage: unspecified pressure ulcer stage Qualified Code(s): L89.159 - Pressure ulcer of sacral region, unspecified stage (7) Severe sepsis Code(s): A41.9 - SEPSIS, UNSPECIFIED ORGANISM; R65.20 - SEVERE SEPSIS WITHOUT SEPTIC SHOCK
--- NOTE | 2017-02-23 14:58 | PN ---
Progress Note, Physician Chief Complaint: Sepsis Infected decubitus ulcer History of Present Illness: NAD, in bed -Right TLC yesterday -seen by Palliative care for hospice consult -febrile yesterday and today -seen by ID -IV abx -BC negative - Current Medication List Current Medications: Active Medications Acetaminophen (Tylenol Oral Solution -) 650 mg PO Q6H PRN PRN Reason: FEVER OR PAIN Last Admin: 02/22/17 17:11 Dose: 650 mg Acetaminophen (Tylenol Suppository -) 650 mg [place] Q6H PRN PRN Reason: FEVER OR PAIN Last Admin: 02/14/17 20:48 Dose: 650 mg Ascorbic Acid (Vitamin C Oral Solution -) 500 mg GT TID [facility] Last Admin: 02/23/17 06:03 Dose: 500 mg Bacitracin (Bacitracin -) 1 applic TP BID [facility] Last Admin: 02/23/17 10:55 Dose: 1 applic Doxazosin Mesylate (Cardura -) 2 mg GT DAILY [facility] Last Admin: 02/23/17 10:55 Dose: 2 mg Escitalopram Oxalate (Lexapro Oral Solution -) 10 mg GT DAILY [facility] Last Admin: 02/23/17 10:56 Dose: 10 mg Fentanyl (Duragesic 12mcg Patch -) 1 patch TD Q72H [facility] Stop: 03/01/17 12:50 Last Admin: 02/22/17 14:06 Dose: 1 patch Ferrous Sulfate (Feosol) 300 mg GT DAILY [facility] Last Admin: 02/23/17 10:55 Dose: 300 mg Meropenem (Merrem (Restricted To Id) -) 500 mg in 10 mls @ 120 mls/hr IVPUSH Q8H-IV [facility] Last Admin: 02/23/17 10:52 Dose: 120 mls/hr Insulin Aspart (Novolog Vial Sliding Scale -) 1 vial SQ ACHS [facility] PRN Reason: Protocol Last Admin: 02/23/17 10:56 Dose: Not Given Insulin Detemir (Levemir Vial) 15 units SQ AM [facility] Last Admin: 02/23/17 06:19 Dose: 15 units Insulin Detemir (Levemir Vial) 10 units SQ HS [facility] Last Admin: 02/22/17 22:16 Dose: 10 units Miscellaneous (Duragesic Patch Waste) 1 each TD PRN PRN Last Admin: 02/22/17 17:13 Dose: 1 each Miscellaneous (Duragesic Patch Waste) 1 each MC PRN PRN PRN Reason: PAIN Nystatin (Nystop Powder -) 1 applic TP BID [facility] Last Admin: 02/23/17 10:55 Dose: 1 applic Ranitidine HCl (Zantac Oral Solution -) 150 mg GT DAILY [facility] Last Admin: 02/23/17 10:55 Dose: 150 mg - Objective Vital Signs: Vital Signs Temperature 99.7 F H 02/23/17 07:42 Pulse Rate 88 02/23/17 10:08 Respiratory Rate 20 02/23/17 07:42 Blood Pressure 105/45 02/23/17 07:42 O2 Sat by Pulse Oximetry (%) 99 02/23/17 10:08 Constitutional: Yes: Well Nourished, No Distress, Calm Cardiovascular: Yes: Regular Rate and Rhythm Respiratory: Yes: Regular Neurological: Yes: Pre-Existing Deficit Labs: CBC, BMP 02/21/17 06:30 02/23/17 06:50 INR, PTT INR 0.94 (0.82-1.09) 01/26/17 16:32 Problem List - Problems (1) Decubitus ulcer Assessment/Plan: -Chronic -offloading -santyl Code(s): L89.90 - PRESSURE ULCER OF UNSPECIFIED SITE, UNSPECIFIED STAGE Qualifiers: Pressure ulcer location: sacral region Pressure ulcer stage: unspecified pressure ulcer stage Qualified Code(s): L89.159 - Pressure ulcer of sacral region, unspecified stage (2) Septic shock Assessment/Plan: -seen by ID -IV abx via Right TLC -febrile -tylenol 650 mg Q6H PRN for fever over 100.0 F -apply cooling blanket if fevers over 102.0 F Code(s): A41.9 - SEPSIS, UNSPECIFIED ORGANISM; R65.21 - SEVERE SEPSIS WITH SEPTIC SHOCK (3) Type 2 diabetes mellitus with autonomic neuropathy Assessment/Plan: -A1c at 9.6 -endocrinology consult -insulin -BGM Code(s): E11.43 - TYPE 2 DIABETES W DIABETIC AUTONOMIC (POLY)NEUROPATHY (4) UTI (urinary tract infection) Assessment/Plan: -IV abx -ID consult -Gonzales catheter Code(s): N39.0 - URINARY TRACT INFECTION, SITE NOT SPECIFIED Qualifiers: Urinary tract infection type: site unspecified Hematuria presence: without hematuria Qualified Code(s): N39.0 - Urinary tract infection, site not specified (5) Anemia Assessment/Plan: -chronic -transfused 1 unit PRBC on 02/20 Code(s): D64.9 - ANEMIA, UNSPECIFIED Qualifiers: Anemia type: iron deficiency Iron deficiency anemia type: unspecified iron deficiency Qualified Code(s): D50.9 - Iron deficiency anemia, unspecified Assessment/Plan see problem list Over all prognosis poor Going to [place] for hospice care
--- NOTE | 2017-02-23 15:03 | DS ---
Physical Examination Vital Signs: Vital Signs Temperature 99.7 F H 02/23/17 07:42 Pulse Rate 88 02/23/17 10:08 Respiratory Rate 20 02/23/17 07:42 Blood Pressure 105/45 02/23/17 07:42 O2 Sat by Pulse Oximetry (%) 99 02/23/17 10:08 Constitutional: Yes: Well Nourished, No Distress, Calm Cardiovascular: Yes: Regular Rate and Rhythm Respiratory: Yes: Regular Neurological: Yes: Pre-Existing Deficit Labs: CBC, BMP 02/21/17 06:30 02/23/17 06:50 Discharge Summary Reason For Visit: INFECTED DECUBITUS ULCER Current Active Problems Decubitus ulcer (Acute) Septic shock (Acute) Type 2 diabetes mellitus with autonomic neuropathy (Acute) UTI (urinary tract infection) (Acute) Hospital Course: The patient is an 81F with a PMH of CVA, dementia, HTN, IDDM, HLD, ARF, thyroid dz, and anemia who presents to the ED via EMS from [facility] for a fever. The patient is nonverbal 2/2 to her dementia. ROS unable to be completed. Per skilled nursing forms, she has a MRSA positive decubitus ulcer. patient has had multiple admission in past for fever- last admission was pna and colitis- in Er found to have temp 102, wbc in 14, lactic acid 2.7 and elevated bgm got zosyn and vancomycin Upon evaluation she was found to have UTI: Microbiology 02/18/17 10:35 Blood - Peripheral Venous Blood Culture - Final NO GROWTH AFTER 5 DAYS INCUBATION 02/18/17 10:30 Blood - Peripheral Venous Blood Culture - Final NO GROWTH AFTER 5 DAYS INCUBATION 02/14/17 13:40 Blood - Peripheral Venous Blood Culture - Final NO GROWTH AFTER 5 DAYS INCUBATION 02/14/17 13:40 Blood - Peripheral Venous Blood Culture - Final NO GROWTH AFTER 5 DAYS INCUBATION 02/18/17 11:00 Urine - Urine Gonzales Urine Culture - Final Yeast Like Organism 02/06/17 13:49 Blood - Peripheral Venous Blood Culture - Final NO GROWTH AFTER 5 DAYS INCUBATION 02/06/17 13:49 Blood - Peripheral Venous Blood Culture - Final NO GROWTH AFTER 5 DAYS INCUBATION 02/06/17 14:48 Urine - Urine Gonzales Urine Culture - Final Klebsiella Pneumoniae - Esbl 02/06/17 14:48 Stool Clostridium difficile Antigen (JAKY) - Final 02/06/17 14:48 Stool Clostridium difficile Toxin Assay - Final 01/28/17 16:00 Blood - Peripheral Venous Blood Culture - Final NO GROWTH AFTER 5 DAYS INCUBATION 01/28/17 16:00 Blood - Peripheral Venous Blood Culture - Final NO GROWTH AFTER 5 DAYS INCUBATION 01/26/17 15:30 Blood - Peripheral Venous Blood Culture - Final NO GROWTH AFTER 5 DAYS INCUBATION 01/26/17 16:32 Blood - Peripheral Venous Blood Culture - Final NO GROWTH AFTER 5 DAYS INCUBATION 01/28/17 09:10 Urine - Urine Gonzales Urine Culture - Final 01/26/17 16:30 Urine - Urine - Catheterized Urine Culture - Final Proteus Mirabilis She was treated with IV merapenum. This is chronic problem. She was seen by multi specialty: ID, Pulmonary, Nephrology, Endocrinology and Hematology who suggested poor over all prognosis. She continues to have fever regardless of IV abx administration. Palliative consult was also called in who spoke to daughter Gisela, who eventually agreed to end of life care and that patient be transferred to [facility] for further management. Condition: Guarded - Instructions Disposition: TRANSFER ACUTE CARE/OTHER HOSP - Home Medications Comprehensive Discharge Medication List: Ambulatory Orders Acetaminophen Oral Solution [Tylenol 160mg/5mL Oral Solution -] 650 mg GT Q6H PRN 12/08/16 Doxazosin Mesylate [Cardura] 2 mg GT DAILY 12/08/16 Escitalopram Oxalate [Lexapro 5mg/5mL Oral Solution -] 10 mg GT DAILY 12/08/16 FENTANYL 12mcg PATCH [DURAGESIC 12mcg PATCH -] 1 each TD Q72H 12/08/16 Ferrous Sulfate *Liquid* [Feosol *Liquid*] 330 mg GT TID 12/08/16 Heparin - 5,000 units IJ BID 12/08/16 Insulin Aspart [Novolog Flexpen] 0 unit SQ TID 12/08/16 Lactobacillus Acidophilus [Acidophilus] 1 each GT DAILY 12/08/16 Naph,Mb-Db/K pH,Mbdb [PHOS-NaK PACKET -] 1 packet GT DAILY 12/08/16 Ranitidine HCl 150 mg GT DAILY 12/08/16 Vitamin B Comp W-C [Nephro-Rafael -] 1 tablet GT DAILY 12/08/16 Ascorbate Calcium [Vitamin C] 500 mg GT Q8H 12/21/16 Vitamin B Comp W-C [Nephro-Rafael -] 1 tablet GT DAILY 12/21/16 Insulin (Levemir) [Levemir Vial] 8 units SQ HS ml 12/31/16 Insulin Sliding Scale [Novolog Vial Sliding Scale -] 1 vial SQ ACHS units 12/31 Metronidazole [Flagyl -] 500 mg GT TID tablet 12/31/16 Potassium Chloride [Potassium Chloride Oral Liquid] 10 meq PO DAILY #30 ea 12/31
[2017-02-23 15:42] VITALS: BP 126/59; TEMP 99.6
== END 2017-02-23 16:47 | disposition hospice, inpatient (51) | DRG 871 ==
LOC: JER 13:32 → JERBED 17:44 → J8W 01-27 00:03
PROVIDERS: ADMIT Family Medicine; ATTEND Family Medicine
PROC: 3E0G76Z Introduction of Nutritional Substance into Upper GI, Via Natural or Artificial Opening (ICD-10-PCS; 2017-01-26)
PROC: 0D20XUZ Change Feeding Device in Upper Intestinal Tract, External Approach (ICD-10-PCS; principal; 2017-01-30)
PROC: 05JY3ZZ Inspection of Upper Vein, Percutaneous Approach (ICD-10-PCS; 2017-02-19)
PROC: 30233N1 Transfusion of Nonautologous Red Blood Cells into Peripheral Vein, Percutaneous Approach (ICD-10-PCS; 2017-02-20)
PROC: 02HV33Z Insertion of Infusion Device into Superior Vena Cava, Percutaneous Approach (ICD-10-PCS; 2017-02-21)
PROC: B548ZZA Ultrasonography of Superior Vena Cava, Guidance (ICD-10-PCS; 2017-02-21)
DX: A41.9 Sepsis, unspecified organism (principal); R65.21 Severe sepsis with septic shock; L89.154 Pressure ulcer of sacral region, stage 4; N39.0 Urinary tract infection, site not specified; N17.9 Acute kidney failure, unspecified; E87.2 Acidosis; Z43.1 Encounter for attention to gastrostomy; E87.0 Hyperosmolality and hypernatremia; R64 Cachexia; F03.90 Unspecified dementia, unspecified severity, without behavioral disturbance, psychotic disturbance, mood disturbance, and anxiety; Z86.73 Personal history of transient ischemic attack (TIA), and cerebral infarction without residual deficits; D64.9 Anemia, unspecified; Z79.4 Long term (current) use of insulin; E78.5 Hyperlipidemia, unspecified; Z89.512 Acquired absence of left leg below knee; Z89.511 Acquired absence of right leg below knee; E87.5 Hyperkalemia; E11.43 Type 2 diabetes mellitus with diabetic autonomic (poly)neuropathy; D63.8 Anemia in other chronic diseases classified elsewhere; L72.8 Other follicular cysts of the skin and subcutaneous tissue; Z66 Do not resuscitate; R19.7 Diarrhea, unspecified
CPT/HCPCS: 36415; 36430; 36556; 71010-TC; 74000-TC; 77001-TC; 80048; 80053; 81003; 81015; 82728; 82803; 82947; 83036; 83540; 83550; 83605; 83735; 84100; 85025; 85027; 85610; 85730; 86850; 86870; 86880; 86900; 86901; 86902; 86922; 87040; 87077; 87086; 87186; 87324; 87449; 93005; 93010; 99282-25; C1751; G0480; J1644; J3243; P9038; P9058